=== PATIENT | male | born 1995 | race Caucasian/White ===

== ENCOUNTER 2017-11-06 00:49 | Emergency (ER) | payer MEDICAID, OTHER ==
[~2017-11-06] VITALS: Ht 177.8 cm; Wt 108.9 kg
--- OUTSIDE RECORDS SUMMARY | 2017-11-06 00:59 | XMS REPORT | Clinical Summary ---
Author Author Admin, LAMBERT Organization [facility] Address Unknown Phone Unavailable Allergies, Adverse Reactions, Alerts Allergy Name Reaction Description Start Date Severity Status Provider MYCINS * Critical Active Иван Mooney MD BENADRYL Critical Active Hector Love MD TYLENOL Critical Active Hector Love MD PHENERGAN Critical Active Hector Love MD ROCEPHIN Critical Active Hector Love MD Conditions or Problems Problem Name Problem Code Onset Date Status Entry Date Provider Comment Standard Description Annotate HYPERTENSION 401.9 Active Hector Love MD Unspecified essential hypertension FH DIABETES V18.0 Resolved Hector Love MD Family history of diabetes mellitus BRONCHITIS, ACUTE 466.0 Resolved Hector Love MD Acute bronchitis KNEE SPRAIN, LEFT 844.9 Resolved Hector Love MD Sprain of unspecified site of knee and leg U R I 465.9 Resolved Hector Love MD Acute upper respiratory infections of unspecified site LIVER REPLACED BY TRANSPLANT V42.7 Active Lucinda Baez Liver replaced by transplant COUGH 786.2 Resolved Hector Love MD Cough COUGH 786.2 Resolved Hector Love MD Cough COSTOCHRONDRITIS 733.6 Resolved Hector Love MD Tietze's disease SINUSITIS, ACUTE 461.9 Resolved Hector Love MD Acute sinusitis, unspecified FEVER UNSPECIFIED 780.60 Resolved Hector Love MD Fever, unspecified Tinea corporis 110.5 Resolved Hector Love MD Dermatophytosis of the body Sinusitis 461.9 Resolved Hector Love MD Acute sinusitis, unspecified Fever 780.60 07/19/2013 Resolved Hector Love MD Fever, unspecified Memory impairment 780.9 Inactive Hector Love MD Other general symptoms Memory loss 780.93 Active Hector Love MD Memory loss Sinusitis, frontal, acute 461.1 Resolved Hector Love MD Acute frontal sinusitis NEED FOR PROPHYLACTIC VACCINATION WITH STREPTOCOCCUS PNEUMONIAE (PNEUMOCOCCUS) AND INFLUENZA V06.6 Resolved Hector Love MD Need for prophylactic vaccination and inoculation against Streptococcus pneumoniae [pneumococcus] and influenza Gastroenteritis, viral, acute 008.8 Resolved Martha Montejo APRN Intestinal infection due to other organism, not elsewhere classified Bronchitis 490 Resolved Hector Love MD Bronchitis, not specified as acute or chronic Pharyngitis 462 Resolved Hector Love MD Acute pharyngitis Ingrown toenail 703.0 Resolved Hector Love MD Ingrowing nail Ingrown toenail, right 703.0 Resolved Hector Love MD Ingrowing nail Alopecia 704.00 Active Hector Love MD Alopecia, unspecified Upper respiratory infection, viral 465.9 Active Hector Love MD Acute upper respiratory infections of unspecified site Pharyngitis 462 Active Иван Mooney MD Acute pharyngitis FH DIABETES ICD-V18.0 Inactive Hector Love MD BRONCHITIS, ACUTE ICD-466.0 Inactive Hector Love MD KNEE SPRAIN, LEFT ICD-844.9 Inactive Hector Love MD U R I ICD-465.9 Inactive Hector Love MD COUGH ICD-786.2 Inactive Hector Love MD COSTOCHRONDRITIS ICD-733.6 Inactive Hector Love MD SINUSITIS, ACUTE ICD-461.9 Inactive Hector Love MD FEVER UNSPECIFIED ICD-780.60 Inactive Hector Love MD Tinea corporis ICD-110.5 Inactive Hector Love MD Sinusitis ICD-461.9 Inactive Hector Love MD Fever ICD-780.60 Inactive Hector Love MD Sinusitis, frontal, acute ICD-461.1 Inactive Hector Love MD NEED FOR PROPHYLACTIC VACCINATION WITH STREPTOCOCCUS PNEUMONIAE (PNEUMOCOCCUS) AND INFLUENZA ICD-V06.6 Inactive Hector Love MD Gastroenteritis, viral, acute ICD-008.8 Inactive Martha Montejo APRN Bronchitis ICD-490 Inactive Hector Love MD 2014 Pharyngitis ICD-462 Inactive Hector Love MD Ingrown toenail ICD-703.0 Inactive Hector Love MD Ingrown toenail, right ICD-703.0 Nils Love MD Medication List Medication Instructions Start Date Stop Date Generic Name NDC Status Provider Patient Instruction AMOXICILLIN 500 MG TABS Take two tablets by mouth every 12 hours for 10 days AMOXICILLIN 09162588751 Active Иван Mooney MD Active VITAMIN C 500 MG CHEW TAB ASCORBIC ACID 14853376879 Active Иван Mooney MD Active PREDNISONE 20 MG TAB 2 po qd x 4 days PREDNISONE 87393598583 No Longer Active Hector Love MD Active HYDROCODONE-ACETAMINOPHEN 5-325 MG TABS 1/2 to 1 po q 4 hours prn pain 11/06 HYDROCODONE-ACETAMINOPHEN 84344392309 No Longer Active Hector Love MD Active FLONASE ALLERGY RELIEF 50 MCG/ACT NASAL SUSP 2 spray each nostril daily prn allergies FLUTICASONE PROPIONATE 33754968309 Active Hector Love MD Active AUGMENTIN 875-125 MG TAB 1 po BID x 10 days AMOXICILLIN-POT CLAVULANATE 89025386248 No Longer Active Hector Love MD Active FLONASE ALLERGY RELIEF 50 MCG/ACT NASAL SUSP 2 sprays each nostril daily PRN allergies FLUTICASONE PROPIONATE 44175395980 No Longer Active Hector Love MD Active AMOXICILLIN 500 MG CAPS 1 cap by mouth three times a day AMOXICILLIN 49184441544 No Longer Active Jillina Frazell RADHA Active KEFLEX 500 MG CAP 1 tab po tid CEPHALEXIN 44422486034 No Longer Active Jillina Frazell [employer] Active AMOXICILLIN 500 MG TABS 2 tabs twice a day for 10 days AMOXICILLIN 88201444730 No Longer Active Jillina Frazell [employer] Active ZYRTEC ALLERGY 10 MG CAPS 1 po qd CETIRIZINE HCL 29951144229 Active Hector Love MD Active PROGRAF 1 MG CAPS 2 tabs po bid TACROLIMUS 07017110034 Active Hector Love MD Active ZOFRAN 4 MG TABS 1 po q6hr PRN Nausea ONDANSETRON HCL 06270010842 No Longer Active Ramona Diggs LPN Active AMOXICILLIN 500 MG CAPS 2 po BID x 10 days AMOXICILLIN 39426164362 No Longer Active Martha Montejo APRN Active AUGMENTIN 875-125 MG TAB 1 tab by mouth twice daily with food AMOXICILLIN-POT CLAVULANATE 26367373117 No Longer Active Hector Love MD Active LEVAQUIN 500 MG TABS 1 pill by mouth daily LEVOFLOXACIN 47295278687 No Longer Active Jen Crystal MD PhD Active LISINOPRIL 5 MG TABS 1.5 tab qd LISINOPRIL 61147090338 Active Jen Crystal MD PhD Active KETOCONAZOLE 2 % CREA apply twice a day to rash KETOCONAZOLE 97757430587 No Longer Active Hector Love MD Active AUGMENTIN 875-125 MG TAB 1 tab by mouth twice daily with food AMOXICILLIN-POT CLAVULANATE 88784696673 No Longer Active Иван Mooney MD Active LOTRISONE 0.05-1 % CREAM Apply twice a day to affected area 07/19 CLOTRIMAZOLE-BETAMETHASONE 61554868963 No Longer Active Иван Mooney MD Active FEXOFENADINE HCL 180 MG TABS 1 Daily FEXOFENADINE HCL 75479762820 No Longer Active Hector Love MD Active PROGRAF 0.5 MG CAPS Take one by mouth daily with 1 mg TACROLIMUS 88962462541 No Longer Active Hector Love MD Active AMOXICILLIN 500 MG CAPS 2 po BID x 10 days AMOXICILLIN 82982438138 No Longer Active Hector Love MD Active RAPAMUNE 1 MG TABS 3 tabs in the am SIROLIMUS 70822884948 No Longer Active Hector Love MD Active AMOXICILLIN 500 MG CAPS 2 po BID x 10 days AMOXICILLIN 73948702434 No Longer Active Hector Love MD Active LORTAB 5 5-500 MG TABS 1/2 to 1 tablet by mouth every 4 hours as needed for pain HYDROCODONE-ACETAMINOPHEN 57499475488 No Longer Active Hector Love MD Active FLUTICASONE PROPIONATE 50 MCG/ACT SUSP INSTILL 2 SPRAYS IN EACH NOSTRIL Q D FLUTICASONE PROPIONATE 00783879153 No Longer Active Hector Love MD Active PROGRAF 1 MG CAPS 1 po bid TACROLIMUS 76606002583 No Longer Active Hector Love MD Active AMOXICILLIN 875 MG TABS 1 tab by mouth twice daily AMOXICILLIN 99707438688 No Longer Active Hector Love MD Active AMOXICILLIN 500 MG CAPS 2 po BID x 10 days AMOXICILLIN 91106752360 No Longer Active Hector Love MD Active AUGMENTIN 875-125 MG TAB 1 tab by mouth twice daily with food AMOXICILLIN-POT CLAVULANATE 78132940417 No Longer Active Hector Love MD Active AZITHROMYCIN 250 MG TABS 2 po qd x 1 day, then 1 po qd x 4 days AZITHROMYCIN 83077168274 No Longer Active Hector Love MD Active CETIRIZINE HCL 10 MG TABS 1 PO Q D CETIRIZINE HCL 95942493314 No Longer Active Waleska Mammoth Active PROGRAF 1 MG CAPS 1 po bid PROGRAF 1 MG CAPS 265182 TACROLIMUS Inactive FLUTICASONE PROPIONATE 50 MCG/ACT SUSP INSTILL 2 SPRAYS IN EACH NOSTRIL Q D FLUTICASONE PROPIONATE 50 MCG/ACT SUSP 1091215 FLUTICASONE PROPIONATE Inactive LORTAB 5 5-500 MG TABS 1/2 to 1 tablet by mouth every 4 hours as needed for pain LORTAB 5 5-500 MG TABS HYDROCODONE- ACETAMINOPHEN Inactive RAPAMUNE 1 MG TABS 3 tabs in the am RAPAMUNE 1 MG TABS 052620 SIROLIMUS Inactive PROGRAF 0.5 MG CAPS Take one by mouth daily with 1 mg PROGRAF 0.5 MG CAPS 221693 TACROLIMUS Inactive FEXOFENADINE HCL 180 MG TABS 1 Daily FEXOFENADINE HCL 180 MG TABS 132661 FEXOFENADINE HCL Inactive LOTRISONE 0.05-1 % CREAM Apply twice a day to affected area 07/19 LOTRISONE 0.05-1 % CREAM 988751 CLOTRIMAZOLE-BETAMETHASONE Inactive KETOCONAZOLE 2 % CREA apply twice a day to rash KETOCONAZOLE 2 % CREA 295342 KETOCONAZOLE Inactive AUGMENTIN 875-125 MG TAB 1 tab by mouth twice daily with food AUGMENTIN 875-125 MG TAB 450488 AMOXICILLIN-POT CLAVULANATE Inactive ZOFRAN 4 MG TABS 1 po q6hr PRN Nausea ZOFRAN 4 MG TABS 944391 ONDANSETRON HCL Inactive AMOXICILLIN 500 MG TABS 2 tabs twice a day for 10 days AMOXICILLIN 500 MG TABS 299665 AMOXICILLIN Inactive FLONASE ALLERGY RELIEF 50 MCG/ACT NASAL SUSP 2 sprays each nostril daily PRN allergies FLONASE ALLERGY RELIEF 50 MCG/ACT NASAL SUSP 1362862 FLUTICASONE PROPIONATE Inactive HYDROCODONE-ACETAMINOPHEN 5-325 MG TABS 1/2 to 1 po q 4 hours prn pain 11/06 HYDROCODONE-ACETAMINOPHEN 5-325 MG TABS 218991 HYDROCODONE- ACETAMINOPHEN Inactive AMOXICILLIN 500 MG CAPS 2 po BID x 10 days AMOXICILLIN 500 MG CAPS 030295 AMOXICILLIN Inactive AMOXICILLIN 875 MG TABS 1 tab by mouth twice daily AMOXICILLIN 875 MG TABS 423451 AMOXICILLIN Inactive AMOXICILLIN 500 MG CAPS 2 po BID x 10 days AMOXICILLIN 500 MG CAPS 809622 AMOXICILLIN Inactive AMOXICILLIN 500 MG CAPS 2 po BID x 10 days AMOXICILLIN 500 MG CAPS 141475 AMOXICILLIN Inactive AUGMENTIN 875-125 MG TAB 1 tab by mouth twice daily with food AUGMENTIN 875-125 MG TAB 851660 AMOXICILLIN-POT CLAVULANATE Inactive LEVAQUIN 500 MG TABS 1 pill by mouth daily LEVAQUIN 500 MG TABS 136577 LEVOFLOXACIN Inactive AMOXICILLIN 500 MG CAPS 2 po BID x 10 days AMOXICILLIN 500 MG CAPS 580290 AMOXICILLIN Inactive AMOXICILLIN 500 MG CAPS 1 cap by mouth three times a day AMOXICILLIN 500 MG CAPS 842661 AMOXICILLIN Inactive AUGMENTIN 875-125 MG TAB 1 po BID x 10 days AUGMENTIN 875-125 MG TAB 501010 AMOXICILLIN-POT CLAVULANATE Inactive PREDNISONE 20 MG TAB 2 po qd x 4 days PREDNISONE 20 MG TAB 051133 PREDNISONE Inactive Advance Directives Directive Description Start Date PERMISSION TO SHARE Immunizations Vaccine Administration Date Value Standard Description Seasonal influenza vaccine, injectable, preservative free, for > 3 years old ( Afluria, FluLaval, Fluzone, Fluvirin, Fluarix, Agriflu(>=18 yo)) Fluzone preservative free (>=3 yrs.) [[id number]] Influenza, seasonal, injectable, preservative free Adacel (Tetanus, reduced Diphtheria, and acellular Pertussis Immunization) Adacel [DGL866] tetanus toxoid, reduced diphtheria toxoid, and acellular pertussis vaccine, adsorbed DPT immunization #5 DTaP oral polio vaccine (OPV) #4 Historical poliovirus vaccine, unspecified formulation MMR (measles, mumps, rubella) virus immunization #2 MMR DPT immunization #4 DTaP Hemophilus influenza B immunization #4 Hibtitre Haemophilus influenzae type b vaccine, conjugate unspecified formulation MMR (measles, mumps, rubella) virus immunization #1 MMR Hemophilus influenza B immunization #3 Hibtitre Haemophilus influenzae type b vaccine, conjugate unspecified formulation oral polio vaccine (OPV) #3 Historical poliovirus vaccine, unspecified formulation DPT immunization #3 DPT hepatitis B vaccine #3 Historical hepatitis B vaccine, unspecified formulation Hemophilus influenza B immunization #2 Hibtitre Haemophilus influenzae type b vaccine, conjugate unspecified formulation oral polio vaccine (OPV) #2 Historical poliovirus vaccine, unspecified formulation DPT immunization #2 DPT hepatitis B vaccine #2 given Historical hepatitis B vaccine, unspecified formulation Hemophilus influenza B immunization #1 Hibtitre Haemophilus influenzae type b vaccine, conjugate unspecified formulation oral polio vaccine (OPV) #1 Historical poliovirus vaccine, unspecified formulation DPT immunization #1 DPT hepatitis B vaccine #1 given Historical hepatitis B vaccine, unspecified formulation Vital Signs Date Name Value Unit Range Description blood pressure, diastolic - 8462-4 75 mm[Hg] BP [place] blood pressure, systolic - 8480-6 127 mm[Hg] BP sys pulse rate E&M - 8867-4 90 /min Heart rate temperature E&M 97.0 [degF] Body temperature weight E&M - 3141-9 233.5 [lb_av] Weight Measured blood pressure, diastolic - 8462-4 80 mm[Hg] BP [place] blood pressure, systolic - 8480-6 136 mm[Hg] BP sys pulse rate E&M - 8867-4 90 /min Heart rate temperature E&M 97.4 [degF] Body temperature weight E&M - 3141-9 237.6 [lb_av] Weight Measured Diagnostic Results Date Name Value Unit Range Description Lab Report: Thyroid Stimulating Hormone (L), Free Thyroxine (L) - Chemistry TSH 2.88 m[iU]/mL 0.36-3.74 thyroxine, serum, free 0.97 ng/dL 0.76-1.46 Encounters Code Encounter Date Provider Facility CPT-49450 Level 3 Est. Patient 16:31:04 CDT Иван Mooney MD [facility] CPT-12598 Level 4 Est. Patient 12:02:18 CDT Hector Love MD [facility] CPT-53752 Level 3 Est. Patient 16:14:45 CDT Hector Love MD [facility] CPT-17973 Level 3 Est. Patient 16:53:35 CDT Иван Mooney MD [facility] CPT-41730 Level 3 Est. Patient 15:57:13 CDT Martha Montejo RADHA [facility] CPT-97435 Level 3 Est. 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 Patient 14:50:45 CDT Hector Love MD [facility] CPT-73929 Level 3 Est. Patient 21:17:30 CDT Jen Crystal MD PhD [facility] CPT-12199 Level 3 Est. Patient 09:32:55 CDT Hector Love MD [facility] CPT-87802 Level 3 Est. Patient 15:11:08 B[employer]DOZER PRESS OPERATOR Иван Mooney MD [facility] CPT-21969 Level 3 Est. Patient 16:38:53 B[employer]DOZER PRESS OPERATOR Hector Loev MD [facility] CPT-94290 Level 3 Est. Patient 15:46:05 CDT Hector Love MD [facility] CPT-72645 Level 3 Est. Patient 13:59:39 CDT Hector Love MD [facility] CPT-09170 Level 3 Est. Patient 14:44:46 B[employer]DOZER PRESS OPERATOR Hector Love MD [facility] CPT-02319 Level 3 Est. Patient 17:12:27 CDT Hector Love MD [facility] CPT-67657 Level 3 Est. Patient 15:30:32 CDT Hector Love MD [facility] CPT-96392 Level 3 Est. Patient 14:24:52 CDT Иван Mooney MD [facility] CPT-44844 Level 3 Est. Patient 14:08:38 B[employer]DOZER PRESS OPERATOR Hector Love MD [facility] Procedures Code Procedure Name Date Entry Date Standard Description CPT-000 Give Appropriate Flu Vaccine 16:22:23 BULLDOZER PRESS OPERATOR CPT-55502 Free T4 - LAB USE ONLY 11:38:58 CDT CPT-40229 TSH - LAB USE ONLY 11:38:58 CDT CPT-37931 Venipuncture Draw Fee 11:38:58 CDT CPT-01587 Fluzone Quadrivalent Intramuscular Suspension 0.5 ML 16: 12:26 B[employer]DOZER PRESS OPERATOR CPT-18308 Immunization Single Admin 16:12:26 BULLDOZER PRESS OPERATOR CPT-J0561 Bicillin LA 1,200,000 u (PCN G Benzathine) 16:40:23 CDT CPT-57397 Abx/Therapy Injection 16:40:22 CDT CPT-J0561 Bicillin LA 1,200,000 u (PCN G Benzathine) 16:15:35 CDT CPT-15492 Immunization Single Admin 16:11:28 BULLDOZER PRESS OPERATOR CPT-57780 Fluzone Quadrivalent Intramuscular Suspension 0.5 ML 16: 11:28 BULLDOZER PRESS OPERATOR CPT-59398 Administration single or combination vaccine inc oral 13 :57:23 CDT CPT-78491 Menactra Intramuscular Injectable 13:57:23 CDT CPT-36377 First Vx Component - Ix admin via ID IM or jet inj without physician counseling 16:42:17 BULLDOZER PRESS OPERATOR CPT-96186 Fluzone preservative free (>=3 yrs.) 16:42:17 BULLDOZER PRESS OPERATOR 06/03 CPT-73209 Venipuncture Draw Fee 16:29:01 CDT CPT-76292 Chest 2V Frontal and Lat 16:23:56 CDT CPT-43085 Administration single or combination vaccine inc oral 13 :39:17 BULLDOZER PRESS OPERATOR CPT-01934 Tdap 13:39:17 BULLDOZER PRESS OPERATOR
--- OUTSIDE RECORDS SUMMARY | 2017-11-06 01:00 | XMS REPORT | Clinical Summary ---
Author Author Admin, LAMBERT Organization [facility] [employer] Address Unknown Phone Unavailable Allergies, Adverse Reactions, [...] Gastroenteritis, viral, acute 008.8 Resolved Martha Montejo VOICE STUDIES DIRECTOR Intestinal infection due to other organism, not [...] 462 Active Иван Mooney MD Acute pharyngitis Pre employment physical examination V70.0 Active Manish Castrejon VOICE STUDIES DIRECTOR Routine general medical examination at a health care facility Exposure to mononucleosis V01.79 Active Manish Castrejon VOICE STUDIES DIRECTOR Contact with or exposure to other viral diseases FH DIABETES ICD-V18.0 Inactive Hector Love MD 2012/10/ 15 BRONCHITIS, ACUTE ICD-466.0 Inactive Hector Love MD [...] Love MD Ingrown toenail, right ICD-703.0 Nils Hernandezlow MD Medication List Medication Instructions Start Date Stop Date Generic Name NDC Status Provider Patient Instruction AMOXICILLIN 500 MG TABS Take two tablets by mouth every 12 hours for 10 days AMOXICILLIN 73538464535 No Longer Active Иван Mooney MD Active VITAMIN C 500 MG CHEW TAB ASCORBIC ACID 36220151137 Active Иван Mooney MD Active PREDNISONE 20 MG TAB 2 po qd x 4 days PREDNISONE 54122616305 No Longer Active Hector Love MD Active HYDROCODONE-ACETAMINOPHEN 5-325 MG TABS 1/2 to 1 po q 4 hours prn pain 11/06 HYDROCODONE-ACETAMINOPHEN 80560343930 No Longer Active Hector Love MD Active FLONASE ALLERGY RELIEF 50 MCG/ACT NASAL SUSP 2 spray each nostril daily prn allergies FLUTICASONE PROPIONATE 49736713102 Active Hector Love MD Active AUGMENTIN 875-125 MG TAB 1 po BID x 10 days AMOXICILLIN-POT CLAVULANATE 29856177214 No Longer Active Hector Love MD Active FLONASE ALLERGY RELIEF 50 MCG/ACT NASAL SUSP 2 sprays each nostril daily PRN allergies FLUTICASONE PROPIONATE 85116794555 No Longer Active Hector Love MD Active AMOXICILLIN 500 MG CAPS 1 cap by mouth three times a day AMOXICILLIN 07908338857 No Longer Active Jillina Frazell VOICE STUDIES DIRECTOR Active KEFLEX 500 MG CAP 1 tab po tid CEPHALEXIN 49735897758 No Longer Active Jillina Frazell VOICE STUDIES DIRECTOR Active AMOXICILLIN 500 MG TABS 2 tabs twice a day for 10 days AMOXICILLIN 21503701369 No Longer Active Jillina Frazell VOICE STUDIES DIRECTOR Active ZYRTEC ALLERGY 10 MG CAPS 1 po qd CETIRIZINE HCL 75447736443 Active Hector Love MD Active PROGRAF 1 MG CAPS 2 tabs po bid TACROLIMUS 06296829690 Active Hector Love MD Active ZOFRAN 4 MG TABS 1 po q6hr PRN Nausea ONDANSETRON HCL 21813622262 No Longer Active Ramona Diggs LPN Active AMOXICILLIN 500 MG CAPS 2 po BID x 10 days AMOXICILLIN 65673525782 No Longer Active Martha Montejo RADHA Active AUGMENTIN 875-125 MG TAB 1 tab by mouth twice daily with food AMOXICILLIN-POT CLAVULANATE 66812637733 No Longer Active Hector Love MD Active LEVAQUIN 500 MG TABS 1 pill by mouth daily LEVOFLOXACIN 58107621229 No Longer Active Jen Crystal MD PhD Active LISINOPRIL 5 MG TABS 1.5 tab qd LISINOPRIL 91550251880 Active Jen Crystal MD PhD Active KETOCONAZOLE 2 % CREA apply twice a day to rash KETOCONAZOLE 40384320263 No Longer Active Hector Love MD Active AUGMENTIN 875-125 MG TAB 1 tab by mouth twice daily with food AMOXICILLIN-POT CLAVULANATE 14675203739 No Longer Active Иван Mooney MD Active LOTRISONE 0.05-1 % CREAM Apply twice a day to affected area 07/19 CLOTRIMAZOLE-BETAMETHASONE 71629507891 No Longer Active Иван Mooney MD Active FEXOFENADINE HCL 180 MG TABS 1 Daily FEXOFENADINE HCL 03532383961 No Longer Active Hector Love MD Active PROGRAF 0.5 MG CAPS Take one by mouth daily with 1 mg TACROLIMUS 39562069256 No Longer Active Hector Love MD Active AMOXICILLIN 500 MG CAPS 2 po BID x 10 days AMOXICILLIN 09839190906 No Longer Active Hector Love MD Active RAPAMUNE 1 MG TABS 3 tabs in the am SIROLIMUS 84390711375 No Longer Active Hector Love MD Active AMOXICILLIN 500 MG CAPS 2 po BID x 10 days AMOXICILLIN 46347752373 No Longer Active Hetcor Love MD Active LORTAB 5 5-500 MG TABS 1/2 to 1 tablet by mouth every 4 hours as needed for pain HYDROCODONE-ACETAMINOPHEN 01596316311 No Longer Active Hector Love MD Active FLUTICASONE PROPIONATE 50 MCG/ACT SUSP INSTILL 2 SPRAYS IN EACH NOSTRIL Q D FLUTICASONE PROPIONATE 89233814913 No Longer Active Hector Love MD Active PROGRAF 1 MG CAPS 1 po bid TACROLIMUS 07522451923 No Longer Active Hector Love MD Active AMOXICILLIN 875 MG TABS 1 tab by mouth twice daily AMOXICILLIN 28771184195 No Longer Active Hector Love MD Active AMOXICILLIN 500 MG CAPS 2 po BID x 10 days AMOXICILLIN 28959436399 No Longer Active Hector Love MD Active AUGMENTIN 875-125 MG TAB 1 tab by mouth twice daily with food AMOXICILLIN-POT CLAVULANATE 87252857008 No Longer Active Hector Love MD Active AZITHROMYCIN 250 MG TABS 2 po qd x 1 day, then 1 po qd x 4 days AZITHROMYCIN 14142693167 No Longer Active Hector Love MD Active CETIRIZINE HCL 10 MG TABS 1 PO Q D CETIRIZINE HCL 28569440701 No Longer Active [place] Active PROGRAF 1 MG CAPS 1 po bid PROGRAF 1 MG CAPS 254754 TACROLIMUS Inactive FLUTICASONE PROPIONATE 50 MCG/ACT SUSP INSTILL 2 SPRAYS IN EACH NOSTRIL Q D FLUTICASONE PROPIONATE 50 MCG/ACT SUSP 2072501 FLUTICASONE PROPIONATE Inactive LORTAB 5 5-500 MG TABS 1/2 to 1 tablet by mouth every 4 hours as needed for pain LORTAB 5 5-500 MG TABS HYDROCODONE- ACETAMINOPHEN Inactive RAPAMUNE 1 MG TABS 3 tabs in the am RAPAMUNE 1 MG TABS 933397 SIROLIMUS Inactive PROGRAF 0.5 MG CAPS Take one by mouth daily with 1 mg PROGRAF 0.5 MG CAPS 059389 TACROLIMUS Inactive FEXOFENADINE HCL 180 MG TABS 1 Daily FEXOFENADINE HCL 180 MG TABS 993967 FEXOFENADINE HCL Inactive LOTRISONE 0.05-1 % CREAM Apply twice a day to affected area 07/19 LOTRISONE 0.05-1 % CREAM 448449 CLOTRIMAZOLE-BETAMETHASONE Inactive KETOCONAZOLE 2 % CREA apply twice a day to rash KETOCONAZOLE 2 % CREA 118905 KETOCONAZOLE Inactive AUGMENTIN 875-125 MG TAB 1 tab by mouth twice daily with food AUGMENTIN 875-125 MG TAB 710870 AMOXICILLIN-POT CLAVULANATE Inactive ZOFRAN 4 MG TABS 1 po q6hr PRN Nausea ZOFRAN 4 MG TABS 315393 ONDANSETRON HCL Inactive AMOXICILLIN 500 MG TABS 2 tabs twice a day for 10 days AMOXICILLIN 500 MG TABS 569648 AMOXICILLIN Inactive FLONASE ALLERGY RELIEF 50 MCG/ACT NASAL SUSP 2 sprays each nostril daily PRN allergies FLONASE ALLERGY RELIEF 50 MCG/ACT NASAL SUSP 5961703 FLUTICASONE PROPIONATE Inactive HYDROCODONE-ACETAMINOPHEN 5-325 MG TABS 1/2 to 1 po q 4 hours prn pain 11/06 HYDROCODONE-ACETAMINOPHEN 5-325 MG TABS 294169 HYDROCODONE- ACETAMINOPHEN Inactive AMOXICILLIN 500 MG CAPS 2 po BID x 10 days AMOXICILLIN 500 MG CAPS 464400 AMOXICILLIN Inactive AMOXICILLIN 875 MG TABS 1 tab by mouth twice daily AMOXICILLIN 875 MG TABS 771861 AMOXICILLIN Inactive AMOXICILLIN 500 MG CAPS 2 po BID x 10 days AMOXICILLIN 500 MG CAPS 950729 AMOXICILLIN Inactive AMOXICILLIN 500 MG CAPS 2 po BID x 10 days AMOXICILLIN 500 MG CAPS 969158 AMOXICILLIN Inactive AUGMENTIN 875-125 MG TAB 1 tab by mouth twice daily with food AUGMENTIN 875-125 MG TAB 400879 AMOXICILLIN-POT CLAVULANATE Inactive LEVAQUIN 500 MG TABS 1 pill by mouth daily LEVAQUIN 500 MG TABS 066447 LEVOFLOXACIN Inactive AMOXICILLIN 500 MG CAPS 2 po BID x 10 days AMOXICILLIN 500 MG CAPS 717165 AMOXICILLIN Inactive AMOXICILLIN 500 MG CAPS 1 cap by mouth three times a day AMOXICILLIN 500 MG CAPS 171563 AMOXICILLIN Inactive AUGMENTIN 875-125 MG TAB 1 po BID x 10 days AUGMENTIN 875-125 MG TAB 501821 AMOXICILLIN-POT CLAVULANATE Inactive PREDNISONE 20 MG TAB 2 po qd x 4 days PREDNISONE 20 MG TAB 029421 PREDNISONE Inactive AMOXICILLIN 500 MG TABS Take two tablets by mouth every 12 hours for 10 days AMOXICILLIN 500 MG TABS 013858 AMOXICILLIN Inactive Advance Directives Directive Description Start Date PERMISSION TO SHARE Immunizations Vaccine Administration Date Value Standard Description Seasonal influenza vaccine, injectable, preservative free, for > 3 years old ( Afluria, FluLaval, Fluzone, Fluvirin, Fluarix, Agriflu(>=18 yo)) Fluzone preservative free (>=3 yrs.) [[id number]] Influenza, seasonal, injectable, preservative free Adacel (Tetanus, reduced Diphtheria, and acellular Pertussis Immunization) Adacel [[id number]] tetanus toxoid, reduced diphtheria toxoid, and acellular [...] Value Unit Range Description blood pressure, diastolic 88 mm[Hg] BP [place] blood pressure, systolic 128 mm[Hg] BP sys height E&M 71 [in_us] Bdy height pulse rate E&M 98 /min Heart rate temperature E&M 98.8 [degF] Body temperature weight E&M 241.5 [lb_av] Weight Measured blood pressure, diastolic 79 mm[Hg] BP [place] blood pressure, systolic 124 mm[Hg] BP sys pulse rate E&M 90 /min Heart rate temperature E&M 98.9 [degF] Body temperature weight E&M 242.19 [lb_av] Weight Measured blood pressure, diastolic 93 mm[Hg] BP [place] blood pressure, systolic 147 mm[Hg] BP sys pulse rate E&M 104 /min Heart rate temperature E&M 98.5 [degF] Body temperature weight E&M 238 [lb_av] Weight Measured blood pressure, diastolic 75 mm[Hg] BP [place] blood pressure, systolic 127 mm[Hg] BP sys pulse rate E&M 90 /min Heart rate temperature E&M 97.0 [degF] Body temperature weight E&M 233.5 [lb_av] Weight Measured Diagnostic Results Date Name Value Unit Range Description Lab Report: CBC W/DIFF, Comp. Metabolic Panel, Magnesium, Phos, Lipid Panel - Chemistry sodium, serum 137 mmol/L 858-484 7429/08/14 carbon dioxide, venous blood 29.7 mmol/L 21.0-32.0 potassium, serum 4.3 mmol/L 3.5-5.2 chloride, serum 99 mmol/L 98-107 blood glucose 123 mg/dL 65-110 urea nitrogen, blood 12 mg/dL 7-18 creatinine, serum 0.84 mg/dL 0.60-1.30 alanine aminotransferase (SGPT), serum 48 U/L 12-78 aspartate aminotransferase (SGOT), serum 26 U/L 15-37 calcium, serum 9.4 mg/dL 8.5-10.1 bilirubin, serum, total 1.60 mg/dL 0.00-1.00 cholesterol, serum 141 mg/dL 396-340 9964/08/14 triglyceride, serum, fasting 54 mg/dL 30-200 HDL cholesterol, serum 50 mg/dL 32-60 LDL cholesterol, serum 80 mg/dL 0-130 Lab Report: CBC W/DIFF, Comp. Metabolic Panel, Magnesium, Phos, Lipid Panel - Hematology leukocyte count, blood 7.8 10^3/MM^3 10*3/mm3 4.6-10.2 neutrophils as percent of blood leukocytes 54.6 % 42.2-75.2 monocytes as percent of blood leukocytes 7.6 % 1.7-9.3 lymphocytes as percent of blood leukocytes 32.5 % 20.5-51.1 erythrocyte (RBC) count 5.64 10^6/MM^3 10*6/mm3 4.50-6.50 hemoglobin, blood 16.7 g/dL 14.0-18.0 hematocrit, blood 48.8 % 40.0-54.0 mean corpuscular volume, RBC 87 fL 80-97 mean corpuscular hemoglobin, RBC 29.7 pg 27.0-31.2 mean corpuscular hemoglobin concentration, RBC 34.3 G/DL % 31.8- 35.4 red blood cell distribution width 12.5 % 13.0-18.0 platelet count 241 10^3/MM^3 10*3/mm3 142-424 Lab Report: RapidStrep Rflx/Cx - Lab Microbial identification kit, rapid strep method Negative-Throat Culture to Follow Negative Lab Report: Thyroid Stimulating Hormone (L), Free Thyroxine (L) - Chemistry TSH 2.88 m[iU]/mL 0.36-3.74 thyroxine, serum, free 0.97 ng/dL 0.76-1.46 Lab Report: UADIP W/MICRO, AUTO - Chemistry protein, total urine random Trace mg/dL Negative RBC, urine, dipstick Trace-intact Negative Lab Report: UADIP W/MICRO, AUTO - Urinalysis urobilinogen, urine, semiquantitative (dipstick) 0.2 E.U./dL Normal leukocyte esterase, urine, by dipstick Negative Negative nitrite, urine, semiquantitative Negative Negative glucose, urine, semiquantitative Negative Negative ketones, urine, by test strip Negative Negative bilirubin, urine Negative Negative urine color Yellow Colorless;Lightyellow;Straw;Yellow appearance, urine Clear Clear specific gravity, urine 1.025 1.000-1.030 pH, urine, semiquantitative 6.0 5.0-8.5 Encounters Code Encounter Date Provider Facility CPT-61013 Level 3 Est. Patient 16:06:03 CDT Manish Castrejon [facility] CPT-62839 Level 3 Est. Patient 09:57:24 CDT Manish Castrejon [facility] CPT-10635 Level 3 Est. Patient 16:31:04 CDT Иван Mooney MD [facility] CPT-80248 Level 4 Est. Patient 12:02:18 CDT Hector Love MD [facility] CPT-57795 Level 3 Est. Patient 16:14:45 CDT Hector Love MD [facility] CPT-33997 Level 3 Est. Patient 16:53:35 CDT Иван Mooney MD [facility] CPT-63450 Level 3 Est. Patient 15:57:13 CDT Martha Montejo [facility] CPT-49047 Level 3 Est. Patient 14:30:47 CONSULTING SOFTWARE ENGINEER Hector Love MD [facility] CPT-92548 Level 3 Est. Patient 14:50:45 CDT Hector Love MD [facility] CPT-20716 Level 3 Est. Patient 21:17:30 CDT Jen Crystal MD, PhD [facility] CPT-33086 Level 3 Est. Patient 09:32:55 CDT Hector Love MD [facility] CPT-84866 Level 3 Est. Patient 15:11:08 CONSULTING SOFTWARE ENGINEER Иван Mooney MD [facility] CPT-11478 Level 3 Est. Patient 16:38:53 CONSULTING SOFTWARE ENGINEER Hector Love MD [facility] CPT-12067 Level 3 Est. Patient 15:46:05 CDT Hector Love MD [facility] CPT-35625 Level 3 Est. Patient 13:59:39 CDT Hector Love MD [facility] CPT-86483 Level 3 Est. Patient 14:44:46 CONSULTING SOFTWARE ENGINEER Hector Love MD [facility] CPT-53377 Level 3 Est. Patient 17:12:27 CDT Hector Love MD [facility] CPT-80534 Level 3 Est. Patient 15:30:32 CDT Hector Love MD [facility] CPT-92594 Level 3 Est. Patient 14:24:52 CDT Иван Mooney MD [facility] CPT-70658 Level 3 Est. Patient 14:08:38 CONSULTING SOFTWARE ENGINEER Hector Love MD [facility] Procedures Code Procedure Name Date Entry Date Standard Description CPT-89088 Venipuncture Draw Fee 16:18:26 CDT CPT-11719 TB Skin Test 09:57:25 CDT CPT-000 Give Appropriate Flu Vaccine 16:22:23 CONSULTING SOFTWARE ENGINEER CPT-24831 Free T4 - LAB USE ONLY 11:38:58 CDT CPT-22318 TSH - LAB USE ONLY 11:38:58 CDT CPT-66313 Venipuncture Draw Fee 11:38:58 CDT CPT-99958 Fluzone Quadrivalent Intramuscular Suspension 0.5 ML 16: 12:26 CONSULTING SOFTWARE ENGINEER CPT-15164 Immunization Single Admin 16:12:26 CONSULTING SOFTWARE ENGINEER CPT-J0561 Bicillin LA 1,200,000 u (PCN G Benzathine) 16:40:23 CDT CPT-75104 Abx/Therapy Injection 16:40:22 CDT CPT-J0561 Bicillin LA 1,200,000 u (PCN G Benzathine) 16:15:35 CDT CPT-98528 Immunization Single Admin 16:11:28 CONSULTING SOFTWARE ENGINEER CPT-79462 Fluzone Quadrivalent Intramuscular Suspension 0.5 ML 16: 11:28 CONSULTING SOFTWARE ENGINEER CPT-97925 Administration single or combination vaccine inc oral 13 :57:23 CDT CPT-68089 Menactra Intramuscular Injectable 13:57:23 CDT CPT-19276 First Vx Component - Ix admin via ID IM or jet inj without physician counseling 16:42:17 CONSULTING SOFTWARE ENGINEER CPT-42744 Fluzone preservative free (>=3 yrs.) 16:42:17 CONSULTING SOFTWARE ENGINEER 06/03 CPT-43936 Venipuncture Draw Fee 16:29:01 CDT CPT-40962 Chest 2V Frontal and Lat 16:23:56 CDT CPT-94987 Administration single or combination vaccine inc oral 13 :39:17 CONSULTING SOFTWARE ENGINEER CPT-92120 Tdap 13:39:17 CONSULTING SOFTWARE ENGINEER
--- OUTSIDE RECORDS SUMMARY | 2017-11-06 01:00 | XMS REPORT | Clinical Summary ---
Author Author Admin, QIE Organization [facility] [employer] Address Unknown Phone Unavailable Allergies, Adverse Reactions, [...] MD Fever, unspecified Tinea corporis 110.5 Resolved eHctor Love MD Dermatophytosis of the body Sinusitis [...] Hector Love MD Ingrown toenail, right ICD-703.0 Inactive Hector Love MD Medication List Medication Instructions Start Date Stop Date Generic Name NDC Status Provider Patient Instruction AMOXICILLIN 500 MG TABS Take two tablets by mouth every 12 hours for 10 days AMOXICILLIN 27808624592 No Longer Active Иван Mooney MD Active VITAMIN C 500 MG CHEW TAB ASCORBIC ACID 87178928537 Active Иван Mooney MD Active PREDNISONE 20 MG TAB 2 po qd x 4 days PREDNISONE 84518676799 No Longer Active Hector Love MD Active HYDROCODONE-ACETAMINOPHEN 5-325 MG TABS 1/2 to 1 po q 4 hours prn pain 11/06 HYDROCODONE-ACETAMINOPHEN 79301130889 No Longer Active Hector Love MD Active FLONASE ALLERGY RELIEF 50 MCG/ACT NASAL SUSP 2 spray each nostril daily prn allergies FLUTICASONE PROPIONATE 50129577879 Active Hector Love MD Active AUGMENTIN 875-125 MG TAB 1 po BID x 10 days AMOXICILLIN-POT CLAVULANATE 16496558227 No Longer Active Hector Love MD Active FLONASE ALLERGY RELIEF 50 MCG/ACT NASAL SUSP 2 sprays each nostril daily PRN allergies FLUTICASONE PROPIONATE 14955802319 No Longer Active Hector Love MD Active AMOXICILLIN 500 MG CAPS 1 cap by mouth three times a day AMOXICILLIN 78646468808 No Longer Active Jillina Frazell [employer]OP[employer] TALEO MANAGER Active KEFLEX 500 MG CAP 1 tab po tid CEPHALEXIN 77105185368 No Longer Active Jillina Frazell PEOPLESOFT TALEO MANAGER Active AMOXICILLIN 500 MG TABS 2 tabs twice a day for 10 days AMOXICILLIN 62826310954 No Longer Active Jillina Frazell PEOPLESOFT TALEO MANAGER Active ZYRTEC ALLERGY 10 MG CAPS 1 po qd CETIRIZINE HCL 35391409024 Active Hector Love MD Active PROGRAF 1 MG CAPS 2 tabs po bid TACROLIMUS 63477503254 Active Hector Love MD Active ZOFRAN 4 MG TABS 1 po q6hr PRN Nausea ONDANSETRON HCL 33122638670 No Longer Active Ramona Diggs LPN Active AMOXICILLIN 500 MG CAPS 2 po BID x 10 days AMOXICILLIN 63651592869 No Longer Active Martha Montejo PEOPLESO[employer] TALEO MANAGER Active AUGMENTIN 875-125 MG TAB 1 tab by mouth twice daily with food AMOXICILLIN-POT CLAVULANATE 25562905170 No Longer Active Hector Love MD Active LEVAQUIN 500 MG TABS 1 pill by mouth daily LEVOFLOXACIN 39300899706 No Longer Active Jen Crystal MD PhD Active LISINOPRIL 5 MG TABS 1.5 tab qd LISINOPRIL 07311793294 Active Jen Crystal MD PhD Active KETOCONAZOLE 2 % CREA apply twice a day to rash KETOCONAZOLE 70812393785 No Longer Active Hector Love MD Active AUGMENTIN 875-125 MG TAB 1 tab by mouth twice daily with food AMOXICILLIN-POT CLAVULANATE 18259283617 No Longer Active Иван Mooney MD Active LOTRISONE 0.05-1 % CREAM Apply twice a day to affected area 07/19 CLOTRIMAZOLE-BETAMETHASONE 98710143956 No Longer Active Иван Mooney MD Active FEXOFENADINE HCL 180 MG TABS 1 Daily FEXOFENADINE HCL 06474575930 No Longer Active Hector Love MD Active PROGRAF 0.5 MG CAPS Take one by mouth daily with 1 mg TACROLIMUS 92122828282 No Longer Active Hector Love MD Active AMOXICILLIN 500 MG CAPS 2 po BID x 10 days AMOXICILLIN 49168722078 No Longer Active Hector Love MD Active RAPAMUNE 1 MG TABS 3 tabs in the am SIROLIMUS 25105659568 No Longer Active Hector Love MD Active AMOXICILLIN 500 MG CAPS 2 po BID x 10 days AMOXICILLIN 67273768431 No Longer Active Hector Love MD Active LORTAB 5 5-500 MG TABS 1/2 to 1 tablet by mouth every 4 hours as needed for pain HYDROCODONE-ACETAMINOPHEN 64452810896 No Longer Active Hector Love MD Active FLUTICASONE PROPIONATE 50 MCG/ACT SUSP INSTILL 2 SPRAYS IN EACH NOSTRIL Q D FLUTICASONE PROPIONATE 36552227197 No Longer Active Hector Love MD Active PROGRAF 1 MG CAPS 1 po bid TACROLIMUS 60078263913 No Longer Active Hector Love MD Active AMOXICILLIN 875 MG TABS 1 tab by mouth twice daily AMOXICILLIN 17792783434 No Longer Active Hector Love MD Active AMOXICILLIN 500 MG CAPS 2 po BID x 10 days AMOXICILLIN 48347409846 No Longer Active Hector Love MD Active AUGMENTIN 875-125 MG TAB 1 tab by mouth twice daily with food AMOXICILLIN-POT CLAVULANATE 27011425374 No Longer Active Hector Love MD Active AZITHROMYCIN 250 MG TABS 2 po qd x 1 day, then 1 po qd x 4 days AZITHROMYCIN 14343689648 No Longer Active Hector Love MD Active CETIRIZINE HCL 10 MG TABS 1 PO Q D CETIRIZINE HCL 36007610135 No Longer Active Waleska Chongarger Active PROGRAF 1 MG CAPS 1 po bid PROGRAF 1 MG CAPS 983910 TACROLIMUS Inactive FLUTICASONE PROPIONATE 50 MCG/ACT SUSP INSTILL 2 SPRAYS IN EACH NOSTRIL Q D FLUTICASONE PROPIONATE 50 MCG/ACT SUSP 7378057 FLUTICASONE PROPIONATE Inactive LORTAB 5 5-500 MG TABS 1/2 to 1 tablet by mouth every 4 hours as needed for pain LORTAB 5 5-500 MG TABS HYDROCODONE- ACETAMINOPHEN Inactive RAPAMUNE 1 MG TABS 3 tabs in the am RAPAMUNE 1 MG TABS 391993 SIROLIMUS Inactive PROGRAF 0.5 MG CAPS Take one by mouth daily with 1 mg PROGRAF 0.5 MG CAPS 671491 TACROLIMUS Inactive FEXOFENADINE HCL 180 MG TABS 1 Daily FEXOFENADINE HCL 180 MG TABS 253302 FEXOFENADINE HCL Inactive LOTRISONE 0.05-1 % CREAM Apply twice a day to affected area 07/19 LOTRISONE 0.05-1 % CREAM 807928 CLOTRIMAZOLE-BETAMETHASONE Inactive KETOCONAZOLE 2 % CREA apply twice a day to rash KETOCONAZOLE 2 % CREA 504045 KETOCONAZOLE Inactive AUGMENTIN 875-125 MG TAB 1 tab by mouth twice daily with food AUGMENTIN 875-125 MG TAB 498018 AMOXICILLIN-POT CLAVULANATE Inactive ZOFRAN 4 MG TABS 1 po q6hr PRN Nausea ZOFRAN 4 MG TABS 358153 ONDANSETRON HCL Inactive AMOXICILLIN 500 MG TABS 2 tabs twice a day for 10 days AMOXICILLIN 500 MG TABS 285006 AMOXICILLIN Inactive FLONASE ALLERGY RELIEF 50 MCG/ACT NASAL SUSP 2 sprays each nostril daily PRN allergies FLONASE ALLERGY RELIEF 50 MCG/ACT NASAL SUSP 0643840 FLUTICASONE PROPIONATE Inactive HYDROCODONE-ACETAMINOPHEN 5-325 MG TABS 1/2 to 1 po q 4 hours prn pain 11/06 HYDROCODONE-ACETAMINOPHEN 5-325 MG TABS 123975 HYDROCODONE- ACETAMINOPHEN Inactive AMOXICILLIN 500 MG CAPS 2 po BID x 10 days AMOXICILLIN 500 MG CAPS 712664 AMOXICILLIN Inactive AMOXICILLIN 875 MG TABS 1 tab by mouth twice daily AMOXICILLIN 875 MG TABS 265965 AMOXICILLIN Inactive AMOXICILLIN 500 MG CAPS 2 po BID x 10 days AMOXICILLIN 500 MG CAPS 859572 AMOXICILLIN Inactive AMOXICILLIN 500 MG CAPS 2 po BID x 10 days AMOXICILLIN 500 MG CAPS 978430 AMOXICILLIN Inactive AUGMENTIN 875-125 MG TAB 1 tab by mouth twice daily with food AUGMENTIN 875-125 MG TAB 677722 AMOXICILLIN-POT CLAVULANATE Inactive LEVAQUIN 500 MG TABS 1 pill by mouth daily LEVAQUIN 500 MG TABS 514426 LEVOFLOXACIN Inactive AMOXICILLIN 500 MG CAPS 2 po BID x 10 days AMOXICILLIN 500 MG CAPS 527317 AMOXICILLIN Inactive AMOXICILLIN 500 MG CAPS 1 cap by mouth three times a day AMOXICILLIN 500 MG CAPS 800485 AMOXICILLIN Inactive AUGMENTIN 875-125 MG TAB 1 po BID x 10 days AUGMENTIN 875-125 MG TAB 976698 AMOXICILLIN-POT CLAVULANATE Inactive PREDNISONE 20 MG TAB 2 po qd x 4 days PREDNISONE 20 MG TAB 212758 PREDNISONE Inactive AMOXICILLIN 500 MG TABS Take two tablets by mouth every 12 hours for 10 days AMOXICILLIN 500 MG TABS 694651 AMOXICILLIN Inactive Advance Directives Directive Description Start Date PERMISSION TO SHARE Immunizations Vaccine Administration Date Value Standard Description Seasonal influenza vaccine, injectable, preservative free, for > 3 years old ( Afluria, FluLaval, Fluzone, Fluvirin, Fluarix, Agriflu(>=18 yo)) Fluzone preservative free (>=3 yrs.) [DLY981] Influenza, seasonal, injectable, preservative free Adacel (Tetanus, reduced Diphtheria, and acellular Pertussis Immunization) Adacel [NPT786] tetanus toxoid, reduced diphtheria toxoid, and acellular [...] Value Unit Range Description blood pressure, diastolic 93 mm[Hg] BP hidalgo [...] 0.76-1.46 Encounters Code Encounter Date Provider Facility CPT-41125 Level 3 Est. Patient 16:31:04 CDT Иван Mooney MD [facility] CPT-95883 Level 4 Est. Patient 12:02:18 CDT Hector Love MD [facility] CPT-64472 Level 3 Est. Patient 16:14:45 CDT Hector Love MD [facility] CPT-93035 Level 3 Est. Patient 16:53:35 CDT Иван Mooney MD [facility] CPT-99206 Level 3 Est. Patient 15:57:13 CDT Martha Montejo RADHA [facility] CPT-72456 Level 3 Est. Patient 14:30:47 AUDIO DIRECTOR Hector Love MD [facility] CPT-21409 Level 3 Est. Patient 14:50:45 CDT Hector Love MD [facility] CPT-62879 Level 3 Est. Patient 21:17:30 CDT Jen Crystal MD PhD [facility] CPT-32308 Level 3 Est. Patient 09:32:55 CDT Hector Love MD [facility] CPT-75025 Level 3 Est. Patient 15:11:08 AUDIO DIRECTOR Иван Mooney MD [facility] CPT-48965 Level 3 Est. Patient 16:38:53 AUDIO DIRECTOR Hector Love MD [facility] CPT-97795 Level 3 Est. Patient 15:46:05 CDT Hector Love MD [facility] CPT-40760 Level 3 Est. Patient 13:59:39 CDT Hector Love MD [facility] CPT-26829 Level 3 Est. Patient 14:44:46 AUDIO DIRECTOR Hector Love MD [facility] CPT-02048 Level 3 Est. Patient 17:12:27 CDT Hector Love MD [facility] CPT-32341 Level 3 Est. Patient 15:30:32 CDT Hector Love MD [facility] CPT-43275 Level 3 Est. Patient 14:24:52 CDT Иван Mooney MD [facility] CPT-03385 Level 3 Est. Patient 14:08:38 AUDIO DIRECTOR Hector Love MD [facility] Procedures Code Procedure Name Date Entry Date Standard Description CPT-000 Give Appropriate Flu Vaccine 16:22:23 AUDIO DIRECTOR CPT-50335 Free T4 - LAB USE ONLY 11:38:58 CDT CPT-54888 TSH - LAB USE ONLY 11:38:58 CDT CPT-08155 Venipuncture Draw Fee 11:38:58 CDT CPT-31987 Fluzone Quadrivalent Intramuscular Suspension 0.5 ML 16: 12:26 AUDIO DIRECTOR CPT-38528 Immunization Single Admin 16:12:26 AUDIO DIRECTOR CPT-J0561 Bicillin LA 1,200,000 u (PCN G Benzathine) 16:40:23 CDT CPT-17440 Abx/Therapy Injection 16:40:22 CDT CPT-J0561 Bicillin LA 1,200,000 u (PCN G Benzathine) 16:15:35 CDT CPT-38119 Immunization Single Admin 16:11:28 AUDIO DIRECTOR CPT-91525 Fluzone Quadrivalent Intramuscular Suspension 0.5 ML 16: 11:28 AUDIO DIRECTOR CPT-43700 Administration single or combination vaccine inc oral 13 :57:23 CDT CPT-90405 Menactra Intramuscular Injectable 13:57:23 CDT CPT-97715 First Vx Component - Ix admin via ID IM or jet inj without physician counseling 16:42:17 AUDIO DIRECTOR CPT-90117 Fluzone preservative free (>=3 yrs.) 16:42:17 AUDIO DIRECTOR 06/03 CPT-88090 Venipuncture Draw Fee 16:29:01 CDT CPT-16073 Chest 2V Frontal and Lat 16:23:56 CDT CPT-27806 Administration single or combination vaccine inc oral 13 :39:17 AUDIO DIRECTOR CPT-88323 Tdap 13:39:17 AUDIO DIRECTOR
--- OUTSIDE RECORDS SUMMARY | 2017-11-06 01:01 | XMS REPORT | Clinical Summary ---
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 Hector Love MD Liver replaced by transplant COUGH 786.2 Resolved [...] MD Other general symptoms Memory loss 780.93 Resolved Hector Love MD Memory loss Sinusitis, frontal, [...] Hector Love MD Ingrowing nail Alopecia 704.00 Resolved Hector Love MD Alopecia, unspecified Upper respiratory infection, viral 465.9 Resolved Hector Love MD Acute upper respiratory infections of unspecified site Pharyngitis 462 Resolved Hector Love MD Acute pharyngitis Pre employment physical examination V70.0 Resolved Hector Love MD Routine general medical examination at a health care facility Exposure to mononucleosis V01.79 Resolved Hector Love MD Contact with or exposure to other viral diseases Stress at work V62.1 Resolved Hector Love MD Adverse effects of work environment Hypertension, benign essential 401.1 Active Hector Love MD Benign essential hypertension Health screening V70.0 Active Hector Love MD Routine general medical examination at a health care facility Fatigue 780.79 Active Manish Castrejon ENERGY ANALYST Other malaise and fatigue Body Mass Index 34.0-34.9 Adult Active Manish Castrejon ENERGY ANALYST Body Mass Index 34.0-34.9, adult FH DIABETES ICD-V18.0 Inactive Hector Love MD BRONCHITIS, ACUTE ICD-466.0 Inactive Hector Love MD KNEE SPRAIN, LEFT ICD-844.9 Inactive Hector Love MD U R I ICD-465.9 Inactive Hector Love MD HYPERTENSION ICD-401.9 Inactive Hector Love MD COSTOCHRONDRITIS ICD-733.6 Inactive Hector Love MD COUGH ICD-786.2 Inactive Hector Love MD Tinea corporis ICD-110.5 Inactive Hector Love MD Sinusitis ICD-461.9 Inactive Hector Love MD Fever ICD-780.60 Inactive Hector Love MD Memory loss ICD-780.93 Inactive Hector Love MD SINUSITIS, ACUTE ICD-461.9 Inactive Hector Love MD FEVER UNSPECIFIED ICD-780.60 Inactive Hector Love MD Gastroenteritis, viral, acute ICD-008.8 Inactive Martha Montejo ENERGY ANALYST Bronchitis ICD-490 Inactive Hector Love MD 2014 Pharyngitis ICD-462 Inactive Hector Love MD Ingrown toenail ICD-703.0 Inactive Hector Love MD Ingrown toenail, right ICD-703.0 Inactive Hector Love MD Alopecia ICD-704.00 Inactive Hector Love MD Upper respiratory infection, viral ICD-465.9 Inactive Hector Love MD Pharyngitis ICD-462 Inactive Hector Love MD Pre employment physical examination ICD-V70.0 Inactive Hector Love MD Exposure to mononucleosis ICD-V01.79 Inactive Hector Love MD Stress at work ICD-V62.1 Inactive Hector Love MD NEED FOR PROPHYLACTIC VACCINATION WITH STREPTOCOCCUS PNEUMONIAE (PNEUMOCOCCUS) AND INFLUENZA ICD-V06.6 Inactive Hector Love MD Sinusitis, frontal, acute ICD-461.1 Inactive Hector Love MD Medication List Medication Instructions Start Date Stop Date Generic Name NDC Status Provider Patient Instruction PROGRAF 1 MG ORAL CAPSULE 2 po BID TACROLIMUS [id number] Active Hector Love MD Active CETIRIZINE HCL 10 MG ORAL TABLET 1 po qd PRN Allergies CETIRIZINE HCL 91572949744 Active Hector Love MD Active LISINOPRIL 5 MG ORAL TABLET 1.5 po qd LISINOPRIL 14354284710 Vivek Love MD Active FLUTICASONE PROPIONATE 50 MCG/ACT NASAL SUSPENSION 2 sprays/nostril qd PRN Congestion/Allergies FLUTICASONE PROPIONATE 73406225856 Active Hector Love MD Active VITAMIN C 500 MG ORAL TABLET CHEWABLE ASCORBIC ACID 82699734775 No Longer Active Hector Love MD Active PREDNISONE 20 MG ORAL TABLET 1 tablet daily x 2 days PREDNISONE 36174477629 No Longer Active Mainsh Castrejon APRN Active AMOXICILLIN 500 MG ORAL TABLET Take two tablets by mouth every 12 hours for 10 days AMOXICILLIN 12009452092 No Longer Active Иван Mooney MD Active PREDNISONE 20 MG ORAL TABLET 2 po qd x 4 days PREDNISONE 94090876206 No Longer Active Hector Love MD Active HYDROCODONE-ACETAMINOPHEN 5-325 MG ORAL TABLET 1/2 to 1 po q 4 hours prn pain HYDROCODONE-ACETAMINOPHEN 74808483631 No Longer Active Hector Love MD Active AUGMENTIN 875-125 MG ORAL TABLET 1 po BID x 10 days AMOXICILLIN-POT CLAVULANATE 24461922538 No Longer Active Hector Love MD Active FLONASE ALLERGY RELIEF 50 MCG/ACT NASAL SUSPENSION 2 sprays each nostril daily PRN allergies FLUTICASONE PROPIONATE 56772767089 No Longer Active Hector Love MD Active AMOXICILLIN 500 MG ORAL CAPSULE 1 cap by mouth three times a day AMOXICILLIN 53529428095 No Longer Active Manish Castrejon APRN Active KEFLEX 500 MG ORAL CAPSULE 1 tab po tid CEPHALEXIN 23030870833 No Longer Active Jillina Fradebora GARCIA Active AMOXICILLIN 500 MG ORAL TABLET 2 tabs twice a day for 10 days AMOXICILLIN 31292481350 No Longer Active Jilldenise Fradebora GARCIA Active ZOFRAN 4 MG ORAL TABLET 1 po q6hr PRN Nausea ONDANSETRON HCL 78150483349 No Longer Active Ramona Diggs LPN Active AMOXICILLIN 500 MG ORAL CAPSULE 2 po BID x 10 days AMOXICILLIN 74313626875 No Longer Active Martha Montejo APRN Active AUGMENTIN 875-125 MG ORAL TABLET 1 tab by mouth twice daily with food AMOXICILLIN-POT CLAVULANATE 70670287080 No Longer Active Hector Love MD Active LEVAQUIN 500 MG ORAL TABLET 1 pill by mouth daily LEVOFLOXACIN 15434782373 No Longer Active Jen Crystal MD PhD Active KETOCONAZOLE 2 % EXTERNAL CREAM apply twice a day to rash KETOCONAZOLE 33445768410 No Longer Active Hector Love MD Active AUGMENTIN 875-125 MG ORAL TABLET 1 tab by mouth twice daily with food AMOXICILLIN-POT CLAVULANATE 13389481930 No Longer Active Иван Mooney MD Active LOTRISONE 1-0.05 % EXTERNAL CREAM Apply twice a day to affected area CLOTRIMAZOLE-BETAMETHASONE 89676361012 No Longer Active Иван Mooney MD Active FEXOFENADINE HCL 180 MG ORAL TABLET 1 Daily FEXOFENADINE HCL 17059981867 No Longer Active Hector Love MD Active PROGRAF 0.5 MG ORAL CAPSULE Take one by mouth daily with 1 mg TACROLIMUS 94986289550 No Longer Active Hector Love MD Active AMOXICILLIN 500 MG ORAL CAPSULE 2 po BID x 10 days AMOXICILLIN 33878325801 No Longer Active Hector Love MD Active RAPAMUNE 1 MG ORAL TABLET 3 tabs in the am SIROLIMUS 95694672732 No Longer Active Hector Love MD Active AMOXICILLIN 500 MG ORAL CAPSULE 2 po BID x 10 days AMOXICILLIN 84397787356 No Longer Active Hector Love MD Active LORTAB 5-500 MG ORAL TABLET 1/2 to 1 tablet by mouth every 4 hours as needed for pain HYDROCODONE-ACETAMINOPHEN 10338036842 No Longer Active Hector Love MD Active FLUTICASONE PROPIONATE 50 MCG/ACT NASAL SUSPENSION INSTILL 2 SPRAYS IN EACH NOSTRIL Q D FLUTICASONE PROPIONATE 05071096891 No Longer Active Hector Love MD Active PROGRAF 1 MG ORAL CAPSULE 1 po bid TACROLIMUS 54806287757 No Longer Active Hector Love MD Active AMOXICILLIN 875 MG ORAL TABLET 1 tab by mouth twice daily AMOXICILLIN 95879199474 No Longer Active Hector Love MD Active AMOXICILLIN 500 MG ORAL CAPSULE 2 po BID x 10 days AMOXICILLIN 76211194754 No Longer Active Hector Love MD Active AUGMENTIN 875-125 MG ORAL TABLET 1 tab by mouth twice daily with food AMOXICILLIN-POT CLAVULANATE 65657593762 No Longer Active Hector Love MD Active AZITHROMYCIN 250 MG ORAL TABLET 2 po qd x 1 day, then 1 po qd x 4 days 06/19 AZITHROMYCIN 05185617294 No Longer Active Hector Love MD Active CETIRIZINE HCL 10 MG ORAL TABLET 1 PO Q D CETIRIZINE HCL 69681503430 No Longer Active Waleska Winters Active PROGRAF 1 MG ORAL CAPSULE 1 po bid PROGRAF 1 MG ORAL CAPSULE 579231 TACROLIMUS Inactive FLUTICASONE PROPIONATE 50 MCG/ACT NASAL SUSPENSION INSTILL 2 SPRAYS IN EACH NOSTRIL Q D FLUTICASONE PROPIONATE 50 MCG/ACT NASAL SUSPENSION 1271231 FLUTICASONE PROPIONATE Inactive LORTAB 5-500 MG ORAL TABLET 1/2 to 1 tablet by mouth every 4 hours as needed for pain LORTAB 5-500 MG ORAL TABLET HYDROCODONE- ACETAMINOPHEN Inactive RAPAMUNE 1 MG ORAL TABLET 3 tabs in the am RAPAMUNE 1 MG ORAL TABLET 517813 SIROLIMUS Inactive PROGRAF 0.5 MG ORAL CAPSULE Take one by mouth daily with 1 mg PROGRAF 0.5 MG ORAL CAPSULE 750926 TACROLIMUS Inactive FEXOFENADINE HCL 180 MG ORAL TABLET 1 Daily FEXOFENADINE HCL 180 MG ORAL TABLET 682981 FEXOFENADINE HCL Inactive LOTRISONE 1-0.05 % EXTERNAL CREAM Apply twice a day to affected area LOTRISONE 1-0.05 % EXTERNAL CREAM 923757 CLOTRIMAZOLE- BETAMETHASONE Inactive KETOCONAZOLE 2 % EXTERNAL CREAM apply twice a day to rash KETOCONAZOLE 2 % EXTERNAL CREAM 190920 KETOCONAZOLE Inactive AUGMENTIN 875-125 MG ORAL TABLET 1 tab by mouth twice daily with food AUGMENTIN 875-125 MG ORAL TABLET 470596 AMOXICILLIN-POT CLAVULANATE Inactive ZOFRAN 4 MG ORAL TABLET 1 po q6hr PRN Nausea ZOFRAN 4 MG ORAL TABLET 455628 ONDANSETRON HCL Inactive AMOXICILLIN 500 MG ORAL TABLET 2 tabs twice a day for 10 days AMOXICILLIN 500 MG ORAL TABLET 283829 AMOXICILLIN Inactive FLONASE ALLERGY RELIEF 50 MCG/ACT NASAL SUSPENSION 2 sprays each nostril daily PRN allergies FLONASE ALLERGY RELIEF 50 MCG/ACT NASAL SUSPENSION 3691876 FLUTICASONE PROPIONATE Inactive HYDROCODONE-ACETAMINOPHEN 5-325 MG ORAL TABLET 1/2 to 1 po q 4 hours prn pain HYDROCODONE-ACETAMINOPHEN 5-325 MG ORAL TABLET 132650 HYDROCODONE-ACETAMINOPHEN Inactive PREDNISONE 20 MG ORAL TABLET 1 tablet daily x 2 days PREDNISONE 20 MG ORAL TABLET 767342 PREDNISONE Inactive VITAMIN C 500 MG ORAL TABLET CHEWABLE VITAMIN C 500 MG ORAL TABLET CHEWABLE ASCORBIC ACID Inactive AMOXICILLIN 500 MG ORAL CAPSULE 2 po BID x 10 days AMOXICILLIN 500 MG ORAL CAPSULE 143655 AMOXICILLIN Inactive AMOXICILLIN 875 MG ORAL TABLET 1 tab by mouth twice daily AMOXICILLIN 875 MG ORAL TABLET 881409 AMOXICILLIN Inactive AMOXICILLIN 500 MG ORAL CAPSULE 2 po BID x 10 days AMOXICILLIN 500 MG ORAL CAPSULE 395308 AMOXICILLIN Inactive AMOXICILLIN 500 MG ORAL CAPSULE 2 po BID x 10 days AMOXICILLIN 500 MG ORAL CAPSULE 075581 AMOXICILLIN Inactive AUGMENTIN 875-125 MG ORAL TABLET 1 tab by mouth twice daily with food AUGMENTIN 875-125 MG ORAL TABLET 241610 AMOXICILLIN-POT CLAVULANATE Inactive LEVAQUIN 500 MG ORAL TABLET 1 pill by mouth daily LEVAQUIN 500 MG ORAL TABLET 793415 LEVOFLOXACIN Inactive AMOXICILLIN 500 MG ORAL CAPSULE 2 po BID x 10 days AMOXICILLIN 500 MG ORAL CAPSULE 718450 AMOXICILLIN Inactive AMOXICILLIN 500 MG ORAL CAPSULE 1 cap by mouth three times a day AMOXICILLIN 500 MG ORAL CAPSULE 526565 AMOXICILLIN Inactive AUGMENTIN 875-125 MG ORAL TABLET 1 po BID x 10 days AUGMENTIN 875-125 MG ORAL TABLET 811735 AMOXICILLIN-POT CLAVULANATE Inactive PREDNISONE 20 MG ORAL TABLET 2 po qd x 4 days PREDNISONE 20 MG ORAL TABLET 894407 PREDNISONE Inactive AMOXICILLIN 500 MG ORAL TABLET Take two tablets by mouth every 12 hours for 10 days AMOXICILLIN 500 MG ORAL TABLET 600941 AMOXICILLIN Inactive Advance Directives Directive Description Start Date PERMISSION TO SHARE Immunizations Vaccine Administration Date Value Standard Description Seasonal influenza vaccine, injectable, preservative free, for > 3 years old ( Afluria, FluLaval, Fluzone, Fluvirin, Fluarix, Agriflu(>=18 yo)) Fluzone preservative free (>=3 yrs.) [[id number]] Influenza, seasonal, injectable, preservative free Adacel (Tetanus, reduced Diphtheria, and acellular Pertussis Immunization) Adacel [XQY187] tetanus toxoid, reduced diphtheria toxoid, and acellular [...] Value Unit Range Description blood pressure, diastolic 97 mm[Hg] BP [place] blood pressure, systolic 140 mm[Hg] BP sys height E&M 71 [in_us] Bdy height pulse rate E&M 95 /min Heart rate temperature E&M 97.6 [degF] Body temperature weight E&M 250 [lb_av] Weight Measured blood pressure, diastolic 79 mm[Hg] BP [place] blood pressure, systolic 118 mm[Hg] BP sys height E&M 71 [in_us] Bdy height pulse rate E&M 66 /min Heart rate temperature E&M 97.5 [degF] Body temperature weight E&M 239.5 [lb_av] Weight Measured blood pressure, diastolic 97 mm[Hg] BP [place] blood pressure, systolic 145 mm[Hg] BP sys height E&M 71 [in_us] Bdy height pulse rate E&M 76 /min Heart rate temperature E&M 98.4 [degF] Body temperature weight E&M 241.31 [lb_av] Weight Measured blood pressure, diastolic 88 mm[Hg] BP [place] [...] temperature weight E&M 242.19 [lb_av] Weight Measured Diagnostic Results Date Name Value Unit Range Description Lab Report: CBC W/DIFF, Comp. Metabolic Panel, Magnesium, Phos, Lipid Panel - Chemistry sodium, serum 137 mmol/L 736-019 6194/08/14 carbon dioxide, venous blood 29.7 mmol/L 21.0-32.0 potassium, serum 4.3 mmol/L 3.5-5.2 chloride, serum 99 mmol/L 98-107 blood glucose 123 mg/dL 65-110 urea nitrogen, blood 12 mg/dL 7-18 creatinine, serum 0.84 mg/dL 0.60-1.30 alanine aminotransferase (SGPT), serum 48 U/L 12-78 aspartate aminotransferase (SGOT), serum 26 U/L 15-37 calcium, serum 9.4 mg/dL 8.5-10.1 bilirubin, serum, total 1.60 mg/dL 0.00-1.00 cholesterol, serum 141 mg/dL 233-620 2046/08/14 triglyceride, serum, fasting 54 mg/dL 30-200 HDL [...] count 241 10^3/MM^3 10*3/mm3 142-424 Lab Report: CBC W/DIFF, Comp. Metabolic Panel, Thyroid Stimulating Hormo ... - Chemistry sodium, serum 137 mmol/L 634-632 7744/04/23 carbon dioxide, venous blood 28.4 mmol/L 21.0-32.0 potassium, serum 4.4 mmol/L 3.5-5.2 chloride, serum 100 mmol/L 98-107 blood glucose 128 mg/dL 65-110 urea nitrogen, blood 8 mg/dL 7-18 creatinine, serum 0.77 mg/dL 0.60-1.30 alanine aminotransferase (SGPT), serum 59 U/L 12-78 aspartate aminotransferase (SGOT), serum 32 U/L 15-37 calcium, serum 9.2 mg/dL 8.5-10.1 bilirubin, serum, total 1.40 mg/dL 0.00-1.00 TSH 3.04 m[iU]/mL 0.36-3.74 thyroxine, serum, free 1.06 ng/dL 0.59-1.17 protein, total urine random Negative mg/dL Negative RBC, urine, dipstick Negative Negative Lab Report: CBC W/DIFF, Comp. Metabolic Panel, Thyroid Stimulating Hormo ... - Hematology leukocyte count, blood 7.9 10^3/MM^3 10*3/mm3 4.6-10.2 neutrophils as percent of blood leukocytes 56.5 % 42.2-75.2 monocytes as percent of blood leukocytes 8.3 % 1.7-9.3 lymphocytes as percent of blood leukocytes 30.8 % 20.5-51.1 erythrocyte (RBC) count 5.24 10^6/MM^3 10*6/mm3 4.50-6.50 hemoglobin, blood 15.8 g/dL 14.0-18.0 hematocrit, blood 47.1 % 40.0-54.0 mean corpuscular volume, RBC 90 fL 80-97 mean corpuscular hemoglobin, RBC 30.2 pg 27.0-31.2 mean corpuscular hemoglobin concentration, RBC 33.6 G/DL % 31.8- 35.4 red blood cell distribution width 13.2 % 13.0-18.0 platelet count 230 10^3/MM^3 10*3/mm3 142-424 Lab Report: CBC W/DIFF, Comp. Metabolic Panel, Thyroid Stimulating Hormo ... - Urinalysis urobilinogen, urine, semiquantitative (dipstick) 0.2 E.U./dL Normal leukocyte esterase, urine, by dipstick Negative Negative nitrite, urine, semiquantitative Negative Negative glucose, urine, semiquantitative Negative Negative ketones, urine, by test strip Negative Negative bilirubin, urine Negative Negative urine color Yellow Colorless;Lightyellow;Straw;Yellow appearance, urine Clear Clear specific gravity, urine 1.025 1.000-1.030 pH, urine, semiquantitative 5.5 5.0-8.5 Lab Report: RapidStrep Rflx/Cx - Lab Microbial identification kit, rapid strep method Negative-Throat Culture to Follow Negative Lab Report: UADIP W/MICRO, AUTO - Chemistry [...] 1.025 1.000-1.030 pH, urine, semiquantitative 6.0 5.0-8.5 Lab Report: VITAMIN D, 25-HYDROXY/40708 - Chemistry vitamin D 25-hydroxy, serum 18 ng/mL 30-100 vitamin D 25-hydroxy, serum 44 ng/mL 30-100 Encounters Code Encounter Date Provider Facility CPT-89878 Level 3 Est. Patient 10:49:01 CDT Manish Castrejon [facility] CPT-38895 Level 3 Est. Patient 11:35:07 CDT Elijahzeyad Chasel [facility] CPT-95760 Level 3 Est. Patient 17:22:36 CDT Tracy Frey [facility] CPT-16530 Level 3 Est. Patient 16:06:03 CDT Elijahudaydenise Uriosteguigretal [facility] CPT-96050 Level 3 Est. Patient 09:57:24 CDT Elijahzeyad Moodygretal [facility] CPT-68869 Level 3 Est. Patient 16:31:04 CDT Иван Mooney MD [facility] CPT-81268 Level 4 Est. Patient 12:02:18 CDT Hector Love MD [facility] CPT-50473 Level 3 Est. Patient 16:14:45 CDT Hector Love MD [facility] CPT-24670 Level 3 Est. Patient 16:53:35 CDT Иван Mooney MD [facility] CPT-06213 Level 3 Est. Patient 15:57:13 CDT Martha Nikia [facility] CPT-52246 Level 3 Est. Patient 14:30:47 HAND KNITTER Hector Love MD [facility] CPT-81476 Level 3 Est. Patient 14:50:45 CDT Hector Love MD [facility] CPT-04956 Level 3 Est. Patient 21:17:30 CDT Jen Crystal MD, PhD [facility] CPT-26666 Level 3 Est. Patient 09:32:55 CDT Hector Love MD [facility]-82197 Level 3 Est. Patient 15:11:08 HAND KNITTER Иван Mooney MD [facility] CPT-02809 Level 3 Est. Patient 16:38:53 HAND KNITTER Hector Love MD [facility] CPT-82714 Level 3 Est. Patient 15:46:05 CDT Hector Love MD [facility] CPT-06512 Level 3 Est. Patient 13:59:39 CDT Hector Love MD [facility] CPT-47506 Level 3 Est. Patient 14:44:46 HAND KNITTER Hector Love MD [facility] CPT-44210 Level 3 Est. Patient 17:12:27 CDT Hector Love MD [facility] CPT-26374 Level 3 Est. Patient 15:30:32 CDT Hector Love MD [facility] CPT-95119 Level 3 Est. Patient 14:24:52 CDT Иван Mooney MD [facility] CPT-71198 Level 3 Est. Patient 14:08:38 HAND KNITTER Hector Love MD [facility] Procedures Code Procedure Name Date Entry Date Standard Description CPT-81897 Chest, 2 views 11:04:30 CDT CPT-63408 Venipuncture Draw Fee 16:18:26 CDT CPT-88579 TB Skin Test 09:57:25 CDT CPT-000 Give Appropriate Flu Vaccine 16:22:23 HAND KNITTER CPT-12421 Free T4 - LAB USE ONLY 11:38:58 CDT CPT-32320 TSH - LAB USE ONLY 11:38:58 CDT CPT-35615 Venipuncture Draw Fee 11:38:58 CDT CPT-88465 Fluzone Quadrivalent Intramuscular Suspension 0.5 ML 16: 12:26 HAND KNITTER CPT-72243 Immunization Single Admin 16:12:26 HAND KNITTER CPT-J0561 Bicillin LA 1,200,000 u (PCN G Benzathine) 16:40:23 CDT CPT-10925 Abx/Therapy Injection 16:40:22 CDT CPT-J0561 Bicillin LA 1,200,000 u (PCN G Benzathine) 16:15:35 CDT CPT-53285 Immunization Single Admin 16:11:28 HAND KNITTER CPT-32356 Fluzone Quadrivalent Intramuscular Suspension 0.5 ML 16: 11:28 HAND KNITTER CPT-32370 Administration single or combination vaccine inc oral 13 :57:23 CDT CPT-55311 Menactra Intramuscular Injectable 13:57:23 CDT CPT-80931 First Vx Component - Ix admin via ID IM or jet inj without physician counseling 16:42:17 HAND KNITTER CPT-01371 Fluzone preservative free (>=3 yrs.) 16:42:17 HAND KNITTER 06/03 CPT-66105 Venipuncture Draw Fee 16:29:01 CDT CPT-92729 Chest 2V Frontal and Lat 16:23:56 CDT CPT-98136 Administration single or combination vaccine inc oral 13 :39:17 HAND KNITTER CPT-93626 Tdap 13:39:17 HAND KNITTER
--- OUTSIDE RECORDS SUMMARY | 2017-11-06 01:02 | XMS REPORT | Clinical Summary ---
Author Author Admin, LAMBERT Organization [facility] Address Unknown Phone Unavailable Allergies, Adverse Reactions, [...] Gastroenteritis, viral, acute 008.8 Resolved Martha Montejo TRANSLATOR DEAF Intestinal infection due to other organism, not [...] employment physical examination V70.0 Active Manish Castrejon TRANSLATOR DEAF Routine general medical examination at a health care facility Exposure to mononucleosis V01.79 Active Manish Castrejon TRANSLATOR DEAF Contact with or exposure to other viral diseases BRONCHITIS, ACUTE ICD-466.0 Inactive Hector Love MD KNEE SPRAIN, LEFT ICD-844.9 Inactive Hector Love MD U R I ICD-465.9 Inactive Hector Love MD FH DIABETES ICD-V18.0 Inactive Hector Love MD COUGH ICD-786.2 Inactive Hector Love MD COSTOCHRONDRITIS ICD-733.6 Inactive Hector Love MD FEVER UNSPECIFIED ICD-780.60 [...] toenail, right ICD-703.0 Inactive Hector Love MD SINUSITIS, ACUTE ICD-461.9 Inactive Hector Love MD Medication List Medication Instructions Start Date Stop Date Generic Name ND Status Provider Patient Instruction PREDNISONE 20 MG TAB 1 tablet daily x 2 days PREDNISONE 94379858121 Active Pilo Flores DO Active AMOXICILLIN 500 MG TABS Take two tablets by mouth every 12 hours for 10 days AMOXICILLIN 29017618970 No Longer Active Иван Mooney MD Active VITAMIN C 500 MG CHEW TAB ASCORBIC ACID 60239316359 Active Иван Mooney MD Active PREDNISONE 20 MG TAB 2 po qd x 4 days PREDNISONE 10805184309 No Longer Active Hector Love MD Active HYDROCODONE-ACETAMINOPHEN 5-325 MG TABS 1/2 to 1 po q 4 hours prn pain 11/06 HYDROCODONE-ACETAMINOPHEN 64682933287 No Longer Active Hector Love MD Active FLONASE ALLERGY RELIEF 50 MCG/ACT NASAL SUSP 2 spray each nostril daily prn allergies FLUTICASONE PROPIONATE 70673728375 Active Hector Love MD Active AUGMENTIN 875-125 MG TAB 1 po BID x 10 days AMOXICILLIN-POT CLAVULANATE 83871431871 No Longer Active Hector Love MD Active FLONASE ALLERGY RELIEF 50 MCG/ACT NASAL SUSP 2 sprays each nostril daily PRN allergies FLUTICASONE PROPIONATE 80607701998 No Longer Active Hector Love MD Active AMOXICILLIN 500 MG CAPS 1 cap by mouth three times a day AMOXICILLIN 73304012550 No Longer Active Jillina Frazell TRANSLATOR DEAF Active KEFLEX 500 MG CAP 1 tab po tid CEPHALEXIN 64855692825 No Longer Active Jillina Frazell TRANSLATOR DEAF Active AMOXICILLIN 500 MG TABS 2 tabs twice a day for 10 days AMOXICILLIN 60252870812 No Longer Active Jillina Frazell TRANSLATOR DEAF Active ZYRTEC ALLERGY 10 MG CAPS 1 po qd CETIRIZINE HCL 26404457022 Active Hector Love MD Active PROGRAF 1 MG CAPS 2 tabs po bid TACROLIMUS 01943499926 Active Hector Love MD Active ZOFRAN 4 MG TABS 1 po q6hr PRN Nausea ONDANSETRON HCL 26425341498 No Longer Active Ramona Diggs LPN Active AMOXICILLIN 500 MG CAPS 2 po BID x 10 days AMOXICILLIN 53341476570 No Longer Active Martha Yohenrique GARCIA Active AUGMENTIN 875-125 MG TAB 1 tab by mouth twice daily with food AMOXICILLIN-POT CLAVULANATE 43995927306 No Longer Active Hector Love MD Active LEVAQUIN 500 MG TABS 1 pill by mouth daily LEVOFLOXACIN 36887929752 No Longer Active Jen Crystal MD PhD Active LISINOPRIL 5 MG TABS 1.5 tab qd LISINOPRIL 72164671446 Active Jen Crystal MD PhD Active KETOCONAZOLE 2 % CREA apply twice a day to rash KETOCONAZOLE 22493824425 No Longer Active Hector Love MD Active AUGMENTIN 875-125 MG TAB 1 tab by mouth twice daily with food AMOXICILLIN-POT CLAVULANATE 76913991832 No Longer Active Иван Mooney MD Active LOTRISONE 0.05-1 % CREAM Apply twice a day to affected area 07/19 CLOTRIMAZOLE-BETAMETHASONE 21919194146 No Longer Active Иван Mooney MD Active FEXOFENADINE HCL 180 MG TABS 1 Daily FEXOFENADINE HCL 15929996245 No Longer Active Hector Love MD Active PROGRAF 0.5 MG CAPS Take one by mouth daily with 1 mg TACROLIMUS 21492445611 No Longer Active Hector Love MD Active AMOXICILLIN 500 MG CAPS 2 po BID x 10 days AMOXICILLIN 32772248600 No Longer Active Hector Love MD Active RAPAMUNE 1 MG TABS 3 tabs in the am SIROLIMUS 13656992447 No Longer Active Hector Love MD Active AMOXICILLIN 500 MG CAPS 2 po BID x 10 days AMOXICILLIN 29107020679 No Longer Active Hector Love MD Active LORTAB 5 5-500 MG TABS 1/2 to 1 tablet by mouth every 4 hours as needed for pain HYDROCODONE-ACETAMINOPHEN 64405941591 No Longer Active Hector Love MD Active FLUTICASONE PROPIONATE 50 MCG/ACT SUSP INSTILL 2 SPRAYS IN EACH NOSTRIL Q D FLUTICASONE PROPIONATE 67248462970 No Longer Active Hector Love MD Active PROGRAF 1 MG CAPS 1 po bid TACROLIMUS 07957486816 No Longer Active Hector Love MD Active AMOXICILLIN 875 MG TABS 1 tab by mouth twice daily AMOXICILLIN 99011795135 No Longer Active Hector Love MD Active AMOXICILLIN 500 MG CAPS 2 po BID x 10 days AMOXICILLIN 17851404423 No Longer Active Hector Love MD Active AUGMENTIN 875-125 MG TAB 1 tab by mouth twice daily with food AMOXICILLIN-POT CLAVULANATE 61857911593 No Longer Active Hector Love MD Active AZITHROMYCIN 250 MG TABS 2 po qd x 1 day, then 1 po qd x 4 days AZITHROMYCIN 81684956119 No Longer Active Hector Love MD Active CETIRIZINE HCL 10 MG TABS 1 PO Q D CETIRIZINE HCL 64138476993 No Longer Active Waleska Levy Active PROGRAF 1 MG CAPS 1 po bid PROGRAF 1 MG CAPS 821187 TACROLIMUS Inactive FLUTICASONE PROPIONATE 50 MCG/ACT SUSP INSTILL 2 SPRAYS IN EACH NOSTRIL Q D FLUTICASONE PROPIONATE 50 MCG/ACT SUSP 8131551 FLUTICASONE PROPIONATE Inactive LORTAB 5 5-500 MG TABS 1/2 to 1 tablet by mouth every 4 hours as needed for pain LORTAB 5 5-500 MG TABS HYDROCODONE- ACETAMINOPHEN Inactive RAPAMUNE 1 MG TABS 3 tabs in the am RAPAMUNE 1 MG TABS 650534 SIROLIMUS Inactive PROGRAF 0.5 MG CAPS Take one by mouth daily with 1 mg PROGRAF 0.5 MG CAPS 765717 TACROLIMUS Inactive FEXOFENADINE HCL 180 MG TABS 1 Daily FEXOFENADINE HCL 180 MG TABS 782599 FEXOFENADINE HCL Inactive LOTRISONE 0.05-1 % CREAM Apply twice a day to affected area 07/19 LOTRISONE 0.05-1 % CREAM 105161 CLOTRIMAZOLE-BETAMETHASONE Inactive KETOCONAZOLE 2 % CREA apply twice a day to rash KETOCONAZOLE 2 % CREA 026667 KETOCONAZOLE Inactive AUGMENTIN 875-125 MG TAB 1 tab by mouth twice daily with food AUGMENTIN 875-125 MG TAB 222837 AMOXICILLIN-POT CLAVULANATE Inactive ZOFRAN 4 MG TABS 1 po q6hr PRN Nausea ZOFRAN 4 MG TABS 687089 ONDANSETRON HCL Inactive AMOXICILLIN 500 MG TABS 2 tabs twice a day for 10 days AMOXICILLIN 500 MG TABS 734064 AMOXICILLIN Inactive FLONASE ALLERGY RELIEF 50 MCG/ACT NASAL SUSP 2 sprays each nostril daily PRN allergies FLONASE ALLERGY RELIEF 50 MCG/ACT NASAL SUSP 7859904 FLUTICASONE PROPIONATE Inactive HYDROCODONE-ACETAMINOPHEN 5-325 MG TABS 1/2 to 1 po q 4 hours prn pain 11/06 HYDROCODONE-ACETAMINOPHEN 5-325 MG TABS 007402 HYDROCODONE- ACETAMINOPHEN Inactive AMOXICILLIN 500 MG CAPS 2 po BID x 10 days AMOXICILLIN 500 MG CAPS 194024 AMOXICILLIN Inactive AMOXICILLIN 875 MG TABS 1 tab by mouth twice daily AMOXICILLIN 875 MG TABS 184678 AMOXICILLIN Inactive AMOXICILLIN 500 MG CAPS 2 po BID x 10 days AMOXICILLIN 500 MG CAPS 829332 AMOXICILLIN Inactive AMOXICILLIN 500 MG CAPS 2 po BID x 10 days AMOXICILLIN 500 MG CAPS 704219 AMOXICILLIN Inactive AUGMENTIN 875-125 MG TAB 1 tab by mouth twice daily with food AUGMENTIN 875-125 MG TAB 291762 AMOXICILLIN-POT CLAVULANATE Inactive LEVAQUIN 500 MG TABS 1 pill by mouth daily LEVAQUIN 500 MG TABS 560961 LEVOFLOXACIN Inactive AMOXICILLIN 500 MG CAPS 2 po BID x 10 days AMOXICILLIN 500 MG CAPS 482573 AMOXICILLIN Inactive AMOXICILLIN 500 MG CAPS 1 cap by mouth three times a day AMOXICILLIN 500 MG CAPS 021615 AMOXICILLIN Inactive AUGMENTIN 875-125 MG TAB 1 po BID x 10 days AUGMENTIN 875-125 MG TAB 522550 AMOXICILLIN-POT CLAVULANATE Inactive PREDNISONE 20 MG TAB 2 po qd x 4 days PREDNISONE 20 MG TAB 566876 PREDNISONE Inactive AMOXICILLIN 500 MG TABS Take two tablets by mouth every 12 hours for 10 days AMOXICILLIN 500 MG TABS 027798 AMOXICILLIN Inactive Advance Directives Directive Description Start Date PERMISSION TO SHARE Immunizations Vaccine Administration Date Value Standard Description Seasonal influenza vaccine, injectable, preservative free, for > 3 years old ( Afluria, FluLaval, Fluzone, Fluvirin, Fluarix, Agriflu(>=18 yo)) Fluzone preservative free (>=3 yrs.) [WZP058] Influenza, seasonal, injectable, preservative free Adacel (Tetanus, reduced Diphtheria, and acellular Pertussis Immunization) Adacel [CSH825] tetanus toxoid, reduced diphtheria toxoid, and acellular pertussis vaccine, adsorbed MMR (measles, mumps, rubella) virus immunization #2 MMR oral polio vaccine (OPV) #4 Historical poliovirus vaccine, unspecified formulation DPT immunization #5 DTaP DPT immunization #4 DTaP Hemophilus influenza B immunization #4 Hibtitre Haemophilus influenzae type b vaccine, conjugate unspecified formulation MMR (measles, mumps, rubella) virus immunization #1 MMR hepatitis B vaccine #3 Historical hepatitis B vaccine, unspecified formulation DPT immunization #3 DPT Hemophilus influenza B immunization #3 Hibtitre Haemophilus influenzae type b vaccine, conjugate unspecified formulation oral polio vaccine (OPV) #3 Historical poliovirus vaccine, unspecified formulation DPT immunization #2 DPT Hemophilus influenza B immunization #2 Hibtitre Haemophilus influenzae type b vaccine, conjugate unspecified formulation oral polio vaccine (OPV) #2 Historical poliovirus vaccine, unspecified formulation hepatitis B vaccine #2 given Historical hepatitis B vaccine, unspecified formulation hepatitis B vaccine #1 given Historical hepatitis B vaccine, unspecified formulation DPT immunization #1 DPT Hemophilus influenza B immunization #1 Hibtitre Haemophilus influenzae type b vaccine, conjugate unspecified formulation oral polio vaccine (OPV) #1 Historical poliovirus vaccine, unspecified formulation Vital Signs Date Name [...] Panel - Chemistry sodium, serum 137 mmol/L 153-565 7965/08/14 carbon dioxide, venous blood 29.7 mmol/L 21.0-32.0 potassium, serum 4.3 mmol/L 3.5-5.2 chloride, serum 99 mmol/L 98-107 blood glucose 123 mg/dL 65-110 urea nitrogen, blood 12 mg/dL 7-18 creatinine, serum 0.84 mg/dL 0.60-1.30 alanine aminotransferase (SGPT), serum 48 U/L 12-78 aspartate aminotransferase (SGOT), serum 26 U/L 15-37 calcium, serum 9.4 mg/dL 8.5-10.1 bilirubin, serum, total 1.60 mg/dL 0.00-1.00 cholesterol, serum 141 mg/dL 048-288 7250/08/14 triglyceride, serum, fasting 54 mg/dL 30-200 HDL [...] semiquantitative 6.0 5.0-8.5 Lab Report: VITAMIN D, 25-HYDROXY/71150 - Chemistry vitamin D 25-hydroxy, serum 18 ng/mL 30-100 Encounters Code Encounter Date Provider Facility CPT-67781 Level 3 Est. Patient 17:22:36 [facility] Est. Patient 16:06:03 CDT Manish Castrejon [facility]-79049 Level 3 Est. Patient 09:57:24 CDT Manish Castrejon [facility] CPT-49945 Level 3 Est. Patient 16:31:04 CDT Иван Mooney MD [facility] CPT-37027 Level 4 Est. Patient 12:02:18 CDT Hector Love MD [facility] CPT-82669 Level 3 Est. Patient 16:14:45 CDT Hector Love MD [facility] CPT-00741 Level 3 Est. Patient 16:53:35 CDT Иван Mooney MD [facility] CPT-36412 Level 3 Est. Patient 15:57:13 CDT Martha Montejo [facility] CPT-64521 Level 3 Est. Patient 14:30:47 CREDIT REVIEW ANALYST Hector Love MD [facility] CPT-10007 Level 3 Est. Patient 14:50:45 CDT Hector Love MD [facility] CPT-53841 Level 3 Est. Patient 21:17:30 CDT Jen Crystal MD PhD [facility] CPT-59783 Level 3 Est. Patient 09:32:55 CDT Hector Love MD [facility] CPT-82540 Level 3 Est. Patient 15:11:08 CREDIT REVIEW ANALYST Иван Mooney MD [facility] CPT-05688 Level 3 Est. Patient 16:38:53 CREDIT REVIEW ANALYST Hector Love MD [facility] CPT-73610 Level 3 Est. Patient 15:46:05 CDT Hector Love MD [facility] CPT-38635 Level 3 Est. Patient 13:59:39 CDT Hector Love MD [facility] CPT-61521 Level 3 Est. Patient 14:44:46 CREDIT REVIEW ANALYST Hector Love MD [facility] CPT-31253 Level 3 Est. Patient 17:12:27 CDT Hector Love MD [facility] CPT-36226 Level 3 Est. Patient 15:30:32 CDT Hector Love MD [facility] CPT-22402 Level 3 Est. Patient 14:24:52 CDT Иван Mooney MD [facility] CPT-21117 Level 3 Est. Patient 14:08:38 CREDIT REVIEW ANALYST Hector Love MD [facility] Procedures Code Procedure Name Date Entry Date Standard Description CPT-01449 Venipuncture Draw Fee 16:18:26 CDT CPT-58595 TB Skin Test 09:57:25 CDT CPT-000 Give Appropriate Flu Vaccine 16:22:23 CREDIT REVIEW ANALYST CPT-98699 Free T4 - LAB USE ONLY 11:38:58 CDT CPT-19682 TSH - LAB USE ONLY 11:38:58 CDT CPT-36221 Venipuncture Draw Fee 11:38:58 CDT CPT-79087 Fluzone Quadrivalent Intramuscular Suspension 0.5 ML 16: 12:26 CREDIT REVIEW ANALYST CPT-77273 Immunization Single Admin 16:12:26 CREDIT REVIEW ANALYST CPT-J0561 Bicillin LA 1,200,000 u (PCN G Benzathine) 16:40:23 CDT CPT-13793 Abx/Therapy Injection 16:40:22 CDT CPT-J0561 Bicillin LA 1,200,000 u (PCN G Benzathine) 16:15:35 CDT CPT-12267 Immunization Single Admin 16:11:28 CREDIT REVIEW ANALYST CPT-17880 Fluzone Quadrivalent Intramuscular Suspension 0.5 ML 16: 11:28 CREDIT REVIEW ANALYST CPT-87773 Administration single or combination vaccine inc oral 13 :57:23 CDT CPT-22177 Menactra Intramuscular Injectable 13:57:23 CDT CPT-64583 First Vx Component - Ix admin via ID IM or jet inj without physician counseling 16:42:17 CREDIT REVIEW ANALYST CPT-59537 Fluzone preservative free (>=3 yrs.) 16:42:17 CREDIT REVIEW ANALYST 06/03 CPT-54554 Venipuncture Draw Fee 16:29:01 CDT CPT-94252 Chest 2V Frontal and Lat 16:23:56 CDT CPT-21344 Administration single or combination vaccine inc oral 13 :39:17 CREDIT REVIEW ANALYST CPT-57261 Tdap 13:39:17 CREDIT REVIEW ANALYST
--- OUTSIDE RECORDS SUMMARY | 2017-11-06 01:03 | XMS REPORT | Clinical Summary ---
Author Author Admin, LAMBERT Organization [employer] Address Unknown Phone Unavailable Allergies, Adverse Reactions, [...] Gastroenteritis, viral, acute 008.8 Resolved Martha Montejo REGISTERED NURSE HH CASE MANAGER Intestinal infection due to other organism, not [...] employment physical examination V70.0 Active Manish Castrejon REGISTERED NURSE HH CASE MANAGER Routine general medical examination at a health care facility Exposure to mononucleosis V01.79 Active Manish Castrejon REGISTERED NURSE HH CASE MANAGER Contact with or exposure to other viral diseases BRONCHITIS, ACUTE ICD-466.0 Inactive Hector Love MD KNEE SPRAIN, LEFT ICD-844.9 Inactive Hector Love MD FH DIABETES ICD-V18.0 Inactive Hector Love MD U R I ICD-465.9 Inactive Hector Love MD COSTOCHRONDRITIS ICD-733.6 Inactive Hector Love MD COUGH ICD-786.2 Inactive Hector Loev MD Tinea corporis ICD-110.5 Inactive Hector Love MD Sinusitis ICD-461.9 Inactive Hector Love MD Fever ICD-780.60 Inactive Hector Love MD SINUSITIS, ACUTE ICD-461.9 Inactive Hector Love MD Sinusitis, frontal, acute ICD-461.1 Inactive Hector Love MD NEED FOR PROPHYLACTIC VACCINATION WITH STREPTOCOCCUS PNEUMONIAE (PNEUMOCOCCUS) AND INFLUENZA ICD-V06.6 Inactive Hector Love MD FEVER UNSPECIFIED ICD-780.60 Inactive Hector Love MD Gastroenteritis, viral, acute ICD-008.8 Inactive Martha Montejo REGISTERED NURSE HH CASE MANAGER Bronchitis ICD-490 Inactive Hector Love MD 2014 Ingrown toenail, right ICD-703.0 Inactive Hector Love MD Pharyngitis ICD-462 Inactive Hector Love MD Ingrown toenail ICD-703.0 Nils Hernandezlow MD Medication List Medication Instructions Start Date Stop Date Generic Name NDC Status Provider Patient Instruction AMOXICILLIN 500 MG TABS Take two tablets by mouth every 12 hours for 10 days AMOXICILLIN 27909395443 No Longer Active Иван Mooney MD Active VITAMIN C 500 MG CHEW TAB ASCORBIC ACID 22412951456 Active Иван Mooney MD Active PREDNISONE 20 MG TAB 2 po qd x 4 days PREDNISONE 58459770233 No Longer Active Hector Love MD Active HYDROCODONE-ACETAMINOPHEN 5-325 MG TABS 1/2 to 1 po q 4 hours prn pain 11/06 HYDROCODONE-ACETAMINOPHEN 62302100851 No Longer Active Hector Love MD Active FLONASE ALLERGY RELIEF 50 MCG/ACT NASAL SUSP 2 spray each nostril daily prn allergies FLUTICASONE PROPIONATE 23434596744 Active Hector Love MD Active AUGMENTIN 875-125 MG TAB 1 po BID x 10 days AMOXICILLIN-POT CLAVULANATE 86592482084 No Longer Active Hector Love MD Active FLONASE ALLERGY RELIEF 50 MCG/ACT NASAL SUSP 2 sprays each nostril daily PRN allergies FLUTICASONE PROPIONATE 05631262046 No Longer Active Hector Love MD Active AMOXICILLIN 500 MG CAPS 1 cap by mouth three times a day AMOXICILLIN 58459715847 No Longer Active Jillina Frazell REGISTERED NURSE HH CASE MANAGER Active KEFLEX 500 MG CAP 1 tab po tid CEPHALEXIN 70361458280 No Longer Active Jillina Frazell REGISTERED NURSE HH CASE MANAGER Active AMOXICILLIN 500 MG TABS 2 tabs twice a day for 10 days AMOXICILLIN 75849884618 No Longer Active Jillina Frazell REGISTERED NURSE HH CASE MANAGER Active ZYRTEC ALLERGY 10 MG CAPS 1 po qd CETIRIZINE HCL 81838295415 Active Hector Love MD Active PROGRAF 1 MG CAPS 2 tabs po bid TACROLIMUS 18265422773 Active Hector Love MD Active ZOFRAN 4 MG TABS 1 po q6hr PRN Nausea ONDANSETRON HCL 99226414706 No Longer Active Ramona Diggs LPN Active AMOXICILLIN 500 MG CAPS 2 po BID x 10 days AMOXICILLIN 81090906265 No Longer Active Martha Montejo RADHA Active AUGMENTIN 875-125 MG TAB 1 tab by mouth twice daily with food AMOXICILLIN-POT CLAVULANATE 12115730172 No Longer Active Hector Love MD Active LEVAQUIN 500 MG TABS 1 pill by mouth daily LEVOFLOXACIN 11713712215 No Longer Active Jen Crystal MD PhD Active LISINOPRIL 5 MG TABS 1.5 tab qd LISINOPRIL 78163905737 Active Jen Crystal MD PhD Active KETOCONAZOLE 2 % CREA apply twice a day to rash KETOCONAZOLE 18209070005 No Longer Active Hector Love MD Active AUGMENTIN 875-125 MG TAB 1 tab by mouth twice daily with food AMOXICILLIN-POT CLAVULANATE 58280667197 No Longer Active Иван Mooney MD Active LOTRISONE 0.05-1 % CREAM Apply twice a day to affected area 07/19 CLOTRIMAZOLE-BETAMETHASONE 38817217186 No Longer Active Иван Mooney MD Active FEXOFENADINE HCL 180 MG TABS 1 Daily FEXOFENADINE HCL 24304753432 No Longer Active Hector Love MD Active PROGRAF 0.5 MG CAPS Take one by mouth daily with 1 mg TACROLIMUS 86129976990 No Longer Active Hector Love MD Active AMOXICILLIN 500 MG CAPS 2 po BID x 10 days AMOXICILLIN 35483206196 No Longer Active Hector Love MD Active RAPAMUNE 1 MG TABS 3 tabs in the am SIROLIMUS 72222031645 No Longer Active Hector Love MD Active AMOXICILLIN 500 MG CAPS 2 po BID x 10 days AMOXICILLIN 16116121741 No Longer Active Hector Love MD Active LORTAB 5 5-500 MG TABS 1/2 to 1 tablet by mouth every 4 hours as needed for pain HYDROCODONE-ACETAMINOPHEN 18517605058 No Longer Active Hector Love MD Active FLUTICASONE PROPIONATE 50 MCG/ACT SUSP INSTILL 2 SPRAYS IN EACH NOSTRIL Q D FLUTICASONE PROPIONATE 05022145100 No Longer Active Hector Love MD Active PROGRAF 1 MG CAPS 1 po bid TACROLIMUS 63543415741 No Longer Active Hector Love MD Active AMOXICILLIN 875 MG TABS 1 tab by mouth twice daily AMOXICILLIN 87028484760 No Longer Active Hector Love MD Active AMOXICILLIN 500 MG CAPS 2 po BID x 10 days AMOXICILLIN 18325386280 No Longer Active Hector Love MD Active AUGMENTIN 875-125 MG TAB 1 tab by mouth twice daily with food AMOXICILLIN-POT CLAVULANATE 71480523697 No Longer Active Hector Love MD Active AZITHROMYCIN 250 MG TABS 2 po qd x 1 day, then 1 po qd x 4 days AZITHROMYCIN 75384282064 No Longer Active Hector Love MD Active CETIRIZINE HCL 10 MG TABS 1 PO Q D CETIRIZINE HCL 43539653083 No Longer Active [place] Active PROGRAF 1 MG CAPS 1 po bid PROGRAF 1 MG CAPS 351516 TACROLIMUS Inactive FLUTICASONE PROPIONATE 50 MCG/ACT SUSP INSTILL 2 SPRAYS IN EACH NOSTRIL Q D FLUTICASONE PROPIONATE 50 MCG/ACT SUSP 6237965 FLUTICASONE PROPIONATE Inactive LORTAB 5 5-500 MG TABS 1/2 to 1 tablet by mouth every 4 hours as needed for pain LORTAB 5 5-500 MG TABS HYDROCODONE- ACETAMINOPHEN Inactive RAPAMUNE 1 MG TABS 3 tabs in the am RAPAMUNE 1 MG TABS 115971 SIROLIMUS Inactive PROGRAF 0.5 MG CAPS Take one by mouth daily with 1 mg PROGRAF 0.5 MG CAPS 465518 TACROLIMUS Inactive FEXOFENADINE HCL 180 MG TABS 1 Daily FEXOFENADINE HCL 180 MG TABS 596715 FEXOFENADINE HCL Inactive LOTRISONE 0.05-1 % CREAM Apply twice a day to affected area 07/19 LOTRISONE 0.05-1 % CREAM 975012 CLOTRIMAZOLE-BETAMETHASONE Inactive KETOCONAZOLE 2 % CREA apply twice a day to rash KETOCONAZOLE 2 % CREA 219326 KETOCONAZOLE Inactive AUGMENTIN 875-125 MG TAB 1 tab by mouth twice daily with food AUGMENTIN 875-125 MG TAB 493685 AMOXICILLIN-POT CLAVULANATE Inactive ZOFRAN 4 MG TABS 1 po q6hr PRN Nausea ZOFRAN 4 MG TABS 047619 ONDANSETRON HCL Inactive AMOXICILLIN 500 MG TABS 2 tabs twice a day for 10 days AMOXICILLIN 500 MG TABS 270195 AMOXICILLIN Inactive FLONASE ALLERGY RELIEF 50 MCG/ACT NASAL SUSP 2 sprays each nostril daily PRN allergies FLONASE ALLERGY RELIEF 50 MCG/ACT NASAL SUSP 6579652 FLUTICASONE PROPIONATE Inactive HYDROCODONE-ACETAMINOPHEN 5-325 MG TABS 1/2 to 1 po q 4 hours prn pain 11/06 HYDROCODONE-ACETAMINOPHEN 5-325 MG TABS 856204 HYDROCODONE- ACETAMINOPHEN Inactive AMOXICILLIN 500 MG CAPS 2 po BID x 10 days AMOXICILLIN 500 MG CAPS 795105 AMOXICILLIN Inactive AMOXICILLIN 875 MG TABS 1 tab by mouth twice daily AMOXICILLIN 875 MG TABS 289095 AMOXICILLIN Inactive AMOXICILLIN 500 MG CAPS 2 po BID x 10 days AMOXICILLIN 500 MG CAPS 886482 AMOXICILLIN Inactive AMOXICILLIN 500 MG CAPS 2 po BID x 10 days AMOXICILLIN 500 MG CAPS 461495 AMOXICILLIN Inactive AUGMENTIN 875-125 MG TAB 1 tab by mouth twice daily with food AUGMENTIN 875-125 MG TAB 008913 AMOXICILLIN-POT CLAVULANATE Inactive LEVAQUIN 500 MG TABS 1 pill by mouth daily LEVAQUIN 500 MG TABS 458509 LEVOFLOXACIN Inactive AMOXICILLIN 500 MG CAPS 2 po BID x 10 days AMOXICILLIN 500 MG CAPS 399145 AMOXICILLIN Inactive AMOXICILLIN 500 MG CAPS 1 cap by mouth three times a day AMOXICILLIN 500 MG CAPS 054517 AMOXICILLIN Inactive AUGMENTIN 875-125 MG TAB 1 po BID x 10 days AUGMENTIN 875-125 MG TAB 498223 AMOXICILLIN-POT CLAVULANATE Inactive PREDNISONE 20 MG TAB 2 po qd x 4 days PREDNISONE 20 MG TAB 457679 PREDNISONE Inactive AMOXICILLIN 500 MG TABS Take two tablets by mouth every 12 hours for 10 days AMOXICILLIN 500 MG TABS 347199 AMOXICILLIN Inactive Advance Directives Directive Description Start Date PERMISSION TO SHARE Immunizations Vaccine Administration Date Value Standard Description Seasonal influenza vaccine, injectable, preservative free, for > 3 years old ( Afluria, FluLaval, Fluzone, Fluvirin, Fluarix, Agriflu(>=18 yo)) Fluzone preservative free (>=3 yrs.) [[id number]] Influenza, seasonal, injectable, preservative free Adacel (Tetanus, reduced Diphtheria, and acellular Pertussis Immunization) Adacel [[id number]] tetanus toxoid, reduced diphtheria toxoid, and acellular pertussis vaccine, adsorbed DPT immunization #5 DTaP oral polio vaccine (OPV) #4 Historical poliovirus vaccine, unspecified formulation MMR (measles, mumps, rubella) virus immunization #2 MMR Hemophilus influenza B immunization #4 Hibtitre Haemophilus influenzae type b vaccine, conjugate unspecified formulation MMR (measles, mumps, rubella) virus immunization #1 MMR DPT immunization #4 DTaP Hemophilus influenza B immunization #3 Hibtitre Haemophilus influenzae type b vaccine, conjugate unspecified formulation oral polio vaccine (OPV) #3 Historical poliovirus vaccine, unspecified formulation hepatitis B vaccine #3 Historical hepatitis B vaccine, unspecified formulation DPT immunization #3 DPT oral polio vaccine (OPV) #2 Historical poliovirus vaccine, unspecified formulation Hemophilus influenza B immunization #2 Hibtitre Haemophilus influenzae type b vaccine, conjugate unspecified formulation DPT immunization #2 DPT hepatitis B vaccine #2 given Historical hepatitis B vaccine, unspecified formulation oral polio vaccine (OPV) #1 Historical poliovirus vaccine, unspecified formulation hepatitis B vaccine #1 given Historical hepatitis B vaccine, unspecified formulation Hemophilus influenza B immunization #1 Hibtitre Haemophilus influenzae type b vaccine, conjugate unspecified formulation DPT immunization #1 DPT Vital Signs Date Name Value Unit Range Description blood pressure, diastolic 79 mm[Hg] BP hidalgo [...] Name Value Unit Range Description Lab Report: RapidStrep Rflx/Cx - Lab Microbial identification kit, rapid strep method Negative-Throat Culture to Follow Negative Lab Report: Thyroid Stimulating Hormone (L), Free Thyroxine (L) - Chemistry thyroxine, serum, free 0.97 ng/dL 0.76-1.46 TSH 2.88 m[iU]/mL 0.36-3.74 Encounters Code Encounter Date Provider Facility CPT-65169 Level 3 Est. Patient 16:06:03 CDT Manish Castrejon Formerly named [facility] CPT-41420 Level 3 Est. Patient 09:57:24 CDT Manish Castrejon Formerly named [facility] CPT-74530 Level 3 Est. Patient 16:31:04 CDT Иван Mooney MD [facility]-81723 Level 4 Est. Patient 12:02:18 CDT Hector Love MD [facility]-29779 Level 3 Est. Patient 16:14:45 CDT Hector Love MD [facility] CPT-14375 Level 3 Est. Patient 16:53:35 CDT Иван Mooney MD [facility] CPT-10124 Level 3 Est. Patient 15:57:13 CDT Martha Montejo Formerly named [facility] CPT-93243 Level 3 Est. Patient 14:30:[address] LIGHT SERVICER Hector Love MD [facility] CPT-24367 Level 3 Est. Patient 14:50:45 CDT Hector Love MD [facility] CPT-29487 Level 3 Est. Patient 21:17:30 CDT Jen Crystal MD, PhD [facility] CPT-35157 Level 3 Est. Patient 09:32:55 CDT Hector Love MD [facility] CPT-95556 Level 3 Est. Patient 15:11:[address] LIGHT SERVICER Иван Mooney MD [facility] CPT-87587 Level 3 Est. Patient 16:38:[address] LIGHT SERVICER Hector Love MD [facility] CPT-57031 Level 3 Est. Patient 15:46:05 CDT Hector Love MD [facility] CPT-59689 Level 3 Est. Patient 13:59:39 CDT Hector Love MD [facility] CPT-60960 Level 3 Est. Patient 14:44:[address] LIGHT SERVICER Hector Love MD [facility] CPT-38751 Level 3 Est. Patient 17:12:27 CDT Hector Love MD [facility] CPT-30447 Level 3 Est. Patient 15:30:32 CDT Hector Love MD [facility] CPT-44283 Level 3 Est. Patient 14:24:52 CDT Иван Mooney MD [facility] CPT-99127 Level 3 Est. Patient 14:08:[address] LIGHT SERVICER Hector Love MD [facility] Procedures Code Procedure Name Date Entry Date Standard Description CPT-44751 Venipuncture Draw Fee 16:18:26 CDT CPT-32406 TB Skin Test 09:57:25 CDT CPT-000 Give Appropriate Flu Vaccine 16:22:[address] LIGHT SERVICER CPT-83775 Free T4 - LAB USE ONLY 11:38:58 CDT CPT-20557 TSH - LAB USE ONLY 11:38:58 CDT CPT-85830 Venipuncture Draw Fee 11:38:58 CDT CPT-57669 Fluzone Quadrivalent Intramuscular Suspension 0.5 ML 16: 12:[address] LIGHT SERVICER CPT-49876 Immunization Single Admin 16:12:[address] ST[address] LIGHT SERVICER CPT-J0561 Bicillin LA 1,200,000 u (PCN G Benzathine) 16:40:23 CDT CPT-37275 Abx/Therapy Injection 16:40:22 CDT CPT-J0561 Bicillin LA 1,200,000 u (PCN G Benzathine) 16:15:35 CDT CPT-05696 Immunization Single Admin 16:11:[address] STRE[address] LIGHT SERVICER CPT-99524 Fluzone Quadrivalent Intramuscular Suspension 0.5 ML 16: 11:[address] LIGHT SERVICER CPT-24222 Administration single or combination vaccine inc oral 13 :57:23 CDT CPT-89936 Menactra Intramuscular Injectable 13:57:23 CDT CPT-47168 First Vx Component - Ix admin via ID IM or jet inj without physician counseling 16:42:[address] ST[address] LIGHT SERVICER CPT-75858 Fluzone preservative free (>=3 yrs.) 16:42:[address] LIGHT SERVICER 06/03 CPT-91307 Venipuncture Draw Fee 16:29:01 CDT CPT-62515 Chest 2V Frontal and Lat 16:23:56 CDT CPT-61877 Administration single or combination vaccine inc oral 13 :39:[address] LIGHT SERVICER CPT-65006 Tdap 13:39:[address] LIGHT SERVICER
--- OUTSIDE RECORDS SUMMARY | 2017-11-06 01:03 | XMS REPORT | Clinical Summary ---
Author Author Admin, LAMBERT Organization [employer] Address Unknown Phone Unavailable Allergies, Adverse Reactions, [...] Acute upper respiratory infections of unspecified site FH DIABETES ICD-V18.0 Inactive Hector Love MD [...] Generic Name NDC Status Provider Patient Instruction PREDNISONE 20 MG TAB 2 po qd x 4 days PREDNISONE [id number] Active Hector Love MD Active HYDROCODONE-ACETAMINOPHEN 5-325 MG TABS 1/2 to 1 po q 4 hours prn pain 11/06 HYDROCODONE-ACETAMINOPHEN 31409991766 No Longer Active Hector Love MD Active FLONASE ALLERGY RELIEF 50 MCG/ACT NASAL SUSP 2 spray each nostril daily prn allergies FLUTICASONE PROPIONATE 51867328984 Active Hector Love MD Active AUGMENTIN 875-125 MG TAB 1 po BID x 10 days AMOXICILLIN-POT CLAVULANATE 42660999686 No Longer Active Hector Love MD Active FLONASE ALLERGY RELIEF 50 MCG/ACT NASAL SUSP 2 sprays each nostril daily PRN allergies FLUTICASONE PROPIONATE 54513052182 No Longer Active Hector Love MD Active AMOXICILLIN 500 MG CAPS 1 cap by mouth three times a day AMOXICILLIN 18472580425 No Longer Active Jillina Frazell BLUNGER MACHINE OPERATOR Active KEFLEX 500 MG CAP 1 tab po tid CEPHALEXIN 69411121170 No Longer Active Jillina Frazell BLUNGER MACHINE OPERATOR Active AMOXICILLIN 500 MG TABS 2 tabs twice a day for 10 days AMOXICILLIN 16492196915 No Longer Active Jillina Frazell BLUNGER MACHINE OPERATOR Active ZYRTEC ALLERGY 10 MG CAPS 1 po qd CETIRIZINE HCL 76191359388 Active Hector Love MD Active PROGRAF 1 MG CAPS 2 tabs po bid TACROLIMUS 36790933984 Active Hector Love MD Active ZOFRAN 4 MG TABS 1 po q6hr PRN Nausea ONDANSETRON HCL 63059154374 No Longer Active Ramona Diggs LPN Active AMOXICILLIN 500 MG CAPS 2 po BID x 10 days AMOXICILLIN 89339807724 No Longer Active Martha Montejo BLUNGER MACHINE OPERATOR Active AUGMENTIN 875-125 MG TAB 1 tab by mouth twice daily with food AMOXICILLIN-POT CLAVULANATE 64647153495 No Longer Active Hector Love MD Active LEVAQUIN 500 MG TABS 1 pill by mouth daily LEVOFLOXACIN 68346743124 No Longer Active Jen Crystal MD PhD Active LISINOPRIL 5 MG TABS 1.5 tab qd LISINOPRIL 06744000133 Active Jen Crystal MD PhD Active KETOCONAZOLE 2 % CREA apply twice a day to rash KETOCONAZOLE 90372355590 No Longer Active Hector Love MD Active AUGMENTIN 875-125 MG TAB 1 tab by mouth twice daily with food AMOXICILLIN-POT CLAVULANATE 90201770345 No Longer Active Иван Mooney MD Active LOTRISONE 0.05-1 % CREAM Apply twice a day to affected area 07/19 CLOTRIMAZOLE-BETAMETHASONE 15311879320 No Longer Active Иван Mooney MD Active FEXOFENADINE HCL 180 MG TABS 1 Daily FEXOFENADINE HCL 97231411137 No Longer Active Hector Love MD Active PROGRAF 0.5 MG CAPS Take one by mouth daily with 1 mg TACROLIMUS 18143952553 No Longer Active Hector Love MD Active AMOXICILLIN 500 MG CAPS 2 po BID x 10 days AMOXICILLIN 96984635754 No Longer Active Hector Love MD Active RAPAMUNE 1 MG TABS 3 tabs in the am SIROLIMUS 81846307986 No Longer Active Hector Love MD Active AMOXICILLIN 500 MG CAPS 2 po BID x 10 days AMOXICILLIN 50040855991 No Longer Active Hector Love MD Active LORTAB 5 5-500 MG TABS 1/2 to 1 tablet by mouth every 4 hours as needed for pain HYDROCODONE-ACETAMINOPHEN 47492430258 No Longer Active Hector Love MD Active FLUTICASONE PROPIONATE 50 MCG/ACT SUSP INSTILL 2 SPRAYS IN EACH NOSTRIL Q D FLUTICASONE PROPIONATE 84049171995 No Longer Active Hector Love MD Active PROGRAF 1 MG CAPS 1 po bid TACROLIMUS 66313595303 No Longer Active Hector Love MD Active AMOXICILLIN 875 MG TABS 1 tab by mouth twice daily AMOXICILLIN 97077616337 No Longer Active Hector Love MD Active AMOXICILLIN 500 MG CAPS 2 po BID x 10 days AMOXICILLIN 04576048897 No Longer Active Hector Love MD Active AUGMENTIN 875-125 MG TAB 1 tab by mouth twice daily with food AMOXICILLIN-POT CLAVULANATE 69705841546 No Longer Active Hector Love MD Active AZITHROMYCIN 250 MG TABS 2 po qd x 1 day, then 1 po qd x 4 days AZITHROMYCIN 98863458450 No Longer Active Hector Love MD Active CETIRIZINE HCL 10 MG TABS 1 PO Q D CETIRIZINE HCL 87734684020 No Longer Active [place] Active PROGRAF 1 MG CAPS 1 po bid PROGRAF 1 MG CAPS 262918 TACROLIMUS Inactive FLUTICASONE PROPIONATE 50 MCG/ACT SUSP INSTILL 2 SPRAYS IN EACH NOSTRIL Q D FLUTICASONE PROPIONATE 50 MCG/ACT SUSP 3374282 FLUTICASONE PROPIONATE Inactive LORTAB 5 5-500 MG TABS 1/2 to 1 tablet by mouth every 4 hours as needed for pain LORTAB 5 5-500 MG TABS HYDROCODONE- ACETAMINOPHEN Inactive RAPAMUNE 1 MG TABS 3 tabs in the am RAPAMUNE 1 MG TABS 345126 SIROLIMUS Inactive PROGRAF 0.5 MG CAPS Take one by mouth daily with 1 mg PROGRAF 0.5 MG CAPS 071407 TACROLIMUS Inactive FEXOFENADINE HCL 180 MG TABS 1 Daily FEXOFENADINE HCL 180 MG TABS 376316 FEXOFENADINE HCL Inactive LOTRISONE 0.05-1 % CREAM Apply twice a day to affected area 07/19 LOTRISONE 0.05-1 % CREAM 475537 CLOTRIMAZOLE-BETAMETHASONE Inactive KETOCONAZOLE 2 % CREA apply twice a day to rash KETOCONAZOLE 2 % CREA 118773 KETOCONAZOLE Inactive AUGMENTIN 875-125 MG TAB 1 tab by mouth twice daily with food AUGMENTIN 875-125 MG TAB 627836 AMOXICILLIN-POT CLAVULANATE Inactive ZOFRAN 4 MG TABS 1 po q6hr PRN Nausea ZOFRAN 4 MG TABS 660369 ONDANSETRON HCL Inactive AMOXICILLIN 500 MG TABS 2 tabs twice a day for 10 days AMOXICILLIN 500 MG TABS 132673 AMOXICILLIN Inactive FLONASE ALLERGY RELIEF 50 MCG/ACT NASAL SUSP 2 sprays each nostril daily PRN allergies FLONASE ALLERGY RELIEF 50 MCG/ACT NASAL SUSP 7314758 FLUTICASONE PROPIONATE Inactive HYDROCODONE-ACETAMINOPHEN 5-325 MG TABS 1/2 to 1 po q 4 hours prn pain 11/06 HYDROCODONE-ACETAMINOPHEN 5-325 MG TABS 719560 HYDROCODONE- ACETAMINOPHEN Inactive AMOXICILLIN 500 MG CAPS 2 po BID x 10 days AMOXICILLIN 500 MG CAPS 596176 AMOXICILLIN Inactive AMOXICILLIN 875 MG TABS 1 tab by mouth twice daily AMOXICILLIN 875 MG TABS 914617 AMOXICILLIN Inactive AMOXICILLIN 500 MG CAPS 2 po BID x 10 days AMOXICILLIN 500 MG CAPS 336197 AMOXICILLIN Inactive AMOXICILLIN 500 MG CAPS 2 po BID x 10 days AMOXICILLIN 500 MG CAPS 015136 AMOXICILLIN Inactive AUGMENTIN 875-125 MG TAB 1 tab by mouth twice daily with food AUGMENTIN 875-125 MG TAB 477734 AMOXICILLIN-POT CLAVULANATE Inactive LEVAQUIN 500 MG TABS 1 pill by mouth daily LEVAQUIN 500 MG TABS 286345 LEVOFLOXACIN Inactive AMOXICILLIN 500 MG CAPS 2 po BID x 10 days AMOXICILLIN 500 MG CAPS 335023 AMOXICILLIN Inactive AMOXICILLIN 500 MG CAPS 1 cap by mouth three times a day AMOXICILLIN 500 MG CAPS 392688 AMOXICILLIN Inactive AUGMENTIN 875-125 MG TAB 1 po BID x 10 days AUGMENTIN 875-125 MG TAB 753267 AMOXICILLIN-POT CLAVULANATE Inactive Advance Directives Directive Description Start Date PERMISSION TO SHARE Immunizations Vaccine Administration Date Value Standard Description Seasonal influenza vaccine, injectable, preservative free, for > 3 years old ( Afluria, FluLaval, Fluzone, Fluvirin, Fluarix, Agriflu(>=18 yo)) Fluzone preservative free (>=3 yrs.) [[id number]] Influenza, seasonal, injectable, preservative free Adacel (Tetanus, reduced Diphtheria, and acellular Pertussis Immunization) Adacel [[id number]] tetanus toxoid, reduced diphtheria toxoid, and acellular [...] E&M - 3141-9 237.6 [lb_av] Weight Measured blood pressure, diastolic - 8462-4 81 mm[Hg] BP [place] blood pressure, systolic - 8480-6 120 mm[Hg] BP sys pulse rate E&M - 8867-4 71 /min Heart rate temperature E&M 98.5 [degF] Body temperature weight E&M - 3141-9 243 [lb_av] Weight Measured Diagnostic Results Date Name Value Unit Range Description Lab Report: Thyroid Stimulating Hormone (L), Free Thyroxine (L) - Chemistry TSH 2.88 m[iU]/mL 0.36-3.74 thyroxine, serum, free 0.97 ng/dL 0.76-1.46 Encounters Code Encounter Date Provider Facility CPT-03034 Level 4 Est. Patient 12:02:18 CDT Hector Love MD [facility] CPT-47872 Level 3 Est. Patient 16:14:45 CDT Hector Love MD [facility] CPT-33190 Level 3 Est. Patient 16:53:35 CDT Иван Mooney MD [facility] CPT-01579 Level 3 Est. Patient 15:57:13 CDT Martha Montejo RADHA [facility] CPT-90807 Level 3 Est. Patient 14:30:47 [employer] Hector Love MD [facility] CPT-50707 Level 3 Est. Patient 14:50:45 CDT Hector Love MD [facility] CPT-25568 Level 3 Est. Patient 21:17:30 CDT Jen Crystal MD PhD [facility] CPT-71150 Level 3 Est. Patient 09:32:55 CDT Hector Love MD [facility] CPT-75765 Level 3 Est. Patient 15:11:08 [employer] Иван Mooney MD [facility] CPT-87571 Level 3 Est. Patient 16:38:53 [employer] Hector Love MD [facility] CPT-42420 Level 3 Est. Patient 15:46:05 CDT Hector Love MD [facility] CPT-96023 Level 3 Est. Patient 13:59:39 CDT Hector Love MD [facility] CPT-71065 Level 3 Est. Patient 14:44:46 [employer] Hector Love MD [facility] CPT-02978 Level 3 Est. Patient 17:12:27 CDT Hector Love MD [facility] CPT-88509 Level 3 Est. Patient 15:30:32 CDT Hector Love MD [facility] CPT-57621 Level 3 Est. Patient 14:24:52 CDT Иван Mooney MD [facility] CPT-40508 Level 3 Est. Patient 14:08:38 [employer] Hector Love MD [facility] Procedures Code Procedure Name Date Entry Date Standard Description CPT-78235 Fluzone Quadrivalent Intramuscular Suspension 0.5 ML 16: 12:26 [employer] CPT-89690 Immunization Single Admin 16:12:26 [employer] CPT-J0561 Bicillin LA 1,200,000 u (PCN G Benzathine) 16:40:23 CDT CPT-89687 Abx/Therapy Injection 16:40:22 CDT CPT-J0561 Bicillin LA 1,200,000 u (PCN G Benzathine) 16:15:35 CDT CPT-48991 Immunization Single Admin 16:11:28 [employer] CPT-97255 Fluzone Quadrivalent Intramuscular Suspension 0.5 ML 16: 11:28 [employer] CPT-93991 Administration single or combination vaccine inc oral 13 :57:23 CDT CPT-07227 Menactra Intramuscular Injectable 13:57:23 CDT CPT-37373 First Vx Component - Ix admin via ID IM or jet inj without physician counseling 16:42:17 [employer] CPT-53192 Fluzone preservative free (>=3 yrs.) 16:42:17 [employer] 06/03 CPT-61973 Venipuncture Draw Fee 16:29:01 CDT CPT-22441 Chest 2V Frontal and Lat 16:23:56 CDT CPT-46083 Administration single or combination vaccine inc oral 13 :39:17 [employer] CPT-10736 Tdap 13:39:17 [employer]
[2017-11-06] MEDS ORDERED: CETI10TA17 (01:04)
[2017-11-06] MEDS ORDERED: LISI-556 (01:04)
[2017-11-06] MEDS ORDERED: FLUT16SP22 (01:04)
[2017-11-06] MEDS ORDERED: TACR1CAP8 (01:04)
--- OUTSIDE RECORDS SUMMARY | 2017-11-06 01:04 | XMS REPORT | Clinical Summary ---
Author Author Admin, QIE Organization [facility] [employer] Address Unknown Phone Unavailable Allergies, Adverse Reactions, [...] 2 po qd x 4 days PREDNISONE 31842853664 Active Hector Love MD Active HYDROCODONE-ACETAMINOPHEN 5-325 MG TABS 1/2 to 1 po q 4 hours prn pain 11/06 HYDROCODONE-ACETAMINOPHEN 51755035906 No Longer Active Hector Love MD Active FLONASE ALLERGY RELIEF 50 MCG/ACT NASAL SUSP 2 spray each nostril daily prn allergies FLUTICASONE PROPIONATE 34406491537 Active Hector Love MD Active AUGMENTIN 875-125 MG TAB 1 po BID x 10 days AMOXICILLIN-POT CLAVULANATE 97446186982 No Longer Active Hector Love MD Active FLONASE ALLERGY RELIEF 50 MCG/ACT NASAL SUSP 2 sprays each nostril daily PRN allergies FLUTICASONE PROPIONATE 31113667220 No Longer Active Hector Love MD Active AMOXICILLIN 500 MG CAPS 1 cap by mouth three times a day AMOXICILLIN 60963986107 No Longer Active Jillina Frazell CHOKE REAMER Active KEFLEX 500 MG CAP 1 tab po tid CEPHALEXIN 18152147107 No Longer Active Jillina Frazell CHOKE REAMER Active AMOXICILLIN 500 MG TABS 2 tabs twice a day for 10 days AMOXICILLIN 73909226023 No Longer Active Jillina Fragretal CHOKE REAMER Active ZYRTEC ALLERGY 10 MG CAPS 1 po qd CETIRIZINE HCL 80244359695 Active Hector Love MD Active PROGRAF 1 MG CAPS 2 tabs po bid TACROLIMUS 51879618493 Active Hector Love MD Active ZOFRAN 4 MG TABS 1 po q6hr PRN Nausea ONDANSETRON HCL 05681875400 No Longer Active Ramona Diggs LPN Active AMOXICILLIN 500 MG CAPS 2 po BID x 10 days AMOXICILLIN 30717454759 No Longer Active Martha Montejo CHOKE REAMER Active AUGMENTIN 875-125 MG TAB 1 tab by mouth twice daily with food AMOXICILLIN-POT CLAVULANATE 29097671066 No Longer Active Hector Love MD Active LEVAQUIN 500 MG TABS 1 pill by mouth daily LEVOFLOXACIN 21025633803 No Longer Active Jen Crystal MD PhD Active LISINOPRIL 5 MG TABS 1.5 tab qd LISINOPRIL 11839358559 Active Jen Crystal MD PhD Active KETOCONAZOLE 2 % CREA apply twice a day to rash KETOCONAZOLE 26738897252 No Longer Active Hector Love MD Active AUGMENTIN 875-125 MG TAB 1 tab by mouth twice daily with food AMOXICILLIN-POT CLAVULANATE 39152983817 No Longer Active Иван Mooney MD Active LOTRISONE 0.05-1 % CREAM Apply twice a day to affected area 07/19 CLOTRIMAZOLE-BETAMETHASONE 99366080854 No Longer Active Иван Mooney MD Active FEXOFENADINE HCL 180 MG TABS 1 Daily FEXOFENADINE HCL 94090241907 No Longer Active Hector Love MD Active PROGRAF 0.5 MG CAPS Take one by mouth daily with 1 mg TACROLIMUS 62819863634 No Longer Active Hector Love MD Active AMOXICILLIN 500 MG CAPS 2 po BID x 10 days AMOXICILLIN 90841760238 No Longer Active Hector Love MD Active RAPAMUNE 1 MG TABS 3 tabs in the am SIROLIMUS 26571387592 No Longer Active Hector Love MD Active AMOXICILLIN 500 MG CAPS 2 po BID x 10 days AMOXICILLIN 11699984143 No Longer Active Hector Love MD Active LORTAB 5 5-500 MG TABS 1/2 to 1 tablet by mouth every 4 hours as needed for pain HYDROCODONE-ACETAMINOPHEN 28767067450 No Longer Active Hector Love MD Active FLUTICASONE PROPIONATE 50 MCG/ACT SUSP INSTILL 2 SPRAYS IN EACH NOSTRIL Q D FLUTICASONE PROPIONATE 99671366559 No Longer Active Hector Love MD Active PROGRAF 1 MG CAPS 1 po bid TACROLIMUS 14684665349 No Longer Active Hector Love MD Active AMOXICILLIN 875 MG TABS 1 tab by mouth twice daily AMOXICILLIN 13109501474 No Longer Active Hector Love MD Active AMOXICILLIN 500 MG CAPS 2 po BID x 10 days AMOXICILLIN 04656446277 No Longer Active Hector Love MD Active AUGMENTIN 875-125 MG TAB 1 tab by mouth twice daily with food AMOXICILLIN-POT CLAVULANATE 55458606783 No Longer Active Hector Love MD Active AZITHROMYCIN 250 MG TABS 2 po qd x 1 day, then 1 po qd x 4 days AZITHROMYCIN 53347373356 No Longer Active Hector Love MD Active CETIRIZINE HCL 10 MG TABS 1 PO Q D CETIRIZINE HCL 86412836805 No Longer Active [place] Active PROGRAF 1 MG CAPS 1 po bid PROGRAF 1 MG CAPS 142334 TACROLIMUS Inactive FLUTICASONE PROPIONATE 50 MCG/ACT SUSP INSTILL 2 SPRAYS IN EACH NOSTRIL Q D FLUTICASONE PROPIONATE 50 MCG/ACT SUSP 2182133 FLUTICASONE PROPIONATE Inactive LORTAB 5 5-500 MG TABS 1/2 to 1 tablet by mouth every 4 hours as needed for pain LORTAB 5 5-500 MG TABS HYDROCODONE- ACETAMINOPHEN Inactive RAPAMUNE 1 MG TABS 3 tabs in the am RAPAMUNE 1 MG TABS 524278 SIROLIMUS Inactive PROGRAF 0.5 MG CAPS Take one by mouth daily with 1 mg PROGRAF 0.5 MG CAPS 531720 TACROLIMUS Inactive FEXOFENADINE HCL 180 MG TABS 1 Daily FEXOFENADINE HCL 180 MG TABS 268553 FEXOFENADINE HCL Inactive LOTRISONE 0.05-1 % CREAM Apply twice a day to affected area 07/19 LOTRISONE 0.05-1 % CREAM 312334 CLOTRIMAZOLE-BETAMETHASONE Inactive KETOCONAZOLE 2 % CREA apply twice a day to rash KETOCONAZOLE 2 % CREA 285256 KETOCONAZOLE Inactive AUGMENTIN 875-125 MG TAB 1 tab by mouth twice daily with food AUGMENTIN 875-125 MG TAB 928102 AMOXICILLIN-POT CLAVULANATE Inactive ZOFRAN 4 MG TABS 1 po q6hr PRN Nausea ZOFRAN 4 MG TABS 136220 ONDANSETRON HCL Inactive AMOXICILLIN 500 MG TABS 2 tabs twice a day for 10 days AMOXICILLIN 500 MG TABS 293592 AMOXICILLIN Inactive FLONASE ALLERGY RELIEF 50 MCG/ACT NASAL SUSP 2 sprays each nostril daily PRN allergies FLONASE ALLERGY RELIEF 50 MCG/ACT NASAL SUSP 1817756 FLUTICASONE PROPIONATE Inactive HYDROCODONE-ACETAMINOPHEN 5-325 MG TABS 1/2 to 1 po q 4 hours prn pain 11/06 HYDROCODONE-ACETAMINOPHEN 5-325 MG TABS 339198 HYDROCODONE- ACETAMINOPHEN Inactive AMOXICILLIN 500 MG CAPS 2 po BID x 10 days AMOXICILLIN 500 MG CAPS 446385 AMOXICILLIN Inactive AMOXICILLIN 875 MG TABS 1 tab by mouth twice daily AMOXICILLIN 875 MG TABS 109792 AMOXICILLIN Inactive AMOXICILLIN 500 MG CAPS 2 po BID x 10 days AMOXICILLIN 500 MG CAPS 035250 AMOXICILLIN Inactive AMOXICILLIN 500 MG CAPS 2 po BID x 10 days AMOXICILLIN 500 MG CAPS 386822 AMOXICILLIN Inactive AUGMENTIN 875-125 MG TAB 1 tab by mouth twice daily with food AUGMENTIN 875-125 MG TAB 813400 AMOXICILLIN-POT CLAVULANATE Inactive LEVAQUIN 500 MG TABS 1 pill by mouth daily LEVAQUIN 500 MG TABS 481477 LEVOFLOXACIN Inactive AMOXICILLIN 500 MG CAPS 2 po BID x 10 days AMOXICILLIN 500 MG CAPS 227008 AMOXICILLIN Inactive AMOXICILLIN 500 MG CAPS 1 cap by mouth three times a day AMOXICILLIN 500 MG CAPS 115076 AMOXICILLIN Inactive AUGMENTIN 875-125 MG TAB 1 po BID x 10 days AUGMENTIN 875-125 MG TAB 501529 AMOXICILLIN-POT CLAVULANATE Inactive Advance Directives Directive Description Start Date PERMISSION TO SHARE Immunizations Vaccine Administration Date Value Standard Description Seasonal influenza vaccine, injectable, preservative free, for > 3 years old ( Afluria, FluLaval, Fluzone, Fluvirin, Fluarix, Agriflu(>=18 yo)) Fluzone preservative free (>=3 yrs.) [[id number]] Influenza, seasonal, injectable, preservative free Adacel (Tetanus, reduced Diphtheria, and acellular Pertussis Immunization) Adacel [[id number]] tetanus toxoid, reduced diphtheria toxoid, and acellular [...] E&M - 3141-9 243 [lb_av] Weight Measured Encounters Code Encounter Date Provider Facility CPT-01448 Level 4 Est. Patient 12:02:18 CDT Hector Love MD [facility] CPT-29621 Level 3 Est. Patient 16:14:45 CDT Hector Love MD [facility] CPT-80435 Level 3 Est. Patient 16:53:35 CDT Иван Mooney MD [facility] CPT-20636 Level 3 Est. Patient 15:57:13 CDT Martha Montejo APRN [facility] CPT-53890 Level 3 Est. Patient 14:30:47 RN PACU Hector Love MD [facility] CPT-35781 Level 3 Est. Patient 14:50:45 CDT Hector Love MD [facility] CPT-97127 Level 3 Est. Patient 21:17:30 CDT Jen Crystal MD PhD [facility] CPT-90310 Level 3 Est. Patient 09:32:55 CDT Hector Love MD [facility] CPT-73081 Level 3 Est. Patient 15:11:08 RN PACU Иван Mooney MD [facility] CPT-68769 Level 3 Est. Patient 16:38:53 RN PACU Hector Love MD [facility] CPT-03540 Level 3 Est. Patient 15:46:05 CDT Hector Love MD [facility] CPT-40899 Level 3 Est. Patient 13:59:39 CDT Hector Love MD [facility] CPT-10485 Level 3 Est. Patient 14:44:46 RN PACU eHctor Love MD [facility] CPT-95251 Level 3 Est. Patient 17:12:27 CDT Hector Love MD [facility] CPT-86680 Level 3 Est. Patient 15:30:32 CDT Hector Love MD [facility] CPT-40671 Level 3 Est. Patient 14:24:52 CDT Иван Mooney MD [facility] CPT-01254 Level 3 Est. Patient 14:08:38 RN PACU Hector Love MD [facility] Procedures Code Procedure Name Date Entry Date Standard Description CPT-27440 Fluzone Quadrivalent Intramuscular Suspension 0.5 ML 16: 12:26 RN PACU CPT-39931 Immunization Single Admin 16:12:26 RN PACU CPT-J0561 Bicillin LA 1,200,000 u (PCN G Benzathine) 16:40:23 CDT CPT-08749 Abx/Therapy Injection 16:40:22 CDT CPT-J0561 Bicillin LA 1,200,000 u (PCN G Benzathine) 16:15:35 CDT CPT-95282 Immunization Single Admin 16:11:28 RN PACU CPT-39428 Fluzone Quadrivalent Intramuscular Suspension 0.5 ML 16: 11:28 RN PACU CPT-46995 Administration single or combination vaccine inc oral 13 :57:23 CDT CPT-64308 Menactra Intramuscular Injectable 13:57:23 CDT CPT-81726 First Vx Component - Ix admin via ID IM or jet inj without physician counseling 16:42:17 RN PACU CPT-58802 Fluzone preservative free (>=3 yrs.) 16:42:17 RN PACU 06/03 CPT-37197 Venipuncture Draw Fee 16:29:01 CDT CPT-75086 Chest 2V Frontal and Lat 16:23:56 CDT CPT-96230 Administration single or combination vaccine inc oral 13 :39:17 RN PACU CPT-30920 Tdap 13:39:17 RN PACU
--- OUTSIDE RECORDS SUMMARY | 2017-11-06 01:05 | XMS REPORT | Clinical Summary ---
Author Author Admin, LAMBERT Organization [facility] Address Unknown Phone Unavailable Allergies, Adverse Reactions, [...] STREPTOCOCCUS PNEUMONIAE (PNEUMOCOCCUS) AND INFLUENZA V06.6 Resolved Hcetor Love MD Need for prophylactic vaccination and inoculation against Streptococcus pneumoniae [pneumococcus] and influenza Gastroenteritis, viral, acute 008.8 Resolved Martha Montejo APRN Intestinal infection due to other organism, not elsewhere classified Bronchitis 490 Resolved Hector Love MD Bronchitis, not specified as acute or chronic Pharyngitis 462 Active Иван Mooney MD Acute [...] Bronchitis ICD-490 Inactive Hector Love MD 2014 Medication List Medication Instructions Start Date Stop Date Generic Name NDC Status Provider Patient Instruction ZYRTEC ALLERGY 10 MG CAPS 1 po qd CETIRIZINE HCL 68958668354 Active Hector Love MD Active PROGRAF 1 MG CAPS 2 tabs po bid TACROLIMUS 67111762245 Active Hector Love MD Active AMOXICILLIN 500 MG TABS 2 tabs twice a day for 10 days AMOXICILLIN 82000769441 Active Иван Mooney MD Active ZOFRAN 4 MG TABS 1 po q6hr PRN Nausea ONDANSETRON HCL 24391497715 No Longer Active Ramona Diggs LPN Active AMOXICILLIN 500 MG CAPS 2 po BID x 10 days AMOXICILLIN 51547890580 No Longer Active Martha Montejo APRN Active AUGMENTIN 875-125 MG TAB 1 tab by mouth twice daily with food AMOXICILLIN-POT CLAVULANATE 10801863763 No Longer Active Hector Love MD Active FLONASE 50 MCG/ACT SUSP 2 puffs in each nostril daily PRN Allergies FLUTICASONE PROPIONATE 00267069968 Active Hector Love MD Active LEVAQUIN 500 MG TABS 1 pill by mouth daily LEVOFLOXACIN 18974604377 No Longer Active Jen Crystal MD PhD Active LISINOPRIL 5 MG TABS 1.5 tab qd LISINOPRIL 07470567861 Active Jen Crystal MD PhD Active KETOCONAZOLE 2 % CREA apply twice a day to rash KETOCONAZOLE 74790214341 No Longer Active Hector Love MD Active AUGMENTIN 875-125 MG TAB 1 tab by mouth twice daily with food AMOXICILLIN-POT CLAVULANATE 65229709744 No Longer Active Иван Mooney MD Active LOTRISONE 0.05-1 % CREAM Apply twice a day to affected area 07/19 CLOTRIMAZOLE-BETAMETHASONE 72519512006 No Longer Active Иван Mooney MD Active FEXOFENADINE HCL 180 MG TABS 1 Daily FEXOFENADINE HCL 29665087987 No Longer Active Hector Love MD Active PROGRAF 0.5 MG CAPS Take one by mouth daily with 1 mg TACROLIMUS 46232841959 No Longer Active Hector Love MD Active AMOXICILLIN 500 MG CAPS 2 po BID x 10 days AMOXICILLIN 80100442581 No Longer Active Hector Love MD Active RAPAMUNE 1 MG TABS 3 tabs in the am SIROLIMUS 24804835133 No Longer Active Hector Love MD Active AMOXICILLIN 500 MG CAPS 2 po BID x 10 days AMOXICILLIN 02540348516 No Longer Active Hector Love MD Active LORTAB 5 5-500 MG TABS 1/2 to 1 tablet by mouth every 4 hours as needed for pain HYDROCODONE-ACETAMINOPHEN 87026517649 No Longer Active Hector Love MD Active FLUTICASONE PROPIONATE 50 MCG/ACT SUSP INSTILL 2 SPRAYS IN EACH NOSTRIL Q D FLUTICASONE PROPIONATE 98228432599 No Longer Active Hector Love MD Active PROGRAF 1 MG CAPS 1 po bid TACROLIMUS 94778579323 No Longer Active Hector Love MD Active AMOXICILLIN 875 MG TABS 1 tab by mouth twice daily AMOXICILLIN 63046072442 No Longer Active Hector Love MD Active AMOXICILLIN 500 MG CAPS 2 po BID x 10 days AMOXICILLIN 85763871338 No Longer Active Hector Love MD Active AUGMENTIN 875-125 MG TAB 1 tab by mouth twice daily with food AMOXICILLIN-POT CLAVULANATE 86372289573 No Longer Active Hector Love MD Active AZITHROMYCIN 250 MG TABS 2 po qd x 1 day, then 1 po qd x 4 days AZITHROMYCIN 95407963397 No Longer Active Hector Love MD Active CETIRIZINE HCL 10 MG TABS 1 PO Q D CETIRIZINE HCL 80845565721 No Longer Active [place] Active PROGRAF 1 MG CAPS 1 po bid PROGRAF 1 MG CAPS 889075 TACROLIMUS Inactive FLUTICASONE PROPIONATE 50 MCG/ACT SUSP INSTILL 2 SPRAYS IN EACH NOSTRIL Q D FLUTICASONE PROPIONATE 50 MCG/ACT SUSP 208937 FLUTICASONE PROPIONATE Inactive LORTAB 5 5-500 MG TABS 1/2 to 1 tablet by mouth every 4 hours as needed for pain LORTAB 5 5-500 MG TABS HYDROCODONE- ACETAMINOPHEN Inactive RAPAMUNE 1 MG TABS 3 tabs in the am RAPAMUNE 1 MG TABS 610993 SIROLIMUS Inactive PROGRAF 0.5 MG CAPS Take one by mouth daily with 1 mg PROGRAF 0.5 MG CAPS 404495 TACROLIMUS Inactive FEXOFENADINE HCL 180 MG TABS 1 Daily FEXOFENADINE HCL 180 MG TABS 709185 FEXOFENADINE HCL Inactive LOTRISONE 0.05-1 % CREAM Apply twice a day to affected area 07/19 LOTRISONE 0.05-1 % CREAM 365743 CLOTRIMAZOLE-BETAMETHASONE Inactive KETOCONAZOLE 2 % CREA apply twice a day to rash KETOCONAZOLE 2 % CREA 948733 KETOCONAZOLE Inactive AUGMENTIN 875-125 MG TAB 1 tab by mouth twice daily with food AUGMENTIN 875-125 MG TAB 328072 AMOXICILLIN-POT CLAVULANATE Inactive ZOFRAN 4 MG TABS 1 po q6hr PRN Nausea ZOFRAN 4 MG TABS 928562 ONDANSETRON HCL Inactive AMOXICILLIN 500 MG CAPS 2 po BID x 10 days AMOXICILLIN 500 MG CAPS 757520 AMOXICILLIN Inactive AMOXICILLIN 875 MG TABS 1 tab by mouth twice daily AMOXICILLIN 875 MG TABS 079326 AMOXICILLIN Inactive AMOXICILLIN 500 MG CAPS 2 po BID x 10 days AMOXICILLIN 500 MG CAPS 195030 AMOXICILLIN Inactive AMOXICILLIN 500 MG CAPS 2 po BID x 10 days AMOXICILLIN 500 MG CAPS 632145 AMOXICILLIN Inactive AUGMENTIN 875-125 MG TAB 1 tab by mouth twice daily with food AUGMENTIN 875-125 MG TAB 584109 AMOXICILLIN-POT CLAVULANATE Inactive LEVAQUIN 500 MG TABS 1 pill by mouth daily LEVAQUIN 500 MG TABS 041890 LEVOFLOXACIN Inactive AMOXICILLIN 500 MG CAPS 2 po BID x 10 days AMOXICILLIN 500 MG CAPS 724776 AMOXICILLIN Inactive Advance Directives Directive Description Start Date PERMISSION TO SHARE Immunizations Vaccine Administration Date Value Standard Description Seasonal influenza vaccine, injectable, preservative free, for > 3 years old ( Afluria, FluLaval, Fluzone, Fluvirin, Fluarix, Agriflu(>=18 yo)) Fluzone preservative free (>=3 yrs.) [[id number]] Influenza, seasonal, injectable, preservative free Adacel (Tetanus, reduced Diphtheria, and acellular Pertussis Immunization) Adacel [[id number]] tetanus toxoid, reduced diphtheria toxoid, and acellular [...] Range Description blood pressure, diastolic - 8462-4 78 mm[Hg] BP [place] blood pressure, systolic - 8480-6 120 mm[Hg] BP sys pulse rate E&M - 8867-4 76 /min Heart rate temperature E&M 97.9 [degF] Body temperature weight E&M - 3141-9 239 [lb_av] Weight Measured blood pressure, diastolic - 8462-4 86 mm[Hg] BP [place] blood pressure, systolic - 8480-6 134 mm[Hg] BP sys pulse rate E&M - 8867-4 75 /min Heart rate temperature E&M 97.9 [degF] Body temperature weight E&M - 3141-9 241.8 [lb_av] Weight Measured blood pressure, diastolic - 8462-4 79 mm[Hg] BP [place] blood pressure, systolic - 8480-6 132 mm[Hg] BP sys height E&M - 8302-2 71 [in_us] Bdy height pulse rate E&M - 8867-4 83 /min Heart rate temperature E&M 98.4 [degF] Body temperature weight E&M - 3141-9 241.6 [lb_av] Weight Measured blood pressure, diastolic - 8462-4 82 mm[Hg] BP [place] blood pressure, systolic - 8480-6 117 mm[Hg] BP sys pulse rate E&M - 8867-4 76 /min Heart rate temperature E&M 98.3 [degF] Body temperature weight E&M - 3141-9 241.5 [lb_av] Weight Measured blood pressure, diastolic - 8462-4 90 mm[Hg] BP [place] blood pressure, systolic - 8480-6 140 mm[Hg] BP sys pulse rate E&M - 8867-4 76 /min Heart rate temperature E&M 97.4 [degF] Body temperature weight E&M - 3141-9 233.56 [lb_av] Weight Measured blood pressure, diastolic - 8462-4 74 mm[Hg] BP [place] blood pressure, systolic - 8480-6 114 mm[Hg] BP sys height E&M - 8302-2 70.5 [in_us] Bdy height pulse rate E&M - 8867-4 86 /min Heart rate temperature E&M 98.1 [degF] Body temperature weight E&M - 3141-9 234 [lb_av] Weight Measured Diagnostic Results Date Name Value Unit Range Description Chart Maintenance: Outside labs entered on flowsheet - Chemistry sodium, serum 139 mmol/L potassium, serum 4.2 mmol/L blood glucose 100 mg/dL creatinine, serum 0.90 mg/dL aspartate aminotransferase (SGOT), serum 27 U/L alanine aminotransferase (SGPT), serum 47 U/L alkaline phosphatase, serum 68 U/L sodium, serum 139 mmol/L potassium, serum 4.1 mmol/L blood glucose 120 mg/dL creatinine, serum 0.90 mg/dL aspartate aminotransferase (SGOT), serum 29 U/L alanine aminotransferase (SGPT), serum 58 U/L alkaline phosphatase, serum 73 U/L Chart Maintenance: Outside labs entered on flowsheet - Hematology leukocyte count, blood 7.9 10*3/mm3 hemoglobin, blood 14.8 g/dL platelet count 223 10*3/mm3 leukocyte count, blood 8.6 10*3/mm3 hemoglobin, blood 15.0 g/dL platelet count 244 10*3/mm3 Lab Report: CBC W/DIFF, MONO w/Rflx EBV, Myco Pneumo, RapidStrep Rflx/Cx - Hematology leukocyte count, blood 16.1 10^3/MM^3 10*3/mm3 4.6-10.2 neutrophils as percent of blood leukocytes 66.3 % 42.2-75.2 monocytes as percent of blood leukocytes 9.6 % 1.7-9.3 lymphocytes as percent of blood leukocytes 20.5 % 20.5-51.1 erythrocyte (RBC) count 5.01 10^6/MM^3 10*6/mm3 4.69-6.13 hemoglobin, blood 15.3 g/dL 13.5-17.5 hematocrit, blood 45.0 % 41.0-53.0 mean corpuscular volume, RBC 90 fL 80-97 mean corpuscular hemoglobin, RBC 30.5 pg 27.0-31.2 mean corpuscular hemoglobin concentration, RBC 33.9 G/DL % 31.8- 35.4 red blood cell distribution width 14.3 % 11.6-14.8 platelet count 235 10^3/MM^3 10*3/mm3 142-424 Lab Report: CBC W/DIFF, MONO w/Rflx EBV, Myco Pneumo, RapidStrep Rflx/Cx - Lab Microbial identification kit, rapid strep method Negative-Throat Culture to Follow Negative Encounters Code Encounter Date Provider Facility CPT-42064 Level 3 Est. Patient 16:14:45 CDT Hector Love MD [facility] CPT-78530 Level 3 Est. Patient 16:53:35 CDT Иван Mooney MD [facility] CPT-71887 Level 3 Est. Patient 15:57:13 CDT Martha Montejo APRN [facility] CPT-26346 Level 3 Est. Patient 14:30:47 PROCESS SAFETY SPECIALIST Hector Love MD [facility] CPT-03105 Level 3 Est. Patient 14:50:45 CDT Hector Love MD [facility] CPT-59728 Level 3 Est. Patient 21:17:30 CDT Jen Crystal MD PhD [facility] CPT-29663 Level 3 Est. Patient 09:32:55 CDT Hector Love MD [facility] CPT-53697 Level 3 Est. Patient 15:11:08 PROCESS SAFETY SPECIALIST Иван Mooney MD [facility] CPT-47100 Level 3 Est. Patient 16:38:53 PROCESS SAFETY SPECIALIST Hector Love MD [facility] CPT-91019 Level 3 Est. Patient 15:46:05 CDT Hector Love MD [facility] CPT-36858 Level 3 Est. Patient 13:59:39 CDT Hector Love MD [facility] CPT-00670 Level 3 Est. Patient 14:44:46 PROCESS SAFETY SPECIALIST Hector Love MD [facility] CPT-65782 Level 3 Est. Patient 17:12:27 CDT Hector Love MD [facility] CPT-85501 Level 3 Est. Patient 15:30:32 CDT Hector Love MD [facility] CPT-75400 Level 3 Est. Patient 14:24:52 CDT Иван Mooney MD [facility] CPT-22835 Level 3 Est. Patient 14:08:38 PROCESS SAFETY SPECIALIST Hector Love MD [facility] Procedures Code Procedure Name Date Entry Date Standard Description CPT-J0561 Bicillin LA 1,200,000 u (PCN G Benzathine) 16:40:23 CDT CPT-35573 Abx/Therapy Injection 16:40:22 CDT CPT-J0561 Bicillin LA 1,200,000 u (PCN G Benzathine) 16:15:35 CDT CPT-84419 Immunization Single Admin 16:11:28 PROCESS SAFETY SPECIALIST CPT-39099 Fluzone Quadrivalent Intramuscular Suspension 0.5 ML 16: 11:28 PROCESS SAFETY SPECIALIST CPT-97655 Administration single or combination vaccine inc oral 13 :57:23 CDT CPT-07238 Menactra Intramuscular Injectable 13:57:23 CDT CPT-51773 First Vx Component - Ix admin via ID IM or jet inj without physician counseling 16:42:17 PROCESS SAFETY SPECIALIST CPT-29674 Fluzone preservative free (>=3 yrs.) 16:42:17 PROCESS SAFETY SPECIALIST 06/03 CPT-08340 Venipuncture Draw Fee 16:29:01 CDT CPT-76669 Chest 2V Frontal and Lat 16:23:56 CDT CPT-58056 Administration single or combination vaccine inc oral 13 :39:17 PROCESS SAFETY SPECIALIST CPT-55047 Tdap 13:39:17 PROCESS SAFETY SPECIALIST
--- OUTSIDE RECORDS SUMMARY | 2017-11-06 01:05 | XMS REPORT | Clinical Summary ---
Author Author Admin, LAMBERT Organization [facility] Address Unknown Phone Unavailable Allergies, Adverse Reactions, [...] PNEUMONIAE (PNEUMOCOCCUS) AND INFLUENZA V06.6 Resolved Hector oLve MD Need for prophylactic vaccination and inoculation against Streptococcus pneumoniae [pneumococcus] and influenza Gastroenteritis, viral, acute 008.8 Resolved Martha Montejo INFORMATICS DEVELOPER Intestinal infection due to other organism, not elsewhere classified Bronchitis 490 Resolved Hector Love MD Bronchitis, not specified as acute or chronic Pharyngitis 462 Active Иван Mooney MD Acute pharyngitis Ingrown toenail 703.0 Active Manish Castrejon INFORMATICS DEVELOPER Ingrowing nail Ingrown toenail, right 703.0 Active Hector Love MD Ingrowing nail FH DIABETES ICD-V18.0 Inactive Hector Love MD [...] Generic Name NDC Status Provider Patient Instruction HYDROCODONE-ACETAMINOPHEN 5-325 MG TABS 1/2 to 1 po q 4 hours prn pain 11/06 HYDROCODONE-ACETAMINOPHEN 85273094021 Active Hector Love MD Active AUGMENTIN 875-125 MG TAB 1 po BID x 10 days AMOXICILLIN-POT CLAVULANATE 20455740798 Active Hector Love MD Active FLONASE ALLERGY RELIEF 50 MCG/ACT NASAL SUSP 2 sprays each nostril daily PRN allergies FLUTICASONE PROPIONATE 48623267825 No Longer Active Hector Love MD Active AMOXICILLIN 500 MG CAPS 1 cap by mouth three times a day AMOXICILLIN 29350848480 No Longer Active Jillina Frazelalejandrina NOWAKN Active KEFLEX 500 MG CAP 1 tab po tid CEPHALEXIN 41036963311 No Longer Active Jillina Frazell INFORMATICS DEVELOPER Active AMOXICILLIN 500 MG TABS 2 tabs twice a day for 10 days AMOXICILLIN 98324968314 No Longer Active Manish Castrejon APRN Active ZYRTEC ALLERGY 10 MG CAPS 1 po qd CETIRIZINE HCL 59774261363 Active Hector Love MD Active PROGRAF 1 MG CAPS 2 tabs po bid TACROLIMUS 20821094113 Active Hector Love MD Active ZOFRAN 4 MG TABS 1 po q6hr PRN Nausea ONDANSETRON HCL 88693335059 No Longer Active Ramona Diggs LPN Active AMOXICILLIN 500 MG CAPS 2 po BID x 10 days AMOXICILLIN 50759590624 No Longer Active Martha Yohenrique INFORMATICS DEVELOPER Active AUGMENTIN 875-125 MG TAB 1 tab by mouth twice daily with food AMOXICILLIN-POT CLAVULANATE 06945465595 No Longer Active Hector Love MD Active LEVAQUIN 500 MG TABS 1 pill by mouth daily LEVOFLOXACIN 34461796503 No Longer Active Jen Crystal MD PhD Active LISINOPRIL 5 MG TABS 1.5 tab qd LISINOPRIL 64490760096 Active Jen Crystal MD PhD Active KETOCONAZOLE 2 % CREA apply twice a day to rash KETOCONAZOLE 44778907241 No Longer Active Hector Loev MD Active AUGMENTIN 875-125 MG TAB 1 tab by mouth twice daily with food AMOXICILLIN-POT CLAVULANATE 00807046969 No Longer Active Иван Mooney MD Active LOTRISONE 0.05-1 % CREAM Apply twice a day to affected area 07/19 CLOTRIMAZOLE-BETAMETHASONE 21165210348 No Longer Active Иван Mooney MD Active FEXOFENADINE HCL 180 MG TABS 1 Daily FEXOFENADINE HCL 51918085039 No Longer Active Hector Love MD Active PROGRAF 0.5 MG CAPS Take one by mouth daily with 1 mg TACROLIMUS 31270377904 No Longer Active Hector Love MD Active AMOXICILLIN 500 MG CAPS 2 po BID x 10 days AMOXICILLIN 45443204044 No Longer Active Hector Love MD Active RAPAMUNE 1 MG TABS 3 tabs in the am SIROLIMUS 33186053378 No Longer Active Hector Love MD Active AMOXICILLIN 500 MG CAPS 2 po BID x 10 days AMOXICILLIN 84514222727 No Longer Active Hector Love MD Active LORTAB 5 5-500 MG TABS 1/2 to 1 tablet by mouth every 4 hours as needed for pain HYDROCODONE-ACETAMINOPHEN 42878609038 No Longer Active Hector Love MD Active FLUTICASONE PROPIONATE 50 MCG/ACT SUSP INSTILL 2 SPRAYS IN EACH NOSTRIL Q D FLUTICASONE PROPIONATE 71869285708 No Longer Active Hector Love MD Active PROGRAF 1 MG CAPS 1 po bid TACROLIMUS 34806495227 No Longer Active Hector Love MD Active AMOXICILLIN 875 MG TABS 1 tab by mouth twice daily AMOXICILLIN 61552672986 No Longer Active Hector Love MD Active AMOXICILLIN 500 MG CAPS 2 po BID x 10 days AMOXICILLIN 68022955689 No Longer Active Hector Love MD Active AUGMENTIN 875-125 MG TAB 1 tab by mouth twice daily with food AMOXICILLIN-POT CLAVULANATE 59522160989 No Longer Active Hector Love MD Active AZITHROMYCIN 250 MG TABS 2 po qd x 1 day, then 1 po qd x 4 days AZITHROMYCIN 19468353214 No Longer Active Hector Love MD Active CETIRIZINE HCL 10 MG TABS 1 PO Q D CETIRIZINE HCL 84329174591 No Longer Active [place] Active PROGRAF 1 MG CAPS 1 po bid PROGRAF 1 MG CAPS 640688 TACROLIMUS Inactive FLUTICASONE PROPIONATE 50 MCG/ACT SUSP INSTILL 2 SPRAYS IN EACH NOSTRIL Q D FLUTICASONE PROPIONATE 50 MCG/ACT SUSP 210047 FLUTICASONE PROPIONATE Inactive LORTAB 5 5-500 MG TABS 1/2 to 1 tablet by mouth every 4 hours as needed for pain LORTAB 5 5-500 MG TABS HYDROCODONE- ACETAMINOPHEN Inactive RAPAMUNE 1 MG TABS 3 tabs in the am RAPAMUNE 1 MG TABS 885748 SIROLIMUS Inactive PROGRAF 0.5 MG CAPS Take one by mouth daily with 1 mg PROGRAF 0.5 MG CAPS 040668 TACROLIMUS Inactive FEXOFENADINE HCL 180 MG TABS 1 Daily FEXOFENADINE HCL 180 MG TABS 818676 FEXOFENADINE HCL Inactive LOTRISONE 0.05-1 % CREAM Apply twice a day to affected area 07/19 LOTRISONE 0.05-1 % CREAM 584641 CLOTRIMAZOLE-BETAMETHASONE Inactive KETOCONAZOLE 2 % CREA apply twice a day to rash KETOCONAZOLE 2 % CREA 689792 KETOCONAZOLE Inactive AUGMENTIN 875-125 MG TAB 1 tab by mouth twice daily with food AUGMENTIN 875-125 MG TAB 491462 AMOXICILLIN-POT CLAVULANATE Inactive ZOFRAN 4 MG TABS 1 po q6hr PRN Nausea ZOFRAN 4 MG TABS 009418 ONDANSETRON HCL Inactive AMOXICILLIN 500 MG TABS 2 tabs twice a day for 10 days AMOXICILLIN 500 MG TABS 675487 AMOXICILLIN Inactive FLONASE ALLERGY RELIEF 50 MCG/ACT NASAL SUSP 2 sprays each nostril daily PRN allergies FLONASE ALLERGY RELIEF 50 MCG/ACT NASAL SUSP 936313 FLUTICASONE PROPIONATE Inactive AMOXICILLIN 500 MG CAPS 2 po BID x 10 days AMOXICILLIN 500 MG CAPS 968747 AMOXICILLIN Inactive AMOXICILLIN 875 MG TABS 1 tab by mouth twice daily AMOXICILLIN 875 MG TABS 802030 AMOXICILLIN Inactive AMOXICILLIN 500 MG CAPS 2 po BID x 10 days AMOXICILLIN 500 MG CAPS 806267 AMOXICILLIN Inactive AMOXICILLIN 500 MG CAPS 2 po BID x 10 days AMOXICILLIN 500 MG CAPS 765487 AMOXICILLIN Inactive AUGMENTIN 875-125 MG TAB 1 tab by mouth twice daily with food AUGMENTIN 875-125 MG TAB 812605 AMOXICILLIN-POT CLAVULANATE Inactive LEVAQUIN 500 MG TABS 1 pill by mouth daily LEVAQUIN 500 MG TABS 354313 LEVOFLOXACIN Inactive AMOXICILLIN 500 MG CAPS 2 po BID x 10 days AMOXICILLIN 500 MG CAPS 133585 AMOXICILLIN Inactive AMOXICILLIN 500 MG CAPS 1 cap by mouth three times a day AMOXICILLIN 500 MG CAPS 054938 AMOXICILLIN Inactive Advance Directives Directive Description Start Date PERMISSION TO SHARE Immunizations Vaccine Administration Date Value Standard Description Seasonal influenza vaccine, injectable, preservative free, for > 3 years old ( Afluria, FluLaval, Fluzone, Fluvirin, Fluarix, Agriflu(>=18 yo)) Fluzone preservative free (>=3 yrs.) [[id number]] Influenza, seasonal, injectable, preservative free Adacel (Tetanus, reduced Diphtheria, and acellular Pertussis Immunization) Adacel [[id number]] tetanus toxoid, reduced diphtheria toxoid, and acellular [...] Range Description blood pressure, diastolic - 8462-4 81 mm[Hg] BP [place] blood pressure, systolic - 8480-6 120 mm[Hg] BP sys pulse rate E&M - 8867-4 71 /min Heart rate temperature E&M 98.5 [degF] Body temperature weight E&M - 3141-9 243 [lb_av] Weight Measured blood pressure, diastolic - 8462-4 78 mm[Hg] BP [place] blood pressure, systolic - 8480-6 120 mm[Hg] BP sys pulse rate E&M - 8867-4 76 /min Heart rate temperature E&M 97.9 [degF] Body temperature weight E&M - 3141-9 239 [lb_av] Weight Measured blood pressure, diastolic - 8462-4 86 mm[Hg] BP [place] blood pressure, systolic - 8480-6 134 mm[Hg] BP sys pulse rate E&M - 8867-4 75 /min Heart rate temperature E&M 97.9 [degF] Body temperature weight E&M - 3141-9 241.8 [lb_av] Weight Measured Diagnostic Results Date Name Value Unit Range Description Lab Report: RapidStrep Rflx/Cx - Lab Microbial identification kit, rapid strep method Negative Negative Encounters Code Encounter Date Provider Facility [facility]-[id number] Level 3 Est. Patient 16:14:45 CDT Hector Love MD [facility] CPT-16186 Level 3 Est. Patient 16:53:35 CDT Иван Mooney MD [facility]-78154 Level 3 Est. Patient 15:57:13 CDT Martha Montejo INFORMATICS DEVELOPER [facility] CPT-61936 Level 3 Est. Patient 14:30:47 ASSISTANT PRODUCER Hector Love MD [facility]-44115 Level 3 Est. Patient 14:50:45 CDT Hector Love MD [facility] CPT-75513 Level 3 Est. Patient 21:17:30 CDT Jen Crystal MD PhD [facility] CPT-94565 Level 3 Est. Patient 09:32:55 CDT Hector Love MD [facility] CPT-64755 Level 3 Est. Patient 15:11:08 ASSISTANT PRODUCER Иван Mooney MD [facility]-51725 Level 3 Est. Patient 16:38:53 ASSISTANT PRODUCER Hector Love MD [facility]-62523 Level 3 Est. Patient 15:46:05 CDT Hector Love MD [facility] CPT-44493 Level 3 Est. Patient 13:59:39 CDT Hector Love MD [facility]-60943 Level 3 Est. Patient 14:44:46 ASSISTANT PRODUCER Hector Love MD [facility]-33005 Level 3 Est. Patient 17:12:27 CDT Hector Love MD [facility] CPT-88955 Level 3 Est. Patient 15:30:32 CDT Hector Love MD [facility] CPT-23564 Level 3 Est. Patient 14:24:52 CDT Иван Mooney MD [facility] CPT-52549 Level 3 Est. Patient 14:08:38 ASSISTANT PRODUCER Hector Love MD [facility] Procedures Code Procedure Name Date Entry Date Standard Description CPT-88697 Fluzone Quadrivalent Intramuscular Suspension 0.5 ML 16: 12:26 ASSISTANT PRODUCER CPT-40782 Immunization Single Admin 16:12:26 ASSISTANT PRODUCER CPT-J0561 Bicillin LA 1,200,000 u (PCN G Benzathine) 16:40:23 CDT CPT-36431 Abx/Therapy Injection 16:40:22 CDT CPT-J0561 Bicillin LA 1,200,000 u (PCN G Benzathine) 16:15:35 CDT CPT-98008 Immunization Single Admin 16:11:28 ASSISTANT PRODUCER CPT-26092 Fluzone Quadrivalent Intramuscular Suspension 0.5 ML 16: 11:28 ASSISTANT PRODUCER CPT-69787 Administration single or combination vaccine inc oral 13 :57:23 CDT CPT-54935 Menactra Intramuscular Injectable 13:57:23 CDT CPT-72132 First Vx Component - Ix admin via ID IM or jet inj without physician counseling 16:42:17 ASSISTANT PRODUCER CPT-39350 Fluzone preservative free (>=3 yrs.) 16:42:17 ASSISTANT PRODUCER 06/03 CPT-12271 Venipuncture Draw Fee 16:29:01 CDT CPT-22229 Chest 2V Frontal and Lat 16:23:56 CDT CPT-20166 Administration single or combination vaccine inc oral 13 :39:17 ASSISTANT PRODUCER [facility]-84713 Tdap 13:39:17 ASSISTANT PRODUCER
--- OUTSIDE RECORDS SUMMARY | 2017-11-06 01:06 | XMS REPORT | Clinical Summary ---
Author Author Admin, LAMBERT Organization [employer] Address Unknown Phone Unavailable Allergies, Adverse Reactions, [...] every 12 hours for 10 days AMOXICILLIN 56268013966 Active Иван Mooney MD Active VITAMIN C 500 MG CHEW TAB ASCORBIC ACID 92040271134 Active Иван Mooney MD Active PREDNISONE 20 MG TAB 2 po qd x 4 days PREDNISONE 09186116982 No Longer Active Hector Love MD Active HYDROCODONE-ACETAMINOPHEN 5-325 MG TABS 1/2 to 1 po q 4 hours prn pain 11/06 HYDROCODONE-ACETAMINOPHEN 24213098155 No Longer Active Hector Love MD Active FLONASE ALLERGY RELIEF 50 MCG/ACT NASAL SUSP 2 spray each nostril daily prn allergies FLUTICASONE PROPIONATE 95955857789 Active Hector Love MD Active AUGMENTIN 875-125 MG TAB 1 po BID x 10 days AMOXICILLIN-POT CLAVULANATE 30858589430 No Longer Active Hector Love MD Active FLONASE ALLERGY RELIEF 50 MCG/ACT NASAL SUSP 2 sprays each nostril daily PRN allergies FLUTICASONE PROPIONATE 38481731699 No Longer Active Hector Love MD Active AMOXICILLIN 500 MG CAPS 1 cap by mouth three times a day AMOXICILLIN 15164285419 No Longer Active Jillina Frazell RADHA Active KEFLEX 500 MG CAP 1 tab po tid CEPHALEXIN 20161798029 No Longer Active Jillina Frazell PARISH WORKER Active AMOXICILLIN 500 MG TABS 2 tabs twice a day for 10 days AMOXICILLIN 53369864998 No Longer Active Jillina Frazell PARISH WORKER Active ZYRTEC ALLERGY 10 MG CAPS 1 po qd CETIRIZINE HCL 89223858774 Active Hector Love MD Active PROGRAF 1 MG CAPS 2 tabs po bid TACROLIMUS 61315139522 Active Hector Love MD Active ZOFRAN 4 MG TABS 1 po q6hr PRN Nausea ONDANSETRON HCL 69935464940 No Longer Active Ramona Diggs LPN Active AMOXICILLIN 500 MG CAPS 2 po BID x 10 days AMOXICILLIN 18066348275 No Longer Active Martha Montejo APRN Active AUGMENTIN 875-125 MG TAB 1 tab by mouth twice daily with food AMOXICILLIN-POT CLAVULANATE 00844577563 No Longer Active Hector Love MD Active LEVAQUIN 500 MG TABS 1 pill by mouth daily LEVOFLOXACIN 75722485428 No Longer Active Jen Crystal MD PhD Active LISINOPRIL 5 MG TABS 1.5 tab qd LISINOPRIL 38141285760 Active Jen Crystal MD PhD Active KETOCONAZOLE 2 % CREA apply twice a day to rash KETOCONAZOLE 76480330515 No Longer Active Hector Love MD Active AUGMENTIN 875-125 MG TAB 1 tab by mouth twice daily with food AMOXICILLIN-POT CLAVULANATE 87992173770 No Longer Active Иван Mooney MD Active LOTRISONE 0.05-1 % CREAM Apply twice a day to affected area 07/19 CLOTRIMAZOLE-BETAMETHASONE 22681851704 No Longer Active Иван Mooney MD Active FEXOFENADINE HCL 180 MG TABS 1 Daily FEXOFENADINE HCL 44376216121 No Longer Active Hector Love MD Active PROGRAF 0.5 MG CAPS Take one by mouth daily with 1 mg TACROLIMUS 92984113927 No Longer Active Hector Love MD Active AMOXICILLIN 500 MG CAPS 2 po BID x 10 days AMOXICILLIN 68485455679 No Longer Active Hector Love MD Active RAPAMUNE 1 MG TABS 3 tabs in the am SIROLIMUS 25257527115 No Longer Active Hector Love MD Active AMOXICILLIN 500 MG CAPS 2 po BID x 10 days AMOXICILLIN 74606645755 No Longer Active Hector Love MD Active LORTAB 5 5-500 MG TABS 1/2 to 1 tablet by mouth every 4 hours as needed for pain HYDROCODONE-ACETAMINOPHEN 99459069073 No Longer Active Hector Love MD Active FLUTICASONE PROPIONATE 50 MCG/ACT SUSP INSTILL 2 SPRAYS IN EACH NOSTRIL Q D FLUTICASONE PROPIONATE 26375287608 No Longer Active Hector Love MD Active PROGRAF 1 MG CAPS 1 po bid TACROLIMUS 43488808414 No Longer Active Hector Love MD Active AMOXICILLIN 875 MG TABS 1 tab by mouth twice daily AMOXICILLIN 39853695394 No Longer Active Hector Love MD Active AMOXICILLIN 500 MG CAPS 2 po BID x 10 days AMOXICILLIN 26814938662 No Longer Active Hector Love MD Active AUGMENTIN 875-125 MG TAB 1 tab by mouth twice daily with food AMOXICILLIN-POT CLAVULANATE 06123036565 No Longer Active Hector Love MD Active AZITHROMYCIN 250 MG TABS 2 po qd x 1 day, then 1 po qd x 4 days AZITHROMYCIN 28084810794 No Longer Active Hector Love MD Active CETIRIZINE HCL 10 MG TABS 1 PO Q D CETIRIZINE HCL 65927445525 No Longer Active [place] Active PROGRAF 1 MG CAPS 1 po bid PROGRAF 1 MG CAPS 511924 TACROLIMUS Inactive FLUTICASONE PROPIONATE 50 MCG/ACT SUSP INSTILL 2 SPRAYS IN EACH NOSTRIL Q D FLUTICASONE PROPIONATE 50 MCG/ACT SUSP 6839414 FLUTICASONE PROPIONATE Inactive LORTAB 5 5-500 MG TABS 1/2 to 1 tablet by mouth every 4 hours as needed for pain LORTAB 5 5-500 MG TABS HYDROCODONE- ACETAMINOPHEN Inactive RAPAMUNE 1 MG TABS 3 tabs in the am RAPAMUNE 1 MG TABS 393360 SIROLIMUS Inactive PROGRAF 0.5 MG CAPS Take one by mouth daily with 1 mg PROGRAF 0.5 MG CAPS 644961 TACROLIMUS Inactive FEXOFENADINE HCL 180 MG TABS 1 Daily FEXOFENADINE HCL 180 MG TABS 655960 FEXOFENADINE HCL Inactive LOTRISONE 0.05-1 % CREAM Apply twice a day to affected area 07/19 LOTRISONE 0.05-1 % CREAM 642898 CLOTRIMAZOLE-BETAMETHASONE Inactive KETOCONAZOLE 2 % CREA apply twice a day to rash KETOCONAZOLE 2 % CREA 403916 KETOCONAZOLE Inactive AUGMENTIN 875-125 MG TAB 1 tab by mouth twice daily with food AUGMENTIN 875-125 MG TAB 125759 AMOXICILLIN-POT CLAVULANATE Inactive ZOFRAN 4 MG TABS 1 po q6hr PRN Nausea ZOFRAN 4 MG TABS 597577 ONDANSETRON HCL Inactive AMOXICILLIN 500 MG TABS 2 tabs twice a day for 10 days AMOXICILLIN 500 MG TABS 743205 AMOXICILLIN Inactive FLONASE ALLERGY RELIEF 50 MCG/ACT NASAL SUSP 2 sprays each nostril daily PRN allergies FLONASE ALLERGY RELIEF 50 MCG/ACT NASAL SUSP 4000034 FLUTICASONE PROPIONATE Inactive HYDROCODONE-ACETAMINOPHEN 5-325 MG TABS 1/2 to 1 po q 4 hours prn pain 11/06 HYDROCODONE-ACETAMINOPHEN 5-325 MG TABS 596641 HYDROCODONE- ACETAMINOPHEN Inactive AMOXICILLIN 500 MG CAPS 2 po BID x 10 days AMOXICILLIN 500 MG CAPS 113241 AMOXICILLIN Inactive AMOXICILLIN 875 MG TABS 1 tab by mouth twice daily AMOXICILLIN 875 MG TABS 065986 AMOXICILLIN Inactive AMOXICILLIN 500 MG CAPS 2 po BID x 10 days AMOXICILLIN 500 MG CAPS 928694 AMOXICILLIN Inactive AMOXICILLIN 500 MG CAPS 2 po BID x 10 days AMOXICILLIN 500 MG CAPS 430172 AMOXICILLIN Inactive AUGMENTIN 875-125 MG TAB 1 tab by mouth twice daily with food AUGMENTIN 875-125 MG TAB 857856 AMOXICILLIN-POT CLAVULANATE Inactive LEVAQUIN 500 MG TABS 1 pill by mouth daily LEVAQUIN 500 MG TABS 602344 LEVOFLOXACIN Inactive AMOXICILLIN 500 MG CAPS 2 po BID x 10 days AMOXICILLIN 500 MG CAPS 222588 AMOXICILLIN Inactive AMOXICILLIN 500 MG CAPS 1 cap by mouth three times a day AMOXICILLIN 500 MG CAPS 376191 AMOXICILLIN Inactive AUGMENTIN 875-125 MG TAB 1 po BID x 10 days AUGMENTIN 875-125 MG TAB 539081 AMOXICILLIN-POT CLAVULANATE Inactive PREDNISONE 20 MG TAB 2 po qd x 4 days PREDNISONE 20 MG TAB 916541 PREDNISONE Inactive Advance Directives Directive Description Start Date PERMISSION TO SHARE Immunizations Vaccine Administration Date Value Standard Description Seasonal influenza vaccine, injectable, preservative free, for > 3 years old ( Afluria, FluLaval, Fluzone, Fluvirin, Fluarix, Agriflu(>=18 yo)) Fluzone preservative free (>=3 yrs.) [[id number]] Influenza, seasonal, injectable, preservative free Adacel (Tetanus, reduced Diphtheria, and acellular Pertussis Immunization) Adacel [[id number]] tetanus toxoid, reduced diphtheria toxoid, and acellular [...] Range Description blood pressure, diastolic - 8462-4 93 mm[Hg] BP [place] blood pressure, systolic - 8480-6 147 mm[Hg] BP sys pulse rate E&M - 8867-4 104 /min Heart rate temperature E&M 98.5 [degF] Body temperature weight E&M - 3141-9 238 [lb_av] Weight Measured blood pressure, diastolic - 8462-4 75 mm[Hg] [...] 0.76-1.46 Encounters Code Encounter Date Provider Facility CPT-34102 Level 3 Est. Patient 16:31:04 CDT Иван Mooney MD [facility] CPT-92961 Level 4 Est. Patient 12:02:18 CDT Hector Love MD [facility] CPT-57018 Level 3 Est. Patient 16:14:45 CDT Hector Love MD [facility] CPT-20769 Level 3 Est. Patient 16:53:35 CDT Иван Mooney MD [facility] CPT-25842 Level 3 Est. Patient 15:57:13 CDT Martha Escalantestephen GARCIA [facility] CPT-39181 Level 3 Est. Patient 14:30:47 OSTEOPATHIC NEUROLOGIST Hector Love MD [facility] CPT-71449 Level 3 Est. Patient 14:50:45 CDT Hector Love MD [facility] CPT-81838 Level 3 Est. Patient 21:17:30 CDT Jen Crystal MD PhD [facility] CPT-56488 Level 3 Est. Patient 09:32:55 CDT Hector Love MD [facility] CPT-52708 Level 3 Est. Patient 15:11:08 OSTEOPATHIC NEUROLOGIST Иван Mooney MD [facility] CPT-81246 Level 3 Est. Patient 16:38:53 OSTEOPATHIC NEUROLOGIST Hector Love MD [facility] CPT-76101 Level 3 Est. Patient 15:46:05 CDT Hector Love MD [facility] CPT-71017 Level 3 Est. Patient 13:59:39 CDT Hector Love MD [facility] CPT-24821 Level 3 Est. Patient 14:44:46 OSTEOPATHIC NEUROLOGIST Hector Love MD [facility] CPT-13603 Level 3 Est. Patient 17:12:27 CDT Hector Love MD [facility] CPT-06899 Level 3 Est. Patient 15:30:32 CDT Hector Love MD [facility] CPT-45981 Level 3 Est. Patient 14:24:52 CDT Иван Mooney MD [facility] CPT-78641 Level 3 Est. Patient 14:08:38 OSTEOPATHIC NEUROLOGIST Hector Love MD [facility] Procedures Code Procedure Name Date Entry Date Standard Description CPT-000 Give Appropriate Flu Vaccine 16:22:23 OSTEOPATHIC NEUROLOGIST CPT-27506 Free T4 - LAB USE ONLY 11:38:58 CDT CPT-52293 TSH - LAB USE ONLY 11:38:58 CDT CPT-27739 Venipuncture Draw Fee 11:38:58 CDT CPT-50970 Fluzone Quadrivalent Intramuscular Suspension 0.5 ML 16: 12:26 OSTEOPATHIC NEUROLOGIST CPT-54185 Immunization Single Admin 16:12:26 OSTEOPATHIC NEUROLOGIST CPT-J0561 Bicillin LA 1,200,000 u (PCN G Benzathine) 16:40:23 CDT CPT-68430 Abx/Therapy Injection 16:40:22 CDT CPT-J0561 Bicillin LA 1,200,000 u (PCN G Benzathine) 16:15:35 CDT CPT-92856 Immunization Single Admin 16:11:28 OSTEOPATHIC NEUROLOGIST CPT-04830 Fluzone Quadrivalent Intramuscular Suspension 0.5 ML 16: 11:28 OSTEOPATHIC NEUROLOGIST CPT-14203 Administration single or combination vaccine inc oral 13 :57:23 CDT CPT-68250 Menactra Intramuscular Injectable 13:57:23 CDT CPT-47562 First Vx Component - Ix admin via ID IM or jet inj without physician counseling 16:42:17 OSTEOPATHIC NEUROLOGIST CPT-95324 Fluzone preservative free (>=3 yrs.) 16:42:17 OSTEOPATHIC NEUROLOGIST 06/03 CPT-29422 Venipuncture Draw Fee 16:29:01 CDT CPT-92149 Chest 2V Frontal and Lat 16:23:56 CDT CPT-54578 Administration single or combination vaccine inc oral 13 :39:17 OSTEOPATHIC NEUROLOGIST CPT-66826 Tdap 13:39:17 OSTEOPATHIC NEUROLOGIST
--- OUTSIDE RECORDS SUMMARY | 2017-11-06 01:07 | XMS REPORT | Clinical Summary ---
Author Author Admin, LAMBERT Organization [employer] Address Unknown Phone Unavailable Allergies, Adverse Reactions, [...] Gastroenteritis, viral, acute 008.8 Resolved Martha Montejo FURNITURE MOVER Intestinal infection due to other organism, not [...] employment physical examination V70.0 Active Manish Castrejon FURNITURE MOVER Routine general medical examination at a health care facility Exposure to mononucleosis V01.79 Active Manish Castrejon FURNITURE MOVER Contact with or exposure to other viral [...] every 12 hours for 10 days AMOXICILLIN 24075426198 No Longer Active Иван Mooney MD Active VITAMIN C 500 MG CHEW TAB ASCORBIC ACID 63341957037 Active Иван Mooney MD Active PREDNISONE 20 MG TAB 2 po qd x 4 days PREDNISONE 76845433863 No Longer Active Hector Love MD Active HYDROCODONE-ACETAMINOPHEN 5-325 MG TABS 1/2 to 1 po q 4 hours prn pain 11/06 HYDROCODONE-ACETAMINOPHEN 70113487637 No Longer Active Hector Love MD Active FLONASE ALLERGY RELIEF 50 MCG/ACT NASAL SUSP 2 spray each nostril daily prn allergies FLUTICASONE PROPIONATE 31927210951 Active Hector Love MD Active AUGMENTIN 875-125 MG TAB 1 po BID x 10 days AMOXICILLIN-POT CLAVULANATE 47278449041 No Longer Active Hector Love MD Active FLONASE ALLERGY RELIEF 50 MCG/ACT NASAL SUSP 2 sprays each nostril daily PRN allergies FLUTICASONE PROPIONATE 20383706844 No Longer Active Hector Love MD Active AMOXICILLIN 500 MG CAPS 1 cap by mouth three times a day AMOXICILLIN 03595512524 No Longer Active Jillina Frazell FURNITURE MOVER Active KEFLEX 500 MG CAP 1 tab po tid CEPHALEXIN 47531718444 No Longer Active Jillina Frazell FURNITURE MOVER Active AMOXICILLIN 500 MG TABS 2 tabs twice a day for 10 days AMOXICILLIN 38261450783 No Longer Active Jillina Frazell FURNITURE MOVER Active ZYRTEC ALLERGY 10 MG CAPS 1 po qd CETIRIZINE HCL 00011181405 Active Hector Love MD Active PROGRAF 1 MG CAPS 2 tabs po bid TACROLIMUS 24060257504 Active Hector Love MD Active ZOFRAN 4 MG TABS 1 po q6hr PRN Nausea ONDANSETRON HCL 11842972256 No Longer Active Ramona Diggs LPN Active AMOXICILLIN 500 MG CAPS 2 po BID x 10 days AMOXICILLIN 16376448492 No Longer Active Martha Montejo RADHA Active AUGMENTIN 875-125 MG TAB 1 tab by mouth twice daily with food AMOXICILLIN-POT CLAVULANATE 72730343018 No Longer Active Hector Love MD Active LEVAQUIN 500 MG TABS 1 pill by mouth daily LEVOFLOXACIN 00422691707 No Longer Active Jen Crystal MD PhD Active LISINOPRIL 5 MG TABS 1.5 tab qd LISINOPRIL 04878490668 Active Jen Crystal MD PhD Active KETOCONAZOLE 2 % CREA apply twice a day to rash KETOCONAZOLE 97309823848 No Longer Active Hector Love MD Active AUGMENTIN 875-125 MG TAB 1 tab by mouth twice daily with food AMOXICILLIN-POT CLAVULANATE 76295611666 No Longer Active Иван Mooney MD Active LOTRISONE 0.05-1 % CREAM Apply twice a day to affected area 07/19 CLOTRIMAZOLE-BETAMETHASONE 37455112386 No Longer Active Иван Mooney MD Active FEXOFENADINE HCL 180 MG TABS 1 Daily FEXOFENADINE HCL 51793361265 No Longer Active Hector Love MD Active PROGRAF 0.5 MG CAPS Take one by mouth daily with 1 mg TACROLIMUS 53059431369 No Longer Active Hector Love MD Active AMOXICILLIN 500 MG CAPS 2 po BID x 10 days AMOXICILLIN 53584806554 No Longer Active Hector Love MD Active RAPAMUNE 1 MG TABS 3 tabs in the am SIROLIMUS 92715542060 No Longer Active Hector Love MD Active AMOXICILLIN 500 MG CAPS 2 po BID x 10 days AMOXICILLIN 65696714579 No Longer Active Hector Love MD Active LORTAB 5 5-500 MG TABS 1/2 to 1 tablet by mouth every 4 hours as needed for pain HYDROCODONE-ACETAMINOPHEN 11103404853 No Longer Active Hector Love MD Active FLUTICASONE PROPIONATE 50 MCG/ACT SUSP INSTILL 2 SPRAYS IN EACH NOSTRIL Q D FLUTICASONE PROPIONATE 09977481561 No Longer Active Hector Love MD Active PROGRAF 1 MG CAPS 1 po bid TACROLIMUS 13159920416 No Longer Active Hector Love MD Active AMOXICILLIN 875 MG TABS 1 tab by mouth twice daily AMOXICILLIN 05240216285 No Longer Active Hector Love MD Active AMOXICILLIN 500 MG CAPS 2 po BID x 10 days AMOXICILLIN 57409048620 No Longer Active Hector Love MD Active AUGMENTIN 875-125 MG TAB 1 tab by mouth twice daily with food AMOXICILLIN-POT CLAVULANATE 95996290744 No Longer Active Hector Love MD Active AZITHROMYCIN 250 MG TABS 2 po qd x 1 day, then 1 po qd x 4 days AZITHROMYCIN 97189016738 No Longer Active Hector Love MD Active CETIRIZINE HCL 10 MG TABS 1 PO Q D CETIRIZINE HCL 84114723049 No Longer Active [place] Active PROGRAF 1 MG CAPS 1 po bid PROGRAF 1 MG CAPS 280590 TACROLIMUS Inactive FLUTICASONE PROPIONATE 50 MCG/ACT SUSP INSTILL 2 SPRAYS IN EACH NOSTRIL Q D FLUTICASONE PROPIONATE 50 MCG/ACT SUSP 0278123 FLUTICASONE PROPIONATE Inactive LORTAB 5 5-500 MG TABS 1/2 to 1 tablet by mouth every 4 hours as needed for pain LORTAB 5 5-500 MG TABS HYDROCODONE- ACETAMINOPHEN Inactive RAPAMUNE 1 MG TABS 3 tabs in the am RAPAMUNE 1 MG TABS 655904 SIROLIMUS Inactive PROGRAF 0.5 MG CAPS Take one by mouth daily with 1 mg PROGRAF 0.5 MG CAPS 155499 TACROLIMUS Inactive FEXOFENADINE HCL 180 MG TABS 1 Daily FEXOFENADINE HCL 180 MG TABS 080979 FEXOFENADINE HCL Inactive LOTRISONE 0.05-1 % CREAM Apply twice a day to affected area 07/19 LOTRISONE 0.05-1 % CREAM 112183 CLOTRIMAZOLE-BETAMETHASONE Inactive KETOCONAZOLE 2 % CREA apply twice a day to rash KETOCONAZOLE 2 % CREA 919039 KETOCONAZOLE Inactive AUGMENTIN 875-125 MG TAB 1 tab by mouth twice daily with food AUGMENTIN 875-125 MG TAB 097266 AMOXICILLIN-POT CLAVULANATE Inactive ZOFRAN 4 MG TABS 1 po q6hr PRN Nausea ZOFRAN 4 MG TABS 853303 ONDANSETRON HCL Inactive AMOXICILLIN 500 MG TABS 2 tabs twice a day for 10 days AMOXICILLIN 500 MG TABS 587714 AMOXICILLIN Inactive FLONASE ALLERGY RELIEF 50 MCG/ACT NASAL SUSP 2 sprays each nostril daily PRN allergies FLONASE ALLERGY RELIEF 50 MCG/ACT NASAL SUSP 3435494 FLUTICASONE PROPIONATE Inactive HYDROCODONE-ACETAMINOPHEN 5-325 MG TABS 1/2 to 1 po q 4 hours prn pain 11/06 HYDROCODONE-ACETAMINOPHEN 5-325 MG TABS 100358 HYDROCODONE- ACETAMINOPHEN Inactive AMOXICILLIN 500 MG CAPS 2 po BID x 10 days AMOXICILLIN 500 MG CAPS 803846 AMOXICILLIN Inactive AMOXICILLIN 875 MG TABS 1 tab by mouth twice daily AMOXICILLIN 875 MG TABS 671630 AMOXICILLIN Inactive AMOXICILLIN 500 MG CAPS 2 po BID x 10 days AMOXICILLIN 500 MG CAPS 379009 AMOXICILLIN Inactive AMOXICILLIN 500 MG CAPS 2 po BID x 10 days AMOXICILLIN 500 MG CAPS 741440 AMOXICILLIN Inactive AUGMENTIN 875-125 MG TAB 1 tab by mouth twice daily with food AUGMENTIN 875-125 MG TAB 367095 AMOXICILLIN-POT CLAVULANATE Inactive LEVAQUIN 500 MG TABS 1 pill by mouth daily LEVAQUIN 500 MG TABS 168621 LEVOFLOXACIN Inactive AMOXICILLIN 500 MG CAPS 2 po BID x 10 days AMOXICILLIN 500 MG CAPS 418495 AMOXICILLIN Inactive AMOXICILLIN 500 MG CAPS 1 cap by mouth three times a day AMOXICILLIN 500 MG CAPS 359415 AMOXICILLIN Inactive AUGMENTIN 875-125 MG TAB 1 po BID x 10 days AUGMENTIN 875-125 MG TAB 374415 AMOXICILLIN-POT CLAVULANATE Inactive PREDNISONE 20 MG TAB 2 po qd x 4 days PREDNISONE 20 MG TAB 214703 PREDNISONE Inactive AMOXICILLIN 500 MG TABS Take two tablets by mouth every 12 hours for 10 days AMOXICILLIN 500 MG TABS 506807 AMOXICILLIN Inactive Advance Directives Directive Description Start Date PERMISSION TO SHARE Immunizations Vaccine Administration Date Value Standard Description Seasonal influenza vaccine, injectable, preservative free, for > 3 years old ( Afluria, FluLaval, Fluzone, Fluvirin, Fluarix, Agriflu(>=18 yo)) Fluzone preservative free (>=3 yrs.) [[id number]] Influenza, seasonal, injectable, preservative free Adacel (Tetanus, reduced Diphtheria, and acellular Pertussis Immunization) Adacel [[id number]] tetanus toxoid, reduced diphtheria toxoid, and acellular [...] Panel - Chemistry sodium, serum 137 mmol/L 309-865 8046/08/14 carbon dioxide, venous blood 29.7 mmol/L 21.0-32.0 potassium, serum 4.3 mmol/L 3.5-5.2 chloride, serum 99 mmol/L 98-107 blood glucose 123 mg/dL 65-110 urea nitrogen, blood 12 mg/dL 7-18 creatinine, serum 0.84 mg/dL 0.60-1.30 alanine aminotransferase (SGPT), serum 48 U/L 12-78 aspartate aminotransferase (SGOT), serum 26 U/L 15-37 calcium, serum 9.4 mg/dL 8.5-10.1 bilirubin, serum, total 1.60 mg/dL 0.00-1.00 cholesterol, serum 141 mg/dL 978-773 3143/08/14 triglyceride, serum, fasting 54 mg/dL 30-200 HDL [...] 5.0-8.5 Encounters Code Encounter Date Provider Facility CPT-25383 Level 3 Est. Patient 16:06:03 CDT Manish Castrejon [facility] CPT-21473 Level 3 Est. Patient 09:57:24 CDT Manish Castrejon [facility] CPT-86989 Level 3 Est. Patient 16:31:04 CDT Иван Mooney MD [facility] CPT-74656 Level 4 Est. Patient 12:02:18 CDT Hector Love MD [facility] CPT-52986 Level 3 Est. Patient 16:14:45 CDT Hectro Love MD [facility] CPT-28550 Level 3 Est. Patient 16:53:35 CDT Иван Mooney MD [facility] CPT-32381 Level 3 Est. Patient 15:57:13 CDT Martha Montejo [facility] CPT-22962 Level 3 Est. Patient 14:30:47 INVESTMENT BANKING MANAGER Hector Love MD [facility] CPT-83136 Level 3 Est. Patient 14:50:45 CDT Hector Love MD [facility] CPT-28322 Level 3 Est. Patient 21:17:30 CDT Jen Crystal MD, PhD [facility] CPT-15076 Level 3 Est. Patient 09:32:55 CDT Hector Love MD [facility] CPT-56880 Level 3 Est. Patient 15:11:08 INVESTMENT BANKING MANAGER Иван Mooney MD [facility] CPT-32634 Level 3 Est. Patient 16:38:53 INVESTMENT BANKING MANAGER Hector Love MD [facility] CPT-06828 Level 3 Est. Patient 15:46:05 CDT Hector Love MD [facility] CPT-14179 Level 3 Est. Patient 13:59:39 CDT Hector Love MD [facility] CPT-42181 Level 3 Est. Patient 14:44:46 INVESTMENT BANKING MANAGER Hector Love MD [facility] CPT-49520 Level 3 Est. Patient 17:12:27 CDT Hector Love MD [facility] CPT-87397 Level 3 Est. Patient 15:30:32 CDT Hector Love MD [facility] CPT-75904 Level 3 Est. Patient 14:24:52 CDT Иван Mooney MD [facility] CPT-20715 Level 3 Est. Patient 14:08:38 INVESTMENT BANKING MANAGER Hector Love MD [facility] Procedures Code Procedure Name Date Entry Date Standard Description CPT-17411 Venipuncture Draw Fee 16:18:26 CDT CPT-31806 TB Skin Test 09:57:25 CDT CPT-000 Give Appropriate Flu Vaccine 16:22:23 INVESTMENT BANKING MANAGER CPT-24771 Free T4 - LAB USE ONLY 11:38:58 CDT CPT-08322 TSH - LAB USE ONLY 11:38:58 CDT CPT-59539 Venipuncture Draw Fee 11:38:58 CDT CPT-16683 Fluzone Quadrivalent Intramuscular Suspension 0.5 ML 16: 12:26 INVESTMENT BANKING MANAGER CPT-17658 Immunization Single Admin 16:12:26 INVESTMENT BANKING MANAGER CPT-J0561 Bicillin LA 1,200,000 u (PCN G Benzathine) 16:40:23 CDT CPT-60141 Abx/Therapy Injection 16:40:22 CDT CPT-J0561 Bicillin LA 1,200,000 u (PCN G Benzathine) 16:15:35 CDT CPT-94702 Immunization Single Admin 16:11:28 INVESTMENT BANKING MANAGER CPT-65145 Fluzone Quadrivalent Intramuscular Suspension 0.5 ML 16: 11:28 INVESTMENT BANKING MANAGER CPT-27101 Administration single or combination vaccine inc oral 13 :57:23 CDT CPT-52489 Menactra Intramuscular Injectable 13:57:23 CDT CPT-20127 First Vx Component - Ix admin via ID IM or jet inj without physician counseling 16:42:17 INVESTMENT BANKING MANAGER CPT-62044 Fluzone preservative free (>=3 yrs.) 16:42:17 INVESTMENT BANKING MANAGER 06/03 CPT-58945 Venipuncture Draw Fee 16:29:01 CDT CPT-22946 Chest 2V Frontal and Lat 16:23:56 CDT CPT-93925 Administration single or combination vaccine inc oral 13 :39:17 INVESTMENT BANKING MANAGER CPT-37306 Tdap 13:39:17 INVESTMENT BANKING MANAGER
--- OUTSIDE RECORDS SUMMARY | 2017-11-06 01:07 | XMS REPORT | Clinical Summary ---
Author Author Admin, LAMBERT Organization [facility] Address Unknown Phone Unavailable Allergies, Adverse Reactions, Alerts Allergy Name Reaction Description Start Date Severity Status Provider MYCINS * Critical Active Иван Mooney MD BENADRYL Critical Active Hector Lvoe MD TYLENOL Critical Active Hector Love MD [...] Gastroenteritis, viral, acute 008.8 Resolved Martha Montejo SIZE MARKER Intestinal infection due to other organism, not elsewhere classified Bronchitis 490 Resolved Hector Love MD Bronchitis, not specified as acute or chronic Pharyngitis 462 Active Иван Mooney MD Acute pharyngitis Ingrown toenail 703.0 Active Manish Castrejon SIZE MARKER Ingrowing nail Ingrown toenail, right 703.0 Active [...] q 4 hours prn pain 11/06 HYDROCODONE-ACETAMINOPHEN 70183568412 Active Hector Love MD Active AUGMENTIN 875-125 MG TAB 1 po BID x 10 days AMOXICILLIN-POT CLAVULANATE 92721808941 No Longer Active Hector Love MD Active FLONASE ALLERGY RELIEF 50 MCG/ACT NASAL SUSP 2 sprays each nostril daily PRN allergies FLUTICASONE PROPIONATE 67567535801 No Longer Active Hector Love MD Active AMOXICILLIN 500 MG CAPS 1 cap by mouth three times a day AMOXICILLIN 70819297580 No Longer Active Jillina Lucía NOWAKN Active KEFLEX 500 MG CAP 1 tab po tid CEPHALEXIN 57071324084 No Longer Active Jillina Frazell SIZE MARKER Active AMOXICILLIN 500 MG TABS 2 tabs twice a day for 10 days AMOXICILLIN 03186051782 No Longer Active Manish Castrejon APRN Active ZYRTEC ALLERGY 10 MG CAPS 1 po qd CETIRIZINE HCL 71529540251 Active Hector Love MD Active PROGRAF 1 MG CAPS 2 tabs po bid TACROLIMUS 00634690106 Active Hector Love MD Active ZOFRAN 4 MG TABS 1 po q6hr PRN Nausea ONDANSETRON HCL 21491781125 No Longer Active Ramona Diggs LPN Active AMOXICILLIN 500 MG CAPS 2 po BID x 10 days AMOXICILLIN 82067561204 No Longer Active Martha Montejo APRN Active AUGMENTIN 875-125 MG TAB 1 tab by mouth twice daily with food AMOXICILLIN-POT CLAVULANATE 99232490394 No Longer Active Hector Love MD Active LEVAQUIN 500 MG TABS 1 pill by mouth daily LEVOFLOXACIN 97725487711 No Longer Active Jen Crystal MD PhD Active LISINOPRIL 5 MG TABS 1.5 tab qd LISINOPRIL 03390781829 Active Jen Crystal MD PhD Active KETOCONAZOLE 2 % CREA apply twice a day to rash KETOCONAZOLE 03197259086 No Longer Active Hector Love MD Active AUGMENTIN 875-125 MG TAB 1 tab by mouth twice daily with food AMOXICILLIN-POT CLAVULANATE 95384747339 No Longer Active Иван Mooney MD Active LOTRISONE 0.05-1 % CREAM Apply twice a day to affected area 07/19 CLOTRIMAZOLE-BETAMETHASONE 81607715710 No Longer Active Иван Mooney MD Active FEXOFENADINE HCL 180 MG TABS 1 Daily FEXOFENADINE HCL 87041523620 No Longer Active Hector Love MD Active PROGRAF 0.5 MG CAPS Take one by mouth daily with 1 mg TACROLIMUS 63405728388 No Longer Active Hector Love MD Active AMOXICILLIN 500 MG CAPS 2 po BID x 10 days AMOXICILLIN 74202635013 No Longer Active Hector Love MD Active RAPAMUNE 1 MG TABS 3 tabs in the am SIROLIMUS 02226485476 No Longer Active Hector Love MD Active AMOXICILLIN 500 MG CAPS 2 po BID x 10 days AMOXICILLIN 03717055362 No Longer Active Hector Love MD Active LORTAB 5 5-500 MG TABS 1/2 to 1 tablet by mouth every 4 hours as needed for pain HYDROCODONE-ACETAMINOPHEN 68432037643 No Longer Active Hector Love MD Active FLUTICASONE PROPIONATE 50 MCG/ACT SUSP INSTILL 2 SPRAYS IN EACH NOSTRIL Q D FLUTICASONE PROPIONATE 89680887735 No Longer Active Hector Love MD Active PROGRAF 1 MG CAPS 1 po bid TACROLIMUS 33400485213 No Longer Active Hector Love MD Active AMOXICILLIN 875 MG TABS 1 tab by mouth twice daily AMOXICILLIN 15713558035 No Longer Active Hector Love MD Active AMOXICILLIN 500 MG CAPS 2 po BID x 10 days AMOXICILLIN 43161446008 No Longer Active Hector Love MD Active AUGMENTIN 875-125 MG TAB 1 tab by mouth twice daily with food AMOXICILLIN-POT CLAVULANATE 32958039344 No Longer Active Hector Love MD Active AZITHROMYCIN 250 MG TABS 2 po qd x 1 day, then 1 po qd x 4 days AZITHROMYCIN 32683779420 No Longer Active Hector Love MD Active CETIRIZINE HCL 10 MG TABS 1 PO Q D CETIRIZINE HCL 87000259516 No Longer Active [place] Active PROGRAF 1 MG CAPS 1 po bid PROGRAF 1 MG CAPS 709357 TACROLIMUS Inactive FLUTICASONE PROPIONATE 50 MCG/ACT SUSP INSTILL 2 SPRAYS IN EACH NOSTRIL Q D FLUTICASONE PROPIONATE 50 MCG/ACT SUSP 358960 FLUTICASONE PROPIONATE Inactive LORTAB 5 5-500 MG TABS 1/2 to 1 tablet by mouth every 4 hours as needed for pain LORTAB 5 5-500 MG TABS HYDROCODONE- ACETAMINOPHEN Inactive RAPAMUNE 1 MG TABS 3 tabs in the am RAPAMUNE 1 MG TABS 634187 SIROLIMUS Inactive PROGRAF 0.5 MG CAPS Take one by mouth daily with 1 mg PROGRAF 0.5 MG CAPS 420031 TACROLIMUS Inactive FEXOFENADINE HCL 180 MG TABS 1 Daily FEXOFENADINE HCL 180 MG TABS 848907 FEXOFENADINE HCL Inactive LOTRISONE 0.05-1 % CREAM Apply twice a day to affected area 07/19 LOTRISONE 0.05-1 % CREAM 592514 CLOTRIMAZOLE-BETAMETHASONE Inactive KETOCONAZOLE 2 % CREA apply twice a day to rash KETOCONAZOLE 2 % CREA 194639 KETOCONAZOLE Inactive AUGMENTIN 875-125 MG TAB 1 tab by mouth twice daily with food AUGMENTIN 875-125 MG TAB 383117 AMOXICILLIN-POT CLAVULANATE Inactive ZOFRAN 4 MG TABS 1 po q6hr PRN Nausea ZOFRAN 4 MG TABS 599595 ONDANSETRON HCL Inactive AMOXICILLIN 500 MG TABS 2 tabs twice a day for 10 days AMOXICILLIN 500 MG TABS 188225 AMOXICILLIN Inactive FLONASE ALLERGY RELIEF 50 MCG/ACT NASAL SUSP 2 sprays each nostril daily PRN allergies FLONASE ALLERGY RELIEF 50 MCG/ACT NASAL SUSP 674772 FLUTICASONE PROPIONATE Inactive AMOXICILLIN 500 MG CAPS 2 po BID x 10 days AMOXICILLIN 500 MG CAPS 848493 AMOXICILLIN Inactive AMOXICILLIN 875 MG TABS 1 tab by mouth twice daily AMOXICILLIN 875 MG TABS 099290 AMOXICILLIN Inactive AMOXICILLIN 500 MG CAPS 2 po BID x 10 days AMOXICILLIN 500 MG CAPS 374862 AMOXICILLIN Inactive AMOXICILLIN 500 MG CAPS 2 po BID x 10 days AMOXICILLIN 500 MG CAPS 948500 AMOXICILLIN Inactive AUGMENTIN 875-125 MG TAB 1 tab by mouth twice daily with food AUGMENTIN 875-125 MG TAB 862676 AMOXICILLIN-POT CLAVULANATE Inactive LEVAQUIN 500 MG TABS 1 pill by mouth daily LEVAQUIN 500 MG TABS 422094 LEVOFLOXACIN Inactive AMOXICILLIN 500 MG CAPS 2 po BID x 10 days AMOXICILLIN 500 MG CAPS 081765 AMOXICILLIN Inactive AMOXICILLIN 500 MG CAPS 1 cap by mouth three times a day AMOXICILLIN 500 MG CAPS 410440 AMOXICILLIN Inactive AUGMENTIN 875-125 MG TAB 1 po BID x 10 days AUGMENTIN 875-125 MG TAB 869993 AMOXICILLIN-POT CLAVULANATE Inactive Advance Directives Directive Description Start Date PERMISSION TO SHARE Immunizations Vaccine Administration Date Value Standard Description Seasonal influenza vaccine, injectable, preservative free, for > 3 years old ( Afluria, FluLaval, Fluzone, Fluvirin, Fluarix, Agriflu(>=18 yo)) Fluzone preservative free (>=3 yrs.) [[id number]] Influenza, seasonal, injectable, preservative free Adacel (Tetanus, reduced Diphtheria, and acellular Pertussis Immunization) Adacel [BUJ142] tetanus toxoid, reduced diphtheria toxoid, and acellular [...] Range Description blood pressure, diastolic - 8462-4 80 mm[Hg] [...] Negative Encounters Code Encounter Date Provider Facility CPT-08368 Level 3 Est. Patient 16:14:45 CDT Hector Love MD [facility] CPT-43074 Level 3 Est. Patient 16:53:35 CDT Иван Mooney MD [facility] CPT-96704 Level 3 Est. Patient 15:57:13 CDT Martha Montejo APRN [facility] CPT-75305 Level 3 Est. Patient 14:30:47 DIAGRAMMER AND SEAMER Hector Love MD [facility] CPT-97181 Level 3 Est. Patient 14:50:45 CDT Hector Love MD [facility] CPT-13098 Level 3 Est. Patient 21:17:30 CDT Jen Crystal MD PhD [facility] CPT-24039 Level 3 Est. Patient 09:32:55 CDT Hector Love MD [facility] CPT-48243 Level 3 Est. Patient 15:11:08 DIAGRAMMER AND SEAMER Иван Mooney MD [facility] CPT-42462 Level 3 Est. Patient 16:38:53 DIAGRAMMER AND SEAMER Hector Love MD [facility] CPT-26311 Level 3 Est. Patient 15:46:05 CDT Hector Love MD [facility] CPT-30985 Level 3 Est. Patient 13:59:39 CDT Hector Love MD [facility] CPT-18490 Level 3 Est. Patient 14:44:46 DIAGRAMMER AND SEAMER Hector Love MD [facility] CPT-68401 Level 3 Est. Patient 17:12:27 CDT Hector Love MD [facility] CPT-13109 Level 3 Est. Patient 15:30:32 CDT Hector Love MD [facility] CPT-27081 Level 3 Est. Patient 14:24:52 CDT Иван Mooney MD [facility] CPT-45716 Level 3 Est. Patient 14:08:38 DIAGRAMMER AND SEAMER Hector Love MD [facility] Procedures Code Procedure Name Date Entry Date Standard Description CPT-62660 Fluzone Quadrivalent Intramuscular Suspension 0.5 ML 16: 12:26 DIAGRAMMER AND SEAMER CPT-45283 Immunization Single Admin 16:12:26 DIAGRAMMER AND SEAMER CPT-J0561 Bicillin LA 1,200,000 u (PCN G Benzathine) 16:40:23 CDT CPT-08901 Abx/Therapy Injection 16:40:22 CDT CPT-J0561 Bicillin LA 1,200,000 u (PCN G Benzathine) 16:15:35 CDT CPT-67718 Immunization Single Admin 16:11:28 DIAGRAMMER AND SEAMER CPT-91002 Fluzone Quadrivalent Intramuscular Suspension 0.5 ML 16: 11:28 DIAGRAMMER AND SEAMER CPT-28745 Administration single or combination vaccine inc oral 13 :57:23 CDT CPT-92461 Menactra Intramuscular Injectable 13:57:23 CDT CPT-41711 First Vx Component - Ix admin via ID IM or jet inj without physician counseling 16:42:17 DIAGRAMMER AND SEAMER CPT-26905 Fluzone preservative free (>=3 yrs.) 16:42:17 DIAGRAMMER AND SEAMER 06/03 CPT-87423 Venipuncture Draw Fee 16:29:01 CDT CPT-55820 Chest 2V Frontal and Lat 16:23:56 CDT CPT-14644 Administration single or combination vaccine inc oral 13 :39:17 DIAGRAMMER AND SEAMER CPT-64576 Tdap 13:39:17 DIAGRAMMER AND SEAMER
--- OUTSIDE RECORDS SUMMARY | 2017-11-06 01:08 | XMS REPORT | Clinical Summary ---
Author Author Admin, LAMBERT Organization [employer] Address Unknown Phone Unavailable Allergies, Adverse Reactions, [...] Liver replaced by transplant COUGH 786.2 Resolved Hcetor Love MD Cough COUGH 786.2 Resolved Hector [...] Gastroenteritis, viral, acute 008.8 Resolved Martha Montejo CHARGE LOADER Intestinal infection due to other organism, not [...] employment physical examination V70.0 Active Manish Castrejon CHARGE LOADER Routine general medical examination at a health care facility Exposure to mononucleosis V01.79 Active Manish Castrejon CHARGE LOADER Contact with or exposure to other viral [...] every 12 hours for 10 days AMOXICILLIN 67307731928 No Longer Active Иван Mooney MD Active VITAMIN C 500 MG CHEW TAB ASCORBIC ACID 45485643167 Active Иван Mooney MD Active PREDNISONE 20 MG TAB 2 po qd x 4 days PREDNISONE 50599897495 No Longer Active Hector Love MD Active HYDROCODONE-ACETAMINOPHEN 5-325 MG TABS 1/2 to 1 po q 4 hours prn pain 11/06 HYDROCODONE-ACETAMINOPHEN 45102758228 No Longer Active Hector Love MD Active FLONASE ALLERGY RELIEF 50 MCG/ACT NASAL SUSP 2 spray each nostril daily prn allergies FLUTICASONE PROPIONATE 97209110140 Active Hector Love MD Active AUGMENTIN 875-125 MG TAB 1 po BID x 10 days AMOXICILLIN-POT CLAVULANATE 68833634345 No Longer Active Hector Love MD Active FLONASE ALLERGY RELIEF 50 MCG/ACT NASAL SUSP 2 sprays each nostril daily PRN allergies FLUTICASONE PROPIONATE 14334707893 No Longer Active Hector Love MD Active AMOXICILLIN 500 MG CAPS 1 cap by mouth three times a day AMOXICILLIN 46465005083 No Longer Active Jillina Frazell CHARGE LOADER Active KEFLEX 500 MG CAP 1 tab po tid CEPHALEXIN 08395894483 No Longer Active Jillina Frazell CHARGE LOADER Active AMOXICILLIN 500 MG TABS 2 tabs twice a day for 10 days AMOXICILLIN 16175931563 No Longer Active Jillina Frazell CHARGE LOADER Active ZYRTEC ALLERGY 10 MG CAPS 1 po qd CETIRIZINE HCL 08399718805 Active Hector Love MD Active PROGRAF 1 MG CAPS 2 tabs po bid TACROLIMUS 93924034663 Active Hector Love MD Active ZOFRAN 4 MG TABS 1 po q6hr PRN Nausea ONDANSETRON HCL 99869422599 No Longer Active Ramona Diggs LPN Active AMOXICILLIN 500 MG CAPS 2 po BID x 10 days AMOXICILLIN 08318423828 No Longer Active Martha Montejo RADHA Active AUGMENTIN 875-125 MG TAB 1 tab by mouth twice daily with food AMOXICILLIN-POT CLAVULANATE 67581671557 No Longer Active Hecotr Love MD Active LEVAQUIN 500 MG TABS 1 pill by mouth daily LEVOFLOXACIN 37957585380 No Longer Active Jen Crystal MD PhD Active LISINOPRIL 5 MG TABS 1.5 tab qd LISINOPRIL 59512567657 Active Jen Crystal MD PhD Active KETOCONAZOLE 2 % CREA apply twice a day to rash KETOCONAZOLE 68257721686 No Longer Active Hector Love MD Active AUGMENTIN 875-125 MG TAB 1 tab by mouth twice daily with food AMOXICILLIN-POT CLAVULANATE 88953478753 No Longer Active Иван Mooney MD Active LOTRISONE 0.05-1 % CREAM Apply twice a day to affected area 07/19 CLOTRIMAZOLE-BETAMETHASONE 71290486081 No Longer Active Иван Mooney MD Active FEXOFENADINE HCL 180 MG TABS 1 Daily FEXOFENADINE HCL 81478440767 No Longer Active Hector Love MD Active PROGRAF 0.5 MG CAPS Take one by mouth daily with 1 mg TACROLIMUS 39049873038 No Longer Active Hector Love MD Active AMOXICILLIN 500 MG CAPS 2 po BID x 10 days AMOXICILLIN 14773465379 No Longer Active Hector Love MD Active RAPAMUNE 1 MG TABS 3 tabs in the am SIROLIMUS 38847911292 No Longer Active Hector Lvoe MD Active AMOXICILLIN 500 MG CAPS 2 po BID x 10 days AMOXICILLIN 86644901539 No Longer Active Hector Love MD Active LORTAB 5 5-500 MG TABS 1/2 to 1 tablet by mouth every 4 hours as needed for pain HYDROCODONE-ACETAMINOPHEN 37786906655 No Longer Active Hector Love MD Active FLUTICASONE PROPIONATE 50 MCG/ACT SUSP INSTILL 2 SPRAYS IN EACH NOSTRIL Q D FLUTICASONE PROPIONATE 45402953966 No Longer Active Hector Love MD Active PROGRAF 1 MG CAPS 1 po bid TACROLIMUS 70288690139 No Longer Active Hector Love MD Active AMOXICILLIN 875 MG TABS 1 tab by mouth twice daily AMOXICILLIN 38148656701 No Longer Active Hector Love MD Active AMOXICILLIN 500 MG CAPS 2 po BID x 10 days AMOXICILLIN 58056956975 No Longer Active Hector Love MD Active AUGMENTIN 875-125 MG TAB 1 tab by mouth twice daily with food AMOXICILLIN-POT CLAVULANATE 26945119678 No Longer Active Hector Love MD Active AZITHROMYCIN 250 MG TABS 2 po qd x 1 day, then 1 po qd x 4 days AZITHROMYCIN 20652725170 No Longer Active Hector Love MD Active CETIRIZINE HCL 10 MG TABS 1 PO Q D CETIRIZINE HCL 88483476503 No Longer Active [place] Active PROGRAF 1 MG CAPS 1 po bid PROGRAF 1 MG CAPS 987141 TACROLIMUS Inactive FLUTICASONE PROPIONATE 50 MCG/ACT SUSP INSTILL 2 SPRAYS IN EACH NOSTRIL Q D FLUTICASONE PROPIONATE 50 MCG/ACT SUSP 3509731 FLUTICASONE PROPIONATE Inactive LORTAB 5 5-500 MG TABS 1/2 to 1 tablet by mouth every 4 hours as needed for pain LORTAB 5 5-500 MG TABS HYDROCODONE- ACETAMINOPHEN Inactive RAPAMUNE 1 MG TABS 3 tabs in the am RAPAMUNE 1 MG TABS 959929 SIROLIMUS Inactive PROGRAF 0.5 MG CAPS Take one by mouth daily with 1 mg PROGRAF 0.5 MG CAPS 798271 TACROLIMUS Inactive FEXOFENADINE HCL 180 MG TABS 1 Daily FEXOFENADINE HCL 180 MG TABS 983638 FEXOFENADINE HCL Inactive LOTRISONE 0.05-1 % CREAM Apply twice a day to affected area 07/19 LOTRISONE 0.05-1 % CREAM 594035 CLOTRIMAZOLE-BETAMETHASONE Inactive KETOCONAZOLE 2 % CREA apply twice a day to rash KETOCONAZOLE 2 % CREA 740690 KETOCONAZOLE Inactive AUGMENTIN 875-125 MG TAB 1 tab by mouth twice daily with food AUGMENTIN 875-125 MG TAB 612491 AMOXICILLIN-POT CLAVULANATE Inactive ZOFRAN 4 MG TABS 1 po q6hr PRN Nausea ZOFRAN 4 MG TABS 570133 ONDANSETRON HCL Inactive AMOXICILLIN 500 MG TABS 2 tabs twice a day for 10 days AMOXICILLIN 500 MG TABS 022087 AMOXICILLIN Inactive FLONASE ALLERGY RELIEF 50 MCG/ACT NASAL SUSP 2 sprays each nostril daily PRN allergies FLONASE ALLERGY RELIEF 50 MCG/ACT NASAL SUSP 9917473 FLUTICASONE PROPIONATE Inactive HYDROCODONE-ACETAMINOPHEN 5-325 MG TABS 1/2 to 1 po q 4 hours prn pain 11/06 HYDROCODONE-ACETAMINOPHEN 5-325 MG TABS 766523 HYDROCODONE- ACETAMINOPHEN Inactive AMOXICILLIN 500 MG CAPS 2 po BID x 10 days AMOXICILLIN 500 MG CAPS 108019 AMOXICILLIN Inactive AMOXICILLIN 875 MG TABS 1 tab by mouth twice daily AMOXICILLIN 875 MG TABS 672386 AMOXICILLIN Inactive AMOXICILLIN 500 MG CAPS 2 po BID x 10 days AMOXICILLIN 500 MG CAPS 232183 AMOXICILLIN Inactive AMOXICILLIN 500 MG CAPS 2 po BID x 10 days AMOXICILLIN 500 MG CAPS 457284 AMOXICILLIN Inactive AUGMENTIN 875-125 MG TAB 1 tab by mouth twice daily with food AUGMENTIN 875-125 MG TAB 098687 AMOXICILLIN-POT CLAVULANATE Inactive LEVAQUIN 500 MG TABS 1 pill by mouth daily LEVAQUIN 500 MG TABS 180804 LEVOFLOXACIN Inactive AMOXICILLIN 500 MG CAPS 2 po BID x 10 days AMOXICILLIN 500 MG CAPS 236120 AMOXICILLIN Inactive AMOXICILLIN 500 MG CAPS 1 cap by mouth three times a day AMOXICILLIN 500 MG CAPS 274615 AMOXICILLIN Inactive AUGMENTIN 875-125 MG TAB 1 po BID x 10 days AUGMENTIN 875-125 MG TAB 960801 AMOXICILLIN-POT CLAVULANATE Inactive PREDNISONE 20 MG TAB 2 po qd x 4 days PREDNISONE 20 MG TAB 235609 PREDNISONE Inactive AMOXICILLIN 500 MG TABS Take two tablets by mouth every 12 hours for 10 days AMOXICILLIN 500 MG TABS 708989 AMOXICILLIN Inactive Advance Directives Directive Description Start Date PERMISSION TO SHARE Immunizations Vaccine Administration Date Value Standard Description Seasonal influenza vaccine, injectable, preservative free, for > 3 years old ( Afluria, FluLaval, Fluzone, Fluvirin, Fluarix, Agriflu(>=18 yo)) Fluzone preservative free (>=3 yrs.) [GGQ087] Influenza, seasonal, injectable, preservative free Adacel (Tetanus, reduced Diphtheria, and acellular Pertussis Immunization) Adacel [[id number]] tetanus toxoid, reduced diphtheria toxoid, and acellular [...] Panel - Chemistry sodium, serum 137 mmol/L 221-953 5896/08/14 carbon dioxide, venous blood 29.7 mmol/L 21.0-32.0 potassium, serum 4.3 mmol/L 3.5-5.2 chloride, serum 99 mmol/L 98-107 blood glucose 123 mg/dL 65-110 urea nitrogen, blood 12 mg/dL 7-18 creatinine, serum 0.84 mg/dL 0.60-1.30 alanine aminotransferase (SGPT), serum 48 U/L 12-78 aspartate aminotransferase (SGOT), serum 26 U/L 15-37 calcium, serum 9.4 mg/dL 8.5-10.1 bilirubin, serum, total 1.60 mg/dL 0.00-1.00 cholesterol, serum 141 mg/dL 835-862 7015/08/14 triglyceride, serum, fasting 54 mg/dL 30-200 HDL [...] 5.0-8.5 Encounters Code Encounter Date Provider Facility CPT-06543 Level 3 Est. Patient 16:06:03 CDT Manish Castrejon [facility] CPT-86642 Level 3 Est. Patient 09:57:24 CDT Manish Castrejon [facility] CPT-90014 Level 3 Est. Patient 16:31:04 CDT Иван Mooney MD [facility] CPT-00457 Level 4 Est. Patient 12:02:18 CDT Hector Love MD [facility] CPT-44410 Level 3 Est. Patient 16:14:45 CDT Hector Love MD [facility] CPT-86332 Level 3 Est. Patient 16:53:35 CDT Иван Mooney MD [facility] CPT-72098 Level 3 Est. Patient 15:57:13 CDT Martha Montejo [facility] CPT-78426 Level 3 Est. Patient 14:30:47 DORMITORY MAID Hector Love MD [facility] CPT-54900 Level 3 Est. Patient 14:50:45 CDT Hector Love MD [facility] CPT-79774 Level 3 Est. Patient 21:17:30 CDT Jen Crystal MD, PhD [facility] CPT-60783 Level 3 Est. Patient 09:32:55 CDT Hector Love MD [facility] CPT-13670 Level 3 Est. Patient 15:11:08 DORMITORY MAID Иван Mooney MD [facility] CPT-99671 Level 3 Est. Patient 16:38:53 DORMITORY MAID Hector Love MD [facility] CPT-11142 Level 3 Est. Patient 15:46:05 CDT Hector Love MD [facility] CPT-39501 Level 3 Est. Patient 13:59:39 CDT Hector Love MD [facility] CPT-92706 Level 3 Est. Patient 14:44:46 DORMITORY MAID Hector Love MD [facility] CPT-56756 Level 3 Est. Patient 17:12:27 CDT Hector Love MD [facility] CPT-97692 Level 3 Est. Patient 15:30:32 CDT Hector Love MD [facility] CPT-49519 Level 3 Est. Patient 14:24:52 CDT Иван Mooney MD [facility] CPT-44943 Level 3 Est. Patient 14:08:38 DORMITORY MAID Hector Love MD [facility] Procedures Code Procedure Name Date Entry Date Standard Description CPT-45168 Venipuncture Draw Fee 16:18:26 CDT CPT-48089 TB Skin Test 09:57:25 CDT CPT-000 Give Appropriate Flu Vaccine 16:22:23 DORMITORY MAID CPT-82806 Free T4 - LAB USE ONLY 11:38:58 CDT CPT-64270 TSH - LAB USE ONLY 11:38:58 CDT CPT-48213 Venipuncture Draw Fee 11:38:58 CDT CPT-03425 Fluzone Quadrivalent Intramuscular Suspension 0.5 ML 16: 12:26 DORMITORY MAID CPT-62563 Immunization Single Admin 16:12:26 DORMITORY MAID CPT-J0561 Bicillin LA 1,200,000 u (PCN G Benzathine) 16:40:23 CDT CPT-53187 Abx/Therapy Injection 16:40:22 CDT CPT-J0561 Bicillin LA 1,200,000 u (PCN G Benzathine) 16:15:35 CDT CPT-62866 Immunization Single Admin 16:11:28 DORMITORY MAID CPT-80525 Fluzone Quadrivalent Intramuscular Suspension 0.5 ML 16: 11:28 DORMITORY MAID CPT-05880 Administration single or combination vaccine inc oral 13 :57:23 CDT CPT-90873 Menactra Intramuscular Injectable 13:57:23 CDT CPT-48003 First Vx Component - Ix admin via ID IM or jet inj without physician counseling 16:42:17 DORMITORY MAID CPT-30206 Fluzone preservative free (>=3 yrs.) 16:42:17 DORMITORY MAID 06/03 CPT-30606 Venipuncture Draw Fee 16:29:01 CDT CPT-09002 Chest 2V Frontal and Lat 16:23:56 CDT CPT-95935 Administration single or combination vaccine inc oral 13 :39:17 DORMITORY MAID CPT-28798 Tdap 13:39:17 DORMITORY MAID
--- OUTSIDE RECORDS SUMMARY | 2017-11-06 01:08 | XMS REPORT ---
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 Problem list No authorized problems tracked for continuity of care are available for this visit. Encounters No authorized problems tracked for encounter diagnoses are available for this visit. Medications No medications recorded for this patient visit Allergies, adverse reactions, alerts Allergen Category Ingredient Status Reaction Severity Onset Rocephin Drug Allergy Rocephin Confirmed or Verified Rocephin Drug Allergy ceftriaxone Confirmed or Verified Promethazine Drug Allergy Promethazine Confirmed or Verified MYCINS Drug Allergy MYCINS Confirmed or Verified Ibuprofen Drug Allergy Ibuprofen Confirmed or Verified Immunizations No immunizations recorded for this patient visit Relevant diagnostic tests and/or laboratory data No authorized results are available for this patient visit History of procedures Procedure Code Code Type Description Date Performed Performing Physician 12196 CPT-4 HETEROPHILE ANTIBODIES 01-17-2015 TRINI FRAIRE Functional status No functional or cognitive status observations are available for this visit. Vital signs No authorized vital signs are available for this visit. Social history No Social History or smoking status observations were recorded for this visit. ( Unknown if ever smoked.) Treatment Plan No treatment plan text is available for this visit. Hospital discharge instructions No discharge instruction text is available for this visit.
--- OUTSIDE RECORDS SUMMARY | 2017-11-06 01:09 | XMS REPORT | Clinical Summary ---
Author Author Admin, LAMBERT Organization [facility] Address Unknown Phone Unavailable Allergies, Adverse [...] Gastroenteritis, viral, acute 008.8 Resolved Martha Montejo FRONT OFFICE HELP Intestinal infection due to other organism, not elsewhere classified Bronchitis 490 Resolved Hector Love MD Bronchitis, not specified as acute or chronic Pharyngitis 462 Active Иван Mooney MD Acute pharyngitis Ingrown toenail 703.0 Active Manish Castrejon FRONT OFFICE HELP Ingrowing nail FH DIABETES ICD-V18.0 Inactive Hector Love MD BRONCHITIS, ACUTE ICD-466.0 Inactive Hector Love MD KNEE SPRAIN, LEFT ICD-844.9 Inactive Hector Love MD U R I ICD-465.9 Inactive Hector Love MD COSTOCHRONDRITIS ICD-733.6 Inactive Hector Love MD SINUSITIS, ACUTE ICD-461.9 Inactive Hector Love MD COUGH ICD-786.2 Inactive Hector Love MD Tinea corporis ICD-110.5 Inactive Hector Love MD Sinusitis ICD-461.9 Inactive Hector Love MD Fever ICD-780.60 Inactive Hector Love MD FEVER UNSPECIFIED ICD-780.60 Inactive Hector Love MD Sinusitis, frontal, acute ICD-461.1 Inactive Hector Love MD NEED FOR PROPHYLACTIC VACCINATION WITH STREPTOCOCCUS PNEUMONIAE (PNEUMOCOCCUS) AND INFLUENZA ICD-V06.6 Inactive Hector Love MD Gastroenteritis, viral, acute ICD-008.8 Inactive Martha Montejo APRN Bronchitis ICD-490 Inactive Hector Love MD 2014 Medication List Medication Instructions Start Date Stop Date Generic Name NDC Status Provider Patient Instruction FLONASE ALLERGY RELIEF 50 MCG/ACT NASAL SUSP 2 sprays each nostril daily PRN allergies FLUTICASONE PROPIONATE 98772443144 Active Hector Love MD Active AMOXICILLIN 500 MG CAPS 1 cap by mouth three times a day AMOXICILLIN 48527664063 No Longer Active Jillina Frazell FRONT OFFICE HELP Active KEFLEX 500 MG CAP 1 tab po tid CEPHALEXIN 92556647341 No Longer Active Jillina Frazell FRONT OFFICE HELP Active AMOXICILLIN 500 MG TABS 2 tabs twice a day for 10 days AMOXICILLIN 74838131040 No Longer Active Jillina Frazell FRONT OFFICE HELP Active ZYRTEC ALLERGY 10 MG CAPS 1 po qd CETIRIZINE HCL 81140090638 Active Hector Love MD Active PROGRAF 1 MG CAPS 2 tabs po bid TACROLIMUS 03001450753 Active Hector Love MD Active ZOFRAN 4 MG TABS 1 po q6hr PRN Nausea ONDANSETRON HCL 69976447617 No Longer Active Ramona Diggs LPN Active AMOXICILLIN 500 MG CAPS 2 po BID x 10 days AMOXICILLIN 81875427218 No Longer Active Marthalorie Escalantestephen GARCIA Active AUGMENTIN 875-125 MG TAB 1 tab by mouth twice daily with food AMOXICILLIN-POT CLAVULANATE 83656837697 No Longer Active Hector Love MD Active LEVAQUIN 500 MG TABS 1 pill by mouth daily LEVOFLOXACIN 68546360438 No Longer Active Jen Crystal MD PhD Active LISINOPRIL 5 MG TABS 1.5 tab qd LISINOPRIL 59457940730 Active Jen Crystal MD PhD Active KETOCONAZOLE 2 % CREA apply twice a day to rash KETOCONAZOLE 62719867414 No Longer Active Hector Love MD Active AUGMENTIN 875-125 MG TAB 1 tab by mouth twice daily with food AMOXICILLIN-POT CLAVULANATE 09630454634 No Longer Active Иван Mooney MD Active LOTRISONE 0.05-1 % CREAM Apply twice a day to affected area 07/19 CLOTRIMAZOLE-BETAMETHASONE 11058771317 No Longer Active Иван Mooney MD Active FEXOFENADINE HCL 180 MG TABS 1 Daily FEXOFENADINE HCL 38165060591 No Longer Active Hector Love MD Active PROGRAF 0.5 MG CAPS Take one by mouth daily with 1 mg TACROLIMUS 75916253693 No Longer Active Hector Love MD Active AMOXICILLIN 500 MG CAPS 2 po BID x 10 days AMOXICILLIN 09742492438 No Longer Active Hector Love MD Active RAPAMUNE 1 MG TABS 3 tabs in the am SIROLIMUS 00271858951 No Longer Active Hector Love MD Active AMOXICILLIN 500 MG CAPS 2 po BID x 10 days AMOXICILLIN 95399046651 No Longer Active Hector Love MD Active LORTAB 5 5-500 MG TABS 1/2 to 1 tablet by mouth every 4 hours as needed for pain HYDROCODONE-ACETAMINOPHEN 74291822908 No Longer Active Hector Love MD Active FLUTICASONE PROPIONATE 50 MCG/ACT SUSP INSTILL 2 SPRAYS IN EACH NOSTRIL Q D FLUTICASONE PROPIONATE 56226574971 No Longer Active Hector Love MD Active PROGRAF 1 MG CAPS 1 po bid TACROLIMUS 29382587576 No Longer Active Hector Love MD Active AMOXICILLIN 875 MG TABS 1 tab by mouth twice daily AMOXICILLIN 20692195605 No Longer Active Hector Love MD Active AMOXICILLIN 500 MG CAPS 2 po BID x 10 days AMOXICILLIN 34088411858 No Longer Active Hector Love MD Active AUGMENTIN 875-125 MG TAB 1 tab by mouth twice daily with food AMOXICILLIN-POT CLAVULANATE 79616937705 No Longer Active Hector Love MD Active AZITHROMYCIN 250 MG TABS 2 po qd x 1 day, then 1 po qd x 4 days AZITHROMYCIN 76739430545 No Longer Active Hector Love MD Active CETIRIZINE HCL 10 MG TABS 1 PO Q D CETIRIZINE HCL 18787967545 No Longer Active [place] Active PROGRAF 1 MG CAPS 1 po bid PROGRAF 1 MG CAPS 636769 TACROLIMUS Inactive FLUTICASONE PROPIONATE 50 MCG/ACT SUSP INSTILL 2 SPRAYS IN EACH NOSTRIL Q D FLUTICASONE PROPIONATE 50 MCG/ACT SUSP 965671 FLUTICASONE PROPIONATE Inactive LORTAB 5 5-500 MG TABS 1/2 to 1 tablet by mouth every 4 hours as needed for pain LORTAB 5 5-500 MG TABS HYDROCODONE- ACETAMINOPHEN Inactive RAPAMUNE 1 MG TABS 3 tabs in the am RAPAMUNE 1 MG TABS 736681 SIROLIMUS Inactive PROGRAF 0.5 MG CAPS Take one by mouth daily with 1 mg PROGRAF 0.5 MG CAPS 886991 TACROLIMUS Inactive FEXOFENADINE HCL 180 MG TABS 1 Daily FEXOFENADINE HCL 180 MG TABS 122846 FEXOFENADINE HCL Inactive LOTRISONE 0.05-1 % CREAM Apply twice a day to affected area 07/19 LOTRISONE 0.05-1 % CREAM 171802 CLOTRIMAZOLE-BETAMETHASONE Inactive KETOCONAZOLE 2 % CREA apply twice a day to rash KETOCONAZOLE 2 % CREA 591939 KETOCONAZOLE Inactive AUGMENTIN 875-125 MG TAB 1 tab by mouth twice daily with food AUGMENTIN 875-125 MG TAB 154532 AMOXICILLIN-POT CLAVULANATE Inactive ZOFRAN 4 MG TABS 1 po q6hr PRN Nausea ZOFRAN 4 MG TABS 288137 ONDANSETRON HCL Inactive AMOXICILLIN 500 MG TABS 2 tabs twice a day for 10 days AMOXICILLIN 500 MG TABS 091394 AMOXICILLIN Inactive AMOXICILLIN 500 MG CAPS 2 po BID x 10 days AMOXICILLIN 500 MG CAPS 421668 AMOXICILLIN Inactive AMOXICILLIN 875 MG TABS 1 tab by mouth twice daily AMOXICILLIN 875 MG TABS 441643 AMOXICILLIN Inactive AMOXICILLIN 500 MG CAPS 2 po BID x 10 days AMOXICILLIN 500 MG CAPS 974334 AMOXICILLIN Inactive AMOXICILLIN 500 MG CAPS 2 po BID x 10 days AMOXICILLIN 500 MG CAPS 946750 AMOXICILLIN Inactive AUGMENTIN 875-125 MG TAB 1 tab by mouth twice daily with food AUGMENTIN 875-125 MG TAB 396137 AMOXICILLIN-POT CLAVULANATE Inactive LEVAQUIN 500 MG TABS 1 pill by mouth daily LEVAQUIN 500 MG TABS 793857 LEVOFLOXACIN Inactive AMOXICILLIN 500 MG CAPS 2 po BID x 10 days AMOXICILLIN 500 MG CAPS 346705 AMOXICILLIN Inactive AMOXICILLIN 500 MG CAPS 1 cap by mouth three times a day AMOXICILLIN 500 MG CAPS 662436 AMOXICILLIN Inactive Advance Directives Directive Description Start Date PERMISSION TO SHARE Immunizations Vaccine Administration Date Value Standard Description Seasonal influenza vaccine, injectable, preservative free, for > 3 years old ( Afluria, FluLaval, Fluzone, Fluvirin, Fluarix, Agriflu(>=18 yo)) Fluzone preservative free (>=3 yrs.) [NVJ949] Influenza, seasonal, injectable, preservative free Adacel (Tetanus, reduced Diphtheria, and acellular Pertussis Immunization) Adacel [FXC387] tetanus toxoid, reduced diphtheria toxoid, and acellular [...] E&M - 3141-9 241.5 [lb_av] Weight Measured Diagnostic Results Date Name Value Unit Range Description Chart Maintenance: Outside labs entered on flowsheet - Chemistry sodium, serum 139 mmol/L potassium, serum 4.1 mmol/L blood glucose 120 mg/dL creatinine, serum 0.90 mg/dL aspartate aminotransferase (SGOT), serum 29 U/L alanine aminotransferase (SGPT), serum 58 U/L alkaline phosphatase, serum 73 U/L Chart Maintenance: Outside labs entered on flowsheet - Hematology leukocyte count, blood 8.6 10*3/mm3 hemoglobin, blood 15.0 g/dL platelet count 244 10*3/mm3 Lab Report: RapidStrep Rflx/Cx - Lab Microbial identification kit, rapid strep method Negative Negative Encounters Code Encounter Date Provider Facility CPT-81735 Level 3 Est. Patient 16:14:45 CDT Hector Love MD [facility] CPT-51636 Level 3 Est. Patient 16:53:35 CDT Иван Mooney MD [facility] CPT-26296 Level 3 Est. Patient 15:57:13 CDT Martha Montejo APRN [facility] CPT-36644 Level 3 Est. Patient 14:30:47 [employer] Hector Love MD [facility] CPT-75955 Level 3 Est. Patient 14:50:45 CDT Hector Love MD [facility] CPT-79741 Level 3 Est. Patient 21:17:30 CDT Jen Crystal MD PhD [facility] CPT-73423 Level 3 Est. Patient 09:32:55 CDT Hector Love MD [facility] CPT-12040 Level 3 Est. Patient 15:11:08 [employer] Иван Mooney MD [facility] CPT-35717 Level 3 Est. Patient 16:38:53 [employer] Hector Love MD [facility] CPT-53830 Level 3 Est. Patient 15:46:05 CDT Hector Love MD [facility] CPT-20958 Level 3 Est. Patient 13:59:39 CDT Hector Love MD [facility] CPT-65251 Level 3 Est. Patient 14:44:46 [employer] Hector Love MD [facility] CPT-05830 Level 3 Est. Patient 17:12:27 CDT Hector Love MD [facility] CPT-23590 Level 3 Est. Patient 15:30:32 CDT Hector Love MD [facility] CPT-18667 Level 3 Est. Patient 14:24:52 CDT Иван Mooney MD [facility] CPT-41698 Level 3 Est. Patient 14:08:38 [employer] Hector Love MD [facility] Procedures Code Procedure Name Date Entry Date Standard Description CPT-62515 Fluzone Quadrivalent Intramuscular Suspension 0.5 ML 16: 12:26 [employer] CPT-72932 Immunization Single Admin 16:12:26 [employer] CPT-J0561 Bicillin LA 1,200,000 u (PCN G Benzathine) 16:40:23 CDT CPT-70579 Abx/Therapy Injection 16:40:22 CDT CPT-J0561 Bicillin LA 1,200,000 u (PCN G Benzathine) 16:15:35 CDT CPT-62739 Immunization Single Admin 16:11:28 [employer] CPT-06498 Fluzone Quadrivalent Intramuscular Suspension 0.5 ML 16: 11:28 [employer] CPT-34325 Administration single or combination vaccine inc oral 13 :57:23 CDT CPT-88620 Menactra Intramuscular Injectable 13:57:23 CDT CPT-89379 First Vx Component - Ix admin via ID IM or jet inj without physician counseling 16:42:17 [employer] CPT-77146 Fluzone preservative free (>=3 yrs.) 16:42:17 [employer] 06/03 CPT-54835 Venipuncture Draw Fee 16:29:01 CDT CPT-45357 Chest 2V Frontal and Lat 16:23:56 CDT CPT-33298 Administration single or combination vaccine inc oral 13 :39:17 [employer] CPT-93351 Tdap 13:39:17 [employer]
--- OUTSIDE RECORDS SUMMARY | 2017-11-06 01:09 | XMS REPORT | Continuity of Care Document ---
Author Author [facility] Organization [facility] Address [address] [place] [address] Phone Unavailable Care Team Providers Care Mandrel Maker Name Role Phone TRINI FRAIRE PCP tel: Insurance Providers Payer Name Policy Number Subscriber Name Relationship [facility] [id number] Nitin Smith 17 Self / Same As Patient Advance Directives Directive Response Recorded Date/Time Living Will No 03/30/12 10:55am Advance Directives No 01/26/13 3:23pm Durable POA for HC No 06/12/16 9:28pm Power of Locomotive Switch Operator No 06/12/16 9:28pm Organ Donor No 06/12/16 9:28pm Living Will No 06/12/16 9:28pm Chief Complaint and Reason for Visit Chief Complaint Nausea,Vomiting,Diarrhea Reason for Visit [id number] Problems Active Problems Medical Problem Onset Date Status Influenza A Unknown Acute Upper respiratory infection Unknown Acute Medications Current Home Medications Medication Dose Units Route Directions Days/Qty Instructions Start Date Tacrolimus 0.5 Mg 4 Mg Oral Twice A Day 04/28/12 Lisinopril 5 Mg 7.5 Mg Oral Twice A Day 04/28/12 Benzonatate 100 Mg 100 Mg Oral Every Eight Hours for Cough 20 06/11/16 Past Home Medications Medication Directions Ordered Status Amoxicillin 500 Mg Tablet, 500 Mg Oral 04/28/12 Discontinued Mycophenolate Mofetil 500 Mg Tablet, 2 Tab Oral Twice A Day 01/26/13 Discontinued Prednisone 5 Mg Tablet, 1.5 Tab Oral Once A Day 01/26/13 Discontinued Hydrocodone Bit/Acetaminophen 1 Each Tablet, 1 Each Oral Every 4 To 6 Hours As Needed 01/26/13 Discontinued Social History Social History Problem Response Recorded Date/Time Smoking Status Never smoker 06/12/2016 9:29pm Smoked in the last 12 months? No 06/12/2016 9:29pm Do you dip or chew tobacco? No 06/12/2016 9:29pm Approx how many cigs per day? 0 06/12/2016 9:29pm Level of Dependence Low 06/12/2016 9:29pm Former smoker, last day smoked? NEVER 06/12/2016 9:29pm Query Response Start Date Stop Date Smoking Status Never smoker Hospital Discharge Instructions No hospital discharge instructions. Plan of Care Discharge Date 06/12/16 11:10pm Disposition 01 D/C HOME Condition at Discharge Stable Instructions/Education Provided H1N1 Influenza (ED) Forms Provided ER Discharge Phone Call Check Prescriptions See Medication Section Referrals TRINI FRAIRE - Additional Instructions/Education Plenty of fluids. Motrin as needed. Rest. Return for any concerns Functional Status Query Response Date Recorded Activities of Daily Living Performs w/o Assistance June 12, 2016 9:29pm Cognitive Function Intact June 12, 2016 9:29pm Allergies, Adverse Reactions, Alerts Allergen Type Severity Reaction Status Last Updated Promethazine Allergy Unknown Active 08/13/12 Ceftriaxone Allergy Unknown Active 08/13/12 ERYTHROMYCIN Allergy Unknown Active 04/28/12 TAPE Allergy Intermediate RASH Active 06/11/16 Immunizations No immunization records. Vital Signs Acute Vital Signs Vital Response Date/Time Temperature (Fahrenheit) 98.2 degrees F (97.6 - 99.5) 06/12/2016 10:45pm Temperature (Calculated Celsius) 36.77889 degrees C (36.4 - 37.5) 06/12/2016 10:45pm Temperature Source Oral 06/12/2016 10:45pm Pulse Pulse Ox Pulse Rate (adult) 98 beats per minute (60 - 90) 06/12/2016 10:45pm Pulse Location Modifier Left 06/12/2016 10:45pm Oxygen Saturation Respiratory Rate 20 breaths per minute (12 - 24) 06/12/2016 10:45pm O2 Sat by Pulse Oximetry 96 % (90 - 100) 06/12/2016 10:45pm Blood Pressure 139/81 mm Hg 06/12/2016 10:45pm Blood Pressure Mean 100 mm Hg 06/12/2016 10:45pm Height 5 ft 11 in Weight 240 lb Body Mass Index 33.5 kg/m^2 Results Laboratory Results Test Name Result Units Flags Reference Collection Date/Time Result Date/ Time Comments White Blood Count 7.9 x10^3/uL 4.0-11.0 08/27/2015 10:08/27/2015 10:23am Red Blood Count 4.97 10^6/uL 4.50-6.50 08/27/2015 10:08/27/2015 10 :23am Hematocrit 42.0 % 40.0-54.0 08/27/2015 10:08/27/2015 10:23am Mean Corpuscular Volume 85 fl 76-96 08/27/2015 10:08/27/2015 10: 23am Mean Corpuscular Hemoglobin 29.4 pg 27.0-32.0 08/27/2015 10:2015 10:23am Mean Corpuscular Hemoglobin Concent 34.8 g/dl 31.0-35.0 08/27/2015 10: 08/27/2015 10:23am Red Cell Distribution Width 13.0 % 11.0-16.0 08/27/2015 10:2015 10:23am Platelet Count 205 10^3/uL 150-400 08/27/2015 10:08/27/2015 10: 23am Mean Platelet Volume 10.7 fl H 6.0-10.0 08/27/2015 10:08/27/2015 10 :23am Neutrophils (%) (Auto) 46.7 % 45.0-70.0 08/27/2015 10:08/27/2015 10:23am Lymphocytes (%) (Auto) 37.6 % 20.0-40.0 08/27/2015 10:08/27/2015 10:23am Monocytes (%) (Auto) 11.7 % H 3.0-10.0 08/27/2015 10:08/27/2015 10: 23am Eosinophils (%) (Auto) 3.6 % 1.0-5.0 08/27/2015 10:08/27/2015 10: 23am Basophils (%) (Auto) 0.4 % 0.0-0.5 08/27/2015 10:1208/27/2015 10: 23am Neutrophils # (Auto) 3.67 x10^3/uL 2.00-7.50 08/27/2015 10:122015 10:23am Lymphocytes # (Auto) 2.95 x10^3/uL 1.50-4.00 08/27/2015 10:122015 10:23am Monocytes # (Auto) 0.92 x10^3/uL H 0.20-0.80 08/27/2015 10:122015 10:23am Eosinophils # (Auto) 0.28 x10^3/uL 0.04-0.40 08/27/2015 10:2015 10:23am Basophils # (Auto) 0.03 x10^3/uL 0.02-0.10 08/27/2015 10:2015 10:23am Sodium Level 136 mmol/L L 137-145 08/27/2015 10:08/27/2015 10:52am Potassium Level 3.8 mmol/L 3.5-5.1 08/27/2015 10:08/27/2015 10: 52am Carbon Dioxide Level 22.2 mmol/L 22-30 08/27/2015 10:08/27/2015 10 :52am Anion Gap 12.6 mEq/L 8-16 08/27/2015 10:08/27/2015 10:52am Blood Urea Nitrogen 11 mg/dL 9-20 08/27/2015 10:08/27/2015 10: 52am Creatinine 0.73 mg/dl 0.66-1.25 08/27/2015 10:1208/27/2015 10:52am Est Glomerular Filtrat Rate mL/min > 90.00 08/27/2015 10:08/26 10:52am GFR NORMALS: Stage I: GFR >90 Stage II GFR 60-89 Stage III GFR 30-60 Stage IV: GFR 15-29 Stage V: GFR <15 BUN/Creatinine Ratio 15.06 08/27/2015 10:1208/27/2015 10:52am Glucose Level 118 mg/dL H 74-106 08/27/2015 10:1208/27/2015 10:52am Calcium Level 9.0 mg/dL 8.4-10.2 08/27/2015 10:08/27/2015 10:52am Total Bilirubin 1.3 mg/dL 0.2-1.3 08/27/2015 10:1208/27/2015 10: 52am Direct Bilirubin 0.2 mg/dL 0-0.3 08/27/2015 10:1208/27/2015 10:52am Aspartate Amino Transf (AST/SGOT) 30 U/L 17-59 08/27/2015 10:1208/26 10:52am Alanine Aminotransferase (ALT/SGPT) 35 U/L 21-72 08/27/2015 10:03/2016 10:52am Alkaline Phosphatase 74 U/L 38-126 08/27/2015 10:08/27/2015 10: 52am Total Protein 7.9 g/dL 6.4-8.4 08/27/2015 10:08/27/2015 10:52am Albumin 4.0 g/dL 3.4-5.5 08/27/2015 10:08/27/2015 10:52am Tacrolimus (Prograf) Level 3.5 mcg/L L 08/27/2015 10:08/29/2015 8 :02am No definitive therapeutic or toxic ranges have been established. Optimal blood drug levels are influenced by type of transplant, patient response, time post- transplant, co-administration of other drugs, and drug formulation. The following trough range is a suggested guideline: 5.0-20.0 mcg/L. THIS TEST WAS PERFORMED AT: [place] [address] CHAD BARRIOS DO,MPH Gamma Glutamyl Transpeptidase 29 U/L 3-70 08/27/2015 10:12am 2015 5:28am THIS TEST WAS PERFORMED AT: [place] [address] CHAD BARRIOS DO,MPH Pending Laboratory Results Test Name Collection Date/Time Procedures No known history of procedures. Encounters Encounter Location Arrival/Admit Date Discharge/Depart Date Attending Provider Departed Emergency Room [facility] 06/12/16 9:25pm 06/12/16 11: 10pm BELÉN ZUÑIGA Departed Emergency Room [facility] 06/11/16 1:25pm 06/11/16 2: 35pm PERI FLYNN APRN Registered [facility] 11/12/15 10:06am RAMON JOHNS Registered [facility] 08/27/15 9:45am RAMON JOHNS Recent Diagnosis
--- OUTSIDE RECORDS SUMMARY | 2017-11-06 01:10 | XMS REPORT | Clinical Summary ---
Author Author Admin, LAMBERT Organization [facility] Address Unknown Phone Unavailable Allergies, Adverse Reactions, [...] Fever, unspecified Tinea corporis 110.5 Resolved Hector oLve MD Dermatophytosis of the body Sinusitis 461.9 [...] Gastroenteritis, viral, acute 008.8 Resolved Martha Montejo SECTION HOUSEKEEPER Intestinal infection due to other organism, not [...] employment physical examination V70.0 Active Manish Castrejon SECTION HOUSEKEEPER Routine general medical examination at a health care facility Exposure to mononucleosis V01.79 Active Manish Castrejon SECTION HOUSEKEEPER Contact with or exposure to other viral diseases Stress at work V62.1 Active Jillina Frazell SECTION HOUSEKEEPER Adverse effects of work environment FH DIABETES ICD-V18.0 Inactive Hector Love MD [...] Gastroenteritis, viral, acute ICD-008.8 Inactive Martha Montejo SECTION HOUSEKEEPER Bronchitis ICD-490 Inactive Hector Love MD 2014 Pharyngitis ICD-462 Inactive Hector Love MD Ingrown toenail ICD-703.0 Inactive Hector Love MD Malorie rodriguez, right ICD-703.0 Inactive Hector Love MD Medication List Medication Instructions Start Date Stop Date Generic Name ND Status Provider Patient Instruction PREDNISONE 20 MG ORAL TABLET 1 tablet daily x 2 days PREDNISONE 08415721150 No Longer Active Jillina Salvatorel SECTION HOUSEKEEPER Active AMOXICILLIN 500 MG ORAL TABLET Take two tablets by mouth every 12 hours for 10 days AMOXICILLIN 80676078163 No Longer Active Иван Mooney MD Active VITAMIN C 500 MG ORAL TABLET CHEWABLE ASCORBIC ACID 97297536632 Active Иван Mooney MD Active PREDNISONE 20 MG ORAL TABLET 2 po qd x 4 days PREDNISONE 97119315863 No Longer Active Hector Love MD Active HYDROCODONE-ACETAMINOPHEN 5-325 MG ORAL TABLET 1/2 to 1 po q 4 hours prn pain HYDROCODONE-ACETAMINOPHEN 57540422137 No Longer Active Hector Love MD Active FLONASE ALLERGY RELIEF 50 MCG/ACT NASAL SUSPENSION 2 spray each nostril daily prn allergies FLUTICASONE PROPIONATE 35279943901 Active Hector Love MD Active AUGMENTIN 875-125 MG ORAL TABLET 1 po BID x 10 days AMOXICILLIN-POT CLAVULANATE 91292203902 No Longer Active Hector Love MD Active FLONASE ALLERGY RELIEF 50 MCG/ACT NASAL SUSPENSION 2 sprays each nostril daily PRN allergies FLUTICASONE PROPIONATE 80589825258 No Longer Active Hector Love MD Active AMOXICILLIN 500 MG ORAL CAPSULE 1 cap by mouth three times a day AMOXICILLIN 49241446883 No Longer Active Jillina Lucía GARCIA Active KEFLEX 500 MG ORAL CAPSULE 1 tab po tid CEPHALEXIN 38418211108 No Longer Active Jillina Frazell SECTION HOUSEKEEPER Active AMOXICILLIN 500 MG ORAL TABLET 2 tabs twice a day for 10 days AMOXICILLIN 36521199359 No Longer Active Jillina Frazell SECTION HOUSEKEEPER Active ZYRTEC ALLERGY 10 MG ORAL CAPSULE 1 po qd CETIRIZINE HCL 90548338131 Active Hector Love MD Active PROGRAF 1 MG ORAL CAPSULE 2 tabs po bid TACROLIMUS 63042257547 Active Hector Love MD Active ZOFRAN 4 MG ORAL TABLET 1 po q6hr PRN Nausea ONDANSETRON HCL 63216705543 No Longer Active Ramona Diggs LPN Active AMOXICILLIN 500 MG ORAL CAPSULE 2 po BID x 10 days AMOXICILLIN 34753286451 No Longer Active Martha Montejo SECTION HOUSEKEEPER Active AUGMENTIN 875-125 MG ORAL TABLET 1 tab by mouth twice daily with food AMOXICILLIN-POT CLAVULANATE 43979681567 No Longer Active Hector Love MD Active LEVAQUIN 500 MG ORAL TABLET 1 pill by mouth daily LEVOFLOXACIN 32666223049 No Longer Active Jen Crystal MD PhD Active LISINOPRIL 5 MG ORAL TABLET 1.5 tab qd LISINOPRIL 72247534412 Active Jen Crystal MD PhD Active KETOCONAZOLE 2 % EXTERNAL CREAM apply twice a day to rash KETOCONAZOLE 17578842805 No Longer Active Hector Love MD Active AUGMENTIN 875-125 MG ORAL TABLET 1 tab by mouth twice daily with food AMOXICILLIN-POT CLAVULANATE 30941815792 No Longer Active Иван Mooney MD Active LOTRISONE 1-0.05 % EXTERNAL CREAM Apply twice a day to affected area CLOTRIMAZOLE-BETAMETHASONE 68268110145 No Longer Active Иван Mooney MD Active FEXOFENADINE HCL 180 MG ORAL TABLET 1 Daily FEXOFENADINE HCL 98618348033 No Longer Active Hector Love MD Active PROGRAF 0.5 MG ORAL CAPSULE Take one by mouth daily with 1 mg TACROLIMUS 94814326288 No Longer Active Hector Love MD Active AMOXICILLIN 500 MG ORAL CAPSULE 2 po BID x 10 days AMOXICILLIN 52478274828 No Longer Active Hector Love MD Active RAPAMUNE 1 MG ORAL TABLET 3 tabs in the am SIROLIMUS 52415138786 No Longer Active Hector Love MD Active AMOXICILLIN 500 MG ORAL CAPSULE 2 po BID x 10 days AMOXICILLIN 37988189704 No Longer Active Hector Love MD Active LORTAB 5-500 MG ORAL TABLET 1/2 to 1 tablet by mouth every 4 hours as needed for pain HYDROCODONE-ACETAMINOPHEN 40577182239 No Longer Active Hector Love MD Active FLUTICASONE PROPIONATE 50 MCG/ACT NASAL SUSPENSION INSTILL 2 SPRAYS IN EACH NOSTRIL Q D FLUTICASONE PROPIONATE 44116689299 No Longer Active Hector Love MD Active PROGRAF 1 MG ORAL CAPSULE 1 po bid TACROLIMUS 33710723909 No Longer Active Hector Love MD Active AMOXICILLIN 875 MG ORAL TABLET 1 tab by mouth twice daily AMOXICILLIN 09738285109 No Longer Active Hector Love MD Active AMOXICILLIN 500 MG ORAL CAPSULE 2 po BID x 10 days AMOXICILLIN 26311861377 No Longer Active Hector Love MD Active AUGMENTIN 875-125 MG ORAL TABLET 1 tab by mouth twice daily with food AMOXICILLIN-POT CLAVULANATE 15046641270 No Longer Active Hector Love MD Active AZITHROMYCIN 250 MG ORAL TABLET 2 po qd x 1 day, then 1 po qd x 4 days 06/19 AZITHROMYCIN 52500306042 No Longer Active Hector Love MD Active CETIRIZINE HCL 10 MG ORAL TABLET 1 PO Q D CETIRIZINE HCL 90024641557 No Longer Active Waleska Lucasr Active PROGRAF 1 MG ORAL CAPSULE 1 po bid PROGRAF 1 MG ORAL CAPSULE 048854 TACROLIMUS Inactive FLUTICASONE PROPIONATE 50 MCG/ACT NASAL SUSPENSION INSTILL 2 SPRAYS IN EACH NOSTRIL Q D FLUTICASONE PROPIONATE 50 MCG/ACT NASAL SUSPENSION 2906720 FLUTICASONE PROPIONATE Inactive LORTAB 5-500 MG ORAL TABLET 1/2 to 1 tablet by mouth every 4 hours as needed for pain LORTAB 5-500 MG ORAL TABLET 968224 HYDROCODONE-ACETAMINOPHEN Inactive RAPAMUNE 1 MG ORAL TABLET 3 tabs in the am RAPAMUNE 1 MG ORAL TABLET 043896 SIROLIMUS Inactive PROGRAF 0.5 MG ORAL CAPSULE Take one by mouth daily with 1 mg PROGRAF 0.5 MG ORAL CAPSULE 295117 TACROLIMUS Inactive FEXOFENADINE HCL 180 MG ORAL TABLET 1 Daily FEXOFENADINE HCL 180 MG ORAL TABLET 799315 FEXOFENADINE HCL Inactive LOTRISONE 1-0.05 % EXTERNAL CREAM Apply twice a day to affected area LOTRISONE 1-0.05 % EXTERNAL CREAM 399537 CLOTRIMAZOLE- BETAMETHASONE Inactive KETOCONAZOLE 2 % EXTERNAL CREAM apply twice a day to rash KETOCONAZOLE 2 % EXTERNAL CREAM 496651 KETOCONAZOLE Inactive AUGMENTIN 875-125 MG ORAL TABLET 1 tab by mouth twice daily with food AUGMENTIN 875-125 MG ORAL TABLET 903459 AMOXICILLIN-POT CLAVULANATE Inactive ZOFRAN 4 MG ORAL TABLET 1 po q6hr PRN Nausea ZOFRAN 4 MG ORAL TABLET 891224 ONDANSETRON HCL Inactive AMOXICILLIN 500 MG ORAL TABLET 2 tabs twice a day for 10 days AMOXICILLIN 500 MG ORAL TABLET 514567 AMOXICILLIN Inactive FLONASE ALLERGY RELIEF 50 MCG/ACT NASAL SUSPENSION 2 sprays each nostril daily PRN allergies FLONASE ALLERGY RELIEF 50 MCG/ACT NASAL SUSPENSION 1702361 FLUTICASONE PROPIONATE Inactive HYDROCODONE-ACETAMINOPHEN 5-325 MG ORAL TABLET 1/2 to 1 po q 4 hours prn pain HYDROCODONE-ACETAMINOPHEN 5-325 MG ORAL TABLET 867283 HYDROCODONE-ACETAMINOPHEN Inactive PREDNISONE 20 MG ORAL TABLET 1 tablet daily x 2 days PREDNISONE 20 MG ORAL TABLET 060660 PREDNISONE Inactive AMOXICILLIN 500 MG ORAL CAPSULE 2 po BID x 10 days AMOXICILLIN 500 MG ORAL CAPSULE 906287 AMOXICILLIN Inactive AMOXICILLIN 875 MG ORAL TABLET 1 tab by mouth twice daily AMOXICILLIN 875 MG ORAL TABLET 612751 AMOXICILLIN Inactive AMOXICILLIN 500 MG ORAL CAPSULE 2 po BID x 10 days AMOXICILLIN 500 MG ORAL CAPSULE 237882 AMOXICILLIN Inactive AMOXICILLIN 500 MG ORAL CAPSULE 2 po BID x 10 days AMOXICILLIN 500 MG ORAL CAPSULE 250562 AMOXICILLIN Inactive AUGMENTIN 875-125 MG ORAL TABLET 1 tab by mouth twice daily with food AUGMENTIN 875-125 MG ORAL TABLET 388845 AMOXICILLIN-POT CLAVULANATE Inactive LEVAQUIN 500 MG ORAL TABLET 1 pill by mouth daily LEVAQUIN 500 MG ORAL TABLET 300942 LEVOFLOXACIN Inactive AMOXICILLIN 500 MG ORAL CAPSULE 2 po BID x 10 days AMOXICILLIN 500 MG ORAL CAPSULE 886255 AMOXICILLIN Inactive AMOXICILLIN 500 MG ORAL CAPSULE 1 cap by mouth three times a day AMOXICILLIN 500 MG ORAL CAPSULE 541974 AMOXICILLIN Inactive AUGMENTIN 875-125 MG ORAL TABLET 1 po BID x 10 days AUGMENTIN 875-125 MG ORAL TABLET 360288 AMOXICILLIN-POT CLAVULANATE Inactive PREDNISONE 20 MG ORAL TABLET 2 po qd x 4 days PREDNISONE 20 MG ORAL TABLET 057292 PREDNISONE Inactive AMOXICILLIN 500 MG ORAL TABLET Take two tablets by mouth every 12 hours for 10 days AMOXICILLIN 500 MG ORAL TABLET 992360 AMOXICILLIN Inactive Advance Directives Directive Description Start Date PERMISSION TO SHARE Immunizations Vaccine Administration Date Value Standard Description Seasonal influenza vaccine, injectable, preservative free, for > 3 years old ( Afluria, FluLaval, Fluzone, Fluvirin, Fluarix, Agriflu(>=18 yo)) Fluzone preservative free (>=3 yrs.) [FXL375] Influenza, seasonal, injectable, preservative free Adacel (Tetanus, reduced Diphtheria, and acellular Pertussis Immunization) Adacel [QND028] tetanus toxoid, reduced diphtheria toxoid, and acellular [...] temperature weight E&M 238 [lb_av] Weight Measured Diagnostic Results Date Name Value Unit Range Description Lab Report: CBC W/DIFF, Comp. Metabolic Panel, Magnesium, Phos, Lipid Panel - Chemistry sodium, serum 137 mmol/L 679-459 4697/08/14 carbon dioxide, venous blood 29.7 mmol/L 21.0-32.0 potassium, serum 4.3 mmol/L 3.5-5.2 chloride, serum 99 mmol/L 98-107 blood glucose 123 mg/dL 65-110 urea nitrogen, blood 12 mg/dL 7-18 creatinine, serum 0.84 mg/dL 0.60-1.30 alanine aminotransferase (SGPT), serum 48 U/L 12-78 aspartate aminotransferase (SGOT), serum 26 U/L 15-37 calcium, serum 9.4 mg/dL 8.5-10.1 bilirubin, serum, total 1.60 mg/dL 0.00-1.00 cholesterol, serum 141 mg/dL 707-808 5429/08/14 triglyceride, serum, fasting 54 mg/dL 30-200 HDL [...] semiquantitative 6.0 5.0-8.5 Lab Report: VITAMIN D, 25-HYDROXY/31121 - Chemistry vitamin D 25-hydroxy, serum 18 ng/mL 30-100 Encounters Code Encounter Date Provider Facility CPT-46430 Level 3 Est. Patient 11:35:07 CDT Manish Castrejon [facility] CPT-62572 Level 3 Est. Patient 17:22:36 CDT Tracy Frey [facility] CPT-82961 Level 3 Est. Patient 16:06:03 CDT Manish Castrejon [facility] CPT-74592 Level 3 Est. Patient 09:57:24 CDT Manish Castrejon [facility] CPT-74655 Level 3 Est. Patient 16:31:04 CDT Иван Mooney MD [facility] CPT-92898 Level 4 Est. Patient 12:02:18 CDT Hector Love MD [facility] CPT-09026 Level 3 Est. Patient 16:14:45 CDT Hector Love MD [facility] CPT-01956 Level 3 Est. Patient 16:53:35 CDT Иван Mooney MD [facility] CPT-33224 Level 3 Est. Patient 15:57:13 CDT Martha Montejo RADHA [facility] CPT-36684 Level 3 Est. Patient 14:30:47 [employer]PERINTENDENT Hector Love MD [facility] CPT-13425 Level 3 Est. Patient 14:50:45 CDT Hector Love MD [facility] CPT-97474 Level 3 Est. Patient 21:17:30 CDT Jen Crystal MD PhD [facility] CPT-25795 Level 3 Est. Patient 09:32:55 CDT Hector Love MD [facility] CPT-03932 Level 3 Est. Patient 15:11:08 [employer] SUPERINTENDENT Иван Mooney MD [facility] CPT-64290 Level 3 Est. Patient 16:38:53 O[employer] GAS SUPERINTENDENT Hector Love MD [facility] CPT-98632 Level 3 Est. Patient 15:46:05 CDT Hector Love MD [facility] CPT-77587 Level 3 Est. Patient 13:59:39 CDT Hector Love MD [facility] CPT-69118 Level 3 Est. Patient 14:44:46 OIL [employer] G[employer] SUPERINTENDENT Hector Love MD [facility] CPT-03611 Level 3 Est. Patient 17:12:27 CDT Hector Love MD [facility] CPT-11248 Level 3 Est. Patient 15:30:32 CDT Hector Love MD [facility] CPT-48680 Level 3 Est. Patient 14:24:52 CDT Иван Mooney MD [facility] CPT-98397 Level 3 Est. Patient 14:08:38 [employer] SUPERINTENDENT Hector Love MD [facility] Procedures Code Procedure Name Date Entry Date Standard Description CPT-09928 Venipuncture Draw Fee 16:18:26 CDT CPT-72582 TB Skin Test 09:57:25 CDT CPT-000 Give Appropriate Flu Vaccine 16:22:23 [employer]PERINTENDENT CPT-52904 Free T4 - LAB USE ONLY 11:38:58 CDT CPT-29878 TSH - LAB USE ONLY 11:38:58 CDT CPT-87879 Venipuncture Draw Fee 11:38:58 CDT CPT-70781 Fluzone Quadrivalent Intramuscular Suspension 0.5 ML 16: 12:26 [employer] SUPERINTENDENT CPT-48356 Immunization Single Admin 16:12:26 OIL AND GAS SUPERINTENDENT CPT-J0561 Bicillin LA 1,200,000 u (PCN G Benzathine) 16:40:23 CDT CPT-86463 Abx/Therapy Injection 16:40:22 CDT CPT-J0561 Bicillin LA 1,200,000 u (PCN G Benzathine) 16:15:35 CDT CPT-01551 Immunization Single Admin 16:11:28 OIL AND GAS SUPERINTENDENT CPT-14338 Fluzone Quadrivalent Intramuscular Suspension 0.5 ML 16: 11:28 OIL AND GAS SUPERINTENDENT CPT-90893 Administration single or combination vaccine inc oral 13 :57:23 CDT CPT-62460 Menactra Intramuscular Injectable 13:57:23 CDT CPT-14367 First Vx Component - Ix admin via ID IM or jet inj without physician counseling 16:42:17 OIL AND GAS SUPERINTENDENT CPT-57363 Fluzone preservative free (>=3 yrs.) 16:42:17 OIL AND GAS SUPERINTENDENT 06/03 CPT-44900 Venipuncture Draw Fee 16:29:01 CDT CPT-46826 Chest 2V Frontal and Lat 16:23:56 CDT CPT-77551 Administration single or combination vaccine inc oral 13 :39:17 OIL AND GAS SUPERINTENDENT CPT-46674 Tdap 13:39:17 OIL AND GAS SUPERINTENDENT
--- OUTSIDE RECORDS SUMMARY | 2017-11-06 01:10 | XMS REPORT | Clinical Summary ---
Author Author Admin, LAMBERT Organization [facility] Address Unknown Phone Unavailable Allergies, Adverse [...] MG CAPS 1 po qd CETIRIZINE HCL 81434975084 Active Hector Love MD Active PROGRAF 1 MG CAPS 2 tabs po bid TACROLIMUS 81805376156 Active Hector Love MD Active AMOXICILLIN 500 MG TABS 2 tabs twice a day for 10 days AMOXICILLIN 81366140085 Active Иван Mooney MD Active ZOFRAN 4 MG TABS 1 po q6hr PRN Nausea ONDANSETRON HCL 66470653339 No Longer Active Ramona Diggs LPN Active AMOXICILLIN 500 MG CAPS 2 po BID x 10 days AMOXICILLIN 13837668756 No Longer Active Martha Montejo APRN Active AUGMENTIN 875-125 MG TAB 1 tab by mouth twice daily with food AMOXICILLIN-POT CLAVULANATE 65784597501 No Longer Active Hector Love MD Active FLONASE 50 MCG/ACT SUSP 2 puffs in each nostril daily PRN Allergies FLUTICASONE PROPIONATE 93596797273 Active Hector Love MD Active LEVAQUIN 500 MG TABS 1 pill by mouth daily LEVOFLOXACIN 63281979547 No Longer Active Jen Crystal MD PhD Active LISINOPRIL 5 MG TABS 1.5 tab qd LISINOPRIL 74208106247 Active Jen Crystal MD PhD Active KETOCONAZOLE 2 % CREA apply twice a day to rash KETOCONAZOLE 28659526448 No Longer Active Hector Love MD Active AUGMENTIN 875-125 MG TAB 1 tab by mouth twice daily with food AMOXICILLIN-POT CLAVULANATE 32390548458 No Longer Active Иван Mooney MD Active LOTRISONE 0.05-1 % CREAM Apply twice a day to affected area 07/19 CLOTRIMAZOLE-BETAMETHASONE 98397868891 No Longer Active Иван Mooney MD Active FEXOFENADINE HCL 180 MG TABS 1 Daily FEXOFENADINE HCL 58948609340 No Longer Active Hector Love MD Active PROGRAF 0.5 MG CAPS Take one by mouth daily with 1 mg TACROLIMUS 72063884481 No Longer Active Hector Love MD Active AMOXICILLIN 500 MG CAPS 2 po BID x 10 days AMOXICILLIN 33849537735 No Longer Active Hector Love MD Active RAPAMUNE 1 MG TABS 3 tabs in the am SIROLIMUS 13044046039 No Longer Active Hector Love MD Active AMOXICILLIN 500 MG CAPS 2 po BID x 10 days AMOXICILLIN 12821235289 No Longer Active Hector Love MD Active LORTAB 5 5-500 MG TABS 1/2 to 1 tablet by mouth every 4 hours as needed for pain HYDROCODONE-ACETAMINOPHEN 09002939393 No Longer Active Hector Love MD Active FLUTICASONE PROPIONATE 50 MCG/ACT SUSP INSTILL 2 SPRAYS IN EACH NOSTRIL Q D FLUTICASONE PROPIONATE 47706600878 No Longer Active Hector Love MD Active PROGRAF 1 MG CAPS 1 po bid TACROLIMUS 42907323672 No Longer Active Hector Love MD Active AMOXICILLIN 875 MG TABS 1 tab by mouth twice daily AMOXICILLIN 31946581473 No Longer Active Hector Love MD Active AMOXICILLIN 500 MG CAPS 2 po BID x 10 days AMOXICILLIN 28967564852 No Longer Active Hector Love MD Active AUGMENTIN 875-125 MG TAB 1 tab by mouth twice daily with food AMOXICILLIN-POT CLAVULANATE 93233486513 No Longer Active Hector Love MD Active AZITHROMYCIN 250 MG TABS 2 po qd x 1 day, then 1 po qd x 4 days AZITHROMYCIN 41917001440 No Longer Active Hector Love MD Active CETIRIZINE HCL 10 MG TABS 1 PO Q D CETIRIZINE HCL 70141380401 No Longer Active Waleska Elizabeth Active PROGRAF 1 MG CAPS 1 po bid PROGRAF 1 MG CAPS 057794 TACROLIMUS Inactive FLUTICASONE PROPIONATE 50 MCG/ACT SUSP INSTILL 2 SPRAYS IN EACH NOSTRIL Q D FLUTICASONE PROPIONATE 50 MCG/ACT SUSP 191471 FLUTICASONE PROPIONATE Inactive LORTAB 5 5-500 MG TABS 1/2 to 1 tablet by mouth every 4 hours as needed for pain LORTAB 5 5-500 MG TABS HYDROCODONE- ACETAMINOPHEN Inactive RAPAMUNE 1 MG TABS 3 tabs in the am RAPAMUNE 1 MG TABS 187516 SIROLIMUS Inactive PROGRAF 0.5 MG CAPS Take one by mouth daily with 1 mg PROGRAF 0.5 MG CAPS 017456 TACROLIMUS Inactive FEXOFENADINE HCL 180 MG TABS 1 Daily FEXOFENADINE HCL 180 MG TABS 383418 FEXOFENADINE HCL Inactive LOTRISONE 0.05-1 % CREAM Apply twice a day to affected area 07/19 LOTRISONE 0.05-1 % CREAM 152818 CLOTRIMAZOLE-BETAMETHASONE Inactive KETOCONAZOLE 2 % CREA apply twice a day to rash KETOCONAZOLE 2 % CREA 789138 KETOCONAZOLE Inactive AUGMENTIN 875-125 MG TAB 1 tab by mouth twice daily with food AUGMENTIN 875-125 MG TAB 817675 AMOXICILLIN-POT CLAVULANATE Inactive ZOFRAN 4 MG TABS 1 po q6hr PRN Nausea ZOFRAN 4 MG TABS 946628 ONDANSETRON HCL Inactive AMOXICILLIN 500 MG CAPS 2 po BID x 10 days AMOXICILLIN 500 MG CAPS 391615 AMOXICILLIN Inactive AMOXICILLIN 875 MG TABS 1 tab by mouth twice daily AMOXICILLIN 875 MG TABS 812569 AMOXICILLIN Inactive AMOXICILLIN 500 MG CAPS 2 po BID x 10 days AMOXICILLIN 500 MG CAPS 643697 AMOXICILLIN Inactive AMOXICILLIN 500 MG CAPS 2 po BID x 10 days AMOXICILLIN 500 MG CAPS 486632 AMOXICILLIN Inactive AUGMENTIN 875-125 MG TAB 1 tab by mouth twice daily with food AUGMENTIN 875-125 MG TAB 456085 AMOXICILLIN-POT CLAVULANATE Inactive LEVAQUIN 500 MG TABS 1 pill by mouth daily LEVAQUIN 500 MG TABS 376123 LEVOFLOXACIN Inactive AMOXICILLIN 500 MG CAPS 2 po BID x 10 days AMOXICILLIN 500 MG CAPS 140968 AMOXICILLIN Inactive Advance Directives Directive Description Start Date PERMISSION TO SHARE Immunizations Vaccine Administration Date Value Standard Description Seasonal influenza vaccine, injectable, preservative free, for > 3 years old ( Afluria, FluLaval, Fluzone, Fluvirin, Fluarix, Agriflu(>=18 yo)) Fluzone preservative free (>=3 yrs.) [AUZ797] Influenza, seasonal, injectable, preservative free Adacel (Tetanus, reduced Diphtheria, and acellular Pertussis Immunization) Adacel [IAA372] tetanus toxoid, reduced diphtheria toxoid, and acellular [...] E&M - 3141-9 233.56 [lb_av] Weight Measured Diagnostic Results Date Name [...] blood 15.0 g/dL platelet count 244 10*3/mm3 leukocyte count, blood 7.9 10*3/mm3 hemoglobin, blood 14.8 g/dL platelet count 223 10*3/mm3 Lab Report: RapidStrep Rflx/Cx - Lab Microbial identification kit, rapid strep method Negative Negative Encounters Code Encounter Date Provider Facility CPT-15995 Level 3 Est. Patient 16:14:45 CDT Hector Love MD [facility] CPT-32905 Level 3 Est. Patient 16:53:35 CDT Ивна Mooney MD [facility] CPT-38722 Level 3 Est. Patient 15:57:13 CDT Martha Montejo APRN [facility] CPT-31772 Level 3 Est. Patient 14:30:47 [employer] Hector Love MD [facility] CPT-40844 Level 3 Est. Patient 14:50:45 CDT Hector Love MD [facility] CPT-75292 Level 3 Est. Patient 21:17:30 CDT Jen Crystal MD PhD [facility] CPT-72254 Level 3 Est. Patient 09:32:55 CDT Hector Love MD [facility] CPT-10224 Level 3 Est. Patient 15:11:08 [employer] Иван Mooney MD [facility] CPT-38524 Level 3 Est. Patient 16:38:53 [employer] Hector Love MD [facility] CPT-09590 Level 3 Est. Patient 15:46:05 CDT Hector Love MD [facility] CPT-24479 Level 3 Est. Patient 13:59:39 CDT Hector Love MD [facility] CPT-39482 Level 3 Est. Patient 14:44:46 P[employer]ING [employer]ACH[employer] Hector Love MD [facility] CPT-60479 Level 3 Est. Patient 17:12:27 CDT Hector Love MD [facility] CPT-98960 Level 3 Est. Patient 15:30:32 CDT Hector Love MD [facility] CPT-23374 Level 3 Est. Patient 14:24:52 CDT Иван Mooney MD [facility] CPT-72303 Level 3 Est. Patient 14:08:38 [employer] Hector Love MD [facility] Procedures Code Procedure Name Date Entry Date Standard Description CPT-J0561 Bicillin LA 1,200,000 u (PCN G Benzathine) 16:40:23 CDT CPT-54842 Abx/Therapy Injection 16:40:22 CDT CPT-J0561 Bicillin LA 1,200,000 u (PCN G Benzathine) 16:15:35 CDT CPT-93661 Immunization Single Admin 16:11:28 [employer] CPT-67573 Fluzone Quadrivalent Intramuscular Suspension 0.5 ML 16: 11:28 [employer] CPT-62643 Administration single or combination vaccine inc oral 13 :57:23 CDT CPT-15026 Menactra Intramuscular Injectable 13:57:23 CDT CPT-61242 First Vx Component - Ix admin via ID IM or jet inj without physician counseling 16:42:17 [employer] CPT-45240 Fluzone preservative free (>=3 yrs.) 16:42:17 [employer] 06/03 CPT-77043 Venipuncture Draw Fee 16:29:01 CDT CPT-88278 Chest 2V Frontal and Lat 16:23:56 CDT CPT-15094 Administration single or combination vaccine inc oral 13 :39:17 [employer] CPT-93175 Tdap 13:39:17 [employer]
[2017-11-06] MEDS ORDERED: CHOL100045 PO (01:11)
--- OUTSIDE RECORDS SUMMARY | 2017-11-06 01:11 | XMS REPORT | Clinical Summary ---
Author Author Admin, LAMBERT Organization [employer] Address Unknown Phone Unavailable Allergies, Adverse Reactions, [...] every 12 hours for 10 days AMOXICILLIN 48404197786 Active Иван Mooney MD Active VITAMIN C 500 MG CHEW TAB ASCORBIC ACID 60658436910 Active Иван Mooney MD Active PREDNISONE 20 MG TAB 2 po qd x 4 days PREDNISONE 41713010897 No Longer Active Hector Love MD Active HYDROCODONE-ACETAMINOPHEN 5-325 MG TABS 1/2 to 1 po q 4 hours prn pain 11/06 HYDROCODONE-ACETAMINOPHEN 24677742549 No Longer Active Hector Love MD Active FLONASE ALLERGY RELIEF 50 MCG/ACT NASAL SUSP 2 spray each nostril daily prn allergies FLUTICASONE PROPIONATE 54119402853 Active Hector Love MD Active AUGMENTIN 875-125 MG TAB 1 po BID x 10 days AMOXICILLIN-POT CLAVULANATE 03803717996 No Longer Active Hector Love MD Active FLONASE ALLERGY RELIEF 50 MCG/ACT NASAL SUSP 2 sprays each nostril daily PRN allergies FLUTICASONE PROPIONATE 29382514204 No Longer Active Hector Love MD Active AMOXICILLIN 500 MG CAPS 1 cap by mouth three times a day AMOXICILLIN 98528155606 No Longer Active Jillina Frazell RADHA Active KEFLEX 500 MG CAP 1 tab po tid CEPHALEXIN 86876037557 No Longer Active Jillina Frazell TIRE STRIPPER Active AMOXICILLIN 500 MG TABS 2 tabs twice a day for 10 days AMOXICILLIN 63909553926 No Longer Active Jillina Frazell TIRE STRIPPER Active ZYRTEC ALLERGY 10 MG CAPS 1 po qd CETIRIZINE HCL 75025918497 Active Hector Love MD Active PROGRAF 1 MG CAPS 2 tabs po bid TACROLIMUS 67376791144 Active Hector Love MD Active ZOFRAN 4 MG TABS 1 po q6hr PRN Nausea ONDANSETRON HCL 41888940871 No Longer Active Ramona Diggs LPN Active AMOXICILLIN 500 MG CAPS 2 po BID x 10 days AMOXICILLIN 88529370643 No Longer Active Martha Montejo APRN Active AUGMENTIN 875-125 MG TAB 1 tab by mouth twice daily with food AMOXICILLIN-POT CLAVULANATE 33276285690 No Longer Active Hector Love MD Active LEVAQUIN 500 MG TABS 1 pill by mouth daily LEVOFLOXACIN 13474284748 No Longer Active eJn Crystal MD PhD Active LISINOPRIL 5 MG TABS 1.5 tab qd LISINOPRIL 36561518499 Active Jen Crystal MD PhD Active KETOCONAZOLE 2 % CREA apply twice a day to rash KETOCONAZOLE 31011488958 No Longer Active Hector Love MD Active AUGMENTIN 875-125 MG TAB 1 tab by mouth twice daily with food AMOXICILLIN-POT CLAVULANATE 23223648668 No Longer Active Иван Mooney MD Active LOTRISONE 0.05-1 % CREAM Apply twice a day to affected area 07/19 CLOTRIMAZOLE-BETAMETHASONE 29030374661 No Longer Active Иван Mooney MD Active FEXOFENADINE HCL 180 MG TABS 1 Daily FEXOFENADINE HCL 04293674650 No Longer Active Hector Love MD Active PROGRAF 0.5 MG CAPS Take one by mouth daily with 1 mg TACROLIMUS 91765360969 No Longer Active Hector Love MD Active AMOXICILLIN 500 MG CAPS 2 po BID x 10 days AMOXICILLIN 65455175805 No Longer Active Hector Love MD Active RAPAMUNE 1 MG TABS 3 tabs in the am SIROLIMUS 48600445726 No Longer Active Hector Love MD Active AMOXICILLIN 500 MG CAPS 2 po BID x 10 days AMOXICILLIN 72798617259 No Longer Active Hector Love MD Active LORTAB 5 5-500 MG TABS 1/2 to 1 tablet by mouth every 4 hours as needed for pain HYDROCODONE-ACETAMINOPHEN 50743120843 No Longer Active Hector Love MD Active FLUTICASONE PROPIONATE 50 MCG/ACT SUSP INSTILL 2 SPRAYS IN EACH NOSTRIL Q D FLUTICASONE PROPIONATE 22123068273 No Longer Active Hector Love MD Active PROGRAF 1 MG CAPS 1 po bid TACROLIMUS 69111440397 No Longer Active Hector Love MD Active AMOXICILLIN 875 MG TABS 1 tab by mouth twice daily AMOXICILLIN 53079579723 No Longer Active Hector Love MD Active AMOXICILLIN 500 MG CAPS 2 po BID x 10 days AMOXICILLIN 99495036069 No Longer Active Hector Love MD Active AUGMENTIN 875-125 MG TAB 1 tab by mouth twice daily with food AMOXICILLIN-POT CLAVULANATE 86752265683 No Longer Active Hector Love MD Active AZITHROMYCIN 250 MG TABS 2 po qd x 1 day, then 1 po qd x 4 days AZITHROMYCIN 71049403286 No Longer Active Hector Love MD Active CETIRIZINE HCL 10 MG TABS 1 PO Q D CETIRIZINE HCL 44689806623 No Longer Active Waleska Jolley Active PROGRAF 1 MG CAPS 1 po bid PROGRAF 1 MG CAPS 984172 TACROLIMUS Inactive FLUTICASONE PROPIONATE 50 MCG/ACT SUSP INSTILL 2 SPRAYS IN EACH NOSTRIL Q D FLUTICASONE PROPIONATE 50 MCG/ACT SUSP 3239036 FLUTICASONE PROPIONATE Inactive LORTAB 5 5-500 MG TABS 1/2 to 1 tablet by mouth every 4 hours as needed for pain LORTAB 5 5-500 MG TABS HYDROCODONE- ACETAMINOPHEN Inactive RAPAMUNE 1 MG TABS 3 tabs in the am RAPAMUNE 1 MG TABS 460036 SIROLIMUS Inactive PROGRAF 0.5 MG CAPS Take one by mouth daily with 1 mg PROGRAF 0.5 MG CAPS 299524 TACROLIMUS Inactive FEXOFENADINE HCL 180 MG TABS 1 Daily FEXOFENADINE HCL 180 MG TABS 304955 FEXOFENADINE HCL Inactive LOTRISONE 0.05-1 % CREAM Apply twice a day to affected area 07/19 LOTRISONE 0.05-1 % CREAM 751032 CLOTRIMAZOLE-BETAMETHASONE Inactive KETOCONAZOLE 2 % CREA apply twice a day to rash KETOCONAZOLE 2 % CREA 254999 KETOCONAZOLE Inactive AUGMENTIN 875-125 MG TAB 1 tab by mouth twice daily with food AUGMENTIN 875-125 MG TAB 710101 AMOXICILLIN-POT CLAVULANATE Inactive ZOFRAN 4 MG TABS 1 po q6hr PRN Nausea ZOFRAN 4 MG TABS 303412 ONDANSETRON HCL Inactive AMOXICILLIN 500 MG TABS 2 tabs twice a day for 10 days AMOXICILLIN 500 MG TABS 715542 AMOXICILLIN Inactive FLONASE ALLERGY RELIEF 50 MCG/ACT NASAL SUSP 2 sprays each nostril daily PRN allergies FLONASE ALLERGY RELIEF 50 MCG/ACT NASAL SUSP 9209713 FLUTICASONE PROPIONATE Inactive HYDROCODONE-ACETAMINOPHEN 5-325 MG TABS 1/2 to 1 po q 4 hours prn pain 11/06 HYDROCODONE-ACETAMINOPHEN 5-325 MG TABS 994359 HYDROCODONE- ACETAMINOPHEN Inactive AMOXICILLIN 500 MG CAPS 2 po BID x 10 days AMOXICILLIN 500 MG CAPS 945846 AMOXICILLIN Inactive AMOXICILLIN 875 MG TABS 1 tab by mouth twice daily AMOXICILLIN 875 MG TABS 271907 AMOXICILLIN Inactive AMOXICILLIN 500 MG CAPS 2 po BID x 10 days AMOXICILLIN 500 MG CAPS 083139 AMOXICILLIN Inactive AMOXICILLIN 500 MG CAPS 2 po BID x 10 days AMOXICILLIN 500 MG CAPS 715365 AMOXICILLIN Inactive AUGMENTIN 875-125 MG TAB 1 tab by mouth twice daily with food AUGMENTIN 875-125 MG TAB 453306 AMOXICILLIN-POT CLAVULANATE Inactive LEVAQUIN 500 MG TABS 1 pill by mouth daily LEVAQUIN 500 MG TABS 478081 LEVOFLOXACIN Inactive AMOXICILLIN 500 MG CAPS 2 po BID x 10 days AMOXICILLIN 500 MG CAPS 259080 AMOXICILLIN Inactive AMOXICILLIN 500 MG CAPS 1 cap by mouth three times a day AMOXICILLIN 500 MG CAPS 959632 AMOXICILLIN Inactive AUGMENTIN 875-125 MG TAB 1 po BID x 10 days AUGMENTIN 875-125 MG TAB 638365 AMOXICILLIN-POT CLAVULANATE Inactive PREDNISONE 20 MG TAB 2 po qd x 4 days PREDNISONE 20 MG TAB 620166 PREDNISONE Inactive Advance Directives Directive Description Start Date PERMISSION TO SHARE Immunizations Vaccine Administration Date Value Standard Description Seasonal influenza vaccine, injectable, preservative free, for > 3 years old ( Afluria, FluLaval, Fluzone, Fluvirin, Fluarix, Agriflu(>=18 yo)) Fluzone preservative free (>=3 yrs.) [[id number]] Influenza, seasonal, injectable, preservative free Adacel (Tetanus, reduced Diphtheria, and acellular Pertussis Immunization) Adacel [HVH700] tetanus toxoid, reduced diphtheria toxoid, and acellular [...] 0.76-1.46 Encounters Code Encounter Date Provider Facility CPT-96177 Level 3 Est. Patient 16:31:04 CDT Иван Mooney MD [facility] CPT-80495 Level 4 Est. Patient 12:02:18 CDT Hector Love MD [facility] CPT-81789 Level 3 Est. Patient 16:14:45 CDT Hector Love MD [facility] CPT-20254 Level 3 Est. Patient 16:53:35 CDT Иван Mooney MD [facility] CPT-89576 Level 3 Est. Patient 15:57:13 CDT Martha Escalantestephen GARCIA [facility] CPT-29970 Level 3 Est. 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 Patient 14:50:45 CDT Hector Love MD [facility] CPT-02026 Level 3 Est. Patient 21:17:30 CDT Jne Crystal MD PhD [facility] CPT-04700 Level 3 Est. Patient 09:32:55 CDT Hector Love MD [facility] CPT-05192 Level 3 Est. 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 Patient 16:38:53 CENTRAL OFFICE REPAIRER SUPERVISOR Hector Love MD [facility] CPT-16209 Level 3 Est. Patient 15:46:05 CDT Hector Love MD [facility] CPT-25522 Level 3 Est. Patient 13:59:39 CDT Hector Love MD [facility] CPT-91579 Level 3 Est. Patient 14:44:46 CENTRAL OFFICE REPAIRER SUPERVISOR Hector Love MD [facility] CPT-28987 Level 3 Est. Patient 17:12:27 CDT Hector Love MD [facility] CPT-02831 Level 3 Est. Patient 15:30:32 CDT Hector Love MD [facility] CPT-04385 Level 3 Est. Patient 14:24:52 CDT Иван Mooney MD [facility] CPT-91794 Level 3 Est. Patient 14:08:38 CENTRAL OFFICE REPAIRER SUPERVISOR Hector Love MD [facility] Procedures Code Procedure Name Date Entry Date Standard Description CPT-000 Give Appropriate Flu Vaccine 16:22:23 CENTRAL OFFICE REPAIRER SUPERVISOR CPT-38056 Free T4 - LAB USE ONLY 11:38:58 CDT CPT-66930 TSH - LAB USE ONLY 11:38:58 CDT CPT-14616 Venipuncture Draw Fee 11:38:58 CDT CPT-41009 Fluzone Quadrivalent Intramuscular Suspension 0.5 ML 16: 12:26 [employer]TRAL OFFICE REPAIRER SUPERVISOR CPT-00829 Immunization Single Admin 16:12:26 CENTRAL OFFICE REPAIRER SUPERVISOR CPT-J0561 Bicillin LA 1,200,000 u (PCN G Benzathine) 16:40:23 CDT CPT-69737 Abx/Therapy Injection 16:40:22 CDT CPT-J0561 Bicillin LA 1,200,000 u (PCN G Benzathine) 16:15:35 CDT CPT-45943 Immunization Single Admin 16:11:28 CENTRAL OFFICE REPAIRER SUPERVISOR CPT-91878 Fluzone Quadrivalent Intramuscular Suspension 0.5 ML 16: 11:28 CENTRAL OFFICE REPAIRER SUPERVISOR CPT-85688 Administration single or combination vaccine inc oral 13 :57:23 CDT CPT-18910 Menactra Intramuscular Injectable 13:57:23 CDT CPT-22912 First Vx Component - Ix admin via ID IM or jet inj without physician counseling 16:42:17 CENTRAL OFFICE REPAIRER SUPERVISOR CPT-84064 Fluzone preservative free (>=3 yrs.) 16:42:17 CENTRAL OFFICE REPAIRER SUPERVISOR 06/03 CPT-58837 Venipuncture Draw Fee 16:29:01 CDT CPT-37510 Chest 2V Frontal and Lat 16:23:56 CDT CPT-96652 Administration single or combination vaccine inc oral 13 :39:17 CENTRAL OFFICE REPAIRER SUPERVISOR CPT-65399 Tdap 13:39:17 CENTRAL OFFICE REPAIRER SUPERVISOR
--- OUTSIDE RECORDS SUMMARY | 2017-11-06 01:12 | XMS REPORT | Clinical Summary ---
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 Other malaise and fatigue Body Mass Index 34.0-34.9 Adult Active Manish Castrejon CANAL DRIVER Body Mass Index 34.0-34.9, adult HYPERTENSION ICD-401.9 Inactive Hector Love MD FH DIABETES ICD-V18.0 [...] Memory loss ICD-780.93 Inactive Hector Love MD Sinusitis, frontal, acute ICD-461.1 Inactive Hector oLve MD NEED FOR PROPHYLACTIC VACCINATION WITH STREPTOCOCCUS PNEUMONIAE (PNEUMOCOCCUS) AND INFLUENZA ICD-V06.6 Inactive Hector Love MD Gastroenteritis, viral, acute ICD-008.8 Inactive Martha Montejo CANAL DRIVER Bronchitis ICD-490 Inactive Hector Love MD 2014 [...] MD Exposure to mononucleosis ICD-V01.79 Inactive Hector Lvoe MD Stress at work ICD-V62.1 Inactive Hector Love MD Medication List Medication Instructions Start Date Stop Date Generic Name NDC Status Provider Patient Instruction PROGRAF 1 MG ORAL CAPSULE 2 po BID TACROLIMUS 62258698222 Active Hector Love MD Active CETIRIZINE HCL 10 MG ORAL TABLET 1 po qd PRN Allergies CETIRIZINE HCL 55564754592 Active Hector Love MD Active LISINOPRIL 5 MG ORAL TABLET 1.5 po qd LISINOPRIL 53102641503 Active Hector Love MD Active FLUTICASONE PROPIONATE 50 MCG/ACT NASAL SUSPENSION 2 sprays/nostril qd PRN Congestion/Allergies FLUTICASONE PROPIONATE 89357185154 Active Hector Love MD Active VITAMIN C 500 MG ORAL TABLET CHEWABLE ASCORBIC ACID 20758175038 No Longer Active Hector Love MD Active PREDNISONE 20 MG ORAL TABLET 1 tablet daily x 2 days PREDNISONE 76864663059 No Longer Active Manish Catsrejon APRN Active AMOXICILLIN 500 MG ORAL TABLET Take two tablets by mouth every 12 hours for 10 days AMOXICILLIN 43254198333 No Longer Active Иван Mooney MD Active PREDNISONE 20 MG ORAL TABLET 2 po qd x 4 days PREDNISONE 51701081563 No Longer Active Hector Love MD Active HYDROCODONE-ACETAMINOPHEN 5-325 MG ORAL TABLET 1/2 to 1 po q 4 hours prn pain HYDROCODONE-ACETAMINOPHEN 90108280839 No Longer Active Hector Lvoe MD Active AUGMENTIN 875-125 MG ORAL TABLET 1 po BID x 10 days AMOXICILLIN-POT CLAVULANATE 40860293267 No Longer Active Hector Love MD Active FLONASE ALLERGY RELIEF 50 MCG/ACT NASAL SUSPENSION 2 sprays each nostril daily PRN allergies FLUTICASONE PROPIONATE 72049466956 No Longer Active Hector Love MD Active AMOXICILLIN 500 MG ORAL CAPSULE 1 cap by mouth three times a day AMOXICILLIN 37847286214 No Longer Active Manish Castrejon APRN Active KEFLEX 500 MG ORAL CAPSULE 1 tab po tid CEPHALEXIN 51568733713 No Longer Active Jillina Fradebora GARCIA Active AMOXICILLIN 500 MG ORAL TABLET 2 tabs twice a day for 10 days AMOXICILLIN 43361247022 No Longer Active Elijahlldenise Fradebora GARCIA Active ZOFRAN 4 MG ORAL TABLET 1 po q6hr PRN Nausea ONDANSETRON HCL 91372550251 No Longer Active Ramona Diggs LPN Active AMOXICILLIN 500 MG ORAL CAPSULE 2 po BID x 10 days AMOXICILLIN 82714791066 No Longer Active Martha Montejo APRN Active AUGMENTIN 875-125 MG ORAL TABLET 1 tab by mouth twice daily with food AMOXICILLIN-POT CLAVULANATE 14294483150 No Longer Active Hector Love MD Active LEVAQUIN 500 MG ORAL TABLET 1 pill by mouth daily LEVOFLOXACIN 93391578356 No Longer Active Jen Crystal MD PhD Active KETOCONAZOLE 2 % EXTERNAL CREAM apply twice a day to rash KETOCONAZOLE 77481431374 No Longer Active Hector Love MD Active AUGMENTIN 875-125 MG ORAL TABLET 1 tab by mouth twice daily with food AMOXICILLIN-POT CLAVULANATE 57602000987 No Longer Active Иван Mooney MD Active LOTRISONE 1-0.05 % EXTERNAL CREAM Apply twice a day to affected area CLOTRIMAZOLE-BETAMETHASONE 59085469675 No Longer Active Иван Mooney MD Active FEXOFENADINE HCL 180 MG ORAL TABLET 1 Daily FEXOFENADINE HCL 25099050220 No Longer Active Hector Love MD Active PROGRAF 0.5 MG ORAL CAPSULE Take one by mouth daily with 1 mg TACROLIMUS 09437502584 No Longer Active Hector Love MD Active AMOXICILLIN 500 MG ORAL CAPSULE 2 po BID x 10 days AMOXICILLIN 66067674957 No Longer Active Hector Love MD Active RAPAMUNE 1 MG ORAL TABLET 3 tabs in the am SIROLIMUS 10983712104 No Longer Active Hector Love MD Active AMOXICILLIN 500 MG ORAL CAPSULE 2 po BID x 10 days AMOXICILLIN 63488159015 No Longer Active Hector Love MD Active LORTAB 5-500 MG ORAL TABLET 1/2 to 1 tablet by mouth every 4 hours as needed for pain HYDROCODONE-ACETAMINOPHEN 95559981166 No Longer Active Hector Love MD Active FLUTICASONE PROPIONATE 50 MCG/ACT NASAL SUSPENSION INSTILL 2 SPRAYS IN EACH NOSTRIL Q D FLUTICASONE PROPIONATE 84114538133 No Longer Active Hector Love MD Active PROGRAF 1 MG ORAL CAPSULE 1 po bid TACROLIMUS 13490163916 No Longer Active Hector Love MD Active AMOXICILLIN 875 MG ORAL TABLET 1 tab by mouth twice daily AMOXICILLIN 94887131249 No Longer Active Hector Love MD Active AMOXICILLIN 500 MG ORAL CAPSULE 2 po BID x 10 days AMOXICILLIN 83250683341 No Longer Active Hector Love MD Active AUGMENTIN 875-125 MG ORAL TABLET 1 tab by mouth twice daily with food AMOXICILLIN-POT CLAVULANATE 35703656047 No Longer Active Hector Love MD Active AZITHROMYCIN 250 MG ORAL TABLET 2 po qd x 1 day, then 1 po qd x 4 days 06/19 AZITHROMYCIN 18323296749 No Longer Active Hector Love MD Active CETIRIZINE HCL 10 MG ORAL TABLET 1 PO Q D CETIRIZINE HCL 93322407280 No Longer Active [place] Active PROGRAF 1 MG ORAL CAPSULE 1 po bid PROGRAF 1 MG ORAL CAPSULE 224138 TACROLIMUS Inactive FLUTICASONE PROPIONATE 50 MCG/ACT NASAL SUSPENSION INSTILL 2 SPRAYS IN EACH NOSTRIL Q D FLUTICASONE PROPIONATE 50 MCG/ACT NASAL SUSPENSION 9063290 FLUTICASONE PROPIONATE Inactive LORTAB 5-500 MG ORAL TABLET 1/2 to 1 tablet by mouth every 4 hours as needed for pain LORTAB 5-500 MG ORAL TABLET HYDROCODONE- ACETAMINOPHEN Inactive RAPAMUNE 1 MG ORAL TABLET 3 tabs in the am RAPAMUNE 1 MG ORAL TABLET 629098 SIROLIMUS Inactive PROGRAF 0.5 MG ORAL CAPSULE Take one by mouth daily with 1 mg PROGRAF 0.5 MG ORAL CAPSULE 735678 TACROLIMUS Inactive FEXOFENADINE HCL 180 MG ORAL TABLET 1 Daily FEXOFENADINE HCL 180 MG ORAL TABLET 253943 FEXOFENADINE HCL Inactive LOTRISONE 1-0.05 % EXTERNAL CREAM Apply twice a day to affected area LOTRISONE 1-0.05 % EXTERNAL CREAM 751054 CLOTRIMAZOLE- BETAMETHASONE Inactive KETOCONAZOLE 2 % EXTERNAL CREAM apply twice a day to rash KETOCONAZOLE 2 % EXTERNAL CREAM 939529 KETOCONAZOLE Inactive AUGMENTIN 875-125 MG ORAL TABLET 1 tab by mouth twice daily with food AUGMENTIN 875-125 MG ORAL TABLET 661509 AMOXICILLIN-POT CLAVULANATE Inactive ZOFRAN 4 MG ORAL TABLET 1 po q6hr PRN Nausea ZOFRAN 4 MG ORAL TABLET 693169 ONDANSETRON HCL Inactive AMOXICILLIN 500 MG ORAL TABLET 2 tabs twice a day for 10 days AMOXICILLIN 500 MG ORAL TABLET 314369 AMOXICILLIN Inactive FLONASE ALLERGY RELIEF 50 MCG/ACT NASAL SUSPENSION 2 sprays each nostril daily PRN allergies FLONASE ALLERGY RELIEF 50 MCG/ACT NASAL SUSPENSION 3995899 FLUTICASONE PROPIONATE Inactive HYDROCODONE-ACETAMINOPHEN 5-325 MG ORAL TABLET 1/2 to 1 po q 4 hours prn pain HYDROCODONE-ACETAMINOPHEN 5-325 MG ORAL TABLET 327084 HYDROCODONE-ACETAMINOPHEN Inactive PREDNISONE 20 MG ORAL TABLET 1 tablet daily x 2 days PREDNISONE 20 MG ORAL TABLET 225954 PREDNISONE Inactive VITAMIN C 500 MG ORAL TABLET CHEWABLE VITAMIN C 500 MG ORAL TABLET CHEWABLE ASCORBIC ACID Inactive AMOXICILLIN 500 MG ORAL CAPSULE 2 po BID x 10 days AMOXICILLIN 500 MG ORAL CAPSULE 346223 AMOXICILLIN Inactive AMOXICILLIN 875 MG ORAL TABLET 1 tab by mouth twice daily AMOXICILLIN 875 MG ORAL TABLET 140250 AMOXICILLIN Inactive AMOXICILLIN 500 MG ORAL CAPSULE 2 po BID x 10 days AMOXICILLIN 500 MG ORAL CAPSULE 862205 AMOXICILLIN Inactive AMOXICILLIN 500 MG ORAL CAPSULE 2 po BID x 10 days AMOXICILLIN 500 MG ORAL CAPSULE 246153 AMOXICILLIN Inactive AUGMENTIN 875-125 MG ORAL TABLET 1 tab by mouth twice daily with food AUGMENTIN 875-125 MG ORAL TABLET 777332 AMOXICILLIN-POT CLAVULANATE Inactive LEVAQUIN 500 MG ORAL TABLET 1 pill by mouth daily LEVAQUIN 500 MG ORAL TABLET 871972 LEVOFLOXACIN Inactive AMOXICILLIN 500 MG ORAL CAPSULE 2 po BID x 10 days AMOXICILLIN 500 MG ORAL CAPSULE 534212 AMOXICILLIN Inactive AMOXICILLIN 500 MG ORAL CAPSULE 1 cap by mouth three times a day AMOXICILLIN 500 MG ORAL CAPSULE 318615 AMOXICILLIN Inactive AUGMENTIN 875-125 MG ORAL TABLET 1 po BID x 10 days AUGMENTIN 875-125 MG ORAL TABLET 899108 AMOXICILLIN-POT CLAVULANATE Inactive PREDNISONE 20 MG ORAL TABLET 2 po qd x 4 days PREDNISONE 20 MG ORAL TABLET 719198 PREDNISONE Inactive AMOXICILLIN 500 MG ORAL TABLET Take two tablets by mouth every 12 hours for 10 days AMOXICILLIN 500 MG ORAL TABLET 138799 AMOXICILLIN Inactive Advance Directives Directive Description Start Date PERMISSION TO SHARE Immunizations Vaccine Administration Date Value Standard Description Seasonal influenza vaccine, injectable, preservative free, for > 3 years old ( Afluria, FluLaval, Fluzone, Fluvirin, Fluarix, Agriflu(>=18 yo)) Fluzone preservative free (>=3 yrs.) [JSY319] Influenza, seasonal, injectable, preservative free Adacel (Tetanus, reduced Diphtheria, and acellular Pertussis Immunization) Adacel [LCR482] tetanus toxoid, reduced diphtheria toxoid, and acellular [...] Panel - Chemistry sodium, serum 137 mmol/L 971-318 0018/08/14 carbon dioxide, venous blood 29.7 mmol/L 21.0-32.0 potassium, serum 4.3 mmol/L 3.5-5.2 chloride, serum 99 mmol/L 98-107 blood glucose 123 mg/dL 65-110 urea nitrogen, blood 12 mg/dL 7-18 creatinine, serum 0.84 mg/dL 0.60-1.30 alanine aminotransferase (SGPT), serum 48 U/L 12-78 aspartate aminotransferase (SGOT), serum 26 U/L 15-37 calcium, serum 9.4 mg/dL 8.5-10.1 bilirubin, serum, total 1.60 mg/dL 0.00-1.00 cholesterol, serum 141 mg/dL 292-125 8635/08/14 triglyceride, serum, fasting 54 mg/dL 30-200 HDL [...] ... - Chemistry sodium, serum 137 mmol/L 341-154 3832/04/23 carbon dioxide, venous blood 28.4 mmol/L 21.0-32.0 [...] semiquantitative 6.0 5.0-8.5 Lab Report: VITAMIN D, [id number] - Chemistry vitamin D 25-hydroxy, serum 18 ng/mL 30-100 vitamin D 25-hydroxy, serum 44 ng/mL 30-100 Encounters Code Encounter Date Provider Facility CPT-36160 Level 3 Est. Patient 10:49:01 OTTOT Jillina Frazell [facility] CPT-60819 Level 3 Est. Patient 11:35:07 CDT Elijahudaydenise Castrejon [facility] CPT-59550 Level 3 Est. Patient 17:22:36 CDT Tracy Frey [facility] CPT-14860 Level 3 Est. Patient 16:06:03 CDT Manish Chasel [facility] CPT-11943 Level 3 Est. Patient 09:57:24 CDT Manish Chasealejandrina [facility] CPT-02209 Level 3 Est. Patient 16:31:04 CDT Иван Mooney MD [facility] CPT-34888 Level 4 Est. Patient 12:02:18 CDT Hector Love MD [facility] CPT-14866 Level 3 Est. Patient 16:14:45 CDT Hector Love MD [facility] CPT-49863 Level 3 Est. Patient 16:53:35 CDT Иван Mooney MD [facility] CPT-77505 Level 3 Est. Patient 15:57:13 CDT Martha Nikia [facility] CPT-34226 Level 3 Est. 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 Patient 14:50:45 CDT Hector Love MD [facility] CPT-51721 Level 3 Est. Patient 21:17:30 CDT Jen Crystal MD PhD [facility] CPT-44217 Level 3 Est. Patient 09:32:55 CDT Hector Love MD [facility] [place]-79180 Level 3 Est. Patient 15:11:08 DESIZING MACHINE OPERATOR HEAD END Иван Mooney MD [facility] CPT-18824 Level 3 Est. Patient 16:38:53 DESIZING MACHINE OPERATOR HEAD END Hector Love MD [facility] CPT-23439 Level 3 Est. Patient 15:46:05 CDT Hector Love MD [facility] CPT-00186 Level 3 Est. Patient 13:59:39 CDT Hector Love MD [facility] CPT-89346 Level 3 Est. Patient 14:44:46 DESIZING MACHINE OPERATOR HEAD END Hector Love MD [facility] CPT-54747 Level 3 Est. Patient 17:12:27 CDT Hector Love MD [facility] CPT-85713 Level 3 Est. Patient 15:30:32 CDT Hector Love MD [facility] CPT-01339 Level 3 Est. Patient 14:24:52 CDT Иван Mooney MD [facility] CPT-02119 Level 3 Est. Patient 14:08:38 DESIZING MACHINE OPERATOR HEAD END Hector Love MD [facility] Procedures Code Procedure Name Date Entry Date Standard Description CPT-34199 Chest, 2 views 11:04:30 CDT CPT-24547 Venipuncture Draw Fee 16:18:26 CDT CPT-74884 TB Skin Test 09:57:25 CDT CPT-000 Give Appropriate Flu Vaccine 16:22:23 DESIZING MACHINE OPERATOR HEAD END CPT-54105 Free T4 - LAB USE ONLY 11:38:58 CDT CPT-71207 TSH - LAB USE ONLY 11:38:58 CDT CPT-72431 Venipuncture Draw Fee 11:38:58 CDT CPT-87669 Fluzone Quadrivalent Intramuscular Suspension 0.5 ML 16: 12:26 DESIZING MACHINE OPERATOR HEAD END CPT-48698 Immunization Single Admin 16:12:26 DESIZING MACHINE OPERATOR HEAD END CPT-J0561 Bicillin LA 1,200,000 u (PCN G Benzathine) 16:40:23 CDT CPT-34929 Abx/Therapy Injection 16:40:22 CDT CPT-J0561 Bicillin LA 1,200,000 u (PCN G Benzathine) 16:15:35 CDT CPT-17524 Immunization Single Admin 16:11:28 DESIZING MACHINE OPERATOR HEAD END CPT-74594 Fluzone Quadrivalent Intramuscular Suspension 0.5 ML 16: 11:28 DESIZING MACHINE OPERATOR HEAD END CPT-54090 Administration single or combination vaccine inc oral 13 :57:23 CDT CPT-78900 Menactra Intramuscular Injectable 13:57:23 CDT CPT-13623 First Vx Component - Ix admin via ID IM or jet inj without physician counseling 16:42:17 DESIZING MACHINE OPERATOR HEAD END CPT-70963 Fluzone preservative free (>=3 yrs.) 16:42:17 DESIZING MACHINE OPERATOR HEAD END 06/03 CPT-87874 Venipuncture Draw Fee 16:29:01 CDT CPT-73185 Chest 2V Frontal and Lat 16:23:56 CDT CPT-99650 Administration single or combination vaccine inc oral 13 :39:17 DESIZING MACHINE OPERATOR HEAD END CPT-78629 Tdap 13:39:17 DESIZING MACHINE OPERATOR HEAD END
--- OUTSIDE RECORDS SUMMARY | 2017-11-06 01:13 | XMS REPORT | Clinical Summary ---
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 Other malaise and fatigue Body Mass Index 34.0-34.9 Adult Active Manish Castrejon [employer]OTH INSPECTOR Body Mass Index 34.0-34.9, adult HYPERTENSION ICD-401.9 [...] Gastroenteritis, viral, acute ICD-008.8 Inactive Martha Montejo [employer] INSPECT[employer] Bronchitis ICD-490 Inactive Hector Love MD 2014 [...] MG ORAL CAPSULE 2 po BID TACROLIMUS 94399605909 Active Hector Love MD Active CETIRIZINE HCL 10 MG ORAL TABLET 1 po qd PRN Allergies CETIRIZINE HCL 86382707784 Active Hector Love MD Active LISINOPRIL 5 MG ORAL TABLET 1.5 po qd LISINOPRIL 42068396625 Active Hector Love MD Active FLUTICASONE PROPIONATE 50 MCG/ACT NASAL SUSPENSION 2 sprays/nostril qd PRN Congestion/Allergies FLUTICASONE PROPIONATE 77068643139 Active Hector Love MD Active VITAMIN C 500 MG ORAL TABLET CHEWABLE ASCORBIC ACID 93822833059 No Longer Active Hector Love MD Active PREDNISONE 20 MG ORAL TABLET 1 tablet daily x 2 days PREDNISONE 76134144286 No Longer Active Manish Castrejon APRN Active AMOXICILLIN 500 MG ORAL TABLET Take two tablets by mouth every 12 hours for 10 days AMOXICILLIN 94493548304 No Longer Active Иван Mooney MD Active PREDNISONE 20 MG ORAL TABLET 2 po qd x 4 days PREDNISONE 31683110280 No Longer Active Hector Love MD Active HYDROCODONE-ACETAMINOPHEN 5-325 MG ORAL TABLET 1/2 to 1 po q 4 hours prn pain HYDROCODONE-ACETAMINOPHEN 07735460829 No Longer Active Hector Love MD Active AUGMENTIN 875-125 MG ORAL TABLET 1 po BID x 10 days AMOXICILLIN-POT CLAVULANATE 71771046871 No Longer Active Hector Love MD Active FLONASE ALLERGY RELIEF 50 MCG/ACT NASAL SUSPENSION 2 sprays each nostril daily PRN allergies FLUTICASONE PROPIONATE 33305072391 No Longer Active Hector Love MD Active AMOXICILLIN 500 MG ORAL CAPSULE 1 cap by mouth three times a day AMOXICILLIN 97596034707 No Longer Active Manish Castrejon APRN Active KEFLEX 500 MG ORAL CAPSULE 1 tab po tid CEPHALEXIN 22223881161 No Longer Active Jillina Fradebora GARCIA Active AMOXICILLIN 500 MG ORAL TABLET 2 tabs twice a day for 10 days AMOXICILLIN 97649116954 No Longer Active Elijahlldenise Fradebora GARCIA Active ZOFRAN 4 MG ORAL TABLET 1 po q6hr PRN Nausea ONDANSETRON HCL 59807834426 No Longer Active Ramona Diggs LPN Active AMOXICILLIN 500 MG ORAL CAPSULE 2 po BID x 10 days AMOXICILLIN 03662477142 No Longer Active Martha Montejo APRN Active AUGMENTIN 875-125 MG ORAL TABLET 1 tab by mouth twice daily with food AMOXICILLIN-POT CLAVULANATE 93572491048 No Longer Active Hector Love MD Active LEVAQUIN 500 MG ORAL TABLET 1 pill by mouth daily LEVOFLOXACIN 21744584153 No Longer Active Jen Crystal MD PhD Active KETOCONAZOLE 2 % EXTERNAL CREAM apply twice a day to rash KETOCONAZOLE 66136547772 No Longer Active Hector Love MD Active AUGMENTIN 875-125 MG ORAL TABLET 1 tab by mouth twice daily with food AMOXICILLIN-POT CLAVULANATE 76805512005 No Longer Active Иван Mooney MD Active LOTRISONE 1-0.05 % EXTERNAL CREAM Apply twice a day to affected area CLOTRIMAZOLE-BETAMETHASONE 08334005115 No Longer Active Иван Mooney MD Active FEXOFENADINE HCL 180 MG ORAL TABLET 1 Daily FEXOFENADINE HCL 39277333566 No Longer Active Hector Love MD Active PROGRAF 0.5 MG ORAL CAPSULE Take one by mouth daily with 1 mg TACROLIMUS 76750811370 No Longer Active Hector Love MD Active AMOXICILLIN 500 MG ORAL CAPSULE 2 po BID x 10 days AMOXICILLIN 34090615013 No Longer Active Hector Love MD Active RAPAMUNE 1 MG ORAL TABLET 3 tabs in the am SIROLIMUS 85085159479 No Longer Active Hector Love MD Active AMOXICILLIN 500 MG ORAL CAPSULE 2 po BID x 10 days AMOXICILLIN 62641146284 No Longer Active Hector Love MD Active LORTAB 5-500 MG ORAL TABLET 1/2 to 1 tablet by mouth every 4 hours as needed for pain HYDROCODONE-ACETAMINOPHEN 98783309956 No Longer Active Hector Love MD Active FLUTICASONE PROPIONATE 50 MCG/ACT NASAL SUSPENSION INSTILL 2 SPRAYS IN EACH NOSTRIL Q D FLUTICASONE PROPIONATE 89123297135 No Longer Active Hector Love MD Active PROGRAF 1 MG ORAL CAPSULE 1 po bid TACROLIMUS 44970035313 No Longer Active Hector Love MD Active AMOXICILLIN 875 MG ORAL TABLET 1 tab by mouth twice daily AMOXICILLIN 74593469591 No Longer Active Hector Love MD Active AMOXICILLIN 500 MG ORAL CAPSULE 2 po BID x 10 days AMOXICILLIN 39071334349 No Longer Active Hector Love MD Active AUGMENTIN 875-125 MG ORAL TABLET 1 tab by mouth twice daily with food AMOXICILLIN-POT CLAVULANATE 63985904290 No Longer Active Hector Love MD Active AZITHROMYCIN 250 MG ORAL TABLET 2 po qd x 1 day, then 1 po qd x 4 days 06/19 AZITHROMYCIN 42328405637 No Longer Active Hector Love MD Active CETIRIZINE HCL 10 MG ORAL TABLET 1 PO Q D CETIRIZINE HCL 25574350199 No Longer Active [place] Active PROGRAF 1 MG ORAL CAPSULE 1 po bid PROGRAF 1 MG ORAL CAPSULE 432061 TACROLIMUS Inactive FLUTICASONE PROPIONATE 50 MCG/ACT NASAL SUSPENSION INSTILL 2 SPRAYS IN EACH NOSTRIL Q D FLUTICASONE PROPIONATE 50 MCG/ACT NASAL SUSPENSION 8748369 FLUTICASONE PROPIONATE Inactive LORTAB 5-500 MG ORAL TABLET 1/2 to 1 tablet by mouth every 4 hours as needed for pain LORTAB 5-500 MG ORAL TABLET HYDROCODONE- ACETAMINOPHEN Inactive RAPAMUNE 1 MG ORAL TABLET 3 tabs in the am RAPAMUNE 1 MG ORAL TABLET 423850 SIROLIMUS Inactive PROGRAF 0.5 MG ORAL CAPSULE Take one by mouth daily with 1 mg PROGRAF 0.5 MG ORAL CAPSULE 009815 TACROLIMUS Inactive FEXOFENADINE HCL 180 MG ORAL TABLET 1 Daily FEXOFENADINE HCL 180 MG ORAL TABLET 386728 FEXOFENADINE HCL Inactive LOTRISONE 1-0.05 % EXTERNAL CREAM Apply twice a day to affected area LOTRISONE 1-0.05 % EXTERNAL CREAM 557007 CLOTRIMAZOLE- BETAMETHASONE Inactive KETOCONAZOLE 2 % EXTERNAL CREAM apply twice a day to rash KETOCONAZOLE 2 % EXTERNAL CREAM 258206 KETOCONAZOLE Inactive AUGMENTIN 875-125 MG ORAL TABLET 1 tab by mouth twice daily with food AUGMENTIN 875-125 MG ORAL TABLET 080461 AMOXICILLIN-POT CLAVULANATE Inactive ZOFRAN 4 MG ORAL TABLET 1 po q6hr PRN Nausea ZOFRAN 4 MG ORAL TABLET 304617 ONDANSETRON HCL Inactive AMOXICILLIN 500 MG ORAL TABLET 2 tabs twice a day for 10 days AMOXICILLIN 500 MG ORAL TABLET 348424 AMOXICILLIN Inactive FLONASE ALLERGY RELIEF 50 MCG/ACT NASAL SUSPENSION 2 sprays each nostril daily PRN allergies FLONASE ALLERGY RELIEF 50 MCG/ACT NASAL SUSPENSION 8709713 FLUTICASONE PROPIONATE Inactive HYDROCODONE-ACETAMINOPHEN 5-325 MG ORAL TABLET 1/2 to 1 po q 4 hours prn pain HYDROCODONE-ACETAMINOPHEN 5-325 MG ORAL TABLET 740732 HYDROCODONE-ACETAMINOPHEN Inactive PREDNISONE 20 MG ORAL TABLET 1 tablet daily x 2 days PREDNISONE 20 MG ORAL TABLET 646301 PREDNISONE Inactive VITAMIN C 500 MG ORAL TABLET CHEWABLE VITAMIN C 500 MG ORAL TABLET CHEWABLE ASCORBIC ACID Inactive AMOXICILLIN 500 MG ORAL CAPSULE 2 po BID x 10 days AMOXICILLIN 500 MG ORAL CAPSULE 619262 AMOXICILLIN Inactive AMOXICILLIN 875 MG ORAL TABLET 1 tab by mouth twice daily AMOXICILLIN 875 MG ORAL TABLET 825331 AMOXICILLIN Inactive AMOXICILLIN 500 MG ORAL CAPSULE 2 po BID x 10 days AMOXICILLIN 500 MG ORAL CAPSULE 181315 AMOXICILLIN Inactive AMOXICILLIN 500 MG ORAL CAPSULE 2 po BID x 10 days AMOXICILLIN 500 MG ORAL CAPSULE 083298 AMOXICILLIN Inactive AUGMENTIN 875-125 MG ORAL TABLET 1 tab by mouth twice daily with food AUGMENTIN 875-125 MG ORAL TABLET 284047 AMOXICILLIN-POT CLAVULANATE Inactive LEVAQUIN 500 MG ORAL TABLET 1 pill by mouth daily LEVAQUIN 500 MG ORAL TABLET 644430 LEVOFLOXACIN Inactive AMOXICILLIN 500 MG ORAL CAPSULE 2 po BID x 10 days AMOXICILLIN 500 MG ORAL CAPSULE 563968 AMOXICILLIN Inactive AMOXICILLIN 500 MG ORAL CAPSULE 1 cap by mouth three times a day AMOXICILLIN 500 MG ORAL CAPSULE 438492 AMOXICILLIN Inactive AUGMENTIN 875-125 MG ORAL TABLET 1 po BID x 10 days AUGMENTIN 875-125 MG ORAL TABLET 416978 AMOXICILLIN-POT CLAVULANATE Inactive PREDNISONE 20 MG ORAL TABLET 2 po qd x 4 days PREDNISONE 20 MG ORAL TABLET 107586 PREDNISONE Inactive AMOXICILLIN 500 MG ORAL TABLET Take two tablets by mouth every 12 hours for 10 days AMOXICILLIN 500 MG ORAL TABLET 680451 AMOXICILLIN Inactive Advance Directives Directive Description Start Date PERMISSION TO SHARE Immunizations Vaccine Administration Date Value Standard Description Seasonal influenza vaccine, injectable, preservative free, for > 3 years old ( Afluria, FluLaval, Fluzone, Fluvirin, Fluarix, Agriflu(>=18 yo)) Fluzone preservative free (>=3 yrs.) [HJQ181] Influenza, seasonal, injectable, preservative free Adacel (Tetanus, reduced Diphtheria, and acellular Pertussis Immunization) Adacel [DSA554] tetanus toxoid, reduced diphtheria toxoid, and acellular [...] Panel - Chemistry sodium, serum 137 mmol/L 164-387 4877/08/14 carbon dioxide, venous blood 29.7 mmol/L 21.0-32.0 potassium, serum 4.3 mmol/L 3.5-5.2 chloride, serum 99 mmol/L 98-107 blood glucose 123 mg/dL 65-110 urea nitrogen, blood 12 mg/dL 7-18 creatinine, serum 0.84 mg/dL 0.60-1.30 alanine aminotransferase (SGPT), serum 48 U/L 12-78 aspartate aminotransferase (SGOT), serum 26 U/L 15-37 calcium, serum 9.4 mg/dL 8.5-10.1 bilirubin, serum, total 1.60 mg/dL 0.00-1.00 cholesterol, serum 141 mg/dL 698-664 1840/08/14 triglyceride, serum, fasting 54 mg/dL 30-200 HDL [...] semiquantitative 6.0 5.0-8.5 Lab Report: VITAMIN D, [id number]/77074 - Chemistry vitamin D 25-hydroxy, serum 18 ng/mL 30-100 Encounters Code Encounter Date Provider Facility CPT-33841 Level 3 Est. Patient 10:49:01 CDT Manish Castrejon [facility] [place] [facility] [place] Level 3 Est. Patient 11:35:07 CDT Manish Castrejon [facility] [place] [facility] Level 3 Est. [facility]22[facility] Patient 16:06:03 CDT Manish Castrejon [facility] CPT-96992 Level 3 Est. Patient 09:57:24 CDT Manish Castrejon [facility] CPT-66438 Level 3 Est. Patient 16:31:04 CDT Иван Mooney MD [facility] CPT-43723 Level 4 Est. Patient 12:02:18 CDT Hector Love MD [facility] CPT-94873 Level 3 Est. Patient 16:14:45 CDT Hector Love MD [facility] CPT-99954 Level 3 Est. Patient 16:53:35 CDT Иван Mooney MD [facility] CPT-82900 Level 3 Est. Patient 15:57:13 CDT Martha Montejo [facility] [place] CPT-60786 Level 3 Est. Patient 14:30:47 HARDWARE ENGINEER Hector Love MD [facility] CPT-15296 Level 3 Est. Patient 14:50:45 CDT Hector Love MD [facility] CPT-45941 Level 3 Est. Patient 21:17:30 CDT Jen Crystal MD PhD [facility] CPT-91386 Level 3 Est. Patient 09:32:55 CDT Hector Love MD [facility] CPT-61659 Level 3 Est. Patient 15:11:08 HARDWARE ENGINEER Иван Mooney MD [facility] CPT-23560 Level 3 Est. Patient 16:38:53 HARDWARE ENGINEER Hector Love MD [facility] CPT-68457 Level 3 Est. Patient 15:46:05 CDT Hector Love MD [facility] CPT-58511 Level 3 Est. Patient 13:59:39 CDT Hector Love MD [facility] CPT-73108 Level 3 Est. Patient 14:44:46 HARDWARE ENGINEER Hector Love MD [facility] CPT-12887 Level 3 Est. Patient 17:12:27 CDT Hector Love MD [facility] CPT-83411 Level 3 Est. Patient 15:30:32 CDT Hector Love MD [facility] CPT-06478 Level 3 Est. Patient 14:24:52 CDT Иван Mooney MD [facility] CPT-09670 Level 3 Est. Patient 14:08:38 HARDWARE ENGINEER Hector Love MD [facility] Procedures Code Procedure Name Date Entry Date Standard Description CPT-92537 Chest, 2 views 11:04:30 CDT CPT-82428 Venipuncture Draw Fee 16:18:26 CDT CPT-42719 TB Skin Test 09:57:25 CDT CPT-000 Give Appropriate Flu Vaccine 16:22:23 HARDWARE ENGINEER CPT-28306 Free T4 - LAB USE ONLY 11:38:58 CDT CPT-03303 TSH - LAB USE ONLY 11:38:58 CDT CPT-45371 Venipuncture Draw Fee 11:38:58 CDT CPT-42436 Fluzone Quadrivalent Intramuscular Suspension 0.5 ML 16: 12:26 HARDWARE ENGINEER CPT-38149 Immunization Single Admin 16:12:26 HARDWARE ENGINEER CPT-J0561 Bicillin LA 1,200,000 u (PCN G Benzathine) 16:40:23 CDT CPT-25857 Abx/Therapy Injection 16:40:22 CDT CPT-J0561 Bicillin LA 1,200,000 u (PCN G Benzathine) 16:15:35 CDT CPT-31887 Immunization Single Admin 16:11:28 HARDWARE ENGINEER CPT-71059 Fluzone Quadrivalent Intramuscular Suspension 0.5 ML 16: 11:28 HARDWARE ENGINEER CPT-52381 Administration single or combination vaccine inc oral 13 :57:23 CDT CPT-76687 Menactra Intramuscular Injectable 13:57:23 CDT CPT-38205 First Vx Component - Ix admin via ID IM or jet inj without physician counseling 16:42:17 HARDWARE ENGINEER CPT-64273 Fluzone preservative free (>=3 yrs.) 16:42:17 HARDWARE ENGINEER 06/03 CPT-60057 Venipuncture Draw Fee 16:29:01 CDT CPT-59329 Chest 2V Frontal and Lat 16:23:56 CDT CPT-13625 Administration single or combination vaccine inc oral 13 :39:17 HARDWARE ENGINEER CPT-17881 Tdap 13:39:17 HARDWARE ENGINEER
--- OUTSIDE RECORDS SUMMARY | 2017-11-06 01:14 | XMS REPORT ---
Author Author [facility] Medical Staff Organization [facility] Address [address], [place] [address] Phone [phone] Care Team Providers Care Registered Nurse Practitioner Name Role Phone HECTOR FRAIRE MD PP [phone] Summary purpose TRANSITION OF CARE AUTO GENERATION [...] Ibuprofen Drug Allergy Ibuprofen Confirmed or Verified Benadryl Drug Allergy Benadryl Confirmed or Verified Benadryl Drug Allergy diphenhydramine Confirmed or Verified Tylenol Drug Allergy Tylenol Confirmed or Verified Tylenol Drug Allergy acetaminophen Confirmed or Verified Immunizations No immunizations recorded for this patient visit Relevant diagnostic tests and/or laboratory data RESULTS Chemistry [id number]:20:00 Result Normal Range Units Sodium 139 134-145 mEq/l Potassium 3.6 3.5-5.1 mEq/l Chloride 101 98-107 mEq/l CO2 H 28.8 22-28 mEq/l Glucose H 115 70-105 mg/dl BUN 15 7-18 mg/dl Creatinine 0.84 0.6-1.3 mg/dl Calcium 8.6 8.4-10.2 mg/dl TP - Total Protein 7.6 6.0-8.3 g/dl Albumin 4.3 3.5-5 g/dl Bilirubin - Total H 1.1 0.1-1.0 mg/dl AST 23 10-42 IU/L ALT 49 12-65 IU/L ALP 64 39-107 IU/L Osmolality L 279.3 280-300 mOsm/L Albumin/Globulin Ratio 1.3 0-8 Anion GAP 9.2 8-16 BUN/Creatinine Ratio 17.9 10-20 Estimated GFR 116 >=60 mL/min/1.7 Hematology [id number]:20:00 Result Normal Range Units WBC H 12.3 4.8-10.8 103/uL RBC 4.9 4.7-6.1 106/uL HGB 14.6 13.0-18.0 g/dl HCT L 41.6 41.9-52.0 % MCV 84.7 80-94 FL MCH 29.7 27-31 pg MCHC 35.1 33-37 g/dl RDW 12.6 11.5-15.5 % PLT 230 130-400 103/uL MPV H 10.5 7.3-10.4 FL Neutro % 50.0 40-70 % Lymph % 34.9 20-40 % [place] % 8.1 0-10.0 % Eos % 6.3 0-7.0 % Baso % 0.5 0-2 % Neutro # 6.2 1.5-7.5 103/uL Lymph # H 4.3 0.9-4.0 103/uL [place] # H 1.0 0-0.8 103/uL Eos # H 0.8 0-0.6 103/uL Baso # 0.1 0-0.1 103/uL Reference Lab ([facility]) [id number]:38:00 Result Normal Range Units Influenza A & B, Rapid Negative Negative Radiology Results [id number]:00 Chest X-Ray - 2 View PACs Image DATE OF EXAM: Mar 12 2015 RAD 0300-CHEST XRAY 2 VIEW : RADIOLOGY REPORT DATE OF SERVICE: 03/12/15 HISTORY: Pneumonia CHEST X-RAY 2 VIEWS 2325 HOURS The heart and mediastinum show no active pathology. Pulmonary vences do not show an active infiltrate. The costophrenic angles are clear. Bony structures appear normal. There is evidence of prior median sternotomy. Compared to the prior study dated 03/06/2012 similar appearance is demonstrated. IMPRESSION: 1. Normal study. Kevin Levy DO /ky03/13/2015 07:39:00 / 03/13/2015 09:05:29 cc:Dr. Hector Fraire This document has been electronically Signed by: On: DATE OF EXAM: Mar 12 2015 RAD 0300-CHEST XRAY 2 VIEW : RADIOLOGY REPORT DATE OF SERVICE: 03/12/15 HISTORY: Pneumonia CHEST X-RAY 2 VIEWS 2325 HOURS The heart and mediastinum show no active pathology. Pulmonary vences do not show an active infiltrate. The costophrenic angles are clear. Bony structures appear normal. There is evidence of prior median sternotomy. Compared to the prior study dated 03/06/2012 similar appearance is demonstrated. IMPRESSION: 1. Normal study. Kevin Levy DO /ky03/13/2015 07:39:00 / 03/13/2015 09:05:29 cc:Dr. Hector Fraire This document has been electronically Signed by: KEVIN LEVY DO On: Mar 13 2015 11:07A Result Amended on 2015-03-13 at 11:07:10. Previous status was [facility]. [id number]:20:00 Result Normal Range Units MPV H 10.5 7.3-10.4 FL History of procedures No procedures recorded for this patient visit. Functional status Functional Status Finding Observation Time Abdomen Appearance round :57 Abdomen non-tender :57 Urination normal :57 Quality sym/unlabored :57 Cough productive :57 Breath Sounds RUL wheezes :18 Breath Sounds RML wheezes :18 Breath Sounds RLL clear :18 Breath Sounds PAULA clear :18 Breath Sounds LLL clear :18 Airway natural :57 Oxygen no :57 Oxygen Flow Rate ra :13 Temp >100.4 no :57 Temp <96.8 no :57 Chills with rigors no :57 HR > 90bpm no :57 Respirations > 20 no :57 Systolic <90 no :57 headache stiff neck no :57 Nursing Note Pt gone to xray. :29 Vital signs Type Value Date Respiration Rate 20breaths per minute :18 Pulse 97beats per minute :18 Oxygen Saturation 96% :13 BP Systolic 120mmHg :13 BP Diastolic 73mmHg :13 Temperature 98.7F :13 Social history Type Value Smoking Status NEVER SMOKER Treatment Plan No treatment plan text is available for this visit. Hospital discharge instructions No discharge instruction text is available for this visit.
--- OUTSIDE RECORDS SUMMARY | 2017-11-06 01:14 | XMS REPORT | Clinical Summary ---
Author Author Admin, QIE Organization [facility] Address Unknown Phone Unavailable Allergies, Adverse Reactions, [...] care facility Fatigue 780.79 Active Manish Castrejon MOLD STAMPER Other malaise and fatigue Body Mass Index 34.0-34.9 Adult Active Manish Castrejon MOLD STAMPER Body Mass Index 34.0-34.9, adult HYPERTENSION ICD-401.9 Inactive Hector Love MD BRONCHITIS, ACUTE ICD-466.0 Inactive Hector Love MD KNEE SPRAIN, LEFT ICD-844.9 Inactive Hector Love MD U R I ICD-465.9 Inactive Hector Love MD FH DIABETES ICD-V18.0 Inactive Hector Love MD COSTOCHRONDRITIS ICD-733.6 Inactive [...] Gastroenteritis, viral, acute ICD-008.8 Inactive Martha Montejo MOLD STAMPER COUGH ICD-786.2 Inactive Hector Love MD Pharyngitis ICD-462 Inactive [...] at work ICD-V62.1 Inactive Hector Love MD SINUSITIS, ACUTE ICD-461.9 Inactive Hector Love MD Bronchitis ICD-490 Inactive Hector Love MD 2014 Medication List Medication Instructions Start Date Stop Date Generic Name NDC Status Provider Patient Instruction PROGRAF 1 MG ORAL CAPSULE 2 po BID TACROLIMUS [id number] Active Hector Love MD Active CETIRIZINE HCL 10 MG ORAL TABLET 1 po qd PRN Allergies CETIRIZINE HCL 16837884861 Active Hector Love MD Active LISINOPRIL 5 MG ORAL TABLET 1.5 po qd LISINOPRIL 61746786914 Vivek Love MD Active FLUTICASONE PROPIONATE 50 MCG/ACT NASAL SUSPENSION 2 sprays/nostril qd PRN Congestion/Allergies FLUTICASONE PROPIONATE 68950279670 Active Hector Love MD Active VITAMIN C 500 MG ORAL TABLET CHEWABLE ASCORBIC ACID 25153537600 No Longer Active Hector Love MD Active PREDNISONE 20 MG ORAL TABLET 1 tablet daily x 2 days PREDNISONE 86616898431 No Longer Active Manish Castrejon APRN Active AMOXICILLIN 500 MG ORAL TABLET Take two tablets by mouth every 12 hours for 10 days AMOXICILLIN 73713426551 No Longer Active Иван Mooney MD Active PREDNISONE 20 MG ORAL TABLET 2 po qd x 4 days PREDNISONE 49859568048 No Longer Active Hector Love MD Active HYDROCODONE-ACETAMINOPHEN 5-325 MG ORAL TABLET 1/2 to 1 po q 4 hours prn pain HYDROCODONE-ACETAMINOPHEN 64335552799 No Longer Active Hector Love MD Active AUGMENTIN 875-125 MG ORAL TABLET 1 po BID x 10 days AMOXICILLIN-POT CLAVULANATE 12285430676 No Longer Active Hector Love MD Active FLONASE ALLERGY RELIEF 50 MCG/ACT NASAL SUSPENSION 2 sprays each nostril daily PRN allergies FLUTICASONE PROPIONATE 90314355849 No Longer Active Hector Love MD Active AMOXICILLIN 500 MG ORAL CAPSULE 1 cap by mouth three times a day AMOXICILLIN 90827923312 No Longer Active Manish Castrejon APRN Active KEFLEX 500 MG ORAL CAPSULE 1 tab po tid CEPHALEXIN 98219486656 No Longer Active Jillina Fradebora GARCIA Active AMOXICILLIN 500 MG ORAL TABLET 2 tabs twice a day for 10 days AMOXICILLIN 84738558892 No Longer Active Jilldenise Fradebora GARCIA Active ZOFRAN 4 MG ORAL TABLET 1 po q6hr PRN Nausea ONDANSETRON HCL 31574283076 No Longer Active Ramona Diggs LPN Active AMOXICILLIN 500 MG ORAL CAPSULE 2 po BID x 10 days AMOXICILLIN 18158107162 No Longer Active Martha Montejo APRN Active AUGMENTIN 875-125 MG ORAL TABLET 1 tab by mouth twice daily with food AMOXICILLIN-POT CLAVULANATE 06563043669 No Longer Active Hector Love MD Active LEVAQUIN 500 MG ORAL TABLET 1 pill by mouth daily LEVOFLOXACIN 02048976117 No Longer Active Jen Crystal MD PhD Active KETOCONAZOLE 2 % EXTERNAL CREAM apply twice a day to rash KETOCONAZOLE 68363919752 No Longer Active Hector Love MD Active AUGMENTIN 875-125 MG ORAL TABLET 1 tab by mouth twice daily with food AMOXICILLIN-POT CLAVULANATE 32502762099 No Longer Active Иван Mooney MD Active LOTRISONE 1-0.05 % EXTERNAL CREAM Apply twice a day to affected area CLOTRIMAZOLE-BETAMETHASONE 89311701218 No Longer Active Иван Mooney MD Active FEXOFENADINE HCL 180 MG ORAL TABLET 1 Daily FEXOFENADINE HCL 00935706890 No Longer Active Hector Love MD Active PROGRAF 0.5 MG ORAL CAPSULE Take one by mouth daily with 1 mg TACROLIMUS 51953223922 No Longer Active Hector Love MD Active AMOXICILLIN 500 MG ORAL CAPSULE 2 po BID x 10 days AMOXICILLIN 95063915501 No Longer Active Hector Love MD Active RAPAMUNE 1 MG ORAL TABLET 3 tabs in the am SIROLIMUS 88918366940 No Longer Active Hector Love MD Active AMOXICILLIN 500 MG ORAL CAPSULE 2 po BID x 10 days AMOXICILLIN 00313809648 No Longer Active Hector Love MD Active LORTAB 5-500 MG ORAL TABLET 1/2 to 1 tablet by mouth every 4 hours as needed for pain HYDROCODONE-ACETAMINOPHEN 75773515187 No Longer Active Hector Love MD Active FLUTICASONE PROPIONATE 50 MCG/ACT NASAL SUSPENSION INSTILL 2 SPRAYS IN EACH NOSTRIL Q D FLUTICASONE PROPIONATE 17485404847 No Longer Active Hector Love MD Active PROGRAF 1 MG ORAL CAPSULE 1 po bid TACROLIMUS 88165222750 No Longer Active Hector Love MD Active AMOXICILLIN 875 MG ORAL TABLET 1 tab by mouth twice daily AMOXICILLIN 48440244535 No Longer Active Hector Love MD Active AMOXICILLIN 500 MG ORAL CAPSULE 2 po BID x 10 days AMOXICILLIN 34217355198 No Longer Active Hector Love MD Active AUGMENTIN 875-125 MG ORAL TABLET 1 tab by mouth twice daily with food AMOXICILLIN-POT CLAVULANATE 92238008235 No Longer Active Hector Love MD Active AZITHROMYCIN 250 MG ORAL TABLET 2 po qd x 1 day, then 1 po qd x 4 days 06/19 AZITHROMYCIN 46193298928 No Longer Active Hector Love MD Active CETIRIZINE HCL 10 MG ORAL TABLET 1 PO Q D CETIRIZINE HCL 30781609956 No Longer Active [place]o Active PROGRAF 1 MG ORAL CAPSULE 1 po bid PROGRAF 1 MG ORAL CAPSULE 490179 TACROLIMUS Inactive FLUTICASONE PROPIONATE 50 MCG/ACT NASAL SUSPENSION INSTILL 2 SPRAYS IN EACH NOSTRIL Q D FLUTICASONE PROPIONATE 50 MCG/ACT NASAL SUSPENSION 0799958 FLUTICASONE PROPIONATE Inactive LORTAB 5-500 MG ORAL TABLET 1/2 to 1 tablet by mouth every 4 hours as needed for pain LORTAB 5-500 MG ORAL TABLET HYDROCODONE- ACETAMINOPHEN Inactive RAPAMUNE 1 MG ORAL TABLET 3 tabs in the am RAPAMUNE 1 MG ORAL TABLET 558515 SIROLIMUS Inactive PROGRAF 0.5 MG ORAL CAPSULE Take one by mouth daily with 1 mg PROGRAF 0.5 MG ORAL CAPSULE 797808 TACROLIMUS Inactive FEXOFENADINE HCL 180 MG ORAL TABLET 1 Daily FEXOFENADINE HCL 180 MG ORAL TABLET 321975 FEXOFENADINE HCL Inactive LOTRISONE 1-0.05 % EXTERNAL CREAM Apply twice a day to affected area LOTRISONE 1-0.05 % EXTERNAL CREAM 304468 CLOTRIMAZOLE- BETAMETHASONE Inactive KETOCONAZOLE 2 % EXTERNAL CREAM apply twice a day to rash KETOCONAZOLE 2 % EXTERNAL CREAM 211920 KETOCONAZOLE Inactive AUGMENTIN 875-125 MG ORAL TABLET 1 tab by mouth twice daily with food AUGMENTIN 875-125 MG ORAL TABLET 743021 AMOXICILLIN-POT CLAVULANATE Inactive ZOFRAN 4 MG ORAL TABLET 1 po q6hr PRN Nausea ZOFRAN 4 MG ORAL TABLET 983068 ONDANSETRON HCL Inactive AMOXICILLIN 500 MG ORAL TABLET 2 tabs twice a day for 10 days AMOXICILLIN 500 MG ORAL TABLET 557507 AMOXICILLIN Inactive FLONASE ALLERGY RELIEF 50 MCG/ACT NASAL SUSPENSION 2 sprays each nostril daily PRN allergies FLONASE ALLERGY RELIEF 50 MCG/ACT NASAL SUSPENSION 4182782 FLUTICASONE PROPIONATE Inactive HYDROCODONE-ACETAMINOPHEN 5-325 MG ORAL TABLET 1/2 to 1 po q 4 hours prn pain HYDROCODONE-ACETAMINOPHEN 5-325 MG ORAL TABLET 332874 HYDROCODONE-ACETAMINOPHEN Inactive PREDNISONE 20 MG ORAL TABLET 1 tablet daily x 2 days PREDNISONE 20 MG ORAL TABLET 145994 PREDNISONE Inactive VITAMIN C 500 MG ORAL TABLET CHEWABLE VITAMIN C 500 MG ORAL TABLET CHEWABLE ASCORBIC ACID Inactive AMOXICILLIN 500 MG ORAL CAPSULE 2 po BID x 10 days AMOXICILLIN 500 MG ORAL CAPSULE 690867 AMOXICILLIN Inactive AMOXICILLIN 875 MG ORAL TABLET 1 tab by mouth twice daily AMOXICILLIN 875 MG ORAL TABLET 635336 AMOXICILLIN Inactive AMOXICILLIN 500 MG ORAL CAPSULE 2 po BID x 10 days AMOXICILLIN 500 MG ORAL CAPSULE 026389 AMOXICILLIN Inactive AMOXICILLIN 500 MG ORAL CAPSULE 2 po BID x 10 days AMOXICILLIN 500 MG ORAL CAPSULE 797718 AMOXICILLIN Inactive AUGMENTIN 875-125 MG ORAL TABLET 1 tab by mouth twice daily with food AUGMENTIN 875-125 MG ORAL TABLET 658461 AMOXICILLIN-POT CLAVULANATE Inactive LEVAQUIN 500 MG ORAL TABLET 1 pill by mouth daily LEVAQUIN 500 MG ORAL TABLET 252189 LEVOFLOXACIN Inactive AMOXICILLIN 500 MG ORAL CAPSULE 2 po BID x 10 days AMOXICILLIN 500 MG ORAL CAPSULE 098187 AMOXICILLIN Inactive AMOXICILLIN 500 MG ORAL CAPSULE 1 cap by mouth three times a day AMOXICILLIN 500 MG ORAL CAPSULE 206195 AMOXICILLIN Inactive AUGMENTIN 875-125 MG ORAL TABLET 1 po BID x 10 days AUGMENTIN 875-125 MG ORAL TABLET 999943 AMOXICILLIN-POT CLAVULANATE Inactive PREDNISONE 20 MG ORAL TABLET 2 po qd x 4 days PREDNISONE 20 MG ORAL TABLET 796943 PREDNISONE Inactive AMOXICILLIN 500 MG ORAL TABLET Take two tablets by mouth every 12 hours for 10 days AMOXICILLIN 500 MG ORAL TABLET 836002 AMOXICILLIN Inactive Advance Directives Directive Description Start Date PERMISSION TO SHARE Immunizations Vaccine Administration Date Value Standard Description Seasonal influenza vaccine, injectable, preservative free, for > 3 years old ( Afluria, FluLaval, Fluzone, Fluvirin, Fluarix, Agriflu(>=18 yo)) Fluzone preservative free (>=3 yrs.) [[id number]] Influenza, seasonal, injectable, preservative free Adacel (Tetanus, reduced Diphtheria, and acellular Pertussis Immunization) Adacel [[id number]] tetanus toxoid, reduced diphtheria toxoid, and acellular [...] Panel - Chemistry sodium, serum 137 mmol/L [phone]/08/14 carbon dioxide, venous blood 29.7 mmol/L 21.0-32.0 potassium, serum 4.3 mmol/L 3.5-5.2 chloride, serum 99 mmol/L 98-107 blood glucose 123 mg/dL 65-110 urea nitrogen, blood 12 mg/dL 7-18 creatinine, serum 0.84 mg/dL 0.60-1.30 triglyceride, serum, fasting 54 mg/dL 30-200 HDL cholesterol, serum 50 mg/dL 32-60 LDL cholesterol, serum 80 mg/dL 0-130 cholesterol, serum 141 mg/dL [phone]/08/14 bilirubin, serum, total 1.60 mg/dL 0.00-1.00 calcium, serum 9.4 mg/dL 8.5-10.1 aspartate aminotransferase (SGOT), serum 26 U/L 15-37 alanine aminotransferase (SGPT), serum 48 U/L 12-78 Lab Report: CBC W/DIFF, Comp. Metabolic Panel, [...] ... - Chemistry sodium, serum 137 mmol/L 509-559 9519/04/23 carbon dioxide, venous blood 28.4 mmol/L 21.0-32.0 [...] Lab Report: UADIP W/MICRO, AUTO - Chemistry RBC, urine, dipstick Trace-intact Negative protein, total urine random Trace mg/dL Negative Lab Report: UADIP W/MICRO, AUTO - Urinalysis glucose, urine, semiquantitative Negative Negative ketones, urine, by test strip Negative Negative bilirubin, urine Negative Negative urobilinogen, urine, semiquantitative (dipstick) 0.2 E.U./dL Normal leukocyte esterase, urine, by dipstick Negative Negative nitrite, urine, semiquantitative Negative Negative pH, urine, semiquantitative 6.0 5.0-8.5 specific gravity, urine 1.025 1.000-1.030 appearance, urine Clear Clear urine color Yellow Colorless;Lightyellow;Straw;Yellow Lab Report: VITAMIN D, 25-HYDROXY/13639 - Chemistry vitamin D 25-hydroxy, serum 18 ng/mL 30-100 vitamin D 25-hydroxy, serum 44 ng/mL 30-100 Encounters Code Encounter Date Provider Facility CPT-50312 Level 3 Est. Patient 10:49:01 CDT Manish Castrejon [facility] CPT-87570 Level 3 Est. Patient 11:35:07 CDT Elijahzeyad Chasel [facility] CPT-24561 Level 3 Est. Patient 17:22:36 CDT Tracy Frey [facility] CPT-85798 Level 3 Est. Patient 16:06:03 CDT Elijahudaydenise Uriosteguigretal [facility] CPT-86818 Level 3 Est. Patient 09:57:24 CDT Elijahzeyad Moodygretal [facility] CPT-88951 Level 3 Est. Patient 16:31:04 CDT Иван Mooney MD [facility] CPT-51976 Level 4 Est. Patient 12:02:18 CDT Hector Love MD [facility] CPT-89271 Level 3 Est. Patient 16:14:45 CDT Hector Love MD [facility] CPT-53033 Level 3 Est. Patient 16:53:35 CDT Иван Mooney MD [facility] CPT-39156 Level 3 Est. Patient 15:57:13 CDT Martha Nikia [facility] CPT-55606 Level 3 Est. Patient 14:30:47 CARDIOLOGY CONSULTANT Hector Love MD [facility] CPT-80097 Level 3 Est. Patient 14:50:45 CDT Hector Love MD [facility] CPT-62861 Level 3 Est. Patient 21:17:30 CDT Jen Crystal MD, PhD [facility] CPT-18678 Level 3 Est. Patient 09:32:55 CDT Hector Love MD [facility]-23498 Level 3 Est. Patient 15:11:08 CARDIOLOGY CONSULTANT Иван Mooney MD [facility] CPT-65846 Level 3 Est. Patient 16:38:53 CARDIOLOGY CONSULTANT Hector Love MD [facility] CPT-78248 Level 3 Est. Patient 15:46:05 CDT Hector Love MD [facility] CPT-64719 Level 3 Est. Patient 13:59:39 CDT Hector Love MD [facility] CPT-65233 Level 3 Est. Patient 14:44:46 CARDIOLOGY CONSULTANT Hector Love MD [facility] CPT-09538 Level 3 Est. Patient 17:12:27 CDT Hector Love MD [facility] CPT-44334 Level 3 Est. Patient 15:30:32 CDT Hector Love MD [facility] CPT-94425 Level 3 Est. Patient 14:24:52 CDT Иван Mooney MD [facility] CPT-61880 Level 3 Est. Patient 14:08:38 CARDIOLOGY CONSULTANT Hector Love MD [facility] Procedures Code Procedure Name Date Entry Date Standard Description CPT-30456 Chest, 2 views 11:04:30 CDT CPT-03578 Venipuncture Draw Fee 16:18:26 CDT CPT-31340 TB Skin Test 09:57:25 CDT CPT-000 Give Appropriate Flu Vaccine 16:22:23 CARDIOLOGY CONSULTANT CPT-65228 Free T4 - LAB USE ONLY 11:38:58 CDT CPT-38735 TSH - LAB USE ONLY 11:38:58 CDT CPT-53102 Venipuncture Draw Fee 11:38:58 CDT CPT-00626 Fluzone Quadrivalent Intramuscular Suspension 0.5 ML 16: 12:26 CARDIOLOGY CONSULTANT CPT-30126 Immunization Single Admin 16:12:26 CARDIOLOGY CONSULTANT CPT-J0561 Bicillin LA 1,200,000 u (PCN G Benzathine) 16:40:23 CDT CPT-98109 Abx/Therapy Injection 16:40:22 CDT CPT-J0561 Bicillin LA 1,200,000 u (PCN G Benzathine) 16:15:35 CDT CPT-20957 Immunization Single Admin 16:11:28 CARDIOLOGY CONSULTANT CPT-75196 Fluzone Quadrivalent Intramuscular Suspension 0.5 ML 16: 11:28 CARDIOLOGY CONSULTANT CPT-29790 Administration single or combination vaccine inc oral 13 :57:23 CDT CPT-70425 Menactra Intramuscular Injectable 13:57:23 CDT CPT-48462 First Vx Component - Ix admin via ID IM or jet inj without physician counseling 16:42:17 CARDIOLOGY CONSULTANT CPT-99908 Fluzone preservative free (>=3 yrs.) 16:42:17 CARDIOLOGY CONSULTANT 06/03 CPT-26981 Venipuncture Draw Fee 16:29:01 CDT CPT-87941 Chest 2V Frontal and Lat 16:23:56 CDT CPT-95506 Administration single or combination vaccine inc oral 13 :39:17 CARDIOLOGY CONSULTANT CPT-13026 Tdap 13:39:17 CARDIOLOGY CONSULTANT
--- OUTSIDE RECORDS SUMMARY | 2017-11-06 01:15 | XMS REPORT | Clinical Summary ---
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 Intestinal infection due to other organism, not [...] employment physical examination V70.0 Active Manish Castrejon HOT SEALING MACHINE OPERATOR Routine general medical examination at a health care facility Exposure to mononucleosis V01.79 Active Manish Castrejon HOT SEALING MACHINE OPERATOR Contact with or exposure to other viral [...] Gastroenteritis, viral, acute ICD-008.8 Inactive Martha Montejo HOT SEALING MACHINE OPERATOR Bronchitis ICD-490 Inactive Hector Love MD 2014 Pharyngitis ICD-462 Inactive Hector Love MD Ingrown toenail ICD-703.0 Inactive Hector Love MD Ingrown toenail, right ICD-703.0 Inactive Hector Love MD Medication List Medication Instructions Start Date Stop Date Generic Name NDC Status Provider Patient Instruction AMOXICILLIN 500 MG TABS Take two tablets by mouth every 12 hours for 10 days AMOXICILLIN 21226745906 No Longer Active Иван Mooney MD Active VITAMIN C 500 MG CHEW TAB ASCORBIC ACID 76425016702 Active Иван Mooney MD Active PREDNISONE 20 MG TAB 2 po qd x 4 days PREDNISONE 87831718408 No Longer Active Hector Love MD Active HYDROCODONE-ACETAMINOPHEN 5-325 MG TABS 1/2 to 1 po q 4 hours prn pain 11/06 HYDROCODONE-ACETAMINOPHEN 14979539746 No Longer Active Hector Love MD Active FLONASE ALLERGY RELIEF 50 MCG/ACT NASAL SUSP 2 spray each nostril daily prn allergies FLUTICASONE PROPIONATE 54378466177 Active Hector Love MD Active AUGMENTIN 875-125 MG TAB 1 po BID x 10 days AMOXICILLIN-POT CLAVULANATE 12673471281 No Longer Active Hector Love MD Active FLONASE ALLERGY RELIEF 50 MCG/ACT NASAL SUSP 2 sprays each nostril daily PRN allergies FLUTICASONE PROPIONATE 58779178526 No Longer Active Hecotr Love MD Active AMOXICILLIN 500 MG CAPS 1 cap by mouth three times a day AMOXICILLIN 39775637225 No Longer Active Jillina Frazell HOT SEALING MACHINE OPERATOR Active KEFLEX 500 MG CAP 1 tab po tid CEPHALEXIN 29955970947 No Longer Active Jillina Frazell HOT SEALING MACHINE OPERATOR Active AMOXICILLIN 500 MG TABS 2 tabs twice a day for 10 days AMOXICILLIN 19520635784 No Longer Active Jillina Frazell HOT SEALING MACHINE OPERATOR Active ZYRTEC ALLERGY 10 MG CAPS 1 po qd CETIRIZINE HCL 79579560116 Active Hector Love MD Active PROGRAF 1 MG CAPS 2 tabs po bid TACROLIMUS 59893216294 Active Hector Love MD Active ZOFRAN 4 MG TABS 1 po q6hr PRN Nausea ONDANSETRON HCL 15011263045 No Longer Active Ramona Diggs LPN Active AMOXICILLIN 500 MG CAPS 2 po BID x 10 days AMOXICILLIN 58455439380 No Longer Active Martha Montejo HOT SEALING MACHINE OPERATOR Active AUGMENTIN 875-125 MG TAB 1 tab by mouth twice daily with food AMOXICILLIN-POT CLAVULANATE 93838854696 No Longer Active Hector Love MD Active LEVAQUIN 500 MG TABS 1 pill by mouth daily LEVOFLOXACIN 40360632067 No Longer Active Jen Crystal MD PhD Active LISINOPRIL 5 MG TABS 1.5 tab qd LISINOPRIL 85981818885 Active Jen Crystal MD PhD Active KETOCONAZOLE 2 % CREA apply twice a day to rash KETOCONAZOLE 82577663351 No Longer Active Hector Love MD Active AUGMENTIN 875-125 MG TAB 1 tab by mouth twice daily with food AMOXICILLIN-POT CLAVULANATE 48371517027 No Longer Active Иван Mooney MD Active LOTRISONE 0.05-1 % CREAM Apply twice a day to affected area 07/19 CLOTRIMAZOLE-BETAMETHASONE 96609306634 No Longer Active Иван Mooney MD Active FEXOFENADINE HCL 180 MG TABS 1 Daily FEXOFENADINE HCL 79930467908 No Longer Active Hector Love MD Active PROGRAF 0.5 MG CAPS Take one by mouth daily with 1 mg TACROLIMUS 86819306988 No Longer Active Hector Love MD Active AMOXICILLIN 500 MG CAPS 2 po BID x 10 days AMOXICILLIN 94365831363 No Longer Active Hector Love MD Active RAPAMUNE 1 MG TABS 3 tabs in the am SIROLIMUS 40376308178 No Longer Active Hector Love MD Active AMOXICILLIN 500 MG CAPS 2 po BID x 10 days AMOXICILLIN 84580209199 No Longer Active Hector Love MD Active LORTAB 5 5-500 MG TABS 1/2 to 1 tablet by mouth every 4 hours as needed for pain HYDROCODONE-ACETAMINOPHEN 01719522413 No Longer Active Hector Love MD Active FLUTICASONE PROPIONATE 50 MCG/ACT SUSP INSTILL 2 SPRAYS IN EACH NOSTRIL Q D FLUTICASONE PROPIONATE 60212568110 No Longer Active Hector Love MD Active PROGRAF 1 MG CAPS 1 po bid TACROLIMUS 06596904968 No Longer Active Hector Love MD Active AMOXICILLIN 875 MG TABS 1 tab by mouth twice daily AMOXICILLIN 78983391843 No Longer Active Hector Love MD Active AMOXICILLIN 500 MG CAPS 2 po BID x 10 days AMOXICILLIN 77272484017 No Longer Active Hector Love MD Active AUGMENTIN 875-125 MG TAB 1 tab by mouth twice daily with food AMOXICILLIN-POT CLAVULANATE 48584638841 No Longer Active Hector Love MD Active AZITHROMYCIN 250 MG TABS 2 po qd x 1 day, then 1 po qd x 4 days AZITHROMYCIN 97492118981 No Longer Active Hector Love MD Active CETIRIZINE HCL 10 MG TABS 1 PO Q D CETIRIZINE HCL 60694718947 No Longer Active [place] Active PROGRAF 1 MG CAPS 1 po bid PROGRAF 1 MG CAPS 334414 TACROLIMUS Inactive FLUTICASONE PROPIONATE 50 MCG/ACT SUSP INSTILL 2 SPRAYS IN EACH NOSTRIL Q D FLUTICASONE PROPIONATE 50 MCG/ACT SUSP 5305656 FLUTICASONE PROPIONATE Inactive LORTAB 5 5-500 MG TABS 1/2 to 1 tablet by mouth every 4 hours as needed for pain LORTAB 5 5-500 MG TABS HYDROCODONE- ACETAMINOPHEN Inactive RAPAMUNE 1 MG TABS 3 tabs in the am RAPAMUNE 1 MG TABS 507768 SIROLIMUS Inactive PROGRAF 0.5 MG CAPS Take one by mouth daily with 1 mg PROGRAF 0.5 MG CAPS 047924 TACROLIMUS Inactive FEXOFENADINE HCL 180 MG TABS 1 Daily FEXOFENADINE HCL 180 MG TABS 975210 FEXOFENADINE HCL Inactive LOTRISONE 0.05-1 % CREAM Apply twice a day to affected area 07/19 LOTRISONE 0.05-1 % CREAM 160317 CLOTRIMAZOLE-BETAMETHASONE Inactive KETOCONAZOLE 2 % CREA apply twice a day to rash KETOCONAZOLE 2 % CREA 652255 KETOCONAZOLE Inactive AUGMENTIN 875-125 MG TAB 1 tab by mouth twice daily with food AUGMENTIN 875-125 MG TAB 176169 AMOXICILLIN-POT CLAVULANATE Inactive ZOFRAN 4 MG TABS 1 po q6hr PRN Nausea ZOFRAN 4 MG TABS 600625 ONDANSETRON HCL Inactive AMOXICILLIN 500 MG TABS 2 tabs twice a day for 10 days AMOXICILLIN 500 MG TABS 279026 AMOXICILLIN Inactive FLONASE ALLERGY RELIEF 50 MCG/ACT NASAL SUSP 2 sprays each nostril daily PRN allergies FLONASE ALLERGY RELIEF 50 MCG/ACT NASAL SUSP 3849726 FLUTICASONE PROPIONATE Inactive HYDROCODONE-ACETAMINOPHEN 5-325 MG TABS 1/2 to 1 po q 4 hours prn pain 11/06 HYDROCODONE-ACETAMINOPHEN 5-325 MG TABS 352210 HYDROCODONE- ACETAMINOPHEN Inactive AMOXICILLIN 500 MG CAPS 2 po BID x 10 days AMOXICILLIN 500 MG CAPS 236341 AMOXICILLIN Inactive AMOXICILLIN 875 MG TABS 1 tab by mouth twice daily AMOXICILLIN 875 MG TABS 944498 AMOXICILLIN Inactive AMOXICILLIN 500 MG CAPS 2 po BID x 10 days AMOXICILLIN 500 MG CAPS 961947 AMOXICILLIN Inactive AMOXICILLIN 500 MG CAPS 2 po BID x 10 days AMOXICILLIN 500 MG CAPS 678715 AMOXICILLIN Inactive AUGMENTIN 875-125 MG TAB 1 tab by mouth twice daily with food AUGMENTIN 875-125 MG TAB 401325 AMOXICILLIN-POT CLAVULANATE Inactive LEVAQUIN 500 MG TABS 1 pill by mouth daily LEVAQUIN 500 MG TABS 564536 LEVOFLOXACIN Inactive AMOXICILLIN 500 MG CAPS 2 po BID x 10 days AMOXICILLIN 500 MG CAPS 632832 AMOXICILLIN Inactive AMOXICILLIN 500 MG CAPS 1 cap by mouth three times a day AMOXICILLIN 500 MG CAPS 449225 AMOXICILLIN Inactive AUGMENTIN 875-125 MG TAB 1 po BID x 10 days AUGMENTIN 875-125 MG TAB 418265 AMOXICILLIN-POT CLAVULANATE Inactive PREDNISONE 20 MG TAB 2 po qd x 4 days PREDNISONE 20 MG TAB 527055 PREDNISONE Inactive AMOXICILLIN 500 MG TABS Take two tablets by mouth every 12 hours for 10 days AMOXICILLIN 500 MG TABS 926982 AMOXICILLIN Inactive Advance Directives Directive Description Start Date PERMISSION TO SHARE Immunizations Vaccine Administration Date Value Standard Description Seasonal influenza vaccine, injectable, preservative free, for > 3 years old ( Afluria, FluLaval, Fluzone, Fluvirin, Fluarix, Agriflu(>=18 yo)) Fluzone preservative free (>=3 yrs.) [ZOB813] Influenza, seasonal, injectable, preservative free Adacel (Tetanus, reduced Diphtheria, and acellular Pertussis Immunization) Adacel [SSP619] tetanus toxoid, reduced diphtheria toxoid, and acellular [...] Panel - Chemistry sodium, serum 137 mmol/L 265-879 0942/08/14 carbon dioxide, venous blood 29.7 mmol/L 21.0-32.0 potassium, serum 4.3 mmol/L 3.5-5.2 chloride, serum 99 mmol/L 98-107 blood glucose 123 mg/dL 65-110 urea nitrogen, blood 12 mg/dL 7-18 creatinine, serum 0.84 mg/dL 0.60-1.30 alanine aminotransferase (SGPT), serum 48 U/L 12-78 aspartate aminotransferase (SGOT), serum 26 U/L 15-37 calcium, serum 9.4 mg/dL 8.5-10.1 bilirubin, serum, total 1.60 mg/dL 0.00-1.00 cholesterol, serum 141 mg/dL 267-205 9934/08/14 triglyceride, serum, fasting 54 mg/dL 30-200 HDL [...] 5.0-8.5 Encounters Code Encounter Date Provider Facility CPT-21841 Level 3 Est. Patient 16:06:03 CDT Manish Castrejon [facility] CPT-39546 Level 3 Est. Patient 09:57:24 CDT Manish Castrejon [facility] CPT-43926 Level 3 Est. Patient 16:31:04 CDT Иван Mooney MD [facility] CPT-07147 Level 4 Est. Patient 12:02:18 CDT Hector Love MD [facility] CPT-46028 Level 3 Est. Patient 16:14:45 CDT Hector Love MD [facility] CPT-54652 Level 3 Est. Patient 16:53:35 CDT Иван Mooney MD [facility] CPT-93050 Level 3 Est. Patient 15:57:13 CDT Martha Montejo [facility] CPT-78539 Level 3 Est. Patient 14:30:47 [employer] Hector Love MD [facility] CPT-09008 Level 3 Est. Patient 14:50:45 CDT Hector Love MD [facility] CPT-86434 Level 3 Est. Patient 21:17:30 CDT Jen Crystal MD, PhD [facility] CPT-83383 Level 3 Est. Patient 09:32:55 CDT Hector Love MD [facility] CPT-85124 Level 3 Est. 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 Patient 16:38:53 AUTO FLEET MANAGER Hector Love MD [facility] CPT-68622 Level 3 Est. Patient 15:46:05 CDT Hector Love MD [facility] CPT-62653 Level 3 Est. Patient 13:59:39 CDT Hector Love MD [facility] CPT-98760 Level 3 Est. Patient 14:44:46 AUTO FLEET MANAGER Hector Love MD [facility] CPT-29335 Level 3 Est. Patient 17:12:27 CDT Hector Love MD [facility] CPT-17902 Level 3 Est. Patient 15:30:32 CDT Hector Love MD [facility] CPT-88074 Level 3 Est. Patient 14:24:52 CDT Иван Mooney MD [facility] CPT-21959 Level 3 Est. Patient 14:08:38 AUT[employer] FLEET MANAGER Hector Love MD [facility] Procedures Code Procedure Name Date Entry Date Standard Description CPT-90571 Venipuncture Draw Fee 16:18:26 CDT CPT-10245 TB Skin Test 09:57:25 CDT CPT-000 Give Appropriate Flu Vaccine 16:22:23 [employer] FLEET MANAGER CPT-12128 Free T4 - LAB USE ONLY 11:38:58 CDT CPT-38970 TSH - LAB USE ONLY 11:38:58 CDT CPT-74832 Venipuncture Draw Fee 11:38:58 CDT CPT-70908 Fluzone Quadrivalent Intramuscular Suspension 0.5 ML 16: 12:26 AUTO FLEET MANAGER CPT-14872 Immunization Single Admin 16:12:26 AUTO FLEET MANAGER CPT-J0561 Bicillin LA 1,200,000 u (PCN G Benzathine) 16:40:23 CDT CPT-43883 Abx/Therapy Injection 16:40:22 CDT CPT-J0561 Bicillin LA 1,200,000 u (PCN G Benzathine) 16:15:35 CDT CPT-71534 Immunization Single Admin 16:11:28 AUT[employer] FLEET MANAGER CPT-11129 Fluzone Quadrivalent Intramuscular Suspension 0.5 ML 16: 11:28 AUTO FLEET MANAGER CPT-29482 Administration single or combination vaccine inc oral 13 :57:23 CDT CPT-33772 Menactra Intramuscular Injectable 13:57:23 CDT CPT-01973 First Vx Component - Ix admin via ID IM or jet inj without physician counseling 16:42:17 AUTO FLEET MANAGER CPT-29453 Fluzone preservative free (>=3 yrs.) 16:42:17 AUTO FLEET MANAGER 06/03 CPT-84777 Venipuncture Draw Fee 16:29:01 CDT CPT-85566 Chest 2V Frontal and Lat 16:23:56 CDT CPT-20710 Administration single or combination vaccine inc oral 13 :39:17 AUTO FLEET MANAGER CPT-09959 Tdap 13:39:17 AUTO FLEET MANAGER
--- OUTSIDE RECORDS SUMMARY | 2017-11-06 01:16 | XMS REPORT | Clinical Summary ---
Author Author Admin, LAMBERT Organization [employer] Address Unknown Phone Unavailable Allergies, Adverse Reactions, [...] Gastroenteritis, viral, acute 008.8 Resolved Martha Montejo [employer] LOADER Intestinal infection due to other organism, [...] employment physical examination V70.0 Active Manish Castrejon [employer] Routine general medical examination at a health care facility Exposure to mononucleosis V01.79 Active Manish Castrejon [employer] LOADER Contact with or exposure to other viral diseases Stress at work V62.1 Active Jillina Frazell [employer] LOADER Adverse effects of work environment BRONCHITIS, ACUTE ICD-466.0 Inactive Hector Love MD KNEE SPRAIN, LEFT ICD-844.9 Inactive Hector Love MD FH DIABETES ICD-V18.0 Inactive Hector Love MD U R I ICD-465.9 Inactive Hector Love MD COSTOCHRONDRITIS ICD-733.6 Inactive Hector Love MD COUGH ICD-786.2 Nils Love MD Tinea corporis ICD-110.5 Inactive Hector Love MD Sinusitis ICD-461.9 Inactive Hector Love MD Fever ICD-780.60 Inactive Hector Love MD SINUSITIS, ACUTE ICD-461.9 Inactive Hector Love MD FEVER UNSPECIFIED ICD-780.60 Inactive Hector Love MD NEED FOR PROPHYLACTIC VACCINATION WITH STREPTOCOCCUS PNEUMONIAE (PNEUMOCOCCUS) AND INFLUENZA ICD-V06.6 Inactive Hector Love MD Sinusitis, frontal, acute ICD-461.1 Inactive Hector Love MD Gastroenteritis, viral, acute ICD-008.8 Inactive Martha Montejo [employer] LOAD[employer] Bronchitis ICD-490 Inactive Hector Love MD 2014 Ingrown toenail, right ICD-703.0 Inactive Hector Love MD Pharyngitis ICD-462 Inactive Hector Love MD Malorie rodriguez ICD-703.0 Inactive Hector Love MD Medication List Medication Instructions Start Date Stop Date Generic Name ND Status Provider Patient Instruction PREDNISONE 20 MG TAB 1 tablet daily x 2 days PREDNISONE [id number] No Longer Active Jillina Frazell [employer] LOADER Active AMOXICILLIN 500 MG TABS Take two tablets by mouth every 12 hours for 10 days AMOXICILLIN 44537459875 No Longer Active Иван Mooney MD Active VITAMIN C 500 MG CHEW TAB ASCORBIC ACID 21653007841 Active Иван Mooney MD Active PREDNISONE 20 MG TAB 2 po qd x 4 days PREDNISONE 47645959239 No Longer Active Hector Love MD Active HYDROCODONE-ACETAMINOPHEN 5-325 MG TABS 1/2 to 1 po q 4 hours prn pain 11/06 HYDROCODONE-ACETAMINOPHEN 23499442991 No Longer Active Hector Love MD Active FLONASE ALLERGY RELIEF 50 MCG/ACT NASAL SUSP 2 spray each nostril daily prn allergies FLUTICASONE PROPIONATE 81486949713 Active Hector Love MD Active AUGMENTIN 875-125 MG TAB 1 po BID x 10 days AMOXICILLIN-POT CLAVULANATE 23264584985 No Longer Active Hector Love MD Active FLONASE ALLERGY RELIEF 50 MCG/ACT NASAL SUSP 2 sprays each nostril daily PRN allergies FLUTICASONE PROPIONATE 21070302301 No Longer Active Hector Love MD Active AMOXICILLIN 500 MG CAPS 1 cap by mouth three times a day AMOXICILLIN 37406789787 No Longer Active Jillina Fragretal [employer] LOADER Active KEFLEX 500 MG CAP 1 tab po tid CEPHALEXIN 33326937406 No Longer Active Jillina Frazell [employer] LOADER Active AMOXICILLIN 500 MG TABS 2 tabs twice a day for 10 days AMOXICILLIN 99975101470 No Longer Active Jillina Frazell [employer] LOADER Active ZYRTEC ALLERGY 10 MG CAPS 1 po qd CETIRIZINE HCL 02426289344 Active Hector Love MD Active PROGRAF 1 MG CAPS 2 tabs po bid TACROLIMUS 65176101054 Active Hector Love MD Active ZOFRAN 4 MG TABS 1 po q6hr PRN Nausea ONDANSETRON HCL 93246022429 No Longer Active Ramona Diggs [employer] SUPERVISOR Active AMOXICILLIN 500 MG CAPS 2 po BID x 10 days AMOXICILLIN 22625965757 No Longer Active Martha Escalantestephen [employer]OR LOADER Active AUGMENTIN 875-125 MG TAB 1 tab by mouth twice daily with food AMOXICILLIN-POT CLAVULANATE 16758248646 No Longer Active Hector Love MD Active LEVAQUIN 500 MG TABS 1 pill by mouth daily LEVOFLOXACIN 47963728130 No Longer Active Jen Crystal MD PhD Active LISINOPRIL 5 MG TABS 1.5 tab qd LISINOPRIL 28634266452 Active Jen Crystal MD PhD Active KETOCONAZOLE 2 % CREA apply twice a day to rash KETOCONAZOLE 30374699376 No Longer Active Hector Love MD Active AUGMENTIN 875-125 MG TAB 1 tab by mouth twice daily with food AMOXICILLIN-POT CLAVULANATE 64289358584 No Longer Active Иван Mooney MD Active LOTRISONE 0.05-1 % CREAM Apply twice a day to affected area 07/19 CLOTRIMAZOLE-BETAMETHASONE 93466258571 No Longer Active Иван Mooney MD Active FEXOFENADINE HCL 180 MG TABS 1 Daily FEXOFENADINE HCL 85938966731 No Longer Active Hector Love MD Active PROGRAF 0.5 MG CAPS Take one by mouth daily with 1 mg TACROLIMUS 25438724548 No Longer Active Hector Love MD Active AMOXICILLIN 500 MG CAPS 2 po BID x 10 days AMOXICILLIN 90052494386 No Longer Active Hector Love MD Active RAPAMUNE 1 MG TABS 3 tabs in the am SIROLIMUS 97695298045 No Longer Active Hector Love MD Active AMOXICILLIN 500 MG CAPS 2 po BID x 10 days AMOXICILLIN 91858514982 No Longer Active Hector Love MD Active LORTAB 5 5-500 MG TABS 1/2 to 1 tablet by mouth every 4 hours as needed for pain HYDROCODONE-ACETAMINOPHEN 90825522735 No Longer Active Hector Love MD Active FLUTICASONE PROPIONATE 50 MCG/ACT SUSP INSTILL 2 SPRAYS IN EACH NOSTRIL Q D FLUTICASONE PROPIONATE 30399499776 No Longer Active Hector Love MD Active PROGRAF 1 MG CAPS 1 po bid TACROLIMUS 71144725824 No Longer Active Hector Love MD Active AMOXICILLIN 875 MG TABS 1 tab by mouth twice daily AMOXICILLIN 65340764874 No Longer Active Hector Love MD Active AMOXICILLIN 500 MG CAPS 2 po BID x 10 days AMOXICILLIN 41593214085 No Longer Active Hector Love MD Active AUGMENTIN 875-125 MG TAB 1 tab by mouth twice daily with food AMOXICILLIN-POT CLAVULANATE 55292059340 No Longer Active Hector Love MD Active AZITHROMYCIN 250 MG TABS 2 po qd x 1 day, then 1 po qd x 4 days AZITHROMYCIN 95081008256 No Longer Active Hector Love MD Active CETIRIZINE HCL 10 MG TABS 1 PO Q D CETIRIZINE HCL 19824087076 No Longer Active [place] Active PROGRAF 1 MG CAPS 1 po bid PROGRAF 1 MG CAPS 413662 TACROLIMUS Inactive FLUTICASONE PROPIONATE 50 MCG/ACT SUSP INSTILL 2 SPRAYS IN EACH NOSTRIL Q D FLUTICASONE PROPIONATE 50 MCG/ACT SUSP 8311925 FLUTICASONE PROPIONATE Inactive LORTAB 5 5-500 MG TABS 1/2 to 1 tablet by mouth every 4 hours as needed for pain LORTAB 5 5-500 MG TABS HYDROCODONE- ACETAMINOPHEN Inactive RAPAMUNE 1 MG TABS 3 tabs in the am RAPAMUNE 1 MG TABS 078537 SIROLIMUS Inactive PROGRAF 0.5 MG CAPS Take one by mouth daily with 1 mg PROGRAF 0.5 MG CAPS 586556 TACROLIMUS Inactive FEXOFENADINE HCL 180 MG TABS 1 Daily FEXOFENADINE HCL 180 MG TABS 903866 FEXOFENADINE HCL Inactive LOTRISONE 0.05-1 % CREAM Apply twice a day to affected area 07/19 LOTRISONE 0.05-1 % CREAM 270965 CLOTRIMAZOLE-BETAMETHASONE Inactive KETOCONAZOLE 2 % CREA apply twice a day to rash KETOCONAZOLE 2 % CREA 175560 KETOCONAZOLE Inactive AUGMENTIN 875-125 MG TAB 1 tab by mouth twice daily with food AUGMENTIN 875-125 MG TAB 572165 AMOXICILLIN-POT CLAVULANATE Inactive ZOFRAN 4 MG TABS 1 po q6hr PRN Nausea ZOFRAN 4 MG TABS 819343 ONDANSETRON HCL Inactive AMOXICILLIN 500 MG TABS 2 tabs twice a day for 10 days AMOXICILLIN 500 MG TABS 670277 AMOXICILLIN Inactive FLONASE ALLERGY RELIEF 50 MCG/ACT NASAL SUSP 2 sprays each nostril daily PRN allergies FLONASE ALLERGY RELIEF 50 MCG/ACT NASAL SUSP 8973259 FLUTICASONE PROPIONATE Inactive HYDROCODONE-ACETAMINOPHEN 5-325 MG TABS 1/2 to 1 po q 4 hours prn pain 11/06 HYDROCODONE-ACETAMINOPHEN 5-325 MG TABS 547162 HYDROCODONE- ACETAMINOPHEN Inactive PREDNISONE 20 MG TAB 1 tablet daily x 2 days PREDNISONE 20 MG TAB 178522 PREDNISONE Inactive AMOXICILLIN 500 MG CAPS 2 po BID x 10 days AMOXICILLIN 500 MG CAPS 040705 AMOXICILLIN Inactive AMOXICILLIN 875 MG TABS 1 tab by mouth twice daily AMOXICILLIN 875 MG TABS 502746 AMOXICILLIN Inactive AMOXICILLIN 500 MG CAPS 2 po BID x 10 days AMOXICILLIN 500 MG CAPS 852180 AMOXICILLIN Inactive AMOXICILLIN 500 MG CAPS 2 po BID x 10 days AMOXICILLIN 500 MG CAPS 238055 AMOXICILLIN Inactive AUGMENTIN 875-125 MG TAB 1 tab by mouth twice daily with food AUGMENTIN 875-125 MG TAB 640388 AMOXICILLIN-POT CLAVULANATE Inactive LEVAQUIN 500 MG TABS 1 pill by mouth daily LEVAQUIN 500 MG TABS 852078 LEVOFLOXACIN Inactive AMOXICILLIN 500 MG CAPS 2 po BID x 10 days AMOXICILLIN 500 MG CAPS 718550 AMOXICILLIN Inactive AMOXICILLIN 500 MG CAPS 1 cap by mouth three times a day AMOXICILLIN 500 MG CAPS 897738 AMOXICILLIN Inactive AUGMENTIN 875-125 MG TAB 1 po BID x 10 days AUGMENTIN 875-125 MG TAB 081468 AMOXICILLIN-POT CLAVULANATE Inactive PREDNISONE 20 MG TAB 2 po qd x 4 days PREDNISONE 20 MG TAB 395730 PREDNISONE Inactive AMOXICILLIN 500 MG TABS Take two tablets by mouth every 12 hours for 10 days AMOXICILLIN 500 MG TABS 032317 AMOXICILLIN Inactive Advance Directives Directive Description Start Date PERMISSION TO SHARE Immunizations Vaccine Administration Date Value Standard Description Seasonal influenza vaccine, injectable, preservative free, for > 3 years old ( Afluria, FluLaval, Fluzone, Fluvirin, Fluarix, Agriflu(>=18 yo)) Fluzone preservative free (>=3 yrs.) [[id number]] Influenza, seasonal, injectable, preservative free Adacel (Tetanus, reduced Diphtheria, and acellular Pertussis Immunization) Adacel [[id number]] tetanus toxoid, reduced diphtheria toxoid, and acellular pertussis vaccine, adsorbed DPT immunization #5 DTaP oral polio vaccine (OPV) #4 Historical poliovirus vaccine, unspecified formulation MMR (measles, mumps, rubella) virus immunization #2 MMR MMR (measles, mumps, rubella) virus immunization #1 MMR Hemophilus influenza B immunization #4 Hibtitre Haemophilus influenzae type b vaccine, conjugate unspecified formulation DPT immunization #4 DTaP oral polio vaccine (OPV) #3 Historical poliovirus vaccine, unspecified formulation Hemophilus influenza B immunization #3 Hibtitre Haemophilus influenzae type b vaccine, conjugate unspecified formulation DPT immunization #3 DPT hepatitis B vaccine #3 Historical hepatitis B vaccine, unspecified formulation oral polio vaccine (OPV) #2 Historical poliovirus vaccine, unspecified formulation Hemophilus influenza B immunization #2 Hibtitre Haemophilus influenzae type b vaccine, conjugate unspecified formulation DPT immunization #2 DPT hepatitis B vaccine #2 given Historical hepatitis B vaccine, unspecified formulation oral polio vaccine (OPV) #1 Historical poliovirus vaccine, unspecified formulation Hemophilus influenza B immunization #1 Hibtitre Haemophilus influenzae type b vaccine, conjugate unspecified formulation DPT immunization #1 DPT hepatitis [...] Panel - Chemistry sodium, serum 137 mmol/L 832-290 1199/08/14 carbon dioxide, venous blood 29.7 mmol/L 21.0-32.0 potassium, serum 4.3 mmol/L 3.5-5.2 chloride, serum 99 mmol/L 98-107 blood glucose 123 mg/dL 65-110 urea nitrogen, blood 12 mg/dL 7-18 creatinine, serum 0.84 mg/dL 0.60-1.30 alanine aminotransferase (SGPT), serum 48 U/L 12-78 aspartate aminotransferase (SGOT), serum 26 U/L 15-37 calcium, serum 9.4 mg/dL 8.5-10.1 bilirubin, serum, total 1.60 mg/dL 0.00-1.00 cholesterol, serum 141 mg/dL 238-199 1888/08/14 triglyceride, serum, fasting 54 mg/dL 30-200 HDL cholesterol, serum 50 mg/dL 32-60 LDL cholesterol, serum 80 mg/dL 0-130 Lab Report: CBC W/DIFF, Comp. Metabolic Panel, Magnesium, Phos, Lipid Panel - Hematology hemoglobin, blood 16.7 g/dL 14.0-18.0 hematocrit, blood 48.8 % 40.0-54.0 mean corpuscular volume, RBC 87 fL 80-97 mean corpuscular hemoglobin, RBC 29.7 pg 27.0-31.2 mean corpuscular hemoglobin concentration, RBC 34.3 G/DL % 31.8- 35.4 red blood cell distribution width 12.5 % 13.0-18.0 platelet count 241 10^3/MM^3 10*3/mm3 906-135 5007/08/14 erythrocyte (RBC) count 5.64 10^6/MM^3 10*6/mm3 4.50-6.50 lymphocytes as percent of blood leukocytes 32.5 % 20.5-51.1 monocytes as percent of blood leukocytes 7.6 % 1.7-9.3 neutrophils as percent of blood leukocytes 54.6 % 42.2-75.2 leukocyte count, blood 7.8 10^3/MM^3 10*3/mm3 4.6-10.2 Lab Report: RapidStrep Rflx/Cx - Lab Microbial identification kit, rapid strep method Negative-Throat Culture to Follow Negative Lab Report: UADIP W/MICRO, AUTO - Chemistry protein, total urine random Trace mg/dL Negative RBC, urine, dipstick Trace-intact Negative Lab Report: UADIP W/MICRO, AUTO - Urinalysis urobilinogen, urine, semiquantitative (dipstick) 0.2 E.U./dL Normal glucose, urine, semiquantitative Negative Negative ketones, urine, by test strip Negative Negative bilirubin, urine Negative Negative leukocyte esterase, urine, by dipstick Negative Negative nitrite, urine, semiquantitative Negative Negative urine color Yellow Colorless;Lightyellow;Straw;Yellow appearance, urine Clear Clear specific gravity, urine 1.025 1.000-1.030 pH, urine, semiquantitative 6.0 5.0-8.5 Lab Report: VITAMIN D, 25-HYDROXY/99917 - Chemistry vitamin D 25-hydroxy, serum 18 ng/mL 30-100 Encounters Code Encounter Date Provider Facility CPT-77034 Level 3 Est. Patient 11:35:07 CDT Manish Castrejon [facility]-26132 Level 3 Est. [facility] 17[facility]22:[facility] Patient 16:06:03 CDT Manish Castrejon [facility]-60392 Level 3 Est. Patient 09:57:24 CDT Manish Castrejon [facility] CPT-43539 Level 3 Est. Patient 16:31:04 CDT Иван Mooney MD [facility] CPT-86450 Level 4 Est. Patient 12:02:18 CDT [address] Love MD [facility] CPT-54828 Level 3 Est. Patient 16:14:45 CDT Hector Love MD [facility] CPT-71895 Level 3 Est. Patient 16:53:35 CDT Иван Mooney MD [facility] CPT-83869 Level 3 Est. Patient 15:57:13 CDT Martha Montejo [facility] CPT-65049 Level 3 Est. Patient 14:30:47 [employer] TECH[employer]IST Hector Love MD [facility] CPT-85658 Level 3 Est. Patient 14:50:45 CDT Hector Love MD [facility] CPT-52693 Level 3 Est. Patient 21:17:30 CDT Jen Crystal MD PhD [facility] CPT-58878 Level 3 Est. Patient 09:32:55 CDT Hector Love MD [facility] CPT-36372 Level 3 Est. Patient 15:11:08 [employer]ENER TECHNOLOGIST Иван Mooney MD [facility] CPT-52721 Level 3 Est. Patient 16:38:53 [employer]ENER TECHNOLOGIST Hector Love MD [facility] CPT-74571 Level 3 Est. Patient 15:46:05 CDT Hector Love MD [facility] CPT-98858 Level 3 Est. Patient 13:59:39 CDT Hector Love MD [facility] CPT-44415 Level 3 Est. Patient 14:44:46 FASTENER TECHNOLOGIST Hector Love MD [facility] CPT-78953 Level 3 Est. Patient 17:12:27 CDT Hector Love MD [facility] CPT-79508 Level 3 Est. Patient 15:30:32 CDT Hector Love MD [facility] CPT-99603 Level 3 Est. Patient 14:24:52 CDT Иван Mooney MD [facility] CPT-11122 Level 3 Est. Patient 14:08:38 FA[employer]ENER TECHNOLOGIST Hector Love MD [facility] Procedures Code Procedure Name Date Entry Date Standard Description CPT-25195 Venipuncture Draw Fee 16:18:26 CDT CPT-11829 TB Skin Test 09:57:25 CDT CPT-000 Give Appropriate Flu Vaccine 16:22:23 [employer]ENER TECHNOLOGIST CPT-11725 Free T4 - LAB USE ONLY 11:38:58 CDT CPT-25352 TSH - LAB USE ONLY 11:38:58 CDT CPT-04389 Venipuncture Draw Fee 11:38:58 CDT CPT-95311 Fluzone Quadrivalent Intramuscular Suspension 0.5 ML 16: 12:26 [employer]ENER TECHNOLOGIST CPT-93036 Immunization Single Admin 16:12:26 FASTENER TECHNOLOGIST CPT-J0561 Bicillin LA 1,200,000 u (PCN G Benzathine) 16:40:23 CDT CPT-07382 Abx/Therapy Injection 16:40:22 CDT CPT-J0561 Bicillin LA 1,200,000 u (PCN G Benzathine) 16:15:35 CDT CPT-27258 Immunization Single Admin 16:11:28 FA[employer]ENER TECHNOLOGIST CPT-10790 Fluzone Quadrivalent Intramuscular Suspension 0.5 ML 16: 11:28 FASTENER TECHNOLOGIST CPT-57164 Administration single or combination vaccine inc oral 13 :57:23 CDT CPT-67795 Menactra Intramuscular Injectable 13:57:23 CDT CPT-81806 First Vx Component - Ix admin via ID IM or jet inj without physician counseling 16:42:17 FASTENER TECHNOLOGIST CPT-45939 Fluzone preservative free (>=3 yrs.) 16:42:17 FASTENER TECHNOLOGIST 06/03 CPT-26118 Venipuncture Draw Fee 16:29:01 CDT CPT-82405 Chest 2V Frontal and Lat 16:23:56 CDT CPT-53015 Administration single or combination vaccine inc oral 13 :39:17 FASTENER TECHNOLOGIST CPT-27673 Tdap 13:39:17 FASTENER TECHNOLOGIST
--- OUTSIDE RECORDS SUMMARY | 2017-11-06 01:17 | XMS REPORT | Clinical Summary ---
Author Author Admin, QIE Organization [facility] Address Unknown Phone Unavailable Allergies, [...] medical examination at a health care facility HYPERTENSION ICD-401.9 Inactive Hector Love MD BRONCHITIS, [...] AND INFLUENZA ICD-V06.6 Inactive Hector Love MD Pharyngitis ICD-462 Inactive [...] at work ICD-V62.1 Inactive Hector Love MD Gastroenteritis, viral, acute ICD-008.8 Inactive Martha Montejo [employer] Bronchitis ICD-490 Inactive Hector Love MD 2014 Medication List Medication Instructions Start Date Stop Date Generic Name NDC Status Provider Patient Instruction PROGRAF 1 MG ORAL CAPSULE 2 po BID TACROLIMUS [id number] Active Hector Love MD Active CETIRIZINE HCL 10 MG ORAL TABLET 1 po qd PRN Allergies CETIRIZINE HCL 85726537013 Active Hector Love MD Active LISINOPRIL 5 MG ORAL TABLET 1.5 po qd LISINOPRIL 15791628285 Active Hector Love MD Active FLUTICASONE PROPIONATE 50 MCG/ACT NASAL SUSPENSION 2 sprays/nostril qd PRN Congestion/Allergies FLUTICASONE PROPIONATE 50604957615 Active Hector Love MD Active VITAMIN C 500 MG ORAL TABLET CHEWABLE ASCORBIC ACID 03865611981 No Longer Active Hector Love MD Active PREDNISONE 20 MG ORAL TABLET 1 tablet daily x 2 days PREDNISONE 36057970654 No Longer Active Jillina Fradebora [employer] Active AMOXICILLIN 500 MG ORAL TABLET Take two tablets by mouth every 12 hours for 10 days AMOXICILLIN 41476181773 No Longer Active Иван Mooney MD Active PREDNISONE 20 MG ORAL TABLET 2 po qd x 4 days PREDNISONE 77968548869 No Longer Active Hector Love MD Active HYDROCODONE-ACETAMINOPHEN 5-325 MG ORAL TABLET 1/2 to 1 po q 4 hours prn pain HYDROCODONE-ACETAMINOPHEN 76113653936 No Longer Active Hector Love MD Active AUGMENTIN 875-125 MG ORAL TABLET 1 po BID x 10 days AMOXICILLIN-POT CLAVULANATE 60983397257 No Longer Active Hector Love MD Active FLONASE ALLERGY RELIEF 50 MCG/ACT NASAL SUSPENSION 2 sprays each nostril daily PRN allergies FLUTICASONE PROPIONATE 71856102686 No Longer Active Hector Love MD Active AMOXICILLIN 500 MG ORAL CAPSULE 1 cap by mouth three times a day AMOXICILLIN 98510418720 No Longer Active Jillina Fragretal [employer] Active KEFLEX 500 MG ORAL CAPSULE 1 tab po tid CEPHALEXIN 20003661687 No Longer Active Jillina Fragretal [employer]INE Active AMOXICILLIN 500 MG ORAL TABLET 2 tabs twice a day for 10 days AMOXICILLIN 50261469554 No Longer Active Jillina Fragretal [employer]ACHINE Active ZOFRAN 4 MG ORAL TABLET 1 po q6hr PRN Nausea ONDANSETRON HCL 94714384968 No Longer Active Ramona Diggs LPN Active AMOXICILLIN 500 MG ORAL CAPSULE 2 po BID x 10 days AMOXICILLIN 63037513891 No Longer Active Martha Montejo [employer]INE Active AUGMENTIN 875-125 MG ORAL TABLET 1 tab by mouth twice daily with food AMOXICILLIN-POT CLAVULANATE 77552516837 No Longer Active Hector Love MD Active LEVAQUIN 500 MG ORAL TABLET 1 pill by mouth daily LEVOFLOXACIN 25329949712 No Longer Active Jen Crystal MD PhD Active KETOCONAZOLE 2 % EXTERNAL CREAM apply twice a day to rash KETOCONAZOLE 88216271189 No Longer Active Hector Love MD Active AUGMENTIN 875-125 MG ORAL TABLET 1 tab by mouth twice daily with food AMOXICILLIN-POT CLAVULANATE 27814318397 No Longer Active Иван Mooney MD Active LOTRISONE 1-0.05 % EXTERNAL CREAM Apply twice a day to affected area CLOTRIMAZOLE-BETAMETHASONE 19602956306 No Longer Active Иван Mooney MD Active FEXOFENADINE HCL 180 MG ORAL TABLET 1 Daily FEXOFENADINE HCL 72205747840 No Longer Active Hector Love MD Active PROGRAF 0.5 MG ORAL CAPSULE Take one by mouth daily with 1 mg TACROLIMUS 68517461011 No Longer Active Hector Love MD Active AMOXICILLIN 500 MG ORAL CAPSULE 2 po BID x 10 days AMOXICILLIN 28933109762 No Longer Active Hector Love MD Active RAPAMUNE 1 MG ORAL TABLET 3 tabs in the am SIROLIMUS 53038175607 No Longer Active Hector Love MD Active AMOXICILLIN 500 MG ORAL CAPSULE 2 po BID x 10 days AMOXICILLIN 02103020056 No Longer Active Hector Love MD Active LORTAB 5-500 MG ORAL TABLET 1/2 to 1 tablet by mouth every 4 hours as needed for pain HYDROCODONE-ACETAMINOPHEN 18780302921 No Longer Active Hector Love MD Active FLUTICASONE PROPIONATE 50 MCG/ACT NASAL SUSPENSION INSTILL 2 SPRAYS IN EACH NOSTRIL Q D FLUTICASONE PROPIONATE 51021716217 No Longer Active Hector Love MD Active PROGRAF 1 MG ORAL CAPSULE 1 po bid TACROLIMUS 58819742331 No Longer Active Hector Love MD Active AMOXICILLIN 875 MG ORAL TABLET 1 tab by mouth twice daily AMOXICILLIN 33712057433 No Longer Active Hector Love MD Active AMOXICILLIN 500 MG ORAL CAPSULE 2 po BID x 10 days AMOXICILLIN 89828272620 No Longer Active Hector Love MD Active AUGMENTIN 875-125 MG ORAL TABLET 1 tab by mouth twice daily with food AMOXICILLIN-POT CLAVULANATE 21013888027 No Longer Active Hector Love MD Active AZITHROMYCIN 250 MG ORAL TABLET 2 po qd x 1 day, then 1 po qd x 4 days 06/19 AZITHROMYCIN 09117269417 No Longer Active Hector Love MD Active CETIRIZINE HCL 10 MG ORAL TABLET 1 PO Q D CETIRIZINE HCL 17299806498 No Longer Active Waleska Chongarger Active PROGRAF 1 MG ORAL CAPSULE 1 po bid PROGRAF 1 MG ORAL CAPSULE 010460 TACROLIMUS Inactive FLUTICASONE PROPIONATE 50 MCG/ACT NASAL SUSPENSION INSTILL 2 SPRAYS IN EACH NOSTRIL Q D FLUTICASONE PROPIONATE 50 MCG/ACT NASAL SUSPENSION 8139998 FLUTICASONE PROPIONATE Inactive LORTAB 5-500 MG ORAL TABLET 1/2 to 1 tablet by mouth every 4 hours as needed for pain LORTAB 5-500 MG ORAL TABLET HYDROCODONE- ACETAMINOPHEN Inactive RAPAMUNE 1 MG ORAL TABLET 3 tabs in the am RAPAMUNE 1 MG ORAL TABLET 045532 SIROLIMUS Inactive PROGRAF 0.5 MG ORAL CAPSULE Take one by mouth daily with 1 mg PROGRAF 0.5 MG ORAL CAPSULE 198070 TACROLIMUS Inactive FEXOFENADINE HCL 180 MG ORAL TABLET 1 Daily FEXOFENADINE HCL 180 MG ORAL TABLET 965522 FEXOFENADINE HCL Inactive LOTRISONE 1-0.05 % EXTERNAL CREAM Apply twice a day to affected area LOTRISONE 1-0.05 % EXTERNAL CREAM 256998 CLOTRIMAZOLE- BETAMETHASONE Inactive KETOCONAZOLE 2 % EXTERNAL CREAM apply twice a day to rash KETOCONAZOLE 2 % EXTERNAL CREAM 805298 KETOCONAZOLE Inactive AUGMENTIN 875-125 MG ORAL TABLET 1 tab by mouth twice daily with food AUGMENTIN 875-125 MG ORAL TABLET 783684 AMOXICILLIN-POT CLAVULANATE Inactive ZOFRAN 4 MG ORAL TABLET 1 po q6hr PRN Nausea ZOFRAN 4 MG ORAL TABLET 592595 ONDANSETRON HCL Inactive AMOXICILLIN 500 MG ORAL TABLET 2 tabs twice a day for 10 days AMOXICILLIN 500 MG ORAL TABLET 860397 AMOXICILLIN Inactive FLONASE ALLERGY RELIEF 50 MCG/ACT NASAL SUSPENSION 2 sprays each nostril daily PRN allergies FLONASE ALLERGY RELIEF 50 MCG/ACT NASAL SUSPENSION 0312503 FLUTICASONE PROPIONATE Inactive HYDROCODONE-ACETAMINOPHEN 5-325 MG ORAL TABLET 1/2 to 1 po q 4 hours prn pain HYDROCODONE-ACETAMINOPHEN 5-325 MG ORAL TABLET 662319 HYDROCODONE-ACETAMINOPHEN Inactive PREDNISONE 20 MG ORAL TABLET 1 tablet daily x 2 days PREDNISONE 20 MG ORAL TABLET 608061 PREDNISONE Inactive VITAMIN C 500 MG ORAL TABLET CHEWABLE VITAMIN C 500 MG ORAL TABLET CHEWABLE ASCORBIC ACID Inactive AMOXICILLIN 500 MG ORAL CAPSULE 2 po BID x 10 days AMOXICILLIN 500 MG ORAL CAPSULE 765150 AMOXICILLIN Inactive AMOXICILLIN 875 MG ORAL TABLET 1 tab by mouth twice daily AMOXICILLIN 875 MG ORAL TABLET 591304 AMOXICILLIN Inactive AMOXICILLIN 500 MG ORAL CAPSULE 2 po BID x 10 days AMOXICILLIN 500 MG ORAL CAPSULE 174582 AMOXICILLIN Inactive AMOXICILLIN 500 MG ORAL CAPSULE 2 po BID x 10 days AMOXICILLIN 500 MG ORAL CAPSULE 321782 AMOXICILLIN Inactive AUGMENTIN 875-125 MG ORAL TABLET 1 tab by mouth twice daily with food AUGMENTIN 875-125 MG ORAL TABLET 305432 AMOXICILLIN-POT CLAVULANATE Inactive LEVAQUIN 500 MG ORAL TABLET 1 pill by mouth daily LEVAQUIN 500 MG ORAL TABLET 530542 LEVOFLOXACIN Inactive AMOXICILLIN 500 MG ORAL CAPSULE 2 po BID x 10 days AMOXICILLIN 500 MG ORAL CAPSULE 125482 AMOXICILLIN Inactive AMOXICILLIN 500 MG ORAL CAPSULE 1 cap by mouth three times a day AMOXICILLIN 500 MG ORAL CAPSULE 357100 AMOXICILLIN Inactive AUGMENTIN 875-125 MG ORAL TABLET 1 po BID x 10 days AUGMENTIN 875-125 MG ORAL TABLET 832473 AMOXICILLIN-POT CLAVULANATE Inactive PREDNISONE 20 MG ORAL TABLET 2 po qd x 4 days PREDNISONE 20 MG ORAL TABLET 800442 PREDNISONE Inactive AMOXICILLIN 500 MG ORAL TABLET Take two tablets by mouth every 12 hours for 10 days AMOXICILLIN 500 MG ORAL TABLET 753164 AMOXICILLIN Inactive Advance Directives Directive Description Start Date PERMISSION TO SHARE Immunizations Vaccine Administration Date Value Standard Description Seasonal influenza vaccine, injectable, preservative free, for > 3 years old ( Afluria, FluLaval, Fluzone, Fluvirin, Fluarix, Agriflu(>=18 yo)) Fluzone preservative free (>=3 yrs.) [[id number]] Influenza, seasonal, injectable, preservative free Adacel (Tetanus, reduced Diphtheria, and acellular Pertussis Immunization) Adacel [AQC169] tetanus toxoid, reduced diphtheria toxoid, and acellular [...] Panel - Chemistry sodium, serum 137 mmol/L 154-241 7696/08/14 carbon dioxide, venous blood 29.7 mmol/L 21.0-32.0 potassium, serum 4.3 mmol/L 3.5-5.2 chloride, serum 99 mmol/L 98-107 blood glucose 123 mg/dL 65-110 urea nitrogen, blood 12 mg/dL 7-18 creatinine, serum 0.84 mg/dL 0.60-1.30 alanine aminotransferase (SGPT), serum 48 U/L 12-78 HDL cholesterol, serum 50 mg/dL 32-60 LDL cholesterol, serum 80 mg/dL 0-130 aspartate aminotransferase (SGOT), serum 26 U/L 15-37 calcium, serum 9.4 mg/dL 8.5-10.1 bilirubin, serum, total 1.60 mg/dL 0.00-1.00 cholesterol, serum 141 mg/dL 750-040 6562/08/14 triglyceride, serum, fasting 54 mg/dL 30-200 Lab Report: CBC W/DIFF, Comp. Metabolic Panel, Magnesium, Phos, Lipid Panel - Hematology red blood cell distribution width 12.5 % 13.0-18.0 platelet count 241 10^3/MM^3 10*3/mm3 762-196 0857/08/14 erythrocyte (RBC) count 5.64 10^6/MM^3 10*6/mm3 4.50-6.50 lymphocytes as percent of blood leukocytes 32.5 % 20.5-51.1 monocytes as percent of blood leukocytes 7.6 % 1.7-9.3 neutrophils as percent of blood leukocytes 54.6 % 42.2-75.2 leukocyte count, blood 7.8 10^3/MM^3 10*3/mm3 4.6-10.2 mean corpuscular hemoglobin concentration, RBC 34.3 G/DL % 31.8- 35.4 mean corpuscular hemoglobin, RBC 29.7 pg 27.0-31.2 mean corpuscular volume, RBC 87 fL 80-97 hematocrit, blood 48.8 % 40.0-54.0 hemoglobin, blood 16.7 g/dL 14.0-18.0 Lab Report: RapidStrep Rflx/Cx - Lab Microbial [...] 1.025 1.000-1.030 pH, urine, semiquantitative 6.0 5.0-8.5 glucose, urine, semiquantitative Negative Negative ketones, urine, by test strip Negative Negative bilirubin, urine Negative Negative Lab Report: VITAMIN D, 25-HYDROXY/05161 - Chemistry vitamin D 25-hydroxy, serum 18 ng/mL 30-100 Encounters Code Encounter Date Provider Facility CPT-20033 Level 3 Est. Patient 11:35:07 CDT Manish Castrejon [facility]-40694 Level 3 Est. Patient 17:22:36 CDT [facility] Level 3 Est. Patient 16:06:03 CDT Manish Castrejon [facility]-86785 Level 3 Est. Patient 09:57:24 CDT Manish Castrejon [facility] CPT-56427 Level 3 Est. Patient 16:31:04 CDT Иван Mooney MD [facility]-38163 Level 4 Est. Patient 12:02:18 CDT Hector Love MD [facility]-10593 Level 3 Est. Patient 16:14:45 CDT Hector Love MD [facility] CPT-39183 Level 3 Est. Patient 16:53:35 CDT Иван Mooney MD [facility] CPT-46891 Level 3 Est. Patient 15:57:13 CDT Martha Montejo [facility]-63302 Level 3 Est. Patient 14:30:47 [employer] Hector Love MD [facility] CPT-75828 Level 3 Est. Patient 14:50:45 CDT Hector Love MD [facility]-93890 Level 3 Est. Patient 21:17:30 CDT Jen Crystal MD, PhD [facility] CPT-40285 Level 3 Est. Patient 09:32:55 CDT Hector Love MD [facility] CPT-65441 Level 3 Est. Patient 15:11:08 [employer] DIRECT[employer] Иван Mooney MD [facility] CPT-83037 Level 3 Est. Patient 16:38:53 [employer] DIRECTOR Hector Love MD [facility] CPT-77313 Level 3 Est. Patient 15:46:05 CDT Hector Love MD [facility] CPT-31835 Level 3 Est. Patient 13:59:39 CDT Hector Love MD [facility] CPT-81399 Level 3 Est. Patient 14:44:46 [employer] DIRECTOR Hector Love MD [facility] CPT-64297 Level 3 Est. Patient 17:12:27 CDT Hector Love MD [facility] CPT-94969 Level 3 Est. Patient 15:30:32 CDT Hector Love MD [facility] CPT-64130 Level 3 Est. Patient 14:24:52 CDT Иван Mooney MD [facility] CPT-54913 Level 3 Est. Patient 14:08:38 [employer] DIRECTOR Hector Love MD [facility] Procedures Code Procedure Name Date Entry Date Standard Description CPT-94940 Venipuncture Draw Fee 16:18:26 CDT CPT-54750 TB Skin Test 09:57:25 CDT CPT-000 Give Appropriate Flu Vaccine 16:22:23 [employer] DIRECTOR CPT-70907 Free T4 - LAB USE ONLY 11:38:58 CDT CPT-46136 TSH - LAB USE ONLY 11:38:58 CDT CPT-88027 Venipuncture Draw Fee 11:38:58 CDT CPT-08707 Fluzone Quadrivalent Intramuscular Suspension 0.5 ML 16: 12:26 [employer] DIRECT[employer] CPT-74343 Immunization Single Admin 16:12:26 [employer] DIRECT[employer] CPT-J0561 Bicillin LA 1,200,000 u (PCN G Benzathine) 16:40:23 CDT CPT-41647 Abx/Therapy Injection 16:40:22 CDT CPT-J0561 Bicillin LA 1,200,000 u (PCN G Benzathine) 16:15:35 CDT CPT-52078 Immunization Single Admin 16:11:28 [employer] DIRECT[employer] CPT-45117 Fluzone Quadrivalent Intramuscular Suspension 0.5 ML 16: 11:28 [employer] DIRECT[employer] CPT-96597 Administration single or combination vaccine inc oral 13 :57:23 CDT CPT-99560 Menactra Intramuscular Injectable 13:57:23 CDT CPT-14695 First Vx Component - Ix admin via ID IM or jet inj without physician counseling 16:42:17 [employer] DIRECT[employer] CPT-92537 Fluzone preservative free (>=3 yrs.) 16:42:17 [employer] DIRECTOR 06/03 CPT-23106 Venipuncture Draw Fee 16:29:01 CDT CPT-10910 Chest 2V Frontal and Lat 16:23:56 CDT CPT-19240 Administration single or combination vaccine inc oral 13 :39:17 [employer] DIRECT[employer] CPT-78968 Tdap 13:39:17 [employer] DIRECTOR
--- OUTSIDE RECORDS SUMMARY | 2017-11-06 01:18 | XMS REPORT | Clinical Summary ---
Author Author Admin, LAMBERT Organization [facility] Address Unknown Phone Unavailable Allergies, Adverse Reactions, [...] Gastroenteritis, viral, acute 008.8 Resolved Martha Montejo MEDICAL RECORDS SECRETARY Intestinal infection due to other organism, not [...] employment physical examination V70.0 Active Manish Castrejon MEDICAL RECORDS SECRETARY Routine general medical examination at a health care facility Exposure to mononucleosis V01.79 Active Manish Castrejon MEDICAL RECORDS SECRETARY Contact with or exposure to other viral diseases Stress at work V62.1 Active Jillina Frazell MEDICAL RECORDS SECRETARY Adverse effects of work environment FH DIABETES [...] Gastroenteritis, viral, acute ICD-008.8 Inactive Martha Montejo MEDICAL RECORDS SECRETARY Bronchitis ICD-490 Inactive Hector Love MD 2014 Pharyngitis ICD-462 Inactive Hector Love MD Ingrown toenail ICD-703.0 Inactive Hector Love MD Malorie rodriguez, right ICD-703.0 Inactive Hector Love MD Medication List Medication Instructions Start Date Stop Date Generic Name ND Status Provider Patient Instruction PREDNISONE 20 MG TAB 1 tablet daily x 2 days PREDNISONE 02572340868 No Longer Active Jillina Frazell MEDICAL RECORDS SECRETARY Active AMOXICILLIN 500 MG TABS Take two tablets by mouth every 12 hours for 10 days AMOXICILLIN 86476772941 No Longer Active Иван Mooney MD Active VITAMIN C 500 MG CHEW TAB ASCORBIC ACID 19298206325 Active Иван Mooney MD Active PREDNISONE 20 MG TAB 2 po qd x 4 days PREDNISONE 19525838146 No Longer Active Hector Love MD Active HYDROCODONE-ACETAMINOPHEN 5-325 MG TABS 1/2 to 1 po q 4 hours prn pain 11/06 HYDROCODONE-ACETAMINOPHEN 60251416368 No Longer Active Hector Love MD Active FLONASE ALLERGY RELIEF 50 MCG/ACT NASAL SUSP 2 spray each nostril daily prn allergies FLUTICASONE PROPIONATE 38551319028 Active Hector Love MD Active AUGMENTIN 875-125 MG TAB 1 po BID x 10 days AMOXICILLIN-POT CLAVULANATE 56034230462 No Longer Active Hector Love MD Active FLONASE ALLERGY RELIEF 50 MCG/ACT NASAL SUSP 2 sprays each nostril daily PRN allergies FLUTICASONE PROPIONATE 21844872966 No Longer Active Hector Love MD Active AMOXICILLIN 500 MG CAPS 1 cap by mouth three times a day AMOXICILLIN 37736635068 No Longer Active Jillina Fradebora GARCIA Active KEFLEX 500 MG CAP 1 tab po tid CEPHALEXIN 11673254957 No Longer Active Jillina Frazell MEDICAL RECORDS SECRETARY Active AMOXICILLIN 500 MG TABS 2 tabs twice a day for 10 days AMOXICILLIN 91482856178 No Longer Active Jillina Frazell MEDICAL RECORDS SECRETARY Active ZYRTEC ALLERGY 10 MG CAPS 1 po qd CETIRIZINE HCL 36733034509 Active Hector Love MD Active PROGRAF 1 MG CAPS 2 tabs po bid TACROLIMUS 63067503250 Active Hector Love MD Active ZOFRAN 4 MG TABS 1 po q6hr PRN Nausea ONDANSETRON HCL 27473172133 No Longer Active Ramona Diggs CLINICAL TRANSFORMATION SPECIALIST Active AMOXICILLIN 500 MG CAPS 2 po BID x 10 days AMOXICILLIN 69396658477 No Longer Active Martha Escalantestephen MEDICAL RECORDS SECRETARY Active AUGMENTIN 875-125 MG TAB 1 tab by mouth twice daily with food AMOXICILLIN-POT CLAVULANATE 32779565189 No Longer Active Hector Love MD Active LEVAQUIN 500 MG TABS 1 pill by mouth daily LEVOFLOXACIN 42241602690 No Longer Active Jen Crystal MD PhD Active LISINOPRIL 5 MG TABS 1.5 tab qd LISINOPRIL 80670623681 Active Jen Crystal MD PhD Active KETOCONAZOLE 2 % CREA apply twice a day to rash KETOCONAZOLE 65458693013 No Longer Active Hector Love MD Active AUGMENTIN 875-125 MG TAB 1 tab by mouth twice daily with food AMOXICILLIN-POT CLAVULANATE 07602660332 No Longer Active Иван Mooney MD Active LOTRISONE 0.05-1 % CREAM Apply twice a day to affected area 07/19 CLOTRIMAZOLE-BETAMETHASONE 81592776951 No Longer Active Иван Mooney MD Active FEXOFENADINE HCL 180 MG TABS 1 Daily FEXOFENADINE HCL 62210290018 No Longer Active Hector Love MD Active PROGRAF 0.5 MG CAPS Take one by mouth daily with 1 mg TACROLIMUS 75379439087 No Longer Active Hector Love MD Active AMOXICILLIN 500 MG CAPS 2 po BID x 10 days AMOXICILLIN 24868896976 No Longer Active Hector Love MD Active RAPAMUNE 1 MG TABS 3 tabs in the am SIROLIMUS 80489783478 No Longer Active Hector Love MD Active AMOXICILLIN 500 MG CAPS 2 po BID x 10 days AMOXICILLIN 64018181107 No Longer Active Hector Love MD Active LORTAB 5 5-500 MG TABS 1/2 to 1 tablet by mouth every 4 hours as needed for pain HYDROCODONE-ACETAMINOPHEN 91638058954 No Longer Active Hector Love MD Active FLUTICASONE PROPIONATE 50 MCG/ACT SUSP INSTILL 2 SPRAYS IN EACH NOSTRIL Q D FLUTICASONE PROPIONATE 18948433210 No Longer Active Hector Love MD Active PROGRAF 1 MG CAPS 1 po bid TACROLIMUS 31583855638 No Longer Active Hector Love MD Active AMOXICILLIN 875 MG TABS 1 tab by mouth twice daily AMOXICILLIN 06402806980 No Longer Active Hector Love MD Active AMOXICILLIN 500 MG CAPS 2 po BID x 10 days AMOXICILLIN 88481850067 No Longer Active Hector Love MD Active AUGMENTIN 875-125 MG TAB 1 tab by mouth twice daily with food AMOXICILLIN-POT CLAVULANATE 75238290834 No Longer Active Hector Love MD Active AZITHROMYCIN 250 MG TABS 2 po qd x 1 day, then 1 po qd x 4 days AZITHROMYCIN 48235739877 No Longer Active Hector Love MD Active CETIRIZINE HCL 10 MG TABS 1 PO Q D CETIRIZINE HCL 75288066765 No Longer Active Waleska [place] Active PROGRAF 1 MG CAPS 1 po bid PROGRAF 1 MG CAPS 275575 TACROLIMUS Inactive FLUTICASONE PROPIONATE 50 MCG/ACT SUSP INSTILL 2 SPRAYS IN EACH NOSTRIL Q D FLUTICASONE PROPIONATE 50 MCG/ACT SUSP 7240310 FLUTICASONE PROPIONATE Inactive LORTAB 5 5-500 MG TABS 1/2 to 1 tablet by mouth every 4 hours as needed for pain LORTAB 5 5-500 MG TABS HYDROCODONE- ACETAMINOPHEN Inactive RAPAMUNE 1 MG TABS 3 tabs in the am RAPAMUNE 1 MG TABS 998722 SIROLIMUS Inactive PROGRAF 0.5 MG CAPS Take one by mouth daily with 1 mg PROGRAF 0.5 MG CAPS 254115 TACROLIMUS Inactive FEXOFENADINE HCL 180 MG TABS 1 Daily FEXOFENADINE HCL 180 MG TABS 596097 FEXOFENADINE HCL Inactive LOTRISONE 0.05-1 % CREAM Apply twice a day to affected area 07/19 LOTRISONE 0.05-1 % CREAM 505865 CLOTRIMAZOLE-BETAMETHASONE Inactive KETOCONAZOLE 2 % CREA apply twice a day to rash KETOCONAZOLE 2 % CREA 292320 KETOCONAZOLE Inactive AUGMENTIN 875-125 MG TAB 1 tab by mouth twice daily with food AUGMENTIN 875-125 MG TAB 616050 AMOXICILLIN-POT CLAVULANATE Inactive ZOFRAN 4 MG TABS 1 po q6hr PRN Nausea ZOFRAN 4 MG TABS 290858 ONDANSETRON HCL Inactive AMOXICILLIN 500 MG TABS 2 tabs twice a day for 10 days AMOXICILLIN 500 MG TABS 439844 AMOXICILLIN Inactive FLONASE ALLERGY RELIEF 50 MCG/ACT NASAL SUSP 2 sprays each nostril daily PRN allergies FLONASE ALLERGY RELIEF 50 MCG/ACT NASAL SUSP 3674782 FLUTICASONE PROPIONATE Inactive HYDROCODONE-ACETAMINOPHEN 5-325 MG TABS 1/2 to 1 po q 4 hours prn pain 11/06 HYDROCODONE-ACETAMINOPHEN 5-325 MG TABS 997565 HYDROCODONE- ACETAMINOPHEN Inactive PREDNISONE 20 MG TAB 1 tablet daily x 2 days PREDNISONE 20 MG TAB 295506 PREDNISONE Inactive AMOXICILLIN 500 MG CAPS 2 po BID x 10 days AMOXICILLIN 500 MG CAPS 778368 AMOXICILLIN Inactive AMOXICILLIN 875 MG TABS 1 tab by mouth twice daily AMOXICILLIN 875 MG TABS 219678 AMOXICILLIN Inactive AMOXICILLIN 500 MG CAPS 2 po BID x 10 days AMOXICILLIN 500 MG CAPS 474461 AMOXICILLIN Inactive AMOXICILLIN 500 MG CAPS 2 po BID x 10 days AMOXICILLIN 500 MG CAPS 213585 AMOXICILLIN Inactive AUGMENTIN 875-125 MG TAB 1 tab by mouth twice daily with food AUGMENTIN 875-125 MG TAB 803095 AMOXICILLIN-POT CLAVULANATE Inactive LEVAQUIN 500 MG TABS 1 pill by mouth daily LEVAQUIN 500 MG TABS 765013 LEVOFLOXACIN Inactive AMOXICILLIN 500 MG CAPS 2 po BID x 10 days AMOXICILLIN 500 MG CAPS 084440 AMOXICILLIN Inactive AMOXICILLIN 500 MG CAPS 1 cap by mouth three times a day AMOXICILLIN 500 MG CAPS 485189 AMOXICILLIN Inactive AUGMENTIN 875-125 MG TAB 1 po BID x 10 days AUGMENTIN 875-125 MG TAB 778736 AMOXICILLIN-POT CLAVULANATE Inactive PREDNISONE 20 MG TAB 2 po qd x 4 days PREDNISONE 20 MG TAB 015394 PREDNISONE Inactive AMOXICILLIN 500 MG TABS Take two tablets by mouth every 12 hours for 10 days AMOXICILLIN 500 MG TABS 494111 AMOXICILLIN Inactive Advance Directives Directive Description Start Date PERMISSION TO SHARE Immunizations Vaccine Administration Date Value Standard Description Seasonal influenza vaccine, injectable, preservative free, for > 3 years old ( Afluria, FluLaval, Fluzone, Fluvirin, Fluarix, Agriflu(>=18 yo)) Fluzone preservative free (>=3 yrs.) [[id number]] Influenza, seasonal, injectable, preservative free Adacel (Tetanus, reduced Diphtheria, and acellular Pertussis Immunization) Adacel [PAZ158] tetanus toxoid, reduced diphtheria toxoid, and acellular [...] Panel - Chemistry sodium, serum 137 mmol/L 522-052 2962/08/14 carbon dioxide, venous blood 29.7 mmol/L 21.0-32.0 potassium, serum 4.3 mmol/L 3.5-5.2 chloride, serum 99 mmol/L 98-107 blood glucose 123 mg/dL 65-110 urea nitrogen, blood 12 mg/dL 7-18 creatinine, serum 0.84 mg/dL 0.60-1.30 alanine aminotransferase (SGPT), serum 48 U/L 12-78 aspartate aminotransferase (SGOT), serum 26 U/L 15-37 calcium, serum 9.4 mg/dL 8.5-10.1 bilirubin, serum, total 1.60 mg/dL 0.00-1.00 cholesterol, serum 141 mg/dL 552-061 5561/08/14 triglyceride, serum, fasting 54 mg/dL 30-200 HDL [...] semiquantitative 6.0 5.0-8.5 Lab Report: VITAMIN D, 25-HYDROXY/25619 - Chemistry vitamin D 25-hydroxy, serum 18 ng/mL 30-100 Encounters Code Encounter Date Provider Facility CPT-36960 Level 3 Est. Patient 11:35:07 CDT Manish Castrejon [facility] [place]-[id number] Level 3 Est. [facility]22[facility] Est[facility] Patient 16:06:03 CDT Manish Castrejon [facility] [place] CPT-97112 Level 3 Est. Patient 09:57:24 CDT Manish Castrejon [facility] [place] CPT-41147 Level 3 Est. Patient 16:31:04 CDT Иван Mooney MD [facility] CPT-40959 Level 4 Est. Patient 12:02:18 CDT Hector Love MD [facility] CPT-16616 Level 3 Est. Patient 16:14:45 CDT Hector Love MD [facility] CPT-39911 Level 3 Est. Patient 16:53:35 CDT Иван Mooney MD [facility] CPT-07878 Level 3 Est. Patient 15:57:13 CDT Martha Montejo [facility] CPT-59220 Level 3 Est. Patient 14:30:47 CLINICAL RN Hector Love MD [facility] CPT-23258 Level 3 Est. Patient 14:50:45 CDT Hector Love MD [facility] CPT-04526 Level 3 Est. Patient 21:17:30 CDT Jen Crystal MD PhD [facility] CPT-49174 Level 3 Est. Patient 09:32:55 CDT Hector Love MD [facility] CPT-47972 Level 3 Est. Patient 15:11:08 CLINICAL RN Иван Mooney MD [facility] CPT-95300 Level 3 Est. Patient 16:38:53 CLINICAL RN Hector Love MD [facility] CPT-18244 Level 3 Est. Patient 15:46:05 CDT Hector Love MD [facility] CPT-34566 Level 3 Est. Patient 13:59:39 CDT Hector Love MD [facility] CPT-84121 Level 3 Est. Patient 14:44:46 CLINICAL RN Hector Love MD [facility] CPT-05161 Level 3 Est. Patient 17:12:27 CDT Hector Love MD [facility] CPT-32786 Level 3 Est. Patient 15:30:32 CDT Hector Love MD [facility] CPT-46889 Level 3 Est. Patient 14:24:52 CDT Иван Mooney MD [facility] CPT-00258 Level 3 Est. Patient 14:08:38 CLINICAL RN Hector Love MD [facility] Procedures Code Procedure Name Date Entry Date Standard Description CPT-45480 Venipuncture Draw Fee 16:18:26 CDT CPT-59372 TB Skin Test 09:57:25 CDT CPT-000 Give Appropriate Flu Vaccine 16:22:23 CLINICAL RN CPT-50540 Free T4 - LAB USE ONLY 11:38:58 CDT CPT-00695 TSH - LAB USE ONLY 11:38:58 CDT CPT-90297 Venipuncture Draw Fee 11:38:58 CDT CPT-62877 Fluzone Quadrivalent Intramuscular Suspension 0.5 ML 16: 12:26 CLINICAL RN CPT-56636 Immunization Single Admin 16:12:26 CLINICAL RN CPT-J0561 Bicillin LA 1,200,000 u (PCN G Benzathine) 16:40:23 CDT CPT-23635 Abx/Therapy Injection 16:40:22 CDT CPT-J0561 Bicillin LA 1,200,000 u (PCN G Benzathine) 16:15:35 CDT CPT-23330 Immunization Single Admin 16:11:28 CLINICAL RN CPT-86006 Fluzone Quadrivalent Intramuscular Suspension 0.5 ML 16: 11:28 CLINICAL RN CPT-07249 Administration single or combination vaccine inc oral 13 :57:23 CDT CPT-26487 Menactra Intramuscular Injectable 13:57:23 CDT CPT-52483 First Vx Component - Ix admin via ID IM or jet inj without physician counseling 16:42:17 CLINICAL RN CPT-09475 Fluzone preservative free (>=3 yrs.) 16:42:17 CLINICAL RN 06/03 CPT-05187 Venipuncture Draw Fee 16:29:01 CDT CPT-80803 Chest 2V Frontal and Lat 16:23:56 CDT CPT-87583 Administration single or combination vaccine inc oral 13 :39:17 CLINICAL RN CPT-88249 Tdap 13:39:17 CLINICAL RN
--- OUTSIDE RECORDS SUMMARY | 2017-11-06 01:18 | XMS REPORT | Clinical Summary ---
Author Author Admin, QIE Organization [facility] Address Unknown Phone Unavailable Allergies, Adverse Reactions, [...] Gastroenteritis, viral, acute 008.8 Resolved Martha Montejo SUSTAINABLE DEVELOPMENT POLICY ANALYST Intestinal infection due to other organism, not [...] employment physical examination V70.0 Active Manish Castrejon SUSTAINABLE DEVELOPMENT POLICY ANALYST Routine general medical examination at a health care facility FH DIABETES ICD-V18.0 Inactive Hector Love MD [...] every 12 hours for 10 days AMOXICILLIN 03145028063 No Longer Active Иван Mooney MD Active VITAMIN C 500 MG CHEW TAB ASCORBIC ACID 41107234748 Active Иван Mooney MD Active PREDNISONE 20 MG TAB 2 po qd x 4 days PREDNISONE 03812055599 No Longer Active Hector Love MD Active HYDROCODONE-ACETAMINOPHEN 5-325 MG TABS 1/2 to 1 po q 4 hours prn pain 11/06 HYDROCODONE-ACETAMINOPHEN 71156448131 No Longer Active Hector Love MD Active FLONASE ALLERGY RELIEF 50 MCG/ACT NASAL SUSP 2 spray each nostril daily prn allergies FLUTICASONE PROPIONATE 65403383870 Active Hector Love MD Active AUGMENTIN 875-125 MG TAB 1 po BID x 10 days AMOXICILLIN-POT CLAVULANATE 68309090269 No Longer Active Hector Love MD Active FLONASE ALLERGY RELIEF 50 MCG/ACT NASAL SUSP 2 sprays each nostril daily PRN allergies FLUTICASONE PROPIONATE 69906610554 No Longer Active Hector Love MD Active AMOXICILLIN 500 MG CAPS 1 cap by mouth three times a day AMOXICILLIN 03571368713 No Longer Active Jillina Lucía NOWAKN Active KEFLEX 500 MG CAP 1 tab po tid CEPHALEXIN 99233919454 No Longer Active Jillina Fradebora GARCIA Active AMOXICILLIN 500 MG TABS 2 tabs twice a day for 10 days AMOXICILLIN 07375217862 No Longer Active Jillina Fragretal SUSTAINABLE DEVELOPMENT POLICY ANALYST Active ZYRTEC ALLERGY 10 MG CAPS 1 po qd CETIRIZINE HCL 72748235514 Active Hector Love MD Active PROGRAF 1 MG CAPS 2 tabs po bid TACROLIMUS 26520693590 Active Hector Love MD Active ZOFRAN 4 MG TABS 1 po q6hr PRN Nausea ONDANSETRON HCL 05474362501 No Longer Active Ramona Diggs LPN Active AMOXICILLIN 500 MG CAPS 2 po BID x 10 days AMOXICILLIN 70527312190 No Longer Active Martha Montejo APRN Active AUGMENTIN 875-125 MG TAB 1 tab by mouth twice daily with food AMOXICILLIN-POT CLAVULANATE 84305828004 No Longer Active Hector Love MD Active LEVAQUIN 500 MG TABS 1 pill by mouth daily LEVOFLOXACIN 00190574859 No Longer Active Jen Crystal MD PhD Active LISINOPRIL 5 MG TABS 1.5 tab qd LISINOPRIL 14580520176 Active Jen Crystal MD PhD Active KETOCONAZOLE 2 % CREA apply twice a day to rash KETOCONAZOLE 27755519077 No Longer Active Hector Love MD Active AUGMENTIN 875-125 MG TAB 1 tab by mouth twice daily with food AMOXICILLIN-POT CLAVULANATE 08902576864 No Longer Active Иван Mooney MD Active LOTRISONE 0.05-1 % CREAM Apply twice a day to affected area 07/19 CLOTRIMAZOLE-BETAMETHASONE 18131020820 No Longer Active Иван Mooney MD Active FEXOFENADINE HCL 180 MG TABS 1 Daily FEXOFENADINE HCL 71139293850 No Longer Active Hector Love MD Active PROGRAF 0.5 MG CAPS Take one by mouth daily with 1 mg TACROLIMUS 31833098313 No Longer Active Hector Love MD Active AMOXICILLIN 500 MG CAPS 2 po BID x 10 days AMOXICILLIN 35759960996 No Longer Active Hector Love MD Active RAPAMUNE 1 MG TABS 3 tabs in the am SIROLIMUS 47536562214 No Longer Active Hector Love MD Active AMOXICILLIN 500 MG CAPS 2 po BID x 10 days AMOXICILLIN 53338289737 No Longer Active Hector Love MD Active LORTAB 5 5-500 MG TABS 1/2 to 1 tablet by mouth every 4 hours as needed for pain HYDROCODONE-ACETAMINOPHEN 77746410993 No Longer Active Hector Love MD Active FLUTICASONE PROPIONATE 50 MCG/ACT SUSP INSTILL 2 SPRAYS IN EACH NOSTRIL Q D FLUTICASONE PROPIONATE 93097364835 No Longer Active Hector Love MD Active PROGRAF 1 MG CAPS 1 po bid TACROLIMUS 15154610176 No Longer Active Hector Love MD Active AMOXICILLIN 875 MG TABS 1 tab by mouth twice daily AMOXICILLIN 53354850538 No Longer Active Hector Love MD Active AMOXICILLIN 500 MG CAPS 2 po BID x 10 days AMOXICILLIN 14987531218 No Longer Active Hector Love MD Active AUGMENTIN 875-125 MG TAB 1 tab by mouth twice daily with food AMOXICILLIN-POT CLAVULANATE 55311031525 No Longer Active Hector Love MD Active AZITHROMYCIN 250 MG TABS 2 po qd x 1 day, then 1 po qd x 4 days AZITHROMYCIN 47017372680 No Longer Active Hector Love MD Active CETIRIZINE HCL 10 MG TABS 1 PO Q D CETIRIZINE HCL 75385301134 No Longer Active Waleska [place] Active PROGRAF 1 MG CAPS 1 po bid PROGRAF 1 MG CAPS 764168 TACROLIMUS Inactive FLUTICASONE PROPIONATE 50 MCG/ACT SUSP INSTILL 2 SPRAYS IN EACH NOSTRIL Q D FLUTICASONE PROPIONATE 50 MCG/ACT SUSP 4026467 FLUTICASONE PROPIONATE Inactive LORTAB 5 5-500 MG TABS 1/2 to 1 tablet by mouth every 4 hours as needed for pain LORTAB 5 5-500 MG TABS HYDROCODONE- ACETAMINOPHEN Inactive RAPAMUNE 1 MG TABS 3 tabs in the am RAPAMUNE 1 MG TABS 763995 SIROLIMUS Inactive PROGRAF 0.5 MG CAPS Take one by mouth daily with 1 mg PROGRAF 0.5 MG CAPS 634083 TACROLIMUS Inactive FEXOFENADINE HCL 180 MG TABS 1 Daily FEXOFENADINE HCL 180 MG TABS 902459 FEXOFENADINE HCL Inactive LOTRISONE 0.05-1 % CREAM Apply twice a day to affected area 07/19 LOTRISONE 0.05-1 % CREAM 751392 CLOTRIMAZOLE-BETAMETHASONE Inactive KETOCONAZOLE 2 % CREA apply twice a day to rash KETOCONAZOLE 2 % CREA 082629 KETOCONAZOLE Inactive AUGMENTIN 875-125 MG TAB 1 tab by mouth twice daily with food AUGMENTIN 875-125 MG TAB 881314 AMOXICILLIN-POT CLAVULANATE Inactive ZOFRAN 4 MG TABS 1 po q6hr PRN Nausea ZOFRAN 4 MG TABS 134140 ONDANSETRON HCL Inactive AMOXICILLIN 500 MG TABS 2 tabs twice a day for 10 days AMOXICILLIN 500 MG TABS 617494 AMOXICILLIN Inactive FLONASE ALLERGY RELIEF 50 MCG/ACT NASAL SUSP 2 sprays each nostril daily PRN allergies FLONASE ALLERGY RELIEF 50 MCG/ACT NASAL SUSP 2833196 FLUTICASONE PROPIONATE Inactive HYDROCODONE-ACETAMINOPHEN 5-325 MG TABS 1/2 to 1 po q 4 hours prn pain 11/06 HYDROCODONE-ACETAMINOPHEN 5-325 MG TABS 174319 HYDROCODONE- ACETAMINOPHEN Inactive AMOXICILLIN 500 MG CAPS 2 po BID x 10 days AMOXICILLIN 500 MG CAPS 337746 AMOXICILLIN Inactive AMOXICILLIN 875 MG TABS 1 tab by mouth twice daily AMOXICILLIN 875 MG TABS 980206 AMOXICILLIN Inactive AMOXICILLIN 500 MG CAPS 2 po BID x 10 days AMOXICILLIN 500 MG CAPS 481167 AMOXICILLIN Inactive AMOXICILLIN 500 MG CAPS 2 po BID x 10 days AMOXICILLIN 500 MG CAPS 451528 AMOXICILLIN Inactive AUGMENTIN 875-125 MG TAB 1 tab by mouth twice daily with food AUGMENTIN 875-125 MG TAB 444111 AMOXICILLIN-POT CLAVULANATE Inactive LEVAQUIN 500 MG TABS 1 pill by mouth daily LEVAQUIN 500 MG TABS 972407 LEVOFLOXACIN Inactive AMOXICILLIN 500 MG CAPS 2 po BID x 10 days AMOXICILLIN 500 MG CAPS 002481 AMOXICILLIN Inactive AMOXICILLIN 500 MG CAPS 1 cap by mouth three times a day AMOXICILLIN 500 MG CAPS 616278 AMOXICILLIN Inactive AUGMENTIN 875-125 MG TAB 1 po BID x 10 days AUGMENTIN 875-125 MG TAB 737111 AMOXICILLIN-POT CLAVULANATE Inactive PREDNISONE 20 MG TAB 2 po qd x 4 days PREDNISONE 20 MG TAB 248954 PREDNISONE Inactive AMOXICILLIN 500 MG TABS Take two tablets by mouth every 12 hours for 10 days AMOXICILLIN 500 MG TABS 506666 AMOXICILLIN Inactive Advance Directives Directive Description Start Date PERMISSION TO SHARE Immunizations Vaccine Administration Date Value Standard Description Seasonal influenza vaccine, injectable, preservative free, for > 3 years old ( Afluria, FluLaval, Fluzone, Fluvirin, Fluarix, Agriflu(>=18 yo)) Fluzone preservative free (>=3 yrs.) [[id number]] Influenza, seasonal, injectable, preservative free Adacel (Tetanus, reduced Diphtheria, and acellular Pertussis Immunization) Adacel [HNP270] tetanus toxoid, reduced diphtheria toxoid, and acellular [...] 0.76-1.46 Encounters Code Encounter Date Provider Facility CPT-40720 Level 3 Est. Patient 09:57:24 CDT Elijahudaydenise Castrejon [facility] CPT-47332 Level 3 Est. Patient 16:31:04 CDT Иван Mooney MD [facility] CPT-77371 Level 4 Est. Patient 12:02:18 CDT Hector Love MD [facility] CPT-53762 Level 3 Est. Patient 16:14:45 CDT Hector Love MD [facility] CPT-04033 Level 3 Est. Patient 16:53:35 CDT Иван Mooney MD [facility] CPT-33739 Level 3 Est. Patient 15:57:13 CDT Martha Motnejo [facility] CPT-49038 Level 3 Est. Patient 14:30:47 FOXING PAINTER Hectro Love MD [facility] CPT-71304 Level 3 Est. Patient 14:50:45 CDT Hector Love MD [facility] CPT-65991 Level 3 Est. Patient 21:17:30 CDT Jen Crystal MD [facility] CPT-83963 Level 3 Est. Patient 09:32:55 CDT Hector Love MD [facility] CPT-11298 Level 3 Est. Patient 15:11:08 FOXING PAINTER Иван Mooney MD [facility] CPT-48991 Level 3 Est. Patient 16:38:53 FOXING PAINTER Hector Love MD [facility] CPT-26205 Level 3 Est. Patient 15:46:05 CDT Hector Love MD [facility] CPT-75089 Level 3 Est. Patient 13:59:39 CDT Hector Love MD [facility] CPT-89120 Level 3 Est. Patient 14:44:46 FOXING PAINTER Hector Love MD [facility] CPT-50783 Level 3 Est. Patient 17:12:27 CDT Hector Love MD [facility] CPT-19188 Level 3 Est. Patient 15:30:32 CDT Hector Love MD [facility] CPT-44610 Level 3 Est. Patient 14:24:52 CDT Иван Moonye MD [facility] CPT-42919 Level 3 Est. Patient 14:08:38 FOXING PAINTER Hector Love MD [facility] Procedures Code Procedure Name Date Entry Date Standard Description CPT-77411 TB Skin Test 09:57:25 CDT CPT-000 Give Appropriate Flu Vaccine 16:22:23 FOXING PAINTER CPT-75447 Free T4 - LAB USE ONLY 11:38:58 CDT CPT-41250 TSH - LAB USE ONLY 11:38:58 CDT CPT-02761 Venipuncture Draw Fee 11:38:58 CDT CPT-56984 Fluzone Quadrivalent Intramuscular Suspension 0.5 ML 16: 12:26 FOXING PAINTER CPT-48098 Immunization Single Admin 16:12:26 FOXING PAINTER CPT-J0561 Bicillin LA 1,200,000 u (PCN G Benzathine) 16:40:23 CDT CPT-89042 Abx/Therapy Injection 16:40:22 CDT CPT-J0561 Bicillin LA 1,200,000 u (PCN G Benzathine) 16:15:35 CDT CPT-22316 Immunization Single Admin 16:11:28 FOXING PAINTER CPT-51131 Fluzone Quadrivalent Intramuscular Suspension 0.5 ML 16: 11:28 FOXING PAINTER CPT-68566 Administration single or combination vaccine inc oral 13 :57:23 CDT CPT-15321 Menactra Intramuscular Injectable 13:57:23 CDT CPT-71370 First Vx Component - Ix admin via ID IM or jet inj without physician counseling 16:42:17 FOXING PAINTER CPT-32115 Fluzone preservative free (>=3 yrs.) 16:42:17 FOXING PAINTER 06/03 CPT-98768 Venipuncture Draw Fee 16:29:01 CDT CPT-92166 Chest 2V Frontal and Lat 16:23:56 CDT CPT-06447 Administration single or combination vaccine inc oral 13 :39:17 FOXING PAINTER CPT-93854 Tdap 13:39:17 FOXING PAINTER
--- OUTSIDE RECORDS SUMMARY | 2017-11-06 01:19 | XMS REPORT | Clinical Summary ---
Author Author Admin, [facility] Organization [facility] Address Unknown Phone Unavailable Allergies, Adverse Reactions, [...] Hector Love MD Cough COUGH 786.2 Resolved Hecotr Love MD Cough COSTOCHRONDRITIS 733.6 Resolved Hector [...] Gastroenteritis, viral, acute 008.8 Resolved Martha Montejo [employer]ULTANT Intestinal infection due to other organism, not [...] Upper respiratory infection, viral 465.9 Active Hector Loev MD Acute upper respiratory infections of unspecified site Pharyngitis 462 Active Иван Mooney MD Acute pharyngitis Pre employment physical examination V70.0 Active Manish Castrejon BUSINESS OBJECTS CONSULTANT Routine general medical examination at a health care facility Exposure to mononucleosis V01.79 Active Manish Castrejon BUSINESS OBJECTS CONSULTANT Contact with or exposure to other viral [...] Gastroenteritis, viral, acute ICD-008.8 Inactive Martha Montejo BUSINESS OBJECTS CONSULTANT Bronchitis ICD-490 Inactive Hector Love MD 2014 Pharyngitis ICD-462 Inactive Hector Love MD Ingrown toenail ICD-703.0 Inactive Hector Love MD Ingrown toenail, right ICD-703.0 Inactive Hector Love MD Medication List Medication Instructions Start Date Stop Date Generic Name NDC Status Provider Patient Instruction AMOXICILLIN 500 MG TABS Take two tablets by mouth every 12 hours for 10 days AMOXICILLIN 29556731343 No Longer Active Иван Mooney MD Active VITAMIN C 500 MG CHEW TAB ASCORBIC ACID 06950395105 Active Иван Mooney MD Active PREDNISONE 20 MG TAB 2 po qd x 4 days PREDNISONE 93617129096 No Longer Active Hector Love MD Active HYDROCODONE-ACETAMINOPHEN 5-325 MG TABS 1/2 to 1 po q 4 hours prn pain 11/06 HYDROCODONE-ACETAMINOPHEN 06402725269 No Longer Active Hector Love MD Active FLONASE ALLERGY RELIEF 50 MCG/ACT NASAL SUSP 2 spray each nostril daily prn allergies FLUTICASONE PROPIONATE 02688741627 Active Hector Love MD Active AUGMENTIN 875-125 MG TAB 1 po BID x 10 days AMOXICILLIN-POT CLAVULANATE 49593938811 No Longer Active Hector Love MD Active FLONASE ALLERGY RELIEF 50 MCG/ACT NASAL SUSP 2 sprays each nostril daily PRN allergies FLUTICASONE PROPIONATE 55619908015 No Longer Active Hector Love MD Active AMOXICILLIN 500 MG CAPS 1 cap by mouth three times a day AMOXICILLIN 12331966794 No Longer Active Jillina Frazell BUSINESS OB[employer]S CONSULTANT Active KEFLEX 500 MG CAP 1 tab po tid CEPHALEXIN 36772262094 No Longer Active Jillina Frazell BUSINESS OB[employer]S CONSULTANT Active AMOXICILLIN 500 MG TABS 2 tabs twice a day for 10 days AMOXICILLIN 91343376278 No Longer Active Jillina Frazell BUSINESS OBJECTS CONSULTANT Active ZYRTEC ALLERGY 10 MG CAPS 1 po qd CETIRIZINE HCL 48848152762 Active Hector Love MD Active PROGRAF 1 MG CAPS 2 tabs po bid TACROLIMUS 51183728129 Active Hector Love MD Active ZOFRAN 4 MG TABS 1 po q6hr PRN Nausea ONDANSETRON HCL 54181754746 No Longer Active Ramona Diggs LPN Active AMOXICILLIN 500 MG CAPS 2 po BID x 10 days AMOXICILLIN 64548197597 No Longer Active Martha Montejo BUSINESS OB[employer]S CONSULTANT Active AUGMENTIN 875-125 MG TAB 1 tab by mouth twice daily with food AMOXICILLIN-POT CLAVULANATE 90627928908 No Longer Active Hector Love MD Active LEVAQUIN 500 MG TABS 1 pill by mouth daily LEVOFLOXACIN 54875744889 No Longer Active Jen Crystal MD PhD Active LISINOPRIL 5 MG TABS 1.5 tab qd LISINOPRIL 43309301219 Active Jen Crystal MD PhD Active KETOCONAZOLE 2 % CREA apply twice a day to rash KETOCONAZOLE 05139723741 No Longer Active Hector Love MD Active AUGMENTIN 875-125 MG TAB 1 tab by mouth twice daily with food AMOXICILLIN-POT CLAVULANATE 72655295627 No Longer Active Иван Mooney MD Active LOTRISONE 0.05-1 % CREAM Apply twice a day to affected area 07/19 CLOTRIMAZOLE-BETAMETHASONE 57345853148 No Longer Active Иван Mooney MD Active FEXOFENADINE HCL 180 MG TABS 1 Daily FEXOFENADINE HCL 16627433836 No Longer Active Hector Love MD Active PROGRAF 0.5 MG CAPS Take one by mouth daily with 1 mg TACROLIMUS 71494463438 No Longer Active Hector Love MD Active AMOXICILLIN 500 MG CAPS 2 po BID x 10 days AMOXICILLIN 40647220743 No Longer Active Hector Love MD Active RAPAMUNE 1 MG TABS 3 tabs in the am SIROLIMUS 37676917136 No Longer Active Hector Love MD Active AMOXICILLIN 500 MG CAPS 2 po BID x 10 days AMOXICILLIN 51896708974 No Longer Active Hector Love MD Active LORTAB 5 5-500 MG TABS 1/2 to 1 tablet by mouth every 4 hours as needed for pain HYDROCODONE-ACETAMINOPHEN 03332541348 No Longer Active Hector Love MD Active FLUTICASONE PROPIONATE 50 MCG/ACT SUSP INSTILL 2 SPRAYS IN EACH NOSTRIL Q D FLUTICASONE PROPIONATE 62610486885 No Longer Active Hector Love MD Active PROGRAF 1 MG CAPS 1 po bid TACROLIMUS 72587377153 No Longer Active Hector Love MD Active AMOXICILLIN 875 MG TABS 1 tab by mouth twice daily AMOXICILLIN 00873995716 No Longer Active Hector Love MD Active AMOXICILLIN 500 MG CAPS 2 po BID x 10 days AMOXICILLIN 67682013928 No Longer Active Hector Love MD Active AUGMENTIN 875-125 MG TAB 1 tab by mouth twice daily with food AMOXICILLIN-POT CLAVULANATE 63047780226 No Longer Active Hector Love MD Active AZITHROMYCIN 250 MG TABS 2 po qd x 1 day, then 1 po qd x 4 days AZITHROMYCIN 86174855101 No Longer Active Hector Love MD Active CETIRIZINE HCL 10 MG TABS 1 PO Q D CETIRIZINE HCL 05425235464 No Longer Active Waleska Austin Active PROGRAF 1 MG CAPS 1 po bid PROGRAF 1 MG CAPS 993007 TACROLIMUS Inactive FLUTICASONE PROPIONATE 50 MCG/ACT SUSP INSTILL 2 SPRAYS IN EACH NOSTRIL Q D FLUTICASONE PROPIONATE 50 MCG/ACT SUSP 5335818 FLUTICASONE PROPIONATE Inactive LORTAB 5 5-500 MG TABS 1/2 to 1 tablet by mouth every 4 hours as needed for pain LORTAB 5 5-500 MG TABS HYDROCODONE- ACETAMINOPHEN Inactive RAPAMUNE 1 MG TABS 3 tabs in the am RAPAMUNE 1 MG TABS 623786 SIROLIMUS Inactive PROGRAF 0.5 MG CAPS Take one by mouth daily with 1 mg PROGRAF 0.5 MG CAPS 191686 TACROLIMUS Inactive FEXOFENADINE HCL 180 MG TABS 1 Daily FEXOFENADINE HCL 180 MG TABS 073258 FEXOFENADINE HCL Inactive LOTRISONE 0.05-1 % CREAM Apply twice a day to affected area 07/19 LOTRISONE 0.05-1 % CREAM 236573 CLOTRIMAZOLE-BETAMETHASONE Inactive KETOCONAZOLE 2 % CREA apply twice a day to rash KETOCONAZOLE 2 % CREA 449392 KETOCONAZOLE Inactive AUGMENTIN 875-125 MG TAB 1 tab by mouth twice daily with food AUGMENTIN 875-125 MG TAB 435061 AMOXICILLIN-POT CLAVULANATE Inactive ZOFRAN 4 MG TABS 1 po q6hr PRN Nausea ZOFRAN 4 MG TABS 487271 ONDANSETRON HCL Inactive AMOXICILLIN 500 MG TABS 2 tabs twice a day for 10 days AMOXICILLIN 500 MG TABS 896697 AMOXICILLIN Inactive FLONASE ALLERGY RELIEF 50 MCG/ACT NASAL SUSP 2 sprays each nostril daily PRN allergies FLONASE ALLERGY RELIEF 50 MCG/ACT NASAL SUSP 3005856 FLUTICASONE PROPIONATE Inactive HYDROCODONE-ACETAMINOPHEN 5-325 MG TABS 1/2 to 1 po q 4 hours prn pain 11/06 HYDROCODONE-ACETAMINOPHEN 5-325 MG TABS 586753 HYDROCODONE- ACETAMINOPHEN Inactive AMOXICILLIN 500 MG CAPS 2 po BID x 10 days AMOXICILLIN 500 MG CAPS 874767 AMOXICILLIN Inactive AMOXICILLIN 875 MG TABS 1 tab by mouth twice daily AMOXICILLIN 875 MG TABS 773748 AMOXICILLIN Inactive AMOXICILLIN 500 MG CAPS 2 po BID x 10 days AMOXICILLIN 500 MG CAPS 731643 AMOXICILLIN Inactive AMOXICILLIN 500 MG CAPS 2 po BID x 10 days AMOXICILLIN 500 MG CAPS 939788 AMOXICILLIN Inactive AUGMENTIN 875-125 MG TAB 1 tab by mouth twice daily with food AUGMENTIN 875-125 MG TAB 522846 AMOXICILLIN-POT CLAVULANATE Inactive LEVAQUIN 500 MG TABS 1 pill by mouth daily LEVAQUIN 500 MG TABS 700743 LEVOFLOXACIN Inactive AMOXICILLIN 500 MG CAPS 2 po BID x 10 days AMOXICILLIN 500 MG CAPS 933470 AMOXICILLIN Inactive AMOXICILLIN 500 MG CAPS 1 cap by mouth three times a day AMOXICILLIN 500 MG CAPS 973135 AMOXICILLIN Inactive AUGMENTIN 875-125 MG TAB 1 po BID x 10 days AUGMENTIN 875-125 MG TAB 447312 AMOXICILLIN-POT CLAVULANATE Inactive PREDNISONE 20 MG TAB 2 po qd x 4 days PREDNISONE 20 MG TAB 958271 PREDNISONE Inactive AMOXICILLIN 500 MG TABS Take two tablets by mouth every 12 hours for 10 days AMOXICILLIN 500 MG TABS 207219 AMOXICILLIN Inactive Advance Directives Directive Description Start Date PERMISSION TO SHARE Immunizations Vaccine Administration Date Value Standard Description Seasonal influenza vaccine, injectable, preservative free, for > 3 years old ( Afluria, FluLaval, Fluzone, Fluvirin, Fluarix, Agriflu(>=18 yo)) Fluzone preservative free (>=3 yrs.) [RYA209] Influenza, seasonal, injectable, preservative free Adacel (Tetanus, reduced Diphtheria, and acellular Pertussis Immunization) Adacel [KYA547] tetanus toxoid, reduced diphtheria toxoid, and acellular [...] 0.76-1.46 Encounters Code Encounter Date Provider Facility CPT-74364 Level 3 Est. Patient 16:06:03 CDT Manish Castrejon [facility] CPT-54312 Level 3 Est. Patient 09:57:24 CDT Manish Castrejon [facility] CPT-01706 Level 3 Est. Patient 16:31:04 CDT Иван Mooney MD [facility] CPT-24329 Level 4 Est. Patient 12:02:18 CDT Hector Love MD [facility] CPT-91915 Level 3 Est. Patient 16:14:45 CDT Hector Love MD [facility] CPT-53374 Level 3 Est. Patient 16:53:35 CDT Иван Mooney MD [facility] CPT-88958 Level 3 Est. Patient 15:57:13 CDT Martha Montejo [facility] CPT-60475 Level 3 Est. Patient 14:30:47 [employer] Hector Love MD [facility] CPT-46616 Level 3 Est. Patient 14:50:45 CDT Hector Love MD [facility] CPT-60939 Level 3 Est. Patient 21:17:30 CDT Jen Crystal MD, PhD [facility] CPT-38049 Level 3 Est. Patient 09:32:55 CDT Hector Love MD [facility] CPT-65993 Level 3 Est. Patient 15:11:08 [employer] Иван Mooney MD [facility] CPT-48155 Level 3 Est. Patient 16:38:53 [employer] Hector Love MD [facility] CPT-66910 Level 3 Est. Patient 15:46:05 CDT Hector Love MD [facility] CPT-36630 Level 3 Est. Patient 13:59:39 CDT Hector Love MD [facility] CPT-41191 Level 3 Est. Patient 14:44:46 [employer] Hector Love MD [facility] CPT-67366 Level 3 Est. Patient 17:12:27 CDT Hector Love MD [facility] CPT-84399 Level 3 Est. Patient 15:30:32 CDT Hector Love MD [facility] CPT-18187 Level 3 Est. Patient 14:24:52 CDT Иван Mooney MD [facility] CPT-62466 Level 3 Est. Patient 14:08:38 [employer] Hector Love MD [facility] Procedures Code Procedure Name Date Entry Date Standard Description CPT-03353 Venipuncture Draw Fee 16:18:26 CDT CPT-83160 TB Skin Test 09:57:25 CDT CPT-000 Give Appropriate Flu Vaccine 16:22:23 [employer] CPT-66813 Free T4 - LAB USE ONLY 11:38:58 CDT CPT-51884 TSH - LAB USE ONLY 11:38:58 CDT CPT-29206 Venipuncture Draw Fee 11:38:58 CDT CPT-79418 Fluzone Quadrivalent Intramuscular Suspension 0.5 ML 16: 12:26 [employer] CPT-23072 Immunization Single Admin 16:12:26 [employer] CPT-J0561 Bicillin LA 1,200,000 u (PCN G Benzathine) 16:40:23 CDT CPT-22868 Abx/Therapy Injection 16:40:22 CDT CPT-J0561 Bicillin LA 1,200,000 u (PCN G Benzathine) 16:15:35 CDT CPT-11731 Immunization Single Admin 16:11:28 [employer] CPT-06333 Fluzone Quadrivalent Intramuscular Suspension 0.5 ML 16: 11:28 [employer] CPT-33802 Administration single or combination vaccine inc oral 13 :57:23 CDT CPT-00632 Menactra Intramuscular Injectable 13:57:23 CDT CPT-69235 First Vx Component - Ix admin via ID IM or jet inj without physician counseling 16:42:17 [employer] CPT-20101 Fluzone preservative free (>=3 yrs.) 16:42:17 [employer] 06/03 CPT-95414 Venipuncture Draw Fee 16:29:01 CDT CPT-26488 Chest 2V Frontal and Lat 16:23:56 CDT CPT-00785 Administration single or combination vaccine inc oral 13 :39:17 [employer] CPT-32410 Tdap 13:39:17 [employer]
--- OUTSIDE RECORDS SUMMARY | 2017-11-06 01:20 | XMS REPORT | Clinical Summary ---
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 facility Exposure to mononucleosis V01.79 Active Manish Castrejon [employer] Contact with or exposure to other viral diseases Stress at work V62.1 Active Manish Castrejon [employer] Adverse effects of work environment BRONCHITIS, ACUTE [...] Gastroenteritis, viral, acute ICD-008.8 Inactive Martha Montejo [employer] FEVER UNSPECIFIED ICD-780.60 Inactive Hector Love MD Pharyngitis ICD-462 Inactive Hector Love MD Ingrown toenail ICD-703.0 Inactive Hector Love MD Ingrown toenail, right ICD-703.0 Inactive Hector Love MD Bronchitis ICD-490 Inactive Hector Love MD 2014 Medication List Medication Instructions Start Date Stop Date Generic Name NDC Status Provider Patient Instruction PREDNISONE 20 MG TAB 1 tablet daily x 2 days PREDNISONE [id number] No Longer Active Jillina Frazell [employer] Active AMOXICILLIN 500 MG TABS Take two tablets by mouth every 12 hours for 10 days AMOXICILLIN 51437274626 No Longer Active Иван Mooney MD Active VITAMIN C 500 MG CHEW TAB ASCORBIC ACID 77939161363 Active Иван Mooney MD Active PREDNISONE 20 MG TAB 2 po qd x 4 days PREDNISONE 87550520532 No Longer Active Hector Love MD Active HYDROCODONE-ACETAMINOPHEN 5-325 MG TABS 1/2 to 1 po q 4 hours prn pain 11/06 HYDROCODONE-ACETAMINOPHEN 36122249284 No Longer Active Hector Love MD Active FLONASE ALLERGY RELIEF 50 MCG/ACT NASAL SUSP 2 spray each nostril daily prn allergies FLUTICASONE PROPIONATE 53704948342 Active Hector Love MD Active AUGMENTIN 875-125 MG TAB 1 po BID x 10 days AMOXICILLIN-POT CLAVULANATE 59858471375 No Longer Active Hector Love MD Active FLONASE ALLERGY RELIEF 50 MCG/ACT NASAL SUSP 2 sprays each nostril daily PRN allergies FLUTICASONE PROPIONATE 58941742101 No Longer Active Hector Love MD Active AMOXICILLIN 500 MG CAPS 1 cap by mouth three times a day AMOXICILLIN 69755787466 No Longer Active Jillina Frazell [employer] Active KEFLEX 500 MG CAP 1 tab po tid CEPHALEXIN 36186449435 No Longer Active Jillina Frazell [employer] Active AMOXICILLIN 500 MG TABS 2 tabs twice a day for 10 days AMOXICILLIN 40586849468 No Longer Active Jillina Frazell [employer] Active ZYRTEC ALLERGY 10 MG CAPS 1 po qd CETIRIZINE HCL 44295394513 Active Hector Love MD Active PROGRAF 1 MG CAPS 2 tabs po bid TACROLIMUS 91242984913 Active Hector Love MD Active ZOFRAN 4 MG TABS 1 po q6hr PRN Nausea ONDANSETRON HCL 55092127884 No Longer Active Ramona Diggs LPN Active AMOXICILLIN 500 MG CAPS 2 po BID x 10 days AMOXICILLIN 37182008744 No Longer Active Martha Ramírezhenrique [employer] Active AUGMENTIN 875-125 MG TAB 1 tab by mouth twice daily with food AMOXICILLIN-POT CLAVULANATE 33697272616 No Longer Active Hector Love MD Active LEVAQUIN 500 MG TABS 1 pill by mouth daily LEVOFLOXACIN 26593920005 No Longer Active Jen Crystal MD PhD Active LISINOPRIL 5 MG TABS 1.5 tab qd LISINOPRIL 56236821834 Active Jen Crystal MD PhD Active KETOCONAZOLE 2 % CREA apply twice a day to rash KETOCONAZOLE 67138384312 No Longer Active Hector Love MD Active AUGMENTIN 875-125 MG TAB 1 tab by mouth twice daily with food AMOXICILLIN-POT CLAVULANATE 82398992558 No Longer Active Иван Mooney MD Active LOTRISONE 0.05-1 % CREAM Apply twice a day to affected area 07/19 CLOTRIMAZOLE-BETAMETHASONE 81501639212 No Longer Active Иван Mooney MD Active FEXOFENADINE HCL 180 MG TABS 1 Daily FEXOFENADINE HCL 10421604991 No Longer Active Hector Love MD Active PROGRAF 0.5 MG CAPS Take one by mouth daily with 1 mg TACROLIMUS 62248701937 No Longer Active Hector Love MD Active AMOXICILLIN 500 MG CAPS 2 po BID x 10 days AMOXICILLIN 67230000619 No Longer Active Hector Love MD Active RAPAMUNE 1 MG TABS 3 tabs in the am SIROLIMUS 91510937861 No Longer Active Hector Love MD Active AMOXICILLIN 500 MG CAPS 2 po BID x 10 days AMOXICILLIN 28730280745 No Longer Active Hector Love MD Active LORTAB 5 5-500 MG TABS 1/2 to 1 tablet by mouth every 4 hours as needed for pain HYDROCODONE-ACETAMINOPHEN 46787668659 No Longer Active Hector Love MD Active FLUTICASONE PROPIONATE 50 MCG/ACT SUSP INSTILL 2 SPRAYS IN EACH NOSTRIL Q D FLUTICASONE PROPIONATE 97010187080 No Longer Active Hector Love MD Active PROGRAF 1 MG CAPS 1 po bid TACROLIMUS 70775010069 No Longer Active Hector Love MD Active AMOXICILLIN 875 MG TABS 1 tab by mouth twice daily AMOXICILLIN 29455035055 No Longer Active Hector Love MD Active AMOXICILLIN 500 MG CAPS 2 po BID x 10 days AMOXICILLIN 58008926854 No Longer Active Hector Love MD Active AUGMENTIN 875-125 MG TAB 1 tab by mouth twice daily with food AMOXICILLIN-POT CLAVULANATE 69160778267 No Longer Active Hector Love MD Active AZITHROMYCIN 250 MG TABS 2 po qd x 1 day, then 1 po qd x 4 days AZITHROMYCIN 68062219323 No Longer Active Hector Love MD Active CETIRIZINE HCL 10 MG TABS 1 PO Q D CETIRIZINE HCL 46147882401 No Longer Active Waleska Peshtigo Active PROGRAF 1 MG CAPS 1 po bid PROGRAF 1 MG CAPS 989286 TACROLIMUS Inactive FLUTICASONE PROPIONATE 50 MCG/ACT SUSP INSTILL 2 SPRAYS IN EACH NOSTRIL Q D FLUTICASONE PROPIONATE 50 MCG/ACT SUSP 5557107 FLUTICASONE PROPIONATE Inactive LORTAB 5 5-500 MG TABS 1/2 to 1 tablet by mouth every 4 hours as needed for pain LORTAB 5 5-500 MG TABS 738355 HYDROCODONE- ACETAMINOPHEN Inactive RAPAMUNE 1 MG TABS 3 tabs in the am RAPAMUNE 1 MG TABS 945562 SIROLIMUS Inactive PROGRAF 0.5 MG CAPS Take one by mouth daily with 1 mg PROGRAF 0.5 MG CAPS 223087 TACROLIMUS Inactive FEXOFENADINE HCL 180 MG TABS 1 Daily FEXOFENADINE HCL 180 MG TABS 636547 FEXOFENADINE HCL Inactive LOTRISONE 0.05-1 % CREAM Apply twice a day to affected area 07/19 LOTRISONE 0.05-1 % CREAM 856684 CLOTRIMAZOLE-BETAMETHASONE Inactive KETOCONAZOLE 2 % CREA apply twice a day to rash KETOCONAZOLE 2 % CREA 712486 KETOCONAZOLE Inactive AUGMENTIN 875-125 MG TAB 1 tab by mouth twice daily with food AUGMENTIN 875-125 MG TAB 407550 AMOXICILLIN-POT CLAVULANATE Inactive ZOFRAN 4 MG TABS 1 po q6hr PRN Nausea ZOFRAN 4 MG TABS 019897 ONDANSETRON HCL Inactive AMOXICILLIN 500 MG TABS 2 tabs twice a day for 10 days AMOXICILLIN 500 MG TABS 634199 AMOXICILLIN Inactive FLONASE ALLERGY RELIEF 50 MCG/ACT NASAL SUSP 2 sprays each nostril daily PRN allergies FLONASE ALLERGY RELIEF 50 MCG/ACT NASAL SUSP 5890430 FLUTICASONE PROPIONATE Inactive HYDROCODONE-ACETAMINOPHEN 5-325 MG TABS 1/2 to 1 po q 4 hours prn pain 11/06 HYDROCODONE-ACETAMINOPHEN 5-325 MG TABS 823419 HYDROCODONE- ACETAMINOPHEN Inactive PREDNISONE 20 MG TAB 1 tablet daily x 2 days PREDNISONE 20 MG TAB 395831 PREDNISONE Inactive AMOXICILLIN 500 MG CAPS 2 po BID x 10 days AMOXICILLIN 500 MG CAPS 748922 AMOXICILLIN Inactive AMOXICILLIN 875 MG TABS 1 tab by mouth twice daily AMOXICILLIN 875 MG TABS 137160 AMOXICILLIN Inactive AMOXICILLIN 500 MG CAPS 2 po BID x 10 days AMOXICILLIN 500 MG CAPS 599775 AMOXICILLIN Inactive AMOXICILLIN 500 MG CAPS 2 po BID x 10 days AMOXICILLIN 500 MG CAPS 559558 AMOXICILLIN Inactive AUGMENTIN 875-125 MG TAB 1 tab by mouth twice daily with food AUGMENTIN 875-125 MG TAB 222246 AMOXICILLIN-POT CLAVULANATE Inactive LEVAQUIN 500 MG TABS 1 pill by mouth daily LEVAQUIN 500 MG TABS 656989 LEVOFLOXACIN Inactive AMOXICILLIN 500 MG CAPS 2 po BID x 10 days AMOXICILLIN 500 MG CAPS 213975 AMOXICILLIN Inactive AMOXICILLIN 500 MG CAPS 1 cap by mouth three times a day AMOXICILLIN 500 MG CAPS 455001 AMOXICILLIN Inactive AUGMENTIN 875-125 MG TAB 1 po BID x 10 days AUGMENTIN 875-125 MG TAB 920320 AMOXICILLIN-POT CLAVULANATE Inactive PREDNISONE 20 MG TAB 2 po qd x 4 days PREDNISONE 20 MG TAB 056941 PREDNISONE Inactive AMOXICILLIN 500 MG TABS Take two tablets by mouth every 12 hours for 10 days AMOXICILLIN 500 MG TABS 957078 AMOXICILLIN Inactive Advance Directives Directive Description Start Date PERMISSION TO SHARE Immunizations Vaccine Administration Date Value Standard Description Seasonal influenza vaccine, injectable, preservative free, for > 3 years old ( Afluria, FluLaval, Fluzone, Fluvirin, Fluarix, Agriflu(>=18 yo)) Fluzone preservative free (>=3 yrs.) [KGD896] Influenza, seasonal, injectable, preservative free Adacel (Tetanus, reduced Diphtheria, and acellular Pertussis Immunization) Adacel [HTB037] tetanus toxoid, reduced diphtheria toxoid, and acellular pertussis vaccine, adsorbed DPT immunization #5 DTaP oral polio vaccine (OPV) #4 Historical poliovirus vaccine, unspecified formulation MMR (measles, mumps, rubella) virus immunization #2 MMR Hemophilus influenza B immunization #4 Hibtitre Haemophilus influenzae type b vaccine, conjugate unspecified formulation MMR (measles, mumps, rubella) virus immunization #1 MMR DPT immunization #4 DTaP oral polio vaccine (OPV) #3 Historical poliovirus vaccine, unspecified formulation Hemophilus influenza B immunization #3 Hibtitre Haemophilus influenzae type b vaccine, conjugate unspecified formulation hepatitis B vaccine #3 Historical [...] influenzae type b vaccine, conjugate unspecified formulation Vital Signs Date Name Value [...] Panel - Chemistry sodium, serum 137 mmol/L 077-559 4377/08/14 carbon dioxide, venous blood 29.7 mmol/L 21.0-32.0 potassium, serum 4.3 mmol/L 3.5-5.2 chloride, serum 99 mmol/L 98-107 blood glucose 123 mg/dL 65-110 urea nitrogen, blood 12 mg/dL 7-18 creatinine, serum 0.84 mg/dL 0.60-1.30 alanine aminotransferase (SGPT), serum 48 U/L 12-78 aspartate aminotransferase (SGOT), serum 26 U/L 15-37 calcium, serum 9.4 mg/dL 8.5-10.1 bilirubin, serum, total 1.60 mg/dL 0.00-1.00 cholesterol, serum 141 mg/dL 453-851 5918/08/14 triglyceride, serum, fasting 54 mg/dL 30-200 HDL cholesterol, serum 50 mg/dL 32-60 LDL cholesterol, serum 80 mg/dL 0-130 Lab Report: CBC W/DIFF, Comp. Metabolic Panel, Magnesium, Phos, Lipid Panel - Hematology erythrocyte (RBC) count 5.64 10^6/MM^3 10*6/mm3 4.50-6.50 lymphocytes as percent of blood leukocytes 32.5 % 20.5-51.1 monocytes as percent of blood leukocytes 7.6 % 1.7-9.3 neutrophils as percent of blood leukocytes 54.6 % 42.2-75.2 leukocyte count, blood 7.8 10^3/MM^3 10*3/mm3 4.6-10.2 hemoglobin, blood 16.7 g/dL 14.0-18.0 hematocrit, blood [...] Lab Report: UADIP W/MICRO, AUTO - Urinalysis urine color Yellow Colorless;Lightyellow;Straw;Yellow appearance, urine Clear Clear specific gravity, urine 1.025 1.000-1.030 pH, urine, semiquantitative 6.0 5.0-8.5 urobilinogen, urine, semiquantitative (dipstick) 0.2 E.U./dL Normal leukocyte esterase, urine, by dipstick Negative Negative nitrite, urine, semiquantitative Negative Negative glucose, urine, semiquantitative Negative Negative ketones, urine, by test strip Negative Negative bilirubin, urine Negative Negative Lab Report: VITAMIN D, 25-HYDROXY/26114 - Chemistry vitamin D 25-hydroxy, serum 18 ng/mL 30-100 Encounters Code Encounter Date Provider Facility CPT-12402 Level 3 Est. Patient 11:35:07 CDT Manish Castrejon [facility] CPT-73061 Level 3 Est. Patient 17:22:36 [facility] Level 3 Est. Patient 16:06:03 CDT Manish Castrejon [facility] CPT-34450 Level 3 Est. Patient 09:57:24 CDT Manish Castrejon [facility] CPT-76717 Level 3 Est. Patient 16:31:04 CDT Иван Mooney MD [facility] CPT-78694 Level 4 Est. Patient 12:02:18 CDT Hector Love MD [facility] CPT-50738 Level 3 Est. Patient 16:14:45 CDT Hector Love MD [facility] CPT-93039 Level 3 Est. Patient 16:53:35 CDT Иван Mooney MD [facility] CPT-78644 Level 3 Est. Patient 15:57:13 CDT [facility]05204 Level 3 Est. Patient 14:30:47 RELAY TECHNICIAN Hector Love MD [facility] CPT-64542 Level 3 Est. Patient 14:50:45 CDT Hector Love MD [facility] CPT-87315 Level 3 Est. Patient 21:17:30 CDT Jen Crystal MD PhD [facility] CPT-76272 Level 3 Est. Patient 09:32:55 CDT Hectro Love MD [facility] CPT-58343 Level 3 Est. Patient 15:11:08 RELAY TECHNICIAN Иван Mooney MD [facility] CPT-30048 Level 3 Est. Patient 16:38:53 RELAY TECHNICIAN Hector Love MD [facility] CPT-74835 Level 3 Est. Patient 15:46:05 CDT Hector Love MD [facility] CPT-54328 Level 3 Est. Patient 13:59:39 CDT Hector Love MD [facility] CPT-36383 Level 3 Est. Patient 14:44:46 RELAY TECHNICIAN Hector Love MD [facility] CPT-60354 Level 3 Est. Patient 17:12:27 CDT Hector Love MD [facility] CPT-21492 Level 3 Est. Patient 15:30:32 CDT Hector Love MD [facility] CPT-88225 Level 3 Est. Patient 14:24:52 CDT Иван Mooney MD [facility] CPT-79209 Level 3 Est. Patient 14:08:38 RELAY TECHNICIAN Hector Love MD [facility] Procedures Code Procedure Name Date Entry Date Standard Description CPT-35706 Venipuncture Draw Fee 16:18:26 CDT CPT-06186 TB Skin Test 09:57:25 CDT CPT-000 Give Appropriate Flu Vaccine 16:22:23 RELAY TECHNICIAN CPT-96079 Free T4 - LAB USE ONLY 11:38:58 CDT CPT-89555 TSH - LAB USE ONLY 11:38:58 CDT CPT-96298 Venipuncture Draw Fee 11:38:58 CDT CPT-12672 Fluzone Quadrivalent Intramuscular Suspension 0.5 ML 16: 12:26 RELAY TECHNICIAN CPT-92798 Immunization Single Admin 16:12:26 RELAY TECHNICIAN CPT-J0561 Bicillin LA 1,200,000 u (PCN G Benzathine) 16:40:23 CDT CPT-92131 Abx/Therapy Injection 16:40:22 CDT CPT-J0561 Bicillin LA 1,200,000 u (PCN G Benzathine) 16:15:35 CDT CPT-69518 Immunization Single Admin 16:11:28 RELAY TECHNICIAN CPT-45055 Fluzone Quadrivalent Intramuscular Suspension 0.5 ML 16: 11:28 RELAY TECHNICIAN CPT-36895 Administration single or combination vaccine inc oral 13 :57:23 CDT CPT-42693 Menactra Intramuscular Injectable 13:57:23 CDT CPT-67213 First Vx Component - Ix admin via ID IM or jet inj without physician counseling 16:42:17 RELAY TECHNICIAN CPT-78628 Fluzone preservative free (>=3 yrs.) 16:42:17 RELAY TECHNICIAN 06/03 CPT-02408 Venipuncture Draw Fee 16:29:01 CDT CPT-53331 Chest 2V Frontal and Lat 16:23:56 CDT CPT-60070 Administration single or combination vaccine inc oral 13 :39:17 RELAY TECHNICIAN CPT-93117 Tdap 13:39:17 RELAY TECHNICIAN
--- OUTSIDE RECORDS SUMMARY | 2017-11-06 01:20 | XMS REPORT | Clinical Summary ---
Author Author Admin, LAMBERT Organization [employer] Address Unknown Phone Unavailable Allergies, Adverse [...] Acute upper respiratory infections of unspecified site BRONCHITIS, ACUTE ICD-466.0 Inactive Hector Love MD [...] viral, acute ICD-008.8 Inactive Martha Montejo APRN Pharyngitis ICD-462 Inactive Hector Love MD Ingrown toenail ICD-703.0 Inactive Hector Love MD Ingrown toenail, right ICD-703.0 Inactive Hector Love MD Bronchitis ICD-490 Inactive Hector Love MD 2014 Medication List Medication Instructions Start Date Stop Date Generic Name NDC Status Provider Patient Instruction PREDNISONE 20 MG TAB 2 po qd x 4 days PREDNISONE 24269922082 Active Hector Love MD Active HYDROCODONE-ACETAMINOPHEN 5-325 MG TABS 1/2 to 1 po q 4 hours prn pain 11/06 HYDROCODONE-ACETAMINOPHEN 44675142359 No Longer Active Hector Love MD Active FLONASE ALLERGY RELIEF 50 MCG/ACT NASAL SUSP 2 spray each nostril daily prn allergies FLUTICASONE PROPIONATE 55798185030 Active Hector Love MD Active AUGMENTIN 875-125 MG TAB 1 po BID x 10 days AMOXICILLIN-POT CLAVULANATE 65648957094 No Longer Active Hector Love MD Active FLONASE ALLERGY RELIEF 50 MCG/ACT NASAL SUSP 2 sprays each nostril daily PRN allergies FLUTICASONE PROPIONATE 64764507395 No Longer Active Hector Love MD Active AMOXICILLIN 500 MG CAPS 1 cap by mouth three times a day AMOXICILLIN 43907750906 No Longer Active Jillina Frazell GUIDANCE DIRECTOR Active KEFLEX 500 MG CAP 1 tab po tid CEPHALEXIN 43150216589 No Longer Active Jillina Frazell GUIDANCE DIRECTOR Active AMOXICILLIN 500 MG TABS 2 tabs twice a day for 10 days AMOXICILLIN 31596366421 No Longer Active Jillina Frazell GUIDANCE DIRECTOR Active ZYRTEC ALLERGY 10 MG CAPS 1 po qd CETIRIZINE HCL 10138673537 Active Hector Love MD Active PROGRAF 1 MG CAPS 2 tabs po bid TACROLIMUS 78199023703 Active Hector Love MD Active ZOFRAN 4 MG TABS 1 po q6hr PRN Nausea ONDANSETRON HCL 65741762833 No Longer Active Ramona Diggs LPN Active AMOXICILLIN 500 MG CAPS 2 po BID x 10 days AMOXICILLIN 91787337982 No Longer Active Martha Montejo GUIDANCE DIRECTOR Active AUGMENTIN 875-125 MG TAB 1 tab by mouth twice daily with food AMOXICILLIN-POT CLAVULANATE 57425939370 No Longer Active Hector Love MD Active LEVAQUIN 500 MG TABS 1 pill by mouth daily LEVOFLOXACIN 46451523201 No Longer Active Jen Crystal MD PhD Active LISINOPRIL 5 MG TABS 1.5 tab qd LISINOPRIL 80736433510 Active Jen Crystal MD PhD Active KETOCONAZOLE 2 % CREA apply twice a day to rash KETOCONAZOLE 44192662544 No Longer Active Hector Love MD Active AUGMENTIN 875-125 MG TAB 1 tab by mouth twice daily with food AMOXICILLIN-POT CLAVULANATE 42568897728 No Longer Active Иван Mooney MD Active LOTRISONE 0.05-1 % CREAM Apply twice a day to affected area 07/19 CLOTRIMAZOLE-BETAMETHASONE 42242015113 No Longer Active Иван Mooney MD Active FEXOFENADINE HCL 180 MG TABS 1 Daily FEXOFENADINE HCL 33924729242 No Longer Active Hector Love MD Active PROGRAF 0.5 MG CAPS Take one by mouth daily with 1 mg TACROLIMUS 77419865782 No Longer Active Hector Love MD Active AMOXICILLIN 500 MG CAPS 2 po BID x 10 days AMOXICILLIN 85440868423 No Longer Active Hector Love MD Active RAPAMUNE 1 MG TABS 3 tabs in the am SIROLIMUS 22557900300 No Longer Active Hector Love MD Active AMOXICILLIN 500 MG CAPS 2 po BID x 10 days AMOXICILLIN 36913336700 No Longer Active Hector Love MD Active LORTAB 5 5-500 MG TABS 1/2 to 1 tablet by mouth every 4 hours as needed for pain HYDROCODONE-ACETAMINOPHEN 73235921360 No Longer Active Hector Love MD Active FLUTICASONE PROPIONATE 50 MCG/ACT SUSP INSTILL 2 SPRAYS IN EACH NOSTRIL Q D FLUTICASONE PROPIONATE 55875341629 No Longer Active Hector Love MD Active PROGRAF 1 MG CAPS 1 po bid TACROLIMUS 51881559953 No Longer Active Hector Love MD Active AMOXICILLIN 875 MG TABS 1 tab by mouth twice daily AMOXICILLIN 46910354705 No Longer Active Hector Love MD Active AMOXICILLIN 500 MG CAPS 2 po BID x 10 days AMOXICILLIN 83224046787 No Longer Active Hector Love MD Active AUGMENTIN 875-125 MG TAB 1 tab by mouth twice daily with food AMOXICILLIN-POT CLAVULANATE 72839476531 No Longer Active Hectro Love MD Active AZITHROMYCIN 250 MG TABS 2 po qd x 1 day, then 1 po qd x 4 days AZITHROMYCIN 30320942436 No Longer Active Hector Love MD Active CETIRIZINE HCL 10 MG TABS 1 PO Q D CETIRIZINE HCL 80534070861 No Longer Active [place] Active PROGRAF 1 MG CAPS 1 po bid PROGRAF 1 MG CAPS 281856 TACROLIMUS Inactive FLUTICASONE PROPIONATE 50 MCG/ACT SUSP INSTILL 2 SPRAYS IN EACH NOSTRIL Q D FLUTICASONE PROPIONATE 50 MCG/ACT SUSP 0912783 FLUTICASONE PROPIONATE Inactive LORTAB 5 5-500 MG TABS 1/2 to 1 tablet by mouth every 4 hours as needed for pain LORTAB 5 5-500 MG TABS HYDROCODONE- ACETAMINOPHEN Inactive RAPAMUNE 1 MG TABS 3 tabs in the am RAPAMUNE 1 MG TABS 472879 SIROLIMUS Inactive PROGRAF 0.5 MG CAPS Take one by mouth daily with 1 mg PROGRAF 0.5 MG CAPS 104893 TACROLIMUS Inactive FEXOFENADINE HCL 180 MG TABS 1 Daily FEXOFENADINE HCL 180 MG TABS 486357 FEXOFENADINE HCL Inactive LOTRISONE 0.05-1 % CREAM Apply twice a day to affected area 07/19 LOTRISONE 0.05-1 % CREAM 843572 CLOTRIMAZOLE-BETAMETHASONE Inactive KETOCONAZOLE 2 % CREA apply twice a day to rash KETOCONAZOLE 2 % CREA 303864 KETOCONAZOLE Inactive AUGMENTIN 875-125 MG TAB 1 tab by mouth twice daily with food AUGMENTIN 875-125 MG TAB 155514 AMOXICILLIN-POT CLAVULANATE Inactive ZOFRAN 4 MG TABS 1 po q6hr PRN Nausea ZOFRAN 4 MG TABS 722005 ONDANSETRON HCL Inactive AMOXICILLIN 500 MG TABS 2 tabs twice a day for 10 days AMOXICILLIN 500 MG TABS 918774 AMOXICILLIN Inactive FLONASE ALLERGY RELIEF 50 MCG/ACT NASAL SUSP 2 sprays each nostril daily PRN allergies FLONASE ALLERGY RELIEF 50 MCG/ACT NASAL SUSP 5932141 FLUTICASONE PROPIONATE Inactive HYDROCODONE-ACETAMINOPHEN 5-325 MG TABS 1/2 to 1 po q 4 hours prn pain 11/06 HYDROCODONE-ACETAMINOPHEN 5-325 MG TABS 269152 HYDROCODONE- ACETAMINOPHEN Inactive AMOXICILLIN 500 MG CAPS 2 po BID x 10 days AMOXICILLIN 500 MG CAPS 538117 AMOXICILLIN Inactive AMOXICILLIN 875 MG TABS 1 tab by mouth twice daily AMOXICILLIN 875 MG TABS 314579 AMOXICILLIN Inactive AMOXICILLIN 500 MG CAPS 2 po BID x 10 days AMOXICILLIN 500 MG CAPS 775465 AMOXICILLIN Inactive AMOXICILLIN 500 MG CAPS 2 po BID x 10 days AMOXICILLIN 500 MG CAPS 490425 AMOXICILLIN Inactive AUGMENTIN 875-125 MG TAB 1 tab by mouth twice daily with food AUGMENTIN 875-125 MG TAB 739693 AMOXICILLIN-POT CLAVULANATE Inactive LEVAQUIN 500 MG TABS 1 pill by mouth daily LEVAQUIN 500 MG TABS 665922 LEVOFLOXACIN Inactive AMOXICILLIN 500 MG CAPS 2 po BID x 10 days AMOXICILLIN 500 MG CAPS 979797 AMOXICILLIN Inactive AMOXICILLIN 500 MG CAPS 1 cap by mouth three times a day AMOXICILLIN 500 MG CAPS 752447 AMOXICILLIN Inactive AUGMENTIN 875-125 MG TAB 1 po BID x 10 days AUGMENTIN 875-125 MG TAB 725216 AMOXICILLIN-POT CLAVULANATE Inactive Advance Directives Directive Description Start Date PERMISSION TO SHARE Immunizations Vaccine Administration Date Value Standard Description Seasonal influenza vaccine, injectable, preservative free, for > 3 years old ( Afluria, FluLaval, Fluzone, Fluvirin, Fluarix, Agriflu(>=18 yo)) Fluzone preservative free (>=3 yrs.) [[id number]] Influenza, seasonal, injectable, preservative free Adacel (Tetanus, reduced Diphtheria, and acellular Pertussis Immunization) Adacel [[id number]] tetanus toxoid, reduced diphtheria toxoid, and acellular [...] 0.76-1.46 Encounters Code Encounter Date Provider Facility CPT-18787 Level 4 Est. Patient 12:02:18 CDT Hector Love MD [facility] CPT-13374 Level 3 Est. Patient 16:14:45 CDT Hector Love MD [facility] CPT-05261 Level 3 Est. Patient 16:53:35 CDT Иван Mooney MD [facility] CPT-56568 Level 3 Est. Patient 15:57:13 CDT Martha Montejo RADHA [facility] CPT-43346 Level 3 Est. Patient 14:30:47 SUPERINTENDENT RENTING MANAGING Hector Love MD [facility] CPT-07925 Level 3 Est. Patient 14:50:45 CDT Hector Love MD [facility] CPT-21399 Level 3 Est. Patient 21:17:30 CDT Jen Crystal MD PhD [facility] CPT-66503 Level 3 Est. Patient 09:32:55 CDT Hector Love MD [facility] CPT-11033 Level 3 Est. Patient 15:11:08 SUPERINTENDENT RENTING MANAGING Иван Mooney MD [facility] CPT-10057 Level 3 Est. Patient 16:38:53 SUPERINTENDENT RENTING MANAGING Hector Love MD [facility] CPT-72605 Level 3 Est. Patient 15:46:05 CDT Hector Love MD [facility] CPT-02420 Level 3 Est. Patient 13:59:39 CDT Hector Love MD [facility] CPT-60847 Level 3 Est. Patient 14:44:46 SUPERINTENDENT RENTING MANAGING Hector Love MD [facility] CPT-93203 Level 3 Est. Patient 17:12:27 CDT Hector Love MD [facility] CPT-62599 Level 3 Est. Patient 15:30:32 CDT Hector Love MD [facility] CPT-38266 Level 3 Est. Patient 14:24:52 CDT Иван Mooney MD [facility] CPT-32279 Level 3 Est. Patient 14:08:38 SUPERINTENDENT RENTING MANAGING Hector Love MD [facility] Procedures Code Procedure Name Date Entry Date Standard Description CPT-24458 Fluzone Quadrivalent Intramuscular Suspension 0.5 ML 16: 12:26 SUPERINTENDENT RENTING MANAGING CPT-15900 Immunization Single Admin 16:12:26 SUPERINTENDENT RENTING MANAGING CPT-J0561 Bicillin LA 1,200,000 u (PCN G Benzathine) 16:40:23 CDT CPT-04426 Abx/Therapy Injection 16:40:22 CDT CPT-J0561 Bicillin LA 1,200,000 u (PCN G Benzathine) 16:15:35 CDT CPT-94922 Immunization Single Admin 16:11:28 SUPERINTENDENT RENTING MANAGING CPT-75880 Fluzone Quadrivalent Intramuscular Suspension 0.5 ML 16: 11:28 SUPERINTENDENT RENTING MANAGING CPT-21998 Administration single or combination vaccine inc oral 13 :57:23 CDT CPT-12778 Menactra Intramuscular Injectable 13:57:23 CDT CPT-89174 First Vx Component - Ix admin via ID IM or jet inj without physician counseling 16:42:17 SUPERINTENDENT RENTING MANAGING CPT-24251 Fluzone preservative free (>=3 yrs.) 16:42:17 SUPERINTENDENT RENTING MANAGING 06/03 CPT-30417 Venipuncture Draw Fee 16:29:01 CDT CPT-42133 Chest 2V Frontal and Lat 16:23:56 CDT CPT-81421 Administration single or combination vaccine inc oral 13 :39:17 SUPERINTENDENT RENTING MANAGING CPT-91181 Tdap 13:39:17 SUPERINTENDENT RENTING MANAGING
--- OUTSIDE RECORDS SUMMARY | 2017-11-06 01:21 | XMS REPORT | Clinical Summary ---
Author Author Admin, QIE Organization [employer] Address Unknown Phone Unavailable Allergies, Adverse Reactions, [...] Gastroenteritis, viral, acute 008.8 Resolved Martha Montejo RISK REDUCTION COUNSELOR Intestinal infection due to other organism, not [...] employment physical examination V70.0 Active Manish Castrejon RISK REDUCTION COUNSELOR Routine general medical examination at a health care facility Exposure to mononucleosis V01.79 Active Manish Castrejon RISK REDUCTION COUNSELOR Contact with or exposure to other viral diseases Stress at work V62.1 Active Manish Castrejon RISK REDUCTION COUNSELOR Adverse effects of work environment FH DIABETES [...] Love MD 2014 Pharyngitis ICD-462 Inactive Hector Loev MD Ingrown toenail ICD-703.0 Inactive Hector Love MD Malorie rodriguez, right ICD-703.0 Inactive Hector Love MD Medication List Medication Instructions Start Date Stop Date Generic Name NDC Status Provider Patient Instruction PREDNISONE 20 MG TAB 1 tablet daily x 2 days PREDNISONE 49561846516 No Longer Active Jillina Frazell RISK REDUCTION COUNSELOR Active AMOXICILLIN 500 MG TABS Take two tablets by mouth every 12 hours for 10 days AMOXICILLIN 20589085158 No Longer Active Иван Mooney MD Active VITAMIN C 500 MG CHEW TAB ASCORBIC ACID 46506625917 Active Иван Mooney MD Active PREDNISONE 20 MG TAB 2 po qd x 4 days PREDNISONE 45948734452 No Longer Active Hector Love MD Active HYDROCODONE-ACETAMINOPHEN 5-325 MG TABS 1/2 to 1 po q 4 hours prn pain 11/06 HYDROCODONE-ACETAMINOPHEN 65760139716 No Longer Active Hector Love MD Active FLONASE ALLERGY RELIEF 50 MCG/ACT NASAL SUSP 2 spray each nostril daily prn allergies FLUTICASONE PROPIONATE 09356933170 Active Hector Love MD Active AUGMENTIN 875-125 MG TAB 1 po BID x 10 days AMOXICILLIN-POT CLAVULANATE 64845792189 No Longer Active Hector Love MD Active FLONASE ALLERGY RELIEF 50 MCG/ACT NASAL SUSP 2 sprays each nostril daily PRN allergies FLUTICASONE PROPIONATE 63180323057 No Longer Active Hector Love MD Active AMOXICILLIN 500 MG CAPS 1 cap by mouth three times a day AMOXICILLIN 78831427259 No Longer Active Jillina Frazell RISK REDUCTION COUNSELOR Active KEFLEX 500 MG CAP 1 tab po tid CEPHALEXIN 22779456845 No Longer Active Jillina Frazell RISK REDUCTION COUNSELOR Active AMOXICILLIN 500 MG TABS 2 tabs twice a day for 10 days AMOXICILLIN 62153528822 No Longer Active Jillina Frazell RISK REDUCTION COUNSELOR Active ZYRTEC ALLERGY 10 MG CAPS 1 po qd CETIRIZINE HCL 01192540480 Active Hector Love MD Active PROGRAF 1 MG CAPS 2 tabs po bid TACROLIMUS 85234989634 Active Hector Love MD Active ZOFRAN 4 MG TABS 1 po q6hr PRN Nausea ONDANSETRON HCL 41742568768 No Longer Active Ramona Diggs LPN Active AMOXICILLIN 500 MG CAPS 2 po BID x 10 days AMOXICILLIN 18205233847 No Longer Active Martha Raímrezhenrique RISK REDUCTION COUNSELOR Active AUGMENTIN 875-125 MG TAB 1 tab by mouth twice daily with food AMOXICILLIN-POT CLAVULANATE 87410654854 No Longer Active Hector Love MD Active LEVAQUIN 500 MG TABS 1 pill by mouth daily LEVOFLOXACIN 65931404437 No Longer Active Jen Crystal MD PhD Active LISINOPRIL 5 MG TABS 1.5 tab qd LISINOPRIL 01973660381 Active Jen Crystal MD PhD Active KETOCONAZOLE 2 % CREA apply twice a day to rash KETOCONAZOLE 20826485039 No Longer Active Hector Love MD Active AUGMENTIN 875-125 MG TAB 1 tab by mouth twice daily with food AMOXICILLIN-POT CLAVULANATE 57974575311 No Longer Active Иван Mooney MD Active LOTRISONE 0.05-1 % CREAM Apply twice a day to affected area 07/19 CLOTRIMAZOLE-BETAMETHASONE 80395202384 No Longer Active Иван Mooney MD Active FEXOFENADINE HCL 180 MG TABS 1 Daily FEXOFENADINE HCL 61406007756 No Longer Active Hector Love MD Active PROGRAF 0.5 MG CAPS Take one by mouth daily with 1 mg TACROLIMUS 92284815480 No Longer Active Hector Love MD Active AMOXICILLIN 500 MG CAPS 2 po BID x 10 days AMOXICILLIN 75794722478 No Longer Active Hector Love MD Active RAPAMUNE 1 MG TABS 3 tabs in the am SIROLIMUS 01406142999 No Longer Active Hector Love MD Active AMOXICILLIN 500 MG CAPS 2 po BID x 10 days AMOXICILLIN 04510605191 No Longer Active Hector Love MD Active LORTAB 5 5-500 MG TABS 1/2 to 1 tablet by mouth every 4 hours as needed for pain HYDROCODONE-ACETAMINOPHEN 36528088819 No Longer Active Hector Love MD Active FLUTICASONE PROPIONATE 50 MCG/ACT SUSP INSTILL 2 SPRAYS IN EACH NOSTRIL Q D FLUTICASONE PROPIONATE 75956203035 No Longer Active Hector Love MD Active PROGRAF 1 MG CAPS 1 po bid TACROLIMUS 59264572254 No Longer Active Hector Love MD Active AMOXICILLIN 875 MG TABS 1 tab by mouth twice daily AMOXICILLIN 17125412431 No Longer Active Hector Love MD Active AMOXICILLIN 500 MG CAPS 2 po BID x 10 days AMOXICILLIN 99589391574 No Longer Active Hector Love MD Active AUGMENTIN 875-125 MG TAB 1 tab by mouth twice daily with food AMOXICILLIN-POT CLAVULANATE 36660784771 No Longer Active Hector Love MD Active AZITHROMYCIN 250 MG TABS 2 po qd x 1 day, then 1 po qd x 4 days AZITHROMYCIN 80626205895 No Longer Active Hector Love MD Active CETIRIZINE HCL 10 MG TABS 1 PO Q D CETIRIZINE HCL 46025337259 No Longer Active [place] Active PROGRAF 1 MG CAPS 1 po bid PROGRAF 1 MG CAPS 088286 TACROLIMUS Inactive FLUTICASONE PROPIONATE 50 MCG/ACT SUSP INSTILL 2 SPRAYS IN EACH NOSTRIL Q D FLUTICASONE PROPIONATE 50 MCG/ACT SUSP 7220081 FLUTICASONE PROPIONATE Inactive LORTAB 5 5-500 MG TABS 1/2 to 1 tablet by mouth every 4 hours as needed for pain LORTAB 5 5-500 MG TABS HYDROCODONE- ACETAMINOPHEN Inactive RAPAMUNE 1 MG TABS 3 tabs in the am RAPAMUNE 1 MG TABS 733154 SIROLIMUS Inactive PROGRAF 0.5 MG CAPS Take one by mouth daily with 1 mg PROGRAF 0.5 MG CAPS 126890 TACROLIMUS Inactive FEXOFENADINE HCL 180 MG TABS 1 Daily FEXOFENADINE HCL 180 MG TABS 761515 FEXOFENADINE HCL Inactive LOTRISONE 0.05-1 % CREAM Apply twice a day to affected area 07/19 LOTRISONE 0.05-1 % CREAM 742567 CLOTRIMAZOLE-BETAMETHASONE Inactive KETOCONAZOLE 2 % CREA apply twice a day to rash KETOCONAZOLE 2 % CREA 945776 KETOCONAZOLE Inactive AUGMENTIN 875-125 MG TAB 1 tab by mouth twice daily with food AUGMENTIN 875-125 MG TAB 137082 AMOXICILLIN-POT CLAVULANATE Inactive ZOFRAN 4 MG TABS 1 po q6hr PRN Nausea ZOFRAN 4 MG TABS 246718 ONDANSETRON HCL Inactive AMOXICILLIN 500 MG TABS 2 tabs twice a day for 10 days AMOXICILLIN 500 MG TABS 163615 AMOXICILLIN Inactive FLONASE ALLERGY RELIEF 50 MCG/ACT NASAL SUSP 2 sprays each nostril daily PRN allergies FLONASE ALLERGY RELIEF 50 MCG/ACT NASAL SUSP 3436728 FLUTICASONE PROPIONATE Inactive HYDROCODONE-ACETAMINOPHEN 5-325 MG TABS 1/2 to 1 po q 4 hours prn pain 11/06 HYDROCODONE-ACETAMINOPHEN 5-325 MG TABS 984808 HYDROCODONE- ACETAMINOPHEN Inactive PREDNISONE 20 MG TAB 1 tablet daily x 2 days PREDNISONE 20 MG TAB 830558 PREDNISONE Inactive AMOXICILLIN 500 MG CAPS 2 po BID x 10 days AMOXICILLIN 500 MG CAPS 807946 AMOXICILLIN Inactive AMOXICILLIN 875 MG TABS 1 tab by mouth twice daily AMOXICILLIN 875 MG TABS 784072 AMOXICILLIN Inactive AMOXICILLIN 500 MG CAPS 2 po BID x 10 days AMOXICILLIN 500 MG CAPS 130040 AMOXICILLIN Inactive AMOXICILLIN 500 MG CAPS 2 po BID x 10 days AMOXICILLIN 500 MG CAPS 497697 AMOXICILLIN Inactive AUGMENTIN 875-125 MG TAB 1 tab by mouth twice daily with food AUGMENTIN 875-125 MG TAB 431960 AMOXICILLIN-POT CLAVULANATE Inactive LEVAQUIN 500 MG TABS 1 pill by mouth daily LEVAQUIN 500 MG TABS 818156 LEVOFLOXACIN Inactive AMOXICILLIN 500 MG CAPS 2 po BID x 10 days AMOXICILLIN 500 MG CAPS 348788 AMOXICILLIN Inactive AMOXICILLIN 500 MG CAPS 1 cap by mouth three times a day AMOXICILLIN 500 MG CAPS 159783 AMOXICILLIN Inactive AUGMENTIN 875-125 MG TAB 1 po BID x 10 days AUGMENTIN 875-125 MG TAB 226455 AMOXICILLIN-POT CLAVULANATE Inactive PREDNISONE 20 MG TAB 2 po qd x 4 days PREDNISONE 20 MG TAB 069282 PREDNISONE Inactive AMOXICILLIN 500 MG TABS Take two tablets by mouth every 12 hours for 10 days AMOXICILLIN 500 MG TABS 997971 AMOXICILLIN Inactive Advance Directives Directive Description Start Date PERMISSION TO SHARE Immunizations Vaccine Administration Date Value Standard Description Seasonal influenza vaccine, injectable, preservative free, for > 3 years old ( Afluria, FluLaval, Fluzone, Fluvirin, Fluarix, Agriflu(>=18 yo)) Fluzone preservative free (>=3 yrs.) [[id number]] Influenza, seasonal, injectable, preservative free Adacel (Tetanus, reduced Diphtheria, and acellular Pertussis Immunization) Adacel [LZN854] tetanus toxoid, reduced diphtheria toxoid, and acellular [...] Panel - Chemistry sodium, serum 137 mmol/L 516-774 2410/08/14 carbon dioxide, venous blood 29.7 mmol/L 21.0-32.0 potassium, serum 4.3 mmol/L 3.5-5.2 chloride, serum 99 mmol/L 98-107 blood glucose 123 mg/dL 65-110 urea nitrogen, blood 12 mg/dL 7-18 creatinine, serum 0.84 mg/dL 0.60-1.30 alanine aminotransferase (SGPT), serum 48 U/L 12-78 aspartate aminotransferase (SGOT), serum 26 U/L 15-37 calcium, serum 9.4 mg/dL 8.5-10.1 bilirubin, serum, total 1.60 mg/dL 0.00-1.00 cholesterol, serum 141 mg/dL 589-169 3374/08/14 triglyceride, serum, fasting 54 mg/dL 30-200 HDL [...] semiquantitative 6.0 5.0-8.5 Lab Report: VITAMIN D, 25-HYDROXY/[id number] - Chemistry vitamin D 25-hydroxy, serum 18 ng/mL 30-100 Encounters Code Encounter Date Provider Facility CPT-10175 Level 3 Est. Patient 11:35:07 CDT Manish Castrejon [facility] CPT-26722 Level 3 Est. Patient 17:22:36 CDT Tracy [facility]RUST CPT-63043 Level 3 Est. Patient 16:06:03 CDT Manish Castrejon [facility] CPT-57780 Level 3 Est. Patient 09:57:24 [facility] Level 3 Est. Patient 16:31:04 CDT Иван Mooney MD [facility] CPT-61535 Level 4 Est. Patient 12:02:18 CDT Hector Love MD [facility] CPT-51622 Level 3 Est. Patient 16:14:45 CDT Hector Love MD [facility] CPT-32857 Level 3 Est. Patient 16:53:35 CDT Иван Mooney MD [facility] CPT-61775 Level 3 Est. Patient 15:57:13 CDT Martha Montejo RADHA [facility] CPT-58958 Level 3 Est. Patient 14:30:47 SENIOR EDITOR Hector Love MD [facility] CPT-51713 Level 3 Est. Patient 14:50:45 CDT Hector Love MD [facility] CPT-74353 Level 3 Est. Patient 21:17:30 CDT Jen Crystal MD PhD [facility] CPT-13115 Level 3 Est. Patient 09:32:55 CDT Hector Love MD [facility] CPT-71010 Level 3 Est. Patient 15:11:08 SENIOR EDITOR Иван Mooney MD [facility] CPT-84408 Level 3 Est. Patient 16:38:53 SENIOR EDITOR Hector Love MD [facility] CPT-35460 Level 3 Est. Patient 15:46:05 CDT Hector Love MD [facility] CPT-05109 Level 3 Est. Patient 13:59:39 CDT Hector Love MD [facility] CPT-13730 Level 3 Est. Patient 14:44:46 SENIOR EDITOR Hector Love MD [facility] CPT-52996 Level 3 Est. Patient 17:12:27 CDT Hector Love MD [facility] CPT-56479 Level 3 Est. Patient 15:30:32 CDT Hector Love MD [facility] CPT-83595 Level 3 Est. Patient 14:24:52 CDT Иван Mooney MD [facility] CPT-15319 Level 3 Est. Patient 14:08:38 SENIOR EDITOR Hector Love MD [facility] Procedures Code Procedure Name Date Entry Date Standard Description CPT-16233 Venipuncture Draw Fee 16:18:26 CDT CPT-84624 TB Skin Test 09:57:25 CDT CPT-000 Give Appropriate Flu Vaccine 16:22:23 SENIOR EDITOR CPT-76561 Free T4 - LAB USE ONLY 11:38:58 CDT CPT-58665 TSH - LAB USE ONLY 11:38:58 CDT CPT-31345 Venipuncture Draw Fee 11:38:58 CDT CPT-99776 Fluzone Quadrivalent Intramuscular Suspension 0.5 ML 16: 12:26 SENIOR EDITOR CPT-79137 Immunization Single Admin 16:12:26 SENIOR EDITOR CPT-J0561 Bicillin LA 1,200,000 u (PCN G Benzathine) 16:40:23 CDT CPT-23994 Abx/Therapy Injection 16:40:22 CDT CPT-J0561 Bicillin LA 1,200,000 u (PCN G Benzathine) 16:15:35 CDT CPT-37122 Immunization Single Admin 16:11:28 SENIOR EDITOR CPT-32733 Fluzone Quadrivalent Intramuscular Suspension 0.5 ML 16: 11:28 SENIOR EDITOR CPT-57426 Administration single or combination vaccine inc oral 13 :57:23 CDT CPT-23896 Menactra Intramuscular Injectable 13:57:23 CDT CPT-60050 First Vx Component - Ix admin via ID IM or jet inj without physician counseling 16:42:17 SENIOR EDITOR CPT-87637 Fluzone preservative free (>=3 yrs.) 16:42:17 SENIOR EDITOR 06/03 CPT-76485 Venipuncture Draw Fee 16:29:01 CDT CPT-38008 Chest 2V Frontal and Lat 16:23:56 CDT CPT-30972 Administration single or combination vaccine inc oral 13 :39:17 SENIOR EDITOR CPT-32219 Tdap 13:39:17 SENIOR EDITOR
--- OUTSIDE RECORDS SUMMARY | 2017-11-06 01:22 | XMS REPORT | Clinical Summary ---
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0 Inactive Hector Love MD Pharyngitis ICD-462 Inactive Hector Love MD Malorie rodriguez ICD-703.0 Inactive Hector Love MD Medication List Medication Instructions Start Date Stop Date Generic Name ND Status Provider Patient Instruction PREDNISONE 20 MG TAB 1 tablet daily x 2 days PREDNISONE [id number] No Longer Active Jillina Frazell 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 AMOXICILLIN 500 MG TABS Take two tablets by mouth every 12 hours for 10 days AMOXICILLIN 93795406072 No Longer Active Иван Mooney MD Active VITAMIN C 500 MG CHEW TAB ASCORBIC ACID 93429289991 Active Иван Mooney MD Active PREDNISONE 20 MG TAB 2 po qd x 4 days PREDNISONE 41215303307 No Longer Active Hector Love MD Active HYDROCODONE-ACETAMINOPHEN 5-325 MG TABS 1/2 to 1 po q 4 hours prn pain 11/06 HYDROCODONE-ACETAMINOPHEN 46325098814 No Longer Active Hector Love MD Active FLONASE ALLERGY RELIEF 50 MCG/ACT NASAL SUSP 2 spray each nostril daily prn allergies FLUTICASONE PROPIONATE 23505487486 Active Hector Love MD Active AUGMENTIN 875-125 MG TAB 1 po BID x 10 days AMOXICILLIN-POT CLAVULANATE 44867945916 No Longer Active Hector Love MD Active FLONASE ALLERGY RELIEF 50 MCG/ACT NASAL SUSP 2 sprays each nostril daily PRN allergies FLUTICASONE PROPIONATE 29369581756 No Longer Active Hector Love MD Active AMOXICILLIN 500 MG CAPS 1 cap by mouth three times a day AMOXICILLIN 05131527116 No Longer Active Jillina Fragretal 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 KEFLEX 500 MG CAP 1 tab po tid CEPHALEXIN 60628188937 No Longer Active 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 AMOXICILLIN 500 MG TABS 2 tabs twice a day for 10 days AMOXICILLIN 89795667641 No Longer Active 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 ZYRTEC ALLERGY 10 MG CAPS 1 po qd CETIRIZINE HCL 64127303157 Active Hector Love MD Active PROGRAF 1 MG CAPS 2 tabs po bid TACROLIMUS 43132900258 Active Hector Love MD Active ZOFRAN 4 MG TABS 1 po q6hr PRN Nausea ONDANSETRON HCL 75063638793 No Longer Active Ramona Diggs INDOOR LANDSCAPE ARCHITECT Active AMOXICILLIN 500 MG CAPS 2 po BID x 10 days AMOXICILLIN 80093760283 No Longer Active Martha Escalantestephen 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 AUGMENTIN 875-125 MG TAB 1 tab by mouth twice daily with food AMOXICILLIN-POT CLAVULANATE 20700795634 No Longer Active Hector Love MD Active LEVAQUIN 500 MG TABS 1 pill by mouth daily LEVOFLOXACIN 83447334029 No Longer Active Jen Crystal MD PhD Active LISINOPRIL 5 MG TABS 1.5 tab qd LISINOPRIL 55565879823 Active Jen Crystal MD PhD Active KETOCONAZOLE 2 % CREA apply twice a day to rash KETOCONAZOLE 33840617786 No Longer Active Hector Love MD Active AUGMENTIN 875-125 MG TAB 1 tab by mouth twice daily with food AMOXICILLIN-POT CLAVULANATE 87691369944 No Longer Active Иван Mooney MD Active LOTRISONE 0.05-1 % CREAM Apply twice a day to affected area 07/19 CLOTRIMAZOLE-BETAMETHASONE 30114179240 No Longer Active Иван Mooney MD Active FEXOFENADINE HCL 180 MG TABS 1 Daily FEXOFENADINE HCL 66793357246 No Longer Active Hector Love MD Active PROGRAF 0.5 MG CAPS Take one by mouth daily with 1 mg TACROLIMUS 43910268402 No Longer Active Hector Love MD Active AMOXICILLIN 500 MG CAPS 2 po BID x 10 days AMOXICILLIN 17415898844 No Longer Active Hector Love MD Active RAPAMUNE 1 MG TABS 3 tabs in the am SIROLIMUS 08007213502 No Longer Active Hector Love MD Active AMOXICILLIN 500 MG CAPS 2 po BID x 10 days AMOXICILLIN 86839964379 No Longer Active Hector Love MD Active LORTAB 5 5-500 MG TABS 1/2 to 1 tablet by mouth every 4 hours as needed for pain HYDROCODONE-ACETAMINOPHEN 37954320012 No Longer Active Hector Love MD Active FLUTICASONE PROPIONATE 50 MCG/ACT SUSP INSTILL 2 SPRAYS IN EACH NOSTRIL Q D FLUTICASONE PROPIONATE 81597637983 No Longer Active Hector Love MD Active PROGRAF 1 MG CAPS 1 po bid TACROLIMUS 50937150066 No Longer Active Hector Love MD Active AMOXICILLIN 875 MG TABS 1 tab by mouth twice daily AMOXICILLIN 25804400619 No Longer Active Hector Love MD Active AMOXICILLIN 500 MG CAPS 2 po BID x 10 days AMOXICILLIN 46424414171 No Longer Active Hector Love MD Active AUGMENTIN 875-125 MG TAB 1 tab by mouth twice daily with food AMOXICILLIN-POT CLAVULANATE 66905640429 No Longer Active Hector Love MD Active AZITHROMYCIN 250 MG TABS 2 po qd x 1 day, then 1 po qd x 4 days AZITHROMYCIN 49762407019 No Longer Active Hector Love MD Active CETIRIZINE HCL 10 MG TABS 1 PO Q D CETIRIZINE HCL 40948623370 No Longer Active Waleska [place] Active PROGRAF 1 MG CAPS 1 po bid PROGRAF 1 MG CAPS 979944 TACROLIMUS Inactive FLUTICASONE PROPIONATE 50 MCG/ACT SUSP INSTILL 2 SPRAYS IN EACH NOSTRIL Q D FLUTICASONE PROPIONATE 50 MCG/ACT SUSP 6093337 FLUTICASONE PROPIONATE Inactive LORTAB 5 5-500 MG TABS 1/2 to 1 tablet by mouth every 4 hours as needed for pain LORTAB 5 5-500 MG TABS HYDROCODONE- ACETAMINOPHEN Inactive RAPAMUNE 1 MG TABS 3 tabs in the am RAPAMUNE 1 MG TABS 132605 SIROLIMUS Inactive PROGRAF 0.5 MG CAPS Take one by mouth daily with 1 mg PROGRAF 0.5 MG CAPS 061892 TACROLIMUS Inactive FEXOFENADINE HCL 180 MG TABS 1 Daily FEXOFENADINE HCL 180 MG TABS 407986 FEXOFENADINE HCL Inactive LOTRISONE 0.05-1 % CREAM Apply twice a day to affected area 07/19 LOTRISONE 0.05-1 % CREAM 527793 CLOTRIMAZOLE-BETAMETHASONE Inactive KETOCONAZOLE 2 % CREA apply twice a day to rash KETOCONAZOLE 2 % CREA 346422 KETOCONAZOLE Inactive AUGMENTIN 875-125 MG TAB 1 tab by mouth twice daily with food AUGMENTIN 875-125 MG TAB 064508 AMOXICILLIN-POT CLAVULANATE Inactive ZOFRAN 4 MG TABS 1 po q6hr PRN Nausea ZOFRAN 4 MG TABS 818995 ONDANSETRON HCL Inactive AMOXICILLIN 500 MG TABS 2 tabs twice a day for 10 days AMOXICILLIN 500 MG TABS 936817 AMOXICILLIN Inactive FLONASE ALLERGY RELIEF 50 MCG/ACT NASAL SUSP 2 sprays each nostril daily PRN allergies FLONASE ALLERGY RELIEF 50 MCG/ACT NASAL SUSP 8066878 FLUTICASONE PROPIONATE Inactive HYDROCODONE-ACETAMINOPHEN 5-325 MG TABS 1/2 to 1 po q 4 hours prn pain 11/06 HYDROCODONE-ACETAMINOPHEN 5-325 MG TABS 056816 HYDROCODONE- ACETAMINOPHEN Inactive PREDNISONE 20 MG TAB 1 tablet daily x 2 days PREDNISONE 20 MG TAB 906452 PREDNISONE Inactive AMOXICILLIN 500 MG CAPS 2 po BID x 10 days AMOXICILLIN 500 MG CAPS 493243 AMOXICILLIN Inactive AMOXICILLIN 875 MG TABS 1 tab by mouth twice daily AMOXICILLIN 875 MG TABS 536729 AMOXICILLIN Inactive AMOXICILLIN 500 MG CAPS 2 po BID x 10 days AMOXICILLIN 500 MG CAPS 904448 AMOXICILLIN Inactive AMOXICILLIN 500 MG CAPS 2 po BID x 10 days AMOXICILLIN 500 MG CAPS 340396 AMOXICILLIN Inactive AUGMENTIN 875-125 MG TAB 1 tab by mouth twice daily with food AUGMENTIN 875-125 MG TAB 939105 AMOXICILLIN-POT CLAVULANATE Inactive LEVAQUIN 500 MG TABS 1 pill by mouth daily LEVAQUIN 500 MG TABS 654238 LEVOFLOXACIN Inactive AMOXICILLIN 500 MG CAPS 2 po BID x 10 days AMOXICILLIN 500 MG CAPS 833347 AMOXICILLIN Inactive AMOXICILLIN 500 MG CAPS 1 cap by mouth three times a day AMOXICILLIN 500 MG CAPS 331227 AMOXICILLIN Inactive AUGMENTIN 875-125 MG TAB 1 po BID x 10 days AUGMENTIN 875-125 MG TAB 648857 AMOXICILLIN-POT CLAVULANATE Inactive PREDNISONE 20 MG TAB 2 po qd x 4 days PREDNISONE 20 MG TAB 939268 PREDNISONE Inactive AMOXICILLIN 500 MG TABS Take two tablets by mouth every 12 hours for 10 days AMOXICILLIN 500 MG TABS 529466 AMOXICILLIN Inactive Advance Directives Directive Description Start Date PERMISSION TO SHARE Immunizations Vaccine Administration Date Value Standard Description Seasonal influenza vaccine, injectable, preservative free, for > 3 years old ( Afluria, FluLaval, Fluzone, Fluvirin, Fluarix, Agriflu(>=18 yo)) Fluzone preservative free (>=3 yrs.) [[id number]] Influenza, seasonal, injectable, preservative free Adacel (Tetanus, reduced Diphtheria, and acellular Pertussis Immunization) Adacel [PDQ940] tetanus toxoid, reduced diphtheria toxoid, and acellular [...] vaccine, conjugate unspecified formulation hepatitis B vaccine #2 given [...] Panel - Chemistry sodium, serum 137 mmol/L 715-138 6215/08/14 carbon dioxide, venous blood 29.7 mmol/L 21.0-32.0 potassium, serum 4.3 mmol/L 3.5-5.2 chloride, serum 99 mmol/L 98-107 blood glucose 123 mg/dL 65-110 urea nitrogen, blood 12 mg/dL 7-18 creatinine, serum 0.84 mg/dL 0.60-1.30 alanine aminotransferase (SGPT), serum 48 U/L 12-78 aspartate aminotransferase (SGOT), serum 26 U/L 15-37 calcium, serum 9.4 mg/dL 8.5-10.1 bilirubin, serum, total 1.60 mg/dL 0.00-1.00 cholesterol, serum 141 mg/dL 675-842 2303/08/14 triglyceride, serum, fasting 54 mg/dL 30-200 HDL [...] urine Negative Negative Lab Report: VITAMIN D, 25-HYDROXY/79474 - Chemistry vitamin D 25-hydroxy, serum 18 ng/mL 30-100 Encounters Code Encounter Date Provider Facility CPT-63970 Level 3 Est. Patient 11:35:07 CDT Manish Castrejon [facility]-49755 Level 3 Est. [facility]22[facility] Est[facility] Patient 16:06:03 CDT Manish Castrejon [facility] CPT-69621 Level 3 Est. Patient 09:57:24 CDT Manish Castrejon [facility] CPT-16771 Level 3 Est. Patient 16:31:04 CDT Иван Mooney MD [facility] CPT-47091 Level 4 Est. Patient 12:02:18 CDT Hector Love MD [facility] CPT-64523 Level 3 Est. Patient 16:14:45 CDT Hector Love MD [facility] CPT-92084 Level 3 Est. Patient 16:53:35 CDT Иван Mooney MD [facility] CPT-83467 Level 3 Est. Patient 15:57:13 CDT Martha Montejo [facility] CPT-99888 Level 3 Est. 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 Patient 14:50:45 CDT Hector Love MD [facility] CPT-37655 Level 3 Est. Patient 21:17:30 CDT Jen Crystal MD PhD [facility] CPT-61377 Level 3 Est. Patient 09:32:55 CDT Hector Love MD [facility] CPT-66975 Level 3 Est. Patient 15:11:08 [employer] PLANNING AIDE Иван Mooney MD [facility] CPT-20356 Level 3 Est. Patient 16:38:53 CITY PLANNING AIDE Hector Love MD [facility] CPT-46234 Level 3 Est. Patient 15:46:05 CDT Hector Love MD [facility] CPT-07167 Level 3 Est. Patient 13:59:39 CDT Hector Love MD [facility] CPT-77841 Level 3 Est. Patient 14:44:46 CITY PLANNING AIDE Hector Love MD [facility] CPT-39758 Level 3 Est. Patient 17:12:27 CDT Hector Love MD [facility] CPT-40661 Level 3 Est. Patient 15:30:32 CDT Hector Love MD [facility] CPT-19089 Level 3 Est. Patient 14:24:52 CDT Иван Mooney MD [facility] CPT-40673 Level 3 Est. Patient 14:08:38 CITY PLANNING AIDE Hector Love MD [facility] Procedures Code Procedure Name Date Entry Date Standard Description CPT-13004 Venipuncture Draw Fee 16:18:26 CDT CPT-23300 TB Skin Test 09:57:25 CDT CPT-000 Give Appropriate Flu Vaccine 16:22:23 [employer]ANNING AIDE CPT-50150 Free T4 - LAB USE ONLY 11:38:58 CDT CPT-36734 TSH - LAB USE ONLY 11:38:58 CDT CPT-18749 Venipuncture Draw Fee 11:38:58 CDT CPT-69719 Fluzone Quadrivalent Intramuscular Suspension 0.5 ML 16: 12:26 [employer] PLANNING AIDE CPT-56597 Immunization Single Admin 16:12:26 [employer] PLANNING AIDE CPT-J0561 Bicillin LA 1,200,000 u (PCN G Benzathine) 16:40:23 CDT CPT-62288 Abx/Therapy Injection 16:40:22 CDT CPT-J0561 Bicillin LA 1,200,000 u (PCN G Benzathine) 16:15:35 CDT CPT-20832 Immunization Single Admin 16:11:28 [employer] PLANNING AIDE CPT-13082 Fluzone Quadrivalent Intramuscular Suspension 0.5 ML 16: 11:28 [employer] PLANNING AIDE CPT-82053 Administration single or combination vaccine inc oral 13 :57:23 CDT CPT-47133 Menactra Intramuscular Injectable 13:57:23 CDT CPT-52352 First Vx Component - Ix admin via ID IM or jet inj without physician counseling 16:42:17 CITY PLANNING AIDE CPT-98158 Fluzone preservative free (>=3 yrs.) 16:42:17 CITY PLANNING AIDE 06/03 CPT-13367 Venipuncture Draw Fee 16:29:01 CDT CPT-92672 Chest 2V Frontal and Lat 16:23:56 CDT CPT-59320 Administration single or combination vaccine inc oral 13 :39:17 CITY PLANNING AIDE CPT-77127 Tdap 13:39:17 [employer] PLANNING AIDE
--- OUTSIDE RECORDS SUMMARY | 2017-11-06 01:23 | XMS REPORT | Clinical Summary ---
Author Author Admin, LAMBERT Organization [facility] Address Unknown Phone Unavailable Allergies, Adverse Reactions, [...] Dermatophytosis of the body Sinusitis 461.9 Resolved Hectro Love MD Acute sinusitis, unspecified Fever 780.60 [...] other organism, not elsewhere classified Bronchitis 490 Active Martha Montejo APRN Bronchitis, not specified as acute or chronic [...] viral, acute ICD-008.8 Inactive Martha Montejo APRN Medication List Medication Instructions Start Date Stop Date Generic Name NDC Status Provider Patient Instruction AMOXICILLIN 500 MG TABS 2 tabs twice a day for 10 days AMOXICILLIN 31568317878 Active Иван Mooney MD Active ZOFRAN 4 MG TABS 1 po q6hr PRN Nausea ONDANSETRON HCL 05894791073 No Longer Active Ramona Diggs LPN Active AMOXICILLIN 500 MG CAPS 2 po BID x 10 days AMOXICILLIN 84544148113 No Longer Active Martha Montejo APRN Active AUGMENTIN 875-125 MG TAB 1 tab by mouth twice daily with food AMOXICILLIN-POT CLAVULANATE 39551300786 No Longer Active Hector Love MD Active FLONASE 50 MCG/ACT SUSP 2 puffs in each nostril daily PRN Allergies FLUTICASONE PROPIONATE 30988932310 Active Hector Love MD Active LEVAQUIN 500 MG TABS 1 pill by mouth daily LEVOFLOXACIN 79116161967 No Longer Active Jen Crystal MD PhD Active LISINOPRIL 5 MG TABS 1.5 tab qd LISINOPRIL 83098571052 Active Jen Crystal MD PhD Active KETOCONAZOLE 2 % CREA apply twice a day to rash KETOCONAZOLE 03487590141 No Longer Active Hector Love MD Active AUGMENTIN 875-125 MG TAB 1 tab by mouth twice daily with food AMOXICILLIN-POT CLAVULANATE 02403159379 No Longer Active Иван Mooney MD Active LOTRISONE 0.05-1 % CREAM Apply twice a day to affected area 07/19 CLOTRIMAZOLE-BETAMETHASONE 47135545767 No Longer Active Иван Mooney MD Active PROGRAF 1 MG CAPS 4 tabs po bid TACROLIMUS 93827395799 Active Hector Love MD Active FEXOFENADINE HCL 180 MG TABS 1 Daily FEXOFENADINE HCL 70469326536 No Longer Active Hector Love MD Active PROGRAF 0.5 MG CAPS Take one by mouth daily with 1 mg TACROLIMUS 24636494691 No Longer Active Hector Love MD Active AMOXICILLIN 500 MG CAPS 2 po BID x 10 days AMOXICILLIN 56477794646 No Longer Active Hector Love MD Active RAPAMUNE 1 MG TABS 3 tabs in the am SIROLIMUS 09626937165 No Longer Active Hector Love MD Active AMOXICILLIN 500 MG CAPS 2 po BID x 10 days AMOXICILLIN 01321872947 No Longer Active Hector Love MD Active LORTAB 5 5-500 MG TABS 1/2 to 1 tablet by mouth every 4 hours as needed for pain HYDROCODONE-ACETAMINOPHEN 25747334454 No Longer Active Hector Love MD Active FLUTICASONE PROPIONATE 50 MCG/ACT SUSP INSTILL 2 SPRAYS IN EACH NOSTRIL Q D FLUTICASONE PROPIONATE 06083447381 No Longer Active Hector Love MD Active PROGRAF 1 MG CAPS 1 po bid TACROLIMUS 17062189928 No Longer Active Hector Love MD Active AMOXICILLIN 875 MG TABS 1 tab by mouth twice daily AMOXICILLIN 97012291645 No Longer Active Hector Love MD Active AMOXICILLIN 500 MG CAPS 2 po BID x 10 days AMOXICILLIN 54415838914 No Longer Active Hector Love MD Active AUGMENTIN 875-125 MG TAB 1 tab by mouth twice daily with food AMOXICILLIN-POT CLAVULANATE 15087316078 No Longer Active Hector Love MD Active AZITHROMYCIN 250 MG TABS 2 po qd x 1 day, then 1 po qd x 4 days AZITHROMYCIN 86980346920 No Longer Active Hector Love MD Active CETIRIZINE HCL 10 MG TABS 1 PO Q D CETIRIZINE HCL 49216277813 No Longer Active [place] Active PROGRAF 1 MG CAPS 1 po bid PROGRAF 1 MG CAPS 984130 TACROLIMUS Inactive FLUTICASONE PROPIONATE 50 MCG/ACT SUSP INSTILL 2 SPRAYS IN EACH NOSTRIL Q D FLUTICASONE PROPIONATE 50 MCG/ACT SUSP 550463 FLUTICASONE PROPIONATE Inactive LORTAB 5 5-500 MG TABS 1/2 to 1 tablet by mouth every 4 hours as needed for pain LORTAB 5 5-500 MG TABS HYDROCODONE- ACETAMINOPHEN Inactive RAPAMUNE 1 MG TABS 3 tabs in the am RAPAMUNE 1 MG TABS 583510 SIROLIMUS Inactive PROGRAF 0.5 MG CAPS Take one by mouth daily with 1 mg PROGRAF 0.5 MG CAPS 071049 TACROLIMUS Inactive FEXOFENADINE HCL 180 MG TABS 1 Daily FEXOFENADINE HCL 180 MG TABS 791392 FEXOFENADINE HCL Inactive LOTRISONE 0.05-1 % CREAM Apply twice a day to affected area 07/19 LOTRISONE 0.05-1 % CREAM 327286 CLOTRIMAZOLE-BETAMETHASONE Inactive KETOCONAZOLE 2 % CREA apply twice a day to rash KETOCONAZOLE 2 % CREA 159178 KETOCONAZOLE Inactive AUGMENTIN 875-125 MG TAB 1 tab by mouth twice daily with food AUGMENTIN 875-125 MG TAB 608955 AMOXICILLIN-POT CLAVULANATE Inactive ZOFRAN 4 MG TABS 1 po q6hr PRN Nausea ZOFRAN 4 MG TABS 761434 ONDANSETRON HCL Inactive AMOXICILLIN 500 MG CAPS 2 po BID x 10 days AMOXICILLIN 500 MG CAPS 260871 AMOXICILLIN Inactive AMOXICILLIN 875 MG TABS 1 tab by mouth twice daily AMOXICILLIN 875 MG TABS 525978 AMOXICILLIN Inactive AMOXICILLIN 500 MG CAPS 2 po BID x 10 days AMOXICILLIN 500 MG CAPS 158592 AMOXICILLIN Inactive AMOXICILLIN 500 MG CAPS 2 po BID x 10 days AMOXICILLIN 500 MG CAPS 641994 AMOXICILLIN Inactive AUGMENTIN 875-125 MG TAB 1 tab by mouth twice daily with food AUGMENTIN 875-125 MG TAB 180300 AMOXICILLIN-POT CLAVULANATE Inactive LEVAQUIN 500 MG TABS 1 pill by mouth daily LEVAQUIN 500 MG TABS 735857 LEVOFLOXACIN Inactive AMOXICILLIN 500 MG CAPS 2 po BID x 10 days AMOXICILLIN 500 MG CAPS 105792 AMOXICILLIN Inactive Advance Directives Directive Description Start Date PERMISSION TO SHARE Immunizations Vaccine Administration Date Value Standard Description Seasonal influenza vaccine, injectable, preservative free, for > 3 years old ( Afluria, FluLaval, Fluzone, Fluvirin, Fluarix, Agriflu(>=18 yo)) Fluzone preservative free (>=3 yrs.) [IOI813] Influenza, seasonal, injectable, preservative free Adacel (Tetanus, reduced Diphtheria, and acellular Pertussis Immunization) Adacel [[id number]] tetanus toxoid, reduced diphtheria toxoid, and acellular [...] Range Description blood pressure, diastolic - 8462-4 86 mm[Hg] [...] Negative Encounters Code Encounter Date Provider Facility CPT-99416 Level 3 Est. Patient 16:53:35 CDT Иван Mooney MD [facility] CPT-88447 Level 3 Est. Patient 15:57:13 CDT Martha Montejo RADHA [facility] CPT-16588 Level 3 Est. Patient 14:30:47 INDUSTRIAL ENGINEER Hector Love MD [facility] CPT-86070 Level 3 Est. Patient 14:50:45 CDT Hector Love MD [facility] CPT-33866 Level 3 Est. Patient 21:17:30 CDT Jen Crystal MD [facility] CPT-04118 Level 3 Est. Patient 09:32:55 CDT Hector Love MD [facility] CPT-16644 Level 3 Est. Patient 15:11:08 INDUSTRIAL ENGINEER Иван Mooney MD [facility] CPT-38857 Level 3 Est. Patient 16:38:53 INDUSTRIAL ENGINEER Hector Love MD [facility] CPT-97230 Level 3 Est. Patient 15:46:05 CDT Hector Love MD [facility] CPT-51167 Level 3 Est. Patient 13:59:39 CDT Hector Love MD [facility] CPT-71183 Level 3 Est. Patient 14:44:46 INDUSTRIAL ENGINEER Hector Love MD [facility] CPT-15864 Level 3 Est. Patient 17:12:27 CDT Hector Love MD [facility] CPT-18485 Level 3 Est. Patient 15:30:32 CDT Hector Love MD [facility] CPT-59315 Level 3 Est. Patient 14:24:52 CDT Иван Mooney MD [facility] CPT-91224 Level 3 Est. Patient 14:08:38 INDUSTRIAL ENGINEER Hector Love MD [facility] Procedures Code Procedure Name Date Entry Date Standard Description CPT-52647 Immunization Single Admin 16:11:28 INDUSTRIAL ENGINEER CPT-98911 Fluzone Quadrivalent Intramuscular Suspension 0.5 ML 16: 11:28 INDUSTRIAL ENGINEER CPT-11635 Administration single or combination vaccine inc oral 13 :57:23 CDT CPT-83818 Menactra Intramuscular Injectable 13:57:23 CDT CPT-60902 First Vx Component - Ix admin via ID IM or jet inj without physician counseling 16:42:17 INDUSTRIAL ENGINEER CPT-37272 Fluzone preservative free (>=3 yrs.) 16:42:17 INDUSTRIAL ENGINEER 06/03 CPT-32123 Venipuncture Draw Fee 16:29:01 CDT CPT-48459 Chest 2V Frontal and Lat 16:23:56 CDT CPT-66708 Administration single or combination vaccine inc oral 13 :39:17 INDUSTRIAL ENGINEER CPT-10636 Tdap 13:39:17 INDUSTRIAL ENGINEER
--- OUTSIDE RECORDS SUMMARY | 2017-11-06 01:23 | XMS REPORT | Clinical Summary ---
Author Author Admin, LAMBERT Organization [facility] Address Unknown Phone Unavailable Allergies, Adverse Reactions, [...] Bronchitis, not specified as acute or chronic BRONCHITIS, ACUTE ICD-466.0 Inactive Hector Love MD [...] viral, acute ICD-008.8 Inactive Martha Montejo APRN SINUSITIS, ACUTE ICD-461.9 Inactive Hector Love MD Medication List Medication Instructions Start Date Stop Date Generic Name NDC Status Provider Patient Instruction AMOXICILLIN 500 MG CAPS 2 po BID x 10 days AMOXICILLIN 75754699175 No Longer Active Martha Montejo APRN Active ZOFRAN 4 MG TABS 1 po q6hr PRN Nausea ONDANSETRON HCL 86962242075 Active Hector Love MD Active AUGMENTIN 875-125 MG TAB 1 tab by mouth twice daily with food AMOXICILLIN-POT CLAVULANATE 89348266539 No Longer Active Hector Love MD Active FLONASE 50 MCG/ACT SUSP 2 puffs in each nostril daily PRN Allergies FLUTICASONE PROPIONATE 36068331103 Active Hector Love MD Active LEVAQUIN 500 MG TABS 1 pill by mouth daily LEVOFLOXACIN 26038794386 No Longer Active Jen Crystal MD PhD Active LISINOPRIL 5 MG TABS 1.5 tab qd LISINOPRIL 65205490757 Active Jen Crystal MD PhD Active KETOCONAZOLE 2 % CREA apply twice a day to rash KETOCONAZOLE 25870734947 No Longer Active Hector Love MD Active AUGMENTIN 875-125 MG TAB 1 tab by mouth twice daily with food AMOXICILLIN-POT CLAVULANATE 87377285267 No Longer Active Иван Mooney MD Active LOTRISONE 0.05-1 % CREAM Apply twice a day to affected area 07/19 CLOTRIMAZOLE-BETAMETHASONE 12385852350 No Longer Active Иван Mooney MD Active PROGRAF 1 MG CAPS 4 tabs po bid TACROLIMUS 51540916301 Active Hector Love MD Active FEXOFENADINE HCL 180 MG TABS 1 Daily FEXOFENADINE HCL 17575602655 No Longer Active Hector Love MD Active PROGRAF 0.5 MG CAPS Take one by mouth daily with 1 mg TACROLIMUS 24728408092 No Longer Active Hector Love MD Active AMOXICILLIN 500 MG CAPS 2 po BID x 10 days AMOXICILLIN 34476082351 No Longer Active Hector Love MD Active RAPAMUNE 1 MG TABS 3 tabs in the am SIROLIMUS 31942157310 No Longer Active Hector Love MD Active AMOXICILLIN 500 MG CAPS 2 po BID x 10 days AMOXICILLIN 49927676730 No Longer Active Hector Love MD Active LORTAB 5 5-500 MG TABS 1/2 to 1 tablet by mouth every 4 hours as needed for pain HYDROCODONE-ACETAMINOPHEN 44414316600 No Longer Active Hector Love MD Active FLUTICASONE PROPIONATE 50 MCG/ACT SUSP INSTILL 2 SPRAYS IN EACH NOSTRIL Q D FLUTICASONE PROPIONATE 15228701318 No Longer Active Hector Love MD Active PROGRAF 1 MG CAPS 1 po bid TACROLIMUS 21762253401 No Longer Active Hector Love MD Active AMOXICILLIN 875 MG TABS 1 tab by mouth twice daily AMOXICILLIN 40326927463 No Longer Active Hector Love MD Active AMOXICILLIN 500 MG CAPS 2 po BID x 10 days AMOXICILLIN 24010938320 No Longer Active Hector Love MD Active AUGMENTIN 875-125 MG TAB 1 tab by mouth twice daily with food AMOXICILLIN-POT CLAVULANATE 61163264528 No Longer Active Hector Love MD Active AZITHROMYCIN 250 MG TABS 2 po qd x 1 day, then 1 po qd x 4 days AZITHROMYCIN 84955418815 No Longer Active Hector Love MD Active CETIRIZINE HCL 10 MG TABS 1 PO Q D CETIRIZINE HCL 78619492317 No Longer Active Waleska Levy Active PROGRAF 1 MG CAPS 1 po bid PROGRAF 1 MG CAPS 676093 TACROLIMUS Inactive FLUTICASONE PROPIONATE 50 MCG/ACT SUSP INSTILL 2 SPRAYS IN EACH NOSTRIL Q D FLUTICASONE PROPIONATE 50 MCG/ACT SUSP 152350 FLUTICASONE PROPIONATE Inactive LORTAB 5 5-500 MG TABS 1/2 to 1 tablet by mouth every 4 hours as needed for pain LORTAB 5 5-500 MG TABS HYDROCODONE- ACETAMINOPHEN Inactive RAPAMUNE 1 MG TABS 3 tabs in the am RAPAMUNE 1 MG TABS 712400 SIROLIMUS Inactive PROGRAF 0.5 MG CAPS Take one by mouth daily with 1 mg PROGRAF 0.5 MG CAPS 869630 TACROLIMUS Inactive FEXOFENADINE HCL 180 MG TABS 1 Daily FEXOFENADINE HCL 180 MG TABS 039583 FEXOFENADINE HCL Inactive LOTRISONE 0.05-1 % CREAM Apply twice a day to affected area 07/19 LOTRISONE 0.05-1 % CREAM 839664 CLOTRIMAZOLE-BETAMETHASONE Inactive KETOCONAZOLE 2 % CREA apply twice a day to rash KETOCONAZOLE 2 % CREA 023026 KETOCONAZOLE Inactive AUGMENTIN 875-125 MG TAB 1 tab by mouth twice daily with food AUGMENTIN 875-125 MG TAB 862414 AMOXICILLIN-POT CLAVULANATE Inactive AMOXICILLIN 500 MG CAPS 2 po BID x 10 days AMOXICILLIN 500 MG CAPS 372813 AMOXICILLIN Inactive AMOXICILLIN 875 MG TABS 1 tab by mouth twice daily AMOXICILLIN 875 MG TABS 698214 AMOXICILLIN Inactive AMOXICILLIN 500 MG CAPS 2 po BID x 10 days AMOXICILLIN 500 MG CAPS 497058 AMOXICILLIN Inactive AMOXICILLIN 500 MG CAPS 2 po BID x 10 days AMOXICILLIN 500 MG CAPS 572683 AMOXICILLIN Inactive AUGMENTIN 875-125 MG TAB 1 tab by mouth twice daily with food AUGMENTIN 875-125 MG TAB 608036 AMOXICILLIN-POT CLAVULANATE Inactive LEVAQUIN 500 MG TABS 1 pill by mouth daily LEVAQUIN 500 MG TABS 701340 LEVOFLOXACIN Inactive AMOXICILLIN 500 MG CAPS 2 po BID x 10 days AMOXICILLIN 500 MG CAPS 929335 AMOXICILLIN Inactive Advance Directives Directive Description Start Date PERMISSION TO SHARE Immunizations Vaccine Administration Date Value Standard Description Seasonal influenza vaccine, injectable, preservative free, for > 3 years old ( Afluria, FluLaval, Fluzone, Fluvirin, Fluarix, Agriflu(>=18 yo)) Fluzone preservative free (>=3 yrs.) [[id number]] Influenza, seasonal, injectable, preservative free Adacel (Tetanus, reduced Diphtheria, and acellular Pertussis Immunization) Adacel [[id number]] tetanus toxoid, reduced diphtheria toxoid, and acellular [...] Range Description blood pressure, diastolic - 8462-4 79 mm[Hg] [...] E&M - 3141-9 234 [lb_av] Weight Measured blood pressure, diastolic - 8462-4 35 mm[Hg] BP [place] blood pressure, systolic - 8480-6 68 mm[Hg] BP sys height E&M - 8302-2 70.25 [in_us] Bdy height temperature E&M 97.8 [degF] Body temperature weight E&M - 3141-9 232.50 [lb_av] Weight Measured Diagnostic Results Date Name [...] U/L Chart Maintenance: Outside labs entered on [employer] - Hematology leukocyte count, blood 7.9 10*3/mm3 hemoglobin, blood 14.8 g/dL platelet count 223 10*3/mm3 leukocyte count, blood 8.6 10*3/mm3 hemoglobin, blood 15.0 g/dL platelet count 244 10*3/mm3 Lab Report: CBC W/DIFF, Comp. Metabolic Panel, Thyroid Stimulating Hormo ... - Chemistry protein, total urine random Negative mg/dL Negative sodium, serum 139 mmol/L 291-788 7433/07/18 potassium, serum 4.5 mmol/L 3.5-5.2 chloride, serum 101 mmol/L 98-107 carbon dioxide, venous blood 30.1 mmol/L 21.0-32.0 blood glucose 121 mg/dL 65-110 urea nitrogen, blood 9 mg/dL 7-18 creatinine, serum 0.90 mg/dL 0.60-1.30 alanine aminotransferase (SGPT), serum 39 U/L 12-78 aspartate aminotransferase (SGOT), serum 21 U/L 15-37 alkaline phosphatase, serum 83 U/L 50-136 calcium, serum 9.3 mg/dL 8.5-10.1 bilirubin, serum, total 1.30 mg/dL 0.00-1.00 TSH 3.10 m[iU]/mL 0.36-3.74 RBC, urine, dipstick Negative Negative Lab Report: CBC W/DIFF, Comp. Metabolic Panel, Thyroid Stimulating Hormo ... - Hematology leukocyte count, blood 7.6 10^3/MM^3 10*3/mm3 4.6-10.2 neutrophils as percent of blood leukocytes 46.5 % 42.2-75.2 monocytes as percent of blood leukocytes 9.6 % 1.7-9.3 lymphocytes as percent of blood leukocytes 40.5 % 20.5-51.1 erythrocyte (RBC) count 4.95 10^6/MM^3 10*6/mm3 4.69-6.13 hemoglobin, blood 14.9 g/dL 13.5-17.5 hematocrit, blood 44.1 % 41.0-53.0 mean corpuscular volume, RBC 89 fL 80-97 mean corpuscular hemoglobin, RBC 30.1 pg 27.0-31.2 mean corpuscular hemoglobin concentration, RBC 33.8 G/DL % 31.8- 35.4 red blood cell distribution width 15.0 % 11.6-14.8 platelet count 210 10^3/MM^3 10*3/mm3 142-424 Lab Report: CBC W/DIFF, Comp. Metabolic Panel, Thyroid Stimulating Hormo ... - Urinalysis glucose, urine, semiquantitative Negative Negative ketones, urine, by test strip Negative Negative bilirubin, urine Negative Negative urobilinogen, urine, semiquantitative (dipstick) 0.2 Normal leukocyte esterase, urine, by dipstick Negative Negative nitrite, urine, semiquantitative Negative Negative urine color Yellow Colorless;Lightyellow;Straw;Yellow appearance, urine Clear Clear specific gravity, urine >=1.030 1.000-1.030 pH, urine, semiquantitative 6.0 5.0-8.5 Lab Report: CBC W/DIFF, MONO w/Rflx EBV, [...] Negative Encounters Code Encounter Date Provider Facility CPT-16301 Level 3 Est. Patient 15:57:13 CDT Martha Montejo APRN [facility] CPT-92914 Level 3 Est. Patient 14:30:47 RESPIRATORY PHYSICIAN Hector Love MD [facility] CPT-20235 Level 3 Est. Patient 14:50:45 CDT Hector Love MD [facility] CPT-05679 Level 3 Est. Patient 21:17:30 CDT Jen Crystal MD, PhD [facility] CPT-83920 Level 3 Est. Patient 09:32:55 CDT Hector Love MD [facility] CPT-35381 Level 3 Est. Patient 15:11:08 RESPIRATORY PHYSICIAN Иван Mooney MD [facility] CPT-37486 Level 3 Est. Patient 16:38:53 RESPIRATORY PHYSICIAN Hector Love MD [facility] CPT-70263 Level 3 Est. Patient 15:46:05 CDT Hector Love MD [facility] CPT-09695 Level 3 Est. Patient 13:59:39 CDT Hector Love MD [facility] CPT-23050 Level 3 Est. Patient 14:44:46 RESPIRATORY PHYSICIAN Hector Love MD [facility] CPT-20703 Level 3 Est. Patient 17:12:27 CDT Hector Love MD [facility] CPT-14648 Level 3 Est. Patient 15:30:32 CDT Hector Love MD [facility] CPT-85388 Level 3 Est. Patient 14:24:52 CDT Иван Mooney MD [facility] CPT-21057 Level 3 Est. Patient 14:08:38 RESPIRATORY PHYSICIAN Hector Love MD [facility] Procedures Code Procedure Name Date Entry Date Standard Description CPT-25982 Immunization Single Admin 16:11:28 RESPIRATORY PHYSICIAN CPT-09948 Fluzone Quadrivalent Intramuscular Suspension 0.5 ML 16: 11:28 RESPIRATORY PHYSICIAN CPT-34015 Administration single or combination vaccine inc oral 13 :57:23 CDT CPT-12047 Menactra Intramuscular Injectable 13:57:23 CDT CPT-65936 First Vx Component - Ix admin via ID IM or jet inj without physician counseling 16:42:17 RESPIRATORY PHYSICIAN CPT-30341 Fluzone preservative free (>=3 yrs.) 16:42:17 RESPIRATORY PHYSICIAN 06/03 CPT-80985 Venipuncture Draw Fee 16:29:01 CDT CPT-01208 Chest 2V Frontal and Lat 16:23:56 CDT CPT-60736 Administration single or combination vaccine inc oral 13 :39:17 RESPIRATORY PHYSICIAN CPT-87537 Tdap 13:39:17 RESPIRATORY PHYSICIAN
--- OUTSIDE RECORDS SUMMARY | 2017-11-06 01:24 | XMS REPORT | Clinical Summary ---
Author Author Admin, QIE Organization [facility] Address Unknown Phone Unavailable Allergies, Adverse Reactions, [...] Gastroenteritis, viral, acute 008.8 Resolved Martha Montejo PHOTOGRAPHER AERIAL Intestinal infection due to other organism, not elsewhere classified Bronchitis 490 Resolved Hector Love MD Bronchitis, not specified as acute or chronic Pharyngitis 462 Active Иван Mooney MD Acute pharyngitis Ingrown toenail 703.0 Active Manish Castrejon PHOTOGRAPHER AERIAL Ingrowing nail Ingrown toenail, right 703.0 Active Hector Love MD Ingrowing nail FH DIABETES ICD-V18.0 Inactive Hector Love MD BRONCHITIS, ACUTE ICD-466.0 Inactive Hector Love MD KNEE SPRAIN, LEFT ICD-844.9 Inactive Hector Love MD U R I ICD-465.9 Inactive Hector Love MD COUGH ICD-786.2 Inactive Hector Love MD COSTOCHRONDRITIS ICD-733.6 Inactive Hector Lvoe MD SINUSITIS, ACUTE ICD-461.9 Inactive Hector Love [...] each nostril daily prn allergies FLUTICASONE PROPIONATE 11520465978 Active Hector Love MD Active HYDROCODONE-ACETAMINOPHEN 5-325 MG TABS 1/2 to 1 po q 4 hours prn pain 11/06 HYDROCODONE-ACETAMINOPHEN 30265714828 Active Hector Love MD Active AUGMENTIN 875-125 MG TAB 1 po BID x 10 days AMOXICILLIN-POT CLAVULANATE 26196704242 No Longer Active Hector Love MD Active FLONASE ALLERGY RELIEF 50 MCG/ACT NASAL SUSP 2 sprays each nostril daily PRN allergies FLUTICASONE PROPIONATE 35993505238 No Longer Active Hector Love MD Active AMOXICILLIN 500 MG CAPS 1 cap by mouth three times a day AMOXICILLIN 83331335219 No Longer Active Jillina Fragretal PHOTOGRAPHER AERIAL Active KEFLEX 500 MG CAP 1 tab po tid CEPHALEXIN 61163020150 No Longer Active Jillina Frazell PHOTOGRAPHER AERIAL Active AMOXICILLIN 500 MG TABS 2 tabs twice a day for 10 days AMOXICILLIN 34851291781 No Longer Active Jillina Frazell PHOTOGRAPHER AERIAL Active ZYRTEC ALLERGY 10 MG CAPS 1 po qd CETIRIZINE HCL 38126063534 Active Hector Love MD Active PROGRAF 1 MG CAPS 2 tabs po bid TACROLIMUS 12973396297 Active Hector Love MD Active ZOFRAN 4 MG TABS 1 po q6hr PRN Nausea ONDANSETRON HCL 27201703608 No Longer Active Ramona Diggs LPN Active AMOXICILLIN 500 MG CAPS 2 po BID x 10 days AMOXICILLIN 27023640340 No Longer Active Martha Montejo APRN Active AUGMENTIN 875-125 MG TAB 1 tab by mouth twice daily with food AMOXICILLIN-POT CLAVULANATE 55861061753 No Longer Active Hector Love MD Active LEVAQUIN 500 MG TABS 1 pill by mouth daily LEVOFLOXACIN 35802614269 No Longer Active Jen Crystal MD PhD Active LISINOPRIL 5 MG TABS 1.5 tab qd LISINOPRIL 42512421120 Active eJn Crystal MD PhD Active KETOCONAZOLE 2 % CREA apply twice a day to rash KETOCONAZOLE 36736039657 No Longer Active Hector Love MD Active AUGMENTIN 875-125 MG TAB 1 tab by mouth twice daily with food AMOXICILLIN-POT CLAVULANATE 72528006483 No Longer Active Иван Mooney MD Active LOTRISONE 0.05-1 % CREAM Apply twice a day to affected area 07/19 CLOTRIMAZOLE-BETAMETHASONE 32120716222 No Longer Active Иван Mooney MD Active FEXOFENADINE HCL 180 MG TABS 1 Daily FEXOFENADINE HCL 25836483974 No Longer Active Hector Love MD Active PROGRAF 0.5 MG CAPS Take one by mouth daily with 1 mg TACROLIMUS 63622203464 No Longer Active Hector Love MD Active AMOXICILLIN 500 MG CAPS 2 po BID x 10 days AMOXICILLIN 59426466974 No Longer Active Hector Love MD Active RAPAMUNE 1 MG TABS 3 tabs in the am SIROLIMUS 54982565165 No Longer Active Hector Love MD Active AMOXICILLIN 500 MG CAPS 2 po BID x 10 days AMOXICILLIN 23689048306 No Longer Active Hector Love MD Active LORTAB 5 5-500 MG TABS 1/2 to 1 tablet by mouth every 4 hours as needed for pain HYDROCODONE-ACETAMINOPHEN 24765200896 No Longer Active Hector Love MD Active FLUTICASONE PROPIONATE 50 MCG/ACT SUSP INSTILL 2 SPRAYS IN EACH NOSTRIL Q D FLUTICASONE PROPIONATE 95575143196 No Longer Active Hector Love MD Active PROGRAF 1 MG CAPS 1 po bid TACROLIMUS 55499408653 No Longer Active Hector Love MD Active AMOXICILLIN 875 MG TABS 1 tab by mouth twice daily AMOXICILLIN 32792901343 No Longer Active Hector Love MD Active AMOXICILLIN 500 MG CAPS 2 po BID x 10 days AMOXICILLIN 74243220205 No Longer Active Hector Love MD Active AUGMENTIN 875-125 MG TAB 1 tab by mouth twice daily with food AMOXICILLIN-POT CLAVULANATE 18230473058 No Longer Active Hector Love MD Active AZITHROMYCIN 250 MG TABS 2 po qd x 1 day, then 1 po qd x 4 days AZITHROMYCIN 34047302978 No Longer Active Hector Love MD Active CETIRIZINE HCL 10 MG TABS 1 PO Q D CETIRIZINE HCL 80050891351 No Longer Active Waleska [place] Active PROGRAF 1 MG CAPS 1 po bid PROGRAF 1 MG CAPS 160489 TACROLIMUS Inactive FLUTICASONE PROPIONATE 50 MCG/ACT SUSP INSTILL 2 SPRAYS IN EACH NOSTRIL Q D FLUTICASONE PROPIONATE 50 MCG/ACT SUSP 450891 FLUTICASONE PROPIONATE Inactive LORTAB 5 5-500 MG TABS 1/2 to 1 tablet by mouth every 4 hours as needed for pain LORTAB 5 5-500 MG TABS HYDROCODONE- ACETAMINOPHEN Inactive RAPAMUNE 1 MG TABS 3 tabs in the am RAPAMUNE 1 MG TABS 920445 SIROLIMUS Inactive PROGRAF 0.5 MG CAPS Take one by mouth daily with 1 mg PROGRAF 0.5 MG CAPS 568324 TACROLIMUS Inactive FEXOFENADINE HCL 180 MG TABS 1 Daily FEXOFENADINE HCL 180 MG TABS 734045 FEXOFENADINE HCL Inactive LOTRISONE 0.05-1 % CREAM Apply twice a day to affected area 07/19 LOTRISONE 0.05-1 % CREAM 097684 CLOTRIMAZOLE-BETAMETHASONE Inactive KETOCONAZOLE 2 % CREA apply twice a day to rash KETOCONAZOLE 2 % CREA 688054 KETOCONAZOLE Inactive AUGMENTIN 875-125 MG TAB 1 tab by mouth twice daily with food AUGMENTIN 875-125 MG TAB 458571 AMOXICILLIN-POT CLAVULANATE Inactive ZOFRAN 4 MG TABS 1 po q6hr PRN Nausea ZOFRAN 4 MG TABS 303217 ONDANSETRON HCL Inactive AMOXICILLIN 500 MG TABS 2 tabs twice a day for 10 days AMOXICILLIN 500 MG TABS 534676 AMOXICILLIN Inactive FLONASE ALLERGY RELIEF 50 MCG/ACT NASAL SUSP 2 sprays each nostril daily PRN allergies FLONASE ALLERGY RELIEF 50 MCG/ACT NASAL SUSP 119528 FLUTICASONE PROPIONATE Inactive AMOXICILLIN 500 MG CAPS 2 po BID x 10 days AMOXICILLIN 500 MG CAPS 656384 AMOXICILLIN Inactive AMOXICILLIN 875 MG TABS 1 tab by mouth twice daily AMOXICILLIN 875 MG TABS 178036 AMOXICILLIN Inactive AMOXICILLIN 500 MG CAPS 2 po BID x 10 days AMOXICILLIN 500 MG CAPS 974300 AMOXICILLIN Inactive AMOXICILLIN 500 MG CAPS 2 po BID x 10 days AMOXICILLIN 500 MG CAPS 582094 AMOXICILLIN Inactive AUGMENTIN 875-125 MG TAB 1 tab by mouth twice daily with food AUGMENTIN 875-125 MG TAB 564141 AMOXICILLIN-POT CLAVULANATE Inactive LEVAQUIN 500 MG TABS 1 pill by mouth daily LEVAQUIN 500 MG TABS 326717 LEVOFLOXACIN Inactive AMOXICILLIN 500 MG CAPS 2 po BID x 10 days AMOXICILLIN 500 MG CAPS 828754 AMOXICILLIN Inactive AMOXICILLIN 500 MG CAPS 1 cap by mouth three times a day AMOXICILLIN 500 MG CAPS 907592 AMOXICILLIN Inactive AUGMENTIN 875-125 MG TAB 1 po BID x 10 days AUGMENTIN 875-125 MG TAB 892048 AMOXICILLIN-POT CLAVULANATE Inactive Advance Directives Directive Description Start Date PERMISSION TO SHARE Immunizations Vaccine Administration Date Value Standard Description Seasonal influenza vaccine, injectable, preservative free, for > 3 years old ( Afluria, FluLaval, Fluzone, Fluvirin, Fluarix, Agriflu(>=18 yo)) Fluzone preservative free (>=3 yrs.) [[id number]] Influenza, seasonal, injectable, preservative free Adacel (Tetanus, reduced Diphtheria, and acellular Pertussis Immunization) Adacel [[id number]] tetanus toxoid, reduced diphtheria toxoid, and acellular [...] Negative Encounters Code Encounter Date Provider Facility CPT-23732 Level 3 Est. Patient 16:14:45 CDT Hector Love MD [facility] CPT-07585 Level 3 Est. Patient 16:53:35 CDT Иван Mooney MD [facility] CPT-35698 Level 3 Est. Patient 15:57:13 CDT Martha Montejo APRN [facility] CPT-67841 Level 3 Est. 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 Patient 14:50:45 CDT Hector Love MD [facility] CPT-37649 Level 3 Est. Patient 21:17:30 CDT Jen Crystal MD, PhD [facility] CPT-72275 Level 3 Est. Patient 09:32:55 CDT Hector Love MD [facility] CPT-44367 Level 3 Est. 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 Patient 15:46:05 CDT Hector Love MD [facility] CPT-79701 Level 3 Est. Patient 13:59:39 CDT Hector Love MD [facility] CPT-92965 Level 3 Est. 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 Patient 17:12:27 CDT Hector Love MD [facility] CPT-85679 Level 3 Est. Patient 15:30:32 CDT Hector Love MD [facility] CPT-95438 Level 3 Est. Patient 14:24:52 CDT Иван Mooney MD [facility] CPT-27082 Level 3 Est. 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 Hector Love MD [facility] Procedures Code Procedure Name Date Entry Date Standard Description CPT-03164 Fluzone Quadrivalent Intramuscular Suspension 0.5 ML 16: 12:26 HIGH SCHOOL ASSISTANT FOOTBALL COACH CPT-47753 Immunization Single Admin 16:12:26 HIGH SCHOOL ASSISTANT FOOTBALL COACH CPT-J0561 Bicillin LA 1,200,000 u (PCN G Benzathine) 16:40:23 CDT CPT-54547 Abx/Therapy Injection 16:40:22 CDT CPT-J0561 Bicillin LA 1,200,000 u (PCN G Benzathine) 16:15:35 CDT CPT-57002 Immunization Single Admin 16:11:28 HIGH SCHOOL ASSISTANT FOOTBALL COACH CPT-45932 Fluzone Quadrivalent Intramuscular Suspension 0.5 ML 16: 11:28 HIGH SCHOOL ASSISTANT FOOTBALL COACH CPT-34343 Administration single or combination vaccine inc oral 13 :57:23 CDT CPT-61605 Menactra Intramuscular Injectable 13:57:23 CDT CPT-80230 First Vx Component - Ix admin via ID IM or jet inj without physician counseling 16:42:17 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
--- OUTSIDE RECORDS SUMMARY | 2017-11-06 01:25 | XMS REPORT | Clinical Summary ---
Author Author Admin, LAMBERT Organization [facility] Address Unknown Phone Unavailable Allergies, Adverse Reactions, [...] Fever, unspecified Memory impairment 780.9 Inactive Hector oLve MD Other general symptoms Memory loss 780.93 [...] care facility Fatigue 780.79 Active Manish Castrejon NETWORK MANAGER Other malaise and fatigue Body Mass Index 34.0-34.9 Adult Active Manish Castrejon NETWORK MANAGER Body Mass Index 34.0-34.9, adult HYPERTENSION ICD-401.9 [...] Gastroenteritis, viral, acute ICD-008.8 Inactive Martha Montejo NETWORK MANAGER Bronchitis ICD-490 Inactive Hector Love MD [...] MG ORAL CAPSULE 2 po BID TACROLIMUS 76247940121 Active Hector Love MD Active CETIRIZINE HCL 10 MG ORAL TABLET 1 po qd PRN Allergies CETIRIZINE HCL 17206018092 Active Hector Love MD Active LISINOPRIL 5 MG ORAL TABLET 1.5 po qd LISINOPRIL 68168829298 Active Hector Love MD Active FLUTICASONE PROPIONATE 50 MCG/ACT NASAL SUSPENSION 2 sprays/nostril qd PRN Congestion/Allergies FLUTICASONE PROPIONATE 62051927280 Active Hector Love MD Active VITAMIN C 500 MG ORAL TABLET CHEWABLE ASCORBIC ACID 62031571094 No Longer Active Hector Love MD Active PREDNISONE 20 MG ORAL TABLET 1 tablet daily x 2 days PREDNISONE 48459382041 No Longer Active aMnish Castrejon APRN Active AMOXICILLIN 500 MG ORAL TABLET Take two tablets by mouth every 12 hours for 10 days AMOXICILLIN 73579837156 No Longer Active Иван Mooney MD Active PREDNISONE 20 MG ORAL TABLET 2 po qd x 4 days PREDNISONE 78300938567 No Longer Active Hector Love MD Active HYDROCODONE-ACETAMINOPHEN 5-325 MG ORAL TABLET 1/2 to 1 po q 4 hours prn pain HYDROCODONE-ACETAMINOPHEN 96111760699 No Longer Active Hector Love MD Active AUGMENTIN 875-125 MG ORAL TABLET 1 po BID x 10 days AMOXICILLIN-POT CLAVULANATE 54964083493 No Longer Active Hector Love MD Active FLONASE ALLERGY RELIEF 50 MCG/ACT NASAL SUSPENSION 2 sprays each nostril daily PRN allergies FLUTICASONE PROPIONATE 95989645088 No Longer Active Hector Love MD Active AMOXICILLIN 500 MG ORAL CAPSULE 1 cap by mouth three times a day AMOXICILLIN 83570400464 No Longer Active Manish Castrejon APRN Active KEFLEX 500 MG ORAL CAPSULE 1 tab po tid CEPHALEXIN 61286323019 No Longer Active Jillina Fradebora GARCIA Active AMOXICILLIN 500 MG ORAL TABLET 2 tabs twice a day for 10 days AMOXICILLIN 07302252207 No Longer Active Elijahlldenise Fradebora GARCIA Active ZOFRAN 4 MG ORAL TABLET 1 po q6hr PRN Nausea ONDANSETRON HCL 04930012702 No Longer Active Ramona Diggs LPN Active AMOXICILLIN 500 MG ORAL CAPSULE 2 po BID x 10 days AMOXICILLIN 92712814556 No Longer Active Martha Montejo APRN Active AUGMENTIN 875-125 MG ORAL TABLET 1 tab by mouth twice daily with food AMOXICILLIN-POT CLAVULANATE 35772199616 No Longer Active Hector Love MD Active LEVAQUIN 500 MG ORAL TABLET 1 pill by mouth daily LEVOFLOXACIN 95010506200 No Longer Active Jen Crystal MD PhD Active KETOCONAZOLE 2 % EXTERNAL CREAM apply twice a day to rash KETOCONAZOLE 87037146185 No Longer Active Hector Love MD Active AUGMENTIN 875-125 MG ORAL TABLET 1 tab by mouth twice daily with food AMOXICILLIN-POT CLAVULANATE 29553378149 No Longer Active Иван Mooney MD Active LOTRISONE 1-0.05 % EXTERNAL CREAM Apply twice a day to affected area CLOTRIMAZOLE-BETAMETHASONE 20321410802 No Longer Active Иван Mooney MD Active FEXOFENADINE HCL 180 MG ORAL TABLET 1 Daily FEXOFENADINE HCL 12569292054 No Longer Active Hector Love MD Active PROGRAF 0.5 MG ORAL CAPSULE Take one by mouth daily with 1 mg TACROLIMUS 17045183243 No Longer Active Hector Love MD Active AMOXICILLIN 500 MG ORAL CAPSULE 2 po BID x 10 days AMOXICILLIN 58955894181 No Longer Active Hector Love MD Active RAPAMUNE 1 MG ORAL TABLET 3 tabs in the am SIROLIMUS 96951856657 No Longer Active Hector Love MD Active AMOXICILLIN 500 MG ORAL CAPSULE 2 po BID x 10 days AMOXICILLIN 10073137671 No Longer Active Hector Love MD Active LORTAB 5-500 MG ORAL TABLET 1/2 to 1 tablet by mouth every 4 hours as needed for pain HYDROCODONE-ACETAMINOPHEN 10334429736 No Longer Active Hector Love MD Active FLUTICASONE PROPIONATE 50 MCG/ACT NASAL SUSPENSION INSTILL 2 SPRAYS IN EACH NOSTRIL Q D FLUTICASONE PROPIONATE 03381728313 No Longer Active Hector Love MD Active PROGRAF 1 MG ORAL CAPSULE 1 po bid TACROLIMUS 73731347656 No Longer Active Hector Love MD Active AMOXICILLIN 875 MG ORAL TABLET 1 tab by mouth twice daily AMOXICILLIN 69039807775 No Longer Active Hector Love MD Active AMOXICILLIN 500 MG ORAL CAPSULE 2 po BID x 10 days AMOXICILLIN 06477373407 No Longer Active Hector Love MD Active AUGMENTIN 875-125 MG ORAL TABLET 1 tab by mouth twice daily with food AMOXICILLIN-POT CLAVULANATE 27643510117 No Longer Active Hector Love MD Active AZITHROMYCIN 250 MG ORAL TABLET 2 po qd x 1 day, then 1 po qd x 4 days 06/19 AZITHROMYCIN 89141230744 No Longer Active Hector Love MD Active CETIRIZINE HCL 10 MG ORAL TABLET 1 PO Q D CETIRIZINE HCL 90931179405 No Longer Active [place] Active PROGRAF 1 MG ORAL CAPSULE 1 po bid PROGRAF 1 MG ORAL CAPSULE 880388 TACROLIMUS Inactive FLUTICASONE PROPIONATE 50 MCG/ACT NASAL SUSPENSION INSTILL 2 SPRAYS IN EACH NOSTRIL Q D FLUTICASONE PROPIONATE 50 MCG/ACT NASAL SUSPENSION 9521057 FLUTICASONE PROPIONATE Inactive LORTAB 5-500 MG ORAL TABLET 1/2 to 1 tablet by mouth every 4 hours as needed for pain LORTAB 5-500 MG ORAL TABLET HYDROCODONE- ACETAMINOPHEN Inactive RAPAMUNE 1 MG ORAL TABLET 3 tabs in the am RAPAMUNE 1 MG ORAL TABLET 557578 SIROLIMUS Inactive PROGRAF 0.5 MG ORAL CAPSULE Take one by mouth daily with 1 mg PROGRAF 0.5 MG ORAL CAPSULE 796818 TACROLIMUS Inactive FEXOFENADINE HCL 180 MG ORAL TABLET 1 Daily FEXOFENADINE HCL 180 MG ORAL TABLET 527788 FEXOFENADINE HCL Inactive LOTRISONE 1-0.05 % EXTERNAL CREAM Apply twice a day to affected area LOTRISONE 1-0.05 % EXTERNAL CREAM 929375 CLOTRIMAZOLE- BETAMETHASONE Inactive KETOCONAZOLE 2 % EXTERNAL CREAM apply twice a day to rash KETOCONAZOLE 2 % EXTERNAL CREAM 088397 KETOCONAZOLE Inactive AUGMENTIN 875-125 MG ORAL TABLET 1 tab by mouth twice daily with food AUGMENTIN 875-125 MG ORAL TABLET 792198 AMOXICILLIN-POT CLAVULANATE Inactive ZOFRAN 4 MG ORAL TABLET 1 po q6hr PRN Nausea ZOFRAN 4 MG ORAL TABLET 715934 ONDANSETRON HCL Inactive AMOXICILLIN 500 MG ORAL TABLET 2 tabs twice a day for 10 days AMOXICILLIN 500 MG ORAL TABLET 965611 AMOXICILLIN Inactive FLONASE ALLERGY RELIEF 50 MCG/ACT NASAL SUSPENSION 2 sprays each nostril daily PRN allergies FLONASE ALLERGY RELIEF 50 MCG/ACT NASAL SUSPENSION 3663302 FLUTICASONE PROPIONATE Inactive HYDROCODONE-ACETAMINOPHEN 5-325 MG ORAL TABLET 1/2 to 1 po q 4 hours prn pain HYDROCODONE-ACETAMINOPHEN 5-325 MG ORAL TABLET 391417 HYDROCODONE-ACETAMINOPHEN Inactive PREDNISONE 20 MG ORAL TABLET 1 tablet daily x 2 days PREDNISONE 20 MG ORAL TABLET 366206 PREDNISONE Inactive VITAMIN C 500 MG ORAL TABLET CHEWABLE VITAMIN C 500 MG ORAL TABLET CHEWABLE ASCORBIC ACID Inactive AMOXICILLIN 500 MG ORAL CAPSULE 2 po BID x 10 days AMOXICILLIN 500 MG ORAL CAPSULE 153927 AMOXICILLIN Inactive AMOXICILLIN 875 MG ORAL TABLET 1 tab by mouth twice daily AMOXICILLIN 875 MG ORAL TABLET 992314 AMOXICILLIN Inactive AMOXICILLIN 500 MG ORAL CAPSULE 2 po BID x 10 days AMOXICILLIN 500 MG ORAL CAPSULE 241034 AMOXICILLIN Inactive AMOXICILLIN 500 MG ORAL CAPSULE 2 po BID x 10 days AMOXICILLIN 500 MG ORAL CAPSULE 231326 AMOXICILLIN Inactive AUGMENTIN 875-125 MG ORAL TABLET 1 tab by mouth twice daily with food AUGMENTIN 875-125 MG ORAL TABLET 274889 AMOXICILLIN-POT CLAVULANATE Inactive LEVAQUIN 500 MG ORAL TABLET 1 pill by mouth daily LEVAQUIN 500 MG ORAL TABLET 519590 LEVOFLOXACIN Inactive AMOXICILLIN 500 MG ORAL CAPSULE 2 po BID x 10 days AMOXICILLIN 500 MG ORAL CAPSULE 127312 AMOXICILLIN Inactive AMOXICILLIN 500 MG ORAL CAPSULE 1 cap by mouth three times a day AMOXICILLIN 500 MG ORAL CAPSULE 617118 AMOXICILLIN Inactive AUGMENTIN 875-125 MG ORAL TABLET 1 po BID x 10 days AUGMENTIN 875-125 MG ORAL TABLET 341906 AMOXICILLIN-POT CLAVULANATE Inactive PREDNISONE 20 MG ORAL TABLET 2 po qd x 4 days PREDNISONE 20 MG ORAL TABLET 018468 PREDNISONE Inactive AMOXICILLIN 500 MG ORAL TABLET Take two tablets by mouth every 12 hours for 10 days AMOXICILLIN 500 MG ORAL TABLET 936523 AMOXICILLIN Inactive Advance Directives Directive Description Start Date PERMISSION TO SHARE Immunizations Vaccine Administration Date Value Standard Description Seasonal influenza vaccine, injectable, preservative free, for > 3 years old ( Afluria, FluLaval, Fluzone, Fluvirin, Fluarix, Agriflu(>=18 yo)) Fluzone preservative free (>=3 yrs.) [GOM926] Influenza, seasonal, injectable, preservative free Adacel (Tetanus, reduced Diphtheria, and acellular Pertussis Immunization) Adacel [LSS158] tetanus toxoid, reduced diphtheria toxoid, and acellular [...] Panel - Chemistry sodium, serum 137 mmol/L 197-027 3014/08/14 carbon dioxide, venous blood 29.7 mmol/L 21.0-32.0 potassium, serum 4.3 mmol/L 3.5-5.2 chloride, serum 99 mmol/L 98-107 blood glucose 123 mg/dL 65-110 urea nitrogen, blood 12 mg/dL 7-18 creatinine, serum 0.84 mg/dL 0.60-1.30 alanine aminotransferase (SGPT), serum 48 U/L 12-78 aspartate aminotransferase (SGOT), serum 26 U/L 15-37 calcium, serum 9.4 mg/dL 8.5-10.1 bilirubin, serum, total 1.60 mg/dL 0.00-1.00 cholesterol, serum 141 mg/dL 283-539 5375/08/14 triglyceride, serum, fasting 54 mg/dL 30-200 HDL [...] ... - Chemistry sodium, serum 137 mmol/L 167-230 4572/04/23 carbon dioxide, venous blood 28.4 mmol/L 21.0-32.0 [...] semiquantitative 6.0 5.0-8.5 Lab Report: VITAMIN D, 25-HYDROXY/[id number] - Chemistry vitamin D 25-hydroxy, serum 18 ng/mL 30-100 vitamin D 25-hydroxy, serum 44 ng/mL 30-100 Encounters Code Encounter Date Provider Facility CPT-09342 Level 3 Est. Patient 10:49:01 OTTOT Jillina Frazell [facility] CPT-12667 Level 3 Est. Patient 11:35:07 CDT Elijahudaydenise Castrejon [facility] CPT-26796 Level 3 Est. Patient 17:22:36 CDT Tracy Frey [facility] CPT-12656 Level 3 Est. Patient 16:06:03 CDT Manish Chasel [facility] CPT-42511 Level 3 Est. Patient 09:57:24 CDT Manish Chasealejandrina [facility] CPT-81181 Level 3 Est. Patient 16:31:04 CDT Иван Mooney MD [facility] CPT-34034 Level 4 Est. Patient 12:02:18 CDT Hector Love MD [facility] CPT-02279 Level 3 Est. Patient 16:14:45 CDT Hector Love MD [facility] CPT-68241 Level 3 Est. Patient 16:53:35 CDT Иван Mooney MD [facility] CPT-12668 Level 3 Est. Patient 15:57:13 CDT Martha Nikia [facility] CPT-61711 Level 3 Est. Patient 14:30:47 ISOTOPE TECHNICIAN Hector Love MD [facility] CPT-48571 Level 3 Est. Patient 14:50:45 CDT Hector Love MD [facility] CPT-41916 Level 3 Est. Patient 21:17:30 CDT Jen Crystal MD PhD [facility] CPT-44884 Level 3 Est. Patient 09:32:55 CDT Hector Love MD [facility]-27108 Level 3 Est. Patient 15:11:08 ISOTOPE TECHNICIAN Иван Mooney MD [facility] CPT-00512 Level 3 Est. Patient 16:38:53 ISOTOPE TECHNICIAN Hector Love MD [facility] CPT-18994 Level 3 Est. Patient 15:46:05 CDT Hector Love MD [facility] CPT-18395 Level 3 Est. Patient 13:59:39 CDT Hector Love MD [facility] CPT-24023 Level 3 Est. Patient 14:44:46 ISOTOPE TECHNICIAN Hector Love MD [facility] CPT-44720 Level 3 Est. Patient 17:12:27 CDT Hector Love MD [facility] CPT-68029 Level 3 Est. Patient 15:30:32 CDT Hector Love MD [facility] CPT-14613 Level 3 Est. Patient 14:24:52 CDT Иван Mooney MD [facility] CPT-93388 Level 3 Est. Patient 14:08:38 ISOTOPE TECHNICIAN Hector Love MD [facility] Procedures Code Procedure Name Date Entry Date Standard Description CPT-40393 Chest, 2 views 11:04:30 CDT CPT-04098 Venipuncture Draw Fee 16:18:26 CDT CPT-87351 TB Skin Test 09:57:25 CDT CPT-000 Give Appropriate Flu Vaccine 16:22:23 ISOTOPE TECHNICIAN CPT-59280 Free T4 - LAB USE ONLY 11:38:58 CDT CPT-19477 TSH - LAB USE ONLY 11:38:58 CDT CPT-98572 Venipuncture Draw Fee 11:38:58 CDT CPT-58403 Fluzone Quadrivalent Intramuscular Suspension 0.5 ML 16: 12:26 ISOTOPE TECHNICIAN CPT-15972 Immunization Single Admin 16:12:26 ISOTOPE TECHNICIAN CPT-J0561 Bicillin LA 1,200,000 u (PCN G Benzathine) 16:40:23 CDT CPT-73634 Abx/Therapy Injection 16:40:22 CDT CPT-J0561 Bicillin LA 1,200,000 u (PCN G Benzathine) 16:15:35 CDT CPT-92077 Immunization Single Admin 16:11:28 ISOTOPE TECHNICIAN CPT-74477 Fluzone Quadrivalent Intramuscular Suspension 0.5 ML 16: 11:28 ISOTOPE TECHNICIAN CPT-26941 Administration single or combination vaccine inc oral 13 :57:23 CDT CPT-93249 Menactra Intramuscular Injectable 13:57:23 CDT CPT-44546 First Vx Component - Ix admin via ID IM or jet inj without physician counseling 16:42:17 ISOTOPE TECHNICIAN CPT-84984 Fluzone preservative free (>=3 yrs.) 16:42:17 ISOTOPE TECHNICIAN 06/03 CPT-34364 Venipuncture Draw Fee 16:29:01 CDT CPT-74375 Chest 2V Frontal and Lat 16:23:56 CDT CPT-60466 Administration single or combination vaccine inc oral 13 :39:17 ISOTOPE TECHNICIAN CPT-67026 Tdap 13:39:17 ISOTOPE TECHNICIAN
--- OUTSIDE RECORDS SUMMARY | 2017-11-06 01:25 | XMS REPORT ---
Author Author [facility] [facility] Medical Staff Organization [facility] [employer] [facility] Address [address] [place] [id number] Phone [phone] Care Team Providers Care Commercial Loan Processor Name Role Phone TRINI FRAIRE MD PP [phone] Summary purpose TRANSITION OF CARE AUTO GENERATION [...] Code Type Description Date Performed Performing Physician 80161 CPT-4 EMERGENCY DEPT VISIT 06-20-2015 ATA KRISHNAN 58217 CPT-4 EMERGENCY DEPT VISIT 06-20-2015 ATA KRISHNAN Functional status Functional Status Finding Observation Time Muscle Strength RUE 5 ROM full resist [id number]:17 Muscle Strength RLE 5 ROM full resist 48-17-002466:17 Muscle Strength LUE 5 ROM full resist [id number]:17 Muscle Strength LLE 5 ROM full resist :17 Abdomen Appearance round :17 Abdomen non-tender :17 Bowel Sounds present :17 [place] no 41-50-341258:17 Urination normal :17 Quality sym/unlabored :17 Cough absent :17 Secretions no :17 Breath Sounds RUL clear :17 Breath Sounds RML clear :17 Breath Sounds RLL clear :17 Breath Sounds PAULA clear :17 Breath Sounds LLL clear :17 Airway natural :17 Oxygen no :00 Temp >100.4 no :00 Temp <96.8 no :00 Chills with rigors no : HR > 90bpm no :00 Respirations > 20 no :00 Systolic <90 no :00 headache stiff neck no :00 Nursing Note pt given 1 tab augmentin PO with sips H20, given DC instructions and given script, pt voices understranding of instructions, pt voices no questions or concerns, in stable condition, ambulated off unit out to private vehicle. 06-20:00 Vital signs Type Value Date Respiration Rate 18breaths per minute :00 Pulse 86beats per minute :00 Oxygen Saturation 99% :00 BP Systolic 131mmHg :00 BP Diastolic 78mmHg :00 Temperature 98.7F 70-77-852082:00 Social history Type Value Smoking Status NEVER SMOKER Treatment Plan No treatment plan text is available for this visit. Hospital discharge instructions Dismissal Condition good Disposition on DC home DC Inst/Educ Give yes Med/Side Effects Rev yes Flu Vac 2015 Tetanus Vac unk
--- OUTSIDE RECORDS SUMMARY | 2017-11-06 01:26 | XMS REPORT | Clinical Summary ---
Author Author Admin, QIE Organization [facility] Address Unknown Phone Unavailable Allergies, Adverse [...] Acute sinusitis, unspecified FEVER UNSPECIFIED 780.60 Resolved Hcetor Love MD Fever, unspecified Tinea corporis 110.5 [...] care facility Fatigue 780.79 Active Manish Castrejon [employer]INT [employer] Other malaise and fatigue Body Mass Index 34.0-34.9 Adult Active Manish Castrejon [employer]INT W[employer] Body Mass Index 34.0-34.9, adult HYPERTENSION ICD-401.9 [...] Gastroenteritis, viral, acute ICD-008.8 Inactive Martha Montejo [employer]INT W[employer]ER Bronchitis ICD-490 Inactive Hector Love MD 2014 [...] MG ORAL CAPSULE 2 po BID TACROLIMUS 34019583294 Active Hector Love MD Active CETIRIZINE HCL 10 MG ORAL TABLET 1 po qd PRN Allergies CETIRIZINE HCL 50765038485 Active Hector Love MD Active LISINOPRIL 5 MG ORAL TABLET 1.5 po qd LISINOPRIL 68733467872 Vivek Love MD Active FLUTICASONE PROPIONATE 50 MCG/ACT NASAL SUSPENSION 2 sprays/nostril qd PRN Congestion/Allergies FLUTICASONE PROPIONATE 88741865230 Active Hector Love MD Active VITAMIN C 500 MG ORAL TABLET CHEWABLE ASCORBIC ACID 47013449359 No Longer Active Hector Love MD Active PREDNISONE 20 MG ORAL TABLET 1 tablet daily x 2 days PREDNISONE 49921882371 No Longer Active Manish Castrejon APRN Active AMOXICILLIN 500 MG ORAL TABLET Take two tablets by mouth every 12 hours for 10 days AMOXICILLIN 80333619246 No Longer Active Иван Mooney MD Active PREDNISONE 20 MG ORAL TABLET 2 po qd x 4 days PREDNISONE 00340004517 No Longer Active Hector Love MD Active HYDROCODONE-ACETAMINOPHEN 5-325 MG ORAL TABLET 1/2 to 1 po q 4 hours prn pain HYDROCODONE-ACETAMINOPHEN 68515047420 No Longer Active Hector Love MD Active AUGMENTIN 875-125 MG ORAL TABLET 1 po BID x 10 days AMOXICILLIN-POT CLAVULANATE 35520779575 No Longer Active Hector Love MD Active FLONASE ALLERGY RELIEF 50 MCG/ACT NASAL SUSPENSION 2 sprays each nostril daily PRN allergies FLUTICASONE PROPIONATE 90076331516 No Longer Active Hector Love MD Active AMOXICILLIN 500 MG ORAL CAPSULE 1 cap by mouth three times a day AMOXICILLIN 58795822493 No Longer Active Manish Castrejon APRN Active KEFLEX 500 MG ORAL CAPSULE 1 tab po tid CEPHALEXIN 06514202071 No Longer Active Jillina Fradebora GARCIA Active AMOXICILLIN 500 MG ORAL TABLET 2 tabs twice a day for 10 days AMOXICILLIN 71553659407 No Longer Active Jilldenise Fradebora GARCIA Active ZOFRAN 4 MG ORAL TABLET 1 po q6hr PRN Nausea ONDANSETRON HCL 57581188612 No Longer Active Ramona Diggs LPN Active AMOXICILLIN 500 MG ORAL CAPSULE 2 po BID x 10 days AMOXICILLIN 60300917341 No Longer Active Martha Montejo APRN Active AUGMENTIN 875-125 MG ORAL TABLET 1 tab by mouth twice daily with food AMOXICILLIN-POT CLAVULANATE 83770371507 No Longer Active Hector Love MD Active LEVAQUIN 500 MG ORAL TABLET 1 pill by mouth daily LEVOFLOXACIN 76159058766 No Longer Active Jen Crystal MD PhD Active KETOCONAZOLE 2 % EXTERNAL CREAM apply twice a day to rash KETOCONAZOLE 98975460449 No Longer Active Hector Love MD Active AUGMENTIN 875-125 MG ORAL TABLET 1 tab by mouth twice daily with food AMOXICILLIN-POT CLAVULANATE 63538498509 No Longer Active Иван Mooney MD Active LOTRISONE 1-0.05 % EXTERNAL CREAM Apply twice a day to affected area CLOTRIMAZOLE-BETAMETHASONE 57573461330 No Longer Active Иван Mooney MD Active FEXOFENADINE HCL 180 MG ORAL TABLET 1 Daily FEXOFENADINE HCL 85144857739 No Longer Active Hector Love MD Active PROGRAF 0.5 MG ORAL CAPSULE Take one by mouth daily with 1 mg TACROLIMUS 88999610917 No Longer Active Hector Love MD Active AMOXICILLIN 500 MG ORAL CAPSULE 2 po BID x 10 days AMOXICILLIN 55995553062 No Longer Active Hector Love MD Active RAPAMUNE 1 MG ORAL TABLET 3 tabs in the am SIROLIMUS 64096180606 No Longer Active Hector Love MD Active AMOXICILLIN 500 MG ORAL CAPSULE 2 po BID x 10 days AMOXICILLIN 33667329428 No Longer Active Hector Love MD Active LORTAB 5-500 MG ORAL TABLET 1/2 to 1 tablet by mouth every 4 hours as needed for pain HYDROCODONE-ACETAMINOPHEN 79051255938 No Longer Active Hector Love MD Active FLUTICASONE PROPIONATE 50 MCG/ACT NASAL SUSPENSION INSTILL 2 SPRAYS IN EACH NOSTRIL Q D FLUTICASONE PROPIONATE 84375497946 No Longer Active Hector Love MD Active PROGRAF 1 MG ORAL CAPSULE 1 po bid TACROLIMUS 73604960926 No Longer Active Hector Love MD Active AMOXICILLIN 875 MG ORAL TABLET 1 tab by mouth twice daily AMOXICILLIN 77323684520 No Longer Active Hector Love MD Active AMOXICILLIN 500 MG ORAL CAPSULE 2 po BID x 10 days AMOXICILLIN 57218260378 No Longer Active Hector Love MD Active AUGMENTIN 875-125 MG ORAL TABLET 1 tab by mouth twice daily with food AMOXICILLIN-POT CLAVULANATE 43809399122 No Longer Active Hector Love MD Active AZITHROMYCIN 250 MG ORAL TABLET 2 po qd x 1 day, then 1 po qd x 4 days 06/19 AZITHROMYCIN 10058423527 No Longer Active Hector Love MD Active CETIRIZINE HCL 10 MG ORAL TABLET 1 PO Q D CETIRIZINE HCL 53420999159 No Longer Active Waleska Coleman Active PROGRAF 1 MG ORAL CAPSULE 1 po bid PROGRAF 1 MG ORAL CAPSULE 773736 TACROLIMUS Inactive FLUTICASONE PROPIONATE 50 MCG/ACT NASAL SUSPENSION INSTILL 2 SPRAYS IN EACH NOSTRIL Q D FLUTICASONE PROPIONATE 50 MCG/ACT NASAL SUSPENSION 5012927 FLUTICASONE PROPIONATE Inactive LORTAB 5-500 MG ORAL TABLET 1/2 to 1 tablet by mouth every 4 hours as needed for pain LORTAB 5-500 MG ORAL TABLET HYDROCODONE- ACETAMINOPHEN Inactive RAPAMUNE 1 MG ORAL TABLET 3 tabs in the am RAPAMUNE 1 MG ORAL TABLET 523797 SIROLIMUS Inactive PROGRAF 0.5 MG ORAL CAPSULE Take one by mouth daily with 1 mg PROGRAF 0.5 MG ORAL CAPSULE 265047 TACROLIMUS Inactive FEXOFENADINE HCL 180 MG ORAL TABLET 1 Daily FEXOFENADINE HCL 180 MG ORAL TABLET 855427 FEXOFENADINE HCL Inactive LOTRISONE 1-0.05 % EXTERNAL CREAM Apply twice a day to affected area LOTRISONE 1-0.05 % EXTERNAL CREAM 935708 CLOTRIMAZOLE- BETAMETHASONE Inactive KETOCONAZOLE 2 % EXTERNAL CREAM apply twice a day to rash KETOCONAZOLE 2 % EXTERNAL CREAM 833058 KETOCONAZOLE Inactive AUGMENTIN 875-125 MG ORAL TABLET 1 tab by mouth twice daily with food AUGMENTIN 875-125 MG ORAL TABLET 052943 AMOXICILLIN-POT CLAVULANATE Inactive ZOFRAN 4 MG ORAL TABLET 1 po q6hr PRN Nausea ZOFRAN 4 MG ORAL TABLET 516262 ONDANSETRON HCL Inactive AMOXICILLIN 500 MG ORAL TABLET 2 tabs twice a day for 10 days AMOXICILLIN 500 MG ORAL TABLET 152509 AMOXICILLIN Inactive FLONASE ALLERGY RELIEF 50 MCG/ACT NASAL SUSPENSION 2 sprays each nostril daily PRN allergies FLONASE ALLERGY RELIEF 50 MCG/ACT NASAL SUSPENSION 4852791 FLUTICASONE PROPIONATE Inactive HYDROCODONE-ACETAMINOPHEN 5-325 MG ORAL TABLET 1/2 to 1 po q 4 hours prn pain HYDROCODONE-ACETAMINOPHEN 5-325 MG ORAL TABLET 959559 HYDROCODONE-ACETAMINOPHEN Inactive PREDNISONE 20 MG ORAL TABLET 1 tablet daily x 2 days PREDNISONE 20 MG ORAL TABLET 100793 PREDNISONE Inactive VITAMIN C 500 MG ORAL TABLET CHEWABLE VITAMIN C 500 MG ORAL TABLET CHEWABLE ASCORBIC ACID Inactive AMOXICILLIN 500 MG ORAL CAPSULE 2 po BID x 10 days AMOXICILLIN 500 MG ORAL CAPSULE 849741 AMOXICILLIN Inactive AMOXICILLIN 875 MG ORAL TABLET 1 tab by mouth twice daily AMOXICILLIN 875 MG ORAL TABLET 816991 AMOXICILLIN Inactive AMOXICILLIN 500 MG ORAL CAPSULE 2 po BID x 10 days AMOXICILLIN 500 MG ORAL CAPSULE 703937 AMOXICILLIN Inactive AMOXICILLIN 500 MG ORAL CAPSULE 2 po BID x 10 days AMOXICILLIN 500 MG ORAL CAPSULE 906691 AMOXICILLIN Inactive AUGMENTIN 875-125 MG ORAL TABLET 1 tab by mouth twice daily with food AUGMENTIN 875-125 MG ORAL TABLET 340431 AMOXICILLIN-POT CLAVULANATE Inactive LEVAQUIN 500 MG ORAL TABLET 1 pill by mouth daily LEVAQUIN 500 MG ORAL TABLET 901168 LEVOFLOXACIN Inactive AMOXICILLIN 500 MG ORAL CAPSULE 2 po BID x 10 days AMOXICILLIN 500 MG ORAL CAPSULE 828349 AMOXICILLIN Inactive AMOXICILLIN 500 MG ORAL CAPSULE 1 cap by mouth three times a day AMOXICILLIN 500 MG ORAL CAPSULE 132813 AMOXICILLIN Inactive AUGMENTIN 875-125 MG ORAL TABLET 1 po BID x 10 days AUGMENTIN 875-125 MG ORAL TABLET 500092 AMOXICILLIN-POT CLAVULANATE Inactive PREDNISONE 20 MG ORAL TABLET 2 po qd x 4 days PREDNISONE 20 MG ORAL TABLET 058335 PREDNISONE Inactive AMOXICILLIN 500 MG ORAL TABLET Take two tablets by mouth every 12 hours for 10 days AMOXICILLIN 500 MG ORAL TABLET 387452 AMOXICILLIN Inactive Advance Directives Directive Description Start Date PERMISSION TO SHARE Immunizations Vaccine Administration Date Value Standard Description Seasonal influenza vaccine, injectable, preservative free, for > 3 years old ( Afluria, FluLaval, Fluzone, Fluvirin, Fluarix, Agriflu(>=18 yo)) Fluzone preservative free (>=3 yrs.) [QCW760] Influenza, seasonal, injectable, preservative free Adacel (Tetanus, reduced Diphtheria, and acellular Pertussis Immunization) Adacel [JAF962] tetanus toxoid, reduced diphtheria toxoid, and acellular [...] Panel - Chemistry sodium, serum 137 mmol/L 744-178 7762/08/14 carbon dioxide, venous blood 29.7 mmol/L 21.0-32.0 potassium, serum 4.3 mmol/L 3.5-5.2 chloride, serum 99 mmol/L 98-107 blood glucose 123 mg/dL 65-110 urea nitrogen, blood 12 mg/dL 7-18 creatinine, serum 0.84 mg/dL 0.60-1.30 alanine aminotransferase (SGPT), serum 48 U/L 12-78 aspartate aminotransferase (SGOT), serum 26 U/L 15-37 calcium, serum 9.4 mg/dL 8.5-10.1 bilirubin, serum, total 1.60 mg/dL 0.00-1.00 cholesterol, serum 141 mg/dL 962-902 7874/08/14 triglyceride, serum, fasting 54 mg/dL 30-200 HDL [...] ... - Chemistry sodium, serum 137 mmol/L 170-044 3752/04/23 carbon dioxide, venous blood 28.4 mmol/L 21.0-32.0 [...] semiquantitative 6.0 5.0-8.5 Lab Report: VITAMIN D, 25-HYDROXY/39897 - Chemistry vitamin D 25-hydroxy, serum 18 ng/mL 30-100 Encounters Code Encounter Date Provider Facility CPT-25582 Level 3 Est. [facility] 10[facility]49[facility] Est. Patient 11:35:07 CDT Manish Castrejon [facility] CPT-91061 Level 3 Est. Patient 17:22:36 CDT Tracy Resendiz Sofilauracarlos [facility] CPT-72633 Level 3 Est. Patient 16:06:03 CDT Elijahzeyad Moodydebora [facility] CPT-51494 Level 3 Est. Patient 09:57:24 CDT Elijahzeyad Moodydebora [facility] CPT-18781 Level 3 Est. Patient 16:31:04 CDT Иван Mooney MD [facility] CPT-67167 Level 4 Est. Patient 12:02:18 CDT Hector Love MD [facility] CPT-22998 Level 3 Est. Patient 16:14:45 CDT Hector Love MD [facility] CPT-06963 Level 3 Est. Patient 16:53:35 CDT Иван Mooney MD [facility] CPT-88314 Level 3 Est. Patient 15:57:13 CDT Martha Nikia [facility] CPT-69630 Level 3 Est. Patient 14:30:47 [employer]NAGER Hector Love MD [facility] CPT-73525 Level 3 Est. Patient 14:50:45 CDT Hector Love MD [facility] CPT-44872 Level 3 Est. Patient 21:17:30 CDT Jen Crystal MD PhD [facility] CPT-24719 Level 3 Est. Patient 09:32:55 CDT Hector Love MD [facility] CPT-52489 Level 3 Est. Patient 15:11:08 [employer] C[employer] CENTER MANAGER Иван Mooney MD [facility] CPT-53836 Level 3 Est. Patient 16:38:53 [employer] CENTER MANAGER Hector Love MD [facility] CPT-20301 Level 3 Est. Patient 15:46:05 CDT Hector Love MD [facility] CPT-66193 Level 3 Est. Patient 13:59:39 CDT Hector Love MD [facility] CPT-49183 Level 3 Est. Patient 14:44:46 [employer] C[employer] CENTER MANAGER Hector Love MD [facility] CPT-24487 Level 3 Est. Patient 17:12:27 CDT Hector Love MD [facility] CPT-64041 Level 3 Est. Patient 15:30:32 CDT Hector Love MD [facility] CPT-10604 Level 3 Est. Patient 14:24:52 CDT Иван Mooney MD [facility] CPT-03751 Level 3 Est. Patient 14:08:38 [employer] CENTER MANAGER Hector Love MD [facility] Procedures Code Procedure Name Date Entry Date Standard Description CPT-84531 Chest, 2 views 11:04:30 CDT CPT-56502 Venipuncture Draw Fee 16:18:26 CDT CPT-70213 TB Skin Test 09:57:25 CDT CPT-000 Give Appropriate Flu Vaccine 16:22:23 [employer] C[employer] CENTER MANAGER CPT-64265 Free T4 - LAB USE ONLY 11:38:58 CDT CPT-75872 TSH - LAB USE ONLY 11:38:58 CDT CPT-41912 Venipuncture Draw Fee 11:38:58 CDT CPT-15448 Fluzone Quadrivalent Intramuscular Suspension 0.5 ML 16: 12:26 [employer] C[employer] CENTER MANAGER CPT-27108 Immunization Single Admin 16:12:26 AUT[employer] CARE CENTER MANAGER CPT-J0561 Bicillin LA 1,200,000 u (PCN G Benzathine) 16:40:23 CDT CPT-72689 Abx/Therapy Injection 16:40:22 CDT CPT-J0561 Bicillin LA 1,200,000 u (PCN G Benzathine) 16:15:35 CDT CPT-63938 Immunization Single Admin 16:11:28 [employer] C[employer] CENTER MANAGER CPT-17649 Fluzone Quadrivalent Intramuscular Suspension 0.5 ML 16: 11:28 [employer] CARE CENTER MANAGER CPT-89785 Administration single or combination vaccine inc oral 13 :57:23 CDT CPT-99740 Menactra Intramuscular Injectable 13:57:23 CDT CPT-49253 First Vx Component - Ix admin via ID IM or jet inj without physician counseling 16:42:17 [employer] CARE CENTER MANAGER CPT-83980 Fluzone preservative free (>=3 yrs.) 16:42:17 AUTO CARE CENTER MANAGER 06/03 CPT-47883 Venipuncture Draw Fee 16:29:01 CDT CPT-63711 Chest 2V Frontal and Lat 16:23:56 CDT CPT-94278 Administration single or combination vaccine inc oral 13 :39:17 AUTO CARE CENTER MANAGER CPT-65852 Tdap 13:39:17 AUTO CARE CENTER MANAGER
--- OUTSIDE RECORDS SUMMARY | 2017-11-06 01:27 | XMS REPORT | Continuity of Care Document ---
Author Author [facility] Organization [facility] Address [address] [place] [address] Phone Unavailable Care Team Providers Care Sales And Marketing Specialist Name Role Phone TRINI FRAIRE PCP tel: Insurance Providers Payer Name Policy Number Subscriber Name Relationship Power Contenter St [id number] Nitin Smith 17 Self / Same As Patient Advance Directives Directive Response Recorded Date/Time Living Will No 03/30/12 10:55am Advance Directives No 01/26/13 3:23pm Durable POA for HC No 06/11/16 1:29pm Power of Vocational Training Teacher No 06/11/16 1:29pm Organ Donor No 06/11/16 1:29pm Living Will No 06/11/16 1:29pm Chief Complaint and Reason for Visit Chief Complaint Sore Throat Reason for Visit Upper respiratory infection Problems Active Problems Medical Problem Onset Date Status Upper respiratory infection Unknown Acute Medications Current [...] History Social History Problem Response Recorded Date/Time Alcohol Use none 06/11/2016 1:39pm Drug Use none 06/11/2016 1:39pm Smoking Status Never smoker 06/11/2016 1:31pm Smoked in the last 12 months? No 06/11/2016 1:31pm Do you dip or chew tobacco? No 06/11/2016 1:31pm Approx how many cigs per day? 0 06/11/2016 1:31pm Level of Dependence Low 06/11/2016 1:31pm Former smoker, last day smoked? NEVER 06/11/2016 1:31pm Query Response Start Date Stop Date Smoking Status Never smoker Hospital Discharge Instructions No hospital discharge instructions. Plan of Care Discharge Date 06/11/16 2:35pm Disposition 01 D/C HOME Condition at Discharge Stable and Improved Instructions/Education Provided Upper Respiratory Infection (ED) Forms Provided RETURN TO WORK/SCHOOL Prescriptions See Medication Section Referrals TRINI FRAIRE W - Additional Instructions/Education Get plenty of rest Increase oral fluid intake Take mucinex DM during the day as directed on box to help with cough You may use the cough medication prescribed at night to help with cough F/U with your primary care provider, call to make an appointment Functional Status Query Response Date Recorded Activities of Daily Living Performs w/o Assistance June 11, 2016 1:32pm Cognitive Function Intact June 11, 2016 1:32pm Allergies, Adverse Reactions, Alerts Allergen Type Severity Reaction Status Last Updated Promethazine Allergy Unknown Active 08/13/12 Ceftriaxone Allergy Unknown Active 08/13/12 ERYTHROMYCIN Allergy Unknown Active 04/28/12 TAPE Allergy Intermediate RASH Active 06/11/16 Immunizations No immunization records. Vital Signs Acute Vital Signs Vital Response Date/Time Temperature (Fahrenheit) 98.5 degrees F (97.6 - 99.5) 06/11/2016 2:25pm Temperature (Calculated Celsius) 36.82246 degrees C (36.4 - 37.5) 06/11/2016 2:25pm Temperature Source Oral 06/11/2016 2:25pm Pulse Right Pulse Rate (adult) 90 beats per minute (60 - 90) 06/11/2016 2:25pm Oxygen Saturation Respiratory Rate 16 breaths per minute (12 - 24) 06/11/2016 2:25pm O2 Sat by Pulse Oximetry 97 % (90 - 100) 06/11/2016 2:25pm Blood Pressure 134/71 mm Hg 06/11/2016 2:25pm Blood Pressure Mean 92 mm Hg 06/11/2016 2:25pm Height 5 ft 11 in Weight 240 [...] Basophils (%) (Auto) 0.4 % 0.0-0.5 08/27/2015 10:08/27/2015 10: 23am Neutrophils # (Auto) 3.67 x10^3/uL 2.00-7.50 08/27/2015 10:2015 10:23am Lymphocytes # (Auto) 2.95 x10^3/uL 1.50-4.00 08/27/2015 10:122015 10:23am Monocytes # (Auto) 0.92 x10^3/uL H 0.20-0.80 08/27/2015 10:2015 10:23am Eosinophils # (Auto) 0.28 x10^3/uL 0.04-0.40 08/27/2015 10:2015 10:23am Basophils # (Auto) 0.03 x10^3/uL 0.02-0.10 08/27/2015 10:2015 10:23am Sodium Level 136 mmol/L L 137-145 08/27/2015 10:08/27/2015 10:52am Potassium Level 3.8 mmol/L 3.5-5.1 08/27/2015 10:08/27/2015 10: 52am Carbon Dioxide Level 22.2 mmol/L 22-30 08/27/2015 10:08/27/2015 10 :52am Anion Gap 12.6 mEq/L 8-16 08/27/2015 10:08/27/2015 10:52am Blood Urea Nitrogen 11 mg/dL 9-08/27/2015 10:08/27/2015 10: 52am Creatinine 0.73 mg/dl 0.66-1.25 08/27/2015 10:08/27/2015 10:52am Est Glomerular Filtrat Rate mL/min > 90.00 08/27/2015 10:08/26 10:52am GFR NORMALS: Stage I: GFR >90 Stage II GFR 60-89 Stage III GFR 30-60 Stage IV: GFR 15-29 Stage V: GFR <15 BUN/Creatinine Ratio 15.06 08/27/2015 10:1208/27/2015 10:52am Glucose Level 118 mg/dL H 74-106 08/27/2015 10:08/27/2015 10:52am Calcium Level 9.0 mg/dL 8.4-10.2 08/27/2015 10:08/27/2015 10:52am Total Bilirubin 1.3 mg/dL 0.2-1.3 08/27/2015 10:08/27/2015 10: 52am Direct Bilirubin 0.2 mg/dL 0-0.3 08/27/2015 10:08/27/2015 10:52am Aspartate Amino Transf (AST/SGOT) 30 U/L 17-59 08/27/2015 10:08/26 10:52am Alanine Aminotransferase (ALT/SGPT) 35 U/L 21-72 [...] 5.0-20.0 mcg/L. THIS TEST WAS PERFORMED AT: [facility] [id number] [employer] [facility]MER[facility] [place] [address] CHAD BARRIOS DO,MPH Gamma Glutamyl Transpeptidase 29 U/L 3-70 08/27/2015 10:2015 5:28am THIS TEST WAS PERFORMED AT: [facility] [address] [place] [address] CHAD BARRIOS DO,MPH Pending Laboratory Results Test Name Collection Date/Time Procedures No known history of procedures. Encounters Encounter Location Arrival/Admit Date Discharge/Depart Date Attending Provider Departed Emergency Room [facility] 06/11/16 1:25pm 06/11/16 2: 35pm PERI FLYNN [facility] 11/12/15 10:06am [facility] 08/27/15 9:45am RAMON JOHNS Recent Diagnosis
--- OUTSIDE RECORDS SUMMARY | 2017-11-06 01:27 | XMS REPORT | Clinical Summary ---
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 Body Mass Index 34.0-34.9, adult HYPERTENSION ICD-401.9 [...] Gastroenteritis, viral, acute ICD-008.8 Inactive Martha Montejo FEEDER/FOLDER Bronchitis ICD-490 Inactive Hector Love MD 2014 Pharyngitis ICD-462 Inactive Hector Love MD Ingrown toenail ICD-703.0 Inactive Hector Love MD Ingrown toenail, right ICD-703.0 Inactive Hector Love MD Alopecia ICD-704.00 Inactive Hector Love MD Upper respiratory infection, viral ICD-465.9 Inactive Hectro Love MD Pharyngitis ICD-462 Inactive Hector Love MD Pre employment physical examination ICD-V70.0 Inactive Hector Love MD Exposure to mononucleosis ICD-V01.79 Inactive Hector Love MD Stress at work ICD-V62.1 Inactive Hector Love MD Medication List Medication Instructions Start Date Stop Date Generic Name NDC Status Provider Patient Instruction PROGRAF 1 MG ORAL CAPSULE 2 po BID TACROLIMUS 01172705581 Active Hector Love MD Active CETIRIZINE HCL 10 MG ORAL TABLET 1 po qd PRN Allergies CETIRIZINE HCL 52497440792 Active Hector Love MD Active LISINOPRIL 5 MG ORAL TABLET 1.5 po qd LISINOPRIL 70163333852 Vivek Love MD Active FLUTICASONE PROPIONATE 50 MCG/ACT NASAL SUSPENSION 2 sprays/nostril qd PRN Congestion/Allergies FLUTICASONE PROPIONATE 94785887715 Active Hector Love MD Active VITAMIN C 500 MG ORAL TABLET CHEWABLE ASCORBIC ACID 07107571014 No Longer Active Hector Love MD Active PREDNISONE 20 MG ORAL TABLET 1 tablet daily x 2 days PREDNISONE 67673137607 No Longer Active Manish Castrejon APRN Active AMOXICILLIN 500 MG ORAL TABLET Take two tablets by mouth every 12 hours for 10 days AMOXICILLIN 72116534747 No Longer Active Иван Mooney MD Active PREDNISONE 20 MG ORAL TABLET 2 po qd x 4 days PREDNISONE 13204866610 No Longer Active Hector Love MD Active HYDROCODONE-ACETAMINOPHEN 5-325 MG ORAL TABLET 1/2 to 1 po q 4 hours prn pain HYDROCODONE-ACETAMINOPHEN 72507906944 No Longer Active Hector Love MD Active AUGMENTIN 875-125 MG ORAL TABLET 1 po BID x 10 days AMOXICILLIN-POT CLAVULANATE 05234910485 No Longer Active Hector Love MD Active FLONASE ALLERGY RELIEF 50 MCG/ACT NASAL SUSPENSION 2 sprays each nostril daily PRN allergies FLUTICASONE PROPIONATE 59014234062 No Longer Active Hector Love MD Active AMOXICILLIN 500 MG ORAL CAPSULE 1 cap by mouth three times a day AMOXICILLIN 82043031910 No Longer Active Manish Castrejon APRN Active KEFLEX 500 MG ORAL CAPSULE 1 tab po tid CEPHALEXIN 96378077603 No Longer Active Jillina Fradebora GARCIA Active AMOXICILLIN 500 MG ORAL TABLET 2 tabs twice a day for 10 days AMOXICILLIN 00180069281 No Longer Active Jilldenise Fradebora GARCIA Active ZOFRAN 4 MG ORAL TABLET 1 po q6hr PRN Nausea ONDANSETRON HCL 46097612661 No Longer Active Ramona Diggs LPN Active AMOXICILLIN 500 MG ORAL CAPSULE 2 po BID x 10 days AMOXICILLIN 45494369271 No Longer Active Martha Montejo APRN Active AUGMENTIN 875-125 MG ORAL TABLET 1 tab by mouth twice daily with food AMOXICILLIN-POT CLAVULANATE 69385395438 No Longer Active Hector Love MD Active LEVAQUIN 500 MG ORAL TABLET 1 pill by mouth daily LEVOFLOXACIN 08101789313 No Longer Active Jen Crystal MD PhD Active KETOCONAZOLE 2 % EXTERNAL CREAM apply twice a day to rash KETOCONAZOLE 04763294594 No Longer Active Hector Love MD Active AUGMENTIN 875-125 MG ORAL TABLET 1 tab by mouth twice daily with food AMOXICILLIN-POT CLAVULANATE 39836022808 No Longer Active Иван Mooney MD Active LOTRISONE 1-0.05 % EXTERNAL CREAM Apply twice a day to affected area CLOTRIMAZOLE-BETAMETHASONE 43124081984 No Longer Active Иван Mooney MD Active FEXOFENADINE HCL 180 MG ORAL TABLET 1 Daily FEXOFENADINE HCL 39760489622 No Longer Active Hector Love MD Active PROGRAF 0.5 MG ORAL CAPSULE Take one by mouth daily with 1 mg TACROLIMUS 98918017215 No Longer Active Hector Love MD Active AMOXICILLIN 500 MG ORAL CAPSULE 2 po BID x 10 days AMOXICILLIN 21825542368 No Longer Active Hector Love MD Active RAPAMUNE 1 MG ORAL TABLET 3 tabs in the am SIROLIMUS 42514738253 No Longer Active Hector Love MD Active AMOXICILLIN 500 MG ORAL CAPSULE 2 po BID x 10 days AMOXICILLIN 20459158354 No Longer Active Hector Love MD Active LORTAB 5-500 MG ORAL TABLET 1/2 to 1 tablet by mouth every 4 hours as needed for pain HYDROCODONE-ACETAMINOPHEN 79441454678 No Longer Active Hector Love MD Active FLUTICASONE PROPIONATE 50 MCG/ACT NASAL SUSPENSION INSTILL 2 SPRAYS IN EACH NOSTRIL Q D FLUTICASONE PROPIONATE 79605949211 No Longer Active Hector Love MD Active PROGRAF 1 MG ORAL CAPSULE 1 po bid TACROLIMUS 29338356467 No Longer Active Hector Love MD Active AMOXICILLIN 875 MG ORAL TABLET 1 tab by mouth twice daily AMOXICILLIN 75620878886 No Longer Active Hector Love MD Active AMOXICILLIN 500 MG ORAL CAPSULE 2 po BID x 10 days AMOXICILLIN 15959970773 No Longer Active Hector Love MD Active AUGMENTIN 875-125 MG ORAL TABLET 1 tab by mouth twice daily with food AMOXICILLIN-POT CLAVULANATE 15842971238 No Longer Active Hector Love MD Active AZITHROMYCIN 250 MG ORAL TABLET 2 po qd x 1 day, then 1 po qd x 4 days 06/19 AZITHROMYCIN 03240732844 No Longer Active Hector Love MD Active CETIRIZINE HCL 10 MG ORAL TABLET 1 PO Q D CETIRIZINE HCL 59676579278 No Longer Active [place] Active PROGRAF 1 MG ORAL CAPSULE 1 po bid PROGRAF 1 MG ORAL CAPSULE 565600 TACROLIMUS Inactive FLUTICASONE PROPIONATE 50 MCG/ACT NASAL SUSPENSION INSTILL 2 SPRAYS IN EACH NOSTRIL Q D FLUTICASONE PROPIONATE 50 MCG/ACT NASAL SUSPENSION 2135425 FLUTICASONE PROPIONATE Inactive LORTAB 5-500 MG ORAL TABLET 1/2 to 1 tablet by mouth every 4 hours as needed for pain LORTAB 5-500 MG ORAL TABLET HYDROCODONE- ACETAMINOPHEN Inactive RAPAMUNE 1 MG ORAL TABLET 3 tabs in the am RAPAMUNE 1 MG ORAL TABLET 157865 SIROLIMUS Inactive PROGRAF 0.5 MG ORAL CAPSULE Take one by mouth daily with 1 mg PROGRAF 0.5 MG ORAL CAPSULE 296874 TACROLIMUS Inactive FEXOFENADINE HCL 180 MG ORAL TABLET 1 Daily FEXOFENADINE HCL 180 MG ORAL TABLET 963576 FEXOFENADINE HCL Inactive LOTRISONE 1-0.05 % EXTERNAL CREAM Apply twice a day to affected area LOTRISONE 1-0.05 % EXTERNAL CREAM 687533 CLOTRIMAZOLE- BETAMETHASONE Inactive KETOCONAZOLE 2 % EXTERNAL CREAM apply twice a day to rash KETOCONAZOLE 2 % EXTERNAL CREAM 435115 KETOCONAZOLE Inactive AUGMENTIN 875-125 MG ORAL TABLET 1 tab by mouth twice daily with food AUGMENTIN 875-125 MG ORAL TABLET 910338 AMOXICILLIN-POT CLAVULANATE Inactive ZOFRAN 4 MG ORAL TABLET 1 po q6hr PRN Nausea ZOFRAN 4 MG ORAL TABLET 772215 ONDANSETRON HCL Inactive AMOXICILLIN 500 MG ORAL TABLET 2 tabs twice a day for 10 days AMOXICILLIN 500 MG ORAL TABLET 169202 AMOXICILLIN Inactive FLONASE ALLERGY RELIEF 50 MCG/ACT NASAL SUSPENSION 2 sprays each nostril daily PRN allergies FLONASE ALLERGY RELIEF 50 MCG/ACT NASAL SUSPENSION 9677772 FLUTICASONE PROPIONATE Inactive HYDROCODONE-ACETAMINOPHEN 5-325 MG ORAL TABLET 1/2 to 1 po q 4 hours prn pain HYDROCODONE-ACETAMINOPHEN 5-325 MG ORAL TABLET 337464 HYDROCODONE-ACETAMINOPHEN Inactive PREDNISONE 20 MG ORAL TABLET 1 tablet daily x 2 days PREDNISONE 20 MG ORAL TABLET 960788 PREDNISONE Inactive VITAMIN C 500 MG ORAL TABLET CHEWABLE VITAMIN C 500 MG ORAL TABLET CHEWABLE ASCORBIC ACID Inactive AMOXICILLIN 500 MG ORAL CAPSULE 2 po BID x 10 days AMOXICILLIN 500 MG ORAL CAPSULE 846047 AMOXICILLIN Inactive AMOXICILLIN 875 MG ORAL TABLET 1 tab by mouth twice daily AMOXICILLIN 875 MG ORAL TABLET 395789 AMOXICILLIN Inactive AMOXICILLIN 500 MG ORAL CAPSULE 2 po BID x 10 days AMOXICILLIN 500 MG ORAL CAPSULE 803084 AMOXICILLIN Inactive AMOXICILLIN 500 MG ORAL CAPSULE 2 po BID x 10 days AMOXICILLIN 500 MG ORAL CAPSULE 442117 AMOXICILLIN Inactive AUGMENTIN 875-125 MG ORAL TABLET 1 tab by mouth twice daily with food AUGMENTIN 875-125 MG ORAL TABLET 423916 AMOXICILLIN-POT CLAVULANATE Inactive LEVAQUIN 500 MG ORAL TABLET 1 pill by mouth daily LEVAQUIN 500 MG ORAL TABLET 525920 LEVOFLOXACIN Inactive AMOXICILLIN 500 MG ORAL CAPSULE 2 po BID x 10 days AMOXICILLIN 500 MG ORAL CAPSULE 869135 AMOXICILLIN Inactive AMOXICILLIN 500 MG ORAL CAPSULE 1 cap by mouth three times a day AMOXICILLIN 500 MG ORAL CAPSULE 467510 AMOXICILLIN Inactive AUGMENTIN 875-125 MG ORAL TABLET 1 po BID x 10 days AUGMENTIN 875-125 MG ORAL TABLET 504123 AMOXICILLIN-POT CLAVULANATE Inactive PREDNISONE 20 MG ORAL TABLET 2 po qd x 4 days PREDNISONE 20 MG ORAL TABLET 094391 PREDNISONE Inactive AMOXICILLIN 500 MG ORAL TABLET Take two tablets by mouth every 12 hours for 10 days AMOXICILLIN 500 MG ORAL TABLET 336045 AMOXICILLIN Inactive Advance Directives Directive Description Start Date PERMISSION TO SHARE Immunizations Vaccine Administration Date Value Standard Description Seasonal influenza vaccine, injectable, preservative free, for > 3 years old ( Afluria, FluLaval, Fluzone, Fluvirin, Fluarix, Agriflu(>=18 yo)) Fluzone preservative free (>=3 yrs.) [[id number]] Influenza, seasonal, injectable, preservative free Adacel (Tetanus, reduced Diphtheria, and acellular Pertussis Immunization) Adacel [[id number]] tetanus toxoid, reduced diphtheria toxoid, and acellular [...] Panel - Chemistry sodium, serum 137 mmol/L 930-345 8474/08/14 carbon dioxide, venous blood 29.7 mmol/L 21.0-32.0 potassium, serum 4.3 mmol/L 3.5-5.2 chloride, serum 99 mmol/L 98-107 blood glucose 123 mg/dL 65-110 urea nitrogen, blood 12 mg/dL 7-18 creatinine, serum 0.84 mg/dL 0.60-1.30 alanine aminotransferase (SGPT), serum 48 U/L 12-78 aspartate aminotransferase (SGOT), serum 26 U/L 15-37 calcium, serum 9.4 mg/dL 8.5-10.1 bilirubin, serum, total 1.60 mg/dL 0.00-1.00 cholesterol, serum 141 mg/dL 450-609 2727/08/14 triglyceride, serum, fasting 54 mg/dL 30-200 HDL [...] ... - Chemistry sodium, serum 137 mmol/L 019-145 9178/04/23 carbon dioxide, venous blood 28.4 mmol/L 21.0-32.0 [...] semiquantitative 6.0 5.0-8.5 Lab Report: VITAMIN D, 25-HYDROXY/[id number] - Chemistry vitamin D 25-hydroxy, serum 18 ng/mL 30-100 Encounters Code Encounter Date Provider Facility CPT-24593 Level 3 Est. Patient 10:49:01 [facility] Level 3 Est. Patient 11:35:07 CDT Manish Castrejon [facility] CPT-96213 Level 3 Est. Patient 17:22:36 CDT Tracy Resendiz Sofilauracarlos [facility] CPT-36640 Level 3 Est. Patient 16:06:03 CDT Elijahzeyad Moodydebora [facility] CPT-80815 Level 3 Est. Patient 09:57:24 CDT Elijahzeyad Moodydebora [facility] CPT-68761 Level 3 Est. Patient 16:31:04 CDT Иван Mooney MD [facility] CPT-02897 Level 4 Est. Patient 12:02:18 CDT Hector Love MD [facility] CPT-83371 Level 3 Est. Patient 16:14:45 CDT Hector Love MD [facility] CPT-31919 Level 3 Est. Patient 16:53:35 CDT Иван Mooney MD [facility] CPT-75746 Level 3 Est. Patient 15:57:13 CDT Martha Nikia [facility] CPT-64243 Level 3 Est. Patient 14:30:47 [employer] Hector Love MD [facility] CPT-02162 Level 3 Est. Patient 14:50:45 CDT Hector Love MD [facility] CPT-72952 Level 3 Est. Patient 21:17:30 CDT Jen Crystal MD PhD [facility] CPT-04700 Level 3 Est. Patient 09:32:55 CDT Hector Love MD [facility] CPT-80890 Level 3 Est. Patient 15:11:08 [employer] Иван Mooney MD [facility] CPT-71047 Level 3 Est. Patient 16:38:53 [employer] Hector Love MD [facility] CPT-35020 Level 3 Est. Patient 15:46:05 CDT Hector Love MD [facility] CPT-01521 Level 3 Est. Patient 13:59:39 CDT Hector Love MD [facility] CPT-93817 Level 3 Est. Patient 14:44:46 [employer] Hector Love MD [facility] CPT-73698 Level 3 Est. Patient 17:12:27 CDT Hector Love MD [facility] CPT-22534 Level 3 Est. Patient 15:30:32 CDT Hector Love MD [facility] CPT-45663 Level 3 Est. Patient 14:24:52 CDT Иван Mooney MD [facility] CPT-57312 Level 3 Est. Patient 14:08:38 [employer] Hector Love MD [facility] Procedures Code Procedure Name Date Entry Date Standard Description CPT-88374 Chest, 2 views 11:04:30 CDT CPT-03623 Venipuncture Draw Fee 16:18:26 CDT CPT-04465 TB Skin Test 09:57:25 CDT CPT-000 Give Appropriate Flu Vaccine 16:22:23 [employer] CPT-88847 Free T4 - LAB USE ONLY 11:38:58 CDT CPT-31348 TSH - LAB USE ONLY 11:38:58 CDT CPT-21180 Venipuncture Draw Fee 11:38:58 CDT CPT-81208 Fluzone Quadrivalent Intramuscular Suspension 0.5 ML 16: 12:26 [employer] CPT-53423 Immunization Single Admin 16:12:26 [employer] CPT-J0561 Bicillin LA 1,200,000 u (PCN G Benzathine) 16:40:23 CDT CPT-38127 Abx/Therapy Injection 16:40:22 CDT CPT-J0561 Bicillin LA 1,200,000 u (PCN G Benzathine) 16:15:35 CDT CPT-24311 Immunization Single Admin 16:11:28 [employer] CPT-50227 Fluzone Quadrivalent Intramuscular Suspension 0.5 ML 16: 11:28 [employer] CPT-30753 Administration single or combination vaccine inc oral 13 :57:23 CDT CPT-92114 Menactra Intramuscular Injectable 13:57:23 CDT CPT-04212 First Vx Component - Ix admin via ID IM or jet inj without physician counseling 16:42:17 [employer] CPT-18648 Fluzone preservative free (>=3 yrs.) 16:42:17 MERCHANT SEAMAN 06/03 CPT-13418 Venipuncture Draw Fee 16:29:01 CDT CPT-39522 Chest 2V Frontal and Lat 16:23:56 CDT CPT-13389 Administration single or combination vaccine inc oral 13 :39:17 [employer]CHANT SEAMAN CPT-53497 Tdap 13:39:17 [employer]AMAN
--- OUTSIDE RECORDS SUMMARY | 2017-11-06 01:28 | XMS REPORT | Clinical Summary ---
Author Author Admin, LAMBERT Organization [facility] Address Unknown Phone Unavailable Allergies, [...] Memory loss Sinusitis, frontal, acute 461.1 Resolved Hetcor Love MD Acute frontal sinusitis NEED FOR [...] viral, acute ICD-008.8 Inactive Martha Montejo APRN COUGH ICD-786.2 Inactive Hector Love MD Medication List Medication Instructions Start Date Stop Date Generic Name NDC Status Provider Patient Instruction AMOXICILLIN 500 MG CAPS 2 po BID x 10 days AMOXICILLIN 63244015888 No Longer Active Martha Montejo APRN Active ZOFRAN 4 MG TABS 1 po q6hr PRN Nausea ONDANSETRON HCL 81321411514 Active Hector Love MD Active AUGMENTIN 875-125 MG TAB 1 tab by mouth twice daily with food AMOXICILLIN-POT CLAVULANATE 98560419999 No Longer Active Hector Love MD Active FLONASE 50 MCG/ACT SUSP 2 puffs in each nostril daily PRN Allergies FLUTICASONE PROPIONATE 17031017888 Active Hector Love MD Active LEVAQUIN 500 MG TABS 1 pill by mouth daily LEVOFLOXACIN 60223332737 No Longer Active Jen Crystal MD PhD Active LISINOPRIL 5 MG TABS 1.5 tab qd LISINOPRIL 66390739494 Active Jen rCystal MD PhD Active KETOCONAZOLE 2 % CREA apply twice a day to rash KETOCONAZOLE 04229366702 No Longer Active Hector Love MD Active AUGMENTIN 875-125 MG TAB 1 tab by mouth twice daily with food AMOXICILLIN-POT CLAVULANATE 06795041494 No Longer Active Иван Mooney MD Active LOTRISONE 0.05-1 % CREAM Apply twice a day to affected area 07/19 CLOTRIMAZOLE-BETAMETHASONE 13905655996 No Longer Active Иван Mooney MD Active PROGRAF 1 MG CAPS 4 tabs po bid TACROLIMUS 90594796012 Active Hector Love MD Active FEXOFENADINE HCL 180 MG TABS 1 Daily FEXOFENADINE HCL 26344823973 No Longer Active Hector Love MD Active PROGRAF 0.5 MG CAPS Take one by mouth daily with 1 mg TACROLIMUS 87677664584 No Longer Active Hector Love MD Active AMOXICILLIN 500 MG CAPS 2 po BID x 10 days AMOXICILLIN 87144480300 No Longer Active Hector Love MD Active RAPAMUNE 1 MG TABS 3 tabs in the am SIROLIMUS 68888079258 No Longer Active Hector Love MD Active AMOXICILLIN 500 MG CAPS 2 po BID x 10 days AMOXICILLIN 28215772269 No Longer Active Hector Love MD Active LORTAB 5 5-500 MG TABS 1/2 to 1 tablet by mouth every 4 hours as needed for pain HYDROCODONE-ACETAMINOPHEN 52011398820 No Longer Active Hector Love MD Active FLUTICASONE PROPIONATE 50 MCG/ACT SUSP INSTILL 2 SPRAYS IN EACH NOSTRIL Q D FLUTICASONE PROPIONATE 38982373246 No Longer Active Hector Love MD Active PROGRAF 1 MG CAPS 1 po bid TACROLIMUS 84312377611 No Longer Active Hector Love MD Active AMOXICILLIN 875 MG TABS 1 tab by mouth twice daily AMOXICILLIN 65389727006 No Longer Active Hector Love MD Active AMOXICILLIN 500 MG CAPS 2 po BID x 10 days AMOXICILLIN 78040874177 No Longer Active Hector Love MD Active AUGMENTIN 875-125 MG TAB 1 tab by mouth twice daily with food AMOXICILLIN-POT CLAVULANATE 02155639996 No Longer Active Hector Love MD Active AZITHROMYCIN 250 MG TABS 2 po qd x 1 day, then 1 po qd x 4 days AZITHROMYCIN 21366009711 No Longer Active Hector Love MD Active CETIRIZINE HCL 10 MG TABS 1 PO Q D CETIRIZINE HCL 94205494118 No Longer Active [place] Levy Active PROGRAF 1 MG CAPS 1 po bid PROGRAF 1 MG CAPS 594413 TACROLIMUS Inactive FLUTICASONE PROPIONATE 50 MCG/ACT SUSP INSTILL 2 SPRAYS IN EACH NOSTRIL Q D FLUTICASONE PROPIONATE 50 MCG/ACT SUSP 169872 FLUTICASONE PROPIONATE Inactive LORTAB 5 5-500 MG TABS 1/2 to 1 tablet by mouth every 4 hours as needed for pain LORTAB 5 5-500 MG TABS HYDROCODONE- ACETAMINOPHEN Inactive RAPAMUNE 1 MG TABS 3 tabs in the am RAPAMUNE 1 MG TABS 717272 SIROLIMUS Inactive PROGRAF 0.5 MG CAPS Take one by mouth daily with 1 mg PROGRAF 0.5 MG CAPS 701333 TACROLIMUS Inactive FEXOFENADINE HCL 180 MG TABS 1 Daily FEXOFENADINE HCL 180 MG TABS 055540 FEXOFENADINE HCL Inactive LOTRISONE 0.05-1 % CREAM Apply twice a day to affected area 07/19 LOTRISONE 0.05-1 % CREAM 666076 CLOTRIMAZOLE-BETAMETHASONE Inactive KETOCONAZOLE 2 % CREA apply twice a day to rash KETOCONAZOLE 2 % CREA 925566 KETOCONAZOLE Inactive AUGMENTIN 875-125 MG TAB 1 tab by mouth twice daily with food AUGMENTIN 875-125 MG TAB 679760 AMOXICILLIN-POT CLAVULANATE Inactive AMOXICILLIN 500 MG CAPS 2 po BID x 10 days AMOXICILLIN 500 MG CAPS 785166 AMOXICILLIN Inactive AMOXICILLIN 875 MG TABS 1 tab by mouth twice daily AMOXICILLIN 875 MG TABS 964632 AMOXICILLIN Inactive AMOXICILLIN 500 MG CAPS 2 po BID x 10 days AMOXICILLIN 500 MG CAPS 660616 AMOXICILLIN Inactive AMOXICILLIN 500 MG CAPS 2 po BID x 10 days AMOXICILLIN 500 MG CAPS 850147 AMOXICILLIN Inactive AUGMENTIN 875-125 MG TAB 1 tab by mouth twice daily with food AUGMENTIN 875-125 MG TAB 889827 AMOXICILLIN-POT CLAVULANATE Inactive LEVAQUIN 500 MG TABS 1 pill by mouth daily LEVAQUIN 500 MG TABS 799032 LEVOFLOXACIN Inactive AMOXICILLIN 500 MG CAPS 2 po BID x 10 days AMOXICILLIN 500 MG CAPS 191009 AMOXICILLIN Inactive Advance Directives Directive Description Start Date PERMISSION TO SHARE Immunizations Vaccine Administration Date Value Standard Description Seasonal influenza vaccine, injectable, preservative free, for > 3 years old ( Afluria, FluLaval, Fluzone, Fluvirin, Fluarix, Agriflu(>=18 yo)) Fluzone preservative free (>=3 yrs.) [[id number]] Influenza, seasonal, injectable, preservative free Adacel (Tetanus, reduced Diphtheria, and acellular Pertussis Immunization) Adacel [DGE543] tetanus toxoid, reduced diphtheria toxoid, and acellular [...] Description Chart Maintenance: Outside labs entered on [employer] - Chemistry sodium, serum 139 mmol/L potassium, [...] U/L Chart Maintenance: Outside labs entered on [employer] - Hematology leukocyte count, blood 7.9 10*3/mm3 [...] Negative Encounters Code Encounter Date Provider Facility CPT-70858 Level 3 Est. Patient 15:57:13 CDT Martha Montejo APRN [facility] CPT-12066 Level 3 Est. Patient 14:30:47 [employer] Hector Love MD [facility] CPT-96775 Level 3 Est. Patient 14:50:45 CDT Hector Love MD [facility] CPT-10912 Level 3 Est. Patient 21:17:30 CDT Jen Crystal MD PhD [facility] CPT-27347 Level 3 Est. Patient 09:32:55 CDT Hector Love MD [facility] CPT-24442 Level 3 Est. Patient 15:11:08 [employer] Иван Mooney MD [facility] CPT-15228 Level 3 Est. Patient 16:38:53 [employer] Hector Love MD [facility] CPT-48669 Level 3 Est. Patient 15:46:05 CDT Hector Love MD [facility] CPT-13946 Level 3 Est. Patient 13:59:39 CDT Hector Love MD [facility] CPT-16900 Level 3 Est. Patient 14:44:46 [employer] Hector Love MD [facility] CPT-26250 Level 3 Est. Patient 17:12:27 CDT Hector Loev MD [facility] CPT-78364 Level 3 Est. Patient 15:30:32 CDT Hector Love MD [facility] CPT-69056 Level 3 Est. Patient 14:24:52 CDT Иван Mooney MD [facility] CPT-37551 Level 3 Est. Patient 14:08:38 [employer] Hector Love MD [facility] Procedures Code Procedure Name Date Entry Date Standard Description CPT-84916 Immunization Single Admin 16:11:28 [employer] CPT-93200 Fluzone Quadrivalent Intramuscular Suspension 0.5 ML 16: 11:28 [employer] CPT-92018 Administration single or combination vaccine inc oral 13 :57:23 CDT CPT-68890 Menactra Intramuscular Injectable 13:57:23 CDT CPT-28287 First Vx Component - Ix admin via ID IM or jet inj without physician counseling 16:42:17 [employer] CPT-47316 Fluzone preservative free (>=3 yrs.) 16:42:17 FERRYBOAT DECKHAND 06/03 CPT-04256 Venipuncture Draw Fee 16:29:01 CDT CPT-69964 Chest 2V Frontal and Lat 16:23:56 CDT CPT-50082 Administration single or combination vaccine inc oral 13 :39:17 [employer] CPT-25118 Tdap 13:39:17 [employer]
--- OUTSIDE RECORDS SUMMARY | 2017-11-06 01:28 | XMS REPORT | Continuity of Care Document ---
Author Author [facility] Organization [facility] Address [address] [place] [address] Phone Unavailable Care Team Providers Care Vp Clinical Name Role Phone TRINI FRAIRE PCP Unavailable Insurance Providers Guarantor Nitin Smith Address [address] [place] [phone] Email [email or web address] Payer [facility] Policy Number [id number] Subscriber's Name Nitin Smith Relationship 18 Self / Same As Patient Advance Directives Directive Response Recorded Date/Time Living Will No 03/30/12 10:55am Advance Directives No 01/26/13 3:23pm Advance Directive on File No 07/06/17 11:12pm Durable POA for HC No 07/06/17 11:12pm 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 No 07/06/17 11:12pm Organ Donor No 07/06/17 11:12pm Living Will No 07/06/17 11:12pm Chief Complaint and Reason for Visit Chief Complaint General Complaint Reason for Visit Gastroenteritis Problems Medical Problem Onset Date Status Cellulitis and abscess of trunk Unknown Acute Influenza A Unknown Acute Upper respiratory infection Unknown Acute Past Problems Medical Problem Onset Date Status Gastroenteritis Unknown Acute Medications Current Home Medications Medication Dose Units Route Directions Days Qty Instructions Start Date Cetirizine Hcl (Zyrtec) 10 Mg Capsule 10 Mg Oral Once A Day for Allergies Lisinopril 5 Mg Tablet 7.5 Mg Oral Twice A Day Ondansetron (Zofran Odt) 4 Mg Tab.rapdis 4 Mg Oral Every 6 To 8 Hours As Needed as needed for Nausea / Vomiting 20 Tablet 07/06/17 Tacrolimus (Prograf) 0.5 Mg Capsule 4 Mg Oral Twice A Day Past Home Medications Medication Directions Ordered Status Amoxicillin 500 Mg Tablet, 500 Mg Oral Discontinued Hydrocodone Bit/Acetaminophen (Hydrocodon-Acetaminoph 7.5-325) 1 Each Tablet, 1 Each Oral Every 4 To 6 Hours As Needed 01/26/13 Discontinued Mycophenolate Mofetil (Cellcept) 500 Mg Tablet, 2 Tab Oral Twice A Day Discontinued Prednisone 5 Mg Tablet, 1.5 Tab Oral Once A Day Discontinued Social History Social History Problem Response Recorded Date/Time Onset Date Status Alcohol Use none 07/07/2017 12:02am Not Applicable Not Applicable Drug Use none 07/07/2017 12:02am Not Applicable Not Applicable Smoking Status Never smoker 07/06/2017 11:13pm Not Applicable Not Applicable Smoked in the last 12 months? No 07/06/2017 11:13pm Not Applicable Not Applicable Do you dip or chew tobacco? No 07/06/2017 11:13pm Not Applicable Not Applicable Approx how many cigs per day? 0 07/06/2017 11:13pm Not Applicable Not Applicable Level of Dependence Low 07/06/2017 11:13pm Not Applicable Not Applicable Former smoker, last day smoked? NA 07/06/2017 11:13pm Not Applicable Not Applicable Smoking Status Start Date Stop Date Never smoker Hospital Discharge Instructions No hospital discharge instruction information available. Plan of Care Discharge Date 07/06/17 11:55pm Disposition 01 D/C HOME Condition at Discharge Stable and Improved Instructions/Education Provided Gastroenteritis (ED) Forms Provided ER Discharge Phone Call Check RETURN TO WORK/SCHOOL Prescriptions See Medication Section Referrals TRINI FRAIRE Address: [address] [place] [address] Additional Instructions/Education [place] low fat diet is best, BRATS (Bananas, Rice, Applesauce, [place] and [place]) diet is also good until stomach settles down. Increase fluid intake, PowerAide and Gatorade would be good choices to replace electrolytes lost with vomiting and diarrhea. Treat fever and pain with Tylenol and Motrin as needed. Use the Zofran as needed for nausea. Follow up with primary care provider later this week if no improvements. Return to the ER if worsening or changing emergent symptoms. Care Plan and Goals Problem: General Exam Goal:Continued Wellness Instructions: Follow up with Primary Care Provider & Follow Discharge Instructions given in ER. Functional Status Query Response Date Recorded Activities of Daily Living Performs w/o Assistance July 06, 2017 11:16pm Cognitive Function Intact July 06, 2017 11:16pm Allergies, Adverse Reactions, Alerts Allergen Type Severity Reaction Status Last Updated Promethazine Allergy Unknown Active 08/13/12 Ceftriaxone Allergy Unknown Active 08/13/12 ERYTHROMYCIN Allergy Unknown Active 04/28/12 TAPE Allergy Intermediate RASH Active 06/11/16 Immunizations Query Response on File Recorded Date/Time Hx Influenza Vaccination No 07/06/17 11:33pm Hx Pneumococcal Vaccination No 07/06/17 11:33pm Hx Tetanus, Diphtheria Vaccination Yes 07/06/17 11:33pm Vital Signs Acute Vital Signs Vital Response Date/Time Temperature (Fahrenheit) 97.7 degrees F (97.6 - 99.5) 07/06/2017 11:12pm Temperature (Calculated Celsius) 36.48875 degrees C (36.4 - 37.5) 07/06/2017 11:12pm Temperature Source Temporal Artery Scan 07/06/2017 11:12pm Pulse Pulse Ox Pulse Rate (adult) 99 beats per minute (60 - 90) 07/06/2017 11:50pm Pulse Location Modifier Left 07/06/2017 11:50pm Oxygen Saturation Respiratory Rate 18 breaths per minute (12 - 24) 07/06/2017 11:50pm O2 Sat by Pulse Oximetry 99 % (90 - 100) 07/06/2017 11:50pm Blood Pressure 124/64 mm Hg 07/06/2017 11:50pm Blood Pressure Mean 84 mm Hg 07/06/2017 11:50pm Height 5 ft 11 in 07/06/2017 11:13pm Weight 245 lb 07/06/2017 11:13pm Body Mass Index 34.2 kg/m^2 07/06/2017 11:13pm Results No relevant diagnostic test, laboratory data and/or discharge summary information available. Procedures Procedure Status Date Provider(s) EMERGENCY DEPT VISIT Completed 10/04/16 EMERGENCY DEPT VISIT Completed 10/04/16 Encounters Encounter Location Arrival/Admit Date Discharge/Depart Date Attending Provider Departed Emergency Room [facility] 07/06/17 11:11pm 07/06/17 11: 55pm GEORGIA MENDIOLA APRN Departed Emergency Room [facility] 10/04/16 2:00am 10/04/16 3: 05am YRIS HERNANDEZ MD Recent Diagnosis
--- OUTSIDE RECORDS SUMMARY | 2017-11-06 01:28 | XMS REPORT | Clinical Summary ---
Author Author Admin, LAMBERT Organization [employer] Address Unknown Phone Unavailable Allergies, Adverse Reactions, [...] Gastroenteritis, viral, acute 008.8 Resolved Martha Montejo AUTO MECHANIC APPRENTICE Intestinal infection due to other organism, not elsewhere classified Bronchitis 490 Resolved Hector Love MD Bronchitis, not specified as acute or chronic Pharyngitis 462 Active Иван Mooney MD Acute pharyngitis Ingrown toenail 703.0 Active Manish Castrejon AUTO MECHANIC APPRENTICE Ingrowing nail Ingrown toenail, right 703.0 Active [...] q 4 hours prn pain 11/06 HYDROCODONE-ACETAMINOPHEN 29925787261 Active Hector Love MD Active AUGMENTIN 875-125 MG TAB 1 po BID x 10 days AMOXICILLIN-POT CLAVULANATE 39499768726 No Longer Active Hector Love MD Active FLONASE ALLERGY RELIEF 50 MCG/ACT NASAL SUSP 2 sprays each nostril daily PRN allergies FLUTICASONE PROPIONATE 75507072497 No Longer Active Hector Love MD Active AMOXICILLIN 500 MG CAPS 1 cap by mouth three times a day AMOXICILLIN 84925424380 No Longer Active Jillina Fradebora AUTO MECHANIC APPRENTICE Active KEFLEX 500 MG CAP 1 tab po tid CEPHALEXIN 57758492271 No Longer Active Jillina Frazell AUTO MECHANIC APPRENTICE Active AMOXICILLIN 500 MG TABS 2 tabs twice a day for 10 days AMOXICILLIN 01834044105 No Longer Active Manish Castrejon APRN Active ZYRTEC ALLERGY 10 MG CAPS 1 po qd CETIRIZINE HCL 55316106481 Active Hector Love MD Active PROGRAF 1 MG CAPS 2 tabs po bid TACROLIMUS 49583741875 Active Hector Love MD Active ZOFRAN 4 MG TABS 1 po q6hr PRN Nausea ONDANSETRON HCL 44387853176 No Longer Active Ramona Diggs LPN Active AMOXICILLIN 500 MG CAPS 2 po BID x 10 days AMOXICILLIN 84583094655 No Longer Active Martha Montejo APRN Active AUGMENTIN 875-125 MG TAB 1 tab by mouth twice daily with food AMOXICILLIN-POT CLAVULANATE 89553252890 No Longer Active Hector Love MD Active LEVAQUIN 500 MG TABS 1 pill by mouth daily LEVOFLOXACIN 88125020135 No Longer Active Jen Crystal MD PhD Active LISINOPRIL 5 MG TABS 1.5 tab qd LISINOPRIL 88747003775 Active Jen Crystal MD PhD Active KETOCONAZOLE 2 % CREA apply twice a day to rash KETOCONAZOLE 18747112781 No Longer Active Hector Love MD Active AUGMENTIN 875-125 MG TAB 1 tab by mouth twice daily with food AMOXICILLIN-POT CLAVULANATE 86134747157 No Longer Active Иван Mooney MD Active LOTRISONE 0.05-1 % CREAM Apply twice a day to affected area 07/19 CLOTRIMAZOLE-BETAMETHASONE 41920363663 No Longer Active Иван Mooney MD Active FEXOFENADINE HCL 180 MG TABS 1 Daily FEXOFENADINE HCL 05918393394 No Longer Active Hector Love MD Active PROGRAF 0.5 MG CAPS Take one by mouth daily with 1 mg TACROLIMUS 33399524900 No Longer Active Hector Love MD Active AMOXICILLIN 500 MG CAPS 2 po BID x 10 days AMOXICILLIN 86817694397 No Longer Active Hector Love MD Active RAPAMUNE 1 MG TABS 3 tabs in the am SIROLIMUS 57506918969 No Longer Active Hector Love MD Active AMOXICILLIN 500 MG CAPS 2 po BID x 10 days AMOXICILLIN 60258278850 No Longer Active Hector Love MD Active LORTAB 5 5-500 MG TABS 1/2 to 1 tablet by mouth every 4 hours as needed for pain HYDROCODONE-ACETAMINOPHEN 67613338010 No Longer Active Hector Love MD Active FLUTICASONE PROPIONATE 50 MCG/ACT SUSP INSTILL 2 SPRAYS IN EACH NOSTRIL Q D FLUTICASONE PROPIONATE 36431348383 No Longer Active Hector Love MD Active PROGRAF 1 MG CAPS 1 po bid TACROLIMUS 45119765903 No Longer Active Hector Love MD Active AMOXICILLIN 875 MG TABS 1 tab by mouth twice daily AMOXICILLIN 19472762491 No Longer Active Hector Love MD Active AMOXICILLIN 500 MG CAPS 2 po BID x 10 days AMOXICILLIN 67944961356 No Longer Active Hector Love MD Active AUGMENTIN 875-125 MG TAB 1 tab by mouth twice daily with food AMOXICILLIN-POT CLAVULANATE 12946072000 No Longer Active Hector Love MD Active AZITHROMYCIN 250 MG TABS 2 po qd x 1 day, then 1 po qd x 4 days AZITHROMYCIN 15942603174 No Longer Active Hector Love MD Active CETIRIZINE HCL 10 MG TABS 1 PO Q D CETIRIZINE HCL 76070249181 No Longer Active Waleska Drayden Active PROGRAF 1 MG CAPS 1 po bid PROGRAF 1 MG CAPS 146168 TACROLIMUS Inactive FLUTICASONE PROPIONATE 50 MCG/ACT SUSP INSTILL 2 SPRAYS IN EACH NOSTRIL Q D FLUTICASONE PROPIONATE 50 MCG/ACT SUSP 989677 FLUTICASONE PROPIONATE Inactive LORTAB 5 5-500 MG TABS 1/2 to 1 tablet by mouth every 4 hours as needed for pain LORTAB 5 5-500 MG TABS HYDROCODONE- ACETAMINOPHEN Inactive RAPAMUNE 1 MG TABS 3 tabs in the am RAPAMUNE 1 MG TABS 594396 SIROLIMUS Inactive PROGRAF 0.5 MG CAPS Take one by mouth daily with 1 mg PROGRAF 0.5 MG CAPS 616664 TACROLIMUS Inactive FEXOFENADINE HCL 180 MG TABS 1 Daily FEXOFENADINE HCL 180 MG TABS 838303 FEXOFENADINE HCL Inactive LOTRISONE 0.05-1 % CREAM Apply twice a day to affected area 07/19 LOTRISONE 0.05-1 % CREAM 059412 CLOTRIMAZOLE-BETAMETHASONE Inactive KETOCONAZOLE 2 % CREA apply twice a day to rash KETOCONAZOLE 2 % CREA 860747 KETOCONAZOLE Inactive AUGMENTIN 875-125 MG TAB 1 tab by mouth twice daily with food AUGMENTIN 875-125 MG TAB 062082 AMOXICILLIN-POT CLAVULANATE Inactive ZOFRAN 4 MG TABS 1 po q6hr PRN Nausea ZOFRAN 4 MG TABS 606361 ONDANSETRON HCL Inactive AMOXICILLIN 500 MG TABS 2 tabs twice a day for 10 days AMOXICILLIN 500 MG TABS 157764 AMOXICILLIN Inactive FLONASE ALLERGY RELIEF 50 MCG/ACT NASAL SUSP 2 sprays each nostril daily PRN allergies FLONASE ALLERGY RELIEF 50 MCG/ACT NASAL SUSP 666208 FLUTICASONE PROPIONATE Inactive AMOXICILLIN 500 MG CAPS 2 po BID x 10 days AMOXICILLIN 500 MG CAPS 767578 AMOXICILLIN Inactive AMOXICILLIN 875 MG TABS 1 tab by mouth twice daily AMOXICILLIN 875 MG TABS 190916 AMOXICILLIN Inactive AMOXICILLIN 500 MG CAPS 2 po BID x 10 days AMOXICILLIN 500 MG CAPS 914229 AMOXICILLIN Inactive AMOXICILLIN 500 MG CAPS 2 po BID x 10 days AMOXICILLIN 500 MG CAPS 556353 AMOXICILLIN Inactive AUGMENTIN 875-125 MG TAB 1 tab by mouth twice daily with food AUGMENTIN 875-125 MG TAB 222031 AMOXICILLIN-POT CLAVULANATE Inactive LEVAQUIN 500 MG TABS 1 pill by mouth daily LEVAQUIN 500 MG TABS 493173 LEVOFLOXACIN Inactive AMOXICILLIN 500 MG CAPS 2 po BID x 10 days AMOXICILLIN 500 MG CAPS 538116 AMOXICILLIN Inactive AMOXICILLIN 500 MG CAPS 1 cap by mouth three times a day AMOXICILLIN 500 MG CAPS 303242 AMOXICILLIN Inactive AUGMENTIN 875-125 MG TAB 1 po BID x 10 days AUGMENTIN 875-125 MG TAB 995467 AMOXICILLIN-POT CLAVULANATE Inactive Advance Directives Directive Description Start Date PERMISSION TO SHARE Immunizations Vaccine Administration Date Value Standard Description Seasonal influenza vaccine, injectable, preservative free, for > 3 years old ( Afluria, FluLaval, Fluzone, Fluvirin, Fluarix, Agriflu(>=18 yo)) Fluzone preservative free (>=3 yrs.) [YHJ471] Influenza, seasonal, injectable, preservative free Adacel (Tetanus, reduced Diphtheria, and acellular Pertussis Immunization) Adacel [MMC440] tetanus toxoid, reduced diphtheria toxoid, and acellular [...] Negative Encounters Code Encounter Date Provider Facility CPT-21931 Level 3 Est. Patient 16:14:45 CDT Hector Love MD [facility] CPT-55892 Level 3 Est. Patient 16:53:35 CDT Иван Mooney MD [facility] CPT-38375 Level 3 Est. Patient 15:57:13 CDT Martha Montejo APRN [facility] CPT-08303 Level 3 Est. Patient 14:30:47 ASSISTANT IN NURSING Hector Love MD [facility] CPT-74777 Level 3 Est. Patient 14:50:45 CDT Hector Love MD [facility] CPT-55018 Level 3 Est. Patient 21:17:30 CDT Jen Crystal MD PhD [facility] CPT-04777 Level 3 Est. Patient 09:32:55 CDT Hector Love MD [facility] CPT-30575 Level 3 Est. Patient 15:11:08 ASSISTANT IN NURSING Иван Mooney MD [facility] CPT-24501 Level 3 Est. Patient 16:38:53 ASSISTANT IN NURSING Hector Love MD [facility] CPT-53244 Level 3 Est. Patient 15:46:05 CDT Hector Love MD [facility] CPT-45629 Level 3 Est. Patient 13:59:39 CDT Hector Love MD [facility] CPT-24115 Level 3 Est. Patient 14:44:46 ASSISTANT IN NURSING Hector Love MD [facility] CPT-09504 Level 3 Est. Patient 17:12:27 CDT Hector Love MD [facility] CPT-49781 Level 3 Est. Patient 15:30:32 CDT Hector Love MD [facility] CPT-38398 Level 3 Est. Patient 14:24:52 CDT Иван Mooney MD [facility] CPT-56164 Level 3 Est. Patient 14:08:38 ASSISTANT IN NURSING Hector Love MD [facility] Procedures Code Procedure Name Date Entry Date Standard Description CPT-83337 Fluzone Quadrivalent Intramuscular Suspension 0.5 ML 16: 12:26 ASSISTANT IN NURSING CPT-42386 Immunization Single Admin 16:12:26 ASSISTANT IN NURSING CPT-J0561 Bicillin LA 1,200,000 u (PCN G Benzathine) 16:40:23 CDT CPT-00432 Abx/Therapy Injection 16:40:22 CDT CPT-J0561 Bicillin LA 1,200,000 u (PCN G Benzathine) 16:15:35 CDT CPT-17062 Immunization Single Admin 16:11:28 ASSISTANT IN NURSING CPT-90026 Fluzone Quadrivalent Intramuscular Suspension 0.5 ML 16: 11:28 ASSISTANT IN NURSING CPT-67441 Administration single or combination vaccine inc oral 13 :57:23 CDT CPT-73410 Menactra Intramuscular Injectable 13:57:23 CDT CPT-87662 First Vx Component - Ix admin via ID IM or jet inj without physician counseling 16:42:17 ASSISTANT IN NURSING CPT-55715 Fluzone preservative free (>=3 yrs.) 16:42:17 ASSISTANT IN NURSING 06/03 CPT-64046 Venipuncture Draw Fee 16:29:01 CDT CPT-75020 Chest 2V Frontal and Lat 16:23:56 CDT CPT-53635 Administration single or combination vaccine inc oral 13 :39:17 ASSISTANT IN NURSING CPT-41155 Tdap 13:39:17 ASSISTANT IN NURSING
--- OUTSIDE RECORDS SUMMARY | 2017-11-06 01:29 | XMS REPORT | Clinical Summary ---
Author Author Admin, LAMBERT Organization [employer] Address Unknown Phone Unavailable Allergies, Adverse Reactions, [...] Comment Standard Description Annotate HYPERTENSION 401.9 Resolved Hcetor Love MD Unspecified essential hypertension FH DIABETES [...] care facility Fatigue 780.79 Active Manish Castrejon [employer] Other malaise and fatigue Body Mass Index 34.0-34.9 Adult Active Manish Castrejon [employer] Body Mass Index 34.0-34.9, adult HYPERTENSION ICD-401.9 Inactive Hector Love MD BRONCHITIS, ACUTE ICD-466.0 Inactive Hector Love MD KNEE SPRAIN, LEFT ICD-844.9 Inactive Hector Love MD U R I ICD-465.9 Inactive Hector Love MD FH DIABETES ICD-V18.0 Inactive Hector Love MD COUGH ICD-786.2 Inactive Hector Love MD FEVER UNSPECIFIED ICD-780.60 [...] Gastroenteritis, viral, acute ICD-008.8 Inactive Martha Montejo [employer] COSTOCHRONDRITIS ICD-733.6 Inactive Hector Love MD SINUSITIS, ACUTE ICD-461.9 Inactive Hector Love MD Ingrown toenail ICD-703.0 [...] at work ICD-V62.1 Inactive Hector Love MD Pharyngitis ICD-462 Inactive Hector Love MD Bronchitis ICD-490 Inactive Hector Love MD 2014 Medication List Medication Instructions Start Date Stop Date Generic Name NDC Status Provider Patient Instruction PROGRAF 1 MG ORAL CAPSULE 2 po BID TACROLIMUS 29891158882 Active Hector Loev MD Active CETIRIZINE HCL 10 MG ORAL TABLET 1 po qd PRN Allergies CETIRIZINE HCL 68328723496 Active Hector Love MD Active LISINOPRIL 5 MG ORAL TABLET 1.5 po qd LISINOPRIL 74808921293 Active Hector Love MD Active FLUTICASONE PROPIONATE 50 MCG/ACT NASAL SUSPENSION 2 sprays/nostril qd PRN Congestion/Allergies FLUTICASONE PROPIONATE 78070841540 Active Hector Love MD Active VITAMIN C 500 MG ORAL TABLET CHEWABLE ASCORBIC ACID 47714142891 No Longer Active Hector Love MD Active PREDNISONE 20 MG ORAL TABLET 1 tablet daily x 2 days PREDNISONE 77061608246 No Longer Active Manish Castrejon APRN Active AMOXICILLIN 500 MG ORAL TABLET Take two tablets by mouth every 12 hours for 10 days AMOXICILLIN 51541495235 No Longer Active Иван Mooney MD Active PREDNISONE 20 MG ORAL TABLET 2 po qd x 4 days PREDNISONE 11670871319 No Longer Active Hector Love MD Active HYDROCODONE-ACETAMINOPHEN 5-325 MG ORAL TABLET 1/2 to 1 po q 4 hours prn pain HYDROCODONE-ACETAMINOPHEN 98142594139 No Longer Active Hector Love MD Active AUGMENTIN 875-125 MG ORAL TABLET 1 po BID x 10 days AMOXICILLIN-POT CLAVULANATE 73667634281 No Longer Active Hector Love MD Active FLONASE ALLERGY RELIEF 50 MCG/ACT NASAL SUSPENSION 2 sprays each nostril daily PRN allergies FLUTICASONE PROPIONATE 09513182471 No Longer Active Hector Love MD Active AMOXICILLIN 500 MG ORAL CAPSULE 1 cap by mouth three times a day AMOXICILLIN 75758174326 No Longer Active Manish Castrejon APRN Active KEFLEX 500 MG ORAL CAPSULE 1 tab po tid CEPHALEXIN 48278617284 No Longer Active Jillina Fradebora GARCIA Active AMOXICILLIN 500 MG ORAL TABLET 2 tabs twice a day for 10 days AMOXICILLIN 06031961351 No Longer Active Elijahlldenise Fradebora GARCIA Active ZOFRAN 4 MG ORAL TABLET 1 po q6hr PRN Nausea ONDANSETRON HCL 49438329528 No Longer Active Ramona Diggs LPN Active AMOXICILLIN 500 MG ORAL CAPSULE 2 po BID x 10 days AMOXICILLIN 55474180999 No Longer Active Martha Montejo APRN Active AUGMENTIN 875-125 MG ORAL TABLET 1 tab by mouth twice daily with food AMOXICILLIN-POT CLAVULANATE 31786981691 No Longer Active Hector Love MD Active LEVAQUIN 500 MG ORAL TABLET 1 pill by mouth daily LEVOFLOXACIN 34861791224 No Longer Active Jen Crystal MD PhD Active KETOCONAZOLE 2 % EXTERNAL CREAM apply twice a day to rash KETOCONAZOLE 90035954649 No Longer Active Hector Love MD Active AUGMENTIN 875-125 MG ORAL TABLET 1 tab by mouth twice daily with food AMOXICILLIN-POT CLAVULANATE 55270331326 No Longer Active Иван Mooney MD Active LOTRISONE 1-0.05 % EXTERNAL CREAM Apply twice a day to affected area CLOTRIMAZOLE-BETAMETHASONE 22107854920 No Longer Active Иван Mooney MD Active FEXOFENADINE HCL 180 MG ORAL TABLET 1 Daily FEXOFENADINE HCL 18229049747 No Longer Active Hector Love MD Active PROGRAF 0.5 MG ORAL CAPSULE Take one by mouth daily with 1 mg TACROLIMUS 38169911778 No Longer Active Hector Love MD Active AMOXICILLIN 500 MG ORAL CAPSULE 2 po BID x 10 days AMOXICILLIN 76274121013 No Longer Active Hector Love MD Active RAPAMUNE 1 MG ORAL TABLET 3 tabs in the am SIROLIMUS 68923336080 No Longer Active Hector Love MD Active AMOXICILLIN 500 MG ORAL CAPSULE 2 po BID x 10 days AMOXICILLIN 84559581025 No Longer Active Hector Love MD Active LORTAB 5-500 MG ORAL TABLET 1/2 to 1 tablet by mouth every 4 hours as needed for pain HYDROCODONE-ACETAMINOPHEN 94502295776 No Longer Active Hector Love MD Active FLUTICASONE PROPIONATE 50 MCG/ACT NASAL SUSPENSION INSTILL 2 SPRAYS IN EACH NOSTRIL Q D FLUTICASONE PROPIONATE 13831004738 No Longer Active Hector Love MD Active PROGRAF 1 MG ORAL CAPSULE 1 po bid TACROLIMUS 57936353741 No Longer Active Hector Love MD Active AMOXICILLIN 875 MG ORAL TABLET 1 tab by mouth twice daily AMOXICILLIN 32038874391 No Longer Active Hector Love MD Active AMOXICILLIN 500 MG ORAL CAPSULE 2 po BID x 10 days AMOXICILLIN 51220831284 No Longer Active Hector Love MD Active AUGMENTIN 875-125 MG ORAL TABLET 1 tab by mouth twice daily with food AMOXICILLIN-POT CLAVULANATE 59895374158 No Longer Active Hector Love MD Active AZITHROMYCIN 250 MG ORAL TABLET 2 po qd x 1 day, then 1 po qd x 4 days 06/19 AZITHROMYCIN 18540044329 No Longer Active Hector Love MD Active CETIRIZINE HCL 10 MG ORAL TABLET 1 PO Q D CETIRIZINE HCL 39021358678 No Longer Active [place] Active PROGRAF 1 MG ORAL CAPSULE 1 po bid PROGRAF 1 MG ORAL CAPSULE 729841 TACROLIMUS Inactive FLUTICASONE PROPIONATE 50 MCG/ACT NASAL SUSPENSION INSTILL 2 SPRAYS IN EACH NOSTRIL Q D FLUTICASONE PROPIONATE 50 MCG/ACT NASAL SUSPENSION 0213055 FLUTICASONE PROPIONATE Inactive LORTAB 5-500 MG ORAL TABLET 1/2 to 1 tablet by mouth every 4 hours as needed for pain LORTAB 5-500 MG ORAL TABLET HYDROCODONE- ACETAMINOPHEN Inactive RAPAMUNE 1 MG ORAL TABLET 3 tabs in the am RAPAMUNE 1 MG ORAL TABLET 508253 SIROLIMUS Inactive PROGRAF 0.5 MG ORAL CAPSULE Take one by mouth daily with 1 mg PROGRAF 0.5 MG ORAL CAPSULE 894735 TACROLIMUS Inactive FEXOFENADINE HCL 180 MG ORAL TABLET 1 Daily FEXOFENADINE HCL 180 MG ORAL TABLET 882062 FEXOFENADINE HCL Inactive LOTRISONE 1-0.05 % EXTERNAL CREAM Apply twice a day to affected area LOTRISONE 1-0.05 % EXTERNAL CREAM 667719 CLOTRIMAZOLE- BETAMETHASONE Inactive KETOCONAZOLE 2 % EXTERNAL CREAM apply twice a day to rash KETOCONAZOLE 2 % EXTERNAL CREAM 660110 KETOCONAZOLE Inactive AUGMENTIN 875-125 MG ORAL TABLET 1 tab by mouth twice daily with food AUGMENTIN 875-125 MG ORAL TABLET 350795 AMOXICILLIN-POT CLAVULANATE Inactive ZOFRAN 4 MG ORAL TABLET 1 po q6hr PRN Nausea ZOFRAN 4 MG ORAL TABLET 661956 ONDANSETRON HCL Inactive AMOXICILLIN 500 MG ORAL TABLET 2 tabs twice a day for 10 days AMOXICILLIN 500 MG ORAL TABLET 744806 AMOXICILLIN Inactive FLONASE ALLERGY RELIEF 50 MCG/ACT NASAL SUSPENSION 2 sprays each nostril daily PRN allergies FLONASE ALLERGY RELIEF 50 MCG/ACT NASAL SUSPENSION 1241576 FLUTICASONE PROPIONATE Inactive HYDROCODONE-ACETAMINOPHEN 5-325 MG ORAL TABLET 1/2 to 1 po q 4 hours prn pain HYDROCODONE-ACETAMINOPHEN 5-325 MG ORAL TABLET 539943 HYDROCODONE-ACETAMINOPHEN Inactive PREDNISONE 20 MG ORAL TABLET 1 tablet daily x 2 days PREDNISONE 20 MG ORAL TABLET 016680 PREDNISONE Inactive VITAMIN C 500 MG ORAL TABLET CHEWABLE VITAMIN C 500 MG ORAL TABLET CHEWABLE ASCORBIC ACID Inactive AMOXICILLIN 500 MG ORAL CAPSULE 2 po BID x 10 days AMOXICILLIN 500 MG ORAL CAPSULE 894979 AMOXICILLIN Inactive AMOXICILLIN 875 MG ORAL TABLET 1 tab by mouth twice daily AMOXICILLIN 875 MG ORAL TABLET 552692 AMOXICILLIN Inactive AMOXICILLIN 500 MG ORAL CAPSULE 2 po BID x 10 days AMOXICILLIN 500 MG ORAL CAPSULE 400105 AMOXICILLIN Inactive AMOXICILLIN 500 MG ORAL CAPSULE 2 po BID x 10 days AMOXICILLIN 500 MG ORAL CAPSULE 798054 AMOXICILLIN Inactive AUGMENTIN 875-125 MG ORAL TABLET 1 tab by mouth twice daily with food AUGMENTIN 875-125 MG ORAL TABLET 671322 AMOXICILLIN-POT CLAVULANATE Inactive LEVAQUIN 500 MG ORAL TABLET 1 pill by mouth daily LEVAQUIN 500 MG ORAL TABLET 841110 LEVOFLOXACIN Inactive AMOXICILLIN 500 MG ORAL CAPSULE 2 po BID x 10 days AMOXICILLIN 500 MG ORAL CAPSULE 502547 AMOXICILLIN Inactive AMOXICILLIN 500 MG ORAL CAPSULE 1 cap by mouth three times a day AMOXICILLIN 500 MG ORAL CAPSULE 369081 AMOXICILLIN Inactive AUGMENTIN 875-125 MG ORAL TABLET 1 po BID x 10 days AUGMENTIN 875-125 MG ORAL TABLET 330496 AMOXICILLIN-POT CLAVULANATE Inactive PREDNISONE 20 MG ORAL TABLET 2 po qd x 4 days PREDNISONE 20 MG ORAL TABLET 253942 PREDNISONE Inactive AMOXICILLIN 500 MG ORAL TABLET Take two tablets by mouth every 12 hours for 10 days AMOXICILLIN 500 MG ORAL TABLET 614293 AMOXICILLIN Inactive Advance Directives Directive Description Start Date PERMISSION TO SHARE Immunizations Vaccine Administration Date Value Standard Description Seasonal influenza vaccine, injectable, preservative free, for > 3 years old ( Afluria, FluLaval, Fluzone, Fluvirin, Fluarix, Agriflu(>=18 yo)) Fluzone preservative free (>=3 yrs.) [[id number]] Influenza, seasonal, injectable, preservative free Adacel (Tetanus, reduced Diphtheria, and acellular Pertussis Immunization) Adacel [[id number]] tetanus toxoid, reduced diphtheria toxoid, and acellular [...] Panel - Chemistry sodium, serum 137 mmol/L 421-223 7133/08/14 carbon dioxide, venous blood 29.7 mmol/L 21.0-32.0 potassium, serum 4.3 mmol/L 3.5-5.2 chloride, serum 99 mmol/L 98-107 blood glucose 123 mg/dL 65-110 urea nitrogen, blood 12 mg/dL 7-18 creatinine, serum 0.84 mg/dL 0.60-1.30 alanine aminotransferase (SGPT), serum 48 U/L 12-78 aspartate aminotransferase (SGOT), serum 26 U/L 15-37 calcium, serum 9.4 mg/dL 8.5-10.1 bilirubin, serum, total 1.60 mg/dL 0.00-1.00 cholesterol, serum 141 mg/dL 801-625 7375/08/14 triglyceride, serum, fasting 54 mg/dL 30-200 HDL [...] semiquantitative 6.0 5.0-8.5 Lab Report: VITAMIN D, 25-HYDROXY/62579 - Chemistry vitamin D 25-hydroxy, serum 18 ng/mL 30-100 Encounters Code Encounter Date Provider Facility CPT-33419 Level 3 Est. Patient 10:49:[address] [facility] [place]-[id number] Level 3 Est. Patient 11:35:[address] [facility] [place]-13243 Level 3 Est. Patient 17:22:36 [facility] Est[facility] Patient 16:06:03 CDT Manish Castrejon [facility] CPT-61335 Level 3 Est. Patient 09:57:24 CDT Manish Castrejon [facility] CPT-42439 Level 3 Est. Patient 16:31:04 CDT Иван Mooney MD [facility] CPT-88312 Level 4 Est. Patient 12:02:18 CDT Hector Love MD [facility] CPT-16680 Level 3 Est. Patient 16:14:45 CDT Hector Love MD [facility] CPT-14091 Level 3 Est. Patient 16:53:35 CDT Иван Mooney MD [facility] CPT-01980 Level 3 Est. Patient 15:57:13 CDT Martha Montejo [facility] CPT-54731 Level 3 Est. Patient 14:30:47 ASSISTANT CURATOR Hector Love MD [facility] CPT-03989 Level 3 Est. Patient 14:50:45 CDT Hector Love MD [facility] CPT-06381 Level 3 Est. Patient 21:17:30 CDT Jen Crystal MD PhD [facility] CPT-52790 Level 3 Est. Patient 09:32:55 CDT Hector Love MD [facility] CPT-35772 Level 3 Est. Patient 15:11:08 ASSISTANT CURATOR Иван Mooney MD [facility] CPT-90710 Level 3 Est. Patient 16:38:53 ASSISTANT CURATOR Hector Love MD [facility] CPT-28085 Level 3 Est. Patient 15:46:05 CDT Hector Love MD [facility] CPT-84866 Level 3 Est. Patient 13:59:39 CDT Hector Love MD [facility] CPT-69377 Level 3 Est. Patient 14:44:46 ASSISTANT CURATOR Hector Love MD [facility] CPT-48936 Level 3 Est. Patient 17:12:27 CDT Hector Love MD [facility] CPT-10906 Level 3 Est. Patient 15:30:32 CDT Hector Love MD [facility] CPT-82205 Level 3 Est. Patient 14:24:52 CDT Иван Mooney MD [facility] CPT-32535 Level 3 Est. Patient 14:08:38 ASSISTANT CURATOR Hector Love MD [facility] Procedures Code Procedure Name Date Entry Date Standard Description CPT-94422 Chest, 2 views 11:04:30 CDT CPT-83478 Venipuncture Draw Fee 16:18:26 CDT CPT-09877 TB Skin Test 09:57:25 CDT CPT-000 Give Appropriate Flu Vaccine 16:22:23 ASSISTANT CURATOR CPT-30099 Free T4 - LAB USE ONLY 11:38:58 CDT CPT-22840 TSH - LAB USE ONLY 11:38:58 CDT CPT-87260 Venipuncture Draw Fee 11:38:58 CDT CPT-70248 Fluzone Quadrivalent Intramuscular Suspension 0.5 ML 16: 12:26 ASSISTANT CURATOR CPT-46597 Immunization Single Admin 16:12:26 ASSISTANT CURATOR CPT-J0561 Bicillin LA 1,200,000 u (PCN G Benzathine) 16:40:23 CDT CPT-09767 Abx/Therapy Injection 16:40:22 CDT CPT-J0561 Bicillin LA 1,200,000 u (PCN G Benzathine) 16:15:35 CDT CPT-03846 Immunization Single Admin 16:11:28 ASSISTANT CURATOR CPT-90445 Fluzone Quadrivalent Intramuscular Suspension 0.5 ML 16: 11:28 ASSISTANT CURATOR CPT-71185 Administration single or combination vaccine inc oral 13 :57:23 CDT CPT-12062 Menactra Intramuscular Injectable 13:57:23 CDT CPT-57957 First Vx Component - Ix admin via ID IM or jet inj without physician counseling 16:42:17 ASSISTANT CURATOR CPT-31588 Fluzone preservative free (>=3 yrs.) 16:42:17 ASSISTANT CURATOR 06/03 CPT-83585 Venipuncture Draw Fee 16:29:01 CDT CPT-57223 Chest 2V Frontal and Lat 16:23:56 CDT CPT-95915 Administration single or combination vaccine inc oral 13 :39:17 ASSISTANT CURATOR CPT-23949 Tdap 13:39:17 ASSISTANT CURATOR
--- OUTSIDE RECORDS SUMMARY | 2017-11-06 01:30 | XMS REPORT | Clinical Summary ---
Author Author Admin, QIE Organization [facility] [employer] Address Unknown Phone Unavailable Allergies, Adverse Reactions, [...] every 12 hours for 10 days AMOXICILLIN 45666720525 Active Иван Mooney MD Active VITAMIN C 500 MG CHEW TAB ASCORBIC ACID 08900326039 Active Иван Mooney MD Active PREDNISONE 20 MG TAB 2 po qd x 4 days PREDNISONE 62731935100 No Longer Active Hector Love MD Active HYDROCODONE-ACETAMINOPHEN 5-325 MG TABS 1/2 to 1 po q 4 hours prn pain 11/06 HYDROCODONE-ACETAMINOPHEN 97485725040 No Longer Active Hector Love MD Active FLONASE ALLERGY RELIEF 50 MCG/ACT NASAL SUSP 2 spray each nostril daily prn allergies FLUTICASONE PROPIONATE 09634040490 Active Hector Love MD Active AUGMENTIN 875-125 MG TAB 1 po BID x 10 days AMOXICILLIN-POT CLAVULANATE 12144536314 No Longer Active Hector Love MD Active FLONASE ALLERGY RELIEF 50 MCG/ACT NASAL SUSP 2 sprays each nostril daily PRN allergies FLUTICASONE PROPIONATE 46461967470 No Longer Active Hector Love MD Active AMOXICILLIN 500 MG CAPS 1 cap by mouth three times a day AMOXICILLIN 39591210996 No Longer Active Jillina Frazell BIOLOGIST Active KEFLEX 500 MG CAP 1 tab po tid CEPHALEXIN 00445475500 No Longer Active Jillina Frazell BIOLOGIST Active AMOXICILLIN 500 MG TABS 2 tabs twice a day for 10 days AMOXICILLIN 74882863677 No Longer Active Jillina Frazell BIOLOGIST Active ZYRTEC ALLERGY 10 MG CAPS 1 po qd CETIRIZINE HCL 68391010839 Active Hector Love MD Active PROGRAF 1 MG CAPS 2 tabs po bid TACROLIMUS 02065990133 Active Hector Love MD Active ZOFRAN 4 MG TABS 1 po q6hr PRN Nausea ONDANSETRON HCL 11567672944 No Longer Active Ramona Diggs LPN Active AMOXICILLIN 500 MG CAPS 2 po BID x 10 days AMOXICILLIN 52539861078 No Longer Active Martha Montejo BIOLOGIST Active AUGMENTIN 875-125 MG TAB 1 tab by mouth twice daily with food AMOXICILLIN-POT CLAVULANATE 95098989883 No Longer Active Hector Love MD Active LEVAQUIN 500 MG TABS 1 pill by mouth daily LEVOFLOXACIN 90559229035 No Longer Active Jen Crystal MD PhD Active LISINOPRIL 5 MG TABS 1.5 tab qd LISINOPRIL 48952769076 Active Jen Crystal MD PhD Active KETOCONAZOLE 2 % CREA apply twice a day to rash KETOCONAZOLE 21684930676 No Longer Active Hector Love MD Active AUGMENTIN 875-125 MG TAB 1 tab by mouth twice daily with food AMOXICILLIN-POT CLAVULANATE 81625525734 No Longer Active Иван Mooney MD Active LOTRISONE 0.05-1 % CREAM Apply twice a day to affected area 07/19 CLOTRIMAZOLE-BETAMETHASONE 55583849262 No Longer Active Иван Mooney MD Active FEXOFENADINE HCL 180 MG TABS 1 Daily FEXOFENADINE HCL 35057149680 No Longer Active Hector Love MD Active PROGRAF 0.5 MG CAPS Take one by mouth daily with 1 mg TACROLIMUS 48423192542 No Longer Active Hector Love MD Active AMOXICILLIN 500 MG CAPS 2 po BID x 10 days AMOXICILLIN 57664772062 No Longer Active Hector Love MD Active RAPAMUNE 1 MG TABS 3 tabs in the am SIROLIMUS 71945146531 No Longer Active Hector Love MD Active AMOXICILLIN 500 MG CAPS 2 po BID x 10 days AMOXICILLIN 66686590845 No Longer Active Hector Love MD Active LORTAB 5 5-500 MG TABS 1/2 to 1 tablet by mouth every 4 hours as needed for pain HYDROCODONE-ACETAMINOPHEN 48495860653 No Longer Active Hector Lvoe MD Active FLUTICASONE PROPIONATE 50 MCG/ACT SUSP INSTILL 2 SPRAYS IN EACH NOSTRIL Q D FLUTICASONE PROPIONATE 07049396146 No Longer Active Hector Love MD Active PROGRAF 1 MG CAPS 1 po bid TACROLIMUS 74976648858 No Longer Active Hector Love MD Active AMOXICILLIN 875 MG TABS 1 tab by mouth twice daily AMOXICILLIN 78762718478 No Longer Active Hector Love MD Active AMOXICILLIN 500 MG CAPS 2 po BID x 10 days AMOXICILLIN 52941453886 No Longer Active Hector Love MD Active AUGMENTIN 875-125 MG TAB 1 tab by mouth twice daily with food AMOXICILLIN-POT CLAVULANATE 53582304128 No Longer Active Hector Love MD Active AZITHROMYCIN 250 MG TABS 2 po qd x 1 day, then 1 po qd x 4 days AZITHROMYCIN 33290428200 No Longer Active Hector Love MD Active CETIRIZINE HCL 10 MG TABS 1 PO Q D CETIRIZINE HCL 92458706769 No Longer Active Waleska Isabella Active PROGRAF 1 MG CAPS 1 po bid PROGRAF 1 MG CAPS 859240 TACROLIMUS Inactive FLUTICASONE PROPIONATE 50 MCG/ACT SUSP INSTILL 2 SPRAYS IN EACH NOSTRIL Q D FLUTICASONE PROPIONATE 50 MCG/ACT SUSP 6516279 FLUTICASONE PROPIONATE Inactive LORTAB 5 5-500 MG TABS 1/2 to 1 tablet by mouth every 4 hours as needed for pain LORTAB 5 5-500 MG TABS HYDROCODONE- ACETAMINOPHEN Inactive RAPAMUNE 1 MG TABS 3 tabs in the am RAPAMUNE 1 MG TABS 045902 SIROLIMUS Inactive PROGRAF 0.5 MG CAPS Take one by mouth daily with 1 mg PROGRAF 0.5 MG CAPS 207934 TACROLIMUS Inactive FEXOFENADINE HCL 180 MG TABS 1 Daily FEXOFENADINE HCL 180 MG TABS 141243 FEXOFENADINE HCL Inactive LOTRISONE 0.05-1 % CREAM Apply twice a day to affected area 07/19 LOTRISONE 0.05-1 % CREAM 082328 CLOTRIMAZOLE-BETAMETHASONE Inactive KETOCONAZOLE 2 % CREA apply twice a day to rash KETOCONAZOLE 2 % CREA 146535 KETOCONAZOLE Inactive AUGMENTIN 875-125 MG TAB 1 tab by mouth twice daily with food AUGMENTIN 875-125 MG TAB 822120 AMOXICILLIN-POT CLAVULANATE Inactive ZOFRAN 4 MG TABS 1 po q6hr PRN Nausea ZOFRAN 4 MG TABS 434853 ONDANSETRON HCL Inactive AMOXICILLIN 500 MG TABS 2 tabs twice a day for 10 days AMOXICILLIN 500 MG TABS 545216 AMOXICILLIN Inactive FLONASE ALLERGY RELIEF 50 MCG/ACT NASAL SUSP 2 sprays each nostril daily PRN allergies FLONASE ALLERGY RELIEF 50 MCG/ACT NASAL SUSP 5013411 FLUTICASONE PROPIONATE Inactive HYDROCODONE-ACETAMINOPHEN 5-325 MG TABS 1/2 to 1 po q 4 hours prn pain 11/06 HYDROCODONE-ACETAMINOPHEN 5-325 MG TABS 136802 HYDROCODONE- ACETAMINOPHEN Inactive AMOXICILLIN 500 MG CAPS 2 po BID x 10 days AMOXICILLIN 500 MG CAPS 583774 AMOXICILLIN Inactive AMOXICILLIN 875 MG TABS 1 tab by mouth twice daily AMOXICILLIN 875 MG TABS 698407 AMOXICILLIN Inactive AMOXICILLIN 500 MG CAPS 2 po BID x 10 days AMOXICILLIN 500 MG CAPS 898846 AMOXICILLIN Inactive AMOXICILLIN 500 MG CAPS 2 po BID x 10 days AMOXICILLIN 500 MG CAPS 922857 AMOXICILLIN Inactive AUGMENTIN 875-125 MG TAB 1 tab by mouth twice daily with food AUGMENTIN 875-125 MG TAB 212960 AMOXICILLIN-POT CLAVULANATE Inactive LEVAQUIN 500 MG TABS 1 pill by mouth daily LEVAQUIN 500 MG TABS 559438 LEVOFLOXACIN Inactive AMOXICILLIN 500 MG CAPS 2 po BID x 10 days AMOXICILLIN 500 MG CAPS 492381 AMOXICILLIN Inactive AMOXICILLIN 500 MG CAPS 1 cap by mouth three times a day AMOXICILLIN 500 MG CAPS 925992 AMOXICILLIN Inactive AUGMENTIN 875-125 MG TAB 1 po BID x 10 days AUGMENTIN 875-125 MG TAB 226771 AMOXICILLIN-POT CLAVULANATE Inactive PREDNISONE 20 MG TAB 2 po qd x 4 days PREDNISONE 20 MG TAB 881873 PREDNISONE Inactive Advance Directives Directive Description Start Date PERMISSION TO SHARE Immunizations Vaccine Administration Date Value Standard Description Seasonal influenza vaccine, injectable, preservative free, for > 3 years old ( Afluria, FluLaval, Fluzone, Fluvirin, Fluarix, Agriflu(>=18 yo)) Fluzone preservative free (>=3 yrs.) [[id number]] Influenza, seasonal, injectable, preservative free Adacel (Tetanus, reduced Diphtheria, and acellular Pertussis Immunization) Adacel [[id number]] tetanus toxoid, reduced diphtheria toxoid, and acellular [...] 0.76-1.46 Encounters Code Encounter Date Provider Facility CPT-42286 Level 3 Est. Patient 16:31:04 CDT Иван Mooney MD [facility] CPT-38108 Level 4 Est. Patient 12:02:18 CDT Hector Love MD [facility] CPT-46211 Level 3 Est. Patient 16:14:45 CDT Hector Love MD [facility] CPT-03066 Level 3 Est. Patient 16:53:35 CDT Иван Mooney MD [facility] CPT-40723 Level 3 Est. Patient 15:57:13 CDT Martha Escalantestephen GARCIA [facility] CPT-92558 Level 3 Est. Patient 14:30:47 BIOLOGICAL INSPECTOR Hector Love MD [facility] CPT-37109 Level 3 Est. Patient 14:50:45 CDT Hector Love MD [facility] CPT-04644 Level 3 Est. Patient 21:17:30 CDT Jen Crystal MD, PhD [facility] CPT-76578 Level 3 Est. Patient 09:32:55 CDT Hector Love MD [facility] CPT-48132 Level 3 Est. Patient 15:11:08 BIOLOGICAL INSPECTOR Иван Mooney MD [facility] CPT-28156 Level 3 Est. Patient 16:38:53 BIOLOGICAL INSPECTOR Hector Love MD [facility] CPT-54100 Level 3 Est. Patient 15:46:05 CDT Hector Love MD [facility] CPT-61491 Level 3 Est. Patient 13:59:39 CDT Hector Love MD [facility] CPT-17223 Level 3 Est. Patient 14:44:46 BIOLOGICAL INSPECTOR Hector Love MD [facility] CPT-55698 Level 3 Est. Patient 17:12:27 CDT Hector Love MD [facility] CPT-84656 Level 3 Est. Patient 15:30:32 CDT Hector Love MD [facility] CPT-56799 Level 3 Est. Patient 14:24:52 CDT Иван Mooney MD [facility] CPT-41512 Level 3 Est. Patient 14:08:38 BIOLOGICAL INSPECTOR Hector Love MD [facility] Procedures Code Procedure Name Date Entry Date Standard Description CPT-000 Give Appropriate Flu Vaccine 16:22:23 BIOLOGICAL INSPECTOR CPT-85168 Free T4 - LAB USE ONLY 11:38:58 CDT CPT-80544 TSH - LAB USE ONLY 11:38:58 CDT CPT-23142 Venipuncture Draw Fee 11:38:58 CDT CPT-30781 Fluzone Quadrivalent Intramuscular Suspension 0.5 ML 16: 12:26 BIOLOGICAL INSPECTOR CPT-35419 Immunization Single Admin 16:12:26 BIOLOGICAL INSPECTOR CPT-J0561 Bicillin LA 1,200,000 u (PCN G Benzathine) 16:40:23 CDT CPT-91221 Abx/Therapy Injection 16:40:22 CDT CPT-J0561 Bicillin LA 1,200,000 u (PCN G Benzathine) 16:15:35 CDT CPT-88455 Immunization Single Admin 16:11:28 BIOLOGICAL INSPECTOR CPT-96920 Fluzone Quadrivalent Intramuscular Suspension 0.5 ML 16: 11:28 BIOLOGICAL INSPECTOR CPT-03240 Administration single or combination vaccine inc oral 13 :57:23 CDT CPT-78137 Menactra Intramuscular Injectable 13:57:23 CDT CPT-51920 First Vx Component - Ix admin via ID IM or jet inj without physician counseling 16:42:17 BIOLOGICAL INSPECTOR CPT-55412 Fluzone preservative free (>=3 yrs.) 16:42:17 BIOLOGICAL INSPECTOR 06/03 CPT-37395 Venipuncture Draw Fee 16:29:01 CDT CPT-17474 Chest 2V Frontal and Lat 16:23:56 CDT CPT-97092 Administration single or combination vaccine inc oral 13 :39:17 BIOLOGICAL INSPECTOR CPT-26376 Tdap 13:39:17 BIOLOGICAL INSPECTOR
--- OUTSIDE RECORDS SUMMARY | 2017-11-06 01:30 | XMS REPORT | Clinical Summary ---
Author Author Admin, LAMBERT Organization [employer] Address Unknown Phone Unavailable Allergies, Adverse Reactions, [...] 2 po qd x 4 days PREDNISONE 84407926205 No Longer Active Hector Love MD Active HYDROCODONE-ACETAMINOPHEN 5-325 MG TABS 1/2 to 1 po q 4 hours prn pain 11/06 HYDROCODONE-ACETAMINOPHEN 65782160864 No Longer Active Hector Love MD Active FLONASE ALLERGY RELIEF 50 MCG/ACT NASAL SUSP 2 spray each nostril daily prn allergies FLUTICASONE PROPIONATE 22651809746 Active Hector Love MD Active AUGMENTIN 875-125 MG TAB 1 po BID x 10 days AMOXICILLIN-POT CLAVULANATE 43696903534 No Longer Active Hector Love MD Active FLONASE ALLERGY RELIEF 50 MCG/ACT NASAL SUSP 2 sprays each nostril daily PRN allergies FLUTICASONE PROPIONATE 46508585023 No Longer Active Hector Love MD Active AMOXICILLIN 500 MG CAPS 1 cap by mouth three times a day AMOXICILLIN 79226268375 No Longer Active Jillina Frazell IRONING PLEATER Active KEFLEX 500 MG CAP 1 tab po tid CEPHALEXIN 88397872700 No Longer Active Jillina Frazell IRONING PLEATER Active AMOXICILLIN 500 MG TABS 2 tabs twice a day for 10 days AMOXICILLIN 39419157130 No Longer Active Jillina Fragretal IRONING PLEATER Active ZYRTEC ALLERGY 10 MG CAPS 1 po qd CETIRIZINE HCL 94309622760 Active Hector Love MD Active PROGRAF 1 MG CAPS 2 tabs po bid TACROLIMUS 13720562706 Active Hector Love MD Active ZOFRAN 4 MG TABS 1 po q6hr PRN Nausea ONDANSETRON HCL 63930574871 No Longer Active Ramona Diggs LPN Active AMOXICILLIN 500 MG CAPS 2 po BID x 10 days AMOXICILLIN 76951702550 No Longer Active Martha Montejo IRONING PLEATER Active AUGMENTIN 875-125 MG TAB 1 tab by mouth twice daily with food AMOXICILLIN-POT CLAVULANATE 67860097619 No Longer Active Hector Love MD Active LEVAQUIN 500 MG TABS 1 pill by mouth daily LEVOFLOXACIN 21943010375 No Longer Active Jen Crystal MD PhD Active LISINOPRIL 5 MG TABS 1.5 tab qd LISINOPRIL 44827087423 Active Jen Crystal MD PhD Active KETOCONAZOLE 2 % CREA apply twice a day to rash KETOCONAZOLE 87400035862 No Longer Active Hector Love MD Active AUGMENTIN 875-125 MG TAB 1 tab by mouth twice daily with food AMOXICILLIN-POT CLAVULANATE 28562429356 No Longer Active Иван Mooney MD Active LOTRISONE 0.05-1 % CREAM Apply twice a day to affected area 07/19 CLOTRIMAZOLE-BETAMETHASONE 74603242367 No Longer Active Иван Mooney MD Active FEXOFENADINE HCL 180 MG TABS 1 Daily FEXOFENADINE HCL 30633536285 No Longer Active Hector Love MD Active PROGRAF 0.5 MG CAPS Take one by mouth daily with 1 mg TACROLIMUS 38801953057 No Longer Active Hector Love MD Active AMOXICILLIN 500 MG CAPS 2 po BID x 10 days AMOXICILLIN 25021209941 No Longer Active Hector Love MD Active RAPAMUNE 1 MG TABS 3 tabs in the am SIROLIMUS 51607535487 No Longer Active Hector Love MD Active AMOXICILLIN 500 MG CAPS 2 po BID x 10 days AMOXICILLIN 42333105803 No Longer Active Hector Love MD Active LORTAB 5 5-500 MG TABS 1/2 to 1 tablet by mouth every 4 hours as needed for pain HYDROCODONE-ACETAMINOPHEN 05562229330 No Longer Active Hector Love MD Active FLUTICASONE PROPIONATE 50 MCG/ACT SUSP INSTILL 2 SPRAYS IN EACH NOSTRIL Q D FLUTICASONE PROPIONATE 79012771530 No Longer Active Hector Love MD Active PROGRAF 1 MG CAPS 1 po bid TACROLIMUS 18325932142 No Longer Active Hector Love MD Active AMOXICILLIN 875 MG TABS 1 tab by mouth twice daily AMOXICILLIN 70465638164 No Longer Active Hector Love MD Active AMOXICILLIN 500 MG CAPS 2 po BID x 10 days AMOXICILLIN 01732808678 No Longer Active Hector Love MD Active AUGMENTIN 875-125 MG TAB 1 tab by mouth twice daily with food AMOXICILLIN-POT CLAVULANATE 05636969330 No Longer Active Hector Love MD Active AZITHROMYCIN 250 MG TABS 2 po qd x 1 day, then 1 po qd x 4 days AZITHROMYCIN 78138417319 No Longer Active Hector Love MD Active CETIRIZINE HCL 10 MG TABS 1 PO Q D CETIRIZINE HCL 52752068366 No Longer Active [facility] Active PROGRAF 1 MG CAPS 1 po bid PROGRAF 1 MG CAPS 392850 TACROLIMUS Inactive FLUTICASONE PROPIONATE 50 MCG/ACT SUSP INSTILL 2 SPRAYS IN EACH NOSTRIL Q D FLUTICASONE PROPIONATE 50 MCG/ACT SUSP 0711612 FLUTICASONE PROPIONATE Inactive LORTAB 5 5-500 MG TABS 1/2 to 1 tablet by mouth every 4 hours as needed for pain LORTAB 5 5-500 MG TABS HYDROCODONE- ACETAMINOPHEN Inactive RAPAMUNE 1 MG TABS 3 tabs in the am RAPAMUNE 1 MG TABS 290648 SIROLIMUS Inactive PROGRAF 0.5 MG CAPS Take one by mouth daily with 1 mg PROGRAF 0.5 MG CAPS 566541 TACROLIMUS Inactive FEXOFENADINE HCL 180 MG TABS 1 Daily FEXOFENADINE HCL 180 MG TABS 651417 FEXOFENADINE HCL Inactive LOTRISONE 0.05-1 % CREAM Apply twice a day to affected area 07/19 LOTRISONE 0.05-1 % CREAM 899859 CLOTRIMAZOLE-BETAMETHASONE Inactive KETOCONAZOLE 2 % CREA apply twice a day to rash KETOCONAZOLE 2 % CREA 181150 KETOCONAZOLE Inactive AUGMENTIN 875-125 MG TAB 1 tab by mouth twice daily with food AUGMENTIN 875-125 MG TAB 528597 AMOXICILLIN-POT CLAVULANATE Inactive ZOFRAN 4 MG TABS 1 po q6hr PRN Nausea ZOFRAN 4 MG TABS 502145 ONDANSETRON HCL Inactive AMOXICILLIN 500 MG TABS 2 tabs twice a day for 10 days AMOXICILLIN 500 MG TABS 811630 AMOXICILLIN Inactive FLONASE ALLERGY RELIEF 50 MCG/ACT NASAL SUSP 2 sprays each nostril daily PRN allergies FLONASE ALLERGY RELIEF 50 MCG/ACT NASAL SUSP 5964356 FLUTICASONE PROPIONATE Inactive HYDROCODONE-ACETAMINOPHEN 5-325 MG TABS 1/2 to 1 po q 4 hours prn pain 11/06 HYDROCODONE-ACETAMINOPHEN 5-325 MG TABS 147854 HYDROCODONE- ACETAMINOPHEN Inactive AMOXICILLIN 500 MG CAPS 2 po BID x 10 days AMOXICILLIN 500 MG CAPS 391869 AMOXICILLIN Inactive AMOXICILLIN 875 MG TABS 1 tab by mouth twice daily AMOXICILLIN 875 MG TABS 915511 AMOXICILLIN Inactive AMOXICILLIN 500 MG CAPS 2 po BID x 10 days AMOXICILLIN 500 MG CAPS 156091 AMOXICILLIN Inactive AMOXICILLIN 500 MG CAPS 2 po BID x 10 days AMOXICILLIN 500 MG CAPS 484420 AMOXICILLIN Inactive AUGMENTIN 875-125 MG TAB 1 tab by mouth twice daily with food AUGMENTIN 875-125 MG TAB 361412 AMOXICILLIN-POT CLAVULANATE Inactive LEVAQUIN 500 MG TABS 1 pill by mouth daily LEVAQUIN 500 MG TABS 495030 LEVOFLOXACIN Inactive AMOXICILLIN 500 MG CAPS 2 po BID x 10 days AMOXICILLIN 500 MG CAPS 140331 AMOXICILLIN Inactive AMOXICILLIN 500 MG CAPS 1 cap by mouth three times a day AMOXICILLIN 500 MG CAPS 362232 AMOXICILLIN Inactive AUGMENTIN 875-125 MG TAB 1 po BID x 10 days AUGMENTIN 875-125 MG TAB 061010 AMOXICILLIN-POT CLAVULANATE Inactive PREDNISONE 20 MG TAB 2 po qd x 4 days PREDNISONE 20 MG TAB 834315 PREDNISONE Inactive Advance Directives Directive Description Start Date PERMISSION TO SHARE Immunizations Vaccine Administration Date Value Standard Description Seasonal influenza vaccine, injectable, preservative free, for > 3 years old ( Afluria, FluLaval, Fluzone, Fluvirin, Fluarix, Agriflu(>=18 yo)) Fluzone preservative free (>=3 yrs.) [[id number]] Influenza, seasonal, injectable, preservative free Adacel (Tetanus, reduced Diphtheria, and acellular Pertussis Immunization) Adacel [[id number]] tetanus toxoid, reduced diphtheria toxoid, and acellular [...] 0.76-1.46 Encounters Code Encounter Date Provider Facility CPT-33720 Level 4 Est. Patient 12:02:18 CDT Hector Love MD [facility] CPT-36468 Level 3 Est. Patient 16:14:45 CDT Hector Love MD [facility] CPT-12860 Level 3 Est. Patient 16:53:35 CDT Иван Mooney MD [facility] CPT-63922 Level 3 Est. Patient 15:57:13 CDT Martha Montejo RADHA [facility] CPT-56264 Level 3 Est. Patient 14:30:47 TIMBER FRAMER Hector Love MD [facility] CPT-84068 Level 3 Est. Patient 14:50:45 CDT Hector Love MD [facility] CPT-08852 Level 3 Est. Patient 21:17:30 CDT Jen Crystal MD PhD [facility] CPT-63279 Level 3 Est. Patient 09:32:55 CDT Hector Love MD [facility] CPT-31476 Level 3 Est. Patient 15:11:08 TIMBER FRAMER Иван Mooney MD [facility] CPT-11104 Level 3 Est. Patient 16:38:53 TIMBER FRAMER Hector Love MD [facility] CPT-51206 Level 3 Est. Patient 15:46:05 CDT Hector Love MD [facility] CPT-17740 Level 3 Est. Patient 13:59:39 CDT Hector Love MD [facility] CPT-81669 Level 3 Est. Patient 14:44:46 TIMBER FRAMER Hector Love MD [facility] CPT-30546 Level 3 Est. Patient 17:12:27 CDT Hector Love MD [facility] CPT-00342 Level 3 Est. Patient 15:30:32 CDT Hector Love MD [facility] CPT-99732 Level 3 Est. Patient 14:24:52 CDT Иван Mooney MD [facility] CPT-98776 Level 3 Est. Patient 14:08:38 TIMBER FRAMER Hector Love MD [facility] Procedures Code Procedure Name Date Entry Date Standard Description CPT-22940 Free T4 - LAB USE ONLY 11:38:58 CDT CPT-06787 TSH - LAB USE ONLY 11:38:58 CDT CPT-44099 Venipuncture Draw Fee 11:38:58 CDT CPT-89098 Fluzone Quadrivalent Intramuscular Suspension 0.5 ML 16: 12:26 TIMBER FRAMER CPT-36765 Immunization Single Admin 16:12:26 TIMBER FRAMER CPT-J0561 Bicillin LA 1,200,000 u (PCN G Benzathine) 16:40:23 CDT CPT-51787 Abx/Therapy Injection 16:40:22 CDT CPT-J0561 Bicillin LA 1,200,000 u (PCN G Benzathine) 16:15:35 CDT CPT-65669 Immunization Single Admin 16:11:28 TIMBER FRAMER CPT-86107 Fluzone Quadrivalent Intramuscular Suspension 0.5 ML 16: 11:28 TIMBER FRAMER CPT-82281 Administration single or combination vaccine inc oral 13 :57:23 CDT CPT-64452 Menactra Intramuscular Injectable 13:57:23 CDT CPT-80804 First Vx Component - Ix admin via ID IM or jet inj without physician counseling 16:42:17 TIMBER FRAMER CPT-82595 Fluzone preservative free (>=3 yrs.) 16:42:17 TIMBER FRAMER 06/03 CPT-17058 Venipuncture Draw Fee 16:29:01 CDT CPT-15200 Chest 2V Frontal and Lat 16:23:56 CDT CPT-08061 Administration single or combination vaccine inc oral 13 :39:17 TIMBER FRAMER [facility]-15571 Tdap 13:39:17 TIMBER FRAMER
--- OUTSIDE RECORDS SUMMARY | 2017-11-06 01:31 | XMS REPORT | Clinical Summary ---
Author Author Admin, LAMBERT Organization [email or web address] Address Unknown Phone Unavailable Allergies, Adverse Reactions, [...] Acute pharyngitis Ingrown toenail 703.0 Resolved Hector oLve MD Ingrowing nail Ingrown toenail, right 703.0 [...] 2 po qd x 4 days PREDNISONE [id number] No Longer Active Hector Love MD Active HYDROCODONE-ACETAMINOPHEN 5-325 MG TABS 1/2 to 1 po q 4 hours prn pain 11/06 HYDROCODONE-ACETAMINOPHEN 71728530415 No Longer Active Hector Love MD Active FLONASE ALLERGY RELIEF 50 MCG/ACT NASAL SUSP 2 spray each nostril daily prn allergies FLUTICASONE PROPIONATE 43326593046 Active Hector Love MD Active AUGMENTIN 875-125 MG TAB 1 po BID x 10 days AMOXICILLIN-POT CLAVULANATE 38455924061 No Longer Active Hector Love MD Active FLONASE ALLERGY RELIEF 50 MCG/ACT NASAL SUSP 2 sprays each nostril daily PRN allergies FLUTICASONE PROPIONATE 13044552771 No Longer Active Hector Love MD Active AMOXICILLIN 500 MG CAPS 1 cap by mouth three times a day AMOXICILLIN 35390291634 No Longer Active Jillina Frazell FUEL CELL BINDER Active KEFLEX 500 MG CAP 1 tab po tid CEPHALEXIN 18777202009 No Longer Active Jillina Frazell FUEL CELL BINDER Active AMOXICILLIN 500 MG TABS 2 tabs twice a day for 10 days AMOXICILLIN 40745534154 No Longer Active Jillina Fragretal FUEL CELL BINDER Active ZYRTEC ALLERGY 10 MG CAPS 1 po qd CETIRIZINE HCL 57499030322 Active Hector Love MD Active PROGRAF 1 MG CAPS 2 tabs po bid TACROLIMUS 44356633497 Active Hector Love MD Active ZOFRAN 4 MG TABS 1 po q6hr PRN Nausea ONDANSETRON HCL 33576205180 No Longer Active Ramona Diggs LPN Active AMOXICILLIN 500 MG CAPS 2 po BID x 10 days AMOXICILLIN 50022220781 No Longer Active Martha Montejo FUEL CELL BINDER Active AUGMENTIN 875-125 MG TAB 1 tab by mouth twice daily with food AMOXICILLIN-POT CLAVULANATE 32937593123 No Longer Active Hector Love MD Active LEVAQUIN 500 MG TABS 1 pill by mouth daily LEVOFLOXACIN 24924862914 No Longer Active Jen Crystal MD PhD Active LISINOPRIL 5 MG TABS 1.5 tab qd LISINOPRIL 31871241182 Active Jen Crystal MD PhD Active KETOCONAZOLE 2 % CREA apply twice a day to rash KETOCONAZOLE 65386614235 No Longer Active Hector Love MD Active AUGMENTIN 875-125 MG TAB 1 tab by mouth twice daily with food AMOXICILLIN-POT CLAVULANATE 21615072607 No Longer Active Иван Mooney MD Active LOTRISONE 0.05-1 % CREAM Apply twice a day to affected area 07/19 CLOTRIMAZOLE-BETAMETHASONE 77757329118 No Longer Active Иван Mooney MD Active FEXOFENADINE HCL 180 MG TABS 1 Daily FEXOFENADINE HCL 04260176219 No Longer Active Hector Love MD Active PROGRAF 0.5 MG CAPS Take one by mouth daily with 1 mg TACROLIMUS 80737385955 No Longer Active Hector Love MD Active AMOXICILLIN 500 MG CAPS 2 po BID x 10 days AMOXICILLIN 89618507809 No Longer Active Hector Love MD Active RAPAMUNE 1 MG TABS 3 tabs in the am SIROLIMUS 93878275284 No Longer Active Hector Love MD Active AMOXICILLIN 500 MG CAPS 2 po BID x 10 days AMOXICILLIN 38487303495 No Longer Active Hector Love MD Active LORTAB 5 5-500 MG TABS 1/2 to 1 tablet by mouth every 4 hours as needed for pain HYDROCODONE-ACETAMINOPHEN 07308283313 No Longer Active Hector Love MD Active FLUTICASONE PROPIONATE 50 MCG/ACT SUSP INSTILL 2 SPRAYS IN EACH NOSTRIL Q D FLUTICASONE PROPIONATE 73387424712 No Longer Active Hector Love MD Active PROGRAF 1 MG CAPS 1 po bid TACROLIMUS 84347386769 No Longer Active Hector Love MD Active AMOXICILLIN 875 MG TABS 1 tab by mouth twice daily AMOXICILLIN 18403714973 No Longer Active Hector Love MD Active AMOXICILLIN 500 MG CAPS 2 po BID x 10 days AMOXICILLIN 79266213938 No Longer Active Hector Love MD Active AUGMENTIN 875-125 MG TAB 1 tab by mouth twice daily with food AMOXICILLIN-POT CLAVULANATE 24545325918 No Longer Active Hector Love MD Active AZITHROMYCIN 250 MG TABS 2 po qd x 1 day, then 1 po qd x 4 days AZITHROMYCIN 74581419832 No Longer Active Hector Love MD Active CETIRIZINE HCL 10 MG TABS 1 PO Q D CETIRIZINE HCL 51666915134 No Longer Active Waleska Maroa Active PROGRAF 1 MG CAPS 1 po bid PROGRAF 1 MG CAPS 193383 TACROLIMUS Inactive FLUTICASONE PROPIONATE 50 MCG/ACT SUSP INSTILL 2 SPRAYS IN EACH NOSTRIL Q D FLUTICASONE PROPIONATE 50 MCG/ACT SUSP 7930188 FLUTICASONE PROPIONATE Inactive LORTAB 5 5-500 MG TABS 1/2 to 1 tablet by mouth every 4 hours as needed for pain LORTAB 5 5-500 MG TABS HYDROCODONE- ACETAMINOPHEN Inactive RAPAMUNE 1 MG TABS 3 tabs in the am RAPAMUNE 1 MG TABS 242431 SIROLIMUS Inactive PROGRAF 0.5 MG CAPS Take one by mouth daily with 1 mg PROGRAF 0.5 MG CAPS 232189 TACROLIMUS Inactive FEXOFENADINE HCL 180 MG TABS 1 Daily FEXOFENADINE HCL 180 MG TABS 471894 FEXOFENADINE HCL Inactive LOTRISONE 0.05-1 % CREAM Apply twice a day to affected area 07/19 LOTRISONE 0.05-1 % CREAM 022516 CLOTRIMAZOLE-BETAMETHASONE Inactive KETOCONAZOLE 2 % CREA apply twice a day to rash KETOCONAZOLE 2 % CREA 000130 KETOCONAZOLE Inactive AUGMENTIN 875-125 MG TAB 1 tab by mouth twice daily with food AUGMENTIN 875-125 MG TAB 560196 AMOXICILLIN-POT CLAVULANATE Inactive ZOFRAN 4 MG TABS 1 po q6hr PRN Nausea ZOFRAN 4 MG TABS 798736 ONDANSETRON HCL Inactive AMOXICILLIN 500 MG TABS 2 tabs twice a day for 10 days AMOXICILLIN 500 MG TABS 142277 AMOXICILLIN Inactive FLONASE ALLERGY RELIEF 50 MCG/ACT NASAL SUSP 2 sprays each nostril daily PRN allergies FLONASE ALLERGY RELIEF 50 MCG/ACT NASAL SUSP 8400485 FLUTICASONE PROPIONATE Inactive HYDROCODONE-ACETAMINOPHEN 5-325 MG TABS 1/2 to 1 po q 4 hours prn pain 11/06 HYDROCODONE-ACETAMINOPHEN 5-325 MG TABS 447150 HYDROCODONE- ACETAMINOPHEN Inactive AMOXICILLIN 500 MG CAPS 2 po BID x 10 days AMOXICILLIN 500 MG CAPS 759934 AMOXICILLIN Inactive AMOXICILLIN 875 MG TABS 1 tab by mouth twice daily AMOXICILLIN 875 MG TABS 053468 AMOXICILLIN Inactive AMOXICILLIN 500 MG CAPS 2 po BID x 10 days AMOXICILLIN 500 MG CAPS 202503 AMOXICILLIN Inactive AMOXICILLIN 500 MG CAPS 2 po BID x 10 days AMOXICILLIN 500 MG CAPS 486201 AMOXICILLIN Inactive AUGMENTIN 875-125 MG TAB 1 tab by mouth twice daily with food AUGMENTIN 875-125 MG TAB 184899 AMOXICILLIN-POT CLAVULANATE Inactive LEVAQUIN 500 MG TABS 1 pill by mouth daily LEVAQUIN 500 MG TABS 477419 LEVOFLOXACIN Inactive AMOXICILLIN 500 MG CAPS 2 po BID x 10 days AMOXICILLIN 500 MG CAPS 859205 AMOXICILLIN Inactive AMOXICILLIN 500 MG CAPS 1 cap by mouth three times a day AMOXICILLIN 500 MG CAPS 168545 AMOXICILLIN Inactive AUGMENTIN 875-125 MG TAB 1 po BID x 10 days AUGMENTIN 875-125 MG TAB 114153 AMOXICILLIN-POT CLAVULANATE Inactive PREDNISONE 20 MG TAB 2 po qd x 4 days PREDNISONE 20 MG TAB 781826 PREDNISONE Inactive Advance Directives Directive Description Start Date PERMISSION TO SHARE Immunizations Vaccine Administration Date Value Standard Description Seasonal influenza vaccine, injectable, preservative free, for > 3 years old ( Afluria, FluLaval, Fluzone, Fluvirin, Fluarix, Agriflu(>=18 yo)) Fluzone preservative free (>=3 yrs.) [FSK275] Influenza, seasonal, injectable, preservative free Adacel (Tetanus, reduced Diphtheria, and acellular Pertussis Immunization) Adacel [XXM885] tetanus toxoid, reduced diphtheria toxoid, and acellular [...] 0.76-1.46 Encounters Code Encounter Date Provider Facility CPT-14700 Level 4 Est. Patient 12:02:18 CDT Hector Love MD [facility] CPT-72587 Level 3 Est. Patient 16:14:45 CDT Hector Love MD [facility] CPT-89445 Level 3 Est. Patient 16:53:35 CDT Иван Mooney MD [facility] CPT-48194 Level 3 Est. Patient 15:57:13 CDT Martha Montejo APRN [facility] CPT-09937 Level 3 Est. Patient 14:30:47 [employer] Hector Love MD [facility] CPT-57125 Level 3 Est. Patient 14:50:45 CDT Hector Love MD [facility] CPT-43443 Level 3 Est. Patient 21:17:30 CDT Jen Crystal MD PhD [facility] CPT-20512 Level 3 Est. Patient 09:32:55 CDT Hector Love MD [facility] CPT-77249 Level 3 Est. Patient 15:11:08 [employer] Иван Mooney MD [facility] CPT-91833 Level 3 Est. Patient 16:38:53 [employer] Hector Love MD [facility] CPT-53032 Level 3 Est. Patient 15:46:05 CDT Hector Love MD [facility] CPT-14620 Level 3 Est. Patient 13:59:39 CDT Hector Love MD [facility] CPT-00081 Level 3 Est. Patient 14:44:46 [employer] Hector Love MD [facility] CPT-65827 Level 3 Est. Patient 17:12:27 CDT Hector Love MD [facility] CPT-16082 Level 3 Est. Patient 15:30:32 CDT Hector Love MD [facility] CPT-26969 Level 3 Est. Patient 14:24:52 CDT Иван Mooney MD [facility] CPT-49305 Level 3 Est. Patient 14:08:38 [employer] Hector Love MD [facility] Procedures Code Procedure Name Date Entry Date Standard Description CPT-000 Give Appropriate Flu Vaccine 16:22:23 [employer] CPT-81390 Free T4 - LAB USE ONLY 11:38:58 CDT CPT-78184 TSH - LAB USE ONLY 11:38:58 CDT CPT-21175 Venipuncture Draw Fee 11:38:58 CDT CPT-53880 Fluzone Quadrivalent Intramuscular Suspension 0.5 ML 16: 12:26 [employer] CPT-88153 Immunization Single Admin 16:12:26 [employer] CPT-J0561 Bicillin LA 1,200,000 u (PCN G Benzathine) 16:40:23 CDT CPT-32921 Abx/Therapy Injection 16:40:22 CDT CPT-J0561 Bicillin LA 1,200,000 u (PCN G Benzathine) 16:15:35 CDT CPT-29610 Immunization Single Admin 16:11:28 [employer] CPT-90262 Fluzone Quadrivalent Intramuscular Suspension 0.5 ML 16: 11:28 [employer] CPT-22780 Administration single or combination vaccine inc oral 13 :57:23 CDT CPT-24466 Menactra Intramuscular Injectable 13:57:23 CDT CPT-11441 First Vx Component - Ix admin via ID IM or jet inj without physician counseling 16:42:17 [employer] CPT-97757 Fluzone preservative free (>=3 yrs.) 16:42:17 [employer] 06/03 CPT-27552 Venipuncture Draw Fee 16:29:01 CDT CPT-13984 Chest 2V Frontal and Lat 16:23:56 CDT CPT-74085 Administration single or combination vaccine inc oral 13 :39:17 [employer] CPT-01189 Tdap 13:39:17 [employer]
--- OUTSIDE RECORDS SUMMARY | 2017-11-06 01:32 | XMS REPORT | Clinical Summary ---
Author Author Admin, LAMBERT Organization [facility] Address Unknown Phone Unavailable Allergies, Adverse Reactions, [...] Gastroenteritis, viral, acute 008.8 Resolved Martha Montejo [facility] RN Intestinal infection due to other organism, not elsewhere classified Bronchitis 490 Resolved Hector Love MD Bronchitis, not specified as acute or chronic Pharyngitis 462 Active Иван Mooney MD Acute pharyngitis Ingrown toenail 703.0 Active Manish Castrejon [facility] RN Ingrowing nail Ingrown toenail, right 703.0 Active [...] q 4 hours prn pain 11/06 HYDROCODONE-ACETAMINOPHEN 80337479660 Active Hector Love MD Active AUGMENTIN 875-125 MG TAB 1 po BID x 10 days AMOXICILLIN-POT CLAVULANATE 18066008645 Active Hector Love MD Active FLONASE ALLERGY RELIEF 50 MCG/ACT NASAL SUSP 2 sprays each nostril daily PRN allergies FLUTICASONE PROPIONATE 37263074463 No Longer Active Hector Love MD Active AMOXICILLIN 500 MG CAPS 1 cap by mouth three times a day AMOXICILLIN 78488352782 No Longer Active Jillina Frazell BEHAVIORAL HEALTH RN Active KEFLEX 500 MG CAP 1 tab po tid CEPHALEXIN 58456814296 No Longer Active Jillina Frazell BEH[facility]IORAL HE[facility] RN Active AMOXICILLIN 500 MG TABS 2 tabs twice a day for 10 days AMOXICILLIN 39998696806 No Longer Active Manish Castrejon APRN Active ZYRTEC ALLERGY 10 MG CAPS 1 po qd CETIRIZINE HCL 88637160526 Active Hector Love MD Active PROGRAF 1 MG CAPS 2 tabs po bid TACROLIMUS 31247822164 Active Hector Love MD Active ZOFRAN 4 MG TABS 1 po q6hr PRN Nausea ONDANSETRON HCL 26549643491 No Longer Active Ramona Diggs LPN Active AMOXICILLIN 500 MG CAPS 2 po BID x 10 days AMOXICILLIN 87153117002 No Longer Active Martha Montejo APRN Active AUGMENTIN 875-125 MG TAB 1 tab by mouth twice daily with food AMOXICILLIN-POT CLAVULANATE 29422386472 No Longer Active Hector Love MD Active LEVAQUIN 500 MG TABS 1 pill by mouth daily LEVOFLOXACIN 43957952470 No Longer Active Jen Crystal MD PhD Active LISINOPRIL 5 MG TABS 1.5 tab qd LISINOPRIL 45295396538 Active Jen Crystal MD PhD Active KETOCONAZOLE 2 % CREA apply twice a day to rash KETOCONAZOLE 24684269604 No Longer Active Hector Love MD Active AUGMENTIN 875-125 MG TAB 1 tab by mouth twice daily with food AMOXICILLIN-POT CLAVULANATE 09767425290 No Longer Active Иван Mooney MD Active LOTRISONE 0.05-1 % CREAM Apply twice a day to affected area 07/19 CLOTRIMAZOLE-BETAMETHASONE 51245730816 No Longer Active Иван Mooney MD Active FEXOFENADINE HCL 180 MG TABS 1 Daily FEXOFENADINE HCL 48913257574 No Longer Active Hector Love MD Active PROGRAF 0.5 MG CAPS Take one by mouth daily with 1 mg TACROLIMUS 29259729121 No Longer Active Hector Love MD Active AMOXICILLIN 500 MG CAPS 2 po BID x 10 days AMOXICILLIN 52246936891 No Longer Active Hector Love MD Active RAPAMUNE 1 MG TABS 3 tabs in the am SIROLIMUS 05212172348 No Longer Active Hector Love MD Active AMOXICILLIN 500 MG CAPS 2 po BID x 10 days AMOXICILLIN 17086212502 No Longer Active Hector Love MD Active LORTAB 5 5-500 MG TABS 1/2 to 1 tablet by mouth every 4 hours as needed for pain HYDROCODONE-ACETAMINOPHEN 85865984774 No Longer Active Hector Love MD Active FLUTICASONE PROPIONATE 50 MCG/ACT SUSP INSTILL 2 SPRAYS IN EACH NOSTRIL Q D FLUTICASONE PROPIONATE 44719720669 No Longer Active Hector Love MD Active PROGRAF 1 MG CAPS 1 po bid TACROLIMUS 67546575453 No Longer Active Hector Love MD Active AMOXICILLIN 875 MG TABS 1 tab by mouth twice daily AMOXICILLIN 00956536705 No Longer Active Hector Love MD Active AMOXICILLIN 500 MG CAPS 2 po BID x 10 days AMOXICILLIN 18122925672 No Longer Active Hector Love MD Active AUGMENTIN 875-125 MG TAB 1 tab by mouth twice daily with food AMOXICILLIN-POT CLAVULANATE 72294096512 No Longer Active Hector Love MD Active AZITHROMYCIN 250 MG TABS 2 po qd x 1 day, then 1 po qd x 4 days AZITHROMYCIN 62842216183 No Longer Active Hector Love MD Active CETIRIZINE HCL 10 MG TABS 1 PO Q D CETIRIZINE HCL 75357485111 No Longer Active Waleska [place] Active PROGRAF 1 MG CAPS 1 po bid PROGRAF 1 MG CAPS 195091 TACROLIMUS Inactive FLUTICASONE PROPIONATE 50 MCG/ACT SUSP INSTILL 2 SPRAYS IN EACH NOSTRIL Q D FLUTICASONE PROPIONATE 50 MCG/ACT SUSP 436244 FLUTICASONE PROPIONATE Inactive LORTAB 5 5-500 MG TABS 1/2 to 1 tablet by mouth every 4 hours as needed for pain LORTAB 5 5-500 MG TABS HYDROCODONE- ACETAMINOPHEN Inactive RAPAMUNE 1 MG TABS 3 tabs in the am RAPAMUNE 1 MG TABS 803876 SIROLIMUS Inactive PROGRAF 0.5 MG CAPS Take one by mouth daily with 1 mg PROGRAF 0.5 MG CAPS 120087 TACROLIMUS Inactive FEXOFENADINE HCL 180 MG TABS 1 Daily FEXOFENADINE HCL 180 MG TABS 231181 FEXOFENADINE HCL Inactive LOTRISONE 0.05-1 % CREAM Apply twice a day to affected area 07/19 LOTRISONE 0.05-1 % CREAM 620415 CLOTRIMAZOLE-BETAMETHASONE Inactive KETOCONAZOLE 2 % CREA apply twice a day to rash KETOCONAZOLE 2 % CREA 514236 KETOCONAZOLE Inactive AUGMENTIN 875-125 MG TAB 1 tab by mouth twice daily with food AUGMENTIN 875-125 MG TAB 915811 AMOXICILLIN-POT CLAVULANATE Inactive ZOFRAN 4 MG TABS 1 po q6hr PRN Nausea ZOFRAN 4 MG TABS 804536 ONDANSETRON HCL Inactive AMOXICILLIN 500 MG TABS 2 tabs twice a day for 10 days AMOXICILLIN 500 MG TABS 051804 AMOXICILLIN Inactive FLONASE ALLERGY RELIEF 50 MCG/ACT NASAL SUSP 2 sprays each nostril daily PRN allergies FLONASE ALLERGY RELIEF 50 MCG/ACT NASAL SUSP 442704 FLUTICASONE PROPIONATE Inactive AMOXICILLIN 500 MG CAPS 2 po BID x 10 days AMOXICILLIN 500 MG CAPS 989468 AMOXICILLIN Inactive AMOXICILLIN 875 MG TABS 1 tab by mouth twice daily AMOXICILLIN 875 MG TABS 422129 AMOXICILLIN Inactive AMOXICILLIN 500 MG CAPS 2 po BID x 10 days AMOXICILLIN 500 MG CAPS 360234 AMOXICILLIN Inactive AMOXICILLIN 500 MG CAPS 2 po BID x 10 days AMOXICILLIN 500 MG CAPS 783679 AMOXICILLIN Inactive AUGMENTIN 875-125 MG TAB 1 tab by mouth twice daily with food AUGMENTIN 875-125 MG TAB 331936 AMOXICILLIN-POT CLAVULANATE Inactive LEVAQUIN 500 MG TABS 1 pill by mouth daily LEVAQUIN 500 MG TABS 081730 LEVOFLOXACIN Inactive AMOXICILLIN 500 MG CAPS 2 po BID x 10 days AMOXICILLIN 500 MG CAPS 970077 AMOXICILLIN Inactive AMOXICILLIN 500 MG CAPS 1 cap by mouth three times a day AMOXICILLIN 500 MG CAPS 276219 AMOXICILLIN Inactive Advance Directives Directive Description Start Date PERMISSION TO SHARE Immunizations Vaccine Administration Date Value Standard Description Seasonal influenza vaccine, injectable, preservative free, for > 3 years old ( Afluria, FluLaval, Fluzone, Fluvirin, Fluarix, Agriflu(>=18 yo)) Fluzone preservative free (>=3 yrs.) [[id number]] Influenza, seasonal, injectable, preservative free Adacel (Tetanus, reduced Diphtheria, and acellular Pertussis Immunization) Adacel [YOC101] tetanus toxoid, reduced diphtheria toxoid, and acellular [...] Negative Encounters Code Encounter Date Provider Facility [facility]-[id number] Level 3 Est. Patient 16:14:45 CDT Hector Love MD [facility] CPT-24453 Level 3 Est. Patient 16:53:35 CDT Иван Mooney MD [facility]-47370 Level 3 Est. Patient 15:57:13 CDT Martha Montejo [facility] RN [facility] CPT-17542 Level 3 Est. Patient 14:30:47 SEARCH ENGINEER Hector Love MD [facility]-89852 Level 3 Est. Patient 14:50:45 CDT Hector Love MD [facility] CPT-26559 Level 3 Est. Patient 21:17:30 CDT Jen Crystal MD [facility]-99970 Level 3 Est. Patient 09:32:55 CDT Hector Love MD [facility] CPT-28833 Level 3 Est. Patient 15:11:08 SEARCH ENGINEER Иван Mooney MD [facility]-06171 Level 3 Est. Patient 16:38:53 SEARCH ENGINEER Hector Love MD [facility] CPT-69371 Level 3 Est. Patient 15:46:05 CDT Hector Love MD [facility] CPT-77196 Level 3 Est. Patient 13:59:39 CDT Hector Love MD [facility] CPT-05051 Level 3 Est. Patient 14:44:46 SEARCH ENGINEER Hector Love MD [facility]-05428 Level 3 Est. Patient 17:12:27 CDT Hector Love MD [facility] CPT-49070 Level 3 Est. Patient 15:30:32 CDT Hector Love MD [facility] CPT-48509 Level 3 Est. Patient 14:24:52 CDT Иван Mooney MD [facility] CPT-33404 Level 3 Est. Patient 14:08:38 SEARCH ENGINEER Hector Love MD [facility] Procedures Code Procedure Name Date Entry Date Standard Description CPT-90627 Fluzone Quadrivalent Intramuscular Suspension 0.5 ML 16: 12:26 SEARCH ENGINEER CPT-96469 Immunization Single Admin 16:12:26 SEARCH ENGINEER CPT-J0561 Bicillin LA 1,200,000 u (PCN G Benzathine) 16:40:23 CDT CPT-54661 Abx/Therapy Injection 16:40:22 CDT CPT-J0561 Bicillin LA 1,200,000 u (PCN G Benzathine) 16:15:35 CDT CPT-99009 Immunization Single Admin 16:11:28 SEARCH ENGINEER CPT-83829 Fluzone Quadrivalent Intramuscular Suspension 0.5 ML 16: 11:28 SEARCH ENGINEER CPT-58653 Administration single or combination vaccine inc oral 13 :57:23 CDT CPT-99367 Menactra Intramuscular Injectable 13:57:23 CDT CPT-25044 First Vx Component - Ix admin via ID IM or jet inj without physician counseling 16:42:17 SEARCH ENGINEER CPT-19730 Fluzone preservative free (>=3 yrs.) 16:42:17 SEARCH ENGINEER 06/03 CPT-67967 Venipuncture Draw Fee 16:29:01 CDT CPT-12331 Chest 2V Frontal and Lat 16:23:56 CDT CPT-42049 Administration single or combination vaccine inc oral 13 :39:17 SEARCH ENGINEER [facility]-25341 Tdap 13:39:17 SEARCH ENGINEER
--- OUTSIDE RECORDS SUMMARY | 2017-11-06 01:32 | XMS REPORT | Clinical Summary ---
Author Author Admin, QIE Organization [facility] Address Unknown Phone Unavailable Allergies, Adverse Reactions, [...] STREPTOCOCCUS PNEUMONIAE (PNEUMOCOCCUS) AND INFLUENZA ICD-V06.6 Inactive Hecotr Love MD Gastroenteritis, viral, acute ICD-008.8 Inactive Martha Montejo APRN Bronchitis ICD-490 Inactive Hector Love MD 2014 Pharyngitis ICD-462 Inactive Hector Love MD Ingrown toenail ICD-703.0 Inactive Hector Love MD Ingrown toenail, right ICD-703.0 Nils Love MD Medication List Medication Instructions Start Date Stop Date Generic Name NDC Status Provider Patient Instruction PREDNISONE 20 MG TAB 2 po qd x 4 days PREDNISONE [id number] Active Hector Love MD Active HYDROCODONE-ACETAMINOPHEN 5-325 MG TABS 1/2 to 1 po q 4 hours prn pain 11/06 HYDROCODONE-ACETAMINOPHEN 39426750978 No Longer Active Hector Love MD Active FLONASE ALLERGY RELIEF 50 MCG/ACT NASAL SUSP 2 spray each nostril daily prn allergies FLUTICASONE PROPIONATE 48885857279 Active Hector Love MD Active AUGMENTIN 875-125 MG TAB 1 po BID x 10 days AMOXICILLIN-POT CLAVULANATE 11402119888 No Longer Active Hector Love MD Active FLONASE ALLERGY RELIEF 50 MCG/ACT NASAL SUSP 2 sprays each nostril daily PRN allergies FLUTICASONE PROPIONATE 56949092958 No Longer Active Hector Love MD Active AMOXICILLIN 500 MG CAPS 1 cap by mouth three times a day AMOXICILLIN 05354481157 No Longer Active Jillina Frazell SALES COMMISSIONS ANALYST Active KEFLEX 500 MG CAP 1 tab po tid CEPHALEXIN 72927495742 No Longer Active Jillina Frazell SALES COMMISSIONS ANALYST Active AMOXICILLIN 500 MG TABS 2 tabs twice a day for 10 days AMOXICILLIN 70007960186 No Longer Active Jillina Fragretal SALES COMMISSIONS ANALYST Active ZYRTEC ALLERGY 10 MG CAPS 1 po qd CETIRIZINE HCL 50288812586 Active Hector Love MD Active PROGRAF 1 MG CAPS 2 tabs po bid TACROLIMUS 43691280885 Active Hector Love MD Active ZOFRAN 4 MG TABS 1 po q6hr PRN Nausea ONDANSETRON HCL 95111912104 No Longer Active Ramona Diggs LPN Active AMOXICILLIN 500 MG CAPS 2 po BID x 10 days AMOXICILLIN 97668463976 No Longer Active Martha Montejo SALES COMMISSIONS ANALYST Active AUGMENTIN 875-125 MG TAB 1 tab by mouth twice daily with food AMOXICILLIN-POT CLAVULANATE 67896678765 No Longer Active Hector Love MD Active LEVAQUIN 500 MG TABS 1 pill by mouth daily LEVOFLOXACIN 08075486280 No Longer Active Jen Crystal MD PhD Active LISINOPRIL 5 MG TABS 1.5 tab qd LISINOPRIL 43332201251 Active Jen Crystal MD PhD Active KETOCONAZOLE 2 % CREA apply twice a day to rash KETOCONAZOLE 81898682568 No Longer Active Hector Love MD Active AUGMENTIN 875-125 MG TAB 1 tab by mouth twice daily with food AMOXICILLIN-POT CLAVULANATE 66400398196 No Longer Active Иван Mooney MD Active LOTRISONE 0.05-1 % CREAM Apply twice a day to affected area 07/19 CLOTRIMAZOLE-BETAMETHASONE 31863086759 No Longer Active Иван Mooney MD Active FEXOFENADINE HCL 180 MG TABS 1 Daily FEXOFENADINE HCL 17071871097 No Longer Active Hector Love MD Active PROGRAF 0.5 MG CAPS Take one by mouth daily with 1 mg TACROLIMUS 02970390985 No Longer Active Hector Love MD Active AMOXICILLIN 500 MG CAPS 2 po BID x 10 days AMOXICILLIN 03391965023 No Longer Active Hector Love MD Active RAPAMUNE 1 MG TABS 3 tabs in the am SIROLIMUS 86702115603 No Longer Active Hector Love MD Active AMOXICILLIN 500 MG CAPS 2 po BID x 10 days AMOXICILLIN 29684193286 No Longer Active Hector Love MD Active LORTAB 5 5-500 MG TABS 1/2 to 1 tablet by mouth every 4 hours as needed for pain HYDROCODONE-ACETAMINOPHEN 58099609023 No Longer Active Hector Love MD Active FLUTICASONE PROPIONATE 50 MCG/ACT SUSP INSTILL 2 SPRAYS IN EACH NOSTRIL Q D FLUTICASONE PROPIONATE 20519185324 No Longer Active Hector Love MD Active PROGRAF 1 MG CAPS 1 po bid TACROLIMUS 27136158078 No Longer Active Hector Love MD Active AMOXICILLIN 875 MG TABS 1 tab by mouth twice daily AMOXICILLIN 46759466426 No Longer Active Hector Love MD Active AMOXICILLIN 500 MG CAPS 2 po BID x 10 days AMOXICILLIN 22934144386 No Longer Active Hector Love MD Active AUGMENTIN 875-125 MG TAB 1 tab by mouth twice daily with food AMOXICILLIN-POT CLAVULANATE 37557125336 No Longer Active Hector Love MD Active AZITHROMYCIN 250 MG TABS 2 po qd x 1 day, then 1 po qd x 4 days AZITHROMYCIN 24920859825 No Longer Active Hector Love MD Active CETIRIZINE HCL 10 MG TABS 1 PO Q D CETIRIZINE HCL 17444172550 No Longer Active [place] Active PROGRAF 1 MG CAPS 1 po bid PROGRAF 1 MG CAPS 627829 TACROLIMUS Inactive FLUTICASONE PROPIONATE 50 MCG/ACT SUSP INSTILL 2 SPRAYS IN EACH NOSTRIL Q D FLUTICASONE PROPIONATE 50 MCG/ACT SUSP 1139677 FLUTICASONE PROPIONATE Inactive LORTAB 5 5-500 MG TABS 1/2 to 1 tablet by mouth every 4 hours as needed for pain LORTAB 5 5-500 MG TABS HYDROCODONE- ACETAMINOPHEN Inactive RAPAMUNE 1 MG TABS 3 tabs in the am RAPAMUNE 1 MG TABS 509782 SIROLIMUS Inactive PROGRAF 0.5 MG CAPS Take one by mouth daily with 1 mg PROGRAF 0.5 MG CAPS 792828 TACROLIMUS Inactive FEXOFENADINE HCL 180 MG TABS 1 Daily FEXOFENADINE HCL 180 MG TABS 673843 FEXOFENADINE HCL Inactive LOTRISONE 0.05-1 % CREAM Apply twice a day to affected area 07/19 LOTRISONE 0.05-1 % CREAM 470558 CLOTRIMAZOLE-BETAMETHASONE Inactive KETOCONAZOLE 2 % CREA apply twice a day to rash KETOCONAZOLE 2 % CREA 161740 KETOCONAZOLE Inactive AUGMENTIN 875-125 MG TAB 1 tab by mouth twice daily with food AUGMENTIN 875-125 MG TAB 713527 AMOXICILLIN-POT CLAVULANATE Inactive ZOFRAN 4 MG TABS 1 po q6hr PRN Nausea ZOFRAN 4 MG TABS 391735 ONDANSETRON HCL Inactive AMOXICILLIN 500 MG TABS 2 tabs twice a day for 10 days AMOXICILLIN 500 MG TABS 165839 AMOXICILLIN Inactive FLONASE ALLERGY RELIEF 50 MCG/ACT NASAL SUSP 2 sprays each nostril daily PRN allergies FLONASE ALLERGY RELIEF 50 MCG/ACT NASAL SUSP 1391218 FLUTICASONE PROPIONATE Inactive HYDROCODONE-ACETAMINOPHEN 5-325 MG TABS 1/2 to 1 po q 4 hours prn pain 11/06 HYDROCODONE-ACETAMINOPHEN 5-325 MG TABS 910594 HYDROCODONE- ACETAMINOPHEN Inactive AMOXICILLIN 500 MG CAPS 2 po BID x 10 days AMOXICILLIN 500 MG CAPS 750493 AMOXICILLIN Inactive AMOXICILLIN 875 MG TABS 1 tab by mouth twice daily AMOXICILLIN 875 MG TABS 568228 AMOXICILLIN Inactive AMOXICILLIN 500 MG CAPS 2 po BID x 10 days AMOXICILLIN 500 MG CAPS 106959 AMOXICILLIN Inactive AMOXICILLIN 500 MG CAPS 2 po BID x 10 days AMOXICILLIN 500 MG CAPS 222645 AMOXICILLIN Inactive AUGMENTIN 875-125 MG TAB 1 tab by mouth twice daily with food AUGMENTIN 875-125 MG TAB 490869 AMOXICILLIN-POT CLAVULANATE Inactive LEVAQUIN 500 MG TABS 1 pill by mouth daily LEVAQUIN 500 MG TABS 554975 LEVOFLOXACIN Inactive AMOXICILLIN 500 MG CAPS 2 po BID x 10 days AMOXICILLIN 500 MG CAPS 422297 AMOXICILLIN Inactive AMOXICILLIN 500 MG CAPS 1 cap by mouth three times a day AMOXICILLIN 500 MG CAPS 751928 AMOXICILLIN Inactive AUGMENTIN 875-125 MG TAB 1 po BID x 10 days AUGMENTIN 875-125 MG TAB 802794 AMOXICILLIN-POT CLAVULANATE Inactive Advance Directives Directive Description Start Date PERMISSION TO SHARE Immunizations Vaccine Administration Date Value Standard Description Seasonal influenza vaccine, injectable, preservative free, for > 3 years old ( Afluria, FluLaval, Fluzone, Fluvirin, Fluarix, Agriflu(>=18 yo)) Fluzone preservative free (>=3 yrs.) [[id number]] Influenza, seasonal, injectable, preservative free Adacel (Tetanus, reduced Diphtheria, and acellular Pertussis Immunization) Adacel [[id number]] tetanus toxoid, reduced diphtheria toxoid, and acellular [...] Measured Encounters Code Encounter Date Provider Facility CPT-58970 Level 4 Est. Patient 12:02:18 CDT Hector Love MD [facility] CPT-08480 Level 3 Est. Patient 16:14:45 CDT Hector Love MD [facility] CPT-76314 Level 3 Est. Patient 16:53:35 CDT Иван Mooney MD [facility] CPT-97990 Level 3 Est. Patient 15:57:13 CDT Martha Montejo APRN [facility] CPT-70840 Level 3 Est. Patient 14:30:47 HVAC MANAGER Hector Love MD [facility] CPT-37422 Level 3 Est. Patient 14:50:45 CDT Hector Love MD [facility] CPT-14640 Level 3 Est. Patient 21:17:30 CDT Jen Crystal MD PhD [facility] CPT-73132 Level 3 Est. Patient 09:32:55 CDT Hector Love MD [facility] CPT-61068 Level 3 Est. Patient 15:11:08 HVAC MANAGER Иван Mooney MD [facility] CPT-11919 Level 3 Est. Patient 16:38:53 HVAC MANAGER Hector Love MD [facility] CPT-42486 Level 3 Est. Patient 15:46:05 CDT Hector Love MD [facility] CPT-31670 Level 3 Est. Patient 13:59:39 CDT Hector Love MD [facility] CPT-84573 Level 3 Est. Patient 14:44:46 HVAC MANAGER Hector Love MD [facility] CPT-32956 Level 3 Est. Patient 17:12:27 CDT Hector Love MD [facility] CPT-76503 Level 3 Est. Patient 15:30:32 CDT Hector Love MD [facility] CPT-53151 Level 3 Est. Patient 14:24:52 CDT Иван Mooney MD [facility] CPT-15889 Level 3 Est. Patient 14:08:38 HVAC MANAGER Hector Love MD [facility] Procedures Code Procedure Name Date Entry Date Standard Description CPT-72391 Fluzone Quadrivalent Intramuscular Suspension 0.5 ML 16: 12:26 HVAC MANAGER CPT-12165 Immunization Single Admin 16:12:26 HVAC MANAGER CPT-J0561 Bicillin LA 1,200,000 u (PCN G Benzathine) 16:40:23 CDT CPT-31921 Abx/Therapy Injection 16:40:22 CDT CPT-J0561 Bicillin LA 1,200,000 u (PCN G Benzathine) 16:15:35 CDT CPT-67074 Immunization Single Admin 16:11:28 HVAC MANAGER CPT-90569 Fluzone Quadrivalent Intramuscular Suspension 0.5 ML 16: 11:28 HVAC MANAGER CPT-23796 Administration single or combination vaccine inc oral 13 :57:23 CDT CPT-02063 Menactra Intramuscular Injectable 13:57:23 CDT CPT-13977 First Vx Component - Ix admin via ID IM or jet inj without physician counseling 16:42:17 HVAC MANAGER CPT-71702 Fluzone preservative free (>=3 yrs.) 16:42:17 HVAC MANAGER 06/03 CPT-46468 Venipuncture Draw Fee 16:29:01 CDT CPT-49689 Chest 2V Frontal and Lat 16:23:56 CDT CPT-41388 Administration single or combination vaccine inc oral 13 :39:17 HVAC MANAGER CPT-30686 Tdap 13:39:17 HVAC MANAGER
--- OUTSIDE RECORDS SUMMARY | 2017-11-06 01:33 | XMS REPORT | Clinical Summary ---
Author Author Admin, LAMBERT Organization [employer] Address Unknown Phone Unavailable Allergies, Adverse Reactions, [...] every 12 hours for 10 days AMOXICILLIN 40349599416 Active Иван Mooney MD Active VITAMIN C 500 MG CHEW TAB ASCORBIC ACID 26242693575 Active Иван Mooney MD Active PREDNISONE 20 MG TAB 2 po qd x 4 days PREDNISONE 47006193038 No Longer Active Hector Love MD Active HYDROCODONE-ACETAMINOPHEN 5-325 MG TABS 1/2 to 1 po q 4 hours prn pain 11/06 HYDROCODONE-ACETAMINOPHEN 46556640625 No Longer Active Hector Love MD Active FLONASE ALLERGY RELIEF 50 MCG/ACT NASAL SUSP 2 spray each nostril daily prn allergies FLUTICASONE PROPIONATE 12457162304 Active Hector Love MD Active AUGMENTIN 875-125 MG TAB 1 po BID x 10 days AMOXICILLIN-POT CLAVULANATE 80009253963 No Longer Active Hector Love MD Active FLONASE ALLERGY RELIEF 50 MCG/ACT NASAL SUSP 2 sprays each nostril daily PRN allergies FLUTICASONE PROPIONATE 21863713317 No Longer Active Hector Love MD Active AMOXICILLIN 500 MG CAPS 1 cap by mouth three times a day AMOXICILLIN 78001073664 No Longer Active Jillina Frazell RADHA Active KEFLEX 500 MG CAP 1 tab po tid CEPHALEXIN 55730703529 No Longer Active Jillina Frazell QUALITATIVE EXECUTIVE RESEARCHER Active AMOXICILLIN 500 MG TABS 2 tabs twice a day for 10 days AMOXICILLIN 34332447729 No Longer Active Jillina Frazell QUALITATIVE EXECUTIVE RESEARCHER Active ZYRTEC ALLERGY 10 MG CAPS 1 po qd CETIRIZINE HCL 90262946382 Active Hector Love MD Active PROGRAF 1 MG CAPS 2 tabs po bid TACROLIMUS 89046882375 Active Hector Love MD Active ZOFRAN 4 MG TABS 1 po q6hr PRN Nausea ONDANSETRON HCL 70847777277 No Longer Active Ramona Diggs LPN Active AMOXICILLIN 500 MG CAPS 2 po BID x 10 days AMOXICILLIN 83163400787 No Longer Active Martha Montejo APRN Active AUGMENTIN 875-125 MG TAB 1 tab by mouth twice daily with food AMOXICILLIN-POT CLAVULANATE 61916463406 No Longer Active Hector Love MD Active LEVAQUIN 500 MG TABS 1 pill by mouth daily LEVOFLOXACIN 77504291678 No Longer Active Jen Crystal MD PhD Active LISINOPRIL 5 MG TABS 1.5 tab qd LISINOPRIL 43100184263 Active Jen Crystal MD PhD Active KETOCONAZOLE 2 % CREA apply twice a day to rash KETOCONAZOLE 25493198914 No Longer Active Hector Love MD Active AUGMENTIN 875-125 MG TAB 1 tab by mouth twice daily with food AMOXICILLIN-POT CLAVULANATE 57287102966 No Longer Active Иван Mooney MD Active LOTRISONE 0.05-1 % CREAM Apply twice a day to affected area 07/19 CLOTRIMAZOLE-BETAMETHASONE 66199225142 No Longer Active Иван Mooney MD Active FEXOFENADINE HCL 180 MG TABS 1 Daily FEXOFENADINE HCL 17220410773 No Longer Active Hector Love MD Active PROGRAF 0.5 MG CAPS Take one by mouth daily with 1 mg TACROLIMUS 06396652884 No Longer Active Hector Love MD Active AMOXICILLIN 500 MG CAPS 2 po BID x 10 days AMOXICILLIN 47896018173 No Longer Active Hector Love MD Active RAPAMUNE 1 MG TABS 3 tabs in the am SIROLIMUS 72516619978 No Longer Active Hector Love MD Active AMOXICILLIN 500 MG CAPS 2 po BID x 10 days AMOXICILLIN 06999543950 No Longer Active Hector Love MD Active LORTAB 5 5-500 MG TABS 1/2 to 1 tablet by mouth every 4 hours as needed for pain HYDROCODONE-ACETAMINOPHEN 00164104955 No Longer Active Hector Love MD Active FLUTICASONE PROPIONATE 50 MCG/ACT SUSP INSTILL 2 SPRAYS IN EACH NOSTRIL Q D FLUTICASONE PROPIONATE 70015056905 No Longer Active Hector Love MD Active PROGRAF 1 MG CAPS 1 po bid TACROLIMUS 76909474245 No Longer Active Hector Love MD Active AMOXICILLIN 875 MG TABS 1 tab by mouth twice daily AMOXICILLIN 53899564605 No Longer Active Hector Love MD Active AMOXICILLIN 500 MG CAPS 2 po BID x 10 days AMOXICILLIN 68043281900 No Longer Active Hector Love MD Active AUGMENTIN 875-125 MG TAB 1 tab by mouth twice daily with food AMOXICILLIN-POT CLAVULANATE 52666301828 No Longer Active Hector Love MD Active AZITHROMYCIN 250 MG TABS 2 po qd x 1 day, then 1 po qd x 4 days AZITHROMYCIN 30941006778 No Longer Active Hector Love MD Active CETIRIZINE HCL 10 MG TABS 1 PO Q D CETIRIZINE HCL 72350992148 No Longer Active [place] Active PROGRAF 1 MG CAPS 1 po bid PROGRAF 1 MG CAPS 431851 TACROLIMUS Inactive FLUTICASONE PROPIONATE 50 MCG/ACT SUSP INSTILL 2 SPRAYS IN EACH NOSTRIL Q D FLUTICASONE PROPIONATE 50 MCG/ACT SUSP 8281783 FLUTICASONE PROPIONATE Inactive LORTAB 5 5-500 MG TABS 1/2 to 1 tablet by mouth every 4 hours as needed for pain LORTAB 5 5-500 MG TABS HYDROCODONE- ACETAMINOPHEN Inactive RAPAMUNE 1 MG TABS 3 tabs in the am RAPAMUNE 1 MG TABS 501804 SIROLIMUS Inactive PROGRAF 0.5 MG CAPS Take one by mouth daily with 1 mg PROGRAF 0.5 MG CAPS 117690 TACROLIMUS Inactive FEXOFENADINE HCL 180 MG TABS 1 Daily FEXOFENADINE HCL 180 MG TABS 638827 FEXOFENADINE HCL Inactive LOTRISONE 0.05-1 % CREAM Apply twice a day to affected area 07/19 LOTRISONE 0.05-1 % CREAM 426611 CLOTRIMAZOLE-BETAMETHASONE Inactive KETOCONAZOLE 2 % CREA apply twice a day to rash KETOCONAZOLE 2 % CREA 953983 KETOCONAZOLE Inactive AUGMENTIN 875-125 MG TAB 1 tab by mouth twice daily with food AUGMENTIN 875-125 MG TAB 382709 AMOXICILLIN-POT CLAVULANATE Inactive ZOFRAN 4 MG TABS 1 po q6hr PRN Nausea ZOFRAN 4 MG TABS 193638 ONDANSETRON HCL Inactive AMOXICILLIN 500 MG TABS 2 tabs twice a day for 10 days AMOXICILLIN 500 MG TABS 706010 AMOXICILLIN Inactive FLONASE ALLERGY RELIEF 50 MCG/ACT NASAL SUSP 2 sprays each nostril daily PRN allergies FLONASE ALLERGY RELIEF 50 MCG/ACT NASAL SUSP 2476309 FLUTICASONE PROPIONATE Inactive HYDROCODONE-ACETAMINOPHEN 5-325 MG TABS 1/2 to 1 po q 4 hours prn pain 11/06 HYDROCODONE-ACETAMINOPHEN 5-325 MG TABS 073260 HYDROCODONE- ACETAMINOPHEN Inactive AMOXICILLIN 500 MG CAPS 2 po BID x 10 days AMOXICILLIN 500 MG CAPS 777379 AMOXICILLIN Inactive AMOXICILLIN 875 MG TABS 1 tab by mouth twice daily AMOXICILLIN 875 MG TABS 461786 AMOXICILLIN Inactive AMOXICILLIN 500 MG CAPS 2 po BID x 10 days AMOXICILLIN 500 MG CAPS 507934 AMOXICILLIN Inactive AMOXICILLIN 500 MG CAPS 2 po BID x 10 days AMOXICILLIN 500 MG CAPS 461427 AMOXICILLIN Inactive AUGMENTIN 875-125 MG TAB 1 tab by mouth twice daily with food AUGMENTIN 875-125 MG TAB 746833 AMOXICILLIN-POT CLAVULANATE Inactive LEVAQUIN 500 MG TABS 1 pill by mouth daily LEVAQUIN 500 MG TABS 739614 LEVOFLOXACIN Inactive AMOXICILLIN 500 MG CAPS 2 po BID x 10 days AMOXICILLIN 500 MG CAPS 734795 AMOXICILLIN Inactive AMOXICILLIN 500 MG CAPS 1 cap by mouth three times a day AMOXICILLIN 500 MG CAPS 816742 AMOXICILLIN Inactive AUGMENTIN 875-125 MG TAB 1 po BID x 10 days AUGMENTIN 875-125 MG TAB 413492 AMOXICILLIN-POT CLAVULANATE Inactive PREDNISONE 20 MG TAB 2 po qd x 4 days PREDNISONE 20 MG TAB 148090 PREDNISONE Inactive Advance Directives Directive Description Start Date PERMISSION TO SHARE Immunizations Vaccine Administration Date Value Standard Description Seasonal influenza vaccine, injectable, preservative free, for > 3 years old ( Afluria, FluLaval, Fluzone, Fluvirin, Fluarix, Agriflu(>=18 yo)) Fluzone preservative free (>=3 yrs.) [[id number]] Influenza, seasonal, injectable, preservative free Adacel (Tetanus, reduced Diphtheria, and acellular Pertussis Immunization) Adacel [[id number]] tetanus toxoid, reduced diphtheria toxoid, and acellular [...] 0.76-1.46 Encounters Code Encounter Date Provider Facility CPT-51558 Level 3 Est. Patient 16:31:04 CDT Иван Mooney MD [facility] CPT-11882 Level 4 Est. Patient 12:02:18 CDT Hector Love MD [facility] CPT-90409 Level 3 Est. Patient 16:14:45 CDT Hector Love MD [facility] CPT-72511 Level 3 Est. Patient 16:53:35 CDT Иван Mooney MD [facility] CPT-34594 Level 3 Est. Patient 15:57:13 CDT Martha Escalantestephen GARCIA [facility] CPT-67352 Level 3 Est. Patient 14:30:47 TOP WADDY Hector Love MD [facility] CPT-32939 Level 3 Est. Patient 14:50:45 CDT Hector Love MD [facility] CPT-57536 Level 3 Est. Patient 21:17:30 CDT Jen Crystal MD PhD [facility] CPT-38795 Level 3 Est. Patient 09:32:55 CDT Hector Love MD [facility] CPT-42455 Level 3 Est. Patient 15:11:08 TOP WADDY Иван Mooney MD [facility] CPT-85968 Level 3 Est. Patient 16:38:53 TOP WADDY Hector Love MD [facility] CPT-26352 Level 3 Est. Patient 15:46:05 CDT Hector Love MD [facility] CPT-36717 Level 3 Est. Patient 13:59:39 CDT Hector Love MD [facility] CPT-71822 Level 3 Est. Patient 14:44:46 TOP WADDY Hector Love MD [facility] CPT-36129 Level 3 Est. Patient 17:12:27 CDT Hector Love MD [facility] CPT-74112 Level 3 Est. Patient 15:30:32 CDT Hector Love MD [facility] CPT-47687 Level 3 Est. Patient 14:24:52 CDT Иван Mooney MD [facility] CPT-95000 Level 3 Est. Patient 14:08:38 TOP WADDY Hector Love MD [facility] Procedures Code Procedure Name Date Entry Date Standard Description CPT-000 Give Appropriate Flu Vaccine 16:22:23 TOP WADDY CPT-14660 Free T4 - LAB USE ONLY 11:38:58 CDT CPT-61571 TSH - LAB USE ONLY 11:38:58 CDT CPT-37467 Venipuncture Draw Fee 11:38:58 CDT CPT-35371 Fluzone Quadrivalent Intramuscular Suspension 0.5 ML 16: 12:26 TOP WADDY CPT-73678 Immunization Single Admin 16:12:26 TOP WADDY CPT-J0561 Bicillin LA 1,200,000 u (PCN G Benzathine) 16:40:23 CDT CPT-23673 Abx/Therapy Injection 16:40:22 CDT CPT-J0561 Bicillin LA 1,200,000 u (PCN G Benzathine) 16:15:35 CDT CPT-44134 Immunization Single Admin 16:11:28 TOP WADDY CPT-88878 Fluzone Quadrivalent Intramuscular Suspension 0.5 ML 16: 11:28 TOP WADDY CPT-12954 Administration single or combination vaccine inc oral 13 :57:23 CDT CPT-18422 Menactra Intramuscular Injectable 13:57:23 CDT CPT-57166 First Vx Component - Ix admin via ID IM or jet inj without physician counseling 16:42:17 TOP WADDY CPT-91367 Fluzone preservative free (>=3 yrs.) 16:42:17 TOP WADDY 06/03 CPT-37227 Venipuncture Draw Fee 16:29:01 CDT CPT-62462 Chest 2V Frontal and Lat 16:23:56 CDT CPT-28601 Administration single or combination vaccine inc oral 13 :39:17 TOP WADDY CPT-03557 Tdap 13:39:17 TOP WADDY
--- OUTSIDE RECORDS SUMMARY | 2017-11-06 01:34 | XMS REPORT | Clinical Summary ---
Author Author Admin, LAMBERT Organization [facility] Address Unknown Phone Unavailable Allergies, Adverse [...] Bronchitis, not specified as acute or chronic FH DIABETES ICD-V18.0 Inactive Hector Love MD BRONCHITIS, ACUTE ICD-466.0 Inactive Hetcor Love MD KNEE SPRAIN, LEFT ICD-844.9 Inactive [...] 2 po BID x 10 days AMOXICILLIN 79622459996 No Longer Active Martha Montejo ENTERTAINER OR VARIETY ARTIST Active ZOFRAN 4 MG TABS 1 po q6hr PRN Nausea ONDANSETRON HCL 55592961925 Active Hector Love MD Active AUGMENTIN 875-125 MG TAB 1 tab by mouth twice daily with food AMOXICILLIN-POT CLAVULANATE 64050715847 No Longer Active Hector Love MD Active FLONASE 50 MCG/ACT SUSP 2 puffs in each nostril daily PRN Allergies FLUTICASONE PROPIONATE 41790657582 Active Hector Love MD Active LEVAQUIN 500 MG TABS 1 pill by mouth daily LEVOFLOXACIN 41173053288 No Longer Active Jen Crystal MD PhD Active LISINOPRIL 5 MG TABS 1.5 tab qd LISINOPRIL 54614152745 Active Jen Crystal MD PhD Active KETOCONAZOLE 2 % CREA apply twice a day to rash KETOCONAZOLE 22884740188 No Longer Active Hector Love MD Active AUGMENTIN 875-125 MG TAB 1 tab by mouth twice daily with food AMOXICILLIN-POT CLAVULANATE 91820820380 No Longer Active Иван Mooney MD Active LOTRISONE 0.05-1 % CREAM Apply twice a day to affected area 07/19 CLOTRIMAZOLE-BETAMETHASONE 65862924312 No Longer Active Иван Mooney MD Active PROGRAF 1 MG CAPS 4 tabs po bid TACROLIMUS 34225575741 Active Hector Love MD Active FEXOFENADINE HCL 180 MG TABS 1 Daily FEXOFENADINE HCL 63335927827 No Longer Active Hector Love MD Active PROGRAF 0.5 MG CAPS Take one by mouth daily with 1 mg TACROLIMUS 31172535210 No Longer Active Hector Love MD Active AMOXICILLIN 500 MG CAPS 2 po BID x 10 days AMOXICILLIN 73610118868 No Longer Active Hector Love MD Active RAPAMUNE 1 MG TABS 3 tabs in the am SIROLIMUS 82614132466 No Longer Active Hector Love MD Active AMOXICILLIN 500 MG CAPS 2 po BID x 10 days AMOXICILLIN 29801822974 No Longer Active Hector Love MD Active LORTAB 5 5-500 MG TABS 1/2 to 1 tablet by mouth every 4 hours as needed for pain HYDROCODONE-ACETAMINOPHEN 40724701861 No Longer Active Hector Love MD Active FLUTICASONE PROPIONATE 50 MCG/ACT SUSP INSTILL 2 SPRAYS IN EACH NOSTRIL Q D FLUTICASONE PROPIONATE 64605050432 No Longer Active Hector Love MD Active PROGRAF 1 MG CAPS 1 po bid TACROLIMUS 55267259649 No Longer Active Hector Love MD Active AMOXICILLIN 875 MG TABS 1 tab by mouth twice daily AMOXICILLIN 93368664822 No Longer Active Hector Love MD Active AMOXICILLIN 500 MG CAPS 2 po BID x 10 days AMOXICILLIN 04881769828 No Longer Active Hector Love MD Active AUGMENTIN 875-125 MG TAB 1 tab by mouth twice daily with food AMOXICILLIN-POT CLAVULANATE 33327179216 No Longer Active Hector Love MD Active AZITHROMYCIN 250 MG TABS 2 po qd x 1 day, then 1 po qd x 4 days AZITHROMYCIN 76516716356 No Longer Active Hector Love MD Active CETIRIZINE HCL 10 MG TABS 1 PO Q D CETIRIZINE HCL 53710273595 No Longer Active Waleska Levy Active PROGRAF 1 MG CAPS 1 po bid PROGRAF 1 MG CAPS 498797 TACROLIMUS Inactive FLUTICASONE PROPIONATE 50 MCG/ACT SUSP INSTILL 2 SPRAYS IN EACH NOSTRIL Q D FLUTICASONE PROPIONATE 50 MCG/ACT SUSP 236404 FLUTICASONE PROPIONATE Inactive LORTAB 5 5-500 MG TABS 1/2 to 1 tablet by mouth every 4 hours as needed for pain LORTAB 5 5-500 MG TABS HYDROCODONE- ACETAMINOPHEN Inactive RAPAMUNE 1 MG TABS 3 tabs in the am RAPAMUNE 1 MG TABS 723152 SIROLIMUS Inactive PROGRAF 0.5 MG CAPS Take one by mouth daily with 1 mg PROGRAF 0.5 MG CAPS 541999 TACROLIMUS Inactive FEXOFENADINE HCL 180 MG TABS 1 Daily FEXOFENADINE HCL 180 MG TABS 952899 FEXOFENADINE HCL Inactive LOTRISONE 0.05-1 % CREAM Apply twice a day to affected area 07/19 LOTRISONE 0.05-1 % CREAM 806582 CLOTRIMAZOLE-BETAMETHASONE Inactive KETOCONAZOLE 2 % CREA apply twice a day to rash KETOCONAZOLE 2 % CREA 040094 KETOCONAZOLE Inactive AUGMENTIN 875-125 MG TAB 1 tab by mouth twice daily with food AUGMENTIN 875-125 MG TAB 520269 AMOXICILLIN-POT CLAVULANATE Inactive AMOXICILLIN 500 MG CAPS 2 po BID x 10 days AMOXICILLIN 500 MG CAPS 520347 AMOXICILLIN Inactive AMOXICILLIN 875 MG TABS 1 tab by mouth twice daily AMOXICILLIN 875 MG TABS 312644 AMOXICILLIN Inactive AMOXICILLIN 500 MG CAPS 2 po BID x 10 days AMOXICILLIN 500 MG CAPS 581930 AMOXICILLIN Inactive AMOXICILLIN 500 MG CAPS 2 po BID x 10 days AMOXICILLIN 500 MG CAPS 543301 AMOXICILLIN Inactive AUGMENTIN 875-125 MG TAB 1 tab by mouth twice daily with food AUGMENTIN 875-125 MG TAB 764326 AMOXICILLIN-POT CLAVULANATE Inactive LEVAQUIN 500 MG TABS 1 pill by mouth daily LEVAQUIN 500 MG TABS 979090 LEVOFLOXACIN Inactive AMOXICILLIN 500 MG CAPS 2 po BID x 10 days AMOXICILLIN 500 MG CAPS 849240 AMOXICILLIN Inactive Advance Directives Directive Description Start Date PERMISSION TO SHARE Immunizations Vaccine Administration Date Value Standard Description Seasonal influenza vaccine, injectable, preservative free, for > 3 years old ( Afluria, FluLaval, Fluzone, Fluvirin, Fluarix, Agriflu(>=18 yo)) Fluzone preservative free (>=3 yrs.) [[id number]] Influenza, seasonal, injectable, preservative free Adacel (Tetanus, reduced Diphtheria, and acellular Pertussis Immunization) Adacel [[id number]] tetanus toxoid, reduced diphtheria toxoid, and acellular [...] U/L Chart Maintenance: Outside labs entered on [employer] - Hematology leukocyte count, blood 7.9 10*3/mm3 hemoglobin, blood 14.8 g/dL platelet count 223 10*3/mm3 leukocyte count, blood 8.6 10*3/mm3 hemoglobin, blood 15.0 g/dL platelet count 244 10*3/mm3 Lab Report: CBC W/DIFF, Comp. Metabolic Panel, Thyroid Stimulating Hormo ... - Chemistry protein, total urine random Negative mg/dL Negative sodium, serum 139 mmol/L 205-214 5726/07/18 potassium, serum 4.5 mmol/L 3.5-5.2 chloride, serum [...] Negative Encounters Code Encounter Date Provider Facility CPT-53314 Level 3 Est. Patient 15:57:13 CDT Martha Montejo APRN [facility] CPT-97721 Level 3 Est. Patient 14:30:47 TECHNICAL HEALTHCARE CONSULTANT Hector Love MD [facility] CPT-38061 Level 3 Est. Patient 14:50:45 CDT Hector Love MD [facility] CPT-41906 Level 3 Est. Patient 21:17:30 CDT Jen Crystal MD, PhD [facility] CPT-96220 Level 3 Est. Patient 09:32:55 CDT Hector Love MD [facility] CPT-56863 Level 3 Est. Patient 15:11:08 TECHNICAL HEALTHCARE CONSULTANT Иван Mooney MD [facility] CPT-10508 Level 3 Est. Patient 16:38:53 TECHNICAL HEALTHCARE CONSULTANT Hector Love MD [facility] CPT-07845 Level 3 Est. Patient 15:46:05 CDT Hector Love MD [facility] CPT-17649 Level 3 Est. Patient 13:59:39 CDT Hector Love MD [facility] CPT-32125 Level 3 Est. Patient 14:44:46 TECHNICAL HEALTHCARE CONSULTANT Hector Love MD [facility] CPT-20453 Level 3 Est. Patient 17:12:27 CDT Hector Love MD [facility] CPT-44591 Level 3 Est. Patient 15:30:32 CDT Hector Love MD [facility] CPT-02607 Level 3 Est. Patient 14:24:52 CDT Иван Mooney MD [facility] CPT-22944 Level 3 Est. Patient 14:08:38 TECHNICAL HEALTHCARE CONSULTANT Hector Love MD [facility] Procedures Code Procedure Name Date Entry Date Standard Description CPT-45793 Immunization Single Admin 16:11:28 TECHNICAL HEALTHCARE CONSULTANT CPT-07743 Fluzone Quadrivalent Intramuscular Suspension 0.5 ML 16: 11:28 TECHNICAL HEALTHCARE CONSULTANT CPT-53067 Administration single or combination vaccine inc oral 13 :57:23 CDT CPT-72449 Menactra Intramuscular Injectable 13:57:23 CDT CPT-18268 First Vx Component - Ix admin via ID IM or jet inj without physician counseling 16:42:17 TECHNICAL HEALTHCARE CONSULTANT CPT-51957 Fluzone preservative free (>=3 yrs.) 16:42:17 TECHNICAL HEALTHCARE CONSULTANT 06/03 CPT-59298 Venipuncture Draw Fee 16:29:01 CDT CPT-23989 Chest 2V Frontal and Lat 16:23:56 CDT CPT-34825 Administration single or combination vaccine inc oral 13 :39:17 TECHNICAL HEALTHCARE CONSULTANT CPT-99471 Tdap 13:39:17 TECHNICAL HEALTHCARE CONSULTANT
--- OUTSIDE RECORDS SUMMARY | 2017-11-06 01:34 | XMS REPORT | Clinical Summary ---
Author Author Admin, LAMBERT Organization [facility] Address Unknown Phone Unavailable Allergies, Adverse Reactions, [...] Love MD Cough COUGH 786.2 Resolved Hector Lvoe MD Cough COSTOCHRONDRITIS 733.6 Resolved Hector Love [...] MD Fever ICD-780.60 Inactive Hector Love MD NEED FOR PROPHYLACTIC VACCINATION WITH STREPTOCOCCUS PNEUMONIAE (PNEUMOCOCCUS) AND INFLUENZA ICD-V06.6 Inactive Hector Love MD Gastroenteritis, viral, acute ICD-008.8 Inactive Martha Montejo FLUID DESIGNER Bronchitis ICD-490 Inactive Hector Love MD 2014 Pharyngitis ICD-462 Inactive Hector Love MD Ingrown toenail ICD-703.0 Inactive Hector Love MD Ingrown toenail, right ICD-703.0 Inactive Hector Love MD Sinusitis, frontal, acute ICD-461.1 Inactive Hector Love MD Medication List Medication Instructions Start Date Stop Date Generic Name NDC Status Provider Patient Instruction PREDNISONE 20 MG TAB 2 po qd x 4 days PREDNISONE [id number] No Longer Active Hector Love MD Active HYDROCODONE-ACETAMINOPHEN 5-325 MG TABS 1/2 to 1 po q 4 hours prn pain 11/06 HYDROCODONE-ACETAMINOPHEN 66775454946 No Longer Active Hector Love MD Active FLONASE ALLERGY RELIEF 50 MCG/ACT NASAL SUSP 2 spray each nostril daily prn allergies FLUTICASONE PROPIONATE 43305811114 Active Hector Love MD Active AUGMENTIN 875-125 MG TAB 1 po BID x 10 days AMOXICILLIN-POT CLAVULANATE 48481821594 No Longer Active Hector Love MD Active FLONASE ALLERGY RELIEF 50 MCG/ACT NASAL SUSP 2 sprays each nostril daily PRN allergies FLUTICASONE PROPIONATE 33852432441 No Longer Active Hector Love MD Active AMOXICILLIN 500 MG CAPS 1 cap by mouth three times a day AMOXICILLIN 22361676113 No Longer Active Jillina Frazell FLUID DESIGNER Active KEFLEX 500 MG CAP 1 tab po tid CEPHALEXIN 68756664770 No Longer Active Jillina Frazell FLUID DESIGNER Active AMOXICILLIN 500 MG TABS 2 tabs twice a day for 10 days AMOXICILLIN 19438110841 No Longer Active Jillina Fragretal RADHA Active ZYRTEC ALLERGY 10 MG CAPS 1 po qd CETIRIZINE HCL 88712443499 Active Hector Love MD Active PROGRAF 1 MG CAPS 2 tabs po bid TACROLIMUS 61683138654 Active Hector Love MD Active ZOFRAN 4 MG TABS 1 po q6hr PRN Nausea ONDANSETRON HCL 47743580799 No Longer Active Ramona Diggs LPN Active AMOXICILLIN 500 MG CAPS 2 po BID x 10 days AMOXICILLIN 37732091904 No Longer Active Martha Montejo FLUID DESIGNER Active AUGMENTIN 875-125 MG TAB 1 tab by mouth twice daily with food AMOXICILLIN-POT CLAVULANATE 03027294222 No Longer Active Hector Love MD Active LEVAQUIN 500 MG TABS 1 pill by mouth daily LEVOFLOXACIN 91724337995 No Longer Active Jen Crystal MD PhD Active LISINOPRIL 5 MG TABS 1.5 tab qd LISINOPRIL 01512486332 Active Jen Crystal MD PhD Active KETOCONAZOLE 2 % CREA apply twice a day to rash KETOCONAZOLE 17840510607 No Longer Active Hector Love MD Active AUGMENTIN 875-125 MG TAB 1 tab by mouth twice daily with food AMOXICILLIN-POT CLAVULANATE 08621741725 No Longer Active Иван Mooney MD Active LOTRISONE 0.05-1 % CREAM Apply twice a day to affected area 07/19 CLOTRIMAZOLE-BETAMETHASONE 25340772063 No Longer Active Иван Mooney MD Active FEXOFENADINE HCL 180 MG TABS 1 Daily FEXOFENADINE HCL 27966560228 No Longer Active Hector Love MD Active PROGRAF 0.5 MG CAPS Take one by mouth daily with 1 mg TACROLIMUS 05623654364 No Longer Active Hector Love MD Active AMOXICILLIN 500 MG CAPS 2 po BID x 10 days AMOXICILLIN 73669697080 No Longer Active Hector Love MD Active RAPAMUNE 1 MG TABS 3 tabs in the am SIROLIMUS 10726663529 No Longer Active Hector Love MD Active AMOXICILLIN 500 MG CAPS 2 po BID x 10 days AMOXICILLIN 50978343714 No Longer Active Hector Love MD Active LORTAB 5 5-500 MG TABS 1/2 to 1 tablet by mouth every 4 hours as needed for pain HYDROCODONE-ACETAMINOPHEN 03233574099 No Longer Active Hector Love MD Active FLUTICASONE PROPIONATE 50 MCG/ACT SUSP INSTILL 2 SPRAYS IN EACH NOSTRIL Q D FLUTICASONE PROPIONATE 75852838018 No Longer Active Hector Love MD Active PROGRAF 1 MG CAPS 1 po bid TACROLIMUS 48670761812 No Longer Active Hector Love MD Active AMOXICILLIN 875 MG TABS 1 tab by mouth twice daily AMOXICILLIN 25899433461 No Longer Active Hector Love MD Active AMOXICILLIN 500 MG CAPS 2 po BID x 10 days AMOXICILLIN 87627923100 No Longer Active Hector Love MD Active AUGMENTIN 875-125 MG TAB 1 tab by mouth twice daily with food AMOXICILLIN-POT CLAVULANATE 05228166261 No Longer Active Hector Love MD Active AZITHROMYCIN 250 MG TABS 2 po qd x 1 day, then 1 po qd x 4 days AZITHROMYCIN 78816312524 No Longer Active Hector Love MD Active CETIRIZINE HCL 10 MG TABS 1 PO Q D CETIRIZINE HCL 98672170792 No Longer Active Waleska Randalia Active PROGRAF 1 MG CAPS 1 po bid PROGRAF 1 MG CAPS 075066 TACROLIMUS Inactive FLUTICASONE PROPIONATE 50 MCG/ACT SUSP INSTILL 2 SPRAYS IN EACH NOSTRIL Q D FLUTICASONE PROPIONATE 50 MCG/ACT SUSP 8527108 FLUTICASONE PROPIONATE Inactive LORTAB 5 5-500 MG TABS 1/2 to 1 tablet by mouth every 4 hours as needed for pain LORTAB 5 5-500 MG TABS HYDROCODONE- ACETAMINOPHEN Inactive RAPAMUNE 1 MG TABS 3 tabs in the am RAPAMUNE 1 MG TABS 029994 SIROLIMUS Inactive PROGRAF 0.5 MG CAPS Take one by mouth daily with 1 mg PROGRAF 0.5 MG CAPS 995373 TACROLIMUS Inactive FEXOFENADINE HCL 180 MG TABS 1 Daily FEXOFENADINE HCL 180 MG TABS 050217 FEXOFENADINE HCL Inactive LOTRISONE 0.05-1 % CREAM Apply twice a day to affected area 07/19 LOTRISONE 0.05-1 % CREAM 825908 CLOTRIMAZOLE-BETAMETHASONE Inactive KETOCONAZOLE 2 % CREA apply twice a day to rash KETOCONAZOLE 2 % CREA 099665 KETOCONAZOLE Inactive AUGMENTIN 875-125 MG TAB 1 tab by mouth twice daily with food AUGMENTIN 875-125 MG TAB 106113 AMOXICILLIN-POT CLAVULANATE Inactive ZOFRAN 4 MG TABS 1 po q6hr PRN Nausea ZOFRAN 4 MG TABS 515502 ONDANSETRON HCL Inactive AMOXICILLIN 500 MG TABS 2 tabs twice a day for 10 days AMOXICILLIN 500 MG TABS 936910 AMOXICILLIN Inactive FLONASE ALLERGY RELIEF 50 MCG/ACT NASAL SUSP 2 sprays each nostril daily PRN allergies FLONASE ALLERGY RELIEF 50 MCG/ACT NASAL SUSP 3963543 FLUTICASONE PROPIONATE Inactive HYDROCODONE-ACETAMINOPHEN 5-325 MG TABS 1/2 to 1 po q 4 hours prn pain 11/06 HYDROCODONE-ACETAMINOPHEN 5-325 MG TABS 253785 HYDROCODONE- ACETAMINOPHEN Inactive AMOXICILLIN 500 MG CAPS 2 po BID x 10 days AMOXICILLIN 500 MG CAPS 156330 AMOXICILLIN Inactive AMOXICILLIN 875 MG TABS 1 tab by mouth twice daily AMOXICILLIN 875 MG TABS 230337 AMOXICILLIN Inactive AMOXICILLIN 500 MG CAPS 2 po BID x 10 days AMOXICILLIN 500 MG CAPS 890487 AMOXICILLIN Inactive AMOXICILLIN 500 MG CAPS 2 po BID x 10 days AMOXICILLIN 500 MG CAPS 402766 AMOXICILLIN Inactive AUGMENTIN 875-125 MG TAB 1 tab by mouth twice daily with food AUGMENTIN 875-125 MG TAB 128570 AMOXICILLIN-POT CLAVULANATE Inactive LEVAQUIN 500 MG TABS 1 pill by mouth daily LEVAQUIN 500 MG TABS 707426 LEVOFLOXACIN Inactive AMOXICILLIN 500 MG CAPS 2 po BID x 10 days AMOXICILLIN 500 MG CAPS 875608 AMOXICILLIN Inactive AMOXICILLIN 500 MG CAPS 1 cap by mouth three times a day AMOXICILLIN 500 MG CAPS 870303 AMOXICILLIN Inactive AUGMENTIN 875-125 MG TAB 1 po BID x 10 days AUGMENTIN 875-125 MG TAB 580593 AMOXICILLIN-POT CLAVULANATE Inactive PREDNISONE 20 MG TAB 2 po qd x 4 days PREDNISONE 20 MG TAB 654358 PREDNISONE Inactive Advance Directives Directive Description Start Date PERMISSION TO SHARE Immunizations Vaccine Administration Date Value Standard Description Seasonal influenza vaccine, injectable, preservative free, for > 3 years old ( Afluria, FluLaval, Fluzone, Fluvirin, Fluarix, Agriflu(>=18 yo)) Fluzone preservative free (>=3 yrs.) [[id number]] Influenza, seasonal, injectable, preservative free Adacel (Tetanus, reduced Diphtheria, and acellular Pertussis Immunization) Adacel [[id number]] tetanus toxoid, reduced diphtheria toxoid, and acellular [...] 0.76-1.46 Encounters Code Encounter Date Provider Facility CPT-27938 Level 4 Est. Patient 12:02:18 CDT Hector Love MD [facility] CPT-63018 Level 3 Est. Patient 16:14:45 CDT Hector Love MD [facility] CPT-82271 Level 3 Est. Patient 16:53:35 CDT Иван Mooney MD [facility] CPT-75135 Level 3 Est. Patient 15:57:13 CDT Martha Montejo RADHA [facility] CPT-78670 Level 3 Est. Patient 14:30:47 SOCIAL SERVICES ASSISTANT Hector Love MD [facility] CPT-62550 Level 3 Est. Patient 14:50:45 CDT Hector Love MD [facility] CPT-15296 Level 3 Est. Patient 21:17:30 CDT Jen Crystal MD PhD [facility] CPT-43425 Level 3 Est. Patient 09:32:55 CDT Hector Love MD [facility] CPT-21994 Level 3 Est. Patient 15:11:08 SOCIAL SERVICES ASSISTANT Иван Mooney MD [facility] CPT-26467 Level 3 Est. Patient 16:38:53 SOCIAL SERVICES ASSISTANT Hector Love MD [facility] CPT-76280 Level 3 Est. Patient 15:46:05 CDT Hector Love MD [facility] CPT-39966 Level 3 Est. Patient 13:59:39 CDT Hector Love MD [facility] CPT-59069 Level 3 Est. Patient 14:44:46 SOCIAL SERVICES ASSISTANT Hector Love MD [facility] CPT-08057 Level 3 Est. Patient 17:12:27 CDT Hector Love MD [facility] CPT-80132 Level 3 Est. Patient 15:30:32 CDT Hector Love MD [facility] CPT-23890 Level 3 Est. Patient 14:24:52 CDT Иван Mooney MD [facility] CPT-13245 Level 3 Est. Patient 14:08:38 SOCIAL SERVICES ASSISTANT Hector Love MD [facility] Procedures Code Procedure Name Date Entry Date Standard Description CPT-60021 Free T4 - LAB USE ONLY 11:38:58 CDT CPT-69666 TSH - LAB USE ONLY 11:38:58 CDT CPT-20808 Venipuncture Draw Fee 11:38:58 CDT CPT-97282 Fluzone Quadrivalent Intramuscular Suspension 0.5 ML 16: 12:26 SOCIAL SERVICES ASSISTANT CPT-70390 Immunization Single Admin 16:12:26 SOCIAL SERVICES ASSISTANT CPT-J0561 Bicillin LA 1,200,000 u (PCN G Benzathine) 16:40:23 CDT CPT-31832 Abx/Therapy Injection 16:40:22 CDT CPT-J0561 Bicillin LA 1,200,000 u (PCN G Benzathine) 16:15:35 CDT CPT-77594 Immunization Single Admin 16:11:28 SOCIAL SERVICES ASSISTANT CPT-98059 Fluzone Quadrivalent Intramuscular Suspension 0.5 ML 16: 11:28 SOCIAL SERVICES ASSISTANT CPT-30798 Administration single or combination vaccine inc oral 13 :57:23 CDT CPT-75852 Menactra Intramuscular Injectable 13:57:23 CDT CPT-49226 First Vx Component - Ix admin via ID IM or jet inj without physician counseling 16:42:17 SOCIAL SERVICES ASSISTANT CPT-69407 Fluzone preservative free (>=3 yrs.) 16:42:17 SOCIAL SERVICES ASSISTANT 06/03 CPT-74320 Venipuncture Draw Fee 16:29:01 CDT CPT-55639 Chest 2V Frontal and Lat 16:23:56 CDT CPT-94461 Administration single or combination vaccine inc oral 13 :39:17 SOCIAL SERVICES ASSISTANT [facility]-47793 Tdap 13:39:17 SOCIAL SERVICES ASSISTANT
--- OUTSIDE RECORDS SUMMARY | 2017-11-06 01:35 | XMS REPORT | Clinical Summary ---
Author Author Admin, QIE Organization [facility] Address Unknown Phone Unavailable Allergies, Adverse Reactions, [...] care facility Fatigue 780.79 Active Manish Castrejon [facility] Other malaise and fatigue Body Mass Index 34.0-34.9 Adult Active Manish Castrejon [facility] Body Mass Index 34.0-34.9, adult HYPERTENSION ICD-401.9 [...] Gastroenteritis, viral, acute ICD-008.8 Inactive Martha Montejo [facility] Bronchitis ICD-490 Inactive Hector Love MD 2014 [...] MG ORAL CAPSULE 2 po BID TACROLIMUS 96827635545 Active Hector Love MD Active CETIRIZINE HCL 10 MG ORAL TABLET 1 po qd PRN Allergies CETIRIZINE HCL 09618257947 Active Hector Love MD Active LISINOPRIL 5 MG ORAL TABLET 1.5 po qd LISINOPRIL 00627414807 Vivek Love MD Active FLUTICASONE PROPIONATE 50 MCG/ACT NASAL SUSPENSION 2 sprays/nostril qd PRN Congestion/Allergies FLUTICASONE PROPIONATE 60665923990 Active Hector Love MD Active VITAMIN C 500 MG ORAL TABLET CHEWABLE ASCORBIC ACID 23064556679 No Longer Active Hector Love MD Active PREDNISONE 20 MG ORAL TABLET 1 tablet daily x 2 days PREDNISONE 67837307661 No Longer Active Manish Castrejon APRN Active AMOXICILLIN 500 MG ORAL TABLET Take two tablets by mouth every 12 hours for 10 days AMOXICILLIN 60807738905 No Longer Active Иван Mooney MD Active PREDNISONE 20 MG ORAL TABLET 2 po qd x 4 days PREDNISONE 36148423079 No Longer Active Hector Love MD Active HYDROCODONE-ACETAMINOPHEN 5-325 MG ORAL TABLET 1/2 to 1 po q 4 hours prn pain HYDROCODONE-ACETAMINOPHEN 98313458126 No Longer Active Hector Love MD Active AUGMENTIN 875-125 MG ORAL TABLET 1 po BID x 10 days AMOXICILLIN-POT CLAVULANATE 19632734193 No Longer Active Hector Love MD Active FLONASE ALLERGY RELIEF 50 MCG/ACT NASAL SUSPENSION 2 sprays each nostril daily PRN allergies FLUTICASONE PROPIONATE 04166376918 No Longer Active Hector Love MD Active AMOXICILLIN 500 MG ORAL CAPSULE 1 cap by mouth three times a day AMOXICILLIN 41537308746 No Longer Active Manish Castrejon APRN Active KEFLEX 500 MG ORAL CAPSULE 1 tab po tid CEPHALEXIN 59532204551 No Longer Active Jillina Fradebora GARCIA Active AMOXICILLIN 500 MG ORAL TABLET 2 tabs twice a day for 10 days AMOXICILLIN 09543934911 No Longer Active Jilldenise Fradebora GARCIA Active ZOFRAN 4 MG ORAL TABLET 1 po q6hr PRN Nausea ONDANSETRON HCL 81103029730 No Longer Active Ramona Diggs LPN Active AMOXICILLIN 500 MG ORAL CAPSULE 2 po BID x 10 days AMOXICILLIN 62149427736 No Longer Active Martha Montejo APRN Active AUGMENTIN 875-125 MG ORAL TABLET 1 tab by mouth twice daily with food AMOXICILLIN-POT CLAVULANATE 07659269780 No Longer Active Hector Love MD Active LEVAQUIN 500 MG ORAL TABLET 1 pill by mouth daily LEVOFLOXACIN 80188349796 No Longer Active Jen Crystal MD PhD Active KETOCONAZOLE 2 % EXTERNAL CREAM apply twice a day to rash KETOCONAZOLE 71507811798 No Longer Active Hector Love MD Active AUGMENTIN 875-125 MG ORAL TABLET 1 tab by mouth twice daily with food AMOXICILLIN-POT CLAVULANATE 04396783639 No Longer Active Иван Mooney MD Active LOTRISONE 1-0.05 % EXTERNAL CREAM Apply twice a day to affected area CLOTRIMAZOLE-BETAMETHASONE 17868505376 No Longer Active Иван Mooney MD Active FEXOFENADINE HCL 180 MG ORAL TABLET 1 Daily FEXOFENADINE HCL 97997217367 No Longer Active Hector Love MD Active PROGRAF 0.5 MG ORAL CAPSULE Take one by mouth daily with 1 mg TACROLIMUS 48357122355 No Longer Active Hector Love MD Active AMOXICILLIN 500 MG ORAL CAPSULE 2 po BID x 10 days AMOXICILLIN 63590225639 No Longer Active Hector Love MD Active RAPAMUNE 1 MG ORAL TABLET 3 tabs in the am SIROLIMUS 00849867626 No Longer Active Hector Love MD Active AMOXICILLIN 500 MG ORAL CAPSULE 2 po BID x 10 days AMOXICILLIN 15958923288 No Longer Active Hector Love MD Active LORTAB 5-500 MG ORAL TABLET 1/2 to 1 tablet by mouth every 4 hours as needed for pain HYDROCODONE-ACETAMINOPHEN 47435212952 No Longer Active Hector Love MD Active FLUTICASONE PROPIONATE 50 MCG/ACT NASAL SUSPENSION INSTILL 2 SPRAYS IN EACH NOSTRIL Q D FLUTICASONE PROPIONATE 15107172378 No Longer Active Hector Love MD Active PROGRAF 1 MG ORAL CAPSULE 1 po bid TACROLIMUS 25022614791 No Longer Active Hector Love MD Active AMOXICILLIN 875 MG ORAL TABLET 1 tab by mouth twice daily AMOXICILLIN 49003907086 No Longer Active Hector Love MD Active AMOXICILLIN 500 MG ORAL CAPSULE 2 po BID x 10 days AMOXICILLIN 67099261021 No Longer Active Hector Love MD Active AUGMENTIN 875-125 MG ORAL TABLET 1 tab by mouth twice daily with food AMOXICILLIN-POT CLAVULANATE 69985479154 No Longer Active Hector Love MD Active AZITHROMYCIN 250 MG ORAL TABLET 2 po qd x 1 day, then 1 po qd x 4 days 06/19 AZITHROMYCIN 32420434939 No Longer Active Hector Love MD Active CETIRIZINE HCL 10 MG ORAL TABLET 1 PO Q D CETIRIZINE HCL 63012272221 No Longer Active [place] Active PROGRAF 1 MG ORAL CAPSULE 1 po bid PROGRAF 1 MG ORAL CAPSULE 254289 TACROLIMUS Inactive FLUTICASONE PROPIONATE 50 MCG/ACT NASAL SUSPENSION INSTILL 2 SPRAYS IN EACH NOSTRIL Q D FLUTICASONE PROPIONATE 50 MCG/ACT NASAL SUSPENSION 8659316 FLUTICASONE PROPIONATE Inactive LORTAB 5-500 MG ORAL TABLET 1/2 to 1 tablet by mouth every 4 hours as needed for pain LORTAB 5-500 MG ORAL TABLET HYDROCODONE- ACETAMINOPHEN Inactive RAPAMUNE 1 MG ORAL TABLET 3 tabs in the am RAPAMUNE 1 MG ORAL TABLET 320434 SIROLIMUS Inactive PROGRAF 0.5 MG ORAL CAPSULE Take one by mouth daily with 1 mg PROGRAF 0.5 MG ORAL CAPSULE 057087 TACROLIMUS Inactive FEXOFENADINE HCL 180 MG ORAL TABLET 1 Daily FEXOFENADINE HCL 180 MG ORAL TABLET 869745 FEXOFENADINE HCL Inactive LOTRISONE 1-0.05 % EXTERNAL CREAM Apply twice a day to affected area LOTRISONE 1-0.05 % EXTERNAL CREAM 499913 CLOTRIMAZOLE- BETAMETHASONE Inactive KETOCONAZOLE 2 % EXTERNAL CREAM apply twice a day to rash KETOCONAZOLE 2 % EXTERNAL CREAM 490278 KETOCONAZOLE Inactive AUGMENTIN 875-125 MG ORAL TABLET 1 tab by mouth twice daily with food AUGMENTIN 875-125 MG ORAL TABLET 735831 AMOXICILLIN-POT CLAVULANATE Inactive ZOFRAN 4 MG ORAL TABLET 1 po q6hr PRN Nausea ZOFRAN 4 MG ORAL TABLET 322162 ONDANSETRON HCL Inactive AMOXICILLIN 500 MG ORAL TABLET 2 tabs twice a day for 10 days AMOXICILLIN 500 MG ORAL TABLET 772825 AMOXICILLIN Inactive FLONASE ALLERGY RELIEF 50 MCG/ACT NASAL SUSPENSION 2 sprays each nostril daily PRN allergies FLONASE ALLERGY RELIEF 50 MCG/ACT NASAL SUSPENSION 9493286 FLUTICASONE PROPIONATE Inactive HYDROCODONE-ACETAMINOPHEN 5-325 MG ORAL TABLET 1/2 to 1 po q 4 hours prn pain HYDROCODONE-ACETAMINOPHEN 5-325 MG ORAL TABLET 738995 HYDROCODONE-ACETAMINOPHEN Inactive PREDNISONE 20 MG ORAL TABLET 1 tablet daily x 2 days PREDNISONE 20 MG ORAL TABLET 431447 PREDNISONE Inactive VITAMIN C 500 MG ORAL TABLET CHEWABLE VITAMIN C 500 MG ORAL TABLET CHEWABLE ASCORBIC ACID Inactive AMOXICILLIN 500 MG ORAL CAPSULE 2 po BID x 10 days AMOXICILLIN 500 MG ORAL CAPSULE 265085 AMOXICILLIN Inactive AMOXICILLIN 875 MG ORAL TABLET 1 tab by mouth twice daily AMOXICILLIN 875 MG ORAL TABLET 516664 AMOXICILLIN Inactive AMOXICILLIN 500 MG ORAL CAPSULE 2 po BID x 10 days AMOXICILLIN 500 MG ORAL CAPSULE 852422 AMOXICILLIN Inactive AMOXICILLIN 500 MG ORAL CAPSULE 2 po BID x 10 days AMOXICILLIN 500 MG ORAL CAPSULE 797443 AMOXICILLIN Inactive AUGMENTIN 875-125 MG ORAL TABLET 1 tab by mouth twice daily with food AUGMENTIN 875-125 MG ORAL TABLET 603454 AMOXICILLIN-POT CLAVULANATE Inactive LEVAQUIN 500 MG ORAL TABLET 1 pill by mouth daily LEVAQUIN 500 MG ORAL TABLET 631832 LEVOFLOXACIN Inactive AMOXICILLIN 500 MG ORAL CAPSULE 2 po BID x 10 days AMOXICILLIN 500 MG ORAL CAPSULE 973941 AMOXICILLIN Inactive AMOXICILLIN 500 MG ORAL CAPSULE 1 cap by mouth three times a day AMOXICILLIN 500 MG ORAL CAPSULE 566813 AMOXICILLIN Inactive AUGMENTIN 875-125 MG ORAL TABLET 1 po BID x 10 days AUGMENTIN 875-125 MG ORAL TABLET 628574 AMOXICILLIN-POT CLAVULANATE Inactive PREDNISONE 20 MG ORAL TABLET 2 po qd x 4 days PREDNISONE 20 MG ORAL TABLET 646635 PREDNISONE Inactive AMOXICILLIN 500 MG ORAL TABLET Take two tablets by mouth every 12 hours for 10 days AMOXICILLIN 500 MG ORAL TABLET 703695 AMOXICILLIN Inactive Advance Directives Directive Description Start Date PERMISSION TO SHARE Immunizations Vaccine Administration Date Value Standard Description Seasonal influenza vaccine, injectable, preservative free, for > 3 years old ( Afluria, FluLaval, Fluzone, Fluvirin, Fluarix, Agriflu(>=18 yo)) Fluzone preservative free (>=3 yrs.) [ZBP187] Influenza, seasonal, injectable, preservative free Adacel (Tetanus, reduced Diphtheria, and acellular Pertussis Immunization) Adacel [JTX417] tetanus toxoid, reduced diphtheria toxoid, and acellular [...] Panel - Chemistry sodium, serum 137 mmol/L 491-499 1464/08/14 carbon dioxide, venous blood 29.7 mmol/L 21.0-32.0 potassium, serum 4.3 mmol/L 3.5-5.2 chloride, serum 99 mmol/L 98-107 blood glucose 123 mg/dL 65-110 urea nitrogen, blood 12 mg/dL 7-18 creatinine, serum 0.84 mg/dL 0.60-1.30 alanine aminotransferase (SGPT), serum 48 U/L 12-78 aspartate aminotransferase (SGOT), serum 26 U/L 15-37 calcium, serum 9.4 mg/dL 8.5-10.1 bilirubin, serum, total 1.60 mg/dL 0.00-1.00 cholesterol, serum 141 mg/dL 507-028 1143/08/14 triglyceride, serum, fasting 54 mg/dL 30-200 HDL [...] ... - Chemistry sodium, serum 137 mmol/L 416-103 1543/04/23 carbon dioxide, venous blood 28.4 mmol/L 21.0-32.0 [...] semiquantitative 6.0 5.0-8.5 Lab Report: VITAMIN D, 25-HYDROXY/[id number] - Chemistry vitamin D 25-hydroxy, serum 18 ng/mL 30-100 vitamin D 25-hydroxy, serum 44 ng/mL 30-100 Encounters Code Encounter Date Provider Facility CPT-25392 Level 3 Est. Patient 10:49:01 CDT Manish Castrejon [facility] CPT-98155 Level 3 Est. Patient 11:35:07 CDT Elijahzeyad Chasel [facility] CPT-50517 Level 3 Est. Patient 17:22:36 CDT Tracy Frey [facility] CPT-02663 Level 3 Est. Patient 16:06:03 CDT Elijahudaydenise Uriosteguigretal [facility] CPT-57429 Level 3 Est. Patient 09:57:24 CDT Elijahzeyad Moodygretal [facility] CPT-85115 Level 3 Est. Patient 16:31:04 CDT Иван Mooney MD [facility] CPT-62314 Level 4 Est. Patient 12:02:18 CDT Hector Love MD [facility] CPT-87055 Level 3 Est. Patient 16:14:45 CDT Hector Love MD [facility] CPT-73134 Level 3 Est. Patient 16:53:35 CDT Иван Mooney MD [facility] CPT-90816 Level 3 Est. Patient 15:57:13 CDT Martha Nikia [facility] CPT-48854 Level 3 Est. Patient 14:30:47 SHEAR HELPER Hector Love MD [facility] CPT-30352 Level 3 Est. Patient 14:50:45 CDT Hector Love MD [facility] CPT-80176 Level 3 Est. Patient 21:17:30 CDT Jen Crystal MD, PhD [facility] CPT-97828 Level 3 Est. Patient 09:32:55 CDT Hector Love MD [facility]-74474 Level 3 Est. Patient 15:11:08 SHEAR HELPER Иван Mooney MD [facility] CPT-03265 Level 3 Est. Patient 16:38:53 SHEAR HELPER Hector Love MD [facility] CPT-54824 Level 3 Est. Patient 15:46:05 CDT Hector Love MD [facility] CPT-99591 Level 3 Est. Patient 13:59:39 CDT Hector Love MD [facility] CPT-56456 Level 3 Est. Patient 14:44:46 SHEAR HELPER Hector Love MD [facility] CPT-90068 Level 3 Est. Patient 17:12:27 CDT Hector Love MD [facility] CPT-43181 Level 3 Est. Patient 15:30:32 CDT Hector Love MD [facility] CPT-03404 Level 3 Est. Patient 14:24:52 CDT Иван Mooney MD [facility] CPT-38376 Level 3 Est. Patient 14:08:38 SHEAR HELPER Hector Love MD [facility] Procedures Code Procedure Name Date Entry Date Standard Description CPT-62835 Chest, 2 views 11:04:30 CDT CPT-03643 Venipuncture Draw Fee 16:18:26 CDT CPT-01795 TB Skin Test 09:57:25 CDT CPT-000 Give Appropriate Flu Vaccine 16:22:23 SHEAR HELPER CPT-05052 Free T4 - LAB USE ONLY 11:38:58 CDT CPT-74161 TSH - LAB USE ONLY 11:38:58 CDT CPT-94496 Venipuncture Draw Fee 11:38:58 CDT CPT-43714 Fluzone Quadrivalent Intramuscular Suspension 0.5 ML 16: 12:26 SHEAR HELPER CPT-42738 Immunization Single Admin 16:12:26 SHEAR HELPER CPT-J0561 Bicillin LA 1,200,000 u (PCN G Benzathine) 16:40:23 CDT CPT-06022 Abx/Therapy Injection 16:40:22 CDT CPT-J0561 Bicillin LA 1,200,000 u (PCN G Benzathine) 16:15:35 CDT CPT-91725 Immunization Single Admin 16:11:28 SHEAR HELPER CPT-36806 Fluzone Quadrivalent Intramuscular Suspension 0.5 ML 16: 11:28 SHEAR HELPER CPT-37037 Administration single or combination vaccine inc oral 13 :57:23 CDT CPT-78393 Menactra Intramuscular Injectable 13:57:23 CDT CPT-32828 First Vx Component - Ix admin via ID IM or jet inj without physician counseling 16:42:17 SHEAR HELPER CPT-34636 Fluzone preservative free (>=3 yrs.) 16:42:17 SHEAR HELPER 06/03 CPT-45572 Venipuncture Draw Fee 16:29:01 CDT CPT-49238 Chest 2V Frontal and Lat 16:23:56 CDT CPT-83179 Administration single or combination vaccine inc oral 13 :39:17 SHEAR HELPER CPT-24811 Tdap 13:39:17 SHEAR HELPER
--- OUTSIDE RECORDS SUMMARY | 2017-11-06 01:36 | XMS REPORT ---
Author Author [facility] Medical Staff Organization [facility] Address [address], [place] [address] Phone [phone] Care Team Providers Care Cavalry Officer Name Role Phone HECTOR FRAIRE MD PP [phone] Summary purpose TRANSITION OF CARE AUTO GENERATION [...] diagnostic tests and/or laboratory data RESULTS Chemistry [id number]:20:00 Result Normal Range Units Sodium 139 134-145 [...] 10-20 Estimated GFR 116 >=60 mL/min/1.7 Hematology [id number]:20:00 Result Normal Range Units WBC H 12.3 4.8-10.8 103/uL RBC 4.9 4.7-6.1 106/uL HGB 14.6 13.0-18.0 g/dl HCT L 41.6 41.9-52.0 % MCV 84.7 80-94 FL MCH 29.7 27-31 pg MCHC 35.1 33-37 g/dl RDW 12.6 11.5-15.5 % PLT 230 130-400 103/uL MPV H 10.5 7.3-10.4 FL Neutro % 50.0 40-70 % Lymph % 34.9 20-40 % [place] % 8.1 0-10.0 % Eos % 6.3 0-7.0 % Baso % 0.5 0-2 % Neutro # 6.2 1.5-7.5 103/uL Lymph # H 4.3 0.9-4.0 103/uL [place] # H 1.0 0-0.8 103/uL Eos # H 0.8 0-0.6 103/uL Baso # 0.1 0-0.1 103/uL Reference Lab (Sendout) [id number]:38:00 Result Normal Range Units Influenza A & B, Rapid Negative Negative Radiology Results [id number]:07:00 Chest X-Ray - 2 View PACs Image [...] IMPRESSION: 1. Normal study. Kevin Levy DO /wi03/13/2015 07:39:00 / 03/13/2015 09:05:29 cc:Dr. Hector Fraire [...] IMPRESSION: 1. Normal study. Kevin Levy DO /wi03/13/2015 07:39:00 / 03/13/2015 09:05:29 cc:Dr. Hector Fraire This document has been electronically Signed by: KEVIN LEVY DO On: Mar 13 2015 11:07A Result Amended on 2015-03-13 at 11:07:10. Previous status was [place]. [id number]:20:00 Result Normal Range Units MPV H 10.5 [...]
--- OUTSIDE RECORDS SUMMARY | 2017-11-06 01:36 | XMS REPORT ---
Author Author [facility] Medical Staff Organization [facility] Address [address] [place], [place] [address] Phone [phone] Care Team Providers Care Park Recreation Manager Name Role Phone TRINI FRAIRE MD PP [phone] Summary purpose CCDA Sent to [facility] Chief Complaint and Reason for Visit No authorized Reason for Visit (Admitting Diagnosis) is available for this visit. Problem list No authorized problems tracked for continuity of care are available for this visit. Encounters No authorized problems tracked for encounter diagnoses are available for this visit. Medications No medications recorded for this patient visit Allergies, adverse reactions, alerts No allergy information is available for this patient. Immunizations No immunizations recorded for this patient visit Relevant diagnostic tests and/or laboratory data No authorized results are available for this patient visit History of procedures Procedure Code Code Type Description Date Performed Performing Physician [id number] CPT-4 CULTURE, BACTERIA, OTHER 12-29-2016 LUZ SHAH Functional status No functional or cognitive status [...]
--- OUTSIDE RECORDS SUMMARY | 2017-11-06 01:36 | XMS REPORT ---
Author Author [facility] [employer] [facility] Medical Staff Organization [facility] Address [address], [place] [address] Phone [phone] Summary purpose TRANSITION OF CARE AUTO GENERATION [...] Code Type Description Date Performed Performing Physician [id number] CPT-4 HETEROPHILE ANTIBODIES 01-17-2015 TRINI FRAIRE Functional [...]
--- OUTSIDE RECORDS SUMMARY | 2017-11-06 01:37 | XMS REPORT | Clinical Summary ---
Author Author Admin, [facility] Organization [employer] Address Unknown Phone Unavailable Allergies, Adverse Reactions, [...] Gastroenteritis, viral, acute 008.8 Resolved Martha Montejo FIRE SAFETY MANAGER Intestinal infection due to other organism, [...] employment physical examination V70.0 Active Manish Castrejon FIRE SAFETY MANAGER Routine general medical examination at a health care facility Exposure to mononucleosis V01.79 Active Manish Castrejon FIRE SAFETY MANAGER Contact with or exposure to other viral diseases Stress at work V62.1 Active Manish Castrejon FIRE SAFETY MANAGER Adverse effects of work environment FH DIABETES [...] 1 tablet daily x 2 days PREDNISONE 55908771986 No Longer Active Jillina Frazell FIRE SAFETY MANAGER Active AMOXICILLIN 500 MG TABS Take two tablets by mouth every 12 hours for 10 days AMOXICILLIN 52058929895 No Longer Active Иван Mooney MD Active VITAMIN C 500 MG CHEW TAB ASCORBIC ACID 55317873125 Active Иван Mooney MD Active PREDNISONE 20 MG TAB 2 po qd x 4 days PREDNISONE 81808031963 No Longer Active Hector Love MD Active HYDROCODONE-ACETAMINOPHEN 5-325 MG TABS 1/2 to 1 po q 4 hours prn pain 11/06 HYDROCODONE-ACETAMINOPHEN 44990876980 No Longer Active Hector Love MD Active FLONASE ALLERGY RELIEF 50 MCG/ACT NASAL SUSP 2 spray each nostril daily prn allergies FLUTICASONE PROPIONATE 08846483859 Active Hector Love MD Active AUGMENTIN 875-125 MG TAB 1 po BID x 10 days AMOXICILLIN-POT CLAVULANATE 79049159340 No Longer Active Hector Love MD Active FLONASE ALLERGY RELIEF 50 MCG/ACT NASAL SUSP 2 sprays each nostril daily PRN allergies FLUTICASONE PROPIONATE 30354708264 No Longer Active Hector Love MD Active AMOXICILLIN 500 MG CAPS 1 cap by mouth three times a day AMOXICILLIN 47605104183 No Longer Active Jillina Frazell FIRE SAFETY MANAGER Active KEFLEX 500 MG CAP 1 tab po tid CEPHALEXIN 80628360971 No Longer Active Jillina Frazell FIRE SAFETY MANAGER Active AMOXICILLIN 500 MG TABS 2 tabs twice a day for 10 days AMOXICILLIN 97847132859 No Longer Active Jillina Frazell FIRE SAFETY MANAGER Active ZYRTEC ALLERGY 10 MG CAPS 1 po qd CETIRIZINE HCL 98975547228 Active Hector Love MD Active PROGRAF 1 MG CAPS 2 tabs po bid TACROLIMUS 17027118950 Active Hector Love MD Active ZOFRAN 4 MG TABS 1 po q6hr PRN Nausea ONDANSETRON HCL 28173630953 No Longer Active Ramona Diggs LPN Active AMOXICILLIN 500 MG CAPS 2 po BID x 10 days AMOXICILLIN 50827723724 No Longer Active Martha Ramírezhenrique FIRE SAFETY MANAGER Active AUGMENTIN 875-125 MG TAB 1 tab by mouth twice daily with food AMOXICILLIN-POT CLAVULANATE 85011835340 No Longer Active Hector Love MD Active LEVAQUIN 500 MG TABS 1 pill by mouth daily LEVOFLOXACIN 28963788759 No Longer Active Jen Crystal MD PhD Active LISINOPRIL 5 MG TABS 1.5 tab qd LISINOPRIL 51542333225 Active Jen Crystal MD PhD Active KETOCONAZOLE 2 % CREA apply twice a day to rash KETOCONAZOLE 64896665835 No Longer Active Hector Love MD Active AUGMENTIN 875-125 MG TAB 1 tab by mouth twice daily with food AMOXICILLIN-POT CLAVULANATE 33841218219 No Longer Active Иван Mooney MD Active LOTRISONE 0.05-1 % CREAM Apply twice a day to affected area 07/19 CLOTRIMAZOLE-BETAMETHASONE 01518772910 No Longer Active Иван Mooney MD Active FEXOFENADINE HCL 180 MG TABS 1 Daily FEXOFENADINE HCL 92343758413 No Longer Active Hector Love MD Active PROGRAF 0.5 MG CAPS Take one by mouth daily with 1 mg TACROLIMUS 91926382032 No Longer Active Hector Love MD Active AMOXICILLIN 500 MG CAPS 2 po BID x 10 days AMOXICILLIN 99845789939 No Longer Active Hector Love MD Active RAPAMUNE 1 MG TABS 3 tabs in the am SIROLIMUS 28050105176 No Longer Active Hector Love MD Active AMOXICILLIN 500 MG CAPS 2 po BID x 10 days AMOXICILLIN 65820331975 No Longer Active Hector Love MD Active LORTAB 5 5-500 MG TABS 1/2 to 1 tablet by mouth every 4 hours as needed for pain HYDROCODONE-ACETAMINOPHEN 99873139548 No Longer Active Hector Love MD Active FLUTICASONE PROPIONATE 50 MCG/ACT SUSP INSTILL 2 SPRAYS IN EACH NOSTRIL Q D FLUTICASONE PROPIONATE 33587104900 No Longer Active Hector Love MD Active PROGRAF 1 MG CAPS 1 po bid TACROLIMUS 68577443239 No Longer Active Hector Love MD Active AMOXICILLIN 875 MG TABS 1 tab by mouth twice daily AMOXICILLIN 65589175145 No Longer Active Hector Love MD Active AMOXICILLIN 500 MG CAPS 2 po BID x 10 days AMOXICILLIN 97355466173 No Longer Active Hector Love MD Active AUGMENTIN 875-125 MG TAB 1 tab by mouth twice daily with food AMOXICILLIN-POT CLAVULANATE 59550782818 No Longer Active Hector Love MD Active AZITHROMYCIN 250 MG TABS 2 po qd x 1 day, then 1 po qd x 4 days AZITHROMYCIN 30663528626 No Longer Active Hector Love MD Active CETIRIZINE HCL 10 MG TABS 1 PO Q D CETIRIZINE HCL 41240019135 No Longer Active [place] Active PROGRAF 1 MG CAPS 1 po bid PROGRAF 1 MG CAPS 566389 TACROLIMUS Inactive FLUTICASONE PROPIONATE 50 MCG/ACT SUSP INSTILL 2 SPRAYS IN EACH NOSTRIL Q D FLUTICASONE PROPIONATE 50 MCG/ACT SUSP 7143273 FLUTICASONE PROPIONATE Inactive LORTAB 5 5-500 MG TABS 1/2 to 1 tablet by mouth every 4 hours as needed for pain LORTAB 5 5-500 MG TABS HYDROCODONE- ACETAMINOPHEN Inactive RAPAMUNE 1 MG TABS 3 tabs in the am RAPAMUNE 1 MG TABS 419234 SIROLIMUS Inactive PROGRAF 0.5 MG CAPS Take one by mouth daily with 1 mg PROGRAF 0.5 MG CAPS 499652 TACROLIMUS Inactive FEXOFENADINE HCL 180 MG TABS 1 Daily FEXOFENADINE HCL 180 MG TABS 413330 FEXOFENADINE HCL Inactive LOTRISONE 0.05-1 % CREAM Apply twice a day to affected area 07/19 LOTRISONE 0.05-1 % CREAM 194994 CLOTRIMAZOLE-BETAMETHASONE Inactive KETOCONAZOLE 2 % CREA apply twice a day to rash KETOCONAZOLE 2 % CREA 157276 KETOCONAZOLE Inactive AUGMENTIN 875-125 MG TAB 1 tab by mouth twice daily with food AUGMENTIN 875-125 MG TAB 391298 AMOXICILLIN-POT CLAVULANATE Inactive ZOFRAN 4 MG TABS 1 po q6hr PRN Nausea ZOFRAN 4 MG TABS 788319 ONDANSETRON HCL Inactive AMOXICILLIN 500 MG TABS 2 tabs twice a day for 10 days AMOXICILLIN 500 MG TABS 607682 AMOXICILLIN Inactive FLONASE ALLERGY RELIEF 50 MCG/ACT NASAL SUSP 2 sprays each nostril daily PRN allergies FLONASE ALLERGY RELIEF 50 MCG/ACT NASAL SUSP 4360803 FLUTICASONE PROPIONATE Inactive HYDROCODONE-ACETAMINOPHEN 5-325 MG TABS 1/2 to 1 po q 4 hours prn pain 11/06 HYDROCODONE-ACETAMINOPHEN 5-325 MG TABS 506358 HYDROCODONE- ACETAMINOPHEN Inactive PREDNISONE 20 MG TAB 1 tablet daily x 2 days PREDNISONE 20 MG TAB 355756 PREDNISONE Inactive AMOXICILLIN 500 MG CAPS 2 po BID x 10 days AMOXICILLIN 500 MG CAPS 640458 AMOXICILLIN Inactive AMOXICILLIN 875 MG TABS 1 tab by mouth twice daily AMOXICILLIN 875 MG TABS 773842 AMOXICILLIN Inactive AMOXICILLIN 500 MG CAPS 2 po BID x 10 days AMOXICILLIN 500 MG CAPS 499084 AMOXICILLIN Inactive AMOXICILLIN 500 MG CAPS 2 po BID x 10 days AMOXICILLIN 500 MG CAPS 557782 AMOXICILLIN Inactive AUGMENTIN 875-125 MG TAB 1 tab by mouth twice daily with food AUGMENTIN 875-125 MG TAB 554573 AMOXICILLIN-POT CLAVULANATE Inactive LEVAQUIN 500 MG TABS 1 pill by mouth daily LEVAQUIN 500 MG TABS 716100 LEVOFLOXACIN Inactive AMOXICILLIN 500 MG CAPS 2 po BID x 10 days AMOXICILLIN 500 MG CAPS 701202 AMOXICILLIN Inactive AMOXICILLIN 500 MG CAPS 1 cap by mouth three times a day AMOXICILLIN 500 MG CAPS 694986 AMOXICILLIN Inactive AUGMENTIN 875-125 MG TAB 1 po BID x 10 days AUGMENTIN 875-125 MG TAB 070945 AMOXICILLIN-POT CLAVULANATE Inactive PREDNISONE 20 MG TAB 2 po qd x 4 days PREDNISONE 20 MG TAB 277207 PREDNISONE Inactive AMOXICILLIN 500 MG TABS Take two tablets by mouth every 12 hours for 10 days AMOXICILLIN 500 MG TABS 919326 AMOXICILLIN Inactive Advance Directives Directive Description Start Date PERMISSION TO SHARE Immunizations Vaccine Administration Date Value Standard Description Seasonal influenza vaccine, injectable, preservative free, for > 3 years old ( Afluria, FluLaval, Fluzone, Fluvirin, Fluarix, Agriflu(>=18 yo)) Fluzone preservative free (>=3 yrs.) [CXD884] Influenza, seasonal, injectable, preservative free Adacel (Tetanus, reduced Diphtheria, and acellular Pertussis Immunization) Adacel [KXS105] tetanus toxoid, reduced diphtheria toxoid, and acellular [...] Panel - Chemistry sodium, serum 137 mmol/L 176-826 2690/08/14 carbon dioxide, venous blood 29.7 mmol/L 21.0-32.0 potassium, serum 4.3 mmol/L 3.5-5.2 chloride, serum 99 mmol/L 98-107 blood glucose 123 mg/dL 65-110 urea nitrogen, blood 12 mg/dL 7-18 creatinine, serum 0.84 mg/dL 0.60-1.30 alanine aminotransferase (SGPT), serum 48 U/L 12-78 aspartate aminotransferase (SGOT), serum 26 U/L 15-37 calcium, serum 9.4 mg/dL 8.5-10.1 bilirubin, serum, total 1.60 mg/dL 0.00-1.00 cholesterol, serum 141 mg/dL 685-290 2792/08/14 triglyceride, serum, fasting 54 mg/dL 30-200 HDL [...] semiquantitative 6.0 5.0-8.5 Lab Report: VITAMIN D, 25-HYDROXY/[id number] - Chemistry vitamin D 25-hydroxy, serum 18 ng/mL 30-100 Encounters Code Encounter Date Provider Facility CPT-92269 Level 3 Est. Patient 11:35:07 CDT Manish Castrejon [facility] CPT-41081 Level 3 Est. Patient 17:22:36 CDT Tracy Frey [facility] CPT-80504 Level 3 Est. Patient 16:06:03 CDT Manish Castrejon [facility] CPT-31353 Level 3 Est. Patient 09:57:24 CDT Manish Castrejon [facility] CPT-35134 Level 3 Est. Patient 16:31:04 CDT Иван Mooney MD [facility] CPT-75201 Level 4 Est. Patient 12:02:18 CDT Hector Love MD [facility] CPT-03574 Level 3 Est. Patient 16:14:45 CDT Hector Love MD [facility] CPT-81941 Level 3 Est. Patient 16:53:35 CDT Иван Mooney MD [facility] CPT-78085 Level 3 Est. Patient 15:57:13 CDT Martha Montejo RADHA [facility] CPT-21120 Level 3 Est. Patient 14:30:47 APPLICATIONS SUPPORT ENGINEER Hector Love MD [facility] CPT-47391 Level 3 Est. Patient 14:50:45 CDT Hector Love MD [facility] CPT-04025 Level 3 Est. Patient 21:17:30 CDT Jen Crystal MD PhD [facility] CPT-68317 Level 3 Est. Patient 09:32:55 CDT Hector Love MD [facility] CPT-36860 Level 3 Est. Patient 15:11:08 APPLICATIONS SUPPORT ENGINEER Иван Mooney MD [facility] CPT-11519 Level 3 Est. Patient 16:38:53 APPLICATIONS SUPPORT ENGINEER Hector Love MD [facility] CPT-61699 Level 3 Est. Patient 15:46:05 CDT Hector Love MD [facility] CPT-40959 Level 3 Est. Patient 13:59:39 CDT Hector Love MD [facility] CPT-08235 Level 3 Est. Patient 14:44:46 APPLICATIONS SUPPORT ENGINEER Hector Love MD [facility] CPT-00197 Level 3 Est. Patient 17:12:27 CDT Hector Love MD [facility] CPT-52635 Level 3 Est. Patient 15:30:32 CDT Hector Love MD [facility] CPT-57774 Level 3 Est. Patient 14:24:52 CDT Иван Mooney MD [facility] CPT-32346 Level 3 Est. Patient 14:08:38 APPLICATIONS SUPPORT ENGINEER Hector Love MD [facility] Procedures Code Procedure Name Date Entry Date Standard Description CPT-30210 Venipuncture Draw Fee 16:18:26 CDT CPT-55694 TB Skin Test 09:57:25 CDT CPT-000 Give Appropriate Flu Vaccine 16:22:23 APPLICATIONS SUPPORT ENGINEER CPT-61944 Free T4 - LAB USE ONLY 11:38:58 CDT CPT-24253 TSH - LAB USE ONLY 11:38:58 CDT CPT-06468 Venipuncture Draw Fee 11:38:58 CDT CPT-73056 Fluzone Quadrivalent Intramuscular Suspension 0.5 ML 16: 12:26 APPLICATIONS SUPPORT ENGINEER CPT-67867 Immunization Single Admin 16:12:26 APPLICATIONS SUPPORT ENGINEER CPT-J0561 Bicillin LA 1,200,000 u (PCN G Benzathine) 16:40:23 CDT CPT-76505 Abx/Therapy Injection 16:40:22 CDT CPT-J0561 Bicillin LA 1,200,000 u (PCN G Benzathine) 16:15:35 CDT CPT-83289 Immunization Single Admin 16:11:28 APPLICATIONS SUPPORT ENGINEER CPT-44589 Fluzone Quadrivalent Intramuscular Suspension 0.5 ML 16: 11:28 APPLICATIONS SUPPORT ENGINEER CPT-10375 Administration single or combination vaccine inc oral 13 :57:23 CDT CPT-80000 Menactra Intramuscular Injectable 13:57:23 CDT CPT-79089 First Vx Component - Ix admin via ID IM or jet inj without physician counseling 16:42:17 APPLICATIONS SUPPORT ENGINEER CPT-77444 Fluzone preservative free (>=3 yrs.) 16:42:17 APPLICATIONS SUPPORT ENGINEER 06/03 CPT-43928 Venipuncture Draw Fee 16:29:01 CDT CPT-60837 Chest 2V Frontal and Lat 16:23:56 CDT CPT-61182 Administration single or combination vaccine inc oral 13 :39:17 APPLICATIONS SUPPORT ENGINEER CPT-27700 Tdap 13:39:17 APPLICATIONS SUPPORT ENGINEER
--- OUTSIDE RECORDS SUMMARY | 2017-11-06 01:38 | XMS REPORT | Clinical Summary ---
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 Body Mass Index 34.0-34.9, adult HYPERTENSION ICD-401.9 [...] Gastroenteritis, viral, acute ICD-008.8 Inactive Martha Montejo FILTER MACHINE OPERATOR Bronchitis ICD-490 Inactive Hector Love [...] MG ORAL CAPSULE 2 po BID TACROLIMUS 72944387062 Active Hector Love MD Active CETIRIZINE HCL 10 MG ORAL TABLET 1 po qd PRN Allergies CETIRIZINE HCL 83734826589 Active Hector Love MD Active LISINOPRIL 5 MG ORAL TABLET 1.5 po qd LISINOPRIL 25702559843 Vivek Love MD Active FLUTICASONE PROPIONATE 50 MCG/ACT NASAL SUSPENSION 2 sprays/nostril qd PRN Congestion/Allergies FLUTICASONE PROPIONATE 65273177675 Active Hector Love MD Active VITAMIN C 500 MG ORAL TABLET CHEWABLE ASCORBIC ACID 28010660436 No Longer Active Hector Love MD Active PREDNISONE 20 MG ORAL TABLET 1 tablet daily x 2 days PREDNISONE 29036706881 No Longer Active Manish Castrejon APRN Active AMOXICILLIN 500 MG ORAL TABLET Take two tablets by mouth every 12 hours for 10 days AMOXICILLIN 78512139313 No Longer Active Иван Mooney MD Active PREDNISONE 20 MG ORAL TABLET 2 po qd x 4 days PREDNISONE 60722519935 No Longer Active Hector Love MD Active HYDROCODONE-ACETAMINOPHEN 5-325 MG ORAL TABLET 1/2 to 1 po q 4 hours prn pain HYDROCODONE-ACETAMINOPHEN 48146785805 No Longer Active Hector Love MD Active AUGMENTIN 875-125 MG ORAL TABLET 1 po BID x 10 days AMOXICILLIN-POT CLAVULANATE 84477905418 No Longer Active Hector Love MD Active FLONASE ALLERGY RELIEF 50 MCG/ACT NASAL SUSPENSION 2 sprays each nostril daily PRN allergies FLUTICASONE PROPIONATE 89680610722 No Longer Active Hector Love MD Active AMOXICILLIN 500 MG ORAL CAPSULE 1 cap by mouth three times a day AMOXICILLIN 44286382591 No Longer Active Manish Castrejon APRN Active KEFLEX 500 MG ORAL CAPSULE 1 tab po tid CEPHALEXIN 18935468667 No Longer Active Jillina Fradebora GARCIA Active AMOXICILLIN 500 MG ORAL TABLET 2 tabs twice a day for 10 days AMOXICILLIN 45953227345 No Longer Active Jilldenise Fradebora GARCIA Active ZOFRAN 4 MG ORAL TABLET 1 po q6hr PRN Nausea ONDANSETRON HCL 66570098949 No Longer Active Ramona Diggs LPN Active AMOXICILLIN 500 MG ORAL CAPSULE 2 po BID x 10 days AMOXICILLIN 19149832565 No Longer Active Martha Montejo APRN Active AUGMENTIN 875-125 MG ORAL TABLET 1 tab by mouth twice daily with food AMOXICILLIN-POT CLAVULANATE 56020353780 No Longer Active Hector Love MD Active LEVAQUIN 500 MG ORAL TABLET 1 pill by mouth daily LEVOFLOXACIN 55280213150 No Longer Active Jen Crystal MD PhD Active KETOCONAZOLE 2 % EXTERNAL CREAM apply twice a day to rash KETOCONAZOLE 12752579110 No Longer Active Hector Love MD Active AUGMENTIN 875-125 MG ORAL TABLET 1 tab by mouth twice daily with food AMOXICILLIN-POT CLAVULANATE 03177332365 No Longer Active Иван Mooney MD Active LOTRISONE 1-0.05 % EXTERNAL CREAM Apply twice a day to affected area CLOTRIMAZOLE-BETAMETHASONE 99072683095 No Longer Active Иван Mooney MD Active FEXOFENADINE HCL 180 MG ORAL TABLET 1 Daily FEXOFENADINE HCL 01250708051 No Longer Active Hector Love MD Active PROGRAF 0.5 MG ORAL CAPSULE Take one by mouth daily with 1 mg TACROLIMUS 97333468848 No Longer Active Hector Love MD Active AMOXICILLIN 500 MG ORAL CAPSULE 2 po BID x 10 days AMOXICILLIN 99304122280 No Longer Active Hector Love MD Active RAPAMUNE 1 MG ORAL TABLET 3 tabs in the am SIROLIMUS 32993861715 No Longer Active Hector Love MD Active AMOXICILLIN 500 MG ORAL CAPSULE 2 po BID x 10 days AMOXICILLIN 49789261946 No Longer Active Hector Love MD Active LORTAB 5-500 MG ORAL TABLET 1/2 to 1 tablet by mouth every 4 hours as needed for pain HYDROCODONE-ACETAMINOPHEN 49653831466 No Longer Active Hector Love MD Active FLUTICASONE PROPIONATE 50 MCG/ACT NASAL SUSPENSION INSTILL 2 SPRAYS IN EACH NOSTRIL Q D FLUTICASONE PROPIONATE 15592846222 No Longer Active Hector Love MD Active PROGRAF 1 MG ORAL CAPSULE 1 po bid TACROLIMUS 26342776608 No Longer Active Hector Love MD Active AMOXICILLIN 875 MG ORAL TABLET 1 tab by mouth twice daily AMOXICILLIN 06762793519 No Longer Active Hector Love MD Active AMOXICILLIN 500 MG ORAL CAPSULE 2 po BID x 10 days AMOXICILLIN 38453748414 No Longer Active Hector Love MD Active AUGMENTIN 875-125 MG ORAL TABLET 1 tab by mouth twice daily with food AMOXICILLIN-POT CLAVULANATE 70452271183 No Longer Active Hector Love MD Active AZITHROMYCIN 250 MG ORAL TABLET 2 po qd x 1 day, then 1 po qd x 4 days 06/19 AZITHROMYCIN 26968162971 No Longer Active Hector Love MD Active CETIRIZINE HCL 10 MG ORAL TABLET 1 PO Q D CETIRIZINE HCL 64634854405 No Longer Active Waleska Belington Active PROGRAF 1 MG ORAL CAPSULE 1 po bid PROGRAF 1 MG ORAL CAPSULE 604508 TACROLIMUS Inactive FLUTICASONE PROPIONATE 50 MCG/ACT NASAL SUSPENSION INSTILL 2 SPRAYS IN EACH NOSTRIL Q D FLUTICASONE PROPIONATE 50 MCG/ACT NASAL SUSPENSION 5306948 FLUTICASONE PROPIONATE Inactive LORTAB 5-500 MG ORAL TABLET 1/2 to 1 tablet by mouth every 4 hours as needed for pain LORTAB 5-500 MG ORAL TABLET HYDROCODONE- ACETAMINOPHEN Inactive RAPAMUNE 1 MG ORAL TABLET 3 tabs in the am RAPAMUNE 1 MG ORAL TABLET 557955 SIROLIMUS Inactive PROGRAF 0.5 MG ORAL CAPSULE Take one by mouth daily with 1 mg PROGRAF 0.5 MG ORAL CAPSULE 694181 TACROLIMUS Inactive FEXOFENADINE HCL 180 MG ORAL TABLET 1 Daily FEXOFENADINE HCL 180 MG ORAL TABLET 788389 FEXOFENADINE HCL Inactive LOTRISONE 1-0.05 % EXTERNAL CREAM Apply twice a day to affected area LOTRISONE 1-0.05 % EXTERNAL CREAM 936102 CLOTRIMAZOLE- BETAMETHASONE Inactive KETOCONAZOLE 2 % EXTERNAL CREAM apply twice a day to rash KETOCONAZOLE 2 % EXTERNAL CREAM 891612 KETOCONAZOLE Inactive AUGMENTIN 875-125 MG ORAL TABLET 1 tab by mouth twice daily with food AUGMENTIN 875-125 MG ORAL TABLET 655272 AMOXICILLIN-POT CLAVULANATE Inactive ZOFRAN 4 MG ORAL TABLET 1 po q6hr PRN Nausea ZOFRAN 4 MG ORAL TABLET 522947 ONDANSETRON HCL Inactive AMOXICILLIN 500 MG ORAL TABLET 2 tabs twice a day for 10 days AMOXICILLIN 500 MG ORAL TABLET 715866 AMOXICILLIN Inactive FLONASE ALLERGY RELIEF 50 MCG/ACT NASAL SUSPENSION 2 sprays each nostril daily PRN allergies FLONASE ALLERGY RELIEF 50 MCG/ACT NASAL SUSPENSION 2802257 FLUTICASONE PROPIONATE Inactive HYDROCODONE-ACETAMINOPHEN 5-325 MG ORAL TABLET 1/2 to 1 po q 4 hours prn pain HYDROCODONE-ACETAMINOPHEN 5-325 MG ORAL TABLET 057872 HYDROCODONE-ACETAMINOPHEN Inactive PREDNISONE 20 MG ORAL TABLET 1 tablet daily x 2 days PREDNISONE 20 MG ORAL TABLET 970235 PREDNISONE Inactive VITAMIN C 500 MG ORAL TABLET CHEWABLE VITAMIN C 500 MG ORAL TABLET CHEWABLE ASCORBIC ACID Inactive AMOXICILLIN 500 MG ORAL CAPSULE 2 po BID x 10 days AMOXICILLIN 500 MG ORAL CAPSULE 468969 AMOXICILLIN Inactive AMOXICILLIN 875 MG ORAL TABLET 1 tab by mouth twice daily AMOXICILLIN 875 MG ORAL TABLET 733998 AMOXICILLIN Inactive AMOXICILLIN 500 MG ORAL CAPSULE 2 po BID x 10 days AMOXICILLIN 500 MG ORAL CAPSULE 824570 AMOXICILLIN Inactive AMOXICILLIN 500 MG ORAL CAPSULE 2 po BID x 10 days AMOXICILLIN 500 MG ORAL CAPSULE 710371 AMOXICILLIN Inactive AUGMENTIN 875-125 MG ORAL TABLET 1 tab by mouth twice daily with food AUGMENTIN 875-125 MG ORAL TABLET 568293 AMOXICILLIN-POT CLAVULANATE Inactive LEVAQUIN 500 MG ORAL TABLET 1 pill by mouth daily LEVAQUIN 500 MG ORAL TABLET 602859 LEVOFLOXACIN Inactive AMOXICILLIN 500 MG ORAL CAPSULE 2 po BID x 10 days AMOXICILLIN 500 MG ORAL CAPSULE 265824 AMOXICILLIN Inactive AMOXICILLIN 500 MG ORAL CAPSULE 1 cap by mouth three times a day AMOXICILLIN 500 MG ORAL CAPSULE 790077 AMOXICILLIN Inactive AUGMENTIN 875-125 MG ORAL TABLET 1 po BID x 10 days AUGMENTIN 875-125 MG ORAL TABLET 160513 AMOXICILLIN-POT CLAVULANATE Inactive PREDNISONE 20 MG ORAL TABLET 2 po qd x 4 days PREDNISONE 20 MG ORAL TABLET 273386 PREDNISONE Inactive AMOXICILLIN 500 MG ORAL TABLET Take two tablets by mouth every 12 hours for 10 days AMOXICILLIN 500 MG ORAL TABLET 724393 AMOXICILLIN Inactive Advance Directives Directive Description Start Date PERMISSION TO SHARE Immunizations Vaccine Administration Date Value Standard Description Seasonal influenza vaccine, injectable, preservative free, for > 3 years old ( Afluria, FluLaval, Fluzone, Fluvirin, Fluarix, Agriflu(>=18 yo)) Fluzone preservative free (>=3 yrs.) [TSP802] Influenza, seasonal, injectable, preservative free Adacel (Tetanus, reduced Diphtheria, and acellular Pertussis Immunization) Adacel [UHF012] tetanus toxoid, reduced diphtheria toxoid, and acellular [...] Panel - Chemistry sodium, serum 137 mmol/L 568-889 1673/08/14 carbon dioxide, venous blood 29.7 mmol/L 21.0-32.0 potassium, serum 4.3 mmol/L 3.5-5.2 chloride, serum 99 mmol/L 98-107 blood glucose 123 mg/dL 65-110 urea nitrogen, blood 12 mg/dL 7-18 creatinine, serum 0.84 mg/dL 0.60-1.30 alanine aminotransferase (SGPT), serum 48 U/L 12-78 aspartate aminotransferase (SGOT), serum 26 U/L 15-37 calcium, serum 9.4 mg/dL 8.5-10.1 bilirubin, serum, total 1.60 mg/dL 0.00-1.00 cholesterol, serum 141 mg/dL 937-080 2785/08/14 triglyceride, serum, fasting 54 mg/dL 30-200 HDL [...] ... - Chemistry sodium, serum 137 mmol/L 951-294 7171/04/23 carbon dioxide, venous blood 28.4 mmol/L 21.0-32.0 [...] semiquantitative 6.0 5.0-8.5 Lab Report: VITAMIN D, 25-HYDROXY/58784 - Chemistry vitamin D 25-hydroxy, serum 18 ng/mL 30-100 vitamin D 25-hydroxy, serum 44 ng/mL 30-100 Encounters Code Encounter Date Provider Facility CPT-53747 Level 3 Est. Patient 10:49:01 CDT Manish Castrejon [facility] [place] CPT-98995 Level 3 Est. Patient 11:35:07 CDT Elijahzeyad Chasel [facility] [place] CPT-20442 Level 3 Est. Patient 17:22:36 CDT Tracy Frey [facility] CPT-62812 Level 3 Est. Patient 16:06:03 CDT Elijahudaydenise Uriosteguigretal [facility] [place] CPT-03042 Level 3 Est. Patient 09:57:24 CDT Elijahzeyad Moodygretal [facility] [place] CPT-00513 Level 3 Est. Patient 16:31:04 CDT Иван Mooney MD [facility] CPT-88765 Level 4 Est. Patient 12:02:18 CDT Hector Love MD [facility] CPT-98517 Level 3 Est. Patient 16:14:45 CDT Hector Love MD [facility] CPT-09982 Level 3 Est. Patient 16:53:35 CDT Иван Mooney MD [facility] CPT-10855 Level 3 Est. Patient 15:57:13 CDT Martha Nikia [facility] CPT-51374 Level 3 Est. Patient 14:30:47 [employer]ESPERSON [employer] Hector Love MD [facility] CPT-82802 Level 3 Est. Patient 14:50:45 CDT Hector Love MD [facility] CPT-37279 Level 3 Est. Patient 21:17:30 CDT Jen Crystal MD, PhD [facility] CPT-42821 Level 3 Est. Patient 09:32:55 CDT Hector Love MD [facility] [place]-[id number] Level 3 Est. Patient 15:11:08 [employer]ESPERSON [employer] Иван Mooney MD [facility] CPT-17996 Level 3 Est. Patient 16:38:53 [employer]ESPERSON [employer] Hector Love MD [facility] CPT-86392 Level 3 Est. Patient 15:46:05 CDT Hector Love MD [facility] CPT-45653 Level 3 Est. Patient 13:59:39 CDT Hector Love MD [facility] CPT-57604 Level 3 Est. 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 Patient 17:12:27 CDT Hector Love MD [facility] CPT-82710 Level 3 Est. Patient 15:30:32 CDT Hector Love MD [facility] CPT-59735 Level 3 Est. Patient 14:24:52 CDT Иван Mooney MD [facility] CPT-02604 Level 3 Est. Patient 14:08:38 [employer]ESPERSON [employer] Hector Love MD [facility] Procedures Code Procedure Name Date Entry Date Standard Description CPT-98330 Chest, 2 views 11:04:30 CDT CPT-64768 Venipuncture Draw Fee 16:18:26 CDT CPT-64016 TB Skin Test 09:57:25 CDT CPT-000 Give Appropriate Flu Vaccine 16:22:23 [employer] CPT-73014 Free T4 - LAB USE ONLY 11:38:58 CDT CPT-40203 TSH - LAB USE ONLY 11:38:58 CDT CPT-90247 Venipuncture Draw Fee 11:38:58 CDT CPT-22936 Fluzone Quadrivalent Intramuscular Suspension 0.5 ML 16: 12:26 [employer] CPT-68655 Immunization Single Admin 16:12:26 [employer]ESPERSON [employer] CPT-J0561 Bicillin LA 1,200,000 u (PCN G Benzathine) 16:40:23 CDT CPT-92865 Abx/Therapy Injection 16:40:22 CDT CPT-J0561 Bicillin LA 1,200,000 u (PCN G Benzathine) 16:15:35 CDT CPT-08985 Immunization Single Admin 16:11:28 [employer]ESPERSON [employer] CPT-59234 Fluzone Quadrivalent Intramuscular Suspension 0.5 ML 16: 11:28 [employer]ESPERSON [employer] CPT-69525 Administration single or combination vaccine inc oral 13 :57:23 CDT CPT-51826 Menactra Intramuscular Injectable 13:57:23 CDT CPT-12040 First Vx Component - Ix admin via ID IM or jet inj without physician counseling 16:42:17 [employer]ESPERSON [employer] CPT-68408 Fluzone preservative free (>=3 yrs.) 16:42:17 SALESPERSON [employer] 06/03 CPT-24309 Venipuncture Draw Fee 16:29:01 CDT CPT-89784 Chest 2V Frontal and Lat 16:23:56 CDT CPT-11735 Administration single or combination vaccine inc oral 13 :39:17 [employer]ESPERSON [employer] CPT-74266 Tdap 13:39:17 [employer]ESPERSON [employer]
--- OUTSIDE RECORDS SUMMARY | 2017-11-06 01:39 | XMS REPORT | Clinical Summary ---
Author Author Admin, LAMBERT Organization [employer] Address Unknown Phone Unavailable Allergies, Adverse Reactions, [...] Gastroenteritis, viral, acute 008.8 Resolved Martha Montejo DIRECTOR OF PROGRAMMING Intestinal infection due to other organism, not [...] employment physical examination V70.0 Active Manish Castrejon DIRECTOR OF PROGRAMMING Routine general medical examination at a health care facility Exposure to mononucleosis V01.79 Active Manish Castrejon DIRECTOR OF PROGRAMMING Contact with or exposure to other viral diseases Stress at work V62.1 Active Jillina Frazell DIRECTOR OF PROGRAMMING Adverse effects of work environment FH DIABETES [...] Gastroenteritis, viral, acute ICD-008.8 Inactive Martha Montejo DIRECTOR OF PROGRAMMING Bronchitis ICD-490 Inactive Hector Love MD 2014 Pharyngitis ICD-462 Inactive Hector Love MD Ingrown toenail ICD-703.0 Inactive Hector Love MD Malorie rodriguez, right ICD-703.0 Inactive Hector Love MD Medication List Medication Instructions Start Date Stop Date Generic Name ND Status Provider Patient Instruction PREDNISONE 20 MG TAB 1 tablet daily x 2 days PREDNISONE [id number] No Longer Active Jillina Frazell DIRECTOR OF PROGRAMMING Active AMOXICILLIN 500 MG TABS Take two tablets by mouth every 12 hours for 10 days AMOXICILLIN 53874068303 No Longer Active Иван Mooney MD Active VITAMIN C 500 MG CHEW TAB ASCORBIC ACID 94849197390 Active Иван Mooney MD Active PREDNISONE 20 MG TAB 2 po qd x 4 days PREDNISONE 28299626362 No Longer Active Hector Love MD Active HYDROCODONE-ACETAMINOPHEN 5-325 MG TABS 1/2 to 1 po q 4 hours prn pain 11/06 HYDROCODONE-ACETAMINOPHEN 28521490898 No Longer Active Hector Love MD Active FLONASE ALLERGY RELIEF 50 MCG/ACT NASAL SUSP 2 spray each nostril daily prn allergies FLUTICASONE PROPIONATE 38519361322 Active Hector Love MD Active AUGMENTIN 875-125 MG TAB 1 po BID x 10 days AMOXICILLIN-POT CLAVULANATE 70090037767 No Longer Active Hector Love MD Active FLONASE ALLERGY RELIEF 50 MCG/ACT NASAL SUSP 2 sprays each nostril daily PRN allergies FLUTICASONE PROPIONATE 67793235716 No Longer Active Hector Love MD Active AMOXICILLIN 500 MG CAPS 1 cap by mouth three times a day AMOXICILLIN 50306460057 No Longer Active Jillina Fradebora GARCIA Active KEFLEX 500 MG CAP 1 tab po tid CEPHALEXIN 45803245897 No Longer Active Jillina Frazell DIRECTOR OF PROGRAMMING Active AMOXICILLIN 500 MG TABS 2 tabs twice a day for 10 days AMOXICILLIN 93923192761 No Longer Active Jillina Frazell DIRECTOR OF PROGRAMMING Active ZYRTEC ALLERGY 10 MG CAPS 1 po qd CETIRIZINE HCL 63613552099 Active Hector Love MD Active PROGRAF 1 MG CAPS 2 tabs po bid TACROLIMUS 64370809706 Active Hector Love MD Active ZOFRAN 4 MG TABS 1 po q6hr PRN Nausea ONDANSETRON HCL 65996094059 No Longer Active Ramona Diggs ROENTGENOLOGY TEACHER Active AMOXICILLIN 500 MG CAPS 2 po BID x 10 days AMOXICILLIN 64154211458 No Longer Active Martha Escalantestephen DIRECTOR OF PROGRAMMING Active AUGMENTIN 875-125 MG TAB 1 tab by mouth twice daily with food AMOXICILLIN-POT CLAVULANATE 92269760727 No Longer Active Hector Love MD Active LEVAQUIN 500 MG TABS 1 pill by mouth daily LEVOFLOXACIN 08056803499 No Longer Active Jen Crystal MD PhD Active LISINOPRIL 5 MG TABS 1.5 tab qd LISINOPRIL 45205250506 Active Jen Crystal MD PhD Active KETOCONAZOLE 2 % CREA apply twice a day to rash KETOCONAZOLE 72682957640 No Longer Active Hector Love MD Active AUGMENTIN 875-125 MG TAB 1 tab by mouth twice daily with food AMOXICILLIN-POT CLAVULANATE 33064768476 No Longer Active Иван Mooney MD Active LOTRISONE 0.05-1 % CREAM Apply twice a day to affected area 07/19 CLOTRIMAZOLE-BETAMETHASONE 04500484886 No Longer Active Иван Mooney MD Active FEXOFENADINE HCL 180 MG TABS 1 Daily FEXOFENADINE HCL 47890887863 No Longer Active Hector Love MD Active PROGRAF 0.5 MG CAPS Take one by mouth daily with 1 mg TACROLIMUS 82340179938 No Longer Active Hector Love MD Active AMOXICILLIN 500 MG CAPS 2 po BID x 10 days AMOXICILLIN 93657995047 No Longer Active Hecotr Love MD Active RAPAMUNE 1 MG TABS 3 tabs in the am SIROLIMUS 13851840545 No Longer Active Hector Love MD Active AMOXICILLIN 500 MG CAPS 2 po BID x 10 days AMOXICILLIN 68506094491 No Longer Active Hector Love MD Active LORTAB 5 5-500 MG TABS 1/2 to 1 tablet by mouth every 4 hours as needed for pain HYDROCODONE-ACETAMINOPHEN 53464990455 No Longer Active Hector Love MD Active FLUTICASONE PROPIONATE 50 MCG/ACT SUSP INSTILL 2 SPRAYS IN EACH NOSTRIL Q D FLUTICASONE PROPIONATE 93856556531 No Longer Active Hector Love MD Active PROGRAF 1 MG CAPS 1 po bid TACROLIMUS 77595751189 No Longer Active Hector Love MD Active AMOXICILLIN 875 MG TABS 1 tab by mouth twice daily AMOXICILLIN 04560111766 No Longer Active Hector Love MD Active AMOXICILLIN 500 MG CAPS 2 po BID x 10 days AMOXICILLIN 71491102256 No Longer Active Hector Love MD Active AUGMENTIN 875-125 MG TAB 1 tab by mouth twice daily with food AMOXICILLIN-POT CLAVULANATE 41858965959 No Longer Active Hector Love MD Active AZITHROMYCIN 250 MG TABS 2 po qd x 1 day, then 1 po qd x 4 days AZITHROMYCIN 55360076913 No Longer Active Hector Love MD Active CETIRIZINE HCL 10 MG TABS 1 PO Q D CETIRIZINE HCL 02216616479 No Longer Active [place] Active PROGRAF 1 MG CAPS 1 po bid PROGRAF 1 MG CAPS 052812 TACROLIMUS Inactive FLUTICASONE PROPIONATE 50 MCG/ACT SUSP INSTILL 2 SPRAYS IN EACH NOSTRIL Q D FLUTICASONE PROPIONATE 50 MCG/ACT SUSP 1959995 FLUTICASONE PROPIONATE Inactive LORTAB 5 5-500 MG TABS 1/2 to 1 tablet by mouth every 4 hours as needed for pain LORTAB 5 5-500 MG TABS HYDROCODONE- ACETAMINOPHEN Inactive RAPAMUNE 1 MG TABS 3 tabs in the am RAPAMUNE 1 MG TABS 707196 SIROLIMUS Inactive PROGRAF 0.5 MG CAPS Take one by mouth daily with 1 mg PROGRAF 0.5 MG CAPS 585422 TACROLIMUS Inactive FEXOFENADINE HCL 180 MG TABS 1 Daily FEXOFENADINE HCL 180 MG TABS 831057 FEXOFENADINE HCL Inactive LOTRISONE 0.05-1 % CREAM Apply twice a day to affected area 07/19 LOTRISONE 0.05-1 % CREAM 322325 CLOTRIMAZOLE-BETAMETHASONE Inactive KETOCONAZOLE 2 % CREA apply twice a day to rash KETOCONAZOLE 2 % CREA 351635 KETOCONAZOLE Inactive AUGMENTIN 875-125 MG TAB 1 tab by mouth twice daily with food AUGMENTIN 875-125 MG TAB 114483 AMOXICILLIN-POT CLAVULANATE Inactive ZOFRAN 4 MG TABS 1 po q6hr PRN Nausea ZOFRAN 4 MG TABS 766484 ONDANSETRON HCL Inactive AMOXICILLIN 500 MG TABS 2 tabs twice a day for 10 days AMOXICILLIN 500 MG TABS 010315 AMOXICILLIN Inactive FLONASE ALLERGY RELIEF 50 MCG/ACT NASAL SUSP 2 sprays each nostril daily PRN allergies FLONASE ALLERGY RELIEF 50 MCG/ACT NASAL SUSP 0761401 FLUTICASONE PROPIONATE Inactive HYDROCODONE-ACETAMINOPHEN 5-325 MG TABS 1/2 to 1 po q 4 hours prn pain 11/06 HYDROCODONE-ACETAMINOPHEN 5-325 MG TABS 762922 HYDROCODONE- ACETAMINOPHEN Inactive PREDNISONE 20 MG TAB 1 tablet daily x 2 days PREDNISONE 20 MG TAB 590036 PREDNISONE Inactive AMOXICILLIN 500 MG CAPS 2 po BID x 10 days AMOXICILLIN 500 MG CAPS 598245 AMOXICILLIN Inactive AMOXICILLIN 875 MG TABS 1 tab by mouth twice daily AMOXICILLIN 875 MG TABS 290935 AMOXICILLIN Inactive AMOXICILLIN 500 MG CAPS 2 po BID x 10 days AMOXICILLIN 500 MG CAPS 381029 AMOXICILLIN Inactive AMOXICILLIN 500 MG CAPS 2 po BID x 10 days AMOXICILLIN 500 MG CAPS 302919 AMOXICILLIN Inactive AUGMENTIN 875-125 MG TAB 1 tab by mouth twice daily with food AUGMENTIN 875-125 MG TAB 036189 AMOXICILLIN-POT CLAVULANATE Inactive LEVAQUIN 500 MG TABS 1 pill by mouth daily LEVAQUIN 500 MG TABS 506949 LEVOFLOXACIN Inactive AMOXICILLIN 500 MG CAPS 2 po BID x 10 days AMOXICILLIN 500 MG CAPS 707158 AMOXICILLIN Inactive AMOXICILLIN 500 MG CAPS 1 cap by mouth three times a day AMOXICILLIN 500 MG CAPS 678763 AMOXICILLIN Inactive AUGMENTIN 875-125 MG TAB 1 po BID x 10 days AUGMENTIN 875-125 MG TAB 178223 AMOXICILLIN-POT CLAVULANATE Inactive PREDNISONE 20 MG TAB 2 po qd x 4 days PREDNISONE 20 MG TAB 596719 PREDNISONE Inactive AMOXICILLIN 500 MG TABS Take two tablets by mouth every 12 hours for 10 days AMOXICILLIN 500 MG TABS 041235 AMOXICILLIN Inactive Advance Directives Directive Description Start Date PERMISSION TO SHARE Immunizations Vaccine Administration Date Value Standard Description Seasonal influenza vaccine, injectable, preservative free, for > 3 years old ( Afluria, FluLaval, Fluzone, Fluvirin, Fluarix, Agriflu(>=18 yo)) Fluzone preservative free (>=3 yrs.) [[id number]] Influenza, seasonal, injectable, preservative free Adacel (Tetanus, reduced Diphtheria, and acellular Pertussis Immunization) Adacel [[id number]] tetanus toxoid, reduced diphtheria toxoid, and acellular [...] Panel - Chemistry sodium, serum 137 mmol/L 847-156 6963/08/14 carbon dioxide, venous blood 29.7 mmol/L 21.0-32.0 potassium, serum 4.3 mmol/L 3.5-5.2 chloride, serum 99 mmol/L 98-107 blood glucose 123 mg/dL 65-110 urea nitrogen, blood 12 mg/dL 7-18 creatinine, serum 0.84 mg/dL 0.60-1.30 alanine aminotransferase (SGPT), serum 48 U/L 12-78 aspartate aminotransferase (SGOT), serum 26 U/L 15-37 calcium, serum 9.4 mg/dL 8.5-10.1 bilirubin, serum, total 1.60 mg/dL 0.00-1.00 cholesterol, serum 141 mg/dL 864-100 3704/08/14 triglyceride, serum, fasting 54 mg/dL 30-200 HDL [...] semiquantitative 6.0 5.0-8.5 Lab Report: VITAMIN D, [id number] - Chemistry vitamin D 25-hydroxy, serum 18 ng/mL 30-100 Encounters Code Encounter Date Provider Facility CPT-55270 Level 3 Est. Patient 11:35:07 CDT Manish Castrejon [facility] CPT-59650 Level 3 Est. [facility] 17[facility]22[facility] Est[facility] Patient 16:06:03 CDT Manish Castrejon [facility] CPT-70586 Level 3 Est. [facility] 09[facility]57[facility] Level 3 Est. Patient 16:31:04 CDT Иван Mooney MD [facility] CPT-93794 Level 4 Est. Patient 12:02:18 CDT Hector Love MD [facility] CPT-68531 Level 3 Est. Patient 16:14:45 CDT Hector Love MD [facility] CPT-03073 Level 3 Est. Patient 16:53:35 CDT Иван Mooney MD [facility] CPT-77224 Level 3 Est. Patient 15:57:13 CDT Martha Montejo RADHA [facility] CPT-24021 Level 3 Est. Patient 14:30:47 [employer]OD CUT ENGRAVER Hector Love MD [facility] CPT-96709 Level 3 Est. Patient 14:50:45 CDT Hector Love MD [facility] CPT-51838 Level 3 Est. Patient 21:17:30 CDT Jen Crystal MD PhD [facility] CPT-85469 Level 3 Est. Patient 09:32:55 CDT Hector Love MD [facility] CPT-79351 Level 3 Est. Patient 15:11:08 WOOD CUT ENGRAVER Иван Mooney MD [facility] CPT-95606 Level 3 Est. Patient 16:38:53 WOOD CUT ENGRAVER Hector Love MD [facility] CPT-43127 Level 3 Est. Patient 15:46:05 CDT Hector Love MD [facility] CPT-80729 Level 3 Est. Patient 13:59:39 CDT Hector Love MD [facility] CPT-57393 Level 3 Est. Patient 14:44:46 WOOD CUT ENGRAVER Hector Love MD [facility] CPT-97583 Level 3 Est. Patient 17:12:27 CDT Hector Love MD [facility] CPT-46603 Level 3 Est. Patient 15:30:32 CDT Hector Love MD [facility] CPT-16594 Level 3 Est. Patient 14:24:52 CDT Иван Mooney MD [facility] CPT-81334 Level 3 Est. Patient 14:08:38 WOOD CUT ENGRAVER Hector Love MD [facility] Procedures Code Procedure Name Date Entry Date Standard Description CPT-89471 Venipuncture Draw Fee 16:18:26 CDT CPT-18597 TB Skin Test 09:57:25 CDT CPT-000 Give Appropriate Flu Vaccine 16:22:23 WOOD CUT ENGRAVER CPT-05836 Free T4 - LAB USE ONLY 11:38:58 CDT CPT-54277 TSH - LAB USE ONLY 11:38:58 CDT CPT-85871 Venipuncture Draw Fee 11:38:58 CDT CPT-19360 Fluzone Quadrivalent Intramuscular Suspension 0.5 ML 16: 12:26 WOOD CUT ENGRAVER CPT-18036 Immunization Single Admin 16:12:26 WOOD CUT ENGRAVER CPT-J0561 Bicillin LA 1,200,000 u (PCN G Benzathine) 16:40:23 CDT CPT-17815 Abx/Therapy Injection 16:40:22 CDT CPT-J0561 Bicillin LA 1,200,000 u (PCN G Benzathine) 16:15:35 CDT CPT-57611 Immunization Single Admin 16:11:28 WOOD CUT ENGRAVER CPT-29403 Fluzone Quadrivalent Intramuscular Suspension 0.5 ML 16: 11:28 WOOD CUT ENGRAVER CPT-56238 Administration single or combination vaccine inc oral 13 :57:23 CDT CPT-95137 Menactra Intramuscular Injectable 13:57:23 CDT CPT-39336 First Vx Component - Ix admin via ID IM or jet inj without physician counseling 16:42:17 WOOD CUT ENGRAVER CPT-61222 Fluzone preservative free (>=3 yrs.) 16:42:17 WOOD CUT ENGRAVER 06/03 CPT-62670 Venipuncture Draw Fee 16:29:01 CDT CPT-95203 Chest 2V Frontal and Lat 16:23:56 CDT CPT-02882 Administration single or combination vaccine inc oral 13 :39:17 WOOD CUT ENGRAVER CPT-41640 Tdap 13:39:17 WOOD CUT ENGRAVER
--- OUTSIDE RECORDS SUMMARY | 2017-11-06 01:40 | XMS REPORT | Clinical Summary ---
Author Author Admin, LAMBERT Organization [employer] Address Unknown Phone Unavailable Allergies, Adverse Reactions, [...] Gastroenteritis, viral, acute 008.8 Resolved Martha Montejo VEHICLE COST ENGINEER Intestinal infection due to other organism, not [...] employment physical examination V70.0 Active Manish Castrejon VEHICLE COST ENGINEER Routine general medical examination at a health care facility Exposure to mononucleosis V01.79 Active Manish Castrejon VEHICLE COST ENGINEER Contact with or exposure to other viral [...] Hector Love MD Ingrown toenail ICD-703.0 Inactive Hetcor Love MD Ingrown toenail, right ICD-703.0 Nils Hernandezlow MD Medication List Medication Instructions Start Date Stop Date Generic Name ND Status Provider Patient Instruction PREDNISONE 20 MG TAB 1 tablet daily x 2 days PREDNISONE 67788934315 Active Pilo Flores DO Active AMOXICILLIN 500 MG TABS Take two tablets by mouth every 12 hours for 10 days AMOXICILLIN 35801071864 No Longer Active Иван Mooney MD Active VITAMIN C 500 MG CHEW TAB ASCORBIC ACID 82781454412 Active Иван Mooney MD Active PREDNISONE 20 MG TAB 2 po qd x 4 days PREDNISONE 44908181767 No Longer Active Hector Love MD Active HYDROCODONE-ACETAMINOPHEN 5-325 MG TABS 1/2 to 1 po q 4 hours prn pain 11/06 HYDROCODONE-ACETAMINOPHEN 56166411468 No Longer Active Hector Love MD Active FLONASE ALLERGY RELIEF 50 MCG/ACT NASAL SUSP 2 spray each nostril daily prn allergies FLUTICASONE PROPIONATE 19192748727 Active Hector Love MD Active AUGMENTIN 875-125 MG TAB 1 po BID x 10 days AMOXICILLIN-POT CLAVULANATE 47311293873 No Longer Active Hector Love MD Active FLONASE ALLERGY RELIEF 50 MCG/ACT NASAL SUSP 2 sprays each nostril daily PRN allergies FLUTICASONE PROPIONATE 48566395464 No Longer Active Hector Love MD Active AMOXICILLIN 500 MG CAPS 1 cap by mouth three times a day AMOXICILLIN 31419969425 No Longer Active Jillina Frazell VEHICLE COST ENGINEER Active KEFLEX 500 MG CAP 1 tab po tid CEPHALEXIN 35150633195 No Longer Active Jillina Frazell VEHICLE COST ENGINEER Active AMOXICILLIN 500 MG TABS 2 tabs twice a day for 10 days AMOXICILLIN 63981969150 No Longer Active Jillina Frazell VEHICLE COST ENGINEER Active ZYRTEC ALLERGY 10 MG CAPS 1 po qd CETIRIZINE HCL 34649501093 Active Hector Love MD Active PROGRAF 1 MG CAPS 2 tabs po bid TACROLIMUS 56435946848 Active Hector Love MD Active ZOFRAN 4 MG TABS 1 po q6hr PRN Nausea ONDANSETRON HCL 28646224521 No Longer Active Ramona Diggs LPN Active AMOXICILLIN 500 MG CAPS 2 po BID x 10 days AMOXICILLIN 47321649491 No Longer Active Martha Yohenrique GARCIA Active AUGMENTIN 875-125 MG TAB 1 tab by mouth twice daily with food AMOXICILLIN-POT CLAVULANATE 81222545134 No Longer Active Hector Love MD Active LEVAQUIN 500 MG TABS 1 pill by mouth daily LEVOFLOXACIN 55511039569 No Longer Active Jen Crystal MD PhD Active LISINOPRIL 5 MG TABS 1.5 tab qd LISINOPRIL 56284967126 Active Jen Crystal MD PhD Active KETOCONAZOLE 2 % CREA apply twice a day to rash KETOCONAZOLE 27884283381 No Longer Active Hector Love MD Active AUGMENTIN 875-125 MG TAB 1 tab by mouth twice daily with food AMOXICILLIN-POT CLAVULANATE 01966274324 No Longer Active Иван Mooney MD Active LOTRISONE 0.05-1 % CREAM Apply twice a day to affected area 07/19 CLOTRIMAZOLE-BETAMETHASONE 81901802929 No Longer Active Иван Mooney MD Active FEXOFENADINE HCL 180 MG TABS 1 Daily FEXOFENADINE HCL 56637404478 No Longer Active Hector Love MD Active PROGRAF 0.5 MG CAPS Take one by mouth daily with 1 mg TACROLIMUS 76987262524 No Longer Active Hector Love MD Active AMOXICILLIN 500 MG CAPS 2 po BID x 10 days AMOXICILLIN 15247482827 No Longer Active Hector Love MD Active RAPAMUNE 1 MG TABS 3 tabs in the am SIROLIMUS 61941941828 No Longer Active Hector Love MD Active AMOXICILLIN 500 MG CAPS 2 po BID x 10 days AMOXICILLIN 91026637370 No Longer Active Hector Love MD Active LORTAB 5 5-500 MG TABS 1/2 to 1 tablet by mouth every 4 hours as needed for pain HYDROCODONE-ACETAMINOPHEN 42657822191 No Longer Active Hector Love MD Active FLUTICASONE PROPIONATE 50 MCG/ACT SUSP INSTILL 2 SPRAYS IN EACH NOSTRIL Q D FLUTICASONE PROPIONATE 69404887775 No Longer Active Hector Love MD Active PROGRAF 1 MG CAPS 1 po bid TACROLIMUS 11906290845 No Longer Active Hector Love MD Active AMOXICILLIN 875 MG TABS 1 tab by mouth twice daily AMOXICILLIN 02651503646 No Longer Active Hector Love MD Active AMOXICILLIN 500 MG CAPS 2 po BID x 10 days AMOXICILLIN 60164115862 No Longer Active Hector Love MD Active AUGMENTIN 875-125 MG TAB 1 tab by mouth twice daily with food AMOXICILLIN-POT CLAVULANATE 16275146287 No Longer Active Hector Love MD Active AZITHROMYCIN 250 MG TABS 2 po qd x 1 day, then 1 po qd x 4 days AZITHROMYCIN 96836234875 No Longer Active Hector Love MD Active CETIRIZINE HCL 10 MG TABS 1 PO Q D CETIRIZINE HCL 02624143469 No Longer Active Waleska Levy Active PROGRAF 1 MG CAPS 1 po bid PROGRAF 1 MG CAPS 723625 TACROLIMUS Inactive FLUTICASONE PROPIONATE 50 MCG/ACT SUSP INSTILL 2 SPRAYS IN EACH NOSTRIL Q D FLUTICASONE PROPIONATE 50 MCG/ACT SUSP 4365051 FLUTICASONE PROPIONATE Inactive LORTAB 5 5-500 MG TABS 1/2 to 1 tablet by mouth every 4 hours as needed for pain LORTAB 5 5-500 MG TABS HYDROCODONE- ACETAMINOPHEN Inactive RAPAMUNE 1 MG TABS 3 tabs in the am RAPAMUNE 1 MG TABS 460325 SIROLIMUS Inactive PROGRAF 0.5 MG CAPS Take one by mouth daily with 1 mg PROGRAF 0.5 MG CAPS 406424 TACROLIMUS Inactive FEXOFENADINE HCL 180 MG TABS 1 Daily FEXOFENADINE HCL 180 MG TABS 382692 FEXOFENADINE HCL Inactive LOTRISONE 0.05-1 % CREAM Apply twice a day to affected area 07/19 LOTRISONE 0.05-1 % CREAM 870239 CLOTRIMAZOLE-BETAMETHASONE Inactive KETOCONAZOLE 2 % CREA apply twice a day to rash KETOCONAZOLE 2 % CREA 629654 KETOCONAZOLE Inactive AUGMENTIN 875-125 MG TAB 1 tab by mouth twice daily with food AUGMENTIN 875-125 MG TAB 072482 AMOXICILLIN-POT CLAVULANATE Inactive ZOFRAN 4 MG TABS 1 po q6hr PRN Nausea ZOFRAN 4 MG TABS 023902 ONDANSETRON HCL Inactive AMOXICILLIN 500 MG TABS 2 tabs twice a day for 10 days AMOXICILLIN 500 MG TABS 629821 AMOXICILLIN Inactive FLONASE ALLERGY RELIEF 50 MCG/ACT NASAL SUSP 2 sprays each nostril daily PRN allergies FLONASE ALLERGY RELIEF 50 MCG/ACT NASAL SUSP 4642114 FLUTICASONE PROPIONATE Inactive HYDROCODONE-ACETAMINOPHEN 5-325 MG TABS 1/2 to 1 po q 4 hours prn pain 11/06 HYDROCODONE-ACETAMINOPHEN 5-325 MG TABS 594072 HYDROCODONE- ACETAMINOPHEN Inactive AMOXICILLIN 500 MG CAPS 2 po BID x 10 days AMOXICILLIN 500 MG CAPS 872554 AMOXICILLIN Inactive AMOXICILLIN 875 MG TABS 1 tab by mouth twice daily AMOXICILLIN 875 MG TABS 327762 AMOXICILLIN Inactive AMOXICILLIN 500 MG CAPS 2 po BID x 10 days AMOXICILLIN 500 MG CAPS 507585 AMOXICILLIN Inactive AMOXICILLIN 500 MG CAPS 2 po BID x 10 days AMOXICILLIN 500 MG CAPS 622541 AMOXICILLIN Inactive AUGMENTIN 875-125 MG TAB 1 tab by mouth twice daily with food AUGMENTIN 875-125 MG TAB 580504 AMOXICILLIN-POT CLAVULANATE Inactive LEVAQUIN 500 MG TABS 1 pill by mouth daily LEVAQUIN 500 MG TABS 091917 LEVOFLOXACIN Inactive AMOXICILLIN 500 MG CAPS 2 po BID x 10 days AMOXICILLIN 500 MG CAPS 759052 AMOXICILLIN Inactive AMOXICILLIN 500 MG CAPS 1 cap by mouth three times a day AMOXICILLIN 500 MG CAPS 793656 AMOXICILLIN Inactive AUGMENTIN 875-125 MG TAB 1 po BID x 10 days AUGMENTIN 875-125 MG TAB 628885 AMOXICILLIN-POT CLAVULANATE Inactive PREDNISONE 20 MG TAB 2 po qd x 4 days PREDNISONE 20 MG TAB 956244 PREDNISONE Inactive AMOXICILLIN 500 MG TABS Take two tablets by mouth every 12 hours for 10 days AMOXICILLIN 500 MG TABS 865320 AMOXICILLIN Inactive Advance Directives Directive Description Start Date PERMISSION TO SHARE Immunizations Vaccine Administration Date Value Standard Description Seasonal influenza vaccine, injectable, preservative free, for > 3 years old ( Afluria, FluLaval, Fluzone, Fluvirin, Fluarix, Agriflu(>=18 yo)) Fluzone preservative free (>=3 yrs.) [DEQ233] Influenza, seasonal, injectable, preservative free Adacel (Tetanus, reduced Diphtheria, and acellular Pertussis Immunization) Adacel [NRQ156] tetanus toxoid, reduced diphtheria toxoid, and acellular [...] Panel - Chemistry sodium, serum 137 mmol/L [phone]/08/14 carbon dioxide, venous blood 29.7 mmol/L 21.0-32.0 potassium, serum 4.3 mmol/L 3.5-5.2 chloride, serum 99 mmol/L 98-107 blood glucose 123 mg/dL 65-110 urea nitrogen, blood 12 mg/dL 7-18 creatinine, serum 0.84 mg/dL 0.60-1.30 alanine aminotransferase (SGPT), serum 48 U/L 12-78 aspartate aminotransferase (SGOT), serum 26 U/L 15-37 calcium, serum 9.4 mg/dL 8.5-10.1 bilirubin, serum, total 1.60 mg/dL 0.00-1.00 cholesterol, serum 141 mg/dL 983-424 0023/08/14 triglyceride, serum, fasting 54 mg/dL 30-200 HDL [...] semiquantitative 6.0 5.0-8.5 Lab Report: VITAMIN D, [id number] - Chemistry vitamin D 25-hydroxy, serum 18 ng/mL 30-100 Encounters Code Encounter Date Provider Facility CPT-88955 Level 3 Est. [facility]22:[facility] Est[facility] Patient 16:06:03 CDT Manish Castrejon [facility]-72420 Level 3 Est. Patient 09:57:24 CDT Manish Castrejon [facility] CPT-44736 Level 3 Est. Patient 16:31:04 CDT Иван Mooney MD [facility] CPT-06007 Level 4 Est. Patient 12:02:18 CDT Hector Love MD [facility] CPT-49633 Level 3 Est. Patient 16:14:45 CDT Hector Love MD [facility] CPT-05726 Level 3 Est. Patient 16:53:35 CDT Иван Mooney MD [facility] CPT-89389 Level 3 Est. Patient 15:57:13 CDT Martha Montejo [facility] [place] CPT-36345 Level 3 Est. Patient 14:30:47 APPLICATION DEVELOPER Hector Love MD [facility] CPT-48772 Level 3 Est. Patient 14:50:45 CDT Hector Love MD [facility] CPT-43996 Level 3 Est. Patient 21:17:30 CDT Jen Crystal MD PhD [facility] CPT-59638 Level 3 Est. Patient 09:32:55 CDT Hector Love MD [facility] CPT-33748 Level 3 Est. Patient 15:11:08 APPLICATION DEVELOPER Иван Mooney MD [facility] CPT-42998 Level 3 Est. Patient 16:38:53 APPLICATION DEVELOPER Hector Love MD [facility] CPT-62746 Level 3 Est. Patient 15:46:05 CDT Hector Love MD [facility] CPT-97604 Level 3 Est. Patient 13:59:39 CDT Hector Love MD [facility] CPT-50904 Level 3 Est. Patient 14:44:46 APPLICATION DEVELOPER Hector Love MD [facility] CPT-84835 Level 3 Est. Patient 17:12:27 CDT Hector Love MD [facility] CPT-79463 Level 3 Est. Patient 15:30:32 CDT Hector Love MD [facility] CPT-90462 Level 3 Est. Patient 14:24:52 CDT Иван Mooney MD [facility] CPT-91634 Level 3 Est. Patient 14:08:38 APPLICATION DEVELOPER Hector Love MD [facility] Procedures Code Procedure Name Date Entry Date Standard Description CPT-85889 Venipuncture Draw Fee 16:18:26 CDT CPT-43062 TB Skin Test 09:57:25 CDT CPT-000 Give Appropriate Flu Vaccine 16:22:23 APPLICATION DEVELOPER CPT-76518 Free T4 - LAB USE ONLY 11:38:58 CDT CPT-37055 TSH - LAB USE ONLY 11:38:58 CDT CPT-93922 Venipuncture Draw Fee 11:38:58 CDT CPT-20345 Fluzone Quadrivalent Intramuscular Suspension 0.5 ML 16: 12:26 APPLICATION DEVELOPER CPT-83321 Immunization Single Admin 16:12:26 APPLICATION DEVELOPER CPT-J0561 Bicillin LA 1,200,000 u (PCN G Benzathine) 16:40:23 CDT CPT-84231 Abx/Therapy Injection 16:40:22 CDT CPT-J0561 Bicillin LA 1,200,000 u (PCN G Benzathine) 16:15:35 CDT CPT-23310 Immunization Single Admin 16:11:28 APPLICATION DEVELOPER CPT-79682 Fluzone Quadrivalent Intramuscular Suspension 0.5 ML 16: 11:28 APPLICATION DEVELOPER CPT-64484 Administration single or combination vaccine inc oral 13 :57:23 CDT CPT-75922 Menactra Intramuscular Injectable 13:57:23 CDT CPT-57507 First Vx Component - Ix admin via ID IM or jet inj without physician counseling 16:42:17 APPLICATION DEVELOPER CPT-91710 Fluzone preservative free (>=3 yrs.) 16:42:17 APPLICATION DEVELOPER 06/03 CPT-56509 Venipuncture Draw Fee 16:29:01 CDT CPT-49730 Chest 2V Frontal and Lat 16:23:56 CDT CPT-74643 Administration single or combination vaccine inc oral 13 :39:17 APPLICATION DEVELOPER CPT-86371 Tdap 13:39:17 APPLICATION DEVELOPER
--- OUTSIDE RECORDS SUMMARY | 2017-11-06 01:41 | XMS REPORT | Clinical Summary ---
Author Author Admin, LAMBERT Organization [facility] Address Unknown Phone Unavailable Allergies, Adverse [...] MG CAPS 1 po qd CETIRIZINE HCL 01385598546 Active Hector Love MD Active PROGRAF 1 MG CAPS 2 tabs po bid TACROLIMUS 06525417990 Active Hector Love MD Active AMOXICILLIN 500 MG TABS 2 tabs twice a day for 10 days AMOXICILLIN 46337869365 Active Иван Mooney MD Active ZOFRAN 4 MG TABS 1 po q6hr PRN Nausea ONDANSETRON HCL 23162275500 No Longer Active Ramona Diggs LPN Active AMOXICILLIN 500 MG CAPS 2 po BID x 10 days AMOXICILLIN 71964365323 No Longer Active Martha Montejo APRN Active AUGMENTIN 875-125 MG TAB 1 tab by mouth twice daily with food AMOXICILLIN-POT CLAVULANATE 31587119212 No Longer Active Hector Love MD Active FLONASE 50 MCG/ACT SUSP 2 puffs in each nostril daily PRN Allergies FLUTICASONE PROPIONATE 58201812143 Active Hector Love MD Active LEVAQUIN 500 MG TABS 1 pill by mouth daily LEVOFLOXACIN 62647433301 No Longer Active Jen Crystal MD PhD Active LISINOPRIL 5 MG TABS 1.5 tab qd LISINOPRIL 34316185741 Active Jen Crystal MD PhD Active KETOCONAZOLE 2 % CREA apply twice a day to rash KETOCONAZOLE 80870899512 No Longer Active Hector Love MD Active AUGMENTIN 875-125 MG TAB 1 tab by mouth twice daily with food AMOXICILLIN-POT CLAVULANATE 96819613019 No Longer Active Иван Mooney MD Active LOTRISONE 0.05-1 % CREAM Apply twice a day to affected area 07/19 CLOTRIMAZOLE-BETAMETHASONE 69048050919 No Longer Active Иван Mooney MD Active FEXOFENADINE HCL 180 MG TABS 1 Daily FEXOFENADINE HCL 03880137146 No Longer Active Hector Love MD Active PROGRAF 0.5 MG CAPS Take one by mouth daily with 1 mg TACROLIMUS 71919525507 No Longer Active Hector Love MD Active AMOXICILLIN 500 MG CAPS 2 po BID x 10 days AMOXICILLIN 31612143504 No Longer Active Hector Love MD Active RAPAMUNE 1 MG TABS 3 tabs in the am SIROLIMUS 93560125832 No Longer Active Hector Love MD Active AMOXICILLIN 500 MG CAPS 2 po BID x 10 days AMOXICILLIN 94320170060 No Longer Active Hector Love MD Active LORTAB 5 5-500 MG TABS 1/2 to 1 tablet by mouth every 4 hours as needed for pain HYDROCODONE-ACETAMINOPHEN 87936282640 No Longer Active Hector Love MD Active FLUTICASONE PROPIONATE 50 MCG/ACT SUSP INSTILL 2 SPRAYS IN EACH NOSTRIL Q D FLUTICASONE PROPIONATE 77876910112 No Longer Active Hector Love MD Active PROGRAF 1 MG CAPS 1 po bid TACROLIMUS 28383287911 No Longer Active Hector Love MD Active AMOXICILLIN 875 MG TABS 1 tab by mouth twice daily AMOXICILLIN 85516815338 No Longer Active Hector Love MD Active AMOXICILLIN 500 MG CAPS 2 po BID x 10 days AMOXICILLIN 72014396398 No Longer Active Hector Love MD Active AUGMENTIN 875-125 MG TAB 1 tab by mouth twice daily with food AMOXICILLIN-POT CLAVULANATE 30736372886 No Longer Active Hector Love MD Active AZITHROMYCIN 250 MG TABS 2 po qd x 1 day, then 1 po qd x 4 days AZITHROMYCIN 10441041094 No Longer Active Hector Love MD Active CETIRIZINE HCL 10 MG TABS 1 PO Q D CETIRIZINE HCL 28206932157 No Longer Active [place] Active PROGRAF 1 MG CAPS 1 po bid PROGRAF 1 MG CAPS 088878 TACROLIMUS Inactive FLUTICASONE PROPIONATE 50 MCG/ACT SUSP INSTILL 2 SPRAYS IN EACH NOSTRIL Q D FLUTICASONE PROPIONATE 50 MCG/ACT SUSP 136640 FLUTICASONE PROPIONATE Inactive LORTAB 5 5-500 MG TABS 1/2 to 1 tablet by mouth every 4 hours as needed for pain LORTAB 5 5-500 MG TABS HYDROCODONE- ACETAMINOPHEN Inactive RAPAMUNE 1 MG TABS 3 tabs in the am RAPAMUNE 1 MG TABS 332927 SIROLIMUS Inactive PROGRAF 0.5 MG CAPS Take one by mouth daily with 1 mg PROGRAF 0.5 MG CAPS 321178 TACROLIMUS Inactive FEXOFENADINE HCL 180 MG TABS 1 Daily FEXOFENADINE HCL 180 MG TABS 346618 FEXOFENADINE HCL Inactive LOTRISONE 0.05-1 % CREAM Apply twice a day to affected area 07/19 LOTRISONE 0.05-1 % CREAM 033511 CLOTRIMAZOLE-BETAMETHASONE Inactive KETOCONAZOLE 2 % CREA apply twice a day to rash KETOCONAZOLE 2 % CREA 303835 KETOCONAZOLE Inactive AUGMENTIN 875-125 MG TAB 1 tab by mouth twice daily with food AUGMENTIN 875-125 MG TAB 949915 AMOXICILLIN-POT CLAVULANATE Inactive ZOFRAN 4 MG TABS 1 po q6hr PRN Nausea ZOFRAN 4 MG TABS 657958 ONDANSETRON HCL Inactive AMOXICILLIN 500 MG CAPS 2 po BID x 10 days AMOXICILLIN 500 MG CAPS 875182 AMOXICILLIN Inactive AMOXICILLIN 875 MG TABS 1 tab by mouth twice daily AMOXICILLIN 875 MG TABS 517890 AMOXICILLIN Inactive AMOXICILLIN 500 MG CAPS 2 po BID x 10 days AMOXICILLIN 500 MG CAPS 970004 AMOXICILLIN Inactive AMOXICILLIN 500 MG CAPS 2 po BID x 10 days AMOXICILLIN 500 MG CAPS 912655 AMOXICILLIN Inactive AUGMENTIN 875-125 MG TAB 1 tab by mouth twice daily with food AUGMENTIN 875-125 MG TAB 095704 AMOXICILLIN-POT CLAVULANATE Inactive LEVAQUIN 500 MG TABS 1 pill by mouth daily LEVAQUIN 500 MG TABS 319512 LEVOFLOXACIN Inactive AMOXICILLIN 500 MG CAPS 2 po BID x 10 days AMOXICILLIN 500 MG CAPS 899169 AMOXICILLIN Inactive Advance Directives Directive Description Start Date PERMISSION TO SHARE Immunizations Vaccine Administration Date Value Standard Description Seasonal influenza vaccine, injectable, preservative free, for > 3 years old ( Afluria, FluLaval, Fluzone, Fluvirin, Fluarix, Agriflu(>=18 yo)) Fluzone preservative free (>=3 yrs.) [BOY720] Influenza, seasonal, injectable, preservative free Adacel (Tetanus, reduced Diphtheria, and acellular Pertussis Immunization) Adacel [JLA877] tetanus toxoid, reduced diphtheria toxoid, and acellular [...] Negative Encounters Code Encounter Date Provider Facility CPT-97434 Level 3 Est. Patient 16:14:45 CDT Hector Love MD [facility] CPT-39733 Level 3 Est. Patient 16:53:35 CDT Иван Mooney MD [facility] CPT-54687 Level 3 Est. Patient 15:57:13 CDT Martha Montejo APRN [facility] CPT-09862 Level 3 Est. Patient 14:30:47 DOSIER OPERATOR Hector Love MD [facility] CPT-45578 Level 3 Est. Patient 14:50:45 CDT Hector Love MD [facility] CPT-11294 Level 3 Est. Patient 21:17:30 CDT Jen Crystal MD PhD [facility] CPT-16691 Level 3 Est. Patient 09:32:55 CDT Hector Love MD [facility] CPT-79226 Level 3 Est. Patient 15:11:08 DOSIER OPERATOR Иван Mooney MD [facility] CPT-87996 Level 3 Est. Patient 16:38:53 DOSIER OPERATOR Hector Love MD [facility] CPT-13822 Level 3 Est. Patient 15:46:05 CDT Hector Love MD [facility] CPT-33255 Level 3 Est. Patient 13:59:39 CDT Hector Love MD [facility] CPT-88250 Level 3 Est. Patient 14:44:46 DOSIER OPERATOR Hector Love MD [facility] CPT-83047 Level 3 Est. Patient 17:12:27 CDT Hector Love MD [facility] CPT-68862 Level 3 Est. Patient 15:30:32 CDT Hector Love MD [facility] CPT-17665 Level 3 Est. Patient 14:24:52 CDT Иван Mooney MD [facility] CPT-46832 Level 3 Est. Patient 14:08:38 DOSIER OPERATOR Hector Love MD [facility] Procedures Code Procedure Name Date Entry Date Standard Description CPT-J0561 Bicillin LA 1,200,000 u (PCN G Benzathine) 16:15:35 CDT CPT-54025 Immunization Single Admin 16:11:28 DOSIER OPERATOR CPT-56813 Fluzone Quadrivalent Intramuscular Suspension 0.5 ML 16: 11:28 DOSIER OPERATOR CPT-53815 Administration single or combination vaccine inc oral 13 :57:23 CDT CPT-92552 Menactra Intramuscular Injectable 13:57:23 CDT CPT-00246 First Vx Component - Ix admin via ID IM or jet inj without physician counseling 16:42:17 DOSIER OPERATOR CPT-34478 Fluzone preservative free (>=3 yrs.) 16:42:17 DOSIER OPERATOR 06/03 CPT-24576 Venipuncture Draw Fee 16:29:01 CDT CPT-17992 Chest 2V Frontal and Lat 16:23:56 CDT CPT-21865 Administration single or combination vaccine inc oral 13 :39:17 DOSIER OPERATOR CPT-91746 Tdap 13:39:17 DOSIER OPERATOR
--- OUTSIDE RECORDS SUMMARY | 2017-11-06 01:41 | XMS REPORT | Continuity of Care Document ---
Author Author [facility] Organization [facility] Address [address] [place] [address] Phone Unavailable Care Team Providers Care Certified Health Education Specialist Name Role Phone TRINI FRAIRE PCP tel: Insurance Providers Payer Name Policy Number Subscriber Name Relationship [facility] [address] [id number] Nitin Smith 18 Self / Same As Patient Advance Directives Directive Response Recorded Date/Time Living Will No 03/30/12 10:55am Advance Directives No 01/26/13 3:23pm Advance Directive on File No 10/04/16 2:29am Durable POA for HC No 10/04/16 2:29am Power of Conduit Reamer Operator No 10/04/16 2:29am Organ Donor No 10/04/16 2:29am Living Will No 10/04/16 2:29am Chief Complaint and Reason for Visit Chief Complaint Skin Rash/Abscess Reason for Visit Cellulitis and abscess of trunk Problems Active Problems Medical Problem Onset Date Status Cellulitis [...] Every Eight Hours for Cough 20 06/11/16 Cetirizine Hcl 10 Mg 10 Mg Oral Once A Day for Allergies 10/04/16 Amoxicillin 500 Mg 500 Mg Oral Three Times A Day 15 Days 10/04/16 Past Home Medications Medication Directions Ordered Status [...] Response Recorded Date/Time Smoking Status Never smoker 10/04/2016 2:29am Smoked in the last 12 months? No 10/04/2016 2:29am Do you dip or chew tobacco? No 10/04/2016 2:29am Approx how many cigs per day? 0 10/04/2016 2:29am Level of Dependence Low 10/04/2016 2:29am Former smoker, last day smoked? NEVER 10/04/2016 2:29am Query Response Start Date Stop Date Smoking Status Never smoker Hospital Discharge Instructions No hospital discharge instructions. Plan of Care Discharge Date 10/04/16 3:05am Disposition 01 D/C HOME Condition at Discharge Stable Instructions/Education Provided Acute Rash (GEN) Forms Provided ER Discharge Phone Call Check Prescriptions See Medication Section Referrals TRINI FRAIRE W - Additional Instructions/Education Take the amoxicilin until gone. If you develope a fever over 100, be checked again. The rash may take a week to clear entirely. Reference Links Reference Text TICK BITE OVERVIEW There are many different types of ticks in the [place], some of which are capable of transmitting infections. The risk of developing these infections depends upon the geographic location, season of the year, type of tick, and, for Lyme disease, how long the tick was attached to the skin. While many people are concerned after being bitten by a tick, the risk of acquiring a tick-borne infection is quite low, even if the tick has been attached, fed, and is actually carrying an infectious agent. Ticks transmit infection only after they have attached and then taken a blood meal from their new host. A tick that has not attached (and therefore has not yet become engorged from its blood meal) has not passed any infection. Since the deer tick that transmits Lyme disease must feed for >36 hours before transmission of the spirochete, the risk of acquiring Lyme disease from an observed tick bite, for example, is only 1.2 to 1.4 percent, even in an area where the disease is common. The organism that causes Lyme disease, Borrelia burgdorferi, lies dormant in the inner aspect of the tick's midgut. The organism becomes active only after exposure to the warm blood meal entering the tick's gut. Once active, the organism enters the tick's salivary glands. As the tick feeds, it must get rid of excess water through the salivary glands. Thus, the tick will literally salivate organisms into the wound, thereby passing the infection to the host. If a person is bitten by a deer tick (the type of tick that carries Lyme disease), a healthcare provider will likely advise one of two approaches: ?Observe and treat if signs or symptoms of infection develop ?Treat with a preventive antibiotic immediately There is no benefit of blood testing for Lyme disease at the time of the tick bite; even people who become infected will not have a positive blood test until approximately two to six weeks after the infection develops (post-tick bite). The history of the tick bite will largely determine which of these options is chosen. Before seeking medical attention, the affected person or household member should carefully remove the tick and make note of its appearance (picture 1). Only the Ixodes species of tick, also known as the deer tick, causes Lyme disease. HOW TO REMOVE A TICK The proper way to remove a tick is to use a set of fine tweezers and charger operator the tick as close to the skin as is possible. Do not use a smoldering match or cigarette, nail italian, petroleum jelly (eg, Vaseline), liquid soap, or kerosene because they may irritate the tick and cause it to behave like a syringe, injecting bodily fluids into the wound. The proper technique for tick removal includes the following: ?Use fine tweezers to grasp the tick as close to the skin surface as possible. ?Pull backwards gently but firmly, using an even, steady pressure. Do not jerk or twist. ?Do not squeeze, crush, or puncture the body of the tick, since its bodily fluids may contain infection-causing organisms. ?After removing the tick, wash the skin and hands thoroughly with soap and water. ?If any mouth parts of the tick remain in the skin, these should be left alone; they will be expelled on their own. Attempts to remove these parts may result in significant skin trauma. AFTER THE TICK IS REMOVED Tick characteristics It is helpful if the person can provide information about the size of the tick, whether it was actually attached to the skin, if it was engorged (that is, full of blood), and how long it was attached. ?The size and color of the tick help to determine what kind of tick it was ( picture 1 and figure 1); ?Ticks that are brown and approximately the size of a poppy seed or pencil point are deer ticks. These can transmit Borrelia burgdorferi (the bacterium that causes Lyme disease) and a number of other tick-borne infections, including babesiosis and anaplasmosis. Borrelia burgdorferi infected deer ticks live primarily in the northeast and mid[place] region ([place] to [place]) and in the midwest ([place] and [place]) region of the [facility], and less commonly in the western ([facility]). ?Ticks that are brown with a white collar and about the size of a pencil eraser are more likely to be dog ticks (Dermacentor species). These ticks do not carry Lyme disease, but can rarely carry another tick-borne infection called [place] spotted fever that can be serious or even fatal. ?A brown to black tick with a white splotch on its back is likely a female Amblyomma americanum (Mccomb tick; named after the white splotch) (picture 2 ). This species of tick has been reported to spread an illness called STARI (southern tick-associated rash illness). STARI causes a rash that is similar to the erythema migrans rash, but without the other features of Lyme disease. Although this rash is thought to be caused by an infection, a cause for the infection has not yet been identified. This type of tick can also carry and transmit another infection called human monocytic ehrlichiosis. ?A tick that was not attached, was easy to remove or just walking on the skin, and was still flat and tiny and not full of blood when it was removed could not have transmitted Lyme disease or any other infection since it had not yet taken a blood meal. ?Only ticks that are attached and have finished feeding or are near the end of their meal can transmit Lyme disease. After arriving on the skin, the tick that spreads Lyme disease usually takes 24 hours before feeding begins. ?Even if a tick is attached, it must have taken a blood meal to transmit Lyme disease. At least 36 to 48 hours of feeding is required for a tick to have fed and then transmit the bacterium that causes Lyme disease. After this amount of time, the tick will be engorged (full of blood). An engorged tick has a globular shape and is larger than an unengorged one. ?It is not clear how long a tick needs to be attached to transmit bacteria other than Borrelia burgdorferi. Need for treatment The clinician will review the description of the tick, along with any physical symptoms, to decide upon a course of action. The Infectious Diseases Society of [place] (IDSA) recommends preventive treatment with antibiotics only in people who meet ALL of the following criteria: ?Attached tick identified as an adult or nymphal I. scapularis (deer) tick ?Tick is estimated to have been attached for=36 hours (based upon how engorged the tick appears or the amount of time since outdoor exposure) ?The antibiotic can be given within 72 hours of tick removal Functional Status Query Response Date Recorded Activities of Daily Living Performs w/o Assistance June 12, 2016 9:29pm Allergies, Adverse Reactions, Alerts Allergen Type Severity Reaction Status Last Updated Promethazine Allergy Unknown Active 08/13/12 Ceftriaxone Allergy Unknown Active 08/13/12 ERYTHROMYCIN Allergy Unknown Active 04/28/12 TAPE Allergy Intermediate RASH Active 06/11/16 Immunizations No immunization records. Vital Signs Acute Vital Signs Vital Response Date/Time Temperature (Fahrenheit) 97.6 degrees F (97.6 - 99.5) 10/04/2016 2:47am Temperature (Calculated Celsius) 36.46802 degrees C (36.4 - 37.5) 10/04/2016 2:47am Temperature Source Tympanic 10/04/2016 2:47am Pulse Pulse Ox Pulse Rate (adult) 91 beats per minute (60 - 90) 10/04/2016 2:47am Pulse Location Modifier Right 10/04/2016 2:47am Oxygen Saturation Respiratory Rate 18 breaths per minute (12 - 24) 10/04/2016 2:47am O2 Sat by Pulse Oximetry 97 % (90 - 100) 10/04/2016 2:47am Blood Pressure 119/68 mm Hg 10/04/2016 2:47am Blood Pressure Mean 85 mm Hg 10/04/2016 2:47am Height 5 ft 11 in Weight 235 lb Body Mass Index 32.8 kg/m^2 Results Pending Laboratory Results Test Name Collection Date/Time Procedures Procedure Status Date Provider(s) CHEST X-RAY 2VW FRONTAL&LATL Completed 06/11/16 EMERGENCY DEPT VISIT Completed 06/11/16 EMERGENCY DEPT VISIT Completed 06/11/16 ROUTINE VENIPUNCTURE Completed 06/12/16 COMPREHEN METABOLIC PANEL Completed 06/12/16 COMPLETE CBC W/AUTO DIFF WBC Completed 06/12/16 INFLUENZA ASSAY W/OPTIC Completed 06/12/16 INFLUENZA ASSAY W/OPTIC Completed 06/12/16 EMERGENCY DEPT VISIT Completed 06/12/16 EMERGENCY DEPT VISIT Completed 06/12/16 Encounters Encounter Location Arrival/Admit Date Discharge/Depart Date Attending Provider Departed Emergency Room [facility] 10/04/16 2:00am 10/04/16 3: 05am YRIS HERNANDEZ MD Departed Emergency Room [facility] 06/12/16 9:25pm 06/12/16 11: 10pm BELÉN ZUÑIGA Departed Emergency Room [facility] 06/11/16 1:25pm 06/11/16 2: 35pm PERI FLYNN APRN Recent Diagnosis
--- OUTSIDE RECORDS SUMMARY | 2017-11-06 01:42 | XMS REPORT | Clinical Summary ---
Author Author Admin, LAMBERT Organization [facility] Address Unknown Phone Unavailable Allergies, Adverse Reactions, [...] ICD-490 Inactive Hector Love MD 2014 Ingrown toenail ICD-703.0 Inactive Hector Love MD Ingrown toenail, right ICD-703.0 Inactive Hector Love MD Pharyngitis ICD-462 Nils Love MD Medication List Medication Instructions Start Date Stop Date Generic Name NDC Status Provider Patient Instruction AMOXICILLIN 500 MG TABS Take two tablets by mouth every 12 hours for 10 days AMOXICILLIN 71539125158 Active Иван Mooney MD Active VITAMIN C 500 MG CHEW TAB ASCORBIC ACID 06349988666 Active Иван Mooney MD Active PREDNISONE 20 MG TAB 2 po qd x 4 days PREDNISONE 33622288438 No Longer Active Hector Love MD Active HYDROCODONE-ACETAMINOPHEN 5-325 MG TABS 1/2 to 1 po q 4 hours prn pain 11/06 HYDROCODONE-ACETAMINOPHEN 08639878372 No Longer Active Hector Love MD Active FLONASE ALLERGY RELIEF 50 MCG/ACT NASAL SUSP 2 spray each nostril daily prn allergies FLUTICASONE PROPIONATE 45599183701 Active Hector Love MD Active AUGMENTIN 875-125 MG TAB 1 po BID x 10 days AMOXICILLIN-POT CLAVULANATE 78588585451 No Longer Active Hector Love MD Active FLONASE ALLERGY RELIEF 50 MCG/ACT NASAL SUSP 2 sprays each nostril daily PRN allergies FLUTICASONE PROPIONATE 30036514716 No Longer Active Hector Love MD Active AMOXICILLIN 500 MG CAPS 1 cap by mouth three times a day AMOXICILLIN 26817548620 No Longer Active Jillina Frazell RADHA Active KEFLEX 500 MG CAP 1 tab po tid CEPHALEXIN 19446642334 No Longer Active Jillina Frazell [employer] Active AMOXICILLIN 500 MG TABS 2 tabs twice a day for 10 days AMOXICILLIN 21814056324 No Longer Active Jillina Frazell [employer] Active ZYRTEC ALLERGY 10 MG CAPS 1 po qd CETIRIZINE HCL 76383254820 Active Hector Love MD Active PROGRAF 1 MG CAPS 2 tabs po bid TACROLIMUS 52209922083 Active Hector Love MD Active ZOFRAN 4 MG TABS 1 po q6hr PRN Nausea ONDANSETRON HCL 67553102870 No Longer Active Ramona Diggs LPN Active AMOXICILLIN 500 MG CAPS 2 po BID x 10 days AMOXICILLIN 15999405267 No Longer Active Martha Montejo APRN Active AUGMENTIN 875-125 MG TAB 1 tab by mouth twice daily with food AMOXICILLIN-POT CLAVULANATE 12316424834 No Longer Active Hector Love MD Active LEVAQUIN 500 MG TABS 1 pill by mouth daily LEVOFLOXACIN 54186538698 No Longer Active Jen Crystal MD PhD Active LISINOPRIL 5 MG TABS 1.5 tab qd LISINOPRIL 67105082956 Active Jen Crystal MD PhD Active KETOCONAZOLE 2 % CREA apply twice a day to rash KETOCONAZOLE 29160718965 No Longer Active Hector Love MD Active AUGMENTIN 875-125 MG TAB 1 tab by mouth twice daily with food AMOXICILLIN-POT CLAVULANATE 60369061735 No Longer Active Иван Mooney MD Active LOTRISONE 0.05-1 % CREAM Apply twice a day to affected area 07/19 CLOTRIMAZOLE-BETAMETHASONE 12825569651 No Longer Active Иван Mooney MD Active FEXOFENADINE HCL 180 MG TABS 1 Daily FEXOFENADINE HCL 51973475616 No Longer Active Hector Love MD Active PROGRAF 0.5 MG CAPS Take one by mouth daily with 1 mg TACROLIMUS 30086200041 No Longer Active Hector Love MD Active AMOXICILLIN 500 MG CAPS 2 po BID x 10 days AMOXICILLIN 94294981892 No Longer Active Hector Love MD Active RAPAMUNE 1 MG TABS 3 tabs in the am SIROLIMUS 61439683894 No Longer Active Hector Love MD Active AMOXICILLIN 500 MG CAPS 2 po BID x 10 days AMOXICILLIN 27349628271 No Longer Active Hector Love MD Active LORTAB 5 5-500 MG TABS 1/2 to 1 tablet by mouth every 4 hours as needed for pain HYDROCODONE-ACETAMINOPHEN 13391742108 No Longer Active Hector Love MD Active FLUTICASONE PROPIONATE 50 MCG/ACT SUSP INSTILL 2 SPRAYS IN EACH NOSTRIL Q D FLUTICASONE PROPIONATE 50150976292 No Longer Active Hector Love MD Active PROGRAF 1 MG CAPS 1 po bid TACROLIMUS 00680216484 No Longer Active Hector Love MD Active AMOXICILLIN 875 MG TABS 1 tab by mouth twice daily AMOXICILLIN 92245750703 No Longer Active Hector Loev MD Active AMOXICILLIN 500 MG CAPS 2 po BID x 10 days AMOXICILLIN 13720550272 No Longer Active Hector Love MD Active AUGMENTIN 875-125 MG TAB 1 tab by mouth twice daily with food AMOXICILLIN-POT CLAVULANATE 38853688208 No Longer Active Hector Love MD Active AZITHROMYCIN 250 MG TABS 2 po qd x 1 day, then 1 po qd x 4 days AZITHROMYCIN 51841015614 No Longer Active Hector Love MD Active CETIRIZINE HCL 10 MG TABS 1 PO Q D CETIRIZINE HCL 28479404755 No Longer Active [place] Active PROGRAF 1 MG CAPS 1 po bid PROGRAF 1 MG CAPS 977542 TACROLIMUS Inactive FLUTICASONE PROPIONATE 50 MCG/ACT SUSP INSTILL 2 SPRAYS IN EACH NOSTRIL Q D FLUTICASONE PROPIONATE 50 MCG/ACT SUSP 7119470 FLUTICASONE PROPIONATE Inactive LORTAB 5 5-500 MG TABS 1/2 to 1 tablet by mouth every 4 hours as needed for pain LORTAB 5 5-500 MG TABS HYDROCODONE- ACETAMINOPHEN Inactive RAPAMUNE 1 MG TABS 3 tabs in the am RAPAMUNE 1 MG TABS 819280 SIROLIMUS Inactive PROGRAF 0.5 MG CAPS Take one by mouth daily with 1 mg PROGRAF 0.5 MG CAPS 288378 TACROLIMUS Inactive FEXOFENADINE HCL 180 MG TABS 1 Daily FEXOFENADINE HCL 180 MG TABS 292689 FEXOFENADINE HCL Inactive LOTRISONE 0.05-1 % CREAM Apply twice a day to affected area 07/19 LOTRISONE 0.05-1 % CREAM 237903 CLOTRIMAZOLE-BETAMETHASONE Inactive KETOCONAZOLE 2 % CREA apply twice a day to rash KETOCONAZOLE 2 % CREA 598510 KETOCONAZOLE Inactive AUGMENTIN 875-125 MG TAB 1 tab by mouth twice daily with food AUGMENTIN 875-125 MG TAB 224828 AMOXICILLIN-POT CLAVULANATE Inactive ZOFRAN 4 MG TABS 1 po q6hr PRN Nausea ZOFRAN 4 MG TABS 022996 ONDANSETRON HCL Inactive AMOXICILLIN 500 MG TABS 2 tabs twice a day for 10 days AMOXICILLIN 500 MG TABS 744820 AMOXICILLIN Inactive FLONASE ALLERGY RELIEF 50 MCG/ACT NASAL SUSP 2 sprays each nostril daily PRN allergies FLONASE ALLERGY RELIEF 50 MCG/ACT NASAL SUSP 2192032 FLUTICASONE PROPIONATE Inactive HYDROCODONE-ACETAMINOPHEN 5-325 MG TABS 1/2 to 1 po q 4 hours prn pain 11/06 HYDROCODONE-ACETAMINOPHEN 5-325 MG TABS 710924 HYDROCODONE- ACETAMINOPHEN Inactive AMOXICILLIN 500 MG CAPS 2 po BID x 10 days AMOXICILLIN 500 MG CAPS 927632 AMOXICILLIN Inactive AMOXICILLIN 875 MG TABS 1 tab by mouth twice daily AMOXICILLIN 875 MG TABS 503778 AMOXICILLIN Inactive AMOXICILLIN 500 MG CAPS 2 po BID x 10 days AMOXICILLIN 500 MG CAPS 304129 AMOXICILLIN Inactive AMOXICILLIN 500 MG CAPS 2 po BID x 10 days AMOXICILLIN 500 MG CAPS 563080 AMOXICILLIN Inactive AUGMENTIN 875-125 MG TAB 1 tab by mouth twice daily with food AUGMENTIN 875-125 MG TAB 273130 AMOXICILLIN-POT CLAVULANATE Inactive LEVAQUIN 500 MG TABS 1 pill by mouth daily LEVAQUIN 500 MG TABS 962874 LEVOFLOXACIN Inactive AMOXICILLIN 500 MG CAPS 2 po BID x 10 days AMOXICILLIN 500 MG CAPS 990648 AMOXICILLIN Inactive AMOXICILLIN 500 MG CAPS 1 cap by mouth three times a day AMOXICILLIN 500 MG CAPS 863711 AMOXICILLIN Inactive AUGMENTIN 875-125 MG TAB 1 po BID x 10 days AUGMENTIN 875-125 MG TAB 628271 AMOXICILLIN-POT CLAVULANATE Inactive PREDNISONE 20 MG TAB 2 po qd x 4 days PREDNISONE 20 MG TAB 548520 PREDNISONE Inactive Advance Directives Directive Description Start Date PERMISSION TO SHARE Immunizations Vaccine Administration Date Value Standard Description Seasonal influenza vaccine, injectable, preservative free, for > 3 years old ( Afluria, FluLaval, Fluzone, Fluvirin, Fluarix, Agriflu(>=18 yo)) Fluzone preservative free (>=3 yrs.) [WNT455] Influenza, seasonal, injectable, preservative free Adacel (Tetanus, reduced Diphtheria, and acellular Pertussis Immunization) Adacel [[id number]] tetanus toxoid, reduced diphtheria toxoid, and acellular [...] 0.76-1.46 Encounters Code Encounter Date Provider Facility CPT-37273 Level 3 Est. Patient 16:31:04 CDT Иван Mooney MD [facility] CPT-36780 Level 4 Est. Patient 12:02:18 CDT Hecotr Love MD [facility] CPT-46143 Level 3 Est. Patient 16:14:45 CDT Hector Love MD [facility] CPT-25579 Level 3 Est. Patient 16:53:35 CDT Иван Mooney MD [facility] CPT-43827 Level 3 Est. Patient 15:57:13 CDT Martha Escalantestephen GARCIA [facility] CPT-28946 Level 3 Est. Patient 14:30:47 COLLABORATIVE PHYSICIAN Hector Love MD [facility] CPT-58798 Level 3 Est. Patient 14:50:45 CDT Hector Love MD [facility] CPT-69150 Level 3 Est. Patient 21:17:30 CDT Jen Crystal MD PhD [facility] CPT-60982 Level 3 Est. Patient 09:32:55 CDT Hector Love MD [facility] CPT-41380 Level 3 Est. Patient 15:11:08 COLLABORATIVE PHYSICIAN Иван Mooney MD [facility] CPT-01524 Level 3 Est. Patient 16:38:53 COLLABORATIVE PHYSICIAN Hector Love MD [facility] CPT-35068 Level 3 Est. Patient 15:46:05 CDT Hector Love MD [facility] CPT-81164 Level 3 Est. Patient 13:59:39 CDT Hector Love MD [facility] CPT-07349 Level 3 Est. Patient 14:44:46 COLLABORATIVE PHYSICIAN Hector Love MD [facility] CPT-60578 Level 3 Est. Patient 17:12:27 CDT Hector Love MD [facility] CPT-63584 Level 3 Est. Patient 15:30:32 CDT Hector Love MD [facility] CPT-18798 Level 3 Est. Patient 14:24:52 CDT Иван Mooney MD [facility] CPT-57313 Level 3 Est. Patient 14:08:38 COLLABORATIVE PHYSICIAN Hector Love MD [facility] Procedures Code Procedure Name Date Entry Date Standard Description CPT-000 Give Appropriate Flu Vaccine 16:22:23 COLLABORATIVE PHYSICIAN CPT-53621 Free T4 - LAB USE ONLY 11:38:58 CDT CPT-18981 TSH - LAB USE ONLY 11:38:58 CDT CPT-13539 Venipuncture Draw Fee 11:38:58 CDT CPT-16603 Fluzone Quadrivalent Intramuscular Suspension 0.5 ML 16: 12:26 COLLABORATIVE PHYSICIAN CPT-45341 Immunization Single Admin 16:12:26 COLLABORATIVE PHYSICIAN CPT-J0561 Bicillin LA 1,200,000 u (PCN G Benzathine) 16:40:23 CDT CPT-53780 Abx/Therapy Injection 16:40:22 CDT CPT-J0561 Bicillin LA 1,200,000 u (PCN G Benzathine) 16:15:35 CDT CPT-59128 Immunization Single Admin 16:11:28 COLLABORATIVE PHYSICIAN CPT-63954 Fluzone Quadrivalent Intramuscular Suspension 0.5 ML 16: 11:28 COLLABORATIVE PHYSICIAN CPT-27993 Administration single or combination vaccine inc oral 13 :57:23 CDT CPT-26012 Menactra Intramuscular Injectable 13:57:23 CDT CPT-71579 First Vx Component - Ix admin via ID IM or jet inj without physician counseling 16:42:17 COLLABORATIVE PHYSICIAN CPT-89872 Fluzone preservative free (>=3 yrs.) 16:42:17 COLLABORATIVE PHYSICIAN 06/03 CPT-94411 Venipuncture Draw Fee 16:29:01 CDT CPT-02842 Chest 2V Frontal and Lat 16:23:56 CDT CPT-48988 Administration single or combination vaccine inc oral 13 :39:17 COLLABORATIVE PHYSICIAN CPT-43797 Tdap 13:39:17 COLLABORATIVE PHYSICIAN
--- OUTSIDE RECORDS SUMMARY | 2017-11-06 01:43 | XMS REPORT | Clinical Summary ---
Author Author Admin, LAMBERT Organization [employer] Address Unknown Phone Unavailable Allergies, Adverse Reactions, [...] Gastroenteritis, viral, acute 008.8 Resolved Martha Montejo PLANT ATTENDANT Intestinal infection due to other organism, not [...] employment physical examination V70.0 Active Manish Castrejon PLANT ATTENDANT Routine general medical examination at a health care facility Exposure to mononucleosis V01.79 Active Manish Castrejon PLANT ATTENDANT Contact with or exposure to other viral diseases Stress at work V62.1 Active Jillina Frazell PLANT ATTENDANT Adverse effects of work environment FH DIABETES [...] Gastroenteritis, viral, acute ICD-008.8 Inactive Martha Montejo [employer] ATTENDANT Bronchitis ICD-490 Inactive Hector Love MD 2014 Pharyngitis ICD-462 Inactive Hector Love MD Ingrown toenail ICD-703.0 Inactive Hector Love MD Malorie rodriguez, right ICD-703.0 Inactive Hector Love MD Medication List Medication Instructions Start Date Stop Date Generic Name ND Status Provider Patient Instruction PREDNISONE 20 MG ORAL TABLET 1 tablet daily x 2 days PREDNISONE 42553942925 No Longer Active Jillina Salvatorel PLANT ATTENDANT Active AMOXICILLIN 500 MG ORAL TABLET Take two tablets by mouth every 12 hours for 10 days AMOXICILLIN 34409344559 No Longer Active Иван Mooney MD Active VITAMIN C 500 MG ORAL TABLET CHEWABLE ASCORBIC ACID 48182429012 Active Иван Mooney MD Active PREDNISONE 20 MG ORAL TABLET 2 po qd x 4 days PREDNISONE 24304356825 No Longer Active Hector Love MD Active HYDROCODONE-ACETAMINOPHEN 5-325 MG ORAL TABLET 1/2 to 1 po q 4 hours prn pain HYDROCODONE-ACETAMINOPHEN 69775833155 No Longer Active Hector Love MD Active FLONASE ALLERGY RELIEF 50 MCG/ACT NASAL SUSPENSION 2 spray each nostril daily prn allergies FLUTICASONE PROPIONATE 14515174381 Active Hector Love MD Active AUGMENTIN 875-125 MG ORAL TABLET 1 po BID x 10 days AMOXICILLIN-POT CLAVULANATE 29106115827 No Longer Active Hector Love MD Active FLONASE ALLERGY RELIEF 50 MCG/ACT NASAL SUSPENSION 2 sprays each nostril daily PRN allergies FLUTICASONE PROPIONATE 30995344046 No Longer Active Hector Love MD Active AMOXICILLIN 500 MG ORAL CAPSULE 1 cap by mouth three times a day AMOXICILLIN 11878718782 No Longer Active Jillina Lucía GARCIA Active KEFLEX 500 MG ORAL CAPSULE 1 tab po tid CEPHALEXIN 43866861802 No Longer Active Jillina Frazell PLANT ATTENDANT Active AMOXICILLIN 500 MG ORAL TABLET 2 tabs twice a day for 10 days AMOXICILLIN 04086501097 No Longer Active Jillina Frazell PLANT ATTENDANT Active ZYRTEC ALLERGY 10 MG ORAL CAPSULE 1 po qd CETIRIZINE HCL 99687127312 Active Hector Love MD Active PROGRAF 1 MG ORAL CAPSULE 2 tabs po bid TACROLIMUS 24635639201 Active Hector Love MD Active ZOFRAN 4 MG ORAL TABLET 1 po q6hr PRN Nausea ONDANSETRON HCL 98655320125 No Longer Active Ramona Diggs LPN Active AMOXICILLIN 500 MG ORAL CAPSULE 2 po BID x 10 days AMOXICILLIN 47687827381 No Longer Active Martha Montejo PLANT ATTENDANT Active AUGMENTIN 875-125 MG ORAL TABLET 1 tab by mouth twice daily with food AMOXICILLIN-POT CLAVULANATE 30984400985 No Longer Active Hector Love MD Active LEVAQUIN 500 MG ORAL TABLET 1 pill by mouth daily LEVOFLOXACIN 15289575531 No Longer Active Jen Crystal MD PhD Active LISINOPRIL 5 MG ORAL TABLET 1.5 tab qd LISINOPRIL 95171369526 Active Jen Crystal MD PhD Active KETOCONAZOLE 2 % EXTERNAL CREAM apply twice a day to rash KETOCONAZOLE 64184211954 No Longer Active Hector Love MD Active AUGMENTIN 875-125 MG ORAL TABLET 1 tab by mouth twice daily with food AMOXICILLIN-POT CLAVULANATE 56587522678 No Longer Active Иван Mooney MD Active LOTRISONE 1-0.05 % EXTERNAL CREAM Apply twice a day to affected area CLOTRIMAZOLE-BETAMETHASONE 21408187175 No Longer Active Иван Mooney MD Active FEXOFENADINE HCL 180 MG ORAL TABLET 1 Daily FEXOFENADINE HCL 22873549847 No Longer Active Hector Love MD Active PROGRAF 0.5 MG ORAL CAPSULE Take one by mouth daily with 1 mg TACROLIMUS 13192382323 No Longer Active Hector Love MD Active AMOXICILLIN 500 MG ORAL CAPSULE 2 po BID x 10 days AMOXICILLIN 45665056139 No Longer Active Hector Love MD Active RAPAMUNE 1 MG ORAL TABLET 3 tabs in the am SIROLIMUS 81038736294 No Longer Active Hector Love MD Active AMOXICILLIN 500 MG ORAL CAPSULE 2 po BID x 10 days AMOXICILLIN 35707615906 No Longer Active Hector Love MD Active LORTAB 5-500 MG ORAL TABLET 1/2 to 1 tablet by mouth every 4 hours as needed for pain HYDROCODONE-ACETAMINOPHEN 92823857354 No Longer Active Hector Love MD Active FLUTICASONE PROPIONATE 50 MCG/ACT NASAL SUSPENSION INSTILL 2 SPRAYS IN EACH NOSTRIL Q D FLUTICASONE PROPIONATE 55215333566 No Longer Active Hector Love MD Active PROGRAF 1 MG ORAL CAPSULE 1 po bid TACROLIMUS 71101850238 No Longer Active Hector Love MD Active AMOXICILLIN 875 MG ORAL TABLET 1 tab by mouth twice daily AMOXICILLIN 79111823722 No Longer Active Hector Love MD Active AMOXICILLIN 500 MG ORAL CAPSULE 2 po BID x 10 days AMOXICILLIN 49163448981 No Longer Active Hector Love MD Active AUGMENTIN 875-125 MG ORAL TABLET 1 tab by mouth twice daily with food AMOXICILLIN-POT CLAVULANATE 86292146635 No Longer Active Hector Love MD Active AZITHROMYCIN 250 MG ORAL TABLET 2 po qd x 1 day, then 1 po qd x 4 days 06/19 AZITHROMYCIN 45217787087 No Longer Active Hector Love MD Active CETIRIZINE HCL 10 MG ORAL TABLET 1 PO Q D CETIRIZINE HCL 33670263026 No Longer Active Waleska Lucasr Active PROGRAF 1 MG ORAL CAPSULE 1 po bid PROGRAF 1 MG ORAL CAPSULE 319771 TACROLIMUS Inactive FLUTICASONE PROPIONATE 50 MCG/ACT NASAL SUSPENSION INSTILL 2 SPRAYS IN EACH NOSTRIL Q D FLUTICASONE PROPIONATE 50 MCG/ACT NASAL SUSPENSION 1560384 FLUTICASONE PROPIONATE Inactive LORTAB 5-500 MG ORAL TABLET 1/2 to 1 tablet by mouth every 4 hours as needed for pain LORTAB 5-500 MG ORAL TABLET HYDROCODONE- ACETAMINOPHEN Inactive RAPAMUNE 1 MG ORAL TABLET 3 tabs in the am RAPAMUNE 1 MG ORAL TABLET 683574 SIROLIMUS Inactive PROGRAF 0.5 MG ORAL CAPSULE Take one by mouth daily with 1 mg PROGRAF 0.5 MG ORAL CAPSULE 476359 TACROLIMUS Inactive FEXOFENADINE HCL 180 MG ORAL TABLET 1 Daily FEXOFENADINE HCL 180 MG ORAL TABLET 466148 FEXOFENADINE HCL Inactive LOTRISONE 1-0.05 % EXTERNAL CREAM Apply twice a day to affected area LOTRISONE 1-0.05 % EXTERNAL CREAM 605366 CLOTRIMAZOLE- BETAMETHASONE Inactive KETOCONAZOLE 2 % EXTERNAL CREAM apply twice a day to rash KETOCONAZOLE 2 % EXTERNAL CREAM 908666 KETOCONAZOLE Inactive AUGMENTIN 875-125 MG ORAL TABLET 1 tab by mouth twice daily with food AUGMENTIN 875-125 MG ORAL TABLET 882159 AMOXICILLIN-POT CLAVULANATE Inactive ZOFRAN 4 MG ORAL TABLET 1 po q6hr PRN Nausea ZOFRAN 4 MG ORAL TABLET 074877 ONDANSETRON HCL Inactive AMOXICILLIN 500 MG ORAL TABLET 2 tabs twice a day for 10 days AMOXICILLIN 500 MG ORAL TABLET 034951 AMOXICILLIN Inactive FLONASE ALLERGY RELIEF 50 MCG/ACT NASAL SUSPENSION 2 sprays each nostril daily PRN allergies FLONASE ALLERGY RELIEF 50 MCG/ACT NASAL SUSPENSION 0966092 FLUTICASONE PROPIONATE Inactive HYDROCODONE-ACETAMINOPHEN 5-325 MG ORAL TABLET 1/2 to 1 po q 4 hours prn pain HYDROCODONE-ACETAMINOPHEN 5-325 MG ORAL TABLET 665451 HYDROCODONE-ACETAMINOPHEN Inactive PREDNISONE 20 MG ORAL TABLET 1 tablet daily x 2 days PREDNISONE 20 MG ORAL TABLET 227695 PREDNISONE Inactive AMOXICILLIN 500 MG ORAL CAPSULE 2 po BID x 10 days AMOXICILLIN 500 MG ORAL CAPSULE 165031 AMOXICILLIN Inactive AMOXICILLIN 875 MG ORAL TABLET 1 tab by mouth twice daily AMOXICILLIN 875 MG ORAL TABLET 421886 AMOXICILLIN Inactive AMOXICILLIN 500 MG ORAL CAPSULE 2 po BID x 10 days AMOXICILLIN 500 MG ORAL CAPSULE 121719 AMOXICILLIN Inactive AMOXICILLIN 500 MG ORAL CAPSULE 2 po BID x 10 days AMOXICILLIN 500 MG ORAL CAPSULE 915128 AMOXICILLIN Inactive AUGMENTIN 875-125 MG ORAL TABLET 1 tab by mouth twice daily with food AUGMENTIN 875-125 MG ORAL TABLET 370502 AMOXICILLIN-POT CLAVULANATE Inactive LEVAQUIN 500 MG ORAL TABLET 1 pill by mouth daily LEVAQUIN 500 MG ORAL TABLET 087206 LEVOFLOXACIN Inactive AMOXICILLIN 500 MG ORAL CAPSULE 2 po BID x 10 days AMOXICILLIN 500 MG ORAL CAPSULE 706798 AMOXICILLIN Inactive AMOXICILLIN 500 MG ORAL CAPSULE 1 cap by mouth three times a day AMOXICILLIN 500 MG ORAL CAPSULE 672455 AMOXICILLIN Inactive AUGMENTIN 875-125 MG ORAL TABLET 1 po BID x 10 days AUGMENTIN 875-125 MG ORAL TABLET 742344 AMOXICILLIN-POT CLAVULANATE Inactive PREDNISONE 20 MG ORAL TABLET 2 po qd x 4 days PREDNISONE 20 MG ORAL TABLET 803960 PREDNISONE Inactive AMOXICILLIN 500 MG ORAL TABLET Take two tablets by mouth every 12 hours for 10 days AMOXICILLIN 500 MG ORAL TABLET 473892 AMOXICILLIN Inactive Advance Directives Directive Description Start Date PERMISSION TO SHARE Immunizations Vaccine Administration Date Value Standard Description Seasonal influenza vaccine, injectable, preservative free, for > 3 years old ( Afluria, FluLaval, Fluzone, Fluvirin, Fluarix, Agriflu(>=18 yo)) Fluzone preservative free (>=3 yrs.) [ODJ913] Influenza, seasonal, injectable, preservative free Adacel (Tetanus, reduced Diphtheria, and acellular Pertussis Immunization) Adacel [NIX640] tetanus toxoid, reduced diphtheria toxoid, and acellular [...] Panel - Chemistry sodium, serum 137 mmol/L 295-515 9391/08/14 carbon dioxide, venous blood 29.7 mmol/L 21.0-32.0 potassium, serum 4.3 mmol/L 3.5-5.2 chloride, serum 99 mmol/L 98-107 blood glucose 123 mg/dL 65-110 urea nitrogen, blood 12 mg/dL 7-18 creatinine, serum 0.84 mg/dL 0.60-1.30 alanine aminotransferase (SGPT), serum 48 U/L 12-78 aspartate aminotransferase (SGOT), serum 26 U/L 15-37 calcium, serum 9.4 mg/dL 8.5-10.1 bilirubin, serum, total 1.60 mg/dL 0.00-1.00 cholesterol, serum 141 mg/dL 093-390 0137/08/14 triglyceride, serum, fasting 54 mg/dL 30-200 HDL [...] semiquantitative 6.0 5.0-8.5 Lab Report: VITAMIN D, 25-HYDROXY/08075 - Chemistry vitamin D 25-hydroxy, serum 18 ng/mL 30-100 Encounters Code Encounter Date Provider Facility CPT-55063 Level 3 Est. Patient 11:35:07 CDT Manish Castrejon [facility] CPT-03999 Level 3 Est. [facility] 17[facility]22[facility] Patient 16:06:03 CDT Manish Castrejon [facility] CPT-29787 Level 3 Est. Patient 09:57:24 CDT Manish Castrejon [facility] CPT-82233 Level 3 Est. Patient 16:31:04 CDT Иван Mooney MD [facility] CPT-97426 Level 4 Est. Patient 12:02:18 CDT Hector Love MD [facility] CPT-03488 Level 3 Est. Patient 16:14:45 CDT Hector Love MD [facility] CPT-28547 Level 3 Est. Patient 16:53:35 CDT Иван Mooney MD [facility] CPT-67241 Level 3 Est. Patient 15:57:13 CDT Martha Montejo RADHA [facility] CPT-97189 Level 3 Est. Patient 14:30:47 [employer] TECHNICIAN Hector Love MD [facility] CPT-62082 Level 3 Est. Patient 14:50:45 CDT Hector Love MD [facility] CPT-95346 Level 3 Est. Patient 21:17:30 CDT Jen Crystal MD PhD [facility] CPT-82165 Level 3 Est. Patient 09:32:55 CDT Hector Love MD [facility] CPT-34399 Level 3 Est. Patient 15:11:08 [employer] TECHNICIAN Иван Mooney MD [facility] CPT-18208 Level 3 Est. Patient 16:38:53 [employer] TECHNICIAN Hector Love MD [facility] CPT-12327 Level 3 Est. Patient 15:46:05 CDT Hector Love MD [facility] CPT-51364 Level 3 Est. Patient 13:59:39 CDT Hector Love MD [facility] CPT-25316 Level 3 Est. Patient 14:44:46 [employer] TECHNICIAN Hector Love MD [facility] CPT-43463 Level 3 Est. Patient 17:12:27 CDT Hector Love MD [facility] CPT-42332 Level 3 Est. Patient 15:30:32 CDT Hector Love MD [facility] CPT-66574 Level 3 Est. Patient 14:24:52 CDT Иван Mooney MD [facility] CPT-64608 Level 3 Est. Patient 14:08:38 [employer] TECHNICIAN Hector Love MD [facility] Procedures Code Procedure Name Date Entry Date Standard Description CPT-36262 Venipuncture Draw Fee 16:18:26 CDT CPT-09455 TB Skin Test 09:57:25 CDT CPT-000 Give Appropriate Flu Vaccine 16:22:23 [employer] TECHNICIAN CPT-36901 Free T4 - LAB USE ONLY 11:38:58 CDT CPT-91517 TSH - LAB USE ONLY 11:38:58 CDT CPT-63930 Venipuncture Draw Fee 11:38:58 CDT CPT-05011 Fluzone Quadrivalent Intramuscular Suspension 0.5 ML 16: 12:26 [employer] TECHNICIAN CPT-79681 Immunization Single Admin 16:12:26 [employer] TECHNICIAN CPT-J0561 Bicillin LA 1,200,000 u (PCN G Benzathine) 16:40:23 CDT CPT-72195 Abx/Therapy Injection 16:40:22 CDT CPT-J0561 Bicillin LA 1,200,000 u (PCN G Benzathine) 16:15:35 CDT CPT-90494 Immunization Single Admin 16:11:28 [employer] TECHNICIAN CPT-55680 Fluzone Quadrivalent Intramuscular Suspension 0.5 ML 16: 11:28 [employer] TECHNICIAN CPT-25063 Administration single or combination vaccine inc oral 13 :57:23 CDT CPT-57391 Menactra Intramuscular Injectable 13:57:23 CDT CPT-58186 First Vx Component - Ix admin via ID IM or jet inj without physician counseling 16:42:17 [employer] TECHNICIAN CPT-68955 Fluzone preservative free (>=3 yrs.) 16:42:17 [employer]IELD TECHNICIAN 06/03 CPT-57569 Venipuncture Draw Fee 16:29:01 CDT CPT-65320 Chest 2V Frontal and Lat 16:23:56 CDT CPT-39827 Administration single or combination vaccine inc oral 13 :39:17 [employer]IELD TECHNICIAN CPT-16163 Tdap 13:39:17 [employer] TECHNICIAN
--- OUTSIDE RECORDS SUMMARY | 2017-11-06 01:44 | XMS REPORT | Clinical Summary ---
Author Author Admin, LAMBERT Organization [employer] Address Unknown Phone Unavailable Allergies, Adverse Reactions, Alerts Allergy Name Reaction Description Start Date Severity Status Provider MYCINS * Critical Active Иван Monoey MD BENADRYL Critical Active Hector Love MD [...] Gastroenteritis, viral, acute 008.8 Resolved Martha Montejo [employer] Intestinal infection due to other organism, not [...] employment physical examination V70.0 Active Manish Castrejon [employer] Routine general medical examination at a health care facility Exposure to mononucleosis V01.79 Active Manish Castrejon [employer] Contact with or exposure to other viral [...] every 12 hours for 10 days AMOXICILLIN 24029970073 No Longer Active Иван Mooney MD Active VITAMIN C 500 MG CHEW TAB ASCORBIC ACID 65466461383 Active Иван Mooney MD Active PREDNISONE 20 MG TAB 2 po qd x 4 days PREDNISONE 55322560978 No Longer Active Hector Love MD Active HYDROCODONE-ACETAMINOPHEN 5-325 MG TABS 1/2 to 1 po q 4 hours prn pain 11/06 HYDROCODONE-ACETAMINOPHEN 43633850374 No Longer Active Hector Love MD Active FLONASE ALLERGY RELIEF 50 MCG/ACT NASAL SUSP 2 spray each nostril daily prn allergies FLUTICASONE PROPIONATE 52040480864 Active Hector Love MD Active AUGMENTIN 875-125 MG TAB 1 po BID x 10 days AMOXICILLIN-POT CLAVULANATE 18172484902 No Longer Active Hector Love MD Active FLONASE ALLERGY RELIEF 50 MCG/ACT NASAL SUSP 2 sprays each nostril daily PRN allergies FLUTICASONE PROPIONATE 75700579532 No Longer Active Hector Love MD Active AMOXICILLIN 500 MG CAPS 1 cap by mouth three times a day AMOXICILLIN 19156558953 No Longer Active Jillina Frazell [employer] Active KEFLEX 500 MG CAP 1 tab po tid CEPHALEXIN 91897472895 No Longer Active Jillina Frazell [employer] Active AMOXICILLIN 500 MG TABS 2 tabs twice a day for 10 days AMOXICILLIN 07469338007 No Longer Active Jillina Frazell [employer] Active ZYRTEC ALLERGY 10 MG CAPS 1 po qd CETIRIZINE HCL 19028121705 Active Hector Love MD Active PROGRAF 1 MG CAPS 2 tabs po bid TACROLIMUS 45233403291 Active Hector Love MD Active ZOFRAN 4 MG TABS 1 po q6hr PRN Nausea ONDANSETRON HCL 61436193733 No Longer Active Ramona Diggs LPN Active AMOXICILLIN 500 MG CAPS 2 po BID x 10 days AMOXICILLIN 26099302295 No Longer Active Martha Montejo RADHA Active AUGMENTIN 875-125 MG TAB 1 tab by mouth twice daily with food AMOXICILLIN-POT CLAVULANATE 23966525290 No Longer Active Hector Love MD Active LEVAQUIN 500 MG TABS 1 pill by mouth daily LEVOFLOXACIN 38404956638 No Longer Active Jen Crystal MD PhD Active LISINOPRIL 5 MG TABS 1.5 tab qd LISINOPRIL 71836995845 Active Jen Crystal MD PhD Active KETOCONAZOLE 2 % CREA apply twice a day to rash KETOCONAZOLE 30156138298 No Longer Active Hector Love MD Active AUGMENTIN 875-125 MG TAB 1 tab by mouth twice daily with food AMOXICILLIN-POT CLAVULANATE 19529255153 No Longer Active Иван Mooney MD Active LOTRISONE 0.05-1 % CREAM Apply twice a day to affected area 07/19 CLOTRIMAZOLE-BETAMETHASONE 25430968269 No Longer Active Иван Mooney MD Active FEXOFENADINE HCL 180 MG TABS 1 Daily FEXOFENADINE HCL 96909364175 No Longer Active Hector Love MD Active PROGRAF 0.5 MG CAPS Take one by mouth daily with 1 mg TACROLIMUS 08153483503 No Longer Active Hector Love MD Active AMOXICILLIN 500 MG CAPS 2 po BID x 10 days AMOXICILLIN 77032619617 No Longer Active Hector Love MD Active RAPAMUNE 1 MG TABS 3 tabs in the am SIROLIMUS 02464249176 No Longer Active Hector Love MD Active AMOXICILLIN 500 MG CAPS 2 po BID x 10 days AMOXICILLIN 62545210658 No Longer Active Hector Love MD Active LORTAB 5 5-500 MG TABS 1/2 to 1 tablet by mouth every 4 hours as needed for pain HYDROCODONE-ACETAMINOPHEN 10303143882 No Longer Active Hector Love MD Active FLUTICASONE PROPIONATE 50 MCG/ACT SUSP INSTILL 2 SPRAYS IN EACH NOSTRIL Q D FLUTICASONE PROPIONATE 47530093377 No Longer Active Hector Love MD Active PROGRAF 1 MG CAPS 1 po bid TACROLIMUS 61187633181 No Longer Active Hector Love MD Active AMOXICILLIN 875 MG TABS 1 tab by mouth twice daily AMOXICILLIN 15275449659 No Longer Active Hector Love MD Active AMOXICILLIN 500 MG CAPS 2 po BID x 10 days AMOXICILLIN 80106374422 No Longer Active Hector Love MD Active AUGMENTIN 875-125 MG TAB 1 tab by mouth twice daily with food AMOXICILLIN-POT CLAVULANATE 51168489380 No Longer Active Hector Love MD Active AZITHROMYCIN 250 MG TABS 2 po qd x 1 day, then 1 po qd x 4 days AZITHROMYCIN 02267866150 No Longer Active Hector Love MD Active CETIRIZINE HCL 10 MG TABS 1 PO Q D CETIRIZINE HCL 94515653531 No Longer Active Waleska [place] Active PROGRAF 1 MG CAPS 1 po bid PROGRAF 1 MG CAPS 129862 TACROLIMUS Inactive FLUTICASONE PROPIONATE 50 MCG/ACT SUSP INSTILL 2 SPRAYS IN EACH NOSTRIL Q D FLUTICASONE PROPIONATE 50 MCG/ACT SUSP 4401932 FLUTICASONE PROPIONATE Inactive LORTAB 5 5-500 MG TABS 1/2 to 1 tablet by mouth every 4 hours as needed for pain LORTAB 5 5-500 MG TABS HYDROCODONE- ACETAMINOPHEN Inactive RAPAMUNE 1 MG TABS 3 tabs in the am RAPAMUNE 1 MG TABS 305540 SIROLIMUS Inactive PROGRAF 0.5 MG CAPS Take one by mouth daily with 1 mg PROGRAF 0.5 MG CAPS 454658 TACROLIMUS Inactive FEXOFENADINE HCL 180 MG TABS 1 Daily FEXOFENADINE HCL 180 MG TABS 728819 FEXOFENADINE HCL Inactive LOTRISONE 0.05-1 % CREAM Apply twice a day to affected area 07/19 LOTRISONE 0.05-1 % CREAM 110919 CLOTRIMAZOLE-BETAMETHASONE Inactive KETOCONAZOLE 2 % CREA apply twice a day to rash KETOCONAZOLE 2 % CREA 362725 KETOCONAZOLE Inactive AUGMENTIN 875-125 MG TAB 1 tab by mouth twice daily with food AUGMENTIN 875-125 MG TAB 264848 AMOXICILLIN-POT CLAVULANATE Inactive ZOFRAN 4 MG TABS 1 po q6hr PRN Nausea ZOFRAN 4 MG TABS 884951 ONDANSETRON HCL Inactive AMOXICILLIN 500 MG TABS 2 tabs twice a day for 10 days AMOXICILLIN 500 MG TABS 782607 AMOXICILLIN Inactive FLONASE ALLERGY RELIEF 50 MCG/ACT NASAL SUSP 2 sprays each nostril daily PRN allergies FLONASE ALLERGY RELIEF 50 MCG/ACT NASAL SUSP 2488831 FLUTICASONE PROPIONATE Inactive HYDROCODONE-ACETAMINOPHEN 5-325 MG TABS 1/2 to 1 po q 4 hours prn pain 11/06 HYDROCODONE-ACETAMINOPHEN 5-325 MG TABS 801106 HYDROCODONE- ACETAMINOPHEN Inactive AMOXICILLIN 500 MG CAPS 2 po BID x 10 days AMOXICILLIN 500 MG CAPS 528144 AMOXICILLIN Inactive AMOXICILLIN 875 MG TABS 1 tab by mouth twice daily AMOXICILLIN 875 MG TABS 227081 AMOXICILLIN Inactive AMOXICILLIN 500 MG CAPS 2 po BID x 10 days AMOXICILLIN 500 MG CAPS 757074 AMOXICILLIN Inactive AMOXICILLIN 500 MG CAPS 2 po BID x 10 days AMOXICILLIN 500 MG CAPS 355755 AMOXICILLIN Inactive AUGMENTIN 875-125 MG TAB 1 tab by mouth twice daily with food AUGMENTIN 875-125 MG TAB 611903 AMOXICILLIN-POT CLAVULANATE Inactive LEVAQUIN 500 MG TABS 1 pill by mouth daily LEVAQUIN 500 MG TABS 826144 LEVOFLOXACIN Inactive AMOXICILLIN 500 MG CAPS 2 po BID x 10 days AMOXICILLIN 500 MG CAPS 417352 AMOXICILLIN Inactive AMOXICILLIN 500 MG CAPS 1 cap by mouth three times a day AMOXICILLIN 500 MG CAPS 348133 AMOXICILLIN Inactive AUGMENTIN 875-125 MG TAB 1 po BID x 10 days AUGMENTIN 875-125 MG TAB 003814 AMOXICILLIN-POT CLAVULANATE Inactive PREDNISONE 20 MG TAB 2 po qd x 4 days PREDNISONE 20 MG TAB 163972 PREDNISONE Inactive AMOXICILLIN 500 MG TABS Take two tablets by mouth every 12 hours for 10 days AMOXICILLIN 500 MG TABS 612786 AMOXICILLIN Inactive Advance Directives Directive Description Start Date PERMISSION TO SHARE Immunizations Vaccine Administration Date Value Standard Description Seasonal influenza vaccine, injectable, preservative free, for > 3 years old ( Afluria, FluLaval, Fluzone, Fluvirin, Fluarix, Agriflu(>=18 yo)) Fluzone preservative free (>=3 yrs.) [EQF221] Influenza, seasonal, injectable, preservative free Adacel (Tetanus, reduced Diphtheria, and acellular Pertussis Immunization) Adacel [PSS999] tetanus toxoid, reduced diphtheria toxoid, and acellular [...] Panel - Chemistry sodium, serum 137 mmol/L [phone]/08/14 carbon dioxide, venous blood 29.7 mmol/L 21.0-32.0 potassium, serum 4.3 mmol/L 3.5-5.2 chloride, serum 99 mmol/L 98-107 blood glucose 123 mg/dL 65-110 urea nitrogen, blood 12 mg/dL 7-18 creatinine, serum 0.84 mg/dL 0.60-1.30 alanine aminotransferase (SGPT), serum 48 U/L 12-78 aspartate aminotransferase (SGOT), serum 26 U/L 15-37 calcium, serum 9.4 mg/dL 8.5-10.1 bilirubin, serum, total 1.60 mg/dL 0.00-1.00 cholesterol, serum 141 mg/dL [phone]/08/14 triglyceride, serum, fasting 54 mg/dL 30-200 HDL [...] 5.0-8.5 Encounters Code Encounter Date Provider Facility CPT-31258 Level 3 Est. Patient 16:06:03 CDT Manish Castrejon [facility] CPT-32586 Level 3 Est. Patient 09:57:24 CDT Manish Castrejon [facility] CPT-21549 Level 3 Est. Patient 16:31:04 CDT Иван Mooney MD [facility] CPT-40894 Level 4 Est. Patient 12:02:18 CDT Hector Love MD [facility] CPT-63850 Level 3 Est. Patient 16:14:45 CDT Hector Love MD [facility] CPT-60830 Level 3 Est. Patient 16:53:35 CDT Иван Mooney MD [facility] CPT-63902 Level 3 Est. Patient 15:57:13 CDT Martha Montejo [facility] CPT-96910 Level 3 Est. 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 Patient 14:50:45 CDT Hector Love MD [facility] CPT-93213 Level 3 Est. Patient 21:17:30 CDT Jen Crystal MD, PhD [facility] CPT-90410 Level 3 Est. Patient 09:32:55 CDT Hector Love MD [facility] CPT-76384 Level 3 Est. Patient 15:11:08 BACK SHOE WORKER Иван Mooney MD [facility] CPT-50421 Level 3 Est. Patient 16:38:53 BACK SHOE WORKER Hector Love MD [facility] CPT-32139 Level 3 Est. Patient 15:46:05 CDT Hector Love MD [facility] CPT-51575 Level 3 Est. Patient 13:59:39 CDT Hector Love MD [facility] CPT-70543 Level 3 Est. 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 Patient 17:12:27 CDT Hector Love MD [facility] CPT-79085 Level 3 Est. Patient 15:30:32 CDT Hector Love MD [facility] CPT-34558 Level 3 Est. Patient 14:24:52 CDT Иван Mooney MD [facility] CPT-88322 Level 3 Est. 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 Hector Love MD [facility] Procedures Code Procedure Name Date Entry Date Standard Description CPT-55776 Venipuncture Draw Fee 16:18:26 CDT CPT-14401 TB Skin Test 09:57:25 CDT CPT-000 Give Appropriate Flu Vaccine 16:22:23 BACK SHOE WORKER CPT-48445 Free T4 - LAB USE ONLY 11:38:58 CDT CPT-64826 TSH - LAB USE ONLY 11:38:58 CDT CPT-20942 Venipuncture Draw Fee 11:38:58 CDT CPT-36759 Fluzone Quadrivalent Intramuscular Suspension 0.5 ML 16: 12:26 BACK SHOE WORKER CPT-42851 Immunization Single Admin 16:12:26 BACK SHOE WORKER CPT-J0561 Bicillin LA 1,200,000 u (PCN G Benzathine) 16:40:23 CDT CPT-73439 Abx/Therapy Injection 16:40:22 CDT CPT-J0561 Bicillin LA 1,200,000 u (PCN G Benzathine) 16:15:35 CDT CPT-16714 Immunization Single Admin 16:11:28 BACK SHOE WORKER CPT-55749 Fluzone Quadrivalent Intramuscular Suspension 0.5 ML 16: 11:28 BACK SHOE WORKER CPT-37518 Administration single or combination vaccine inc oral 13 :57:23 CDT CPT-33048 Menactra Intramuscular Injectable 13:57:23 CDT CPT-97815 First Vx Component - Ix admin via ID IM or jet inj without physician counseling 16:42:17 BACK SHOE WORKER CPT-08192 Fluzone preservative free (>=3 yrs.) 16:42:17 BACK SHOE WORKER 06/03 CPT-79117 Venipuncture Draw Fee 16:29:01 CDT CPT-94397 Chest 2V Frontal and Lat 16:23:56 CDT CPT-72069 Administration single or combination vaccine inc oral 13 :39:17 BACK SHOE WORKER CPT-29700 Tdap 13:39:17 BACK SHOE WORKER
--- OUTSIDE RECORDS SUMMARY | 2017-11-06 01:46 | XMS REPORT | Clinical Summary ---
Author Author Admin, LAMBERT Organization [employer] Address Unknown Phone Unavailable Allergies, Adverse Reactions, [...] AND INFLUENZA ICD-V06.6 Inactive Hector Love MD COUGH ICD-786.2 Inactive Hector Love MD Bronchitis ICD-490 Inactive Hector Love MD 2014 SINUSITIS, ACUTE ICD-461.9 Inactive Hector Love MD Ingrown toenail ICD-703.0 Inactive Hector Love MD Ingrown toenail, right ICD-703.0 Inactive Hector Love MD Gastroenteritis, viral, acute ICD-008.8 Inactive Martha Montejo [facility] Pharyngitis ICD-462 Inactive Hector Love MD Medication List Medication Instructions Start Date Stop Date Generic Name NDC Status Provider Patient Instruction PREDNISONE 20 MG TAB 2 po qd x 4 days PREDNISONE [id number] No Longer Active Hector Love MD Active HYDROCODONE-ACETAMINOPHEN 5-325 MG TABS 1/2 to 1 po q 4 hours prn pain 11/06 HYDROCODONE-ACETAMINOPHEN 85155331130 No Longer Active Hector Love MD Active FLONASE ALLERGY RELIEF 50 MCG/ACT NASAL SUSP 2 spray each nostril daily prn allergies FLUTICASONE PROPIONATE 60513246456 Active Hector Love MD Active AUGMENTIN 875-125 MG TAB 1 po BID x 10 days AMOXICILLIN-POT CLAVULANATE 43312692624 No Longer Active Hector Love MD Active FLONASE ALLERGY RELIEF 50 MCG/ACT NASAL SUSP 2 sprays each nostril daily PRN allergies FLUTICASONE PROPIONATE 62253827745 No Longer Active Hector Love MD Active AMOXICILLIN 500 MG CAPS 1 cap by mouth three times a day AMOXICILLIN 85570345343 No Longer Active Jillina Frazell [facility] Active KEFLEX 500 MG CAP 1 tab po tid CEPHALEXIN 89074625429 No Longer Active Jillina Frazell [facility] Active AMOXICILLIN 500 MG TABS 2 tabs twice a day for 10 days AMOXICILLIN 85936359548 No Longer Active Jillina Fragretal RADHA Active ZYRTEC ALLERGY 10 MG CAPS 1 po qd CETIRIZINE HCL 37422756811 Active Hcetor Love MD Active PROGRAF 1 MG CAPS 2 tabs po bid TACROLIMUS 42862434531 Active Hector Love MD Active ZOFRAN 4 MG TABS 1 po q6hr PRN Nausea ONDANSETRON HCL 27443248863 No Longer Active Ramona Diggs LPN Active AMOXICILLIN 500 MG CAPS 2 po BID x 10 days AMOXICILLIN 54914352730 No Longer Active Martha Montejo [facility] Active AUGMENTIN 875-125 MG TAB 1 tab by mouth twice daily with food AMOXICILLIN-POT CLAVULANATE 46834889918 No Longer Active Hector Love MD Active LEVAQUIN 500 MG TABS 1 pill by mouth daily LEVOFLOXACIN 05046675727 No Longer Active Jen Crystal MD PhD Active LISINOPRIL 5 MG TABS 1.5 tab qd LISINOPRIL 65753471096 Active Jen Crystal MD PhD Active KETOCONAZOLE 2 % CREA apply twice a day to rash KETOCONAZOLE 99178893129 No Longer Active Hector Love MD Active AUGMENTIN 875-125 MG TAB 1 tab by mouth twice daily with food AMOXICILLIN-POT CLAVULANATE 95199482578 No Longer Active Иван Mooney MD Active LOTRISONE 0.05-1 % CREAM Apply twice a day to affected area 07/19 CLOTRIMAZOLE-BETAMETHASONE 70433143896 No Longer Active Иван Mooney MD Active FEXOFENADINE HCL 180 MG TABS 1 Daily FEXOFENADINE HCL 65184482023 No Longer Active Hector Love MD Active PROGRAF 0.5 MG CAPS Take one by mouth daily with 1 mg TACROLIMUS 37292918758 No Longer Active Hector Love MD Active AMOXICILLIN 500 MG CAPS 2 po BID x 10 days AMOXICILLIN 67378736291 No Longer Active Hector Love MD Active RAPAMUNE 1 MG TABS 3 tabs in the am SIROLIMUS 89297956321 No Longer Active Hector Love MD Active AMOXICILLIN 500 MG CAPS 2 po BID x 10 days AMOXICILLIN 35581873996 No Longer Active Hector Love MD Active LORTAB 5 5-500 MG TABS 1/2 to 1 tablet by mouth every 4 hours as needed for pain HYDROCODONE-ACETAMINOPHEN 34664012910 No Longer Active Hector Love MD Active FLUTICASONE PROPIONATE 50 MCG/ACT SUSP INSTILL 2 SPRAYS IN EACH NOSTRIL Q D FLUTICASONE PROPIONATE 42662551405 No Longer Active Hector Love MD Active PROGRAF 1 MG CAPS 1 po bid TACROLIMUS 92182457120 No Longer Active Hector Love MD Active AMOXICILLIN 875 MG TABS 1 tab by mouth twice daily AMOXICILLIN 06968273941 No Longer Active Hector Love MD Active AMOXICILLIN 500 MG CAPS 2 po BID x 10 days AMOXICILLIN 50521768539 No Longer Active Hector Love MD Active AUGMENTIN 875-125 MG TAB 1 tab by mouth twice daily with food AMOXICILLIN-POT CLAVULANATE 53611582238 No Longer Active Hector Love MD Active AZITHROMYCIN 250 MG TABS 2 po qd x 1 day, then 1 po qd x 4 days AZITHROMYCIN 92541349992 No Longer Active Hector Love MD Active CETIRIZINE HCL 10 MG TABS 1 PO Q D CETIRIZINE HCL 94003917920 No Longer Active [place]ka [place] Active PROGRAF 1 MG CAPS 1 po bid PROGRAF 1 MG CAPS 557129 TACROLIMUS Inactive FLUTICASONE PROPIONATE 50 MCG/ACT SUSP INSTILL 2 SPRAYS IN EACH NOSTRIL Q D FLUTICASONE PROPIONATE 50 MCG/ACT SUSP 2228691 FLUTICASONE PROPIONATE Inactive LORTAB 5 5-500 MG TABS 1/2 to 1 tablet by mouth every 4 hours as needed for pain LORTAB 5 5-500 MG TABS HYDROCODONE- ACETAMINOPHEN Inactive RAPAMUNE 1 MG TABS 3 tabs in the am RAPAMUNE 1 MG TABS 955555 SIROLIMUS Inactive PROGRAF 0.5 MG CAPS Take one by mouth daily with 1 mg PROGRAF 0.5 MG CAPS 221918 TACROLIMUS Inactive FEXOFENADINE HCL 180 MG TABS 1 Daily FEXOFENADINE HCL 180 MG TABS 050553 FEXOFENADINE HCL Inactive LOTRISONE 0.05-1 % CREAM Apply twice a day to affected area 07/19 LOTRISONE 0.05-1 % CREAM 949549 CLOTRIMAZOLE-BETAMETHASONE Inactive KETOCONAZOLE 2 % CREA apply twice a day to rash KETOCONAZOLE 2 % CREA 158132 KETOCONAZOLE Inactive AUGMENTIN 875-125 MG TAB 1 tab by mouth twice daily with food AUGMENTIN 875-125 MG TAB 295441 AMOXICILLIN-POT CLAVULANATE Inactive ZOFRAN 4 MG TABS 1 po q6hr PRN Nausea ZOFRAN 4 MG TABS 715455 ONDANSETRON HCL Inactive AMOXICILLIN 500 MG TABS 2 tabs twice a day for 10 days AMOXICILLIN 500 MG TABS 659469 AMOXICILLIN Inactive FLONASE ALLERGY RELIEF 50 MCG/ACT NASAL SUSP 2 sprays each nostril daily PRN allergies FLONASE ALLERGY RELIEF 50 MCG/ACT NASAL SUSP 6106719 FLUTICASONE PROPIONATE Inactive HYDROCODONE-ACETAMINOPHEN 5-325 MG TABS 1/2 to 1 po q 4 hours prn pain 11/06 HYDROCODONE-ACETAMINOPHEN 5-325 MG TABS 360034 HYDROCODONE- ACETAMINOPHEN Inactive AMOXICILLIN 500 MG CAPS 2 po BID x 10 days AMOXICILLIN 500 MG CAPS 655156 AMOXICILLIN Inactive AMOXICILLIN 875 MG TABS 1 tab by mouth twice daily AMOXICILLIN 875 MG TABS 052963 AMOXICILLIN Inactive AMOXICILLIN 500 MG CAPS 2 po BID x 10 days AMOXICILLIN 500 MG CAPS 674164 AMOXICILLIN Inactive AMOXICILLIN 500 MG CAPS 2 po BID x 10 days AMOXICILLIN 500 MG CAPS 538079 AMOXICILLIN Inactive AUGMENTIN 875-125 MG TAB 1 tab by mouth twice daily with food AUGMENTIN 875-125 MG TAB 803222 AMOXICILLIN-POT CLAVULANATE Inactive LEVAQUIN 500 MG TABS 1 pill by mouth daily LEVAQUIN 500 MG TABS 373872 LEVOFLOXACIN Inactive AMOXICILLIN 500 MG CAPS 2 po BID x 10 days AMOXICILLIN 500 MG CAPS 892382 AMOXICILLIN Inactive AMOXICILLIN 500 MG CAPS 1 cap by mouth three times a day AMOXICILLIN 500 MG CAPS 454518 AMOXICILLIN Inactive AUGMENTIN 875-125 MG TAB 1 po BID x 10 days AUGMENTIN 875-125 MG TAB 626218 AMOXICILLIN-POT CLAVULANATE Inactive PREDNISONE 20 MG TAB 2 po qd x 4 days PREDNISONE 20 MG TAB 903266 PREDNISONE Inactive Advance Directives Directive Description Start Date PERMISSION TO SHARE Immunizations Vaccine Administration Date Value Standard Description Seasonal influenza vaccine, injectable, preservative free, for > 3 years old ( Afluria, FluLaval, Fluzone, Fluvirin, Fluarix, Agriflu(>=18 yo)) Fluzone preservative free (>=3 yrs.) [KLD920] Influenza, seasonal, injectable, preservative free Adacel (Tetanus, reduced Diphtheria, and acellular Pertussis Immunization) Adacel [DNT304] tetanus toxoid, reduced diphtheria toxoid, and acellular [...] 0.76-1.46 Encounters Code Encounter Date Provider Facility CPT-90687 Level 4 Est. Patient 12:02:18 CDT Hector Love MD [facility] CPT-32942 Level 3 Est. Patient 16:14:45 CDT Hector Love MD [facility] CPT-53317 Level 3 Est. Patient 16:53:35 CDT Иван Mooney MD [facility] CPT-40646 Level 3 Est. Patient 15:57:13 CDT Martha Montejo APRN [facility] CPT-42724 Level 3 Est. 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 Patient 14:50:45 CDT Hector Love MD [facility] CPT-97258 Level 3 Est. Patient 21:17:30 CDT Jen Crystal MD PhD [facility] CPT-94609 Level 3 Est. Patient 09:32:55 CDT Hector Love MD [facility] CPT-66359 Level 3 Est. Patient 15:11:08 INSTRUMENT ROOM TECHNICIAN Иван Mooney MD [facility] CPT-68377 Level 3 Est. Patient 16:38:53 INSTRUMENT ROOM TECHNICIAN Hector Love MD [facility] CPT-19060 Level 3 Est. Patient 15:46:05 CDT Hector Love MD [facility] CPT-33317 Level 3 Est. Patient 13:59:39 CDT Hector Love MD [facility] CPT-98683 Level 3 Est. Patient 14:44:46 INSTRUMENT ROOM TECHNICIAN Hector Love MD [facility] CPT-49052 Level 3 Est. Patient 17:12:27 CDT Hector Love MD [facility] CPT-60753 Level 3 Est. Patient 15:30:32 CDT Hector Love MD [facility] CPT-99966 Level 3 Est. Patient 14:24:52 CDT Иван Mooney MD [facility] CPT-13493 Level 3 Est. Patient 14:08:38 INSTRUMENT ROOM TECHNICIAN Hector Love MD [facility] Procedures Code Procedure Name Date Entry Date Standard Description CPT-000 Give Appropriate Flu Vaccine 16:22:23 INSTRUMENT ROOM TECHNICIAN CPT-56541 Free T4 - LAB USE ONLY 11:38:58 CDT CPT-64006 TSH - LAB USE ONLY 11:38:58 CDT CPT-41707 Venipuncture Draw Fee 11:38:58 CDT CPT-65003 Fluzone Quadrivalent Intramuscular Suspension 0.5 ML 16: 12:26 INSTRUMENT ROOM TECHNICIAN CPT-19984 Immunization Single Admin 16:12:26 INSTRUMENT ROOM TECHNICIAN CPT-J0561 Bicillin LA 1,200,000 u (PCN G Benzathine) 16:40:23 CDT CPT-96119 Abx/Therapy Injection 16:40:22 CDT CPT-J0561 Bicillin LA 1,200,000 u (PCN G Benzathine) 16:15:35 CDT CPT-06219 Immunization Single Admin 16:11:28 INSTRUMENT ROOM TECHNICIAN CPT-39190 Fluzone Quadrivalent Intramuscular Suspension 0.5 ML 16: 11:28 INSTRUMENT ROOM TECHNICIAN CPT-65994 Administration single or combination vaccine inc oral 13 :57:23 CDT CPT-65812 Menactra Intramuscular Injectable 13:57:23 CDT CPT-44902 First Vx Component - Ix admin via ID IM or jet inj without physician counseling 16:42:17 INSTRUMENT ROOM TECHNICIAN CPT-29947 Fluzone preservative free (>=3 yrs.) 16:42:17 INSTRUMENT ROOM TECHNICIAN 06/03 CPT-43205 Venipuncture Draw Fee 16:29:01 CDT CPT-92092 Chest 2V Frontal and Lat 16:23:56 CDT CPT-58652 Administration single or combination vaccine inc oral 13 :39:17 INSTRUMENT ROOM TECHNICIAN CPT-10210 Tdap 13:39:17 INSTRUMENT ROOM TECHNICIAN
--- OUTSIDE RECORDS SUMMARY | 2017-11-06 01:46 | XMS REPORT | Clinical Summary ---
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 Intestinal infection due to other organism, not elsewhere classified Bronchitis 490 Resolved Hector Love MD Bronchitis, not specified as acute or chronic Pharyngitis 462 Resolved Hector Love MD Acute pharyngitis Ingrown toenail 703.0 Resolved Hector Love MD Ingrowing nail Ingrown toenail, right 703.0 Resolved Hector Love MD Ingrowing nail Alopecia 704.00 Active Hector Lvoe MD Alopecia, unspecified Upper respiratory infection, viral 465.9 Active Hector Love MD Acute upper respiratory infections of unspecified site Pharyngitis 462 Active Иван Mooney MD Acute pharyngitis Pre employment physical examination V70.0 Active 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 Routine general medical examination at a health care facility Exposure to mononucleosis V01.79 Active 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 Contact with or exposure to other viral diseases Stress at work V62.1 Active 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 Adverse effects of work environment FH DIABETES [...] Gastroenteritis, viral, acute ICD-008.8 Inactive Martha Montejo [employer] MATERIAL WORKER Bronchitis ICD-490 Inactive Hector Love MD 2014 Pharyngitis ICD-462 Inactive Hector Love MD Ingrown toenail ICD-703.0 Inactive Hector Love MD Ingrown toenail, right ICD-703.0 Inactive Hector Love MD SINUSITIS, ACUTE ICD-461.9 Inactive Hector Love MD Medication List Medication Instructions Start Date Stop Date Generic Name ND Status Provider Patient Instruction PREDNISONE 20 MG ORAL TABLET 1 tablet daily x 2 days PREDNISONE 16545167517 No Longer Active Jillina Lucía GARCIA Active AMOXICILLIN 500 MG ORAL TABLET Take two tablets by mouth every 12 hours for 10 days AMOXICILLIN 95398682978 No Longer Active Иван Mooney MD Active VITAMIN C 500 MG ORAL TABLET CHEWABLE ASCORBIC ACID 38297085042 Active Иван Mooney MD Active PREDNISONE 20 MG ORAL TABLET 2 po qd x 4 days PREDNISONE 92091160783 No Longer Active Hector Love MD Active HYDROCODONE-ACETAMINOPHEN 5-325 MG ORAL TABLET 1/2 to 1 po q 4 hours prn pain HYDROCODONE-ACETAMINOPHEN 47727202048 No Longer Active Hector Love MD Active FLONASE ALLERGY RELIEF 50 MCG/ACT NASAL SUSPENSION 2 spray each nostril daily prn allergies FLUTICASONE PROPIONATE 11726830498 Active Hector Love MD Active AUGMENTIN 875-125 MG ORAL TABLET 1 po BID x 10 days AMOXICILLIN-POT CLAVULANATE 84647909614 No Longer Active Hector Love MD Active FLONASE ALLERGY RELIEF 50 MCG/ACT NASAL SUSPENSION 2 sprays each nostril daily PRN allergies FLUTICASONE PROPIONATE 84511402654 No Longer Active Hector Love MD Active AMOXICILLIN 500 MG ORAL CAPSULE 1 cap by mouth three times a day AMOXICILLIN 73509894006 No Longer Active Jillina Lucía GARCIA Active KEFLEX 500 MG ORAL CAPSULE 1 tab po tid CEPHALEXIN 26203260992 No Longer Active 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 AMOXICILLIN 500 MG ORAL TABLET 2 tabs twice a day for 10 days AMOXICILLIN 87611009362 No Longer Active Jillina Fradebora AC[employer]STICAL MATERIAL WORKER Active ZYRTEC ALLERGY 10 MG ORAL CAPSULE 1 po qd CETIRIZINE HCL 10818003122 Active Hector Love MD Active PROGRAF 1 MG ORAL CAPSULE 2 tabs po bid TACROLIMUS 95669289437 Active eHctor Love MD Active ZOFRAN 4 MG ORAL TABLET 1 po q6hr PRN Nausea ONDANSETRON HCL 79730122629 No Longer Active Ramona Diggs LPN Active AMOXICILLIN 500 MG ORAL CAPSULE 2 po BID x 10 days AMOXICILLIN 81423649669 No Longer Active Martha Montejo ACOUSTICAL MATERIAL WORKER Active AUGMENTIN 875-125 MG ORAL TABLET 1 tab by mouth twice daily with food AMOXICILLIN-POT CLAVULANATE 32764245485 No Longer Active Hector Love MD Active LEVAQUIN 500 MG ORAL TABLET 1 pill by mouth daily LEVOFLOXACIN 03798911103 No Longer Active Jen Crystal MD PhD Active LISINOPRIL 5 MG ORAL TABLET 1.5 tab qd LISINOPRIL 55671337004 Active Jen Crystal MD PhD Active KETOCONAZOLE 2 % EXTERNAL CREAM apply twice a day to rash KETOCONAZOLE 16106526203 No Longer Active Hector Love MD Active AUGMENTIN 875-125 MG ORAL TABLET 1 tab by mouth twice daily with food AMOXICILLIN-POT CLAVULANATE 30387089334 No Longer Active Иван Mooney MD Active LOTRISONE 1-0.05 % EXTERNAL CREAM Apply twice a day to affected area CLOTRIMAZOLE-BETAMETHASONE 99852878029 No Longer Active Иван Mooney MD Active FEXOFENADINE HCL 180 MG ORAL TABLET 1 Daily FEXOFENADINE HCL 41101909483 No Longer Active Hector Love MD Active PROGRAF 0.5 MG ORAL CAPSULE Take one by mouth daily with 1 mg TACROLIMUS 35684861171 No Longer Active Hector Love MD Active AMOXICILLIN 500 MG ORAL CAPSULE 2 po BID x 10 days AMOXICILLIN 69224936813 No Longer Active Hector Love MD Active RAPAMUNE 1 MG ORAL TABLET 3 tabs in the am SIROLIMUS 36263593536 No Longer Active Hector Love MD Active AMOXICILLIN 500 MG ORAL CAPSULE 2 po BID x 10 days AMOXICILLIN 07886285803 No Longer Active Hector Love MD Active LORTAB 5-500 MG ORAL TABLET 1/2 to 1 tablet by mouth every 4 hours as needed for pain HYDROCODONE-ACETAMINOPHEN 01138339310 No Longer Active Hector Love MD Active FLUTICASONE PROPIONATE 50 MCG/ACT NASAL SUSPENSION INSTILL 2 SPRAYS IN EACH NOSTRIL Q D FLUTICASONE PROPIONATE 09286595467 No Longer Active Hector Love MD Active PROGRAF 1 MG ORAL CAPSULE 1 po bid TACROLIMUS 18915015068 No Longer Active Hector Love MD Active AMOXICILLIN 875 MG ORAL TABLET 1 tab by mouth twice daily AMOXICILLIN 27410162047 No Longer Active Hector Love MD Active AMOXICILLIN 500 MG ORAL CAPSULE 2 po BID x 10 days AMOXICILLIN 22345023403 No Longer Active Hector Love MD Active AUGMENTIN 875-125 MG ORAL TABLET 1 tab by mouth twice daily with food AMOXICILLIN-POT CLAVULANATE 27685361487 No Longer Active Hector Love MD Active AZITHROMYCIN 250 MG ORAL TABLET 2 po qd x 1 day, then 1 po qd x 4 days 06/19 AZITHROMYCIN 06944248816 No Longer Active Hector Love MD Active CETIRIZINE HCL 10 MG ORAL TABLET 1 PO Q D CETIRIZINE HCL 93986203886 No Longer Active Waleska Lucasr Active PROGRAF 1 MG ORAL CAPSULE 1 po bid PROGRAF 1 MG ORAL CAPSULE 219657 TACROLIMUS Inactive FLUTICASONE PROPIONATE 50 MCG/ACT NASAL SUSPENSION INSTILL 2 SPRAYS IN EACH NOSTRIL Q D FLUTICASONE PROPIONATE 50 MCG/ACT NASAL SUSPENSION 8091119 FLUTICASONE PROPIONATE Inactive LORTAB 5-500 MG ORAL TABLET 1/2 to 1 tablet by mouth every 4 hours as needed for pain LORTAB 5-500 MG ORAL TABLET HYDROCODONE- ACETAMINOPHEN Inactive RAPAMUNE 1 MG ORAL TABLET 3 tabs in the am RAPAMUNE 1 MG ORAL TABLET 027329 SIROLIMUS Inactive PROGRAF 0.5 MG ORAL CAPSULE Take one by mouth daily with 1 mg PROGRAF 0.5 MG ORAL CAPSULE 781221 TACROLIMUS Inactive FEXOFENADINE HCL 180 MG ORAL TABLET 1 Daily FEXOFENADINE HCL 180 MG ORAL TABLET 537791 FEXOFENADINE HCL Inactive LOTRISONE 1-0.05 % EXTERNAL CREAM Apply twice a day to affected area LOTRISONE 1-0.05 % EXTERNAL CREAM 860775 CLOTRIMAZOLE- BETAMETHASONE Inactive KETOCONAZOLE 2 % EXTERNAL CREAM apply twice a day to rash KETOCONAZOLE 2 % EXTERNAL CREAM 585168 KETOCONAZOLE Inactive AUGMENTIN 875-125 MG ORAL TABLET 1 tab by mouth twice daily with food AUGMENTIN 875-125 MG ORAL TABLET 553071 AMOXICILLIN-POT CLAVULANATE Inactive ZOFRAN 4 MG ORAL TABLET 1 po q6hr PRN Nausea ZOFRAN 4 MG ORAL TABLET 481418 ONDANSETRON HCL Inactive AMOXICILLIN 500 MG ORAL TABLET 2 tabs twice a day for 10 days AMOXICILLIN 500 MG ORAL TABLET 109852 AMOXICILLIN Inactive FLONASE ALLERGY RELIEF 50 MCG/ACT NASAL SUSPENSION 2 sprays each nostril daily PRN allergies FLONASE ALLERGY RELIEF 50 MCG/ACT NASAL SUSPENSION 5109731 FLUTICASONE PROPIONATE Inactive HYDROCODONE-ACETAMINOPHEN 5-325 MG ORAL TABLET 1/2 to 1 po q 4 hours prn pain HYDROCODONE-ACETAMINOPHEN 5-325 MG ORAL TABLET 513588 HYDROCODONE-ACETAMINOPHEN Inactive PREDNISONE 20 MG ORAL TABLET 1 tablet daily x 2 days PREDNISONE 20 MG ORAL TABLET 565954 PREDNISONE Inactive AMOXICILLIN 500 MG ORAL CAPSULE 2 po BID x 10 days AMOXICILLIN 500 MG ORAL CAPSULE 128445 AMOXICILLIN Inactive AMOXICILLIN 875 MG ORAL TABLET 1 tab by mouth twice daily AMOXICILLIN 875 MG ORAL TABLET 928738 AMOXICILLIN Inactive AMOXICILLIN 500 MG ORAL CAPSULE 2 po BID x 10 days AMOXICILLIN 500 MG ORAL CAPSULE 543180 AMOXICILLIN Inactive AMOXICILLIN 500 MG ORAL CAPSULE 2 po BID x 10 days AMOXICILLIN 500 MG ORAL CAPSULE 101425 AMOXICILLIN Inactive AUGMENTIN 875-125 MG ORAL TABLET 1 tab by mouth twice daily with food AUGMENTIN 875-125 MG ORAL TABLET 725872 AMOXICILLIN-POT CLAVULANATE Inactive LEVAQUIN 500 MG ORAL TABLET 1 pill by mouth daily LEVAQUIN 500 MG ORAL TABLET 413724 LEVOFLOXACIN Inactive AMOXICILLIN 500 MG ORAL CAPSULE 2 po BID x 10 days AMOXICILLIN 500 MG ORAL CAPSULE 489872 AMOXICILLIN Inactive AMOXICILLIN 500 MG ORAL CAPSULE 1 cap by mouth three times a day AMOXICILLIN 500 MG ORAL CAPSULE 131684 AMOXICILLIN Inactive AUGMENTIN 875-125 MG ORAL TABLET 1 po BID x 10 days AUGMENTIN 875-125 MG ORAL TABLET 624968 AMOXICILLIN-POT CLAVULANATE Inactive PREDNISONE 20 MG ORAL TABLET 2 po qd x 4 days PREDNISONE 20 MG ORAL TABLET 466401 PREDNISONE Inactive AMOXICILLIN 500 MG ORAL TABLET Take two tablets by mouth every 12 hours for 10 days AMOXICILLIN 500 MG ORAL TABLET 562064 AMOXICILLIN Inactive Advance Directives Directive Description Start Date PERMISSION TO SHARE Immunizations Vaccine Administration Date Value Standard Description Seasonal influenza vaccine, injectable, preservative free, for > 3 years old ( Afluria, FluLaval, Fluzone, Fluvirin, Fluarix, Agriflu(>=18 yo)) Fluzone preservative free (>=3 yrs.) [[id number]] Influenza, seasonal, injectable, preservative free Adacel (Tetanus, reduced Diphtheria, and acellular Pertussis Immunization) Adacel [RVW525] tetanus toxoid, reduced diphtheria toxoid, and acellular [...] Panel - Chemistry sodium, serum 137 mmol/L 958-729 0961/08/14 carbon dioxide, venous blood 29.7 mmol/L 21.0-32.0 potassium, serum 4.3 mmol/L 3.5-5.2 chloride, serum 99 mmol/L 98-107 blood glucose 123 mg/dL 65-110 urea nitrogen, blood 12 mg/dL 7-18 creatinine, serum 0.84 mg/dL 0.60-1.30 alanine aminotransferase (SGPT), serum 48 U/L 12-78 aspartate aminotransferase (SGOT), serum 26 U/L 15-37 calcium, serum 9.4 mg/dL 8.5-10.1 bilirubin, serum, total 1.60 mg/dL 0.00-1.00 cholesterol, serum 141 mg/dL 052-920 5702/08/14 triglyceride, serum, fasting 54 mg/dL 30-200 HDL [...] semiquantitative 6.0 5.0-8.5 Lab Report: VITAMIN D, 25-HYDROXY/31309 - Chemistry vitamin D 25-hydroxy, serum 18 ng/mL 30-100 Encounters Code Encounter Date Provider Facility CPT-12553 Level 3 Est. Patient 11:35:07 CDT Manish Castrejon [facility] CPT-87712 Level 3 Est. Patient 17:22:36 [facility] Level 3 Est. Patient 16:06:03 CDT Manish Castrejon [facility] CPT-05377 Level 3 Est. Patient 09:57:24 CDT Manish Castrejon [facility] CPT-03048 Level 3 Est. Patient 16:31:04 CDT Иван Mooney MD [facility] CPT-16992 Level 4 Est. Patient 12:02:18 CDT Hector Love MD [facility] CPT-52589 Level 3 Est. Patient 16:14:45 CDT Hector Love MD [facility] CPT-29696 Level 3 Est. Patient 16:53:35 CDT Иван Mooney MD [facility] CPT-84077 Level 3 Est. Patient 15:57:13 CDT Martha Montejo RADHA [facility] CPT-24619 Level 3 Est. Patient 14:30:47 ROOM ATTENDANT Hector Love MD [facility] CPT-83866 Level 3 Est. Patient 14:50:45 CDT Hector Love MD [facility] CPT-15711 Level 3 Est. Patient 21:17:30 CDT Jen Crystal MD PhD [facility] CPT-88859 Level 3 Est. Patient 09:32:55 CDT Hector Love MD [facility] CPT-46749 Level 3 Est. Patient 15:11:08 ROOM ATTENDANT Иван Mooney MD [facility] CPT-11595 Level 3 Est. Patient 16:38:53 ROOM ATTENDANT Hector Love MD [facility] CPT-14159 Level 3 Est. Patient 15:46:05 CDT Hector Love MD [facility] CPT-68987 Level 3 Est. Patient 13:59:39 CDT Hector Love MD [facility] CPT-73950 Level 3 Est. Patient 14:44:46 ROOM ATTENDANT Hector Love MD [facility] CPT-61626 Level 3 Est. Patient 17:12:27 CDT Hector Love MD [facility] CPT-41902 Level 3 Est. Patient 15:30:32 CDT Hector Love MD [facility] CPT-30113 Level 3 Est. Patient 14:24:52 CDT Иван Mooney MD [facility] CPT-38445 Level 3 Est. Patient 14:08:38 ROOM ATTENDANT Hector Love MD [facility] Procedures Code Procedure Name Date Entry Date Standard Description CPT-32784 Venipuncture Draw Fee 16:18:26 CDT CPT-90018 TB Skin Test 09:57:25 CDT CPT-000 Give Appropriate Flu Vaccine 16:22:23 ROOM ATTENDANT CPT-40836 Free T4 - LAB USE ONLY 11:38:58 CDT CPT-30638 TSH - LAB USE ONLY 11:38:58 CDT CPT-78977 Venipuncture Draw Fee 11:38:58 CDT CPT-75199 Fluzone Quadrivalent Intramuscular Suspension 0.5 ML 16: 12:26 ROOM ATTENDANT CPT-02300 Immunization Single Admin 16:12:26 ROOM ATTENDANT CPT-J0561 Bicillin LA 1,200,000 u (PCN G Benzathine) 16:40:23 CDT CPT-35523 Abx/Therapy Injection 16:40:22 CDT CPT-J0561 Bicillin LA 1,200,000 u (PCN G Benzathine) 16:15:35 CDT CPT-37058 Immunization Single Admin 16:11:28 ROOM ATTENDANT CPT-37606 Fluzone Quadrivalent Intramuscular Suspension 0.5 ML 16: 11:28 ROOM ATTENDANT CPT-53604 Administration single or combination vaccine inc oral 13 :57:23 CDT CPT-11095 Menactra Intramuscular Injectable 13:57:23 CDT CPT-99400 First Vx Component - Ix admin via ID IM or jet inj without physician counseling 16:42:17 ROOM ATTENDANT CPT-53200 Fluzone preservative free (>=3 yrs.) 16:42:17 ROOM ATTENDANT 06/03 CPT-41044 Venipuncture Draw Fee 16:29:01 CDT CPT-00765 Chest 2V Frontal and Lat 16:23:56 CDT CPT-61550 Administration single or combination vaccine inc oral 13 :39:17 ROOM ATTENDANT CPT-75780 Tdap 13:39:17 ROOM ATTENDANT
--- OUTSIDE RECORDS SUMMARY | 2017-11-06 01:47 | XMS REPORT | Clinical Summary ---
Author Author Admin, LAMBERT Organization [employer] Address Unknown Phone Unavailable Allergies, Adverse Reactions, [...] Comment Standard Description Annotate HYPERTENSION 401.9 Active Hecotr Love MD Unspecified essential hypertension FH DIABETES [...] Gastroenteritis, viral, acute 008.8 Resolved Martha Montejo STOCK TRACER Intestinal infection due to other organism, not [...] employment physical examination V70.0 Active Manish Castrejon STOCK TRACER Routine general medical examination at a health care facility FH DIABETES ICD-V18.0 Inactive Hector Love MD BRONCHITIS, ACUTE ICD-466.0 Inactive Hector Love MD KNEE SPRAIN, LEFT ICD-844.9 Inactive Hector Love MD U R I ICD-465.9 Inactive Hector Love MD COUGH ICD-786.2 Inactive Hector Love MD COSTOCHRONDRITIS ICD-733.6 Nils Love MD SINUSITIS, ACUTE ICD-461.9 Inactive Hector [...] Inactive Hector Love MD 2014 Pharyngitis ICD-462 Nils Love MD Ingrown toenail ICD-703.0 Inactive Hector Love MD Ingrown toenail, right ICD-703.0 Nils Love MD Medication List Medication Instructions Start Date Stop Date Generic Name NDC Status Provider Patient Instruction AMOXICILLIN 500 MG TABS Take two tablets by mouth every 12 hours for 10 days AMOXICILLIN 75689997720 No Longer Active Иван Mooney MD Active VITAMIN C 500 MG CHEW TAB ASCORBIC ACID 97756602239 Active Иван Mooney MD Active PREDNISONE 20 MG TAB 2 po qd x 4 days PREDNISONE 74998288627 No Longer Active Hector Love MD Active HYDROCODONE-ACETAMINOPHEN 5-325 MG TABS 1/2 to 1 po q 4 hours prn pain 11/06 HYDROCODONE-ACETAMINOPHEN 78325390961 No Longer Active Hector Love MD Active FLONASE ALLERGY RELIEF 50 MCG/ACT NASAL SUSP 2 spray each nostril daily prn allergies FLUTICASONE PROPIONATE 78470443503 Active Hector Love MD Active AUGMENTIN 875-125 MG TAB 1 po BID x 10 days AMOXICILLIN-POT CLAVULANATE 32823370716 No Longer Active Hector Love MD Active FLONASE ALLERGY RELIEF 50 MCG/ACT NASAL SUSP 2 sprays each nostril daily PRN allergies FLUTICASONE PROPIONATE 90892071586 No Longer Active Hector Love MD Active AMOXICILLIN 500 MG CAPS 1 cap by mouth three times a day AMOXICILLIN 24873101115 No Longer Active Jillina Fradebora NOWAKN Active KEFLEX 500 MG CAP 1 tab po tid CEPHALEXIN 61549659752 No Longer Active Jillina Fradebora NOWAKN Active AMOXICILLIN 500 MG TABS 2 tabs twice a day for 10 days AMOXICILLIN 65289237497 No Longer Active Jillina Frazell STOCK TRACER Active ZYRTEC ALLERGY 10 MG CAPS 1 po qd CETIRIZINE HCL 63958833568 Active Hector Love MD Active PROGRAF 1 MG CAPS 2 tabs po bid TACROLIMUS 00100881471 Active Hector Love MD Active ZOFRAN 4 MG TABS 1 po q6hr PRN Nausea ONDANSETRON HCL 83487453709 No Longer Active Ramona Diggs LPN Active AMOXICILLIN 500 MG CAPS 2 po BID x 10 days AMOXICILLIN 97836359682 No Longer Active Martha Montejo APRN Active AUGMENTIN 875-125 MG TAB 1 tab by mouth twice daily with food AMOXICILLIN-POT CLAVULANATE 92055051383 No Longer Active Hector Love MD Active LEVAQUIN 500 MG TABS 1 pill by mouth daily LEVOFLOXACIN 48526151070 No Longer Active Jen Crystal MD PhD Active LISINOPRIL 5 MG TABS 1.5 tab qd LISINOPRIL 22419919624 Active Jen Crystal MD PhD Active KETOCONAZOLE 2 % CREA apply twice a day to rash KETOCONAZOLE 08227900098 No Longer Active Hector Love MD Active AUGMENTIN 875-125 MG TAB 1 tab by mouth twice daily with food AMOXICILLIN-POT CLAVULANATE 73465330757 No Longer Active Иван Mooney MD Active LOTRISONE 0.05-1 % CREAM Apply twice a day to affected area 07/19 CLOTRIMAZOLE-BETAMETHASONE 68718931457 No Longer Active Иван Mooney MD Active FEXOFENADINE HCL 180 MG TABS 1 Daily FEXOFENADINE HCL 37398804237 No Longer Active Hector Love MD Active PROGRAF 0.5 MG CAPS Take one by mouth daily with 1 mg TACROLIMUS 86422810841 No Longer Active Hector Love MD Active AMOXICILLIN 500 MG CAPS 2 po BID x 10 days AMOXICILLIN 54874882194 No Longer Active Hector Love MD Active RAPAMUNE 1 MG TABS 3 tabs in the am SIROLIMUS 63706202490 No Longer Active Hector Love MD Active AMOXICILLIN 500 MG CAPS 2 po BID x 10 days AMOXICILLIN 81175409219 No Longer Active Hector Love MD Active LORTAB 5 5-500 MG TABS 1/2 to 1 tablet by mouth every 4 hours as needed for pain HYDROCODONE-ACETAMINOPHEN 19834575443 No Longer Active Hector Love MD Active FLUTICASONE PROPIONATE 50 MCG/ACT SUSP INSTILL 2 SPRAYS IN EACH NOSTRIL Q D FLUTICASONE PROPIONATE 35932328914 No Longer Active Hector Love MD Active PROGRAF 1 MG CAPS 1 po bid TACROLIMUS 76536553017 No Longer Active Hector Love MD Active AMOXICILLIN 875 MG TABS 1 tab by mouth twice daily AMOXICILLIN 31682935478 No Longer Active Hector Love MD Active AMOXICILLIN 500 MG CAPS 2 po BID x 10 days AMOXICILLIN 92035750040 No Longer Active Hector Love MD Active AUGMENTIN 875-125 MG TAB 1 tab by mouth twice daily with food AMOXICILLIN-POT CLAVULANATE 84017247844 No Longer Active Hector Love MD Active AZITHROMYCIN 250 MG TABS 2 po qd x 1 day, then 1 po qd x 4 days AZITHROMYCIN 05965818923 No Longer Active Hector Love MD Active CETIRIZINE HCL 10 MG TABS 1 PO Q D CETIRIZINE HCL 30159292719 No Longer Active Waleska Daisetta Active PROGRAF 1 MG CAPS 1 po bid PROGRAF 1 MG CAPS 384609 TACROLIMUS Inactive FLUTICASONE PROPIONATE 50 MCG/ACT SUSP INSTILL 2 SPRAYS IN EACH NOSTRIL Q D FLUTICASONE PROPIONATE 50 MCG/ACT SUSP 7680518 FLUTICASONE PROPIONATE Inactive LORTAB 5 5-500 MG TABS 1/2 to 1 tablet by mouth every 4 hours as needed for pain LORTAB 5 5-500 MG TABS HYDROCODONE- ACETAMINOPHEN Inactive RAPAMUNE 1 MG TABS 3 tabs in the am RAPAMUNE 1 MG TABS 555748 SIROLIMUS Inactive PROGRAF 0.5 MG CAPS Take one by mouth daily with 1 mg PROGRAF 0.5 MG CAPS 455243 TACROLIMUS Inactive FEXOFENADINE HCL 180 MG TABS 1 Daily FEXOFENADINE HCL 180 MG TABS 786420 FEXOFENADINE HCL Inactive LOTRISONE 0.05-1 % CREAM Apply twice a day to affected area 07/19 LOTRISONE 0.05-1 % CREAM 521750 CLOTRIMAZOLE-BETAMETHASONE Inactive KETOCONAZOLE 2 % CREA apply twice a day to rash KETOCONAZOLE 2 % CREA 847184 KETOCONAZOLE Inactive AUGMENTIN 875-125 MG TAB 1 tab by mouth twice daily with food AUGMENTIN 875-125 MG TAB 648209 AMOXICILLIN-POT CLAVULANATE Inactive ZOFRAN 4 MG TABS 1 po q6hr PRN Nausea ZOFRAN 4 MG TABS 368200 ONDANSETRON HCL Inactive AMOXICILLIN 500 MG TABS 2 tabs twice a day for 10 days AMOXICILLIN 500 MG TABS 321272 AMOXICILLIN Inactive FLONASE ALLERGY RELIEF 50 MCG/ACT NASAL SUSP 2 sprays each nostril daily PRN allergies FLONASE ALLERGY RELIEF 50 MCG/ACT NASAL SUSP 8535099 FLUTICASONE PROPIONATE Inactive HYDROCODONE-ACETAMINOPHEN 5-325 MG TABS 1/2 to 1 po q 4 hours prn pain 11/06 HYDROCODONE-ACETAMINOPHEN 5-325 MG TABS 283487 HYDROCODONE- ACETAMINOPHEN Inactive AMOXICILLIN 500 MG CAPS 2 po BID x 10 days AMOXICILLIN 500 MG CAPS 343664 AMOXICILLIN Inactive AMOXICILLIN 875 MG TABS 1 tab by mouth twice daily AMOXICILLIN 875 MG TABS 955402 AMOXICILLIN Inactive AMOXICILLIN 500 MG CAPS 2 po BID x 10 days AMOXICILLIN 500 MG CAPS 430582 AMOXICILLIN Inactive AMOXICILLIN 500 MG CAPS 2 po BID x 10 days AMOXICILLIN 500 MG CAPS 162493 AMOXICILLIN Inactive AUGMENTIN 875-125 MG TAB 1 tab by mouth twice daily with food AUGMENTIN 875-125 MG TAB 036528 AMOXICILLIN-POT CLAVULANATE Inactive LEVAQUIN 500 MG TABS 1 pill by mouth daily LEVAQUIN 500 MG TABS 886254 LEVOFLOXACIN Inactive AMOXICILLIN 500 MG CAPS 2 po BID x 10 days AMOXICILLIN 500 MG CAPS 167444 AMOXICILLIN Inactive AMOXICILLIN 500 MG CAPS 1 cap by mouth three times a day AMOXICILLIN 500 MG CAPS 178858 AMOXICILLIN Inactive AUGMENTIN 875-125 MG TAB 1 po BID x 10 days AUGMENTIN 875-125 MG TAB 684339 AMOXICILLIN-POT CLAVULANATE Inactive PREDNISONE 20 MG TAB 2 po qd x 4 days PREDNISONE 20 MG TAB 931488 PREDNISONE Inactive AMOXICILLIN 500 MG TABS Take two tablets by mouth every 12 hours for 10 days AMOXICILLIN 500 MG TABS 817024 AMOXICILLIN Inactive Advance Directives Directive Description Start Date PERMISSION TO SHARE Immunizations Vaccine Administration Date Value Standard Description Seasonal influenza vaccine, injectable, preservative free, for > 3 years old ( Afluria, FluLaval, Fluzone, Fluvirin, Fluarix, Agriflu(>=18 yo)) Fluzone preservative free (>=3 yrs.) [[id number]] Influenza, seasonal, injectable, preservative free Adacel (Tetanus, reduced Diphtheria, and acellular Pertussis Immunization) Adacel [JZP474] tetanus toxoid, reduced diphtheria toxoid, and acellular [...] 0.76-1.46 Encounters Code Encounter Date Provider Facility CPT-73650 Level 3 Est. Patient 09:57:24 CDT Elijahudaydenise Castrejon [facility] CPT-55729 Level 3 Est. Patient 16:31:04 CDT Иван Mooney MD [facility] CPT-48783 Level 4 Est. Patient 12:02:18 CDT Hector Love MD [facility] CPT-52067 Level 3 Est. Patient 16:14:45 CDT Hector Love MD [facility] CPT-93689 Level 3 Est. Patient 16:53:35 CDT Иван Mooney MD [facility] CPT-21678 Level 3 Est. Patient 15:57:13 CDT Martha Montejo [facility] CPT-82685 Level 3 Est. Patient 14:30:47 THREAD MILLING MACHINE SET UP OPERATOR Hector Love MD [facility] CPT-58459 Level 3 Est. Patient 14:50:45 CDT Hector Love MD [facility] CPT-82252 Level 3 Est. Patient 21:17:30 CDT Jen Crystal MD [facility] CPT-91761 Level 3 Est. Patient 09:32:55 CDT Hector Love MD [facility] CPT-88993 Level 3 Est. Patient 15:11:08 THREAD MILLING MACHINE SET UP OPERATOR Иван Mooney MD [facility] CPT-97352 Level 3 Est. Patient 16:38:53 THREAD MILLING MACHINE SET UP OPERATOR Hector Love MD [facility] CPT-82426 Level 3 Est. Patient 15:46:05 CDT Hector Love MD [facility] CPT-64694 Level 3 Est. Patient 13:59:39 CDT Hector Love MD [facility] CPT-91647 Level 3 Est. Patient 14:44:46 THREAD MILLING MACHINE SET UP OPERATOR Hector Love MD [facility] CPT-74688 Level 3 Est. Patient 17:12:27 CDT Hector Love MD [facility] CPT-37870 Level 3 Est. Patient 15:30:32 CDT Hector Love MD [facility] CPT-03339 Level 3 Est. Patient 14:24:52 CDT Иван Mooney MD [facility] CPT-33848 Level 3 Est. Patient 14:08:38 THREAD MILLING MACHINE SET UP OPERATOR Hector Love MD [facility] Procedures Code Procedure Name Date Entry Date Standard Description CPT-88519 TB Skin Test 09:57:25 CDT CPT-000 Give Appropriate Flu Vaccine 16:22:23 THREAD MILLING MACHINE SET UP OPERATOR CPT-20120 Free T4 - LAB USE ONLY 11:38:58 CDT CPT-43292 TSH - LAB USE ONLY 11:38:58 CDT CPT-81000 Venipuncture Draw Fee 11:38:58 CDT CPT-56849 Fluzone Quadrivalent Intramuscular Suspension 0.5 ML 16: 12:26 THREAD MILLING MACHINE SET UP OPERATOR CPT-74312 Immunization Single Admin 16:12:26 THREAD MILLING MACHINE SET UP OPERATOR CPT-J0561 Bicillin LA 1,200,000 u (PCN G Benzathine) 16:40:23 CDT CPT-65957 Abx/Therapy Injection 16:40:22 CDT CPT-J0561 Bicillin LA 1,200,000 u (PCN G Benzathine) 16:15:35 CDT CPT-32889 Immunization Single Admin 16:11:28 THREAD MILLING MACHINE SET UP OPERATOR CPT-38404 Fluzone Quadrivalent Intramuscular Suspension 0.5 ML 16: 11:28 THREAD MILLING MACHINE SET UP OPERATOR CPT-37563 Administration single or combination vaccine inc oral 13 :57:23 CDT CPT-38049 Menactra Intramuscular Injectable 13:57:23 CDT CPT-93765 First Vx Component - Ix admin via ID IM or jet inj without physician counseling 16:42:17 THREAD MILLING MACHINE SET UP OPERATOR CPT-56037 Fluzone preservative free (>=3 yrs.) 16:42:17 THREAD MILLING MACHINE SET UP OPERATOR 06/03 CPT-00814 Venipuncture Draw Fee 16:29:01 CDT CPT-50300 Chest 2V Frontal and Lat 16:23:56 CDT CPT-22395 Administration single or combination vaccine inc oral 13 :39:17 THREAD MILLING MACHINE SET UP OPERATOR CPT-98108 Tdap 13:39:17 THREAD MILLING MACHINE SET UP OPERATOR
--- OUTSIDE RECORDS SUMMARY | 2017-11-06 01:48 | XMS REPORT | Clinical Summary ---
Author Author Admin, LAMBERT Organization [facility] Address Unknown Phone Unavailable Allergies, [...] Gastroenteritis, viral, acute 008.8 Resolved Martha Montejo ALGEBRA TEACHER Intestinal infection due to other organism, not elsewhere classified Bronchitis 490 Resolved Hector Love MD Bronchitis, not specified as acute or chronic Pharyngitis 462 Active Иван Mooney MD Acute pharyngitis Ingrown toenail 703.0 Active Manish Castrejon ALGEBRA TEACHER Ingrowing nail Ingrown toenail, right 703.0 Active [...] q 4 hours prn pain 11/06 HYDROCODONE-ACETAMINOPHEN 56912524008 Active Hector Love MD Active AUGMENTIN 875-125 MG TAB 1 po BID x 10 days AMOXICILLIN-POT CLAVULANATE 84407332369 Active Hector Love MD Active FLONASE ALLERGY RELIEF 50 MCG/ACT NASAL SUSP 2 sprays each nostril daily PRN allergies FLUTICASONE PROPIONATE 50889996144 No Longer Active Hector Love MD Active AMOXICILLIN 500 MG CAPS 1 cap by mouth three times a day AMOXICILLIN 06060726312 No Longer Active Jillina Frazelalejandrina NOWAKN Active KEFLEX 500 MG CAP 1 tab po tid CEPHALEXIN 70999986853 No Longer Active Jillina Frazell ALGEBRA TEACHER Active AMOXICILLIN 500 MG TABS 2 tabs twice a day for 10 days AMOXICILLIN 82376167973 No Longer Active Manish Castrejon APRN Active ZYRTEC ALLERGY 10 MG CAPS 1 po qd CETIRIZINE HCL 44999653674 Active Hector Love MD Active PROGRAF 1 MG CAPS 2 tabs po bid TACROLIMUS 65331104700 Active Hector Love MD Active ZOFRAN 4 MG TABS 1 po q6hr PRN Nausea ONDANSETRON HCL 32930410538 No Longer Active Ramona Diggs LPN Active AMOXICILLIN 500 MG CAPS 2 po BID x 10 days AMOXICILLIN 19442325579 No Longer Active Martha Yohenrique ALGEBRA TEACHER Active AUGMENTIN 875-125 MG TAB 1 tab by mouth twice daily with food AMOXICILLIN-POT CLAVULANATE 06421326660 No Longer Active Hector Love MD Active LEVAQUIN 500 MG TABS 1 pill by mouth daily LEVOFLOXACIN 48767390908 No Longer Active Jen Crystal MD PhD Active LISINOPRIL 5 MG TABS 1.5 tab qd LISINOPRIL 73409876709 Active Jen Crystal MD PhD Active KETOCONAZOLE 2 % CREA apply twice a day to rash KETOCONAZOLE 02792553219 No Longer Active Hecotr Love MD Active AUGMENTIN 875-125 MG TAB 1 tab by mouth twice daily with food AMOXICILLIN-POT CLAVULANATE 44433540837 No Longer Active Иван Mooney MD Active LOTRISONE 0.05-1 % CREAM Apply twice a day to affected area 07/19 CLOTRIMAZOLE-BETAMETHASONE 25678906915 No Longer Active Иван Mooney MD Active FEXOFENADINE HCL 180 MG TABS 1 Daily FEXOFENADINE HCL 46784345673 No Longer Active Hector Love MD Active PROGRAF 0.5 MG CAPS Take one by mouth daily with 1 mg TACROLIMUS 68099300066 No Longer Active Hector Love MD Active AMOXICILLIN 500 MG CAPS 2 po BID x 10 days AMOXICILLIN 96601715027 No Longer Active Hector Love MD Active RAPAMUNE 1 MG TABS 3 tabs in the am SIROLIMUS 13525306608 No Longer Active Hector Love MD Active AMOXICILLIN 500 MG CAPS 2 po BID x 10 days AMOXICILLIN 18269767775 No Longer Active Hector Love MD Active LORTAB 5 5-500 MG TABS 1/2 to 1 tablet by mouth every 4 hours as needed for pain HYDROCODONE-ACETAMINOPHEN 37469549000 No Longer Active Hector Love MD Active FLUTICASONE PROPIONATE 50 MCG/ACT SUSP INSTILL 2 SPRAYS IN EACH NOSTRIL Q D FLUTICASONE PROPIONATE 82420020248 No Longer Active Hector Love MD Active PROGRAF 1 MG CAPS 1 po bid TACROLIMUS 66335319890 No Longer Active Hector Love MD Active AMOXICILLIN 875 MG TABS 1 tab by mouth twice daily AMOXICILLIN 63879146836 No Longer Active Hector Love MD Active AMOXICILLIN 500 MG CAPS 2 po BID x 10 days AMOXICILLIN 76768883581 No Longer Active Hector Love MD Active AUGMENTIN 875-125 MG TAB 1 tab by mouth twice daily with food AMOXICILLIN-POT CLAVULANATE 97433240096 No Longer Active Hector Love MD Active AZITHROMYCIN 250 MG TABS 2 po qd x 1 day, then 1 po qd x 4 days AZITHROMYCIN 89823427959 No Longer Active Hector Love MD Active CETIRIZINE HCL 10 MG TABS 1 PO Q D CETIRIZINE HCL 73508094741 No Longer Active Waleska Aquilla Active PROGRAF 1 MG CAPS 1 po bid PROGRAF 1 MG CAPS 341172 TACROLIMUS Inactive FLUTICASONE PROPIONATE 50 MCG/ACT SUSP INSTILL 2 SPRAYS IN EACH NOSTRIL Q D FLUTICASONE PROPIONATE 50 MCG/ACT SUSP 788544 FLUTICASONE PROPIONATE Inactive LORTAB 5 5-500 MG TABS 1/2 to 1 tablet by mouth every 4 hours as needed for pain LORTAB 5 5-500 MG TABS HYDROCODONE- ACETAMINOPHEN Inactive RAPAMUNE 1 MG TABS 3 tabs in the am RAPAMUNE 1 MG TABS 741276 SIROLIMUS Inactive PROGRAF 0.5 MG CAPS Take one by mouth daily with 1 mg PROGRAF 0.5 MG CAPS 805415 TACROLIMUS Inactive FEXOFENADINE HCL 180 MG TABS 1 Daily FEXOFENADINE HCL 180 MG TABS 945532 FEXOFENADINE HCL Inactive LOTRISONE 0.05-1 % CREAM Apply twice a day to affected area 07/19 LOTRISONE 0.05-1 % CREAM 352246 CLOTRIMAZOLE-BETAMETHASONE Inactive KETOCONAZOLE 2 % CREA apply twice a day to rash KETOCONAZOLE 2 % CREA 401558 KETOCONAZOLE Inactive AUGMENTIN 875-125 MG TAB 1 tab by mouth twice daily with food AUGMENTIN 875-125 MG TAB 594555 AMOXICILLIN-POT CLAVULANATE Inactive ZOFRAN 4 MG TABS 1 po q6hr PRN Nausea ZOFRAN 4 MG TABS 475900 ONDANSETRON HCL Inactive AMOXICILLIN 500 MG TABS 2 tabs twice a day for 10 days AMOXICILLIN 500 MG TABS 901347 AMOXICILLIN Inactive FLONASE ALLERGY RELIEF 50 MCG/ACT NASAL SUSP 2 sprays each nostril daily PRN allergies FLONASE ALLERGY RELIEF 50 MCG/ACT NASAL SUSP 615520 FLUTICASONE PROPIONATE Inactive AMOXICILLIN 500 MG CAPS 2 po BID x 10 days AMOXICILLIN 500 MG CAPS 889730 AMOXICILLIN Inactive AMOXICILLIN 875 MG TABS 1 tab by mouth twice daily AMOXICILLIN 875 MG TABS 829230 AMOXICILLIN Inactive AMOXICILLIN 500 MG CAPS 2 po BID x 10 days AMOXICILLIN 500 MG CAPS 920813 AMOXICILLIN Inactive AMOXICILLIN 500 MG CAPS 2 po BID x 10 days AMOXICILLIN 500 MG CAPS 947292 AMOXICILLIN Inactive AUGMENTIN 875-125 MG TAB 1 tab by mouth twice daily with food AUGMENTIN 875-125 MG TAB 466810 AMOXICILLIN-POT CLAVULANATE Inactive LEVAQUIN 500 MG TABS 1 pill by mouth daily LEVAQUIN 500 MG TABS 682002 LEVOFLOXACIN Inactive AMOXICILLIN 500 MG CAPS 2 po BID x 10 days AMOXICILLIN 500 MG CAPS 855394 AMOXICILLIN Inactive AMOXICILLIN 500 MG CAPS 1 cap by mouth three times a day AMOXICILLIN 500 MG CAPS 926978 AMOXICILLIN Inactive Advance Directives Directive Description Start Date PERMISSION TO SHARE Immunizations Vaccine Administration Date Value Standard Description Seasonal influenza vaccine, injectable, preservative free, for > 3 years old ( Afluria, FluLaval, Fluzone, Fluvirin, Fluarix, Agriflu(>=18 yo)) Fluzone preservative free (>=3 yrs.) [[id number]] Influenza, seasonal, injectable, preservative free Adacel (Tetanus, reduced Diphtheria, and acellular Pertussis Immunization) Adacel [[id number]] tetanus toxoid, reduced diphtheria toxoid, and acellular [...] Negative Encounters Code Encounter Date Provider Facility [facility]-[id number] Level 3 Est. Patient 16:14:45 CDT Hector Love MD [facility] CPT-17445 Level 3 Est. Patient 16:53:35 CDT Иван Mooney MD [facility]-23847 Level 3 Est. Patient 15:57:13 CDT Martha Montejo ALGEBRA TEACHER [facility] CPT-70961 Level 3 Est. Patient 14:30:47 GUIDE DOG INSTRUCTOR Hecotr Lvoe MD [facility]-21198 Level 3 Est. Patient 14:50:45 CDT Hector Love MD [facility] CPT-74561 Level 3 Est. Patient 21:17:30 CDT Jen Crystal MD PhD [facility] CPT-54776 Level 3 Est. Patient 09:32:55 CDT Hector Love MD [facility] CPT-65769 Level 3 Est. Patient 15:11:08 GUIDE DOG INSTRUCTOR Иван Mooney MD [facility]-94062 Level 3 Est. Patient 16:38:53 GUIDE DOG INSTRUCTOR Hector Love MD [facility]-81297 Level 3 Est. Patient 15:46:05 CDT Hector Love MD [facility] CPT-42738 Level 3 Est. Patient 13:59:39 CDT Hector Love MD [facility]-10115 Level 3 Est. Patient 14:44:46 GUIDE DOG INSTRUCTOR Hector Love MD [facility]-34478 Level 3 Est. Patient 17:12:27 CDT Hector Love MD [facility] CPT-52954 Level 3 Est. Patient 15:30:32 CDT Hector Love MD [facility] CPT-01754 Level 3 Est. Patient 14:24:52 CDT Иван Mooney MD [facility] CPT-69491 Level 3 Est. Patient 14:08:38 GUIDE DOG INSTRUCTOR Hector Love MD [facility] Procedures Code Procedure Name Date Entry Date Standard Description CPT-40342 Fluzone Quadrivalent Intramuscular Suspension 0.5 ML 16: 12:26 GUIDE DOG INSTRUCTOR CPT-98572 Immunization Single Admin 16:12:26 GUIDE DOG INSTRUCTOR CPT-J0561 Bicillin LA 1,200,000 u (PCN G Benzathine) 16:40:23 CDT CPT-40374 Abx/Therapy Injection 16:40:22 CDT CPT-J0561 Bicillin LA 1,200,000 u (PCN G Benzathine) 16:15:35 CDT CPT-68740 Immunization Single Admin 16:11:28 GUIDE DOG INSTRUCTOR CPT-57908 Fluzone Quadrivalent Intramuscular Suspension 0.5 ML 16: 11:28 GUIDE DOG INSTRUCTOR CPT-11932 Administration single or combination vaccine inc oral 13 :57:23 CDT CPT-97768 Menactra Intramuscular Injectable 13:57:23 CDT CPT-36614 First Vx Component - Ix admin via ID IM or jet inj without physician counseling 16:42:17 GUIDE DOG INSTRUCTOR CPT-46508 Fluzone preservative free (>=3 yrs.) 16:42:17 GUIDE DOG INSTRUCTOR 06/03 CPT-13303 Venipuncture Draw Fee 16:29:01 CDT CPT-30793 Chest 2V Frontal and Lat 16:23:56 CDT CPT-27998 Administration single or combination vaccine inc oral 13 :39:17 GUIDE DOG INSTRUCTOR [facility]-57451 Tdap 13:39:17 GUIDE DOG INSTRUCTOR
--- OUTSIDE RECORDS SUMMARY | 2017-11-06 01:49 | XMS REPORT | Clinical Summary ---
Author Author Admin, LAMBERT Organization [facility] Address Unknown Phone Unavailable Allergies, [...] Gastroenteritis, viral, acute 008.8 Resolved Martha Montejo MANAGER ACTUARIAL Intestinal infection due to other organism, not elsewhere classified Bronchitis 490 Resolved Hector Love MD Bronchitis, not specified as acute or chronic Pharyngitis 462 Active Иван Mooney MD Acute pharyngitis Ingrown toenail 703.0 Active Manish Castrejon MANAGER ACTUARIAL Ingrowing nail BRONCHITIS, ACUTE ICD-466.0 Inactive Hector Love MD KNEE SPRAIN, LEFT ICD-844.9 Inactive Hector Love MD U R I ICD-465.9 Inactive Hector Love MD FH DIABETES ICD-V18.0 Inactive Hector Love MD COSTOCHRONDRITIS ICD-733.6 Inactive Hector Love MD FEVER UNSPECIFIED ICD-780.60 Inactive Hector Love MD Tinea corporis ICD-110.5 Inactive Hector Love MD Sinusitis ICD-461.9 Inactive Hector Love MD Fever ICD-780.60 Inactive Hector Love MD COUGH ICD-786.2 Inactive Hector Love MD SINUSITIS, ACUTE ICD-461.9 Inactive Hector Love MD Sinusitis, frontal, acute ICD-461.1 Inactive Hector Love MD NEED FOR PROPHYLACTIC VACCINATION WITH STREPTOCOCCUS PNEUMONIAE (PNEUMOCOCCUS) AND INFLUENZA ICD-V06.6 Inactive Hector Love MD Bronchitis ICD-490 Inactive Hector Love MD 2014 Gastroenteritis, viral, acute ICD-008.8 Inactive Martha Montejo APRN Medication List Medication Instructions Start Date Stop Date Generic Name NDC Status Provider Patient Instruction FLONASE ALLERGY RELIEF 50 MCG/ACT NASAL SUSP 2 sprays each nostril daily PRN allergies FLUTICASONE PROPIONATE 47566053655 Active Hector Love MD Active AMOXICILLIN 500 MG CAPS 1 cap by mouth three times a day AMOXICILLIN 42323003009 No Longer Active Jillina Frazell MANAGER ACTUARIAL Active KEFLEX 500 MG CAP 1 tab po tid CEPHALEXIN 58873070380 No Longer Active Jillina Frazell MANAGER ACTUARIAL Active AMOXICILLIN 500 MG TABS 2 tabs twice a day for 10 days AMOXICILLIN 01751965744 No Longer Active Jillina Frazell MANAGER ACTUARIAL Active ZYRTEC ALLERGY 10 MG CAPS 1 po qd CETIRIZINE HCL 67008408799 Active Hector Love MD Active PROGRAF 1 MG CAPS 2 tabs po bid TACROLIMUS 04461620977 Active Hector Love MD Active ZOFRAN 4 MG TABS 1 po q6hr PRN Nausea ONDANSETRON HCL 79371687802 No Longer Active Ramona Diggs LPN Active AMOXICILLIN 500 MG CAPS 2 po BID x 10 days AMOXICILLIN 76797551680 No Longer Active Marthalorie Escalantestephen GARCIA Active AUGMENTIN 875-125 MG TAB 1 tab by mouth twice daily with food AMOXICILLIN-POT CLAVULANATE 70380167085 No Longer Active Hector Love MD Active LEVAQUIN 500 MG TABS 1 pill by mouth daily LEVOFLOXACIN 15498250222 No Longer Active Jen Crystal MD PhD Active LISINOPRIL 5 MG TABS 1.5 tab qd LISINOPRIL 96793831973 Active Jen Crystal MD PhD Active KETOCONAZOLE 2 % CREA apply twice a day to rash KETOCONAZOLE 92067993152 No Longer Active Hector Love MD Active AUGMENTIN 875-125 MG TAB 1 tab by mouth twice daily with food AMOXICILLIN-POT CLAVULANATE 30150483669 No Longer Active Иван Mooney MD Active LOTRISONE 0.05-1 % CREAM Apply twice a day to affected area 07/19 CLOTRIMAZOLE-BETAMETHASONE 61262969313 No Longer Active Иван Mooney MD Active FEXOFENADINE HCL 180 MG TABS 1 Daily FEXOFENADINE HCL 16365424203 No Longer Active Hector Love MD Active PROGRAF 0.5 MG CAPS Take one by mouth daily with 1 mg TACROLIMUS 78949161042 No Longer Active Hector Love MD Active AMOXICILLIN 500 MG CAPS 2 po BID x 10 days AMOXICILLIN 53432633024 No Longer Active Hector Love MD Active RAPAMUNE 1 MG TABS 3 tabs in the am SIROLIMUS 33334564597 No Longer Active Hector Love MD Active AMOXICILLIN 500 MG CAPS 2 po BID x 10 days AMOXICILLIN 50332736567 No Longer Active Hector Love MD Active LORTAB 5 5-500 MG TABS 1/2 to 1 tablet by mouth every 4 hours as needed for pain HYDROCODONE-ACETAMINOPHEN 60866487355 No Longer Active Hector Love MD Active FLUTICASONE PROPIONATE 50 MCG/ACT SUSP INSTILL 2 SPRAYS IN EACH NOSTRIL Q D FLUTICASONE PROPIONATE 75394758223 No Longer Active Hector Love MD Active PROGRAF 1 MG CAPS 1 po bid TACROLIMUS 27489650884 No Longer Active Hector Love MD Active AMOXICILLIN 875 MG TABS 1 tab by mouth twice daily AMOXICILLIN 44062496968 No Longer Active Hector Love MD Active AMOXICILLIN 500 MG CAPS 2 po BID x 10 days AMOXICILLIN 15069933772 No Longer Active Hector Love MD Active AUGMENTIN 875-125 MG TAB 1 tab by mouth twice daily with food AMOXICILLIN-POT CLAVULANATE 12803099674 No Longer Active Hector Love MD Active AZITHROMYCIN 250 MG TABS 2 po qd x 1 day, then 1 po qd x 4 days AZITHROMYCIN 90587285642 No Longer Active Hector Love MD Active CETIRIZINE HCL 10 MG TABS 1 PO Q D CETIRIZINE HCL 77781689669 No Longer Active [facility] Active PROGRAF 1 MG CAPS 1 po bid PROGRAF 1 MG CAPS 731022 TACROLIMUS Inactive FLUTICASONE PROPIONATE 50 MCG/ACT SUSP INSTILL 2 SPRAYS IN EACH NOSTRIL Q D FLUTICASONE PROPIONATE 50 MCG/ACT SUSP 315278 FLUTICASONE PROPIONATE Inactive LORTAB 5 5-500 MG TABS 1/2 to 1 tablet by mouth every 4 hours as needed for pain LORTAB 5 5-500 MG TABS HYDROCODONE- ACETAMINOPHEN Inactive RAPAMUNE 1 MG TABS 3 tabs in the am RAPAMUNE 1 MG TABS 639453 SIROLIMUS Inactive PROGRAF 0.5 MG CAPS Take one by mouth daily with 1 mg PROGRAF 0.5 MG CAPS 915669 TACROLIMUS Inactive FEXOFENADINE HCL 180 MG TABS 1 Daily FEXOFENADINE HCL 180 MG TABS 447440 FEXOFENADINE HCL Inactive LOTRISONE 0.05-1 % CREAM Apply twice a day to affected area 07/19 LOTRISONE 0.05-1 % CREAM 615938 CLOTRIMAZOLE-BETAMETHASONE Inactive KETOCONAZOLE 2 % CREA apply twice a day to rash KETOCONAZOLE 2 % CREA 772383 KETOCONAZOLE Inactive AUGMENTIN 875-125 MG TAB 1 tab by mouth twice daily with food AUGMENTIN 875-125 MG TAB 177223 AMOXICILLIN-POT CLAVULANATE Inactive ZOFRAN 4 MG TABS 1 po q6hr PRN Nausea ZOFRAN 4 MG TABS 521821 ONDANSETRON HCL Inactive AMOXICILLIN 500 MG TABS 2 tabs twice a day for 10 days AMOXICILLIN 500 MG TABS 813977 AMOXICILLIN Inactive AMOXICILLIN 500 MG CAPS 2 po BID x 10 days AMOXICILLIN 500 MG CAPS 928027 AMOXICILLIN Inactive AMOXICILLIN 875 MG TABS 1 tab by mouth twice daily AMOXICILLIN 875 MG TABS 632555 AMOXICILLIN Inactive AMOXICILLIN 500 MG CAPS 2 po BID x 10 days AMOXICILLIN 500 MG CAPS 501907 AMOXICILLIN Inactive AMOXICILLIN 500 MG CAPS 2 po BID x 10 days AMOXICILLIN 500 MG CAPS 083547 AMOXICILLIN Inactive AUGMENTIN 875-125 MG TAB 1 tab by mouth twice daily with food AUGMENTIN 875-125 MG TAB 526980 AMOXICILLIN-POT CLAVULANATE Inactive LEVAQUIN 500 MG TABS 1 pill by mouth daily LEVAQUIN 500 MG TABS 677850 LEVOFLOXACIN Inactive AMOXICILLIN 500 MG CAPS 2 po BID x 10 days AMOXICILLIN 500 MG CAPS 384037 AMOXICILLIN Inactive AMOXICILLIN 500 MG CAPS 1 cap by mouth three times a day AMOXICILLIN 500 MG CAPS 293681 AMOXICILLIN Inactive Advance Directives Directive Description Start Date PERMISSION TO SHARE Immunizations Vaccine Administration Date Value Standard Description Seasonal influenza vaccine, injectable, preservative free, for > 3 years old ( Afluria, FluLaval, Fluzone, Fluvirin, Fluarix, Agriflu(>=18 yo)) Fluzone preservative free (>=3 yrs.) [IJM101] Influenza, seasonal, injectable, preservative free Adacel (Tetanus, reduced Diphtheria, and acellular Pertussis Immunization) Adacel [VQE304] tetanus toxoid, reduced diphtheria toxoid, and acellular [...] Negative Encounters Code Encounter Date Provider Facility CPT-98028 Level 3 Est. Patient 16:14:45 CDT Hector Love MD [facility] CPT-21956 Level 3 Est. Patient 16:53:35 CDT Иван Mooney MD [facility] CPT-50388 Level 3 Est. Patient 15:57:13 CDT Martha Montejo APRN [facility] CPT-38335 Level 3 Est. Patient 14:30:47 LOAN SECRETARY Hector Love MD [facility] CPT-27480 Level 3 Est. Patient 14:50:45 CDT Hecotr Love MD [facility] CPT-14564 Level 3 Est. Patient 21:17:30 CDT Jen Crystal MD PhD [facility] CPT-87352 Level 3 Est. Patient 09:32:55 CDT Hector Love MD [facility] CPT-11107 Level 3 Est. Patient 15:11:08 LOAN SECRETARY Иван Mooney MD [facility] CPT-28709 Level 3 Est. Patient 16:38:53 LOAN SECRETARY Hector Love MD [facility] CPT-06203 Level 3 Est. Patient 15:46:05 CDT Hector Love MD [facility] CPT-68305 Level 3 Est. Patient 13:59:39 CDT Hector Love MD [facility] CPT-32484 Level 3 Est. Patient 14:44:46 LOAN SECRETARY Hector Love MD [facility] CPT-87318 Level 3 Est. Patient 17:12:27 CDT Hector Love MD [facility] CPT-37339 Level 3 Est. Patient 15:30:32 CDT Hector Love MD [facility] CPT-17813 Level 3 Est. Patient 14:24:52 CDT Иван Mooney MD [facility] CPT-50232 Level 3 Est. Patient 14:08:38 LOAN SECRETARY Hector Love MD [facility] Procedures Code Procedure Name Date Entry Date Standard Description CPT-89188 Fluzone Quadrivalent Intramuscular Suspension 0.5 ML 16: 12:26 LOAN SECRETARY CPT-79951 Immunization Single Admin 16:12:26 LOAN SECRETARY CPT-J0561 Bicillin LA 1,200,000 u (PCN G Benzathine) 16:40:23 CDT CPT-20689 Abx/Therapy Injection 16:40:22 CDT CPT-J0561 Bicillin LA 1,200,000 u (PCN G Benzathine) 16:15:35 CDT CPT-84737 Immunization Single Admin 16:11:28 LOAN SECRETARY CPT-80599 Fluzone Quadrivalent Intramuscular Suspension 0.5 ML 16: 11:28 LOAN SECRETARY CPT-12583 Administration single or combination vaccine inc oral 13 :57:23 CDT CPT-95491 Menactra Intramuscular Injectable 13:57:23 CDT CPT-93030 First Vx Component - Ix admin via ID IM or jet inj without physician counseling 16:42:17 LOAN SECRETARY CPT-78049 Fluzone preservative free (>=3 yrs.) 16:42:17 LOAN SECRETARY 06/03 CPT-33231 Venipuncture Draw Fee 16:29:01 CDT CPT-40449 Chest 2V Frontal and Lat 16:23:56 CDT CPT-77798 Administration single or combination vaccine inc oral 13 :39:17 LOAN SECRETARY CPT-23862 Tdap 13:39:17 LOAN SECRETARY
--- OUTSIDE RECORDS SUMMARY | 2017-11-06 01:50 | XMS REPORT | Clinical Summary ---
Author Author Admin, QIE Organization [facility] Address Unknown Phone Unavailable Allergies, Adverse Reactions, [...] essential hypertension FH DIABETES V18.0 Resolved Hector Loev MD Family history of diabetes mellitus BRONCHITIS, [...] 2 po qd x 4 days PREDNISONE 99517584405 No Longer Active Hector Love MD Active HYDROCODONE-ACETAMINOPHEN 5-325 MG TABS 1/2 to 1 po q 4 hours prn pain 11/06 HYDROCODONE-ACETAMINOPHEN 56245451787 No Longer Active Hector Love MD Active FLONASE ALLERGY RELIEF 50 MCG/ACT NASAL SUSP 2 spray each nostril daily prn allergies FLUTICASONE PROPIONATE 08309510937 Active Hector Love MD Active AUGMENTIN 875-125 MG TAB 1 po BID x 10 days AMOXICILLIN-POT CLAVULANATE 89277490917 No Longer Active Hector Love MD Active FLONASE ALLERGY RELIEF 50 MCG/ACT NASAL SUSP 2 sprays each nostril daily PRN allergies FLUTICASONE PROPIONATE 31766329361 No Longer Active Hector Love MD Active AMOXICILLIN 500 MG CAPS 1 cap by mouth three times a day AMOXICILLIN 31684286499 No Longer Active Jillina Frazell MUSICAL ENGINEER Active KEFLEX 500 MG CAP 1 tab po tid CEPHALEXIN 42356330639 No Longer Active Jillina Frazell MUSICAL ENGINEER Active AMOXICILLIN 500 MG TABS 2 tabs twice a day for 10 days AMOXICILLIN 08420227423 No Longer Active Jillina Frazell MUSICAL ENGINEER Active ZYRTEC ALLERGY 10 MG CAPS 1 po qd CETIRIZINE HCL 39038779252 Active Hector Love MD Active PROGRAF 1 MG CAPS 2 tabs po bid TACROLIMUS 89957818293 Active Hector Love MD Active ZOFRAN 4 MG TABS 1 po q6hr PRN Nausea ONDANSETRON HCL 12282119165 No Longer Active Ramona Diggs LPN Active AMOXICILLIN 500 MG CAPS 2 po BID x 10 days AMOXICILLIN 88649476078 No Longer Active Martha Montejo MUSICAL ENGINEER Active AUGMENTIN 875-125 MG TAB 1 tab by mouth twice daily with food AMOXICILLIN-POT CLAVULANATE 04466674778 No Longer Active Hector Love MD Active LEVAQUIN 500 MG TABS 1 pill by mouth daily LEVOFLOXACIN 20414880038 No Longer Active Jen Crystal MD PhD Active LISINOPRIL 5 MG TABS 1.5 tab qd LISINOPRIL 56618512105 Active Jen Crystal MD PhD Active KETOCONAZOLE 2 % CREA apply twice a day to rash KETOCONAZOLE 81551685537 No Longer Active Hector Love MD Active AUGMENTIN 875-125 MG TAB 1 tab by mouth twice daily with food AMOXICILLIN-POT CLAVULANATE 30721037649 No Longer Active Иван Mooney MD Active LOTRISONE 0.05-1 % CREAM Apply twice a day to affected area 07/19 CLOTRIMAZOLE-BETAMETHASONE 39995099390 No Longer Active Иван Mooney MD Active FEXOFENADINE HCL 180 MG TABS 1 Daily FEXOFENADINE HCL 92032410588 No Longer Active Hector Love MD Active PROGRAF 0.5 MG CAPS Take one by mouth daily with 1 mg TACROLIMUS 23643071311 No Longer Active Hector Love MD Active AMOXICILLIN 500 MG CAPS 2 po BID x 10 days AMOXICILLIN 17230145137 No Longer Active Hector Love MD Active RAPAMUNE 1 MG TABS 3 tabs in the am SIROLIMUS 54542091546 No Longer Active Hector Love MD Active AMOXICILLIN 500 MG CAPS 2 po BID x 10 days AMOXICILLIN 46806507359 No Longer Active Hector Love MD Active LORTAB 5 5-500 MG TABS 1/2 to 1 tablet by mouth every 4 hours as needed for pain HYDROCODONE-ACETAMINOPHEN 36839474925 No Longer Active Hector Love MD Active FLUTICASONE PROPIONATE 50 MCG/ACT SUSP INSTILL 2 SPRAYS IN EACH NOSTRIL Q D FLUTICASONE PROPIONATE 93680053538 No Longer Active Hector Love MD Active PROGRAF 1 MG CAPS 1 po bid TACROLIMUS 72871350587 No Longer Active Hector Love MD Active AMOXICILLIN 875 MG TABS 1 tab by mouth twice daily AMOXICILLIN 38389605142 No Longer Active Hector Love MD Active AMOXICILLIN 500 MG CAPS 2 po BID x 10 days AMOXICILLIN 03182856941 No Longer Active Hector Love MD Active AUGMENTIN 875-125 MG TAB 1 tab by mouth twice daily with food AMOXICILLIN-POT CLAVULANATE 12862831132 No Longer Active Hector Love MD Active AZITHROMYCIN 250 MG TABS 2 po qd x 1 day, then 1 po qd x 4 days AZITHROMYCIN 00855410588 No Longer Active Hector Love MD Active CETIRIZINE HCL 10 MG TABS 1 PO Q D CETIRIZINE HCL 43735716150 No Longer Active [place] Active PROGRAF 1 MG CAPS 1 po bid PROGRAF 1 MG CAPS 951309 TACROLIMUS Inactive FLUTICASONE PROPIONATE 50 MCG/ACT SUSP INSTILL 2 SPRAYS IN EACH NOSTRIL Q D FLUTICASONE PROPIONATE 50 MCG/ACT SUSP 9719837 FLUTICASONE PROPIONATE Inactive LORTAB 5 5-500 MG TABS 1/2 to 1 tablet by mouth every 4 hours as needed for pain LORTAB 5 5-500 MG TABS HYDROCODONE- ACETAMINOPHEN Inactive RAPAMUNE 1 MG TABS 3 tabs in the am RAPAMUNE 1 MG TABS 843423 SIROLIMUS Inactive PROGRAF 0.5 MG CAPS Take one by mouth daily with 1 mg PROGRAF 0.5 MG CAPS 320121 TACROLIMUS Inactive FEXOFENADINE HCL 180 MG TABS 1 Daily FEXOFENADINE HCL 180 MG TABS 792222 FEXOFENADINE HCL Inactive LOTRISONE 0.05-1 % CREAM Apply twice a day to affected area 07/19 LOTRISONE 0.05-1 % CREAM 361071 CLOTRIMAZOLE-BETAMETHASONE Inactive KETOCONAZOLE 2 % CREA apply twice a day to rash KETOCONAZOLE 2 % CREA 205825 KETOCONAZOLE Inactive AUGMENTIN 875-125 MG TAB 1 tab by mouth twice daily with food AUGMENTIN 875-125 MG TAB 336524 AMOXICILLIN-POT CLAVULANATE Inactive ZOFRAN 4 MG TABS 1 po q6hr PRN Nausea ZOFRAN 4 MG TABS 874331 ONDANSETRON HCL Inactive AMOXICILLIN 500 MG TABS 2 tabs twice a day for 10 days AMOXICILLIN 500 MG TABS 642388 AMOXICILLIN Inactive FLONASE ALLERGY RELIEF 50 MCG/ACT NASAL SUSP 2 sprays each nostril daily PRN allergies FLONASE ALLERGY RELIEF 50 MCG/ACT NASAL SUSP 9429803 FLUTICASONE PROPIONATE Inactive HYDROCODONE-ACETAMINOPHEN 5-325 MG TABS 1/2 to 1 po q 4 hours prn pain 11/06 HYDROCODONE-ACETAMINOPHEN 5-325 MG TABS 451103 HYDROCODONE- ACETAMINOPHEN Inactive AMOXICILLIN 500 MG CAPS 2 po BID x 10 days AMOXICILLIN 500 MG CAPS 606329 AMOXICILLIN Inactive AMOXICILLIN 875 MG TABS 1 tab by mouth twice daily AMOXICILLIN 875 MG TABS 640331 AMOXICILLIN Inactive AMOXICILLIN 500 MG CAPS 2 po BID x 10 days AMOXICILLIN 500 MG CAPS 619426 AMOXICILLIN Inactive AMOXICILLIN 500 MG CAPS 2 po BID x 10 days AMOXICILLIN 500 MG CAPS 405690 AMOXICILLIN Inactive AUGMENTIN 875-125 MG TAB 1 tab by mouth twice daily with food AUGMENTIN 875-125 MG TAB 745111 AMOXICILLIN-POT CLAVULANATE Inactive LEVAQUIN 500 MG TABS 1 pill by mouth daily LEVAQUIN 500 MG TABS 962103 LEVOFLOXACIN Inactive AMOXICILLIN 500 MG CAPS 2 po BID x 10 days AMOXICILLIN 500 MG CAPS 968747 AMOXICILLIN Inactive AMOXICILLIN 500 MG CAPS 1 cap by mouth three times a day AMOXICILLIN 500 MG CAPS 937505 AMOXICILLIN Inactive AUGMENTIN 875-125 MG TAB 1 po BID x 10 days AUGMENTIN 875-125 MG TAB 397315 AMOXICILLIN-POT CLAVULANATE Inactive PREDNISONE 20 MG TAB 2 po qd x 4 days PREDNISONE 20 MG TAB 261367 PREDNISONE Inactive Advance Directives Directive Description Start Date PERMISSION TO SHARE Immunizations Vaccine Administration Date Value Standard Description Seasonal influenza vaccine, injectable, preservative free, for > 3 years old ( Afluria, FluLaval, Fluzone, Fluvirin, Fluarix, Agriflu(>=18 yo)) Fluzone preservative free (>=3 yrs.) [JLQ520] Influenza, seasonal, injectable, preservative free Adacel (Tetanus, reduced Diphtheria, and acellular Pertussis Immunization) Adacel [LYX368] tetanus toxoid, reduced diphtheria toxoid, and acellular [...] 0.76-1.46 Encounters Code Encounter Date Provider Facility CPT-91369 Level 4 Est. Patient 12:02:18 CDT Hector Love MD [facility] CPT-43746 Level 3 Est. Patient 16:14:45 CDT Hector Love MD [facility] CPT-19834 Level 3 Est. Patient 16:53:35 CDT Иван Mooney MD [facility] CPT-29090 Level 3 Est. Patient 15:57:13 CDT Martha Montejo RADHA [facility] CPT-79963 Level 3 Est. Patient 14:30:47 PRECISION LAYOUT WORKER Hector Love MD [facility] CPT-92841 Level 3 Est. Patient 14:50:45 CDT Hector Love MD [facility] CPT-35986 Level 3 Est. Patient 21:17:30 CDT Jen Crystal MD PhD [facility] CPT-59552 Level 3 Est. Patient 09:32:55 CDT Hector Love MD [facility] CPT-42222 Level 3 Est. Patient 15:11:08 PRECISION LAYOUT WORKER Иван Mooney MD [facility] CPT-60598 Level 3 Est. Patient 16:38:53 PRECISION LAYOUT WORKER Hector Love MD [facility] CPT-46214 Level 3 Est. Patient 15:46:05 CDT Hector Love MD [facility] CPT-29803 Level 3 Est. Patient 13:59:39 CDT Hector Love MD [facility] CPT-52617 Level 3 Est. Patient 14:44:46 PRECISION LAYOUT WORKER Hector Love MD [facility] CPT-32779 Level 3 Est. Patient 17:12:27 CDT Hector Love MD [facility] CPT-21418 Level 3 Est. Patient 15:30:32 CDT Hector Love MD [facility] CPT-39060 Level 3 Est. Patient 14:24:52 CDT Иван Mooney MD [facility] CPT-17299 Level 3 Est. Patient 14:08:38 PRECISION LAYOUT WORKER Hector Love MD [facility] Procedures Code Procedure Name Date Entry Date Standard Description CPT-61842 Free T4 - LAB USE ONLY 11:38:58 CDT CPT-08430 TSH - LAB USE ONLY 11:38:58 CDT CPT-93858 Venipuncture Draw Fee 11:38:58 CDT CPT-20342 Fluzone Quadrivalent Intramuscular Suspension 0.5 ML 16: 12:26 PRECISION LAYOUT WORKER CPT-69863 Immunization Single Admin 16:12:26 PRECISION LAYOUT WORKER CPT-J0561 Bicillin LA 1,200,000 u (PCN G Benzathine) 16:40:23 CDT CPT-93139 Abx/Therapy Injection 16:40:22 CDT CPT-J0561 Bicillin LA 1,200,000 u (PCN G Benzathine) 16:15:35 CDT CPT-52368 Immunization Single Admin 16:11:28 PRECISION LAYOUT WORKER CPT-08208 Fluzone Quadrivalent Intramuscular Suspension 0.5 ML 16: 11:28 PRECISION LAYOUT WORKER CPT-32519 Administration single or combination vaccine inc oral 13 :57:23 CDT CPT-72269 Menactra Intramuscular Injectable 13:57:23 CDT CPT-57380 First Vx Component - Ix admin via ID IM or jet inj without physician counseling 16:42:17 PRECISION LAYOUT WORKER CPT-86696 Fluzone preservative free (>=3 yrs.) 16:42:17 PRECISION LAYOUT WORKER 06/03 CPT-20224 Venipuncture Draw Fee 16:29:01 CDT CPT-21476 Chest 2V Frontal and Lat 16:23:56 CDT CPT-51111 Administration single or combination vaccine inc oral 13 :39:17 PRECISION LAYOUT WORKER [facility]-00194 Tdap 13:39:17 PRECISION LAYOUT WORKER
--- OUTSIDE RECORDS SUMMARY | 2017-11-06 01:51 | XMS REPORT | Clinical Summary ---
Author Author Admin, LAMBERT Organization [facility] Address Unknown Phone Unavailable Allergies, Adverse [...] MG CAPS 1 po qd CETIRIZINE HCL 87672594059 Active Hector Love MD Active PROGRAF 1 MG CAPS 2 tabs po bid TACROLIMUS 68613747994 Active Hector Love MD Active AMOXICILLIN 500 MG TABS 2 tabs twice a day for 10 days AMOXICILLIN 54800012741 Active Иван Mooney MD Active ZOFRAN 4 MG TABS 1 po q6hr PRN Nausea ONDANSETRON HCL 76808641289 No Longer Active Ramona Diggs LPN Active AMOXICILLIN 500 MG CAPS 2 po BID x 10 days AMOXICILLIN 17250478702 No Longer Active Martha Montejo APRN Active AUGMENTIN 875-125 MG TAB 1 tab by mouth twice daily with food AMOXICILLIN-POT CLAVULANATE 08737476293 No Longer Active Hector Love MD Active FLONASE 50 MCG/ACT SUSP 2 puffs in each nostril daily PRN Allergies FLUTICASONE PROPIONATE 30785207734 Active Hector Love MD Active LEVAQUIN 500 MG TABS 1 pill by mouth daily LEVOFLOXACIN 92798496767 No Longer Active Jen Crystal MD PhD Active LISINOPRIL 5 MG TABS 1.5 tab qd LISINOPRIL 12464705269 Active Jen Crystal MD PhD Active KETOCONAZOLE 2 % CREA apply twice a day to rash KETOCONAZOLE 16459934252 No Longer Active Hector Love MD Active AUGMENTIN 875-125 MG TAB 1 tab by mouth twice daily with food AMOXICILLIN-POT CLAVULANATE 15029565191 No Longer Active Иван Mooney MD Active LOTRISONE 0.05-1 % CREAM Apply twice a day to affected area 07/19 CLOTRIMAZOLE-BETAMETHASONE 38005070783 No Longer Active Иван Mooney MD Active FEXOFENADINE HCL 180 MG TABS 1 Daily FEXOFENADINE HCL 20671779944 No Longer Active Hector Love MD Active PROGRAF 0.5 MG CAPS Take one by mouth daily with 1 mg TACROLIMUS 09515798064 No Longer Active Hector Love MD Active AMOXICILLIN 500 MG CAPS 2 po BID x 10 days AMOXICILLIN 95140469343 No Longer Active Hector Love MD Active RAPAMUNE 1 MG TABS 3 tabs in the am SIROLIMUS 40342338961 No Longer Active Hector Love MD Active AMOXICILLIN 500 MG CAPS 2 po BID x 10 days AMOXICILLIN 57367264003 No Longer Active Hector Love MD Active LORTAB 5 5-500 MG TABS 1/2 to 1 tablet by mouth every 4 hours as needed for pain HYDROCODONE-ACETAMINOPHEN 32278919698 No Longer Active Hector Love MD Active FLUTICASONE PROPIONATE 50 MCG/ACT SUSP INSTILL 2 SPRAYS IN EACH NOSTRIL Q D FLUTICASONE PROPIONATE 51541948089 No Longer Active Hector Love MD Active PROGRAF 1 MG CAPS 1 po bid TACROLIMUS 69826238802 No Longer Active Hector Love MD Active AMOXICILLIN 875 MG TABS 1 tab by mouth twice daily AMOXICILLIN 60912608584 No Longer Active Hector Love MD Active AMOXICILLIN 500 MG CAPS 2 po BID x 10 days AMOXICILLIN 30061757233 No Longer Active Hector Love MD Active AUGMENTIN 875-125 MG TAB 1 tab by mouth twice daily with food AMOXICILLIN-POT CLAVULANATE 61378976865 No Longer Active Hector Love MD Active AZITHROMYCIN 250 MG TABS 2 po qd x 1 day, then 1 po qd x 4 days AZITHROMYCIN 14371979040 No Longer Active Hector Love MD Active CETIRIZINE HCL 10 MG TABS 1 PO Q D CETIRIZINE HCL 14076503327 No Longer Active Waleska Weston Active PROGRAF 1 MG CAPS 1 po bid PROGRAF 1 MG CAPS 584472 TACROLIMUS Inactive FLUTICASONE PROPIONATE 50 MCG/ACT SUSP INSTILL 2 SPRAYS IN EACH NOSTRIL Q D FLUTICASONE PROPIONATE 50 MCG/ACT SUSP 709399 FLUTICASONE PROPIONATE Inactive LORTAB 5 5-500 MG TABS 1/2 to 1 tablet by mouth every 4 hours as needed for pain LORTAB 5 5-500 MG TABS HYDROCODONE- ACETAMINOPHEN Inactive RAPAMUNE 1 MG TABS 3 tabs in the am RAPAMUNE 1 MG TABS 456165 SIROLIMUS Inactive PROGRAF 0.5 MG CAPS Take one by mouth daily with 1 mg PROGRAF 0.5 MG CAPS 130898 TACROLIMUS Inactive FEXOFENADINE HCL 180 MG TABS 1 Daily FEXOFENADINE HCL 180 MG TABS 616784 FEXOFENADINE HCL Inactive LOTRISONE 0.05-1 % CREAM Apply twice a day to affected area 07/19 LOTRISONE 0.05-1 % CREAM 495191 CLOTRIMAZOLE-BETAMETHASONE Inactive KETOCONAZOLE 2 % CREA apply twice a day to rash KETOCONAZOLE 2 % CREA 056148 KETOCONAZOLE Inactive AUGMENTIN 875-125 MG TAB 1 tab by mouth twice daily with food AUGMENTIN 875-125 MG TAB 045263 AMOXICILLIN-POT CLAVULANATE Inactive ZOFRAN 4 MG TABS 1 po q6hr PRN Nausea ZOFRAN 4 MG TABS 468923 ONDANSETRON HCL Inactive AMOXICILLIN 500 MG CAPS 2 po BID x 10 days AMOXICILLIN 500 MG CAPS 432725 AMOXICILLIN Inactive AMOXICILLIN 875 MG TABS 1 tab by mouth twice daily AMOXICILLIN 875 MG TABS 429290 AMOXICILLIN Inactive AMOXICILLIN 500 MG CAPS 2 po BID x 10 days AMOXICILLIN 500 MG CAPS 119002 AMOXICILLIN Inactive AMOXICILLIN 500 MG CAPS 2 po BID x 10 days AMOXICILLIN 500 MG CAPS 531979 AMOXICILLIN Inactive AUGMENTIN 875-125 MG TAB 1 tab by mouth twice daily with food AUGMENTIN 875-125 MG TAB 114094 AMOXICILLIN-POT CLAVULANATE Inactive LEVAQUIN 500 MG TABS 1 pill by mouth daily LEVAQUIN 500 MG TABS 205620 LEVOFLOXACIN Inactive AMOXICILLIN 500 MG CAPS 2 po BID x 10 days AMOXICILLIN 500 MG CAPS 330900 AMOXICILLIN Inactive Advance Directives Directive Description Start Date PERMISSION TO SHARE Immunizations Vaccine Administration Date Value Standard Description Seasonal influenza vaccine, injectable, preservative free, for > 3 years old ( Afluria, FluLaval, Fluzone, Fluvirin, Fluarix, Agriflu(>=18 yo)) Fluzone preservative free (>=3 yrs.) [YHY518] Influenza, seasonal, injectable, preservative free Adacel (Tetanus, reduced Diphtheria, and acellular Pertussis Immunization) Adacel [YRL296] tetanus toxoid, reduced diphtheria toxoid, and acellular [...] Negative-Throat Culture to Follow Negative Lab Report: RapidStrep Rflx/Cx - Lab Microbial identification kit, rapid strep method Negative Negative Encounters Code Encounter Date Provider Facility CPT-60335 Level 3 Est. Patient 16:14:45 CDT Hector Love MD [facility] CPT-24062 Level 3 Est. Patient 16:53:35 CDT Иван Mooney MD [facility] CPT-77544 Level 3 Est. Patient 15:57:13 CDT Martha Montejo APRN [facility] CPT-34382 Level 3 Est. Patient 14:30:47 [employer]ING [employer]ER Hector Love MD [facility] CPT-71726 Level 3 Est. Patient 14:50:45 CDT Hector Love MD [facility] CPT-99778 Level 3 Est. Patient 21:17:30 CDT Jen Crystal MD, PhD [facility] CPT-73356 Level 3 Est. Patient 09:32:55 CDT Hector Love MD [facility] CPT-63036 Level 3 Est. Patient 15:11:08 [employer]ER Иван Mooney MD [facility] CPT-66326 Level 3 Est. Patient 16:38:53 [employer]ING CHECKER Hector Love MD [facility] CPT-89315 Level 3 Est. Patient 15:46:05 CDT Hector Love MD [facility] CPT-37258 Level 3 Est. Patient 13:59:39 CDT Hector Love MD [facility] CPT-08859 Level 3 Est. Patient 14:44:46 BR[employer]ING CHECKER Hector Love MD [facility] CPT-54075 Level 3 Est. Patient 17:12:27 CDT Hector Love MD [facility] CPT-96678 Level 3 Est. Patient 15:30:32 CDT Hector Love MD [facility] CPT-78361 Level 3 Est. Patient 14:24:52 CDT Иван Mooney MD [facility] CPT-30150 Level 3 Est. Patient 14:08:38 [employer] CHECKER Hector Love MD [facility] Procedures Code Procedure Name Date Entry Date Standard Description CPT-J0561 Bicillin LA 1,200,000 u (PCN G Benzathine) 16:40:23 CDT CPT-06595 Abx/Therapy Injection 16:40:22 CDT CPT-J0561 Bicillin LA 1,200,000 u (PCN G Benzathine) 16:15:35 CDT CPT-16055 Immunization Single Admin 16:11:28 [employer] CHECKER CPT-70964 Fluzone Quadrivalent Intramuscular Suspension 0.5 ML 16: 11:28 BRICK P[employer]ING CHECKER CPT-30563 Administration single or combination vaccine inc oral 13 :57:23 CDT CPT-22479 Menactra Intramuscular Injectable 13:57:23 CDT CPT-35863 First Vx Component - Ix admin via ID IM or jet inj without physician counseling 16:42:17 BRICK PAVING CHECKER CPT-42266 Fluzone preservative free (>=3 yrs.) 16:42:17 BRICK PAVING CHECKER 06/03 CPT-91002 Venipuncture Draw Fee 16:29:01 CDT CPT-30625 Chest 2V Frontal and Lat 16:23:56 CDT CPT-21604 Administration single or combination vaccine inc oral 13 :39:17 BRICK PAVING CHECKER CPT-13365 Tdap 13:39:17 BRICK [employer]ING CHECKER
--- OUTSIDE RECORDS SUMMARY | 2017-11-06 01:52 | XMS REPORT | Clinical Summary ---
Author Author Admin, LAMBERT Organization [employer] Address Unknown Phone Unavailable Allergies, Adverse [...] care facility Fatigue 780.79 Active Manish Castrejon [employer] Other malaise and fatigue Body Mass Index 34.0-34.9 Adult Active Manish Castrejon [employer] Body Mass Index 34.0-34.9, adult HYPERTENSION ICD-401.9 [...] Gastroenteritis, viral, acute ICD-008.8 Inactive Martha Montejo [employer] Bronchitis ICD-490 Inactive Hetcor Love MD 2014 Pharyngitis ICD-462 Inactive Hector [...] MG ORAL CAPSULE 2 po BID TACROLIMUS 30215462316 Active Hector Love MD Active CETIRIZINE HCL 10 MG ORAL TABLET 1 po qd PRN Allergies CETIRIZINE HCL 84917978304 Active Hector Love MD Active LISINOPRIL 5 MG ORAL TABLET 1.5 po qd LISINOPRIL 16018137973 Active Hector Love MD Active FLUTICASONE PROPIONATE 50 MCG/ACT NASAL SUSPENSION 2 sprays/nostril qd PRN Congestion/Allergies FLUTICASONE PROPIONATE 58156946736 Active Hector Love MD Active VITAMIN C 500 MG ORAL TABLET CHEWABLE ASCORBIC ACID 11996025374 No Longer Active Hector Love MD Active PREDNISONE 20 MG ORAL TABLET 1 tablet daily x 2 days PREDNISONE 65807242555 No Longer Active Manish Castrejon APRN Active AMOXICILLIN 500 MG ORAL TABLET Take two tablets by mouth every 12 hours for 10 days AMOXICILLIN 63174278397 No Longer Active Иван Mooney MD Active PREDNISONE 20 MG ORAL TABLET 2 po qd x 4 days PREDNISONE 88480470447 No Longer Active Hector Love MD Active HYDROCODONE-ACETAMINOPHEN 5-325 MG ORAL TABLET 1/2 to 1 po q 4 hours prn pain HYDROCODONE-ACETAMINOPHEN 81501196817 No Longer Active Hector Love MD Active AUGMENTIN 875-125 MG ORAL TABLET 1 po BID x 10 days AMOXICILLIN-POT CLAVULANATE 16777419092 No Longer Active Hector Love MD Active FLONASE ALLERGY RELIEF 50 MCG/ACT NASAL SUSPENSION 2 sprays each nostril daily PRN allergies FLUTICASONE PROPIONATE 67255303027 No Longer Active Hector Love MD Active AMOXICILLIN 500 MG ORAL CAPSULE 1 cap by mouth three times a day AMOXICILLIN 31177880697 No Longer Active Manish Castrejon APRN Active KEFLEX 500 MG ORAL CAPSULE 1 tab po tid CEPHALEXIN 59688891457 No Longer Active Jillina Fradebora GARCIA Active AMOXICILLIN 500 MG ORAL TABLET 2 tabs twice a day for 10 days AMOXICILLIN 04113832363 No Longer Active Elijahlldenise Fradebora GARCIA Active ZOFRAN 4 MG ORAL TABLET 1 po q6hr PRN Nausea ONDANSETRON HCL 54537410743 No Longer Active Ramona Diggs LPN Active AMOXICILLIN 500 MG ORAL CAPSULE 2 po BID x 10 days AMOXICILLIN 27243571504 No Longer Active Martha Montejo APRN Active AUGMENTIN 875-125 MG ORAL TABLET 1 tab by mouth twice daily with food AMOXICILLIN-POT CLAVULANATE 30116613965 No Longer Active Hector Love MD Active LEVAQUIN 500 MG ORAL TABLET 1 pill by mouth daily LEVOFLOXACIN 30936870488 No Longer Active Jen Crystal MD PhD Active KETOCONAZOLE 2 % EXTERNAL CREAM apply twice a day to rash KETOCONAZOLE 77727398833 No Longer Active Hector Love MD Active AUGMENTIN 875-125 MG ORAL TABLET 1 tab by mouth twice daily with food AMOXICILLIN-POT CLAVULANATE 42242042669 No Longer Active Иван Mooney MD Active LOTRISONE 1-0.05 % EXTERNAL CREAM Apply twice a day to affected area CLOTRIMAZOLE-BETAMETHASONE 74275786856 No Longer Active Иван Mooney MD Active FEXOFENADINE HCL 180 MG ORAL TABLET 1 Daily FEXOFENADINE HCL 25742966765 No Longer Active Hector Love MD Active PROGRAF 0.5 MG ORAL CAPSULE Take one by mouth daily with 1 mg TACROLIMUS 72823313657 No Longer Active Hector Love MD Active AMOXICILLIN 500 MG ORAL CAPSULE 2 po BID x 10 days AMOXICILLIN 44375842233 No Longer Active Hector Love MD Active RAPAMUNE 1 MG ORAL TABLET 3 tabs in the am SIROLIMUS 46265136627 No Longer Active Hector Love MD Active AMOXICILLIN 500 MG ORAL CAPSULE 2 po BID x 10 days AMOXICILLIN 80094997281 No Longer Active Hector Love MD Active LORTAB 5-500 MG ORAL TABLET 1/2 to 1 tablet by mouth every 4 hours as needed for pain HYDROCODONE-ACETAMINOPHEN 61957734075 No Longer Active Hectro Love MD Active FLUTICASONE PROPIONATE 50 MCG/ACT NASAL SUSPENSION INSTILL 2 SPRAYS IN EACH NOSTRIL Q D FLUTICASONE PROPIONATE 50421381014 No Longer Active Hector Love MD Active PROGRAF 1 MG ORAL CAPSULE 1 po bid TACROLIMUS 97107313240 No Longer Active Hector Love MD Active AMOXICILLIN 875 MG ORAL TABLET 1 tab by mouth twice daily AMOXICILLIN 11431972579 No Longer Active Hector Love MD Active AMOXICILLIN 500 MG ORAL CAPSULE 2 po BID x 10 days AMOXICILLIN 34055064846 No Longer Active Hector Love MD Active AUGMENTIN 875-125 MG ORAL TABLET 1 tab by mouth twice daily with food AMOXICILLIN-POT CLAVULANATE 59975831129 No Longer Active Hector Love MD Active AZITHROMYCIN 250 MG ORAL TABLET 2 po qd x 1 day, then 1 po qd x 4 days 06/19 AZITHROMYCIN 02742179470 No Longer Active Hector Love MD Active CETIRIZINE HCL 10 MG ORAL TABLET 1 PO Q D CETIRIZINE HCL 02055096864 No Longer Active Waleska [place] Active PROGRAF 1 MG ORAL CAPSULE 1 po bid PROGRAF 1 MG ORAL CAPSULE 072109 TACROLIMUS Inactive FLUTICASONE PROPIONATE 50 MCG/ACT NASAL SUSPENSION INSTILL 2 SPRAYS IN EACH NOSTRIL Q D FLUTICASONE PROPIONATE 50 MCG/ACT NASAL SUSPENSION 4353769 FLUTICASONE PROPIONATE Inactive LORTAB 5-500 MG ORAL TABLET 1/2 to 1 tablet by mouth every 4 hours as needed for pain LORTAB 5-500 MG ORAL TABLET HYDROCODONE- ACETAMINOPHEN Inactive RAPAMUNE 1 MG ORAL TABLET 3 tabs in the am RAPAMUNE 1 MG ORAL TABLET 351021 SIROLIMUS Inactive PROGRAF 0.5 MG ORAL CAPSULE Take one by mouth daily with 1 mg PROGRAF 0.5 MG ORAL CAPSULE 351890 TACROLIMUS Inactive FEXOFENADINE HCL 180 MG ORAL TABLET 1 Daily FEXOFENADINE HCL 180 MG ORAL TABLET 394935 FEXOFENADINE HCL Inactive LOTRISONE 1-0.05 % EXTERNAL CREAM Apply twice a day to affected area LOTRISONE 1-0.05 % EXTERNAL CREAM 547103 CLOTRIMAZOLE- BETAMETHASONE Inactive KETOCONAZOLE 2 % EXTERNAL CREAM apply twice a day to rash KETOCONAZOLE 2 % EXTERNAL CREAM 119764 KETOCONAZOLE Inactive AUGMENTIN 875-125 MG ORAL TABLET 1 tab by mouth twice daily with food AUGMENTIN 875-125 MG ORAL TABLET 894371 AMOXICILLIN-POT CLAVULANATE Inactive ZOFRAN 4 MG ORAL TABLET 1 po q6hr PRN Nausea ZOFRAN 4 MG ORAL TABLET 794970 ONDANSETRON HCL Inactive AMOXICILLIN 500 MG ORAL TABLET 2 tabs twice a day for 10 days AMOXICILLIN 500 MG ORAL TABLET 988981 AMOXICILLIN Inactive FLONASE ALLERGY RELIEF 50 MCG/ACT NASAL SUSPENSION 2 sprays each nostril daily PRN allergies FLONASE ALLERGY RELIEF 50 MCG/ACT NASAL SUSPENSION 4827980 FLUTICASONE PROPIONATE Inactive HYDROCODONE-ACETAMINOPHEN 5-325 MG ORAL TABLET 1/2 to 1 po q 4 hours prn pain HYDROCODONE-ACETAMINOPHEN 5-325 MG ORAL TABLET 297593 HYDROCODONE-ACETAMINOPHEN Inactive PREDNISONE 20 MG ORAL TABLET 1 tablet daily x 2 days PREDNISONE 20 MG ORAL TABLET 107001 PREDNISONE Inactive VITAMIN C 500 MG ORAL TABLET CHEWABLE VITAMIN C 500 MG ORAL TABLET CHEWABLE ASCORBIC ACID Inactive AMOXICILLIN 500 MG ORAL CAPSULE 2 po BID x 10 days AMOXICILLIN 500 MG ORAL CAPSULE 089569 AMOXICILLIN Inactive AMOXICILLIN 875 MG ORAL TABLET 1 tab by mouth twice daily AMOXICILLIN 875 MG ORAL TABLET 619918 AMOXICILLIN Inactive AMOXICILLIN 500 MG ORAL CAPSULE 2 po BID x 10 days AMOXICILLIN 500 MG ORAL CAPSULE 949919 AMOXICILLIN Inactive AMOXICILLIN 500 MG ORAL CAPSULE 2 po BID x 10 days AMOXICILLIN 500 MG ORAL CAPSULE 532775 AMOXICILLIN Inactive AUGMENTIN 875-125 MG ORAL TABLET 1 tab by mouth twice daily with food AUGMENTIN 875-125 MG ORAL TABLET 785221 AMOXICILLIN-POT CLAVULANATE Inactive LEVAQUIN 500 MG ORAL TABLET 1 pill by mouth daily LEVAQUIN 500 MG ORAL TABLET 762198 LEVOFLOXACIN Inactive AMOXICILLIN 500 MG ORAL CAPSULE 2 po BID x 10 days AMOXICILLIN 500 MG ORAL CAPSULE 298394 AMOXICILLIN Inactive AMOXICILLIN 500 MG ORAL CAPSULE 1 cap by mouth three times a day AMOXICILLIN 500 MG ORAL CAPSULE 658253 AMOXICILLIN Inactive AUGMENTIN 875-125 MG ORAL TABLET 1 po BID x 10 days AUGMENTIN 875-125 MG ORAL TABLET 096359 AMOXICILLIN-POT CLAVULANATE Inactive PREDNISONE 20 MG ORAL TABLET 2 po qd x 4 days PREDNISONE 20 MG ORAL TABLET 935282 PREDNISONE Inactive AMOXICILLIN 500 MG ORAL TABLET Take two tablets by mouth every 12 hours for 10 days AMOXICILLIN 500 MG ORAL TABLET 994584 AMOXICILLIN Inactive Advance Directives Directive Description Start Date PERMISSION TO SHARE Immunizations Vaccine Administration Date Value Standard Description Seasonal influenza vaccine, injectable, preservative free, for > 3 years old ( Afluria, FluLaval, Fluzone, Fluvirin, Fluarix, Agriflu(>=18 yo)) Fluzone preservative free (>=3 yrs.) [PPH112] Influenza, seasonal, injectable, preservative free Adacel (Tetanus, reduced Diphtheria, and acellular Pertussis Immunization) Adacel [FIL751] tetanus toxoid, reduced diphtheria toxoid, and acellular [...] Panel - Chemistry sodium, serum 137 mmol/L 668-110 0122/08/14 carbon dioxide, venous blood 29.7 mmol/L 21.0-32.0 potassium, serum 4.3 mmol/L 3.5-5.2 chloride, serum 99 mmol/L 98-107 blood glucose 123 mg/dL 65-110 urea nitrogen, blood 12 mg/dL 7-18 creatinine, serum 0.84 mg/dL 0.60-1.30 alanine aminotransferase (SGPT), serum 48 U/L 12-78 aspartate aminotransferase (SGOT), serum 26 U/L 15-37 calcium, serum 9.4 mg/dL 8.5-10.1 bilirubin, serum, total 1.60 mg/dL 0.00-1.00 cholesterol, serum 141 mg/dL 939-508 8951/08/14 triglyceride, serum, fasting 54 mg/dL 30-200 HDL [...] ... - Chemistry sodium, serum 137 mmol/L 655-371 3771/04/23 carbon dioxide, venous blood 28.4 mmol/L 21.0-32.0 [...] urine Negative Negative Lab Report: VITAMIN D, 25-HYDROXY/63818 - Chemistry vitamin D 25-hydroxy, serum 18 ng/mL 30-100 vitamin D 25-hydroxy, serum 44 ng/mL 30-100 Encounters Code Encounter Date Provider Facility CPT-30648 Level 3 Est. Patient 10:49:01 OTTOT Manish Castrejon [facility] CPT-96087 Level 3 Est. Patient 11:35:07 CDT Elijahudaydenise Castrejon [facility] CPT-06115 Level 3 Est. Patient 17:22:36 CDT Tracy Frey [facility] CPT-04059 Level 3 Est. Patient 16:06:03 CDT Manish Chasel [facility] CPT-61966 Level 3 Est. Patient 09:57:24 CDT Manish Chasealejandrina [facility] CPT-40841 Level 3 Est. Patient 16:31:04 CDT Иван Mooney MD [facility] CPT-92632 Level 4 Est. Patient 12:02:18 CDT Hector Love MD [facility] CPT-30078 Level 3 Est. Patient 16:14:45 CDT Hector Love MD [facility] CPT-23640 Level 3 Est. Patient 16:53:35 CDT Иван Mooney MD [facility] CPT-76735 Level 3 Est. Patient 15:57:13 CDT Martha Nikia [facility] CPT-87825 Level 3 Est. Patient 14:30:47 PACKAGE LINE RELIEF OPERATOR Hector Love MD [facility] CPT-33569 Level 3 Est. Patient 14:50:45 CDT Hector Love MD [facility] CPT-42631 Level 3 Est. Patient 21:17:30 CDT Jen Crystal MD PhD [facility] CPT-72568 Level 3 Est. Patient 09:32:55 CDT Hector Love MD [facility]-06113 Level 3 Est. Patient 15:11:08 PACKAGE LINE RELIEF OPERATOR Иван Mooney MD [facility] CPT-77031 Level 3 Est. Patient 16:38:53 PACKAGE LINE RELIEF OPERATOR Hector Love MD [facility] CPT-08786 Level 3 Est. Patient 15:46:05 CDT Hector Love MD [facility] CPT-17715 Level 3 Est. Patient 13:59:39 CDT Hector Love MD [facility] CPT-49827 Level 3 Est. Patient 14:44:46 PACKAGE LINE RELIEF OPERATOR Hector Love MD [facility] CPT-82113 Level 3 Est. Patient 17:12:27 CDT Hector Love MD [facility] CPT-52851 Level 3 Est. Patient 15:30:32 CDT Hector Love MD [facility] CPT-25032 Level 3 Est. Patient 14:24:52 CDT Иван Mooney MD [facility] CPT-16733 Level 3 Est. Patient 14:08:38 PACKAGE LINE RELIEF OPERATOR Hector Love MD [facility] Procedures Code Procedure Name Date Entry Date Standard Description CPT-95893 Chest, 2 views 11:04:30 CDT CPT-03131 Venipuncture Draw Fee 16:18:26 CDT CPT-06833 TB Skin Test 09:57:25 CDT CPT-000 Give Appropriate Flu Vaccine 16:22:23 PACKAGE LINE RELIEF OPERATOR CPT-49092 Free T4 - LAB USE ONLY 11:38:58 CDT CPT-86658 TSH - LAB USE ONLY 11:38:58 CDT CPT-09144 Venipuncture Draw Fee 11:38:58 CDT CPT-18265 Fluzone Quadrivalent Intramuscular Suspension 0.5 ML 16: 12:26 PACKAGE LINE RELIEF OPERATOR CPT-14613 Immunization Single Admin 16:12:26 PACKAGE LINE RELIEF OPERATOR CPT-J0561 Bicillin LA 1,200,000 u (PCN G Benzathine) 16:40:23 CDT CPT-13604 Abx/Therapy Injection 16:40:22 CDT CPT-J0561 Bicillin LA 1,200,000 u (PCN G Benzathine) 16:15:35 CDT CPT-06820 Immunization Single Admin 16:11:28 PACKAGE LINE RELIEF OPERATOR CPT-45832 Fluzone Quadrivalent Intramuscular Suspension 0.5 ML 16: 11:28 PACKAGE LINE RELIEF OPERATOR CPT-24499 Administration single or combination vaccine inc oral 13 :57:23 CDT CPT-24712 Menactra Intramuscular Injectable 13:57:23 CDT CPT-68016 First Vx Component - Ix admin via ID IM or jet inj without physician counseling 16:42:17 PACKAGE LINE RELIEF OPERATOR CPT-28190 Fluzone preservative free (>=3 yrs.) 16:42:17 PACKAGE LINE RELIEF OPERATOR 06/03 CPT-86402 Venipuncture Draw Fee 16:29:01 CDT CPT-01328 Chest 2V Frontal and Lat 16:23:56 CDT CPT-24247 Administration single or combination vaccine inc oral 13 :39:17 PACKAGE LINE RELIEF OPERATOR CPT-78780 Tdap 13:39:17 PACKAGE LINE RELIEF OPERATOR
--- OUTSIDE RECORDS SUMMARY | 2017-11-06 01:53 | XMS REPORT | Clinical Summary ---
Author Author Admin, QIE Organization [facility] Address Unknown Phone Unavailable Allergies, Adverse Reactions, [...] STREPTOCOCCUS PNEUMONIAE (PNEUMOCOCCUS) AND INFLUENZA V06.6 Resolved Hectro Love MD Need for prophylactic vaccination and inoculation against Streptococcus pneumoniae [pneumococcus] and influenza Gastroenteritis, viral, acute 008.8 Resolved Martha Montejo [employer] Intestinal infection due to other organism, not [...] employment physical examination V70.0 Active Manish Castrejon [employer] Routine general medical examination at a health care facility Exposure to mononucleosis V01.79 Active Manish Castrejon [employer] Contact with or exposure to other viral [...] Hector Love MD Sinusitis ICD-461.9 Inactive Hector oLve MD Fever ICD-780.60 Inactive Hector Love MD [...] Ingrown toenail, right ICD-703.0 Nils Love MD SINUSITIS, ACUTE ICD-461.9 Inactive Hector Love MD Medication List Medication Instructions Start Date Stop Date Generic Name NDC Status Provider Patient Instruction PREDNISONE 20 MG TAB 1 tablet daily x 2 days PREDNISONE 59688452460 Active Pilo Flores DO Active AMOXICILLIN 500 MG TABS Take two tablets by mouth every 12 hours for 10 days AMOXICILLIN 30997020050 No Longer Active Иван Mooney MD Active VITAMIN C 500 MG CHEW TAB ASCORBIC ACID 16868811921 Active Иван Mooney MD Active PREDNISONE 20 MG TAB 2 po qd x 4 days PREDNISONE 14180225571 No Longer Active Hector Love MD Active HYDROCODONE-ACETAMINOPHEN 5-325 MG TABS 1/2 to 1 po q 4 hours prn pain 11/06 HYDROCODONE-ACETAMINOPHEN 82806278532 No Longer Active Hector Love MD Active FLONASE ALLERGY RELIEF 50 MCG/ACT NASAL SUSP 2 spray each nostril daily prn allergies FLUTICASONE PROPIONATE 89707622416 Active Hector Love MD Active AUGMENTIN 875-125 MG TAB 1 po BID x 10 days AMOXICILLIN-POT CLAVULANATE 42453499174 No Longer Active Hector Love MD Active FLONASE ALLERGY RELIEF 50 MCG/ACT NASAL SUSP 2 sprays each nostril daily PRN allergies FLUTICASONE PROPIONATE 07739357322 No Longer Active Hector Love MD Active AMOXICILLIN 500 MG CAPS 1 cap by mouth three times a day AMOXICILLIN 96101697263 No Longer Active Jillina Frazell [employer] Active KEFLEX 500 MG CAP 1 tab po tid CEPHALEXIN 34697282599 No Longer Active Jillina Frazell [employer] Active AMOXICILLIN 500 MG TABS 2 tabs twice a day for 10 days AMOXICILLIN 48520740657 No Longer Active Jillina Frazell [employer] Active ZYRTEC ALLERGY 10 MG CAPS 1 po qd CETIRIZINE HCL 05575029601 Active Hector Love MD Active PROGRAF 1 MG CAPS 2 tabs po bid TACROLIMUS 72107076998 Active Hector Love MD Active ZOFRAN 4 MG TABS 1 po q6hr PRN Nausea ONDANSETRON HCL 56525122539 No Longer Active Ramona Diggs LPN Active AMOXICILLIN 500 MG CAPS 2 po BID x 10 days AMOXICILLIN 60824455197 No Longer Active Martha Yohenrique NOWAKN Active AUGMENTIN 875-125 MG TAB 1 tab by mouth twice daily with food AMOXICILLIN-POT CLAVULANATE 89408107736 No Longer Active Hector Love MD Active LEVAQUIN 500 MG TABS 1 pill by mouth daily LEVOFLOXACIN 86290397821 No Longer Active Jen Crytsal MD PhD Active LISINOPRIL 5 MG TABS 1.5 tab qd LISINOPRIL 44813214440 Active Jen Crystal MD PhD Active KETOCONAZOLE 2 % CREA apply twice a day to rash KETOCONAZOLE 11761528969 No Longer Active Hector Love MD Active AUGMENTIN 875-125 MG TAB 1 tab by mouth twice daily with food AMOXICILLIN-POT CLAVULANATE 39271016817 No Longer Active Иван Mooney MD Active LOTRISONE 0.05-1 % CREAM Apply twice a day to affected area 07/19 CLOTRIMAZOLE-BETAMETHASONE 91974314815 No Longer Active Иван Mooney MD Active FEXOFENADINE HCL 180 MG TABS 1 Daily FEXOFENADINE HCL 34566818778 No Longer Active Hector Love MD Active PROGRAF 0.5 MG CAPS Take one by mouth daily with 1 mg TACROLIMUS 85029973848 No Longer Active Hector Love MD Active AMOXICILLIN 500 MG CAPS 2 po BID x 10 days AMOXICILLIN 00500868489 No Longer Active Hector Love MD Active RAPAMUNE 1 MG TABS 3 tabs in the am SIROLIMUS 28479963394 No Longer Active Hector Love MD Active AMOXICILLIN 500 MG CAPS 2 po BID x 10 days AMOXICILLIN 62342869384 No Longer Active Hector Love MD Active LORTAB 5 5-500 MG TABS 1/2 to 1 tablet by mouth every 4 hours as needed for pain HYDROCODONE-ACETAMINOPHEN 15787102684 No Longer Active Hector Love MD Active FLUTICASONE PROPIONATE 50 MCG/ACT SUSP INSTILL 2 SPRAYS IN EACH NOSTRIL Q D FLUTICASONE PROPIONATE 18693906081 No Longer Active Hector Love MD Active PROGRAF 1 MG CAPS 1 po bid TACROLIMUS 01178816327 No Longer Active Hector Love MD Active AMOXICILLIN 875 MG TABS 1 tab by mouth twice daily AMOXICILLIN 04383434362 No Longer Active Hector Love MD Active AMOXICILLIN 500 MG CAPS 2 po BID x 10 days AMOXICILLIN 32741453983 No Longer Active Hector Love MD Active AUGMENTIN 875-125 MG TAB 1 tab by mouth twice daily with food AMOXICILLIN-POT CLAVULANATE 38252105327 No Longer Active Hector Love MD Active AZITHROMYCIN 250 MG TABS 2 po qd x 1 day, then 1 po qd x 4 days AZITHROMYCIN 17397254574 No Longer Active Hector Love MD Active CETIRIZINE HCL 10 MG TABS 1 PO Q D CETIRIZINE HCL 62059845822 No Longer Active Waleska Levy Active PROGRAF 1 MG CAPS 1 po bid PROGRAF 1 MG CAPS 768754 TACROLIMUS Inactive FLUTICASONE PROPIONATE 50 MCG/ACT SUSP INSTILL 2 SPRAYS IN EACH NOSTRIL Q D FLUTICASONE PROPIONATE 50 MCG/ACT SUSP 6950884 FLUTICASONE PROPIONATE Inactive LORTAB 5 5-500 MG TABS 1/2 to 1 tablet by mouth every 4 hours as needed for pain LORTAB 5 5-500 MG TABS HYDROCODONE- ACETAMINOPHEN Inactive RAPAMUNE 1 MG TABS 3 tabs in the am RAPAMUNE 1 MG TABS 615106 SIROLIMUS Inactive PROGRAF 0.5 MG CAPS Take one by mouth daily with 1 mg PROGRAF 0.5 MG CAPS 278690 TACROLIMUS Inactive FEXOFENADINE HCL 180 MG TABS 1 Daily FEXOFENADINE HCL 180 MG TABS 765999 FEXOFENADINE HCL Inactive LOTRISONE 0.05-1 % CREAM Apply twice a day to affected area 07/19 LOTRISONE 0.05-1 % CREAM 329993 CLOTRIMAZOLE-BETAMETHASONE Inactive KETOCONAZOLE 2 % CREA apply twice a day to rash KETOCONAZOLE 2 % CREA 294423 KETOCONAZOLE Inactive AUGMENTIN 875-125 MG TAB 1 tab by mouth twice daily with food AUGMENTIN 875-125 MG TAB 547832 AMOXICILLIN-POT CLAVULANATE Inactive ZOFRAN 4 MG TABS 1 po q6hr PRN Nausea ZOFRAN 4 MG TABS 216869 ONDANSETRON HCL Inactive AMOXICILLIN 500 MG TABS 2 tabs twice a day for 10 days AMOXICILLIN 500 MG TABS 556961 AMOXICILLIN Inactive FLONASE ALLERGY RELIEF 50 MCG/ACT NASAL SUSP 2 sprays each nostril daily PRN allergies FLONASE ALLERGY RELIEF 50 MCG/ACT NASAL SUSP 5225609 FLUTICASONE PROPIONATE Inactive HYDROCODONE-ACETAMINOPHEN 5-325 MG TABS 1/2 to 1 po q 4 hours prn pain 11/06 HYDROCODONE-ACETAMINOPHEN 5-325 MG TABS 824055 HYDROCODONE- ACETAMINOPHEN Inactive AMOXICILLIN 500 MG CAPS 2 po BID x 10 days AMOXICILLIN 500 MG CAPS 577007 AMOXICILLIN Inactive AMOXICILLIN 875 MG TABS 1 tab by mouth twice daily AMOXICILLIN 875 MG TABS 544401 AMOXICILLIN Inactive AMOXICILLIN 500 MG CAPS 2 po BID x 10 days AMOXICILLIN 500 MG CAPS 516500 AMOXICILLIN Inactive AMOXICILLIN 500 MG CAPS 2 po BID x 10 days AMOXICILLIN 500 MG CAPS 249033 AMOXICILLIN Inactive AUGMENTIN 875-125 MG TAB 1 tab by mouth twice daily with food AUGMENTIN 875-125 MG TAB 688590 AMOXICILLIN-POT CLAVULANATE Inactive LEVAQUIN 500 MG TABS 1 pill by mouth daily LEVAQUIN 500 MG TABS 062385 LEVOFLOXACIN Inactive AMOXICILLIN 500 MG CAPS 2 po BID x 10 days AMOXICILLIN 500 MG CAPS 771004 AMOXICILLIN Inactive AMOXICILLIN 500 MG CAPS 1 cap by mouth three times a day AMOXICILLIN 500 MG CAPS 023502 AMOXICILLIN Inactive AUGMENTIN 875-125 MG TAB 1 po BID x 10 days AUGMENTIN 875-125 MG TAB 578179 AMOXICILLIN-POT CLAVULANATE Inactive PREDNISONE 20 MG TAB 2 po qd x 4 days PREDNISONE 20 MG TAB 747303 PREDNISONE Inactive AMOXICILLIN 500 MG TABS Take two tablets by mouth every 12 hours for 10 days AMOXICILLIN 500 MG TABS 181512 AMOXICILLIN Inactive Advance Directives Directive Description Start Date PERMISSION TO SHARE Immunizations Vaccine Administration Date Value Standard Description Seasonal influenza vaccine, injectable, preservative free, for > 3 years old ( Afluria, FluLaval, Fluzone, Fluvirin, Fluarix, Agriflu(>=18 yo)) Fluzone preservative free (>=3 yrs.) [[id number]] Influenza, seasonal, injectable, preservative free Adacel (Tetanus, reduced Diphtheria, and acellular Pertussis Immunization) Adacel [VWC672] tetanus toxoid, reduced diphtheria toxoid, and acellular [...] Panel - Chemistry sodium, serum 137 mmol/L 400-939 5369/08/14 carbon dioxide, venous blood 29.7 mmol/L 21.0-32.0 potassium, serum 4.3 mmol/L 3.5-5.2 chloride, serum 99 mmol/L 98-107 blood glucose 123 mg/dL 65-110 urea nitrogen, blood 12 mg/dL 7-18 creatinine, serum 0.84 mg/dL 0.60-1.30 alanine aminotransferase (SGPT), serum 48 U/L 12-78 aspartate aminotransferase (SGOT), serum 26 U/L 15-37 calcium, serum 9.4 mg/dL 8.5-10.1 bilirubin, serum, total 1.60 mg/dL 0.00-1.00 cholesterol, serum 141 mg/dL 339-411 8924/08/14 triglyceride, serum, fasting 54 mg/dL 30-200 HDL [...] semiquantitative 6.0 5.0-8.5 Lab Report: VITAMIN D, 25-HYDROXY/29450 - Chemistry vitamin D 25-hydroxy, serum 18 ng/mL 30-100 Encounters Code Encounter Date Provider Facility CPT-91616 Level 3 Est. [facility] Patient 16:06:03 CDT Manish Castrejon [facility]-[id number] Level 3 Est. Patient 09:57:24 CDT Manish Castrejon [facility] CPT-57514 Level 3 Est. Patient 16:31:04 CDT Иван Mooney MD [facility] CPT-22262 Level 4 Est. Patient 12:02:18 CDT Hector Love MD [facility] CPT-47480 Level 3 Est. Patient 16:14:45 CDT Hector Love MD [facility] CPT-89115 Level 3 Est. Patient 16:53:35 CDT Иван Mooney MD [facility] CPT-08471 Level 3 Est. Patient 15:57:13 CDT Martha Montejo [facility] CPT-08331 Level 3 Est. Patient 14:30:47 CAMPUS RECEPTIONIST Hector Love MD [facility] CPT-72882 Level 3 Est. Patient 14:50:45 CDT Hector Love MD [facility] CPT-37953 Level 3 Est. Patient 21:17:30 CDT Jen Crystal MD PhD [facility] CPT-30344 Level 3 Est. Patient 09:32:55 CDT Hector Love MD [facility] CPT-43885 Level 3 Est. Patient 15:11:08 CAMPUS RECEPTIONIST Иван Mooney MD [facility] CPT-78195 Level 3 Est. Patient 16:38:53 CAMPUS RECEPTIONIST Hector Love MD [facility] CPT-17790 Level 3 Est. Patient 15:46:05 CDT Hector Love MD [facility] CPT-95208 Level 3 Est. Patient 13:59:39 CDT Hector Love MD [facility] CPT-77439 Level 3 Est. Patient 14:44:46 CAMPUS RECEPTIONIST Hector Love MD [facility] CPT-50025 Level 3 Est. Patient 17:12:27 CDT Hector Love MD [facility] CPT-35143 Level 3 Est. Patient 15:30:32 CDT Hector Love MD [facility] CPT-97455 Level 3 Est. Patient 14:24:52 CDT Иван Mooney MD [facility] CPT-50703 Level 3 Est. Patient 14:08:38 CAMPUS RECEPTIONIST Hector Love MD [facility] Procedures Code Procedure Name Date Entry Date Standard Description CPT-45814 Venipuncture Draw Fee 16:18:26 CDT CPT-49544 TB Skin Test 09:57:25 CDT CPT-000 Give Appropriate Flu Vaccine 16:22:23 CAMPUS RECEPTIONIST CPT-78694 Free T4 - LAB USE ONLY 11:38:58 CDT CPT-87007 TSH - LAB USE ONLY 11:38:58 CDT CPT-01310 Venipuncture Draw Fee 11:38:58 CDT CPT-71618 Fluzone Quadrivalent Intramuscular Suspension 0.5 ML 16: 12:26 CAMPUS RECEPTIONIST CPT-46938 Immunization Single Admin 16:12:26 CAMPUS RECEPTIONIST CPT-J0561 Bicillin LA 1,200,000 u (PCN G Benzathine) 16:40:23 CDT CPT-95721 Abx/Therapy Injection 16:40:22 CDT CPT-J0561 Bicillin LA 1,200,000 u (PCN G Benzathine) 16:15:35 CDT CPT-46002 Immunization Single Admin 16:11:28 CAMPUS RECEPTIONIST CPT-52517 Fluzone Quadrivalent Intramuscular Suspension 0.5 ML 16: 11:28 CAMPUS RECEPTIONIST CPT-34224 Administration single or combination vaccine inc oral 13 :57:23 CDT CPT-01757 Menactra Intramuscular Injectable 13:57:23 CDT CPT-97711 First Vx Component - Ix admin via ID IM or jet inj without physician counseling 16:42:17 CAMPUS RECEPTIONIST CPT-88518 Fluzone preservative free (>=3 yrs.) 16:42:17 CAMPUS RECEPTIONIST 06/03 CPT-56407 Venipuncture Draw Fee 16:29:01 CDT CPT-67482 Chest 2V Frontal and Lat 16:23:56 CDT CPT-24844 Administration single or combination vaccine inc oral 13 :39:17 CAMPUS RECEPTIONIST CPT-44896 Tdap 13:39:17 CAMPUS RECEPTIONIST
--- OUTSIDE RECORDS SUMMARY | 2017-11-06 01:54 | XMS REPORT | Clinical Summary ---
Author Author Admin, LAMBERT Organization [employer] Address Unknown Phone Unavailable Allergies, Adverse [...] STREPTOCOCCUS PNEUMONIAE (PNEUMOCOCCUS) AND INFLUENZA V06.6 Resolved Hetcor Love MD Need for prophylactic vaccination and inoculation against Streptococcus pneumoniae [pneumococcus] and influenza Gastroenteritis, viral, acute 008.8 Resolved Martha Montejo LIBRARY SUPERVISOR Intestinal infection due to other organism, not [...] employment physical examination V70.0 Active Manish Castrejon LIBRARY SUPERVISOR Routine general medical examination at a health care facility Exposure to mononucleosis V01.79 Active Manish Castrejon LIBRARY SUPERVISOR Contact with or exposure to other viral diseases FH DIABETES ICD-V18.0 Inactive Hector Love MD 2012/10/ 15 BRONCHITIS, ACUTE ICD-466.0 Inactive Hector Love MD KNEE SPRAIN, LEFT ICD-844.9 Inactive Hector Love MD U R I ICD-465.9 Inactive Hector Love MD COUGH ICD-786.2 Inactive Hector Love MD COSTOCHRONDRITIS ICD-733.6 Inactive Hector Love MD SINUSITIS, ACUTE ICD-461.9 Inactive Hectro Love MD FEVER UNSPECIFIED ICD-780.60 Inactive Hector [...] every 12 hours for 10 days AMOXICILLIN 10548999869 No Longer Active Иван Mooney MD Active VITAMIN C 500 MG CHEW TAB ASCORBIC ACID 47187472832 Active Иван Mooney MD Active PREDNISONE 20 MG TAB 2 po qd x 4 days PREDNISONE 83601356694 No Longer Active Hector Love MD Active HYDROCODONE-ACETAMINOPHEN 5-325 MG TABS 1/2 to 1 po q 4 hours prn pain 11/06 HYDROCODONE-ACETAMINOPHEN 40745067845 No Longer Active Hector Love MD Active FLONASE ALLERGY RELIEF 50 MCG/ACT NASAL SUSP 2 spray each nostril daily prn allergies FLUTICASONE PROPIONATE 20811626551 Active Hector Love MD Active AUGMENTIN 875-125 MG TAB 1 po BID x 10 days AMOXICILLIN-POT CLAVULANATE 49856592742 No Longer Active Hector Love MD Active FLONASE ALLERGY RELIEF 50 MCG/ACT NASAL SUSP 2 sprays each nostril daily PRN allergies FLUTICASONE PROPIONATE 61002713608 No Longer Active Hector Love MD Active AMOXICILLIN 500 MG CAPS 1 cap by mouth three times a day AMOXICILLIN 78941697545 No Longer Active Jillina Frazell LIBRARY SUPERVISOR Active KEFLEX 500 MG CAP 1 tab po tid CEPHALEXIN 67408854725 No Longer Active Jillina Frazell LIBRARY SUPERVISOR Active AMOXICILLIN 500 MG TABS 2 tabs twice a day for 10 days AMOXICILLIN 73284615864 No Longer Active Jillina Frazell LIBRARY SUPERVISOR Active ZYRTEC ALLERGY 10 MG CAPS 1 po qd CETIRIZINE HCL 58013058601 Active Hector Love MD Active PROGRAF 1 MG CAPS 2 tabs po bid TACROLIMUS 59567813450 Active Hector Love MD Active ZOFRAN 4 MG TABS 1 po q6hr PRN Nausea ONDANSETRON HCL 65588240383 No Longer Active Ramona Diggs LPN Active AMOXICILLIN 500 MG CAPS 2 po BID x 10 days AMOXICILLIN 12640819460 No Longer Active Martha Montejo RADHA Active AUGMENTIN 875-125 MG TAB 1 tab by mouth twice daily with food AMOXICILLIN-POT CLAVULANATE 05107536736 No Longer Active Hectro Love MD Active LEVAQUIN 500 MG TABS 1 pill by mouth daily LEVOFLOXACIN 39105370882 No Longer Active Jen Crystal MD PhD Active LISINOPRIL 5 MG TABS 1.5 tab qd LISINOPRIL 23393994396 Active Jen Crystal MD PhD Active KETOCONAZOLE 2 % CREA apply twice a day to rash KETOCONAZOLE 64219159133 No Longer Active Hector Love MD Active AUGMENTIN 875-125 MG TAB 1 tab by mouth twice daily with food AMOXICILLIN-POT CLAVULANATE 93408189989 No Longer Active Иван Mooney MD Active LOTRISONE 0.05-1 % CREAM Apply twice a day to affected area 07/19 CLOTRIMAZOLE-BETAMETHASONE 61501618246 No Longer Active Иван Mooney MD Active FEXOFENADINE HCL 180 MG TABS 1 Daily FEXOFENADINE HCL 68669490087 No Longer Active Hector Love MD Active PROGRAF 0.5 MG CAPS Take one by mouth daily with 1 mg TACROLIMUS 43800221518 No Longer Active Hector Love MD Active AMOXICILLIN 500 MG CAPS 2 po BID x 10 days AMOXICILLIN 01097262331 No Longer Active Hector Love MD Active RAPAMUNE 1 MG TABS 3 tabs in the am SIROLIMUS 15931133444 No Longer Active Hector Love MD Active AMOXICILLIN 500 MG CAPS 2 po BID x 10 days AMOXICILLIN 20067884714 No Longer Active Hector Love MD Active LORTAB 5 5-500 MG TABS 1/2 to 1 tablet by mouth every 4 hours as needed for pain HYDROCODONE-ACETAMINOPHEN 73455008968 No Longer Active Hector Love MD Active FLUTICASONE PROPIONATE 50 MCG/ACT SUSP INSTILL 2 SPRAYS IN EACH NOSTRIL Q D FLUTICASONE PROPIONATE 61645224046 No Longer Active Hector Love MD Active PROGRAF 1 MG CAPS 1 po bid TACROLIMUS 47739781329 No Longer Active Hector Love MD Active AMOXICILLIN 875 MG TABS 1 tab by mouth twice daily AMOXICILLIN 05824431524 No Longer Active Hector Love MD Active AMOXICILLIN 500 MG CAPS 2 po BID x 10 days AMOXICILLIN 64574630374 No Longer Active Hector Love MD Active AUGMENTIN 875-125 MG TAB 1 tab by mouth twice daily with food AMOXICILLIN-POT CLAVULANATE 26935572499 No Longer Active Hector Love MD Active AZITHROMYCIN 250 MG TABS 2 po qd x 1 day, then 1 po qd x 4 days AZITHROMYCIN 61396680291 No Longer Active Hector Love MD Active CETIRIZINE HCL 10 MG TABS 1 PO Q D CETIRIZINE HCL 20803012941 No Longer Active Waleska [place] Active PROGRAF 1 MG CAPS 1 po bid PROGRAF 1 MG CAPS 674602 TACROLIMUS Inactive FLUTICASONE PROPIONATE 50 MCG/ACT SUSP INSTILL 2 SPRAYS IN EACH NOSTRIL Q D FLUTICASONE PROPIONATE 50 MCG/ACT SUSP 7337734 FLUTICASONE PROPIONATE Inactive LORTAB 5 5-500 MG TABS 1/2 to 1 tablet by mouth every 4 hours as needed for pain LORTAB 5 5-500 MG TABS HYDROCODONE- ACETAMINOPHEN Inactive RAPAMUNE 1 MG TABS 3 tabs in the am RAPAMUNE 1 MG TABS 085532 SIROLIMUS Inactive PROGRAF 0.5 MG CAPS Take one by mouth daily with 1 mg PROGRAF 0.5 MG CAPS 108556 TACROLIMUS Inactive FEXOFENADINE HCL 180 MG TABS 1 Daily FEXOFENADINE HCL 180 MG TABS 262512 FEXOFENADINE HCL Inactive LOTRISONE 0.05-1 % CREAM Apply twice a day to affected area 07/19 LOTRISONE 0.05-1 % CREAM 498076 CLOTRIMAZOLE-BETAMETHASONE Inactive KETOCONAZOLE 2 % CREA apply twice a day to rash KETOCONAZOLE 2 % CREA 077358 KETOCONAZOLE Inactive AUGMENTIN 875-125 MG TAB 1 tab by mouth twice daily with food AUGMENTIN 875-125 MG TAB 916564 AMOXICILLIN-POT CLAVULANATE Inactive ZOFRAN 4 MG TABS 1 po q6hr PRN Nausea ZOFRAN 4 MG TABS 716412 ONDANSETRON HCL Inactive AMOXICILLIN 500 MG TABS 2 tabs twice a day for 10 days AMOXICILLIN 500 MG TABS 001117 AMOXICILLIN Inactive FLONASE ALLERGY RELIEF 50 MCG/ACT NASAL SUSP 2 sprays each nostril daily PRN allergies FLONASE ALLERGY RELIEF 50 MCG/ACT NASAL SUSP 1657410 FLUTICASONE PROPIONATE Inactive HYDROCODONE-ACETAMINOPHEN 5-325 MG TABS 1/2 to 1 po q 4 hours prn pain 11/06 HYDROCODONE-ACETAMINOPHEN 5-325 MG TABS 301553 HYDROCODONE- ACETAMINOPHEN Inactive AMOXICILLIN 500 MG CAPS 2 po BID x 10 days AMOXICILLIN 500 MG CAPS 558749 AMOXICILLIN Inactive AMOXICILLIN 875 MG TABS 1 tab by mouth twice daily AMOXICILLIN 875 MG TABS 164740 AMOXICILLIN Inactive AMOXICILLIN 500 MG CAPS 2 po BID x 10 days AMOXICILLIN 500 MG CAPS 498151 AMOXICILLIN Inactive AMOXICILLIN 500 MG CAPS 2 po BID x 10 days AMOXICILLIN 500 MG CAPS 072273 AMOXICILLIN Inactive AUGMENTIN 875-125 MG TAB 1 tab by mouth twice daily with food AUGMENTIN 875-125 MG TAB 204912 AMOXICILLIN-POT CLAVULANATE Inactive LEVAQUIN 500 MG TABS 1 pill by mouth daily LEVAQUIN 500 MG TABS 712454 LEVOFLOXACIN Inactive AMOXICILLIN 500 MG CAPS 2 po BID x 10 days AMOXICILLIN 500 MG CAPS 005949 AMOXICILLIN Inactive AMOXICILLIN 500 MG CAPS 1 cap by mouth three times a day AMOXICILLIN 500 MG CAPS 884222 AMOXICILLIN Inactive AUGMENTIN 875-125 MG TAB 1 po BID x 10 days AUGMENTIN 875-125 MG TAB 375232 AMOXICILLIN-POT CLAVULANATE Inactive PREDNISONE 20 MG TAB 2 po qd x 4 days PREDNISONE 20 MG TAB 894943 PREDNISONE Inactive AMOXICILLIN 500 MG TABS Take two tablets by mouth every 12 hours for 10 days AMOXICILLIN 500 MG TABS 739807 AMOXICILLIN Inactive Advance Directives Directive Description Start Date PERMISSION TO SHARE Immunizations Vaccine Administration Date Value Standard Description Seasonal influenza vaccine, injectable, preservative free, for > 3 years old ( Afluria, FluLaval, Fluzone, Fluvirin, Fluarix, Agriflu(>=18 yo)) Fluzone preservative free (>=3 yrs.) [[id number]] Influenza, seasonal, injectable, preservative free Adacel (Tetanus, reduced Diphtheria, and acellular Pertussis Immunization) Adacel [[id number]] tetanus toxoid, reduced diphtheria toxoid, and acellular [...] Panel - Chemistry sodium, serum 137 mmol/L 070-318 8960/08/14 carbon dioxide, venous blood 29.7 mmol/L 21.0-32.0 potassium, serum 4.3 mmol/L 3.5-5.2 chloride, serum 99 mmol/L 98-107 blood glucose 123 mg/dL 65-110 urea nitrogen, blood 12 mg/dL 7-18 creatinine, serum 0.84 mg/dL 0.60-1.30 alanine aminotransferase (SGPT), serum 48 U/L 12-78 aspartate aminotransferase (SGOT), serum 26 U/L 15-37 calcium, serum 9.4 mg/dL 8.5-10.1 bilirubin, serum, total 1.60 mg/dL 0.00-1.00 cholesterol, serum 141 mg/dL 700-752 9865/08/14 triglyceride, serum, fasting 54 mg/dL 30-200 HDL [...] semiquantitative 6.0 5.0-8.5 Lab Report: VITAMIN D, 25-HYDROXY/[id number] - Chemistry vitamin D 25-hydroxy, serum 18 ng/mL 30-100 Encounters Code Encounter Date Provider Facility CPT-41643 Level 3 Est. Patient 16:06:03 CDT Manish Castrejon [facility] CPT-61267 Level 3 Est. Patient 09:57:24 CDT Manish Castrejon [facility] CPT-10457 Level 3 Est. Patient 16:31:04 CDT Иван Mooney MD [facility] CPT-61243 Level 4 Est. Patient 12:02:18 CDT Hector Love MD [facility] CPT-63723 Level 3 Est. Patient 16:14:45 CDT Hector Love MD [facility] CPT-59090 Level 3 Est. Patient 16:53:35 CDT Иван Mooney MD [facility] CPT-93675 Level 3 Est. Patient 15:57:13 CDT Martha Montejo [facility] CPT-57069 Level 3 Est. Patient 14:30:47 CHIEF ULTRASOUND TECHNOLOGIST Hector Love MD [facility] CPT-79587 Level 3 Est. Patient 14:50:45 CDT Hector Love MD [facility] CPT-72164 Level 3 Est. Patient 21:17:30 CDT Jen Crystal MD PhD [facility] CPT-68675 Level 3 Est. Patient 09:32:55 CDT Hector Love MD [facility] CPT-10458 Level 3 Est. Patient 15:11:08 CHIEF ULTRASOUND TECHNOLOGIST Иван Mooney MD [facility] CPT-42486 Level 3 Est. Patient 16:38:53 CHIEF ULTRASOUND TECHNOLOGIST Hector Love MD [facility] CPT-09446 Level 3 Est. Patient 15:46:05 CDT Hector Love MD [facility] CPT-96753 Level 3 Est. Patient 13:59:39 CDT Hector Love MD [facility] CPT-84570 Level 3 Est. Patient 14:44:46 CHIEF ULTRASOUND TECHNOLOGIST Hector Love MD [facility] CPT-25836 Level 3 Est. Patient 17:12:27 CDT Hector Love MD [facility] CPT-81989 Level 3 Est. Patient 15:30:32 CDT Hector Love MD [facility] CPT-82772 Level 3 Est. Patient 14:24:52 CDT Иван Mooney MD [facility] CPT-28238 Level 3 Est. Patient 14:08:38 CHIEF ULTRASOUND TECHNOLOGIST Hector Love MD [facility] Procedures Code Procedure Name Date Entry Date Standard Description CPT-99538 Venipuncture Draw Fee 16:18:26 CDT CPT-92933 TB Skin Test 09:57:25 CDT CPT-000 Give Appropriate Flu Vaccine 16:22:23 CHIEF ULTRASOUND TECHNOLOGIST CPT-65267 Free T4 - LAB USE ONLY 11:38:58 CDT CPT-78919 TSH - LAB USE ONLY 11:38:58 CDT CPT-22121 Venipuncture Draw Fee 11:38:58 CDT CPT-58599 Fluzone Quadrivalent Intramuscular Suspension 0.5 ML 16: 12:26 CHIEF ULTRASOUND TECHNOLOGIST CPT-56223 Immunization Single Admin 16:12:26 CHIEF ULTRASOUND TECHNOLOGIST CPT-J0561 Bicillin LA 1,200,000 u (PCN G Benzathine) 16:40:23 CDT CPT-27885 Abx/Therapy Injection 16:40:22 CDT CPT-J0561 Bicillin LA 1,200,000 u (PCN G Benzathine) 16:15:35 CDT CPT-86076 Immunization Single Admin 16:11:28 CHIEF ULTRASOUND TECHNOLOGIST CPT-39212 Fluzone Quadrivalent Intramuscular Suspension 0.5 ML 16: 11:28 CHIEF ULTRASOUND TECHNOLOGIST CPT-27569 Administration single or combination vaccine inc oral 13 :57:23 CDT CPT-61967 Menactra Intramuscular Injectable 13:57:23 CDT CPT-32349 First Vx Component - Ix admin via ID IM or jet inj without physician counseling 16:42:17 CHIEF ULTRASOUND TECHNOLOGIST CPT-78660 Fluzone preservative free (>=3 yrs.) 16:42:17 CHIEF ULTRASOUND TECHNOLOGIST 06/03 CPT-37350 Venipuncture Draw Fee 16:29:01 CDT CPT-84482 Chest 2V Frontal and Lat 16:23:56 CDT CPT-94015 Administration single or combination vaccine inc oral 13 :39:17 CHIEF ULTRASOUND TECHNOLOGIST CPT-88617 Tdap 13:39:17 CHIEF ULTRASOUND TECHNOLOGIST
--- OUTSIDE RECORDS SUMMARY | 2017-11-06 01:55 | XMS REPORT | Clinical Summary ---
Author Author Admin, QIE Organization [facility] [employer] Address Unknown Phone Unavailable Allergies, Adverse Reactions, [...] 2 po qd x 4 days PREDNISONE 90435317620 Active Hector Love MD Active HYDROCODONE-ACETAMINOPHEN 5-325 MG TABS 1/2 to 1 po q 4 hours prn pain 11/06 HYDROCODONE-ACETAMINOPHEN 83251597195 No Longer Active Hector Love MD Active FLONASE ALLERGY RELIEF 50 MCG/ACT NASAL SUSP 2 spray each nostril daily prn allergies FLUTICASONE PROPIONATE 84314416281 Active Hector Love MD Active AUGMENTIN 875-125 MG TAB 1 po BID x 10 days AMOXICILLIN-POT CLAVULANATE 78676967857 No Longer Active Hector Love MD Active FLONASE ALLERGY RELIEF 50 MCG/ACT NASAL SUSP 2 sprays each nostril daily PRN allergies FLUTICASONE PROPIONATE 58403386811 No Longer Active Hector Love MD Active AMOXICILLIN 500 MG CAPS 1 cap by mouth three times a day AMOXICILLIN 70130100328 No Longer Active Jillina Frazell CASE OPERATOR Active KEFLEX 500 MG CAP 1 tab po tid CEPHALEXIN 21034474824 No Longer Active Jillina Frazell CASE OPERATOR Active AMOXICILLIN 500 MG TABS 2 tabs twice a day for 10 days AMOXICILLIN 42095086887 No Longer Active Jillina Fragretal CASE OPERATOR Active ZYRTEC ALLERGY 10 MG CAPS 1 po qd CETIRIZINE HCL 81223354370 Active Hector Love MD Active PROGRAF 1 MG CAPS 2 tabs po bid TACROLIMUS 37288437521 Active Hector Love MD Active ZOFRAN 4 MG TABS 1 po q6hr PRN Nausea ONDANSETRON HCL 86737481011 No Longer Active Ramona Diggs LPN Active AMOXICILLIN 500 MG CAPS 2 po BID x 10 days AMOXICILLIN 99615270551 No Longer Active Martha Montejo CASE OPERATOR Active AUGMENTIN 875-125 MG TAB 1 tab by mouth twice daily with food AMOXICILLIN-POT CLAVULANATE 51443108548 No Longer Active Hector Love MD Active LEVAQUIN 500 MG TABS 1 pill by mouth daily LEVOFLOXACIN 20728624869 No Longer Active Jen Crystal MD PhD Active LISINOPRIL 5 MG TABS 1.5 tab qd LISINOPRIL 04747003099 Active Jen Crystal MD PhD Active KETOCONAZOLE 2 % CREA apply twice a day to rash KETOCONAZOLE 13530361182 No Longer Active Hector Love MD Active AUGMENTIN 875-125 MG TAB 1 tab by mouth twice daily with food AMOXICILLIN-POT CLAVULANATE 95975097026 No Longer Active Иван Mooney MD Active LOTRISONE 0.05-1 % CREAM Apply twice a day to affected area 07/19 CLOTRIMAZOLE-BETAMETHASONE 08328075601 No Longer Active Иван Mooney MD Active FEXOFENADINE HCL 180 MG TABS 1 Daily FEXOFENADINE HCL 25490735463 No Longer Active Hector Love MD Active PROGRAF 0.5 MG CAPS Take one by mouth daily with 1 mg TACROLIMUS 42416389450 No Longer Active Hector Love MD Active AMOXICILLIN 500 MG CAPS 2 po BID x 10 days AMOXICILLIN 47082221241 No Longer Active Hector Love MD Active RAPAMUNE 1 MG TABS 3 tabs in the am SIROLIMUS 21133754477 No Longer Active Hector Love MD Active AMOXICILLIN 500 MG CAPS 2 po BID x 10 days AMOXICILLIN 38635765632 No Longer Active Hector Love MD Active LORTAB 5 5-500 MG TABS 1/2 to 1 tablet by mouth every 4 hours as needed for pain HYDROCODONE-ACETAMINOPHEN 20504630078 No Longer Active Hector Love MD Active FLUTICASONE PROPIONATE 50 MCG/ACT SUSP INSTILL 2 SPRAYS IN EACH NOSTRIL Q D FLUTICASONE PROPIONATE 96039374976 No Longer Active Hector Love MD Active PROGRAF 1 MG CAPS 1 po bid TACROLIMUS 63145973819 No Longer Active Hector Love MD Active AMOXICILLIN 875 MG TABS 1 tab by mouth twice daily AMOXICILLIN 36986276030 No Longer Active Hector Love MD Active AMOXICILLIN 500 MG CAPS 2 po BID x 10 days AMOXICILLIN 60336390942 No Longer Active Hector Love MD Active AUGMENTIN 875-125 MG TAB 1 tab by mouth twice daily with food AMOXICILLIN-POT CLAVULANATE 28291967680 No Longer Active Hector Love MD Active AZITHROMYCIN 250 MG TABS 2 po qd x 1 day, then 1 po qd x 4 days AZITHROMYCIN 28266062347 No Longer Active Hector Love MD Active CETIRIZINE HCL 10 MG TABS 1 PO Q D CETIRIZINE HCL 32262950879 No Longer Active Waleska [place] Active PROGRAF 1 MG CAPS 1 po bid PROGRAF 1 MG CAPS 870186 TACROLIMUS Inactive FLUTICASONE PROPIONATE 50 MCG/ACT SUSP INSTILL 2 SPRAYS IN EACH NOSTRIL Q D FLUTICASONE PROPIONATE 50 MCG/ACT SUSP 1302615 FLUTICASONE PROPIONATE Inactive LORTAB 5 5-500 MG TABS 1/2 to 1 tablet by mouth every 4 hours as needed for pain LORTAB 5 5-500 MG TABS HYDROCODONE- ACETAMINOPHEN Inactive RAPAMUNE 1 MG TABS 3 tabs in the am RAPAMUNE 1 MG TABS 013394 SIROLIMUS Inactive PROGRAF 0.5 MG CAPS Take one by mouth daily with 1 mg PROGRAF 0.5 MG CAPS 977681 TACROLIMUS Inactive FEXOFENADINE HCL 180 MG TABS 1 Daily FEXOFENADINE HCL 180 MG TABS 507258 FEXOFENADINE HCL Inactive LOTRISONE 0.05-1 % CREAM Apply twice a day to affected area 07/19 LOTRISONE 0.05-1 % CREAM 538037 CLOTRIMAZOLE-BETAMETHASONE Inactive KETOCONAZOLE 2 % CREA apply twice a day to rash KETOCONAZOLE 2 % CREA 518771 KETOCONAZOLE Inactive AUGMENTIN 875-125 MG TAB 1 tab by mouth twice daily with food AUGMENTIN 875-125 MG TAB 929512 AMOXICILLIN-POT CLAVULANATE Inactive ZOFRAN 4 MG TABS 1 po q6hr PRN Nausea ZOFRAN 4 MG TABS 350254 ONDANSETRON HCL Inactive AMOXICILLIN 500 MG TABS 2 tabs twice a day for 10 days AMOXICILLIN 500 MG TABS 601089 AMOXICILLIN Inactive FLONASE ALLERGY RELIEF 50 MCG/ACT NASAL SUSP 2 sprays each nostril daily PRN allergies FLONASE ALLERGY RELIEF 50 MCG/ACT NASAL SUSP 6454622 FLUTICASONE PROPIONATE Inactive HYDROCODONE-ACETAMINOPHEN 5-325 MG TABS 1/2 to 1 po q 4 hours prn pain 11/06 HYDROCODONE-ACETAMINOPHEN 5-325 MG TABS 570380 HYDROCODONE- ACETAMINOPHEN Inactive AMOXICILLIN 500 MG CAPS 2 po BID x 10 days AMOXICILLIN 500 MG CAPS 741568 AMOXICILLIN Inactive AMOXICILLIN 875 MG TABS 1 tab by mouth twice daily AMOXICILLIN 875 MG TABS 202075 AMOXICILLIN Inactive AMOXICILLIN 500 MG CAPS 2 po BID x 10 days AMOXICILLIN 500 MG CAPS 890435 AMOXICILLIN Inactive AMOXICILLIN 500 MG CAPS 2 po BID x 10 days AMOXICILLIN 500 MG CAPS 273956 AMOXICILLIN Inactive AUGMENTIN 875-125 MG TAB 1 tab by mouth twice daily with food AUGMENTIN 875-125 MG TAB 863186 AMOXICILLIN-POT CLAVULANATE Inactive LEVAQUIN 500 MG TABS 1 pill by mouth daily LEVAQUIN 500 MG TABS 362004 LEVOFLOXACIN Inactive AMOXICILLIN 500 MG CAPS 2 po BID x 10 days AMOXICILLIN 500 MG CAPS 987025 AMOXICILLIN Inactive AMOXICILLIN 500 MG CAPS 1 cap by mouth three times a day AMOXICILLIN 500 MG CAPS 746647 AMOXICILLIN Inactive AUGMENTIN 875-125 MG TAB 1 po BID x 10 days AUGMENTIN 875-125 MG TAB 924046 AMOXICILLIN-POT CLAVULANATE Inactive Advance Directives Directive Description Start Date PERMISSION TO SHARE Immunizations Vaccine Administration Date Value Standard Description Seasonal influenza vaccine, injectable, preservative free, for > 3 years old ( Afluria, FluLaval, Fluzone, Fluvirin, Fluarix, Agriflu(>=18 yo)) Fluzone preservative free (>=3 yrs.) [[id number]] Influenza, seasonal, injectable, preservative free Adacel (Tetanus, reduced Diphtheria, and acellular Pertussis Immunization) Adacel [YBC476] tetanus toxoid, reduced diphtheria toxoid, and acellular [...] 0.76-1.46 Encounters Code Encounter Date Provider Facility CPT-84839 Level 4 Est. Patient 12:02:18 CDT Hector Love MD [facility] CPT-88504 Level 3 Est. Patient 16:14:45 CDT Hector Love MD [facility] CPT-62004 Level 3 Est. Patient 16:53:35 CDT Иван Mooney MD [facility] CPT-69075 Level 3 Est. Patient 15:57:13 CDT Martah Montejo RADHA [facility] CPT-65622 Level 3 Est. Patient 14:30:47 CASH RECONCILIATION SPECIALIST Hector Love MD [facility] CPT-40054 Level 3 Est. Patient 14:50:45 CDT Hector Love MD [facility] CPT-24970 Level 3 Est. Patient 21:17:30 CDT Jen Crystal MD PhD [facility] CPT-91191 Level 3 Est. Patient 09:32:55 CDT Hector Love MD [facility] CPT-63046 Level 3 Est. Patient 15:11:08 CASH RECONCILIATION SPECIALIST Иван Mooney MD [facility] CPT-78086 Level 3 Est. Patient 16:38:53 CASH RECONCILIATION SPECIALIST Hector Love MD [facility] CPT-79036 Level 3 Est. Patient 15:46:05 CDT Hector Love MD [facility] CPT-51476 Level 3 Est. Patient 13:59:39 CDT Hector Love MD [facility] CPT-04532 Level 3 Est. Patient 14:44:46 CASH RECONCILIATION SPECIALIST Hector Love MD [facility] CPT-78747 Level 3 Est. Patient 17:12:27 CDT Hector Love MD [facility] CPT-20071 Level 3 Est. Patient 15:30:32 CDT Hector Love MD [facility] CPT-93521 Level 3 Est. Patient 14:24:52 CDT Иван Mooney MD [facility] CPT-12341 Level 3 Est. Patient 14:08:38 CASH RECONCILIATION SPECIALIST Hector Love MD [facility] Procedures Code Procedure Name Date Entry Date Standard Description CPT-42449 Fluzone Quadrivalent Intramuscular Suspension 0.5 ML 16: 12:26 CASH RECONCILIATION SPECIALIST CPT-96070 Immunization Single Admin 16:12:26 CASH RECONCILIATION SPECIALIST CPT-J0561 Bicillin LA 1,200,000 u (PCN G Benzathine) 16:40:23 CDT CPT-28974 Abx/Therapy Injection 16:40:22 CDT CPT-J0561 Bicillin LA 1,200,000 u (PCN G Benzathine) 16:15:35 CDT CPT-21197 Immunization Single Admin 16:11:28 CASH RECONCILIATION SPECIALIST CPT-66540 Fluzone Quadrivalent Intramuscular Suspension 0.5 ML 16: 11:28 CASH RECONCILIATION SPECIALIST CPT-94890 Administration single or combination vaccine inc oral 13 :57:23 CDT CPT-59531 Menactra Intramuscular Injectable 13:57:23 CDT CPT-55527 First Vx Component - Ix admin via ID IM or jet inj without physician counseling 16:42:17 CASH RECONCILIATION SPECIALIST CPT-27242 Fluzone preservative free (>=3 yrs.) 16:42:17 CASH RECONCILIATION SPECIALIST 06/03 CPT-60254 Venipuncture Draw Fee 16:29:01 CDT CPT-36451 Chest 2V Frontal and Lat 16:23:56 CDT CPT-45018 Administration single or combination vaccine inc oral 13 :39:17 CASH RECONCILIATION SPECIALIST CPT-08362 Tdap 13:39:17 CASH RECONCILIATION SPECIALIST
--- OUTSIDE RECORDS SUMMARY | 2017-11-06 01:56 | XMS REPORT | Clinical Summary ---
Author Author Admin, LAMBERT Organization [facility] Address Unknown Phone Unavailable Allergies, Adverse Reactions, Alerts Allergy Name Reaction Description Start Date Severity Status Provider MYCINS * Critical Active Ивна Mooney MD BENADRYL Critical Active Hector Love [...] twice a day for 10 days AMOXICILLIN 92094270540 Active Иван Mooney MD Active ZOFRAN 4 MG TABS 1 po q6hr PRN Nausea ONDANSETRON HCL 35693422946 No Longer Active Ramona Diggs LPN Active AMOXICILLIN 500 MG CAPS 2 po BID x 10 days AMOXICILLIN 12917382047 No Longer Active Martha Montejo APRN Active AUGMENTIN 875-125 MG TAB 1 tab by mouth twice daily with food AMOXICILLIN-POT CLAVULANATE 65814387840 No Longer Active Hector Love MD Active FLONASE 50 MCG/ACT SUSP 2 puffs in each nostril daily PRN Allergies FLUTICASONE PROPIONATE 96528709094 Active Hector Love MD Active LEVAQUIN 500 MG TABS 1 pill by mouth daily LEVOFLOXACIN 76383546446 No Longer Active Jen Crystal MD PhD Active LISINOPRIL 5 MG TABS 1.5 tab qd LISINOPRIL 29662332076 Active Jen Crystal MD PhD Active KETOCONAZOLE 2 % CREA apply twice a day to rash KETOCONAZOLE 99923856180 No Longer Active Hector Love MD Active AUGMENTIN 875-125 MG TAB 1 tab by mouth twice daily with food AMOXICILLIN-POT CLAVULANATE 99925792574 No Longer Active Иван Mooney MD Active LOTRISONE 0.05-1 % CREAM Apply twice a day to affected area 07/19 CLOTRIMAZOLE-BETAMETHASONE 42269008203 No Longer Active Иван Mooney MD Active PROGRAF 1 MG CAPS 4 tabs po bid TACROLIMUS 11387794886 Active Hector Love MD Active FEXOFENADINE HCL 180 MG TABS 1 Daily FEXOFENADINE HCL 19048119730 No Longer Active Hector Love MD Active PROGRAF 0.5 MG CAPS Take one by mouth daily with 1 mg TACROLIMUS 81459382365 No Longer Active Hector Love MD Active AMOXICILLIN 500 MG CAPS 2 po BID x 10 days AMOXICILLIN 32727797322 No Longer Active Hector Love MD Active RAPAMUNE 1 MG TABS 3 tabs in the am SIROLIMUS 53628469494 No Longer Active Hector Love MD Active AMOXICILLIN 500 MG CAPS 2 po BID x 10 days AMOXICILLIN 14459897389 No Longer Active Hector Love MD Active LORTAB 5 5-500 MG TABS 1/2 to 1 tablet by mouth every 4 hours as needed for pain HYDROCODONE-ACETAMINOPHEN 33418060087 No Longer Active Hector Love MD Active FLUTICASONE PROPIONATE 50 MCG/ACT SUSP INSTILL 2 SPRAYS IN EACH NOSTRIL Q D FLUTICASONE PROPIONATE 54919973547 No Longer Active Hector Love MD Active PROGRAF 1 MG CAPS 1 po bid TACROLIMUS 63004415065 No Longer Active Hector Love MD Active AMOXICILLIN 875 MG TABS 1 tab by mouth twice daily AMOXICILLIN 74102581716 No Longer Active Hector Love MD Active AMOXICILLIN 500 MG CAPS 2 po BID x 10 days AMOXICILLIN 78399991515 No Longer Active Hector Love MD Active AUGMENTIN 875-125 MG TAB 1 tab by mouth twice daily with food AMOXICILLIN-POT CLAVULANATE 93596462699 No Longer Active Hector Love MD Active AZITHROMYCIN 250 MG TABS 2 po qd x 1 day, then 1 po qd x 4 days AZITHROMYCIN 38476377576 No Longer Active Hector Love MD Active CETIRIZINE HCL 10 MG TABS 1 PO Q D CETIRIZINE HCL 84954889992 No Longer Active Waleska Beaver Dams Active PROGRAF 1 MG CAPS 1 po bid PROGRAF 1 MG CAPS 544239 TACROLIMUS Inactive FLUTICASONE PROPIONATE 50 MCG/ACT SUSP INSTILL 2 SPRAYS IN EACH NOSTRIL Q D FLUTICASONE PROPIONATE 50 MCG/ACT SUSP 622108 FLUTICASONE PROPIONATE Inactive LORTAB 5 5-500 MG TABS 1/2 to 1 tablet by mouth every 4 hours as needed for pain LORTAB 5 5-500 MG TABS HYDROCODONE- ACETAMINOPHEN Inactive RAPAMUNE 1 MG TABS 3 tabs in the am RAPAMUNE 1 MG TABS 006155 SIROLIMUS Inactive PROGRAF 0.5 MG CAPS Take one by mouth daily with 1 mg PROGRAF 0.5 MG CAPS 860935 TACROLIMUS Inactive FEXOFENADINE HCL 180 MG TABS 1 Daily FEXOFENADINE HCL 180 MG TABS 484656 FEXOFENADINE HCL Inactive LOTRISONE 0.05-1 % CREAM Apply twice a day to affected area 07/19 LOTRISONE 0.05-1 % CREAM 495631 CLOTRIMAZOLE-BETAMETHASONE Inactive KETOCONAZOLE 2 % CREA apply twice a day to rash KETOCONAZOLE 2 % CREA 245675 KETOCONAZOLE Inactive AUGMENTIN 875-125 MG TAB 1 tab by mouth twice daily with food AUGMENTIN 875-125 MG TAB 501209 AMOXICILLIN-POT CLAVULANATE Inactive ZOFRAN 4 MG TABS 1 po q6hr PRN Nausea ZOFRAN 4 MG TABS 722165 ONDANSETRON HCL Inactive AMOXICILLIN 500 MG CAPS 2 po BID x 10 days AMOXICILLIN 500 MG CAPS 727480 AMOXICILLIN Inactive AMOXICILLIN 875 MG TABS 1 tab by mouth twice daily AMOXICILLIN 875 MG TABS 829222 AMOXICILLIN Inactive AMOXICILLIN 500 MG CAPS 2 po BID x 10 days AMOXICILLIN 500 MG CAPS 175820 AMOXICILLIN Inactive AMOXICILLIN 500 MG CAPS 2 po BID x 10 days AMOXICILLIN 500 MG CAPS 601688 AMOXICILLIN Inactive AUGMENTIN 875-125 MG TAB 1 tab by mouth twice daily with food AUGMENTIN 875-125 MG TAB 304722 AMOXICILLIN-POT CLAVULANATE Inactive LEVAQUIN 500 MG TABS 1 pill by mouth daily LEVAQUIN 500 MG TABS 901574 LEVOFLOXACIN Inactive AMOXICILLIN 500 MG CAPS 2 po BID x 10 days AMOXICILLIN 500 MG CAPS 510182 AMOXICILLIN Inactive Advance Directives Directive Description Start Date PERMISSION TO SHARE Immunizations Vaccine Administration Date Value Standard Description Seasonal influenza vaccine, injectable, preservative free, for > 3 years old ( Afluria, FluLaval, Fluzone, Fluvirin, Fluarix, Agriflu(>=18 yo)) Fluzone preservative free (>=3 yrs.) [[id number]] Influenza, seasonal, injectable, preservative free Adacel (Tetanus, reduced Diphtheria, and acellular Pertussis Immunization) Adacel [[id number]] tetanus toxoid, reduced diphtheria toxoid, and acellular [...] Negative Encounters Code Encounter Date Provider Facility CPT-18701 Level 3 Est. Patient 16:53:35 CDT Иван Mooney MD [facility] CPT-94023 Level 3 Est. Patient 15:57:13 CDT Martha Montejo RADHA [facility] CPT-41309 Level 3 Est. Patient 14:30:47 POLICE PATROL OFFICER Hector Love MD [facility] CPT-53531 Level 3 Est. Patient 14:50:45 CDT Hector Love MD [facility] CPT-27011 Level 3 Est. Patient 21:17:30 CDT Jen Crystal MD [facility] CPT-51284 Level 3 Est. Patient 09:32:55 CDT Hector Love MD [facility] CPT-34314 Level 3 Est. Patient 15:11:08 POLICE PATROL OFFICER Иван Mooney MD [facility] CPT-65855 Level 3 Est. Patient 16:38:53 POLICE PATROL OFFICER Hector Love MD [facility] CPT-49211 Level 3 Est. Patient 15:46:05 CDT Hector Love MD [facility] CPT-65432 Level 3 Est. Patient 13:59:39 CDT Hector Love MD [facility] CPT-07116 Level 3 Est. Patient 14:44:46 POLICE PATROL OFFICER Hector Love MD [facility] CPT-76052 Level 3 Est. Patient 17:12:27 CDT Hector Love MD [facility] CPT-92166 Level 3 Est. Patient 15:30:32 CDT Hector Love MD [facility] CPT-14340 Level 3 Est. Patient 14:24:52 CDT Иван Mooney MD [facility] CPT-59805 Level 3 Est. Patient 14:08:38 POLICE PATROL OFFICER Hector Love MD [facility] Procedures Code Procedure Name Date Entry Date Standard Description CPT-77515 Immunization Single Admin 16:11:28 POLICE PATROL OFFICER CPT-60432 Fluzone Quadrivalent Intramuscular Suspension 0.5 ML 16: 11:28 POLICE PATROL OFFICER CPT-71792 Administration single or combination vaccine inc oral 13 :57:23 CDT CPT-89723 Menactra Intramuscular Injectable 13:57:23 CDT CPT-13061 First Vx Component - Ix admin via ID IM or jet inj without physician counseling 16:42:17 POLICE PATROL OFFICER CPT-22848 Fluzone preservative free (>=3 yrs.) 16:42:17 POLICE PATROL OFFICER 06/03 CPT-12299 Venipuncture Draw Fee 16:29:01 CDT CPT-65057 Chest 2V Frontal and Lat 16:23:56 CDT CPT-95079 Administration single or combination vaccine inc oral 13 :39:17 POLICE PATROL OFFICER CPT-53244 Tdap 13:39:17 POLICE PATROL OFFICER
--- OUTSIDE RECORDS SUMMARY | 2017-11-06 01:57 | XMS REPORT | Clinical Summary ---
Author Author Admin, LAMBERT Organization [facility] Address Unknown Phone Unavailable Allergies, Adverse Reactions, [...] care facility Fatigue 780.79 Active Manish Castrejon [facility] Other malaise and fatigue Body Mass Index 34.0-34.9 Adult Active Manish Castrejon [facility] Body Mass Index 34.0-34.9, adult HYPERTENSION ICD-401.9 [...] Gastroenteritis, viral, acute ICD-008.8 Inactive Martha Montejo [facility] Bronchitis ICD-490 Inactive Hector Love MD 2014 [...] MG ORAL CAPSULE 2 po BID TACROLIMUS 21193896638 Active Hector Love MD Active CETIRIZINE HCL 10 MG ORAL TABLET 1 po qd PRN Allergies CETIRIZINE HCL 71949391718 Active Hector Love MD Active LISINOPRIL 5 MG ORAL TABLET 1.5 po qd LISINOPRIL 04418633319 Active Hector Love MD Active FLUTICASONE PROPIONATE 50 MCG/ACT NASAL SUSPENSION 2 sprays/nostril qd PRN Congestion/Allergies FLUTICASONE PROPIONATE 03219001804 Active Hector Love MD Active VITAMIN C 500 MG ORAL TABLET CHEWABLE ASCORBIC ACID 65955273301 No Longer Active Hector Love MD Active PREDNISONE 20 MG ORAL TABLET 1 tablet daily x 2 days PREDNISONE 73967314071 No Longer Active Manish Castrejon APRN Active AMOXICILLIN 500 MG ORAL TABLET Take two tablets by mouth every 12 hours for 10 days AMOXICILLIN 12847130038 No Longer Active Иван Mooney MD Active PREDNISONE 20 MG ORAL TABLET 2 po qd x 4 days PREDNISONE 52717643418 No Longer Active Hector Love MD Active HYDROCODONE-ACETAMINOPHEN 5-325 MG ORAL TABLET 1/2 to 1 po q 4 hours prn pain HYDROCODONE-ACETAMINOPHEN 34222820711 No Longer Active Hector Love MD Active AUGMENTIN 875-125 MG ORAL TABLET 1 po BID x 10 days AMOXICILLIN-POT CLAVULANATE 09149875932 No Longer Active Hector Love MD Active FLONASE ALLERGY RELIEF 50 MCG/ACT NASAL SUSPENSION 2 sprays each nostril daily PRN allergies FLUTICASONE PROPIONATE 48689060227 No Longer Active Hector Love MD Active AMOXICILLIN 500 MG ORAL CAPSULE 1 cap by mouth three times a day AMOXICILLIN 33052701769 No Longer Active Manish Castrejon APRN Active KEFLEX 500 MG ORAL CAPSULE 1 tab po tid CEPHALEXIN 56256409772 No Longer Active Jillina Fradebora GARCIA Active AMOXICILLIN 500 MG ORAL TABLET 2 tabs twice a day for 10 days AMOXICILLIN 04082755308 No Longer Active Elijahlldenise Fradebora GARCIA Active ZOFRAN 4 MG ORAL TABLET 1 po q6hr PRN Nausea ONDANSETRON HCL 76636545172 No Longer Active Ramona Diggs LPN Active AMOXICILLIN 500 MG ORAL CAPSULE 2 po BID x 10 days AMOXICILLIN 68283086615 No Longer Active Martha Montejo APRN Active AUGMENTIN 875-125 MG ORAL TABLET 1 tab by mouth twice daily with food AMOXICILLIN-POT CLAVULANATE 04419804279 No Longer Active Hector Love MD Active LEVAQUIN 500 MG ORAL TABLET 1 pill by mouth daily LEVOFLOXACIN 29679017069 No Longer Active Jen Crystal MD PhD Active KETOCONAZOLE 2 % EXTERNAL CREAM apply twice a day to rash KETOCONAZOLE 14841500587 No Longer Active Hector Love MD Active AUGMENTIN 875-125 MG ORAL TABLET 1 tab by mouth twice daily with food AMOXICILLIN-POT CLAVULANATE 76852302005 No Longer Active Иван Mooney MD Active LOTRISONE 1-0.05 % EXTERNAL CREAM Apply twice a day to affected area CLOTRIMAZOLE-BETAMETHASONE 60544181112 No Longer Active Иван Mooney MD Active FEXOFENADINE HCL 180 MG ORAL TABLET 1 Daily FEXOFENADINE HCL 28372874507 No Longer Active Hector Love MD Active PROGRAF 0.5 MG ORAL CAPSULE Take one by mouth daily with 1 mg TACROLIMUS 10174966370 No Longer Active Hector Love MD Active AMOXICILLIN 500 MG ORAL CAPSULE 2 po BID x 10 days AMOXICILLIN 76868658818 No Longer Active Hector Love MD Active RAPAMUNE 1 MG ORAL TABLET 3 tabs in the am SIROLIMUS 06237007897 No Longer Active Hector Love MD Active AMOXICILLIN 500 MG ORAL CAPSULE 2 po BID x 10 days AMOXICILLIN 25539064522 No Longer Active Hector Love MD Active LORTAB 5-500 MG ORAL TABLET 1/2 to 1 tablet by mouth every 4 hours as needed for pain HYDROCODONE-ACETAMINOPHEN 33963394518 No Longer Active Hector Love MD Active FLUTICASONE PROPIONATE 50 MCG/ACT NASAL SUSPENSION INSTILL 2 SPRAYS IN EACH NOSTRIL Q D FLUTICASONE PROPIONATE 70394863369 No Longer Active Hector Love MD Active PROGRAF 1 MG ORAL CAPSULE 1 po bid TACROLIMUS 59043008457 No Longer Active Hector Love MD Active AMOXICILLIN 875 MG ORAL TABLET 1 tab by mouth twice daily AMOXICILLIN 25975623843 No Longer Active Hector Love MD Active AMOXICILLIN 500 MG ORAL CAPSULE 2 po BID x 10 days AMOXICILLIN 59881553919 No Longer Active Hector Love MD Active AUGMENTIN 875-125 MG ORAL TABLET 1 tab by mouth twice daily with food AMOXICILLIN-POT CLAVULANATE 68032912983 No Longer Active Hector Love MD Active AZITHROMYCIN 250 MG ORAL TABLET 2 po qd x 1 day, then 1 po qd x 4 days 06/19 AZITHROMYCIN 88195191116 No Longer Active Hector Love MD Active CETIRIZINE HCL 10 MG ORAL TABLET 1 PO Q D CETIRIZINE HCL 41379734614 No Longer Active Waleska Ukiah Active PROGRAF 1 MG ORAL CAPSULE 1 po bid PROGRAF 1 MG ORAL CAPSULE 870298 TACROLIMUS Inactive FLUTICASONE PROPIONATE 50 MCG/ACT NASAL SUSPENSION INSTILL 2 SPRAYS IN EACH NOSTRIL Q D FLUTICASONE PROPIONATE 50 MCG/ACT NASAL SUSPENSION 2845078 FLUTICASONE PROPIONATE Inactive LORTAB 5-500 MG ORAL TABLET 1/2 to 1 tablet by mouth every 4 hours as needed for pain LORTAB 5-500 MG ORAL TABLET HYDROCODONE- ACETAMINOPHEN Inactive RAPAMUNE 1 MG ORAL TABLET 3 tabs in the am RAPAMUNE 1 MG ORAL TABLET 517863 SIROLIMUS Inactive PROGRAF 0.5 MG ORAL CAPSULE Take one by mouth daily with 1 mg PROGRAF 0.5 MG ORAL CAPSULE 969049 TACROLIMUS Inactive FEXOFENADINE HCL 180 MG ORAL TABLET 1 Daily FEXOFENADINE HCL 180 MG ORAL TABLET 960081 FEXOFENADINE HCL Inactive LOTRISONE 1-0.05 % EXTERNAL CREAM Apply twice a day to affected area LOTRISONE 1-0.05 % EXTERNAL CREAM 376721 CLOTRIMAZOLE- BETAMETHASONE Inactive KETOCONAZOLE 2 % EXTERNAL CREAM apply twice a day to rash KETOCONAZOLE 2 % EXTERNAL CREAM 612729 KETOCONAZOLE Inactive AUGMENTIN 875-125 MG ORAL TABLET 1 tab by mouth twice daily with food AUGMENTIN 875-125 MG ORAL TABLET 838543 AMOXICILLIN-POT CLAVULANATE Inactive ZOFRAN 4 MG ORAL TABLET 1 po q6hr PRN Nausea ZOFRAN 4 MG ORAL TABLET 555223 ONDANSETRON HCL Inactive AMOXICILLIN 500 MG ORAL TABLET 2 tabs twice a day for 10 days AMOXICILLIN 500 MG ORAL TABLET 583777 AMOXICILLIN Inactive FLONASE ALLERGY RELIEF 50 MCG/ACT NASAL SUSPENSION 2 sprays each nostril daily PRN allergies FLONASE ALLERGY RELIEF 50 MCG/ACT NASAL SUSPENSION 7246741 FLUTICASONE PROPIONATE Inactive HYDROCODONE-ACETAMINOPHEN 5-325 MG ORAL TABLET 1/2 to 1 po q 4 hours prn pain HYDROCODONE-ACETAMINOPHEN 5-325 MG ORAL TABLET 731717 HYDROCODONE-ACETAMINOPHEN Inactive PREDNISONE 20 MG ORAL TABLET 1 tablet daily x 2 days PREDNISONE 20 MG ORAL TABLET 638246 PREDNISONE Inactive VITAMIN C 500 MG ORAL TABLET CHEWABLE VITAMIN C 500 MG ORAL TABLET CHEWABLE ASCORBIC ACID Inactive AMOXICILLIN 500 MG ORAL CAPSULE 2 po BID x 10 days AMOXICILLIN 500 MG ORAL CAPSULE 593128 AMOXICILLIN Inactive AMOXICILLIN 875 MG ORAL TABLET 1 tab by mouth twice daily AMOXICILLIN 875 MG ORAL TABLET 800835 AMOXICILLIN Inactive AMOXICILLIN 500 MG ORAL CAPSULE 2 po BID x 10 days AMOXICILLIN 500 MG ORAL CAPSULE 859282 AMOXICILLIN Inactive AMOXICILLIN 500 MG ORAL CAPSULE 2 po BID x 10 days AMOXICILLIN 500 MG ORAL CAPSULE 251218 AMOXICILLIN Inactive AUGMENTIN 875-125 MG ORAL TABLET 1 tab by mouth twice daily with food AUGMENTIN 875-125 MG ORAL TABLET 250639 AMOXICILLIN-POT CLAVULANATE Inactive LEVAQUIN 500 MG ORAL TABLET 1 pill by mouth daily LEVAQUIN 500 MG ORAL TABLET 497396 LEVOFLOXACIN Inactive AMOXICILLIN 500 MG ORAL CAPSULE 2 po BID x 10 days AMOXICILLIN 500 MG ORAL CAPSULE 525728 AMOXICILLIN Inactive AMOXICILLIN 500 MG ORAL CAPSULE 1 cap by mouth three times a day AMOXICILLIN 500 MG ORAL CAPSULE 077788 AMOXICILLIN Inactive AUGMENTIN 875-125 MG ORAL TABLET 1 po BID x 10 days AUGMENTIN 875-125 MG ORAL TABLET 502285 AMOXICILLIN-POT CLAVULANATE Inactive PREDNISONE 20 MG ORAL TABLET 2 po qd x 4 days PREDNISONE 20 MG ORAL TABLET 047657 PREDNISONE Inactive AMOXICILLIN 500 MG ORAL TABLET Take two tablets by mouth every 12 hours for 10 days AMOXICILLIN 500 MG ORAL TABLET 042353 AMOXICILLIN Inactive Advance Directives Directive Description Start Date PERMISSION TO SHARE Immunizations Vaccine Administration Date Value Standard Description Seasonal influenza vaccine, injectable, preservative free, for > 3 years old ( Afluria, FluLaval, Fluzone, Fluvirin, Fluarix, Agriflu(>=18 yo)) Fluzone preservative free (>=3 yrs.) [[id number]] Influenza, seasonal, injectable, preservative free Adacel (Tetanus, reduced Diphtheria, and acellular Pertussis Immunization) Adacel [[id number]] tetanus toxoid, reduced diphtheria toxoid, and acellular [...] Panel - Chemistry sodium, serum 137 mmol/L 361-615 0256/08/14 carbon dioxide, venous blood 29.7 mmol/L 21.0-32.0 potassium, serum 4.3 mmol/L 3.5-5.2 chloride, serum 99 mmol/L 98-107 blood glucose 123 mg/dL 65-110 urea nitrogen, blood 12 mg/dL 7-18 creatinine, serum 0.84 mg/dL 0.60-1.30 alanine aminotransferase (SGPT), serum 48 U/L 12-78 aspartate aminotransferase (SGOT), serum 26 U/L 15-37 calcium, serum 9.4 mg/dL 8.5-10.1 bilirubin, serum, total 1.60 mg/dL 0.00-1.00 cholesterol, serum 141 mg/dL 096-258 5312/08/14 triglyceride, serum, fasting 54 mg/dL 30-200 HDL [...] ... - Chemistry sodium, serum 137 mmol/L 189-781 7060/04/23 carbon dioxide, venous blood 28.4 mmol/L 21.0-32.0 [...] semiquantitative 6.0 5.0-8.5 Lab Report: VITAMIN D, 25-HYDROXY/81615 - Chemistry vitamin D 25-hydroxy, serum 18 ng/mL 30-100 Encounters Code Encounter Date Provider Facility CPT-76309 Level 3 Est. Patient 10:49:01 CDT Manish Castrejon [facility] CPT-37557 Level 3 Est. Patient 11:35:07 CDT Manish Moodydebora [facility] CPT-17124 Level 3 Est. Patient 17:22:36 CDT Tracy Resendiz Shante [facility] CPT-63097 Level 3 Est. Patient 16:06:03 CDT Elijahzeyad Moodydebora [facility] CPT-24632 Level 3 Est. Patient 09:57:24 CDT Elijahzeyad Moodydebora [facility] CPT-90608 Level 3 Est. Patient 16:31:04 CDT Иван Mooney MD [facility] CPT-01120 Level 4 Est. Patient 12:02:18 CDT Hcetor Love MD [facility] CPT-83078 Level 3 Est. Patient 16:14:45 CDT Hector Love MD [facility] CPT-16467 Level 3 Est. Patient 16:53:35 CDT Иван Mooney MD [facility] CPT-30124 Level 3 Est. Patient 15:57:13 CDT Martha Nikia [facility] CPT-47006 Level 3 Est. Patient 14:30:47 ESTIMATOR AND DRAFTER Hector Love MD [facility] CPT-34367 Level 3 Est. Patient 14:50:45 CDT Hector Love MD [facility] CPT-80576 Level 3 Est. Patient 21:17:30 CDT Jen Crystal MD PhD [facility] CPT-20207 Level 3 Est. Patient 09:32:55 CDT Hector Love MD [facility] CPT-69176 Level 3 Est. Patient 15:11:08 ESTIMATOR AND DRAFTER Иван Mooney MD [facility] CPT-76707 Level 3 Est. Patient 16:38:53 ESTIMATOR AND DRAFTER Hector Love MD [facility] CPT-15368 Level 3 Est. Patient 15:46:05 CDT Hector Love MD [facility] CPT-25902 Level 3 Est. Patient 13:59:39 CDT Hector Love MD [facility] CPT-22710 Level 3 Est. Patient 14:44:46 ESTIMATOR AND DRAFTER Hector Love MD [facility] CPT-24906 Level 3 Est. Patient 17:12:27 CDT Hector Love MD [facility] CPT-02592 Level 3 Est. Patient 15:30:32 CDT Hector Love MD [facility] CPT-85823 Level 3 Est. Patient 14:24:52 CDT Иван Mooney MD [facility] CPT-07352 Level 3 Est. Patient 14:08:38 ESTIMATOR AND DRAFTER Hector Love MD [facility] Procedures Code Procedure Name Date Entry Date Standard Description CPT-47114 Chest, 2 views 11:04:30 CDT CPT-30214 Venipuncture Draw Fee 16:18:26 CDT CPT-77082 TB Skin Test 09:57:25 CDT CPT-000 Give Appropriate Flu Vaccine 16:22:23 ESTIMATOR AND DRAFTER CPT-36309 Free T4 - LAB USE ONLY 11:38:58 CDT CPT-64291 TSH - LAB USE ONLY 11:38:58 CDT CPT-58360 Venipuncture Draw Fee 11:38:58 CDT CPT-51626 Fluzone Quadrivalent Intramuscular Suspension 0.5 ML 16: 12:26 ESTIMATOR AND DRAFTER CPT-16706 Immunization Single Admin 16:12:26 ESTIMATOR AND DRAFTER CPT-J0561 Bicillin LA 1,200,000 u (PCN G Benzathine) 16:40:23 CDT CPT-87168 Abx/Therapy Injection 16:40:22 CDT CPT-J0561 Bicillin LA 1,200,000 u (PCN G Benzathine) 16:15:35 CDT CPT-13254 Immunization Single Admin 16:11:28 ESTIMATOR AND DRAFTER CPT-10179 Fluzone Quadrivalent Intramuscular Suspension 0.5 ML 16: 11:28 ESTIMATOR AND DRAFTER CPT-27565 Administration single or combination vaccine inc oral 13 :57:23 CDT CPT-35365 Menactra Intramuscular Injectable 13:57:23 CDT CPT-20008 First Vx Component - Ix admin via ID IM or jet inj without physician counseling 16:42:17 ESTIMATOR AND DRAFTER CPT-24306 Fluzone preservative free (>=3 yrs.) 16:42:17 ESTIMATOR AND DRAFTER 06/03 CPT-84967 Venipuncture Draw Fee 16:29:01 CDT CPT-66001 Chest 2V Frontal and Lat 16:23:56 CDT CPT-70783 Administration single or combination vaccine inc oral 13 :39:17 ESTIMATOR AND DRAFTER CPT-99926 Tdap 13:39:17 ESTIMATOR AND DRAFTER
--- OUTSIDE RECORDS SUMMARY | 2017-11-06 01:58 | XMS REPORT | Clinical Summary ---
Author Author Admin, LAMBERT Organization [facility] Address Unknown Phone Unavailable Allergies, Adverse Reactions, [...] Gastroenteritis, viral, acute 008.8 Resolved Martha Montejo AEROLOGIST Intestinal infection due to other organism, not [...] employment physical examination V70.0 Active Manish Castrejon AEROLOGIST Routine general medical examination at a health care facility Exposure to mononucleosis V01.79 Active Manish Castrejon AEROLOGIST Contact with or exposure to other viral diseases Stress at work V62.1 Active Jillina Frazell AEROLOGIST Adverse effects of work environment BRONCHITIS, ACUTE [...] MD Fever ICD-780.60 Inactive Hector Love MD U R I ICD-465.9 Inactive Hector Love MD Gastroenteritis, viral, acute ICD-008.8 Inactive Martha Montejo AEROLOGIST Bronchitis ICD-490 Inactive Hector Love MD 2014 Pharyngitis ICD-462 Inactive Hector Love MD Ingrown toenail ICD-703.0 Inactive Hector Love MD Ingrown toenail, right ICD-703.0 Inactive Hector Love MD Sinusitis, frontal, acute ICD-461.1 Inactive Hector Love MD NEED FOR PROPHYLACTIC VACCINATION WITH STREPTOCOCCUS PNEUMONIAE (PNEUMOCOCCUS) AND INFLUENZA ICD-V06.6 Inactive Hector Love MD Medication List Medication Instructions Start Date Stop Date Generic Name NDC Status Provider Patient Instruction PREDNISONE 20 MG TAB 1 tablet daily x 2 days PREDNISONE [id number] No Longer Active Jillina Lucía GARCIA Active AMOXICILLIN 500 MG TABS Take two tablets by mouth every 12 hours for 10 days AMOXICILLIN 71292655560 No Longer Active Иван Mooney MD Active VITAMIN C 500 MG CHEW TAB ASCORBIC ACID 55545398230 Active Иван Mooney MD Active PREDNISONE 20 MG TAB 2 po qd x 4 days PREDNISONE 62086928465 No Longer Active Hector Love MD Active HYDROCODONE-ACETAMINOPHEN 5-325 MG TABS 1/2 to 1 po q 4 hours prn pain 11/06 HYDROCODONE-ACETAMINOPHEN 91681223002 No Longer Active Hector Love MD Active FLONASE ALLERGY RELIEF 50 MCG/ACT NASAL SUSP 2 spray each nostril daily prn allergies FLUTICASONE PROPIONATE 22797262703 Active Hector Love MD Active AUGMENTIN 875-125 MG TAB 1 po BID x 10 days AMOXICILLIN-POT CLAVULANATE 06197968666 No Longer Active Hector Love MD Active FLONASE ALLERGY RELIEF 50 MCG/ACT NASAL SUSP 2 sprays each nostril daily PRN allergies FLUTICASONE PROPIONATE 47533705331 No Longer Active Hector Love MD Active AMOXICILLIN 500 MG CAPS 1 cap by mouth three times a day AMOXICILLIN 46185513387 No Longer Active Jillina Lucía GARCIA Active KEFLEX 500 MG CAP 1 tab po tid CEPHALEXIN 03902564857 No Longer Active Jillina Lucaí GARCIA Active AMOXICILLIN 500 MG TABS 2 tabs twice a day for 10 days AMOXICILLIN 75253376694 No Longer Active Jillina Frazell AEROLOGIST Active ZYRTEC ALLERGY 10 MG CAPS 1 po qd CETIRIZINE HCL 50096831228 Active Hector Love MD Active PROGRAF 1 MG CAPS 2 tabs po bid TACROLIMUS 77903658534 Active Hector Love MD Active ZOFRAN 4 MG TABS 1 po q6hr PRN Nausea ONDANSETRON HCL 11826706449 No Longer Active Ramona Diggs OPERATIONS CLERK Active AMOXICILLIN 500 MG CAPS 2 po BID x 10 days AMOXICILLIN 31092679106 No Longer Active Martha Escalantestephen AEROLOGIST Active AUGMENTIN 875-125 MG TAB 1 tab by mouth twice daily with food AMOXICILLIN-POT CLAVULANATE 62474840501 No Longer Active Hector Love MD Active LEVAQUIN 500 MG TABS 1 pill by mouth daily LEVOFLOXACIN 21233011565 No Longer Active Jen Crystal MD PhD Active LISINOPRIL 5 MG TABS 1.5 tab qd LISINOPRIL 10347896120 Active Jen Crystal MD PhD Active KETOCONAZOLE 2 % CREA apply twice a day to rash KETOCONAZOLE 38959434395 No Longer Active Hector Love MD Active AUGMENTIN 875-125 MG TAB 1 tab by mouth twice daily with food AMOXICILLIN-POT CLAVULANATE 97537545588 No Longer Active Иван Mooney MD Active LOTRISONE 0.05-1 % CREAM Apply twice a day to affected area 07/19 CLOTRIMAZOLE-BETAMETHASONE 13552249858 No Longer Active Иван Mooney MD Active FEXOFENADINE HCL 180 MG TABS 1 Daily FEXOFENADINE HCL 01277483867 No Longer Active Hector Love MD Active PROGRAF 0.5 MG CAPS Take one by mouth daily with 1 mg TACROLIMUS 33630535370 No Longer Active Hector Love MD Active AMOXICILLIN 500 MG CAPS 2 po BID x 10 days AMOXICILLIN 03270300638 No Longer Active Hector Love MD Active RAPAMUNE 1 MG TABS 3 tabs in the am SIROLIMUS 94764955365 No Longer Active Hector Love MD Active AMOXICILLIN 500 MG CAPS 2 po BID x 10 days AMOXICILLIN 30049440893 No Longer Active Hector Love MD Active LORTAB 5 5-500 MG TABS 1/2 to 1 tablet by mouth every 4 hours as needed for pain HYDROCODONE-ACETAMINOPHEN 02110822483 No Longer Active Hector Love MD Active FLUTICASONE PROPIONATE 50 MCG/ACT SUSP INSTILL 2 SPRAYS IN EACH NOSTRIL Q D FLUTICASONE PROPIONATE 88634349128 No Longer Active Hector Love MD Active PROGRAF 1 MG CAPS 1 po bid TACROLIMUS 81812474279 No Longer Active Hector Love MD Active AMOXICILLIN 875 MG TABS 1 tab by mouth twice daily AMOXICILLIN 96792310890 No Longer Active Hector Love MD Active AMOXICILLIN 500 MG CAPS 2 po BID x 10 days AMOXICILLIN 64711775056 No Longer Active Hector Love MD Active AUGMENTIN 875-125 MG TAB 1 tab by mouth twice daily with food AMOXICILLIN-POT CLAVULANATE 68440647309 No Longer Active Hector Love MD Active AZITHROMYCIN 250 MG TABS 2 po qd x 1 day, then 1 po qd x 4 days AZITHROMYCIN 52872552589 No Longer Active Hector Love MD Active CETIRIZINE HCL 10 MG TABS 1 PO Q D CETIRIZINE HCL 42646929386 No Longer Active Waleska Fromberg Active PROGRAF 1 MG CAPS 1 po bid PROGRAF 1 MG CAPS 019140 TACROLIMUS Inactive FLUTICASONE PROPIONATE 50 MCG/ACT SUSP INSTILL 2 SPRAYS IN EACH NOSTRIL Q D FLUTICASONE PROPIONATE 50 MCG/ACT SUSP 4768324 FLUTICASONE PROPIONATE Inactive LORTAB 5 5-500 MG TABS 1/2 to 1 tablet by mouth every 4 hours as needed for pain LORTAB 5 5-500 MG TABS HYDROCODONE- ACETAMINOPHEN Inactive RAPAMUNE 1 MG TABS 3 tabs in the am RAPAMUNE 1 MG TABS 409098 SIROLIMUS Inactive PROGRAF 0.5 MG CAPS Take one by mouth daily with 1 mg PROGRAF 0.5 MG CAPS 618673 TACROLIMUS Inactive FEXOFENADINE HCL 180 MG TABS 1 Daily FEXOFENADINE HCL 180 MG TABS 819231 FEXOFENADINE HCL Inactive LOTRISONE 0.05-1 % CREAM Apply twice a day to affected area 07/19 LOTRISONE 0.05-1 % CREAM 488692 CLOTRIMAZOLE-BETAMETHASONE Inactive KETOCONAZOLE 2 % CREA apply twice a day to rash KETOCONAZOLE 2 % CREA 537982 KETOCONAZOLE Inactive AUGMENTIN 875-125 MG TAB 1 tab by mouth twice daily with food AUGMENTIN 875-125 MG TAB 075967 AMOXICILLIN-POT CLAVULANATE Inactive ZOFRAN 4 MG TABS 1 po q6hr PRN Nausea ZOFRAN 4 MG TABS 784836 ONDANSETRON HCL Inactive AMOXICILLIN 500 MG TABS 2 tabs twice a day for 10 days AMOXICILLIN 500 MG TABS 614307 AMOXICILLIN Inactive FLONASE ALLERGY RELIEF 50 MCG/ACT NASAL SUSP 2 sprays each nostril daily PRN allergies FLONASE ALLERGY RELIEF 50 MCG/ACT NASAL SUSP 3218225 FLUTICASONE PROPIONATE Inactive HYDROCODONE-ACETAMINOPHEN 5-325 MG TABS 1/2 to 1 po q 4 hours prn pain 11/06 HYDROCODONE-ACETAMINOPHEN 5-325 MG TABS 087205 HYDROCODONE- ACETAMINOPHEN Inactive PREDNISONE 20 MG TAB 1 tablet daily x 2 days PREDNISONE 20 MG TAB 736997 PREDNISONE Inactive AMOXICILLIN 500 MG CAPS 2 po BID x 10 days AMOXICILLIN 500 MG CAPS 200377 AMOXICILLIN Inactive AMOXICILLIN 875 MG TABS 1 tab by mouth twice daily AMOXICILLIN 875 MG TABS 682177 AMOXICILLIN Inactive AMOXICILLIN 500 MG CAPS 2 po BID x 10 days AMOXICILLIN 500 MG CAPS 297850 AMOXICILLIN Inactive AMOXICILLIN 500 MG CAPS 2 po BID x 10 days AMOXICILLIN 500 MG CAPS 312083 AMOXICILLIN Inactive AUGMENTIN 875-125 MG TAB 1 tab by mouth twice daily with food AUGMENTIN 875-125 MG TAB 917078 AMOXICILLIN-POT CLAVULANATE Inactive LEVAQUIN 500 MG TABS 1 pill by mouth daily LEVAQUIN 500 MG TABS 346106 LEVOFLOXACIN Inactive AMOXICILLIN 500 MG CAPS 2 po BID x 10 days AMOXICILLIN 500 MG CAPS 523335 AMOXICILLIN Inactive AMOXICILLIN 500 MG CAPS 1 cap by mouth three times a day AMOXICILLIN 500 MG CAPS 296115 AMOXICILLIN Inactive AUGMENTIN 875-125 MG TAB 1 po BID x 10 days AUGMENTIN 875-125 MG TAB 309907 AMOXICILLIN-POT CLAVULANATE Inactive PREDNISONE 20 MG TAB 2 po qd x 4 days PREDNISONE 20 MG TAB 141543 PREDNISONE Inactive AMOXICILLIN 500 MG TABS Take two tablets by mouth every 12 hours for 10 days AMOXICILLIN 500 MG TABS 423737 AMOXICILLIN Inactive Advance Directives Directive Description Start Date PERMISSION TO SHARE Immunizations Vaccine Administration Date Value Standard Description Seasonal influenza vaccine, injectable, preservative free, for > 3 years old ( Afluria, FluLaval, Fluzone, Fluvirin, Fluarix, Agriflu(>=18 yo)) Fluzone preservative free (>=3 yrs.) [[id number]] Influenza, seasonal, injectable, preservative free Adacel (Tetanus, reduced Diphtheria, and acellular Pertussis Immunization) Adacel [UAY556] tetanus toxoid, reduced diphtheria toxoid, and acellular [...] Panel - Chemistry sodium, serum 137 mmol/L 871-305 9733/08/14 carbon dioxide, venous blood 29.7 mmol/L 21.0-32.0 potassium, serum 4.3 mmol/L 3.5-5.2 chloride, serum 99 mmol/L 98-107 blood glucose 123 mg/dL 65-110 urea nitrogen, blood 12 mg/dL 7-18 creatinine, serum 0.84 mg/dL 0.60-1.30 alanine aminotransferase (SGPT), serum 48 U/L 12-78 aspartate aminotransferase (SGOT), serum 26 U/L 15-37 calcium, serum 9.4 mg/dL 8.5-10.1 bilirubin, serum, total 1.60 mg/dL 0.00-1.00 cholesterol, serum 141 mg/dL 176-029 3537/08/14 triglyceride, serum, fasting 54 mg/dL 30-200 HDL [...] semiquantitative 6.0 5.0-8.5 Lab Report: VITAMIN D, 25-HYDROXY/76243 - Chemistry vitamin D 25-hydroxy, serum 18 ng/mL 30-100 Encounters Code Encounter Date Provider Facility CPT-18597 Level 3 Est. Patient 11:35:07 CDT Manish Castrejon [facility]-19954 Level 3 Est. [facility]22[facility] Patient 16:06:03 CDT Manish Castrejon [facility] CPT-33532 Level 3 Est. Patient 09:57:24 CDT Manish Castrejon [facility] CPT-09105 Level 3 Est. Patient 16:31:04 CDT Иван Mooney MD [facility] CPT-84803 Level 4 Est. Patient 12:02:18 CDT Hector Love MD [facility] CPT-55210 Level 3 Est. Patient 16:14:45 CDT Hector Love MD [facility] CPT-57646 Level 3 Est. Patient 16:53:35 CDT Иван Mooney MD [facility] CPT-09921 Level 3 Est. Patient 15:57:13 CDT Martha Montejo [facility] CPT-48797 Level 3 Est. Patient 14:30:47 WIREWORKER Hector Love MD [facility] CPT-00318 Level 3 Est. Patient 14:50:45 CDT Hector Love MD [facility] CPT-70456 Level 3 Est. Patient 21:17:30 CDT Jen Crystal MD PhD [facility] CPT-18402 Level 3 Est. Patient 09:32:55 CDT Hector Love MD [facility] CPT-88628 Level 3 Est. Patient 15:11:08 WIREWORKER Иван Mooney MD [facility] CPT-15259 Level 3 Est. Patient 16:38:53 WIREWORKER Hector Love MD [facility] CPT-01169 Level 3 Est. Patient 15:46:05 CDT Hector Love MD [facility] CPT-37666 Level 3 Est. Patient 13:59:39 CDT Hector Love MD [facility] CPT-81168 Level 3 Est. Patient 14:44:46 WIREWORKER Hector Love MD [facility] CPT-50590 Level 3 Est. Patient 17:12:27 CDT Hector Love MD [facility] CPT-88358 Level 3 Est. Patient 15:30:32 CDT Hector Love MD [facility] CPT-43137 Level 3 Est. Patient 14:24:52 CDT Иван Mooney MD [facility] CPT-34907 Level 3 Est. Patient 14:08:38 WIREWORKER Hector Love MD [facility] Procedures Code Procedure Name Date Entry Date Standard Description CPT-13263 Venipuncture Draw Fee 16:18:26 CDT CPT-94236 TB Skin Test 09:57:25 CDT CPT-000 Give Appropriate Flu Vaccine 16:22:23 WIREWORKER CPT-91171 Free T4 - LAB USE ONLY 11:38:58 CDT CPT-25607 TSH - LAB USE ONLY 11:38:58 CDT CPT-81437 Venipuncture Draw Fee 11:38:58 CDT CPT-56125 Fluzone Quadrivalent Intramuscular Suspension 0.5 ML 16: 12:26 WIREWORKER CPT-84829 Immunization Single Admin 16:12:26 WIREWORKER CPT-J0561 Bicillin LA 1,200,000 u (PCN G Benzathine) 16:40:23 CDT CPT-00735 Abx/Therapy Injection 16:40:22 CDT CPT-J0561 Bicillin LA 1,200,000 u (PCN G Benzathine) 16:15:35 CDT CPT-44507 Immunization Single Admin 16:11:28 WIREWORKER CPT-46482 Fluzone Quadrivalent Intramuscular Suspension 0.5 ML 16: 11:28 WIREWORKER CPT-26139 Administration single or combination vaccine inc oral 13 :57:23 CDT CPT-88511 Menactra Intramuscular Injectable 13:57:23 CDT CPT-52208 First Vx Component - Ix admin via ID IM or jet inj without physician counseling 16:42:17 WIREWORKER CPT-09093 Fluzone preservative free (>=3 yrs.) 16:42:17 WIREWORKER 06/03 CPT-51650 Venipuncture Draw Fee 16:29:01 CDT CPT-64738 Chest 2V Frontal and Lat 16:23:56 CDT CPT-45704 Administration single or combination vaccine inc oral 13 :39:17 WIREWORKER CPT-11527 Tdap 13:39:17 WIREWORKER
--- OUTSIDE RECORDS SUMMARY | 2017-11-06 01:59 | XMS REPORT | Clinical Summary ---
Author Author Admin, QIE Organization [email or web address] Address Unknown Phone Unavailable Allergies, Adverse Reactions, [...] Gastroenteritis, viral, acute 008.8 Resolved Martha Montejo [employer]ESS [employer]PER[employer] Intestinal infection due to other organism, not elsewhere classified Bronchitis 490 Resolved Hector Loev MD Bronchitis, not specified as acute or [...] employment physical examination V70.0 Active Manish Castrejon [employer] Routine general medical examination at a health care facility Exposure to mononucleosis V01.79 Active Manish Castrejon [employer] REPROCESS OPERATOR HEAD Contact with or exposure to other viral [...] PNEUMONIAE (PNEUMOCOCCUS) AND INFLUENZA ICD-V06.6 Inactive Hector oLve MD Gastroenteritis, viral, acute ICD-008.8 Inactive Martha Montejo [employer] REPROCESS OPERATOR HEAD Bronchitis ICD-490 Inactive Hector Love MD 2014 Pharyngitis ICD-462 Inactive Hector Love MD Ingrown toenail ICD-703.0 Inactive Hector Love MD Ingrown toenail, right ICD-703.0 Inactive Hector Love MD Medication List Medication Instructions Start Date Stop Date Generic Name NDC Status Provider Patient Instruction AMOXICILLIN 500 MG TABS Take two tablets by mouth every 12 hours for 10 days AMOXICILLIN 93794366474 No Longer Active Иван Mooney MD Active VITAMIN C 500 MG CHEW TAB ASCORBIC ACID 12846523998 Active Иван Mooney MD Active PREDNISONE 20 MG TAB 2 po qd x 4 days PREDNISONE 77544698465 No Longer Active Hector Love MD Active HYDROCODONE-ACETAMINOPHEN 5-325 MG TABS 1/2 to 1 po q 4 hours prn pain 11/06 HYDROCODONE-ACETAMINOPHEN 70902330986 No Longer Active Hector Love MD Active FLONASE ALLERGY RELIEF 50 MCG/ACT NASAL SUSP 2 spray each nostril daily prn allergies FLUTICASONE PROPIONATE 54824434193 Active Hector Love MD Active AUGMENTIN 875-125 MG TAB 1 po BID x 10 days AMOXICILLIN-POT CLAVULANATE 76032187391 No Longer Active Hector Love MD Active FLONASE ALLERGY RELIEF 50 MCG/ACT NASAL SUSP 2 sprays each nostril daily PRN allergies FLUTICASONE PROPIONATE 49379919815 No Longer Active Hector Love MD Active AMOXICILLIN 500 MG CAPS 1 cap by mouth three times a day AMOXICILLIN 35382516738 No Longer Active Jillina Frazell [employer] REPROCESS O[employer]ATOR [employer] Active KEFLEX 500 MG CAP 1 tab po tid CEPHALEXIN 23480557908 No Longer Active Jillina Frazell [employer]AR REPROCESS OPERATOR [employer] Active AMOXICILLIN 500 MG TABS 2 tabs twice a day for 10 days AMOXICILLIN 01322893367 No Longer Active Jillina Frazell [employer]GAR REPROCESS OPERATOR [employer] Active ZYRTEC ALLERGY 10 MG CAPS 1 po qd CETIRIZINE HCL 20202618936 Active Hector Love MD Active PROGRAF 1 MG CAPS 2 tabs po bid TACROLIMUS 22555684814 Active Hector Love MD Active ZOFRAN 4 MG TABS 1 po q6hr PRN Nausea ONDANSETRON HCL 04453010357 No Longer Active Ramona Diggs LPN Active AMOXICILLIN 500 MG CAPS 2 po BID x 10 days AMOXICILLIN 58291560433 No Longer Active Martha Montejo [employer]AR REPROCESS O[employer]ATOR [employer] Active AUGMENTIN 875-125 MG TAB 1 tab by mouth twice daily with food AMOXICILLIN-POT CLAVULANATE 66439820380 No Longer Active Hector Love MD Active LEVAQUIN 500 MG TABS 1 pill by mouth daily LEVOFLOXACIN 58936615739 No Longer Active Jen Crystal MD PhD Active LISINOPRIL 5 MG TABS 1.5 tab qd LISINOPRIL 53277095913 Active Jen Crystal MD PhD Active KETOCONAZOLE 2 % CREA apply twice a day to rash KETOCONAZOLE 12874690435 No Longer Active Hector Love MD Active AUGMENTIN 875-125 MG TAB 1 tab by mouth twice daily with food AMOXICILLIN-POT CLAVULANATE 44546770717 No Longer Active Иван Mooney MD Active LOTRISONE 0.05-1 % CREAM Apply twice a day to affected area 07/19 CLOTRIMAZOLE-BETAMETHASONE 08579683433 No Longer Active Иван Mooney MD Active FEXOFENADINE HCL 180 MG TABS 1 Daily FEXOFENADINE HCL 61295222550 No Longer Active Hector Love MD Active PROGRAF 0.5 MG CAPS Take one by mouth daily with 1 mg TACROLIMUS 91454937110 No Longer Active Hector Love MD Active AMOXICILLIN 500 MG CAPS 2 po BID x 10 days AMOXICILLIN 18766172380 No Longer Active Hector Love MD Active RAPAMUNE 1 MG TABS 3 tabs in the am SIROLIMUS 78627451523 No Longer Active Hector Love MD Active AMOXICILLIN 500 MG CAPS 2 po BID x 10 days AMOXICILLIN 53953009367 No Longer Active Hector Love MD Active LORTAB 5 5-500 MG TABS 1/2 to 1 tablet by mouth every 4 hours as needed for pain HYDROCODONE-ACETAMINOPHEN 24661888319 No Longer Active Hector Love MD Active FLUTICASONE PROPIONATE 50 MCG/ACT SUSP INSTILL 2 SPRAYS IN EACH NOSTRIL Q D FLUTICASONE PROPIONATE 59631488663 No Longer Active Hector Love MD Active PROGRAF 1 MG CAPS 1 po bid TACROLIMUS 02856568151 No Longer Active Hector Love MD Active AMOXICILLIN 875 MG TABS 1 tab by mouth twice daily AMOXICILLIN 22941666599 No Longer Active Hector Love MD Active AMOXICILLIN 500 MG CAPS 2 po BID x 10 days AMOXICILLIN 18447531317 No Longer Active Hector Love MD Active AUGMENTIN 875-125 MG TAB 1 tab by mouth twice daily with food AMOXICILLIN-POT CLAVULANATE 78289348792 No Longer Active Hector Love MD Active AZITHROMYCIN 250 MG TABS 2 po qd x 1 day, then 1 po qd x 4 days AZITHROMYCIN 75479635728 No Longer Active Hector Love MD Active CETIRIZINE HCL 10 MG TABS 1 PO Q D CETIRIZINE HCL 14175983712 No Longer Active Waleska [place] Active PROGRAF 1 MG CAPS 1 po bid PROGRAF 1 MG CAPS 180405 TACROLIMUS Inactive FLUTICASONE PROPIONATE 50 MCG/ACT SUSP INSTILL 2 SPRAYS IN EACH NOSTRIL Q D FLUTICASONE PROPIONATE 50 MCG/ACT SUSP 4391479 FLUTICASONE PROPIONATE Inactive LORTAB 5 5-500 MG TABS 1/2 to 1 tablet by mouth every 4 hours as needed for pain LORTAB 5 5-500 MG TABS HYDROCODONE- ACETAMINOPHEN Inactive RAPAMUNE 1 MG TABS 3 tabs in the am RAPAMUNE 1 MG TABS 967077 SIROLIMUS Inactive PROGRAF 0.5 MG CAPS Take one by mouth daily with 1 mg PROGRAF 0.5 MG CAPS 332019 TACROLIMUS Inactive FEXOFENADINE HCL 180 MG TABS 1 Daily FEXOFENADINE HCL 180 MG TABS 263891 FEXOFENADINE HCL Inactive LOTRISONE 0.05-1 % CREAM Apply twice a day to affected area 07/19 LOTRISONE 0.05-1 % CREAM 745181 CLOTRIMAZOLE-BETAMETHASONE Inactive KETOCONAZOLE 2 % CREA apply twice a day to rash KETOCONAZOLE 2 % CREA 168286 KETOCONAZOLE Inactive AUGMENTIN 875-125 MG TAB 1 tab by mouth twice daily with food AUGMENTIN 875-125 MG TAB 709640 AMOXICILLIN-POT CLAVULANATE Inactive ZOFRAN 4 MG TABS 1 po q6hr PRN Nausea ZOFRAN 4 MG TABS 950290 ONDANSETRON HCL Inactive AMOXICILLIN 500 MG TABS 2 tabs twice a day for 10 days AMOXICILLIN 500 MG TABS 109433 AMOXICILLIN Inactive FLONASE ALLERGY RELIEF 50 MCG/ACT NASAL SUSP 2 sprays each nostril daily PRN allergies FLONASE ALLERGY RELIEF 50 MCG/ACT NASAL SUSP 6092706 FLUTICASONE PROPIONATE Inactive HYDROCODONE-ACETAMINOPHEN 5-325 MG TABS 1/2 to 1 po q 4 hours prn pain 11/06 HYDROCODONE-ACETAMINOPHEN 5-325 MG TABS 901842 HYDROCODONE- ACETAMINOPHEN Inactive AMOXICILLIN 500 MG CAPS 2 po BID x 10 days AMOXICILLIN 500 MG CAPS 430853 AMOXICILLIN Inactive AMOXICILLIN 875 MG TABS 1 tab by mouth twice daily AMOXICILLIN 875 MG TABS 212660 AMOXICILLIN Inactive AMOXICILLIN 500 MG CAPS 2 po BID x 10 days AMOXICILLIN 500 MG CAPS 149364 AMOXICILLIN Inactive AMOXICILLIN 500 MG CAPS 2 po BID x 10 days AMOXICILLIN 500 MG CAPS 844695 AMOXICILLIN Inactive AUGMENTIN 875-125 MG TAB 1 tab by mouth twice daily with food AUGMENTIN 875-125 MG TAB 394061 AMOXICILLIN-POT CLAVULANATE Inactive LEVAQUIN 500 MG TABS 1 pill by mouth daily LEVAQUIN 500 MG TABS 540727 LEVOFLOXACIN Inactive AMOXICILLIN 500 MG CAPS 2 po BID x 10 days AMOXICILLIN 500 MG CAPS 284480 AMOXICILLIN Inactive AMOXICILLIN 500 MG CAPS 1 cap by mouth three times a day AMOXICILLIN 500 MG CAPS 684758 AMOXICILLIN Inactive AUGMENTIN 875-125 MG TAB 1 po BID x 10 days AUGMENTIN 875-125 MG TAB 035813 AMOXICILLIN-POT CLAVULANATE Inactive PREDNISONE 20 MG TAB 2 po qd x 4 days PREDNISONE 20 MG TAB 523397 PREDNISONE Inactive AMOXICILLIN 500 MG TABS Take two tablets by mouth every 12 hours for 10 days AMOXICILLIN 500 MG TABS 556453 AMOXICILLIN Inactive Advance Directives Directive Description Start Date PERMISSION TO SHARE Immunizations Vaccine Administration Date Value Standard Description Seasonal influenza vaccine, injectable, preservative free, for > 3 years old ( Afluria, FluLaval, Fluzone, Fluvirin, Fluarix, Agriflu(>=18 yo)) Fluzone preservative free (>=3 yrs.) [SPW067] Influenza, seasonal, injectable, preservative free Adacel (Tetanus, reduced Diphtheria, and acellular Pertussis Immunization) Adacel [[id number]] tetanus toxoid, reduced diphtheria toxoid, and acellular [...] Panel - Chemistry sodium, serum 137 mmol/L 834-904 4466/08/14 carbon dioxide, venous blood 29.7 mmol/L 21.0-32.0 potassium, serum 4.3 mmol/L 3.5-5.2 chloride, serum 99 mmol/L 98-107 blood glucose 123 mg/dL 65-110 urea nitrogen, blood 12 mg/dL 7-18 creatinine, serum 0.84 mg/dL 0.60-1.30 alanine aminotransferase (SGPT), serum 48 U/L 12-78 aspartate aminotransferase (SGOT), serum 26 U/L 15-37 calcium, serum 9.4 mg/dL 8.5-10.1 bilirubin, serum, total 1.60 mg/dL 0.00-1.00 cholesterol, serum 141 mg/dL 691-313 9005/08/14 triglyceride, serum, fasting 54 mg/dL 30-200 HDL [...] 5.0-8.5 Encounters Code Encounter Date Provider Facility CPT-06375 Level 3 Est. Patient 16:06:03 CDT Manish Castrejon [facility] CPT-89152 Level 3 Est. Patient 09:57:24 CDT Manish Castrejon [facility] CPT-66786 Level 3 Est. Patient 16:31:04 CDT Иван Mooney MD [facility] CPT-68297 Level 4 Est. Patient 12:02:18 CDT Hector Love MD [facility] CPT-80359 Level 3 Est. Patient 16:14:45 CDT Hector Love MD [facility] CPT-06092 Level 3 Est. Patient 16:53:35 CDT Иван Mooney MD [facility] CPT-26152 Level 3 Est. Patient 15:57:13 CDT Martha Montejo [facility] CPT-54996 Level 3 Est. Patient 14:30:47 BUSINESS PLANNER Hector Love MD [facility] CPT-07775 Level 3 Est. Patient 14:50:45 CDT Hector Love MD [facility] CPT-71298 Level 3 Est. Patient 21:17:30 CDT Jen Crystal MD, PhD [facility] CPT-02909 Level 3 Est. Patient 09:32:55 CDT Hector Love MD [facility] CPT-02890 Level 3 Est. Patient 15:11:08 BUSINESS PLANNER Иван Mooney MD [facility] CPT-41156 Level 3 Est. Patient 16:38:53 BUSINESS PLANNER Hector Love MD [facility] CPT-65131 Level 3 Est. Patient 15:46:05 CDT Hector Love MD [facility] CPT-76709 Level 3 Est. Patient 13:59:39 CDT Hector Love MD [facility] CPT-24189 Level 3 Est. Patient 14:44:46 BUSINESS PLANNER Hector Love MD [facility] CPT-51358 Level 3 Est. Patient 17:12:27 CDT Hector Love MD [facility] CPT-14368 Level 3 Est. Patient 15:30:32 CDT Hector Love MD [facility] CPT-33600 Level 3 Est. Patient 14:24:52 CDT Иван Mooney MD [facility] CPT-95101 Level 3 Est. Patient 14:08:38 BUSINESS PLANNER Hector Love MD [facility] Procedures Code Procedure Name Date Entry Date Standard Description CPT-48802 Venipuncture Draw Fee 16:18:26 CDT CPT-43185 TB Skin Test 09:57:25 CDT CPT-000 Give Appropriate Flu Vaccine 16:22:23 BUSINESS PLANNER CPT-06107 Free T4 - LAB USE ONLY 11:38:58 CDT CPT-59142 TSH - LAB USE ONLY 11:38:58 CDT CPT-40705 Venipuncture Draw Fee 11:38:58 CDT CPT-31169 Fluzone Quadrivalent Intramuscular Suspension 0.5 ML 16: 12:26 BUSINESS PLANNER CPT-25428 Immunization Single Admin 16:12:26 BUSINESS PLANNER CPT-J0561 Bicillin LA 1,200,000 u (PCN G Benzathine) 16:40:23 CDT CPT-09971 Abx/Therapy Injection 16:40:22 CDT CPT-J0561 Bicillin LA 1,200,000 u (PCN G Benzathine) 16:15:35 CDT CPT-51253 Immunization Single Admin 16:11:28 BUSINESS PLANNER CPT-73589 Fluzone Quadrivalent Intramuscular Suspension 0.5 ML 16: 11:28 BUSINESS PLANNER CPT-58156 Administration single or combination vaccine inc oral 13 :57:23 CDT CPT-68276 Menactra Intramuscular Injectable 13:57:23 CDT CPT-88167 First Vx Component - Ix admin via ID IM or jet inj without physician counseling 16:42:17 BUSINESS PLANNER CPT-29718 Fluzone preservative free (>=3 yrs.) 16:42:17 BUSINESS PLANNER 06/03 CPT-64194 Venipuncture Draw Fee 16:29:01 CDT CPT-72164 Chest 2V Frontal and Lat 16:23:56 CDT CPT-54154 Administration single or combination vaccine inc oral 13 :39:17 BUSINESS PLANNER CPT-48366 Tdap 13:39:17 BUSINESS PLANNER
--- OUTSIDE RECORDS SUMMARY | 2017-11-06 02:00 | XMS REPORT | Clinical Summary ---
Author Author Admin, QIE Organization [facility] Address Unknown Phone Unavailable Allergies, Adverse Reactions, [...] 2 po qd x 4 days PREDNISONE 22800303285 Active Hector Love MD Active HYDROCODONE-ACETAMINOPHEN 5-325 MG TABS 1/2 to 1 po q 4 hours prn pain 11/06 HYDROCODONE-ACETAMINOPHEN 54619729489 No Longer Active Hector Love MD Active FLONASE ALLERGY RELIEF 50 MCG/ACT NASAL SUSP 2 spray each nostril daily prn allergies FLUTICASONE PROPIONATE 47280488873 Active Hector Love MD Active AUGMENTIN 875-125 MG TAB 1 po BID x 10 days AMOXICILLIN-POT CLAVULANATE 04710543926 No Longer Active Hector Love MD Active FLONASE ALLERGY RELIEF 50 MCG/ACT NASAL SUSP 2 sprays each nostril daily PRN allergies FLUTICASONE PROPIONATE 99659398413 No Longer Active Hector Love MD Active AMOXICILLIN 500 MG CAPS 1 cap by mouth three times a day AMOXICILLIN 96856044274 No Longer Active Jillina Frazell [employer] Active KEFLEX 500 MG CAP 1 tab po tid CEPHALEXIN 11445595186 No Longer Active Jillina Frazell [employer] Active AMOXICILLIN 500 MG TABS 2 tabs twice a day for 10 days AMOXICILLIN 36977408360 No Longer Active Jillina Fragretal [employer]STRU[employer] Active ZYRTEC ALLERGY 10 MG CAPS 1 po qd CETIRIZINE HCL 34400218300 Active Hector Love MD Active PROGRAF 1 MG CAPS 2 tabs po bid TACROLIMUS 69284054808 Active Hector Love MD Active ZOFRAN 4 MG TABS 1 po q6hr PRN Nausea ONDANSETRON HCL 41460017933 No Longer Active Ramona Diggs LPN Active AMOXICILLIN 500 MG CAPS 2 po BID x 10 days AMOXICILLIN 83769794029 No Longer Active Matrha Montejo [employer] Active AUGMENTIN 875-125 MG TAB 1 tab by mouth twice daily with food AMOXICILLIN-POT CLAVULANATE 86371413418 No Longer Active Hector Love MD Active LEVAQUIN 500 MG TABS 1 pill by mouth daily LEVOFLOXACIN 34877861450 No Longer Active Jen Crystal MD PhD Active LISINOPRIL 5 MG TABS 1.5 tab qd LISINOPRIL 67922888386 Active Jen Crystal MD PhD Active KETOCONAZOLE 2 % CREA apply twice a day to rash KETOCONAZOLE 06259471462 No Longer Active Hector Love MD Active AUGMENTIN 875-125 MG TAB 1 tab by mouth twice daily with food AMOXICILLIN-POT CLAVULANATE 35236275926 No Longer Active Иван Mooney MD Active LOTRISONE 0.05-1 % CREAM Apply twice a day to affected area 07/19 CLOTRIMAZOLE-BETAMETHASONE 25965400975 No Longer Active Иван Mooney MD Active FEXOFENADINE HCL 180 MG TABS 1 Daily FEXOFENADINE HCL 90165851198 No Longer Active Hector Love MD Active PROGRAF 0.5 MG CAPS Take one by mouth daily with 1 mg TACROLIMUS 11894478700 No Longer Active Hector Love MD Active AMOXICILLIN 500 MG CAPS 2 po BID x 10 days AMOXICILLIN 89060207545 No Longer Active Hector Love MD Active RAPAMUNE 1 MG TABS 3 tabs in the am SIROLIMUS 48797213290 No Longer Active Hector Love MD Active AMOXICILLIN 500 MG CAPS 2 po BID x 10 days AMOXICILLIN 11425276890 No Longer Active Hector Love MD Active LORTAB 5 5-500 MG TABS 1/2 to 1 tablet by mouth every 4 hours as needed for pain HYDROCODONE-ACETAMINOPHEN 96514538654 No Longer Active Hector Love MD Active FLUTICASONE PROPIONATE 50 MCG/ACT SUSP INSTILL 2 SPRAYS IN EACH NOSTRIL Q D FLUTICASONE PROPIONATE 73077274778 No Longer Active Hector Love MD Active PROGRAF 1 MG CAPS 1 po bid TACROLIMUS 61508364322 No Longer Active Hector Love MD Active AMOXICILLIN 875 MG TABS 1 tab by mouth twice daily AMOXICILLIN 19067046732 No Longer Active Hector Love MD Active AMOXICILLIN 500 MG CAPS 2 po BID x 10 days AMOXICILLIN 09802065422 No Longer Active Hector Love MD Active AUGMENTIN 875-125 MG TAB 1 tab by mouth twice daily with food AMOXICILLIN-POT CLAVULANATE 91884406169 No Longer Active Hector Love MD Active AZITHROMYCIN 250 MG TABS 2 po qd x 1 day, then 1 po qd x 4 days AZITHROMYCIN 79974463833 No Longer Active Hector Love MD Active CETIRIZINE HCL 10 MG TABS 1 PO Q D CETIRIZINE HCL 32575537420 No Longer Active Waleska [place] Active PROGRAF 1 MG CAPS 1 po bid PROGRAF 1 MG CAPS 763399 TACROLIMUS Inactive FLUTICASONE PROPIONATE 50 MCG/ACT SUSP INSTILL 2 SPRAYS IN EACH NOSTRIL Q D FLUTICASONE PROPIONATE 50 MCG/ACT SUSP 1033163 FLUTICASONE PROPIONATE Inactive LORTAB 5 5-500 MG TABS 1/2 to 1 tablet by mouth every 4 hours as needed for pain LORTAB 5 5-500 MG TABS HYDROCODONE- ACETAMINOPHEN Inactive RAPAMUNE 1 MG TABS 3 tabs in the am RAPAMUNE 1 MG TABS 764964 SIROLIMUS Inactive PROGRAF 0.5 MG CAPS Take one by mouth daily with 1 mg PROGRAF 0.5 MG CAPS 262348 TACROLIMUS Inactive FEXOFENADINE HCL 180 MG TABS 1 Daily FEXOFENADINE HCL 180 MG TABS 573444 FEXOFENADINE HCL Inactive LOTRISONE 0.05-1 % CREAM Apply twice a day to affected area 07/19 LOTRISONE 0.05-1 % CREAM 603106 CLOTRIMAZOLE-BETAMETHASONE Inactive KETOCONAZOLE 2 % CREA apply twice a day to rash KETOCONAZOLE 2 % CREA 569350 KETOCONAZOLE Inactive AUGMENTIN 875-125 MG TAB 1 tab by mouth twice daily with food AUGMENTIN 875-125 MG TAB 169057 AMOXICILLIN-POT CLAVULANATE Inactive ZOFRAN 4 MG TABS 1 po q6hr PRN Nausea ZOFRAN 4 MG TABS 361790 ONDANSETRON HCL Inactive AMOXICILLIN 500 MG TABS 2 tabs twice a day for 10 days AMOXICILLIN 500 MG TABS 604343 AMOXICILLIN Inactive FLONASE ALLERGY RELIEF 50 MCG/ACT NASAL SUSP 2 sprays each nostril daily PRN allergies FLONASE ALLERGY RELIEF 50 MCG/ACT NASAL SUSP 1575831 FLUTICASONE PROPIONATE Inactive HYDROCODONE-ACETAMINOPHEN 5-325 MG TABS 1/2 to 1 po q 4 hours prn pain 11/06 HYDROCODONE-ACETAMINOPHEN 5-325 MG TABS 540617 HYDROCODONE- ACETAMINOPHEN Inactive AMOXICILLIN 500 MG CAPS 2 po BID x 10 days AMOXICILLIN 500 MG CAPS 573212 AMOXICILLIN Inactive AMOXICILLIN 875 MG TABS 1 tab by mouth twice daily AMOXICILLIN 875 MG TABS 427242 AMOXICILLIN Inactive AMOXICILLIN 500 MG CAPS 2 po BID x 10 days AMOXICILLIN 500 MG CAPS 682362 AMOXICILLIN Inactive AMOXICILLIN 500 MG CAPS 2 po BID x 10 days AMOXICILLIN 500 MG CAPS 968891 AMOXICILLIN Inactive AUGMENTIN 875-125 MG TAB 1 tab by mouth twice daily with food AUGMENTIN 875-125 MG TAB 376109 AMOXICILLIN-POT CLAVULANATE Inactive LEVAQUIN 500 MG TABS 1 pill by mouth daily LEVAQUIN 500 MG TABS 614964 LEVOFLOXACIN Inactive AMOXICILLIN 500 MG CAPS 2 po BID x 10 days AMOXICILLIN 500 MG CAPS 255428 AMOXICILLIN Inactive AMOXICILLIN 500 MG CAPS 1 cap by mouth three times a day AMOXICILLIN 500 MG CAPS 676918 AMOXICILLIN Inactive AUGMENTIN 875-125 MG TAB 1 po BID x 10 days AUGMENTIN 875-125 MG TAB 902910 AMOXICILLIN-POT CLAVULANATE Inactive Advance Directives Directive Description Start Date PERMISSION TO SHARE Immunizations Vaccine Administration Date Value Standard Description Seasonal influenza vaccine, injectable, preservative free, for > 3 years old ( Afluria, FluLaval, Fluzone, Fluvirin, Fluarix, Agriflu(>=18 yo)) Fluzone preservative free (>=3 yrs.) [PMG685] Influenza, seasonal, injectable, preservative free Adacel (Tetanus, reduced Diphtheria, and acellular Pertussis Immunization) Adacel [NCV785] tetanus toxoid, reduced diphtheria toxoid, and acellular [...] 0.76-1.46 Encounters Code Encounter Date Provider Facility CPT-44403 Level 4 Est. Patient 12:02:18 CDT Hector Love MD [facility] CPT-21350 Level 3 Est. Patient 16:14:45 CDT Hector Love MD [facility] CPT-92673 Level 3 Est. Patient 16:53:35 CDT Иван Mooney MD [facility] CPT-63399 Level 3 Est. Patient 15:57:13 CDT Martha Montejo RADHA [facility] CPT-60930 Level 3 Est. Patient 14:30:47 CELL STRIPPER FINAL Hector Love MD [facility] CPT-03913 Level 3 Est. Patient 14:50:45 CDT Hector Love MD [facility] CPT-85185 Level 3 Est. Patient 21:17:30 CDT Jen Crystal MD PhD [facility] CPT-90321 Level 3 Est. Patient 09:32:55 CDT Hector Love MD [facility] CPT-42196 Level 3 Est. Patient 15:11:08 CELL STRIPPER FINAL Иван Mooney MD [facility] CPT-71841 Level 3 Est. Patient 16:38:53 CELL STRIPPER FINAL Hector Love MD [facility] CPT-17525 Level 3 Est. Patient 15:46:05 CDT Hector Love MD [facility] CPT-14394 Level 3 Est. Patient 13:59:39 CDT Hector Love MD [facility] CPT-83994 Level 3 Est. Patient 14:44:46 CELL STRIPPER FINAL Hector Love MD [facility] CPT-32947 Level 3 Est. Patient 17:12:27 CDT Hector Love MD [facility] CPT-37047 Level 3 Est. Patient 15:30:32 CDT Hector Love MD [facility] CPT-97428 Level 3 Est. Patient 14:24:52 CDT Иван Mooney MD [facility] CPT-11252 Level 3 Est. Patient 14:08:38 CELL STRIPPER FINAL Hector Love MD [facility] Procedures Code Procedure Name Date Entry Date Standard Description CPT-05400 Fluzone Quadrivalent Intramuscular Suspension 0.5 ML 16: 12:26 CELL STRIPPER FINAL CPT-22669 Immunization Single Admin 16:12:26 CELL STRIPPER FINAL CPT-J0561 Bicillin LA 1,200,000 u (PCN G Benzathine) 16:40:23 CDT CPT-42634 Abx/Therapy Injection 16:40:22 CDT CPT-J0561 Bicillin LA 1,200,000 u (PCN G Benzathine) 16:15:35 CDT CPT-60184 Immunization Single Admin 16:11:28 CELL STRIPPER FINAL CPT-01631 Fluzone Quadrivalent Intramuscular Suspension 0.5 ML 16: 11:28 CELL STRIPPER FINAL CPT-66668 Administration single or combination vaccine inc oral 13 :57:23 CDT CPT-21297 Menactra Intramuscular Injectable 13:57:23 CDT CPT-74393 First Vx Component - Ix admin via ID IM or jet inj without physician counseling 16:42:17 CELL STRIPPER FINAL CPT-56896 Fluzone preservative free (>=3 yrs.) 16:42:17 CELL STRIPPER FINAL 06/03 CPT-13690 Venipuncture Draw Fee 16:29:01 CDT CPT-68382 Chest 2V Frontal and Lat 16:23:56 CDT CPT-70740 Administration single or combination vaccine inc oral 13 :39:17 CELL STRIPPER FINAL CPT-48998 Tdap 13:39:17 CELL STRIPPER FINAL
--- OUTSIDE RECORDS SUMMARY | 2017-11-06 02:00 | XMS REPORT ---
Author Author [facility] Medical Staff Organization [facility] Address [address] [place], [place] [address] Phone [phone] Care Team Providers Care Senior Telecommunications Engineer Name Role Phone TRINI FRAIRE MD PP [phone] Summary purpose TRANSITION OF CARE AUTO GENERATION [...] for this patient visit History of procedures No procedures recorded for this patient visit. Functional status Functional Status Finding Observation Time Muscle Strength RUE 5 ROM full resist :17 Muscle Strength RLE 5 ROM full resist :17 Muscle Strength LUE 5 ROM full resist :17 Muscle Strength LLE 5 ROM full resist :17 Abdomen Appearance round :17 Abdomen non-tender :17 Bowel Sounds present :17 Garland no :17 Urination normal :17 Quality sym/unlabored :17 Cough absent :17 Secretions no :17 Breath Sounds RUL clear :17 Breath Sounds RML clear :17 Breath Sounds RLL clear :17 Breath Sounds PAULA clear :17 Breath Sounds LLL clear :17 Airway natural :17 Oxygen no :00 Temp >100.4 no : Temp <96.8 no [id number] Chills with rigors no :00 HR > 90bpm no :00 Respirations > 20 no : Systolic <90 no : headache stiff neck no :00 Nursing Note pt given 1 tab augmentin PO with sips H20, given DC instructions and given script, pt voices understranding of instructions, pt voices no questions or concerns, in stable condition, ambulated off unit out to private vehicle. 06-2002:00 Vital signs Type Value Date Respiration Rate 18breaths per minute :00 Pulse 86beats per minute :00 Oxygen Saturation 99% :00 BP Systolic 131mmHg [id number]:00 BP Diastolic 78mmHg [id number]:00 Temperature 98.7F 88-49-747087:00 Social history Type Value Smoking Status NEVER SMOKER Treatment Plan No treatment plan text is available for this visit. Hospital discharge instructions Dismissal Condition good Disposition on DC home DC Inst/Educ Give yes Med/Side Effects Rev yes Flu Vac 2015 Tetanus Vac unk
--- OUTSIDE RECORDS SUMMARY | 2017-11-06 02:01 | XMS REPORT | Clinical Summary ---
Author Author Admin, QIE Organization [facility] Address Unknown Phone Unavailable Allergies, Adverse [...] Other general symptoms Memory loss 780.93 Resolved Hcetor Love MD Memory loss Sinusitis, frontal, acute [...] care facility Fatigue 780.79 Active Manish Castrejon [employer] Other malaise and fatigue Body Mass Index 34.0-34.9 Adult Active Manish Castrejon [employer] Body Mass Index 34.0-34.9, adult HYPERTENSION ICD-401.9 [...] Gastroenteritis, viral, acute ICD-008.8 Inactive Martha Montejo [employer] Bronchitis ICD-490 Inactive Hector Love MD 2014 [...] MG ORAL CAPSULE 2 po BID TACROLIMUS 42067523841 Active Hector Love MD Active CETIRIZINE HCL 10 MG ORAL TABLET 1 po qd PRN Allergies CETIRIZINE HCL 48434622434 Active Hector Love MD Active LISINOPRIL 5 MG ORAL TABLET 1.5 po qd LISINOPRIL 70953661417 Vivek Love MD Active FLUTICASONE PROPIONATE 50 MCG/ACT NASAL SUSPENSION 2 sprays/nostril qd PRN Congestion/Allergies FLUTICASONE PROPIONATE 43949703073 Active Hector Love MD Active VITAMIN C 500 MG ORAL TABLET CHEWABLE ASCORBIC ACID 66423926337 No Longer Active Hector Love MD Active PREDNISONE 20 MG ORAL TABLET 1 tablet daily x 2 days PREDNISONE 77276460132 No Longer Active Manish Castrejon APRN Active AMOXICILLIN 500 MG ORAL TABLET Take two tablets by mouth every 12 hours for 10 days AMOXICILLIN 94168389209 No Longer Active Иван Mooney MD Active PREDNISONE 20 MG ORAL TABLET 2 po qd x 4 days PREDNISONE 62547672253 No Longer Active Hector Love MD Active HYDROCODONE-ACETAMINOPHEN 5-325 MG ORAL TABLET 1/2 to 1 po q 4 hours prn pain HYDROCODONE-ACETAMINOPHEN 41596118345 No Longer Active Hector Love MD Active AUGMENTIN 875-125 MG ORAL TABLET 1 po BID x 10 days AMOXICILLIN-POT CLAVULANATE 08692619017 No Longer Active Hector Love MD Active FLONASE ALLERGY RELIEF 50 MCG/ACT NASAL SUSPENSION 2 sprays each nostril daily PRN allergies FLUTICASONE PROPIONATE 80153649372 No Longer Active Hector Love MD Active AMOXICILLIN 500 MG ORAL CAPSULE 1 cap by mouth three times a day AMOXICILLIN 42569917328 No Longer Active Manish Castrejon APRN Active KEFLEX 500 MG ORAL CAPSULE 1 tab po tid CEPHALEXIN 36954522438 No Longer Active Jillina Fradebora GARCIA Active AMOXICILLIN 500 MG ORAL TABLET 2 tabs twice a day for 10 days AMOXICILLIN 16952939155 No Longer Active Jilldenise Fradebora GARCIA Active ZOFRAN 4 MG ORAL TABLET 1 po q6hr PRN Nausea ONDANSETRON HCL 36372766709 No Longer Active Ramona Diggs LPN Active AMOXICILLIN 500 MG ORAL CAPSULE 2 po BID x 10 days AMOXICILLIN 94485073173 No Longer Active Martha Montejo APRN Active AUGMENTIN 875-125 MG ORAL TABLET 1 tab by mouth twice daily with food AMOXICILLIN-POT CLAVULANATE 14024856044 No Longer Active Hector Love MD Active LEVAQUIN 500 MG ORAL TABLET 1 pill by mouth daily LEVOFLOXACIN 52412808754 No Longer Active Jen Crystal MD PhD Active KETOCONAZOLE 2 % EXTERNAL CREAM apply twice a day to rash KETOCONAZOLE 63277015600 No Longer Active Hector Love MD Active AUGMENTIN 875-125 MG ORAL TABLET 1 tab by mouth twice daily with food AMOXICILLIN-POT CLAVULANATE 97574571602 No Longer Active Иван Mooney MD Active LOTRISONE 1-0.05 % EXTERNAL CREAM Apply twice a day to affected area CLOTRIMAZOLE-BETAMETHASONE 99204193422 No Longer Active Иван Mooney MD Active FEXOFENADINE HCL 180 MG ORAL TABLET 1 Daily FEXOFENADINE HCL 72337960145 No Longer Active Hector Love MD Active PROGRAF 0.5 MG ORAL CAPSULE Take one by mouth daily with 1 mg TACROLIMUS 78767149643 No Longer Active Hector Love MD Active AMOXICILLIN 500 MG ORAL CAPSULE 2 po BID x 10 days AMOXICILLIN 91958401530 No Longer Active Hector Love MD Active RAPAMUNE 1 MG ORAL TABLET 3 tabs in the am SIROLIMUS 96134591308 No Longer Active Hector Love MD Active AMOXICILLIN 500 MG ORAL CAPSULE 2 po BID x 10 days AMOXICILLIN 85713293950 No Longer Active Hector Love MD Active LORTAB 5-500 MG ORAL TABLET 1/2 to 1 tablet by mouth every 4 hours as needed for pain HYDROCODONE-ACETAMINOPHEN 31819345708 No Longer Active Hector Love MD Active FLUTICASONE PROPIONATE 50 MCG/ACT NASAL SUSPENSION INSTILL 2 SPRAYS IN EACH NOSTRIL Q D FLUTICASONE PROPIONATE 50397110421 No Longer Active Hector Love MD Active PROGRAF 1 MG ORAL CAPSULE 1 po bid TACROLIMUS 90100526667 No Longer Active Hector Love MD Active AMOXICILLIN 875 MG ORAL TABLET 1 tab by mouth twice daily AMOXICILLIN 61125422563 No Longer Active Hector Love MD Active AMOXICILLIN 500 MG ORAL CAPSULE 2 po BID x 10 days AMOXICILLIN 94023217170 No Longer Active Hector Love MD Active AUGMENTIN 875-125 MG ORAL TABLET 1 tab by mouth twice daily with food AMOXICILLIN-POT CLAVULANATE 81711292158 No Longer Active Hector Love MD Active AZITHROMYCIN 250 MG ORAL TABLET 2 po qd x 1 day, then 1 po qd x 4 days 06/19 AZITHROMYCIN 90830386593 No Longer Active Hector Love MD Active CETIRIZINE HCL 10 MG ORAL TABLET 1 PO Q D CETIRIZINE HCL 30651101351 No Longer Active [place] Active PROGRAF 1 MG ORAL CAPSULE 1 po bid PROGRAF 1 MG ORAL CAPSULE 982108 TACROLIMUS Inactive FLUTICASONE PROPIONATE 50 MCG/ACT NASAL SUSPENSION INSTILL 2 SPRAYS IN EACH NOSTRIL Q D FLUTICASONE PROPIONATE 50 MCG/ACT NASAL SUSPENSION 7406796 FLUTICASONE PROPIONATE Inactive LORTAB 5-500 MG ORAL TABLET 1/2 to 1 tablet by mouth every 4 hours as needed for pain LORTAB 5-500 MG ORAL TABLET HYDROCODONE- ACETAMINOPHEN Inactive RAPAMUNE 1 MG ORAL TABLET 3 tabs in the am RAPAMUNE 1 MG ORAL TABLET 901725 SIROLIMUS Inactive PROGRAF 0.5 MG ORAL CAPSULE Take one by mouth daily with 1 mg PROGRAF 0.5 MG ORAL CAPSULE 767994 TACROLIMUS Inactive FEXOFENADINE HCL 180 MG ORAL TABLET 1 Daily FEXOFENADINE HCL 180 MG ORAL TABLET 332057 FEXOFENADINE HCL Inactive LOTRISONE 1-0.05 % EXTERNAL CREAM Apply twice a day to affected area LOTRISONE 1-0.05 % EXTERNAL CREAM 071516 CLOTRIMAZOLE- BETAMETHASONE Inactive KETOCONAZOLE 2 % EXTERNAL CREAM apply twice a day to rash KETOCONAZOLE 2 % EXTERNAL CREAM 226698 KETOCONAZOLE Inactive AUGMENTIN 875-125 MG ORAL TABLET 1 tab by mouth twice daily with food AUGMENTIN 875-125 MG ORAL TABLET 022621 AMOXICILLIN-POT CLAVULANATE Inactive ZOFRAN 4 MG ORAL TABLET 1 po q6hr PRN Nausea ZOFRAN 4 MG ORAL TABLET 595435 ONDANSETRON HCL Inactive AMOXICILLIN 500 MG ORAL TABLET 2 tabs twice a day for 10 days AMOXICILLIN 500 MG ORAL TABLET 594727 AMOXICILLIN Inactive FLONASE ALLERGY RELIEF 50 MCG/ACT NASAL SUSPENSION 2 sprays each nostril daily PRN allergies FLONASE ALLERGY RELIEF 50 MCG/ACT NASAL SUSPENSION 7702778 FLUTICASONE PROPIONATE Inactive HYDROCODONE-ACETAMINOPHEN 5-325 MG ORAL TABLET 1/2 to 1 po q 4 hours prn pain HYDROCODONE-ACETAMINOPHEN 5-325 MG ORAL TABLET 420426 HYDROCODONE-ACETAMINOPHEN Inactive PREDNISONE 20 MG ORAL TABLET 1 tablet daily x 2 days PREDNISONE 20 MG ORAL TABLET 287529 PREDNISONE Inactive VITAMIN C 500 MG ORAL TABLET CHEWABLE VITAMIN C 500 MG ORAL TABLET CHEWABLE ASCORBIC ACID Inactive AMOXICILLIN 500 MG ORAL CAPSULE 2 po BID x 10 days AMOXICILLIN 500 MG ORAL CAPSULE 644891 AMOXICILLIN Inactive AMOXICILLIN 875 MG ORAL TABLET 1 tab by mouth twice daily AMOXICILLIN 875 MG ORAL TABLET 260028 AMOXICILLIN Inactive AMOXICILLIN 500 MG ORAL CAPSULE 2 po BID x 10 days AMOXICILLIN 500 MG ORAL CAPSULE 964972 AMOXICILLIN Inactive AMOXICILLIN 500 MG ORAL CAPSULE 2 po BID x 10 days AMOXICILLIN 500 MG ORAL CAPSULE 039998 AMOXICILLIN Inactive AUGMENTIN 875-125 MG ORAL TABLET 1 tab by mouth twice daily with food AUGMENTIN 875-125 MG ORAL TABLET 168765 AMOXICILLIN-POT CLAVULANATE Inactive LEVAQUIN 500 MG ORAL TABLET 1 pill by mouth daily LEVAQUIN 500 MG ORAL TABLET 408586 LEVOFLOXACIN Inactive AMOXICILLIN 500 MG ORAL CAPSULE 2 po BID x 10 days AMOXICILLIN 500 MG ORAL CAPSULE 445892 AMOXICILLIN Inactive AMOXICILLIN 500 MG ORAL CAPSULE 1 cap by mouth three times a day AMOXICILLIN 500 MG ORAL CAPSULE 558856 AMOXICILLIN Inactive AUGMENTIN 875-125 MG ORAL TABLET 1 po BID x 10 days AUGMENTIN 875-125 MG ORAL TABLET 163481 AMOXICILLIN-POT CLAVULANATE Inactive PREDNISONE 20 MG ORAL TABLET 2 po qd x 4 days PREDNISONE 20 MG ORAL TABLET 256765 PREDNISONE Inactive AMOXICILLIN 500 MG ORAL TABLET Take two tablets by mouth every 12 hours for 10 days AMOXICILLIN 500 MG ORAL TABLET 150155 AMOXICILLIN Inactive Advance Directives Directive Description Start Date PERMISSION TO SHARE Immunizations Vaccine Administration Date Value Standard Description Seasonal influenza vaccine, injectable, preservative free, for > 3 years old ( Afluria, FluLaval, Fluzone, Fluvirin, Fluarix, Agriflu(>=18 yo)) Fluzone preservative free (>=3 yrs.) [[id number]] Influenza, seasonal, injectable, preservative free Adacel (Tetanus, reduced Diphtheria, and acellular Pertussis Immunization) Adacel [FKL669] tetanus toxoid, reduced diphtheria toxoid, and acellular [...] Panel - Chemistry sodium, serum 137 mmol/L 379-197 1671/08/14 carbon dioxide, venous blood 29.7 mmol/L 21.0-32.0 potassium, serum 4.3 mmol/L 3.5-5.2 chloride, serum 99 mmol/L 98-107 blood glucose 123 mg/dL 65-110 urea nitrogen, blood 12 mg/dL 7-18 creatinine, serum 0.84 mg/dL 0.60-1.30 alanine aminotransferase (SGPT), serum 48 U/L 12-78 aspartate aminotransferase (SGOT), serum 26 U/L 15-37 calcium, serum 9.4 mg/dL 8.5-10.1 bilirubin, serum, total 1.60 mg/dL 0.00-1.00 cholesterol, serum 141 mg/dL 112-306 4789/08/14 triglyceride, serum, fasting 54 mg/dL 30-200 HDL [...] ... - Chemistry sodium, serum 137 mmol/L 525-278 1471/04/23 carbon dioxide, venous blood 28.4 mmol/L 21.0-32.0 [...] semiquantitative 6.0 5.0-8.5 Lab Report: VITAMIN D, 25-[id number] - Chemistry vitamin D 25-hydroxy, serum 18 ng/mL 30-100 vitamin D 25-hydroxy, serum 44 ng/mL 30-100 Encounters Code Encounter Date Provider Facility CPT-70485 Level 3 Est. Patient 10:49:01 CDT Manish Castrejon [facility] CPT-83004 Level 3 Est. Patient 11:35:07 CDT Elijahzeyad Chasel [facility] CPT-58298 Level 3 Est. Patient 17:22:36 CDT Tracy Frey [facility] CPT-64300 Level 3 Est. Patient 16:06:03 CDT Elijahudaydenise Uriosteguigretal [facility] CPT-08193 Level 3 Est. Patient 09:57:24 CDT Elijahzeyad Moodygretal [facility] CPT-64296 Level 3 Est. Patient 16:31:04 CDT Иван Mooney MD [facility] CPT-81238 Level 4 Est. Patient 12:02:18 CDT Hector Love MD [facility] CPT-60941 Level 3 Est. Patient 16:14:45 CDT Hector Love MD [facility] CPT-56377 Level 3 Est. Patient 16:53:35 CDT Иван Mooney MD [facility] CPT-41879 Level 3 Est. Patient 15:57:13 CDT Martha Nikia [facility] CPT-29656 Level 3 Est. Patient 14:30:47 [employer] Hector Love MD [facility] CPT-88146 Level 3 Est. Patient 14:50:45 CDT Hector Love MD [facility] CPT-79184 Level 3 Est. Patient 21:17:30 CDT Jen Crystal MD, PhD [facility] CPT-88318 Level 3 Est. Patient 09:32:55 CDT Hector Love MD [facility]-40046 Level 3 Est. Patient 15:11:08 [employer] Иван Mooney MD [facility] CPT-54317 Level 3 Est. Patient 16:38:53 [employer] Hector Love MD [facility] CPT-87636 Level 3 Est. Patient 15:46:05 CDT Hector Love MD [facility] CPT-45774 Level 3 Est. Patient 13:59:39 CDT Hector Love MD [facility] CPT-07270 Level 3 Est. Patient 14:44:46 [employer] Hector Love MD [facility] CPT-80061 Level 3 Est. Patient 17:12:27 CDT Hector Love MD [facility] CPT-80998 Level 3 Est. Patient 15:30:32 CDT Hector Love MD [facility] CPT-18266 Level 3 Est. Patient 14:24:52 CDT Иван Mooney MD [facility] CPT-86510 Level 3 Est. Patient 14:08:38 [employer] Hector Love MD [facility] Procedures Code Procedure Name Date Entry Date Standard Description CPT-75873 Chest, 2 views 11:04:30 CDT CPT-61781 Venipuncture Draw Fee 16:18:26 CDT CPT-70052 TB Skin Test 09:57:25 CDT CPT-000 Give Appropriate Flu Vaccine 16:22:23 [employer] CPT-68345 Free T4 - LAB USE ONLY 11:38:58 CDT CPT-03298 TSH - LAB USE ONLY 11:38:58 CDT CPT-23125 Venipuncture Draw Fee 11:38:58 CDT CPT-08702 Fluzone Quadrivalent Intramuscular Suspension 0.5 ML 16: 12:26 [employer] CPT-88351 Immunization Single Admin 16:12:26 [employer] CPT-J0561 Bicillin LA 1,200,000 u (PCN G Benzathine) 16:40:23 CDT CPT-77624 Abx/Therapy Injection 16:40:22 CDT CPT-J0561 Bicillin LA 1,200,000 u (PCN G Benzathine) 16:15:35 CDT CPT-66086 Immunization Single Admin 16:11:28 [employer] CPT-88057 Fluzone Quadrivalent Intramuscular Suspension 0.5 ML 16: 11:28 [employer] CPT-31504 Administration single or combination vaccine inc oral 13 :57:23 CDT CPT-33366 Menactra Intramuscular Injectable 13:57:23 CDT CPT-11125 First Vx Component - Ix admin via ID IM or jet inj without physician counseling 16:42:17 [employer] CPT-11563 Fluzone preservative free (>=3 yrs.) 16:42:17 [employer] 06/03 CPT-84136 Venipuncture Draw Fee 16:29:01 CDT CPT-32143 Chest 2V Frontal and Lat 16:23:56 CDT CPT-38934 Administration single or combination vaccine inc oral 13 :39:17 [employer] CPT-54072 Tdap 13:39:17 [employer]
--- OUTSIDE RECORDS SUMMARY | 2017-11-06 02:02 | XMS REPORT | Clinical Summary ---
Author Author Admin, LAMBERT Organization [facility] Address Unknown Phone Unavailable Allergies, Adverse Reactions, [...] Unspecified essential hypertension FH DIABETES V18.0 Resolved eHctor Love MD Family history of diabetes mellitus [...] Love MD Sinusitis, frontal, acute ICD-461.1 Inactive Hetcor Love MD NEED FOR PROPHYLACTIC VACCINATION WITH STREPTOCOCCUS PNEUMONIAE (PNEUMOCOCCUS) AND INFLUENZA ICD-V06.6 Inactive Hector Love MD SINUSITIS, ACUTE ICD-461.9 Inactive Hector Love MD Gastroenteritis, viral, acute ICD-008.8 Inactive Martha Montejo APRN Medication List Medication Instructions Start Date Stop Date Generic Name NDC Status Provider Patient Instruction AMOXICILLIN 500 MG CAPS 2 po BID x 10 days AMOXICILLIN 24397096766 No Longer Active Martha Montejo APRN Active ZOFRAN 4 MG TABS 1 po q6hr PRN Nausea ONDANSETRON HCL 53056786879 Active Hector Love MD Active AUGMENTIN 875-125 MG TAB 1 tab by mouth twice daily with food AMOXICILLIN-POT CLAVULANATE 94559720265 No Longer Active Hector Love MD Active FLONASE 50 MCG/ACT SUSP 2 puffs in each nostril daily PRN Allergies FLUTICASONE PROPIONATE 82387839127 Active Hector Love MD Active LEVAQUIN 500 MG TABS 1 pill by mouth daily LEVOFLOXACIN 36259967357 No Longer Active Jen Crystal MD PhD Active LISINOPRIL 5 MG TABS 1.5 tab qd LISINOPRIL 03279215025 Active Jen Crystal MD PhD Active KETOCONAZOLE 2 % CREA apply twice a day to rash KETOCONAZOLE 73530067771 No Longer Active Hector Love MD Active AUGMENTIN 875-125 MG TAB 1 tab by mouth twice daily with food AMOXICILLIN-POT CLAVULANATE 39122354054 No Longer Active Иван Mooney MD Active LOTRISONE 0.05-1 % CREAM Apply twice a day to affected area 07/19 CLOTRIMAZOLE-BETAMETHASONE 24397347083 No Longer Active Иван Mooney MD Active PROGRAF 1 MG CAPS 4 tabs po bid TACROLIMUS 25132053586 Active Hector Love MD Active FEXOFENADINE HCL 180 MG TABS 1 Daily FEXOFENADINE HCL 34791034656 No Longer Active Hector Love MD Active PROGRAF 0.5 MG CAPS Take one by mouth daily with 1 mg TACROLIMUS 42936546398 No Longer Active Hector Love MD Active AMOXICILLIN 500 MG CAPS 2 po BID x 10 days AMOXICILLIN 79487165776 No Longer Active Hector Love MD Active RAPAMUNE 1 MG TABS 3 tabs in the am SIROLIMUS 76042055655 No Longer Active Hector Love MD Active AMOXICILLIN 500 MG CAPS 2 po BID x 10 days AMOXICILLIN 01738909190 No Longer Active Hector Love MD Active LORTAB 5 5-500 MG TABS 1/2 to 1 tablet by mouth every 4 hours as needed for pain HYDROCODONE-ACETAMINOPHEN 95133711062 No Longer Active Hector Love MD Active FLUTICASONE PROPIONATE 50 MCG/ACT SUSP INSTILL 2 SPRAYS IN EACH NOSTRIL Q D FLUTICASONE PROPIONATE 24083498598 No Longer Active Hector Love MD Active PROGRAF 1 MG CAPS 1 po bid TACROLIMUS 57017883689 No Longer Active Hector Love MD Active AMOXICILLIN 875 MG TABS 1 tab by mouth twice daily AMOXICILLIN 21088993742 No Longer Active Hector Love MD Active AMOXICILLIN 500 MG CAPS 2 po BID x 10 days AMOXICILLIN 10591011571 No Longer Active Hector Love MD Active AUGMENTIN 875-125 MG TAB 1 tab by mouth twice daily with food AMOXICILLIN-POT CLAVULANATE 22811567403 No Longer Active Hector Love MD Active AZITHROMYCIN 250 MG TABS 2 po qd x 1 day, then 1 po qd x 4 days AZITHROMYCIN 96488373662 No Longer Active Hector Love MD Active CETIRIZINE HCL 10 MG TABS 1 PO Q D CETIRIZINE HCL 15688681208 No Longer Active Waleska Levy Active PROGRAF 1 MG CAPS 1 po bid PROGRAF 1 MG CAPS 418221 TACROLIMUS Inactive FLUTICASONE PROPIONATE 50 MCG/ACT SUSP INSTILL 2 SPRAYS IN EACH NOSTRIL Q D FLUTICASONE PROPIONATE 50 MCG/ACT SUSP 589542 FLUTICASONE PROPIONATE Inactive LORTAB 5 5-500 MG TABS 1/2 to 1 tablet by mouth every 4 hours as needed for pain LORTAB 5 5-500 MG TABS HYDROCODONE- ACETAMINOPHEN Inactive RAPAMUNE 1 MG TABS 3 tabs in the am RAPAMUNE 1 MG TABS 265082 SIROLIMUS Inactive PROGRAF 0.5 MG CAPS Take one by mouth daily with 1 mg PROGRAF 0.5 MG CAPS 134640 TACROLIMUS Inactive FEXOFENADINE HCL 180 MG TABS 1 Daily FEXOFENADINE HCL 180 MG TABS 939484 FEXOFENADINE HCL Inactive LOTRISONE 0.05-1 % CREAM Apply twice a day to affected area 07/19 LOTRISONE 0.05-1 % CREAM 609463 CLOTRIMAZOLE-BETAMETHASONE Inactive KETOCONAZOLE 2 % CREA apply twice a day to rash KETOCONAZOLE 2 % CREA 956043 KETOCONAZOLE Inactive AUGMENTIN 875-125 MG TAB 1 tab by mouth twice daily with food AUGMENTIN 875-125 MG TAB 391077 AMOXICILLIN-POT CLAVULANATE Inactive AMOXICILLIN 500 MG CAPS 2 po BID x 10 days AMOXICILLIN 500 MG CAPS 726424 AMOXICILLIN Inactive AMOXICILLIN 875 MG TABS 1 tab by mouth twice daily AMOXICILLIN 875 MG TABS 409600 AMOXICILLIN Inactive AMOXICILLIN 500 MG CAPS 2 po BID x 10 days AMOXICILLIN 500 MG CAPS 840405 AMOXICILLIN Inactive AMOXICILLIN 500 MG CAPS 2 po BID x 10 days AMOXICILLIN 500 MG CAPS 865087 AMOXICILLIN Inactive AUGMENTIN 875-125 MG TAB 1 tab by mouth twice daily with food AUGMENTIN 875-125 MG TAB 992349 AMOXICILLIN-POT CLAVULANATE Inactive LEVAQUIN 500 MG TABS 1 pill by mouth daily LEVAQUIN 500 MG TABS 319389 LEVOFLOXACIN Inactive AMOXICILLIN 500 MG CAPS 2 po BID x 10 days AMOXICILLIN 500 MG CAPS 150175 AMOXICILLIN Inactive Advance Directives Directive Description Start Date PERMISSION TO SHARE Immunizations Vaccine Administration Date Value Standard Description Seasonal influenza vaccine, injectable, preservative free, for > 3 years old ( Afluria, FluLaval, Fluzone, Fluvirin, Fluarix, Agriflu(>=18 yo)) Fluzone preservative free (>=3 yrs.) [WGF898] Influenza, seasonal, injectable, preservative free Adacel (Tetanus, reduced Diphtheria, and acellular Pertussis Immunization) Adacel [LJM701] tetanus toxoid, reduced diphtheria toxoid, and acellular [...] Outside labs entered on flowsheet - Chemistry creatinine, serum 0.90 mg/dL aspartate aminotransferase (SGOT), serum 27 U/L alanine aminotransferase (SGPT), serum 47 U/L alkaline phosphatase, serum 68 U/L sodium, serum 139 mmol/L potassium, serum 4.2 mmol/L blood glucose 100 mg/dL creatinine, serum 0.90 mg/dL aspartate aminotransferase (SGOT), serum 29 U/L alanine aminotransferase (SGPT), serum 58 U/L alkaline phosphatase, serum 73 U/L sodium, serum 139 mmol/L potassium, serum 4.1 mmol/L blood glucose 120 mg/dL Chart Maintenance: Outside labs entered on flowsheet - Hematology hemoglobin, blood 15.0 g/dL platelet count 244 10*3/mm3 leukocyte count, blood 7.9 10*3/mm3 leukocyte count, blood 8.6 10*3/mm3 hemoglobin, blood 14.8 g/dL platelet count 223 10*3/mm3 Lab Report: CBC W/DIFF, Comp. Metabolic Panel, Thyroid Stimulating Hormo ... - Chemistry sodium, serum 139 mmol/L 339-562 0553/07/18 potassium, serum 4.5 mmol/L 3.5-5.2 chloride, serum [...] 1.30 mg/dL 0.00-1.00 TSH 3.10 m[iU]/mL 0.36-3.74 protein, total urine random Negative mg/dL Negative RBC, urine, dipstick Negative Negative Lab Report: CBC W/DIFF, Comp. Metabolic Panel, Thyroid Stimulating Hormo ... - Hematology mean corpuscular hemoglobin concentration, RBC 33.8 G/DL % 31.8- 35.4 mean corpuscular hemoglobin, RBC 30.1 pg 27.0-31.2 mean corpuscular volume, RBC 89 fL 80-97 hematocrit, blood 44.1 % 41.0-53.0 hemoglobin, blood 14.9 g/dL 13.5-17.5 erythrocyte (RBC) count 4.95 10^6/MM^3 10*6/mm3 4.69-6.13 lymphocytes as percent of blood leukocytes 40.5 % 20.5-51.1 monocytes as percent of blood leukocytes 9.6 % 1.7-9.3 neutrophils as percent of blood leukocytes 46.5 % 42.2-75.2 leukocyte count, blood 7.6 10^3/MM^3 10*3/mm3 4.6-10.2 red blood cell distribution width 15.0 % 11.6-14.8 platelet count 210 10^3/MM^3 10*3/mm3 142-424 Lab Report: CBC W/DIFF, Comp. Metabolic Panel, Thyroid Stimulating Hormo ... - Urinalysis urobilinogen, urine, semiquantitative (dipstick) 0.2 Normal leukocyte [...] EBV, Myco Pneumo, RapidStrep Rflx/Cx - Hematology hematocrit, blood 45.0 % 41.0-53.0 mean corpuscular volume, RBC 90 fL 80-97 mean corpuscular hemoglobin, RBC 30.5 pg 27.0-31.2 mean corpuscular hemoglobin concentration, RBC 33.9 G/DL % 31.8- 35.4 red blood cell distribution width 14.3 % 11.6-14.8 platelet count 235 10^3/MM^3 10*3/mm3 319-916 0915/09/02 leukocyte count, blood 16.1 10^3/MM^3 10*3/mm3 4.6-10.2 neutrophils as percent of blood leukocytes 66.3 % 42.2-75.2 monocytes as percent of blood leukocytes 9.6 % 1.7-9.3 lymphocytes as percent of blood leukocytes 20.5 % 20.5-51.1 erythrocyte (RBC) count 5.01 10^6/MM^3 10*6/mm3 4.69-6.13 hemoglobin, blood 15.3 g/dL 13.5-17.5 Lab Report: CBC W/DIFF, MONO w/Rflx EBV, Myco Pneumo, RapidStrep Rflx/Cx - Lab Microbial identification kit, rapid strep method Negative-Throat Culture to Follow Negative Encounters Code Encounter Date Provider Facility CPT-66381 Level 3 Est. Patient 15:57:13 CDT Martha Montejo APRN [facility] CPT-55376 Level 3 Est. Patient 14:30:47 [employer] Hector Love MD [facility] CPT-96492 Level 3 Est. Patient 14:50:45 CDT Hector Love MD [facility] CPT-95269 Level 3 Est. Patient 21:17:30 CDT Jen Crystal MD, PhD [facility] CPT-81174 Level 3 Est. Patient 09:32:55 CDT Hector Love MD [facility] CPT-98017 Level 3 Est. Patient 15:11:08 [employer] Иван Mooney MD [facility] CPT-45826 Level 3 Est. Patient 16:38:53 [employer] Hector Love MD [facility] CPT-98357 Level 3 Est. Patient 15:46:05 CDT Hector Love MD [facility] CPT-62368 Level 3 Est. Patient 13:59:39 CDT Hector Love MD [facility] CPT-23352 Level 3 Est. Patient 14:44:46 [employer] Hector Love MD [facility] CPT-43676 Level 3 Est. Patient 17:12:27 CDT Hector Love MD [facility] CPT-28792 Level 3 Est. Patient 15:30:32 CDT Hector Love MD [facility] CPT-55662 Level 3 Est. Patient 14:24:52 CDT Иван Mooney MD [facility] CPT-96355 Level 3 Est. Patient 14:08:38 [employer] Hector Love MD [facility] Procedures Code Procedure Name Date Entry Date Standard Description CPT-16696 Immunization Single Admin 16:11:28 [employer] CPT-78023 Fluzone Quadrivalent Intramuscular Suspension 0.5 ML 16: 11:28 [employer] CPT-72707 Administration single or combination vaccine inc oral 13 :57:23 CDT CPT-51505 Menactra Intramuscular Injectable 13:57:23 CDT CPT-79010 First Vx Component - Ix admin via ID IM or jet inj without physician counseling 16:42:17 [employer] CPT-55336 Fluzone preservative free (>=3 yrs.) 16:42:17 [employer] 06/03 CPT-09731 Venipuncture Draw Fee 16:29:01 CDT CPT-39511 Chest 2V Frontal and Lat 16:23:56 CDT CPT-90939 Administration single or combination vaccine inc oral 13 :39:17 [employer] CPT-53899 Tdap 13:39:17 [employer]
--- OUTSIDE RECORDS SUMMARY | 2017-11-06 02:04 | XMS REPORT | Clinical Summary ---
Author Author Admin, LAMBERT Organization [employer] Address Unknown Phone Unavailable Allergies, Adverse Reactions, [...] Gastroenteritis, viral, acute 008.8 Resolved Martha Montejo GEOSCIENCE LABORATORY TECHNICIAN Intestinal infection due to other organism, not [...] employment physical examination V70.0 Active Manish Castrejon GEOSCIENCE LABORATORY TECHNICIAN Routine general medical examination at a health care facility Exposure to mononucleosis V01.79 Active Manish Castrejon GEOSCIENCE LABORATORY TECHNICIAN Contact with or exposure to other viral diseases Stress at work V62.1 Active Manish Castrejon GEOSCIENCE LABORATORY TECHNICIAN Adverse effects of work environment FH DIABETES [...] Gastroenteritis, viral, acute ICD-008.8 Inactive Martha Montejo GEOSCIENCE LABORATORY TECHNICIAN Pharyngitis ICD-462 Inactive Hector Love MD Ingrown toenail ICD-703.0 Inactive Hector Love MD Ingrown toenail, right ICD-703.0 Inactive Hector Love MD Bronchitis ICD-490 Inactive Hector Love MD 2014 Medication List Medication Instructions Start Date Stop Date Generic Name NDC Status Provider Patient Instruction PREDNISONE 20 MG TAB 1 tablet daily x 2 days PREDNISONE 26786725128 No Longer Active Jillina Frazell GEOSCIENCE LABORATORY TECHNICIAN Active AMOXICILLIN 500 MG TABS Take two tablets by mouth every 12 hours for 10 days AMOXICILLIN 94211171167 No Longer Active Иван Mooney MD Active VITAMIN C 500 MG CHEW TAB ASCORBIC ACID 55489048451 Active Иван Mooney MD Active PREDNISONE 20 MG TAB 2 po qd x 4 days PREDNISONE 03923093364 No Longer Active Hector Love MD Active HYDROCODONE-ACETAMINOPHEN 5-325 MG TABS 1/2 to 1 po q 4 hours prn pain 11/06 HYDROCODONE-ACETAMINOPHEN 47420872445 No Longer Active Hector Love MD Active FLONASE ALLERGY RELIEF 50 MCG/ACT NASAL SUSP 2 spray each nostril daily prn allergies FLUTICASONE PROPIONATE 63295008627 Active Hector Love MD Active AUGMENTIN 875-125 MG TAB 1 po BID x 10 days AMOXICILLIN-POT CLAVULANATE 67262897248 No Longer Active Hector Love MD Active FLONASE ALLERGY RELIEF 50 MCG/ACT NASAL SUSP 2 sprays each nostril daily PRN allergies FLUTICASONE PROPIONATE 41795327956 No Longer Active Hector Love MD Active AMOXICILLIN 500 MG CAPS 1 cap by mouth three times a day AMOXICILLIN 55509749132 No Longer Active Jillina Fradebora GARCIA Active KEFLEX 500 MG CAP 1 tab po tid CEPHALEXIN 48561800386 No Longer Active Jillina Frazell GEOSCIENCE LABORATORY TECHNICIAN Active AMOXICILLIN 500 MG TABS 2 tabs twice a day for 10 days AMOXICILLIN 48193764410 No Longer Active Jillina Frazell GEOSCIENCE LABORATORY TECHNICIAN Active ZYRTEC ALLERGY 10 MG CAPS 1 po qd CETIRIZINE HCL 36851977629 Active Hector Love MD Active PROGRAF 1 MG CAPS 2 tabs po bid TACROLIMUS 06647250226 Active Hector Love MD Active ZOFRAN 4 MG TABS 1 po q6hr PRN Nausea ONDANSETRON HCL 75381342154 No Longer Active Ramona Diggs DIRECTOR OF BUSINESS DEVELOPMENT Active AMOXICILLIN 500 MG CAPS 2 po BID x 10 days AMOXICILLIN 30266718233 No Longer Active Martha Escalantestephen GEOSCIENCE LABORATORY TECHNICIAN Active AUGMENTIN 875-125 MG TAB 1 tab by mouth twice daily with food AMOXICILLIN-POT CLAVULANATE 48453182432 No Longer Active Hector Love MD Active LEVAQUIN 500 MG TABS 1 pill by mouth daily LEVOFLOXACIN 43612278134 No Longer Active Jen Crystal MD PhD Active LISINOPRIL 5 MG TABS 1.5 tab qd LISINOPRIL 28041353754 Active Jen Crystal MD PhD Active KETOCONAZOLE 2 % CREA apply twice a day to rash KETOCONAZOLE 72990055959 No Longer Active Hector Love MD Active AUGMENTIN 875-125 MG TAB 1 tab by mouth twice daily with food AMOXICILLIN-POT CLAVULANATE 22531495799 No Longer Active Иван Mooney MD Active LOTRISONE 0.05-1 % CREAM Apply twice a day to affected area 07/19 CLOTRIMAZOLE-BETAMETHASONE 04375439222 No Longer Active Иван Mooney MD Active FEXOFENADINE HCL 180 MG TABS 1 Daily FEXOFENADINE HCL 73063355145 No Longer Active Hector Love MD Active PROGRAF 0.5 MG CAPS Take one by mouth daily with 1 mg TACROLIMUS 38399483713 No Longer Active Hector Love MD Active AMOXICILLIN 500 MG CAPS 2 po BID x 10 days AMOXICILLIN 01243334051 No Longer Active Hector Love MD Active RAPAMUNE 1 MG TABS 3 tabs in the am SIROLIMUS 25873332607 No Longer Active Hector Love MD Active AMOXICILLIN 500 MG CAPS 2 po BID x 10 days AMOXICILLIN 49740329994 No Longer Active Hector Love MD Active LORTAB 5 5-500 MG TABS 1/2 to 1 tablet by mouth every 4 hours as needed for pain HYDROCODONE-ACETAMINOPHEN 18781117558 No Longer Active Hector Love MD Active FLUTICASONE PROPIONATE 50 MCG/ACT SUSP INSTILL 2 SPRAYS IN EACH NOSTRIL Q D FLUTICASONE PROPIONATE 02183488564 No Longer Active Hector Love MD Active PROGRAF 1 MG CAPS 1 po bid TACROLIMUS 73048444614 No Longer Active Hector Love MD Active AMOXICILLIN 875 MG TABS 1 tab by mouth twice daily AMOXICILLIN 47998931913 No Longer Active Hector Love MD Active AMOXICILLIN 500 MG CAPS 2 po BID x 10 days AMOXICILLIN 60065961937 No Longer Active Hector Love MD Active AUGMENTIN 875-125 MG TAB 1 tab by mouth twice daily with food AMOXICILLIN-POT CLAVULANATE 25779725052 No Longer Active Hector Love MD Active AZITHROMYCIN 250 MG TABS 2 po qd x 1 day, then 1 po qd x 4 days AZITHROMYCIN 87213199511 No Longer Active Hector Love MD Active CETIRIZINE HCL 10 MG TABS 1 PO Q D CETIRIZINE HCL 24696423828 No Longer Active Waleska Remington Active PROGRAF 1 MG CAPS 1 po bid PROGRAF 1 MG CAPS 985523 TACROLIMUS Inactive FLUTICASONE PROPIONATE 50 MCG/ACT SUSP INSTILL 2 SPRAYS IN EACH NOSTRIL Q D FLUTICASONE PROPIONATE 50 MCG/ACT SUSP 7450031 FLUTICASONE PROPIONATE Inactive LORTAB 5 5-500 MG TABS 1/2 to 1 tablet by mouth every 4 hours as needed for pain LORTAB 5 5-500 MG TABS HYDROCODONE- ACETAMINOPHEN Inactive RAPAMUNE 1 MG TABS 3 tabs in the am RAPAMUNE 1 MG TABS 151591 SIROLIMUS Inactive PROGRAF 0.5 MG CAPS Take one by mouth daily with 1 mg PROGRAF 0.5 MG CAPS 365264 TACROLIMUS Inactive FEXOFENADINE HCL 180 MG TABS 1 Daily FEXOFENADINE HCL 180 MG TABS 639109 FEXOFENADINE HCL Inactive LOTRISONE 0.05-1 % CREAM Apply twice a day to affected area 07/19 LOTRISONE 0.05-1 % CREAM 213070 CLOTRIMAZOLE-BETAMETHASONE Inactive KETOCONAZOLE 2 % CREA apply twice a day to rash KETOCONAZOLE 2 % CREA 626254 KETOCONAZOLE Inactive AUGMENTIN 875-125 MG TAB 1 tab by mouth twice daily with food AUGMENTIN 875-125 MG TAB 172436 AMOXICILLIN-POT CLAVULANATE Inactive ZOFRAN 4 MG TABS 1 po q6hr PRN Nausea ZOFRAN 4 MG TABS 973921 ONDANSETRON HCL Inactive AMOXICILLIN 500 MG TABS 2 tabs twice a day for 10 days AMOXICILLIN 500 MG TABS 660143 AMOXICILLIN Inactive FLONASE ALLERGY RELIEF 50 MCG/ACT NASAL SUSP 2 sprays each nostril daily PRN allergies FLONASE ALLERGY RELIEF 50 MCG/ACT NASAL SUSP 0633517 FLUTICASONE PROPIONATE Inactive HYDROCODONE-ACETAMINOPHEN 5-325 MG TABS 1/2 to 1 po q 4 hours prn pain 11/06 HYDROCODONE-ACETAMINOPHEN 5-325 MG TABS 835586 HYDROCODONE- ACETAMINOPHEN Inactive PREDNISONE 20 MG TAB 1 tablet daily x 2 days PREDNISONE 20 MG TAB 325572 PREDNISONE Inactive AMOXICILLIN 500 MG CAPS 2 po BID x 10 days AMOXICILLIN 500 MG CAPS 504731 AMOXICILLIN Inactive AMOXICILLIN 875 MG TABS 1 tab by mouth twice daily AMOXICILLIN 875 MG TABS 951662 AMOXICILLIN Inactive AMOXICILLIN 500 MG CAPS 2 po BID x 10 days AMOXICILLIN 500 MG CAPS 160222 AMOXICILLIN Inactive AMOXICILLIN 500 MG CAPS 2 po BID x 10 days AMOXICILLIN 500 MG CAPS 950934 AMOXICILLIN Inactive AUGMENTIN 875-125 MG TAB 1 tab by mouth twice daily with food AUGMENTIN 875-125 MG TAB 237727 AMOXICILLIN-POT CLAVULANATE Inactive LEVAQUIN 500 MG TABS 1 pill by mouth daily LEVAQUIN 500 MG TABS 972872 LEVOFLOXACIN Inactive AMOXICILLIN 500 MG CAPS 2 po BID x 10 days AMOXICILLIN 500 MG CAPS 004033 AMOXICILLIN Inactive AMOXICILLIN 500 MG CAPS 1 cap by mouth three times a day AMOXICILLIN 500 MG CAPS 489271 AMOXICILLIN Inactive AUGMENTIN 875-125 MG TAB 1 po BID x 10 days AUGMENTIN 875-125 MG TAB 448105 AMOXICILLIN-POT CLAVULANATE Inactive PREDNISONE 20 MG TAB 2 po qd x 4 days PREDNISONE 20 MG TAB 434145 PREDNISONE Inactive AMOXICILLIN 500 MG TABS Take two tablets by mouth every 12 hours for 10 days AMOXICILLIN 500 MG TABS 211566 AMOXICILLIN Inactive Advance Directives Directive Description Start Date PERMISSION TO SHARE Immunizations Vaccine Administration Date Value Standard Description Seasonal influenza vaccine, injectable, preservative free, for > 3 years old ( Afluria, FluLaval, Fluzone, Fluvirin, Fluarix, Agriflu(>=18 yo)) Fluzone preservative free (>=3 yrs.) [FFI545] Influenza, seasonal, injectable, preservative free Adacel (Tetanus, reduced Diphtheria, and acellular Pertussis Immunization) Adacel [ZPG172] tetanus toxoid, reduced diphtheria toxoid, and acellular [...] Panel - Chemistry sodium, serum 137 mmol/L 152-857 3088/08/14 carbon dioxide, venous blood 29.7 mmol/L 21.0-32.0 potassium, serum 4.3 mmol/L 3.5-5.2 chloride, serum 99 mmol/L 98-107 blood glucose 123 mg/dL 65-110 urea nitrogen, blood 12 mg/dL 7-18 creatinine, serum 0.84 mg/dL 0.60-1.30 alanine aminotransferase (SGPT), serum 48 U/L 12-78 aspartate aminotransferase (SGOT), serum 26 U/L 15-37 calcium, serum 9.4 mg/dL 8.5-10.1 bilirubin, serum, total 1.60 mg/dL 0.00-1.00 cholesterol, serum 141 mg/dL 791-758 0498/08/14 triglyceride, serum, fasting 54 mg/dL 30-200 HDL [...] semiquantitative 6.0 5.0-8.5 Lab Report: VITAMIN D, 25-HYDROXY/84745 - Chemistry vitamin D 25-hydroxy, serum 18 ng/mL 30-100 Encounters Code Encounter Date Provider Facility CPT-72805 Level 3 Est. Patient 11:35:07 CDT Manish Castrejon [facility]-56826 Level 3 Est. Patient 17:22:36 [facility] Level [facility] Est. Patient 16:06:03 CDT Manish Castrejon [facility] CPT-77276 Level 3 Est. Patient 09:57:24 CDT Manish Castrejon [facility] CPT-30161 Level 3 Est. Patient 16:31:04 CDT Иван Mooney MD [facility] CPT-66223 Level 4 Est. Patient 12:02:18 CDT Hector Love MD [facility] CPT-60176 Level 3 Est. Patient 16:14:45 CDT Hector Love MD [facility] CPT-42744 Level 3 Est. Patient 16:53:35 CDT Иван Mooney MD [facility] CPT-33150 Level 3 Est. Patient 15:57:13 CDT Martha Montejo [facility] CPT-67805 Level 3 Est. Patient 14:30:47 COUNTY [employer] MANAGEMENT OFFICER Hector Love MD [facility] CPT-53626 Level 3 Est. Patient 14:50:45 CDT Hector Love MD [facility] CPT-35086 Level 3 Est. Patient 21:17:30 CDT Jen Crystal MD PhD [facility] CPT-95524 Level 3 Est. Patient 09:32:55 CDT Hector Love MD [facility] CPT-04544 Level 3 Est. Patient 15:11:08 COUNTY [employer] MANAGEMENT OFFICER Иван Mooney MD [facility] CPT-88891 Level 3 Est. Patient 16:38:53 COUNTY [employer] MANAGEMENT OFFICER Hector Love MD [facility] CPT-17213 Level 3 Est. Patient 15:46:05 CDT Hector Love MD [facility] CPT-38561 Level 3 Est. Patient 13:59:39 CDT Hector Love MD [facility] CPT-28790 Level 3 Est. Patient 14:44:46 COUNTY [employer] MANAGEMENT OFFICER Hector Love MD [facility] CPT-65954 Level 3 Est. Patient 17:12:27 CDT Hector Love MD [facility] CPT-58108 Level 3 Est. Patient 15:30:32 CDT Hector Love MD [facility] CPT-77964 Level 3 Est. Patient 14:24:52 CDT Иван Mooney MD [facility] CPT-31819 Level 3 Est. Patient 14:08:38 COUNTY [employer] MANAGEMENT OFFICER Hector Love MD [facility] Procedures Code Procedure Name Date Entry Date Standard Description CPT-87730 Venipuncture Draw Fee 16:18:26 CDT CPT-93032 TB Skin Test 09:57:25 CDT CPT-000 Give Appropriate Flu Vaccine 16:22:23 [employer] OFFICER CPT-69713 Free T4 - LAB USE ONLY 11:38:58 CDT CPT-05920 TSH - LAB USE ONLY 11:38:58 CDT CPT-07335 Venipuncture Draw Fee 11:38:58 CDT CPT-04118 Fluzone Quadrivalent Intramuscular Suspension 0.5 ML 16: 12:26 [employer]NAGEMENT OFFICER CPT-49192 Immunization Single Admin 16:12:26 [employer]NAG[employer] OFFICER CPT-J0561 Bicillin LA 1,200,000 u (PCN G Benzathine) 16:40:23 CDT CPT-12499 Abx/Therapy Injection 16:40:22 CDT CPT-J0561 Bicillin LA 1,200,000 u (PCN G Benzathine) 16:15:35 CDT CPT-56449 Immunization Single Admin 16:11:28 [employer] MANAGEMENT OFFICER CPT-89512 Fluzone Quadrivalent Intramuscular Suspension 0.5 ML 16: 11:28 [employer]NAGEMENT OFFICER CPT-00983 Administration single or combination vaccine inc oral 13 :57:23 CDT CPT-42948 Menactra Intramuscular Injectable 13:57:23 CDT CPT-88523 First Vx Component - Ix admin via ID IM or jet inj without physician counseling 16:42:17 [employer]NAGEMENT OFFICER CPT-01009 Fluzone preservative free (>=3 yrs.) 16:42:17 [employer]NAGEMENT OFFICER 06/03 CPT-81492 Venipuncture Draw Fee 16:29:01 CDT CPT-27535 Chest 2V Frontal and Lat 16:23:56 CDT CPT-42203 Administration single or combination vaccine inc oral 13 :39:17 COUNTY [employer]NAGEMENT OFFICER CPT-51272 Tdap 13:39:17 COUNTY [employer]NAGEMENT OFFICER
--- OUTSIDE RECORDS SUMMARY | 2017-11-06 02:05 | XMS REPORT | Clinical Summary ---
Author Author Admin, LAMBERT Organization [employer] Address Unknown Phone Unavailable Allergies, Adverse Reactions, [...] Acute sinusitis, unspecified Fever 780.60 07/19/2013 Resolved Hecotr Love MD Fever, unspecified Memory impairment 780.9 [...] viral, acute 008.8 Resolved Martha Montejo HOT SAW OPERATOR Intestinal infection due to other organism, [...] physical examination V70.0 Active Manish Castrejon HOT SAW OPERATOR Routine general medical examination at a health care facility Exposure to mononucleosis V01.79 Active Manish Castrejon HOT SAW OPERATOR Contact with or exposure to other [...] 1 tablet daily x 2 days PREDNISONE 25354924585 Active Pilo Flores DO Active AMOXICILLIN 500 MG TABS Take two tablets by mouth every 12 hours for 10 days AMOXICILLIN 52954193106 No Longer Active Иван Mooney MD Active VITAMIN C 500 MG CHEW TAB ASCORBIC ACID 40942755222 Active Иван Mooney MD Active PREDNISONE 20 MG TAB 2 po qd x 4 days PREDNISONE 39723137788 No Longer Active Hector Love MD Active HYDROCODONE-ACETAMINOPHEN 5-325 MG TABS 1/2 to 1 po q 4 hours prn pain 11/06 HYDROCODONE-ACETAMINOPHEN 72886343989 No Longer Active Hector Love MD Active FLONASE ALLERGY RELIEF 50 MCG/ACT NASAL SUSP 2 spray each nostril daily prn allergies FLUTICASONE PROPIONATE 62945981480 Active Hector Love MD Active AUGMENTIN 875-125 MG TAB 1 po BID x 10 days AMOXICILLIN-POT CLAVULANATE 97210815355 No Longer Active Hector Love MD Active FLONASE ALLERGY RELIEF 50 MCG/ACT NASAL SUSP 2 sprays each nostril daily PRN allergies FLUTICASONE PROPIONATE 27430808398 No Longer Active Hector Love MD Active AMOXICILLIN 500 MG CAPS 1 cap by mouth three times a day AMOXICILLIN 53741035053 No Longer Active Jillina Frazell HOT SAW OPERATOR Active KEFLEX 500 MG CAP 1 tab po tid CEPHALEXIN 23422650528 No Longer Active Jillina Frazell HOT SAW OPERATOR Active AMOXICILLIN 500 MG TABS 2 tabs twice a day for 10 days AMOXICILLIN 88075425978 No Longer Active Jillina Frazell HOT SAW OPERATOR Active ZYRTEC ALLERGY 10 MG CAPS 1 po qd CETIRIZINE HCL 84761431444 Active Hector Love MD Active PROGRAF 1 MG CAPS 2 tabs po bid TACROLIMUS 97536444470 Active Hector Love MD Active ZOFRAN 4 MG TABS 1 po q6hr PRN Nausea ONDANSETRON HCL 65136924246 No Longer Active Ramona Diggs LPN Active AMOXICILLIN 500 MG CAPS 2 po BID x 10 days AMOXICILLIN 11103767136 No Longer Active Martha Yohenrique GARCIA Active AUGMENTIN 875-125 MG TAB 1 tab by mouth twice daily with food AMOXICILLIN-POT CLAVULANATE 71116128313 No Longer Active Hector Love MD Active LEVAQUIN 500 MG TABS 1 pill by mouth daily LEVOFLOXACIN 39683230752 No Longer Active Jen Crystal MD PhD Active LISINOPRIL 5 MG TABS 1.5 tab qd LISINOPRIL 79391967657 Active Jen Crystal MD PhD Active KETOCONAZOLE 2 % CREA apply twice a day to rash KETOCONAZOLE 79433202863 No Longer Active Hector Love MD Active AUGMENTIN 875-125 MG TAB 1 tab by mouth twice daily with food AMOXICILLIN-POT CLAVULANATE 97607460693 No Longer Active Иван Mooney MD Active LOTRISONE 0.05-1 % CREAM Apply twice a day to affected area 07/19 CLOTRIMAZOLE-BETAMETHASONE 59632783852 No Longer Active Иван Mooney MD Active FEXOFENADINE HCL 180 MG TABS 1 Daily FEXOFENADINE HCL 69979422899 No Longer Active Hector Love MD Active PROGRAF 0.5 MG CAPS Take one by mouth daily with 1 mg TACROLIMUS 46132880078 No Longer Active Hector Love MD Active AMOXICILLIN 500 MG CAPS 2 po BID x 10 days AMOXICILLIN 52819888200 No Longer Active Hector Love MD Active RAPAMUNE 1 MG TABS 3 tabs in the am SIROLIMUS 56179561873 No Longer Active Hector Love MD Active AMOXICILLIN 500 MG CAPS 2 po BID x 10 days AMOXICILLIN 29779305352 No Longer Active Hector Love MD Active LORTAB 5 5-500 MG TABS 1/2 to 1 tablet by mouth every 4 hours as needed for pain HYDROCODONE-ACETAMINOPHEN 99103516004 No Longer Active Hector Love MD Active FLUTICASONE PROPIONATE 50 MCG/ACT SUSP INSTILL 2 SPRAYS IN EACH NOSTRIL Q D FLUTICASONE PROPIONATE 25938087536 No Longer Active Hector Love MD Active PROGRAF 1 MG CAPS 1 po bid TACROLIMUS 97533672696 No Longer Active Hector Love MD Active AMOXICILLIN 875 MG TABS 1 tab by mouth twice daily AMOXICILLIN 75630446488 No Longer Active Hector Love MD Active AMOXICILLIN 500 MG CAPS 2 po BID x 10 days AMOXICILLIN 70097307756 No Longer Active Hector Love MD Active AUGMENTIN 875-125 MG TAB 1 tab by mouth twice daily with food AMOXICILLIN-POT CLAVULANATE 19486530897 No Longer Active Hector Love MD Active AZITHROMYCIN 250 MG TABS 2 po qd x 1 day, then 1 po qd x 4 days AZITHROMYCIN 86348406157 No Longer Active Hector Love MD Active CETIRIZINE HCL 10 MG TABS 1 PO Q D CETIRIZINE HCL 30877474514 No Longer Active Waleska Levy Active PROGRAF 1 MG CAPS 1 po bid PROGRAF 1 MG CAPS 440324 TACROLIMUS Inactive FLUTICASONE PROPIONATE 50 MCG/ACT SUSP INSTILL 2 SPRAYS IN EACH NOSTRIL Q D FLUTICASONE PROPIONATE 50 MCG/ACT SUSP 3641053 FLUTICASONE PROPIONATE Inactive LORTAB 5 5-500 MG TABS 1/2 to 1 tablet by mouth every 4 hours as needed for pain LORTAB 5 5-500 MG TABS HYDROCODONE- ACETAMINOPHEN Inactive RAPAMUNE 1 MG TABS 3 tabs in the am RAPAMUNE 1 MG TABS 894542 SIROLIMUS Inactive PROGRAF 0.5 MG CAPS Take one by mouth daily with 1 mg PROGRAF 0.5 MG CAPS 170097 TACROLIMUS Inactive FEXOFENADINE HCL 180 MG TABS 1 Daily FEXOFENADINE HCL 180 MG TABS 208889 FEXOFENADINE HCL Inactive LOTRISONE 0.05-1 % CREAM Apply twice a day to affected area 07/19 LOTRISONE 0.05-1 % CREAM 990582 CLOTRIMAZOLE-BETAMETHASONE Inactive KETOCONAZOLE 2 % CREA apply twice a day to rash KETOCONAZOLE 2 % CREA 956837 KETOCONAZOLE Inactive AUGMENTIN 875-125 MG TAB 1 tab by mouth twice daily with food AUGMENTIN 875-125 MG TAB 260474 AMOXICILLIN-POT CLAVULANATE Inactive ZOFRAN 4 MG TABS 1 po q6hr PRN Nausea ZOFRAN 4 MG TABS 488861 ONDANSETRON HCL Inactive AMOXICILLIN 500 MG TABS 2 tabs twice a day for 10 days AMOXICILLIN 500 MG TABS 387242 AMOXICILLIN Inactive FLONASE ALLERGY RELIEF 50 MCG/ACT NASAL SUSP 2 sprays each nostril daily PRN allergies FLONASE ALLERGY RELIEF 50 MCG/ACT NASAL SUSP 7468700 FLUTICASONE PROPIONATE Inactive HYDROCODONE-ACETAMINOPHEN 5-325 MG TABS 1/2 to 1 po q 4 hours prn pain 11/06 HYDROCODONE-ACETAMINOPHEN 5-325 MG TABS 971145 HYDROCODONE- ACETAMINOPHEN Inactive AMOXICILLIN 500 MG CAPS 2 po BID x 10 days AMOXICILLIN 500 MG CAPS 679983 AMOXICILLIN Inactive AMOXICILLIN 875 MG TABS 1 tab by mouth twice daily AMOXICILLIN 875 MG TABS 634086 AMOXICILLIN Inactive AMOXICILLIN 500 MG CAPS 2 po BID x 10 days AMOXICILLIN 500 MG CAPS 501148 AMOXICILLIN Inactive AMOXICILLIN 500 MG CAPS 2 po BID x 10 days AMOXICILLIN 500 MG CAPS 401345 AMOXICILLIN Inactive AUGMENTIN 875-125 MG TAB 1 tab by mouth twice daily with food AUGMENTIN 875-125 MG TAB 496516 AMOXICILLIN-POT CLAVULANATE Inactive LEVAQUIN 500 MG TABS 1 pill by mouth daily LEVAQUIN 500 MG TABS 716337 LEVOFLOXACIN Inactive AMOXICILLIN 500 MG CAPS 2 po BID x 10 days AMOXICILLIN 500 MG CAPS 058858 AMOXICILLIN Inactive AMOXICILLIN 500 MG CAPS 1 cap by mouth three times a day AMOXICILLIN 500 MG CAPS 480410 AMOXICILLIN Inactive AUGMENTIN 875-125 MG TAB 1 po BID x 10 days AUGMENTIN 875-125 MG TAB 821446 AMOXICILLIN-POT CLAVULANATE Inactive PREDNISONE 20 MG TAB 2 po qd x 4 days PREDNISONE 20 MG TAB 143471 PREDNISONE Inactive AMOXICILLIN 500 MG TABS Take two tablets by mouth every 12 hours for 10 days AMOXICILLIN 500 MG TABS 078060 AMOXICILLIN Inactive Advance Directives Directive Description Start Date PERMISSION TO SHARE Immunizations Vaccine Administration Date Value Standard Description Seasonal influenza vaccine, injectable, preservative free, for > 3 years old ( Afluria, FluLaval, Fluzone, Fluvirin, Fluarix, Agriflu(>=18 yo)) Fluzone preservative free (>=3 yrs.) [YDF304] Influenza, seasonal, injectable, preservative free Adacel (Tetanus, reduced Diphtheria, and acellular Pertussis Immunization) Adacel [URA521] tetanus toxoid, reduced diphtheria toxoid, and acellular [...] Panel - Chemistry sodium, serum 137 mmol/L 221-188 6484/08/14 carbon dioxide, venous blood 29.7 mmol/L 21.0-32.0 potassium, serum 4.3 mmol/L 3.5-5.2 chloride, serum 99 mmol/L 98-107 blood glucose 123 mg/dL 65-110 urea nitrogen, blood 12 mg/dL 7-18 creatinine, serum 0.84 mg/dL 0.60-1.30 alanine aminotransferase (SGPT), serum 48 U/L 12-78 aspartate aminotransferase (SGOT), serum 26 U/L 15-37 calcium, serum 9.4 mg/dL 8.5-10.1 bilirubin, serum, total 1.60 mg/dL 0.00-1.00 cholesterol, serum 141 mg/dL 136-579 0356/08/14 triglyceride, serum, fasting 54 mg/dL 30-200 HDL [...] semiquantitative 6.0 5.0-8.5 Lab Report: VITAMIN D, 25-HYDROXY/[id number] - Chemistry vitamin D 25-hydroxy, serum 18 ng/mL 30-100 Encounters Code Encounter Date Provider Facility CPT-85464 Level 3 Est. [facility]22[facility]. Patient 16:06:03 CDT Manish Castrejon [facility] [place]-56958 Level 3 Est. Patient 09:57:24 CDT Manish Castrejon [facility] CPT-07094 Level 3 Est. Patient 16:31:04 CDT Иван Mooney MD [facility] CPT-88049 Level 4 Est. Patient 12:02:18 CDT Hector Love MD [facility] CPT-34158 Level 3 Est. Patient 16:14:45 CDT Hector Love MD [facility] CPT-44375 Level 3 Est. Patient 16:53:35 CDT Иван Mooney MD [facility] CPT-55533 Level 3 Est. Patient 15:57:13 CDT Martha Montejo [facility] CPT-05708 Level 3 Est. Patient 14:30:47 STORE LEAD Hector Love MD [facility] CPT-04671 Level 3 Est. Patient 14:50:45 CDT Hector Love MD [facility] CPT-37794 Level 3 Est. Patient 21:17:30 CDT Jen Crystal MD PhD [facility] CPT-49155 Level 3 Est. Patient 09:32:55 CDT Hector Love MD [facility] CPT-55771 Level 3 Est. Patient 15:11:08 STORE LEAD Иван Mooney MD [facility] CPT-10257 Level 3 Est. Patient 16:38:53 STORE LEAD Hector Love MD [facility] CPT-82058 Level 3 Est. Patient 15:46:05 CDT Hector Love MD [facility] CPT-62816 Level 3 Est. Patient 13:59:39 CDT Hector Love MD [facility] CPT-69376 Level 3 Est. Patient 14:44:46 STORE LEAD Hector Love MD [facility] CPT-31704 Level 3 Est. Patient 17:12:27 CDT Hector Love MD [facility] CPT-83235 Level 3 Est. Patient 15:30:32 CDT Hector Love MD [facility] CPT-18094 Level 3 Est. Patient 14:24:52 CDT Иван Mooney MD [facility] CPT-66091 Level 3 Est. Patient 14:08:38 STORE LEAD Hector Love MD [facility] Procedures Code Procedure Name Date Entry Date Standard Description CPT-64566 Venipuncture Draw Fee 16:18:26 CDT CPT-72553 TB Skin Test 09:57:25 CDT CPT-000 Give Appropriate Flu Vaccine 16:22:23 STORE LEAD CPT-51225 Free T4 - LAB USE ONLY 11:38:58 CDT CPT-95884 TSH - LAB USE ONLY 11:38:58 CDT CPT-39981 Venipuncture Draw Fee 11:38:58 CDT CPT-32677 Fluzone Quadrivalent Intramuscular Suspension 0.5 ML 16: 12:26 STORE LEAD CPT-05308 Immunization Single Admin 16:12:26 STORE LEAD CPT-J0561 Bicillin LA 1,200,000 u (PCN G Benzathine) 16:40:23 CDT CPT-77227 Abx/Therapy Injection 16:40:22 CDT CPT-J0561 Bicillin LA 1,200,000 u (PCN G Benzathine) 16:15:35 CDT CPT-93270 Immunization Single Admin 16:11:28 STORE LEAD CPT-30261 Fluzone Quadrivalent Intramuscular Suspension 0.5 ML 16: 11:28 STORE LEAD CPT-74693 Administration single or combination vaccine inc oral 13 :57:23 CDT CPT-16989 Menactra Intramuscular Injectable 13:57:23 CDT CPT-79851 First Vx Component - Ix admin via ID IM or jet inj without physician counseling 16:42:17 STORE LEAD CPT-39859 Fluzone preservative free (>=3 yrs.) 16:42:17 STORE LEAD 06/03 CPT-92455 Venipuncture Draw Fee 16:29:01 CDT CPT-37132 Chest 2V Frontal and Lat 16:23:56 CDT CPT-16911 Administration single or combination vaccine inc oral 13 :39:17 STORE LEAD CPT-59541 Tdap 13:39:17 STORE LEAD
--- OUTSIDE RECORDS SUMMARY | 2017-11-06 02:06 | XMS REPORT | Clinical Summary ---
Author Author Admin, QIE Organization [facility] Address Unknown Phone Unavailable Allergies, Adverse Reactions, [...] Gastroenteritis, viral, acute 008.8 Resolved Martha Montejo HOTBED OPERATOR Intestinal infection due to other organism, [...] employment physical examination V70.0 Active Manish Castrejon HOTBED OPERATOR Routine general medical examination at a health care facility Exposure to mononucleosis V01.79 Active Manish Castrejon HOTBED OPERATOR Contact with or exposure to other viral diseases BRONCHITIS, ACUTE ICD-466.0 Inactive Hector Love MD KNEE SPRAIN, LEFT ICD-844.9 Inactive Hector Love MD FH DIABETES ICD-V18.0 Inactive Hector Love MD U R I ICD-465.9 Inactive Hector Love MD COSTOCHRONDRITIS ICD-733.6 Inactive Hector Love MD COUGH ICD-786.2 Inactive Hector Love MD Tinea corporis ICD-110.5 Inactive Hector Love MD Sinusitis ICD-461.9 Nils Love MD Fever ICD-780.60 Nils Love MD SINUSITIS, ACUTE ICD-461.9 Inactive Hector Love MD FEVER UNSPECIFIED ICD-780.60 Inactive Hector Love MD NEED FOR PROPHYLACTIC VACCINATION WITH STREPTOCOCCUS PNEUMONIAE (PNEUMOCOCCUS) AND INFLUENZA ICD-V06.6 Nils Love MD Sinusitis, frontal, acute ICD-461.1 Inactive Hector Love MD Pharyngitis ICD-462 Inactive Hector Love MD Ingrown toenail ICD-703.0 Inactive Hector Love MD Ingrown toenail, right ICD-703.0 Nils Love MD Gastroenteritis, viral, acute ICD-008.8 Inactive Martha Montejo APRN Bronchitis ICD-490 Inactive Hector Love MD 2014 Medication List Medication Instructions Start Date Stop Date Generic Name NDC Status Provider Patient Instruction AMOXICILLIN 500 MG TABS Take two tablets by mouth every 12 hours for 10 days AMOXICILLIN 37874132204 No Longer Active Иван Mooney MD Active VITAMIN C 500 MG CHEW TAB ASCORBIC ACID 12196170159 Active Иван Mooney MD Active PREDNISONE 20 MG TAB 2 po qd x 4 days PREDNISONE 24456056186 No Longer Active Hector Love MD Active HYDROCODONE-ACETAMINOPHEN 5-325 MG TABS 1/2 to 1 po q 4 hours prn pain 11/06 HYDROCODONE-ACETAMINOPHEN 92129844142 No Longer Active Hector Love MD Active FLONASE ALLERGY RELIEF 50 MCG/ACT NASAL SUSP 2 spray each nostril daily prn allergies FLUTICASONE PROPIONATE 53772363429 Active Hector Love MD Active AUGMENTIN 875-125 MG TAB 1 po BID x 10 days AMOXICILLIN-POT CLAVULANATE 07420573370 No Longer Active Hector Love MD Active FLONASE ALLERGY RELIEF 50 MCG/ACT NASAL SUSP 2 sprays each nostril daily PRN allergies FLUTICASONE PROPIONATE 06472479044 No Longer Active Hector Love MD Active AMOXICILLIN 500 MG CAPS 1 cap by mouth three times a day AMOXICILLIN 60204867176 No Longer Active Jillina Frazell HOTBED OPERATOR Active KEFLEX 500 MG CAP 1 tab po tid CEPHALEXIN 35392376139 No Longer Active Jillina Frazell HOTBED OPERATOR Active AMOXICILLIN 500 MG TABS 2 tabs twice a day for 10 days AMOXICILLIN 54221729913 No Longer Active Jillina Frazell HOTBED OPERATOR Active ZYRTEC ALLERGY 10 MG CAPS 1 po qd CETIRIZINE HCL 10866247584 Active Hector Love MD Active PROGRAF 1 MG CAPS 2 tabs po bid TACROLIMUS 23532784990 Active Hector Love MD Active ZOFRAN 4 MG TABS 1 po q6hr PRN Nausea ONDANSETRON HCL 03803515033 No Longer Active Ramona Diggs LPN Active AMOXICILLIN 500 MG CAPS 2 po BID x 10 days AMOXICILLIN 92478296992 No Longer Active Martha Montejo HOTBED OPERATOR Active AUGMENTIN 875-125 MG TAB 1 tab by mouth twice daily with food AMOXICILLIN-POT CLAVULANATE 19091937437 No Longer Active Hector Love MD Active LEVAQUIN 500 MG TABS 1 pill by mouth daily LEVOFLOXACIN 25965332818 No Longer Active Jen Crystal MD PhD Active LISINOPRIL 5 MG TABS 1.5 tab qd LISINOPRIL 42894562364 Active Jen Crystal MD PhD Active KETOCONAZOLE 2 % CREA apply twice a day to rash KETOCONAZOLE 94038505904 No Longer Active Hector Love MD Active AUGMENTIN 875-125 MG TAB 1 tab by mouth twice daily with food AMOXICILLIN-POT CLAVULANATE 80725236120 No Longer Active Иван Mooney MD Active LOTRISONE 0.05-1 % CREAM Apply twice a day to affected area 07/19 CLOTRIMAZOLE-BETAMETHASONE 27165430458 No Longer Active Иван Mooney MD Active FEXOFENADINE HCL 180 MG TABS 1 Daily FEXOFENADINE HCL 31283815992 No Longer Active Hector Love MD Active PROGRAF 0.5 MG CAPS Take one by mouth daily with 1 mg TACROLIMUS 89450324408 No Longer Active Hector Love MD Active AMOXICILLIN 500 MG CAPS 2 po BID x 10 days AMOXICILLIN 01925392942 No Longer Active Hector Love MD Active RAPAMUNE 1 MG TABS 3 tabs in the am SIROLIMUS 56901600484 No Longer Active Hector Love MD Active AMOXICILLIN 500 MG CAPS 2 po BID x 10 days AMOXICILLIN 65400534816 No Longer Active Hector Love MD Active LORTAB 5 5-500 MG TABS 1/2 to 1 tablet by mouth every 4 hours as needed for pain HYDROCODONE-ACETAMINOPHEN 39757153068 No Longer Active Hector Love MD Active FLUTICASONE PROPIONATE 50 MCG/ACT SUSP INSTILL 2 SPRAYS IN EACH NOSTRIL Q D FLUTICASONE PROPIONATE 16387532955 No Longer Active Hector Love MD Active PROGRAF 1 MG CAPS 1 po bid TACROLIMUS 83224726402 No Longer Active Hector Love MD Active AMOXICILLIN 875 MG TABS 1 tab by mouth twice daily AMOXICILLIN 60385625291 No Longer Active Hector Love MD Active AMOXICILLIN 500 MG CAPS 2 po BID x 10 days AMOXICILLIN 02358439550 No Longer Active Hector Love MD Active AUGMENTIN 875-125 MG TAB 1 tab by mouth twice daily with food AMOXICILLIN-POT CLAVULANATE 16007291260 No Longer Active Hector Love MD Active AZITHROMYCIN 250 MG TABS 2 po qd x 1 day, then 1 po qd x 4 days AZITHROMYCIN 39092758182 No Longer Active Hector Love MD Active CETIRIZINE HCL 10 MG TABS 1 PO Q D CETIRIZINE HCL 43748377661 No Longer Active Waleska Alna Active PROGRAF 1 MG CAPS 1 po bid PROGRAF 1 MG CAPS 766387 TACROLIMUS Inactive FLUTICASONE PROPIONATE 50 MCG/ACT SUSP INSTILL 2 SPRAYS IN EACH NOSTRIL Q D FLUTICASONE PROPIONATE 50 MCG/ACT SUSP 3747239 FLUTICASONE PROPIONATE Inactive LORTAB 5 5-500 MG TABS 1/2 to 1 tablet by mouth every 4 hours as needed for pain LORTAB 5 5-500 MG TABS HYDROCODONE- ACETAMINOPHEN Inactive RAPAMUNE 1 MG TABS 3 tabs in the am RAPAMUNE 1 MG TABS 212990 SIROLIMUS Inactive PROGRAF 0.5 MG CAPS Take one by mouth daily with 1 mg PROGRAF 0.5 MG CAPS 207719 TACROLIMUS Inactive FEXOFENADINE HCL 180 MG TABS 1 Daily FEXOFENADINE HCL 180 MG TABS 984935 FEXOFENADINE HCL Inactive LOTRISONE 0.05-1 % CREAM Apply twice a day to affected area 07/19 LOTRISONE 0.05-1 % CREAM 307103 CLOTRIMAZOLE-BETAMETHASONE Inactive KETOCONAZOLE 2 % CREA apply twice a day to rash KETOCONAZOLE 2 % CREA 652645 KETOCONAZOLE Inactive AUGMENTIN 875-125 MG TAB 1 tab by mouth twice daily with food AUGMENTIN 875-125 MG TAB 883174 AMOXICILLIN-POT CLAVULANATE Inactive ZOFRAN 4 MG TABS 1 po q6hr PRN Nausea ZOFRAN 4 MG TABS 537741 ONDANSETRON HCL Inactive AMOXICILLIN 500 MG TABS 2 tabs twice a day for 10 days AMOXICILLIN 500 MG TABS 190846 AMOXICILLIN Inactive FLONASE ALLERGY RELIEF 50 MCG/ACT NASAL SUSP 2 sprays each nostril daily PRN allergies FLONASE ALLERGY RELIEF 50 MCG/ACT NASAL SUSP 3823824 FLUTICASONE PROPIONATE Inactive HYDROCODONE-ACETAMINOPHEN 5-325 MG TABS 1/2 to 1 po q 4 hours prn pain 11/06 HYDROCODONE-ACETAMINOPHEN 5-325 MG TABS 230401 HYDROCODONE- ACETAMINOPHEN Inactive AMOXICILLIN 500 MG CAPS 2 po BID x 10 days AMOXICILLIN 500 MG CAPS 575996 AMOXICILLIN Inactive AMOXICILLIN 875 MG TABS 1 tab by mouth twice daily AMOXICILLIN 875 MG TABS 730362 AMOXICILLIN Inactive AMOXICILLIN 500 MG CAPS 2 po BID x 10 days AMOXICILLIN 500 MG CAPS 499869 AMOXICILLIN Inactive AMOXICILLIN 500 MG CAPS 2 po BID x 10 days AMOXICILLIN 500 MG CAPS 360526 AMOXICILLIN Inactive AUGMENTIN 875-125 MG TAB 1 tab by mouth twice daily with food AUGMENTIN 875-125 MG TAB 654400 AMOXICILLIN-POT CLAVULANATE Inactive LEVAQUIN 500 MG TABS 1 pill by mouth daily LEVAQUIN 500 MG TABS 370732 LEVOFLOXACIN Inactive AMOXICILLIN 500 MG CAPS 2 po BID x 10 days AMOXICILLIN 500 MG CAPS 588696 AMOXICILLIN Inactive AMOXICILLIN 500 MG CAPS 1 cap by mouth three times a day AMOXICILLIN 500 MG CAPS 736880 AMOXICILLIN Inactive AUGMENTIN 875-125 MG TAB 1 po BID x 10 days AUGMENTIN 875-125 MG TAB 154931 AMOXICILLIN-POT CLAVULANATE Inactive PREDNISONE 20 MG TAB 2 po qd x 4 days PREDNISONE 20 MG TAB 999238 PREDNISONE Inactive AMOXICILLIN 500 MG TABS Take two tablets by mouth every 12 hours for 10 days AMOXICILLIN 500 MG TABS 957486 AMOXICILLIN Inactive Advance Directives Directive Description Start Date PERMISSION TO SHARE Immunizations Vaccine Administration Date Value Standard Description Seasonal influenza vaccine, injectable, preservative free, for > 3 years old ( Afluria, FluLaval, Fluzone, Fluvirin, Fluarix, Agriflu(>=18 yo)) Fluzone preservative free (>=3 yrs.) [GCQ392] Influenza, seasonal, injectable, preservative free Adacel (Tetanus, reduced Diphtheria, and acellular Pertussis Immunization) Adacel [AUF673] tetanus toxoid, reduced diphtheria toxoid, and acellular [...] Panel - Chemistry sodium, serum 137 mmol/L 197-452 5073/08/14 carbon dioxide, venous blood 29.7 mmol/L 21.0-32.0 potassium, serum 4.3 mmol/L 3.5-5.2 chloride, serum 99 mmol/L 98-107 blood glucose 123 mg/dL 65-110 urea nitrogen, blood 12 mg/dL 7-18 creatinine, serum 0.84 mg/dL 0.60-1.30 alanine aminotransferase (SGPT), serum 48 U/L 12-78 aspartate aminotransferase (SGOT), serum 26 U/L 15-37 calcium, serum 9.4 mg/dL 8.5-10.1 bilirubin, serum, total 1.60 mg/dL 0.00-1.00 cholesterol, serum 141 mg/dL 848-376 5052/08/14 triglyceride, serum, fasting 54 mg/dL 30-200 HDL [...] semiquantitative 6.0 5.0-8.5 Lab Report: VITAMIN D, 25-HYDROXY/78200 - Chemistry vitamin D 25-hydroxy, serum 18 ng/mL 30-100 Encounters Code Encounter Date Provider Facility CPT-05790 Level 3 Est. Patient 16:06:03 CDT Manish Castrejon [facility] [place] CPT-67605 Level 3 Est. Patient 09:57:24 CDT Manish Castrejon [facility] [place] CPT-38563 Level 3 Est. Patient 16:31:04 CDT Иван Mooney MD [facility] CPT-77565 Level 4 Est. Patient 12:02:18 CDT Hector Love MD [facility] CPT-43029 Level 3 Est. Patient 16:14:45 CDT Hector Love MD [facility] CPT-01843 Level 3 Est. Patient 16:53:35 CDT Иван Mooney MD [facility] CPT-78694 Level 3 Est. Patient 15:57:13 CDT Martha Montejo [facility] CPT-18467 Level 3 Est. Patient 14:30:47 STRATEGY ANALYST Hector Love MD [facility] CPT-55674 Level 3 Est. Patient 14:50:45 CDT Hector Love MD [facility] CPT-39391 Level 3 Est. Patient 21:17:30 CDT Jen Crystal MD PhD [facility] CPT-92327 Level 3 Est. Patient 09:32:55 CDT Hector Love MD [facility] CPT-22342 Level 3 Est. Patient 15:11:08 STRATEGY ANALYST Иван Mooney MD [facility] CPT-15300 Level 3 Est. Patient 16:38:53 STRATEGY ANALYST Hector Love MD [facility] CPT-22316 Level 3 Est. Patient 15:46:05 CDT Hector Love MD [facility] CPT-49279 Level 3 Est. Patient 13:59:39 CDT Hector Love MD [facility] CPT-27450 Level 3 Est. Patient 14:44:46 STRATEGY ANALYST Hector Love MD [facility] CPT-92091 Level 3 Est. Patient 17:12:27 CDT Hector Love MD [facility] CPT-34588 Level 3 Est. Patient 15:30:32 CDT Hector Love MD [facility] CPT-86102 Level 3 Est. Patient 14:24:52 CDT Иван Mooney MD [facility] CPT-13221 Level 3 Est. Patient 14:08:38 STRATEGY ANALYST Hector Love MD [facility] Procedures Code Procedure Name Date Entry Date Standard Description CPT-26593 Venipuncture Draw Fee 16:18:26 CDT CPT-61435 TB Skin Test 09:57:25 CDT CPT-000 Give Appropriate Flu Vaccine 16:22:23 STRATEGY ANALYST CPT-82759 Free T4 - LAB USE ONLY 11:38:58 CDT CPT-90088 TSH - LAB USE ONLY 11:38:58 CDT CPT-32394 Venipuncture Draw Fee 11:38:58 CDT CPT-70267 Fluzone Quadrivalent Intramuscular Suspension 0.5 ML 16: 12:26 STRATEGY ANALYST CPT-43835 Immunization Single Admin 16:12:26 STRATEGY ANALYST CPT-J0561 Bicillin LA 1,200,000 u (PCN G Benzathine) 16:40:23 CDT CPT-72519 Abx/Therapy Injection 16:40:22 CDT CPT-J0561 Bicillin LA 1,200,000 u (PCN G Benzathine) 16:15:35 CDT CPT-98103 Immunization Single Admin 16:11:28 STRATEGY ANALYST CPT-35886 Fluzone Quadrivalent Intramuscular Suspension 0.5 ML 16: 11:28 STRATEGY ANALYST CPT-13046 Administration single or combination vaccine inc oral 13 :57:23 CDT CPT-93644 Menactra Intramuscular Injectable 13:57:23 CDT CPT-62393 First Vx Component - Ix admin via ID IM or jet inj without physician counseling 16:42:17 STRATEGY ANALYST CPT-71097 Fluzone preservative free (>=3 yrs.) 16:42:17 STRATEGY ANALYST 06/03 CPT-65498 Venipuncture Draw Fee 16:29:01 CDT CPT-25003 Chest 2V Frontal and Lat 16:23:56 CDT CPT-61288 Administration single or combination vaccine inc oral 13 :39:17 STRATEGY ANALYST CPT-70552 Tdap 13:39:17 STRATEGY ANALYST
--- OUTSIDE RECORDS SUMMARY | 2017-11-06 02:06 | XMS REPORT | Clinical Summary ---
Author Author Admin, LAMBERT Organization [facility] Address Unknown Phone Unavailable Allergies, Adverse [...] MG CAPS 1 po qd CETIRIZINE HCL 17289331485 Active Hector Love MD Active PROGRAF 1 MG CAPS 2 tabs po bid TACROLIMUS 64456561437 Active Hector Love MD Active AMOXICILLIN 500 MG TABS 2 tabs twice a day for 10 days AMOXICILLIN 34597673850 Active Иван Mooney MD Active ZOFRAN 4 MG TABS 1 po q6hr PRN Nausea ONDANSETRON HCL 31076286018 No Longer Active Ramona Diggs LPN Active AMOXICILLIN 500 MG CAPS 2 po BID x 10 days AMOXICILLIN 28141298317 No Longer Active Martha Montejo APRN Active AUGMENTIN 875-125 MG TAB 1 tab by mouth twice daily with food AMOXICILLIN-POT CLAVULANATE 29636068465 No Longer Active Hector Love MD Active FLONASE 50 MCG/ACT SUSP 2 puffs in each nostril daily PRN Allergies FLUTICASONE PROPIONATE 98960640219 Active Hector Love MD Active LEVAQUIN 500 MG TABS 1 pill by mouth daily LEVOFLOXACIN 79142144634 No Longer Active Jen Crystal MD PhD Active LISINOPRIL 5 MG TABS 1.5 tab qd LISINOPRIL 04322313732 Active Jen Crystal MD PhD Active KETOCONAZOLE 2 % CREA apply twice a day to rash KETOCONAZOLE 00115766419 No Longer Active Hector Love MD Active AUGMENTIN 875-125 MG TAB 1 tab by mouth twice daily with food AMOXICILLIN-POT CLAVULANATE 20057617019 No Longer Active Иван Mooney MD Active LOTRISONE 0.05-1 % CREAM Apply twice a day to affected area 07/19 CLOTRIMAZOLE-BETAMETHASONE 39762148650 No Longer Active Иван Mooney MD Active FEXOFENADINE HCL 180 MG TABS 1 Daily FEXOFENADINE HCL 11426177618 No Longer Active Hector Love MD Active PROGRAF 0.5 MG CAPS Take one by mouth daily with 1 mg TACROLIMUS 99676910746 No Longer Active Hector Love MD Active AMOXICILLIN 500 MG CAPS 2 po BID x 10 days AMOXICILLIN 32949072379 No Longer Active Hector Love MD Active RAPAMUNE 1 MG TABS 3 tabs in the am SIROLIMUS 25574650517 No Longer Active Hector Love MD Active AMOXICILLIN 500 MG CAPS 2 po BID x 10 days AMOXICILLIN 16819602131 No Longer Active Hector Love MD Active LORTAB 5 5-500 MG TABS 1/2 to 1 tablet by mouth every 4 hours as needed for pain HYDROCODONE-ACETAMINOPHEN 64625804936 No Longer Active Hector Love MD Active FLUTICASONE PROPIONATE 50 MCG/ACT SUSP INSTILL 2 SPRAYS IN EACH NOSTRIL Q D FLUTICASONE PROPIONATE 33015481439 No Longer Active Hector Love MD Active PROGRAF 1 MG CAPS 1 po bid TACROLIMUS 57032610213 No Longer Active Hector Love MD Active AMOXICILLIN 875 MG TABS 1 tab by mouth twice daily AMOXICILLIN 03980901147 No Longer Active Hector Love MD Active AMOXICILLIN 500 MG CAPS 2 po BID x 10 days AMOXICILLIN 59165661984 No Longer Active Hector Love MD Active AUGMENTIN 875-125 MG TAB 1 tab by mouth twice daily with food AMOXICILLIN-POT CLAVULANATE 59336894751 No Longer Active Hector Love MD Active AZITHROMYCIN 250 MG TABS 2 po qd x 1 day, then 1 po qd x 4 days AZITHROMYCIN 20894424127 No Longer Active Hector Love MD Active CETIRIZINE HCL 10 MG TABS 1 PO Q D CETIRIZINE HCL 64259295356 No Longer Active Waleska [place] Active PROGRAF 1 MG CAPS 1 po bid PROGRAF 1 MG CAPS 407582 TACROLIMUS Inactive FLUTICASONE PROPIONATE 50 MCG/ACT SUSP INSTILL 2 SPRAYS IN EACH NOSTRIL Q D FLUTICASONE PROPIONATE 50 MCG/ACT SUSP 545844 FLUTICASONE PROPIONATE Inactive LORTAB 5 5-500 MG TABS 1/2 to 1 tablet by mouth every 4 hours as needed for pain LORTAB 5 5-500 MG TABS HYDROCODONE- ACETAMINOPHEN Inactive RAPAMUNE 1 MG TABS 3 tabs in the am RAPAMUNE 1 MG TABS 701687 SIROLIMUS Inactive PROGRAF 0.5 MG CAPS Take one by mouth daily with 1 mg PROGRAF 0.5 MG CAPS 341458 TACROLIMUS Inactive FEXOFENADINE HCL 180 MG TABS 1 Daily FEXOFENADINE HCL 180 MG TABS 626759 FEXOFENADINE HCL Inactive LOTRISONE 0.05-1 % CREAM Apply twice a day to affected area 07/19 LOTRISONE 0.05-1 % CREAM 574113 CLOTRIMAZOLE-BETAMETHASONE Inactive KETOCONAZOLE 2 % CREA apply twice a day to rash KETOCONAZOLE 2 % CREA 792350 KETOCONAZOLE Inactive AUGMENTIN 875-125 MG TAB 1 tab by mouth twice daily with food AUGMENTIN 875-125 MG TAB 744492 AMOXICILLIN-POT CLAVULANATE Inactive ZOFRAN 4 MG TABS 1 po q6hr PRN Nausea ZOFRAN 4 MG TABS 360327 ONDANSETRON HCL Inactive AMOXICILLIN 500 MG CAPS 2 po BID x 10 days AMOXICILLIN 500 MG CAPS 106356 AMOXICILLIN Inactive AMOXICILLIN 875 MG TABS 1 tab by mouth twice daily AMOXICILLIN 875 MG TABS 615157 AMOXICILLIN Inactive AMOXICILLIN 500 MG CAPS 2 po BID x 10 days AMOXICILLIN 500 MG CAPS 393378 AMOXICILLIN Inactive AMOXICILLIN 500 MG CAPS 2 po BID x 10 days AMOXICILLIN 500 MG CAPS 704530 AMOXICILLIN Inactive AUGMENTIN 875-125 MG TAB 1 tab by mouth twice daily with food AUGMENTIN 875-125 MG TAB 468266 AMOXICILLIN-POT CLAVULANATE Inactive LEVAQUIN 500 MG TABS 1 pill by mouth daily LEVAQUIN 500 MG TABS 556138 LEVOFLOXACIN Inactive AMOXICILLIN 500 MG CAPS 2 po BID x 10 days AMOXICILLIN 500 MG CAPS 687939 AMOXICILLIN Inactive Advance Directives Directive Description Start Date PERMISSION TO SHARE Immunizations Vaccine Administration Date Value Standard Description Seasonal influenza vaccine, injectable, preservative free, for > 3 years old ( Afluria, FluLaval, Fluzone, Fluvirin, Fluarix, Agriflu(>=18 yo)) Fluzone preservative free (>=3 yrs.) [CTA905] Influenza, seasonal, injectable, preservative free Adacel (Tetanus, reduced Diphtheria, and acellular Pertussis Immunization) Adacel [YZL085] tetanus toxoid, reduced diphtheria toxoid, and acellular [...] 58 U/L alkaline phosphatase, serum 73 U/L potassium, serum 4.2 mmol/L sodium, serum 139 mmol/L alkaline phosphatase, serum 68 U/L alanine aminotransferase (SGPT), serum 47 U/L aspartate aminotransferase (SGOT), serum 27 U/L creatinine, serum 0.90 mg/dL blood glucose 100 mg/dL Chart Maintenance: Outside labs entered on flowsheet - Hematology platelet count 223 10*3/mm3 hemoglobin, blood 14.8 g/dL leukocyte count, blood 7.9 10*3/mm3 leukocyte count, blood 8.6 10*3/mm3 hemoglobin, blood 15.0 g/dL platelet count 244 10*3/mm3 Lab Report: RapidStrep Rflx/Cx - Lab Microbial identification kit, rapid strep method Negative Negative Encounters Code Encounter Date Provider Facility CPT-95306 Level 3 Est. Patient 16:14:45 CDT Hector Love MD [facility] CPT-35255 Level 3 Est. Patient 16:53:35 CDT Иван Mooney MD [facility] CPT-00382 Level 3 Est. Patient 15:57:13 CDT Martha Montejo APRN [facility] CPT-85237 Level 3 Est. Patient 14:30:47 EXTENSION SERVICE SPECIALIST IN CHARGE Hector Love MD [facility] CPT-00740 Level 3 Est. Patient 14:50:45 CDT Hector Love MD [facility] CPT-63938 Level 3 Est. Patient 21:17:30 CDT Jen Crystal MD PhD [facility] CPT-88111 Level 3 Est. Patient 09:32:55 CDT Hector Love MD [facility] CPT-21063 Level 3 Est. Patient 15:11:08 EXTENSION SERVICE SPECIALIST IN CHARGE Иван Mooney MD [facility] CPT-21446 Level 3 Est. Patient 16:38:53 EXTENSION SERVICE SPECIALIST IN CHARGE Hector Love MD [facility] CPT-38448 Level 3 Est. Patient 15:46:05 CDT Hector Love MD [facility] CPT-39419 Level 3 Est. Patient 13:59:39 CDT Hector Love MD [facility] CPT-28331 Level 3 Est. Patient 14:44:46 EXTENSION SERVICE SPECIALIST IN CHARGE Hector Love MD [facility] CPT-60012 Level 3 Est. Patient 17:12:27 CDT Hector Love MD [facility] CPT-98038 Level 3 Est. Patient 15:30:32 CDT Hector Love MD [facility] CPT-88946 Level 3 Est. Patient 14:24:52 CDT Иван Mooney MD [facility] CPT-14989 Level 3 Est. Patient 14:08:38 EXTENSION SERVICE SPECIALIST IN CHARGE Hector Love MD [facility] Procedures Code Procedure Name Date Entry Date Standard Description CPT-J0561 Bicillin LA 1,200,000 u (PCN G Benzathine) 16:40:23 CDT CPT-52682 Abx/Therapy Injection 16:40:22 CDT CPT-J0561 Bicillin LA 1,200,000 u (PCN G Benzathine) 16:15:35 CDT CPT-15220 Immunization Single Admin 16:11:28 EXTENSION SERVICE SPECIALIST IN CHARGE CPT-20057 Fluzone Quadrivalent Intramuscular Suspension 0.5 ML 16: 11:28 EXTENSION SERVICE SPECIALIST IN CHARGE CPT-66485 Administration single or combination vaccine inc oral 13 :57:23 CDT CPT-76011 Menactra Intramuscular Injectable 13:57:23 CDT CPT-92578 First Vx Component - Ix admin via ID IM or jet inj without physician counseling 16:42:17 EXTENSION SERVICE SPECIALIST IN CHARGE CPT-03996 Fluzone preservative free (>=3 yrs.) 16:42:17 EXTENSION SERVICE SPECIALIST IN CHARGE 06/03 CPT-54991 Venipuncture Draw Fee 16:29:01 CDT CPT-20937 Chest 2V Frontal and Lat 16:23:56 CDT CPT-98258 Administration single or combination vaccine inc oral 13 :39:17 EXTENSION SERVICE SPECIALIST IN CHARGE CPT-41601 Tdap 13:39:17 EXTENSION SERVICE SPECIALIST IN CHARGE
--- OUTSIDE RECORDS SUMMARY | 2017-11-06 02:07 | XMS REPORT | Clinical Summary ---
Author Author Admin, LAMBERT Organization [facility] Address Unknown Phone Unavailable Allergies, Adverse Reactions, [...] Memory loss Sinusitis, frontal, acute 461.1 Resolved eHctor Love MD Acute frontal sinusitis NEED FOR PROPHYLACTIC VACCINATION WITH STREPTOCOCCUS PNEUMONIAE (PNEUMOCOCCUS) AND INFLUENZA V06.6 Resolved Hector Love MD Need for prophylactic vaccination and inoculation against Streptococcus pneumoniae [pneumococcus] and influenza Gastroenteritis, viral, acute 008.8 Resolved Martha Montejo TRANSPLANT COORDINATOR Intestinal infection due to other organism, not [...] employment physical examination V70.0 Active Manish Castrejon TRANSPLANT COORDINATOR Routine general medical examination at a health care facility Exposure to mononucleosis V01.79 Active Manish Castrejon TRANSPLANT COORDINATOR Contact with or exposure to other viral diseases Stress at work V62.1 Active Jillina Frazell TRANSPLANT COORDINATOR Adverse effects of work environment FH DIABETES [...] Gastroenteritis, viral, acute ICD-008.8 Inactive Martha Montejo TRANSPLANT COORDINATOR Bronchitis ICD-490 Inactive Hector Love MD 2014 Pharyngitis ICD-462 Inactive Hector Love MD Ingrown toenail ICD-703.0 Inactive Hector Love MD Malorie rodriguez, right ICD-703.0 Inactive Hector Love MD Medication List Medication Instructions Start Date Stop Date Generic Name ND Status Provider Patient Instruction PREDNISONE 20 MG TAB 1 tablet daily x 2 days PREDNISONE [id number] No Longer Active Jillina Frazell TRANSPLANT COORDINATOR Active AMOXICILLIN 500 MG TABS Take two tablets by mouth every 12 hours for 10 days AMOXICILLIN 00322159108 No Longer Active Иван Mooney MD Active VITAMIN C 500 MG CHEW TAB ASCORBIC ACID 43665073841 Active Иван Mooney MD Active PREDNISONE 20 MG TAB 2 po qd x 4 days PREDNISONE 79127155822 No Longer Active Hector Love MD Active HYDROCODONE-ACETAMINOPHEN 5-325 MG TABS 1/2 to 1 po q 4 hours prn pain 11/06 HYDROCODONE-ACETAMINOPHEN 43122362475 No Longer Active Hector Love MD Active FLONASE ALLERGY RELIEF 50 MCG/ACT NASAL SUSP 2 spray each nostril daily prn allergies FLUTICASONE PROPIONATE 78821129906 Active Hector Love MD Active AUGMENTIN 875-125 MG TAB 1 po BID x 10 days AMOXICILLIN-POT CLAVULANATE 30927272488 No Longer Active Hector Love MD Active FLONASE ALLERGY RELIEF 50 MCG/ACT NASAL SUSP 2 sprays each nostril daily PRN allergies FLUTICASONE PROPIONATE 97177111692 No Longer Active Hector Love MD Active AMOXICILLIN 500 MG CAPS 1 cap by mouth three times a day AMOXICILLIN 06011306690 No Longer Active Jillina Fradebora GARCIA Active KEFLEX 500 MG CAP 1 tab po tid CEPHALEXIN 45271672987 No Longer Active Jillina Frazell TRANSPLANT COORDINATOR Active AMOXICILLIN 500 MG TABS 2 tabs twice a day for 10 days AMOXICILLIN 26611889170 No Longer Active Jillina Frazell TRANSPLANT COORDINATOR Active ZYRTEC ALLERGY 10 MG CAPS 1 po qd CETIRIZINE HCL 13620043701 Active Hector Love MD Active PROGRAF 1 MG CAPS 2 tabs po bid TACROLIMUS 56850472545 Active Hector Love MD Active ZOFRAN 4 MG TABS 1 po q6hr PRN Nausea ONDANSETRON HCL 31950118333 No Longer Active Ramona Diggs [employer] Active AMOXICILLIN 500 MG CAPS 2 po BID x 10 days AMOXICILLIN 55510266790 No Longer Active Martha Escalantestephen TRANSPLANT COORDINATOR Active AUGMENTIN 875-125 MG TAB 1 tab by mouth twice daily with food AMOXICILLIN-POT CLAVULANATE 18196427856 No Longer Active Hector Love MD Active LEVAQUIN 500 MG TABS 1 pill by mouth daily LEVOFLOXACIN 80482892199 No Longer Active Jen Crystal MD PhD Active LISINOPRIL 5 MG TABS 1.5 tab qd LISINOPRIL 46650299199 Active Jen Crystal MD PhD Active KETOCONAZOLE 2 % CREA apply twice a day to rash KETOCONAZOLE 58358682097 No Longer Active Hector Love MD Active AUGMENTIN 875-125 MG TAB 1 tab by mouth twice daily with food AMOXICILLIN-POT CLAVULANATE 31042434979 No Longer Active Иван Mooney MD Active LOTRISONE 0.05-1 % CREAM Apply twice a day to affected area 07/19 CLOTRIMAZOLE-BETAMETHASONE 17933851818 No Longer Active Иван Mooney MD Active FEXOFENADINE HCL 180 MG TABS 1 Daily FEXOFENADINE HCL 48982023594 No Longer Active Hector Love MD Active PROGRAF 0.5 MG CAPS Take one by mouth daily with 1 mg TACROLIMUS 32970635968 No Longer Active Hector Love MD Active AMOXICILLIN 500 MG CAPS 2 po BID x 10 days AMOXICILLIN 82940068714 No Longer Active Hector Love MD Active RAPAMUNE 1 MG TABS 3 tabs in the am SIROLIMUS 72723637709 No Longer Active Hector Love MD Active AMOXICILLIN 500 MG CAPS 2 po BID x 10 days AMOXICILLIN 15941136684 No Longer Active Hector Love MD Active LORTAB 5 5-500 MG TABS 1/2 to 1 tablet by mouth every 4 hours as needed for pain HYDROCODONE-ACETAMINOPHEN 19163492730 No Longer Active Hector Love MD Active FLUTICASONE PROPIONATE 50 MCG/ACT SUSP INSTILL 2 SPRAYS IN EACH NOSTRIL Q D FLUTICASONE PROPIONATE 89163562900 No Longer Active Hector Love MD Active PROGRAF 1 MG CAPS 1 po bid TACROLIMUS 37002967734 No Longer Active Hector Love MD Active AMOXICILLIN 875 MG TABS 1 tab by mouth twice daily AMOXICILLIN 68498662849 No Longer Active Hector Love MD Active AMOXICILLIN 500 MG CAPS 2 po BID x 10 days AMOXICILLIN 16656561869 No Longer Active Hector Love MD Active AUGMENTIN 875-125 MG TAB 1 tab by mouth twice daily with food AMOXICILLIN-POT CLAVULANATE 13961274752 No Longer Active Hector Love MD Active AZITHROMYCIN 250 MG TABS 2 po qd x 1 day, then 1 po qd x 4 days AZITHROMYCIN 85293511494 No Longer Active Hector Love MD Active CETIRIZINE HCL 10 MG TABS 1 PO Q D CETIRIZINE HCL 10405912316 No Longer Active [place] Active PROGRAF 1 MG CAPS 1 po bid PROGRAF 1 MG CAPS 722328 TACROLIMUS Inactive FLUTICASONE PROPIONATE 50 MCG/ACT SUSP INSTILL 2 SPRAYS IN EACH NOSTRIL Q D FLUTICASONE PROPIONATE 50 MCG/ACT SUSP 6672696 FLUTICASONE PROPIONATE Inactive LORTAB 5 5-500 MG TABS 1/2 to 1 tablet by mouth every 4 hours as needed for pain LORTAB 5 5-500 MG TABS HYDROCODONE- ACETAMINOPHEN Inactive RAPAMUNE 1 MG TABS 3 tabs in the am RAPAMUNE 1 MG TABS 737996 SIROLIMUS Inactive PROGRAF 0.5 MG CAPS Take one by mouth daily with 1 mg PROGRAF 0.5 MG CAPS 050371 TACROLIMUS Inactive FEXOFENADINE HCL 180 MG TABS 1 Daily FEXOFENADINE HCL 180 MG TABS 290779 FEXOFENADINE HCL Inactive LOTRISONE 0.05-1 % CREAM Apply twice a day to affected area 07/19 LOTRISONE 0.05-1 % CREAM 945479 CLOTRIMAZOLE-BETAMETHASONE Inactive KETOCONAZOLE 2 % CREA apply twice a day to rash KETOCONAZOLE 2 % CREA 957616 KETOCONAZOLE Inactive AUGMENTIN 875-125 MG TAB 1 tab by mouth twice daily with food AUGMENTIN 875-125 MG TAB 738921 AMOXICILLIN-POT CLAVULANATE Inactive ZOFRAN 4 MG TABS 1 po q6hr PRN Nausea ZOFRAN 4 MG TABS 714945 ONDANSETRON HCL Inactive AMOXICILLIN 500 MG TABS 2 tabs twice a day for 10 days AMOXICILLIN 500 MG TABS 139809 AMOXICILLIN Inactive FLONASE ALLERGY RELIEF 50 MCG/ACT NASAL SUSP 2 sprays each nostril daily PRN allergies FLONASE ALLERGY RELIEF 50 MCG/ACT NASAL SUSP 1677260 FLUTICASONE PROPIONATE Inactive HYDROCODONE-ACETAMINOPHEN 5-325 MG TABS 1/2 to 1 po q 4 hours prn pain 11/06 HYDROCODONE-ACETAMINOPHEN 5-325 MG TABS 446541 HYDROCODONE- ACETAMINOPHEN Inactive PREDNISONE 20 MG TAB 1 tablet daily x 2 days PREDNISONE 20 MG TAB 081535 PREDNISONE Inactive AMOXICILLIN 500 MG CAPS 2 po BID x 10 days AMOXICILLIN 500 MG CAPS 665409 AMOXICILLIN Inactive AMOXICILLIN 875 MG TABS 1 tab by mouth twice daily AMOXICILLIN 875 MG TABS 894998 AMOXICILLIN Inactive AMOXICILLIN 500 MG CAPS 2 po BID x 10 days AMOXICILLIN 500 MG CAPS 277895 AMOXICILLIN Inactive AMOXICILLIN 500 MG CAPS 2 po BID x 10 days AMOXICILLIN 500 MG CAPS 094685 AMOXICILLIN Inactive AUGMENTIN 875-125 MG TAB 1 tab by mouth twice daily with food AUGMENTIN 875-125 MG TAB 875151 AMOXICILLIN-POT CLAVULANATE Inactive LEVAQUIN 500 MG TABS 1 pill by mouth daily LEVAQUIN 500 MG TABS 682093 LEVOFLOXACIN Inactive AMOXICILLIN 500 MG CAPS 2 po BID x 10 days AMOXICILLIN 500 MG CAPS 256192 AMOXICILLIN Inactive AMOXICILLIN 500 MG CAPS 1 cap by mouth three times a day AMOXICILLIN 500 MG CAPS 630396 AMOXICILLIN Inactive AUGMENTIN 875-125 MG TAB 1 po BID x 10 days AUGMENTIN 875-125 MG TAB 315232 AMOXICILLIN-POT CLAVULANATE Inactive PREDNISONE 20 MG TAB 2 po qd x 4 days PREDNISONE 20 MG TAB 362727 PREDNISONE Inactive AMOXICILLIN 500 MG TABS Take two tablets by mouth every 12 hours for 10 days AMOXICILLIN 500 MG TABS 985725 AMOXICILLIN Inactive Advance Directives Directive Description Start Date PERMISSION TO SHARE Immunizations Vaccine Administration Date Value Standard Description Seasonal influenza vaccine, injectable, preservative free, for > 3 years old ( Afluria, FluLaval, Fluzone, Fluvirin, Fluarix, Agriflu(>=18 yo)) Fluzone preservative free (>=3 yrs.) [[id number]] Influenza, seasonal, injectable, preservative free Adacel (Tetanus, reduced Diphtheria, and acellular Pertussis Immunization) Adacel [FWV622] tetanus toxoid, reduced diphtheria toxoid, and acellular [...] Panel - Chemistry sodium, serum 137 mmol/L 879-520 0089/08/14 carbon dioxide, venous blood 29.7 mmol/L 21.0-32.0 potassium, serum 4.3 mmol/L 3.5-5.2 chloride, serum 99 mmol/L 98-107 blood glucose 123 mg/dL 65-110 urea nitrogen, blood 12 mg/dL 7-18 creatinine, serum 0.84 mg/dL 0.60-1.30 alanine aminotransferase (SGPT), serum 48 U/L 12-78 aspartate aminotransferase (SGOT), serum 26 U/L 15-37 calcium, serum 9.4 mg/dL 8.5-10.1 bilirubin, serum, total 1.60 mg/dL 0.00-1.00 cholesterol, serum 141 mg/dL 488-170 5066/08/14 triglyceride, serum, fasting 54 mg/dL 30-200 HDL [...] semiquantitative 6.0 5.0-8.5 Lab Report: VITAMIN D, 25-HYDROXY/[id number] - Chemistry vitamin D 25-hydroxy, serum 18 ng/mL 30-100 Encounters Code Encounter Date Provider Facility CPT-50800 Level 3 Est. Patient 11:35:07 CDT Manish Castrejon [facility] CPT-21498 Level 3 Est. Patient 17:22:36 CDT Tracy Frey [facility] CPT-39215 Level 3 Est. Patient 16:06:03 CDT Manish Castrejon [facility] CPT-74930 Level 3 Est. Patient 09:57:24 CDT Manish Castrejon [facility] CPT-37527 Level 3 Est. Patient 16:31:04 CDT Иван Mooney MD [facility] CPT-35743 Level 4 Est. Patient 12:02:18 CDT Hector Love MD [facility] CPT-81939 Level 3 Est. Patient 16:14:45 CDT Hector Love MD [facility] CPT-07312 Level 3 Est. Patient 16:53:35 CDT Иван Mooney MD [facility] CPT-19558 Level 3 Est. Patient 15:57:13 CDT Martha Montejo RADHA [facility] CPT-79607 Level 3 Est. Patient 14:30:47 RESTRICTIVE PREPARATION OPERATOR Hector Love MD [facility] CPT-72875 Level 3 Est. Patient 14:50:45 CDT Hector Love MD [facility] CPT-17587 Level 3 Est. Patient 21:17:30 CDT Jen Crystal MD PhD [facility] CPT-45239 Level 3 Est. Patient 09:32:55 CDT Hector Love MD [facility] CPT-10605 Level 3 Est. Patient 15:11:08 RESTRICTIVE PREPARATION OPERATOR Иван Mooney MD [facility] CPT-02022 Level 3 Est. Patient 16:38:53 RESTRICTIVE PREPARATION OPERATOR Hector Love MD [facility] CPT-09521 Level 3 Est. Patient 15:46:05 CDT Hector Love MD [facility] CPT-24902 Level 3 Est. Patient 13:59:39 CDT Hector Love MD [facility] CPT-51878 Level 3 Est. Patient 14:44:46 RESTRICTIVE PREPARATION OPERATOR Hector Love MD [facility] CPT-72591 Level 3 Est. Patient 17:12:27 CDT Hector Love MD [facility] CPT-94087 Level 3 Est. Patient 15:30:32 CDT Hector Love MD [facility] CPT-99964 Level 3 Est. Patient 14:24:52 CDT Иван Mooney MD [facility] CPT-18440 Level 3 Est. Patient 14:08:38 RESTRICTIVE PREPARATION OPERATOR Hector Love MD [facility] Procedures Code Procedure Name Date Entry Date Standard Description CPT-61611 Venipuncture Draw Fee 16:18:26 CDT CPT-25422 TB Skin Test 09:57:25 CDT CPT-000 Give Appropriate Flu Vaccine 16:22:23 RESTRICTIVE PREPARATION OPERATOR CPT-24124 Free T4 - LAB USE ONLY 11:38:58 CDT CPT-11892 TSH - LAB USE ONLY 11:38:58 CDT CPT-76568 Venipuncture Draw Fee 11:38:58 CDT CPT-64121 Fluzone Quadrivalent Intramuscular Suspension 0.5 ML 16: 12:26 RESTRICTIVE PREPARATION OPERATOR CPT-29781 Immunization Single Admin 16:12:26 RESTRICTIVE PREPARATION OPERATOR CPT-J0561 Bicillin LA 1,200,000 u (PCN G Benzathine) 16:40:23 CDT CPT-99138 Abx/Therapy Injection 16:40:22 CDT CPT-J0561 Bicillin LA 1,200,000 u (PCN G Benzathine) 16:15:35 CDT CPT-54502 Immunization Single Admin 16:11:28 RESTRICTIVE PREPARATION OPERATOR CPT-74643 Fluzone Quadrivalent Intramuscular Suspension 0.5 ML 16: 11:28 RESTRICTIVE PREPARATION OPERATOR CPT-43540 Administration single or combination vaccine inc oral 13 :57:23 CDT CPT-89657 Menactra Intramuscular Injectable 13:57:23 CDT CPT-43556 First Vx Component - Ix admin via ID IM or jet inj without physician counseling 16:42:17 RESTRICTIVE PREPARATION OPERATOR CPT-68231 Fluzone preservative free (>=3 yrs.) 16:42:17 RESTRICTIVE PREPARATION OPERATOR 06/03 CPT-04834 Venipuncture Draw Fee 16:29:01 CDT CPT-37089 Chest 2V Frontal and Lat 16:23:56 CDT CPT-98728 Administration single or combination vaccine inc oral 13 :39:17 RESTRICTIVE PREPARATION OPERATOR CPT-58534 Tdap 13:39:17 RESTRICTIVE PREPARATION OPERATOR
--- OUTSIDE RECORDS SUMMARY | 2017-11-06 02:08 | XMS REPORT | Clinical Summary ---
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 Routine general medical examination at a health care facility BRONCHITIS, ACUTE ICD-466.0 Inactive Hector Love MD KNEE SPRAIN, LEFT ICD-844.9 Inactive Hector Love MD FH DIABETES ICD-V18.0 Inactive Hector Love MD U R I ICD-465.9 Inactive Hector Love MD COSTOCHRONDRITIS ICD-733.6 Nils Love MD COUGH ICD-786.2 Nils Love MD Tinea corporis ICD-110.5 Inactive Hector Love MD Sinusitis ICD-461.9 Nils Love MD Fever ICD-780.60 Inactive Hector Love MD SINUSITIS, ACUTE ICD-461.9 Nils Love MD Sinusitis, frontal, acute ICD-461.1 Inactive Hector Love MD NEED FOR PROPHYLACTIC VACCINATION WITH STREPTOCOCCUS PNEUMONIAE (PNEUMOCOCCUS) AND INFLUENZA ICD-V06.6 Inactive Hector Love MD FEVER UNSPECIFIED ICD-780.60 Nils Love MD Gastroenteritis, viral, acute ICD-008.8 Inactive Martha Montejo APRN Bronchitis ICD-490 Inactive Hector Love MD 2014 Ingrown toenail, right ICD-703.0 Nils Love MD Pharyngitis ICD-462 Nils Love MD Ingrown toenail ICD-703.0 Nils Love MD Medication List Medication Instructions Start Date Stop Date Generic Name NDC Status Provider Patient Instruction AMOXICILLIN 500 MG TABS Take two tablets by mouth every 12 hours for 10 days AMOXICILLIN 41204980887 No Longer Active Иван Mooney MD Active VITAMIN C 500 MG CHEW TAB ASCORBIC ACID 26795051009 Active Иван Mooney MD Active PREDNISONE 20 MG TAB 2 po qd x 4 days PREDNISONE 26814810150 No Longer Active Hector Love MD Active HYDROCODONE-ACETAMINOPHEN 5-325 MG TABS 1/2 to 1 po q 4 hours prn pain 11/06 HYDROCODONE-ACETAMINOPHEN 34750004970 No Longer Active Hector Love MD Active FLONASE ALLERGY RELIEF 50 MCG/ACT NASAL SUSP 2 spray each nostril daily prn allergies FLUTICASONE PROPIONATE 71687978940 Active Hector Love MD Active AUGMENTIN 875-125 MG TAB 1 po BID x 10 days AMOXICILLIN-POT CLAVULANATE 92857370452 No Longer Active Hector Love MD Active FLONASE ALLERGY RELIEF 50 MCG/ACT NASAL SUSP 2 sprays each nostril daily PRN allergies FLUTICASONE PROPIONATE 51577447405 No Longer Active Hector Love MD Active AMOXICILLIN 500 MG CAPS 1 cap by mouth three times a day AMOXICILLIN 20147641891 No Longer Active Jillina Fradebora NOWAKN Active KEFLEX 500 MG CAP 1 tab po tid CEPHALEXIN 86590152018 No Longer Active Jillina Fradebora NOWAKN Active AMOXICILLIN 500 MG TABS 2 tabs twice a day for 10 days AMOXICILLIN 99943258137 No Longer Active Jillina Frazell 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 ZYRTEC ALLERGY 10 MG CAPS 1 po qd CETIRIZINE HCL 18542726069 Active Hector Love MD Active PROGRAF 1 MG CAPS 2 tabs po bid TACROLIMUS 82696931531 Active Hector Love MD Active ZOFRAN 4 MG TABS 1 po q6hr PRN Nausea ONDANSETRON HCL 07183312588 No Longer Active Ramona Diggs LPN Active AMOXICILLIN 500 MG CAPS 2 po BID x 10 days AMOXICILLIN 92484277881 No Longer Active Martha Montejo APRN Active AUGMENTIN 875-125 MG TAB 1 tab by mouth twice daily with food AMOXICILLIN-POT CLAVULANATE 89897137970 No Longer Active Hector Love MD Active LEVAQUIN 500 MG TABS 1 pill by mouth daily LEVOFLOXACIN 52940977443 No Longer Active Jen Crystal MD PhD Active LISINOPRIL 5 MG TABS 1.5 tab qd LISINOPRIL 85364257301 Active Jen Crystal MD PhD Active KETOCONAZOLE 2 % CREA apply twice a day to rash KETOCONAZOLE 06969168879 No Longer Active Hector Love MD Active AUGMENTIN 875-125 MG TAB 1 tab by mouth twice daily with food AMOXICILLIN-POT CLAVULANATE 59979569829 No Longer Active Иван Mooney MD Active LOTRISONE 0.05-1 % CREAM Apply twice a day to affected area 07/19 CLOTRIMAZOLE-BETAMETHASONE 65587576262 No Longer Active Иван Mooney MD Active FEXOFENADINE HCL 180 MG TABS 1 Daily FEXOFENADINE HCL 17102380967 No Longer Active Hector Love MD Active PROGRAF 0.5 MG CAPS Take one by mouth daily with 1 mg TACROLIMUS 21519275532 No Longer Active Hector Love MD Active AMOXICILLIN 500 MG CAPS 2 po BID x 10 days AMOXICILLIN 84618315600 No Longer Active Hector Love MD Active RAPAMUNE 1 MG TABS 3 tabs in the am SIROLIMUS 44183952227 No Longer Active Hector Love MD Active AMOXICILLIN 500 MG CAPS 2 po BID x 10 days AMOXICILLIN 12992338796 No Longer Active Hector Love MD Active LORTAB 5 5-500 MG TABS 1/2 to 1 tablet by mouth every 4 hours as needed for pain HYDROCODONE-ACETAMINOPHEN 72247572923 No Longer Active Hector Love MD Active FLUTICASONE PROPIONATE 50 MCG/ACT SUSP INSTILL 2 SPRAYS IN EACH NOSTRIL Q D FLUTICASONE PROPIONATE 92018938424 No Longer Active Hector Love MD Active PROGRAF 1 MG CAPS 1 po bid TACROLIMUS 66806259683 No Longer Active Hector Love MD Active AMOXICILLIN 875 MG TABS 1 tab by mouth twice daily AMOXICILLIN 94450813121 No Longer Active Hector Love MD Active AMOXICILLIN 500 MG CAPS 2 po BID x 10 days AMOXICILLIN 11121912698 No Longer Active Hector Love MD Active AUGMENTIN 875-125 MG TAB 1 tab by mouth twice daily with food AMOXICILLIN-POT CLAVULANATE 98161882954 No Longer Active Hector Love MD Active AZITHROMYCIN 250 MG TABS 2 po qd x 1 day, then 1 po qd x 4 days AZITHROMYCIN 87434253367 No Longer Active Hector Love MD Active CETIRIZINE HCL 10 MG TABS 1 PO Q D CETIRIZINE HCL 07223011509 No Longer Active Waleska Timblin Active PROGRAF 1 MG CAPS 1 po bid PROGRAF 1 MG CAPS 522356 TACROLIMUS Inactive FLUTICASONE PROPIONATE 50 MCG/ACT SUSP INSTILL 2 SPRAYS IN EACH NOSTRIL Q D FLUTICASONE PROPIONATE 50 MCG/ACT SUSP 8379989 FLUTICASONE PROPIONATE Inactive LORTAB 5 5-500 MG TABS 1/2 to 1 tablet by mouth every 4 hours as needed for pain LORTAB 5 5-500 MG TABS HYDROCODONE- ACETAMINOPHEN Inactive RAPAMUNE 1 MG TABS 3 tabs in the am RAPAMUNE 1 MG TABS 659212 SIROLIMUS Inactive PROGRAF 0.5 MG CAPS Take one by mouth daily with 1 mg PROGRAF 0.5 MG CAPS 460614 TACROLIMUS Inactive FEXOFENADINE HCL 180 MG TABS 1 Daily FEXOFENADINE HCL 180 MG TABS 817632 FEXOFENADINE HCL Inactive LOTRISONE 0.05-1 % CREAM Apply twice a day to affected area 07/19 LOTRISONE 0.05-1 % CREAM 122774 CLOTRIMAZOLE-BETAMETHASONE Inactive KETOCONAZOLE 2 % CREA apply twice a day to rash KETOCONAZOLE 2 % CREA 184064 KETOCONAZOLE Inactive AUGMENTIN 875-125 MG TAB 1 tab by mouth twice daily with food AUGMENTIN 875-125 MG TAB 180298 AMOXICILLIN-POT CLAVULANATE Inactive ZOFRAN 4 MG TABS 1 po q6hr PRN Nausea ZOFRAN 4 MG TABS 748014 ONDANSETRON HCL Inactive AMOXICILLIN 500 MG TABS 2 tabs twice a day for 10 days AMOXICILLIN 500 MG TABS 887477 AMOXICILLIN Inactive FLONASE ALLERGY RELIEF 50 MCG/ACT NASAL SUSP 2 sprays each nostril daily PRN allergies FLONASE ALLERGY RELIEF 50 MCG/ACT NASAL SUSP 2744589 FLUTICASONE PROPIONATE Inactive HYDROCODONE-ACETAMINOPHEN 5-325 MG TABS 1/2 to 1 po q 4 hours prn pain 11/06 HYDROCODONE-ACETAMINOPHEN 5-325 MG TABS 419252 HYDROCODONE- ACETAMINOPHEN Inactive AMOXICILLIN 500 MG CAPS 2 po BID x 10 days AMOXICILLIN 500 MG CAPS 575472 AMOXICILLIN Inactive AMOXICILLIN 875 MG TABS 1 tab by mouth twice daily AMOXICILLIN 875 MG TABS 083549 AMOXICILLIN Inactive AMOXICILLIN 500 MG CAPS 2 po BID x 10 days AMOXICILLIN 500 MG CAPS 255474 AMOXICILLIN Inactive AMOXICILLIN 500 MG CAPS 2 po BID x 10 days AMOXICILLIN 500 MG CAPS 296447 AMOXICILLIN Inactive AUGMENTIN 875-125 MG TAB 1 tab by mouth twice daily with food AUGMENTIN 875-125 MG TAB 289807 AMOXICILLIN-POT CLAVULANATE Inactive LEVAQUIN 500 MG TABS 1 pill by mouth daily LEVAQUIN 500 MG TABS 693100 LEVOFLOXACIN Inactive AMOXICILLIN 500 MG CAPS 2 po BID x 10 days AMOXICILLIN 500 MG CAPS 893359 AMOXICILLIN Inactive AMOXICILLIN 500 MG CAPS 1 cap by mouth three times a day AMOXICILLIN 500 MG CAPS 333751 AMOXICILLIN Inactive AUGMENTIN 875-125 MG TAB 1 po BID x 10 days AUGMENTIN 875-125 MG TAB 598228 AMOXICILLIN-POT CLAVULANATE Inactive PREDNISONE 20 MG TAB 2 po qd x 4 days PREDNISONE 20 MG TAB 021199 PREDNISONE Inactive AMOXICILLIN 500 MG TABS Take two tablets by mouth every 12 hours for 10 days AMOXICILLIN 500 MG TABS 556646 AMOXICILLIN Inactive Advance Directives Directive Description Start Date PERMISSION TO SHARE Immunizations Vaccine Administration Date Value Standard Description Seasonal influenza vaccine, injectable, preservative free, for > 3 years old ( Afluria, FluLaval, Fluzone, Fluvirin, Fluarix, Agriflu(>=18 yo)) Fluzone preservative free (>=3 yrs.) [IQF203] Influenza, seasonal, injectable, preservative free Adacel (Tetanus, reduced Diphtheria, and acellular Pertussis Immunization) Adacel [KEW600] tetanus toxoid, reduced diphtheria toxoid, and acellular [...] 0.76-1.46 Encounters Code Encounter Date Provider Facility CPT-78030 Level 3 Est. Patient 09:57:24 CDT Elijahudaydenise Castrejon [facility] CPT-26240 Level 3 Est. Patient 16:31:04 CDT Иван Mooney MD [facility] CPT-69450 Level 4 Est. Patient 12:02:18 CDT Hector Love MD [facility] CPT-07182 Level 3 Est. Patient 16:14:45 CDT Hector Love MD [facility] CPT-36924 Level 3 Est. Patient 16:53:35 CDT Иван Mooney MD [facility] CPT-27050 Level 3 Est. Patient 15:57:13 CDT Martha Montejo [facility] CPT-38907 Level 3 Est. 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 Patient 14:50:45 CDT Hector Love MD [facility] CPT-43875 Level 3 Est. Patient 21:17:30 CDT Jen Crystal MD [facility] CPT-46156 Level 3 Est. Patient 09:32:55 CDT Hector Love MD [facility] CPT-76845 Level 3 Est. Patient 15:11:08 MAKING DEPARTMENT PREPARER Иван Mooney MD [facility] CPT-68631 Level 3 Est. Patient 16:38:53 MAKING DEPARTMENT PREPARER Hector Love MD [facility] CPT-66797 Level 3 Est. Patient 15:46:05 CDT Hector Love MD [facility] CPT-33493 Level 3 Est. Patient 13:59:39 CDT Hector Love MD [facility] CPT-53996 Level 3 Est. 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 Patient 17:12:27 CDT Hector Love MD [facility] CPT-36439 Level 3 Est. Patient 15:30:32 CDT Hector Love MD [facility] CPT-38513 Level 3 Est. Patient 14:24:52 CDT Иван Mooney MD [facility] CPT-30729 Level 3 Est. 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 Hector Love MD [facility] Procedures Code Procedure Name Date Entry Date Standard Description CPT-03681 TB Skin Test 09:57:25 CDT CPT-000 Give Appropriate Flu Vaccine 16:22:23 MAKING DEPARTMENT PREPARER CPT-27972 Free T4 - LAB USE ONLY 11:38:58 CDT CPT-20317 TSH - LAB USE ONLY 11:38:58 CDT CPT-17288 Venipuncture Draw Fee 11:38:58 CDT CPT-42117 Fluzone Quadrivalent Intramuscular Suspension 0.5 ML 16: 12:26 MAKING DEPARTMENT PREPARER CPT-49257 Immunization Single Admin 16:12:26 MAKING DEPARTMENT PREPARER CPT-J0561 Bicillin LA 1,200,000 u (PCN G Benzathine) 16:40:23 CDT CPT-82184 Abx/Therapy Injection 16:40:22 CDT CPT-J0561 Bicillin LA 1,200,000 u (PCN G Benzathine) 16:15:35 CDT CPT-41609 Immunization Single Admin 16:11:28 MAKING DEPARTMENT PREPARER CPT-18617 Fluzone Quadrivalent Intramuscular Suspension 0.5 ML 16: 11:28 MAKING DEPARTMENT PREPARER CPT-46613 Administration single or combination vaccine inc oral 13 :57:23 CDT CPT-95416 Menactra Intramuscular Injectable 13:57:23 CDT CPT-95247 First Vx Component - Ix admin via ID IM or jet inj without physician counseling 16:42:17 MAKING DEPARTMENT PREPARER CPT-65673 Fluzone preservative free (>=3 yrs.) 16:42:17 MAKING DEPARTMENT PREPARER 06/03 CPT-34996 Venipuncture Draw Fee 16:29:01 CDT CPT-40250 Chest 2V Frontal and Lat 16:23:56 CDT CPT-16202 Administration single or combination vaccine inc oral 13 :39:17 MAKING DEPARTMENT PREPARER CPT-42193 Tdap 13:39:17 MAKING DEPARTMENT PREPARER
--- OUTSIDE RECORDS SUMMARY | 2017-11-06 02:09 | XMS REPORT | Clinical Summary ---
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 Contact with or exposure to other viral diseases BRONCHITIS, ACUTE ICD-466.0 Inactive Hector Love MD KNEE SPRAIN, LEFT ICD-844.9 Inactive Hector Love MD U R I ICD-465.9 Inactive Hector Love MD COUGH ICD-786.2 Inactive Hector Lvoe MD COSTOCHRONDRITIS ICD-733.6 Inactive Hector Love MD [...] viral, acute ICD-008.8 Inactive Martha Montejo APRN FH DIABETES ICD-V18.0 Inactive Hector Love MD Pharyngitis ICD-462 Inactive Hector Love MD Ingrown toenail ICD-703.0 Inactive Hector Love MD Ingrown toenail, right ICD-703.0 Nils Love MD Bronchitis ICD-490 Inactive Hector Love MD 2014 Medication List Medication Instructions Start Date Stop Date Generic Name ND Status Provider Patient Instruction PREDNISONE 20 MG TAB 1 tablet daily x 2 days PREDNISONE 92487746046 Active Pilo Flores DO Active AMOXICILLIN 500 MG TABS Take two tablets by mouth every 12 hours for 10 days AMOXICILLIN 29826468432 No Longer Active Иван Mooney MD Active VITAMIN C 500 MG CHEW TAB ASCORBIC ACID 48902845964 Active Иван Mooney MD Active PREDNISONE 20 MG TAB 2 po qd x 4 days PREDNISONE 54170650568 No Longer Active Hector Love MD Active HYDROCODONE-ACETAMINOPHEN 5-325 MG TABS 1/2 to 1 po q 4 hours prn pain 11/06 HYDROCODONE-ACETAMINOPHEN 69130997920 No Longer Active Hector Love MD Active FLONASE ALLERGY RELIEF 50 MCG/ACT NASAL SUSP 2 spray each nostril daily prn allergies FLUTICASONE PROPIONATE 59641398225 Active Hector Love MD Active AUGMENTIN 875-125 MG TAB 1 po BID x 10 days AMOXICILLIN-POT CLAVULANATE 38833970679 No Longer Active Hector Love MD Active FLONASE ALLERGY RELIEF 50 MCG/ACT NASAL SUSP 2 sprays each nostril daily PRN allergies FLUTICASONE PROPIONATE 08842621120 No Longer Active Hector Love MD Active AMOXICILLIN 500 MG CAPS 1 cap by mouth three times a day AMOXICILLIN 85994574716 No Longer Active Jillina Frazell 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 KETTLE OPERATOR Active KEFLEX 500 MG CAP 1 tab po tid CEPHALEXIN 30896449904 No Longer Active Jillina Frazell 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 KETTLE OPERATOR Active AMOXICILLIN 500 MG TABS 2 tabs twice a day for 10 days AMOXICILLIN 06750187766 No Longer Active Jillina Frazell 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 KETTLE OPERATOR Active ZYRTEC ALLERGY 10 MG CAPS 1 po qd CETIRIZINE HCL 65568846905 Active Hector Love MD Active PROGRAF 1 MG CAPS 2 tabs po bid TACROLIMUS 86344292315 Active Hecotr Love MD Active ZOFRAN 4 MG TABS 1 po q6hr PRN Nausea ONDANSETRON HCL 36581111918 No Longer Active Ramona Diggs LPN Active AMOXICILLIN 500 MG CAPS 2 po BID x 10 days AMOXICILLIN 73192544501 No Longer Active Martha Yohenrique GARCIA Active AUGMENTIN 875-125 MG TAB 1 tab by mouth twice daily with food AMOXICILLIN-POT CLAVULANATE 29860308675 No Longer Active Hector Love MD Active LEVAQUIN 500 MG TABS 1 pill by mouth daily LEVOFLOXACIN 08345518457 No Longer Active Jen Crystal MD PhD Active LISINOPRIL 5 MG TABS 1.5 tab qd LISINOPRIL 61538062653 Active Jen Crystal MD PhD Active KETOCONAZOLE 2 % CREA apply twice a day to rash KETOCONAZOLE 93945256547 No Longer Active Hector Love MD Active AUGMENTIN 875-125 MG TAB 1 tab by mouth twice daily with food AMOXICILLIN-POT CLAVULANATE 05580736745 No Longer Active Иван Mooney MD Active LOTRISONE 0.05-1 % CREAM Apply twice a day to affected area 07/19 CLOTRIMAZOLE-BETAMETHASONE 31674983489 No Longer Active Иван Mooney MD Active FEXOFENADINE HCL 180 MG TABS 1 Daily FEXOFENADINE HCL 92072279458 No Longer Active Hector Love MD Active PROGRAF 0.5 MG CAPS Take one by mouth daily with 1 mg TACROLIMUS 41553787139 No Longer Active Hector Love MD Active AMOXICILLIN 500 MG CAPS 2 po BID x 10 days AMOXICILLIN 16698683956 No Longer Active Hector Love MD Active RAPAMUNE 1 MG TABS 3 tabs in the am SIROLIMUS 41546347349 No Longer Active Hector Love MD Active AMOXICILLIN 500 MG CAPS 2 po BID x 10 days AMOXICILLIN 88875819658 No Longer Active Hector Love MD Active LORTAB 5 5-500 MG TABS 1/2 to 1 tablet by mouth every 4 hours as needed for pain HYDROCODONE-ACETAMINOPHEN 33405749424 No Longer Active Hector Love MD Active FLUTICASONE PROPIONATE 50 MCG/ACT SUSP INSTILL 2 SPRAYS IN EACH NOSTRIL Q D FLUTICASONE PROPIONATE 57913376897 No Longer Active Hector Love MD Active PROGRAF 1 MG CAPS 1 po bid TACROLIMUS 96485059410 No Longer Active Hector Love MD Active AMOXICILLIN 875 MG TABS 1 tab by mouth twice daily AMOXICILLIN 62988884288 No Longer Active Hector Love MD Active AMOXICILLIN 500 MG CAPS 2 po BID x 10 days AMOXICILLIN 66691079890 No Longer Active Hector Love MD Active AUGMENTIN 875-125 MG TAB 1 tab by mouth twice daily with food AMOXICILLIN-POT CLAVULANATE 95484211567 No Longer Active Hector Love MD Active AZITHROMYCIN 250 MG TABS 2 po qd x 1 day, then 1 po qd x 4 days AZITHROMYCIN 06664302044 No Longer Active Hector Love MD Active CETIRIZINE HCL 10 MG TABS 1 PO Q D CETIRIZINE HCL 03737191278 No Longer Active Waleska Levy Active PROGRAF 1 MG CAPS 1 po bid PROGRAF 1 MG CAPS 757997 TACROLIMUS Inactive FLUTICASONE PROPIONATE 50 MCG/ACT SUSP INSTILL 2 SPRAYS IN EACH NOSTRIL Q D FLUTICASONE PROPIONATE 50 MCG/ACT SUSP 4452100 FLUTICASONE PROPIONATE Inactive LORTAB 5 5-500 MG TABS 1/2 to 1 tablet by mouth every 4 hours as needed for pain LORTAB 5 5-500 MG TABS HYDROCODONE- ACETAMINOPHEN Inactive RAPAMUNE 1 MG TABS 3 tabs in the am RAPAMUNE 1 MG TABS 474148 SIROLIMUS Inactive PROGRAF 0.5 MG CAPS Take one by mouth daily with 1 mg PROGRAF 0.5 MG CAPS 142429 TACROLIMUS Inactive FEXOFENADINE HCL 180 MG TABS 1 Daily FEXOFENADINE HCL 180 MG TABS 924722 FEXOFENADINE HCL Inactive LOTRISONE 0.05-1 % CREAM Apply twice a day to affected area 07/19 LOTRISONE 0.05-1 % CREAM 722932 CLOTRIMAZOLE-BETAMETHASONE Inactive KETOCONAZOLE 2 % CREA apply twice a day to rash KETOCONAZOLE 2 % CREA 021423 KETOCONAZOLE Inactive AUGMENTIN 875-125 MG TAB 1 tab by mouth twice daily with food AUGMENTIN 875-125 MG TAB 312838 AMOXICILLIN-POT CLAVULANATE Inactive ZOFRAN 4 MG TABS 1 po q6hr PRN Nausea ZOFRAN 4 MG TABS 820456 ONDANSETRON HCL Inactive AMOXICILLIN 500 MG TABS 2 tabs twice a day for 10 days AMOXICILLIN 500 MG TABS 845422 AMOXICILLIN Inactive FLONASE ALLERGY RELIEF 50 MCG/ACT NASAL SUSP 2 sprays each nostril daily PRN allergies FLONASE ALLERGY RELIEF 50 MCG/ACT NASAL SUSP 7539724 FLUTICASONE PROPIONATE Inactive HYDROCODONE-ACETAMINOPHEN 5-325 MG TABS 1/2 to 1 po q 4 hours prn pain 11/06 HYDROCODONE-ACETAMINOPHEN 5-325 MG TABS 089352 HYDROCODONE- ACETAMINOPHEN Inactive AMOXICILLIN 500 MG CAPS 2 po BID x 10 days AMOXICILLIN 500 MG CAPS 109723 AMOXICILLIN Inactive AMOXICILLIN 875 MG TABS 1 tab by mouth twice daily AMOXICILLIN 875 MG TABS 958684 AMOXICILLIN Inactive AMOXICILLIN 500 MG CAPS 2 po BID x 10 days AMOXICILLIN 500 MG CAPS 551819 AMOXICILLIN Inactive AMOXICILLIN 500 MG CAPS 2 po BID x 10 days AMOXICILLIN 500 MG CAPS 845769 AMOXICILLIN Inactive AUGMENTIN 875-125 MG TAB 1 tab by mouth twice daily with food AUGMENTIN 875-125 MG TAB 661894 AMOXICILLIN-POT CLAVULANATE Inactive LEVAQUIN 500 MG TABS 1 pill by mouth daily LEVAQUIN 500 MG TABS 939779 LEVOFLOXACIN Inactive AMOXICILLIN 500 MG CAPS 2 po BID x 10 days AMOXICILLIN 500 MG CAPS 811597 AMOXICILLIN Inactive AMOXICILLIN 500 MG CAPS 1 cap by mouth three times a day AMOXICILLIN 500 MG CAPS 684166 AMOXICILLIN Inactive AUGMENTIN 875-125 MG TAB 1 po BID x 10 days AUGMENTIN 875-125 MG TAB 351970 AMOXICILLIN-POT CLAVULANATE Inactive PREDNISONE 20 MG TAB 2 po qd x 4 days PREDNISONE 20 MG TAB 293999 PREDNISONE Inactive AMOXICILLIN 500 MG TABS Take two tablets by mouth every 12 hours for 10 days AMOXICILLIN 500 MG TABS 955172 AMOXICILLIN Inactive Advance Directives Directive Description Start Date PERMISSION TO SHARE Immunizations Vaccine Administration Date Value Standard Description Seasonal influenza vaccine, injectable, preservative free, for > 3 years old ( Afluria, FluLaval, Fluzone, Fluvirin, Fluarix, Agriflu(>=18 yo)) Fluzone preservative free (>=3 yrs.) [INT530] Influenza, seasonal, injectable, preservative free Adacel (Tetanus, reduced Diphtheria, and acellular Pertussis Immunization) Adacel [UOZ455] tetanus toxoid, reduced diphtheria toxoid, and acellular [...] Panel - Chemistry sodium, serum 137 mmol/L 123-857 4867/08/14 carbon dioxide, venous blood 29.7 mmol/L 21.0-32.0 potassium, serum 4.3 mmol/L 3.5-5.2 chloride, serum 99 mmol/L 98-107 blood glucose 123 mg/dL 65-110 urea nitrogen, blood 12 mg/dL 7-18 creatinine, serum 0.84 mg/dL 0.60-1.30 alanine aminotransferase (SGPT), serum 48 U/L 12-78 aspartate aminotransferase (SGOT), serum 26 U/L 15-37 calcium, serum 9.4 mg/dL 8.5-10.1 bilirubin, serum, total 1.60 mg/dL 0.00-1.00 cholesterol, serum 141 mg/dL 414-968 2807/08/14 triglyceride, serum, fasting 54 mg/dL 30-200 HDL [...] semiquantitative 6.0 5.0-8.5 Lab Report: VITAMIN D, 25-[id number]/[id number] - Chemistry vitamin D 25-hydroxy, serum 18 ng/mL 30-100 Encounters Code Encounter Date Provider Facility CPT-37428 Level 3 Est. [facility] Est[facility] Patient 16:06:03 CDT Manish Castrejon [facility]-59844 Level 3 Est. Patient 09:57:24 CDT Manish Castrejon [facility] CPT-34248 Level 3 Est. Patient 16:31:04 CDT Иван Mooney MD [facility] CPT-25822 Level 4 Est. Patient 12:02:18 CDT Hector Love MD [facility] CPT-63726 Level 3 Est. Patient 16:14:45 CDT Hector Love MD [facility] CPT-33861 Level 3 Est. Patient 16:53:35 CDT Иван Mooney MD [facility] CPT-68436 Level 3 Est. Patient 15:57:13 CDT Martha Mnotejo [facility] CPT-06035 Level 3 Est. 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 Patient 14:50:45 CDT Hector Love MD [facility] CPT-35096 Level 3 Est. Patient 21:17:30 CDT Jen Crystal MD PhD [facility] CPT-53257 Level 3 Est. Patient 09:32:55 CDT Hector Love MD [facility] CPT-98507 Level 3 Est. Patient 15:11:08 SYNTHETIC CLOTH BINDING CUTTER Иван Mooney MD [facility] CPT-58183 Level 3 Est. Patient 16:38:53 SYNTHETIC CLOTH BINDING CUTTER Hector Love MD [facility] CPT-89579 Level 3 Est. Patient 15:46:05 CDT Hector Love MD [facility] CPT-32497 Level 3 Est. Patient 13:59:39 CDT Hector Love MD [facility] CPT-30777 Level 3 Est. 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 Patient 17:12:27 CDT Hector Love MD [facility] CPT-24768 Level 3 Est. Patient 15:30:32 CDT Hector Love MD [facility] CPT-39244 Level 3 Est. Patient 14:24:52 CDT Иван Mooney MD [facility] CPT-27668 Level 3 Est. 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 Hector Love MD [facility] Procedures Code Procedure Name Date Entry Date Standard Description CPT-97166 Venipuncture Draw Fee 16:18:26 CDT CPT-87769 TB Skin Test 09:57:25 CDT CPT-000 Give Appropriate Flu Vaccine 16:22:23 SYNTHETIC CLOTH BINDING CUTTER CPT-12434 Free T4 - LAB USE ONLY 11:38:58 CDT CPT-83542 TSH - LAB USE ONLY 11:38:58 CDT CPT-85833 Venipuncture Draw Fee 11:38:58 CDT CPT-37877 Fluzone Quadrivalent Intramuscular Suspension 0.5 ML 16: 12:26 SYNTHETIC CLOTH BINDING CUTTER CPT-58087 Immunization Single Admin 16:12:26 SYNTHETIC CLOTH BINDING CUTTER CPT-J0561 Bicillin LA 1,200,000 u (PCN G Benzathine) 16:40:23 CDT CPT-68867 Abx/Therapy Injection 16:40:22 CDT CPT-J0561 Bicillin LA 1,200,000 u (PCN G Benzathine) 16:15:35 CDT CPT-77146 Immunization Single Admin 16:11:28 SYNTHETIC CLOTH BINDING CUTTER CPT-87228 Fluzone Quadrivalent Intramuscular Suspension 0.5 ML 16: 11:28 SYNTHETIC CLOTH BINDING CUTTER CPT-03928 Administration single or combination vaccine inc oral 13 :57:23 CDT CPT-50678 Menactra Intramuscular Injectable 13:57:23 CDT CPT-06487 First Vx Component - Ix admin via ID IM or jet inj without physician counseling 16:42:17 SYNTHETIC CLOTH BINDING CUTTER CPT-69805 Fluzone preservative free (>=3 yrs.) 16:42:17 SYNTHETIC CLOTH BINDING CUTTER 06/03 CPT-98766 Venipuncture Draw Fee 16:29:01 CDT CPT-21720 Chest 2V Frontal and Lat 16:23:56 CDT CPT-87704 Administration single or combination vaccine inc oral 13 :39:17 SYNTHETIC CLOTH BINDING CUTTER CPT-32223 Tdap 13:39:17 SYNTHETIC CLOTH BINDING CUTTER
--- OUTSIDE RECORDS SUMMARY | 2017-11-06 02:10 | XMS REPORT | Clinical Summary ---
Author Author Admin, LAMBERT Organization [employer] Address Unknown Phone Unavailable Allergies, Adverse Reactions, [...] Gastroenteritis, viral, acute 008.8 Resolved Martha Montejo UTILIZATION MANAGER Intestinal infection due to other organism, not elsewhere classified Bronchitis 490 Resolved Hector oLve MD Bronchitis, not specified as acute or [...] employment physical examination V70.0 Active Manish Castrejon UTILIZATION MANAGER Routine general medical examination at a health care facility Exposure to mononucleosis V01.79 Active Manish Castrejon UTILIZATION MANAGER Contact with or exposure to other [...] every 12 hours for 10 days AMOXICILLIN 85723028394 No Longer Active Иван Mooney MD Active VITAMIN C 500 MG CHEW TAB ASCORBIC ACID 83458295896 Active Иван Mooney MD Active PREDNISONE 20 MG TAB 2 po qd x 4 days PREDNISONE 74020353077 No Longer Active Hector Love MD Active HYDROCODONE-ACETAMINOPHEN 5-325 MG TABS 1/2 to 1 po q 4 hours prn pain 11/06 HYDROCODONE-ACETAMINOPHEN 09318489191 No Longer Active Hector Love MD Active FLONASE ALLERGY RELIEF 50 MCG/ACT NASAL SUSP 2 spray each nostril daily prn allergies FLUTICASONE PROPIONATE 40885335180 Active Hector Love MD Active AUGMENTIN 875-125 MG TAB 1 po BID x 10 days AMOXICILLIN-POT CLAVULANATE 79291086212 No Longer Active Hector Love MD Active FLONASE ALLERGY RELIEF 50 MCG/ACT NASAL SUSP 2 sprays each nostril daily PRN allergies FLUTICASONE PROPIONATE 35223558361 No Longer Active Hector Love MD Active AMOXICILLIN 500 MG CAPS 1 cap by mouth three times a day AMOXICILLIN 90213392416 No Longer Active Jillina Frazell UTILIZATION MANAGER Active KEFLEX 500 MG CAP 1 tab po tid CEPHALEXIN 51936985701 No Longer Active Jillina Frazell UTILIZATION MANAGER Active AMOXICILLIN 500 MG TABS 2 tabs twice a day for 10 days AMOXICILLIN 08070878848 No Longer Active Jillina Frazell UTILIZATION MANAGER Active ZYRTEC ALLERGY 10 MG CAPS 1 po qd CETIRIZINE HCL 31131501141 Active Hector Love MD Active PROGRAF 1 MG CAPS 2 tabs po bid TACROLIMUS 17391303122 Active Hector Love MD Active ZOFRAN 4 MG TABS 1 po q6hr PRN Nausea ONDANSETRON HCL 99024984090 No Longer Active Ramona Diggs LPN Active AMOXICILLIN 500 MG CAPS 2 po BID x 10 days AMOXICILLIN 98550315961 No Longer Active Martha Montejo RADHA Active AUGMENTIN 875-125 MG TAB 1 tab by mouth twice daily with food AMOXICILLIN-POT CLAVULANATE 17001174853 No Longer Active Hector Love MD Active LEVAQUIN 500 MG TABS 1 pill by mouth daily LEVOFLOXACIN 35040987354 No Longer Active Jen Crystal MD PhD Active LISINOPRIL 5 MG TABS 1.5 tab qd LISINOPRIL 32325205875 Active Jen Crystal MD PhD Active KETOCONAZOLE 2 % CREA apply twice a day to rash KETOCONAZOLE 70179812588 No Longer Active Hector Love MD Active AUGMENTIN 875-125 MG TAB 1 tab by mouth twice daily with food AMOXICILLIN-POT CLAVULANATE 24408771493 No Longer Active Иван Mooney MD Active LOTRISONE 0.05-1 % CREAM Apply twice a day to affected area 07/19 CLOTRIMAZOLE-BETAMETHASONE 01252539091 No Longer Active Иван Mooney MD Active FEXOFENADINE HCL 180 MG TABS 1 Daily FEXOFENADINE HCL 56567378036 No Longer Active Hector Love MD Active PROGRAF 0.5 MG CAPS Take one by mouth daily with 1 mg TACROLIMUS 50962765152 No Longer Active Hector Love MD Active AMOXICILLIN 500 MG CAPS 2 po BID x 10 days AMOXICILLIN 45997710407 No Longer Active Hector Love MD Active RAPAMUNE 1 MG TABS 3 tabs in the am SIROLIMUS 63386001334 No Longer Active Hector Love MD Active AMOXICILLIN 500 MG CAPS 2 po BID x 10 days AMOXICILLIN 80996440831 No Longer Active Hector Love MD Active LORTAB 5 5-500 MG TABS 1/2 to 1 tablet by mouth every 4 hours as needed for pain HYDROCODONE-ACETAMINOPHEN 52720639498 No Longer Active Hector Love MD Active FLUTICASONE PROPIONATE 50 MCG/ACT SUSP INSTILL 2 SPRAYS IN EACH NOSTRIL Q D FLUTICASONE PROPIONATE 16085294829 No Longer Active Hector Love MD Active PROGRAF 1 MG CAPS 1 po bid TACROLIMUS 18619592173 No Longer Active Hector Love MD Active AMOXICILLIN 875 MG TABS 1 tab by mouth twice daily AMOXICILLIN 31926715603 No Longer Active Hector Love MD Active AMOXICILLIN 500 MG CAPS 2 po BID x 10 days AMOXICILLIN 79682732161 No Longer Active Hector Love MD Active AUGMENTIN 875-125 MG TAB 1 tab by mouth twice daily with food AMOXICILLIN-POT CLAVULANATE 26676985566 No Longer Active Hector Love MD Active AZITHROMYCIN 250 MG TABS 2 po qd x 1 day, then 1 po qd x 4 days AZITHROMYCIN 92020070746 No Longer Active Hector Love MD Active CETIRIZINE HCL 10 MG TABS 1 PO Q D CETIRIZINE HCL 28467715903 No Longer Active Waleska [place] Active PROGRAF 1 MG CAPS 1 po bid PROGRAF 1 MG CAPS 744238 TACROLIMUS Inactive FLUTICASONE PROPIONATE 50 MCG/ACT SUSP INSTILL 2 SPRAYS IN EACH NOSTRIL Q D FLUTICASONE PROPIONATE 50 MCG/ACT SUSP 8004155 FLUTICASONE PROPIONATE Inactive LORTAB 5 5-500 MG TABS 1/2 to 1 tablet by mouth every 4 hours as needed for pain LORTAB 5 5-500 MG TABS HYDROCODONE- ACETAMINOPHEN Inactive RAPAMUNE 1 MG TABS 3 tabs in the am RAPAMUNE 1 MG TABS 789359 SIROLIMUS Inactive PROGRAF 0.5 MG CAPS Take one by mouth daily with 1 mg PROGRAF 0.5 MG CAPS 138862 TACROLIMUS Inactive FEXOFENADINE HCL 180 MG TABS 1 Daily FEXOFENADINE HCL 180 MG TABS 930616 FEXOFENADINE HCL Inactive LOTRISONE 0.05-1 % CREAM Apply twice a day to affected area 07/19 LOTRISONE 0.05-1 % CREAM 161986 CLOTRIMAZOLE-BETAMETHASONE Inactive KETOCONAZOLE 2 % CREA apply twice a day to rash KETOCONAZOLE 2 % CREA 028007 KETOCONAZOLE Inactive AUGMENTIN 875-125 MG TAB 1 tab by mouth twice daily with food AUGMENTIN 875-125 MG TAB 305244 AMOXICILLIN-POT CLAVULANATE Inactive ZOFRAN 4 MG TABS 1 po q6hr PRN Nausea ZOFRAN 4 MG TABS 474566 ONDANSETRON HCL Inactive AMOXICILLIN 500 MG TABS 2 tabs twice a day for 10 days AMOXICILLIN 500 MG TABS 721419 AMOXICILLIN Inactive FLONASE ALLERGY RELIEF 50 MCG/ACT NASAL SUSP 2 sprays each nostril daily PRN allergies FLONASE ALLERGY RELIEF 50 MCG/ACT NASAL SUSP 1527946 FLUTICASONE PROPIONATE Inactive HYDROCODONE-ACETAMINOPHEN 5-325 MG TABS 1/2 to 1 po q 4 hours prn pain 11/06 HYDROCODONE-ACETAMINOPHEN 5-325 MG TABS 526473 HYDROCODONE- ACETAMINOPHEN Inactive AMOXICILLIN 500 MG CAPS 2 po BID x 10 days AMOXICILLIN 500 MG CAPS 611150 AMOXICILLIN Inactive AMOXICILLIN 875 MG TABS 1 tab by mouth twice daily AMOXICILLIN 875 MG TABS 628595 AMOXICILLIN Inactive AMOXICILLIN 500 MG CAPS 2 po BID x 10 days AMOXICILLIN 500 MG CAPS 188944 AMOXICILLIN Inactive AMOXICILLIN 500 MG CAPS 2 po BID x 10 days AMOXICILLIN 500 MG CAPS 695192 AMOXICILLIN Inactive AUGMENTIN 875-125 MG TAB 1 tab by mouth twice daily with food AUGMENTIN 875-125 MG TAB 226655 AMOXICILLIN-POT CLAVULANATE Inactive LEVAQUIN 500 MG TABS 1 pill by mouth daily LEVAQUIN 500 MG TABS 844301 LEVOFLOXACIN Inactive AMOXICILLIN 500 MG CAPS 2 po BID x 10 days AMOXICILLIN 500 MG CAPS 964896 AMOXICILLIN Inactive AMOXICILLIN 500 MG CAPS 1 cap by mouth three times a day AMOXICILLIN 500 MG CAPS 338589 AMOXICILLIN Inactive AUGMENTIN 875-125 MG TAB 1 po BID x 10 days AUGMENTIN 875-125 MG TAB 344750 AMOXICILLIN-POT CLAVULANATE Inactive PREDNISONE 20 MG TAB 2 po qd x 4 days PREDNISONE 20 MG TAB 283744 PREDNISONE Inactive AMOXICILLIN 500 MG TABS Take two tablets by mouth every 12 hours for 10 days AMOXICILLIN 500 MG TABS 750189 AMOXICILLIN Inactive Advance Directives Directive Description Start Date PERMISSION TO SHARE Immunizations Vaccine Administration Date Value Standard Description Seasonal influenza vaccine, injectable, preservative free, for > 3 years old ( Afluria, FluLaval, Fluzone, Fluvirin, Fluarix, Agriflu(>=18 yo)) Fluzone preservative free (>=3 yrs.) [VJW552] Influenza, seasonal, injectable, preservative free Adacel (Tetanus, reduced Diphtheria, and acellular Pertussis Immunization) Adacel [UIH551] tetanus toxoid, reduced diphtheria toxoid, and acellular [...] 0.76-1.46 Encounters Code Encounter Date Provider Facility CPT-15451 Level 3 Est. Patient 16:06:03 CDT Manish Castrejon [facility] CPT-35296 Level 3 Est. Patient 09:57:24 CDT Manish Castrejon [facility] CPT-97737 Level 3 Est. Patient 16:31:04 CDT Иван Mooney MD [facility] CPT-10118 Level 4 Est. Patient 12:02:18 CDT Hector Love MD [facility] CPT-62984 Level 3 Est. Patient 16:14:45 CDT Hector Love MD [facility] CPT-85653 Level 3 Est. Patient 16:53:35 CDT Иван Mooney MD [facility] CPT-94927 Level 3 Est. Patient 15:57:13 CDT Martha Montejo [facility] CPT-53168 Level 3 Est. Patient 14:30:47 INTERNETWORKING TECHNICIAN Hector Love MD [facility] CPT-45899 Level 3 Est. Patient 14:50:45 CDT Hector Love MD [facility] CPT-45353 Level 3 Est. Patient 21:17:30 CDT Jen Crystal MD, PhD [facility] CPT-70711 Level 3 Est. Patient 09:32:55 CDT Hector Love MD [facility] CPT-87028 Level 3 Est. Patient 15:11:08 INTERNETWORKING TECHNICIAN Иван Mooney MD [facility] CPT-32166 Level 3 Est. Patient 16:38:53 INTERNETWORKING TECHNICIAN Hector Love MD [facility] CPT-96790 Level 3 Est. Patient 15:46:05 CDT Hector Love MD [facility] CPT-36026 Level 3 Est. Patient 13:59:39 CDT Hector Love MD [facility] CPT-50038 Level 3 Est. Patient 14:44:46 INTERNETWORKING TECHNICIAN Hector Love MD [facility] CPT-51963 Level 3 Est. Patient 17:12:27 CDT Hector Love MD [facility] CPT-86364 Level 3 Est. Patient 15:30:32 CDT Hector Love MD [facility] CPT-24057 Level 3 Est. Patient 14:24:52 CDT Иван Mooney MD [facility] CPT-88786 Level 3 Est. Patient 14:08:38 INTERNETWORKING TECHNICIAN Hector Love MD [facility] Procedures Code Procedure Name Date Entry Date Standard Description CPT-69734 Venipuncture Draw Fee 16:18:26 CDT CPT-76521 TB Skin Test 09:57:25 CDT CPT-000 Give Appropriate Flu Vaccine 16:22:23 INTERNETWORKING TECHNICIAN CPT-22216 Free T4 - LAB USE ONLY 11:38:58 CDT CPT-04089 TSH - LAB USE ONLY 11:38:58 CDT CPT-14980 Venipuncture Draw Fee 11:38:58 CDT CPT-46710 Fluzone Quadrivalent Intramuscular Suspension 0.5 ML 16: 12:26 INTERNETWORKING TECHNICIAN CPT-54900 Immunization Single Admin 16:12:26 INTERNETWORKING TECHNICIAN CPT-J0561 Bicillin LA 1,200,000 u (PCN G Benzathine) 16:40:23 CDT CPT-36419 Abx/Therapy Injection 16:40:22 CDT CPT-J0561 Bicillin LA 1,200,000 u (PCN G Benzathine) 16:15:35 CDT CPT-55438 Immunization Single Admin 16:11:28 INTERNETWORKING TECHNICIAN CPT-76655 Fluzone Quadrivalent Intramuscular Suspension 0.5 ML 16: 11:28 INTERNETWORKING TECHNICIAN CPT-46755 Administration single or combination vaccine inc oral 13 :57:23 CDT CPT-30721 Menactra Intramuscular Injectable 13:57:23 CDT CPT-66138 First Vx Component - Ix admin via ID IM or jet inj without physician counseling 16:42:17 INTERNETWORKING TECHNICIAN CPT-75346 Fluzone preservative free (>=3 yrs.) 16:42:17 INTERNETWORKING TECHNICIAN 06/03 CPT-82709 Venipuncture Draw Fee 16:29:01 CDT CPT-65629 Chest 2V Frontal and Lat 16:23:56 CDT CPT-04969 Administration single or combination vaccine inc oral 13 :39:17 INTERNETWORKING TECHNICIAN CPT-03567 Tdap 13:39:17 INTERNETWORKING TECHNICIAN
--- OUTSIDE RECORDS SUMMARY | 2017-11-06 02:11 | XMS REPORT | Clinical Summary ---
Author Author Admin, LAMBERT Organization [facility] Address Unknown Phone Unavailable Allergies, Adverse [...] 2 po BID x 10 days AMOXICILLIN 60774732147 No Longer Active Martha Montejo VICE PRESIDENT OF SOFTWARE DEVELOPMENT Active ZOFRAN 4 MG TABS 1 po q6hr PRN Nausea ONDANSETRON HCL 41725897276 Active Hector Love MD Active AUGMENTIN 875-125 MG TAB 1 tab by mouth twice daily with food AMOXICILLIN-POT CLAVULANATE 02759930389 No Longer Active Hector Love MD Active FLONASE 50 MCG/ACT SUSP 2 puffs in each nostril daily PRN Allergies FLUTICASONE PROPIONATE 79274589377 Active Hector Love MD Active LEVAQUIN 500 MG TABS 1 pill by mouth daily LEVOFLOXACIN 75174796576 No Longer Active Jen Crystal MD PhD Active LISINOPRIL 5 MG TABS 1.5 tab qd LISINOPRIL 22659309512 Active Jen Crystal MD PhD Active KETOCONAZOLE 2 % CREA apply twice a day to rash KETOCONAZOLE 88632595187 No Longer Active Hector Love MD Active AUGMENTIN 875-125 MG TAB 1 tab by mouth twice daily with food AMOXICILLIN-POT CLAVULANATE 60480502561 No Longer Active Иван Mooney MD Active LOTRISONE 0.05-1 % CREAM Apply twice a day to affected area 07/19 CLOTRIMAZOLE-BETAMETHASONE 85861276912 No Longer Active Иван Mooney MD Active PROGRAF 1 MG CAPS 4 tabs po bid TACROLIMUS 65264773152 Active Hector Love MD Active FEXOFENADINE HCL 180 MG TABS 1 Daily FEXOFENADINE HCL 75913776776 No Longer Active Hector Love MD Active PROGRAF 0.5 MG CAPS Take one by mouth daily with 1 mg TACROLIMUS 54383223435 No Longer Active Hector Love MD Active AMOXICILLIN 500 MG CAPS 2 po BID x 10 days AMOXICILLIN 62001273245 No Longer Active Hector Love MD Active RAPAMUNE 1 MG TABS 3 tabs in the am SIROLIMUS 31606982765 No Longer Active Hector Love MD Active AMOXICILLIN 500 MG CAPS 2 po BID x 10 days AMOXICILLIN 51275907231 No Longer Active Hector Love MD Active LORTAB 5 5-500 MG TABS 1/2 to 1 tablet by mouth every 4 hours as needed for pain HYDROCODONE-ACETAMINOPHEN 25513428649 No Longer Active Hector Love MD Active FLUTICASONE PROPIONATE 50 MCG/ACT SUSP INSTILL 2 SPRAYS IN EACH NOSTRIL Q D FLUTICASONE PROPIONATE 32974177676 No Longer Active Hector Love MD Active PROGRAF 1 MG CAPS 1 po bid TACROLIMUS 55358821385 No Longer Active Hector Love MD Active AMOXICILLIN 875 MG TABS 1 tab by mouth twice daily AMOXICILLIN 26770032936 No Longer Active Hector Love MD Active AMOXICILLIN 500 MG CAPS 2 po BID x 10 days AMOXICILLIN 90915036690 No Longer Active Hector Love MD Active AUGMENTIN 875-125 MG TAB 1 tab by mouth twice daily with food AMOXICILLIN-POT CLAVULANATE 40334424082 No Longer Active Hector Love MD Active AZITHROMYCIN 250 MG TABS 2 po qd x 1 day, then 1 po qd x 4 days AZITHROMYCIN 69203648597 No Longer Active Hector Love MD Active CETIRIZINE HCL 10 MG TABS 1 PO Q D CETIRIZINE HCL 16777569649 No Longer Active Waleska Levy Active PROGRAF 1 MG CAPS 1 po bid PROGRAF 1 MG CAPS 487168 TACROLIMUS Inactive FLUTICASONE PROPIONATE 50 MCG/ACT SUSP INSTILL 2 SPRAYS IN EACH NOSTRIL Q D FLUTICASONE PROPIONATE 50 MCG/ACT SUSP 153372 FLUTICASONE PROPIONATE Inactive LORTAB 5 5-500 MG TABS 1/2 to 1 tablet by mouth every 4 hours as needed for pain LORTAB 5 5-500 MG TABS HYDROCODONE- ACETAMINOPHEN Inactive RAPAMUNE 1 MG TABS 3 tabs in the am RAPAMUNE 1 MG TABS 664351 SIROLIMUS Inactive PROGRAF 0.5 MG CAPS Take one by mouth daily with 1 mg PROGRAF 0.5 MG CAPS 809417 TACROLIMUS Inactive FEXOFENADINE HCL 180 MG TABS 1 Daily FEXOFENADINE HCL 180 MG TABS 915979 FEXOFENADINE HCL Inactive LOTRISONE 0.05-1 % CREAM Apply twice a day to affected area 07/19 LOTRISONE 0.05-1 % CREAM 348418 CLOTRIMAZOLE-BETAMETHASONE Inactive KETOCONAZOLE 2 % CREA apply twice a day to rash KETOCONAZOLE 2 % CREA 702411 KETOCONAZOLE Inactive AUGMENTIN 875-125 MG TAB 1 tab by mouth twice daily with food AUGMENTIN 875-125 MG TAB 961126 AMOXICILLIN-POT CLAVULANATE Inactive AMOXICILLIN 500 MG CAPS 2 po BID x 10 days AMOXICILLIN 500 MG CAPS 971454 AMOXICILLIN Inactive AMOXICILLIN 875 MG TABS 1 tab by mouth twice daily AMOXICILLIN 875 MG TABS 994262 AMOXICILLIN Inactive AMOXICILLIN 500 MG CAPS 2 po BID x 10 days AMOXICILLIN 500 MG CAPS 872272 AMOXICILLIN Inactive AMOXICILLIN 500 MG CAPS 2 po BID x 10 days AMOXICILLIN 500 MG CAPS 025516 AMOXICILLIN Inactive AUGMENTIN 875-125 MG TAB 1 tab by mouth twice daily with food AUGMENTIN 875-125 MG TAB 435615 AMOXICILLIN-POT CLAVULANATE Inactive LEVAQUIN 500 MG TABS 1 pill by mouth daily LEVAQUIN 500 MG TABS 119097 LEVOFLOXACIN Inactive AMOXICILLIN 500 MG CAPS 2 po BID x 10 days AMOXICILLIN 500 MG CAPS 965137 AMOXICILLIN Inactive Advance Directives Directive Description Start Date PERMISSION TO SHARE Immunizations Vaccine Administration Date Value Standard Description Seasonal influenza vaccine, injectable, preservative free, for > 3 years old ( Afluria, FluLaval, Fluzone, Fluvirin, Fluarix, Agriflu(>=18 yo)) Fluzone preservative free (>=3 yrs.) [[id number]] Influenza, seasonal, injectable, preservative free Adacel (Tetanus, reduced Diphtheria, and acellular Pertussis Immunization) Adacel [ZBW603] tetanus toxoid, reduced diphtheria toxoid, and acellular [...] U/L Chart Maintenance: Outside labs entered on [employer] - Hematology leukocyte count, blood 7.9 10*3/mm3 hemoglobin, blood 14.8 g/dL platelet count 223 10*3/mm3 leukocyte count, blood 8.6 10*3/mm3 hemoglobin, blood 15.0 g/dL platelet count 244 10*3/mm3 Lab Report: CBC W/DIFF, Comp. Metabolic Panel, Thyroid Stimulating Hormo ... - Chemistry protein, total urine random Negative mg/dL Negative sodium, serum 139 mmol/L 914-998 9839/07/18 potassium, serum 4.5 mmol/L 3.5-5.2 chloride, serum [...] Negative Encounters Code Encounter Date Provider Facility CPT-40898 Level 3 Est. Patient 15:57:13 CDT Martha Montejo APRN [facility] CPT-84065 Level 3 Est. Patient 14:30:47 TRAIN STATION AGENT Hector Love MD [facility] CPT-24298 Level 3 Est. Patient 14:50:45 CDT Hector Love MD [facility] CPT-98611 Level 3 Est. Patient 21:17:30 CDT Jen Crystal MD, PhD [facility] CPT-76283 Level 3 Est. Patient 09:32:55 CDT Hector Love MD [facility] CPT-08865 Level 3 Est. Patient 15:11:08 TRAIN STATION AGENT Иван Mooney MD [facility] CPT-77009 Level 3 Est. Patient 16:38:53 TRAIN STATION AGENT Hector Love MD [facility] CPT-25825 Level 3 Est. Patient 15:46:05 CDT Hector Love MD [facility] CPT-35084 Level 3 Est. Patient 13:59:39 CDT Hector Love MD [facility] CPT-63442 Level 3 Est. Patient 14:44:46 TRAIN STATION AGENT Hector Love MD [facility] CPT-89158 Level 3 Est. Patient 17:12:27 CDT Hector Love MD [facility] CPT-07646 Level 3 Est. Patient 15:30:32 CDT Hector Love MD [facility] CPT-71475 Level 3 Est. Patient 14:24:52 CDT Иван Mooney MD [facility] CPT-69743 Level 3 Est. Patient 14:08:38 TRAIN STATION AGENT Hector Love MD [facility] Procedures Code Procedure Name Date Entry Date Standard Description CPT-44701 Immunization Single Admin 16:11:28 TRAIN STATION AGENT CPT-25097 Fluzone Quadrivalent Intramuscular Suspension 0.5 ML 16: 11:28 TRAIN STATION AGENT CPT-11387 Administration single or combination vaccine inc oral 13 :57:23 CDT CPT-78838 Menactra Intramuscular Injectable 13:57:23 CDT CPT-36175 First Vx Component - Ix admin via ID IM or jet inj without physician counseling 16:42:17 TRAIN STATION AGENT CPT-32095 Fluzone preservative free (>=3 yrs.) 16:42:17 TRAIN STATION AGENT 06/03 CPT-29668 Venipuncture Draw Fee 16:29:01 CDT CPT-96548 Chest 2V Frontal and Lat 16:23:56 CDT CPT-18878 Administration single or combination vaccine inc oral 13 :39:17 TRAIN STATION AGENT CPT-89243 Tdap 13:39:17 TRAIN STATION AGENT
--- OUTSIDE RECORDS SUMMARY | 2017-11-06 02:12 | XMS REPORT | Clinical Summary ---
Author Author Admin, LAMBERT Organization [facility] Address Unknown Phone Unavailable Allergies, Adverse [...] twice a day for 10 days AMOXICILLIN 26049923011 Active Иван Mooney MD Active ZOFRAN 4 MG TABS 1 po q6hr PRN Nausea ONDANSETRON HCL 92082417369 No Longer Active Ramona Diggs LPN Active AMOXICILLIN 500 MG CAPS 2 po BID x 10 days AMOXICILLIN 68953874955 No Longer Active Martha Montejo APRN Active AUGMENTIN 875-125 MG TAB 1 tab by mouth twice daily with food AMOXICILLIN-POT CLAVULANATE 01901516636 No Longer Active Hector Love MD Active FLONASE 50 MCG/ACT SUSP 2 puffs in each nostril daily PRN Allergies FLUTICASONE PROPIONATE 21740120166 Active Hector Love MD Active LEVAQUIN 500 MG TABS 1 pill by mouth daily LEVOFLOXACIN 41717411742 No Longer Active Jen Crystal MD PhD Active LISINOPRIL 5 MG TABS 1.5 tab qd LISINOPRIL 83675118473 Active Jen Crystal MD PhD Active KETOCONAZOLE 2 % CREA apply twice a day to rash KETOCONAZOLE 89011301622 No Longer Active Hector Love MD Active AUGMENTIN 875-125 MG TAB 1 tab by mouth twice daily with food AMOXICILLIN-POT CLAVULANATE 20228835343 No Longer Active Иван Mooney MD Active LOTRISONE 0.05-1 % CREAM Apply twice a day to affected area 07/19 CLOTRIMAZOLE-BETAMETHASONE 38767352433 No Longer Active Иван Mooney MD Active PROGRAF 1 MG CAPS 4 tabs po bid TACROLIMUS 12156518202 Active Hector Love MD Active FEXOFENADINE HCL 180 MG TABS 1 Daily FEXOFENADINE HCL 26959225594 No Longer Active Hector Love MD Active PROGRAF 0.5 MG CAPS Take one by mouth daily with 1 mg TACROLIMUS 25876273453 No Longer Active Hector Love MD Active AMOXICILLIN 500 MG CAPS 2 po BID x 10 days AMOXICILLIN 57218587366 No Longer Active Hector Love MD Active RAPAMUNE 1 MG TABS 3 tabs in the am SIROLIMUS 37841013099 No Longer Active Hector Love MD Active AMOXICILLIN 500 MG CAPS 2 po BID x 10 days AMOXICILLIN 39291018972 No Longer Active Hector Love MD Active LORTAB 5 5-500 MG TABS 1/2 to 1 tablet by mouth every 4 hours as needed for pain HYDROCODONE-ACETAMINOPHEN 38196169502 No Longer Active Hector Love MD Active FLUTICASONE PROPIONATE 50 MCG/ACT SUSP INSTILL 2 SPRAYS IN EACH NOSTRIL Q D FLUTICASONE PROPIONATE 58535357808 No Longer Active Hector Love MD Active PROGRAF 1 MG CAPS 1 po bid TACROLIMUS 90039493104 No Longer Active Hector Love MD Active AMOXICILLIN 875 MG TABS 1 tab by mouth twice daily AMOXICILLIN 22310171214 No Longer Active Hector Love MD Active AMOXICILLIN 500 MG CAPS 2 po BID x 10 days AMOXICILLIN 82654977770 No Longer Active Hector Love MD Active AUGMENTIN 875-125 MG TAB 1 tab by mouth twice daily with food AMOXICILLIN-POT CLAVULANATE 41631505675 No Longer Active Hector Love MD Active AZITHROMYCIN 250 MG TABS 2 po qd x 1 day, then 1 po qd x 4 days AZITHROMYCIN 69773636125 No Longer Active Hector Love MD Active CETIRIZINE HCL 10 MG TABS 1 PO Q D CETIRIZINE HCL 93095412070 No Longer Active Waleska [place] Active PROGRAF 1 MG CAPS 1 po bid PROGRAF 1 MG CAPS 330938 TACROLIMUS Inactive FLUTICASONE PROPIONATE 50 MCG/ACT SUSP INSTILL 2 SPRAYS IN EACH NOSTRIL Q D FLUTICASONE PROPIONATE 50 MCG/ACT SUSP 077957 FLUTICASONE PROPIONATE Inactive LORTAB 5 5-500 MG TABS 1/2 to 1 tablet by mouth every 4 hours as needed for pain LORTAB 5 5-500 MG TABS HYDROCODONE- ACETAMINOPHEN Inactive RAPAMUNE 1 MG TABS 3 tabs in the am RAPAMUNE 1 MG TABS 014613 SIROLIMUS Inactive PROGRAF 0.5 MG CAPS Take one by mouth daily with 1 mg PROGRAF 0.5 MG CAPS 550966 TACROLIMUS Inactive FEXOFENADINE HCL 180 MG TABS 1 Daily FEXOFENADINE HCL 180 MG TABS 839505 FEXOFENADINE HCL Inactive LOTRISONE 0.05-1 % CREAM Apply twice a day to affected area 07/19 LOTRISONE 0.05-1 % CREAM 164290 CLOTRIMAZOLE-BETAMETHASONE Inactive KETOCONAZOLE 2 % CREA apply twice a day to rash KETOCONAZOLE 2 % CREA 842271 KETOCONAZOLE Inactive AUGMENTIN 875-125 MG TAB 1 tab by mouth twice daily with food AUGMENTIN 875-125 MG TAB 791481 AMOXICILLIN-POT CLAVULANATE Inactive ZOFRAN 4 MG TABS 1 po q6hr PRN Nausea ZOFRAN 4 MG TABS 994205 ONDANSETRON HCL Inactive AMOXICILLIN 500 MG CAPS 2 po BID x 10 days AMOXICILLIN 500 MG CAPS 695636 AMOXICILLIN Inactive AMOXICILLIN 875 MG TABS 1 tab by mouth twice daily AMOXICILLIN 875 MG TABS 538371 AMOXICILLIN Inactive AMOXICILLIN 500 MG CAPS 2 po BID x 10 days AMOXICILLIN 500 MG CAPS 317805 AMOXICILLIN Inactive AMOXICILLIN 500 MG CAPS 2 po BID x 10 days AMOXICILLIN 500 MG CAPS 126912 AMOXICILLIN Inactive AUGMENTIN 875-125 MG TAB 1 tab by mouth twice daily with food AUGMENTIN 875-125 MG TAB 479104 AMOXICILLIN-POT CLAVULANATE Inactive LEVAQUIN 500 MG TABS 1 pill by mouth daily LEVAQUIN 500 MG TABS 502601 LEVOFLOXACIN Inactive AMOXICILLIN 500 MG CAPS 2 po BID x 10 days AMOXICILLIN 500 MG CAPS 832827 AMOXICILLIN Inactive Advance Directives Directive Description Start Date PERMISSION TO SHARE Immunizations Vaccine Administration Date Value Standard Description Seasonal influenza vaccine, injectable, preservative free, for > 3 years old ( Afluria, FluLaval, Fluzone, Fluvirin, Fluarix, Agriflu(>=18 yo)) Fluzone preservative free (>=3 yrs.) [[id number]] Influenza, seasonal, injectable, preservative free Adacel (Tetanus, reduced Diphtheria, and acellular Pertussis Immunization) Adacel [LUF614] tetanus toxoid, reduced diphtheria toxoid, and acellular [...] Negative Encounters Code Encounter Date Provider Facility CPT-46751 Level 3 Est. Patient 16:53:35 CDT Иван Mooney MD [facility] CPT-40491 Level 3 Est. Patient 15:57:13 CDT Martha Montejo RADHA [facility] CPT-53056 Level 3 Est. Patient 14:30:47 DIRECTOR DANCE Hector Love MD [facility] CPT-49971 Level 3 Est. Patient 14:50:45 CDT Hector Love MD [facility] CPT-11004 Level 3 Est. Patient 21:17:30 CDT Jen Crystal MD [facility] CPT-53948 Level 3 Est. Patient 09:32:55 CDT Hector Love MD [facility] CPT-25560 Level 3 Est. Patient 15:11:08 DIRECTOR DANCE Иван Mooney MD [facility] CPT-49899 Level 3 Est. Patient 16:38:53 DIRECTOR DANCE Hector Love MD [facility] CPT-95289 Level 3 Est. Patient 15:46:05 CDT Hecotr Love MD [facility] CPT-48685 Level 3 Est. Patient 13:59:39 CDT Hector Love MD [facility] CPT-33062 Level 3 Est. Patient 14:44:46 DIRECTOR DANCE Hector Love MD [facility] CPT-89793 Level 3 Est. Patient 17:12:27 CDT Hector Love MD [facility] CPT-90553 Level 3 Est. Patient 15:30:32 CDT Hector Love MD [facility] CPT-43750 Level 3 Est. Patient 14:24:52 CDT Иван Mooney MD [facility] CPT-25996 Level 3 Est. Patient 14:08:38 DIRECTOR DANCE Hector Love MD [facility] Procedures Code Procedure Name Date Entry Date Standard Description CPT-68231 Immunization Single Admin 16:11:28 DIRECTOR DANCE CPT-45693 Fluzone Quadrivalent Intramuscular Suspension 0.5 ML 16: 11:28 DIRECTOR DANCE CPT-66169 Administration single or combination vaccine inc oral 13 :57:23 CDT CPT-61309 Menactra Intramuscular Injectable 13:57:23 CDT CPT-62027 First Vx Component - Ix admin via ID IM or jet inj without physician counseling 16:42:17 DIRECTOR DANCE CPT-20966 Fluzone preservative free (>=3 yrs.) 16:42:17 DIRECTOR DANCE 06/03 CPT-50032 Venipuncture Draw Fee 16:29:01 CDT CPT-76219 Chest 2V Frontal and Lat 16:23:56 CDT CPT-65594 Administration single or combination vaccine inc oral 13 :39:17 DIRECTOR DANCE CPT-17262 Tdap 13:39:17 DIRECTOR DANCE
--- OUTSIDE RECORDS SUMMARY | 2017-11-06 02:13 | XMS REPORT | Clinical Summary ---
Author Author Admin, QIE Organization [facility] Address Unknown Phone Unavailable Allergies, Adverse [...] care facility Fatigue 780.79 Active Manish Castrejon INTEGRATION AIDE Other malaise and fatigue Body Mass Index 34.0-34.9 Adult Active Manish Castrejon INTEGRATION AIDE Body Mass Index 34.0-34.9, adult HYPERTENSION ICD-401.9 [...] Gastroenteritis, viral, acute ICD-008.8 Inactive Martha Montejo INTEGRATION AIDE Bronchitis ICD-490 Inactive Hector Love MD 2014 [...] MG ORAL CAPSULE 2 po BID TACROLIMUS 47488141555 Active Hector Love MD Active CETIRIZINE HCL 10 MG ORAL TABLET 1 po qd PRN Allergies CETIRIZINE HCL 94626428499 Active Hector Love MD Active LISINOPRIL 5 MG ORAL TABLET 1.5 po qd LISINOPRIL 88337949704 Vivek Love MD Active FLUTICASONE PROPIONATE 50 MCG/ACT NASAL SUSPENSION 2 sprays/nostril qd PRN Congestion/Allergies FLUTICASONE PROPIONATE 59650093969 Active Hector Love MD Active VITAMIN C 500 MG ORAL TABLET CHEWABLE ASCORBIC ACID 12931089673 No Longer Active Hector Love MD Active PREDNISONE 20 MG ORAL TABLET 1 tablet daily x 2 days PREDNISONE 35546292917 No Longer Active Manish Castrejon APRN Active AMOXICILLIN 500 MG ORAL TABLET Take two tablets by mouth every 12 hours for 10 days AMOXICILLIN 19733964175 No Longer Active Иван Mooney MD Active PREDNISONE 20 MG ORAL TABLET 2 po qd x 4 days PREDNISONE 38894867648 No Longer Active Hector Love MD Active HYDROCODONE-ACETAMINOPHEN 5-325 MG ORAL TABLET 1/2 to 1 po q 4 hours prn pain HYDROCODONE-ACETAMINOPHEN 98450123503 No Longer Active Hector Love MD Active AUGMENTIN 875-125 MG ORAL TABLET 1 po BID x 10 days AMOXICILLIN-POT CLAVULANATE 43289438127 No Longer Active Hector Love MD Active FLONASE ALLERGY RELIEF 50 MCG/ACT NASAL SUSPENSION 2 sprays each nostril daily PRN allergies FLUTICASONE PROPIONATE 83893768426 No Longer Active Hector Love MD Active AMOXICILLIN 500 MG ORAL CAPSULE 1 cap by mouth three times a day AMOXICILLIN 77215087423 No Longer Active Manish Castrejon APRN Active KEFLEX 500 MG ORAL CAPSULE 1 tab po tid CEPHALEXIN 31186887330 No Longer Active Jillina Fradebora GARCIA Active AMOXICILLIN 500 MG ORAL TABLET 2 tabs twice a day for 10 days AMOXICILLIN 56243531186 No Longer Active Jilldenise Fradebora GARCIA Active ZOFRAN 4 MG ORAL TABLET 1 po q6hr PRN Nausea ONDANSETRON HCL 38757773780 No Longer Active Ramona Diggs LPN Active AMOXICILLIN 500 MG ORAL CAPSULE 2 po BID x 10 days AMOXICILLIN 62042392955 No Longer Active Martha Montejo APRN Active AUGMENTIN 875-125 MG ORAL TABLET 1 tab by mouth twice daily with food AMOXICILLIN-POT CLAVULANATE 19027938991 No Longer Active Hector Love MD Active LEVAQUIN 500 MG ORAL TABLET 1 pill by mouth daily LEVOFLOXACIN 19852958683 No Longer Active Jne Crystal MD PhD Active KETOCONAZOLE 2 % EXTERNAL CREAM apply twice a day to rash KETOCONAZOLE 80477298979 No Longer Active Hector Love MD Active AUGMENTIN 875-125 MG ORAL TABLET 1 tab by mouth twice daily with food AMOXICILLIN-POT CLAVULANATE 03322439300 No Longer Active Иван Mooney MD Active LOTRISONE 1-0.05 % EXTERNAL CREAM Apply twice a day to affected area CLOTRIMAZOLE-BETAMETHASONE 81867092590 No Longer Active Иван Mooney MD Active FEXOFENADINE HCL 180 MG ORAL TABLET 1 Daily FEXOFENADINE HCL 71967357085 No Longer Active Hector Love MD Active PROGRAF 0.5 MG ORAL CAPSULE Take one by mouth daily with 1 mg TACROLIMUS 75553573840 No Longer Active Hector Love MD Active AMOXICILLIN 500 MG ORAL CAPSULE 2 po BID x 10 days AMOXICILLIN 77550580254 No Longer Active Hector Love MD Active RAPAMUNE 1 MG ORAL TABLET 3 tabs in the am SIROLIMUS 24691103183 No Longer Active Hector Love MD Active AMOXICILLIN 500 MG ORAL CAPSULE 2 po BID x 10 days AMOXICILLIN 43980882029 No Longer Active Hector Love MD Active LORTAB 5-500 MG ORAL TABLET 1/2 to 1 tablet by mouth every 4 hours as needed for pain HYDROCODONE-ACETAMINOPHEN 45970046357 No Longer Active Hector Love MD Active FLUTICASONE PROPIONATE 50 MCG/ACT NASAL SUSPENSION INSTILL 2 SPRAYS IN EACH NOSTRIL Q D FLUTICASONE PROPIONATE 75226077192 No Longer Active Hector Love MD Active PROGRAF 1 MG ORAL CAPSULE 1 po bid TACROLIMUS 06401325704 No Longer Active Hector Love MD Active AMOXICILLIN 875 MG ORAL TABLET 1 tab by mouth twice daily AMOXICILLIN 38696445103 No Longer Active Hector Love MD Active AMOXICILLIN 500 MG ORAL CAPSULE 2 po BID x 10 days AMOXICILLIN 72432610111 No Longer Active Hector Love MD Active AUGMENTIN 875-125 MG ORAL TABLET 1 tab by mouth twice daily with food AMOXICILLIN-POT CLAVULANATE 35612896783 No Longer Active Hector Love MD Active AZITHROMYCIN 250 MG ORAL TABLET 2 po qd x 1 day, then 1 po qd x 4 days 06/19 AZITHROMYCIN 42140784787 No Longer Active Hector Love MD Active CETIRIZINE HCL 10 MG ORAL TABLET 1 PO Q D CETIRIZINE HCL 60206842938 No Longer Active Waleska Hewitt Active PROGRAF 1 MG ORAL CAPSULE 1 po bid PROGRAF 1 MG ORAL CAPSULE 128625 TACROLIMUS Inactive FLUTICASONE PROPIONATE 50 MCG/ACT NASAL SUSPENSION INSTILL 2 SPRAYS IN EACH NOSTRIL Q D FLUTICASONE PROPIONATE 50 MCG/ACT NASAL SUSPENSION 3404490 FLUTICASONE PROPIONATE Inactive LORTAB 5-500 MG ORAL TABLET 1/2 to 1 tablet by mouth every 4 hours as needed for pain LORTAB 5-500 MG ORAL TABLET HYDROCODONE- ACETAMINOPHEN Inactive RAPAMUNE 1 MG ORAL TABLET 3 tabs in the am RAPAMUNE 1 MG ORAL TABLET 782374 SIROLIMUS Inactive PROGRAF 0.5 MG ORAL CAPSULE Take one by mouth daily with 1 mg PROGRAF 0.5 MG ORAL CAPSULE 287083 TACROLIMUS Inactive FEXOFENADINE HCL 180 MG ORAL TABLET 1 Daily FEXOFENADINE HCL 180 MG ORAL TABLET 973522 FEXOFENADINE HCL Inactive LOTRISONE 1-0.05 % EXTERNAL CREAM Apply twice a day to affected area LOTRISONE 1-0.05 % EXTERNAL CREAM 575223 CLOTRIMAZOLE- BETAMETHASONE Inactive KETOCONAZOLE 2 % EXTERNAL CREAM apply twice a day to rash KETOCONAZOLE 2 % EXTERNAL CREAM 075117 KETOCONAZOLE Inactive AUGMENTIN 875-125 MG ORAL TABLET 1 tab by mouth twice daily with food AUGMENTIN 875-125 MG ORAL TABLET 603997 AMOXICILLIN-POT CLAVULANATE Inactive ZOFRAN 4 MG ORAL TABLET 1 po q6hr PRN Nausea ZOFRAN 4 MG ORAL TABLET 608846 ONDANSETRON HCL Inactive AMOXICILLIN 500 MG ORAL TABLET 2 tabs twice a day for 10 days AMOXICILLIN 500 MG ORAL TABLET 059051 AMOXICILLIN Inactive FLONASE ALLERGY RELIEF 50 MCG/ACT NASAL SUSPENSION 2 sprays each nostril daily PRN allergies FLONASE ALLERGY RELIEF 50 MCG/ACT NASAL SUSPENSION 6890333 FLUTICASONE PROPIONATE Inactive HYDROCODONE-ACETAMINOPHEN 5-325 MG ORAL TABLET 1/2 to 1 po q 4 hours prn pain HYDROCODONE-ACETAMINOPHEN 5-325 MG ORAL TABLET 285289 HYDROCODONE-ACETAMINOPHEN Inactive PREDNISONE 20 MG ORAL TABLET 1 tablet daily x 2 days PREDNISONE 20 MG ORAL TABLET 717601 PREDNISONE Inactive VITAMIN C 500 MG ORAL TABLET CHEWABLE VITAMIN C 500 MG ORAL TABLET CHEWABLE ASCORBIC ACID Inactive AMOXICILLIN 500 MG ORAL CAPSULE 2 po BID x 10 days AMOXICILLIN 500 MG ORAL CAPSULE 070883 AMOXICILLIN Inactive AMOXICILLIN 875 MG ORAL TABLET 1 tab by mouth twice daily AMOXICILLIN 875 MG ORAL TABLET 655719 AMOXICILLIN Inactive AMOXICILLIN 500 MG ORAL CAPSULE 2 po BID x 10 days AMOXICILLIN 500 MG ORAL CAPSULE 003434 AMOXICILLIN Inactive AMOXICILLIN 500 MG ORAL CAPSULE 2 po BID x 10 days AMOXICILLIN 500 MG ORAL CAPSULE 243499 AMOXICILLIN Inactive AUGMENTIN 875-125 MG ORAL TABLET 1 tab by mouth twice daily with food AUGMENTIN 875-125 MG ORAL TABLET 741960 AMOXICILLIN-POT CLAVULANATE Inactive LEVAQUIN 500 MG ORAL TABLET 1 pill by mouth daily LEVAQUIN 500 MG ORAL TABLET 864091 LEVOFLOXACIN Inactive AMOXICILLIN 500 MG ORAL CAPSULE 2 po BID x 10 days AMOXICILLIN 500 MG ORAL CAPSULE 183727 AMOXICILLIN Inactive AMOXICILLIN 500 MG ORAL CAPSULE 1 cap by mouth three times a day AMOXICILLIN 500 MG ORAL CAPSULE 338574 AMOXICILLIN Inactive AUGMENTIN 875-125 MG ORAL TABLET 1 po BID x 10 days AUGMENTIN 875-125 MG ORAL TABLET 162821 AMOXICILLIN-POT CLAVULANATE Inactive PREDNISONE 20 MG ORAL TABLET 2 po qd x 4 days PREDNISONE 20 MG ORAL TABLET 727781 PREDNISONE Inactive AMOXICILLIN 500 MG ORAL TABLET Take two tablets by mouth every 12 hours for 10 days AMOXICILLIN 500 MG ORAL TABLET 144298 AMOXICILLIN Inactive Advance Directives Directive Description Start Date PERMISSION TO SHARE Immunizations Vaccine Administration Date Value Standard Description Seasonal influenza vaccine, injectable, preservative free, for > 3 years old ( Afluria, FluLaval, Fluzone, Fluvirin, Fluarix, Agriflu(>=18 yo)) Fluzone preservative free (>=3 yrs.) [RUR411] Influenza, seasonal, injectable, preservative free Adacel (Tetanus, reduced Diphtheria, and acellular Pertussis Immunization) Adacel [QHT100] tetanus toxoid, reduced diphtheria toxoid, and acellular [...] Panel - Chemistry sodium, serum 137 mmol/L 073-212 7513/08/14 carbon dioxide, venous blood 29.7 mmol/L 21.0-32.0 potassium, serum 4.3 mmol/L 3.5-5.2 chloride, serum 99 mmol/L 98-107 blood glucose 123 mg/dL 65-110 urea nitrogen, blood 12 mg/dL 7-18 creatinine, serum 0.84 mg/dL 0.60-1.30 alanine aminotransferase (SGPT), serum 48 U/L 12-78 aspartate aminotransferase (SGOT), serum 26 U/L 15-37 calcium, serum 9.4 mg/dL 8.5-10.1 bilirubin, serum, total 1.60 mg/dL 0.00-1.00 cholesterol, serum 141 mg/dL 168-211 8277/08/14 triglyceride, serum, fasting 54 mg/dL 30-200 HDL [...] ... - Chemistry sodium, serum 137 mmol/L 182-877 5984/04/23 carbon dioxide, venous blood 28.4 mmol/L 21.0-32.0 [...] semiquantitative 6.0 5.0-8.5 Lab Report: VITAMIN D, [id number] - Chemistry vitamin D 25-hydroxy, serum 18 ng/mL 30-100 vitamin D 25-hydroxy, serum 44 ng/mL 30-100 Encounters Code Encounter Date Provider Facility CPT-45360 Level 3 Est. Patient 10:49:01 CDT Manish Castrejon [facility] CPT-21377 Level 3 Est. Patient 11:35:07 CDT Elijahzeyad Chasel [facility] CPT-68172 Level 3 Est. Patient 17:22:36 CDT Tracy Frey [facility] CPT-46844 Level 3 Est. Patient 16:06:03 CDT Elijahudaydenise Uriosteguigretal [facility] CPT-34665 Level 3 Est. Patient 09:57:24 CDT Elijahzeyad Moodygretal [facility] CPT-39207 Level 3 Est. Patient 16:31:04 CDT Иван Mooney MD [facility] CPT-88008 Level 4 Est. Patient 12:02:18 CDT Hector Love MD [facility] CPT-26223 Level 3 Est. Patient 16:14:45 CDT Hector Love MD [facility] CPT-43976 Level 3 Est. Patient 16:53:35 CDT Иван Mooney MD [facility] CPT-48287 Level 3 Est. Patient 15:57:13 CDT Martha Nikia [facility] CPT-71584 Level 3 Est. Patient 14:30:47 TWIST MAKER Hector Love MD [facility] CPT-69871 Level 3 Est. Patient 14:50:45 CDT Hector Love MD [facility] CPT-11083 Level 3 Est. Patient 21:17:30 CDT eJn Crystal MD, PhD [facility] CPT-18408 Level 3 Est. Patient 09:32:55 CDT Hector Love MD [facility]-96778 Level 3 Est. Patient 15:11:08 TWIST MAKER Иван Mooney MD [facility] CPT-64941 Level 3 Est. Patient 16:38:53 TWIST MAKER Hector Love MD [facility] CPT-19879 Level 3 Est. Patient 15:46:05 CDT Hector Love MD [facility] CPT-05338 Level 3 Est. Patient 13:59:39 CDT Hector Love MD [facility] CPT-80148 Level 3 Est. Patient 14:44:46 TWIST MAKER Hector Love MD [facility] CPT-59223 Level 3 Est. Patient 17:12:27 CDT Hector Love MD [facility] CPT-26616 Level 3 Est. Patient 15:30:32 CDT Hector Love MD [facility] CPT-71986 Level 3 Est. Patient 14:24:52 CDT Иван Mooney MD [facility] CPT-90367 Level 3 Est. Patient 14:08:38 TWIST MAKER Hector Love MD [facility] Procedures Code Procedure Name Date Entry Date Standard Description CPT-71336 Chest, 2 views 11:04:30 CDT CPT-71890 Venipuncture Draw Fee 16:18:26 CDT CPT-20660 TB Skin Test 09:57:25 CDT CPT-000 Give Appropriate Flu Vaccine 16:22:23 TWIST MAKER CPT-79340 Free T4 - LAB USE ONLY 11:38:58 CDT CPT-75647 TSH - LAB USE ONLY 11:38:58 CDT CPT-72911 Venipuncture Draw Fee 11:38:58 CDT CPT-46172 Fluzone Quadrivalent Intramuscular Suspension 0.5 ML 16: 12:26 TWIST MAKER CPT-00407 Immunization Single Admin 16:12:26 TWIST MAKER CPT-J0561 Bicillin LA 1,200,000 u (PCN G Benzathine) 16:40:23 CDT CPT-45728 Abx/Therapy Injection 16:40:22 CDT CPT-J0561 Bicillin LA 1,200,000 u (PCN G Benzathine) 16:15:35 CDT CPT-32943 Immunization Single Admin 16:11:28 TWIST MAKER CPT-38879 Fluzone Quadrivalent Intramuscular Suspension 0.5 ML 16: 11:28 TWIST MAKER CPT-22295 Administration single or combination vaccine inc oral 13 :57:23 CDT CPT-72814 Menactra Intramuscular Injectable 13:57:23 CDT CPT-26612 First Vx Component - Ix admin via ID IM or jet inj without physician counseling 16:42:17 TWIST MAKER CPT-70347 Fluzone preservative free (>=3 yrs.) 16:42:17 TWIST MAKER 06/03 CPT-02635 Venipuncture Draw Fee 16:29:01 CDT CPT-21632 Chest 2V Frontal and Lat 16:23:56 CDT CPT-03095 Administration single or combination vaccine inc oral 13 :39:17 TWIST MAKER CPT-90982 Tdap 13:39:17 TWIST MAKER
--- OUTSIDE RECORDS SUMMARY | 2017-11-06 02:14 | XMS REPORT | Clinical Summary ---
Author Author Admin, QIE Organization [facility] Address Unknown Phone Unavailable Allergies, Adverse Reactions, [...] Gastroenteritis, viral, acute 008.8 Resolved Martha Montejo NUCLEAR MEDICINE PHYSICIAN Intestinal infection due to other organism, not [...] employment physical examination V70.0 Active Manish Castrejon NUCLEAR MEDICINE PHYSICIAN Routine general medical examination at a health care facility Exposure to mononucleosis V01.79 Active Manish Castrejon NUCLEAR MEDICINE PHYSICIAN Contact with or exposure to other viral [...] STREPTOCOCCUS PNEUMONIAE (PNEUMOCOCCUS) AND INFLUENZA ICD-V06.6 Inactive eHctor Love MD Gastroenteritis, viral, acute ICD-008.8 Inactive Martha Montejo NUCLEAR MEDICINE PHYSICIAN Bronchitis ICD-490 Inactive Hector Love MD 2014 Pharyngitis ICD-462 Inactive Hector Love MD Ingrown toenail ICD-703.0 Inactive Hector Love MD Ingrown toenail, right ICD-703.0 Inactive Hector Love MD Medication List Medication Instructions Start Date Stop Date Generic Name NDC Status Provider Patient Instruction AMOXICILLIN 500 MG TABS Take two tablets by mouth every 12 hours for 10 days AMOXICILLIN 83256406483 No Longer Active Иван Mooney MD Active VITAMIN C 500 MG CHEW TAB ASCORBIC ACID 06085334227 Active Иван Mooney MD Active PREDNISONE 20 MG TAB 2 po qd x 4 days PREDNISONE 25342746616 No Longer Active Hector Love MD Active HYDROCODONE-ACETAMINOPHEN 5-325 MG TABS 1/2 to 1 po q 4 hours prn pain 11/06 HYDROCODONE-ACETAMINOPHEN 49225922313 No Longer Active Hector Love MD Active FLONASE ALLERGY RELIEF 50 MCG/ACT NASAL SUSP 2 spray each nostril daily prn allergies FLUTICASONE PROPIONATE 30476373654 Active Hector Love MD Active AUGMENTIN 875-125 MG TAB 1 po BID x 10 days AMOXICILLIN-POT CLAVULANATE 12363841823 No Longer Active Hector Love MD Active FLONASE ALLERGY RELIEF 50 MCG/ACT NASAL SUSP 2 sprays each nostril daily PRN allergies FLUTICASONE PROPIONATE 22306311915 No Longer Active Hector Love MD Active AMOXICILLIN 500 MG CAPS 1 cap by mouth three times a day AMOXICILLIN 90666500157 No Longer Active Jillina Frazell NUCLEAR MEDICINE PHYSICIAN Active KEFLEX 500 MG CAP 1 tab po tid CEPHALEXIN 16759798965 No Longer Active Jillina Frazell NUCLEAR MEDICINE PHYSICIAN Active AMOXICILLIN 500 MG TABS 2 tabs twice a day for 10 days AMOXICILLIN 90487358329 No Longer Active Jillina Frazell NUCLEAR MEDICINE PHYSICIAN Active ZYRTEC ALLERGY 10 MG CAPS 1 po qd CETIRIZINE HCL 79807887439 Active Hector Love MD Active PROGRAF 1 MG CAPS 2 tabs po bid TACROLIMUS 50301766446 Active Hector Love MD Active ZOFRAN 4 MG TABS 1 po q6hr PRN Nausea ONDANSETRON HCL 22592868881 No Longer Active Ramona Diggs LPN Active AMOXICILLIN 500 MG CAPS 2 po BID x 10 days AMOXICILLIN 24069765183 No Longer Active Martha Montejo NUCLEAR MEDICINE PHYSICIAN Active AUGMENTIN 875-125 MG TAB 1 tab by mouth twice daily with food AMOXICILLIN-POT CLAVULANATE 53733754791 No Longer Active Hector Love MD Active LEVAQUIN 500 MG TABS 1 pill by mouth daily LEVOFLOXACIN 74281853519 No Longer Active Jen Crystal MD PhD Active LISINOPRIL 5 MG TABS 1.5 tab qd LISINOPRIL 45576191051 Active Jen Crystal MD PhD Active KETOCONAZOLE 2 % CREA apply twice a day to rash KETOCONAZOLE 92846284674 No Longer Active Hector Love MD Active AUGMENTIN 875-125 MG TAB 1 tab by mouth twice daily with food AMOXICILLIN-POT CLAVULANATE 52286983331 No Longer Active Иван Mooney MD Active LOTRISONE 0.05-1 % CREAM Apply twice a day to affected area 07/19 CLOTRIMAZOLE-BETAMETHASONE 34956406284 No Longer Active Иван Mooney MD Active FEXOFENADINE HCL 180 MG TABS 1 Daily FEXOFENADINE HCL 92660558639 No Longer Active Hector Love MD Active PROGRAF 0.5 MG CAPS Take one by mouth daily with 1 mg TACROLIMUS 78743397841 No Longer Active Hector Love MD Active AMOXICILLIN 500 MG CAPS 2 po BID x 10 days AMOXICILLIN 36912859184 No Longer Active Hector Love MD Active RAPAMUNE 1 MG TABS 3 tabs in the am SIROLIMUS 35377240130 No Longer Active Hector Love MD Active AMOXICILLIN 500 MG CAPS 2 po BID x 10 days AMOXICILLIN 02801364801 No Longer Active Hector Love MD Active LORTAB 5 5-500 MG TABS 1/2 to 1 tablet by mouth every 4 hours as needed for pain HYDROCODONE-ACETAMINOPHEN 72981275302 No Longer Active Hector Love MD Active FLUTICASONE PROPIONATE 50 MCG/ACT SUSP INSTILL 2 SPRAYS IN EACH NOSTRIL Q D FLUTICASONE PROPIONATE 32200547246 No Longer Active Hector Love MD Active PROGRAF 1 MG CAPS 1 po bid TACROLIMUS 90132252396 No Longer Active Hector Love MD Active AMOXICILLIN 875 MG TABS 1 tab by mouth twice daily AMOXICILLIN 76705120845 No Longer Active Hector Love MD Active AMOXICILLIN 500 MG CAPS 2 po BID x 10 days AMOXICILLIN 64840855446 No Longer Active Hector Love MD Active AUGMENTIN 875-125 MG TAB 1 tab by mouth twice daily with food AMOXICILLIN-POT CLAVULANATE 48150644522 No Longer Active Hector Love MD Active AZITHROMYCIN 250 MG TABS 2 po qd x 1 day, then 1 po qd x 4 days AZITHROMYCIN 81956121515 No Longer Active Hector Love MD Active CETIRIZINE HCL 10 MG TABS 1 PO Q D CETIRIZINE HCL 73999908950 No Longer Active [place] Active PROGRAF 1 MG CAPS 1 po bid PROGRAF 1 MG CAPS 738540 TACROLIMUS Inactive FLUTICASONE PROPIONATE 50 MCG/ACT SUSP INSTILL 2 SPRAYS IN EACH NOSTRIL Q D FLUTICASONE PROPIONATE 50 MCG/ACT SUSP 6617797 FLUTICASONE PROPIONATE Inactive LORTAB 5 5-500 MG TABS 1/2 to 1 tablet by mouth every 4 hours as needed for pain LORTAB 5 5-500 MG TABS HYDROCODONE- ACETAMINOPHEN Inactive RAPAMUNE 1 MG TABS 3 tabs in the am RAPAMUNE 1 MG TABS 497350 SIROLIMUS Inactive PROGRAF 0.5 MG CAPS Take one by mouth daily with 1 mg PROGRAF 0.5 MG CAPS 290012 TACROLIMUS Inactive FEXOFENADINE HCL 180 MG TABS 1 Daily FEXOFENADINE HCL 180 MG TABS 288380 FEXOFENADINE HCL Inactive LOTRISONE 0.05-1 % CREAM Apply twice a day to affected area 07/19 LOTRISONE 0.05-1 % CREAM 566569 CLOTRIMAZOLE-BETAMETHASONE Inactive KETOCONAZOLE 2 % CREA apply twice a day to rash KETOCONAZOLE 2 % CREA 180669 KETOCONAZOLE Inactive AUGMENTIN 875-125 MG TAB 1 tab by mouth twice daily with food AUGMENTIN 875-125 MG TAB 625804 AMOXICILLIN-POT CLAVULANATE Inactive ZOFRAN 4 MG TABS 1 po q6hr PRN Nausea ZOFRAN 4 MG TABS 095625 ONDANSETRON HCL Inactive AMOXICILLIN 500 MG TABS 2 tabs twice a day for 10 days AMOXICILLIN 500 MG TABS 832210 AMOXICILLIN Inactive FLONASE ALLERGY RELIEF 50 MCG/ACT NASAL SUSP 2 sprays each nostril daily PRN allergies FLONASE ALLERGY RELIEF 50 MCG/ACT NASAL SUSP 2344268 FLUTICASONE PROPIONATE Inactive HYDROCODONE-ACETAMINOPHEN 5-325 MG TABS 1/2 to 1 po q 4 hours prn pain 11/06 HYDROCODONE-ACETAMINOPHEN 5-325 MG TABS 545862 HYDROCODONE- ACETAMINOPHEN Inactive AMOXICILLIN 500 MG CAPS 2 po BID x 10 days AMOXICILLIN 500 MG CAPS 620416 AMOXICILLIN Inactive AMOXICILLIN 875 MG TABS 1 tab by mouth twice daily AMOXICILLIN 875 MG TABS 643752 AMOXICILLIN Inactive AMOXICILLIN 500 MG CAPS 2 po BID x 10 days AMOXICILLIN 500 MG CAPS 040279 AMOXICILLIN Inactive AMOXICILLIN 500 MG CAPS 2 po BID x 10 days AMOXICILLIN 500 MG CAPS 564839 AMOXICILLIN Inactive AUGMENTIN 875-125 MG TAB 1 tab by mouth twice daily with food AUGMENTIN 875-125 MG TAB 872126 AMOXICILLIN-POT CLAVULANATE Inactive LEVAQUIN 500 MG TABS 1 pill by mouth daily LEVAQUIN 500 MG TABS 992806 LEVOFLOXACIN Inactive AMOXICILLIN 500 MG CAPS 2 po BID x 10 days AMOXICILLIN 500 MG CAPS 667363 AMOXICILLIN Inactive AMOXICILLIN 500 MG CAPS 1 cap by mouth three times a day AMOXICILLIN 500 MG CAPS 195481 AMOXICILLIN Inactive AUGMENTIN 875-125 MG TAB 1 po BID x 10 days AUGMENTIN 875-125 MG TAB 208886 AMOXICILLIN-POT CLAVULANATE Inactive PREDNISONE 20 MG TAB 2 po qd x 4 days PREDNISONE 20 MG TAB 221134 PREDNISONE Inactive AMOXICILLIN 500 MG TABS Take two tablets by mouth every 12 hours for 10 days AMOXICILLIN 500 MG TABS 800481 AMOXICILLIN Inactive Advance Directives Directive Description Start Date PERMISSION TO SHARE Immunizations Vaccine Administration Date Value Standard Description Seasonal influenza vaccine, injectable, preservative free, for > 3 years old ( Afluria, FluLaval, Fluzone, Fluvirin, Fluarix, Agriflu(>=18 yo)) Fluzone preservative free (>=3 yrs.) [[id number]] Influenza, seasonal, injectable, preservative free Adacel (Tetanus, reduced Diphtheria, and acellular Pertussis Immunization) Adacel [FRO745] tetanus toxoid, reduced diphtheria toxoid, and acellular [...] Panel - Chemistry sodium, serum 137 mmol/L 488-671 3475/08/14 carbon dioxide, venous blood 29.7 mmol/L 21.0-32.0 potassium, serum 4.3 mmol/L 3.5-5.2 chloride, serum 99 mmol/L 98-107 blood glucose 123 mg/dL 65-110 urea nitrogen, blood 12 mg/dL 7-18 creatinine, serum 0.84 mg/dL 0.60-1.30 alanine aminotransferase (SGPT), serum 48 U/L 12-78 aspartate aminotransferase (SGOT), serum 26 U/L 15-37 calcium, serum 9.4 mg/dL 8.5-10.1 bilirubin, serum, total 1.60 mg/dL 0.00-1.00 cholesterol, serum 141 mg/dL 521-463 0706/08/14 triglyceride, serum, fasting 54 mg/dL 30-200 HDL [...] 5.0-8.5 Encounters Code Encounter Date Provider Facility CPT-98943 Level 3 Est. Patient 16:06:03 CDT Manish Castrejon [facility] CPT-88814 Level 3 Est. Patient 09:57:24 CDT Manish Castrejon [facility] CPT-15161 Level 3 Est. Patient 16:31:04 CDT Иван Mooney MD [facility] CPT-42928 Level 4 Est. Patient 12:02:18 CDT Hector Love MD [facility] CPT-60096 Level 3 Est. Patient 16:14:45 CDT Hector Love MD [facility] CPT-10775 Level 3 Est. Patient 16:53:35 CDT Иван Mooney MD [facility] CPT-37678 Level 3 Est. Patient 15:57:13 CDT Martha Montejo [facility] CPT-31393 Level 3 Est. Patient 14:30:47 ULTRASOUND TECHNICIAN Hector Love MD [facility] CPT-06201 Level 3 Est. Patient 14:50:45 CDT Hector Love MD [facility] CPT-28992 Level 3 Est. Patient 21:17:30 CDT Jen Crystal MD, PhD [facility] CPT-36782 Level 3 Est. Patient 09:32:55 CDT Hector Love MD [facility] CPT-71050 Level 3 Est. Patient 15:11:08 ULTRASOUND TECHNICIAN Иван Mooney MD [facility] CPT-62167 Level 3 Est. Patient 16:38:53 ULTRASOUND TECHNICIAN Hector Love MD [facility] CPT-75314 Level 3 Est. Patient 15:46:05 CDT Hector Love MD [facility] CPT-37359 Level 3 Est. Patient 13:59:39 CDT Hector Love MD [facility] CPT-08164 Level 3 Est. Patient 14:44:46 ULTRASOUND TECHNICIAN Hector Love MD [facility] CPT-98744 Level 3 Est. Patient 17:12:27 CDT Hector Love MD [facility] CPT-68268 Level 3 Est. Patient 15:30:32 CDT Hector Love MD [facility] CPT-61739 Level 3 Est. Patient 14:24:52 CDT Иван Mooney MD [facility] CPT-62822 Level 3 Est. Patient 14:08:38 ULTRASOUND TECHNICIAN Hector Love MD [facility] Procedures Code Procedure Name Date Entry Date Standard Description CPT-19670 Venipuncture Draw Fee 16:18:26 CDT CPT-66030 TB Skin Test 09:57:25 CDT CPT-000 Give Appropriate Flu Vaccine 16:22:23 ULTRASOUND TECHNICIAN CPT-60518 Free T4 - LAB USE ONLY 11:38:58 CDT CPT-83245 TSH - LAB USE ONLY 11:38:58 CDT CPT-29593 Venipuncture Draw Fee 11:38:58 CDT CPT-50028 Fluzone Quadrivalent Intramuscular Suspension 0.5 ML 16: 12:26 ULTRASOUND TECHNICIAN CPT-18188 Immunization Single Admin 16:12:26 ULTRASOUND TECHNICIAN CPT-J0561 Bicillin LA 1,200,000 u (PCN G Benzathine) 16:40:23 CDT CPT-74542 Abx/Therapy Injection 16:40:22 CDT CPT-J0561 Bicillin LA 1,200,000 u (PCN G Benzathine) 16:15:35 CDT CPT-32538 Immunization Single Admin 16:11:28 ULTRASOUND TECHNICIAN CPT-18542 Fluzone Quadrivalent Intramuscular Suspension 0.5 ML 16: 11:28 ULTRASOUND TECHNICIAN CPT-36032 Administration single or combination vaccine inc oral 13 :57:23 CDT CPT-76664 Menactra Intramuscular Injectable 13:57:23 CDT CPT-87288 First Vx Component - Ix admin via ID IM or jet inj without physician counseling 16:42:17 ULTRASOUND TECHNICIAN CPT-47335 Fluzone preservative free (>=3 yrs.) 16:42:17 ULTRASOUND TECHNICIAN 06/03 CPT-73295 Venipuncture Draw Fee 16:29:01 CDT CPT-15451 Chest 2V Frontal and Lat 16:23:56 CDT CPT-42195 Administration single or combination vaccine inc oral 13 :39:17 ULTRASOUND TECHNICIAN CPT-34758 Tdap 13:39:17 ULTRASOUND TECHNICIAN
[2017-11-06] MEDS ORDERED: FAMOTIDINE 20 MG (PEPCID) TABLET PO ONE (02:15)
[2017-11-06] MEDS ORDERED: LORATADINE (CLARITIN) 10 MG TAB PO ONE (02:15)
[2017-11-06] MEDS ORDERED: diphenhydrAMINE 25 MG TAB (BENADRYL) PO ONE (02:15)
--- OUTSIDE RECORDS SUMMARY | 2017-11-06 02:15 | XMS REPORT | Clinical Summary ---
Author Author Admin, LAMBERT Organization [facility] Address Unknown Phone Unavailable Allergies, Adverse [...] Gastroenteritis, viral, acute 008.8 Resolved Martha Montejo ARCGIS DEVELOPER Intestinal infection due to other organism, not elsewhere classified Bronchitis 490 Resolved Hector Love MD Bronchitis, not specified as acute or chronic Pharyngitis 462 Active Иван Mooney MD Acute pharyngitis Ingrown toenail 703.0 Active Manish Castrejon ARCGIS DEVELOPER Ingrowing nail Ingrown toenail, right 703.0 [...] q 4 hours prn pain 11/06 HYDROCODONE-ACETAMINOPHEN 12127411328 Active Hector Love MD Active AUGMENTIN 875-125 MG TAB 1 po BID x 10 days AMOXICILLIN-POT CLAVULANATE 14406177256 Active Hector Love MD Active FLONASE ALLERGY RELIEF 50 MCG/ACT NASAL SUSP 2 sprays each nostril daily PRN allergies FLUTICASONE PROPIONATE 61094134709 No Longer Active Hector Love MD Active AMOXICILLIN 500 MG CAPS 1 cap by mouth three times a day AMOXICILLIN 71135237990 No Longer Active Jillina Frazelalejandrina NOWAKN Active KEFLEX 500 MG CAP 1 tab po tid CEPHALEXIN 04567459634 No Longer Active Jillina Frazell ARCGIS DEVELOPER Active AMOXICILLIN 500 MG TABS 2 tabs twice a day for 10 days AMOXICILLIN 71374960736 No Longer Active Manish Castrejon APRN Active ZYRTEC ALLERGY 10 MG CAPS 1 po qd CETIRIZINE HCL 26805810153 Active Hector Love MD Active PROGRAF 1 MG CAPS 2 tabs po bid TACROLIMUS 38002834668 Active Hector Love MD Active ZOFRAN 4 MG TABS 1 po q6hr PRN Nausea ONDANSETRON HCL 24464994516 No Longer Active Ramona Diggs LPN Active AMOXICILLIN 500 MG CAPS 2 po BID x 10 days AMOXICILLIN 11824839726 No Longer Active Martha Yohenrique ARCGIS DEVELOPER Active AUGMENTIN 875-125 MG TAB 1 tab by mouth twice daily with food AMOXICILLIN-POT CLAVULANATE 44215359065 No Longer Active Hector Love MD Active LEVAQUIN 500 MG TABS 1 pill by mouth daily LEVOFLOXACIN 67654753753 No Longer Active Jen Crystal MD PhD Active LISINOPRIL 5 MG TABS 1.5 tab qd LISINOPRIL 53815071211 Active Jen Crystal MD PhD Active KETOCONAZOLE 2 % CREA apply twice a day to rash KETOCONAZOLE 41986971947 No Longer Active Hector Love MD Active AUGMENTIN 875-125 MG TAB 1 tab by mouth twice daily with food AMOXICILLIN-POT CLAVULANATE 41174674531 No Longer Active Иван Mooney MD Active LOTRISONE 0.05-1 % CREAM Apply twice a day to affected area 07/19 CLOTRIMAZOLE-BETAMETHASONE 90508280363 No Longer Active Иван Mooney MD Active FEXOFENADINE HCL 180 MG TABS 1 Daily FEXOFENADINE HCL 83116579114 No Longer Active Hector Love MD Active PROGRAF 0.5 MG CAPS Take one by mouth daily with 1 mg TACROLIMUS 59972571274 No Longer Active Hector Love MD Active AMOXICILLIN 500 MG CAPS 2 po BID x 10 days AMOXICILLIN 41128108203 No Longer Active Hector Love MD Active RAPAMUNE 1 MG TABS 3 tabs in the am SIROLIMUS 39760132027 No Longer Active Hector Love MD Active AMOXICILLIN 500 MG CAPS 2 po BID x 10 days AMOXICILLIN 88537345983 No Longer Active Hector Love MD Active LORTAB 5 5-500 MG TABS 1/2 to 1 tablet by mouth every 4 hours as needed for pain HYDROCODONE-ACETAMINOPHEN 12406961688 No Longer Active Hector Love MD Active FLUTICASONE PROPIONATE 50 MCG/ACT SUSP INSTILL 2 SPRAYS IN EACH NOSTRIL Q D FLUTICASONE PROPIONATE 76156013623 No Longer Active Hector Love MD Active PROGRAF 1 MG CAPS 1 po bid TACROLIMUS 20800608105 No Longer Active Hector Love MD Active AMOXICILLIN 875 MG TABS 1 tab by mouth twice daily AMOXICILLIN 30443722932 No Longer Active Hector Love MD Active AMOXICILLIN 500 MG CAPS 2 po BID x 10 days AMOXICILLIN 05788782033 No Longer Active Hector Love MD Active AUGMENTIN 875-125 MG TAB 1 tab by mouth twice daily with food AMOXICILLIN-POT CLAVULANATE 39538900361 No Longer Active Hector Love MD Active AZITHROMYCIN 250 MG TABS 2 po qd x 1 day, then 1 po qd x 4 days AZITHROMYCIN 08640098945 No Longer Active Hector Love MD Active CETIRIZINE HCL 10 MG TABS 1 PO Q D CETIRIZINE HCL 80639360909 No Longer Active [place] Active PROGRAF 1 MG CAPS 1 po bid PROGRAF 1 MG CAPS 948008 TACROLIMUS Inactive FLUTICASONE PROPIONATE 50 MCG/ACT SUSP INSTILL 2 SPRAYS IN EACH NOSTRIL Q D FLUTICASONE PROPIONATE 50 MCG/ACT SUSP 983574 FLUTICASONE PROPIONATE Inactive LORTAB 5 5-500 MG TABS 1/2 to 1 tablet by mouth every 4 hours as needed for pain LORTAB 5 5-500 MG TABS HYDROCODONE- ACETAMINOPHEN Inactive RAPAMUNE 1 MG TABS 3 tabs in the am RAPAMUNE 1 MG TABS 101464 SIROLIMUS Inactive PROGRAF 0.5 MG CAPS Take one by mouth daily with 1 mg PROGRAF 0.5 MG CAPS 359245 TACROLIMUS Inactive FEXOFENADINE HCL 180 MG TABS 1 Daily FEXOFENADINE HCL 180 MG TABS 711033 FEXOFENADINE HCL Inactive LOTRISONE 0.05-1 % CREAM Apply twice a day to affected area 07/19 LOTRISONE 0.05-1 % CREAM 276483 CLOTRIMAZOLE-BETAMETHASONE Inactive KETOCONAZOLE 2 % CREA apply twice a day to rash KETOCONAZOLE 2 % CREA 984806 KETOCONAZOLE Inactive AUGMENTIN 875-125 MG TAB 1 tab by mouth twice daily with food AUGMENTIN 875-125 MG TAB 894411 AMOXICILLIN-POT CLAVULANATE Inactive ZOFRAN 4 MG TABS 1 po q6hr PRN Nausea ZOFRAN 4 MG TABS 554547 ONDANSETRON HCL Inactive AMOXICILLIN 500 MG TABS 2 tabs twice a day for 10 days AMOXICILLIN 500 MG TABS 699438 AMOXICILLIN Inactive FLONASE ALLERGY RELIEF 50 MCG/ACT NASAL SUSP 2 sprays each nostril daily PRN allergies FLONASE ALLERGY RELIEF 50 MCG/ACT NASAL SUSP 082880 FLUTICASONE PROPIONATE Inactive AMOXICILLIN 500 MG CAPS 2 po BID x 10 days AMOXICILLIN 500 MG CAPS 272403 AMOXICILLIN Inactive AMOXICILLIN 875 MG TABS 1 tab by mouth twice daily AMOXICILLIN 875 MG TABS 288536 AMOXICILLIN Inactive AMOXICILLIN 500 MG CAPS 2 po BID x 10 days AMOXICILLIN 500 MG CAPS 854119 AMOXICILLIN Inactive AMOXICILLIN 500 MG CAPS 2 po BID x 10 days AMOXICILLIN 500 MG CAPS 745445 AMOXICILLIN Inactive AUGMENTIN 875-125 MG TAB 1 tab by mouth twice daily with food AUGMENTIN 875-125 MG TAB 303164 AMOXICILLIN-POT CLAVULANATE Inactive LEVAQUIN 500 MG TABS 1 pill by mouth daily LEVAQUIN 500 MG TABS 720712 LEVOFLOXACIN Inactive AMOXICILLIN 500 MG CAPS 2 po BID x 10 days AMOXICILLIN 500 MG CAPS 448793 AMOXICILLIN Inactive AMOXICILLIN 500 MG CAPS 1 cap by mouth three times a day AMOXICILLIN 500 MG CAPS 866418 AMOXICILLIN Inactive Advance Directives Directive Description Start Date PERMISSION TO SHARE Immunizations Vaccine Administration Date Value Standard Description Seasonal influenza vaccine, injectable, preservative free, for > 3 years old ( Afluria, FluLaval, Fluzone, Fluvirin, Fluarix, Agriflu(>=18 yo)) Fluzone preservative free (>=3 yrs.) [[id number]] Influenza, seasonal, injectable, preservative free Adacel (Tetanus, reduced Diphtheria, and acellular Pertussis Immunization) Adacel [EGV772] tetanus toxoid, reduced diphtheria toxoid, and acellular [...] Negative Encounters Code Encounter Date Provider Facility [facility]-[id number] Level 3 Est. Patient 16:14:45 CDT Hector Love MD [facility] CPT-38941 Level 3 Est. Patient 16:53:35 CDT Иван Mooney MD [facility]-85096 Level 3 Est. Patient 15:57:13 CDT Martha Montejo ARCGIS DEVELOPER [facility] CPT-35475 Level 3 Est. Patient 14:30:47 HYDRAULIC PUNCH PRESS OPERATOR Hector Love MD [facility]-15855 Level 3 Est. Patient 14:50:45 CDT Hector Love MD [facility] CPT-63880 Level 3 Est. Patient 21:17:30 CDT Jen Crystal MD PhD [facility] CPT-01005 Level 3 Est. Patient 09:32:55 CDT Hector Love MD [facility] CPT-31471 Level 3 Est. Patient 15:11:08 HYDRAULIC PUNCH PRESS OPERATOR Иван Mooney MD [facility]-57291 Level 3 Est. Patient 16:38:53 HYDRAULIC PUNCH PRESS OPERATOR Hector Love MD [facility]-47127 Level 3 Est. Patient 15:46:05 CDT Hector Love MD [facility] CPT-07611 Level 3 Est. Patient 13:59:39 CDT Hector Love MD [facility]-53125 Level 3 Est. Patient 14:44:46 HYDRAULIC PUNCH PRESS OPERATOR Hector Love MD [facility]-07499 Level 3 Est. Patient 17:12:27 CDT Hector Love MD [facility] CPT-76135 Level 3 Est. Patient 15:30:32 CDT Hector Love MD [facility] CPT-14271 Level 3 Est. Patient 14:24:52 CDT Иван Mooney MD [facility] CPT-11408 Level 3 Est. Patient 14:08:38 HYDRAULIC PUNCH PRESS OPERATOR Hector Love MD [facility] Procedures Code Procedure Name Date Entry Date Standard Description CPT-49438 Fluzone Quadrivalent Intramuscular Suspension 0.5 ML 16: 12:26 HYDRAULIC PUNCH PRESS OPERATOR CPT-92638 Immunization Single Admin 16:12:26 HYDRAULIC PUNCH PRESS OPERATOR CPT-J0561 Bicillin LA 1,200,000 u (PCN G Benzathine) 16:40:23 CDT CPT-02335 Abx/Therapy Injection 16:40:22 CDT CPT-J0561 Bicillin LA 1,200,000 u (PCN G Benzathine) 16:15:35 CDT CPT-81533 Immunization Single Admin 16:11:28 HYDRAULIC PUNCH PRESS OPERATOR CPT-43432 Fluzone Quadrivalent Intramuscular Suspension 0.5 ML 16: 11:28 HYDRAULIC PUNCH PRESS OPERATOR CPT-38874 Administration single or combination vaccine inc oral 13 :57:23 CDT CPT-91240 Menactra Intramuscular Injectable 13:57:23 CDT CPT-01988 First Vx Component - Ix admin via ID IM or jet inj without physician counseling 16:42:17 HYDRAULIC PUNCH PRESS OPERATOR CPT-99895 Fluzone preservative free (>=3 yrs.) 16:42:17 HYDRAULIC PUNCH PRESS OPERATOR 06/03 CPT-64543 Venipuncture Draw Fee 16:29:01 CDT CPT-00322 Chest 2V Frontal and Lat 16:23:56 CDT CPT-28141 Administration single or combination vaccine inc oral 13 :39:17 HYDRAULIC PUNCH PRESS OPERATOR [facility]-68619 Tdap 13:39:17 HYDRAULIC PUNCH PRESS OPERATOR
--- OUTSIDE RECORDS SUMMARY | 2017-11-06 02:16 | XMS REPORT | Clinical Summary ---
Author Author Admin, QIE Organization [facility] Address Unknown Phone Unavailable Allergies, [...] facility Fatigue 780.79 Active Manish Castrejon [employer] Other malaise and fatigue Body Mass Index 34.0-34.9 Adult Active Manish Castrejon [employer] Body Mass Index 34.0-34.9, adult HYPERTENSION ICD-401.9 [...] viral, acute ICD-008.8 Inactive Martha Montejo [employer] Bronchitis ICD-490 Inactive Hector Love MD 2014 [...] MG ORAL CAPSULE 2 po BID TACROLIMUS 41297332548 Active Hector Love MD Active CETIRIZINE HCL 10 MG ORAL TABLET 1 po qd PRN Allergies CETIRIZINE HCL 44450902149 Active Hector Love MD Active LISINOPRIL 5 MG ORAL TABLET 1.5 po qd LISINOPRIL 65848460009 Vivek Love MD Active FLUTICASONE PROPIONATE 50 MCG/ACT NASAL SUSPENSION 2 sprays/nostril qd PRN Congestion/Allergies FLUTICASONE PROPIONATE 17605148178 Active Hector Love MD Active VITAMIN C 500 MG ORAL TABLET CHEWABLE ASCORBIC ACID 22347573614 No Longer Active Hector Love MD Active PREDNISONE 20 MG ORAL TABLET 1 tablet daily x 2 days PREDNISONE 19493597555 No Longer Active Manish Castrejon APRN Active AMOXICILLIN 500 MG ORAL TABLET Take two tablets by mouth every 12 hours for 10 days AMOXICILLIN 96414454021 No Longer Active Иван Mooney MD Active PREDNISONE 20 MG ORAL TABLET 2 po qd x 4 days PREDNISONE 64734898456 No Longer Active Hector Love MD Active HYDROCODONE-ACETAMINOPHEN 5-325 MG ORAL TABLET 1/2 to 1 po q 4 hours prn pain HYDROCODONE-ACETAMINOPHEN 95726971036 No Longer Active Hector Love MD Active AUGMENTIN 875-125 MG ORAL TABLET 1 po BID x 10 days AMOXICILLIN-POT CLAVULANATE 26968088766 No Longer Active Hector Love MD Active FLONASE ALLERGY RELIEF 50 MCG/ACT NASAL SUSPENSION 2 sprays each nostril daily PRN allergies FLUTICASONE PROPIONATE 76289569855 No Longer Active Hector Love MD Active AMOXICILLIN 500 MG ORAL CAPSULE 1 cap by mouth three times a day AMOXICILLIN 22288466339 No Longer Active Manish Castrejon APRN Active KEFLEX 500 MG ORAL CAPSULE 1 tab po tid CEPHALEXIN 45511877328 No Longer Active Jillina Fradebora GARCIA Active AMOXICILLIN 500 MG ORAL TABLET 2 tabs twice a day for 10 days AMOXICILLIN 46995133742 No Longer Active Jilldenise Fradebora GARCIA Active ZOFRAN 4 MG ORAL TABLET 1 po q6hr PRN Nausea ONDANSETRON HCL 73165336176 No Longer Active Ramona Diggs LPN Active AMOXICILLIN 500 MG ORAL CAPSULE 2 po BID x 10 days AMOXICILLIN 44891885980 No Longer Active Martha Montejo APRN Active AUGMENTIN 875-125 MG ORAL TABLET 1 tab by mouth twice daily with food AMOXICILLIN-POT CLAVULANATE 95190422398 No Longer Active Hector Love MD Active LEVAQUIN 500 MG ORAL TABLET 1 pill by mouth daily LEVOFLOXACIN 57841666895 No Longer Active Jen Crystal MD PhD Active KETOCONAZOLE 2 % EXTERNAL CREAM apply twice a day to rash KETOCONAZOLE 17793203304 No Longer Active Hector Love MD Active AUGMENTIN 875-125 MG ORAL TABLET 1 tab by mouth twice daily with food AMOXICILLIN-POT CLAVULANATE 13844595688 No Longer Active Иван Mooney MD Active LOTRISONE 1-0.05 % EXTERNAL CREAM Apply twice a day to affected area CLOTRIMAZOLE-BETAMETHASONE 78898355608 No Longer Active Иван Mooney MD Active FEXOFENADINE HCL 180 MG ORAL TABLET 1 Daily FEXOFENADINE HCL 35514866195 No Longer Active Hector Love MD Active PROGRAF 0.5 MG ORAL CAPSULE Take one by mouth daily with 1 mg TACROLIMUS 27103403641 No Longer Active Hector Love MD Active AMOXICILLIN 500 MG ORAL CAPSULE 2 po BID x 10 days AMOXICILLIN 83996092043 No Longer Active Hector Love MD Active RAPAMUNE 1 MG ORAL TABLET 3 tabs in the am SIROLIMUS 19609916558 No Longer Active Hector Love MD Active AMOXICILLIN 500 MG ORAL CAPSULE 2 po BID x 10 days AMOXICILLIN 40714448640 No Longer Active Hector Love MD Active LORTAB 5-500 MG ORAL TABLET 1/2 to 1 tablet by mouth every 4 hours as needed for pain HYDROCODONE-ACETAMINOPHEN 51553791299 No Longer Active Hector Love MD Active FLUTICASONE PROPIONATE 50 MCG/ACT NASAL SUSPENSION INSTILL 2 SPRAYS IN EACH NOSTRIL Q D FLUTICASONE PROPIONATE 60591399750 No Longer Active Hector Love MD Active PROGRAF 1 MG ORAL CAPSULE 1 po bid TACROLIMUS 70981155863 No Longer Active Hector Love MD Active AMOXICILLIN 875 MG ORAL TABLET 1 tab by mouth twice daily AMOXICILLIN 83769450990 No Longer Active Hcetor Love MD Active AMOXICILLIN 500 MG ORAL CAPSULE 2 po BID x 10 days AMOXICILLIN 78404975326 No Longer Active Hector Love MD Active AUGMENTIN 875-125 MG ORAL TABLET 1 tab by mouth twice daily with food AMOXICILLIN-POT CLAVULANATE 78599328206 No Longer Active Hector Love MD Active AZITHROMYCIN 250 MG ORAL TABLET 2 po qd x 1 day, then 1 po qd x 4 days 06/19 AZITHROMYCIN 30904027206 No Longer Active Hector Love MD Active CETIRIZINE HCL 10 MG ORAL TABLET 1 PO Q D CETIRIZINE HCL 22604511570 No Longer Active [place]ka Bentonia Active PROGRAF 1 MG ORAL CAPSULE 1 po bid PROGRAF 1 MG ORAL CAPSULE 948702 TACROLIMUS Inactive FLUTICASONE PROPIONATE 50 MCG/ACT NASAL SUSPENSION INSTILL 2 SPRAYS IN EACH NOSTRIL Q D FLUTICASONE PROPIONATE 50 MCG/ACT NASAL SUSPENSION 9397305 FLUTICASONE PROPIONATE Inactive LORTAB 5-500 MG ORAL TABLET 1/2 to 1 tablet by mouth every 4 hours as needed for pain LORTAB 5-500 MG ORAL TABLET HYDROCODONE- ACETAMINOPHEN Inactive RAPAMUNE 1 MG ORAL TABLET 3 tabs in the am RAPAMUNE 1 MG ORAL TABLET 338968 SIROLIMUS Inactive PROGRAF 0.5 MG ORAL CAPSULE Take one by mouth daily with 1 mg PROGRAF 0.5 MG ORAL CAPSULE 600145 TACROLIMUS Inactive FEXOFENADINE HCL 180 MG ORAL TABLET 1 Daily FEXOFENADINE HCL 180 MG ORAL TABLET 666932 FEXOFENADINE HCL Inactive LOTRISONE 1-0.05 % EXTERNAL CREAM Apply twice a day to affected area LOTRISONE 1-0.05 % EXTERNAL CREAM 023553 CLOTRIMAZOLE- BETAMETHASONE Inactive KETOCONAZOLE 2 % EXTERNAL CREAM apply twice a day to rash KETOCONAZOLE 2 % EXTERNAL CREAM 366608 KETOCONAZOLE Inactive AUGMENTIN 875-125 MG ORAL TABLET 1 tab by mouth twice daily with food AUGMENTIN 875-125 MG ORAL TABLET 831954 AMOXICILLIN-POT CLAVULANATE Inactive ZOFRAN 4 MG ORAL TABLET 1 po q6hr PRN Nausea ZOFRAN 4 MG ORAL TABLET 219724 ONDANSETRON HCL Inactive AMOXICILLIN 500 MG ORAL TABLET 2 tabs twice a day for 10 days AMOXICILLIN 500 MG ORAL TABLET 920299 AMOXICILLIN Inactive FLONASE ALLERGY RELIEF 50 MCG/ACT NASAL SUSPENSION 2 sprays each nostril daily PRN allergies FLONASE ALLERGY RELIEF 50 MCG/ACT NASAL SUSPENSION 0316532 FLUTICASONE PROPIONATE Inactive HYDROCODONE-ACETAMINOPHEN 5-325 MG ORAL TABLET 1/2 to 1 po q 4 hours prn pain HYDROCODONE-ACETAMINOPHEN 5-325 MG ORAL TABLET 023250 HYDROCODONE-ACETAMINOPHEN Inactive PREDNISONE 20 MG ORAL TABLET 1 tablet daily x 2 days PREDNISONE 20 MG ORAL TABLET 082521 PREDNISONE Inactive VITAMIN C 500 MG ORAL TABLET CHEWABLE VITAMIN C 500 MG ORAL TABLET CHEWABLE ASCORBIC ACID Inactive AMOXICILLIN 500 MG ORAL CAPSULE 2 po BID x 10 days AMOXICILLIN 500 MG ORAL CAPSULE 649222 AMOXICILLIN Inactive AMOXICILLIN 875 MG ORAL TABLET 1 tab by mouth twice daily AMOXICILLIN 875 MG ORAL TABLET 645320 AMOXICILLIN Inactive AMOXICILLIN 500 MG ORAL CAPSULE 2 po BID x 10 days AMOXICILLIN 500 MG ORAL CAPSULE 672190 AMOXICILLIN Inactive AMOXICILLIN 500 MG ORAL CAPSULE 2 po BID x 10 days AMOXICILLIN 500 MG ORAL CAPSULE 751373 AMOXICILLIN Inactive AUGMENTIN 875-125 MG ORAL TABLET 1 tab by mouth twice daily with food AUGMENTIN 875-125 MG ORAL TABLET 382187 AMOXICILLIN-POT CLAVULANATE Inactive LEVAQUIN 500 MG ORAL TABLET 1 pill by mouth daily LEVAQUIN 500 MG ORAL TABLET 819761 LEVOFLOXACIN Inactive AMOXICILLIN 500 MG ORAL CAPSULE 2 po BID x 10 days AMOXICILLIN 500 MG ORAL CAPSULE 910724 AMOXICILLIN Inactive AMOXICILLIN 500 MG ORAL CAPSULE 1 cap by mouth three times a day AMOXICILLIN 500 MG ORAL CAPSULE 154004 AMOXICILLIN Inactive AUGMENTIN 875-125 MG ORAL TABLET 1 po BID x 10 days AUGMENTIN 875-125 MG ORAL TABLET 632915 AMOXICILLIN-POT CLAVULANATE Inactive PREDNISONE 20 MG ORAL TABLET 2 po qd x 4 days PREDNISONE 20 MG ORAL TABLET 157496 PREDNISONE Inactive AMOXICILLIN 500 MG ORAL TABLET Take two tablets by mouth every 12 hours for 10 days AMOXICILLIN 500 MG ORAL TABLET 361603 AMOXICILLIN Inactive Advance Directives Directive Description Start Date PERMISSION TO SHARE Immunizations Vaccine Administration Date Value Standard Description Seasonal influenza vaccine, injectable, preservative free, for > 3 years old ( Afluria, FluLaval, Fluzone, Fluvirin, Fluarix, Agriflu(>=18 yo)) Fluzone preservative free (>=3 yrs.) [[id number]] Influenza, seasonal, injectable, preservative free Adacel (Tetanus, reduced Diphtheria, and acellular Pertussis Immunization) Adacel [[id number]] tetanus toxoid, reduced diphtheria toxoid, and acellular [...] Panel - Chemistry sodium, serum 137 mmol/L 633-610 3994/08/14 carbon dioxide, venous blood 29.7 mmol/L 21.0-32.0 potassium, serum 4.3 mmol/L 3.5-5.2 chloride, serum 99 mmol/L 98-107 blood glucose 123 mg/dL 65-110 urea nitrogen, blood 12 mg/dL 7-18 creatinine, serum 0.84 mg/dL 0.60-1.30 alanine aminotransferase (SGPT), serum 48 U/L 12-78 aspartate aminotransferase (SGOT), serum 26 U/L 15-37 calcium, serum 9.4 mg/dL 8.5-10.1 bilirubin, serum, total 1.60 mg/dL 0.00-1.00 cholesterol, serum 141 mg/dL 876-901 6682/08/14 triglyceride, serum, fasting 54 mg/dL 30-200 HDL [...] ... - Chemistry sodium, serum 137 mmol/L 400-388 1985/04/23 carbon dioxide, venous blood 28.4 mmol/L 21.0-32.0 [...] Negative Negative nitrite, urine, semiquantitative Negative Negative bilirubin, urine Negative Negative glucose, urine, semiquantitative Negative Negative ketones, urine, by test strip Negative Negative urine color Yellow Colorless;Lightyellow;Straw;Yellow appearance, [...] color Yellow Colorless;Lightyellow;Straw;Yellow Lab Report: VITAMIN D, 25-HYDROXY/[id number] - Chemistry vitamin D 25-hydroxy, serum 18 ng/mL 30-100 vitamin D 25-hydroxy, serum 44 ng/mL 30-100 Encounters Code Encounter Date Provider Facility CPT-14993 Level 3 Est. Patient 10:49:01 CDT Manish Castrejon [facility] CPT-73766 Level 3 Est. Patient 11:35:07 CDT Elijahzeyad Chasel [facility] CPT-98159 Level 3 Est. Patient 17:22:36 CDT Tracy Frey [facility] CPT-98682 Level 3 Est. Patient 16:06:03 CDT Elijahudaydenise Uriosteguigretal [facility] CPT-07146 Level 3 Est. Patient 09:57:24 CDT Elijahzeyad Moodygretal [facility] CPT-83250 Level 3 Est. Patient 16:31:04 CDT Иван Mooney MD [facility] CPT-93431 Level 4 Est. Patient 12:02:18 CDT Hector Love MD [facility] CPT-14641 Level 3 Est. Patient 16:14:45 CDT Hector Love MD [facility] CPT-02891 Level 3 Est. Patient 16:53:35 CDT Иван Mooney MD [facility] CPT-30063 Level 3 Est. Patient 15:57:13 CDT Martha Nikia [facility] CPT-78519 Level 3 Est. Patient 14:30:47 PHOTOGRAPHIC COLORIST Hector Love MD [facility] CPT-29938 Level 3 Est. Patient 14:50:45 CDT Hector Love MD [facility] CPT-29128 Level 3 Est. Patient 21:17:30 CDT Jen Crystal MD, PhD [facility] CPT-89384 Level 3 Est. Patient 09:32:55 CDT Hector Love MD [facility]-61451 Level 3 Est. Patient 15:11:08 PHOTOGRAPHIC COLORIST Иван Mooney MD [facility] CPT-76681 Level 3 Est. Patient 16:38:53 PHOTOGRAPHIC COLORIST Hector Love MD [facility] CPT-56422 Level 3 Est. Patient 15:46:05 CDT Hector Love MD [facility] CPT-48874 Level 3 Est. Patient 13:59:39 CDT Hector Love MD [facility] CPT-26706 Level 3 Est. Patient 14:44:46 PHOTOGRAPHIC COLORIST Hector Love MD [facility] CPT-58482 Level 3 Est. Patient 17:12:27 CDT Hector Love MD [facility] CPT-66485 Level 3 Est. Patient 15:30:32 CDT Hector Love MD [facility] CPT-47930 Level 3 Est. Patient 14:24:52 CDT Иван oMoney MD [facility] CPT-57954 Level 3 Est. Patient 14:08:38 PHOTOGRAPHIC COLORIST Hector Love MD [facility] Procedures Code Procedure Name Date Entry Date Standard Description CPT-32370 Chest, 2 views 11:04:30 CDT CPT-74394 Venipuncture Draw Fee 16:18:26 CDT CPT-52703 TB Skin Test 09:57:25 CDT CPT-000 Give Appropriate Flu Vaccine 16:22:23 PHOTOGRAPHIC COLORIST CPT-50276 Free T4 - LAB USE ONLY 11:38:58 CDT CPT-94582 TSH - LAB USE ONLY 11:38:58 CDT CPT-58347 Venipuncture Draw Fee 11:38:58 CDT CPT-96703 Fluzone Quadrivalent Intramuscular Suspension 0.5 ML 16: 12:26 PHOTOGRAPHIC COLORIST CPT-52519 Immunization Single Admin 16:12:26 PHOTOGRAPHIC COLORIST CPT-J0561 Bicillin LA 1,200,000 u (PCN G Benzathine) 16:40:23 CDT CPT-58031 Abx/Therapy Injection 16:40:22 CDT CPT-J0561 Bicillin LA 1,200,000 u (PCN G Benzathine) 16:15:35 CDT CPT-65022 Immunization Single Admin 16:11:28 PHOTOGRAPHIC COLORIST CPT-22714 Fluzone Quadrivalent Intramuscular Suspension 0.5 ML 16: 11:28 PHOTOGRAPHIC COLORIST CPT-12739 Administration single or combination vaccine inc oral 13 :57:23 CDT CPT-15372 Menactra Intramuscular Injectable 13:57:23 CDT CPT-65428 First Vx Component - Ix admin via ID IM or jet inj without physician counseling 16:42:17 PHOTOGRAPHIC COLORIST CPT-57459 Fluzone preservative free (>=3 yrs.) 16:42:17 PHOTOGRAPHIC COLORIST 06/03 CPT-27930 Venipuncture Draw Fee 16:29:01 CDT CPT-69959 Chest 2V Frontal and Lat 16:23:56 CDT CPT-19616 Administration single or combination vaccine inc oral 13 :39:17 PHOTOGRAPHIC COLORIST CPT-97046 Tdap 13:39:17 PHOTOGRAPHIC COLORIST
--- OUTSIDE RECORDS SUMMARY | 2017-11-06 02:18 | XMS REPORT | Clinical Summary ---
Author Author Admin, QIE Organization [facility] Address Unknown Phone Unavailable Allergies, Adverse Reactions, [...] care facility Fatigue 780.79 Active Manish Castrejon CANVAS MARKER Other malaise and fatigue Body Mass Index 34.0-34.9 Adult Active Manish Castrejon CANVAS MARKER Body Mass Index 34.0-34.9, adult HYPERTENSION ICD-401.9 [...] Gastroenteritis, viral, acute ICD-008.8 Inactive Martha Montejo CANVAS MARKER Bronchitis ICD-490 Inactive Hector Love MD 2014 [...] MG ORAL CAPSULE 2 po BID TACROLIMUS 48552432487 Active Hector Love MD Active CETIRIZINE HCL 10 MG ORAL TABLET 1 po qd PRN Allergies CETIRIZINE HCL 69918580748 Active Hector Love MD Active LISINOPRIL 5 MG ORAL TABLET 1.5 po qd LISINOPRIL 12606252851 Vivek Love MD Active FLUTICASONE PROPIONATE 50 MCG/ACT NASAL SUSPENSION 2 sprays/nostril qd PRN Congestion/Allergies FLUTICASONE PROPIONATE 00608570156 Active Hector Love MD Active VITAMIN C 500 MG ORAL TABLET CHEWABLE ASCORBIC ACID 20888505605 No Longer Active Hector Love MD Active PREDNISONE 20 MG ORAL TABLET 1 tablet daily x 2 days PREDNISONE 77309882727 No Longer Active Manish Castrejon APRN Active AMOXICILLIN 500 MG ORAL TABLET Take two tablets by mouth every 12 hours for 10 days AMOXICILLIN 38222829862 No Longer Active Иван Mooney MD Active PREDNISONE 20 MG ORAL TABLET 2 po qd x 4 days PREDNISONE 45201701958 No Longer Active Hector Love MD Active HYDROCODONE-ACETAMINOPHEN 5-325 MG ORAL TABLET 1/2 to 1 po q 4 hours prn pain HYDROCODONE-ACETAMINOPHEN 14641199046 No Longer Active Hector Love MD Active AUGMENTIN 875-125 MG ORAL TABLET 1 po BID x 10 days AMOXICILLIN-POT CLAVULANATE 90947175426 No Longer Active Hector Love MD Active FLONASE ALLERGY RELIEF 50 MCG/ACT NASAL SUSPENSION 2 sprays each nostril daily PRN allergies FLUTICASONE PROPIONATE 37901971545 No Longer Active Hector Love MD Active AMOXICILLIN 500 MG ORAL CAPSULE 1 cap by mouth three times a day AMOXICILLIN 73660116263 No Longer Active Manish Castrejon APRN Active KEFLEX 500 MG ORAL CAPSULE 1 tab po tid CEPHALEXIN 80871669015 No Longer Active Jillina Fradebora GARCIA Active AMOXICILLIN 500 MG ORAL TABLET 2 tabs twice a day for 10 days AMOXICILLIN 57400079368 No Longer Active Jilldenise Fradebora GARCIA Active ZOFRAN 4 MG ORAL TABLET 1 po q6hr PRN Nausea ONDANSETRON HCL 67569623457 No Longer Active Ramona Diggs LPN Active AMOXICILLIN 500 MG ORAL CAPSULE 2 po BID x 10 days AMOXICILLIN 01995717369 No Longer Active Martha Montejo APRN Active AUGMENTIN 875-125 MG ORAL TABLET 1 tab by mouth twice daily with food AMOXICILLIN-POT CLAVULANATE 02548193172 No Longer Active Hector Love MD Active LEVAQUIN 500 MG ORAL TABLET 1 pill by mouth daily LEVOFLOXACIN 59526221793 No Longer Active Jen Crystal MD PhD Active KETOCONAZOLE 2 % EXTERNAL CREAM apply twice a day to rash KETOCONAZOLE 34937256006 No Longer Active Hector Love MD Active AUGMENTIN 875-125 MG ORAL TABLET 1 tab by mouth twice daily with food AMOXICILLIN-POT CLAVULANATE 31983120747 No Longer Active Иван Mooney MD Active LOTRISONE 1-0.05 % EXTERNAL CREAM Apply twice a day to affected area CLOTRIMAZOLE-BETAMETHASONE 91508873736 No Longer Active Иван Mooney MD Active FEXOFENADINE HCL 180 MG ORAL TABLET 1 Daily FEXOFENADINE HCL 99637645209 No Longer Active Hector Love MD Active PROGRAF 0.5 MG ORAL CAPSULE Take one by mouth daily with 1 mg TACROLIMUS 76801218013 No Longer Active Hector Love MD Active AMOXICILLIN 500 MG ORAL CAPSULE 2 po BID x 10 days AMOXICILLIN 10943261478 No Longer Active Hector Love MD Active RAPAMUNE 1 MG ORAL TABLET 3 tabs in the am SIROLIMUS 51262342447 No Longer Active Hector Love MD Active AMOXICILLIN 500 MG ORAL CAPSULE 2 po BID x 10 days AMOXICILLIN 95281433707 No Longer Active Hector Love MD Active LORTAB 5-500 MG ORAL TABLET 1/2 to 1 tablet by mouth every 4 hours as needed for pain HYDROCODONE-ACETAMINOPHEN 84669977389 No Longer Active Hector Love MD Active FLUTICASONE PROPIONATE 50 MCG/ACT NASAL SUSPENSION INSTILL 2 SPRAYS IN EACH NOSTRIL Q D FLUTICASONE PROPIONATE 90376586727 No Longer Active Hector Love MD Active PROGRAF 1 MG ORAL CAPSULE 1 po bid TACROLIMUS 96927561635 No Longer Active Hector Love MD Active AMOXICILLIN 875 MG ORAL TABLET 1 tab by mouth twice daily AMOXICILLIN 59890211949 No Longer Active Hector Love MD Active AMOXICILLIN 500 MG ORAL CAPSULE 2 po BID x 10 days AMOXICILLIN 57861289233 No Longer Active Hector Love MD Active AUGMENTIN 875-125 MG ORAL TABLET 1 tab by mouth twice daily with food AMOXICILLIN-POT CLAVULANATE 99881440626 No Longer Active Hector Love MD Active AZITHROMYCIN 250 MG ORAL TABLET 2 po qd x 1 day, then 1 po qd x 4 days 06/19 AZITHROMYCIN 28900917898 No Longer Active Hector Love MD Active CETIRIZINE HCL 10 MG ORAL TABLET 1 PO Q D CETIRIZINE HCL 75915397640 No Longer Active Waleska Granton Active PROGRAF 1 MG ORAL CAPSULE 1 po bid PROGRAF 1 MG ORAL CAPSULE 462929 TACROLIMUS Inactive FLUTICASONE PROPIONATE 50 MCG/ACT NASAL SUSPENSION INSTILL 2 SPRAYS IN EACH NOSTRIL Q D FLUTICASONE PROPIONATE 50 MCG/ACT NASAL SUSPENSION 2466875 FLUTICASONE PROPIONATE Inactive LORTAB 5-500 MG ORAL TABLET 1/2 to 1 tablet by mouth every 4 hours as needed for pain LORTAB 5-500 MG ORAL TABLET HYDROCODONE- ACETAMINOPHEN Inactive RAPAMUNE 1 MG ORAL TABLET 3 tabs in the am RAPAMUNE 1 MG ORAL TABLET 138268 SIROLIMUS Inactive PROGRAF 0.5 MG ORAL CAPSULE Take one by mouth daily with 1 mg PROGRAF 0.5 MG ORAL CAPSULE 043150 TACROLIMUS Inactive FEXOFENADINE HCL 180 MG ORAL TABLET 1 Daily FEXOFENADINE HCL 180 MG ORAL TABLET 565843 FEXOFENADINE HCL Inactive LOTRISONE 1-0.05 % EXTERNAL CREAM Apply twice a day to affected area LOTRISONE 1-0.05 % EXTERNAL CREAM 723937 CLOTRIMAZOLE- BETAMETHASONE Inactive KETOCONAZOLE 2 % EXTERNAL CREAM apply twice a day to rash KETOCONAZOLE 2 % EXTERNAL CREAM 530106 KETOCONAZOLE Inactive AUGMENTIN 875-125 MG ORAL TABLET 1 tab by mouth twice daily with food AUGMENTIN 875-125 MG ORAL TABLET 676752 AMOXICILLIN-POT CLAVULANATE Inactive ZOFRAN 4 MG ORAL TABLET 1 po q6hr PRN Nausea ZOFRAN 4 MG ORAL TABLET 750662 ONDANSETRON HCL Inactive AMOXICILLIN 500 MG ORAL TABLET 2 tabs twice a day for 10 days AMOXICILLIN 500 MG ORAL TABLET 064493 AMOXICILLIN Inactive FLONASE ALLERGY RELIEF 50 MCG/ACT NASAL SUSPENSION 2 sprays each nostril daily PRN allergies FLONASE ALLERGY RELIEF 50 MCG/ACT NASAL SUSPENSION 7533540 FLUTICASONE PROPIONATE Inactive HYDROCODONE-ACETAMINOPHEN 5-325 MG ORAL TABLET 1/2 to 1 po q 4 hours prn pain HYDROCODONE-ACETAMINOPHEN 5-325 MG ORAL TABLET 119763 HYDROCODONE-ACETAMINOPHEN Inactive PREDNISONE 20 MG ORAL TABLET 1 tablet daily x 2 days PREDNISONE 20 MG ORAL TABLET 175933 PREDNISONE Inactive VITAMIN C 500 MG ORAL TABLET CHEWABLE VITAMIN C 500 MG ORAL TABLET CHEWABLE ASCORBIC ACID Inactive AMOXICILLIN 500 MG ORAL CAPSULE 2 po BID x 10 days AMOXICILLIN 500 MG ORAL CAPSULE 249443 AMOXICILLIN Inactive AMOXICILLIN 875 MG ORAL TABLET 1 tab by mouth twice daily AMOXICILLIN 875 MG ORAL TABLET 300371 AMOXICILLIN Inactive AMOXICILLIN 500 MG ORAL CAPSULE 2 po BID x 10 days AMOXICILLIN 500 MG ORAL CAPSULE 930965 AMOXICILLIN Inactive AMOXICILLIN 500 MG ORAL CAPSULE 2 po BID x 10 days AMOXICILLIN 500 MG ORAL CAPSULE 306384 AMOXICILLIN Inactive AUGMENTIN 875-125 MG ORAL TABLET 1 tab by mouth twice daily with food AUGMENTIN 875-125 MG ORAL TABLET 976200 AMOXICILLIN-POT CLAVULANATE Inactive LEVAQUIN 500 MG ORAL TABLET 1 pill by mouth daily LEVAQUIN 500 MG ORAL TABLET 716327 LEVOFLOXACIN Inactive AMOXICILLIN 500 MG ORAL CAPSULE 2 po BID x 10 days AMOXICILLIN 500 MG ORAL CAPSULE 310531 AMOXICILLIN Inactive AMOXICILLIN 500 MG ORAL CAPSULE 1 cap by mouth three times a day AMOXICILLIN 500 MG ORAL CAPSULE 927016 AMOXICILLIN Inactive AUGMENTIN 875-125 MG ORAL TABLET 1 po BID x 10 days AUGMENTIN 875-125 MG ORAL TABLET 011706 AMOXICILLIN-POT CLAVULANATE Inactive PREDNISONE 20 MG ORAL TABLET 2 po qd x 4 days PREDNISONE 20 MG ORAL TABLET 160183 PREDNISONE Inactive AMOXICILLIN 500 MG ORAL TABLET Take two tablets by mouth every 12 hours for 10 days AMOXICILLIN 500 MG ORAL TABLET 045117 AMOXICILLIN Inactive Advance Directives Directive Description Start Date PERMISSION TO SHARE Immunizations Vaccine Administration Date Value Standard Description Seasonal influenza vaccine, injectable, preservative free, for > 3 years old ( Afluria, FluLaval, Fluzone, Fluvirin, Fluarix, Agriflu(>=18 yo)) Fluzone preservative free (>=3 yrs.) [[id number]] Influenza, seasonal, injectable, preservative free Adacel (Tetanus, reduced Diphtheria, and acellular Pertussis Immunization) Adacel [CEZ875] tetanus toxoid, reduced diphtheria toxoid, and acellular [...] Panel - Chemistry sodium, serum 137 mmol/L [phone]/08/14 carbon dioxide, venous blood 29.7 mmol/L 21.0-32.0 potassium, serum 4.3 mmol/L 3.5-5.2 chloride, serum 99 mmol/L 98-107 blood glucose 123 mg/dL 65-110 urea nitrogen, blood 12 mg/dL 7-18 creatinine, serum 0.84 mg/dL 0.60-1.30 alanine aminotransferase (SGPT), serum 48 U/L 12-78 aspartate aminotransferase (SGOT), serum 26 U/L 15-37 calcium, serum 9.4 mg/dL 8.5-10.1 bilirubin, serum, total 1.60 mg/dL 0.00-1.00 cholesterol, serum 141 mg/dL 011-164 1561/08/14 triglyceride, serum, fasting 54 mg/dL 30-200 HDL [...] ... - Chemistry sodium, serum 137 mmol/L [phone]/04/23 carbon dioxide, venous blood 28.4 mmol/L 21.0-32.0 [...] semiquantitative 6.0 5.0-8.5 Lab Report: VITAMIN D, 25-HYDROXY/[id number] - Chemistry vitamin D 25-hydroxy, serum 18 ng/mL 30-100 vitamin D 25-hydroxy, serum 44 ng/mL 30-100 Encounters Code Encounter Date Provider Facility CPT-03374 Level 3 Est. Patient 10:49:01 CDT Manish Castrejon [facility] CPT-51443 Level 3 Est. Patient 11:35:07 CDT Elijahzeyad Chasel [facility] CPT-25416 Level 3 Est. Patient 17:22:36 CDT Tracy Frey [facility] CPT-99268 Level 3 Est. Patient 16:06:03 CDT Elijahudaydenise Uriosteguigretal [facility] CPT-19534 Level 3 Est. Patient 09:57:24 CDT Elijahzeyad Moodygretal [facility] CPT-30382 Level 3 Est. Patient 16:31:04 CDT Иван Mooney MD [facility] CPT-90782 Level 4 Est. Patient 12:02:18 CDT Hector Love MD [facility] CPT-74925 Level 3 Est. Patient 16:14:45 CDT Hector Love MD [facility] CPT-90002 Level 3 Est. Patient 16:53:35 CDT Иван Mooney MD [facility] CPT-99115 Level 3 Est. Patient 15:57:13 CDT Martha Nikia [facility] CPT-89154 Level 3 Est. Patient 14:30:47 KENO TERMINAL OPERATOR Hector Love MD [facility] CPT-09262 Level 3 Est. Patient 14:50:45 CDT Hector oLve MD [facility] CPT-06998 Level 3 Est. Patient 21:17:30 CDT Jen Crystal MD, PhD [facility] CPT-97346 Level 3 Est. Patient 09:32:55 CDT Hector Love MD [facility]-13494 Level 3 Est. Patient 15:11:08 KENO TERMINAL OPERATOR Иван Mooney MD [facility] CPT-86370 Level 3 Est. Patient 16:38:53 KENO TERMINAL OPERATOR Hector Love MD [facility] CPT-03573 Level 3 Est. Patient 15:46:05 CDT Hector Love MD [facility] CPT-97770 Level 3 Est. Patient 13:59:39 CDT Hector Love MD [facility] CPT-84882 Level 3 Est. Patient 14:44:46 KENO TERMINAL OPERATOR Hector Love MD [facility] CPT-97759 Level 3 Est. Patient 17:12:27 CDT Hector Love MD [facility] CPT-05205 Level 3 Est. Patient 15:30:32 CDT Hector Love MD [facility] CPT-12037 Level 3 Est. Patient 14:24:52 CDT Иван Mooney MD [facility] CPT-58345 Level 3 Est. Patient 14:08:38 KENO TERMINAL OPERATOR Hector Love MD [facility] Procedures Code Procedure Name Date Entry Date Standard Description CPT-20079 Chest, 2 views 11:04:30 CDT CPT-06530 Venipuncture Draw Fee 16:18:26 CDT CPT-19294 TB Skin Test 09:57:25 CDT CPT-000 Give Appropriate Flu Vaccine 16:22:23 KENO TERMINAL OPERATOR CPT-60816 Free T4 - LAB USE ONLY 11:38:58 CDT CPT-30388 TSH - LAB USE ONLY 11:38:58 CDT CPT-53478 Venipuncture Draw Fee 11:38:58 CDT CPT-76949 Fluzone Quadrivalent Intramuscular Suspension 0.5 ML 16: 12:26 KENO TERMINAL OPERATOR CPT-10297 Immunization Single Admin 16:12:26 KENO TERMINAL OPERATOR CPT-J0561 Bicillin LA 1,200,000 u (PCN G Benzathine) 16:40:23 CDT CPT-80326 Abx/Therapy Injection 16:40:22 CDT CPT-J0561 Bicillin LA 1,200,000 u (PCN G Benzathine) 16:15:35 CDT CPT-34066 Immunization Single Admin 16:11:28 KENO TERMINAL OPERATOR CPT-22318 Fluzone Quadrivalent Intramuscular Suspension 0.5 ML 16: 11:28 KENO TERMINAL OPERATOR CPT-86337 Administration single or combination vaccine inc oral 13 :57:23 CDT CPT-37525 Menactra Intramuscular Injectable 13:57:23 CDT CPT-14293 First Vx Component - Ix admin via ID IM or jet inj without physician counseling 16:42:17 KENO TERMINAL OPERATOR CPT-99243 Fluzone preservative free (>=3 yrs.) 16:42:17 KENO TERMINAL OPERATOR 06/03 CPT-25458 Venipuncture Draw Fee 16:29:01 CDT CPT-03844 Chest 2V Frontal and Lat 16:23:56 CDT CPT-72641 Administration single or combination vaccine inc oral 13 :39:17 KENO TERMINAL OPERATOR CPT-90488 Tdap 13:39:17 KENO TERMINAL OPERATOR
--- OUTSIDE RECORDS SUMMARY | 2017-11-06 02:19 | XMS REPORT | Continuity of Care Document ---
Demographics x Preferred Language Unknown Marital Status Unknown Amish Affiliation Unknown Race Unknown Ethnic Group Unknown Author Author [facility] Organization [facility] Address Unknown Phone Unavailable Allergies Active Description Code Type Severity Reaction Onset Reported/Identified Relationship to Patient Clinical Status Yes acetaminophen 1605 Drug Allergy N/A N/A Confirmed or Verified Yes Benadryl 5527 Drug Allergy N/A N/A Yes diphenhydramine 4787 Drug Allergy N/A N/A Confirmed or Verified Yes Ibuprofen 2377 Drug Allergy N/ A N/A Yes MYCINS Drug Allergy N/A N/A Yes Promethazine 4459 Drug Allergy N/A N/A Yes Rocephin 6748 Drug Allergy N/A N/A Yes Tylenol 6808 Drug Allergy N/A N/A Yes myicin Drug N/A N/ A Yes Phenergan Drug N/A N/A Yes promethazine Drug N/A N/A Yes Rocephin Drug N/A N/A Yes ceftriaxone [id number] Drug Allergy Unknown N/A 08/13/2012 Yes promethazine [id number] Drug Allergy Unknown N/A 08/13/2012 Medications There is no data. Problems Date Dx Coded Attending Type Code Diagnosis Diagnosed By 09/16/2011 D 719.06 JOINT EFFUSION-L/LEG 09/16/2011 D 959.7 LOWER LEG INJURY NOS 09/16/2011 D E849.0 ACCIDENT IN HOME 09/16/2011 D E927.0 OVEREXERTION FROM SUDDEN 04/28/2012 Other 919.8 SUPERFICIAL INJURY NEC 04/28/2012 Other E917.4 STAT OB W /O SUB FALL NEC 01/26/2013 Other 719.46 01/26/2013 Other E927.0 06/11/2016 Other V42.7 LIVER TRANSPLANT STATUS 06/11/2016 Other V42.7 LIVER TRANSPLANT STATUS 06/11/2016 Other V42.7 LIVER TRANSPLANT STATUS 06/11/2016 Other V42.7 LIVER TRANSPLANT STATUS 06/11/2016 Other V42.7 LIVER TRANSPLANT STATUS 06/11/2016 Other V42.7 LIVER TRANSPLANT STATUS 06/11/2016 Other V42.7 LIVER TRANSPLANT STATUS 06/11/2016 Other V42.7 LIVER TRANSPLANT STATUS 06/11/2016 Other V42.7 LIVER TRANSPLANT STATUS 06/11/2016 Other V42.7 06/11/2016 Other V42.7 06/11/2016 Other V42.7 06/11/2016 Other V42.7 06/11/2016 Other V42.7 06/11/2016 Other V42.7 06/11/2016 Other V42.7 06/11/2016 Other V42.7 06/11/2016 Other 780.60 FEVER, UNSPECIFIED 06/11/2016 Other 786.2 COUGH 06/11/2016 Other V42.7 LIVER TRANSPLANT STATUS 06/11/2016 Other V42.7 LIVER TRANSPLANT STATUS 06/11/2016 Other V42.7 LIVER TRANSPLANT STATUS 06/11/2016 Other V42.7 LIVER TRANSPLANT STATUS 06/11/2016 Other V42.7 LIVER TRANSPLANT STATUS 06/11/2016 Other V42.7 LIVER TRANSPLANT STATUS 06/11/2016 Other V42.7 LIVER TRANSPLANT STATUS 06/11/2016 Other Z94.4 LIVER TRANSPLANT STATUS 06/11/2016 Other Z94.4 LIVER TRANSPLANT STATUS 06/11/2016 Other Z94.4 LIVER TRANSPLANT STATUS 06/11/2016 Other Z94.4 LIVER TRANSPLANT STATUS 06/11/2016 PERI FLYNN APRN Other J06.9 ACUTE UPPER RESPIRATORY INFECTION, UNSPECIFIED 06/11/2016 PERI FLYNN APRN Other R53.81 OTHER MALAISE 06/12/2016 BELÉN ZUÑIGA Other J09.X2 FLU DUE TO IDENT NOVEL INFLUENZA A VIRUS W OTH RESP MANIFEST 06/12/2016 BELÉN ZUÑIGA Other Z94.4 LIVER TRANSPLANT STATUS 10/04/2016 Other V42.7 LIVER TRANSPLANT STATUS 10/04/2016 Other V42.7 LIVER TRANSPLANT STATUS 10/04/2016 Other V42.7 LIVER TRANSPLANT STATUS 10/04/2016 Other V42.7 LIVER TRANSPLANT STATUS 10/04/2016 Other V42.7 LIVER TRANSPLANT STATUS 10/04/2016 Other V42.7 LIVER TRANSPLANT STATUS 10/04/2016 Other V42.7 LIVER TRANSPLANT STATUS 10/04/2016 Other V42.7 LIVER TRANSPLANT STATUS 10/04/2016 Other V42.7 LIVER TRANSPLANT STATUS 10/04/2016 Other V42.7 10/04/2016 Other V42.7 10/04/2016 Other V42.7 10/04/2016 Other V42.7 10/04/2016 Other V42.7 10/04/2016 Other V42.7 10/04/2016 Other V42.7 10/04/2016 Other V42.7 10/04/2016 Other 780.60 FEVER, UNSPECIFIED 10/04/2016 Other 786.2 COUGH 10/04/2016 Other V42.7 LIVER TRANSPLANT STATUS 10/04/2016 Other V42.7 LIVER TRANSPLANT STATUS 10/04/2016 Other V42.7 LIVER TRANSPLANT STATUS 10/04/2016 Other V42.7 LIVER TRANSPLANT STATUS 10/04/2016 Other V42.7 LIVER TRANSPLANT STATUS 10/04/2016 Other V42.7 LIVER TRANSPLANT STATUS 10/04/2016 Other V42.7 LIVER TRANSPLANT STATUS 10/04/2016 Other Z94.4 LIVER TRANSPLANT STATUS 10/04/2016 Other Z94.4 LIVER TRANSPLANT STATUS 10/04/2016 Other Z94.4 LIVER TRANSPLANT STATUS 10/04/2016 Other Z94.4 LIVER TRANSPLANT STATUS 12/19/2016 Hector Love MD Z02.1 Pre employment physical examination 12/29/2016 Hector Love MD Z20.828 Exposure to mononucleosis 12/29/2016 LUZ MONTIEL J02.9 Acute pharyngitis, unspecified 01/15/2017 Hector Love MD Z56.6 Stress at work 04/27/2017 W H52.13 Myopia, bilateral 04/27/2017 W H52.13 Myopia, bilateral 04/27/2017 W H52.223 Regular astigmatism, bilateral 05/05/2017 W H52.13 Myopia, bilateral 05/05/2017 W H52.223 Regular astigmatism, bilateral 07/06/2017 Other A08.4 VIRAL INTESTINAL INFECTION, UNSPECIFIED 08/18/2017 Hector Love MD I10 Hypertension, benign essential 08/18/2017 Hector Love MD Z13.9 Health screening 08/18/2017 Hector Love MD Z94.4 Liver replaced by transplant 09/07/2017 Hector Love MD R53.83 Fatigue 09/07/2017 Hector Love MD Z68.34 Body Mass Index 34.0-34.9 Adult Procedures Code Description [place] [address] SPECIAL SUPPLIES JULIO GONZALES, SAUL R 09/16/2011 87518 HETEROPHILE ANTIBODIES 01/17/2015 V2020 [employer] frames purchases 06/05/2016 89580 CULTURE ROSELINE SHAH LUZ THOMPSON 12/29/2016 61589 EYE EXAM ESTABLISHED PAT 04/27/2017 20239 REFRACTION 04/27/2017 V2020 [employer] frames purchases 04/27/2017 V2111 Spherocylindr 7.25d/.25- 2.25 04/27/2017 V2112 Spherocylindr 7.25d/2.25-4d 04/27/2017 V2782 Lens, 1.54-1.65 p/1.60- 1.79g 04/27/2017 Results Test Result Range MONOSP - 01/17/15 00:00 MONOSP N Negative CBC WITH DIFF - 03/12/15 00:00 BASO% 0.5 % 0-2 EOS% 6.3 % 0-7.0 HCT 41.6 % 41.9-52.0 HGB 14.6 G/DL 13.0-18.0 LYMPH% 34.9 % 20-40 MCH 29.7 PG 27-31 MCHC 35.1 G/DL 33-37 MCV 84.7 FL 80-94 MONO% 8.1 % 0-10.0 MPV 10.5 FL 7.3-10.4 NEUTRO% 50.0 % 40-70 PLT 230 10^3u 130-400 RBC 4.9 10^6u 4.7-6.1 RDW 12.6 % 11.5-15.5 WBC 12.3 10^3u 4.8-10.8 NEUTRO# 6.2 10^3u 1.5-7.5 LYMPH# 4.3 10^3u 0.9-4.0 MONO# 1.0 10^3u 0-0.8 EOS# 0.8 10^3u 0-0.6 BASO# 0.1 10^3u 0-0.1 IMM GRANULOCYTE % 0.2 % IMM GRANULOCYTE # 0.0 10^3u 0-5 CMP - 03/12/15 00:00 ALB 4.3 G/DL 3.5-5 ALP 64 IU/L 39-107 ALT 49 IU/L 12-65 AST 23 IU/L 10-42 BCR 17.9 10-20 BUN 15 MG/DL 7-18 CA 8.6 MG/DL 8.4-10.2 CL 101 MEQ/L 98-107 CO2 28.8 MEQ/L 22-28 CREA 0.84 MG/DL 0.6-1.3 EGFR 116 eGFR >=60 GLU 115 MG/DL 70-105 K 3.6 MEQ/L 3.5-5.1 NA 139 MEQ/L 134-145 OSMSC 279.3 MOSML 280-300 TBIL 1.1 MG/DL 0.1-1.0 TP 7.6 G/DL 6.0-8.3 Albumin/Globulin Ratio 1.3 0-8 Anion Gap 9.2 8-16 RAPID MYCOPLASMA - 03/12/15 00:00 RAPMYCO N Negative INFLU A B RAPID - 03/12/15 00:00 INFLRAP N Negative Encounters ACCT No. Visit Date/Time Discharge Status Pt. Type Provider Facility Loc./Unit Complaint [id number] 06/20/2015 00:15:00 06/20/2015 02:00:00 DIS Emergency ATA KRISHNAN [facility] EMR [id number] 03/12/2015 22:08:00 03/13/2015 00:45:00 DIS Emergency ALEJO DOTSON [facility] EMR [id number] 01/17/2015 17:44:00 01/17/2015 17:44:00 DIS Outpatient HECTOR LOVE [facility] [id number] 04/16/2014 00:00:00 Document Registration [id number] 04/16/2014 00:00:00 Document Registration [id number] 09/09/2017 09:27:01 ACT Unknown Hector Love MD [id number] 12/29/2016 17:02:00 12/29/2016 17:02:00 [id number]16/[facility] 13:24:00 Document Registration [id number] 09/09/2017 13:39:48 ACT Document Registration [id number] 07/24/2017 22:54:00 07/25/2017 00:28:00 DIS Emergency [facility] ED ED visit [id number] 01/14/2017 17:08:00 01/14/2017 18:30:00 DIS Emergency [facility] ED chest pain, tighness, fatigue [id number] 04/27/2017 09:30:00 Document Registration [id number] 04/27/2017 00:00:00 Document Registration [id number] 06/05/2016 00:00:00 Document Registration [id number] 10/04/2016 02:00:00 10/04/2016 03:05:00 DIS [facility] [id number] 06/12/2016 21:25:00 06/12/2016 23:10:00 DIS Emergency ZARA [facility] ER N/V [id number] 06/11/2016 13:25:00 06/11/2016 14:35:00 DIS Emergency PERI FLYNN APRN [facility] ER SORE THROAT [id number] 07/06/2017 23:11:00 Document Registration [id number] 11/12/2015 10:06:00 Document Registration [id number] 08/27/2015 09:45:00 Document Registration [id number] 05/17/2015 11:34:00 Document Registration [id number] 02/21/2015 07:41:00 Document Registration [id number] 08/30/2014 09:13:00 Document Registration [id number] 06/05/2014 09:50:00 Document Registration [id number] 05/08/2014 11:22:00 Document Registration [id number] 01/17/2014 10:18:00 Document Registration [id number] 12/06/2013 13:31:00 Document Registration [id number] 10/27/2013 12:01:00 Document Registration [id number] 08/12/2013 07:43:00 Document Registration [id number] 07/20/2013 15:10:00 Document Registration [id number] 05/17/2013 10:35:00 Document Registration [id number] 02/21/2013 07:17:00 Document Registration [id number] 02/14/2013 07:16:00 Document Registration [id number] 02/01/2013 07:08:00 Document Registration [id number] 01/26/2013 15:25:00 Document Registration [id number] 01/26/2013 07:02:00 Document Registration [id number] 01/18/2013 07:13:00 Document Registration [id number] 01/10/2013 08:09:00 Document Registration [id number] 01/05/2013 06:35:00 Document Registration [id number] 11/29/2012 09:14:00 Document Registration [id number] 09/18/2012 10:45:00 Document Registration [id number] 06/18/2012 11:54:00 Document Registration [id number] 05/31/2012 08:27:00 Document Registration [id number] 04/28/2012 12:00:00 Document Registration [id number] 04/27/2012 12:15:00 Document Registration [id number] 04/13/2012 10:33:00 Document Registration [id number] 03/30/2012 10:55:00 Document Registration [id number] 03/09/2012 07:45:00 Document Registration [id number] 03/02/2012 08:00:00 Document Registration
--- OUTSIDE RECORDS SUMMARY | 2017-11-06 02:19 | XMS REPORT | Clinical Summary ---
Author Author Admin, QIE Organization [facility] [employer] Address Unknown Phone Unavailable Allergies, Adverse Reactions, [...] Gastroenteritis, viral, acute 008.8 Resolved Martha Montejo BRIDGE WELDER Intestinal infection due to other organism, not [...] employment physical examination V70.0 Active Manish Castrejon BRIDGE WELDER Routine general medical examination at a health [...] Inactive Martha Montejo APRN Bronchitis ICD-490 Inactive Hecotr Love MD 2014 Pharyngitis ICD-462 Inactive Hector Love MD Ingrown toenail ICD-703.0 Inactive Hector Love MD Ingrown toenail, right ICD-703.0 Nils Love MD Medication List Medication Instructions Start Date Stop Date Generic Name NDC Status Provider Patient Instruction AMOXICILLIN 500 MG TABS Take two tablets by mouth every 12 hours for 10 days AMOXICILLIN [id number] No Longer Active Иван Mooney MD Active VITAMIN C 500 MG CHEW TAB ASCORBIC ACID 06568663115 Active Иван Mooney MD Active PREDNISONE 20 MG TAB 2 po qd x 4 days PREDNISONE 26387660100 No Longer Active Hector Love MD Active HYDROCODONE-ACETAMINOPHEN 5-325 MG TABS 1/2 to 1 po q 4 hours prn pain 11/06 HYDROCODONE-ACETAMINOPHEN 33077130457 No Longer Active Hector Love MD Active FLONASE ALLERGY RELIEF 50 MCG/ACT NASAL SUSP 2 spray each nostril daily prn allergies FLUTICASONE PROPIONATE 64645508563 Active Hector Love MD Active AUGMENTIN 875-125 MG TAB 1 po BID x 10 days AMOXICILLIN-POT CLAVULANATE 91424157417 No Longer Active Hector Love MD Active FLONASE ALLERGY RELIEF 50 MCG/ACT NASAL SUSP 2 sprays each nostril daily PRN allergies FLUTICASONE PROPIONATE 07167906621 No Longer Active Hector Love MD Active AMOXICILLIN 500 MG CAPS 1 cap by mouth three times a day AMOXICILLIN 62531509133 No Longer Active Jillina Lucía NOWAKN Active KEFLEX 500 MG CAP 1 tab po tid CEPHALEXIN 19850722706 No Longer Active Jillina Fradebora GARCIA Active AMOXICILLIN 500 MG TABS 2 tabs twice a day for 10 days AMOXICILLIN 21732317975 No Longer Active Jillina Fragretal BRIDGE WELDER Active ZYRTEC ALLERGY 10 MG CAPS 1 po qd CETIRIZINE HCL 04756187441 Active Hector Love MD Active PROGRAF 1 MG CAPS 2 tabs po bid TACROLIMUS 53898653796 Active Hector Love MD Active ZOFRAN 4 MG TABS 1 po q6hr PRN Nausea ONDANSETRON HCL 32743034243 No Longer Active Ramona Diggs LPN Active AMOXICILLIN 500 MG CAPS 2 po BID x 10 days AMOXICILLIN 39832372002 No Longer Active Martha Montejo APRN Active AUGMENTIN 875-125 MG TAB 1 tab by mouth twice daily with food AMOXICILLIN-POT CLAVULANATE 53351138517 No Longer Active Hector Love MD Active LEVAQUIN 500 MG TABS 1 pill by mouth daily LEVOFLOXACIN 52042315349 No Longer Active Jen Crystal MD PhD Active LISINOPRIL 5 MG TABS 1.5 tab qd LISINOPRIL 68808653058 Active Jen Crystal MD PhD Active KETOCONAZOLE 2 % CREA apply twice a day to rash KETOCONAZOLE 15876495368 No Longer Active Hector Love MD Active AUGMENTIN 875-125 MG TAB 1 tab by mouth twice daily with food AMOXICILLIN-POT CLAVULANATE 49948116547 No Longer Active Иван Mooney MD Active LOTRISONE 0.05-1 % CREAM Apply twice a day to affected area 07/19 CLOTRIMAZOLE-BETAMETHASONE 04482412471 No Longer Active Иван Mooney MD Active FEXOFENADINE HCL 180 MG TABS 1 Daily FEXOFENADINE HCL 65107454628 No Longer Active Hector Love MD Active PROGRAF 0.5 MG CAPS Take one by mouth daily with 1 mg TACROLIMUS 71723085328 No Longer Active Hector Lvoe MD Active AMOXICILLIN 500 MG CAPS 2 po BID x 10 days AMOXICILLIN 30875667092 No Longer Active Hector Love MD Active RAPAMUNE 1 MG TABS 3 tabs in the am SIROLIMUS 40508832053 No Longer Active Hector Love MD Active AMOXICILLIN 500 MG CAPS 2 po BID x 10 days AMOXICILLIN 76557334326 No Longer Active Hector Love MD Active LORTAB 5 5-500 MG TABS 1/2 to 1 tablet by mouth every 4 hours as needed for pain HYDROCODONE-ACETAMINOPHEN 25484396836 No Longer Active Hector Love MD Active FLUTICASONE PROPIONATE 50 MCG/ACT SUSP INSTILL 2 SPRAYS IN EACH NOSTRIL Q D FLUTICASONE PROPIONATE 46279014640 No Longer Active Hector Love MD Active PROGRAF 1 MG CAPS 1 po bid TACROLIMUS 25190917531 No Longer Active Hector Love MD Active AMOXICILLIN 875 MG TABS 1 tab by mouth twice daily AMOXICILLIN 14258398361 No Longer Active Hector Love MD Active AMOXICILLIN 500 MG CAPS 2 po BID x 10 days AMOXICILLIN 97995036609 No Longer Active Hector Love MD Active AUGMENTIN 875-125 MG TAB 1 tab by mouth twice daily with food AMOXICILLIN-POT CLAVULANATE 66944367318 No Longer Active Hector Love MD Active AZITHROMYCIN 250 MG TABS 2 po qd x 1 day, then 1 po qd x 4 days AZITHROMYCIN 31843290075 No Longer Active Hector Love MD Active CETIRIZINE HCL 10 MG TABS 1 PO Q D CETIRIZINE HCL 38616446001 No Longer Active [place] Active PROGRAF 1 MG CAPS 1 po bid PROGRAF 1 MG CAPS 440984 TACROLIMUS Inactive FLUTICASONE PROPIONATE 50 MCG/ACT SUSP INSTILL 2 SPRAYS IN EACH NOSTRIL Q D FLUTICASONE PROPIONATE 50 MCG/ACT SUSP 1182404 FLUTICASONE PROPIONATE Inactive LORTAB 5 5-500 MG TABS 1/2 to 1 tablet by mouth every 4 hours as needed for pain LORTAB 5 5-500 MG TABS HYDROCODONE- ACETAMINOPHEN Inactive RAPAMUNE 1 MG TABS 3 tabs in the am RAPAMUNE 1 MG TABS 189133 SIROLIMUS Inactive PROGRAF 0.5 MG CAPS Take one by mouth daily with 1 mg PROGRAF 0.5 MG CAPS 985650 TACROLIMUS Inactive FEXOFENADINE HCL 180 MG TABS 1 Daily FEXOFENADINE HCL 180 MG TABS 109655 FEXOFENADINE HCL Inactive LOTRISONE 0.05-1 % CREAM Apply twice a day to affected area 07/19 LOTRISONE 0.05-1 % CREAM 014269 CLOTRIMAZOLE-BETAMETHASONE Inactive KETOCONAZOLE 2 % CREA apply twice a day to rash KETOCONAZOLE 2 % CREA 359398 KETOCONAZOLE Inactive AUGMENTIN 875-125 MG TAB 1 tab by mouth twice daily with food AUGMENTIN 875-125 MG TAB 483708 AMOXICILLIN-POT CLAVULANATE Inactive ZOFRAN 4 MG TABS 1 po q6hr PRN Nausea ZOFRAN 4 MG TABS 953743 ONDANSETRON HCL Inactive AMOXICILLIN 500 MG TABS 2 tabs twice a day for 10 days AMOXICILLIN 500 MG TABS 851592 AMOXICILLIN Inactive FLONASE ALLERGY RELIEF 50 MCG/ACT NASAL SUSP 2 sprays each nostril daily PRN allergies FLONASE ALLERGY RELIEF 50 MCG/ACT NASAL SUSP 6342263 FLUTICASONE PROPIONATE Inactive HYDROCODONE-ACETAMINOPHEN 5-325 MG TABS 1/2 to 1 po q 4 hours prn pain 11/06 HYDROCODONE-ACETAMINOPHEN 5-325 MG TABS 590108 HYDROCODONE- ACETAMINOPHEN Inactive AMOXICILLIN 500 MG CAPS 2 po BID x 10 days AMOXICILLIN 500 MG CAPS 317981 AMOXICILLIN Inactive AMOXICILLIN 875 MG TABS 1 tab by mouth twice daily AMOXICILLIN 875 MG TABS 696093 AMOXICILLIN Inactive AMOXICILLIN 500 MG CAPS 2 po BID x 10 days AMOXICILLIN 500 MG CAPS 974175 AMOXICILLIN Inactive AMOXICILLIN 500 MG CAPS 2 po BID x 10 days AMOXICILLIN 500 MG CAPS 248984 AMOXICILLIN Inactive AUGMENTIN 875-125 MG TAB 1 tab by mouth twice daily with food AUGMENTIN 875-125 MG TAB 231092 AMOXICILLIN-POT CLAVULANATE Inactive LEVAQUIN 500 MG TABS 1 pill by mouth daily LEVAQUIN 500 MG TABS 318610 LEVOFLOXACIN Inactive AMOXICILLIN 500 MG CAPS 2 po BID x 10 days AMOXICILLIN 500 MG CAPS 416675 AMOXICILLIN Inactive AMOXICILLIN 500 MG CAPS 1 cap by mouth three times a day AMOXICILLIN 500 MG CAPS 127963 AMOXICILLIN Inactive AUGMENTIN 875-125 MG TAB 1 po BID x 10 days AUGMENTIN 875-125 MG TAB 286095 AMOXICILLIN-POT CLAVULANATE Inactive PREDNISONE 20 MG TAB 2 po qd x 4 days PREDNISONE 20 MG TAB 630524 PREDNISONE Inactive AMOXICILLIN 500 MG TABS Take two tablets by mouth every 12 hours for 10 days AMOXICILLIN 500 MG TABS 827501 AMOXICILLIN Inactive Advance Directives Directive Description Start Date PERMISSION TO SHARE Immunizations Vaccine Administration Date Value Standard Description Seasonal influenza vaccine, injectable, preservative free, for > 3 years old ( Afluria, FluLaval, Fluzone, Fluvirin, Fluarix, Agriflu(>=18 yo)) Fluzone preservative free (>=3 yrs.) [QHK274] Influenza, seasonal, injectable, preservative free Adacel (Tetanus, reduced Diphtheria, and acellular Pertussis Immunization) Adacel [YJY372] tetanus toxoid, reduced diphtheria toxoid, and acellular [...] 0.76-1.46 Encounters Code Encounter Date Provider Facility CPT-22389 Level 3 Est. Patient 09:57:24 CDT Elijahudaydenise Castrejon [facility] CPT-41076 Level 3 Est. Patient 16:31:04 CDT Иван Mooney MD [facility] CPT-06862 Level 4 Est. Patient 12:02:18 CDT Hector Love MD [facility] CPT-01611 Level 3 Est. Patient 16:14:45 CDT Hector Love MD [facility] CPT-07687 Level 3 Est. Patient 16:53:35 CDT Иван Mooney MD [facility] CPT-10509 Level 3 Est. Patient 15:57:13 CDT Martha Montejo [facility] CPT-03670 Level 3 Est. Patient 14:30:47 HYSTER MACHINE OPERATOR Hector Love MD [facility] CPT-56196 Level 3 Est. Patient 14:50:45 CDT Hector Love MD [facility] CPT-54343 Level 3 Est. Patient 21:17:30 CDT Jen Crystal MD [facility] CPT-49556 Level 3 Est. Patient 09:32:55 CDT Hector Love MD [facility] CPT-34825 Level 3 Est. Patient 15:11:08 HYSTER MACHINE OPERATOR Иван Mooney MD [facility] CPT-75434 Level 3 Est. Patient 16:38:53 HYSTER MACHINE OPERATOR Hector Love MD [facility] CPT-69424 Level 3 Est. Patient 15:46:05 CDT Hector Love MD [facility] CPT-86264 Level 3 Est. Patient 13:59:39 CDT Hector Love MD [facility] CPT-45382 Level 3 Est. Patient 14:44:46 HYSTER MACHINE OPERATOR Hector Love MD [facility] CPT-67656 Level 3 Est. Patient 17:12:27 CDT Hector Love MD [facility] CPT-32790 Level 3 Est. Patient 15:30:32 CDT Hector Love MD [facility] CPT-11517 Level 3 Est. Patient 14:24:52 CDT Иван Mooney MD [facility] CPT-66886 Level 3 Est. Patient 14:08:38 HYSTER MACHINE OPERATOR Hector Love MD [facility] Procedures Code Procedure Name Date Entry Date Standard Description CPT-88618 TB Skin Test 09:57:25 CDT CPT-000 Give Appropriate Flu Vaccine 16:22:23 HYSTER MACHINE OPERATOR CPT-53975 Free T4 - LAB USE ONLY 11:38:58 CDT CPT-13027 TSH - LAB USE ONLY 11:38:58 CDT CPT-64734 Venipuncture Draw Fee 11:38:58 CDT CPT-93241 Fluzone Quadrivalent Intramuscular Suspension 0.5 ML 16: 12:26 HYSTER MACHINE OPERATOR CPT-25159 Immunization Single Admin 16:12:26 HYSTER MACHINE OPERATOR CPT-J0561 Bicillin LA 1,200,000 u (PCN G Benzathine) 16:40:23 CDT CPT-25075 Abx/Therapy Injection 16:40:22 CDT CPT-J0561 Bicillin LA 1,200,000 u (PCN G Benzathine) 16:15:35 CDT CPT-69169 Immunization Single Admin 16:11:28 HYSTER MACHINE OPERATOR CPT-43326 Fluzone Quadrivalent Intramuscular Suspension 0.5 ML 16: 11:28 HYSTER MACHINE OPERATOR CPT-39321 Administration single or combination vaccine inc oral 13 :57:23 CDT CPT-16944 Menactra Intramuscular Injectable 13:57:23 CDT CPT-59052 First Vx Component - Ix admin via ID IM or jet inj without physician counseling 16:42:17 HYSTER MACHINE OPERATOR CPT-52504 Fluzone preservative free (>=3 yrs.) 16:42:17 HYSTER MACHINE OPERATOR 06/03 CPT-57489 Venipuncture Draw Fee 16:29:01 CDT CPT-51411 Chest 2V Frontal and Lat 16:23:56 CDT CPT-23422 Administration single or combination vaccine inc oral 13 :39:17 HYSTER MACHINE OPERATOR CPT-71645 Tdap 13:39:17 HYSTER MACHINE OPERATOR
--- NOTE | 2017-11-06 02:22 | ED Integumentary General ---
General Chief Complaint: Skin/Wound Problems Stated Complaint: RASH BOTH LEGS,PT STS IS LIVER TRANSPLANT PT 2002 Nursing Triage Note: c/o bilateral lower leg rash Source: patient, family (dad) Exam Limitations: no limitations History of Present Illness Date Seen by Provider: Nov 06, 2017 Time Seen by Provider: 02:10 Initial Comments The patient presents to the ER by private conveyance with his father and a chief complaint that today after work he felt drained like a zombie and noticed a rash on his legs red around the area of his socks. He says the same socks been wearing to work probably 20 times. He does have allergies to tape and allergies to most detergents except for the one that he's been using. He says he 's washed the socks before of his own detergent as well as more than before. He also was concerned because since Thursday, 3 days ago he woke up in middle the night around 2:00 with nausea and vomiting multiple times. There is no blood in the vomit. He says his roommate has been sick with similar nausea vomiting diarrhea. His bowels of been regular. He says he's felt like he is running a fever. He has not been worked up for this. 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 He is followed by a mercerizing range feeder in [facility]; Dr. Felix. He has not spoke to them about this. He says he missed work Thursday and yesterday he needed the money so he went anyways that he just felt terrible. He is not feeling pain anywhere necessarily just nausea, dizziness like he's going to pass out and weakness. He is not sure if his rash is related to his recent illness or not. His friend is still sick and never went to a doctor so has not been diagnosed. He's been taking all of his medications as prescribed. Allergies and Home Medications Allergies Coded Allergies: ceftriaxone (Verified Allergy, Unknown, 11/06/17) ibuprofen (Verified Allergy, Unknown, 11/06/17) promethazine (Verified Allergy, Unknown, 11/06/17) Uncoded Allergies: mycin (Allergy, Unknown, 11/06/17) tylenol and benadryl (Allergy, Unknown, 11/06/17) can take seperately but not together Home Medications Ondansetron 4 Mg Tab.rapdis, 4 MG PO Q6H PRN for NAUSEA/VOMITING Prescribed by: DEON CANTRELL on 11/06/17 0311 Patient Home Medication List Home Medication List Reviewed: Yes Constitutional: chills; No diaphoresis; dizziness, fever, malaise, weakness EENTM: No ear discharge, No hearing loss, No ear pain, No blurred vision Respiratory: No cough, No phlegm, No short of breath, No wheezing Cardiovascular: No chest pain, No palpitations Gastrointestinal: No abdominal pain, No constipation, No diarrhea; loss of appetite, nausea, vomiting Genitourinary: No discharge, No dysuria Musculoskeletal: No back pain, No joint pain Skin: No pruritus, No rash Psychiatric/Neurological: Denies Headache, Denies Numbness Past Femsuof-Lcygkv-Puufyv Hx Patient Social History Alcohol Use: Denies Use Recreational Drug Use: No Smoking Status: Never a Smoker Recent Foreign Travel: No Contact w/Someone Who Travel: No Recent Infectious Disease Expo: No Physical Abuse: No Sexual Abuse: No Past Medical History Surgeries: Yes (liver transplant, valve replacement) Respiratory: No Neurological: No Genitourinary: No Gastrointestinal: Yes (liver transplant) Endocrine: No HEENT: No Cancer: No Psychosocial: No Nursing Suicide Risk Score: 0 Blood Disorders: No Physical Exam Vital Signs Vital Signs - First Documented 11/06/17 01:02 Pulse 88 Resp 18 B/P (MAP) 127/89 (102) Pulse Ox 98 Capillary Refill : Less Than 3 Seconds General Appearance: WD/WN, no apparent distress HEENT: PERRL/EOMI, normal ENT inspection, TMs normal, pharynx normal Neck: non-tender, normal inspection Cardiovascular: normal peripheral pulses, regular rate, rhythm, no edema Respiratory: lungs clear, normal breath sounds, no respiratory distress, no accessory muscle use Gastrointestinal: normal bowel sounds, non tender, soft Extremities: normal range of motion, normal inspection, no pedal edema, no calf tenderness, normal capillary refill Neurologic/Psychiatric: maintainer operator II-XII nml as tested, no motor/sensory deficits, alert, normal mood/affect, oriented x 3 Skin: normal color, warm/dry Skin Problem Location: lower extremities (distribution of the socks) Skin Problem Character: blanching, patchy, rash Progress/Results/Core Measures Results/Orders Lab Results Laboratory Tests Test 11/06/17 02:25 11/06/17 02:30 11/06/17 03:08 Range/Units White Blood Count 11.7 H 4.3-11.0 10^3/uL Red Blood Count 4.74 4.35-5.85 10^6/uL Hemoglobin 14.5 13.3-17.7 G/DL Hematocrit 40 40-54 % Mean Corpuscular Volume 84 80-99 FL Mean Corpuscular Hemoglobin 31 25-34 PG Mean Corpuscular Hemoglobin Concent 36 32-36 G/DL Red Cell Distribution Width 13.0 10.0-14.5 % Platelet Count 227 130-400 10^3/uL Mean Platelet Volume 10.5 H 7.4-10.4 FL Neutrophils (%) (Auto) 55 42-75 % Lymphocytes (%) (Auto) 33 12-44 % Monocytes (%) (Auto) 11 0-12 % Eosinophils (%) (Auto) 2 0-10 % Basophils (%) (Auto) 0 0-10 % Neutrophils # (Auto) 6.4 1.8-7.8 X 10^3 Lymphocytes # (Auto) 3.8 1.0-4.0 X 10^3 Monocytes # (Auto) 1.3 H 0.0-1.0 X 10^3 Eosinophils # (Auto) 0.2 0.0-0.3 10^3/uL Basophils # (Auto) 0.0 0.0-0.1 10^3/uL Prothrombin Time 13.2 12.2-14.7 SEC INR Comment 1.0 0.8-1.4 Activated Partial Thromboplast Time 26 24-35 SEC Sodium Level 137 135-145 MMOL/L Potassium Level 4.1 3.6-5.0 MMOL/L Chloride Level 104 98-107 MMOL/L Carbon Dioxide Level 21 21-32 MMOL/L Anion Gap 12 5-14 MMOL/L Blood Urea Nitrogen 13 7-18 MG/DL Creatinine 0.78 0.60-1.30 MG/DL Estimat Glomerular Filtration Rate > 60 BUN/Creatinine Ratio 17 Glucose Level 117 H 70-105 MG/DL Calcium Level 9.5 8.5-10.1 MG/DL Magnesium Level 2.2 1.8-2.4 MG/DL Total Bilirubin 1.3 H 0.1-1.0 MG/DL Aspartate Amino Transf (AST/SGOT) 30 5-34 U/L Alanine Aminotransferase (ALT/SGPT) 54 0-55 U/L Alkaline Phosphatase 50 40-136 U/L Total Protein 7.4 6.4-8.2 GM/DL Albumin 4.4 3.2-4.5 GM/DL Lipase 22 8-78 U/L Group A Streptococcus Screen NEGATIVE NEGATIVE Urine Color YELLOW Urine Clarity CLEAR Urine pH 7 5-9 Urine Specific [place] 1.005 L 1.016-1.022 Urine Protein NEGATIVE NEGATIVE Urine Glucose (UA) NEGATIVE NEGATIVE Urine Ketones NEGATIVE NEGATIVE Urine Nitrite NEGATIVE NEGATIVE Urine Bilirubin NEGATIVE NEGATIVE Urine Urobilinogen NORMAL NORMAL MG/DL Urine Leukocyte Esterase NEGATIVE NEGATIVE Urine RBC (Auto) NEGATIVE NEGATIVE Urine RBC NONE /HPF Urine WBC NONE /HPF Urine Squamous Epithelial Cells RARE /HPF Urine Crystals PRESENT H /LPF Urine Amorphous Sediment FEW DAWIT PHOSPHATE H /LPF Urine Bacteria NEGATIVE /HPF Urine Casts NONE /LPF Urine Mucus NEGATIVE /LPF Urine Culture Indicated NO Urine Opiates Screen NEGATIVE NEGATIVE Urine Oxycodone Screen NEGATIVE NEGATIVE Urine Methadone Screen NEGATIVE NEGATIVE Urine Propoxyphene Screen NEGATIVE NEGATIVE Urine Barbiturates Screen NEGATIVE NEGATIVE Ur Tricyclic Antidepressants Screen NEGATIVE NEGATIVE Urine Phencyclidine Screen NEGATIVE NEGATIVE Urine Amphetamines Screen NEGATIVE NEGATIVE Urine Methamphetamines Screen NEGATIVE NEGATIVE Urine Benzodiazepines Screen NEGATIVE NEGATIVE Urine Cocaine Screen NEGATIVE NEGATIVE Urine Cannabinoids Screen NEGATIVE NEGATIVE My Orders Orders - DEON CANTRELL Cbc With Automated Diff (11/06/17 02:14) Comprehensive Metabolic Panel (11/06/17 02:14) Drug Screen Stat (Urine) (11/06/17 02:14) Lipase (11/06/17 02:14) Magnesium (11/06/17 02:14) Protime With Inr (11/06/17 02:14) Partial Thromboplastin Time (11/06/17 02:14) Ua Culture If Indicated (11/06/17 02:14) Chest Pa/Lat (2 View) (11/06/17 02:14) Iv Heplock-Insert (Order) (11/06/17 02:14) Loratadine Tablet (Claritin Tablet) (11/06/17 02:15) Diphenhydramine Tablet (Benadryl Tablet) (11/06/17 02:15) Famotidine Tablet (Pepcid Tablet) (11/06/17 02:15) Rapid Strep A Screen (11/06/17 02:23) Rx-Ondansetron Po (Rx-Zofran Po) (11/06/17 03:15) Medications Given in ED Current Medications Medications Dose Ordered Sig/Kami Route Start Time Stop Time Status Last Admin Dose Admin Diphenhydramine HCl 25 mg ONCE ONCE PO 11/06/17 02:15 11/06/17 02:19 DC 11/06/17 02:34 25 MG Famotidine 20 mg ONCE ONCE PO 11/06/17 02:15 11/06/17 02:19 DC 11/06/17 02:34 20 MG Loratadine 10 mg ONCE ONCE PO 11/06/17 02:15 11/06/17 02:19 DC 11/06/17 02:34 10 MG Vital Signs/I&O 11/06/17 01:02 Pulse 88 Resp 18 B/P (MAP) 127/89 (102) Pulse Ox 98 Blood Pressure Mean: 102 Progress Progress Note #1: Time: 02:27 Progress Note History nausea vomiting that he cut from his roommate is most likely viral but could also be strep swab the rapid strep basic labs. With his Prograf is can make it hard to interpret his labs however the patient is not septic on vital signs afebrile and looking otherwise well except for what looks to be a contact dermatitis on his bilateral lower extremities. 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 We are going to give him some anti-allergic medications to try and help with his discomfort while we get our labs. Progress Note #2: Time: 03:12 Progress Note Just waiting on a urine. Chest x-ray labs and rapid strep are all unremarkable this point. He's looking pretty well walking around the room smiling talking and not showing any evidence of being acutely ill. We'll give him a little Zofran to go home on and a note for work today. Diagnostic Imaging Diagonstic Imaging: Xray Plain Films/CT/US/NM/MRI: chest (2v) Comments No acute cardiopulmonary processes noted. Previous sternotomy wires noted Reviewed: Reviewed by Me Departure Impression Primary Impression: Allergic contact dermatitis Qualified Codes: L23.9 - Allergic contact dermatitis, unspecified cause Disposition: 01 HOME, SELF-CARE Condition: Improved Departure-Patient Inst. Decision time for Depature: 03:25 Referrals: TRINI FRAIRE MD (PCP/Family) Primary Care Physician Patient Instructions: LOCAL PHYSICIAN LIST, Viral Gastroenteritis, Adult (DC) Add. Discharge Instructions: Take tomorrow off and drink some Powerade/Gatorade as well as lots of water. For your itching you can use Claritin or Zyrtec 1 tablet daily in addition you can use Benadryl 25 mg every 6 hours as needed for itching. You can apply hydrocortisone cream over the rash. Give your mercerizing range feeder a call to set up an appointment if necessary. If you're having nausea or vomiting you can take one tablet of Zofran and place it on your tongue every 6 hours as needed. All discharge instructions reviewed with patient and/or family. Voiced understanding. Scripts Ondansetron (Ondansetron Odt) 4 Mg Tab.rapdis 4 MG PO Q6H PRN for NAUSEA/VOMITING, #8 TAB 0 Refills Prov: DEON CANTRELL 11/06/17 Work/School Note: Work Release Form Date Seen in the Emergency Department: Nov 06, 2017 Return to Work: Nov 07, 2017 Restrictions: No Restrictions DEON CANTRELL Nov 06, 2017 02:22
[2017-11-06 02:33] LABS: BASOPHILS % (AUTO) 0 % (0-10); EOSINOPHILS # (AUTO) 0.2 10^3/uL (0.0-0.3); EOSINOPHILS % (AUTO) 2 % (0-10); HEMATOCRIT 40 % (40-54); HEMOGLOBIN 14.5 G/DL (13.3-17.7); LYMPHOCYTES # (AUTO) 3.8 X 10^3 (1.0-4.0); LYMPHOCYTES % (AUTO) 33 % (12-44); MEAN CORPUSCULAR HEMOGLOBIN 31 PG (25-34); MEAN CORPUSCULAR HGB CONC 36 G/DL (32-36); MEAN CORPUSCULAR VOLUME 84 FL (80-99); MEAN PLATELET VOLUME 10.5 FL (7.4-10.4); MONOCYTES # (AUTO) 1.3 X 10^3 (0.0-1.0); MONOCYTES % (AUTO) 11 % (0-12); NEUTROPHILS # (AUTO) 6.4 X 10^3 (1.8-7.8); NEUTROPHILS % (AUTO) 55 % (42-75); PLATELET COUNT 227 10^3/uL (130-400); RED BLOOD COUNT 4.74 10^6/uL (4.35-5.85); WHITE BLOOD COUNT 11.7 10^3/uL (4.3-11.0)
[2017-11-06 02:43] LABS: PROTHROMBIN TIME PATIENT 13.2 SEC (12.2-14.7)
[2017-11-06 02:57] LABS: ALANINE AMINOTRANSFERASE 54 U/L (0-55); ALBUMIN 4.4 GM/DL (3.2-4.5); ALKALINE PHOSPHATASE 50 U/L (40-136); BILIRUBIN,TOTAL 1.3 MG/DL (0.1-1.0); BUN/CREATININE RATIO 17; CALCIUM 9.5 MG/DL (8.5-10.1); CARBON DIOXIDE 21 MMOL/L (21-32); CHLORIDE 104 MMOL/L (98-107); CREATININE SERUM 0.78 MG/DL (0.60-1.30); GFR ESTIMATED > 60; GLUCOSE 117 MG/DL (70-105); LIPASE 22 U/L (8-78); MAGNESIUM 2.2 MG/DL (1.8-2.4); POTASSIUM 4.1 MMOL/L (3.6-5.0); SODIUM 137 MMOL/L (135-145); TOTAL PROTEIN 7.4 GM/DL (6.4-8.2)
[2017-11-06] MEDS ORDERED: ONDA4TAB11 PO (03:11)
[2017-11-06 03:12] LABS: BILIRUBIN,URINE NEGATIVE (NEGATIVE); CLARITY,URINE CLEAR; COLOR,URINE YELLOW; GLUCOSE, URINE (UA) NEGATIVE (NEGATIVE); KETONES,URINE NEGATIVE (NEGATIVE); LEUKOCYTE ESTERASE ,URINE NEGATIVE (NEGATIVE); NITRITE,URINE NEGATIVE (NEGATIVE); PH,URINE 7 (5-9); PROTEIN,URINE NEGATIVE (NEGATIVE); UROBILINOGEN,URINE NORMAL (NORMAL)
[2017-11-06] MEDS ORDERED: RX-ONDANSETRON 4 MG ODT (ZOFRAN) PPK #4 PO STA (03:15)
[2017-11-06 03:22] LABS: BACTERIA,URINE NEGATIVE /HPF; SQUAMOUS EPITHELIAL CELL,UR RARE /HPF
[2017-11-06 03:23] LABS: AMORPHOUS SEDIMENT,UR FEW AMOR PHOSPHATE /LPF
[2017-11-06 03:24] LABS: AMPHETAMINE SCREEN, URINE NEGATIVE (NEGATIVE); BARBITURATE SCREEN URINE NEGATIVE (NEGATIVE); BENZODIAZEPINES SCREEN URINE NEGATIVE (NEGATIVE); CANNABINOID SCREEN, URINE NEGATIVE (NEGATIVE); COCAINE SCREEN URINE NEGATIVE (NEGATIVE); METHADONE STAT NEGATIVE (NEGATIVE); METHAMPHETAMINE SCREEN URINE S NEGATIVE (NEGATIVE); OPIATE SCREEN URINE NEGATIVE (NEGATIVE); OXYCODONE STAT NEGATIVE (NEGATIVE); PROPOXYPHENE STAT NEGATIVE (NEGATIVE); TRICYCLIC ANTIDEPRESSANTS SCRE NEGATIVE (NEGATIVE)
[2017-11-06 03:28] VITALS: BP 127/89
--- NOTE | 2017-11-06 07:26 | Diagnostic Imaging Report ---
INDICATION: Feeling sick with leg rash, previous surgical history of heart and liver transplant. PA and lateral views were obtained. FINDINGS: The heart size, mediastinal configuration, and pulmonary vascularity are within normal limits. There is no pleural effusion, pneumothorax, or pneumonia. The osseous structures are unremarkable. IMPRESSION: No acute cardiopulmonary abnormality. Dictated by: Dictated on workstation # [id number]
== END 2017-11-06 03:27 | disposition home or self-care (01) ==
LOC: ER 00:54
DX: L23.9 Allergic contact dermatitis, unspecified cause (principal); Z88.0 Allergy status to penicillin; Z88.6 Allergy status to analgesic agent; Z88.8 Allergy status to other drugs, medicaments and biological substances; Z95.2 Presence of prosthetic heart valve; Z94.4 Liver transplant status
CPT/HCPCS: 36415; 71046; 80053; 80306; 81000; 83690; 83735; 85025; 85610; 85730; 87430; 99283

== ENCOUNTER 2017-12-24 17:11 | Emergency (ER) | payer MEDICAID ==
[~2017-12-24] VITALS: Ht 180.3 cm; Wt 113.4 kg
[~2017-12-24 17:11] MED LIST: CETI10TA17; CHOL100045 PO; FLUT16SP22; LISI-556; ONDA4TAB11 PO; TACR1CAP8
[2017-12-24] MEDS ORDERED: TACROLIMUS (17:53)
--- OUTSIDE RECORDS SUMMARY | 2017-12-24 18:27 | XMS REPORT | Clinical Summary ---
[...] MD Memory loss Sinusitis, frontal, acute 461.1 Active Jen Crystal MD PhD Acute frontal sinusitis FH DIABETES ICD-V18.0 Inactive Hector Love MD [...] MD Fever ICD-780.60 Inactive Hector Love MD Medication List Medication Instructions Start Date Stop Date Generic Name NDC Status Provider Patient Instruction LEVAQUIN 500 MG TABS 1 pill by mouth daily LEVOFLOXACIN [id number] Active Jen Crystal MD PhD Active LISINOPRIL 5 MG TABS 1.5 tab qd LISINOPRIL 96961793990 Active Jen Crystal MD PhD Active KETOCONAZOLE 2 % CREA apply twice a day to rash KETOCONAZOLE 07826761268 No Longer Active Hector Love MD Active AUGMENTIN 875-125 MG TAB 1 tab by mouth twice daily with food AMOXICILLIN-POT CLAVULANATE 52964920391 No Longer Active Иван Mooney MD Active LOTRISONE 0.05-1 % CREAM Apply twice a day to affected area 07/19 CLOTRIMAZOLE-BETAMETHASONE 16439948828 No Longer Active Иван Mooney MD Active PROGRAF 1 MG CAPS 4 tabs po bid TACROLIMUS 80553494951 Active Hector Love MD Active FEXOFENADINE HCL 180 MG TABS 1 Daily FEXOFENADINE HCL 23276935414 No Longer Active Hector Love MD Active PROGRAF 0.5 MG CAPS Take one by mouth daily with 1 mg TACROLIMUS 47785665570 No Longer Active Hector Love MD Active AMOXICILLIN 500 MG CAPS 2 po BID x 10 days AMOXICILLIN 01096227442 No Longer Active Hector Love MD Active RAPAMUNE 1 MG TABS 3 tabs in the am SIROLIMUS 88204648527 No Longer Active Hector Love MD Active AMOXICILLIN 500 MG CAPS 2 po BID x 10 days AMOXICILLIN 91439124028 No Longer Active Hector Love MD Active LORTAB 5 5-500 MG TABS 1/2 to 1 tablet by mouth every 4 hours as needed for pain HYDROCODONE-ACETAMINOPHEN 96242525058 No Longer Active Hector Love MD Active FLUTICASONE PROPIONATE 50 MCG/ACT SUSP INSTILL 2 SPRAYS IN EACH NOSTRIL Q D FLUTICASONE PROPIONATE 69369608612 No Longer Active Hector Love MD Active PROGRAF 1 MG CAPS 1 po bid TACROLIMUS 48919119781 No Longer Active Hector Love MD Active AMOXICILLIN 875 MG TABS 1 tab by mouth twice daily AMOXICILLIN 00821387612 No Longer Active Hector Love MD Active AMOXICILLIN 500 MG CAPS 2 po BID x 10 days AMOXICILLIN 36927672525 No Longer Active Hector Love MD Active AUGMENTIN 875-125 MG TAB 1 tab by mouth twice daily with food AMOXICILLIN-POT CLAVULANATE 92837512065 No Longer Active Hector Love MD Active AZITHROMYCIN 250 MG TABS 2 po qd x 1 day, then 1 po qd x 4 days AZITHROMYCIN 01477756383 No Longer Active Hector Love MD Active CETIRIZINE HCL 10 MG TABS 1 PO Q D CETIRIZINE HCL 69066486481 No Longer Active Waleska Chongarger Active PROGRAF 1 MG CAPS 1 po bid PROGRAF 1 MG CAPS 091217 TACROLIMUS Inactive FLUTICASONE PROPIONATE 50 MCG/ACT SUSP INSTILL 2 SPRAYS IN EACH NOSTRIL Q D FLUTICASONE PROPIONATE 50 MCG/ACT SUSP 295610 FLUTICASONE PROPIONATE Inactive LORTAB 5 5-500 MG TABS 1/2 to 1 tablet by mouth every 4 hours as needed for pain LORTAB 5 5-500 MG TABS HYDROCODONE- ACETAMINOPHEN Inactive RAPAMUNE 1 MG TABS 3 tabs in the am RAPAMUNE 1 MG TABS SIROLIMUS Inactive PROGRAF 0.5 MG CAPS Take one by mouth daily with 1 mg PROGRAF 0.5 MG CAPS 102920 TACROLIMUS Inactive FEXOFENADINE HCL 180 MG TABS 1 Daily FEXOFENADINE HCL 180 MG TABS 762555 FEXOFENADINE HCL Inactive LOTRISONE 0.05-1 % CREAM Apply twice a day to affected area 07/19 LOTRISONE 0.05-1 % CREAM 422911 CLOTRIMAZOLE-BETAMETHASONE Inactive KETOCONAZOLE 2 % CREA apply twice a day to rash KETOCONAZOLE 2 % CREA 963262 KETOCONAZOLE Inactive AMOXICILLIN 500 MG CAPS 2 po BID x 10 days AMOXICILLIN 500 MG CAPS 987055 AMOXICILLIN Inactive AMOXICILLIN 875 MG TABS 1 tab by mouth twice daily AMOXICILLIN 875 MG TABS 247174 AMOXICILLIN Inactive AMOXICILLIN 500 MG CAPS 2 po BID x 10 days AMOXICILLIN 500 MG CAPS 724145 AMOXICILLIN Inactive AMOXICILLIN 500 MG CAPS 2 po BID x 10 days AMOXICILLIN 500 MG CAPS 638754 AMOXICILLIN Inactive AUGMENTIN 875-125 MG TAB 1 tab by mouth twice daily with food AUGMENTIN 875-125 MG TAB 428261 AMOXICILLIN-POT CLAVULANATE Inactive Advance Directives Directive Description Start Date PERMISSION TO SHARE Immunizations Vaccine Administration Date Value Standard Description Seasonal influenza vaccine, injectable, preservative free, for > 3 years old ( Afluria, FluLaval, Fluzone, Fluvirin, Fluarix, Agriflu(>=18 yo)) Fluzone preservative free (>=3 yrs.) [UMC270] Influenza, seasonal, injectable, preservative free Adacel (Tetanus, reduced Diphtheria, and acellular Pertussis Immunization) Adacel [MCM552] tetanus toxoid, reduced diphtheria toxoid, and acellular [...] Range Description blood pressure, diastolic - 8462-4 35 mm[Hg] BP [place] blood pressure, systolic - 8480-6 68 mm[Hg] BP sys height E&M - 8302-2 70.25 [in_us] Bdy height temperature E&M 97.8 [degF] Body temperature weight E&M - 3141-9 232.50 [lb_av] Weight Measured blood pressure, diastolic - 8462-4 77 mm[Hg] BP [place] blood pressure, systolic - 8480-6 132 mm[Hg] BP sys height E&M - 8302-2 70.25 [in_us] Bdy height pulse rate E&M - 8867-4 81 /min Heart rate temperature E&M 98.6 [degF] Body temperature weight E&M - 3141-9 222 [lb_av] Weight Measured blood pressure, diastolic - 8462-4 77 mm[Hg] BP [place] blood pressure, systolic - 8480-6 132 mm[Hg] BP sys height E&M - 8302-2 70.25 [in_us] Bdy height pulse rate E&M - 8867-4 69 /min Heart rate temperature E&M 97.6 [degF] Body temperature weight E&M - 3141-9 212 [lb_av] Weight Measured Diagnostic Results Date Name Value Unit Range Description Chart Maintenance: Outside labs entered on flowsheet - Chemistry sodium, serum 143 mmol/L potassium, serum 3.5 mmol/L chloride, serum 100 mmol/L carbon dioxide, venous blood 35 mmol/L urea nitrogen, blood 14 mg/dL blood glucose 105 mg/dL creatinine, serum 0.80 mg/dL aspartate aminotransferase (SGOT), serum 27 U/L alanine aminotransferase (SGPT), serum 30 U/L bilirubin, serum, total 2.0 mg/dL alkaline phosphatase, serum 62 U/L calcium, serum 9.2 mg/dL Chart Maintenance: Outside labs entered on flowsheet - Hematology mean corpuscular volume, RBC 90.52 fL hematocrit, blood 45.2 % hemoglobin, blood 15.0 g/dL erythrocyte (RBC) count 4.99 10*6/mm3 leukocyte count, blood 13.05 10*3/mm3 mean corpuscular hemoglobin, RBC 30.1 pg red blood cell distribution width 12.7 % platelet count 263 10*3/mm3 Lab Report: CBC W/ DIFF - Hematology leukocyte count, blood 8.5 10*3/mm3 hemoglobin, blood 15.9 g/dL platelet count 12.1 10*3/mm3 Lab Report: CBC W/DIFF, Comp. Metabolic Panel, Thyroid Stimulating Hormo ... - Chemistry sodium, serum 139 mmol/L 469-112 5528/07/18 potassium, serum 4.5 mmol/L 3.5-5.2 chloride, serum [...] Panel, Thyroid Stimulating Hormo ... - Hematology neutrophils as percent of blood leukocytes 46.5 % 42.2-75.2 monocytes as percent of blood leukocytes 9.6 % 1.7-9.3 lymphocytes as percent of blood leukocytes 40.5 % 20.5-51.1 erythrocyte (RBC) count 4.95 10^6/MM^3 10*6/mm3 4.69-6.13 hemoglobin, blood 14.9 g/dL 13.5-17.5 leukocyte count, blood 7.6 10^3/MM^3 10*3/mm3 4.6-10.2 hematocrit, blood 44.1 % 41.0-53.0 mean corpuscular volume, RBC 89 fL 80-97 mean corpuscular hemoglobin, RBC 30.1 pg 27.0-31.2 mean corpuscular hemoglobin concentration, RBC 33.8 G/DL % 31.8- 35.4 red blood cell distribution width 15.0 % 11.6-14.8 platelet count 210 10^3/MM^3 10*3/mm3 142-424 Lab Report: CBC W/DIFF, Comp. Metabolic Panel, Thyroid Stimulating Hormo ... - Urinalysis urine color Yellow Colorless;Lightyellow;Straw;Yellow appearance, urine Clear Clear specific gravity, urine >=1.030 1.000-1.030 pH, urine, semiquantitative 6.0 5.0-8.5 urobilinogen, urine, semiquantitative (dipstick) 0.2 Normal leukocyte esterase, urine, by dipstick Negative Negative nitrite, urine, semiquantitative Negative Negative glucose, urine, semiquantitative Negative Negative ketones, urine, by test strip Negative Negative bilirubin, urine Negative Negative Lab Report: CBC W/DIFF, MONO w/Rflx EBV, [...] Negative Encounters Code Encounter Date Provider Facility CPT-07064 Level 3 Est. Patient 09:32:55 CDT Hector Love MD [facility] CPT-62536 Level 3 Est. Patient 15:11:08 GAME FARM SUPERVISOR Иван Mooney MD [facility] CPT-36242 Level 3 Est. Patient 16:38:53 GAME FARM SUPERVISOR Hector Love MD [facility] CPT-95607 Level 3 Est. Patient 15:46:05 CDT Hector Love MD [facility] CPT-32226 Level 3 Est. Patient 13:59:39 CDT Hector Love MD [facility] CPT-96772 Level 3 Est. Patient 14:44:46 GAME FARM SUPERVISOR Hector Love MD [facility] CPT-42278 Level 3 Est. Patient 17:12:27 CDT Hector Love MD [facility] CPT-98424 Level 3 Est. Patient 15:30:32 CDT Hector Love MD [facility] CPT-87112 Level 3 Est. Patient 14:24:52 CDT Иван Mooney MD [facility] CPT-81049 Level 3 Est. Patient 14:08:38 GAME FARM SUPERVISOR Hector Love MD [facility] Procedures Code Procedure Name Date Entry Date Standard Description CPT-89744 Administration single or combination vaccine inc oral 13 :57:23 CDT CPT-38584 Menactra Intramuscular Injectable 13:57:23 CDT CPT-33014 First Vx Component - Ix admin via ID IM or jet inj without physician counseling 16:42:17 GAME [employer]ARM SUPERVISOR CPT-65686 Fluzone preservative free (>=3 yrs.) 16:42:17 GAME FARM SUPERVISOR 06/03 CPT-93593 Venipuncture Draw Fee 16:29:01 CDT CPT-39122 Chest 2V Frontal and Lat 16:23:56 CDT CPT-97762 Administration single or combination vaccine inc oral 13 :39:17 GAME FARM SUPER[employer]OR CPT-95437 Tdap 13:39:17 GAME [employer]ARM SUPER[employer]OR
--- OUTSIDE RECORDS SUMMARY | 2017-12-24 18:27 | XMS REPORT | Clinical Summary ---
Author Author Admin, LAMBERT Organization [facility] Address Unknown Phone Unavailable Allergies, Adverse [...] 780.93 Active Hector Love MD Memory loss FH DIABETES ICD-V18.0 Inactive Hector Love MD BRONCHITIS, ACUTE ICD-466.0 Inactive Hector Love MD KNEE SPRAIN, LEFT ICD-844.9 Inactive Hector Love MD U R I ICD-465.9 Inactive Hector Love MD COUGH ICD-786.2 Inactive Hector Love MD COSTOCHRONDRITIS ICD-733.6 Inactive Hector Love MD SINUSITIS, ACUTE ICD-461.9 Inactive Hector Love MD FEVER UNSPECIFIED ICD-780.60 Inactive Hector Love MD Tinea corporis ICD-110.5 Inactive eHctor Love MD Sinusitis ICD-461.9 Inactive Hector Love MD Fever ICD-780.60 Inactive Hector Love MD Medication List Medication Instructions Start Date Stop Date Generic Name NDC Status Provider Patient Instruction LISINOPRIL 5 MG TABS 1 tab qd LISINOPRIL 80734741565 Active Hector Love MD Active KETOCONAZOLE 2 % CREA apply twice a day to rash KETOCONAZOLE 90559427201 No Longer Active Hector Love MD Active AUGMENTIN 875-125 MG TAB 1 tab by mouth twice daily with food AMOXICILLIN-POT CLAVULANATE 04443359224 No Longer Active Иван Mooney MD Active LOTRISONE 0.05-1 % CREAM Apply twice a day to affected area 07/19 CLOTRIMAZOLE-BETAMETHASONE 32054928800 No Longer Active Иван Mooney MD Active PROGRAF 1 MG CAPS 4 tabs po bid TACROLIMUS 37271908936 Active Hector Love MD Active FEXOFENADINE HCL 180 MG TABS 1 Daily FEXOFENADINE HCL 52128741438 No Longer Active Hector Love MD Active PROGRAF 0.5 MG CAPS Take one by mouth daily with 1 mg TACROLIMUS 93309252857 No Longer Active Hector Love MD Active AMOXICILLIN 500 MG CAPS 2 po BID x 10 days AMOXICILLIN 90833400646 No Longer Active Hector Love MD Active RAPAMUNE 1 MG TABS 3 tabs in the am SIROLIMUS 52238220334 No Longer Active Hector Love MD Active AMOXICILLIN 500 MG CAPS 2 po BID x 10 days AMOXICILLIN 31225580336 No Longer Active Hector Love MD Active LORTAB 5 5-500 MG TABS 1/2 to 1 tablet by mouth every 4 hours as needed for pain HYDROCODONE-ACETAMINOPHEN 93857782046 No Longer Active Hector Love MD Active FLUTICASONE PROPIONATE 50 MCG/ACT SUSP INSTILL 2 SPRAYS IN EACH NOSTRIL Q D FLUTICASONE PROPIONATE 12026134470 No Longer Active Hector Love MD Active PROGRAF 1 MG CAPS 1 po bid TACROLIMUS 61787937621 No Longer Active Hector Love MD Active AMOXICILLIN 875 MG TABS 1 tab by mouth twice daily AMOXICILLIN 86346181624 No Longer Active Hector Love MD Active AMOXICILLIN 500 MG CAPS 2 po BID x 10 days AMOXICILLIN 31807095246 No Longer Active Hector Love MD Active AUGMENTIN 875-125 MG TAB 1 tab by mouth twice daily with food AMOXICILLIN-POT CLAVULANATE 70433219571 No Longer Active Hector Love MD Active AZITHROMYCIN 250 MG TABS 2 po qd x 1 day, then 1 po qd x 4 days AZITHROMYCIN 76392353000 No Longer Active Hector Love MD Active CETIRIZINE HCL 10 MG TABS 1 PO Q D CETIRIZINE HCL 82660394190 No Longer Active Awleska Mullan Active PROGRAF 1 MG CAPS 1 po bid PROGRAF 1 MG CAPS 467955 TACROLIMUS Inactive FLUTICASONE PROPIONATE 50 MCG/ACT SUSP INSTILL 2 SPRAYS IN EACH NOSTRIL Q D FLUTICASONE PROPIONATE 50 MCG/ACT SUSP 470087 FLUTICASONE PROPIONATE Inactive LORTAB 5 5-500 MG TABS 1/2 to 1 tablet by mouth every 4 hours as needed for pain LORTAB 5 5-500 MG TABS HYDROCODONE- ACETAMINOPHEN Inactive RAPAMUNE 1 MG TABS 3 tabs in the am RAPAMUNE 1 MG TABS SIROLIMUS Inactive PROGRAF 0.5 MG CAPS Take one by mouth daily with 1 mg PROGRAF 0.5 MG CAPS 548531 TACROLIMUS Inactive FEXOFENADINE HCL 180 MG TABS 1 Daily FEXOFENADINE HCL 180 MG TABS 640874 FEXOFENADINE HCL Inactive LOTRISONE 0.05-1 % CREAM Apply twice a day to affected area 07/19 LOTRISONE 0.05-1 % CREAM 171896 CLOTRIMAZOLE-BETAMETHASONE Inactive KETOCONAZOLE 2 % CREA apply twice a day to rash KETOCONAZOLE 2 % CREA 746605 KETOCONAZOLE Inactive AMOXICILLIN 500 MG CAPS 2 po BID x 10 days AMOXICILLIN 500 MG CAPS 889249 AMOXICILLIN Inactive AMOXICILLIN 875 MG TABS 1 tab by mouth twice daily AMOXICILLIN 875 MG TABS 461134 AMOXICILLIN Inactive AMOXICILLIN 500 MG CAPS 2 po BID x 10 days AMOXICILLIN 500 MG CAPS 471416 AMOXICILLIN Inactive AMOXICILLIN 500 MG CAPS 2 po BID x 10 days AMOXICILLIN 500 MG CAPS 549225 AMOXICILLIN Inactive AUGMENTIN 875-125 MG TAB 1 tab by mouth twice daily with food AUGMENTIN 875-125 MG TAB 574233 AMOXICILLIN-POT CLAVULANATE Inactive Advance Directives Directive Description Start Date PERMISSION TO SHARE Immunizations Vaccine Administration Date Value Standard Description Seasonal influenza vaccine, injectable, preservative free, for > 3 years old ( Afluria, FluLaval, Fluzone, Fluvirin, Fluarix, Agriflu(>=18 yo)) Fluzone preservative free (>=3 yrs.) [NDH015] Influenza, seasonal, injectable, preservative free Adacel (Tetanus, reduced Diphtheria, and acellular Pertussis Immunization) Adacel [GUI683] tetanus toxoid, reduced diphtheria toxoid, and acellular [...] E&M - 3141-9 212 [lb_av] Weight Measured blood pressure, diastolic - 8462-4 85 mm[Hg] BP [place] blood pressure, systolic - 8480-6 126 mm[Hg] BP sys height E&M - 8302-2 69.25 [in_us] Bdy height pulse rate E&M - 8867-4 79 /min Heart rate temperature E&M 98.5 [degF] Body temperature weight E&M - 3141-9 216.19 [lb_av] Weight Measured Diagnostic Results Date Name Value Unit Range Description Chart Maintenance: Outside labs entered on flowsheet - Chemistry sodium, serum 142 mmol/L potassium, serum 3.8 mmol/L chloride, serum 99 mmol/L carbon dioxide, venous blood 33 mmol/L urea nitrogen, blood 12 mg/dL blood glucose 112 mg/dL creatinine, serum 0.70 mg/dL aspartate aminotransferase (SGOT), serum 25 U/L alanine aminotransferase (SGPT), serum 31 U/L bilirubin, serum, total 1.6 mg/dL alkaline phosphatase, serum 69 U/L calcium, serum 9.5 mg/dL sodium, serum 143 mmol/L potassium, serum 3.5 [...] on flowsheet - Hematology leukocyte count, blood 13.05 10*3/mm3 erythrocyte (RBC) count 4.99 10*6/mm3 hemoglobin, blood 15.0 g/dL hematocrit, blood 45.2 % mean corpuscular volume, RBC 90.52 fL mean corpuscular hemoglobin, RBC 30.1 pg red blood cell distribution width 12.7 % platelet count 263 10*3/mm3 hemoglobin, blood 15.6 g/dL hematocrit, blood 46.7 % mean corpuscular volume, RBC 90.28 fL mean corpuscular hemoglobin, RBC 30.1 pg red blood cell distribution width 12.2 % Lab Report: CBC W/ DIFF - Hematology leukocyte count, blood 8.5 10*3/mm3 hemoglobin, blood 15.9 g/dL platelet count 12.1 10*3/mm3 Lab Report: CBC W/DIFF, Comp. Metabolic Panel, RapidStrep Rflx/Cx, UADIP ... - Chemistry sodium, serum 137 mmol/L 922-987 6631/08/22 potassium, serum 4.5 mmol/L 3.5-5.2 chloride, serum 103 mmol/L 98-107 carbon dioxide, venous blood 30.6 mmol/L 21.0-32.0 blood glucose 113 mg/dL 65-110 urea nitrogen, blood 14 mg/dL 7-18 creatinine, serum 0.70 mg/dL 0.60-1.30 alanine aminotransferase (SGPT), serum 41 U/L 12-78 aspartate aminotransferase (SGOT), serum 20 U/L 15-37 alkaline phosphatase, serum 108 U/L 65-260 calcium, serum 8.9 mg/dL 8.5-10.1 bilirubin, serum, total 2.04 mg/dL 0.00-1.00 protein, total urine random Negative mg/dL Negative RBC, urine, dipstick Negative Negative Lab Report: CBC W/DIFF, Comp. Metabolic Panel, RapidStrep Rflx/Cx, UADIP ... - Hematology leukocyte count, blood 6.9 10^3/MM^3 10*3/mm3 4.6-10.2 neutrophils as percent of blood leukocytes 80.7 % 42.2-75.2 monocytes as percent of blood leukocytes 2.0 % 1.7-9.3 lymphocytes as percent of blood leukocytes 15.7 % 20.5-51.1 erythrocyte (RBC) count 5.13 10^6/MM^3 10*6/mm3 4.69-6.13 hemoglobin, blood 15.6 g/dL 13.5-17.5 hematocrit, blood 46.4 % 41.0-53.0 mean corpuscular volume, RBC 90 fL 80-97 mean corpuscular hemoglobin, RBC 30.3 pg 27.0-31.2 mean corpuscular hemoglobin concentration, RBC 33.5 G/DL % 31.8- 35.4 red blood cell distribution width 13.5 % 11.6-14.8 platelet count 226 10^3/MM^3 10*3/mm3 142-424 Lab Report: CBC W/DIFF, Comp. Metabolic Panel, RapidStrep Rflx/Cx, UADIP ... - Lab Microbial identification kit, rapid strep method Negative-Throat Culture to Follow Negative Lab Report: CBC W/DIFF, Comp. Metabolic Panel, RapidStrep Rflx/Cx, UADIP ... - Urinalysis urine color Yellow Colorless;Lightyellow;Straw;Yellow appearance, urine Clear Clear specific gravity, urine 1.025 1.000-1.030 pH, urine, semiquantitative 6.0 5.0-8.5 urobilinogen, urine, semiquantitative (dipstick) 0.2 Normal leukocyte esterase, urine, by dipstick Negative Negative nitrite, urine, semiquantitative Negative Negative glucose, urine, semiquantitative Negative Negative ketones, urine, by test strip Negative Negative bilirubin, urine Negative Negative Lab Report: CBC W/DIFF, Comp. Metabolic Panel, Thyroid Stimulating Hormo ... - Chemistry protein, total urine random Negative mg/dL Negative RBC, urine, dipstick Negative Negative sodium, serum 139 mmol/L 016-004 0019/07/18 potassium, serum 4.5 mmol/L 3.5-5.2 chloride, serum [...] 1.30 mg/dL 0.00-1.00 TSH 3.10 m[iU]/mL 0.36-3.74 Lab Report: CBC W/DIFF, Comp. Metabolic Panel, [...] strip Negative Negative bilirubin, urine Negative Negative Encounters Code Encounter Date Provider Facility CPT-58977 Level 3 Est. Patient 09:32:55 CDT Hector Love MD [facility] CPT-45473 Level 3 Est. Patient 15:11:08 HEMOTHERAPIST Иван Mooney MD [facility] CPT-52083 Level 3 Est. Patient 16:38:53 HEMOTHERAPIST Hector Love MD [facility] CPT-83219 Level 3 Est. Patient 15:46:05 CDT Hector Love MD [facility] CPT-92769 Level 3 Est. Patient 13:59:39 CDT Hector Love MD [facility] CPT-80864 Level 3 Est. Patient 14:44:46 HEMOTHERAPIST Hector Love MD [facility] CPT-59015 Level 3 Est. Patient 17:12:27 CDT Hector Love MD [facility] CPT-12533 Level 3 Est. Patient 15:30:32 CDT Hector Love MD [facility] CPT-10149 Level 3 Est. Patient 14:24:52 CDT Иван Mooney MD [facility] CPT-24209 Level 3 Est. Patient 14:08:38 HEMOTHERAPIST Hector Love MD [facility] Procedures Code Procedure Name Date Entry Date Standard Description CPT-31935 Administration single or combination vaccine inc oral 13 :57:23 CDT CPT-47028 Menactra Intramuscular Injectable 13:57:23 CDT CPT-23015 First Vx Component - Ix admin via ID IM or jet inj without physician counseling 16:42:17 HEMOTHERAPIST CPT-55834 Fluzone preservative free (>=3 yrs.) 16:42:17 HEMOTHERAPIST 06/03 CPT-14852 Venipuncture Draw Fee 16:29:01 CDT CPT-23509 Chest 2V Frontal and Lat 16:23:56 CDT CPT-73163 Administration single or combination vaccine inc oral 13 :39:17 HEMOTHERAPIST CPT-21799 Tdap 13:39:17 HEMOTHERAPIST
--- OUTSIDE RECORDS SUMMARY | 2017-12-24 18:28 | XMS REPORT | Clinical Summary ---
Author Author Admin, LAMBERT Organization [facility] Address Unknown Phone Unavailable Allergies, [...] 5 MG TABS 1 tab qd LISINOPRIL 92320995455 Active Hector Loev MD Active KETOCONAZOLE 2 % CREA apply twice a day to rash KETOCONAZOLE 37747114015 No Longer Active Hector Love MD Active AUGMENTIN 875-125 MG TAB 1 tab by mouth twice daily with food AMOXICILLIN-POT CLAVULANATE 98086467381 No Longer Active Иван Mooney MD Active LOTRISONE 0.05-1 % CREAM Apply twice a day to affected area 07/19 CLOTRIMAZOLE-BETAMETHASONE 00570163288 No Longer Active Иван Mooney MD Active PROGRAF 1 MG CAPS 4 tabs po bid TACROLIMUS 27060836191 Active Hector Love MD Active FEXOFENADINE HCL 180 MG TABS 1 Daily FEXOFENADINE HCL 01125494791 No Longer Active Hector Love MD Active PROGRAF 0.5 MG CAPS Take one by mouth daily with 1 mg TACROLIMUS 55901725496 No Longer Active Hector Love MD Active AMOXICILLIN 500 MG CAPS 2 po BID x 10 days AMOXICILLIN 09520413711 No Longer Active Hector Love MD Active RAPAMUNE 1 MG TABS 3 tabs in the am SIROLIMUS 45327358423 No Longer Active Hector Love MD Active AMOXICILLIN 500 MG CAPS 2 po BID x 10 days AMOXICILLIN 46433480032 No Longer Active Hector Love MD Active LORTAB 5 5-500 MG TABS 1/2 to 1 tablet by mouth every 4 hours as needed for pain HYDROCODONE-ACETAMINOPHEN 61521336629 No Longer Active Hector Love MD Active FLUTICASONE PROPIONATE 50 MCG/ACT SUSP INSTILL 2 SPRAYS IN EACH NOSTRIL Q D FLUTICASONE PROPIONATE 28579304625 No Longer Active Hector Love MD Active PROGRAF 1 MG CAPS 1 po bid TACROLIMUS 26625778759 No Longer Active Hector Love MD Active AMOXICILLIN 875 MG TABS 1 tab by mouth twice daily AMOXICILLIN 53633634750 No Longer Active Hector Love MD Active AMOXICILLIN 500 MG CAPS 2 po BID x 10 days AMOXICILLIN 57443788105 No Longer Active Hector Love MD Active AUGMENTIN 875-125 MG TAB 1 tab by mouth twice daily with food AMOXICILLIN-POT CLAVULANATE 98897921104 No Longer Active Hector Love MD Active AZITHROMYCIN 250 MG TABS 2 po qd x 1 day, then 1 po qd x 4 days AZITHROMYCIN 03078485895 No Longer Active Hector Love MD Active CETIRIZINE HCL 10 MG TABS 1 PO Q D CETIRIZINE HCL 99734666510 No Longer Active [place] Active PROGRAF 1 MG CAPS 1 po bid PROGRAF 1 MG CAPS 411214 TACROLIMUS Inactive FLUTICASONE PROPIONATE 50 MCG/ACT SUSP INSTILL 2 SPRAYS IN EACH NOSTRIL Q D FLUTICASONE PROPIONATE 50 MCG/ACT SUSP 001692 FLUTICASONE PROPIONATE Inactive LORTAB 5 5-500 MG TABS 1/2 to 1 tablet by mouth every 4 hours as needed for pain LORTAB 5 5-500 MG TABS HYDROCODONE- ACETAMINOPHEN Inactive RAPAMUNE 1 MG TABS 3 tabs in the am RAPAMUNE 1 MG TABS SIROLIMUS Inactive PROGRAF 0.5 MG CAPS Take one by mouth daily with 1 mg PROGRAF 0.5 MG CAPS 080764 TACROLIMUS Inactive FEXOFENADINE HCL 180 MG TABS 1 Daily FEXOFENADINE HCL 180 MG TABS 781227 FEXOFENADINE HCL Inactive LOTRISONE 0.05-1 % CREAM Apply twice a day to affected area 07/19 LOTRISONE 0.05-1 % CREAM 174830 CLOTRIMAZOLE-BETAMETHASONE Inactive KETOCONAZOLE 2 % CREA apply twice a day to rash KETOCONAZOLE 2 % CREA 206989 KETOCONAZOLE Inactive AMOXICILLIN 500 MG CAPS 2 po BID x 10 days AMOXICILLIN 500 MG CAPS 741593 AMOXICILLIN Inactive AMOXICILLIN 875 MG TABS 1 tab by mouth twice daily AMOXICILLIN 875 MG TABS 604200 AMOXICILLIN Inactive AMOXICILLIN 500 MG CAPS 2 po BID x 10 days AMOXICILLIN 500 MG CAPS 818955 AMOXICILLIN Inactive AMOXICILLIN 500 MG CAPS 2 po BID x 10 days AMOXICILLIN 500 MG CAPS 555378 AMOXICILLIN Inactive AUGMENTIN 875-125 MG TAB 1 tab by mouth twice daily with food AUGMENTIN 875-125 MG TAB 072362 AMOXICILLIN-POT CLAVULANATE Inactive Advance Directives Directive Description Start Date PERMISSION TO SHARE Immunizations Vaccine Administration Date Value Standard Description Seasonal influenza vaccine, injectable, preservative free, for > 3 years old ( Afluria, FluLaval, Fluzone, Fluvirin, Fluarix, Agriflu(>=18 yo)) Fluzone preservative free (>=3 yrs.) [[id number]] Influenza, seasonal, injectable, preservative free Adacel (Tetanus, reduced Diphtheria, and acellular Pertussis Immunization) Adacel [[id number]] tetanus toxoid, reduced diphtheria toxoid, and acellular [...] ... - Chemistry sodium, serum 137 mmol/L 392-678 6075/08/22 potassium, serum 4.5 mmol/L 3.5-5.2 chloride, serum [...] dipstick Negative Negative sodium, serum 139 mmol/L 747-064 3921/07/18 potassium, serum 4.5 mmol/L 3.5-5.2 chloride, serum [...] Negative Encounters Code Encounter Date Provider Facility CPT-80847 Level 3 Est. Patient 09:32:55 CDT Hector Love MD [facility] CPT-74059 Level 3 Est. Patient 15:11:08 MANAGER BAKERY Иван Mooney MD [facility] CPT-43572 Level 3 Est. Patient 16:38:53 MANAGER BAKERY Hector Love MD [facility] CPT-48813 Level 3 Est. Patient 15:46:05 CDT Hector Love MD [facility] CPT-92238 Level 3 Est. Patient 13:59:39 CDT Hector Love MD [facility] CPT-46149 Level 3 Est. Patient 14:44:46 MANAGER BAKERY Hector Love MD [facility] CPT-89074 Level 3 Est. Patient 17:12:27 CDT Hector Love MD [facility] CPT-66576 Level 3 Est. Patient 15:30:32 CDT Hector Love MD [facility] CPT-40745 Level 3 Est. Patient 14:24:52 CDT Иван Mooney MD [facility] CPT-04654 Level 3 Est. Patient 14:08:38 MANAGER BAKERY Hector Love MD [facility] Procedures Code Procedure Name Date Entry Date Standard Description CPT-61619 Administration single or combination vaccine inc oral 13 :57:23 CDT CPT-08913 Menactra Intramuscular Injectable 13:57:23 CDT CPT-35555 First Vx Component - Ix admin via ID IM or jet inj without physician counseling 16:42:17 MANAGER BAKERY CPT-19522 Fluzone preservative free (>=3 yrs.) 16:42:17 MANAGER BAKERY 06/03 CPT-36444 Venipuncture Draw Fee 16:29:01 CDT CPT-04527 Chest 2V Frontal and Lat 16:23:56 CDT CPT-40890 Administration single or combination vaccine inc oral 13 :39:17 MANAGER BAKERY CPT-96350 Tdap 13:39:17 MANAGER BAKERY
--- OUTSIDE RECORDS SUMMARY | 2017-12-24 18:29 | XMS REPORT | Clinical Summary ---
Author Author Admin, LAMBERT Organization [facility] Address Unknown Phone Unavailable Allergies, Adverse Reactions, [...] 5 MG TABS 1 tab qd LISINOPRIL 10551690601 Active Hector Love MD Active KETOCONAZOLE 2 % CREA apply twice a day to rash KETOCONAZOLE 20405258483 No Longer Active Hector Love MD Active AUGMENTIN 875-125 MG TAB 1 tab by mouth twice daily with food AMOXICILLIN-POT CLAVULANATE 83218323372 No Longer Active Иван Mooney MD Active LOTRISONE 0.05-1 % CREAM Apply twice a day to affected area 07/19 CLOTRIMAZOLE-BETAMETHASONE 39275176107 No Longer Active Иван Mooney MD Active PROGRAF 1 MG CAPS 4 tabs po bid TACROLIMUS 65470541975 Active Hector Love MD Active FEXOFENADINE HCL 180 MG TABS 1 Daily FEXOFENADINE HCL 32203039381 No Longer Active Hector Love MD Active PROGRAF 0.5 MG CAPS Take one by mouth daily with 1 mg TACROLIMUS 89956157220 No Longer Active Hector Love MD Active AMOXICILLIN 500 MG CAPS 2 po BID x 10 days AMOXICILLIN 00997122382 No Longer Active Hector Love MD Active RAPAMUNE 1 MG TABS 3 tabs in the am SIROLIMUS 14613291164 No Longer Active Hector Love MD Active AMOXICILLIN 500 MG CAPS 2 po BID x 10 days AMOXICILLIN 09287935780 No Longer Active Hector Love MD Active LORTAB 5 5-500 MG TABS 1/2 to 1 tablet by mouth every 4 hours as needed for pain HYDROCODONE-ACETAMINOPHEN 02320004799 No Longer Active Hector Love MD Active FLUTICASONE PROPIONATE 50 MCG/ACT SUSP INSTILL 2 SPRAYS IN EACH NOSTRIL Q D FLUTICASONE PROPIONATE 22491279579 No Longer Active Hector Love MD Active PROGRAF 1 MG CAPS 1 po bid TACROLIMUS 86584805240 No Longer Active Hector Love MD Active AMOXICILLIN 875 MG TABS 1 tab by mouth twice daily AMOXICILLIN 75626965740 No Longer Active Hecotr Love MD Active AMOXICILLIN 500 MG CAPS 2 po BID x 10 days AMOXICILLIN 88766668897 No Longer Active Hector Love MD Active AUGMENTIN 875-125 MG TAB 1 tab by mouth twice daily with food AMOXICILLIN-POT CLAVULANATE 14873954125 No Longer Active Hector Love MD Active AZITHROMYCIN 250 MG TABS 2 po qd x 1 day, then 1 po qd x 4 days AZITHROMYCIN 18249791060 No Longer Active Hector Love MD Active CETIRIZINE HCL 10 MG TABS 1 PO Q D CETIRIZINE HCL 09749744654 No Longer Active [place] Active PROGRAF 1 MG CAPS 1 po bid PROGRAF 1 MG CAPS 629826 TACROLIMUS Inactive FLUTICASONE PROPIONATE 50 MCG/ACT SUSP INSTILL 2 SPRAYS IN EACH NOSTRIL Q D FLUTICASONE PROPIONATE 50 MCG/ACT SUSP 031305 FLUTICASONE PROPIONATE Inactive LORTAB 5 5-500 MG TABS 1/2 to 1 tablet by mouth every 4 hours as needed for pain LORTAB 5 5-500 MG TABS HYDROCODONE- ACETAMINOPHEN Inactive RAPAMUNE 1 MG TABS 3 tabs in the am RAPAMUNE 1 MG TABS SIROLIMUS Inactive PROGRAF 0.5 MG CAPS Take one by mouth daily with 1 mg PROGRAF 0.5 MG CAPS 147768 TACROLIMUS Inactive FEXOFENADINE HCL 180 MG TABS 1 Daily FEXOFENADINE HCL 180 MG TABS 789029 FEXOFENADINE HCL Inactive LOTRISONE 0.05-1 % CREAM Apply twice a day to affected area 07/19 LOTRISONE 0.05-1 % CREAM 210702 CLOTRIMAZOLE-BETAMETHASONE Inactive KETOCONAZOLE 2 % CREA apply twice a day to rash KETOCONAZOLE 2 % CREA 661568 KETOCONAZOLE Inactive AMOXICILLIN 500 MG CAPS 2 po BID x 10 days AMOXICILLIN 500 MG CAPS 953293 AMOXICILLIN Inactive AMOXICILLIN 875 MG TABS 1 tab by mouth twice daily AMOXICILLIN 875 MG TABS 428127 AMOXICILLIN Inactive AMOXICILLIN 500 MG CAPS 2 po BID x 10 days AMOXICILLIN 500 MG CAPS 952670 AMOXICILLIN Inactive AMOXICILLIN 500 MG CAPS 2 po BID x 10 days AMOXICILLIN 500 MG CAPS 076392 AMOXICILLIN Inactive AUGMENTIN 875-125 MG TAB 1 tab by mouth twice daily with food AUGMENTIN 875-125 MG TAB 577029 AMOXICILLIN-POT CLAVULANATE Inactive Advance Directives Directive Description Start Date PERMISSION TO SHARE Immunizations Vaccine Administration Date Value Standard Description Seasonal influenza vaccine, injectable, preservative free, for > 3 years old ( Afluria, FluLaval, Fluzone, Fluvirin, Fluarix, Agriflu(>=18 yo)) Fluzone preservative free (>=3 yrs.) [IXM636] Influenza, seasonal, injectable, preservative free Adacel (Tetanus, reduced Diphtheria, and acellular Pertussis Immunization) Adacel [[id number]] tetanus toxoid, reduced diphtheria toxoid, and acellular [...] ... - Chemistry sodium, serum 137 mmol/L 259-158 2371/08/22 potassium, serum 4.5 mmol/L 3.5-5.2 chloride, serum [...] dipstick Negative Negative sodium, serum 139 mmol/L 957-104 9482/07/18 potassium, serum 4.5 mmol/L 3.5-5.2 chloride, serum [...] Negative Encounters Code Encounter Date Provider Facility CPT-53419 Level 3 Est. Patient 09:32:55 CDT Hector Love MD [facility] CPT-55844 Level 3 Est. Patient 15:11:08 FAST FOOD WORKER Иван Mooney MD [facility] CPT-76531 Level 3 Est. Patient 16:38:53 FAST FOOD WORKER Hector Love MD [facility] CPT-21076 Level 3 Est. Patient 15:46:05 CDT Hector Love MD [facility] CPT-75183 Level 3 Est. Patient 13:59:39 CDT Hector Love MD [facility] CPT-23119 Level 3 Est. Patient 14:44:46 FAST FOOD WORKER Hector Love MD [facility] CPT-43617 Level 3 Est. Patient 17:12:27 CDT Hector Love MD [facility] CPT-71495 Level 3 Est. Patient 15:30:32 CDT Hector Love MD [facility] CPT-82853 Level 3 Est. Patient 14:24:52 CDT Иван Mooney MD [facility] CPT-12867 Level 3 Est. Patient 14:08:38 FAST FOOD WORKER Hector Love MD [facility] Procedures Code Procedure Name Date Entry Date Standard Description CPT-79639 Administration single or combination vaccine inc oral 13 :57:23 CDT CPT-80992 Menactra Intramuscular Injectable 13:57:23 CDT CPT-64616 First Vx Component - Ix admin via ID IM or jet inj without physician counseling 16:42:17 FAST FOOD WORKER CPT-07801 Fluzone preservative free (>=3 yrs.) 16:42:17 FAST FOOD WORKER 06/03 CPT-33364 Venipuncture Draw Fee 16:29:01 CDT CPT-04637 Chest 2V Frontal and Lat 16:23:56 CDT CPT-28309 Administration single or combination vaccine inc oral 13 :39:17 FAST FOOD WORKER CPT-11308 Tdap 13:39:17 FAST FOOD WORKER
--- OUTSIDE RECORDS SUMMARY | 2017-12-24 18:30 | XMS REPORT | Clinical Summary ---
Author Author Admin, LAMBERT Organization [facility] Address Unknown Phone Unavailable Allergies, Adverse [...] Jen Crystal MD PhD Acute frontal sinusitis NEED FOR PROPHYLACTIC VACCINATION WITH STREPTOCOCCUS PNEUMONIAE (PNEUMOCOCCUS) AND INFLUENZA V06.6 Active ZUNILDA Bowling Need for prophylactic vaccination and inoculation against Streptococcus pneumoniae [pneumococcus] and influenza FH DIABETES ICD-V18.0 Inactive Hector Love MD [...] Name NDC Status Provider Patient Instruction FLONASE 50 MCG/ACT SUSP 2 puffs in each nostril daily PRN Allergies FLUTICASONE PROPIONATE 31536720224 Active Hector Love MD Active AUGMENTIN 875-125 MG TAB 1 tab by mouth twice daily with food AMOXICILLIN-POT CLAVULANATE 34396079461 Active Hector Love MD Active LEVAQUIN 500 MG TABS 1 pill by mouth daily LEVOFLOXACIN 32384421660 No Longer Active Jen Crystal MD PhD Active LISINOPRIL 5 MG TABS 1.5 tab qd LISINOPRIL 25875045523 Active Jen Crystal MD PhD Active KETOCONAZOLE 2 % CREA apply twice a day to rash KETOCONAZOLE 78635397632 No Longer Active Hector Love MD Active AUGMENTIN 875-125 MG TAB 1 tab by mouth twice daily with food AMOXICILLIN-POT CLAVULANATE 14947535075 No Longer Active Иван Mooney MD Active LOTRISONE 0.05-1 % CREAM Apply twice a day to affected area 07/19 CLOTRIMAZOLE-BETAMETHASONE 36208914366 No Longer Active Иван Mooney MD Active PROGRAF 1 MG CAPS 4 tabs po bid TACROLIMUS 10585539715 Active Hector Love MD Active FEXOFENADINE HCL 180 MG TABS 1 Daily FEXOFENADINE HCL 96439921579 No Longer Active Hector Love MD Active PROGRAF 0.5 MG CAPS Take one by mouth daily with 1 mg TACROLIMUS 92669983132 No Longer Active Hector Love MD Active AMOXICILLIN 500 MG CAPS 2 po BID x 10 days AMOXICILLIN 07406884942 No Longer Active Hector Love MD Active RAPAMUNE 1 MG TABS 3 tabs in the am SIROLIMUS 05137776285 No Longer Active Hector Love MD Active AMOXICILLIN 500 MG CAPS 2 po BID x 10 days AMOXICILLIN 31266059384 No Longer Active Hector Love MD Active LORTAB 5 5-500 MG TABS 1/2 to 1 tablet by mouth every 4 hours as needed for pain HYDROCODONE-ACETAMINOPHEN 83228602020 No Longer Active Hector Love MD Active FLUTICASONE PROPIONATE 50 MCG/ACT SUSP INSTILL 2 SPRAYS IN EACH NOSTRIL Q D FLUTICASONE PROPIONATE 43544732684 No Longer Active Hector Love MD Active PROGRAF 1 MG CAPS 1 po bid TACROLIMUS 18233008951 No Longer Active Hector Love MD Active AMOXICILLIN 875 MG TABS 1 tab by mouth twice daily AMOXICILLIN 97246553347 No Longer Active Hector Love MD Active AMOXICILLIN 500 MG CAPS 2 po BID x 10 days AMOXICILLIN 83538479328 No Longer Active Hector Love MD Active AUGMENTIN 875-125 MG TAB 1 tab by mouth twice daily with food AMOXICILLIN-POT CLAVULANATE 27648268956 No Longer Active Hector Love MD Active AZITHROMYCIN 250 MG TABS 2 po qd x 1 day, then 1 po qd x 4 days AZITHROMYCIN 80267226625 No Longer Active Hector Love MD Active CETIRIZINE HCL 10 MG TABS 1 PO Q D CETIRIZINE HCL 95501342980 No Longer Active [place] Desha Active PROGRAF 1 MG CAPS 1 po bid PROGRAF 1 MG CAPS 916159 TACROLIMUS Inactive FLUTICASONE PROPIONATE 50 MCG/ACT SUSP INSTILL 2 SPRAYS IN EACH NOSTRIL Q D FLUTICASONE PROPIONATE 50 MCG/ACT SUSP 001405 FLUTICASONE PROPIONATE Inactive LORTAB 5 5-500 MG TABS 1/2 to 1 tablet by mouth every 4 hours as needed for pain LORTAB 5 5-500 MG TABS HYDROCODONE- ACETAMINOPHEN Inactive RAPAMUNE 1 MG TABS 3 tabs in the am RAPAMUNE 1 MG TABS 057472 SIROLIMUS Inactive PROGRAF 0.5 MG CAPS Take one by mouth daily with 1 mg PROGRAF 0.5 MG CAPS 534105 TACROLIMUS Inactive FEXOFENADINE HCL 180 MG TABS 1 Daily FEXOFENADINE HCL 180 MG TABS 223885 FEXOFENADINE HCL Inactive LOTRISONE 0.05-1 % CREAM Apply twice a day to affected area 07/19 LOTRISONE 0.05-1 % CREAM 404737 CLOTRIMAZOLE-BETAMETHASONE Inactive KETOCONAZOLE 2 % CREA apply twice a day to rash KETOCONAZOLE 2 % CREA 207945 KETOCONAZOLE Inactive AMOXICILLIN 500 MG CAPS 2 po BID x 10 days AMOXICILLIN 500 MG CAPS 757063 AMOXICILLIN Inactive AMOXICILLIN 875 MG TABS 1 tab by mouth twice daily AMOXICILLIN 875 MG TABS 029293 AMOXICILLIN Inactive AMOXICILLIN 500 MG CAPS 2 po BID x 10 days AMOXICILLIN 500 MG CAPS 626787 AMOXICILLIN Inactive AMOXICILLIN 500 MG CAPS 2 po BID x 10 days AMOXICILLIN 500 MG CAPS 471623 AMOXICILLIN Inactive AUGMENTIN 875-125 MG TAB 1 tab by mouth twice daily with food AUGMENTIN 875-125 MG TAB 590159 AMOXICILLIN-POT CLAVULANATE Inactive LEVAQUIN 500 MG TABS 1 pill by mouth daily LEVAQUIN 500 MG TABS 964528 LEVOFLOXACIN Inactive Advance Directives Directive Description Start Date PERMISSION TO SHARE Immunizations Vaccine Administration Date Value Standard Description Seasonal influenza vaccine, injectable, preservative free, for > 3 years old ( Afluria, FluLaval, Fluzone, Fluvirin, Fluarix, Agriflu(>=18 yo)) Fluzone preservative free (>=3 yrs.) [[id number]] Influenza, seasonal, injectable, preservative free Adacel (Tetanus, reduced Diphtheria, and acellular Pertussis Immunization) Adacel [ZDF529] tetanus toxoid, reduced diphtheria toxoid, and acellular [...] Range Description blood pressure, diastolic - 8462-4 90 mm[Hg] [...] 47 U/L alkaline phosphatase, serum 68 U/L Chart Maintenance: Outside labs entered on flowsheet - Hematology leukocyte count, blood 7.9 10*3/mm3 hemoglobin, blood 14.8 g/dL platelet count 223 10*3/mm3 Lab Report: CBC W/ DIFF - Hematology leukocyte count, blood 8.5 10*3/mm3 hemoglobin, blood 15.9 g/dL platelet count 12.1 10*3/mm3 Lab Report: CBC W/DIFF, Comp. Metabolic Panel, Thyroid Stimulating Hormo ... - Chemistry protein, total urine random Negative mg/dL Negative RBC, urine, dipstick Negative Negative sodium, serum 139 mmol/L 385-449 6213/07/18 potassium, serum 4.5 mmol/L 3.5-5.2 chloride, serum [...] Panel, Thyroid Stimulating Hormo ... - Hematology hemoglobin, blood 14.9 g/dL 13.5-17.5 hematocrit, blood 44.1 % 41.0-53.0 mean corpuscular volume, RBC 89 fL 80-97 mean corpuscular hemoglobin, RBC 30.1 pg 27.0-31.2 mean corpuscular hemoglobin concentration, RBC 33.8 G/DL % 31.8- 35.4 red blood cell distribution width 15.0 % 11.6-14.8 platelet count 210 10^3/MM^3 10*3/mm3 091-285 5417/07/18 erythrocyte (RBC) count 4.95 10^6/MM^3 10*6/mm3 4.69-6.13 lymphocytes as percent of blood leukocytes 40.5 % 20.5-51.1 monocytes as percent of blood leukocytes 9.6 % 1.7-9.3 neutrophils as percent of blood leukocytes 46.5 % 42.2-75.2 leukocyte count, blood 7.6 10^3/MM^3 10*3/mm3 4.6-10.2 Lab Report: CBC W/DIFF, Comp. Metabolic Panel, [...] Negative Encounters Code Encounter Date Provider Facility CPT-72408 Level 3 Est. Patient 14:50:45 CDT Hector Love MD [facility] CPT-98282 Level 3 Est. Patient 21:17:30 CDT Jen Crystal MD PhD [facility] CPT-04819 Level 3 Est. Patient 09:32:55 CDT Hector Love MD [facility] CPT-18298 Level 3 Est. Patient 15:11:08 CASH MANAGEMENT OFFICER Иван Mooney MD [facility] CPT-96959 Level 3 Est. Patient 16:38:53 CASH MANAGEMENT OFFICER Hector Love MD [facility] CPT-40748 Level 3 Est. Patient 15:46:05 CDT Hector Love MD [facility] CPT-40467 Level 3 Est. Patient 13:59:39 CDT Hector Love MD [facility] CPT-98173 Level 3 Est. Patient 14:44:46 CASH MANAGEMENT OFFICER Hector Love MD [facility] CPT-88243 Level 3 Est. Patient 17:12:27 CDT Hector Love MD [facility] CPT-10508 Level 3 Est. Patient 15:30:32 CDT Hector Love MD [facility] CPT-72646 Level 3 Est. Patient 14:24:52 CDT Иван Mooney MD [facility] CPT-60428 Level 3 Est. Patient 14:08:38 CASH MANAGEMENT OFFICER Hector Love MD [facility] Procedures Code Procedure Name Date Entry Date Standard Description CPT-48256 Immunization Single Admin 16:11:28 CASH MANAGEMENT OFFICER CPT-26104 Fluzone Quadrivalent Intramuscular Suspension 0.5 ML 16: 11:28 CASH MANAGEMENT OFFICER CPT-74874 Administration single or combination vaccine inc oral 13 :57:23 CDT CPT-52112 Menactra Intramuscular Injectable 13:57:23 CDT CPT-98884 First Vx Component - Ix admin via ID IM or jet inj without physician counseling 16:42:17 CASH MANAGEMENT OFFICER CPT-40749 Fluzone preservative free (>=3 yrs.) 16:42:17 CASH MANAGEMENT OFFICER 06/03 CPT-43015 Venipuncture Draw Fee 16:29:01 CDT CPT-20337 Chest 2V Frontal and Lat 16:23:56 CDT CPT-48188 Administration single or combination vaccine inc oral 13 :39:17 CASH MANAGEMENT OFFICER CPT-01396 Tdap 13:39:17 CASH MANAGEMENT OFFICER
--- OUTSIDE RECORDS SUMMARY | 2017-12-24 18:30 | XMS REPORT | Clinical Summary ---
Author Author Admin, LAMBERT Organization [facility] Address Unknown Phone Allergies, Adverse Reactions, Alerts Allergy Name Reaction [...] Resolved Hector Love MD Cough COUGH 786.2 Active Иван Mooney MD Cough COSTOCHRONDRITIS 733.6 Resolved Hector Love MD Tietze's disease SINUSITIS, ACUTE 461.9 Resolved Hector Love MD Acute sinusitis, unspecified FEVER UNSPECIFIED 780.60 Resolved Hector Love MD Fever, unspecified Tinea corporis 110.5 Active Hector Love MD Dermatophytosis of the body Sinusitis 461.9 Active Иван Mooney MD Acute sinusitis, unspecified Fever 780.60 07/19/2013 Active Иван Mooney MD Fever, unspecified FH DIABETES ICD-V18.0 Inactive Hector Love MD BRONCHITIS, ACUTE ICD-466.0 Inactive Hector Love MD KNEE SPRAIN, LEFT ICD-844.9 Inactive Hector Love MD U R I ICD-465.9 Inactive Hector Love MD COSTOCHRONDRITIS ICD-733.6 Inactive Hector Love MD SINUSITIS, ACUTE ICD-461.9 Inactive Hector Love MD FEVER UNSPECIFIED ICD-780.60 Inactive Hector Love MD Medication List Medication Instructions Start Date Stop Date Generic Name NDC Status Provider Patient Instruction AUGMENTIN 875-125 MG TAB 1 tab by mouth twice daily with food AMOXICILLIN-POT CLAVULANATE 21449865349 No Longer Active Иван Mooney MD Active KETOCONAZOLE 2 % CREA apply twice a day to rash KETOCONAZOLE 99020960978 Active Иван Mooney MD Active LOTRISONE 0.05-1 % CREAM Apply twice a day to affected area 07/19 CLOTRIMAZOLE-BETAMETHASONE 59750301280 No Longer Active Иван Mooney MD Active PROGRAF 1 MG CAPS 4 tabs po bid TACROLIMUS 28843899857 Active Hector Love MD Active FEXOFENADINE HCL 180 MG TABS 1 Daily FEXOFENADINE HCL 34894402839 No Longer Active Hector Love MD Active PROGRAF 0.5 MG CAPS Take one by mouth daily with 1 mg TACROLIMUS 95592314986 No Longer Active Hector Love MD Active AMOXICILLIN 500 MG CAPS 2 po BID x 10 days AMOXICILLIN 15054870730 No Longer Active Hector Love MD Active RAPAMUNE 1 MG TABS 3 tabs in the am SIROLIMUS 27408254279 No Longer Active Hector Love MD Active AMOXICILLIN 500 MG CAPS 2 po BID x 10 days AMOXICILLIN 11209394313 No Longer Active Hector Love MD Active LORTAB 5 5-500 MG TABS 1/2 to 1 tablet by mouth every 4 hours as needed for pain HYDROCODONE-ACETAMINOPHEN 56042685261 No Longer Active Hector Love MD Active FLUTICASONE PROPIONATE 50 MCG/ACT SUSP INSTILL 2 SPRAYS IN EACH NOSTRIL Q D FLUTICASONE PROPIONATE 20262973251 No Longer Active Hector Love MD Active PROGRAF 1 MG CAPS 1 po bid TACROLIMUS 81777982935 No Longer Active Hector Love MD Active AMOXICILLIN 875 MG TABS 1 tab by mouth twice daily AMOXICILLIN 47111556401 No Longer Active Hector Love MD Active AMOXICILLIN 500 MG CAPS 2 po BID x 10 days AMOXICILLIN 43302886225 No Longer Active Hector Love MD Active AUGMENTIN 875-125 MG TAB 1 tab by mouth twice daily with food AMOXICILLIN-POT CLAVULANATE 79513050721 No Longer Active Hector Love MD Active AZITHROMYCIN 250 MG TABS 2 po qd x 1 day, then 1 po qd x 4 days AZITHROMYCIN 54932129557 No Longer Active Hector Love MD Active LISINOPRIL 5 MG TABS 1 1/2 tab qd LISINOPRIL 58815991679 Active Hector Love MD Active CETIRIZINE HCL 10 MG TABS 1 PO Q D CETIRIZINE HCL 89703251595 No Longer Active [place] Active PROGRAF 1 MG CAPS 1 po bid PROGRAF 1 MG CAPS 380292 TACROLIMUS Inactive FLUTICASONE PROPIONATE 50 MCG/ACT SUSP INSTILL 2 SPRAYS IN EACH NOSTRIL Q D FLUTICASONE PROPIONATE 50 MCG/ACT SUSP 009422 FLUTICASONE PROPIONATE Inactive LORTAB 5 5-500 MG TABS 1/2 to 1 tablet by mouth every 4 hours as needed for pain LORTAB 5 5-500 MG TABS HYDROCODONE- ACETAMINOPHEN Inactive RAPAMUNE 1 MG TABS 3 tabs in the am RAPAMUNE 1 MG TABS SIROLIMUS Inactive PROGRAF 0.5 MG CAPS Take one by mouth daily with 1 mg PROGRAF 0.5 MG CAPS 195669 TACROLIMUS Inactive FEXOFENADINE HCL 180 MG TABS 1 Daily FEXOFENADINE HCL 180 MG TABS 865838 FEXOFENADINE HCL Inactive LOTRISONE 0.05-1 % CREAM Apply twice a day to affected area 07/19 LOTRISONE 0.05-1 % CREAM 793960 CLOTRIMAZOLE-BETAMETHASONE Inactive AMOXICILLIN 500 MG CAPS 2 po BID x 10 days AMOXICILLIN 500 MG CAPS 816594 AMOXICILLIN Inactive AMOXICILLIN 875 MG TABS 1 tab by mouth twice daily AMOXICILLIN 875 MG TABS 812100 AMOXICILLIN Inactive AMOXICILLIN 500 MG CAPS 2 po BID x 10 days AMOXICILLIN 500 MG CAPS 831687 AMOXICILLIN Inactive AMOXICILLIN 500 MG CAPS 2 po BID x 10 days AMOXICILLIN 500 MG CAPS 500029 AMOXICILLIN Inactive AUGMENTIN 875-125 MG TAB 1 tab by mouth twice daily with food AUGMENTIN 875-125 MG TAB 634537 AMOXICILLIN-POT CLAVULANATE Inactive Advance Directives Directive Description Start Date PERMISSION TO SHARE Immunizations Vaccine Administration Date Value Standard Description Seasonal influenza vaccine, injectable, preservative free, for > 3 years old ( Afluria, FluLaval, Fluzone, Fluvirin, Fluarix, Agriflu(>=18 yo)) Fluzone preservative free (>=3 yrs.) [CSU416] Influenza, seasonal, injectable, preservative free Adacel immunization Adacel [AED293] tetanus toxoid, reduced diphtheria toxoid, and acellular pertussis vaccine, adsorbed DPT immunization #5 DTaP oral polio vaccine (OPV) #4 Historical poliovirus vaccine, unspecified formulation MMR virus immunization #2 MMR DPT immunization #4 DTaP Hemophilus influenza B immunization #4 Hibtitre Haemophilus influenzae type b vaccine, conjugate unspecified formulation MMR virus immunization #1 MMR hepatitis B vaccine [...] vaccine, unspecified formulation hepatitis B vaccine #2 Historical hepatitis B vaccine, unspecified formulation hepatitis B vaccine #1 Historical hepatitis B vaccine, unspecified formulation DPT immunization #1 DPT Hemophilus influenza B immunization #1 Hibtitre Haemophilus influenzae type b vaccine, conjugate unspecified formulation oral polio vaccine (OPV) #1 Historical poliovirus vaccine, unspecified formulation Vital Signs Date Name Value Unit Range Description blood pressure, diastolic 77 mm[Hg] BP [place] blood pressure, systolic 132 mm[Hg] BP sys height E&M 70.25 [in_us] Bdy height pulse rate E&M 81 /min Heart rate temperature E&M 98.6 [degF] Body temperature weight E&M 222 [lb_av] Weight Measured blood pressure, diastolic 77 mm[Hg] BP [place] blood pressure, systolic 132 mm[Hg] BP sys height E&M 70.25 [in_us] Bdy height pulse rate E&M 69 /min Heart rate temperature E&M 97.6 [degF] Body temperature weight E&M 212 [lb_av] Weight Measured blood pressure, diastolic 85 mm[Hg] BP [place] blood pressure, systolic 126 mm[Hg] BP sys height E&M 69.25 [in_us] Bdy height pulse rate E&M 79 /min Heart rate temperature E&M 98.5 [degF] Body temperature weight E&M 216.19 [lb_av] Weight Measured Diagnostic Results Date Name Value Unit Range Description Chart Maintenance: Outside labs entered on flowsheet - Chemistry sodium, serum 140 mmol/L potassium, serum 4.4 mmol/L chloride, serum 103 mmol/L carbon dioxide, venous blood 28 mmol/L urea nitrogen, blood 16 mg/dL blood glucose 102 mg/dL creatinine, serum .68 mg/dL aspartate aminotransferase (SGOT), serum 24 U/L alanine aminotransferase (SGPT), serum 32 U/L bilirubin, serum, total 1.9 mg/dL alkaline phosphatase, serum 77 U/L calcium, serum 9.7 mg/dL cholesterol, serum 124 mg/dL HDL cholesterol, serum 47 mg/dL LDL cholesterol, serum 61 mg/dL triglyceride, serum, fasting 81 mg/dL sodium, serum 142 mmol/L potassium, serum 3.8 [...] % platelet count 263 10*3/mm3 hemoglobin, blood 15.5 g/dL hematocrit, blood 43.2 % mean corpuscular volume, RBC 85.2 fL mean corpuscular hemoglobin, RBC 30.6 pg red blood cell distribution width 13.2 % hemoglobin, blood 15.6 g/dL hematocrit, blood 46.7 % mean corpuscular volume, RBC 90.28 fL mean corpuscular hemoglobin, RBC 30.1 pg red blood cell distribution width 12.2 % Lab Report: CBC W/ DIFF - Hematology leukocyte count, blood 8.5 10*3/mm3 hemoglobin, blood 15.9 g/dL platelet count 12.1 10*3/mm3 Lab Report: CBC W/DIFF, Comp. Metabolic Panel, RapidStrep Rflx/Cx, UADIP ... - Chemistry RBC, urine, dipstick Negative Negative protein, total urine random Negative mg/dL Negative sodium, serum 137 mmol/L 397-426 4282/08/22 potassium, serum 4.5 mmol/L 3.5-5.2 chloride, serum [...] 8.5-10.1 bilirubin, serum, total 2.04 mg/dL 0.00-1.00 Lab Report: CBC W/DIFF, Comp. Metabolic Panel, [...] Metabolic Panel, RapidStrep Rflx/Cx, UADIP ... - Microbiology Microbial identification kit, rapid strep method Negative-Throat [...] Negative Negative nitrite, urine, semiquantitative Negative Negative Encounters Code Encounter Date Provider Facility CPT-06065 Level 3 Est. Patient 15:11:08 [employer] Иван Mooney MD [facility] CPT-32194 Level 3 Est. Patient 16:38:53 [employer]ER Hector Love MD [facility] CPT-79373 Level 3 Est. Patient 15:46:05 CDT Hector Love MD [facility] CPT-45887 Level 3 Est. Patient 13:59:39 CDT Hector Love MD [facility] CPT-83345 Level 3 Est. 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 Patient 17:12:27 CDT Hector Love MD [facility] CPT-92082 Level 3 Est. Patient 15:30:32 CDT Hector Love MD [facility] CPT-15730 Level 3 Est. Patient 14:24:52 CDT Иван Mooney MD [facility] CPT-80852 Level 3 Est. Patient 14:08:38 [employer] Hector Love MD [facility] Procedures Code Procedure Name Date Entry Date Standard Description CPT-87465 First Vx Component - Ix admin via ID IM or jet inj without physician counseling 16:42:17 [employer] CPT-66705 Fluzone preservative free (>=3 yrs.) 16:42:17 [employer] FINISHER 06/03 CPT-76101 Venipuncture Draw Fee 16:29:01 CDT CPT-15553 Chest 2V Frontal and Lat 16:23:56 CDT CPT-50426 Administration single or combination vaccine inc oral 13 :39:17 [employer]ISHER CPT-95849 Tdap 13:39:17 [employer]
--- OUTSIDE RECORDS SUMMARY | 2017-12-24 18:31 | XMS REPORT | Clinical Summary ---
Author Author Admin, LAMBERT Organization [facility] Address Unknown Phone Unavailable Allergies, Adverse Reactions, [...] [pneumococcus] and influenza Gastroenteritis, viral, acute 008.8 Active Hector Love MD Intestinal infection due to other organism, not elsewhere classified FH DIABETES ICD-V18.0 Inactive Hector Love MD [...] Generic Name NDC Status Provider Patient Instruction ZOFRAN 4 MG TABS 1 po q6hr PRN Nausea ONDANSETRON HCL 20415559356 Active Hector Love MD Active AUGMENTIN 875-125 MG TAB 1 tab by mouth twice daily with food AMOXICILLIN-POT CLAVULANATE 22450537069 No Longer Active Hector Love MD Active FLONASE 50 MCG/ACT SUSP 2 puffs in each nostril daily PRN Allergies FLUTICASONE PROPIONATE 45174517451 Active Hector Love MD Active LEVAQUIN 500 MG TABS 1 pill by mouth daily LEVOFLOXACIN 78101761142 No Longer Active Jen Crystal MD PhD Active LISINOPRIL 5 MG TABS 1.5 tab qd LISINOPRIL 12246254498 Active Jen Crystal MD PhD Active KETOCONAZOLE 2 % CREA apply twice a day to rash KETOCONAZOLE 99035990689 No Longer Active Hector Love MD Active AUGMENTIN 875-125 MG TAB 1 tab by mouth twice daily with food AMOXICILLIN-POT CLAVULANATE 71214571327 No Longer Active Иван Mooney MD Active LOTRISONE 0.05-1 % CREAM Apply twice a day to affected area 07/19 CLOTRIMAZOLE-BETAMETHASONE 14091059691 No Longer Active Иван Mooney MD Active PROGRAF 1 MG CAPS 4 tabs po bid TACROLIMUS 43019965336 Active Hector Love MD Active FEXOFENADINE HCL 180 MG TABS 1 Daily FEXOFENADINE HCL 94234474757 No Longer Active Hector Love MD Active PROGRAF 0.5 MG CAPS Take one by mouth daily with 1 mg TACROLIMUS 95392925537 No Longer Active Hector Love MD Active AMOXICILLIN 500 MG CAPS 2 po BID x 10 days AMOXICILLIN 16460838141 No Longer Active Hector Love MD Active RAPAMUNE 1 MG TABS 3 tabs in the am SIROLIMUS 84122230383 No Longer Active Hector Love MD Active AMOXICILLIN 500 MG CAPS 2 po BID x 10 days AMOXICILLIN 07742125435 No Longer Active Hector Love MD Active LORTAB 5 5-500 MG TABS 1/2 to 1 tablet by mouth every 4 hours as needed for pain HYDROCODONE-ACETAMINOPHEN 41014489776 No Longer Active Hector Love MD Active FLUTICASONE PROPIONATE 50 MCG/ACT SUSP INSTILL 2 SPRAYS IN EACH NOSTRIL Q D FLUTICASONE PROPIONATE 66279592730 No Longer Active Hector Love MD Active PROGRAF 1 MG CAPS 1 po bid TACROLIMUS 13305220234 No Longer Active Hector Love MD Active AMOXICILLIN 875 MG TABS 1 tab by mouth twice daily AMOXICILLIN 43318002288 No Longer Active Hector Love MD Active AMOXICILLIN 500 MG CAPS 2 po BID x 10 days AMOXICILLIN 84889154914 No Longer Active Hector Love MD Active AUGMENTIN 875-125 MG TAB 1 tab by mouth twice daily with food AMOXICILLIN-POT CLAVULANATE 10493745721 No Longer Active Hector Love MD Active AZITHROMYCIN 250 MG TABS 2 po qd x 1 day, then 1 po qd x 4 days AZITHROMYCIN 42948051160 No Longer Active Hector Love MD Active CETIRIZINE HCL 10 MG TABS 1 PO Q D CETIRIZINE HCL 96509017661 No Longer Active [place] Active PROGRAF 1 MG CAPS 1 po bid PROGRAF 1 MG CAPS 375252 TACROLIMUS Inactive FLUTICASONE PROPIONATE 50 MCG/ACT SUSP INSTILL 2 SPRAYS IN EACH NOSTRIL Q D FLUTICASONE PROPIONATE 50 MCG/ACT SUSP 045808 FLUTICASONE PROPIONATE Inactive LORTAB 5 5-500 MG TABS 1/2 to 1 tablet by mouth every 4 hours as needed for pain LORTAB 5 5-500 MG TABS HYDROCODONE- ACETAMINOPHEN Inactive RAPAMUNE 1 MG TABS 3 tabs in the am RAPAMUNE 1 MG TABS 643130 SIROLIMUS Inactive PROGRAF 0.5 MG CAPS Take one by mouth daily with 1 mg PROGRAF 0.5 MG CAPS 017092 TACROLIMUS Inactive FEXOFENADINE HCL 180 MG TABS 1 Daily FEXOFENADINE HCL 180 MG TABS 958786 FEXOFENADINE HCL Inactive LOTRISONE 0.05-1 % CREAM Apply twice a day to affected area 07/19 LOTRISONE 0.05-1 % CREAM 843706 CLOTRIMAZOLE-BETAMETHASONE Inactive KETOCONAZOLE 2 % CREA apply twice a day to rash KETOCONAZOLE 2 % CREA 965933 KETOCONAZOLE Inactive AUGMENTIN 875-125 MG TAB 1 tab by mouth twice daily with food AUGMENTIN 875-125 MG TAB 718616 AMOXICILLIN-POT CLAVULANATE Inactive AMOXICILLIN 500 MG CAPS 2 po BID x 10 days AMOXICILLIN 500 MG CAPS 254511 AMOXICILLIN Inactive AMOXICILLIN 875 MG TABS 1 tab by mouth twice daily AMOXICILLIN 875 MG TABS 388248 AMOXICILLIN Inactive AMOXICILLIN 500 MG CAPS 2 po BID x 10 days AMOXICILLIN 500 MG CAPS 405747 AMOXICILLIN Inactive AMOXICILLIN 500 MG CAPS 2 po BID x 10 days AMOXICILLIN 500 MG CAPS 916205 AMOXICILLIN Inactive AUGMENTIN 875-125 MG TAB 1 tab by mouth twice daily with food AUGMENTIN 875-125 MG TAB 211578 AMOXICILLIN-POT CLAVULANATE Inactive LEVAQUIN 500 MG TABS 1 pill by mouth daily LEVAQUIN 500 MG TABS 496064 LEVOFLOXACIN Inactive Advance Directives Directive Description Start Date PERMISSION TO SHARE Immunizations Vaccine Administration Date Value Standard Description Seasonal influenza vaccine, injectable, preservative free, for > 3 years old ( Afluria, FluLaval, Fluzone, Fluvirin, Fluarix, Agriflu(>=18 yo)) Fluzone preservative free (>=3 yrs.) [HTM300] Influenza, seasonal, injectable, preservative free Adacel (Tetanus, reduced Diphtheria, and acellular Pertussis Immunization) Adacel [RGI506] tetanus toxoid, reduced diphtheria toxoid, and acellular [...] Range Description blood pressure, diastolic - 8462-4 82 mm[Hg] [...] E&M - 3141-9 222 [lb_av] Weight Measured Diagnostic Results Date Name [...] platelet count 244 10*3/mm3 Lab Report: CBC W/ DIFF - Hematology leukocyte count, blood 8.5 10*3/mm3 hemoglobin, blood 15.9 g/dL platelet count 12.1 10*3/mm3 Lab Report: CBC W/DIFF, Comp. Metabolic Panel, Thyroid Stimulating Hormo ... - Chemistry protein, total urine random Negative mg/dL Negative RBC, urine, dipstick Negative Negative sodium, serum 139 mmol/L 067-154 9184/07/18 potassium, serum 4.5 mmol/L 3.5-5.2 chloride, serum [...] % 11.6-14.8 platelet count 210 10^3/MM^3 10*3/mm3 444-485 6548/07/18 erythrocyte (RBC) count 4.95 10^6/MM^3 10*6/mm3 4.69-6.13 [...] Negative Encounters Code Encounter Date Provider Facility CPT-81159 Level 3 Est. Patient 14:30:47 FEATHER SHAPER Hector Love MD [facility] CPT-78645 Level 3 Est. Patient 14:50:45 CDT Hector Love MD [facility] CPT-08128 Level 3 Est. Patient 21:17:30 CDT Jen Crystal MD PhD [facility] CPT-48300 Level 3 Est. Patient 09:32:55 CDT Hector Love MD [facility] CPT-48489 Level 3 Est. Patient 15:11:08 [employer]ATHER [employer]ER Иван Mooney MD [facility] CPT-84206 Level 3 Est. Patient 16:38:53 FEATHER [employer]APER Hector Love MD [facility] CPT-56594 Level 3 Est. Patient 15:46:05 CDT Hector Love MD [facility] CPT-04010 Level 3 Est. Patient 13:59:39 CDT Hector Love MD [facility] CPT-95060 Level 3 Est. Patient 14:44:46 FEATHER SHAPER Hector Love MD [facility]-98627 Level 3 Est. Patient 17:12:27 CDT Hector Love MD [facility] CPT-60615 Level 3 Est. Patient 15:30:32 CDT Hector Love MD [facility] CPT-68383 Level 3 Est. Patient 14:24:52 CDT Иван Mooney MD [facility] CPT-27487 Level 3 Est. Patient 14:08:38 FEATHER [employer]ER Hector Love MD [facility] Procedures Code Procedure Name Date Entry Date Standard Description CPT-06565 Immunization Single Admin 16:11:28 FEATHER SHAPER CPT-77538 Fluzone Quadrivalent Intramuscular Suspension 0.5 ML 16: 11:28 FEATHER [employer]ER CPT-80230 Administration single or combination vaccine inc oral 13 :57:23 CDT CPT-50284 Menactra Intramuscular Injectable 13:57:23 CDT CPT-38761 First Vx Component - Ix admin via ID IM or jet inj without physician counseling 16:42:17 FEATHER SHAPER CPT-92872 Fluzone preservative free (>=3 yrs.) 16:42:17 FEATHER SHAPER 06/03 CPT-59620 Venipuncture Draw Fee 16:29:01 CDT CPT-80859 Chest 2V Frontal and Lat 16:23:56 CDT CPT-22269 Administration single or combination vaccine inc oral 13 :39:17 FEATHER SHAPER CPT-55718 Tdap 13:39:17 FEATHER SHAPER
--- OUTSIDE RECORDS SUMMARY | 2017-12-24 18:32 | XMS REPORT | Clinical Summary ---
Author Author Admin, LAMBERT Organization [facility] Address Unknown Phone Unavailable Allergies, Adverse [...] 1 po q6hr PRN Nausea ONDANSETRON HCL [id number] Active Hector Love MD Active AUGMENTIN 875-125 MG TAB 1 tab by mouth twice daily with food AMOXICILLIN-POT CLAVULANATE 68116414152 No Longer Active Hector Love MD Active FLONASE 50 MCG/ACT SUSP 2 puffs in each nostril daily PRN Allergies FLUTICASONE PROPIONATE 38732828933 Active Hector Love MD Active LEVAQUIN 500 MG TABS 1 pill by mouth daily LEVOFLOXACIN 02543978851 No Longer Active Jen Crystal MD PhD Active LISINOPRIL 5 MG TABS 1.5 tab qd LISINOPRIL 25906643451 Active Jen Crystal MD PhD Active KETOCONAZOLE 2 % CREA apply twice a day to rash KETOCONAZOLE 13834500347 No Longer Active Hector Love MD Active AUGMENTIN 875-125 MG TAB 1 tab by mouth twice daily with food AMOXICILLIN-POT CLAVULANATE 13311341704 No Longer Active Иван Mooney MD Active LOTRISONE 0.05-1 % CREAM Apply twice a day to affected area 07/19 CLOTRIMAZOLE-BETAMETHASONE 80403099642 No Longer Active Иван Mooney MD Active PROGRAF 1 MG CAPS 4 tabs po bid TACROLIMUS 87345532962 Active Hector Love MD Active FEXOFENADINE HCL 180 MG TABS 1 Daily FEXOFENADINE HCL 07716690327 No Longer Active Hector Love MD Active PROGRAF 0.5 MG CAPS Take one by mouth daily with 1 mg TACROLIMUS 84853343443 No Longer Active Hector Love MD Active AMOXICILLIN 500 MG CAPS 2 po BID x 10 days AMOXICILLIN 27716778620 No Longer Active Hector Love MD Active RAPAMUNE 1 MG TABS 3 tabs in the am SIROLIMUS 39450975493 No Longer Active Hector Love MD Active AMOXICILLIN 500 MG CAPS 2 po BID x 10 days AMOXICILLIN 81738158154 No Longer Active Hector Love MD Active LORTAB 5 5-500 MG TABS 1/2 to 1 tablet by mouth every 4 hours as needed for pain HYDROCODONE-ACETAMINOPHEN 35784353773 No Longer Active Hector Love MD Active FLUTICASONE PROPIONATE 50 MCG/ACT SUSP INSTILL 2 SPRAYS IN EACH NOSTRIL Q D FLUTICASONE PROPIONATE 86745384173 No Longer Active Hector Love MD Active PROGRAF 1 MG CAPS 1 po bid TACROLIMUS 61293380052 No Longer Active Hector Love MD Active AMOXICILLIN 875 MG TABS 1 tab by mouth twice daily AMOXICILLIN 02653240172 No Longer Active Hector Love MD Active AMOXICILLIN 500 MG CAPS 2 po BID x 10 days AMOXICILLIN 49461089761 No Longer Active Hector Love MD Active AUGMENTIN 875-125 MG TAB 1 tab by mouth twice daily with food AMOXICILLIN-POT CLAVULANATE 57185907756 No Longer Active Hector Love MD Active AZITHROMYCIN 250 MG TABS 2 po qd x 1 day, then 1 po qd x 4 days AZITHROMYCIN 63866836948 No Longer Active Hector Love MD Active CETIRIZINE HCL 10 MG TABS 1 PO Q D CETIRIZINE HCL 19797277907 No Longer Active [place] Active PROGRAF 1 MG CAPS 1 po bid PROGRAF 1 MG CAPS 785139 TACROLIMUS Inactive FLUTICASONE PROPIONATE 50 MCG/ACT SUSP INSTILL 2 SPRAYS IN EACH NOSTRIL Q D FLUTICASONE PROPIONATE 50 MCG/ACT SUSP 931874 FLUTICASONE PROPIONATE Inactive LORTAB 5 5-500 MG TABS 1/2 to 1 tablet by mouth every 4 hours as needed for pain LORTAB 5 5-500 MG TABS HYDROCODONE- ACETAMINOPHEN Inactive RAPAMUNE 1 MG TABS 3 tabs in the am RAPAMUNE 1 MG TABS 113865 SIROLIMUS Inactive PROGRAF 0.5 MG CAPS Take one by mouth daily with 1 mg PROGRAF 0.5 MG CAPS 458287 TACROLIMUS Inactive FEXOFENADINE HCL 180 MG TABS 1 Daily FEXOFENADINE HCL 180 MG TABS 081112 FEXOFENADINE HCL Inactive LOTRISONE 0.05-1 % CREAM Apply twice a day to affected area 07/19 LOTRISONE 0.05-1 % CREAM 951962 CLOTRIMAZOLE-BETAMETHASONE Inactive KETOCONAZOLE 2 % CREA apply twice a day to rash KETOCONAZOLE 2 % CREA 322711 KETOCONAZOLE Inactive AUGMENTIN 875-125 MG TAB 1 tab by mouth twice daily with food AUGMENTIN 875-125 MG TAB 340002 AMOXICILLIN-POT CLAVULANATE Inactive AMOXICILLIN 500 MG CAPS 2 po BID x 10 days AMOXICILLIN 500 MG CAPS 972570 AMOXICILLIN Inactive AMOXICILLIN 875 MG TABS 1 tab by mouth twice daily AMOXICILLIN 875 MG TABS 566762 AMOXICILLIN Inactive AMOXICILLIN 500 MG CAPS 2 po BID x 10 days AMOXICILLIN 500 MG CAPS 328489 AMOXICILLIN Inactive AMOXICILLIN 500 MG CAPS 2 po BID x 10 days AMOXICILLIN 500 MG CAPS 939686 AMOXICILLIN Inactive AUGMENTIN 875-125 MG TAB 1 tab by mouth twice daily with food AUGMENTIN 875-125 MG TAB 631480 AMOXICILLIN-POT CLAVULANATE Inactive LEVAQUIN 500 MG TABS 1 pill by mouth daily LEVAQUIN 500 MG TABS 184363 LEVOFLOXACIN Inactive Advance Directives Directive Description Start Date PERMISSION TO SHARE Immunizations Vaccine Administration Date Value Standard Description Seasonal influenza vaccine, injectable, preservative free, for > 3 years old ( Afluria, FluLaval, Fluzone, Fluvirin, Fluarix, Agriflu(>=18 yo)) Fluzone preservative free (>=3 yrs.) [[id number]] Influenza, seasonal, injectable, preservative free Adacel (Tetanus, reduced Diphtheria, and acellular Pertussis Immunization) Adacel [[id number]] tetanus toxoid, reduced diphtheria toxoid, and acellular [...] dipstick Negative Negative sodium, serum 139 mmol/L 566-879 0332/07/18 potassium, serum 4.5 mmol/L 3.5-5.2 chloride, serum [...] Panel, Thyroid Stimulating Hormo ... - Hematology erythrocyte (RBC) count 4.95 10^6/MM^3 10*6/mm3 4.69-6.13 lymphocytes as percent of blood leukocytes 40.5 % 20.5-51.1 monocytes as percent of blood leukocytes 9.6 % 1.7-9.3 neutrophils as percent of blood leukocytes 46.5 % 42.2-75.2 leukocyte count, blood 7.6 10^3/MM^3 10*3/mm3 4.6-10.2 hemoglobin, blood 14.9 g/dL 13.5-17.5 hematocrit, blood [...] EBV, Myco Pneumo, RapidStrep Rflx/Cx - Hematology neutrophils as percent of blood leukocytes 66.3 [...] % 11.6-14.8 platelet count 235 10^3/MM^3 10*3/mm3 152-340 7870/09/02 leukocyte count, blood 16.1 10^3/MM^3 10*3/mm3 4.6-10.2 Lab Report: CBC W/DIFF, MONO w/Rflx EBV, Myco Pneumo, RapidStrep Rflx/Cx - Lab Microbial identification kit, rapid strep method Negative-Throat Culture to Follow Negative Encounters Code Encounter Date Provider Facility CPT-32768 Level 3 Est. Patient 14:30:47 AUTOMOTIVE SERVICES MANAGER Hector Love MD [facility] CPT-80839 Level 3 Est. Patient 14:50:45 CDT Hector Love MD [facility] CPT-93867 Level 3 Est. Patient 21:17:30 CDT Jen Crystal MD PhD [facility] CPT-99684 Level 3 Est. Patient 09:32:55 CDT Hector Love MD [facility] CPT-33889 Level 3 Est. Patient 15:11:08 AUTOMOTIVE SERVICES MANAGER Иван Mooney MD [facility] CPT-72841 Level 3 Est. Patient 16:38:53 AUTOMOTIVE SERVICES MANAGER Hector Love MD [facility] CPT-13064 Level 3 Est. Patient 15:46:05 CDT Hector Love MD [facility] CPT-56211 Level 3 Est. Patient 13:59:39 CDT Hector Love MD [facility] CPT-83517 Level 3 Est. Patient 14:44:46 AUTOMOTIVE SERVICES MANAGER Hector Love MD [facility] CPT-17410 Level 3 Est. Patient 17:12:27 CDT Hector Love MD [facility] CPT-15670 Level 3 Est. Patient 15:30:32 CDT Hector Love MD [facility] CPT-75069 Level 3 Est. Patient 14:24:52 CDT Иван Mooney MD [facility] CPT-90702 Level 3 Est. Patient 14:08:38 AUTOMOTIVE SERVICES MANAGER Hector Love MD [facility] Procedures Code Procedure Name Date Entry Date Standard Description CPT-48388 Immunization Single Admin 16:11:28 AUTOMOTIVE SERVICES MANAGER CPT-00166 Fluzone Quadrivalent Intramuscular Suspension 0.5 ML 16: 11:28 AUTOMOTIVE SERVICES MANAGER CPT-44935 Administration single or combination vaccine inc oral 13 :57:23 CDT CPT-06084 Menactra Intramuscular Injectable 13:57:23 CDT CPT-47211 First Vx Component - Ix admin via ID IM or jet inj without physician counseling 16:42:17 AUTOMOTIVE SERVICES MANAGER CPT-01541 Fluzone preservative free (>=3 yrs.) 16:42:17 AUTOMOTIVE SERVICES MANAGER 06/03 CPT-50289 Venipuncture Draw Fee 16:29:01 CDT CPT-32820 Chest 2V Frontal and Lat 16:23:56 CDT CPT-80139 Administration single or combination vaccine inc oral 13 :39:17 AUTOMOTIVE SERVICES MANAGER CPT-35880 Tdap 13:39:17 AUTOMOTIVE SERVICES MANAGER
--- OUTSIDE RECORDS SUMMARY | 2017-12-24 18:33 | XMS REPORT | Clinical Summary ---
Author Author Admin, LAMBERT Organization [facility] Address Unknown Phone Unavailable [...] 1 po q6hr PRN Nausea ONDANSETRON HCL 60307228946 Active Hector Love MD Active AUGMENTIN 875-125 MG TAB 1 tab by mouth twice daily with food AMOXICILLIN-POT CLAVULANATE 24677798872 No Longer Active Hector Love MD Active FLONASE 50 MCG/ACT SUSP 2 puffs in each nostril daily PRN Allergies FLUTICASONE PROPIONATE 19311551143 Active Hector Love MD Active LEVAQUIN 500 MG TABS 1 pill by mouth daily LEVOFLOXACIN 81502283810 No Longer Active Jen Crystal MD PhD Active LISINOPRIL 5 MG TABS 1.5 tab qd LISINOPRIL 70941146896 Active Jen Crystal MD PhD Active KETOCONAZOLE 2 % CREA apply twice a day to rash KETOCONAZOLE 19884031265 No Longer Active Hector Love MD Active AUGMENTIN 875-125 MG TAB 1 tab by mouth twice daily with food AMOXICILLIN-POT CLAVULANATE 64930730964 No Longer Active Иван Mooney MD Active LOTRISONE 0.05-1 % CREAM Apply twice a day to affected area 07/19 CLOTRIMAZOLE-BETAMETHASONE 89181206920 No Longer Active Иван Mooney MD Active PROGRAF 1 MG CAPS 4 tabs po bid TACROLIMUS 33472277009 Active Hector Love MD Active FEXOFENADINE HCL 180 MG TABS 1 Daily FEXOFENADINE HCL 32119766051 No Longer Active Hector Love MD Active PROGRAF 0.5 MG CAPS Take one by mouth daily with 1 mg TACROLIMUS 09329687270 No Longer Active Hector Love MD Active AMOXICILLIN 500 MG CAPS 2 po BID x 10 days AMOXICILLIN 23441909634 No Longer Active Hector Love MD Active RAPAMUNE 1 MG TABS 3 tabs in the am SIROLIMUS 27654554709 No Longer Active Hector Love MD Active AMOXICILLIN 500 MG CAPS 2 po BID x 10 days AMOXICILLIN 01389092874 No Longer Active Hector Love MD Active LORTAB 5 5-500 MG TABS 1/2 to 1 tablet by mouth every 4 hours as needed for pain HYDROCODONE-ACETAMINOPHEN 92037530247 No Longer Active Hector Love MD Active FLUTICASONE PROPIONATE 50 MCG/ACT SUSP INSTILL 2 SPRAYS IN EACH NOSTRIL Q D FLUTICASONE PROPIONATE 79923024359 No Longer Active Hector Love MD Active PROGRAF 1 MG CAPS 1 po bid TACROLIMUS 55904365119 No Longer Active Hector Love MD Active AMOXICILLIN 875 MG TABS 1 tab by mouth twice daily AMOXICILLIN 55431878309 No Longer Active Hector Love MD Active AMOXICILLIN 500 MG CAPS 2 po BID x 10 days AMOXICILLIN 32387700658 No Longer Active Hector Love MD Active AUGMENTIN 875-125 MG TAB 1 tab by mouth twice daily with food AMOXICILLIN-POT CLAVULANATE 51265341096 No Longer Active Hector Love MD Active AZITHROMYCIN 250 MG TABS 2 po qd x 1 day, then 1 po qd x 4 days AZITHROMYCIN 32921639030 No Longer Active Hector Love MD Active CETIRIZINE HCL 10 MG TABS 1 PO Q D CETIRIZINE HCL 16306811386 No Longer Active [place] Active PROGRAF 1 MG CAPS 1 po bid PROGRAF 1 MG CAPS 208230 TACROLIMUS Inactive FLUTICASONE PROPIONATE 50 MCG/ACT SUSP INSTILL 2 SPRAYS IN EACH NOSTRIL Q D FLUTICASONE PROPIONATE 50 MCG/ACT SUSP 129643 FLUTICASONE PROPIONATE Inactive LORTAB 5 5-500 MG TABS 1/2 to 1 tablet by mouth every 4 hours as needed for pain LORTAB 5 5-500 MG TABS HYDROCODONE- ACETAMINOPHEN Inactive RAPAMUNE 1 MG TABS 3 tabs in the am RAPAMUNE 1 MG TABS 300614 SIROLIMUS Inactive PROGRAF 0.5 MG CAPS Take one by mouth daily with 1 mg PROGRAF 0.5 MG CAPS 471564 TACROLIMUS Inactive FEXOFENADINE HCL 180 MG TABS 1 Daily FEXOFENADINE HCL 180 MG TABS 025970 FEXOFENADINE HCL Inactive LOTRISONE 0.05-1 % CREAM Apply twice a day to affected area 07/19 LOTRISONE 0.05-1 % CREAM 633209 CLOTRIMAZOLE-BETAMETHASONE Inactive KETOCONAZOLE 2 % CREA apply twice a day to rash KETOCONAZOLE 2 % CREA 133876 KETOCONAZOLE Inactive AUGMENTIN 875-125 MG TAB 1 tab by mouth twice daily with food AUGMENTIN 875-125 MG TAB 535354 AMOXICILLIN-POT CLAVULANATE Inactive AMOXICILLIN 500 MG CAPS 2 po BID x 10 days AMOXICILLIN 500 MG CAPS 252339 AMOXICILLIN Inactive AMOXICILLIN 875 MG TABS 1 tab by mouth twice daily AMOXICILLIN 875 MG TABS 082143 AMOXICILLIN Inactive AMOXICILLIN 500 MG CAPS 2 po BID x 10 days AMOXICILLIN 500 MG CAPS 129374 AMOXICILLIN Inactive AMOXICILLIN 500 MG CAPS 2 po BID x 10 days AMOXICILLIN 500 MG CAPS 271684 AMOXICILLIN Inactive AUGMENTIN 875-125 MG TAB 1 tab by mouth twice daily with food AUGMENTIN 875-125 MG TAB 123861 AMOXICILLIN-POT CLAVULANATE Inactive LEVAQUIN 500 MG TABS 1 pill by mouth daily LEVAQUIN 500 MG TABS 230575 LEVOFLOXACIN Inactive Advance Directives Directive Description Start Date PERMISSION TO SHARE Immunizations Vaccine Administration Date Value Standard Description Seasonal influenza vaccine, injectable, preservative free, for > 3 years old ( Afluria, FluLaval, Fluzone, Fluvirin, Fluarix, Agriflu(>=18 yo)) Fluzone preservative free (>=3 yrs.) [[id number]] Influenza, seasonal, injectable, preservative free Adacel (Tetanus, reduced Diphtheria, and acellular Pertussis Immunization) Adacel [[id number]] tetanus toxoid, reduced diphtheria toxoid, and acellular [...] Negative mg/dL Negative sodium, serum 139 mmol/L 410-500 5889/07/18 potassium, serum 4.5 mmol/L 3.5-5.2 chloride, serum [...] Negative Encounters Code Encounter Date Provider Facility CPT-50784 Level 3 Est. Patient 14:30:47 SURVEILLANCE SENSOR OPERATOR Hector Love MD [facility] CPT-83046 Level 3 Est. Patient 14:50:45 CDT Hector Love MD [facility] CPT-83658 Level 3 Est. Patient 21:17:30 CDT Jen Crystal MD PhD [facility] CPT-90926 Level 3 Est. Patient 09:32:55 CDT Hector Love MD [facility] CPT-14982 Level 3 Est. Patient 15:11:08 SURVEILLANCE SENSOR OPERATOR Иван Mooney MD [facility] CPT-29795 Level 3 Est. Patient 16:38:53 SURVEILLANCE SENSOR OPERATOR Hector Love MD [facility] CPT-77061 Level 3 Est. Patient 15:46:05 CDT Hector Love MD [facility] CPT-69901 Level 3 Est. Patient 13:59:39 CDT Hector Love MD [facility] CPT-57044 Level 3 Est. Patient 14:44:46 SURVEILLANCE SENSOR OPERATOR Hector Love MD [facility]-74659 Level 3 Est. Patient 17:12:27 CDT Hector Love MD [facility] CPT-48656 Level 3 Est. Patient 15:30:32 CDT Hector Love MD [facility] CPT-07674 Level 3 Est. Patient 14:24:52 CDT Иван Mooney MD [facility] CPT-74712 Level 3 Est. Patient 14:08:38 SURVEILLANCE SENSOR OPERATOR Hector Love MD [facility] Procedures Code Procedure Name Date Entry Date Standard Description CPT-29536 Immunization Single Admin 16:11:28 SURVEILLANCE SENSOR OPERATOR CPT-26174 Fluzone Quadrivalent Intramuscular Suspension 0.5 ML 16: 11:28 SURVEILLANCE SENSOR OPERATOR CPT-54966 Administration single or combination vaccine inc oral 13 :57:23 CDT CPT-72535 Menactra Intramuscular Injectable 13:57:23 CDT CPT-60843 First Vx Component - Ix admin via ID IM or jet inj without physician counseling 16:42:17 SURVEILLANCE SENSOR OPERATOR CPT-87585 Fluzone preservative free (>=3 yrs.) 16:42:17 SURVEILLANCE SENSOR OPERATOR 06/03 CPT-11769 Venipuncture Draw Fee 16:29:01 CDT CPT-18267 Chest 2V Frontal and Lat 16:23:56 CDT CPT-63615 Administration single or combination vaccine inc oral 13 :39:17 SURVEILLANCE SENSOR OPERATOR CPT-81666 Tdap 13:39:17 SURVEILLANCE SENSOR OPERATOR
--- OUTSIDE RECORDS SUMMARY | 2017-12-24 18:33 | XMS REPORT | Clinical Summary ---
Author Author Admin, LAMBERT Organization [facility] Address Unknown Phone Unavailable Allergies, Adverse [...] each nostril daily PRN Allergies FLUTICASONE PROPIONATE 10942490186 Active Hector Love MD Active AUGMENTIN 875-125 MG TAB 1 tab by mouth twice daily with food AMOXICILLIN-POT CLAVULANATE 56186095799 Active Hector Love MD Active LEVAQUIN 500 MG TABS 1 pill by mouth daily LEVOFLOXACIN 26599696046 No Longer Active Jen Crystal MD PhD Active LISINOPRIL 5 MG TABS 1.5 tab qd LISINOPRIL 09577075317 Active Jen Crystal MD PhD Active KETOCONAZOLE 2 % CREA apply twice a day to rash KETOCONAZOLE 67447796833 No Longer Active Hector Love MD Active AUGMENTIN 875-125 MG TAB 1 tab by mouth twice daily with food AMOXICILLIN-POT CLAVULANATE 98028092185 No Longer Active Иван Mooney MD Active LOTRISONE 0.05-1 % CREAM Apply twice a day to affected area 07/19 CLOTRIMAZOLE-BETAMETHASONE 24976989121 No Longer Active Иван Mooney MD Active PROGRAF 1 MG CAPS 4 tabs po bid TACROLIMUS 10237943278 Active Hector Love MD Active FEXOFENADINE HCL 180 MG TABS 1 Daily FEXOFENADINE HCL 36118838610 No Longer Active Hector Love MD Active PROGRAF 0.5 MG CAPS Take one by mouth daily with 1 mg TACROLIMUS 98736010945 No Longer Active Hector Love MD Active AMOXICILLIN 500 MG CAPS 2 po BID x 10 days AMOXICILLIN 27214969444 No Longer Active Hector Love MD Active RAPAMUNE 1 MG TABS 3 tabs in the am SIROLIMUS 56015137113 No Longer Active Hector Love MD Active AMOXICILLIN 500 MG CAPS 2 po BID x 10 days AMOXICILLIN 31724322263 No Longer Active Hector Love MD Active LORTAB 5 5-500 MG TABS 1/2 to 1 tablet by mouth every 4 hours as needed for pain HYDROCODONE-ACETAMINOPHEN 50888898432 No Longer Active Hector Love MD Active FLUTICASONE PROPIONATE 50 MCG/ACT SUSP INSTILL 2 SPRAYS IN EACH NOSTRIL Q D FLUTICASONE PROPIONATE 31038236945 No Longer Active Hector Love MD Active PROGRAF 1 MG CAPS 1 po bid TACROLIMUS 79701116599 No Longer Active Hector Love MD Active AMOXICILLIN 875 MG TABS 1 tab by mouth twice daily AMOXICILLIN 44910489600 No Longer Active Hector Love MD Active AMOXICILLIN 500 MG CAPS 2 po BID x 10 days AMOXICILLIN 92874506987 No Longer Active Hector Love MD Active AUGMENTIN 875-125 MG TAB 1 tab by mouth twice daily with food AMOXICILLIN-POT CLAVULANATE 93238763098 No Longer Active Hector Love MD Active AZITHROMYCIN 250 MG TABS 2 po qd x 1 day, then 1 po qd x 4 days AZITHROMYCIN 59943523093 No Longer Active Hector Love MD Active CETIRIZINE HCL 10 MG TABS 1 PO Q D CETIRIZINE HCL 51936112437 No Longer Active [place] Active PROGRAF 1 MG CAPS 1 po bid PROGRAF 1 MG CAPS 374308 TACROLIMUS Inactive FLUTICASONE PROPIONATE 50 MCG/ACT SUSP INSTILL 2 SPRAYS IN EACH NOSTRIL Q D FLUTICASONE PROPIONATE 50 MCG/ACT SUSP 699217 FLUTICASONE PROPIONATE Inactive LORTAB 5 5-500 MG TABS 1/2 to 1 tablet by mouth every 4 hours as needed for pain LORTAB 5 5-500 MG TABS HYDROCODONE- ACETAMINOPHEN Inactive RAPAMUNE 1 MG TABS 3 tabs in the am RAPAMUNE 1 MG TABS 230118 SIROLIMUS Inactive PROGRAF 0.5 MG CAPS Take one by mouth daily with 1 mg PROGRAF 0.5 MG CAPS 695832 TACROLIMUS Inactive FEXOFENADINE HCL 180 MG TABS 1 Daily FEXOFENADINE HCL 180 MG TABS 140919 FEXOFENADINE HCL Inactive LOTRISONE 0.05-1 % CREAM Apply twice a day to affected area 07/19 LOTRISONE 0.05-1 % CREAM 323969 CLOTRIMAZOLE-BETAMETHASONE Inactive KETOCONAZOLE 2 % CREA apply twice a day to rash KETOCONAZOLE 2 % CREA 158462 KETOCONAZOLE Inactive AMOXICILLIN 500 MG CAPS 2 po BID x 10 days AMOXICILLIN 500 MG CAPS 931781 AMOXICILLIN Inactive AMOXICILLIN 875 MG TABS 1 tab by mouth twice daily AMOXICILLIN 875 MG TABS 662116 AMOXICILLIN Inactive AMOXICILLIN 500 MG CAPS 2 po BID x 10 days AMOXICILLIN 500 MG CAPS 624023 AMOXICILLIN Inactive AMOXICILLIN 500 MG CAPS 2 po BID x 10 days AMOXICILLIN 500 MG CAPS 576922 AMOXICILLIN Inactive AUGMENTIN 875-125 MG TAB 1 tab by mouth twice daily with food AUGMENTIN 875-125 MG TAB 825156 AMOXICILLIN-POT CLAVULANATE Inactive LEVAQUIN 500 MG TABS 1 pill by mouth daily LEVAQUIN 500 MG TABS 807154 LEVOFLOXACIN Inactive Advance Directives Directive Description Start Date PERMISSION TO SHARE Immunizations Vaccine Administration Date Value Standard Description Seasonal influenza vaccine, injectable, preservative free, for > 3 years old ( Afluria, FluLaval, Fluzone, Fluvirin, Fluarix, Agriflu(>=18 yo)) Fluzone preservative free (>=3 yrs.) [[id number]] Influenza, seasonal, injectable, preservative free Adacel (Tetanus, reduced Diphtheria, and acellular Pertussis Immunization) Adacel [[id number]] tetanus toxoid, reduced diphtheria toxoid, and acellular [...] dipstick Negative Negative sodium, serum 139 mmol/L 633-119 4689/07/18 potassium, serum 4.5 mmol/L 3.5-5.2 chloride, serum [...] % 11.6-14.8 platelet count 210 10^3/MM^3 10*3/mm3 141-871 0661/07/18 erythrocyte (RBC) count 4.95 10^6/MM^3 10*6/mm3 4.69-6.13 [...] leukocyte count, blood 16.1 10^3/MM^3 10*3/mm3 4.6-10.2 hematocrit, blood 45.0 % 41.0-53.0 mean corpuscular volume, RBC 90 fL 80-97 mean corpuscular hemoglobin, RBC 30.5 pg 27.0-31.2 mean corpuscular hemoglobin concentration, RBC 33.9 G/DL % 31.8- 35.4 red blood cell distribution width 14.3 % 11.6-14.8 platelet count 235 10^3/MM^3 10*3/mm3 977-375 1808/09/02 neutrophils as percent of blood leukocytes 66.3 [...] Negative Encounters Code Encounter Date Provider Facility CPT-07388 Level 3 Est. Patient 14:50:45 CDT Hector Love MD [facility] CPT-96076 Level 3 Est. Patient 21:17:30 CDT Jen Crystal MD PhD [facility] CPT-88321 Level 3 Est. Patient 09:32:55 CDT Hector Love MD [facility] CPT-94990 Level 3 Est. Patient 15:11:08 MUD MILL TENDER Иван Mooney MD [facility] CPT-94176 Level 3 Est. Patient 16:38:53 MUD MILL TENDER Hector Love MD [facility] CPT-11260 Level 3 Est. Patient 15:46:05 CDT Hector Love MD [facility] CPT-38844 Level 3 Est. Patient 13:59:39 CDT Hector Love MD [facility] CPT-26530 Level 3 Est. Patient 14:44:46 MUD MILL TENDER Hector Love MD [facility] CPT-48382 Level 3 Est. Patient 17:12:27 CDT Hector Love MD [facility] CPT-37203 Level 3 Est. Patient 15:30:32 CDT Hector Love MD [facility] CPT-97584 Level 3 Est. Patient 14:24:52 CDT Иван Mooney MD [facility] CPT-91813 Level 3 Est. Patient 14:08:38 MUD MILL TENDER Hector Love MD [facility] Procedures Code Procedure Name Date Entry Date Standard Description CPT-50562 Immunization Single Admin 16:11:28 MUD MILL TENDER CPT-80895 Fluzone Quadrivalent Intramuscular Suspension 0.5 ML 16: 11:28 MUD MILL TENDER CPT-68090 Administration single or combination vaccine inc oral 13 :57:23 CDT CPT-79835 Menactra Intramuscular Injectable 13:57:23 CDT CPT-43074 First Vx Component - Ix admin via ID IM or jet inj without physician counseling 16:42:17 MUD MILL TENDER CPT-31839 Fluzone preservative free (>=3 yrs.) 16:42:17 MUD MILL TENDER 06/03 CPT-08585 Venipuncture Draw Fee 16:29:01 CDT CPT-97633 Chest 2V Frontal and Lat 16:23:56 CDT CPT-69505 Administration single or combination vaccine inc oral 13 :39:17 MUD MILL TENDER CPT-25718 Tdap 13:39:17 MUD MILL TENDER
--- OUTSIDE RECORDS SUMMARY | 2017-12-24 18:34 | XMS REPORT | Clinical Summary ---
Author Author Admin, LAMBERT Organization [facility] Address Unknown Phone Unavailable Allergies, Adverse Reactions, [...] 1 po q6hr PRN Nausea ONDANSETRON HCL [id number] Active Hector Love MD Active AUGMENTIN 875-125 MG TAB 1 tab by mouth twice daily with food AMOXICILLIN-POT CLAVULANATE 73591304184 No Longer Active Hector Love MD Active FLONASE 50 MCG/ACT SUSP 2 puffs in each nostril daily PRN Allergies FLUTICASONE PROPIONATE 03852236096 Active Hector Love MD Active LEVAQUIN 500 MG TABS 1 pill by mouth daily LEVOFLOXACIN 61697830223 No Longer Active Jen Crytsal MD PhD Active LISINOPRIL 5 MG TABS 1.5 tab qd LISINOPRIL 41083341591 Active Jen Crystal MD PhD Active KETOCONAZOLE 2 % CREA apply twice a day to rash KETOCONAZOLE 12640606864 No Longer Active Hector Love MD Active AUGMENTIN 875-125 MG TAB 1 tab by mouth twice daily with food AMOXICILLIN-POT CLAVULANATE 20301560053 No Longer Active Иван Mooney MD Active LOTRISONE 0.05-1 % CREAM Apply twice a day to affected area 07/19 CLOTRIMAZOLE-BETAMETHASONE 79160379874 No Longer Active Иван Mooney MD Active PROGRAF 1 MG CAPS 4 tabs po bid TACROLIMUS 37984579854 Active Hector Love MD Active FEXOFENADINE HCL 180 MG TABS 1 Daily FEXOFENADINE HCL 72753906225 No Longer Active Hector Love MD Active PROGRAF 0.5 MG CAPS Take one by mouth daily with 1 mg TACROLIMUS 88225982071 No Longer Active Hector Love MD Active AMOXICILLIN 500 MG CAPS 2 po BID x 10 days AMOXICILLIN 93326742437 No Longer Active Hector Love MD Active RAPAMUNE 1 MG TABS 3 tabs in the am SIROLIMUS 33028245601 No Longer Active Hector Love MD Active AMOXICILLIN 500 MG CAPS 2 po BID x 10 days AMOXICILLIN 14440645570 No Longer Active Hector Love MD Active LORTAB 5 5-500 MG TABS 1/2 to 1 tablet by mouth every 4 hours as needed for pain HYDROCODONE-ACETAMINOPHEN 10773342084 No Longer Active Hector Love MD Active FLUTICASONE PROPIONATE 50 MCG/ACT SUSP INSTILL 2 SPRAYS IN EACH NOSTRIL Q D FLUTICASONE PROPIONATE 38247617682 No Longer Active Hector Love MD Active PROGRAF 1 MG CAPS 1 po bid TACROLIMUS 43130186243 No Longer Active Hector Love MD Active AMOXICILLIN 875 MG TABS 1 tab by mouth twice daily AMOXICILLIN 66474577550 No Longer Active Hector Love MD Active AMOXICILLIN 500 MG CAPS 2 po BID x 10 days AMOXICILLIN 86544769939 No Longer Active Hector Love MD Active AUGMENTIN 875-125 MG TAB 1 tab by mouth twice daily with food AMOXICILLIN-POT CLAVULANATE 37433798844 No Longer Active Hector Love MD Active AZITHROMYCIN 250 MG TABS 2 po qd x 1 day, then 1 po qd x 4 days AZITHROMYCIN 67330821876 No Longer Active Hector Love MD Active CETIRIZINE HCL 10 MG TABS 1 PO Q D CETIRIZINE HCL 36025588293 No Longer Active [place]anger Active PROGRAF 1 MG CAPS 1 po bid PROGRAF 1 MG CAPS 712466 TACROLIMUS Inactive FLUTICASONE PROPIONATE 50 MCG/ACT SUSP INSTILL 2 SPRAYS IN EACH NOSTRIL Q D FLUTICASONE PROPIONATE 50 MCG/ACT SUSP 668216 FLUTICASONE PROPIONATE Inactive LORTAB 5 5-500 MG TABS 1/2 to 1 tablet by mouth every 4 hours as needed for pain LORTAB 5 5-500 MG TABS HYDROCODONE- ACETAMINOPHEN Inactive RAPAMUNE 1 MG TABS 3 tabs in the am RAPAMUNE 1 MG TABS 139635 SIROLIMUS Inactive PROGRAF 0.5 MG CAPS Take one by mouth daily with 1 mg PROGRAF 0.5 MG CAPS 811552 TACROLIMUS Inactive FEXOFENADINE HCL 180 MG TABS 1 Daily FEXOFENADINE HCL 180 MG TABS 341825 FEXOFENADINE HCL Inactive LOTRISONE 0.05-1 % CREAM Apply twice a day to affected area 07/19 LOTRISONE 0.05-1 % CREAM 872618 CLOTRIMAZOLE-BETAMETHASONE Inactive KETOCONAZOLE 2 % CREA apply twice a day to rash KETOCONAZOLE 2 % CREA 653450 KETOCONAZOLE Inactive AUGMENTIN 875-125 MG TAB 1 tab by mouth twice daily with food AUGMENTIN 875-125 MG TAB 205863 AMOXICILLIN-POT CLAVULANATE Inactive AMOXICILLIN 500 MG CAPS 2 po BID x 10 days AMOXICILLIN 500 MG CAPS 853446 AMOXICILLIN Inactive AMOXICILLIN 875 MG TABS 1 tab by mouth twice daily AMOXICILLIN 875 MG TABS 330012 AMOXICILLIN Inactive AMOXICILLIN 500 MG CAPS 2 po BID x 10 days AMOXICILLIN 500 MG CAPS 539645 AMOXICILLIN Inactive AMOXICILLIN 500 MG CAPS 2 po BID x 10 days AMOXICILLIN 500 MG CAPS 507403 AMOXICILLIN Inactive AUGMENTIN 875-125 MG TAB 1 tab by mouth twice daily with food AUGMENTIN 875-125 MG TAB 720829 AMOXICILLIN-POT CLAVULANATE Inactive LEVAQUIN 500 MG TABS 1 pill by mouth daily LEVAQUIN 500 MG TABS 885056 LEVOFLOXACIN Inactive Advance Directives Directive Description Start Date PERMISSION TO SHARE Immunizations Vaccine Administration Date Value Standard Description Seasonal influenza vaccine, injectable, preservative free, for > 3 years old ( Afluria, FluLaval, Fluzone, Fluvirin, Fluarix, Agriflu(>=18 yo)) Fluzone preservative free (>=3 yrs.) [[id number]] Influenza, seasonal, injectable, preservative free Adacel (Tetanus, reduced Diphtheria, and acellular Pertussis Immunization) Adacel [FGH300] tetanus toxoid, reduced diphtheria toxoid, and acellular [...] Lab Report: CBC W/ DIFF - Hematology platelet count 12.1 10*3/mm3 hemoglobin, blood 15.9 g/dL leukocyte count, blood 8.5 10*3/mm3 Lab Report: CBC W/DIFF, Comp. Metabolic Panel, Thyroid Stimulating Hormo ... - Chemistry RBC, urine, dipstick Negative Negative protein, total urine random Negative mg/dL Negative sodium, serum 139 mmol/L 189-848 0355/07/18 potassium, serum 4.5 mmol/L 3.5-5.2 chloride, serum [...] 10*3/mm3 4.6-10.2 hematocrit, blood 44.1 % 41.0-53.0 hemoglobin, blood 14.9 g/dL 13.5-17.5 erythrocyte (RBC) count 4.95 10^6/MM^3 10*6/mm3 4.69-6.13 mean corpuscular volume, RBC 89 fL 80-97 mean corpuscular hemoglobin, RBC 30.1 pg 27.0-31.2 mean corpuscular hemoglobin concentration, RBC 33.8 G/DL % 31.8- 35.4 red blood cell distribution width 15.0 % 11.6-14.8 platelet count 210 10^3/MM^3 10*3/mm3 719-982 8740/07/18 lymphocytes as percent of blood leukocytes 40.5 % 20.5-51.1 monocytes as percent of blood leukocytes 9.6 % 1.7-9.3 Lab Report: CBC W/DIFF, Comp. Metabolic Panel, Thyroid Stimulating Hormo ... - Urinalysis urobilinogen, urine, semiquantitative (dipstick) 0.2 Normal glucose, urine, semiquantitative Negative Negative ketones, [...] Negative Encounters Code Encounter Date Provider Facility CPT-23447 Level 3 Est. Patient 14:30:47 TECHNICAL SERVICE REP Hector Love MD [facility] CPT-55315 Level 3 Est. Patient 14:50:45 CDT Hector Love MD [facility] CPT-29222 Level 3 Est. Patient 21:17:30 CDT Jen Crystal MD PhD [facility] CPT-42903 Level 3 Est. Patient 09:32:55 CDT Hector Love MD [facility] CPT-14471 Level 3 Est. Patient 15:11:08 TECHNICAL SERVICE REP Иван Mooney MD [facility] CPT-11249 Level 3 Est. Patient 16:38:53 TECHNICAL SERVICE REP Hector Love MD [facility] CPT-07821 Level 3 Est. Patient 15:46:05 CDT Hector Love MD [facility] CPT-05512 Level 3 Est. Patient 13:59:39 CDT Hector Love MD [facility] CPT-05707 Level 3 Est. Patient 14:44:46 TECHNICAL SERVICE REP Hector Love MD [facility]-52468 Level 3 Est. Patient 17:12:27 CDT Hector Love MD [facility] CPT-39523 Level 3 Est. Patient 15:30:32 CDT Hector Love MD [facility] CPT-10978 Level 3 Est. Patient 14:24:52 CDT Иван Mooney MD [facility] CPT-16901 Level 3 Est. Patient 14:08:38 TECHNICAL SERVICE REP Hector Love MD [facility] Procedures Code Procedure Name Date Entry Date Standard Description CPT-55013 Immunization Single Admin 16:11:28 TECHNICAL SERVICE REP CPT-88381 Fluzone Quadrivalent Intramuscular Suspension 0.5 ML 16: 11:28 TECHNICAL SERVICE REP CPT-10467 Administration single or combination vaccine inc oral 13 :57:23 CDT CPT-09920 Menactra Intramuscular Injectable 13:57:23 CDT CPT-61230 First Vx Component - Ix admin via ID IM or jet inj without physician counseling 16:42:17 TECHNICAL SERVICE REP CPT-43695 Fluzone preservative free (>=3 yrs.) 16:42:17 TECHNICAL SERVICE REP 06/03 CPT-41445 Venipuncture Draw Fee 16:29:01 CDT CPT-64624 Chest 2V Frontal and Lat 16:23:56 CDT CPT-91589 Administration single or combination vaccine inc oral 13 :39:17 TECHNICAL SERVICE REP CPT-20492 Tdap 13:39:17 TECHNICAL SERVICE REP
--- OUTSIDE RECORDS SUMMARY | 2017-12-24 18:35 | XMS REPORT | Clinical Summary ---
Author Author Admin, LAMBERT Organization [facility] Address Unknown Phone Unavailable Allergies, [...] TABS 1 pill by mouth daily LEVOFLOXACIN 34070881255 Active Jen Crystal MD PhD Active LISINOPRIL 5 MG TABS 1.5 tab qd LISINOPRIL 46094349476 Active Jen Crystal MD PhD Active KETOCONAZOLE 2 % CREA apply twice a day to rash KETOCONAZOLE 57588761352 No Longer Active Hector Love MD Active AUGMENTIN 875-125 MG TAB 1 tab by mouth twice daily with food AMOXICILLIN-POT CLAVULANATE 82402336186 No Longer Active Иван Mooney MD Active LOTRISONE 0.05-1 % CREAM Apply twice a day to affected area 07/19 CLOTRIMAZOLE-BETAMETHASONE 04327388758 No Longer Active Иван Mooney MD Active PROGRAF 1 MG CAPS 4 tabs po bid TACROLIMUS 22034639189 Active Hector Love MD Active FEXOFENADINE HCL 180 MG TABS 1 Daily FEXOFENADINE HCL 58925072931 No Longer Active Hector Love MD Active PROGRAF 0.5 MG CAPS Take one by mouth daily with 1 mg TACROLIMUS 92513598734 No Longer Active Hector Love MD Active AMOXICILLIN 500 MG CAPS 2 po BID x 10 days AMOXICILLIN 35946584234 No Longer Active Hector Love MD Active RAPAMUNE 1 MG TABS 3 tabs in the am SIROLIMUS 83250813987 No Longer Active Hector Love MD Active AMOXICILLIN 500 MG CAPS 2 po BID x 10 days AMOXICILLIN 06472858256 No Longer Active Hector Love MD Active LORTAB 5 5-500 MG TABS 1/2 to 1 tablet by mouth every 4 hours as needed for pain HYDROCODONE-ACETAMINOPHEN 63288075059 No Longer Active Hector Love MD Active FLUTICASONE PROPIONATE 50 MCG/ACT SUSP INSTILL 2 SPRAYS IN EACH NOSTRIL Q D FLUTICASONE PROPIONATE 72156329224 No Longer Active Hector Love MD Active PROGRAF 1 MG CAPS 1 po bid TACROLIMUS 86644801334 No Longer Active Hector Love MD Active AMOXICILLIN 875 MG TABS 1 tab by mouth twice daily AMOXICILLIN 03914855158 No Longer Active Hector Love MD Active AMOXICILLIN 500 MG CAPS 2 po BID x 10 days AMOXICILLIN 29144046836 No Longer Active Hector Love MD Active AUGMENTIN 875-125 MG TAB 1 tab by mouth twice daily with food AMOXICILLIN-POT CLAVULANATE 98960077778 No Longer Active Hector Love MD Active AZITHROMYCIN 250 MG TABS 2 po qd x 1 day, then 1 po qd x 4 days AZITHROMYCIN 11602919210 No Longer Active Hector Love MD Active CETIRIZINE HCL 10 MG TABS 1 PO Q D CETIRIZINE HCL 27718816984 No Longer Active [place] Active PROGRAF 1 MG CAPS 1 po bid PROGRAF 1 MG CAPS 133899 TACROLIMUS Inactive FLUTICASONE PROPIONATE 50 MCG/ACT SUSP INSTILL 2 SPRAYS IN EACH NOSTRIL Q D FLUTICASONE PROPIONATE 50 MCG/ACT SUSP 492249 FLUTICASONE PROPIONATE Inactive LORTAB 5 5-500 MG TABS 1/2 to 1 tablet by mouth every 4 hours as needed for pain LORTAB 5 5-500 MG TABS HYDROCODONE- ACETAMINOPHEN Inactive RAPAMUNE 1 MG TABS 3 tabs in the am RAPAMUNE 1 MG TABS SIROLIMUS Inactive PROGRAF 0.5 MG CAPS Take one by mouth daily with 1 mg PROGRAF 0.5 MG CAPS 190165 TACROLIMUS Inactive FEXOFENADINE HCL 180 MG TABS 1 Daily FEXOFENADINE HCL 180 MG TABS 074510 FEXOFENADINE HCL Inactive LOTRISONE 0.05-1 % CREAM Apply twice a day to affected area 07/19 LOTRISONE 0.05-1 % CREAM 092417 CLOTRIMAZOLE-BETAMETHASONE Inactive KETOCONAZOLE 2 % CREA apply twice a day to rash KETOCONAZOLE 2 % CREA 940560 KETOCONAZOLE Inactive AMOXICILLIN 500 MG CAPS 2 po BID x 10 days AMOXICILLIN 500 MG CAPS 860686 AMOXICILLIN Inactive AMOXICILLIN 875 MG TABS 1 tab by mouth twice daily AMOXICILLIN 875 MG TABS 961179 AMOXICILLIN Inactive AMOXICILLIN 500 MG CAPS 2 po BID x 10 days AMOXICILLIN 500 MG CAPS 467115 AMOXICILLIN Inactive AMOXICILLIN 500 MG CAPS 2 po BID x 10 days AMOXICILLIN 500 MG CAPS 119547 AMOXICILLIN Inactive AUGMENTIN 875-125 MG TAB 1 tab by mouth twice daily with food AUGMENTIN 875-125 MG TAB 315146 AMOXICILLIN-POT CLAVULANATE Inactive Advance Directives Directive Description Start Date PERMISSION TO SHARE Immunizations Vaccine Administration Date Value Standard Description Seasonal influenza vaccine, injectable, preservative free, for > 3 years old ( Afluria, FluLaval, Fluzone, Fluvirin, Fluarix, Agriflu(>=18 yo)) Fluzone preservative free (>=3 yrs.) [[id number]] Influenza, seasonal, injectable, preservative free Adacel (Tetanus, reduced Diphtheria, and acellular Pertussis Immunization) Adacel [CZL498] tetanus toxoid, reduced diphtheria toxoid, and acellular [...] Range Description blood pressure, diastolic - 8462-4 74 mm[Hg] [...] Value Unit Range Description Lab Report: CBC W/ DIFF - Hematology leukocyte count, blood 8.5 10*3/mm3 hemoglobin, blood 15.9 g/dL platelet count 12.1 10*3/mm3 Lab Report: CBC W/DIFF, Comp. Metabolic Panel, Thyroid Stimulating Hormo ... - Chemistry protein, total urine random Negative mg/dL Negative sodium, serum 139 mmol/L 214-506 9891/07/18 potassium, serum 4.5 mmol/L 3.5-5.2 chloride, serum [...] Negative Encounters Code Encounter Date Provider Facility CPT-27657 Level 3 Est. Patient 21:17:30 CDT Jen Crystal MD PhD [facility] CPT-92162 Level 3 Est. Patient 09:32:55 CDT Hector Love MD [facility] CPT-82548 Level 3 Est. Patient 15:11:08 ORTHO/PROSTHETIC AIDE Иван Mooney MD [facility] CPT-43947 Level 3 Est. Patient 16:38:53 ORTHO/PROSTHETIC AIDE Hector Love MD [facility] CPT-98701 Level 3 Est. Patient 15:46:05 CDT Hector Love MD [facility] CPT-89461 Level 3 Est. Patient 13:59:39 CDT Hector Love MD [facility] CPT-55518 Level 3 Est. Patient 14:44:46 ORTHO/PROSTHETIC AIDE Hector Love MD [facility] CPT-97153 Level 3 Est. Patient 17:12:27 CDT Hector Love MD [facility] CPT-91579 Level 3 Est. Patient 15:30:32 CDT Hector Love MD [facility] CPT-09450 Level 3 Est. Patient 14:24:52 CDT Иван Mooney MD [facility] CPT-12543 Level 3 Est. Patient 14:08:38 ORTHO/PROSTHETIC AIDE Hector Love MD [facility] Procedures Code Procedure Name Date Entry Date Standard Description CPT-39990 Administration single or combination vaccine inc oral 13 :57:23 CDT CPT-72248 Menactra Intramuscular Injectable 13:57:23 CDT CPT-54179 First Vx Component - Ix admin via ID IM or jet inj without physician counseling 16:42:17 ORTHO/PROSTHETIC AIDE CPT-53901 Fluzone preservative free (>=3 yrs.) 16:42:17 ORTHO/PROSTHETIC AIDE 06/03 CPT-78219 Venipuncture Draw Fee 16:29:01 CDT CPT-42351 Chest 2V Frontal and Lat 16:23:56 CDT CPT-84914 Administration single or combination vaccine inc oral 13 :39:17 ORTHO/PROSTHETIC AIDE CPT-59545 Tdap 13:39:17 ORTHO/PROSTHETIC AIDE
--- OUTSIDE RECORDS SUMMARY | 2017-12-24 18:35 | XMS REPORT | Clinical Summary ---
Author Author Admin, LAMBERT Organization [facility] Address Unknown Phone [...] 5 MG TABS 1 tab qd LISINOPRIL 38212982390 Active Hector Love MD Active KETOCONAZOLE 2 % CREA apply twice a day to rash KETOCONAZOLE 95576174477 No Longer Active Hector Love MD Active AUGMENTIN 875-125 MG TAB 1 tab by mouth twice daily with food AMOXICILLIN-POT CLAVULANATE 87449184187 No Longer Active Иван Mooney MD Active LOTRISONE 0.05-1 % CREAM Apply twice a day to affected area 07/19 CLOTRIMAZOLE-BETAMETHASONE 34969775690 No Longer Active Иван Mooney MD Active PROGRAF 1 MG CAPS 4 tabs po bid TACROLIMUS 92477216279 Active Hector Lvoe MD Active FEXOFENADINE HCL 180 MG TABS 1 Daily FEXOFENADINE HCL 31091902280 No Longer Active Hector Love MD Active PROGRAF 0.5 MG CAPS Take one by mouth daily with 1 mg TACROLIMUS 58099977421 No Longer Active Hector Love MD Active AMOXICILLIN 500 MG CAPS 2 po BID x 10 days AMOXICILLIN 51915115347 No Longer Active Hector Love MD Active RAPAMUNE 1 MG TABS 3 tabs in the am SIROLIMUS 59452876601 No Longer Active Hector Love MD Active AMOXICILLIN 500 MG CAPS 2 po BID x 10 days AMOXICILLIN 65726805824 No Longer Active Hector Love MD Active LORTAB 5 5-500 MG TABS 1/2 to 1 tablet by mouth every 4 hours as needed for pain HYDROCODONE-ACETAMINOPHEN 95867033689 No Longer Active Hector Love MD Active FLUTICASONE PROPIONATE 50 MCG/ACT SUSP INSTILL 2 SPRAYS IN EACH NOSTRIL Q D FLUTICASONE PROPIONATE 17887150290 No Longer Active Hector Love MD Active PROGRAF 1 MG CAPS 1 po bid TACROLIMUS 50291378618 No Longer Active Hector Love MD Active AMOXICILLIN 875 MG TABS 1 tab by mouth twice daily AMOXICILLIN 29924735450 No Longer Active Hector Love MD Active AMOXICILLIN 500 MG CAPS 2 po BID x 10 days AMOXICILLIN 31512150495 No Longer Active Hector Love MD Active AUGMENTIN 875-125 MG TAB 1 tab by mouth twice daily with food AMOXICILLIN-POT CLAVULANATE 10188539701 No Longer Active Hector Love MD Active AZITHROMYCIN 250 MG TABS 2 po qd x 1 day, then 1 po qd x 4 days AZITHROMYCIN 42236772495 No Longer Active Hector Love MD Active CETIRIZINE HCL 10 MG TABS 1 PO Q D CETIRIZINE HCL 70817324746 No Longer Active [place] Active PROGRAF 1 MG CAPS 1 po bid PROGRAF 1 MG CAPS 168679 TACROLIMUS Inactive FLUTICASONE PROPIONATE 50 MCG/ACT SUSP INSTILL 2 SPRAYS IN EACH NOSTRIL Q D FLUTICASONE PROPIONATE 50 MCG/ACT SUSP 838163 FLUTICASONE PROPIONATE Inactive LORTAB 5 5-500 MG TABS 1/2 to 1 tablet by mouth every 4 hours as needed for pain LORTAB 5 5-500 MG TABS HYDROCODONE- ACETAMINOPHEN Inactive RAPAMUNE 1 MG TABS 3 tabs in the am RAPAMUNE 1 MG TABS SIROLIMUS Inactive PROGRAF 0.5 MG CAPS Take one by mouth daily with 1 mg PROGRAF 0.5 MG CAPS 783255 TACROLIMUS Inactive FEXOFENADINE HCL 180 MG TABS 1 Daily FEXOFENADINE HCL 180 MG TABS 040528 FEXOFENADINE HCL Inactive LOTRISONE 0.05-1 % CREAM Apply twice a day to affected area 07/19 LOTRISONE 0.05-1 % CREAM 463548 CLOTRIMAZOLE-BETAMETHASONE Inactive KETOCONAZOLE 2 % CREA apply twice a day to rash KETOCONAZOLE 2 % CREA 060186 KETOCONAZOLE Inactive AMOXICILLIN 500 MG CAPS 2 po BID x 10 days AMOXICILLIN 500 MG CAPS 215082 AMOXICILLIN Inactive AMOXICILLIN 875 MG TABS 1 tab by mouth twice daily AMOXICILLIN 875 MG TABS 607570 AMOXICILLIN Inactive AMOXICILLIN 500 MG CAPS 2 po BID x 10 days AMOXICILLIN 500 MG CAPS 151968 AMOXICILLIN Inactive AMOXICILLIN 500 MG CAPS 2 po BID x 10 days AMOXICILLIN 500 MG CAPS 038092 AMOXICILLIN Inactive AUGMENTIN 875-125 MG TAB 1 tab by mouth twice daily with food AUGMENTIN 875-125 MG TAB 784543 AMOXICILLIN-POT CLAVULANATE Inactive Advance Directives Directive Description Start Date PERMISSION TO SHARE Immunizations Vaccine Administration Date Value Standard Description Seasonal influenza vaccine, injectable, preservative free, for > 3 years old ( Afluria, FluLaval, Fluzone, Fluvirin, Fluarix, Agriflu(>=18 yo)) Fluzone preservative free (>=3 yrs.) [[id number]] Influenza, seasonal, injectable, preservative free Adacel (Tetanus, reduced Diphtheria, and acellular Pertussis Immunization) Adacel [EAM002] tetanus toxoid, reduced diphtheria toxoid, and acellular [...] ... - Chemistry sodium, serum 137 mmol/L 969-219 3919/08/22 potassium, serum 4.5 mmol/L 3.5-5.2 chloride, serum [...] dipstick Negative Negative sodium, serum 139 mmol/L 064-218 4073/07/18 potassium, serum 4.5 mmol/L 3.5-5.2 chloride, serum [...] Negative Encounters Code Encounter Date Provider Facility CPT-73288 Level 3 Est. Patient 09:32:55 CDT Hector Love MD [facility] CPT-86604 Level 3 Est. Patient 15:11:08 SEAT NAILER Иван Mooney MD [facility] CPT-69529 Level 3 Est. Patient 16:38:53 SEAT NAILER Hector Love MD [facility] CPT-39649 Level 3 Est. Patient 15:46:05 CDT Hector Love MD [facility] CPT-08833 Level 3 Est. Patient 13:59:39 CDT Hector Love MD [facility] CPT-81395 Level 3 Est. Patient 14:44:46 SEAT NAILER Hector Love MD [facility] CPT-11025 Level 3 Est. Patient 17:12:27 CDT Hecotr Love MD [facility] CPT-33006 Level 3 Est. Patient 15:30:32 CDT Hector Love MD [facility] CPT-67997 Level 3 Est. Patient 14:24:52 CDT Иван Mooney MD [facility] CPT-38839 Level 3 Est. Patient 14:08:38 SEAT NAILER Hector Love MD [facility] Procedures Code Procedure Name Date Entry Date Standard Description CPT-58201 Administration single or combination vaccine inc oral 13 :57:23 CDT CPT-62278 Menactra Intramuscular Injectable 13:57:23 CDT CPT-63804 First Vx Component - Ix admin via ID IM or jet inj without physician counseling 16:42:17 SEAT NAILER CPT-97031 Fluzone preservative free (>=3 yrs.) 16:42:17 SEAT NAILER 06/03 CPT-97756 Venipuncture Draw Fee 16:29:01 CDT CPT-01350 Chest 2V Frontal and Lat 16:23:56 CDT CPT-67736 Administration single or combination vaccine inc oral 13 :39:17 SEAT NAILER CPT-30045 Tdap 13:39:17 SEAT NAILER
--- OUTSIDE RECORDS SUMMARY | 2017-12-24 18:36 | XMS REPORT | Clinical Summary ---
Author Author Admin, LAMBERT Organization [facility] Address Unknown Phone Unavailable Allergies, Adverse Reactions, [...] TABS 1 pill by mouth daily LEVOFLOXACIN 29453398704 Active Jen Crystal MD PhD Active LISINOPRIL 5 MG TABS 1.5 tab qd LISINOPRIL 01156088826 Active Jen Crystal MD PhD Active KETOCONAZOLE 2 % CREA apply twice a day to rash KETOCONAZOLE 77195771437 No Longer Active Hector Love MD Active AUGMENTIN 875-125 MG TAB 1 tab by mouth twice daily with food AMOXICILLIN-POT CLAVULANATE 74559088354 No Longer Active Иван Mooney MD Active LOTRISONE 0.05-1 % CREAM Apply twice a day to affected area 07/19 CLOTRIMAZOLE-BETAMETHASONE 44470101375 No Longer Active Иван Mooney MD Active PROGRAF 1 MG CAPS 4 tabs po bid TACROLIMUS 73345351980 Active Hector Love MD Active FEXOFENADINE HCL 180 MG TABS 1 Daily FEXOFENADINE HCL 89216599084 No Longer Active Hector Love MD Active PROGRAF 0.5 MG CAPS Take one by mouth daily with 1 mg TACROLIMUS 47222623681 No Longer Active Hector Love MD Active AMOXICILLIN 500 MG CAPS 2 po BID x 10 days AMOXICILLIN 05493282950 No Longer Active Hector Love MD Active RAPAMUNE 1 MG TABS 3 tabs in the am SIROLIMUS 02449738490 No Longer Active Hector Love MD Active AMOXICILLIN 500 MG CAPS 2 po BID x 10 days AMOXICILLIN 21804823804 No Longer Active Hector Love MD Active LORTAB 5 5-500 MG TABS 1/2 to 1 tablet by mouth every 4 hours as needed for pain HYDROCODONE-ACETAMINOPHEN 50058600168 No Longer Active Hector Love MD Active FLUTICASONE PROPIONATE 50 MCG/ACT SUSP INSTILL 2 SPRAYS IN EACH NOSTRIL Q D FLUTICASONE PROPIONATE 79935358144 No Longer Active Hector Love MD Active PROGRAF 1 MG CAPS 1 po bid TACROLIMUS 61805897369 No Longer Active Hector Love MD Active AMOXICILLIN 875 MG TABS 1 tab by mouth twice daily AMOXICILLIN 89382696049 No Longer Active Hector Love MD Active AMOXICILLIN 500 MG CAPS 2 po BID x 10 days AMOXICILLIN 20305329597 No Longer Active Hector Love MD Active AUGMENTIN 875-125 MG TAB 1 tab by mouth twice daily with food AMOXICILLIN-POT CLAVULANATE 66085689533 No Longer Active Hector Love MD Active AZITHROMYCIN 250 MG TABS 2 po qd x 1 day, then 1 po qd x 4 days AZITHROMYCIN 64358493645 No Longer Active Hector Love MD Active CETIRIZINE HCL 10 MG TABS 1 PO Q D CETIRIZINE HCL 76744836388 No Longer Active [place] Active PROGRAF 1 MG CAPS 1 po bid PROGRAF 1 MG CAPS 302653 TACROLIMUS Inactive FLUTICASONE PROPIONATE 50 MCG/ACT SUSP INSTILL 2 SPRAYS IN EACH NOSTRIL Q D FLUTICASONE PROPIONATE 50 MCG/ACT SUSP 594029 FLUTICASONE PROPIONATE Inactive LORTAB 5 5-500 MG TABS 1/2 to 1 tablet by mouth every 4 hours as needed for pain LORTAB 5 5-500 MG TABS HYDROCODONE- ACETAMINOPHEN Inactive RAPAMUNE 1 MG TABS 3 tabs in the am RAPAMUNE 1 MG TABS SIROLIMUS Inactive PROGRAF 0.5 MG CAPS Take one by mouth daily with 1 mg PROGRAF 0.5 MG CAPS 349915 TACROLIMUS Inactive FEXOFENADINE HCL 180 MG TABS 1 Daily FEXOFENADINE HCL 180 MG TABS 580641 FEXOFENADINE HCL Inactive LOTRISONE 0.05-1 % CREAM Apply twice a day to affected area 07/19 LOTRISONE 0.05-1 % CREAM 758872 CLOTRIMAZOLE-BETAMETHASONE Inactive KETOCONAZOLE 2 % CREA apply twice a day to rash KETOCONAZOLE 2 % CREA 564146 KETOCONAZOLE Inactive AMOXICILLIN 500 MG CAPS 2 po BID x 10 days AMOXICILLIN 500 MG CAPS 960443 AMOXICILLIN Inactive AMOXICILLIN 875 MG TABS 1 tab by mouth twice daily AMOXICILLIN 875 MG TABS 315262 AMOXICILLIN Inactive AMOXICILLIN 500 MG CAPS 2 po BID x 10 days AMOXICILLIN 500 MG CAPS 395591 AMOXICILLIN Inactive AMOXICILLIN 500 MG CAPS 2 po BID x 10 days AMOXICILLIN 500 MG CAPS 691763 AMOXICILLIN Inactive AUGMENTIN 875-125 MG TAB 1 tab by mouth twice daily with food AUGMENTIN 875-125 MG TAB 889863 AMOXICILLIN-POT CLAVULANATE Inactive Advance Directives Directive Description Start Date PERMISSION TO SHARE Immunizations Vaccine Administration Date Value Standard Description Seasonal influenza vaccine, injectable, preservative free, for > 3 years old ( Afluria, FluLaval, Fluzone, Fluvirin, Fluarix, Agriflu(>=18 yo)) Fluzone preservative free (>=3 yrs.) [[id number]] Influenza, seasonal, injectable, preservative free Adacel (Tetanus, reduced Diphtheria, and acellular Pertussis Immunization) Adacel [[id number]] tetanus toxoid, reduced diphtheria toxoid, and acellular [...] ... - Chemistry sodium, serum 139 mmol/L 938-720 3770/07/18 potassium, serum 4.5 mmol/L 3.5-5.2 chloride, serum [...] Negative Encounters Code Encounter Date Provider Facility CPT-37724 Level 3 Est. Patient 09:32:55 CDT Hector Love MD [facility] CPT-59403 Level 3 Est. 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 Patient 15:46:05 CDT Hector Love MD [facility] CPT-34939 Level 3 Est. Patient 13:59:39 CDT Hector Love MD [facility] CPT-17730 Level 3 Est. 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 Patient 17:12:27 CDT Hector Love MD [facility] CPT-47787 Level 3 Est. Patient 15:30:32 CDT Hector Love MD [facility] CPT-10464 Level 3 Est. Patient 14:24:52 CDT Иван Mooney MD [facility] CPT-31646 Level 3 Est. Patient 14:08:38 PLASTIC BLOCK [employer]ILER RELINER Hector Love MD [facility] Procedures Code Procedure Name Date Entry Date Standard Description CPT-63294 Administration single or combination vaccine inc oral 13 :57:23 CDT CPT-98589 Menactra Intramuscular Injectable 13:57:23 CDT CPT-46726 First Vx Component - Ix admin via ID IM or jet inj without physician counseling 16:42:17 P[employer]IC BLOCK [employer] RELINER CPT-89958 Fluzone preservative free (>=3 yrs.) 16:42:17 PLASTIC BLOCK [employer]ILER RELINER 06/03 CPT-43465 Venipuncture Draw Fee 16:29:01 CDT CPT-05393 Chest 2V Frontal and Lat 16:23:56 CDT CPT-39380 Administration single or combination vaccine inc oral 13 :39:17 PLASTIC BLOCK BOILER RELINER CPT-72279 Tdap 13:39:17 PLASTIC BLOCK BOILER RELINER
--- OUTSIDE RECORDS SUMMARY | 2017-12-24 18:37 | XMS REPORT | Clinical Summary ---
[...] 5 MG TABS 1 tab qd LISINOPRIL 44255668751 Active Hector Love MD Active KETOCONAZOLE 2 % CREA apply twice a day to rash KETOCONAZOLE 55758857305 No Longer Active Hector Love MD Active AUGMENTIN 875-125 MG TAB 1 tab by mouth twice daily with food AMOXICILLIN-POT CLAVULANATE 33323517961 No Longer Active Иван Mooney MD Active LOTRISONE 0.05-1 % CREAM Apply twice a day to affected area 07/19 CLOTRIMAZOLE-BETAMETHASONE 05410779777 No Longer Active Иван Mooney MD Active PROGRAF 1 MG CAPS 4 tabs po bid TACROLIMUS 58891138092 Active Hector Love MD Active FEXOFENADINE HCL 180 MG TABS 1 Daily FEXOFENADINE HCL 10199376087 No Longer Active Hector Love MD Active PROGRAF 0.5 MG CAPS Take one by mouth daily with 1 mg TACROLIMUS 28864997755 No Longer Active Hector Love MD Active AMOXICILLIN 500 MG CAPS 2 po BID x 10 days AMOXICILLIN 28907315401 No Longer Active Hector Love MD Active RAPAMUNE 1 MG TABS 3 tabs in the am SIROLIMUS 68421647294 No Longer Active Hector Love MD Active AMOXICILLIN 500 MG CAPS 2 po BID x 10 days AMOXICILLIN 84042672383 No Longer Active Hector Love MD Active LORTAB 5 5-500 MG TABS 1/2 to 1 tablet by mouth every 4 hours as needed for pain HYDROCODONE-ACETAMINOPHEN 48595900704 No Longer Active Hector Love MD Active FLUTICASONE PROPIONATE 50 MCG/ACT SUSP INSTILL 2 SPRAYS IN EACH NOSTRIL Q D FLUTICASONE PROPIONATE 48025876363 No Longer Active Hector Love MD Active PROGRAF 1 MG CAPS 1 po bid TACROLIMUS 94263889886 No Longer Active Hector Love MD Active AMOXICILLIN 875 MG TABS 1 tab by mouth twice daily AMOXICILLIN 75817754047 No Longer Active Hector Love MD Active AMOXICILLIN 500 MG CAPS 2 po BID x 10 days AMOXICILLIN 81876261990 No Longer Active Hector Love MD Active AUGMENTIN 875-125 MG TAB 1 tab by mouth twice daily with food AMOXICILLIN-POT CLAVULANATE 02290967170 No Longer Active Hector Love MD Active AZITHROMYCIN 250 MG TABS 2 po qd x 1 day, then 1 po qd x 4 days AZITHROMYCIN 68502475645 No Longer Active Hector Love MD Active CETIRIZINE HCL 10 MG TABS 1 PO Q D CETIRIZINE HCL 91446565452 No Longer Active [place] Active PROGRAF 1 MG CAPS 1 po bid PROGRAF 1 MG CAPS 543403 TACROLIMUS Inactive FLUTICASONE PROPIONATE 50 MCG/ACT SUSP INSTILL 2 SPRAYS IN EACH NOSTRIL Q D FLUTICASONE PROPIONATE 50 MCG/ACT SUSP 778321 FLUTICASONE PROPIONATE Inactive LORTAB 5 5-500 MG TABS 1/2 to 1 tablet by mouth every 4 hours as needed for pain LORTAB 5 5-500 MG TABS HYDROCODONE- ACETAMINOPHEN Inactive RAPAMUNE 1 MG TABS 3 tabs in the am RAPAMUNE 1 MG TABS SIROLIMUS Inactive PROGRAF 0.5 MG CAPS Take one by mouth daily with 1 mg PROGRAF 0.5 MG CAPS 589074 TACROLIMUS Inactive FEXOFENADINE HCL 180 MG TABS 1 Daily FEXOFENADINE HCL 180 MG TABS 272535 FEXOFENADINE HCL Inactive LOTRISONE 0.05-1 % CREAM Apply twice a day to affected area 07/19 LOTRISONE 0.05-1 % CREAM 994914 CLOTRIMAZOLE-BETAMETHASONE Inactive KETOCONAZOLE 2 % CREA apply twice a day to rash KETOCONAZOLE 2 % CREA 022529 KETOCONAZOLE Inactive AMOXICILLIN 500 MG CAPS 2 po BID x 10 days AMOXICILLIN 500 MG CAPS 169012 AMOXICILLIN Inactive AMOXICILLIN 875 MG TABS 1 tab by mouth twice daily AMOXICILLIN 875 MG TABS 893444 AMOXICILLIN Inactive AMOXICILLIN 500 MG CAPS 2 po BID x 10 days AMOXICILLIN 500 MG CAPS 667809 AMOXICILLIN Inactive AMOXICILLIN 500 MG CAPS 2 po BID x 10 days AMOXICILLIN 500 MG CAPS 679656 AMOXICILLIN Inactive AUGMENTIN 875-125 MG TAB 1 tab by mouth twice daily with food AUGMENTIN 875-125 MG TAB 914857 AMOXICILLIN-POT CLAVULANATE Inactive Advance Directives Directive Description Start Date PERMISSION TO SHARE Immunizations Vaccine Administration Date Value Standard Description Seasonal influenza vaccine, injectable, preservative free, for > 3 years old ( Afluria, FluLaval, Fluzone, Fluvirin, Fluarix, Agriflu(>=18 yo)) Fluzone preservative free (>=3 yrs.) [[id number]] Influenza, seasonal, injectable, preservative free Adacel (Tetanus, reduced Diphtheria, and acellular Pertussis Immunization) Adacel [[id number]] tetanus toxoid, reduced diphtheria toxoid, and acellular [...] ... - Chemistry sodium, serum 137 mmol/L 363-335 4502/08/22 potassium, serum 4.5 mmol/L 3.5-5.2 chloride, serum [...] dipstick Negative Negative sodium, serum 139 mmol/L 318-821 3245/07/18 potassium, serum 4.5 mmol/L 3.5-5.2 chloride, serum [...] Negative Encounters Code Encounter Date Provider Facility CPT-88687 Level 3 Est. Patient 09:32:55 CDT Hector Love MD [facility] CPT-47497 Level 3 Est. 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 Patient 15:46:05 CDT Hector Love MD [facility] CPT-24281 Level 3 Est. Patient 13:59:39 CDT Hector Love MD [facility] CPT-21392 Level 3 Est. 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 Patient 17:12:27 CDT Hector Love MD [facility] CPT-00191 Level 3 Est. Patient 15:30:32 CDT Hector Love MD [facility] CPT-16099 Level 3 Est. Patient 14:24:52 CDT Иван Mooney MD [facility] CPT-59535 Level 3 Est. 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
--- OUTSIDE RECORDS SUMMARY | 2017-12-24 18:38 | XMS REPORT | Clinical Summary ---
Author Author Admin, LAMBERT Organization [facility] Address Unknown Phone Unavailable Allergies, Adverse Reactions, [...] STREPTOCOCCUS PNEUMONIAE (PNEUMOCOCCUS) AND INFLUENZA V06.6 Active Mirian Collins Clare Need for prophylactic vaccination and inoculation against Streptococcus pneumoniae [pneumococcus] and influenza BRONCHITIS, ACUTE ICD-466.0 Inactive Hector Love MD [...] MD COUGH ICD-786.2 Inactive Hector Love MD Medication List Medication Instructions Start Date Stop Date Generic Name NDC Status Provider Patient Instruction FLONASE 50 MCG/ACT SUSP 2 puffs in each nostril daily FLUTICASONE PROPIONATE 29595745738 Active Hector Love MD Active AUGMENTIN 875-125 MG TAB 1 tab by mouth twice daily with food AMOXICILLIN-POT CLAVULANATE 91605902318 Active Hector Love MD Active LEVAQUIN 500 MG TABS 1 pill by mouth daily LEVOFLOXACIN 72673906242 No Longer Active Jen Crystal MD PhD Active LISINOPRIL 5 MG TABS 1.5 tab qd LISINOPRIL 26462773633 Active Jen Crystal MD PhD Active KETOCONAZOLE 2 % CREA apply twice a day to rash KETOCONAZOLE 43917651583 No Longer Active Hector Love MD Active AUGMENTIN 875-125 MG TAB 1 tab by mouth twice daily with food AMOXICILLIN-POT CLAVULANATE 94115888351 No Longer Active Иван Mooney MD Active LOTRISONE 0.05-1 % CREAM Apply twice a day to affected area 07/19 CLOTRIMAZOLE-BETAMETHASONE 90660473616 No Longer Active Иван Mooney MD Active PROGRAF 1 MG CAPS 4 tabs po bid TACROLIMUS 80975898344 Active Hector Love MD Active FEXOFENADINE HCL 180 MG TABS 1 Daily FEXOFENADINE HCL 30538691927 No Longer Active Hector Love MD Active PROGRAF 0.5 MG CAPS Take one by mouth daily with 1 mg TACROLIMUS 96470383014 No Longer Active Hector Love MD Active AMOXICILLIN 500 MG CAPS 2 po BID x 10 days AMOXICILLIN 00675840199 No Longer Active Hector Love MD Active RAPAMUNE 1 MG TABS 3 tabs in the am SIROLIMUS 22396894902 No Longer Active Hector Love MD Active AMOXICILLIN 500 MG CAPS 2 po BID x 10 days AMOXICILLIN 96342517731 No Longer Active Hector Love MD Active LORTAB 5 5-500 MG TABS 1/2 to 1 tablet by mouth every 4 hours as needed for pain HYDROCODONE-ACETAMINOPHEN 38656893038 No Longer Active Hector Love MD Active FLUTICASONE PROPIONATE 50 MCG/ACT SUSP INSTILL 2 SPRAYS IN EACH NOSTRIL Q D FLUTICASONE PROPIONATE 03822878984 No Longer Active Hector Love MD Active PROGRAF 1 MG CAPS 1 po bid TACROLIMUS 59649857980 No Longer Active Hector Love MD Active AMOXICILLIN 875 MG TABS 1 tab by mouth twice daily AMOXICILLIN 68519735059 No Longer Active Hector Love MD Active AMOXICILLIN 500 MG CAPS 2 po BID x 10 days AMOXICILLIN 72540114708 No Longer Active Hector Love MD Active AUGMENTIN 875-125 MG TAB 1 tab by mouth twice daily with food AMOXICILLIN-POT CLAVULANATE 73222497377 No Longer Active Hector Love MD Active AZITHROMYCIN 250 MG TABS 2 po qd x 1 day, then 1 po qd x 4 days AZITHROMYCIN 29383106739 No Longer Active Hector Love MD Active CETIRIZINE HCL 10 MG TABS 1 PO Q D CETIRIZINE HCL 61565532397 No Longer Active [place] Active PROGRAF 1 MG CAPS 1 po bid PROGRAF 1 MG CAPS 019078 TACROLIMUS Inactive FLUTICASONE PROPIONATE 50 MCG/ACT SUSP INSTILL 2 SPRAYS IN EACH NOSTRIL Q D FLUTICASONE PROPIONATE 50 MCG/ACT SUSP 730585 FLUTICASONE PROPIONATE Inactive LORTAB 5 5-500 MG TABS 1/2 to 1 tablet by mouth every 4 hours as needed for pain LORTAB 5 5-500 MG TABS HYDROCODONE- ACETAMINOPHEN Inactive RAPAMUNE 1 MG TABS 3 tabs in the am RAPAMUNE 1 MG TABS 800352 SIROLIMUS Inactive PROGRAF 0.5 MG CAPS Take one by mouth daily with 1 mg PROGRAF 0.5 MG CAPS 256224 TACROLIMUS Inactive FEXOFENADINE HCL 180 MG TABS 1 Daily FEXOFENADINE HCL 180 MG TABS 263586 FEXOFENADINE HCL Inactive LOTRISONE 0.05-1 % CREAM Apply twice a day to affected area 07/19 LOTRISONE 0.05-1 % CREAM 565948 CLOTRIMAZOLE-BETAMETHASONE Inactive KETOCONAZOLE 2 % CREA apply twice a day to rash KETOCONAZOLE 2 % CREA 693774 KETOCONAZOLE Inactive AMOXICILLIN 500 MG CAPS 2 po BID x 10 days AMOXICILLIN 500 MG CAPS 375716 AMOXICILLIN Inactive AMOXICILLIN 875 MG TABS 1 tab by mouth twice daily AMOXICILLIN 875 MG TABS 087526 AMOXICILLIN Inactive AMOXICILLIN 500 MG CAPS 2 po BID x 10 days AMOXICILLIN 500 MG CAPS 621252 AMOXICILLIN Inactive AMOXICILLIN 500 MG CAPS 2 po BID x 10 days AMOXICILLIN 500 MG CAPS 156852 AMOXICILLIN Inactive AUGMENTIN 875-125 MG TAB 1 tab by mouth twice daily with food AUGMENTIN 875-125 MG TAB 877802 AMOXICILLIN-POT CLAVULANATE Inactive LEVAQUIN 500 MG TABS 1 pill by mouth daily LEVAQUIN 500 MG TABS 106313 LEVOFLOXACIN Inactive Advance Directives Directive Description Start Date PERMISSION TO SHARE Immunizations Vaccine Administration Date Value Standard Description Seasonal influenza vaccine, injectable, preservative free, for > 3 years old ( Afluria, FluLaval, Fluzone, Fluvirin, Fluarix, Agriflu(>=18 yo)) Fluzone preservative free (>=3 yrs.) [[id number]] Influenza, seasonal, injectable, preservative free Adacel (Tetanus, reduced Diphtheria, and acellular Pertussis Immunization) Adacel [[id number]] tetanus toxoid, reduced diphtheria toxoid, and acellular [...] Negative mg/dL Negative sodium, serum 139 mmol/L 230-094 6449/07/18 potassium, serum 4.5 mmol/L 3.5-5.2 chloride, serum [...] Negative Encounters Code Encounter Date Provider Facility CPT-59225 Level 3 Est. Patient 14:50:45 CDT Hector Love MD [facility] CPT-16470 Level 3 Est. Patient 21:17:30 CDT Jen Crystal MD PhD [facility] CPT-27329 Level 3 Est. Patient 09:32:55 CDT Hector Love MD [facility] CPT-23593 Level 3 Est. 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 Patient 15:46:05 CDT Hector Love MD [facility] CPT-88556 Level 3 Est. Patient 13:59:39 CDT Hector Love MD [facility] CPT-18443 Level 3 Est. 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 Patient 17:12:27 CDT Hector Love MD [facility] CPT-37542 Level 3 Est. Patient 15:30:32 CDT Hector Love MD [facility] CPT-38667 Level 3 Est. Patient 14:24:52 CDT Иван Mooney MD [facility] CPT-48174 Level 3 Est. 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 Hector Love MD [facility] Procedures Code Procedure Name Date Entry Date Standard Description CPT-02871 Immunization Single Admin 16:11:28 [employer]MARKETING [employer] CPT-94695 Fluzone Quadrivalent Intramuscular Suspension 0.5 ML 16: 11:28 [employer]MARKETING [employer] CPT-74569 Administration single or combination vaccine inc oral 13 :57:23 CDT CPT-93165 Menactra Intramuscular Injectable 13:57:23 CDT CPT-53816 First Vx Component - Ix admin via ID IM or jet inj without physician counseling 16:42:17 TELEMARKETING [employer]DRA[employer]ER CPT-01887 Fluzone preservative free (>=3 yrs.) 16:42:17 TELEMARKETING FUNDRAISER 06/03 CPT-66261 Venipuncture Draw Fee 16:29:01 CDT CPT-22351 Chest 2V Frontal and Lat 16:23:56 CDT CPT-73237 Administration single or combination vaccine inc oral 13 :39:17 TELEMARKETING [employer]DR[employer] CPT-93679 Tdap 13:39:17 TELEMARKETING [employer]DRA[employer]ER
--- OUTSIDE RECORDS SUMMARY | 2017-12-24 18:38 | XMS REPORT | Clinical Summary ---
Author Author Admin, LAMBERT Organization [facility] Address Unknown Phone Unavailable Allergies, [...] puffs in each nostril daily FLUTICASONE PROPIONATE 81391229434 Active Hector Love MD Active AUGMENTIN 875-125 MG TAB 1 tab by mouth twice daily with food AMOXICILLIN-POT CLAVULANATE 73231854253 Active Hector Love MD Active LEVAQUIN 500 MG TABS 1 pill by mouth daily LEVOFLOXACIN 91442660015 No Longer Active Jen Crystal MD PhD Active LISINOPRIL 5 MG TABS 1.5 tab qd LISINOPRIL 14369406454 Active Jen rCystal MD PhD Active KETOCONAZOLE 2 % CREA apply twice a day to rash KETOCONAZOLE 16182541478 No Longer Active Hector Love MD Active AUGMENTIN 875-125 MG TAB 1 tab by mouth twice daily with food AMOXICILLIN-POT CLAVULANATE 50578551563 No Longer Active Иван Mooney MD Active LOTRISONE 0.05-1 % CREAM Apply twice a day to affected area 07/19 CLOTRIMAZOLE-BETAMETHASONE 26869573015 No Longer Active Иван Mooney MD Active PROGRAF 1 MG CAPS 4 tabs po bid TACROLIMUS 76725637962 Active Hector Love MD Active FEXOFENADINE HCL 180 MG TABS 1 Daily FEXOFENADINE HCL 83578313388 No Longer Active Hector Love MD Active PROGRAF 0.5 MG CAPS Take one by mouth daily with 1 mg TACROLIMUS 49786866189 No Longer Active Hector Love MD Active AMOXICILLIN 500 MG CAPS 2 po BID x 10 days AMOXICILLIN 89401951262 No Longer Active Hector Love MD Active RAPAMUNE 1 MG TABS 3 tabs in the am SIROLIMUS 36413385076 No Longer Active Hector Love MD Active AMOXICILLIN 500 MG CAPS 2 po BID x 10 days AMOXICILLIN 58055564271 No Longer Active Hector Love MD Active LORTAB 5 5-500 MG TABS 1/2 to 1 tablet by mouth every 4 hours as needed for pain HYDROCODONE-ACETAMINOPHEN 67848321825 No Longer Active Hector Love MD Active FLUTICASONE PROPIONATE 50 MCG/ACT SUSP INSTILL 2 SPRAYS IN EACH NOSTRIL Q D FLUTICASONE PROPIONATE 58841807071 No Longer Active Hector Love MD Active PROGRAF 1 MG CAPS 1 po bid TACROLIMUS 85740259845 No Longer Active Hector Love MD Active AMOXICILLIN 875 MG TABS 1 tab by mouth twice daily AMOXICILLIN 60240032635 No Longer Active Hector Love MD Active AMOXICILLIN 500 MG CAPS 2 po BID x 10 days AMOXICILLIN 10585350199 No Longer Active Hector Love MD Active AUGMENTIN 875-125 MG TAB 1 tab by mouth twice daily with food AMOXICILLIN-POT CLAVULANATE 38849042588 No Longer Active Hector Love MD Active AZITHROMYCIN 250 MG TABS 2 po qd x 1 day, then 1 po qd x 4 days AZITHROMYCIN 65951745400 No Longer Active Hector Love MD Active CETIRIZINE HCL 10 MG TABS 1 PO Q D CETIRIZINE HCL 39834059877 No Longer Active [place] Active PROGRAF 1 MG CAPS 1 po bid PROGRAF 1 MG CAPS 708412 TACROLIMUS Inactive FLUTICASONE PROPIONATE 50 MCG/ACT SUSP INSTILL 2 SPRAYS IN EACH NOSTRIL Q D FLUTICASONE PROPIONATE 50 MCG/ACT SUSP 293135 FLUTICASONE PROPIONATE Inactive LORTAB 5 5-500 MG TABS 1/2 to 1 tablet by mouth every 4 hours as needed for pain LORTAB 5 5-500 MG TABS HYDROCODONE- ACETAMINOPHEN Inactive RAPAMUNE 1 MG TABS 3 tabs in the am RAPAMUNE 1 MG TABS 540748 SIROLIMUS Inactive PROGRAF 0.5 MG CAPS Take one by mouth daily with 1 mg PROGRAF 0.5 MG CAPS 896722 TACROLIMUS Inactive FEXOFENADINE HCL 180 MG TABS 1 Daily FEXOFENADINE HCL 180 MG TABS 135910 FEXOFENADINE HCL Inactive LOTRISONE 0.05-1 % CREAM Apply twice a day to affected area 07/19 LOTRISONE 0.05-1 % CREAM 791481 CLOTRIMAZOLE-BETAMETHASONE Inactive KETOCONAZOLE 2 % CREA apply twice a day to rash KETOCONAZOLE 2 % CREA 898889 KETOCONAZOLE Inactive AMOXICILLIN 500 MG CAPS 2 po BID x 10 days AMOXICILLIN 500 MG CAPS 532001 AMOXICILLIN Inactive AMOXICILLIN 875 MG TABS 1 tab by mouth twice daily AMOXICILLIN 875 MG TABS 572318 AMOXICILLIN Inactive AMOXICILLIN 500 MG CAPS 2 po BID x 10 days AMOXICILLIN 500 MG CAPS 363140 AMOXICILLIN Inactive AMOXICILLIN 500 MG CAPS 2 po BID x 10 days AMOXICILLIN 500 MG CAPS 335159 AMOXICILLIN Inactive AUGMENTIN 875-125 MG TAB 1 tab by mouth twice daily with food AUGMENTIN 875-125 MG TAB 938740 AMOXICILLIN-POT CLAVULANATE Inactive LEVAQUIN 500 MG TABS 1 pill by mouth daily LEVAQUIN 500 MG TABS 238386 LEVOFLOXACIN Inactive Advance Directives Directive Description Start Date PERMISSION TO SHARE Immunizations Vaccine Administration Date Value Standard Description Seasonal influenza vaccine, injectable, preservative free, for > 3 years old ( Afluria, FluLaval, Fluzone, Fluvirin, Fluarix, Agriflu(>=18 yo)) Fluzone preservative free (>=3 yrs.) [[id number]] Influenza, seasonal, injectable, preservative free Adacel (Tetanus, reduced Diphtheria, and acellular Pertussis Immunization) Adacel [[id number]] tetanus toxoid, reduced diphtheria toxoid, and acellular [...] dipstick Negative Negative sodium, serum 139 mmol/L 770-305 5493/07/18 potassium, serum 4.5 mmol/L 3.5-5.2 chloride, serum [...] concentration, RBC 33.8 G/DL % 31.8- 35.4 erythrocyte (RBC) count 4.95 10^6/MM^3 10*6/mm3 4.69-6.13 lymphocytes as percent of blood leukocytes 40.5 % 20.5-51.1 monocytes as percent of blood leukocytes 9.6 % 1.7-9.3 neutrophils as percent of blood leukocytes 46.5 % 42.2-75.2 leukocyte count, blood 7.6 10^3/MM^3 10*3/mm3 4.6-10.2 mean corpuscular hemoglobin, RBC 30.1 pg 27.0-31.2 mean corpuscular volume, RBC 89 fL 80-97 hematocrit, blood 44.1 % 41.0-53.0 hemoglobin, blood 14.9 g/dL 13.5-17.5 red blood cell distribution width 15.0 % [...] % 11.6-14.8 platelet count 235 10^3/MM^3 10*3/mm3 627-002 2036/09/02 neutrophils as percent of blood leukocytes 66.3 [...] Negative Encounters Code Encounter Date Provider Facility CPT-99590 Level 3 Est. Patient 14:50:45 CDT Hector Love MD [facility] CPT-15828 Level 3 Est. Patient 21:17:30 CDT Jen Crystal MD PhD [facility] CPT-34832 Level 3 Est. Patient 09:32:55 CDT Hector Love MD [facility] CPT-02191 Level 3 Est. Patient 15:11:08 [employer]ODUCT TECH[employer]OLOGY SCIENTIST Иван Mooney MD [facility] CPT-07084 Level 3 Est. Patient 16:38:53 PRODUCT TECHNOLOGY SCIENTIST Hector Love MD [facility] CPT-88384 Level 3 Est. Patient 15:46:05 CDT Hector Love MD [facility] CPT-56163 Level 3 Est. Patient 13:59:39 CDT Hector Love MD [facility] CPT-88920 Level 3 Est. Patient 14:44:46 PRODUCT TECHNOLOGY SCIENTIST Hector Love MD [facility] CPT-30608 Level 3 Est. Patient 17:12:27 CDT Hector Love MD [facility] CPT-65088 Level 3 Est. Patient 15:30:32 CDT Hector Love MD [facility] CPT-33884 Level 3 Est. Patient 14:24:52 CDT Иван Mooney MD [facility] CPT-55694 Level 3 Est. Patient 14:08:38 PRODUCT TECHNOLOGY SCIENTIST Hector Love MD [facility] Procedures Code Procedure Name Date Entry Date Standard Description CPT-58723 Immunization Single Admin 16:11:28 PRODUCT TECHNOLOGY SCIENTIST CPT-16864 Fluzone Quadrivalent Intramuscular Suspension 0.5 ML 16: 11:28 PRODUCT TECHNOLOGY SCIENTIST CPT-08509 Administration single or combination vaccine inc oral 13 :57:23 CDT CPT-19076 Menactra Intramuscular Injectable 13:57:23 CDT CPT-81019 First Vx Component - Ix admin via ID IM or jet inj without physician counseling 16:42:17 PRODUCT TECHNOLOGY SCIENTIST CPT-06248 Fluzone preservative free (>=3 yrs.) 16:42:17 PRODUCT TECHNOLOGY SCIENTIST 06/03 CPT-04278 Venipuncture Draw Fee 16:29:01 CDT CPT-89685 Chest 2V Frontal and Lat 16:23:56 CDT CPT-92400 Administration single or combination vaccine inc oral 13 :39:17 PRODUCT TECHNOLOGY SCIENTIST CPT-34188 Tdap 13:39:17 PRODUCT TECHNOLOGY SCIENTIST
--- OUTSIDE RECORDS SUMMARY | 2017-12-24 18:39 | XMS REPORT | Clinical Summary ---
[...] 5 MG TABS 1 tab qd LISINOPRIL 44883213903 Active Hector Love MD Active KETOCONAZOLE 2 % CREA apply twice a day to rash KETOCONAZOLE 89419429121 No Longer Active Hector Love MD Active AUGMENTIN 875-125 MG TAB 1 tab by mouth twice daily with food AMOXICILLIN-POT CLAVULANATE 09952042397 No Longer Active Иван Mooney MD Active LOTRISONE 0.05-1 % CREAM Apply twice a day to affected area 07/19 CLOTRIMAZOLE-BETAMETHASONE 56549539806 No Longer Active Иван Mooney MD Active PROGRAF 1 MG CAPS 4 tabs po bid TACROLIMUS 06566425968 Active Hector Love MD Active FEXOFENADINE HCL 180 MG TABS 1 Daily FEXOFENADINE HCL 12248626320 No Longer Active Hector Love MD Active PROGRAF 0.5 MG CAPS Take one by mouth daily with 1 mg TACROLIMUS 67636741740 No Longer Active Hector Love MD Active AMOXICILLIN 500 MG CAPS 2 po BID x 10 days AMOXICILLIN 04199896878 No Longer Active Hector Love MD Active RAPAMUNE 1 MG TABS 3 tabs in the am SIROLIMUS 52115849591 No Longer Active Hector Love MD Active AMOXICILLIN 500 MG CAPS 2 po BID x 10 days AMOXICILLIN 46043390523 No Longer Active Hector Love MD Active LORTAB 5 5-500 MG TABS 1/2 to 1 tablet by mouth every 4 hours as needed for pain HYDROCODONE-ACETAMINOPHEN 90569258677 No Longer Active Hector Love MD Active FLUTICASONE PROPIONATE 50 MCG/ACT SUSP INSTILL 2 SPRAYS IN EACH NOSTRIL Q D FLUTICASONE PROPIONATE 78830455591 No Longer Active Hector Love MD Active PROGRAF 1 MG CAPS 1 po bid TACROLIMUS 43200118581 No Longer Active Hector Love MD Active AMOXICILLIN 875 MG TABS 1 tab by mouth twice daily AMOXICILLIN 45476769106 No Longer Active Hector Love MD Active AMOXICILLIN 500 MG CAPS 2 po BID x 10 days AMOXICILLIN 89959610452 No Longer Active Hector Love MD Active AUGMENTIN 875-125 MG TAB 1 tab by mouth twice daily with food AMOXICILLIN-POT CLAVULANATE 43131468493 No Longer Active Hector Love MD Active AZITHROMYCIN 250 MG TABS 2 po qd x 1 day, then 1 po qd x 4 days AZITHROMYCIN 80094563047 No Longer Active Hector Love MD Active CETIRIZINE HCL 10 MG TABS 1 PO Q D CETIRIZINE HCL 81869711647 No Longer Active [place] Active PROGRAF 1 MG CAPS 1 po bid PROGRAF 1 MG CAPS 404476 TACROLIMUS Inactive FLUTICASONE PROPIONATE 50 MCG/ACT SUSP INSTILL 2 SPRAYS IN EACH NOSTRIL Q D FLUTICASONE PROPIONATE 50 MCG/ACT SUSP 878896 FLUTICASONE PROPIONATE Inactive LORTAB 5 5-500 MG TABS 1/2 to 1 tablet by mouth every 4 hours as needed for pain LORTAB 5 5-500 MG TABS HYDROCODONE- ACETAMINOPHEN Inactive RAPAMUNE 1 MG TABS 3 tabs in the am RAPAMUNE 1 MG TABS SIROLIMUS Inactive PROGRAF 0.5 MG CAPS Take one by mouth daily with 1 mg PROGRAF 0.5 MG CAPS 631309 TACROLIMUS Inactive FEXOFENADINE HCL 180 MG TABS 1 Daily FEXOFENADINE HCL 180 MG TABS 907677 FEXOFENADINE HCL Inactive LOTRISONE 0.05-1 % CREAM Apply twice a day to affected area 07/19 LOTRISONE 0.05-1 % CREAM 335108 CLOTRIMAZOLE-BETAMETHASONE Inactive KETOCONAZOLE 2 % CREA apply twice a day to rash KETOCONAZOLE 2 % CREA 930669 KETOCONAZOLE Inactive AMOXICILLIN 500 MG CAPS 2 po BID x 10 days AMOXICILLIN 500 MG CAPS 196179 AMOXICILLIN Inactive AMOXICILLIN 875 MG TABS 1 tab by mouth twice daily AMOXICILLIN 875 MG TABS 455037 AMOXICILLIN Inactive AMOXICILLIN 500 MG CAPS 2 po BID x 10 days AMOXICILLIN 500 MG CAPS 678224 AMOXICILLIN Inactive AMOXICILLIN 500 MG CAPS 2 po BID x 10 days AMOXICILLIN 500 MG CAPS 457076 AMOXICILLIN Inactive AUGMENTIN 875-125 MG TAB 1 tab by mouth twice daily with food AUGMENTIN 875-125 MG TAB 742098 AMOXICILLIN-POT CLAVULANATE Inactive Advance Directives Directive Description Start Date PERMISSION TO SHARE Immunizations Vaccine Administration Date Value Standard Description Seasonal influenza vaccine, injectable, preservative free, for > 3 years old ( Afluria, FluLaval, Fluzone, Fluvirin, Fluarix, Agriflu(>=18 yo)) Fluzone preservative free (>=3 yrs.) [[id number]] Influenza, seasonal, injectable, preservative free Adacel (Tetanus, reduced Diphtheria, and acellular Pertussis Immunization) Adacel [[id number]] tetanus toxoid, reduced diphtheria toxoid, and acellular [...] ... - Chemistry sodium, serum 137 mmol/L 706-815 7361/08/22 potassium, serum 4.5 mmol/L 3.5-5.2 chloride, serum [...] dipstick Negative Negative sodium, serum 139 mmol/L 446-894 8004/07/18 potassium, serum 4.5 mmol/L 3.5-5.2 chloride, serum [...] Negative Encounters Code Encounter Date Provider Facility CPT-30275 Level 3 Est. Patient 09:32:55 CDT Hector Love MD [facility] CPT-66016 Level 3 Est. Patient 15:11:08 [employer] Иван Mooney MD [facility] CPT-85067 Level 3 Est. Patient 16:38:53 [employer] Hector Love MD [facility] CPT-68178 Level 3 Est. Patient 15:46:05 CDT Hector Love MD [facility] CPT-36910 Level 3 Est. Patient 13:59:39 CDT Hector Love MD [facility] CPT-96098 Level 3 Est. Patient 14:44:46 [employer] Hector Love MD [facility] CPT-23271 Level 3 Est. Patient 17:12:27 CDT Hectro Love MD [facility] CPT-83791 Level 3 Est. Patient 15:30:32 CDT Hector Love MD [facility] CPT-68006 Level 3 Est. Patient 14:24:52 CDT Иван Mooney MD [facility] CPT-36367 Level 3 Est. Patient 14:08:38 [employer] Hector Love MD [facility] Procedures Code Procedure Name Date Entry Date Standard Description CPT-71921 First Vx Component - Ix admin via ID IM or jet inj without physician counseling 16:42:17 [employer] CPT-86050 Fluzone preservative free (>=3 yrs.) 16:42:17 [employer] 06/03 CPT-35209 Venipuncture Draw Fee 16:29:01 CDT CPT-85835 Chest 2V Frontal and Lat 16:23:56 CDT CPT-17138 Administration single or combination vaccine inc oral 13 :39:17 [employer] CPT-86822 Tdap 13:39:17 [employer]
--- OUTSIDE RECORDS SUMMARY | 2017-12-24 18:40 | XMS REPORT | Clinical Summary ---
Author Author Admin, LAMBERT Organization [facility] Address Unknown Phone Unavailable Allergies, Adverse Reactions, [...] puffs in each nostril daily FLUTICASONE PROPIONATE 92519525890 Active Hector Love MD Active AUGMENTIN 875-125 MG TAB 1 tab by mouth twice daily with food AMOXICILLIN-POT CLAVULANATE 03967035436 Active Hector Love MD Active LEVAQUIN 500 MG TABS 1 pill by mouth daily LEVOFLOXACIN 55136407711 No Longer Active Jen Crystal MD PhD Active LISINOPRIL 5 MG TABS 1.5 tab qd LISINOPRIL 60514546815 Active Jen Crystal MD PhD Active KETOCONAZOLE 2 % CREA apply twice a day to rash KETOCONAZOLE 93305425142 No Longer Active Hector Love MD Active AUGMENTIN 875-125 MG TAB 1 tab by mouth twice daily with food AMOXICILLIN-POT CLAVULANATE 09127400172 No Longer Active Иван Mooney MD Active LOTRISONE 0.05-1 % CREAM Apply twice a day to affected area 07/19 CLOTRIMAZOLE-BETAMETHASONE 04391241676 No Longer Active Иван Mooney MD Active PROGRAF 1 MG CAPS 4 tabs po bid TACROLIMUS 88487763726 Active Hector Love MD Active FEXOFENADINE HCL 180 MG TABS 1 Daily FEXOFENADINE HCL 26417005717 No Longer Active Hector Love MD Active PROGRAF 0.5 MG CAPS Take one by mouth daily with 1 mg TACROLIMUS 83000735301 No Longer Active Hector Love MD Active AMOXICILLIN 500 MG CAPS 2 po BID x 10 days AMOXICILLIN 54425512814 No Longer Active Hector Love MD Active RAPAMUNE 1 MG TABS 3 tabs in the am SIROLIMUS 61852379909 No Longer Active Hector Love MD Active AMOXICILLIN 500 MG CAPS 2 po BID x 10 days AMOXICILLIN 43194338561 No Longer Active Hector Love MD Active LORTAB 5 5-500 MG TABS 1/2 to 1 tablet by mouth every 4 hours as needed for pain HYDROCODONE-ACETAMINOPHEN 91644212406 No Longer Active Hector Love MD Active FLUTICASONE PROPIONATE 50 MCG/ACT SUSP INSTILL 2 SPRAYS IN EACH NOSTRIL Q D FLUTICASONE PROPIONATE 43686577181 No Longer Active Hector Love MD Active PROGRAF 1 MG CAPS 1 po bid TACROLIMUS 07560413038 No Longer Active Hector Love MD Active AMOXICILLIN 875 MG TABS 1 tab by mouth twice daily AMOXICILLIN 72461808711 No Longer Active Hector Love MD Active AMOXICILLIN 500 MG CAPS 2 po BID x 10 days AMOXICILLIN 63539179469 No Longer Active Hector Love MD Active AUGMENTIN 875-125 MG TAB 1 tab by mouth twice daily with food AMOXICILLIN-POT CLAVULANATE 57899820815 No Longer Active Hector Love MD Active AZITHROMYCIN 250 MG TABS 2 po qd x 1 day, then 1 po qd x 4 days AZITHROMYCIN 09449199583 No Longer Active Hector Love MD Active CETIRIZINE HCL 10 MG TABS 1 PO Q D CETIRIZINE HCL 26428077830 No Longer Active [place] Active PROGRAF 1 MG CAPS 1 po bid PROGRAF 1 MG CAPS 817150 TACROLIMUS Inactive FLUTICASONE PROPIONATE 50 MCG/ACT SUSP INSTILL 2 SPRAYS IN EACH NOSTRIL Q D FLUTICASONE PROPIONATE 50 MCG/ACT SUSP 362205 FLUTICASONE PROPIONATE Inactive LORTAB 5 5-500 MG TABS 1/2 to 1 tablet by mouth every 4 hours as needed for pain LORTAB 5 5-500 MG TABS HYDROCODONE- ACETAMINOPHEN Inactive RAPAMUNE 1 MG TABS 3 tabs in the am RAPAMUNE 1 MG TABS SIROLIMUS Inactive PROGRAF 0.5 MG CAPS Take one by mouth daily with 1 mg PROGRAF 0.5 MG CAPS 665250 TACROLIMUS Inactive FEXOFENADINE HCL 180 MG TABS 1 Daily FEXOFENADINE HCL 180 MG TABS 887277 FEXOFENADINE HCL Inactive LOTRISONE 0.05-1 % CREAM Apply twice a day to affected area 07/19 LOTRISONE 0.05-1 % CREAM 168429 CLOTRIMAZOLE-BETAMETHASONE Inactive KETOCONAZOLE 2 % CREA apply twice a day to rash KETOCONAZOLE 2 % CREA 262324 KETOCONAZOLE Inactive AMOXICILLIN 500 MG CAPS 2 po BID x 10 days AMOXICILLIN 500 MG CAPS 656538 AMOXICILLIN Inactive AMOXICILLIN 875 MG TABS 1 tab by mouth twice daily AMOXICILLIN 875 MG TABS 579341 AMOXICILLIN Inactive AMOXICILLIN 500 MG CAPS 2 po BID x 10 days AMOXICILLIN 500 MG CAPS 476798 AMOXICILLIN Inactive AMOXICILLIN 500 MG CAPS 2 po BID x 10 days AMOXICILLIN 500 MG CAPS 747138 AMOXICILLIN Inactive AUGMENTIN 875-125 MG TAB 1 tab by mouth twice daily with food AUGMENTIN 875-125 MG TAB 859393 AMOXICILLIN-POT CLAVULANATE Inactive LEVAQUIN 500 MG TABS 1 pill by mouth daily LEVAQUIN 500 MG TABS 362064 LEVOFLOXACIN Inactive Advance Directives Directive Description Start Date PERMISSION TO SHARE Immunizations Vaccine Administration Date Value Standard Description Seasonal influenza vaccine, injectable, preservative free, for > 3 years old ( Afluria, FluLaval, Fluzone, Fluvirin, Fluarix, Agriflu(>=18 yo)) Fluzone preservative free (>=3 yrs.) [[id number]] Influenza, seasonal, injectable, preservative free Adacel (Tetanus, reduced Diphtheria, and acellular Pertussis Immunization) Adacel [AFI163] tetanus toxoid, reduced diphtheria toxoid, and acellular [...] dipstick Negative Negative sodium, serum 139 mmol/L 823-567 8940/07/18 potassium, serum 4.5 mmol/L 3.5-5.2 chloride, serum [...] % 11.6-14.8 platelet count 210 10^3/MM^3 10*3/mm3 529-186 8055/07/18 erythrocyte (RBC) count 4.95 10^6/MM^3 10*6/mm3 4.69-6.13 [...] Negative Encounters Code Encounter Date Provider Facility CPT-36537 Level 3 Est. Patient 14:50:45 CDT Hector Love MD [facility][note 3]-[id number] Level 3 Est. Patient 21:17:30 CDT Jen Crystal MD PhD [facility][note 3]-66705 Level 3 Est. Patient 09:32:55 CDT Hector Love MD [facility][note 3]-23221 Level 3 Est. Patient 15:11:08 [employer] Иван Mooney MD [facility][note 3]-73084 Level 3 Est. Patient 16:38:53 [employer] Hector Love MD [facility] CPT-86303 Level 3 Est. Patient 15:46:05 CDT Hector Love MD [facility][note 3]-[id number] Level 3 Est. Patient 13:59:39 CDT Hector Love MD [facility] CPT-76908 Level 3 Est. Patient 14:44:46 [employer] Hector Love MD [facility]-89959 Level 3 Est. Patient 17:12:27 CDT Hector Love MD [facility] CPT-97598 Level 3 Est. Patient 15:30:32 CDT Hector Love MD [facility][note 3]-06568 Level 3 Est. Patient 14:24:52 CDT Иван Mooney MD [facility][note 3]-[id number] Level 3 Est. Patient 14:08:38 [employer] Hector Love MD [facility] Procedures Code Procedure Name Date Entry Date Standard Description CPT-61956 Administration single or combination vaccine inc oral 13 :57:23 CDT CPT-74167 Menactra Intramuscular Injectable 13:57:23 CDT CPT-83112 First Vx Component - Ix admin via ID IM or jet inj without physician counseling 16:42:17 [employer] CPT-04217 Fluzone preservative free (>=3 yrs.) 16:42:17 [employer] 06/03 CPT-74213 Venipuncture Draw Fee 16:29:01 CDT CPT-00707 Chest 2V Frontal and Lat 16:23:56 CDT CPT-11808 Administration single or combination vaccine inc oral 13 :39:17 [employer] CPT-86513 Tdap 13:39:17 [employer]
--- OUTSIDE RECORDS SUMMARY | 2017-12-24 18:40 | XMS REPORT | Clinical Summary ---
Author Author Admin, LAMBERT Organization [facility] Address Unknown Phone Unavailable Allergies, [...] TABS 1 pill by mouth daily LEVOFLOXACIN [id number] Active Jen Crystal MD PhD Active LISINOPRIL 5 MG TABS 1.5 tab qd LISINOPRIL 84918980762 Active Jen Crystal MD PhD Active KETOCONAZOLE 2 % CREA apply twice a day to rash KETOCONAZOLE 11185412075 No Longer Active Hector Love MD Active AUGMENTIN 875-125 MG TAB 1 tab by mouth twice daily with food AMOXICILLIN-POT CLAVULANATE 14318491861 No Longer Active Иван Mooney MD Active LOTRISONE 0.05-1 % CREAM Apply twice a day to affected area 07/19 CLOTRIMAZOLE-BETAMETHASONE 25669740676 No Longer Active Иван Mooney MD Active PROGRAF 1 MG CAPS 4 tabs po bid TACROLIMUS 91868645380 Active Hector Love MD Active FEXOFENADINE HCL 180 MG TABS 1 Daily FEXOFENADINE HCL 67468152924 No Longer Active Hector Love MD Active PROGRAF 0.5 MG CAPS Take one by mouth daily with 1 mg TACROLIMUS 99537274537 No Longer Active Hector Love MD Active AMOXICILLIN 500 MG CAPS 2 po BID x 10 days AMOXICILLIN 83343474524 No Longer Active Hector Love MD Active RAPAMUNE 1 MG TABS 3 tabs in the am SIROLIMUS 68830011730 No Longer Active Hector Love MD Active AMOXICILLIN 500 MG CAPS 2 po BID x 10 days AMOXICILLIN 95296550429 No Longer Active Hector Love MD Active LORTAB 5 5-500 MG TABS 1/2 to 1 tablet by mouth every 4 hours as needed for pain HYDROCODONE-ACETAMINOPHEN 67385685202 No Longer Active Hector Love MD Active FLUTICASONE PROPIONATE 50 MCG/ACT SUSP INSTILL 2 SPRAYS IN EACH NOSTRIL Q D FLUTICASONE PROPIONATE 07342819168 No Longer Active Hector Love MD Active PROGRAF 1 MG CAPS 1 po bid TACROLIMUS 98347047423 No Longer Active Hector Love MD Active AMOXICILLIN 875 MG TABS 1 tab by mouth twice daily AMOXICILLIN 40739525387 No Longer Active Hector Love MD Active AMOXICILLIN 500 MG CAPS 2 po BID x 10 days AMOXICILLIN 50596229638 No Longer Active Hector Love MD Active AUGMENTIN 875-125 MG TAB 1 tab by mouth twice daily with food AMOXICILLIN-POT CLAVULANATE 47247089490 No Longer Active Hector Love MD Active AZITHROMYCIN 250 MG TABS 2 po qd x 1 day, then 1 po qd x 4 days AZITHROMYCIN 28754176096 No Longer Active Hector Love MD Active CETIRIZINE HCL 10 MG TABS 1 PO Q D CETIRIZINE HCL 36174711911 No Longer Active [place] Active PROGRAF 1 MG CAPS 1 po bid PROGRAF 1 MG CAPS 103009 TACROLIMUS Inactive FLUTICASONE PROPIONATE 50 MCG/ACT SUSP INSTILL 2 SPRAYS IN EACH NOSTRIL Q D FLUTICASONE PROPIONATE 50 MCG/ACT SUSP 756397 FLUTICASONE PROPIONATE Inactive LORTAB 5 5-500 MG TABS 1/2 to 1 tablet by mouth every 4 hours as needed for pain LORTAB 5 5-500 MG TABS HYDROCODONE- ACETAMINOPHEN Inactive RAPAMUNE 1 MG TABS 3 tabs in the am RAPAMUNE 1 MG TABS SIROLIMUS Inactive PROGRAF 0.5 MG CAPS Take one by mouth daily with 1 mg PROGRAF 0.5 MG CAPS 985849 TACROLIMUS Inactive FEXOFENADINE HCL 180 MG TABS 1 Daily FEXOFENADINE HCL 180 MG TABS 285215 FEXOFENADINE HCL Inactive LOTRISONE 0.05-1 % CREAM Apply twice a day to affected area 07/19 LOTRISONE 0.05-1 % CREAM 446354 CLOTRIMAZOLE-BETAMETHASONE Inactive KETOCONAZOLE 2 % CREA apply twice a day to rash KETOCONAZOLE 2 % CREA 855206 KETOCONAZOLE Inactive AMOXICILLIN 500 MG CAPS 2 po BID x 10 days AMOXICILLIN 500 MG CAPS 174888 AMOXICILLIN Inactive AMOXICILLIN 875 MG TABS 1 tab by mouth twice daily AMOXICILLIN 875 MG TABS 616400 AMOXICILLIN Inactive AMOXICILLIN 500 MG CAPS 2 po BID x 10 days AMOXICILLIN 500 MG CAPS 827431 AMOXICILLIN Inactive AMOXICILLIN 500 MG CAPS 2 po BID x 10 days AMOXICILLIN 500 MG CAPS 060178 AMOXICILLIN Inactive AUGMENTIN 875-125 MG TAB 1 tab by mouth twice daily with food AUGMENTIN 875-125 MG TAB 724491 AMOXICILLIN-POT CLAVULANATE Inactive Advance Directives Directive Description Start Date PERMISSION TO SHARE Immunizations Vaccine Administration Date Value Standard Description Seasonal influenza vaccine, injectable, preservative free, for > 3 years old ( Afluria, FluLaval, Fluzone, Fluvirin, Fluarix, Agriflu(>=18 yo)) Fluzone preservative free (>=3 yrs.) [[id number]] Influenza, seasonal, injectable, preservative free Adacel (Tetanus, reduced Diphtheria, and acellular Pertussis Immunization) Adacel [[id number]] tetanus toxoid, reduced diphtheria toxoid, and acellular [...] Negative mg/dL Negative sodium, serum 139 mmol/L 413-798 9726/07/18 potassium, serum 4.5 mmol/L 3.5-5.2 chloride, serum [...] Negative Encounters Code Encounter Date Provider Facility CPT-94518 Level 3 Est. Patient 09:32:55 CDT Hector Love MD [facility] CPT-01766 Level 3 Est. Patient 15:11:08 PLATEN PRESS OPERATOR Иван Mooney MD [facility] CPT-47759 Level 3 Est. Patient 16:38:53 PLATEN PRESS OPERATOR Hector Love MD [facility] CPT-58520 Level 3 Est. Patient 15:46:05 CDT Hector Love MD [facility] CPT-82856 Level 3 Est. Patient 13:59:39 CDT Hector Love MD [facility] CPT-57694 Level 3 Est. Patient 14:44:46 PLATEN PRESS OPERATOR Hector Love MD [facility] CPT-92928 Level 3 Est. Patient 17:12:27 CDT Hector Love MD [facility] CPT-05706 Level 3 Est. Patient 15:30:32 CDT Hector Love MD [facility] CPT-35655 Level 3 Est. Patient 14:24:52 CDT Иван Mooney MD [facility] CPT-01644 Level 3 Est. Patient 14:08:38 PLATEN PRESS OPERATOR Hector Love MD [facility] Procedures Code Procedure Name Date Entry Date Standard Description CPT-57179 Administration single or combination vaccine inc oral 13 :57:23 CDT CPT-23519 Menactra Intramuscular Injectable 13:57:23 CDT CPT-51230 First Vx Component - Ix admin via ID IM or jet inj without physician counseling 16:42:17 PLATEN PRESS OPERATOR CPT-69849 Fluzone preservative free (>=3 yrs.) 16:42:17 PLATEN PRESS OPERATOR 06/03 CPT-97524 Venipuncture Draw Fee 16:29:01 CDT CPT-05225 Chest 2V Frontal and Lat 16:23:56 CDT CPT-28626 Administration single or combination vaccine inc oral 13 :39:17 PLATEN PRESS OPERATOR CPT-47945 Tdap 13:39:17 PLATEN PRESS OPERATOR
--- OUTSIDE RECORDS SUMMARY | 2017-12-24 18:41 | XMS REPORT | Clinical Summary ---
[...] Acute frontal sinusitis FH DIABETES ICD-V18.0 Inactive Hecotr Love MD BRONCHITIS, ACUTE ICD-466.0 Inactive Hector [...] puffs in each nostril daily FLUTICASONE PROPIONATE 29394033031 Active Hector Love MD Active AUGMENTIN 875-125 MG TAB 1 tab by mouth twice daily with food AMOXICILLIN-POT CLAVULANATE 87402827053 Active Hector Love MD Active LEVAQUIN 500 MG TABS 1 pill by mouth daily LEVOFLOXACIN 89337189534 No Longer Active Jen Crystal MD PhD Active LISINOPRIL 5 MG TABS 1.5 tab qd LISINOPRIL 35572948005 Active Jen Crystal MD PhD Active KETOCONAZOLE 2 % CREA apply twice a day to rash KETOCONAZOLE 18498126887 No Longer Active Hector Love MD Active AUGMENTIN 875-125 MG TAB 1 tab by mouth twice daily with food AMOXICILLIN-POT CLAVULANATE 82859348758 No Longer Active Иван Mooney MD Active LOTRISONE 0.05-1 % CREAM Apply twice a day to affected area 07/19 CLOTRIMAZOLE-BETAMETHASONE 40974087238 No Longer Active Иван Mooney MD Active PROGRAF 1 MG CAPS 4 tabs po bid TACROLIMUS 93566912789 Active Hector Love MD Active FEXOFENADINE HCL 180 MG TABS 1 Daily FEXOFENADINE HCL 48677503613 No Longer Active Hector Love MD Active PROGRAF 0.5 MG CAPS Take one by mouth daily with 1 mg TACROLIMUS 19151571957 No Longer Active Hector Love MD Active AMOXICILLIN 500 MG CAPS 2 po BID x 10 days AMOXICILLIN 03895339960 No Longer Active Hector Love MD Active RAPAMUNE 1 MG TABS 3 tabs in the am SIROLIMUS 51036629463 No Longer Active Hector Love MD Active AMOXICILLIN 500 MG CAPS 2 po BID x 10 days AMOXICILLIN 55031573403 No Longer Active Hector Love MD Active LORTAB 5 5-500 MG TABS 1/2 to 1 tablet by mouth every 4 hours as needed for pain HYDROCODONE-ACETAMINOPHEN 84810552193 No Longer Active Hector Love MD Active FLUTICASONE PROPIONATE 50 MCG/ACT SUSP INSTILL 2 SPRAYS IN EACH NOSTRIL Q D FLUTICASONE PROPIONATE 43178782805 No Longer Active Hector Love MD Active PROGRAF 1 MG CAPS 1 po bid TACROLIMUS 07117382439 No Longer Active Hector Love MD Active AMOXICILLIN 875 MG TABS 1 tab by mouth twice daily AMOXICILLIN 77495407869 No Longer Active Hector Love MD Active AMOXICILLIN 500 MG CAPS 2 po BID x 10 days AMOXICILLIN 07680754321 No Longer Active Hector Love MD Active AUGMENTIN 875-125 MG TAB 1 tab by mouth twice daily with food AMOXICILLIN-POT CLAVULANATE 04748316248 No Longer Active Hector Love MD Active AZITHROMYCIN 250 MG TABS 2 po qd x 1 day, then 1 po qd x 4 days AZITHROMYCIN 84976702316 No Longer Active Hector Love MD Active CETIRIZINE HCL 10 MG TABS 1 PO Q D CETIRIZINE HCL 54958923203 No Longer Active [place] Active PROGRAF 1 MG CAPS 1 po bid PROGRAF 1 MG CAPS 319779 TACROLIMUS Inactive FLUTICASONE PROPIONATE 50 MCG/ACT SUSP INSTILL 2 SPRAYS IN EACH NOSTRIL Q D FLUTICASONE PROPIONATE 50 MCG/ACT SUSP 094002 FLUTICASONE PROPIONATE Inactive LORTAB 5 5-500 MG TABS 1/2 to 1 tablet by mouth every 4 hours as needed for pain LORTAB 5 5-500 MG TABS HYDROCODONE- ACETAMINOPHEN Inactive RAPAMUNE 1 MG TABS 3 tabs in the am RAPAMUNE 1 MG TABS SIROLIMUS Inactive PROGRAF 0.5 MG CAPS Take one by mouth daily with 1 mg PROGRAF 0.5 MG CAPS 405687 TACROLIMUS Inactive FEXOFENADINE HCL 180 MG TABS 1 Daily FEXOFENADINE HCL 180 MG TABS 515446 FEXOFENADINE HCL Inactive LOTRISONE 0.05-1 % CREAM Apply twice a day to affected area 07/19 LOTRISONE 0.05-1 % CREAM 483314 CLOTRIMAZOLE-BETAMETHASONE Inactive KETOCONAZOLE 2 % CREA apply twice a day to rash KETOCONAZOLE 2 % CREA 120842 KETOCONAZOLE Inactive AMOXICILLIN 500 MG CAPS 2 po BID x 10 days AMOXICILLIN 500 MG CAPS 490815 AMOXICILLIN Inactive AMOXICILLIN 875 MG TABS 1 tab by mouth twice daily AMOXICILLIN 875 MG TABS 220549 AMOXICILLIN Inactive AMOXICILLIN 500 MG CAPS 2 po BID x 10 days AMOXICILLIN 500 MG CAPS 226835 AMOXICILLIN Inactive AMOXICILLIN 500 MG CAPS 2 po BID x 10 days AMOXICILLIN 500 MG CAPS 467621 AMOXICILLIN Inactive AUGMENTIN 875-125 MG TAB 1 tab by mouth twice daily with food AUGMENTIN 875-125 MG TAB 498229 AMOXICILLIN-POT CLAVULANATE Inactive LEVAQUIN 500 MG TABS 1 pill by mouth daily LEVAQUIN 500 MG TABS 591214 LEVOFLOXACIN Inactive Advance Directives Directive Description Start Date PERMISSION TO SHARE Immunizations Vaccine Administration Date Value Standard Description Seasonal influenza vaccine, injectable, preservative free, for > 3 years old ( Afluria, FluLaval, Fluzone, Fluvirin, Fluarix, Agriflu(>=18 yo)) Fluzone preservative free (>=3 yrs.) [[id number]] Influenza, seasonal, injectable, preservative free Adacel immunization Adacel [[id number]] tetanus toxoid, reduced diphtheria toxoid, and acellular [...] Value Unit Range Description blood pressure, diastolic 90 mm[Hg] BP [place] blood pressure, systolic 140 mm[Hg] BP sys pulse rate E&M 76 /min Heart rate temperature E&M 97.4 [degF] Body temperature weight E&M 233.56 [lb_av] Weight Measured blood pressure, diastolic 74 mm[Hg] BP [place] blood pressure, systolic 114 mm[Hg] BP sys height E&M 70.5 [in_us] Bdy height pulse rate E&M 86 /min Heart rate temperature E&M 98.1 [degF] Body temperature weight E&M 234 [lb_av] Weight Measured blood pressure, diastolic 35 mm[Hg] BP [place] blood pressure, systolic 68 mm[Hg] BP sys height E&M 70.25 [in_us] Bdy height temperature E&M 97.8 [degF] Body temperature weight E&M 232.50 [lb_av] Weight Measured blood pressure, diastolic 77 [...] temperature weight E&M 212 [lb_av] Weight Measured Diagnostic Results Date Name Value Unit Range Description Lab Report: CBC W/ DIFF - Hematology leukocyte count, blood 8.5 10*3/mm3 hemoglobin, blood 15.9 g/dL platelet count 12.1 10*3/mm3 Lab Report: CBC W/DIFF, Comp. Metabolic Panel, Thyroid Stimulating Hormo ... - Chemistry protein, total urine random Negative mg/dL Negative sodium, serum 139 mmol/L 569-809 1872/07/18 potassium, serum 4.5 mmol/L 3.5-5.2 chloride, serum [...] w/Rflx EBV, Myco Pneumo, RapidStrep Rflx/Cx - Microbiology Microbial identification kit, rapid strep method Negative-Throat Culture to Follow Negative Encounters Code Encounter Date Provider Facility CPT-81727 Level 3 Est. Patient 14:50:45 CDT Hector Love MD [facility] CPT-55297 Level 3 Est. Patient 21:17:30 CDT Jen Crystal MD PhD [facility] CPT-08397 Level 3 Est. Patient 09:32:55 CDT Hector Love MD [facility] CPT-67379 Level 3 Est. Patient 15:11:08 BOTTOM WORKER Иван Mooney MD [facility] CPT-22691 Level 3 Est. Patient 16:38:53 BOTTOM WORKER Hector Love MD [facility] CPT-29584 Level 3 Est. Patient 15:46:05 CDT Hector Love MD [facility] CPT-20928 Level 3 Est. Patient 13:59:39 CDT Hector Love MD [facility] CPT-33339 Level 3 Est. Patient 14:44:46 BOTTOM WORKER Hector Love MD [facility] CPT-96097 Level 3 Est. Patient 17:12:27 CDT Hector Love MD [facility] CPT-16198 Level 3 Est. Patient 15:30:32 CDT Hector Love MD [facility] CPT-38889 Level 3 Est. Patient 14:24:52 CDT Иван Mooney MD [facility] CPT-10530 Level 3 Est. Patient 14:08:38 BOTTOM WORKER Hector Love MD [facility] Procedures Code Procedure Name Date Entry Date Standard Description CPT-21173 Administration single or combination vaccine inc oral 13 :57:23 CDT CPT-53453 Menactra Intramuscular Injectable 13:57:23 CDT CPT-32984 First Vx Component - Ix admin via ID IM or jet inj without physician counseling 16:42:17 BOTTOM WORKER CPT-85959 Fluzone preservative free (>=3 yrs.) 16:42:17 BOTTOM WORKER 06/03 CPT-27334 Venipuncture Draw Fee 16:29:01 CDT CPT-40538 Chest 2V Frontal and Lat 16:23:56 CDT CPT-02607 Administration single or combination vaccine inc oral 13 :39:17 BOTTOM WORKER CPT-61844 Tdap 13:39:17 BOTTOM WORKER
--- OUTSIDE RECORDS SUMMARY | 2017-12-24 18:42 | XMS REPORT | Clinical Summary ---
Author Author Admin, LAMBERT Organization [facility] Address Unknown Phone Unavailable Allergies, Adverse [...] puffs in each nostril daily FLUTICASONE PROPIONATE 04514010373 Active Hector Love MD Active AUGMENTIN 875-125 MG TAB 1 tab by mouth twice daily with food AMOXICILLIN-POT CLAVULANATE 43770918040 Active Hector Love MD Active LEVAQUIN 500 MG TABS 1 pill by mouth daily LEVOFLOXACIN 13124358855 No Longer Active Jen Crystal MD PhD Active LISINOPRIL 5 MG TABS 1.5 tab qd LISINOPRIL 64270229112 Active Jen Crystal MD PhD Active KETOCONAZOLE 2 % CREA apply twice a day to rash KETOCONAZOLE 71698858438 No Longer Active Hector Love MD Active AUGMENTIN 875-125 MG TAB 1 tab by mouth twice daily with food AMOXICILLIN-POT CLAVULANATE 32637764669 No Longer Active Иван Mooney MD Active LOTRISONE 0.05-1 % CREAM Apply twice a day to affected area 07/19 CLOTRIMAZOLE-BETAMETHASONE 65902393947 No Longer Active Иван Mooney MD Active PROGRAF 1 MG CAPS 4 tabs po bid TACROLIMUS 57202711508 Active Hector Love MD Active FEXOFENADINE HCL 180 MG TABS 1 Daily FEXOFENADINE HCL 51288121423 No Longer Active Hector Love MD Active PROGRAF 0.5 MG CAPS Take one by mouth daily with 1 mg TACROLIMUS 47017058908 No Longer Active Hector Love MD Active AMOXICILLIN 500 MG CAPS 2 po BID x 10 days AMOXICILLIN 15927734150 No Longer Active Hector Love MD Active RAPAMUNE 1 MG TABS 3 tabs in the am SIROLIMUS 16907404397 No Longer Active Hector Love MD Active AMOXICILLIN 500 MG CAPS 2 po BID x 10 days AMOXICILLIN 20841854484 No Longer Active Hector Love MD Active LORTAB 5 5-500 MG TABS 1/2 to 1 tablet by mouth every 4 hours as needed for pain HYDROCODONE-ACETAMINOPHEN 58353733602 No Longer Active Hector Love MD Active FLUTICASONE PROPIONATE 50 MCG/ACT SUSP INSTILL 2 SPRAYS IN EACH NOSTRIL Q D FLUTICASONE PROPIONATE 36074157971 No Longer Active Hector Love MD Active PROGRAF 1 MG CAPS 1 po bid TACROLIMUS 62771307108 No Longer Active Hector Love MD Active AMOXICILLIN 875 MG TABS 1 tab by mouth twice daily AMOXICILLIN 72427403813 No Longer Active Hector Love MD Active AMOXICILLIN 500 MG CAPS 2 po BID x 10 days AMOXICILLIN 26402726919 No Longer Active Hector Love MD Active AUGMENTIN 875-125 MG TAB 1 tab by mouth twice daily with food AMOXICILLIN-POT CLAVULANATE 07729688595 No Longer Active Hector Love MD Active AZITHROMYCIN 250 MG TABS 2 po qd x 1 day, then 1 po qd x 4 days AZITHROMYCIN 01710243785 No Longer Active Hector Love MD Active CETIRIZINE HCL 10 MG TABS 1 PO Q D CETIRIZINE HCL 21999671481 No Longer Active [place] Active PROGRAF 1 MG CAPS 1 po bid PROGRAF 1 MG CAPS 049433 TACROLIMUS Inactive FLUTICASONE PROPIONATE 50 MCG/ACT SUSP INSTILL 2 SPRAYS IN EACH NOSTRIL Q D FLUTICASONE PROPIONATE 50 MCG/ACT SUSP 574769 FLUTICASONE PROPIONATE Inactive LORTAB 5 5-500 MG TABS 1/2 to 1 tablet by mouth every 4 hours as needed for pain LORTAB 5 5-500 MG TABS HYDROCODONE- ACETAMINOPHEN Inactive RAPAMUNE 1 MG TABS 3 tabs in the am RAPAMUNE 1 MG TABS SIROLIMUS Inactive PROGRAF 0.5 MG CAPS Take one by mouth daily with 1 mg PROGRAF 0.5 MG CAPS 418276 TACROLIMUS Inactive FEXOFENADINE HCL 180 MG TABS 1 Daily FEXOFENADINE HCL 180 MG TABS 485332 FEXOFENADINE HCL Inactive LOTRISONE 0.05-1 % CREAM Apply twice a day to affected area 07/19 LOTRISONE 0.05-1 % CREAM 254565 CLOTRIMAZOLE-BETAMETHASONE Inactive KETOCONAZOLE 2 % CREA apply twice a day to rash KETOCONAZOLE 2 % CREA 749199 KETOCONAZOLE Inactive AMOXICILLIN 500 MG CAPS 2 po BID x 10 days AMOXICILLIN 500 MG CAPS 788129 AMOXICILLIN Inactive AMOXICILLIN 875 MG TABS 1 tab by mouth twice daily AMOXICILLIN 875 MG TABS 076964 AMOXICILLIN Inactive AMOXICILLIN 500 MG CAPS 2 po BID x 10 days AMOXICILLIN 500 MG CAPS 569682 AMOXICILLIN Inactive AMOXICILLIN 500 MG CAPS 2 po BID x 10 days AMOXICILLIN 500 MG CAPS 141034 AMOXICILLIN Inactive AUGMENTIN 875-125 MG TAB 1 tab by mouth twice daily with food AUGMENTIN 875-125 MG TAB 430981 AMOXICILLIN-POT CLAVULANATE Inactive LEVAQUIN 500 MG TABS 1 pill by mouth daily LEVAQUIN 500 MG TABS 046741 LEVOFLOXACIN Inactive Advance Directives Directive Description Start Date PERMISSION TO SHARE Immunizations Vaccine Administration Date Value Standard Description Seasonal influenza vaccine, injectable, preservative free, for > 3 years old ( Afluria, FluLaval, Fluzone, Fluvirin, Fluarix, Agriflu(>=18 yo)) Fluzone preservative free (>=3 yrs.) [[id number]] Influenza, seasonal, injectable, preservative free Adacel (Tetanus, reduced Diphtheria, and acellular Pertussis Immunization) Adacel [[id number]] tetanus toxoid, reduced diphtheria toxoid, and acellular [...] Negative mg/dL Negative sodium, serum 139 mmol/L 910-959 3642/07/18 potassium, serum 4.5 mmol/L 3.5-5.2 chloride, serum [...] Negative Encounters Code Encounter Date Provider Facility CPT-20112 Level 3 Est. Patient 14:50:45 CDT Hector Love MD [facility]-33183 Level 3 Est. Patient 21:17:30 CDT Jen Crystal MD PhD [facility]-46877 Level 3 Est. Patient 09:32:55 CDT Hector Love MD [facility]-77493 Level 3 Est. Patient 15:11:08 SENIOR SUPPLY CHAIN ANALYST Иван Mooney MD [facility]-54097 Level 3 Est. Patient 16:38:53 SENIOR SUPPLY CHAIN ANALYST Hector Love MD [facility] CPT-01536 Level 3 Est. Patient 15:46:05 CDT Hector Love MD [facility]-76552 Level 3 Est. Patient 13:59:39 CDT Hector Love MD [facility] CPT-73442 Level 3 Est. Patient 14:44:46 SENIOR SUPPLY CHAIN ANALYST Hector Love MD [facility]-50012 Level 3 Est. Patient 17:12:27 CDT Hector Love MD [facility] CPT-18143 Level 3 Est. Patient 15:30:32 CDT Hector Love MD [facility]-57564 Level 3 Est. Patient 14:24:52 CDT Иван Mooney MD [facility]-25442 Level 3 Est. Patient 14:08:38 SENIOR SUPPLY CHAIN ANALYST Hector Love MD [facility] Procedures Code Procedure Name Date Entry Date Standard Description CPT-96181 Administration single or combination vaccine inc oral 13 :57:23 CDT CPT-53950 Menactra Intramuscular Injectable 13:57:23 CDT CPT-52695 First Vx Component - Ix admin via ID IM or jet inj without physician counseling 16:42:17 SENIOR SUPPLY CHAIN ANALYST CPT-03880 Fluzone preservative free (>=3 yrs.) 16:42:17 SENIOR SUPPLY CHAIN ANALYST 06/03 CPT-90663 Venipuncture Draw Fee 16:29:01 CDT CPT-69394 Chest 2V Frontal and Lat 16:23:56 CDT CPT-92641 Administration single or combination vaccine inc oral 13 :39:17 SENIOR SUPPLY CHAIN ANALYST CPT-57798 Tdap 13:39:17 SENIOR SUPPLY CHAIN ANALYST
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
--- OUTSIDE RECORDS SUMMARY | 2017-12-24 18:43 | XMS REPORT | Clinical Summary ---
Author Author Admin, LAMBERT Organization [facility] Address Unknown Phone Unavailable Allergies, Adverse Reactions, [...] MD KNEE SPRAIN, LEFT ICD-844.9 Inactive Hector oLve MD U R I ICD-465.9 Inactive Hector [...] TABS 1 pill by mouth daily LEVOFLOXACIN 92316984713 Active Jen Crystal MD PhD Active LISINOPRIL 5 MG TABS 1.5 tab qd LISINOPRIL 51817593526 Active Jen Crystal MD PhD Active KETOCONAZOLE 2 % CREA apply twice a day to rash KETOCONAZOLE 09954861994 No Longer Active Hector Love MD Active AUGMENTIN 875-125 MG TAB 1 tab by mouth twice daily with food AMOXICILLIN-POT CLAVULANATE 93168042949 No Longer Active Ивна Mooney MD Active LOTRISONE 0.05-1 % CREAM Apply twice a day to affected area 07/19 CLOTRIMAZOLE-BETAMETHASONE 31596400525 No Longer Active Иван Mooney MD Active PROGRAF 1 MG CAPS 4 tabs po bid TACROLIMUS 79663076072 Active Hector Love MD Active FEXOFENADINE HCL 180 MG TABS 1 Daily FEXOFENADINE HCL 51233251711 No Longer Active Hector Love MD Active PROGRAF 0.5 MG CAPS Take one by mouth daily with 1 mg TACROLIMUS 64412520743 No Longer Active Hector Love MD Active AMOXICILLIN 500 MG CAPS 2 po BID x 10 days AMOXICILLIN 78097929328 No Longer Active Hector Love MD Active RAPAMUNE 1 MG TABS 3 tabs in the am SIROLIMUS 97337778250 No Longer Active Hector Love MD Active AMOXICILLIN 500 MG CAPS 2 po BID x 10 days AMOXICILLIN 81195734983 No Longer Active Hector Love MD Active LORTAB 5 5-500 MG TABS 1/2 to 1 tablet by mouth every 4 hours as needed for pain HYDROCODONE-ACETAMINOPHEN 59207612636 No Longer Active Hector Love MD Active FLUTICASONE PROPIONATE 50 MCG/ACT SUSP INSTILL 2 SPRAYS IN EACH NOSTRIL Q D FLUTICASONE PROPIONATE 01868868589 No Longer Active Hector Love MD Active PROGRAF 1 MG CAPS 1 po bid TACROLIMUS 75777617798 No Longer Active Hector Love MD Active AMOXICILLIN 875 MG TABS 1 tab by mouth twice daily AMOXICILLIN 10254601335 No Longer Active Hector Love MD Active AMOXICILLIN 500 MG CAPS 2 po BID x 10 days AMOXICILLIN 14759587094 No Longer Active Hector Love MD Active AUGMENTIN 875-125 MG TAB 1 tab by mouth twice daily with food AMOXICILLIN-POT CLAVULANATE 57556112480 No Longer Active Hector Love MD Active AZITHROMYCIN 250 MG TABS 2 po qd x 1 day, then 1 po qd x 4 days AZITHROMYCIN 06194357664 No Longer Active Hector Love MD Active CETIRIZINE HCL 10 MG TABS 1 PO Q D CETIRIZINE HCL 74778701124 No Longer Active [place] Chongarger Active PROGRAF 1 MG CAPS 1 po bid PROGRAF 1 MG CAPS 752351 TACROLIMUS Inactive FLUTICASONE PROPIONATE 50 MCG/ACT SUSP INSTILL 2 SPRAYS IN EACH NOSTRIL Q D FLUTICASONE PROPIONATE 50 MCG/ACT SUSP 675253 FLUTICASONE PROPIONATE Inactive LORTAB 5 5-500 MG TABS 1/2 to 1 tablet by mouth every 4 hours as needed for pain LORTAB 5 5-500 MG TABS HYDROCODONE- ACETAMINOPHEN Inactive RAPAMUNE 1 MG TABS 3 tabs in the am RAPAMUNE 1 MG TABS SIROLIMUS Inactive PROGRAF 0.5 MG CAPS Take one by mouth daily with 1 mg PROGRAF 0.5 MG CAPS 979869 TACROLIMUS Inactive FEXOFENADINE HCL 180 MG TABS 1 Daily FEXOFENADINE HCL 180 MG TABS 140094 FEXOFENADINE HCL Inactive LOTRISONE 0.05-1 % CREAM Apply twice a day to affected area 07/19 LOTRISONE 0.05-1 % CREAM 790989 CLOTRIMAZOLE-BETAMETHASONE Inactive KETOCONAZOLE 2 % CREA apply twice a day to rash KETOCONAZOLE 2 % CREA 824612 KETOCONAZOLE Inactive AMOXICILLIN 500 MG CAPS 2 po BID x 10 days AMOXICILLIN 500 MG CAPS 925738 AMOXICILLIN Inactive AMOXICILLIN 875 MG TABS 1 tab by mouth twice daily AMOXICILLIN 875 MG TABS 052830 AMOXICILLIN Inactive AMOXICILLIN 500 MG CAPS 2 po BID x 10 days AMOXICILLIN 500 MG CAPS 831040 AMOXICILLIN Inactive AMOXICILLIN 500 MG CAPS 2 po BID x 10 days AMOXICILLIN 500 MG CAPS 799737 AMOXICILLIN Inactive AUGMENTIN 875-125 MG TAB 1 tab by mouth twice daily with food AUGMENTIN 875-125 MG TAB 630207 AMOXICILLIN-POT CLAVULANATE Inactive Advance Directives Directive Description Start Date PERMISSION TO SHARE Immunizations Vaccine Administration Date Value Standard Description Seasonal influenza vaccine, injectable, preservative free, for > 3 years old ( Afluria, FluLaval, Fluzone, Fluvirin, Fluarix, Agriflu(>=18 yo)) Fluzone preservative free (>=3 yrs.) [[id number]] Influenza, seasonal, injectable, preservative free Adacel (Tetanus, reduced Diphtheria, and acellular Pertussis Immunization) Adacel [ZUW102] tetanus toxoid, reduced diphtheria toxoid, and acellular [...] ... - Chemistry sodium, serum 139 mmol/L 800-333 3469/07/18 potassium, serum 4.5 mmol/L 3.5-5.2 chloride, serum [...] Negative Encounters Code Encounter Date Provider Facility CPT-18735 Level 3 Est. Patient 09:32:55 CDT Hector Love MD [facility] CPT-38250 Level 3 Est. Patient 15:11:[address] Иван Mooney MD [facility] CPT-37650 Level 3 Est. Patient 16:38:[address] JUDGE Hector Love MD [facility] CPT-43061 Level 3 Est. Patient 15:46:05 CDT Hector Love MD [facility] CPT-64297 Level 3 Est. Patient 13:59:39 CDT Hector Love MD [facility] CPT-15731 Level 3 Est. Patient 14:44:[address] Hector Love MD [facility] CPT-14600 Level 3 Est. Patient 17:12:27 CDT Hector Love MD [facility] CPT-86273 Level 3 Est. Patient 15:30:32 CDT Hector Love MD [facility] CPT-32639 Level 3 Est. Patient 14:24:52 CDT Иван Mooney MD [facility] CPT-51180 Level 3 Est. Patient 14:08:[address] JUDGE Hector Love MD [facility] Procedures Code Procedure Name Date Entry Date Standard Description CPT-36210 Administration single or combination vaccine inc oral 13 :57:23 CDT CPT-25944 Menactra Intramuscular Injectable 13:57:23 CDT CPT-46562 First Vx Component - Ix admin via ID IM or jet inj without physician counseling 16:42:[address] JUDGE CPT-74092 Fluzone preservative free (>=3 yrs.) 16:42:[address] JUDGE 06/03 CPT-73273 Venipuncture Draw Fee 16:29:01 CDT CPT-16111 Chest 2V Frontal and Lat 16:23:56 CDT CPT-33544 Administration single or combination vaccine inc oral 13 :39:[address] JUDGE CPT-67692 Tdap 13:39:[address] JUDGE
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
--- OUTSIDE RECORDS SUMMARY | 2017-12-24 18:45 | XMS REPORT | Clinical Summary ---
Author Author Admin, LAMBERT Organization [facility] Address Unknown Phone Allergies, Adverse Reactions, Alerts [...] mouth twice daily with food AMOXICILLIN-POT CLAVULANATE [id number] No Longer Active Иван Mooney MD Active KETOCONAZOLE 2 % CREA apply twice a day to rash KETOCONAZOLE [id number] Active Иван Mooney MD Active LOTRISONE 0.05-1 % CREAM Apply twice a day to affected area 07/19 CLOTRIMAZOLE-BETAMETHASONE 58925724021 No Longer Active Иван Mooney MD Active PROGRAF 1 MG CAPS 4 tabs po bid TACROLIMUS 34834945978 Active Hector Love MD Active FEXOFENADINE HCL 180 MG TABS 1 Daily FEXOFENADINE HCL 91528076070 No Longer Active Hector Love MD Active PROGRAF 0.5 MG CAPS Take one by mouth daily with 1 mg TACROLIMUS 58700217228 No Longer Active Hector Love MD Active AMOXICILLIN 500 MG CAPS 2 po BID x 10 days AMOXICILLIN 98777523165 No Longer Active Hector Love MD Active RAPAMUNE 1 MG TABS 3 tabs in the am SIROLIMUS 36760613519 No Longer Active Hector Love MD Active AMOXICILLIN 500 MG CAPS 2 po BID x 10 days AMOXICILLIN 40406007424 No Longer Active Hector Love MD Active LORTAB 5 5-500 MG TABS 1/2 to 1 tablet by mouth every 4 hours as needed for pain HYDROCODONE-ACETAMINOPHEN 44429131947 No Longer Active Hector Love MD Active FLUTICASONE PROPIONATE 50 MCG/ACT SUSP INSTILL 2 SPRAYS IN EACH NOSTRIL Q D FLUTICASONE PROPIONATE 18632615807 No Longer Active Hector Love MD Active PROGRAF 1 MG CAPS 1 po bid TACROLIMUS 65164572494 No Longer Active Hector Love MD Active AMOXICILLIN 875 MG TABS 1 tab by mouth twice daily AMOXICILLIN 47230106155 No Longer Active Hector Love MD Active AMOXICILLIN 500 MG CAPS 2 po BID x 10 days AMOXICILLIN 73663735226 No Longer Active Hector Love MD Active AUGMENTIN 875-125 MG TAB 1 tab by mouth twice daily with food AMOXICILLIN-POT CLAVULANATE 70961068053 No Longer Active Hector Love MD Active AZITHROMYCIN 250 MG TABS 2 po qd x 1 day, then 1 po qd x 4 days AZITHROMYCIN 74763447892 No Longer Active Hector Love MD Active LISINOPRIL 5 MG TABS 1 1/2 tab qd LISINOPRIL 89558297437 Active Hector Love MD Active CETIRIZINE HCL 10 MG TABS 1 PO Q D CETIRIZINE HCL 67656108239 No Longer Active [place] Active PROGRAF 1 MG CAPS 1 po bid PROGRAF 1 MG CAPS 083900 TACROLIMUS Inactive FLUTICASONE PROPIONATE 50 MCG/ACT SUSP INSTILL 2 SPRAYS IN EACH NOSTRIL Q D FLUTICASONE PROPIONATE 50 MCG/ACT SUSP 512443 FLUTICASONE PROPIONATE Inactive LORTAB 5 5-500 MG TABS 1/2 to 1 tablet by mouth every 4 hours as needed for pain LORTAB 5 5-500 MG TABS HYDROCODONE- ACETAMINOPHEN Inactive RAPAMUNE 1 MG TABS 3 tabs in the am RAPAMUNE 1 MG TABS SIROLIMUS Inactive PROGRAF 0.5 MG CAPS Take one by mouth daily with 1 mg PROGRAF 0.5 MG CAPS 437318 TACROLIMUS Inactive FEXOFENADINE HCL 180 MG TABS 1 Daily FEXOFENADINE HCL 180 MG TABS 539786 FEXOFENADINE HCL Inactive LOTRISONE 0.05-1 % CREAM Apply twice a day to affected area 07/19 LOTRISONE 0.05-1 % CREAM 493301 CLOTRIMAZOLE-BETAMETHASONE Inactive AMOXICILLIN 500 MG CAPS 2 po BID x 10 days AMOXICILLIN 500 MG CAPS 444504 AMOXICILLIN Inactive AMOXICILLIN 875 MG TABS 1 tab by mouth twice daily AMOXICILLIN 875 MG TABS 139779 AMOXICILLIN Inactive AMOXICILLIN 500 MG CAPS 2 po BID x 10 days AMOXICILLIN 500 MG CAPS 262039 AMOXICILLIN Inactive AMOXICILLIN 500 MG CAPS 2 po BID x 10 days AMOXICILLIN 500 MG CAPS 305601 AMOXICILLIN Inactive AUGMENTIN 875-125 MG TAB 1 tab by mouth twice daily with food AUGMENTIN 875-125 MG TAB 548539 AMOXICILLIN-POT CLAVULANATE Inactive Advance Directives Directive Description Start Date PERMISSION TO SHARE Immunizations Vaccine Administration Date Value Standard Description Seasonal influenza vaccine, injectable, preservative free, for > 3 years old ( Afluria, FluLaval, Fluzone, Fluvirin, Fluarix, Agriflu(>=18 yo)) Fluzone preservative free (>=3 yrs.) [[id number]] Influenza, seasonal, injectable, preservative free Adacel immunization Adacel [[id number]] tetanus toxoid, reduced diphtheria toxoid, and acellular [...] red blood cell distribution width 12.2 % red blood cell distribution width 13.2 % mean corpuscular hemoglobin, RBC 30.6 pg mean corpuscular volume, RBC 85.2 fL hematocrit, blood 43.2 % hemoglobin, blood 15.5 g/dL Lab Report: CBC W/ DIFF - Hematology leukocyte count, blood 8.5 10*3/mm3 hemoglobin, blood 15.9 g/dL platelet count 12.1 10*3/mm3 Lab Report: CBC W/DIFF, Comp. Metabolic Panel, RapidStrep Rflx/Cx, UADIP ... - Chemistry sodium, serum 137 mmol/L 073-828 8076/08/22 potassium, serum 4.5 mmol/L 3.5-5.2 chloride, serum [...] Panel, RapidStrep Rflx/Cx, UADIP ... - Hematology neutrophils as percent of blood leukocytes 80.7 % 42.2-75.2 monocytes as percent of blood leukocytes 2.0 % 1.7-9.3 lymphocytes as percent of blood leukocytes 15.7 % 20.5-51.1 erythrocyte (RBC) count 5.13 10^6/MM^3 10*6/mm3 4.69-6.13 hemoglobin, blood 15.6 g/dL 13.5-17.5 leukocyte count, blood 6.9 10^3/MM^3 10*3/mm3 4.6-10.2 hematocrit, blood 46.4 % 41.0-53.0 mean corpuscular [...] Negative Encounters Code Encounter Date Provider Facility CPT-03668 Level 3 Est. Patient 15:11:08 LIFE AGENT [facility] CPT-35144 Level 3 Est. Patient 16:38:53 LIFE AGENT Hector Love MD [facility] CPT-62577 Level 3 Est. Patient 15:46:05 CDT Hector Love MD [facility] CPT-62912 Level 3 Est. Patient 13:59:39 CDT Hector Love MD [facility] CPT-10208 Level 3 Est. Patient 14:44:46 LIFE AGENT Hector Love MD [facility] CPT-61230 Level 3 Est. Patient 17:12:27 CDT Hector Love MD [facility] CPT-87863 Level 3 Est. Patient 15:30:32 CDT Hector Love MD [facility] CPT-52820 Level 3 Est. Patient 14:24:52 CDT Иван Mooney MD [facility] CPT-98620 Level 3 Est. Patient 14:08:38 LIFE AGENT Hector Love MD [facility] Procedures Code Procedure Name Date Entry Date Standard Description CPT-98567 First Vx Component - Ix admin via ID IM or jet inj without physician counseling 16:42:17 LIFE AGENT CPT-31587 Fluzone preservative free (>=3 yrs.) 16:42:17 LIFE AGENT 06/03 CPT-52500 Venipuncture Draw Fee 16:29:01 CDT CPT-36963 Chest 2V Frontal and Lat 16:23:56 CDT CPT-27280 Administration single or combination vaccine inc oral 13 :39:17 LIFE AGENT CPT-38533 Tdap 13:39:17 LIFE AGENT
--- OUTSIDE RECORDS SUMMARY | 2017-12-24 18:46 | XMS REPORT | Clinical Summary ---
Author Author Admin, LAMBERT Organization [facility] Address Unknown Phone Allergies, Adverse Reactions, Alerts [...] Hector Love MD SINUSITIS, ACUTE ICD-461.9 Inactive Hecotr Love MD FEVER UNSPECIFIED ICD-780.60 Inactive Hector Love MD Medication List Medication Instructions Start Date Stop Date Generic Name NDC Status Provider Patient Instruction AUGMENTIN 875-125 MG TAB 1 tab by mouth twice daily with food AMOXICILLIN-POT CLAVULANATE [id number] No Longer Active Иван Mooney MD Active KETOCONAZOLE 2 % CREA apply twice a day to rash KETOCONAZOLE 17502500105 Active Иван Mooney MD Active LOTRISONE 0.05-1 % CREAM Apply twice a day to affected area 07/19 CLOTRIMAZOLE-BETAMETHASONE 28350266280 No Longer Active Иван Mooney MD Active PROGRAF 1 MG CAPS 4 tabs po bid TACROLIMUS 76648872314 Active Hector Love MD Active FEXOFENADINE HCL 180 MG TABS 1 Daily FEXOFENADINE HCL 38056991188 No Longer Active Hector Love MD Active PROGRAF 0.5 MG CAPS Take one by mouth daily with 1 mg TACROLIMUS 89252925312 No Longer Active Hector Love MD Active AMOXICILLIN 500 MG CAPS 2 po BID x 10 days AMOXICILLIN 85954876191 No Longer Active Hector Love MD Active RAPAMUNE 1 MG TABS 3 tabs in the am SIROLIMUS 03175964749 No Longer Active Hector Love MD Active AMOXICILLIN 500 MG CAPS 2 po BID x 10 days AMOXICILLIN 52192807638 No Longer Active Hector Love MD Active LORTAB 5 5-500 MG TABS 1/2 to 1 tablet by mouth every 4 hours as needed for pain HYDROCODONE-ACETAMINOPHEN 87782606004 No Longer Active Hector Love MD Active FLUTICASONE PROPIONATE 50 MCG/ACT SUSP INSTILL 2 SPRAYS IN EACH NOSTRIL Q D FLUTICASONE PROPIONATE 01852932976 No Longer Active Hector Love MD Active PROGRAF 1 MG CAPS 1 po bid TACROLIMUS 88646557650 No Longer Active Hector Love MD Active AMOXICILLIN 875 MG TABS 1 tab by mouth twice daily AMOXICILLIN 27180903538 No Longer Active Hector Love MD Active AMOXICILLIN 500 MG CAPS 2 po BID x 10 days AMOXICILLIN 36004916571 No Longer Active Hector Love MD Active AUGMENTIN 875-125 MG TAB 1 tab by mouth twice daily with food AMOXICILLIN-POT CLAVULANATE 37612535335 No Longer Active Hector Love MD Active AZITHROMYCIN 250 MG TABS 2 po qd x 1 day, then 1 po qd x 4 days AZITHROMYCIN 63315646164 No Longer Active Hector Love MD Active LISINOPRIL 5 MG TABS 1 1/2 tab qd LISINOPRIL 94034096991 Active Hector Love MD Active CETIRIZINE HCL 10 MG TABS 1 PO Q D CETIRIZINE HCL 17681366992 No Longer Active [place] Active PROGRAF 1 MG CAPS 1 po bid PROGRAF 1 MG CAPS 940329 TACROLIMUS Inactive FLUTICASONE PROPIONATE 50 MCG/ACT SUSP INSTILL 2 SPRAYS IN EACH NOSTRIL Q D FLUTICASONE PROPIONATE 50 MCG/ACT SUSP 224440 FLUTICASONE PROPIONATE Inactive LORTAB 5 5-500 MG TABS 1/2 to 1 tablet by mouth every 4 hours as needed for pain LORTAB 5 5-500 MG TABS HYDROCODONE- ACETAMINOPHEN Inactive RAPAMUNE 1 MG TABS 3 tabs in the am RAPAMUNE 1 MG TABS SIROLIMUS Inactive PROGRAF 0.5 MG CAPS Take one by mouth daily with 1 mg PROGRAF 0.5 MG CAPS 546455 TACROLIMUS Inactive FEXOFENADINE HCL 180 MG TABS 1 Daily FEXOFENADINE HCL 180 MG TABS 397307 FEXOFENADINE HCL Inactive LOTRISONE 0.05-1 % CREAM Apply twice a day to affected area 07/19 LOTRISONE 0.05-1 % CREAM 048829 CLOTRIMAZOLE-BETAMETHASONE Inactive AMOXICILLIN 500 MG CAPS 2 po BID x 10 days AMOXICILLIN 500 MG CAPS 445718 AMOXICILLIN Inactive AMOXICILLIN 875 MG TABS 1 tab by mouth twice daily AMOXICILLIN 875 MG TABS 711002 AMOXICILLIN Inactive AMOXICILLIN 500 MG CAPS 2 po BID x 10 days AMOXICILLIN 500 MG CAPS 197418 AMOXICILLIN Inactive AMOXICILLIN 500 MG CAPS 2 po BID x 10 days AMOXICILLIN 500 MG CAPS 963112 AMOXICILLIN Inactive AUGMENTIN 875-125 MG TAB 1 tab by mouth twice daily with food AUGMENTIN 875-125 MG TAB 538429 AMOXICILLIN-POT CLAVULANATE Inactive Advance Directives Directive Description Start Date PERMISSION TO SHARE Immunizations Vaccine Administration Date Value Standard Description Seasonal influenza vaccine, injectable, preservative free, for > 3 years old ( Afluria, FluLaval, Fluzone, Fluvirin, Fluarix, Agriflu(>=18 yo)) Fluzone preservative free (>=3 yrs.) [[id number]] Influenza, seasonal, injectable, preservative free Adacel immunization Adacel [[id number]] tetanus toxoid, reduced diphtheria toxoid, and acellular [...] Negative mg/dL Negative sodium, serum 137 mmol/L 338-934 1742/08/22 potassium, serum 4.5 mmol/L 3.5-5.2 chloride, serum [...] Negative Encounters Code Encounter Date Provider Facility CPT-31391 Level 3 Est. Patient 15:11:08 PEDIATRIC RN Иван Mooney MD [facility] CPT-52120 Level 3 Est. Patient 16:38:53 PEDIATRIC RN Hector Love MD [facility] CPT-43344 Level 3 Est. Patient 15:46:05 CDT Hector Love MD [facility] CPT-23545 Level 3 Est. Patient 13:59:39 CDT Hector Love MD [facility] CPT-79797 Level 3 Est. Patient 14:44:46 PEDIATRIC RN Hector Love MD [facility] CPT-69542 Level 3 Est. Patient 17:12:27 CDT Hector Love MD [facility] CPT-61909 Level 3 Est. Patient 15:30:32 CDT Hector Love MD [facility] CPT-32287 Level 3 Est. Patient 14:24:52 CDT Иван Mooney MD [facility] CPT-01707 Level 3 Est. Patient 14:08:38 PEDIATRIC RN Hector Love MD [facility] Procedures Code Procedure Name Date Entry Date Standard Description CPT-76220 First Vx Component - Ix admin via ID IM or jet inj without physician counseling 16:42:17 PEDIATRIC RN CPT-48546 Fluzone preservative free (>=3 yrs.) 16:42:17 PEDIATRIC RN 06/03 CPT-56252 Venipuncture Draw Fee 16:29:01 CDT CPT-51921 Chest 2V Frontal and Lat 16:23:56 CDT CPT-85306 Administration single or combination vaccine inc oral 13 :39:17 PEDIATRIC RN CPT-19346 Tdap 13:39:17 PEDIATRIC RN
--- OUTSIDE RECORDS SUMMARY | 2017-12-24 18:46 | XMS REPORT | Clinical Summary ---
Author Author Admin, LAMBERT Organization [facility] Address Unknown Phone Allergies, Adverse Reactions, Alerts [...] mouth twice daily with food AMOXICILLIN-POT CLAVULANATE 66340295211 No Longer Active Иван Mooney MD Active KETOCONAZOLE 2 % CREA apply twice a day to rash KETOCONAZOLE 53018443265 Active Иван Mooney MD Active LOTRISONE 0.05-1 % CREAM Apply twice a day to affected area 07/19 CLOTRIMAZOLE-BETAMETHASONE 71168262695 No Longer Active Иван Mooney MD Active PROGRAF 1 MG CAPS 4 tabs po bid TACROLIMUS 38170862432 Active Hector Love MD Active FEXOFENADINE HCL 180 MG TABS 1 Daily FEXOFENADINE HCL 09300248961 No Longer Active Hector Love MD Active PROGRAF 0.5 MG CAPS Take one by mouth daily with 1 mg TACROLIMUS 62208592214 No Longer Active Hector Love MD Active AMOXICILLIN 500 MG CAPS 2 po BID x 10 days AMOXICILLIN 22967158053 No Longer Active Hector Love MD Active RAPAMUNE 1 MG TABS 3 tabs in the am SIROLIMUS 14713468555 No Longer Active Hector Love MD Active AMOXICILLIN 500 MG CAPS 2 po BID x 10 days AMOXICILLIN 22188325649 No Longer Active Hector Love MD Active LORTAB 5 5-500 MG TABS 1/2 to 1 tablet by mouth every 4 hours as needed for pain HYDROCODONE-ACETAMINOPHEN 55868860469 No Longer Active Hector Love MD Active FLUTICASONE PROPIONATE 50 MCG/ACT SUSP INSTILL 2 SPRAYS IN EACH NOSTRIL Q D FLUTICASONE PROPIONATE 29943233705 No Longer Active Hector Love MD Active PROGRAF 1 MG CAPS 1 po bid TACROLIMUS 05871308848 No Longer Active Hector Lvoe MD Active AMOXICILLIN 875 MG TABS 1 tab by mouth twice daily AMOXICILLIN 58385099576 No Longer Active Hector Love MD Active AMOXICILLIN 500 MG CAPS 2 po BID x 10 days AMOXICILLIN 65088442352 No Longer Active Hector Love MD Active AUGMENTIN 875-125 MG TAB 1 tab by mouth twice daily with food AMOXICILLIN-POT CLAVULANATE 55863970848 No Longer Active Hector Love MD Active AZITHROMYCIN 250 MG TABS 2 po qd x 1 day, then 1 po qd x 4 days AZITHROMYCIN 97386092559 No Longer Active Hector Love MD Active LISINOPRIL 5 MG TABS 1 1/2 tab qd LISINOPRIL 04077201932 Active Hector Love MD Active CETIRIZINE HCL 10 MG TABS 1 PO Q D CETIRIZINE HCL 54863051664 No Longer Active [place] Active PROGRAF 1 MG CAPS 1 po bid PROGRAF 1 MG CAPS 816026 TACROLIMUS Inactive FLUTICASONE PROPIONATE 50 MCG/ACT SUSP INSTILL 2 SPRAYS IN EACH NOSTRIL Q D FLUTICASONE PROPIONATE 50 MCG/ACT SUSP 547691 FLUTICASONE PROPIONATE Inactive LORTAB 5 5-500 MG TABS 1/2 to 1 tablet by mouth every 4 hours as needed for pain LORTAB 5 5-500 MG TABS HYDROCODONE- ACETAMINOPHEN Inactive RAPAMUNE 1 MG TABS 3 tabs in the am RAPAMUNE 1 MG TABS SIROLIMUS Inactive PROGRAF 0.5 MG CAPS Take one by mouth daily with 1 mg PROGRAF 0.5 MG CAPS 353971 TACROLIMUS Inactive FEXOFENADINE HCL 180 MG TABS 1 Daily FEXOFENADINE HCL 180 MG TABS 064449 FEXOFENADINE HCL Inactive LOTRISONE 0.05-1 % CREAM Apply twice a day to affected area 07/19 LOTRISONE 0.05-1 % CREAM 562742 CLOTRIMAZOLE-BETAMETHASONE Inactive AMOXICILLIN 500 MG CAPS 2 po BID x 10 days AMOXICILLIN 500 MG CAPS 879907 AMOXICILLIN Inactive AMOXICILLIN 875 MG TABS 1 tab by mouth twice daily AMOXICILLIN 875 MG TABS 426356 AMOXICILLIN Inactive AMOXICILLIN 500 MG CAPS 2 po BID x 10 days AMOXICILLIN 500 MG CAPS 332586 AMOXICILLIN Inactive AMOXICILLIN 500 MG CAPS 2 po BID x 10 days AMOXICILLIN 500 MG CAPS 929214 AMOXICILLIN Inactive AUGMENTIN 875-125 MG TAB 1 tab by mouth twice daily with food AUGMENTIN 875-125 MG TAB 147680 AMOXICILLIN-POT CLAVULANATE Inactive Advance Directives Directive Description Start Date PERMISSION TO SHARE Immunizations Vaccine Administration Date Value Standard Description Seasonal influenza vaccine, injectable, preservative free, for > 3 years old ( Afluria, FluLaval, Fluzone, Fluvirin, Fluarix, Agriflu(>=18 yo)) Fluzone preservative free (>=3 yrs.) [[id number]] Influenza, seasonal, injectable, preservative free Adacel immunization Adacel [[id number]] tetanus toxoid, reduced diphtheria toxoid, and acellular [...] Negative mg/dL Negative sodium, serum 137 mmol/L 168-061 7357/08/22 potassium, serum 4.5 mmol/L 3.5-5.2 chloride, serum [...] Negative Encounters Code Encounter Date Provider Facility CPT-78093 Level 3 Est. Patient 15:11:08 FIELD SERVICE ANALYST Иван Mooney MD [facility] CPT-39202 Level 3 Est. Patient 16:38:53 FIELD SERVICE ANALYST Hector Love MD [facility] CPT-01785 Level 3 Est. Patient 15:46:05 CDT Hector Love MD [facility] CPT-87491 Level 3 Est. Patient 13:59:39 CDT Hector Love MD [facility] CPT-33860 Level 3 Est. Patient 14:44:46 FIELD SERVICE ANALYST Hector Love MD [facility] CPT-22106 Level 3 Est. Patient 17:12:27 CDT Hector Love MD [facility] CPT-07656 Level 3 Est. Patient 15:30:32 CDT Hector Love MD [facility] CPT-46661 Level 3 Est. Patient 14:24:52 CDT Иван Mooney MD [facility] CPT-82537 Level 3 Est. Patient 14:08:38 FIELD SERVICE ANALYST Hector Love MD [facility] Procedures Code Procedure Name Date Entry Date Standard Description CPT-21666 First Vx Component - Ix admin via ID IM or jet inj without physician counseling 16:42:17 FIELD SERVICE ANALYST CPT-83517 Fluzone preservative free (>=3 yrs.) 16:42:17 FIELD SERVICE ANALYST 06/03 CPT-22777 Venipuncture Draw Fee 16:29:01 CDT CPT-43088 Chest 2V Frontal and Lat 16:23:56 CDT CPT-81738 Administration single or combination vaccine inc oral 13 :39:17 FIELD SERVICE ANALYST CPT-40776 Tdap 13:39:17 FIELD SERVICE ANALYST
--- OUTSIDE RECORDS SUMMARY | 2017-12-24 18:47 | XMS REPORT | Continuity of Care Document ---
Author Author [facility] Address Unknown Phone Unavailable Allergies Active Description [...] Yes Rocephin Drug N/A N/A Yes ceftriaxone [id number] Drug Allergy Unknown N/A 08/13/2012 Yes promethazine [id number] Drug Allergy Unknown N/A 08/13/2012 Yes ceftriaxone [id number] Drug Allergy Unknown N/A 11/06/2017 Yes ibuprofen [id number] Drug Allergy Unknown N/A 11/06/2017 Yes mycin mycin Unknown N/A 11/06/2017 Yes promethazine [id number] Drug Allergy Unknown N/A 11/06/2017 Yes tylenol and benadryl tylenol and benadryl Unknown N/A 11/06/2017 Medications There is no data. Problems Date [...] MD Z68.34 Body Mass Index 34.0-34.9 Adult 11/09/2017 DEON CANTRELL MD Ot L23.9 ALLERGIC CONTACT DERMATITIS, UNSPECIFIED 11/09/2017 DEON CANTRELL MD Ot R21 RASH AND OTHER NONSPECIFIC SKIN ERUPTION 11/09/2017 DEON CANTRELL MD Ot Z88.0 ALLERGY STATUS TO PENICILLIN 11/09/2017 DEON CANTRELL MD Ot Z88.6 ALLERGY STATUS TO ANALGESIC AGENT STATUS 11/09/2017 DEON CANTRELL MD Ot Z88.8 ALLERGY STATUS TO OTH DRUG/MEDS/BIOL SUB 11/09/2017 DEON CANTRELL MD Ot Z94.4 LIVER TRANSPLANT STATUS 11/09/2017 DEON CANTRELL MD Ot Z95.2 PRESENCE OF PROSTHETIC HEART VALVE Procedures Code [place] [id number] SPECIAL SUPPLIES JULIO GONZALES, SAUL R 09/16/2011 [id number] HETEROPHILE ANTIBODIES 01/17/2015 V2020 Vision sv[employer] frames purchases 06/05/2016 22801 CULTURE LUZ ANDERSON 12/29/2016 61777 EYE EXAM ESTABLISHED PAT 04/27/2017 02159 REFRACTION 04/27/2017 V2020 Vision sv[employer] frames purchases [...] RAPID - 03/12/15 00:00 INFLRAP N Negative Complete blood count (CBC) with automated white blood cell (WBC) differential - 11/06/17 02:25 Blood leukocytes automated count (number/volume) 11.7 10*3/uL 4.3-11.0 Blood erythrocytes automated count (number/volume) 4.74 10*6/uL 4.35-5.85 Venous blood hemoglobin measurement (mass/volume) 14.5 g/dL 13.3-17.7 Blood hematocrit (volume fraction) 40 % 40-54 Automated erythrocyte mean corpuscular volume 84 [foz_us] 80-99 Automated erythrocyte mean corpuscular hemoglobin (mass per erythrocyte) 31 pg 25-34 Automated erythrocyte mean corpuscular hemoglobin concentration measurement ( mass/volume) 36 g/dL 32-36 Automated erythrocyte distribution width ratio 13.0 % 10.0-14.5 Automated blood platelet count (count/volume) 227 10*3/uL 130-400 Automated blood platelet mean volume measurement 10.5 [foz_us] 7.4-10.4 Automated blood neutrophils/100 leukocytes 55 % 42-75 Automated blood lymphocytes/100 leukocytes 33 % 12-44 Blood monocytes/100 leukocytes 11 % 0-12 Automated blood eosinophils/100 leukocytes 2 % 0-10 Automated blood basophils/100 leukocytes 0 % 0-10 Blood neutrophils automated count (number/volume) 6.4 10*3 1.8-7.8 Blood lymphocytes automated count (number/volume) 3.8 10*3 1.0-4.0 Blood monocytes automated count (number/volume) 1.3 10*3 0.0-1.0 Automated eosinophil count 0.2 10*3/uL 0.0-0.3 Automated blood basophil count (count/volume) 0.0 10*3/uL 0.0-0.1 PT panel in platelet poor plasma by coagulation assay - 11/06/17 02:25 Prothrombin time (PT) in platelet poor plasma by coagulation assay 13.2 s 12.2-14.7 INR in platelet poor plasma or blood by coagulation assay 1.0 0.8-1.4 Activated partial thromboplastin time (aPTT) in platelet poor plasma bycoagulation assay - 11/06/17 02:25 Activated partial thromboplastin time (aPTT) in platelet poor plasma bycoagulation assay 26 s 24-35 Comprehensive metabolic panel - 11/06/17 02:25 Serum or plasma sodium measurement (moles/volume) 137 mmol/L 135-145 Serum or plasma potassium measurement (moles/volume) 4.1 mmol/L 3.6-5.0 Serum or plasma chloride measurement (moles/volume) 104 mmol/L 98-107 Carbon dioxide 21 mmol/L 21-32 Serum or plasma anion gap determination (moles/volume) 12 mmol/L 5-14 Serum or plasma urea nitrogen measurement (mass/volume) 13 mg/dL 7-18 Serum or plasma creatinine measurement (mass/volume) 0.78 mg/dL 0.60-1.30 Serum or plasma urea nitrogen/creatinine mass ratio 17 NRG Serum or plasma creatinine measurement with calculation of estimated glomerular filtration rate > NRG Serum or plasma glucose measurement (mass/volume) 117 mg/dL 70-105 Serum or plasma calcium measurement (mass/volume) 9.5 mg/dL 8.5-10.1 Serum or plasma total bilirubin measurement (mass/volume) 1.3 mg/dL 0.1-1.0 Serum or plasma alkaline phosphatase measurement (enzymatic activity/volume) 50 U/L 40-136 Serum or plasma aspartate aminotransferase measurement (enzymatic activity/ volume) 30 U/L 5-34 Serum or plasma alanine aminotransferase measurement (enzymatic activity/volume ) 54 U/L 0-55 Serum or plasma protein measurement (mass/volume) 7.4 g/dL 6.4-8.2 Serum or plasma albumin measurement (mass/volume) 4.4 g/dL 3.2-4.5 Magnesium - 11/06/17 02:25 Magnesium 2.2 mg/dL 1.8-2.4 Lipase - 11/06/17 02:25 Lipase 22 U/L 8-78 Streptococcus pyogenes antigen detection - 11/06/17 02:30 Streptococcus pyogenes antigen detection NEGATIVE NEGATIVE Bacterial throat culture - 11/06/17 02:30 Bacterial throat culture NBS NRG Complete urinalysis with reflex to culture - 11/06/17 03:08 Urine color determination YELLOW NRG Urine clarity determination CLEAR NRG Urine pH measurement by test strip 7 5-9 Specific gravity of urine by test strip 1.005 1.016- 1.022 Urine protein assay by test strip, semi-quantitative NEGATIVE NEGATIVE Urine glucose detection by automated test strip NEGATIVE NEGATIVE Erythrocytes detection in urine sediment by light microscopy NEGATIVE NEGATIVE Urine ketones detection by automated test strip NEGATIVE NEGATIVE Urine nitrite detection by test strip NEGATIVE NEGATIVE Urine total bilirubin detection by test strip NEGATIVE NEGATIVE Urine urobilinogen measurement by automated test strip (mass/volume) NORMAL NORMAL Urine leukocyte esterase detection by dipstick NEGATIVE NEGATIVE Automated urine sediment erythrocyte count by microscopy (number/high power field) NONE NRG Automated urine sediment leukocyte count by microscopy (number/high power field ) NONE NRG Bacteria detection in urine sediment by light microscopy NEGATIVE NRG Squamous epithelial cells detection in urine sediment by light microscopy RARE NRG Crystals detection in urine sediment by light microscopy PRESENT NRG Casts detection in urine sediment by light microscopy NONE NRG Mucus detection in urine sediment by light microscopy NEGATIVE NRG Complete urinalysis with reflex to culture NO NRG Amorphous sediment detection in urine sediment by light microscopy FEW DAWIT PHOSPHATE NRG Urine drug screening test - 11/06/17 03:08 Urine phencyclidine detection by screening method NEGATIVE NEGATIVE Urine benzodiazepines detection by screening method NEGATIVE NEGATIVE Urine cocaine detection NEGATIVE NEGATIVE Urine amphetamines detection by screening method NEGATIVE NEGATIVE Urine methamphetamine detection by screening method NEGATIVE NEGATIVE Urine cannabinoids detection by screening method NEGATIVE NEGATIVE Urine opiates detection by screening method NEGATIVE NEGATIVE Urine barbiturates detection NEGATIVE NEGATIVE Screening urine tricyclic antidepressants detection NEGATIVE NEGATIVE Urine methadone detection by screening method NEGATIVE NEGATIVE Urine oxycodone detection NEGATIVE NEGATIVE Urine propoxyphene detection NEGATIVE NEGATIVE Encounters ACCT No. Visit Date/Time Discharge Status Pt. Type Provider Facility Loc./Unit Complaint [id number] 12/29/2016 17:02:00 12/29/2016 17:02:00 DIS Outpatient ALYSSA THOMPSON [facility] LAB [id number] 09/16/2011 13:24:00 Document Registration [id number] 09/09/2017 09:27:01 ACT Unknown Ivan GONZALES, Hector KSWeRanulfo 09/09/2017 13:39:48 ACT Document Registration [id number] 07/24/2017 22:54:00 07/25/2017 00:28:00 DIS Emergency BBEETO SANTANA [facility] ED ED visit [id number] 01/14/2017 17:08:00 01/14/2017 18:30:00 DIS Emergency ALEJO HILL [facility] ED chest pain, tighness, fatigue [id number] 11/06/2017 00:54:00 11/06/2017 03:27:00 DIS Outpatient ÓSCAR GONZALES, DEON [facility] ER RASH BOTH LEGS,PT STS HAD LIVER TRANSPLANT IN 2001 [id number] 04/27/2017 09:30:00 Document Registration [id number] 04/27/2017 00:00:00 Document Registration [id number] 06/05/2016 00:00:00 Document Registration [id number] 06/20/2015 00:15:00 06/20/2015 02:00:00 DIS Emergency ATA KRISHNAN [facility] EMR [id number] 03/12/2015 22:08:00 03/13/2015 00:45:00 DIS Emergency ALEJO DOTSON [facility] EMR [id number] 01/17/2015 17:44:00 01/17/2015 17:44:00 DIS Outpatient DILYGHECTOR [facility]- [id number] 04/16/2014 00:00:00 Document Registration [id number] 04/16/2014 00:00:00 Document Registration [id number] 10/04/2016 02:00:00 10/04/2016 03:05:00 DIS Emergency SAUL HERNANDEZ [facility] ER POSSIBLE INSECT BITE [id number] 06/12/2016 21:25:00 06/12/2016 23:10:00 DIS Emergency ZARA [facility] ER N/V [id number] 06/11/2016 13:25:00 06/11/2016 14:35:00 DIS Emergency PERI FLYNN APRN [facility] ER SORE THROAT [id number] 07/06/2017 23:11:00 Document Registration [id number] 11/12/2015 10:06:00 Document Registration [id number] 08/27/2015 09:45:00 Document Registration [id number] 05/17/2015 11:34:00 Document Registration [id number] 02/21/2015 07:41:00 Document Registration [id number] 08/30/2014 09:13:00 Document Registration [id number] 06/05/2014 09:50:00 Document Registration [id number] 05/08/2014 11:22:00 Document Registration [id number] 01/17/2014 10:18:00 Document Registration [id number] 12/06/2013 13:31:00 Document Registration [id number] 10/27/2013 12:01:00 Document Registration [id number] 08/12/2013 07:43:00 Document Registration [id number] 07/20/2013 15:10:00 Document Registration [id number] 05/17/2013 10:35:00 Document Registration [id number] 02/21/2013 07:17:00 Document Registration [id number] 02/14/2013 07:16:00 Document Registration [id number] 02/01/2013 07:08:00 Document Registration [id number] 01/26/2013 15:25:00 Document Registration [id number] 01/26/2013 07:02:00 Document Registration [id number] 01/18/2013 07:13:00 Document Registration [id number] 01/10/2013 08:09:00 Document Registration [id number] 01/05/2013 06:35:00 Document Registration [id number] 11/29/2012 09:14:00 Document Registration [id number] 09/18/2012 10:45:00 Document Registration [id number] 06/18/2012 11:54:00 Document Registration [id number] 05/31/2012 08:27:00 Document Registration [id number] 04/28/2012 12:00:00 Document Registration [id number] 04/27/2012 12:15:00 Document Registration [id number] 04/13/2012 10:33:00 Document Registration [id number] 03/30/2012 10:55:00 Document Registration [id number] 03/09/2012 07:45:00 Document Registration [id number] 03/02/2012 08:00:00 Document Registration
[2017-12-24 18:48] LABS: BASOPHILS % (AUTO) 0 % (0-10); EOSINOPHILS # (AUTO) 0.4 10^3/uL (0.0-0.3); EOSINOPHILS % (AUTO) 4 % (0-10); HEMATOCRIT 44 % (40-54); HEMOGLOBIN 15.8 G/DL (13.3-17.7); LYMPHOCYTES % (AUTO) 27 % (12-44); MEAN CORPUSCULAR HEMOGLOBIN 30 PG (25-34); MEAN CORPUSCULAR HGB CONC 36 G/DL (32-36); MEAN CORPUSCULAR VOLUME 83 FL (80-99); MEAN PLATELET VOLUME 10.2 FL (7.4-10.4); MONOCYTES # (AUTO) 1.1 X 10^3 (0.0-1.0); MONOCYTES % (AUTO) 11 % (0-12); NEUTROPHILS # (AUTO) 6.3 X 10^3 (1.8-7.8); NEUTROPHILS % (AUTO) 58 % (42-75); PLATELET COUNT 264 10^3/uL (130-400); RED BLOOD COUNT 5.31 10^6/uL (4.35-5.85); RED CELL DISTRIBUTION WIDTH 13.1 % (10.0-14.5); WHITE BLOOD COUNT 10.9 10^3/uL (4.3-11.0)
[2017-12-24 19:02] LABS: ALANINE AMINOTRANSFERASE 47 U/L (0-55); ALKALINE PHOSPHATASE 56 U/L (40-136); BILIRUBIN,TOTAL 1.7 MG/DL (0.1-1.0); BUN/CREATININE RATIO 13; CALCIUM 9.6 MG/DL (8.5-10.1); CARBON DIOXIDE 23 MMOL/L (21-32); CHLORIDE 104 MMOL/L (98-107); CREATININE SERUM 0.79 MG/DL (0.60-1.30); GFR ESTIMATED > 60; GLUCOSE 105 MG/DL (70-105); POTASSIUM 3.9 MMOL/L (3.6-5.0); SODIUM 136 MMOL/L (135-145); TOTAL PROTEIN 8.7 GM/DL (6.4-8.2)
--- NOTE | 2017-12-24 19:36 | ED EENT ---
History of Present Illness General Chief Complaint: Oral/Throat Problems Stated Complaint: FATIGUE, MUSCLE WEAKNESS, FEVER Nursing Triage Note: TO ROOM C/O SORETHROAT AND FEVER SINCE THURSDAY. WITH MUSCLE PAIN. HAS HAD A LIVER TRANSPLANT IN 2001 History of Present Illness Date Seen by Provider: Dec 24, 2017 Time Seen by Provider: 17:47 Initial Comments Patient is a 22-year-old male who presents to emergency room with complaints sore throat, fever, generalized body aches that started on 12/21/17. He reports that he's also had nasal congestion and sinus drainage. He denies any nausea or vomiting. He states that he really needs a work note because he had to call in 2 days this week. Timing/Duration: gradual Severity: mild Prearrival Treatment: over the counter meds Associated Symptoms: No cough, No drooling, No ear drainage; fever, nasal congestion/drainage, sore throat; No voice change Allergies and Home Medications Allergies Coded Allergies: ceftriaxone (Verified Allergy, Unknown, 11/06/17) ibuprofen (Verified Allergy, Unknown, 11/06/17) promethazine (Verified Allergy, Unknown, 11/06/17) Uncoded Allergies: mycin (Allergy, Unknown, 11/06/17) tylenol and benadryl (Allergy, Unknown, 11/06/17) can take seperately but not together Home Medications Ondansetron 4 Mg Tab.rapdis, 4 MG PO Q6H PRN for NAUSEA/VOMITING Prescribed by: DEON CANTRELL on 11/06/17 0311 Patient Home Medication List Home Medication List Reviewed: Yes Review of Systems Constitutional: see HPI, chills, fever Throat: see HPI, pain; denies muffled, denies painful swallowing, denies difficulty with fluids All Other Systems Reviewed Negative Unless Noted: Yes Past Kjiivnc-Tnhkoc-Hlqilu Hx Past Med/Social Hx: Reviewed Nursing Past Med/Soc Hx Patient Social History Alcohol Use: Denies Use Recreational Drug Use: No Recent Foreign Travel: No Contact w/Someone Who Travel: No Recent Infectious Disease Expo: No Past Medical History Surgeries: Yes (liver transplant, valve replacement) Respiratory: No Cardiac: No Neurological: No Genitourinary: No Gastrointestinal: Yes (liver transplant) Endocrine: No HEENT: No Cancer: No Psychosocial: No Integumentary: No Blood Disorders: No Family Medical History Reviewed Nursing Family Hx Physical Exam Vital Signs Vital Signs - First Documented 12/24/17 17:30 Temp 98.4 Pulse 88 Resp 18 B/P (MAP) 130/89 (103) Pulse Ox 98 O2 Delivery Room Air Height, Weight, BMI Height: 5'11.00" Weight: 250lbs. oz. 113.895739he; BMI Method:Stated General Appearance: WD/WN, no apparent distress Eyes: bilateral eye normal inspection, bilateral eye PERRL, bilateral eye EOMI Ears: bilateral ear auricle normal, bilateral ear canal normal, bilateral ear TM normal Nose: normal inspection Mouth/Throat: normal mouth inspection, pharynx normal; No pharynx swelling, No tonsillar exudate, No tonsillar swelling Neck: non-tender, full range of motion, supple Cardiovascular: regular rate, rhythm, no edema, no gallop, no JVD, no murmur Respiratory: chest non-tender, lungs clear, normal breath sounds, no respiratory distress, no accessory muscle use Gastrointestinal: normal bowel sounds, non tender, soft, no organomegaly, no pulsatile mass Neurologic/Psychiatric: alert, normal mood/affect, oriented x 3 Skin: normal color, warm/dry Progress/Results/Core Measures Results/Orders Lab Results My Orders Vital Signs/I&O Blood Pressure Mean: 103 Progress Progress Note : Progress Note I have seen and evaluated the patient. I have informed him of normal laboratory findings. I informed him I could not give him a work note for his previous days missed at work. He agrees with plans for close follow up with his PCP and plan of care, return precautions were given. Departure Impression Primary Impression: Viral infection Disposition: 01 HOME, SELF-CARE Condition: Stable/Unchanged Departure-Patient Inst. Decision time for Depature: 19:34 Referrals: TRINI FRAIRE MD (PCP/Family) Primary Care Physician Patient Instructions: Viral Pharyngitis (DC) Add. Discharge Instructions: Continue to use ibuprofen as directed for pain and fever. Follow-up with the doctor within 1 week for recheck. Return back to the emergency room for worsening symptoms or any other concerns as needed. All discharge instructions reviewed with patient and/or family. Voiced understanding. Work/School Note: Work Release Form Date Seen in the Emergency Department: Dec 24, 2017 Return to Work: Dec 26, 2017 Restrictions: No Restrictions VICENTE PRADO Dec 24, 2017 19:36
[2017-12-24 19:41] VITALS: BP 126/79
== END 2017-12-24 19:41 | disposition home or self-care (01) ==
LOC: EDUNIT# 17:11 → ER 17:12
DX: B34.9 Viral infection, unspecified (principal); Z88.6 Allergy status to analgesic agent; Z88.1 Allergy status to other antibiotic agents; Z88.8 Allergy status to other drugs, medicaments and biological substances; Z94.4 Liver transplant status; Z95.2 Presence of prosthetic heart valve
CPT/HCPCS: 36415; 80053; 85025; 86308; 87430; 99283

== ENCOUNTER 2018-01-26 23:49 | Emergency (ER) | payer MEDICAID, OTHER ==
[~2018-01-26] VITALS: Ht 180.3 cm; Wt 111.1 kg
[~2018-01-26 23:49] MED LIST changes: +TACROLIMUS
[2018-01-27] MEDS ORDERED: RX-TRAMADOL 50 MG (ULTRAM) TAB PPK#4 PO STA (00:53)
[2018-01-27] MEDS ORDERED: TRAM-42 PO (01:11)
--- NOTE | 2018-01-27 01:11 | ED Lower Extremity ---
General Chief Complaint: Lower Extremity Stated Complaint: RT KNEE PAIN-WC Nursing Triage Note: Pt brought to rm 8 by pt's certified wellness program manager from [facility] where the pt works Pt states R knee was injured when stepping off a ladder at approximately 0430 Thursday morning. Pt states it felt as if knee hyperextended. Pt states he then continued working until 0700. Pain continued to worsen throughout the day. Nursing Sepsis Screen: No Definite Risk Source: patient Exam Limitations: no limitations History of Present Illness Date Seen by Provider: Jan 27, 2018 Time Seen by Provider: 00:05 Initial Comments PT ARRIVES VIA POV C/O RIGHT KNEE PAIN STATES HE HYPEREXTENDED HIS RIGHT KNEE WHILE STEPPING OFF A LADDER AT WORK AT [employer] AROUND 0430 YESTERDAY C/O SEVERE PAIN WITH EXTENSION OF RIGHT KNEE, HAS MODERATE PAIN WITH FLEXION OF KNEE STATES HE DID NOT REPORT THIS TO HIS EMPLOYER UNTIL TODAY STATES IT WAS MANAGEABLE YESTERDAY, BUT TONIGHT WHEN HE GOT TO WORK, "IT WAS IMMOBILIZING" AND HE COULD NOT WORK HAD TYLENOL 1 GRAM AT 1430 TODAY PT HAS HISTORY OF RIGHT KNEE PROBLEMS-SPRAINS/EFFUSION/HEMARTHROSIS--HAD FLUID DRAINED OFF IT BEFORE. NO PRIOR SURGERY ON KNEE. PCP: DR. FRAIRE, [facility] [place] Allergies and Home Medications Allergies Coded Allergies: ceftriaxone (Verified Allergy, Unknown, 11/06/17) ibuprofen (Verified Allergy, Unknown, 11/06/17) promethazine (Verified Allergy, Unknown, 11/06/17) Uncoded Allergies: mycin (Allergy, Unknown, 11/06/17) tylenol and benadryl (Allergy, Unknown, 11/06/17) can take seperately but not together Home Medications Ondansetron 4 Mg Tab.rapdis, 4 MG PO Q6H PRN for NAUSEA/VOMITING Prescribed by: DEON CANTRELL on 11/06/17 0311 Tramadol HCl 50 Mg Tablet, 50 MG PO Q4H Prescribed by: PERI ARDON on 01/27/18 0111 Patient Home Medication List Home Medication List Reviewed: Yes Review of Systems Constitutional: no symptoms reported Musculoskeletal: see HPI Skin: no symptoms reported Psychiatric/Neurological: No Symptoms Reported Past Nzmxfkl-Tbzvcn-Nfymnm Hx Patient Social History Alcohol Use: Denies Use Recreational Drug Use: No Smoking Status: Never a Smoker 2nd Hand Smoke Exposure: No Recent Foreign Travel: No Contact w/Someone Who Travel: No Recent Infectious Disease Expo: No Past Medical History Surgeries: Yes (MITRAL VALVE REPAIR; SURGERY FOR SUBAORTIC STENOSIS; LIVER TRANSPLANT 2001; KASAI PROCEDURE FOR BILIARY ATRESIA) Cardiac, Liver Transplant Respiratory: No Cardiac: Yes (MITRAL VALVE STENOSIS--S/P REPAIR; SUBAORTIC STENOSIS-S/P REPAIR) Congenital Heart Disease, Hypertension, Valvular Heart Disease Neurological: No Genitourinary: No Gastrointestinal: Yes (BILIARY ATRESIA; S/P KASAI PROCEDURE; S/P LIVER TRANSPLANT) Endocrine: No HEENT: No Cancer: No Psychosocial: No Integumentary: No Blood Disorders: No Physical Exam Vital Signs Vital Signs - First Documented 01/27/18 00:02 Temp 98.3 Pulse 100 Resp 15 B/P (MAP) 125/85 (98) Pulse Ox 98 O2 Delivery Room Air Capillary Refill : Less Than 3 Seconds Height, Weight, BMI Height: 5'11.00" Weight: 245lbs. oz. 111.883525gr; BMI Method:Stated General Appearance: WD/WN, no apparent distress Hips: right hip non-tender, right hip normal range of motion Legs: right leg non-tender, right leg normal inspection, right leg normal range of motion, right leg no evidence of injury Knees: left knee non-tender, left knee normal inspection, left knee normal range of motion, left knee no evidence of injury; right knee bone tenderness, right knee joint effusion, right knee pain, right knee soft tissue tenderness, right knee swelling, right knee other (LIMITED ROM ; UNABLE TO DETERMINE LIGAMENT LAXITY DUE TO PAIN AND SWELLING) Ankles: right ankle non-tender, right ankle normal inspection, right ankle normal range of motion, right ankle no evidence of injury Feet: right foot non-tender, right foot normal inspection, right foot normal range of motion, right foot no evidence of injury Neurologic/Tendon: normal sensation, normal motor functions, normal tendon functions, other (MOTOR/SENSORY/VASCULAR INTACT) Neurologic/Psychiatric: 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 organ 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 II-XII nml as tested, no motor/sensory deficits, alert, normal mood/affect, oriented x 3 Skin: normal color, warm/dry Procedures/Interventions Splinting and Joint Reduction : Chaitanya wrap: Yes Immobilizers: 19 inch Knee Ordered: Crutches Progress/Results/Core Measures Results/Orders My Orders Orders - PERI ARDON DO Knee, Right, 3 Views (01/27/18 00:12) Chaitanya Bandage (01/27/18 00:53) Crutches (01/27/18 00:53) Knee Immobilizer (01/27/18 00:53) Rx-Tramadol Hcl (Rx-Ultram) (01/27/18 00:53) Vital Signs/I&O 01/27/18 01/27/18 00:02 01:40 Temp 98.3 98.3 Pulse 100 100 Resp 15 15 B/P (MAP) 125/85 (98) 125/85 (98) Pulse Ox 98 98 O2 Delivery Room Air Room Air Blood Pressure Mean: 98 Diagnostic Imaging Comments XRAYS RIGHT KNEE--NO ACUTE BONY INJURY, SOFT TISSUE SWELLING--PENDING RADIOLOGIST REVIEW Departure Impression Primary Impression: Right knee sprain Disposition: 01 HOME, SELF-CARE Condition: Stable Departure-Patient Inst. Referrals: TRINI FRAIRE MD (PCP/Family) Primary Care Physician Patient Instructions: Going Up and Down Curbs or Stairs With a Walker or Crutches, How to Use Crutches, Knee Immobilizer (DC), Knee Sprain (DC) Add. Discharge Instructions: ICE TO AREA AT 20 MINUTE INTERVALS CHAITANYA WRAP, IMMOBILIZER AND CRUTCHES AT ALL TIMES FOLLOW UP WITH OCCUPATIONAL HEALTH TOMORROW FOR FURTHER CARE All discharge instructions reviewed with patient and/or family. Voiced understanding. Scripts Tramadol HCl (Ultram) 50 Mg Tablet 50 MG PO Q4H, #20 TAB Prov: PERI ARDON DO 01/27/18 PERI ARDON DO Jan 27, 2018 01:11
--- OUTSIDE RECORDS SUMMARY | 2018-01-27 01:28 | XMS REPORT | Continuity of Care Document ---
Author Author [facility] Address Unknown Phone Unavailable Allergies Active [...] Yes Rocephin Drug N/A N/A Yes ceftriaxone [id number] Drug Allergy Unknown N/A 08/13/2012 Yes promethazine [id number] Drug Allergy Unknown N/A 08/13/2012 Yes ceftriaxone [id number] Drug Allergy Unknown N/A 11/06/2017 Yes ibuprofen [id number] Drug Allergy Unknown N/A 11/06/2017 Yes mycin mycin Unknown N/A 11/06/2017 Yes promethazine [id number] Drug Allergy Unknown N/A 11/06/2017 Yes tylenol [...] MD Z20.828 Exposure to mononucleosis 12/29/2016 LUZ MONTEIL J02.9 Acute pharyngitis, unspecified 01/15/2017 Hector Love [...] MD Z68.34 Body Mass Index 34.0-34.9 Adult 11/06/2017 DEON CANTRELL MD Ot L23.9 ALLERGIC CONTACT DERMATITIS, UNSPECIFIED 11/06/2017 DEON CANTRELL MD Ot R21 RASH AND OTHER NONSPECIFIC SKIN ERUPTION 11/06/2017 DEON CANTRELL MD J Ot Z88.0 ALLERGY STATUS TO PENICILLIN 11/06/2017 DEON CANTRELL MD J Ot Z88.6 ALLERGY STATUS TO ANALGESIC AGENT STATUS 11/06/2017 DEON CANTRELL MD J Ot Z88.8 ALLERGY STATUS TO OTH DRUG/MEDS/BIOL SUB 11/06/2017 DEON CANTRELL MD J Ot Z94.4 LIVER TRANSPLANT STATUS 11/06/2017 DEON CANTRELL MD J Ot Z95.2 PRESENCE OF PROSTHETIC HEART VALVE 11/09/2017 DEON CANTRELL MD Ot L23.9 ALLERGIC CONTACT DERMATITIS, UNSPECIFIED 11/09/2017 DEON CANTRELL MD Ot R21 RASH AND OTHER NONSPECIFIC SKIN ERUPTION 11/09/2017 DEON CANTRELL MD J Ot Z88.0 ALLERGY STATUS TO PENICILLIN 11/09/2017 DEON CANTRELL MD J Ot Z88.6 ALLERGY STATUS TO ANALGESIC AGENT STATUS 11/09/2017 DEON CANTRELL MD J Ot Z88.8 ALLERGY STATUS TO OTH DRUG/MEDS/BIOL SUB 11/09/2017 JOSE CANTRELL MDUS J Ot Z94.4 LIVER TRANSPLANT STATUS 11/09/2017 JOSE CANTRELL MDUS J Ot Z95.2 PRESENCE OF PROSTHETIC HEART VALVE 12/24/2017 Ot B34.9 VIRAL INFECTION, UNSPECIFIED 12/24/2017 Ot J02.9 ACUTE PHARYNGITIS, UNSPECIFIED 12/24/2017 Ot Z88.1 ALLERGY STATUS TO OTHER ANTIBIOTIC AGENT 12/24/2017 Ot Z88.6 ALLERGY STATUS TO ANALGESIC AGENT STATUS 12/24/2017 Ot Z88.8 ALLERGY STATUS TO OTH DRUG/MEDS/BIOL SUB 12/24/2017 Ot Z94.4 LIVER TRANSPLANT STATUS 12/24/2017 Ot Z95.2 PRESENCE OF PROSTHETIC HEART VALVE Procedures Code Description [place] [address] SPECIAL SUPPLIES JULIO GONZALES, SAUL R 09/16/2011 23273 HETEROPHILE ANTIBODIES 01/17/2015 V2020 [employer] sv[employer] frames purchases 06/05/2016 35956 CULTURE OTHR FRANK THOMPSON, LUZ 12/29/2016 27618 EYE EXAM ESTABLISHED PAT 04/27/2017 50635 REFRACTION 04/27/2017 V2020 [employer] sv[employer] frames purchases [...] NEGATIVE NEGATIVE Urine propoxyphene detection NEGATIVE NEGATIVE Streptococcus pyogenes antigen detection - 12/24/17 18:10 Streptococcus pyogenes antigen detection NEGATIVE NEGATIVE Comprehensive metabolic panel - 12/24/17 18:30 Serum or plasma sodium measurement (moles/volume) 136 mmol/L 135-145 Serum or plasma potassium measurement (moles/volume) 3.9 mmol/L 3.6-5.0 Serum or plasma chloride measurement (moles/volume) 104 mmol/L 98-107 Carbon dioxide 23 mmol/L 21-32 Serum or plasma anion gap determination (moles/volume) 9 mmol/L 5-14 Serum or plasma urea nitrogen measurement (mass/volume) 10 mg/dL 7-18 Serum or plasma creatinine measurement (mass/volume) 0.79 mg/dL 0.60-1.30 Serum or plasma urea nitrogen/creatinine mass ratio 13 NRG Serum or plasma creatinine measurement with calculation of estimated glomerular filtration rate > NRG Serum or plasma glucose measurement (mass/volume) 105 mg/dL 70-105 Serum or plasma calcium measurement (mass/volume) 9.6 mg/dL 8.5-10.1 Serum or plasma total bilirubin measurement (mass/volume) 1.7 mg/dL 0.1-1.0 Serum or plasma alkaline phosphatase measurement (enzymatic activity/volume) 56 U/L 40-136 Serum or plasma aspartate aminotransferase measurement (enzymatic activity/ volume) 25 U/L 5-34 Serum or plasma alanine aminotransferase measurement (enzymatic activity/volume ) 47 U/L 0-55 Serum or plasma protein measurement (mass/volume) 8.7 g/dL 6.4-8.2 Serum or plasma albumin measurement (mass/volume) 5.0 g/dL 3.2-4.5 Complete blood count (CBC) with automated white blood cell (WBC) differential - 12/24/17 18:44 Blood leukocytes automated count (number/volume) 10.9 10*3/uL 4.3-11.0 Blood erythrocytes automated count (number/volume) 5.31 10*6/uL 4.35-5.85 Venous blood hemoglobin measurement (mass/volume) 15.8 g/dL 13.3-17.7 Blood hematocrit (volume fraction) 44 % 40-54 Automated erythrocyte mean corpuscular volume 83 [foz_us] 80-99 Automated erythrocyte mean corpuscular hemoglobin (mass per erythrocyte) 30 pg 25-34 Automated erythrocyte mean corpuscular hemoglobin concentration measurement ( mass/volume) 36 g/dL 32-36 Automated erythrocyte distribution width ratio 13.1 % 10.0-14.5 Automated blood platelet count (count/volume) 264 10*3/uL 130-400 Automated blood platelet mean volume measurement 10.2 [foz_us] 7.4-10.4 Automated blood neutrophils/100 leukocytes 58 % 42-75 Automated blood lymphocytes/100 leukocytes 27 % 12-44 Blood monocytes/100 leukocytes 11 % 0-12 Automated blood eosinophils/100 leukocytes 4 % 0-10 Automated blood basophils/100 leukocytes 0 % 0-10 Blood neutrophils automated count (number/volume) 6.3 10*3 1.8-7.8 Blood lymphocytes automated count (number/volume) 3.0 10*3 1.0-4.0 Blood monocytes automated count (number/volume) 1.1 10*3 0.0-1.0 Automated eosinophil count 0.4 10*3/uL 0.0-0.3 Automated blood basophil count (count/volume) 0.0 10*3/uL 0.0-0.1 Serum heterophile antibody titer - 12/24/17 18:44 Serum heterophile antibody titer NEGATIVE NEGATIVE Encounters ACCT No. Visit Date/Time Discharge Status Pt. Type Provider Facility Loc./Unit Complaint [id number] 12/29/2016 17:02:00 12/29/2016 17:02:00 [id number] 13:24:00 Document Registration [id number] 09/09/2017 09:27:01 ACT Unknown Ivan GONZALES, Hector SMITHWeRanulfo 09/09/2017 13:39:48 ACT Document Registration [id number] 07/24/2017 22:54:00 07/25/2017 00:28:00 DIS Emergency BEBETO SANTANA [facility] ED ED visit [id number] 01/14/2017 17:08:00 01/14/2017 18:30:00 DIS Emergency ALEJO HILL [facility] ED chest pain, tighness, fatigue [id number] 11/06/2017 00:54:00 11/06/2017 03:27:00 DIS Emergency ÓSCAR GONZALES, DEON J [facility] ER RASH BOTH LEGS,PT STS HAD LIVER TRANSPLANT IN 2001 [id number] 01/26/2018 23:52:00 ACT Emergency PERI ARDON DO [facility] ER RT KNEE PAIN-WC [id number] 12/24/2017 18:24:00 Document Registration [id number] 04/27/2017 09:30:00 Document Registration [id number] 04/27/2017 00:00:00 Document Registration [id number] 06/05/2016 00:00:00 Document Registration [id number] 06/20/2015 00:15:00 06/20/2015 02:00:00 DIS Emergency ATA KRISHNAN [facility] EMR [id number] 03/12/2015 22:08:00 03/13/2015 00:45:00 DIS Emergency ALEJO DOTSON [facility] EMR [id number] 01/17/2015 17:44:00 01/17/2015 17:44:00 DIS Outpatient HECTOR LOVE [facility]- [id number] 04/16/2014 00:00:00 Document Registration [id number] 04/16/2014 00:00:00 Document Registration [id number] 10/04/2016 02:00:00 10/04/2016 03:05:00 DIS Emergency MARY GONZALES, YRIS [facility] ER POSSIBLE INSECT BITE [id number] 06/12/2016 21:25:00 06/12/2016 23:10:00 DIS Emergency BELÉN ZUÑIGA [facility] ER N/V [id number] 06/11/2016 13:25:00 06/11/2016 14:35:00 DIS Emergency PERI FLYNN APRN [facility] ER SORE THROAT [id number] 07/06/2017 23:11:00 Document Registration [id number] 11/12/2015 10:06:00 Document Registration [id number] 08/27/2015 09:45:00 Document Registration [id number] 05/17/2015 11:34:00 Document Registration [id number] 02/21/2015 07:41:00 Document Registration [id number] 08/30/2014 09:13:00 Document Registration [id number] 06/05/2014 09:50:00 Document Registration [id number] 05/08/2014 11:22:00 Document Registration [id number] 01/17/2014 10:18:00 Document Registration [id number] 12/06/2013 13:31:00 Document Registration [id number] 10/27/2013 12:01:00 Document Registration [id number] 08/12/2013 07:43:00 Document Registration [id number] 07/20/2013 15:10:00 Document Registration [id number] 05/17/2013 10:35:00 Document Registration [id number] 02/21/2013 07:17:00 Document Registration [id number] 02/14/2013 07:16:00 Document Registration [id number] 02/01/2013 07:08:00 Document Registration [id number] 01/26/2013 15:25:00 Document Registration [id number] 01/26/2013 07:02:00 Document Registration [id number] 01/18/2013 07:13:00 Document Registration [id number] 01/10/2013 08:09:00 Document Registration [id number] 01/05/2013 06:35:00 Document Registration [id number] 11/29/2012 09:14:00 Document Registration [id number] 09/18/2012 10:45:00 Document Registration [id number] 06/18/2012 11:54:00 Document Registration [id number] 05/31/2012 08:27:00 Document Registration [id number] 04/28/2012 12:00:00 Document Registration [id number] 04/27/2012 12:15:00 Document Registration [id number] 04/13/2012 10:33:00 Document Registration [id number] 03/30/2012 10:55:00 Document Registration [id number] 03/09/2012 07:45:00 Document Registration [id number] 03/02/2012 08:00:00 Document Registration
[2018-01-27 01:40] VITALS: BP 125/85
--- NOTE | 2018-01-27 05:21 | Diagnostic Imaging Report ---
INDICATION: Pain status post injury COMPARISON: None. FINDINGS: 3 views of the right knee joint demonstrate no acute fracture or dislocation. No focal osseous lesions are seen. No significant joint effusion is seen. The surrounding soft tissue structures are unremarkable. There are no radiopaque foreign bodies. IMPRESSION: 1. No acute fractures or dislocations of the right knee joint. Dictated by: Dictated on workstation # [id number]
== END 2018-01-27 01:45 | disposition home or self-care (01) ==
LOC: EDUNIT# 23:49 → ER 23:52
DX: S83.91XA Sprain of unspecified site of right knee, initial encounter (principal); Z88.8 Allergy status to other drugs, medicaments and biological substances; Z88.6 Allergy status to analgesic agent; Z88.1 Allergy status to other antibiotic agents; Z94.4 Liver transplant status; Z95.2 Presence of prosthetic heart valve; X50.1XXA Overexertion from prolonged static or awkward postures, initial encounter; Y92.59 Other trade areas as the place of occurrence of the external cause; Y99.0 Civilian activity done for income or pay
CPT/HCPCS: 73562

== ENCOUNTER 2018-07-28 18:36 | Emergency (ER) | payer MEDICAID, OTHER ==
[~2018-07-28] VITALS: Ht 180.3 cm; Wt 111.1 kg
[~2018-07-28 18:36] MED LIST changes: +TRAM-42 PO
--- OUTSIDE RECORDS SUMMARY | 2018-07-28 18:51 | XMS REPORT | Clinical Summary ---
Author Author Admin, LAMBERT Organization 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 Body Mass Index 34.0-34.9, adult HYPERTENSION ICD-401.9 [...] Gastroenteritis, viral, acute ICD-008.8 Inactive Martha Montejo [employer] ENGINEERING TEACHER Bronchitis ICD-490 Inactive Hector Love MD 2014 [...] MG ORAL CAPSULE 2 po BID TACROLIMUS 23993113697 Active Hector Love MD Active CETIRIZINE HCL 10 MG ORAL TABLET 1 po qd PRN Allergies CETIRIZINE HCL 45109601164 Active Hector Love MD Active LISINOPRIL 5 MG ORAL TABLET 1.5 po qd LISINOPRIL 07670273137 Active Hector Love MD Active FLUTICASONE PROPIONATE 50 MCG/ACT NASAL SUSPENSION 2 sprays/nostril qd PRN Congestion/Allergies FLUTICASONE PROPIONATE 66603338040 Active Hector Love MD Active VITAMIN C 500 MG ORAL TABLET CHEWABLE ASCORBIC ACID 27451198855 No Longer Active Hector Love MD Active PREDNISONE 20 MG ORAL TABLET 1 tablet daily x 2 days PREDNISONE 44662589152 No Longer Active Manish Castrejon APRN Active AMOXICILLIN 500 MG ORAL TABLET Take two tablets by mouth every 12 hours for 10 days AMOXICILLIN 77031650324 No Longer Active Иван Mooney MD Active PREDNISONE 20 MG ORAL TABLET 2 po qd x 4 days PREDNISONE 20493098581 No Longer Active Hector Love MD Active HYDROCODONE-ACETAMINOPHEN 5-325 MG ORAL TABLET 1/2 to 1 po q 4 hours prn pain HYDROCODONE-ACETAMINOPHEN 04235878664 No Longer Active Hector Love MD Active AUGMENTIN 875-125 MG ORAL TABLET 1 po BID x 10 days AMOXICILLIN-POT CLAVULANATE 54269408316 No Longer Active Hector Love MD Active FLONASE ALLERGY RELIEF 50 MCG/ACT NASAL SUSPENSION 2 sprays each nostril daily PRN allergies FLUTICASONE PROPIONATE 73041936099 No Longer Active Hector Love MD Active AMOXICILLIN 500 MG ORAL CAPSULE 1 cap by mouth three times a day AMOXICILLIN 82430329770 No Longer Active Manish Castrejon APRN Active KEFLEX 500 MG ORAL CAPSULE 1 tab po tid CEPHALEXIN 21566216638 No Longer Active Jillina Fradebora GARCIA Active AMOXICILLIN 500 MG ORAL TABLET 2 tabs twice a day for 10 days AMOXICILLIN 65026756109 No Longer Active Elijahlldenise Fradebora GARCIA Active ZOFRAN 4 MG ORAL TABLET 1 po q6hr PRN Nausea ONDANSETRON HCL 46454502731 No Longer Active Ramona Diggs LPN Active AMOXICILLIN 500 MG ORAL CAPSULE 2 po BID x 10 days AMOXICILLIN 24737467514 No Longer Active Martha Montejo APRN Active AUGMENTIN 875-125 MG ORAL TABLET 1 tab by mouth twice daily with food AMOXICILLIN-POT CLAVULANATE 23843573897 No Longer Active Hector Love MD Active LEVAQUIN 500 MG ORAL TABLET 1 pill by mouth daily LEVOFLOXACIN 17842144900 No Longer Active Jen Crystal MD PhD Active KETOCONAZOLE 2 % EXTERNAL CREAM apply twice a day to rash KETOCONAZOLE 55988955129 No Longer Active Hector Love MD Active AUGMENTIN 875-125 MG ORAL TABLET 1 tab by mouth twice daily with food AMOXICILLIN-POT CLAVULANATE 41427338238 No Longer Active Иван Mooney MD Active LOTRISONE 1-0.05 % EXTERNAL CREAM Apply twice a day to affected area CLOTRIMAZOLE-BETAMETHASONE 91141995799 No Longer Active Иван Mooney MD Active FEXOFENADINE HCL 180 MG ORAL TABLET 1 Daily FEXOFENADINE HCL 84780917704 No Longer Active Hector Love MD Active PROGRAF 0.5 MG ORAL CAPSULE Take one by mouth daily with 1 mg TACROLIMUS 03861073568 No Longer Active Hector Love MD Active AMOXICILLIN 500 MG ORAL CAPSULE 2 po BID x 10 days AMOXICILLIN 88516407156 No Longer Active Hector Love MD Active RAPAMUNE 1 MG ORAL TABLET 3 tabs in the am SIROLIMUS 67068002263 No Longer Active Hector Love MD Active AMOXICILLIN 500 MG ORAL CAPSULE 2 po BID x 10 days AMOXICILLIN 79004489175 No Longer Active Hector Love MD Active LORTAB 5-500 MG ORAL TABLET 1/2 to 1 tablet by mouth every 4 hours as needed for pain HYDROCODONE-ACETAMINOPHEN 38988059733 No Longer Active Hector Love MD Active FLUTICASONE PROPIONATE 50 MCG/ACT NASAL SUSPENSION INSTILL 2 SPRAYS IN EACH NOSTRIL Q D FLUTICASONE PROPIONATE 63306802779 No Longer Active Hector Love MD Active PROGRAF 1 MG ORAL CAPSULE 1 po bid TACROLIMUS 58617575391 No Longer Active Hector Love MD Active AMOXICILLIN 875 MG ORAL TABLET 1 tab by mouth twice daily AMOXICILLIN 06489263354 No Longer Active Hector Love MD Active AMOXICILLIN 500 MG ORAL CAPSULE 2 po BID x 10 days AMOXICILLIN 22363443968 No Longer Active Hector Love MD Active AUGMENTIN 875-125 MG ORAL TABLET 1 tab by mouth twice daily with food AMOXICILLIN-POT CLAVULANATE 91443907207 No Longer Active Hector Love MD Active AZITHROMYCIN 250 MG ORAL TABLET 2 po qd x 1 day, then 1 po qd x 4 days 06/19 AZITHROMYCIN 10692422416 No Longer Active Hector Love MD Active CETIRIZINE HCL 10 MG ORAL TABLET 1 PO Q D CETIRIZINE HCL 96229775956 No Longer Active [place] Active PROGRAF 1 MG ORAL CAPSULE 1 po bid PROGRAF 1 MG ORAL CAPSULE 244835 TACROLIMUS Inactive FLUTICASONE PROPIONATE 50 MCG/ACT NASAL SUSPENSION INSTILL 2 SPRAYS IN EACH NOSTRIL Q D FLUTICASONE PROPIONATE 50 MCG/ACT NASAL SUSPENSION 6780075 FLUTICASONE PROPIONATE Inactive LORTAB 5-500 MG ORAL TABLET 1/2 to 1 tablet by mouth every 4 hours as needed for pain LORTAB 5-500 MG ORAL TABLET HYDROCODONE- ACETAMINOPHEN Inactive RAPAMUNE 1 MG ORAL TABLET 3 tabs in the am RAPAMUNE 1 MG ORAL TABLET 017696 SIROLIMUS Inactive PROGRAF 0.5 MG ORAL CAPSULE Take one by mouth daily with 1 mg PROGRAF 0.5 MG ORAL CAPSULE 298522 TACROLIMUS Inactive FEXOFENADINE HCL 180 MG ORAL TABLET 1 Daily FEXOFENADINE HCL 180 MG ORAL TABLET 964931 FEXOFENADINE HCL Inactive LOTRISONE 1-0.05 % EXTERNAL CREAM Apply twice a day to affected area LOTRISONE 1-0.05 % EXTERNAL CREAM 272759 CLOTRIMAZOLE- BETAMETHASONE Inactive KETOCONAZOLE 2 % EXTERNAL CREAM apply twice a day to rash KETOCONAZOLE 2 % EXTERNAL CREAM 544444 KETOCONAZOLE Inactive AUGMENTIN 875-125 MG ORAL TABLET 1 tab by mouth twice daily with food AUGMENTIN 875-125 MG ORAL TABLET 043265 AMOXICILLIN-POT CLAVULANATE Inactive ZOFRAN 4 MG ORAL TABLET 1 po q6hr PRN Nausea ZOFRAN 4 MG ORAL TABLET 821981 ONDANSETRON HCL Inactive AMOXICILLIN 500 MG ORAL TABLET 2 tabs twice a day for 10 days AMOXICILLIN 500 MG ORAL TABLET 011365 AMOXICILLIN Inactive FLONASE ALLERGY RELIEF 50 MCG/ACT NASAL SUSPENSION 2 sprays each nostril daily PRN allergies FLONASE ALLERGY RELIEF 50 MCG/ACT NASAL SUSPENSION 2166053 FLUTICASONE PROPIONATE Inactive HYDROCODONE-ACETAMINOPHEN 5-325 MG ORAL TABLET 1/2 to 1 po q 4 hours prn pain HYDROCODONE-ACETAMINOPHEN 5-325 MG ORAL TABLET 132826 HYDROCODONE-ACETAMINOPHEN Inactive PREDNISONE 20 MG ORAL TABLET 1 tablet daily x 2 days PREDNISONE 20 MG ORAL TABLET 979486 PREDNISONE Inactive VITAMIN C 500 MG ORAL TABLET CHEWABLE VITAMIN C 500 MG ORAL TABLET CHEWABLE ASCORBIC ACID Inactive AMOXICILLIN 500 MG ORAL CAPSULE 2 po BID x 10 days AMOXICILLIN 500 MG ORAL CAPSULE 469796 AMOXICILLIN Inactive AMOXICILLIN 875 MG ORAL TABLET 1 tab by mouth twice daily AMOXICILLIN 875 MG ORAL TABLET 281080 AMOXICILLIN Inactive AMOXICILLIN 500 MG ORAL CAPSULE 2 po BID x 10 days AMOXICILLIN 500 MG ORAL CAPSULE 490260 AMOXICILLIN Inactive AMOXICILLIN 500 MG ORAL CAPSULE 2 po BID x 10 days AMOXICILLIN 500 MG ORAL CAPSULE 681266 AMOXICILLIN Inactive AUGMENTIN 875-125 MG ORAL TABLET 1 tab by mouth twice daily with food AUGMENTIN 875-125 MG ORAL TABLET 580021 AMOXICILLIN-POT CLAVULANATE Inactive LEVAQUIN 500 MG ORAL TABLET 1 pill by mouth daily LEVAQUIN 500 MG ORAL TABLET 675680 LEVOFLOXACIN Inactive AMOXICILLIN 500 MG ORAL CAPSULE 2 po BID x 10 days AMOXICILLIN 500 MG ORAL CAPSULE 274337 AMOXICILLIN Inactive AMOXICILLIN 500 MG ORAL CAPSULE 1 cap by mouth three times a day AMOXICILLIN 500 MG ORAL CAPSULE 954532 AMOXICILLIN Inactive AUGMENTIN 875-125 MG ORAL TABLET 1 po BID x 10 days AUGMENTIN 875-125 MG ORAL TABLET 918004 AMOXICILLIN-POT CLAVULANATE Inactive PREDNISONE 20 MG ORAL TABLET 2 po qd x 4 days PREDNISONE 20 MG ORAL TABLET 680865 PREDNISONE Inactive AMOXICILLIN 500 MG ORAL TABLET Take two tablets by mouth every 12 hours for 10 days AMOXICILLIN 500 MG ORAL TABLET 699668 AMOXICILLIN Inactive Advance Directives Directive Description Start Date PERMISSION TO SHARE Immunizations Vaccine Administration Date Value Standard Description Seasonal influenza vaccine, injectable, preservative free, for > 3 years old ( Afluria, FluLaval, Fluzone, Fluvirin, Fluarix, Agriflu(>=18 yo)) Fluzone preservative free (>=3 yrs.) [[id number]] Influenza, seasonal, injectable, preservative free Adacel (Tetanus, reduced Diphtheria, and acellular Pertussis Immunization) Adacel [BKX525] tetanus toxoid, reduced diphtheria toxoid, and acellular [...] temperature weight E&M 250 [lb_av] Weight Measured Diagnostic Results Date Name Value Unit Range Description Lab Report: CBC W/DIFF, Comp. Metabolic Panel, Thyroid Stimulating Hormo ... - Chemistry sodium, serum 137 mmol/L 357-064 3645/04/23 carbon dioxide, venous blood 28.4 mmol/L 21.0-32.0 [...] pH, urine, semiquantitative 5.5 5.0-8.5 Lab Report: VITAMIN D, 25-HYDROXY/10821 - Chemistry vitamin D 25-hydroxy, serum 44 ng/mL 30-100 Encounters Code Encounter Date Provider Facility CPT-40665 Level 3 Est. Patient 10:49:01 CDT Manish Castrejon [facility] CPT-31390 Level 3 Est. Patient 11:35:07 CDT Manish Castrejon [facility] CPT-36130 Level 3 Est. Patient 17:22:36 CDT Tracy Frey [facility] CPT-03364 Level 3 Est. Patient 16:06:03 CDT Manish Castrejon [facility] CPT-89983 Level 3 Est. Patient 09:57:24 CDT Manish Castreojn [facility] CPT-14553 Level 3 Est. Patient 16:31:04 CDT Иван Mooney MD [facility] CPT-80729 Level 4 Est. Patient 12:02:18 CDT Hector Love MD [facility] CPT-60705 Level 3 Est. Patient 16:14:45 CDT Hector Love MD [facility] CPT-88044 Level 3 Est. Patient 16:53:35 CDT Иван Mooney MD [facility] CPT-24047 Level 3 Est. Patient 15:57:13 CDT Martha Montejo RADHA [facility] CPT-51869 Level 3 Est. Patient 14:30:47 GRADER TENDER Hector Love MD [facility] CPT-71018 Level 3 Est. Patient 14:50:45 CDT Hector Love MD [facility] CPT-67191 Level 3 Est. Patient 21:17:30 CDT Jen Crystal MD PhD [facility] CPT-86291 Level 3 Est. Patient 09:32:55 CDT Hector Love MD [facility] CPT-32109 Level 3 Est. Patient 15:11:08 GRADER TENDER Иван Mooney MD [facility] CPT-52049 Level 3 Est. Patient 16:38:53 GRADER TENDER Hector Love MD [facility] CPT-26275 Level 3 Est. Patient 15:46:05 CDT Hector Love MD [facility] CPT-24528 Level 3 Est. Patient 13:59:39 CDT Hector Love MD [facility] CPT-22366 Level 3 Est. Patient 14:44:46 GRADER TENDER Hector Love MD [facility] CPT-40884 Level 3 Est. Patient 17:12:27 CDT Hector Love MD [facility] CPT-70679 Level 3 Est. Patient 15:30:32 CDT Hector Love MD [facility] CPT-90690 Level 3 Est. Patient 14:24:52 CDT Иван Mooney MD [facility] CPT-74145 Level 3 Est. Patient 14:08:38 GRADER TENDER Hector Love MD [facility] Procedures Code Procedure Name Date Entry Date Standard Description CPT-17739 Chest, 2 views 11:04:30 CDT CPT-94322 Venipuncture Draw Fee 16:18:26 CDT CPT-61296 TB Skin Test 09:57:25 CDT CPT-000 Give Appropriate Flu Vaccine 16:22:23 GRADER TENDER CPT-39379 Free T4 - LAB USE ONLY 11:38:58 CDT CPT-53611 TSH - LAB USE ONLY 11:38:58 CDT CPT-19367 Venipuncture Draw Fee 11:38:58 CDT CPT-71984 Fluzone Quadrivalent Intramuscular Suspension 0.5 ML 16: 12:26 GRADER TENDER CPT-44112 Immunization Single Admin 16:12:26 GRADER TENDER CPT-J0561 Bicillin LA 1,200,000 u (PCN G Benzathine) 16:40:23 CDT CPT-22594 Abx/Therapy Injection 16:40:22 CDT CPT-J0561 Bicillin LA 1,200,000 u (PCN G Benzathine) 16:15:35 CDT CPT-15925 Immunization Single Admin 16:11:28 GRADER TENDER CPT-57131 Fluzone Quadrivalent Intramuscular Suspension 0.5 ML 16: 11:28 GRADER TENDER CPT-43570 Administration single or combination vaccine inc oral 13 :57:23 CDT CPT-54694 Menactra Intramuscular Injectable 13:57:23 CDT CPT-11946 First Vx Component - Ix admin via ID IM or jet inj without physician counseling 16:42:17 GRADER TENDER CPT-46654 Fluzone preservative free (>=3 yrs.) 16:42:17 GRADER TENDER 06/03 CPT-18775 Venipuncture Draw Fee 16:29:01 CDT CPT-42733 Chest 2V Frontal and Lat 16:23:56 CDT CPT-76521 Administration single or combination vaccine inc oral 13 :39:17 GRADER TENDER CPT-96088 Tdap 13:39:17 GRADER TENDER
--- OUTSIDE RECORDS SUMMARY | 2018-07-28 18:51 | XMS REPORT | Clinical Summary ---
Author Author Admin, QIE Organization [facility] Address Unknown Phone Unavailable Allergies, [...] care facility Fatigue 780.79 Active Manish Castrejon [employer] Other malaise and fatigue Body Mass Index 34.0-34.9 Adult Active Manish Castrejon [employer] Body Mass Index 34.0-34.9, adult HYPERTENSION ICD-401.9 [...] Gastroenteritis, viral, acute ICD-008.8 Inactive Martha Montejo [employer] CHIE[employer] Bronchitis ICD-490 Inactive Hector Love MD 2014 [...] MG ORAL CAPSULE 2 po BID TACROLIMUS 40159662947 Active Hector Love MD Active CETIRIZINE HCL 10 MG ORAL TABLET 1 po qd PRN Allergies CETIRIZINE HCL 48559275840 Active Hector Love MD Active LISINOPRIL 5 MG ORAL TABLET 1.5 po qd LISINOPRIL 52967558341 Vivek Love MD Active FLUTICASONE PROPIONATE 50 MCG/ACT NASAL SUSPENSION 2 sprays/nostril qd PRN Congestion/Allergies FLUTICASONE PROPIONATE 62659958846 Active Hector Love MD Active VITAMIN C 500 MG ORAL TABLET CHEWABLE ASCORBIC ACID 21796239589 No Longer Active Hector Love MD Active PREDNISONE 20 MG ORAL TABLET 1 tablet daily x 2 days PREDNISONE 16250596866 No Longer Active Manish Castrejon APRN Active AMOXICILLIN 500 MG ORAL TABLET Take two tablets by mouth every 12 hours for 10 days AMOXICILLIN 55075189792 No Longer Active Иван Mooney MD Active PREDNISONE 20 MG ORAL TABLET 2 po qd x 4 days PREDNISONE 94266543602 No Longer Active Hector Love MD Active HYDROCODONE-ACETAMINOPHEN 5-325 MG ORAL TABLET 1/2 to 1 po q 4 hours prn pain HYDROCODONE-ACETAMINOPHEN 61470448248 No Longer Active Hector Love MD Active AUGMENTIN 875-125 MG ORAL TABLET 1 po BID x 10 days AMOXICILLIN-POT CLAVULANATE 57409857277 No Longer Active Hector Love MD Active FLONASE ALLERGY RELIEF 50 MCG/ACT NASAL SUSPENSION 2 sprays each nostril daily PRN allergies FLUTICASONE PROPIONATE 03037653703 No Longer Active Hector Love MD Active AMOXICILLIN 500 MG ORAL CAPSULE 1 cap by mouth three times a day AMOXICILLIN 04639453660 No Longer Active Manish Castrejon APRN Active KEFLEX 500 MG ORAL CAPSULE 1 tab po tid CEPHALEXIN 50885226567 No Longer Active Jillina Fradebora GARCIA Active AMOXICILLIN 500 MG ORAL TABLET 2 tabs twice a day for 10 days AMOXICILLIN 57031522857 No Longer Active Jilldenise Fradebora GARCIA Active ZOFRAN 4 MG ORAL TABLET 1 po q6hr PRN Nausea ONDANSETRON HCL 18580166668 No Longer Active Ramona Diggs LPN Active AMOXICILLIN 500 MG ORAL CAPSULE 2 po BID x 10 days AMOXICILLIN 65044100682 No Longer Active Martha Montejo APRN Active AUGMENTIN 875-125 MG ORAL TABLET 1 tab by mouth twice daily with food AMOXICILLIN-POT CLAVULANATE 91326382896 No Longer Active Hector Love MD Active LEVAQUIN 500 MG ORAL TABLET 1 pill by mouth daily LEVOFLOXACIN 70196343064 No Longer Active Jen Crystal MD PhD Active KETOCONAZOLE 2 % EXTERNAL CREAM apply twice a day to rash KETOCONAZOLE 15983285033 No Longer Active Hector Love MD Active AUGMENTIN 875-125 MG ORAL TABLET 1 tab by mouth twice daily with food AMOXICILLIN-POT CLAVULANATE 06882404348 No Longer Active Иван Mooney MD Active LOTRISONE 1-0.05 % EXTERNAL CREAM Apply twice a day to affected area CLOTRIMAZOLE-BETAMETHASONE 78950698142 No Longer Active Иван Mooney MD Active FEXOFENADINE HCL 180 MG ORAL TABLET 1 Daily FEXOFENADINE HCL 02689652597 No Longer Active Hector Love MD Active PROGRAF 0.5 MG ORAL CAPSULE Take one by mouth daily with 1 mg TACROLIMUS 24850353193 No Longer Active Hector Love MD Active AMOXICILLIN 500 MG ORAL CAPSULE 2 po BID x 10 days AMOXICILLIN 87158883303 No Longer Active Hector Love MD Active RAPAMUNE 1 MG ORAL TABLET 3 tabs in the am SIROLIMUS 74801790501 No Longer Active Hector Love MD Active AMOXICILLIN 500 MG ORAL CAPSULE 2 po BID x 10 days AMOXICILLIN 16355511280 No Longer Active Hector Love MD Active LORTAB 5-500 MG ORAL TABLET 1/2 to 1 tablet by mouth every 4 hours as needed for pain HYDROCODONE-ACETAMINOPHEN 16468975438 No Longer Active Hector Love MD Active FLUTICASONE PROPIONATE 50 MCG/ACT NASAL SUSPENSION INSTILL 2 SPRAYS IN EACH NOSTRIL Q D FLUTICASONE PROPIONATE 68937398481 No Longer Active Hector Love MD Active PROGRAF 1 MG ORAL CAPSULE 1 po bid TACROLIMUS 00142553969 No Longer Active Hector Love MD Active AMOXICILLIN 875 MG ORAL TABLET 1 tab by mouth twice daily AMOXICILLIN 19845666414 No Longer Active Hector Love MD Active AMOXICILLIN 500 MG ORAL CAPSULE 2 po BID x 10 days AMOXICILLIN 83602564830 No Longer Active Hector Love MD Active AUGMENTIN 875-125 MG ORAL TABLET 1 tab by mouth twice daily with food AMOXICILLIN-POT CLAVULANATE 34215244259 No Longer Active Hector Love MD Active AZITHROMYCIN 250 MG ORAL TABLET 2 po qd x 1 day, then 1 po qd x 4 days 06/19 AZITHROMYCIN 25987814464 No Longer Active Hector Love MD Active CETIRIZINE HCL 10 MG ORAL TABLET 1 PO Q D CETIRIZINE HCL 06058217223 No Longer Active [place] Active PROGRAF 1 MG ORAL CAPSULE 1 po bid PROGRAF 1 MG ORAL CAPSULE 648896 TACROLIMUS Inactive FLUTICASONE PROPIONATE 50 MCG/ACT NASAL SUSPENSION INSTILL 2 SPRAYS IN EACH NOSTRIL Q D FLUTICASONE PROPIONATE 50 MCG/ACT NASAL SUSPENSION 6080718 FLUTICASONE PROPIONATE Inactive LORTAB 5-500 MG ORAL TABLET 1/2 to 1 tablet by mouth every 4 hours as needed for pain LORTAB 5-500 MG ORAL TABLET HYDROCODONE- ACETAMINOPHEN Inactive RAPAMUNE 1 MG ORAL TABLET 3 tabs in the am RAPAMUNE 1 MG ORAL TABLET 091078 SIROLIMUS Inactive PROGRAF 0.5 MG ORAL CAPSULE Take one by mouth daily with 1 mg PROGRAF 0.5 MG ORAL CAPSULE 339652 TACROLIMUS Inactive FEXOFENADINE HCL 180 MG ORAL TABLET 1 Daily FEXOFENADINE HCL 180 MG ORAL TABLET 818420 FEXOFENADINE HCL Inactive LOTRISONE 1-0.05 % EXTERNAL CREAM Apply twice a day to affected area LOTRISONE 1-0.05 % EXTERNAL CREAM 714982 CLOTRIMAZOLE- BETAMETHASONE Inactive KETOCONAZOLE 2 % EXTERNAL CREAM apply twice a day to rash KETOCONAZOLE 2 % EXTERNAL CREAM 888106 KETOCONAZOLE Inactive AUGMENTIN 875-125 MG ORAL TABLET 1 tab by mouth twice daily with food AUGMENTIN 875-125 MG ORAL TABLET 350357 AMOXICILLIN-POT CLAVULANATE Inactive ZOFRAN 4 MG ORAL TABLET 1 po q6hr PRN Nausea ZOFRAN 4 MG ORAL TABLET 156856 ONDANSETRON HCL Inactive AMOXICILLIN 500 MG ORAL TABLET 2 tabs twice a day for 10 days AMOXICILLIN 500 MG ORAL TABLET 731503 AMOXICILLIN Inactive FLONASE ALLERGY RELIEF 50 MCG/ACT NASAL SUSPENSION 2 sprays each nostril daily PRN allergies FLONASE ALLERGY RELIEF 50 MCG/ACT NASAL SUSPENSION 5592093 FLUTICASONE PROPIONATE Inactive HYDROCODONE-ACETAMINOPHEN 5-325 MG ORAL TABLET 1/2 to 1 po q 4 hours prn pain HYDROCODONE-ACETAMINOPHEN 5-325 MG ORAL TABLET 070991 HYDROCODONE-ACETAMINOPHEN Inactive PREDNISONE 20 MG ORAL TABLET 1 tablet daily x 2 days PREDNISONE 20 MG ORAL TABLET 017518 PREDNISONE Inactive VITAMIN C 500 MG ORAL TABLET CHEWABLE VITAMIN C 500 MG ORAL TABLET CHEWABLE ASCORBIC ACID Inactive AMOXICILLIN 500 MG ORAL CAPSULE 2 po BID x 10 days AMOXICILLIN 500 MG ORAL CAPSULE 183791 AMOXICILLIN Inactive AMOXICILLIN 875 MG ORAL TABLET 1 tab by mouth twice daily AMOXICILLIN 875 MG ORAL TABLET 557037 AMOXICILLIN Inactive AMOXICILLIN 500 MG ORAL CAPSULE 2 po BID x 10 days AMOXICILLIN 500 MG ORAL CAPSULE 558739 AMOXICILLIN Inactive AMOXICILLIN 500 MG ORAL CAPSULE 2 po BID x 10 days AMOXICILLIN 500 MG ORAL CAPSULE 867405 AMOXICILLIN Inactive AUGMENTIN 875-125 MG ORAL TABLET 1 tab by mouth twice daily with food AUGMENTIN 875-125 MG ORAL TABLET 035647 AMOXICILLIN-POT CLAVULANATE Inactive LEVAQUIN 500 MG ORAL TABLET 1 pill by mouth daily LEVAQUIN 500 MG ORAL TABLET 369140 LEVOFLOXACIN Inactive AMOXICILLIN 500 MG ORAL CAPSULE 2 po BID x 10 days AMOXICILLIN 500 MG ORAL CAPSULE 336771 AMOXICILLIN Inactive AMOXICILLIN 500 MG ORAL CAPSULE 1 cap by mouth three times a day AMOXICILLIN 500 MG ORAL CAPSULE 695661 AMOXICILLIN Inactive AUGMENTIN 875-125 MG ORAL TABLET 1 po BID x 10 days AUGMENTIN 875-125 MG ORAL TABLET 903379 AMOXICILLIN-POT CLAVULANATE Inactive PREDNISONE 20 MG ORAL TABLET 2 po qd x 4 days PREDNISONE 20 MG ORAL TABLET 858457 PREDNISONE Inactive AMOXICILLIN 500 MG ORAL TABLET Take two tablets by mouth every 12 hours for 10 days AMOXICILLIN 500 MG ORAL TABLET 336064 AMOXICILLIN Inactive Advance Directives Directive Description Start Date PERMISSION TO SHARE Immunizations Vaccine Administration Date Value Standard Description Seasonal influenza vaccine, injectable, preservative free, for > 3 years old ( Afluria, FluLaval, Fluzone, Fluvirin, Fluarix, Agriflu(>=18 yo)) Fluzone preservative free (>=3 yrs.) [HOQ962] Influenza, seasonal, injectable, preservative free Adacel (Tetanus, reduced Diphtheria, and acellular Pertussis Immunization) Adacel [CSU141] tetanus toxoid, reduced diphtheria toxoid, and acellular [...] ... - Chemistry sodium, serum 137 mmol/L 993-766 0761/04/23 carbon dioxide, venous blood 28.4 mmol/L 21.0-32.0 [...] semiquantitative 5.5 5.0-8.5 Lab Report: VITAMIN D, 25-HYDROXY/[id number] - Chemistry vitamin D 25-hydroxy, serum 44 ng/mL 30-100 Encounters Code Encounter Date Provider Facility CPT-68999 Level 3 Est. Patient 10:49:01 CDT Manish Castrejon [facility] CPT-96120 Level 3 Est. Patient 11:35:07 CDT Manish Castrejon [facility] CPT-66408 Level 3 Est. Patient 17:22:36 CDT Tracy Frey [facility] CPT-43352 Level 3 Est. Patient 16:06:03 CDT Manish Castrejon [facility] CPT-94181 Level 3 Est. Patient 09:57:24 CDT Manish Castrejon [facility] CPT-71484 Level 3 Est. Patient 16:31:04 CDT Иван Mooney MD [facility] CPT-27956 Level 4 Est. Patient 12:02:18 CDT Hector Love MD [facility] CPT-93186 Level 3 Est. Patient 16:14:45 CDT Hector Love MD [facility] CPT-82339 Level 3 Est. Patient 16:53:35 CDT Иван Mooney MD [facility] CPT-42710 Level 3 Est. Patient 15:57:13 CDT Martha Montejo RADHA [facility] CPT-49544 Level 3 Est. Patient 14:30:47 [employer] Hector Love MD [facility] CPT-22620 Level 3 Est. Patient 14:50:45 CDT Hector Love MD [facility] CPT-90037 Level 3 Est. Patient 21:17:30 CDT Jen Crystal MD PhD [facility] CPT-68356 Level 3 Est. Patient 09:32:55 CDT Hector Love MD [facility] CPT-80870 Level 3 Est. Patient 15:11:08 [employer] Иван Mooney MD [facility] CPT-10278 Level 3 Est. Patient 16:38:53 [employer] Hector Love MD [facility] CPT-25948 Level 3 Est. Patient 15:46:05 CDT Hector Love MD [facility] CPT-49978 Level 3 Est. Patient 13:59:39 CDT Hector Love MD [facility] CPT-08014 Level 3 Est. Patient 14:44:46 [employer] Hector Love MD [facility] CPT-89164 Level 3 Est. Patient 17:12:27 CDT Hector Love MD [facility] CPT-72606 Level 3 Est. Patient 15:30:32 CDT Hector Love MD [facility] CPT-40255 Level 3 Est. Patient 14:24:52 CDT Иван Mooney MD [facility] CPT-87292 Level 3 Est. Patient 14:08:38 [employer] Hector Love MD [facility] Procedures Code Procedure Name Date Entry Date Standard Description CPT-92502 Chest, 2 views 11:04:30 CDT CPT-99586 Venipuncture Draw Fee 16:18:26 CDT CPT-07211 TB Skin Test 09:57:25 CDT CPT-000 Give Appropriate Flu Vaccine 16:22:23 [employer] CPT-66089 Free T4 - LAB USE ONLY 11:38:58 CDT CPT-69086 TSH - LAB USE ONLY 11:38:58 CDT CPT-78251 Venipuncture Draw Fee 11:38:58 CDT CPT-92411 Fluzone Quadrivalent Intramuscular Suspension 0.5 ML 16: 12:26 [employer] CPT-65491 Immunization Single Admin 16:12:26 [employer] CPT-J0561 Bicillin LA 1,200,000 u (PCN G Benzathine) 16:40:23 CDT CPT-39241 Abx/Therapy Injection 16:40:22 CDT CPT-J0561 Bicillin LA 1,200,000 u (PCN G Benzathine) 16:15:35 CDT CPT-58047 Immunization Single Admin 16:11:28 [employer] CPT-03778 Fluzone Quadrivalent Intramuscular Suspension 0.5 ML 16: 11:28 [employer] CPT-15806 Administration single or combination vaccine inc oral 13 :57:23 CDT CPT-22536 Menactra Intramuscular Injectable 13:57:23 CDT CPT-47587 First Vx Component - Ix admin via ID IM or jet inj without physician counseling 16:42:17 [employer] CPT-73489 Fluzone preservative free (>=3 yrs.) 16:42:17 [employer] 06/03 CPT-85885 Venipuncture Draw Fee 16:29:01 CDT CPT-54024 Chest 2V Frontal and Lat 16:23:56 CDT CPT-99124 Administration single or combination vaccine inc oral 13 :39:17 [employer] CPT-78866 Tdap 13:39:17 [employer]
--- OUTSIDE RECORDS SUMMARY | 2018-07-28 18:52 | XMS REPORT | Clinical Summary ---
Author Author Admin, LAMBERT Organization [employer] Address Unknown Phone Unavailable Allergies, Adverse Reactions, [...] as acute or chronic Pharyngitis 462 Resolved Hcetor Love MD Acute pharyngitis Ingrown toenail 703.0 [...] care facility Fatigue 780.79 Active Manish Castrejon [facility] Other malaise and fatigue Body Mass Index 34.0-34.9 Adult Active Manish Castrejon [facility] Body Mass Index 34.0-34.9, adult HYPERTENSION ICD-401.9 [...] Gastroenteritis, viral, acute ICD-008.8 Inactive Martha Montejo [facility] Bronchitis ICD-490 Inactive Hector Love MD 2014 [...] MG ORAL CAPSULE 2 po BID TACROLIMUS 66941499240 Active Hector Love MD Active CETIRIZINE HCL 10 MG ORAL TABLET 1 po qd PRN Allergies CETIRIZINE HCL 00814253818 Active Hector Love MD Active LISINOPRIL 5 MG ORAL TABLET 1.5 po qd LISINOPRIL 40020078210 Active Hector Love MD Active FLUTICASONE PROPIONATE 50 MCG/ACT NASAL SUSPENSION 2 sprays/nostril qd PRN Congestion/Allergies FLUTICASONE PROPIONATE 30366241345 Active Hector Love MD Active VITAMIN C 500 MG ORAL TABLET CHEWABLE ASCORBIC ACID 07322478760 No Longer Active Hector Love MD Active PREDNISONE 20 MG ORAL TABLET 1 tablet daily x 2 days PREDNISONE 68252326956 No Longer Active Manish Castrejon APRN Active AMOXICILLIN 500 MG ORAL TABLET Take two tablets by mouth every 12 hours for 10 days AMOXICILLIN 70531501615 No Longer Active Иван Mooney MD Active PREDNISONE 20 MG ORAL TABLET 2 po qd x 4 days PREDNISONE 48648313970 No Longer Active Hector Love MD Active HYDROCODONE-ACETAMINOPHEN 5-325 MG ORAL TABLET 1/2 to 1 po q 4 hours prn pain HYDROCODONE-ACETAMINOPHEN 10071852715 No Longer Active Hector Love MD Active AUGMENTIN 875-125 MG ORAL TABLET 1 po BID x 10 days AMOXICILLIN-POT CLAVULANATE 56913844415 No Longer Active Hector Love MD Active FLONASE ALLERGY RELIEF 50 MCG/ACT NASAL SUSPENSION 2 sprays each nostril daily PRN allergies FLUTICASONE PROPIONATE 20080885683 No Longer Active Hector Love MD Active AMOXICILLIN 500 MG ORAL CAPSULE 1 cap by mouth three times a day AMOXICILLIN 67090272785 No Longer Active Manish Castrejon APRN Active KEFLEX 500 MG ORAL CAPSULE 1 tab po tid CEPHALEXIN 77374392480 No Longer Active Jillina Fradebora GARCIA Active AMOXICILLIN 500 MG ORAL TABLET 2 tabs twice a day for 10 days AMOXICILLIN 07239956439 No Longer Active Elijahlldenise Fradebora GARCIA Active ZOFRAN 4 MG ORAL TABLET 1 po q6hr PRN Nausea ONDANSETRON HCL 70598027289 No Longer Active Ramona Diggs LPN Active AMOXICILLIN 500 MG ORAL CAPSULE 2 po BID x 10 days AMOXICILLIN 68838749125 No Longer Active Martha Montejo APRN Active AUGMENTIN 875-125 MG ORAL TABLET 1 tab by mouth twice daily with food AMOXICILLIN-POT CLAVULANATE 72605668777 No Longer Active Hector Love MD Active LEVAQUIN 500 MG ORAL TABLET 1 pill by mouth daily LEVOFLOXACIN 12362954232 No Longer Active Jen Crystal MD PhD Active KETOCONAZOLE 2 % EXTERNAL CREAM apply twice a day to rash KETOCONAZOLE 24726495796 No Longer Active Hector Love MD Active AUGMENTIN 875-125 MG ORAL TABLET 1 tab by mouth twice daily with food AMOXICILLIN-POT CLAVULANATE 13945518551 No Longer Active Иван Mooney MD Active LOTRISONE 1-0.05 % EXTERNAL CREAM Apply twice a day to affected area CLOTRIMAZOLE-BETAMETHASONE 58558894524 No Longer Active Иван Mooney MD Active FEXOFENADINE HCL 180 MG ORAL TABLET 1 Daily FEXOFENADINE HCL 48984913558 No Longer Active Hector Love MD Active PROGRAF 0.5 MG ORAL CAPSULE Take one by mouth daily with 1 mg TACROLIMUS 68067361605 No Longer Active Hector Love MD Active AMOXICILLIN 500 MG ORAL CAPSULE 2 po BID x 10 days AMOXICILLIN 54511966809 No Longer Active Hector Love MD Active RAPAMUNE 1 MG ORAL TABLET 3 tabs in the am SIROLIMUS 59848850808 No Longer Active Hector Love MD Active AMOXICILLIN 500 MG ORAL CAPSULE 2 po BID x 10 days AMOXICILLIN 89285798123 No Longer Active Hector Love MD Active LORTAB 5-500 MG ORAL TABLET 1/2 to 1 tablet by mouth every 4 hours as needed for pain HYDROCODONE-ACETAMINOPHEN 17679995364 No Longer Active Hector Love MD Active FLUTICASONE PROPIONATE 50 MCG/ACT NASAL SUSPENSION INSTILL 2 SPRAYS IN EACH NOSTRIL Q D FLUTICASONE PROPIONATE 10406808555 No Longer Active Hector Love MD Active PROGRAF 1 MG ORAL CAPSULE 1 po bid TACROLIMUS 05290604579 No Longer Active Hector Love MD Active AMOXICILLIN 875 MG ORAL TABLET 1 tab by mouth twice daily AMOXICILLIN 29990915501 No Longer Active Hector Love MD Active AMOXICILLIN 500 MG ORAL CAPSULE 2 po BID x 10 days AMOXICILLIN 29205222233 No Longer Active Hector Love MD Active AUGMENTIN 875-125 MG ORAL TABLET 1 tab by mouth twice daily with food AMOXICILLIN-POT CLAVULANATE 00327907195 No Longer Active Hector Love MD Active AZITHROMYCIN 250 MG ORAL TABLET 2 po qd x 1 day, then 1 po qd x 4 days 06/19 AZITHROMYCIN 44957723590 No Longer Active Hector Love MD Active CETIRIZINE HCL 10 MG ORAL TABLET 1 PO Q D CETIRIZINE HCL 56635590600 No Longer Active [place] Active PROGRAF 1 MG ORAL CAPSULE 1 po bid PROGRAF 1 MG ORAL CAPSULE 506691 TACROLIMUS Inactive FLUTICASONE PROPIONATE 50 MCG/ACT NASAL SUSPENSION INSTILL 2 SPRAYS IN EACH NOSTRIL Q D FLUTICASONE PROPIONATE 50 MCG/ACT NASAL SUSPENSION 9395675 FLUTICASONE PROPIONATE Inactive LORTAB 5-500 MG ORAL TABLET 1/2 to 1 tablet by mouth every 4 hours as needed for pain LORTAB 5-500 MG ORAL TABLET HYDROCODONE- ACETAMINOPHEN Inactive RAPAMUNE 1 MG ORAL TABLET 3 tabs in the am RAPAMUNE 1 MG ORAL TABLET 648960 SIROLIMUS Inactive PROGRAF 0.5 MG ORAL CAPSULE Take one by mouth daily with 1 mg PROGRAF 0.5 MG ORAL CAPSULE 918100 TACROLIMUS Inactive FEXOFENADINE HCL 180 MG ORAL TABLET 1 Daily FEXOFENADINE HCL 180 MG ORAL TABLET 851747 FEXOFENADINE HCL Inactive LOTRISONE 1-0.05 % EXTERNAL CREAM Apply twice a day to affected area LOTRISONE 1-0.05 % EXTERNAL CREAM 579007 CLOTRIMAZOLE- BETAMETHASONE Inactive KETOCONAZOLE 2 % EXTERNAL CREAM apply twice a day to rash KETOCONAZOLE 2 % EXTERNAL CREAM 049597 KETOCONAZOLE Inactive AUGMENTIN 875-125 MG ORAL TABLET 1 tab by mouth twice daily with food AUGMENTIN 875-125 MG ORAL TABLET 085632 AMOXICILLIN-POT CLAVULANATE Inactive ZOFRAN 4 MG ORAL TABLET 1 po q6hr PRN Nausea ZOFRAN 4 MG ORAL TABLET 105782 ONDANSETRON HCL Inactive AMOXICILLIN 500 MG ORAL TABLET 2 tabs twice a day for 10 days AMOXICILLIN 500 MG ORAL TABLET 127165 AMOXICILLIN Inactive FLONASE ALLERGY RELIEF 50 MCG/ACT NASAL SUSPENSION 2 sprays each nostril daily PRN allergies FLONASE ALLERGY RELIEF 50 MCG/ACT NASAL SUSPENSION 8543801 FLUTICASONE PROPIONATE Inactive HYDROCODONE-ACETAMINOPHEN 5-325 MG ORAL TABLET 1/2 to 1 po q 4 hours prn pain HYDROCODONE-ACETAMINOPHEN 5-325 MG ORAL TABLET 473036 HYDROCODONE-ACETAMINOPHEN Inactive PREDNISONE 20 MG ORAL TABLET 1 tablet daily x 2 days PREDNISONE 20 MG ORAL TABLET 077900 PREDNISONE Inactive VITAMIN C 500 MG ORAL TABLET CHEWABLE VITAMIN C 500 MG ORAL TABLET CHEWABLE ASCORBIC ACID Inactive AMOXICILLIN 500 MG ORAL CAPSULE 2 po BID x 10 days AMOXICILLIN 500 MG ORAL CAPSULE 555811 AMOXICILLIN Inactive AMOXICILLIN 875 MG ORAL TABLET 1 tab by mouth twice daily AMOXICILLIN 875 MG ORAL TABLET 061057 AMOXICILLIN Inactive AMOXICILLIN 500 MG ORAL CAPSULE 2 po BID x 10 days AMOXICILLIN 500 MG ORAL CAPSULE 760729 AMOXICILLIN Inactive AMOXICILLIN 500 MG ORAL CAPSULE 2 po BID x 10 days AMOXICILLIN 500 MG ORAL CAPSULE 296425 AMOXICILLIN Inactive AUGMENTIN 875-125 MG ORAL TABLET 1 tab by mouth twice daily with food AUGMENTIN 875-125 MG ORAL TABLET 172103 AMOXICILLIN-POT CLAVULANATE Inactive LEVAQUIN 500 MG ORAL TABLET 1 pill by mouth daily LEVAQUIN 500 MG ORAL TABLET 136231 LEVOFLOXACIN Inactive AMOXICILLIN 500 MG ORAL CAPSULE 2 po BID x 10 days AMOXICILLIN 500 MG ORAL CAPSULE 159329 AMOXICILLIN Inactive AMOXICILLIN 500 MG ORAL CAPSULE 1 cap by mouth three times a day AMOXICILLIN 500 MG ORAL CAPSULE 461775 AMOXICILLIN Inactive AUGMENTIN 875-125 MG ORAL TABLET 1 po BID x 10 days AUGMENTIN 875-125 MG ORAL TABLET 020347 AMOXICILLIN-POT CLAVULANATE Inactive PREDNISONE 20 MG ORAL TABLET 2 po qd x 4 days PREDNISONE 20 MG ORAL TABLET 997263 PREDNISONE Inactive AMOXICILLIN 500 MG ORAL TABLET Take two tablets by mouth every 12 hours for 10 days AMOXICILLIN 500 MG ORAL TABLET 698539 AMOXICILLIN Inactive Advance Directives Directive Description Start Date PERMISSION TO SHARE Immunizations Vaccine Administration Date Value Standard Description Seasonal influenza vaccine, injectable, preservative free, for > 3 years old ( Afluria, FluLaval, Fluzone, Fluvirin, Fluarix, Agriflu(>=18 yo)) Fluzone preservative free (>=3 yrs.) [XVN109] Influenza, seasonal, injectable, preservative free Adacel (Tetanus, reduced Diphtheria, and acellular Pertussis Immunization) Adacel [ZEO193] tetanus toxoid, reduced diphtheria toxoid, and acellular [...] ... - Chemistry sodium, serum 137 mmol/L 633-205 7081/04/23 carbon dioxide, venous blood 28.4 mmol/L 21.0-32.0 [...] semiquantitative 5.5 5.0-8.5 Lab Report: VITAMIN D, 25-HYDROXY/43515 - Chemistry vitamin D 25-hydroxy, serum 44 ng/mL 30-100 Encounters Code Encounter Date Provider Facility CPT-49554 Level 3 Est. Patient 10:49:01 CDT Manish Castrejon [facility] CPT-91474 Level 3 Est. Patient 11:35:07 CDT Manish Castrejon [facility] CPT-40611 Level 3 Est. Patient 17:22:36 CDT Tracy Frey [facility] CPT-26739 Level 3 Est. Patient 16:06:03 CDT Manish Castrejon [facility] CPT-85572 Level 3 Est. Patient 09:57:24 CDT Manish Castrejon [facility] CPT-57378 Level 3 Est. Patient 16:31:04 CDT Иван Mooney MD [facility] CPT-09314 Level 4 Est. Patient 12:02:18 CDT Hector Love MD [facility] CPT-17201 Level 3 Est. Patient 16:14:45 CDT Hector Love MD [facility] CPT-50297 Level 3 Est. Patient 16:53:35 CDT Иван Mooney MD [facility] CPT-06289 Level 3 Est. Patient 15:57:13 CDT Martha Montejo RADHA [facility] CPT-94061 Level 3 Est. Patient 14:30:47 CRITICAL CARE NURSE SPECIALIST Hector Love MD [facility] CPT-63260 Level 3 Est. Patient 14:50:45 CDT Hector Love MD [facility] CPT-94237 Level 3 Est. Patient 21:17:30 CDT Jen Crystal MD PhD [facility] CPT-13024 Level 3 Est. Patient 09:32:55 CDT Hector Love MD [facility] CPT-11201 Level 3 Est. Patient 15:11:08 CRITICAL CARE NURSE SPECIALIST Иван Mooney MD [facility] CPT-82992 Level 3 Est. Patient 16:38:53 CRITICAL CARE NURSE SPECIALIST Hector Love MD [facility] CPT-42825 Level 3 Est. Patient 15:46:05 CDT Hector Love MD [facility] CPT-14909 Level 3 Est. Patient 13:59:39 CDT Hector Love MD [facility] CPT-90690 Level 3 Est. Patient 14:44:46 CRITICAL CARE NURSE SPECIALIST Hector Love MD [facility] CPT-78107 Level 3 Est. Patient 17:12:27 CDT Hector Love MD [facility] CPT-95940 Level 3 Est. Patient 15:30:32 CDT Hector Love MD [facility] CPT-79036 Level 3 Est. Patient 14:24:52 CDT Иван Mooney MD [facility] CPT-68949 Level 3 Est. Patient 14:08:38 CRITICAL CARE NURSE SPECIALIST Hector Love MD [facility] Procedures Code Procedure Name Date Entry Date Standard Description CPT-52074 Chest, 2 views 11:04:30 CDT CPT-95743 Venipuncture Draw Fee 16:18:26 CDT CPT-70195 TB Skin Test 09:57:25 CDT CPT-000 Give Appropriate Flu Vaccine 16:22:23 CRITICAL CARE NURSE SPECIALIST CPT-37962 Free T4 - LAB USE ONLY 11:38:58 CDT CPT-50350 TSH - LAB USE ONLY 11:38:58 CDT CPT-55881 Venipuncture Draw Fee 11:38:58 CDT CPT-68823 Fluzone Quadrivalent Intramuscular Suspension 0.5 ML 16: 12:26 CRITICAL CARE NURSE SPECIALIST CPT-91099 Immunization Single Admin 16:12:26 CRITICAL CARE NURSE SPECIALIST CPT-J0561 Bicillin LA 1,200,000 u (PCN G Benzathine) 16:40:23 CDT CPT-27629 Abx/Therapy Injection 16:40:22 CDT CPT-J0561 Bicillin LA 1,200,000 u (PCN G Benzathine) 16:15:35 CDT CPT-59517 Immunization Single Admin 16:11:28 CRITICAL CARE NURSE SPECIALIST CPT-27834 Fluzone Quadrivalent Intramuscular Suspension 0.5 ML 16: 11:28 CRITICAL CARE NURSE SPECIALIST CPT-76872 Administration single or combination vaccine inc oral 13 :57:23 CDT CPT-05173 Menactra Intramuscular Injectable 13:57:23 CDT CPT-96067 First Vx Component - Ix admin via ID IM or jet inj without physician counseling 16:42:17 CRITICAL CARE NURSE SPECIALIST CPT-79588 Fluzone preservative free (>=3 yrs.) 16:42:17 CRITICAL CARE NURSE SPECIALIST 06/03 CPT-15182 Venipuncture Draw Fee 16:29:01 CDT CPT-55615 Chest 2V Frontal and Lat 16:23:56 CDT CPT-60122 Administration single or combination vaccine inc oral 13 :39:17 CRITICAL CARE NURSE SPECIALIST CPT-68429 Tdap 13:39:17 CRITICAL CARE NURSE SPECIALIST
--- OUTSIDE RECORDS SUMMARY | 2018-07-28 18:53 | XMS REPORT | Clinical Summary ---
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 UNIT OPERATOR Other malaise and fatigue Body Mass Index 34.0-34.9 Adult Active Manish Castrejon NUCLEAR UNIT OPERATOR Body Mass Index 34.0-34.9, adult HYPERTENSION [...] MD COUGH ICD-786.2 Inactive Hector Love MD Memory loss ICD-780.93 Inactive Hector Love MD SINUSITIS, ACUTE ICD-461.9 Inactive Hector Love MD Sinusitis, frontal, acute ICD-461.1 Inactive Hector Love MD NEED FOR PROPHYLACTIC VACCINATION WITH STREPTOCOCCUS PNEUMONIAE (PNEUMOCOCCUS) AND INFLUENZA ICD-V06.6 Inactive Hector Love MD Bronchitis ICD-490 Inactive Hector Love MD 2014 Pharyngitis ICD-462 Inactive Hector Lvoe MD Ingrown toenail ICD-703.0 Inactive Hector Love [...] viral, acute ICD-008.8 Inactive Martha Montejo NUCLEAR UNIT OPERATOR Medication List Medication Instructions Start Date Stop Date Generic Name NDC Status Provider Patient Instruction PROGRAF 1 MG ORAL CAPSULE 2 po BID TACROLIMUS 88768089518 Active Hector Love MD Active CETIRIZINE HCL 10 MG ORAL TABLET 1 po qd PRN Allergies CETIRIZINE HCL 29292974543 Active Hector Love MD Active LISINOPRIL 5 MG ORAL TABLET 1.5 po qd LISINOPRIL 05068264708 Active Hector Love MD Active FLUTICASONE PROPIONATE 50 MCG/ACT NASAL SUSPENSION 2 sprays/nostril qd PRN Congestion/Allergies FLUTICASONE PROPIONATE 87783078678 Active Hector Love MD Active VITAMIN C 500 MG ORAL TABLET CHEWABLE ASCORBIC ACID 62794194020 No Longer Active Hector Love MD Active PREDNISONE 20 MG ORAL TABLET 1 tablet daily x 2 days PREDNISONE 54539978047 No Longer Active Manish Castrejon APRN Active AMOXICILLIN 500 MG ORAL TABLET Take two tablets by mouth every 12 hours for 10 days AMOXICILLIN 91385257253 No Longer Active Иван Mooney MD Active PREDNISONE 20 MG ORAL TABLET 2 po qd x 4 days PREDNISONE 01563074973 No Longer Active Hector Love MD Active HYDROCODONE-ACETAMINOPHEN 5-325 MG ORAL TABLET 1/2 to 1 po q 4 hours prn pain HYDROCODONE-ACETAMINOPHEN 98766855041 No Longer Active Hector Love MD Active AUGMENTIN 875-125 MG ORAL TABLET 1 po BID x 10 days AMOXICILLIN-POT CLAVULANATE 22397319111 No Longer Active Hector Love MD Active FLONASE ALLERGY RELIEF 50 MCG/ACT NASAL SUSPENSION 2 sprays each nostril daily PRN allergies FLUTICASONE PROPIONATE 98090264957 No Longer Active Hector Love MD Active AMOXICILLIN 500 MG ORAL CAPSULE 1 cap by mouth three times a day AMOXICILLIN 99602599699 No Longer Active Manish Castrejon APRN Active KEFLEX 500 MG ORAL CAPSULE 1 tab po tid CEPHALEXIN 58987186318 No Longer Active Jillina Fradebora GARCIA Active AMOXICILLIN 500 MG ORAL TABLET 2 tabs twice a day for 10 days AMOXICILLIN 55110374254 No Longer Active Elijahlldenise Fradebora GARCIA Active ZOFRAN 4 MG ORAL TABLET 1 po q6hr PRN Nausea ONDANSETRON HCL 91610025735 No Longer Active Ramona Diggs LPN Active AMOXICILLIN 500 MG ORAL CAPSULE 2 po BID x 10 days AMOXICILLIN 03956586366 No Longer Active Martha Montejo APRN Active AUGMENTIN 875-125 MG ORAL TABLET 1 tab by mouth twice daily with food AMOXICILLIN-POT CLAVULANATE 48097692455 No Longer Active Hector Love MD Active LEVAQUIN 500 MG ORAL TABLET 1 pill by mouth daily LEVOFLOXACIN 63993348491 No Longer Active Jen Crystal MD PhD Active KETOCONAZOLE 2 % EXTERNAL CREAM apply twice a day to rash KETOCONAZOLE 79935104701 No Longer Active Hector Love MD Active AUGMENTIN 875-125 MG ORAL TABLET 1 tab by mouth twice daily with food AMOXICILLIN-POT CLAVULANATE 67974560585 No Longer Active Иван Mooney MD Active LOTRISONE 1-0.05 % EXTERNAL CREAM Apply twice a day to affected area CLOTRIMAZOLE-BETAMETHASONE 73619329101 No Longer Active Иван Mooney MD Active FEXOFENADINE HCL 180 MG ORAL TABLET 1 Daily FEXOFENADINE HCL 05274645832 No Longer Active Hector Love MD Active PROGRAF 0.5 MG ORAL CAPSULE Take one by mouth daily with 1 mg TACROLIMUS 73887876793 No Longer Active Hector Love MD Active AMOXICILLIN 500 MG ORAL CAPSULE 2 po BID x 10 days AMOXICILLIN 00107248831 No Longer Active Hector Love MD Active RAPAMUNE 1 MG ORAL TABLET 3 tabs in the am SIROLIMUS 05224669342 No Longer Active Hector Love MD Active AMOXICILLIN 500 MG ORAL CAPSULE 2 po BID x 10 days AMOXICILLIN 21827049721 No Longer Active Hector Love MD Active LORTAB 5-500 MG ORAL TABLET 1/2 to 1 tablet by mouth every 4 hours as needed for pain HYDROCODONE-ACETAMINOPHEN 66808429586 No Longer Active Hector Love MD Active FLUTICASONE PROPIONATE 50 MCG/ACT NASAL SUSPENSION INSTILL 2 SPRAYS IN EACH NOSTRIL Q D FLUTICASONE PROPIONATE 99993405044 No Longer Active Hector Love MD Active PROGRAF 1 MG ORAL CAPSULE 1 po bid TACROLIMUS 64281404779 No Longer Active Hector Love MD Active AMOXICILLIN 875 MG ORAL TABLET 1 tab by mouth twice daily AMOXICILLIN 02960627167 No Longer Active Hector Love MD Active AMOXICILLIN 500 MG ORAL CAPSULE 2 po BID x 10 days AMOXICILLIN 17700718451 No Longer Active Hector Love MD Active AUGMENTIN 875-125 MG ORAL TABLET 1 tab by mouth twice daily with food AMOXICILLIN-POT CLAVULANATE 22063261587 No Longer Active Hector Love MD Active AZITHROMYCIN 250 MG ORAL TABLET 2 po qd x 1 day, then 1 po qd x 4 days 06/19 AZITHROMYCIN 61983637334 No Longer Active Hector Love MD Active CETIRIZINE HCL 10 MG ORAL TABLET 1 PO Q D CETIRIZINE HCL 58932704884 No Longer Active [place] Active PROGRAF 1 MG ORAL CAPSULE 1 po bid PROGRAF 1 MG ORAL CAPSULE 273040 TACROLIMUS Inactive FLUTICASONE PROPIONATE 50 MCG/ACT NASAL SUSPENSION INSTILL 2 SPRAYS IN EACH NOSTRIL Q D FLUTICASONE PROPIONATE 50 MCG/ACT NASAL SUSPENSION 0971019 FLUTICASONE PROPIONATE Inactive LORTAB 5-500 MG ORAL TABLET 1/2 to 1 tablet by mouth every 4 hours as needed for pain LORTAB 5-500 MG ORAL TABLET HYDROCODONE- ACETAMINOPHEN Inactive RAPAMUNE 1 MG ORAL TABLET 3 tabs in the am RAPAMUNE 1 MG ORAL TABLET 357775 SIROLIMUS Inactive PROGRAF 0.5 MG ORAL CAPSULE Take one by mouth daily with 1 mg PROGRAF 0.5 MG ORAL CAPSULE 989159 TACROLIMUS Inactive FEXOFENADINE HCL 180 MG ORAL TABLET 1 Daily FEXOFENADINE HCL 180 MG ORAL TABLET 064562 FEXOFENADINE HCL Inactive LOTRISONE 1-0.05 % EXTERNAL CREAM Apply twice a day to affected area LOTRISONE 1-0.05 % EXTERNAL CREAM 455088 CLOTRIMAZOLE- BETAMETHASONE Inactive KETOCONAZOLE 2 % EXTERNAL CREAM apply twice a day to rash KETOCONAZOLE 2 % EXTERNAL CREAM 941200 KETOCONAZOLE Inactive AUGMENTIN 875-125 MG ORAL TABLET 1 tab by mouth twice daily with food AUGMENTIN 875-125 MG ORAL TABLET 593024 AMOXICILLIN-POT CLAVULANATE Inactive ZOFRAN 4 MG ORAL TABLET 1 po q6hr PRN Nausea ZOFRAN 4 MG ORAL TABLET 770634 ONDANSETRON HCL Inactive AMOXICILLIN 500 MG ORAL TABLET 2 tabs twice a day for 10 days AMOXICILLIN 500 MG ORAL TABLET 711333 AMOXICILLIN Inactive FLONASE ALLERGY RELIEF 50 MCG/ACT NASAL SUSPENSION 2 sprays each nostril daily PRN allergies FLONASE ALLERGY RELIEF 50 MCG/ACT NASAL SUSPENSION 2348394 FLUTICASONE PROPIONATE Inactive HYDROCODONE-ACETAMINOPHEN 5-325 MG ORAL TABLET 1/2 to 1 po q 4 hours prn pain HYDROCODONE-ACETAMINOPHEN 5-325 MG ORAL TABLET 900270 HYDROCODONE-ACETAMINOPHEN Inactive PREDNISONE 20 MG ORAL TABLET 1 tablet daily x 2 days PREDNISONE 20 MG ORAL TABLET 410283 PREDNISONE Inactive VITAMIN C 500 MG ORAL TABLET CHEWABLE VITAMIN C 500 MG ORAL TABLET CHEWABLE ASCORBIC ACID Inactive AMOXICILLIN 500 MG ORAL CAPSULE 2 po BID x 10 days AMOXICILLIN 500 MG ORAL CAPSULE 926582 AMOXICILLIN Inactive AMOXICILLIN 875 MG ORAL TABLET 1 tab by mouth twice daily AMOXICILLIN 875 MG ORAL TABLET 533491 AMOXICILLIN Inactive AMOXICILLIN 500 MG ORAL CAPSULE 2 po BID x 10 days AMOXICILLIN 500 MG ORAL CAPSULE 782215 AMOXICILLIN Inactive AMOXICILLIN 500 MG ORAL CAPSULE 2 po BID x 10 days AMOXICILLIN 500 MG ORAL CAPSULE 740314 AMOXICILLIN Inactive AUGMENTIN 875-125 MG ORAL TABLET 1 tab by mouth twice daily with food AUGMENTIN 875-125 MG ORAL TABLET 911471 AMOXICILLIN-POT CLAVULANATE Inactive LEVAQUIN 500 MG ORAL TABLET 1 pill by mouth daily LEVAQUIN 500 MG ORAL TABLET 850332 LEVOFLOXACIN Inactive AMOXICILLIN 500 MG ORAL CAPSULE 2 po BID x 10 days AMOXICILLIN 500 MG ORAL CAPSULE 710357 AMOXICILLIN Inactive AMOXICILLIN 500 MG ORAL CAPSULE 1 cap by mouth three times a day AMOXICILLIN 500 MG ORAL CAPSULE 542911 AMOXICILLIN Inactive AUGMENTIN 875-125 MG ORAL TABLET 1 po BID x 10 days AUGMENTIN 875-125 MG ORAL TABLET 892723 AMOXICILLIN-POT CLAVULANATE Inactive PREDNISONE 20 MG ORAL TABLET 2 po qd x 4 days PREDNISONE 20 MG ORAL TABLET 045461 PREDNISONE Inactive AMOXICILLIN 500 MG ORAL TABLET Take two tablets by mouth every 12 hours for 10 days AMOXICILLIN 500 MG ORAL TABLET 869619 AMOXICILLIN Inactive Advance Directives Directive Description Start Date PERMISSION TO SHARE Immunizations Vaccine Administration Date Value Standard Description Seasonal influenza vaccine, injectable, preservative free, for > 3 years old ( Afluria, FluLaval, Fluzone, Fluvirin, Fluarix, Agriflu(>=18 yo)) Fluzone preservative free (>=3 yrs.) [HVH008] Influenza, seasonal, injectable, preservative free Adacel (Tetanus, reduced Diphtheria, and acellular Pertussis Immunization) Adacel [ORV516] tetanus toxoid, reduced diphtheria toxoid, and acellular [...] ... - Chemistry sodium, serum 137 mmol/L 692-997 3228/04/23 carbon dioxide, venous blood 28.4 mmol/L 21.0-32.0 [...] semiquantitative 5.5 5.0-8.5 Lab Report: VITAMIN D, 25-HYDROXY/27297 - Chemistry vitamin D 25-hydroxy, serum 44 ng/mL 30-100 Encounters Code Encounter Date Provider Facility CPT-84078 Level 3 Est. Patient 10:49:01 CDT Manish Castrejon [facility] CPT-82069 Level 3 Est. Patient 11:35:07 CDT Manish Castrejon [facility] CPT-46005 Level 3 Est. Patient 17:22:36 CDT Tracy Frey [facility] CPT-74325 Level 3 Est. Patient 16:06:03 CDT Manish Castrejon [facility] CPT-69133 Level 3 Est. Patient 09:57:24 CDT Manish Castrejon [facility] CPT-98209 Level 3 Est. Patient 16:31:04 CDT Ивна Mooney MD [facility] CPT-93737 Level 4 Est. Patient 12:02:18 CDT Hector Love MD [facility] CPT-23660 Level 3 Est. Patient 16:14:45 CDT Hector Love MD [facility] CPT-13658 Level 3 Est. Patient 16:53:35 CDT Иван Mooney MD [facility] CPT-08781 Level 3 Est. Patient 15:57:13 CDT Martha Montejo RADHA [facility] CPT-20321 Level 3 Est. Patient 14:30:47 DIETETIC AIDE Hector Love MD [facility] CPT-19309 Level 3 Est. Patient 14:50:45 CDT Hector Love MD [facility] CPT-78242 Level 3 Est. Patient 21:17:30 CDT Jen Crystal MD PhD [facility] CPT-00415 Level 3 Est. Patient 09:32:55 CDT Hector Love MD [facility] CPT-13164 Level 3 Est. Patient 15:11:08 DIETETIC AIDE Иван Mooney MD [facility] CPT-84621 Level 3 Est. Patient 16:38:53 DIETETIC AIDE Hector Love MD [facility] CPT-31246 Level 3 Est. Patient 15:46:05 CDT Hector Love MD [facility] CPT-42021 Level 3 Est. Patient 13:59:39 CDT Hector Love MD [facility] CPT-27816 Level 3 Est. Patient 14:44:46 DIETETIC AIDE Hector Love MD [facility] CPT-03510 Level 3 Est. Patient 17:12:27 CDT Hector Love MD [facility] CPT-75237 Level 3 Est. Patient 15:30:32 CDT Hector Love MD [facility] CPT-17276 Level 3 Est. Patient 14:24:52 CDT Иван Mooney MD [facility] CPT-30618 Level 3 Est. Patient 14:08:38 DIETETIC AIDE Hector Love MD [facility] Procedures Code Procedure Name Date Entry Date Standard Description CPT-00882 Chest, 2 views 11:04:30 CDT CPT-24606 Venipuncture Draw Fee 16:18:26 CDT CPT-10281 TB Skin Test 09:57:25 CDT CPT-000 Give Appropriate Flu Vaccine 16:22:23 DIETETIC AIDE CPT-03160 Free T4 - LAB USE ONLY 11:38:58 CDT CPT-01714 TSH - LAB USE ONLY 11:38:58 CDT CPT-94894 Venipuncture Draw Fee 11:38:58 CDT CPT-34907 Fluzone Quadrivalent Intramuscular Suspension 0.5 ML 16: 12:26 DIETETIC AIDE CPT-32888 Immunization Single Admin 16:12:26 DIETETIC AIDE CPT-J0561 Bicillin LA 1,200,000 u (PCN G Benzathine) 16:40:23 CDT CPT-48827 Abx/Therapy Injection 16:40:22 CDT CPT-J0561 Bicillin LA 1,200,000 u (PCN G Benzathine) 16:15:35 CDT CPT-58416 Immunization Single Admin 16:11:28 DIETETIC AIDE CPT-70327 Fluzone Quadrivalent Intramuscular Suspension 0.5 ML 16: 11:28 DIETETIC AIDE CPT-57030 Administration single or combination vaccine inc oral 13 :57:23 CDT CPT-76353 Menactra Intramuscular Injectable 13:57:23 CDT CPT-89300 First Vx Component - Ix admin via ID IM or jet inj without physician counseling 16:42:17 DIETETIC AIDE CPT-74258 Fluzone preservative free (>=3 yrs.) 16:42:17 DIETETIC AIDE 06/03 CPT-37686 Venipuncture Draw Fee 16:29:01 CDT CPT-99790 Chest 2V Frontal and Lat 16:23:56 CDT CPT-79522 Administration single or combination vaccine inc oral 13 :39:17 DIETETIC AIDE CPT-04120 Tdap 13:39:17 DIETETIC AIDE
--- OUTSIDE RECORDS SUMMARY | 2018-07-28 18:54 | XMS REPORT | Clinical Summary ---
Author Author Admin, QIE Organization [facility] Address Unknown Phone Unavailable Allergies, Adverse [...] care facility Fatigue 780.79 Active Manish Castrejon [employer]SEM[employer]ER Other malaise and fatigue Body Mass Index 34.0-34.9 Adult Active Manish Castrejon [employer] Body Mass Index 34.0-34.9, adult FH DIABETES ICD-V18.0 Inactive Hector Love MD BRONCHITIS, ACUTE ICD-466.0 Inactive Hector Love MD KNEE SPRAIN, LEFT ICD-844.9 Inactive Hector Love MD HYPERTENSION ICD-401.9 Inactive Hector Love MD U R I ICD-465.9 Inactive Hector Love MD COSTOCHRONDRITIS ICD-733.6 Inactive Hector Love MD COUGH ICD-786.2 Inactive Hector Love MD Tinea corporis ICD-110.5 Inactive Hector Love MD Sinusitis ICD-461.9 Inactive Hector Love MD Fever ICD-780.60 Inactive Hector Love MD SINUSITIS, ACUTE ICD-461.9 Inactive Hector Love MD Memory loss ICD-780.93 Inactive Hector Love MD FEVER UNSPECIFIED ICD-780.60 Inactive Hector Love MD Sinusitis, frontal, acute ICD-461.1 Inactive Hector Love MD NEED FOR PROPHYLACTIC VACCINATION WITH STREPTOCOCCUS PNEUMONIAE (PNEUMOCOCCUS) AND INFLUENZA ICD-V06.6 Inactive Hector Love MD Bronchitis ICD-490 Inactive Hector Love MD 2014 Gastroenteritis, viral, acute ICD-008.8 Inactive Martha Montejo [employer] Ingrown toenail ICD-703.0 Inactive Hector Love MD [...] MD Pharyngitis ICD-462 Inactive Hector Love MD Medication List Medication Instructions Start Date Stop Date Generic Name NDC Status Provider Patient Instruction PROGRAF 1 MG ORAL CAPSULE 2 po BID TACROLIMUS 19075984376 Active Hector Love MD Active CETIRIZINE HCL 10 MG ORAL TABLET 1 po qd PRN Allergies CETIRIZINE HCL 19353235408 Active Hector Love MD Active LISINOPRIL 5 MG ORAL TABLET 1.5 po qd LISINOPRIL 34735258698 Vivek Love MD Active FLUTICASONE PROPIONATE 50 MCG/ACT NASAL SUSPENSION 2 sprays/nostril qd PRN Congestion/Allergies FLUTICASONE PROPIONATE 53369076121 Active Hector Love MD Active VITAMIN C 500 MG ORAL TABLET CHEWABLE ASCORBIC ACID 77644096820 No Longer Active Hector Love MD Active PREDNISONE 20 MG ORAL TABLET 1 tablet daily x 2 days PREDNISONE 99548297740 No Longer Active Manish Castrejon APRN Active AMOXICILLIN 500 MG ORAL TABLET Take two tablets by mouth every 12 hours for 10 days AMOXICILLIN 56479188927 No Longer Active Иван Mooney MD Active PREDNISONE 20 MG ORAL TABLET 2 po qd x 4 days PREDNISONE 26705841926 No Longer Active Hector Love MD Active HYDROCODONE-ACETAMINOPHEN 5-325 MG ORAL TABLET 1/2 to 1 po q 4 hours prn pain HYDROCODONE-ACETAMINOPHEN 47338736224 No Longer Active Hector Love MD Active AUGMENTIN 875-125 MG ORAL TABLET 1 po BID x 10 days AMOXICILLIN-POT CLAVULANATE 26973800483 No Longer Active Hector Love MD Active FLONASE ALLERGY RELIEF 50 MCG/ACT NASAL SUSPENSION 2 sprays each nostril daily PRN allergies FLUTICASONE PROPIONATE 89602278457 No Longer Active Hector Love MD Active AMOXICILLIN 500 MG ORAL CAPSULE 1 cap by mouth three times a day AMOXICILLIN 17928025343 No Longer Active Manish Castrejon APRN Active KEFLEX 500 MG ORAL CAPSULE 1 tab po tid CEPHALEXIN 26914268841 No Longer Active Jillina Fradebora GARCIA Active AMOXICILLIN 500 MG ORAL TABLET 2 tabs twice a day for 10 days AMOXICILLIN 83199607477 No Longer Active Jilldenise Fradebora GARCIA Active ZOFRAN 4 MG ORAL TABLET 1 po q6hr PRN Nausea ONDANSETRON HCL 90928091520 No Longer Active Ramona Diggs LPN Active AMOXICILLIN 500 MG ORAL CAPSULE 2 po BID x 10 days AMOXICILLIN 94529298365 No Longer Active Martha Montejo APRN Active AUGMENTIN 875-125 MG ORAL TABLET 1 tab by mouth twice daily with food AMOXICILLIN-POT CLAVULANATE 48892552026 No Longer Active Hector Love MD Active LEVAQUIN 500 MG ORAL TABLET 1 pill by mouth daily LEVOFLOXACIN 06297361308 No Longer Active Jen Crystal MD PhD Active KETOCONAZOLE 2 % EXTERNAL CREAM apply twice a day to rash KETOCONAZOLE 60212698208 No Longer Active Hector Love MD Active AUGMENTIN 875-125 MG ORAL TABLET 1 tab by mouth twice daily with food AMOXICILLIN-POT CLAVULANATE 52793427802 No Longer Active Иван Mooney MD Active LOTRISONE 1-0.05 % EXTERNAL CREAM Apply twice a day to affected area CLOTRIMAZOLE-BETAMETHASONE 95048977880 No Longer Active Иван Mooney MD Active FEXOFENADINE HCL 180 MG ORAL TABLET 1 Daily FEXOFENADINE HCL 56401361897 No Longer Active Hector oLve MD Active PROGRAF 0.5 MG ORAL CAPSULE Take one by mouth daily with 1 mg TACROLIMUS 51320949519 No Longer Active Hector Love MD Active AMOXICILLIN 500 MG ORAL CAPSULE 2 po BID x 10 days AMOXICILLIN 28598529735 No Longer Active Hector Love MD Active RAPAMUNE 1 MG ORAL TABLET 3 tabs in the am SIROLIMUS 84832320789 No Longer Active Hector Love MD Active AMOXICILLIN 500 MG ORAL CAPSULE 2 po BID x 10 days AMOXICILLIN 82535396306 No Longer Active Hector Love MD Active LORTAB 5-500 MG ORAL TABLET 1/2 to 1 tablet by mouth every 4 hours as needed for pain HYDROCODONE-ACETAMINOPHEN 21146541493 No Longer Active Hector Love MD Active FLUTICASONE PROPIONATE 50 MCG/ACT NASAL SUSPENSION INSTILL 2 SPRAYS IN EACH NOSTRIL Q D FLUTICASONE PROPIONATE 47609726126 No Longer Active Hector Love MD Active PROGRAF 1 MG ORAL CAPSULE 1 po bid TACROLIMUS 13033095282 No Longer Active Hector Love MD Active AMOXICILLIN 875 MG ORAL TABLET 1 tab by mouth twice daily AMOXICILLIN 51237388512 No Longer Active Hector Love MD Active AMOXICILLIN 500 MG ORAL CAPSULE 2 po BID x 10 days AMOXICILLIN 15311909735 No Longer Active Hector Love MD Active AUGMENTIN 875-125 MG ORAL TABLET 1 tab by mouth twice daily with food AMOXICILLIN-POT CLAVULANATE 71287217187 No Longer Active Hector Love MD Active AZITHROMYCIN 250 MG ORAL TABLET 2 po qd x 1 day, then 1 po qd x 4 days 06/19 AZITHROMYCIN 78125360994 No Longer Active Hector Love MD Active CETIRIZINE HCL 10 MG ORAL TABLET 1 PO Q D CETIRIZINE HCL 17831332972 No Longer Active Waleska Leawood Active PROGRAF 1 MG ORAL CAPSULE 1 po bid PROGRAF 1 MG ORAL CAPSULE 263425 TACROLIMUS Inactive FLUTICASONE PROPIONATE 50 MCG/ACT NASAL SUSPENSION INSTILL 2 SPRAYS IN EACH NOSTRIL Q D FLUTICASONE PROPIONATE 50 MCG/ACT NASAL SUSPENSION 3012418 FLUTICASONE PROPIONATE Inactive LORTAB 5-500 MG ORAL TABLET 1/2 to 1 tablet by mouth every 4 hours as needed for pain LORTAB 5-500 MG ORAL TABLET HYDROCODONE- ACETAMINOPHEN Inactive RAPAMUNE 1 MG ORAL TABLET 3 tabs in the am RAPAMUNE 1 MG ORAL TABLET 858996 SIROLIMUS Inactive PROGRAF 0.5 MG ORAL CAPSULE Take one by mouth daily with 1 mg PROGRAF 0.5 MG ORAL CAPSULE 855963 TACROLIMUS Inactive FEXOFENADINE HCL 180 MG ORAL TABLET 1 Daily FEXOFENADINE HCL 180 MG ORAL TABLET 419485 FEXOFENADINE HCL Inactive LOTRISONE 1-0.05 % EXTERNAL CREAM Apply twice a day to affected area LOTRISONE 1-0.05 % EXTERNAL CREAM 250869 CLOTRIMAZOLE- BETAMETHASONE Inactive KETOCONAZOLE 2 % EXTERNAL CREAM apply twice a day to rash KETOCONAZOLE 2 % EXTERNAL CREAM 295952 KETOCONAZOLE Inactive AUGMENTIN 875-125 MG ORAL TABLET 1 tab by mouth twice daily with food AUGMENTIN 875-125 MG ORAL TABLET 492887 AMOXICILLIN-POT CLAVULANATE Inactive ZOFRAN 4 MG ORAL TABLET 1 po q6hr PRN Nausea ZOFRAN 4 MG ORAL TABLET 577230 ONDANSETRON HCL Inactive AMOXICILLIN 500 MG ORAL TABLET 2 tabs twice a day for 10 days AMOXICILLIN 500 MG ORAL TABLET 285623 AMOXICILLIN Inactive FLONASE ALLERGY RELIEF 50 MCG/ACT NASAL SUSPENSION 2 sprays each nostril daily PRN allergies FLONASE ALLERGY RELIEF 50 MCG/ACT NASAL SUSPENSION 3643492 FLUTICASONE PROPIONATE Inactive HYDROCODONE-ACETAMINOPHEN 5-325 MG ORAL TABLET 1/2 to 1 po q 4 hours prn pain HYDROCODONE-ACETAMINOPHEN 5-325 MG ORAL TABLET 794876 HYDROCODONE-ACETAMINOPHEN Inactive PREDNISONE 20 MG ORAL TABLET 1 tablet daily x 2 days PREDNISONE 20 MG ORAL TABLET 527644 PREDNISONE Inactive VITAMIN C 500 MG ORAL TABLET CHEWABLE VITAMIN C 500 MG ORAL TABLET CHEWABLE ASCORBIC ACID Inactive AMOXICILLIN 500 MG ORAL CAPSULE 2 po BID x 10 days AMOXICILLIN 500 MG ORAL CAPSULE 215964 AMOXICILLIN Inactive AMOXICILLIN 875 MG ORAL TABLET 1 tab by mouth twice daily AMOXICILLIN 875 MG ORAL TABLET 122817 AMOXICILLIN Inactive AMOXICILLIN 500 MG ORAL CAPSULE 2 po BID x 10 days AMOXICILLIN 500 MG ORAL CAPSULE 309813 AMOXICILLIN Inactive AMOXICILLIN 500 MG ORAL CAPSULE 2 po BID x 10 days AMOXICILLIN 500 MG ORAL CAPSULE 821292 AMOXICILLIN Inactive AUGMENTIN 875-125 MG ORAL TABLET 1 tab by mouth twice daily with food AUGMENTIN 875-125 MG ORAL TABLET 938067 AMOXICILLIN-POT CLAVULANATE Inactive LEVAQUIN 500 MG ORAL TABLET 1 pill by mouth daily LEVAQUIN 500 MG ORAL TABLET 658133 LEVOFLOXACIN Inactive AMOXICILLIN 500 MG ORAL CAPSULE 2 po BID x 10 days AMOXICILLIN 500 MG ORAL CAPSULE 551514 AMOXICILLIN Inactive AMOXICILLIN 500 MG ORAL CAPSULE 1 cap by mouth three times a day AMOXICILLIN 500 MG ORAL CAPSULE 261454 AMOXICILLIN Inactive AUGMENTIN 875-125 MG ORAL TABLET 1 po BID x 10 days AUGMENTIN 875-125 MG ORAL TABLET 527387 AMOXICILLIN-POT CLAVULANATE Inactive PREDNISONE 20 MG ORAL TABLET 2 po qd x 4 days PREDNISONE 20 MG ORAL TABLET 846370 PREDNISONE Inactive AMOXICILLIN 500 MG ORAL TABLET Take two tablets by mouth every 12 hours for 10 days AMOXICILLIN 500 MG ORAL TABLET 875477 AMOXICILLIN Inactive Advance Directives Directive Description Start Date PERMISSION TO SHARE Immunizations Vaccine Administration Date Value Standard Description Seasonal influenza vaccine, injectable, preservative free, for > 3 years old ( Afluria, FluLaval, Fluzone, Fluvirin, Fluarix, Agriflu(>=18 yo)) Fluzone preservative free (>=3 yrs.) [FIQ518] Influenza, seasonal, injectable, preservative free Adacel (Tetanus, reduced Diphtheria, and acellular Pertussis Immunization) Adacel [PHO398] tetanus toxoid, reduced diphtheria toxoid, and acellular [...] ... - Chemistry sodium, serum 137 mmol/L 025-455 5637/04/23 carbon dioxide, venous blood 28.4 mmol/L 21.0-32.0 [...] Hormo ... - Hematology erythrocyte (RBC) count 5.24 10^6/MM^3 10*6/mm3 4.50-6.50 lymphocytes as percent of blood leukocytes 30.8 % 20.5-51.1 monocytes as percent of blood leukocytes 8.3 % 1.7-9.3 neutrophils as percent of blood leukocytes 56.5 % 42.2-75.2 leukocyte count, blood 7.9 10^3/MM^3 10*3/mm3 4.6-10.2 hemoglobin, blood 15.8 g/dL 14.0-18.0 hematocrit, blood [...] semiquantitative 5.5 5.0-8.5 Lab Report: VITAMIN D, 25-HYDROXY/21071 - Chemistry vitamin D 25-hydroxy, serum 44 ng/mL 30-100 Encounters Code Encounter Date Provider Facility CPT-78785 Level 3 Est. Patient 10:49:01 CDT Manish Castrejon [facility] CPT-39175 Level 3 Est. Patient 11:35:07 CDT Manish Castrejon [facility] CPT-20910 Level 3 Est. Patient 17:22:36 CDT Tracy Frey [facility] CPT-01387 Level 3 Est. Patient 16:06:03 CDT Manish Castrejon [facility] CPT-05777 Level 3 Est. Patient 09:57:24 CDT Manish Castrejon [facility] CPT-08351 Level 3 Est. Patient 16:31:04 CDT Иван Mooney MD [facility] CPT-96551 Level 4 Est. Patient 12:02:18 CDT Hector Love MD [facility] CPT-69118 Level 3 Est. Patient 16:14:45 CDT Hector Love MD [facility] CPT-26702 Level 3 Est. Patient 16:53:35 CDT Иван Mooney MD [facility] CPT-84093 Level 3 Est. Patient 15:57:13 CDT Martha Montejo RADHA [facility] CPT-57903 Level 3 Est. Patient 14:30:47 CARGO WORKER Hector Love MD [facility] CPT-91357 Level 3 Est. Patient 14:50:45 CDT Hector Love MD [facility] CPT-85698 Level 3 Est. Patient 21:17:30 CDT Jen Crystal MD PhD [facility] CPT-91229 Level 3 Est. Patient 09:32:55 CDT Hector Love MD [facility] CPT-91982 Level 3 Est. Patient 15:11:08 CARGO WORKER Иван Mooney MD [facility] CPT-56799 Level 3 Est. Patient 16:38:53 CARGO WORKER Hector Love MD [facility] CPT-92391 Level 3 Est. Patient 15:46:05 CDT Hecotr Love MD [facility] CPT-18686 Level 3 Est. Patient 13:59:39 CDT Hector Love MD [facility] CPT-06537 Level 3 Est. Patient 14:44:46 CARGO WORKER Hector Love MD [facility] CPT-81800 Level 3 Est. Patient 17:12:27 CDT Hector Love MD [facility] CPT-41091 Level 3 Est. Patient 15:30:32 CDT Hector Love MD [facility] CPT-64676 Level 3 Est. Patient 14:24:52 CDT Иван Mooney MD [facility] CPT-96795 Level 3 Est. Patient 14:08:38 CARGO WORKER Hector Love MD [facility] Procedures Code Procedure Name Date Entry Date Standard Description CPT-29381 Chest, 2 views 11:04:30 CDT CPT-26563 Venipuncture Draw Fee 16:18:26 CDT CPT-69609 TB Skin Test 09:57:25 CDT CPT-000 Give Appropriate Flu Vaccine 16:22:23 CARGO WORKER CPT-05542 Free T4 - LAB USE ONLY 11:38:58 CDT CPT-50610 TSH - LAB USE ONLY 11:38:58 CDT CPT-34045 Venipuncture Draw Fee 11:38:58 CDT CPT-63732 Fluzone Quadrivalent Intramuscular Suspension 0.5 ML 16: 12:26 CARGO WORKER CPT-14734 Immunization Single Admin 16:12:26 CARGO WORKER CPT-J0561 Bicillin LA 1,200,000 u (PCN G Benzathine) 16:40:23 CDT CPT-88843 Abx/Therapy Injection 16:40:22 CDT CPT-J0561 Bicillin LA 1,200,000 u (PCN G Benzathine) 16:15:35 CDT CPT-20284 Immunization Single Admin 16:11:28 CARGO WORKER CPT-02179 Fluzone Quadrivalent Intramuscular Suspension 0.5 ML 16: 11:28 CARGO WORKER CPT-34726 Administration single or combination vaccine inc oral 13 :57:23 CDT CPT-45257 Menactra Intramuscular Injectable 13:57:23 CDT CPT-36477 First Vx Component - Ix admin via ID IM or jet inj without physician counseling 16:42:17 CARGO WORKER CPT-14102 Fluzone preservative free (>=3 yrs.) 16:42:17 CARGO WORKER 06/03 CPT-48204 Venipuncture Draw Fee 16:29:01 CDT CPT-64034 Chest 2V Frontal and Lat 16:23:56 CDT CPT-95950 Administration single or combination vaccine inc oral 13 :39:17 CARGO WORKER CPT-69429 Tdap 13:39:17 CARGO WORKER
--- OUTSIDE RECORDS SUMMARY | 2018-07-28 20:01 | XMS REPORT | Continuity of Care Document ---
Author Author [facility] Address Unknown Phone Unavailable Allergies Active Description [...] Yes Rocephin Drug N/A N/A Yes ceftriaxone [id number] Drug Allergy Unknown N/A 08/13/2012 Yes promethazine [id number] Drug Allergy Unknown N/A 08/13/2012 Yes mycin mycin Unknown N/A 11/06/2017 Yes tylenol and benadryl tylenol and benadryl Unknown N/A 11/06/2017 Yes ceftriaxone [id number] Drug Allergy Unknown N/A 07/28/2018 Yes ibuprofen [id number] Drug Allergy Unknown N/A 07/28/2018 Yes promethazine [id number] Drug Allergy Unknown N/A 07/28/2018 Medications There is no data. Problems Date [...] Ot Z95.2 PRESENCE OF PROSTHETIC HEART VALVE 01/27/2018 [facility] DO, PERI Interiano Ot S83.91XA SPRAIN OF UNSPECIFIED SITE OF RIGHT KNEE 01/27/2018 [facility], PERI K Ot S89.91XA UNSPECIFIED INJURY OF RIGHT LOWER LEG, I 01/27/2018 DECATUR DO, PERI K Ot X50.1XXA OVEREXERTION FROM PROLONGED STATIC OR AW 01/27/2018 [facility], PERI K Ot Y92.[address] 01/27/2018 [facility], PERI K Ot Y99.0 CIVILIAN ACTIVITY DONE FOR INCOME OR PAY 01/27/2018 [facility], PERI Jaydon Ot Z88.1 ALLERGY STATUS TO OTHER ANTIBIOTIC AGENT 01/27/2018 [facility], PERI K Ot Z88.6 ALLERGY STATUS TO ANALGESIC AGENT STATUS 01/27/2018 [facility], PERI K Ot Z88.8 ALLERGY STATUS TO OTH DRUG/MEDS/BIOL SUB 01/27/2018 [facility], PERI K Ot Z94.4 LIVER TRANSPLANT STATUS 01/27/2018 [facility], PERI K Ot Z95.2 PRESENCE OF PROSTHETIC HEART VALVE 02/01/2018 [facility], PERI K Ot S83.91XA SPRAIN OF UNSPECIFIED SITE OF RIGHT KNEE 02/01/2018 [facility], PERI K Ot S89.91XA UNSPECIFIED INJURY OF RIGHT LOWER LEG, I 02/01/2018 [facility], PERI K Ot X50.1XXA OVEREXERTION FROM PROLONGED STATIC OR AW 02/01/2018 [facility], PERI K Ot Y92.[address] 02/01/2018 [facility] PERI K Ot Y99.0 CIVILIAN ACTIVITY DONE FOR INCOME OR PAY 02/01/2018 [facility] PERI K Ot Z88.1 ALLERGY STATUS TO OTHER ANTIBIOTIC AGENT 02/01/2018 [facility] PERI K Ot Z88.6 ALLERGY STATUS TO ANALGESIC AGENT STATUS 02/01/2018 [facility], PERI K Ot Z88.8 ALLERGY STATUS TO OTH DRUG/MEDS/BIOL SUB 02/01/2018 [facility] PERI K Ot Z94.4 LIVER TRANSPLANT STATUS 02/01/2018 [facility], PERI K Ot Z95.2 PRESENCE OF PROSTHETIC HEART VALVE Procedures Code [place] [address] SPECIAL SUPPLIES JULIO GONZALES, SAUL R 09/16/2011 96364 HETEROPHILE ANTIBODIES 01/17/2015 V2020 [employer] frames purchases 06/05/2016 22033 CULTURE ROSELINE THOMPSON CARLOSUREKHA 12/29/2016 00156 EYE EXAM ESTABLISHED PAT 04/27/2017 45987 REFRACTION 04/27/2017 V2020 [employer] frames purchases [...] Status Pt. Type Provider Facility Loc./Unit Complaint [id number] 12/29/2016 17:02:00 12/29/2016 17:02:00 DIS Outpatient ALYSSA THOMPSON [facility] [id number] 09/16/2011 13:24:00 Document Registration [id number] 09/09/2017 09:27:01 ACT Unknown Hector Love MD 09/09/2017 13:39:48 ACT Document Registration [id number] 07/24/2017 22:54:00 07/25/2017 00:28:00 DIS Emergency BEBETO SANTANA [facility] ED ED visit [id number] 01/14/2017 17:08:00 01/14/2017 18:30:00 DIS Emergency ALEJO HILL [facility] ED chest pain, tighness, fatigue [id number] 01/26/2018 23:52:00 01/27/2018 01:45:00 DIS Emergency PERI ARDON DO [facility] ER RT KNEE PAIN-WC [id number] 11/06/2017 00:54:00 11/06/2017 03:27:00 DIS Emergency ÓSCAR GONZALES, DEON Cox [facility] ER RASH BOTH LEGS,PT STS HAD LIVER TRANSPLANT IN 2001 [id number] 07/28/2018 18:37:00 ACT Emergency DEON CANTRELL MD [facility] ER MASS ON UPPER ABDOMEN [id number] 12/24/2017 18:24:00 Document Registration [id number] 04/27/2017 09:30:00 Document Registration [id number] 04/27/2017 00:00:00 Document Registration [id number] 06/05/2016 00:00:00 Document Registration [id number] 06/20/2015 00:15:00 06/20/2015 02:00:00 DIS Emergency ATA KRISHNAN [facility] EMR [id number] 03/12/2015 22:08:00 03/13/2015 00:45:00 DIS Emergency ALEJO DOTSON [facility] EMR [id number] 01/17/2015 17:44:00 01/17/2015 17:44:00 DIS Outpatient HECTOR LOVE [facility]- [id number] 04/16/2014 00:00:00 Document Registration [id number] 04/16/2014 00:00:00 Document Registration [id number] 10/04/2016 02:00:00 10/04/2016 03:05:00 DIS Emergency YRIS HERNANDEZ MD [facility] ER POSSIBLE INSECT BITE [id number] 06/12/2016 21:25:00 06/12/2016 23:10:00 DIS Emergency BELÉN ZUÑIGA [facility] ER N/V [id number] 06/11/2016 13:25:00 06/11/2016 14:35:00 DIS Emergency PERI FLYNN APRN [facility] ER SORE THROAT [id number] 07/06/2017 23:11:00 Document Registration [id number] 11/12/2015 10:06:00 Document Registration [id number] 08/27/2015 09:45:00 Document Registration [id number] 05/17/2015 11:34:00 Document Registration [id number] 02/21/2015 07:41:00 Document Registration [id number] 08/30/2014 09:13:00 Document Registration [id number] 06/05/2014 09:50:00 Document Registration [id number] 05/08/2014 11:22:00 Document Registration [id number] 01/17/2014 10:18:00 Document Registration [id number] 12/06/2013 13:31:00 Document Registration [id number] 10/27/2013 12:01:00 Document Registration [id number] 08/12/2013 07:43:00 Document Registration [id number] 07/20/2013 15:10:00 Document Registration [id number] 05/17/2013 10:35:00 Document Registration [id number] 02/21/2013 07:17:00 Document Registration [id number] 02/14/2013 07:16:00 Document Registration [id number] 02/01/2013 07:08:00 Document Registration [id number] 01/26/2013 15:25:00 Document Registration [id number] 01/26/2013 07:02:00 Document Registration [id number] 01/18/2013 07:13:00 Document Registration [id number] 01/10/2013 08:09:00 Document Registration [id number] 01/05/2013 06:35:00 Document Registration [id number] 11/29/2012 09:14:00 Document Registration [id number] 09/18/2012 10:45:00 Document Registration [id number] 06/18/2012 11:54:00 Document Registration [id number] 05/31/2012 08:27:00 Document Registration [id number] 04/28/2012 12:00:00 Document Registration [id number] 04/27/2012 12:15:00 Document Registration [id number] 04/13/2012 10:33:00 Document Registration [id number] 03/30/2012 10:55:00 Document Registration [id number] 03/09/2012 07:45:00 Document Registration [id number] 03/02/2012 08:00:00 Document Registration
[2018-07-28] MEDS ORDERED: SULF1TAB35 PO (20:02)
--- NOTE | 2018-07-28 20:03 | ED Integumentary General ---
General Chief Complaint: Skin/Wound Problems Stated Complaint: MASS ON UPPER ABDOMEN Nursing Triage Note: PT REPORTS NOTICING A SMALL "MASS" STARTING AT THIS INCISION ON ABDOMEN ABOUD 4 DAYS AGO, STATED IT WAS SIZE OF PEA. PT REPORTS MASS IS NOW SIZE OF GOLF BALL AND PAINFUL WHEN PRESSURE IS APPLIED. Source: patient, family (dad) Exam Limitations: no limitations History of Present Illness Date Seen by Provider: Jul 28, 2018 Time Seen by Provider: 19:48 Initial Comments Patient presents to ER by private conveyance with his father and chief complaint that for the past day and half he's had a slowly developing redness, tender nodule over the base of the sternum along the scar line from his previous open heart surgery and hepatic transplant surgery. He's had no fever chills nausea vomiting diarrhea. No pointing or discharge from the area. He does not have a history of hidradenitis separative up. He's never had an abscess before. Allergies and Home Medications Allergies Coded Allergies: ceftriaxone (Verified Allergy, Unknown, 07/28/18) ibuprofen (Verified Allergy, Unknown, 07/28/18) promethazine (Verified Allergy, Unknown, 07/28/18) Uncoded Allergies: mycin (Allergy, Unknown, 11/06/17) tylenol and benadryl (Allergy, Unknown, 11/06/17) can take seperately but not together Home Medications Ondansetron 4 Mg Tab.rapdis, 4 MG PO Q6H PRN for NAUSEA/VOMITING Prescribed by: DEON CANTRELL on 11/06/17 0311 Tramadol HCl 50 Mg Tablet, 50 MG PO Q4H Prescribed by: PERI ARDON on 01/27/18 0111 Patient Home Medication List Home Medication List Reviewed: Yes Review of Systems Review of Systems Constitutional: No chills, No fever, No malaise EENTM: No ear discharge, No ear pain Respiratory: No cough, No short of breath Cardiovascular: No chest pain, No edema Gastrointestinal: No abdominal pain, No nausea, No vomiting Genitourinary: No discharge, No dysuria Musculoskeletal: No joint pain, No joint swelling Skin: see HPI; No pruritus, No rash Past Qgcvkps-Mcixkn-Zeched Hx Patient Social History Alcohol Use: Denies Use Recreational Drug Use: No Smoking Status: Never a Smoker 2nd Hand Smoke Exposure: No Recent Foreign Travel: No Contact w/Someone Who Travel: No Recent Infectious Disease Expo: No Recent Hopitalizations: No Seasonal Allergies Seasonal Allergies: No Past Medical History Surgeries: Yes Adenoidectomy, Cardiac, Liver Transplant, Open Heart Surgery, Tonsillectomy Respiratory: No Cardiac: Yes (MITRAL VALVE STENOSIS--S/P REPAIR; SUBAORTIC STENOSIS-S/P REPAIR) Congenital Heart Disease, Hypertension, Valvular Heart Disease Neurological: No Genitourinary: No Gastrointestinal: Yes (BILIARY ATRESIA; S/P KASAI PROCEDURE; S/P LIVER TRANSPLANT) Endocrine: No HEENT: No Cancer: No Psychosocial: No Integumentary: No Blood Disorders: No Physical Exam Vital Signs Vital Signs - First Documented 07/28/18 19:06 Temp 97.5 Pulse 96 Resp 12 B/P (MAP) 126/61 (82) Pulse Ox 97 Capillary Refill : Less Than 3 Seconds General Appearance: WD/WN, no apparent distress HEENT: PERRL/EOMI, pharynx normal Cardiovascular: normal peripheral pulses, regular rate, rhythm Respiratory: no respiratory distress, no accessory muscle use Gastrointestinal: non tender, soft Skin: other (Just overlying the xiphoid process is a small tender nodule or mass without pointing. It's erythematous, but there is no discharge.) Progress/Results/Core Measures Results/Orders Vital Signs/I&O 07/28/18 19:06 Temp 97.5 Pulse 96 Resp 12 B/P (MAP) 126/61 (82) Pulse Ox 97 Blood Pressure Mean: 82 Progress Progress Note : Time: 19:59 Progress Note The patient does not have a PCP because they recently moved here. We discussed the option of putting him on antibiotics to see if it improved versus doing a I& D. He would prefer not to do an I&D right now and trial of antibiotics and warm compresses. We've asked that he follow up with primary care or here if it's not getting better in 3-4 days. We'll put him on Bactrim DS 2 tablets twice a day for a week. Departure Impression Primary Impression: Abscess Disposition: 01 HOME, SELF-CARE Condition: Stable Departure-Patient Inst. Decision time for Depature: 20:00 Referrals: NO,LOCAL PHYSICIAN (PCP/Family) Primary Care Physician Patient Instructions: LOCAL PHYSICIAN LIST, Skin Abscess Add. Discharge Instructions: Keep the site of the skin clean with regular soap and water. Apply hot compresses as often as necessary to help with pain and to bring more blood flow to the area. Start the Bactrim DS 2 tablets twice a day with food. Tylenol 1000 mg every 8 hours in addition to ibuprofen 800 mg every 8 hours as necessary for pain. Return to the ER or primary care physician if not seeing some improvement in 3- 4 days or to begin to have systemic symptoms such as nausea vomiting, fevers etc. You can take probiotics one capsule [id number] twice a day with the antibiotics to help prevent diarrhea oftentimes associated with antibiotic use. All discharge instructions reviewed with patient and/or family. Voiced understanding. Scripts Sulfamethoxazole/Trimethoprim (Bactrim Ds Tablet) 1 Each Tablet 2 EACH PO BID for 7 Days, #28 TAB 0 Refills Prov: DEON CANTRELL 07/28/18 Work/School Note: Work Release Form Date Seen in the Emergency Department: Jul 28, 2018 Return to Work: Jul 29, 2018 Restrictions: No Restrictions DEON CANTRELL Jul 28, 2018 20:03
[2018-07-28 20:08] VITALS: BP 126/61
== END 2018-07-28 20:08 | disposition home or self-care (01) ==
LOC: EDUNIT# 18:36 → ER 18:37
DX: L02.211 Cutaneous abscess of abdominal wall (principal); I10 Essential (primary) hypertension; Z88.8 Allergy status to other drugs, medicaments and biological substances; Z88.6 Allergy status to analgesic agent; Z88.1 Allergy status to other antibiotic agents; Z90.89 Acquired absence of other organs; Z94.4 Liver transplant status; Z98.890 Other specified postprocedural states; Z86.79 Personal history of other diseases of the circulatory system
CPT/HCPCS: 99282

== ENCOUNTER 2018-08-02 09:34 | Outpatient (RCR) | payer MEDICAID ==
[~2018-08-02 09:34] MED LIST changes: +SULF1TAB35 PO
[2018-08-02 09:53] LABS: BASOPHILS % (AUTO) 0 % (0-10); EOSINOPHILS # (AUTO) 0.2 10^3/uL (0.0-0.3); EOSINOPHILS % (AUTO) 2 % (0-10); HEMATOCRIT 42 % (40-54); HEMOGLOBIN 15.2 G/DL (13.3-17.7); LYMPHOCYTES # (AUTO) 3.5 X 10^3 (1.0-4.0); LYMPHOCYTES % (AUTO) 31 % (12-44); MEAN CORPUSCULAR HEMOGLOBIN 30 PG (25-34); MEAN CORPUSCULAR HGB CONC 36 G/DL (32-36); MEAN CORPUSCULAR VOLUME 83 FL (80-99); MEAN PLATELET VOLUME 10.3 FL (7.4-10.4); MONOCYTES # (AUTO) 1.5 X 10^3 (0.0-1.0); MONOCYTES % (AUTO) 13 % (0-12); NEUTROPHILS # (AUTO) 6.1 X 10^3 (1.8-7.8); NEUTROPHILS % (AUTO) 54 % (42-75); PLATELET COUNT 261 10^3/uL (130-400); RED CELL DISTRIBUTION WIDTH 13.5 % (10.0-14.5); WHITE BLOOD COUNT 11.3 10^3/uL (4.3-11.0)
[2018-08-02 10:10] LABS: ALANINE AMINOTRANSFERASE 32 U/L (0-55); ALBUMIN 4.7 GM/DL (3.2-4.5); ALKALINE PHOSPHATASE 57 U/L (40-136); BUN/CREATININE RATIO 15; CALCIUM 9.9 MG/DL (8.5-10.1); CARBON DIOXIDE 23 MMOL/L (21-32); CHLORIDE 100 MMOL/L (98-107); CREATININE SERUM 0.98 MG/DL (0.60-1.30); GFR ESTIMATED > 60; GLUCOSE 118 MG/DL (70-105); POTASSIUM 3.7 MMOL/L (3.6-5.0); SODIUM 134 MMOL/L (135-145); TOTAL PROTEIN 8.1 GM/DL (6.4-8.2)
== END 2018-10-31 | disposition home or self-care (01) ==
LOC: LAB 09:34
PROVIDERS: ATTEND Internal Medicine
DX: Z94.4 Liver transplant status (principal); Z79.899 Other long term (current) drug therapy
CPT/HCPCS: 36415; 80053; 82977; 85025

== ENCOUNTER 2018-12-15 13:18 | Outpatient (RCR) | payer MEDICAID ==
[2018-12-15 13:40] LABS: BASOPHILS # (AUTO) 0.1 10^3/uL (0.0-0.1); BASOPHILS % (AUTO) 1 % (0-10); EOSINOPHILS # (AUTO) 0.3 10^3/uL (0.0-0.3); EOSINOPHILS % (AUTO) 3 % (0-10); HEMATOCRIT 48 % (40-54); HEMOGLOBIN 15.2 G/DL (13.3-17.7); LYMPHOCYTES # (AUTO) 3.2 X 10^3 (1.0-4.0); LYMPHOCYTES % (AUTO) 31 % (12-44); MEAN CORPUSCULAR HEMOGLOBIN 27 PG (25-34); MEAN CORPUSCULAR HGB CONC 32 G/DL (32-36); MEAN CORPUSCULAR VOLUME 86 FL (80-99); MEAN PLATELET VOLUME 10.7 FL (7.4-10.4); MONOCYTES % (AUTO) 9 % (0-12); NEUTROPHILS # (AUTO) 5.9 X 10^3 (1.8-7.8); NEUTROPHILS % (AUTO) 57 % (42-75); PLATELET COUNT 225 10^3/uL (130-400); RED CELL DISTRIBUTION WIDTH 13.5 % (10.0-14.5); WHITE BLOOD COUNT 10.4 10^3/uL (4.3-11.0)
[2018-12-15 14:04] LABS: ALANINE AMINOTRANSFERASE 63 U/L (0-55); ALBUMIN 4.7 GM/DL (3.2-4.5); ALKALINE PHOSPHATASE 62 U/L (40-136); BILIRUBIN,TOTAL 1.5 MG/DL (0.1-1.0); BUN/CREATININE RATIO 16; CALCIUM 10.2 MG/DL (8.5-10.1); CARBON DIOXIDE 25 MMOL/L (21-32); CHLORIDE 102 MMOL/L (98-107); CREATININE SERUM 0.91 MG/DL (0.60-1.30); GFR ESTIMATED > 60; GLUCOSE 145 MG/DL (70-105); SODIUM 139 MMOL/L (135-145); TOTAL PROTEIN 8.3 GM/DL (6.4-8.2)
[2018-12-30 16:15] LABS: BASOPHILS % (AUTO) 0 % (0-10); EOSINOPHILS # (AUTO) 0.2 10^3/uL (0.0-0.3); EOSINOPHILS % (AUTO) 3 % (0-10); HEMATOCRIT 45 % (40-54); HEMOGLOBIN 15.8 G/DL (13.3-17.7); LYMPHOCYTES # (AUTO) 2.8 X 10^3 (1.0-4.0); LYMPHOCYTES % (AUTO) 33 % (12-44); MEAN CORPUSCULAR HEMOGLOBIN 30 PG (25-34); MEAN CORPUSCULAR HGB CONC 35 G/DL (32-36); MEAN CORPUSCULAR VOLUME 84 FL (80-99); MEAN PLATELET VOLUME 10.4 FL (7.4-10.4); MONOCYTES # (AUTO) 0.9 X 10^3 (0.0-1.0); MONOCYTES % (AUTO) 10 % (0-12); NEUTROPHILS # (AUTO) 4.7 X 10^3 (1.8-7.8); NEUTROPHILS % (AUTO) 54 % (42-75); PLATELET COUNT 246 10^3/uL (130-400); RED CELL DISTRIBUTION WIDTH 13.4 % (10.0-14.5); WHITE BLOOD COUNT 8.6 10^3/uL (4.3-11.0)
[2018-12-30 16:30] LABS: ALANINE AMINOTRANSFERASE 44 U/L (0-55); ALBUMIN 4.7 GM/DL (3.2-4.5); ALKALINE PHOSPHATASE 61 U/L (40-136); BILIRUBIN,TOTAL 1.5 MG/DL (0.1-1.0); BUN/CREATININE RATIO 11; CALCIUM 9.6 MG/DL (8.5-10.1); CARBON DIOXIDE 22 MMOL/L (21-32); CHLORIDE 105 MMOL/L (98-107); GFR ESTIMATED > 60; GLUCOSE 113 MG/DL (70-105); SODIUM 137 MMOL/L (135-145); TOTAL PROTEIN 8.2 GM/DL (6.4-8.2)
== END 2019-03-15 | disposition home or self-care (01) ==
LOC: LAB 13:18
PROVIDERS: ATTEND Internal Medicine
DX: Z94.4 Liver transplant status (principal); Z79.899 Other long term (current) drug therapy
CPT/HCPCS: 36415; 80053; 80197; 82977; 85025

== ENCOUNTER 2019-12-28 15:26 | Outpatient (RCR) | payer MEDICAID ==
[2019-12-28 15:57] LABS: BASOPHILS % (AUTO) 0 % (0-10); EOSINOPHILS # (AUTO) 0.2 10^3/uL (0.0-0.3); EOSINOPHILS % (AUTO) 2 % (0-10); HEMATOCRIT 42 % (40-54); HEMOGLOBIN 14.7 G/DL (13.3-17.7); LYMPHOCYTES # (AUTO) 2.6 X 10^3 (1.0-4.0); LYMPHOCYTES % (AUTO) 30 % (12-44); MEAN CORPUSCULAR HEMOGLOBIN 30 PG (25-34); MEAN CORPUSCULAR HGB CONC 35 G/DL (32-36); MEAN CORPUSCULAR VOLUME 85 FL (80-99); MONOCYTES # (AUTO) 0.9 X 10^3 (0.0-1.0); MONOCYTES % (AUTO) 10 % (0-12); NEUTROPHILS # (AUTO) 4.9 X 10^3 (1.8-7.8); NEUTROPHILS % (AUTO) 57 % (42-75); PLATELET COUNT 251 10^3/uL (130-400); WHITE BLOOD COUNT 8.7 10^3/uL (4.3-11.0)
[2019-12-28 16:26] LABS: ALANINE AMINOTRANSFERASE 50 U/L (0-55); ALBUMIN 4.2 GM/DL (3.2-4.5); ALKALINE PHOSPHATASE 55 U/L (40-136); BUN/CREATININE RATIO 11; CALCIUM 9.1 MG/DL (8.5-10.1); CARBON DIOXIDE 24 MMOL/L (21-32); CHLORIDE 105 MMOL/L (98-107); CHOLESTEROL 144 MG/DL (< 200); CREATININE SERUM 0.84 MG/DL (0.60-1.30); GFR ESTIMATED > 60; GLUCOSE 138 MG/DL (70-105); HDL CHOLESTEROL 41 MG/DL (40-60); POTASSIUM 4.4 MMOL/L (3.6-5.0); SODIUM 137 MMOL/L (135-145); TOTAL PROTEIN 7.6 GM/DL (6.4-8.2); TRIGLYCERIDES 87 MG/DL (<150); VLDL CHOLESTEROL 17 MG/DL (5-40)
[2019-12-29 03:02] LABS: FK506 4.7 ng/mL
== END 2020-03-27 | disposition home or self-care (01) ==
LOC: LAB 15:26
PROVIDERS: ATTEND Internal Medicine
DX: Z13.220 Encounter for screening for lipoid disorders (principal); Z79.899 Other long term (current) drug therapy; Z86.39 Personal history of other endocrine, nutritional and metabolic disease
CPT/HCPCS: 36415; 80053; 80061; 80197; 82306; 85025

== ENCOUNTER 2020-06-06 10:01 | Outpatient (RCR) | payer MEDICAID ==
[~2020-06-06 10:01] MED LIST changes: -LISI-556; +LISI-729
[2020-06-06 10:58] LABS: BASOPHILS # (AUTO) 0.1 10^3/uL (0.0-0.1); BASOPHILS % (AUTO) 1 % (0-10); EOSINOPHILS # (AUTO) 0.2 10^3/uL (0.0-0.3); EOSINOPHILS % (AUTO) 3 % (0-10); HEMATOCRIT 42 % (40-54); HEMOGLOBIN 14.2 g/dL (13.3-17.7); LYMPHOCYTES # (AUTO) 2.7 10^3/uL (1.0-4.0); LYMPHOCYTES % (AUTO) 32 % (12-44); MEAN CORPUSCULAR HEMOGLOBIN 30 pg (25-34); MEAN CORPUSCULAR HGB CONC 34 g/dL (32-36); MEAN CORPUSCULAR VOLUME 87 fL (80-99); MEAN PLATELET VOLUME 10.6 fL (9.0-12.2); MONOCYTES % (AUTO) 12 % (0-12); NEUTROPHILS # (AUTO) 4.5 10^3/uL (1.8-7.8); NEUTROPHILS % (AUTO) 53 % (42-75); PLATELET COUNT 224 10^3/uL (130-400); WHITE BLOOD COUNT 8.4 10^3/uL (4.3-11.0)
[2020-06-06 11:09] LABS: CHLORIDE 106 MMOL/L (98-107)
[2020-06-06 11:10] LABS: ALBUMIN 4.4 GM/DL (3.2-4.5); POTASSIUM 3.8 MMOL/L (3.6-5.0); SODIUM 137 MMOL/L (135-145)
[2020-06-06 11:11] LABS: CALCIUM 9.1 MG/DL (8.5-10.1)
[2020-06-06 11:12] LABS: GLUCOSE 135 MG/DL (70-105); TOTAL PROTEIN 7.4 GM/DL (6.4-8.2); TRIGLYCERIDES 65 MG/DL (<150); VLDL CHOLESTEROL 13 MG/DL (5-40)
[2020-06-06 11:13] LABS: CARBON DIOXIDE 24 MMOL/L (21-32)
[2020-06-06 11:14] LABS: BILIRUBIN,TOTAL 1.6 MG/DL (0.1-1.0)
[2020-06-06 11:16] LABS: ALKALINE PHOSPHATASE 62 U/L (40-136); CREATININE SERUM 0.81 MG/DL (0.60-1.30); GFR ESTIMATED > 60
[2020-06-06 11:17] LABS: BUN/CREATININE RATIO 16; CHOLESTEROL 112 MG/DL (< 200)
[2020-06-06 11:18] LABS: HDL CHOLESTEROL 33 MG/DL (40-60)
[2020-06-06 11:19] LABS: ALANINE AMINOTRANSFERASE 59 U/L (0-55)
[2020-06-06 22:48] LABS: FK506 <2.0 ng/mL
== END 2020-09-04 | disposition home or self-care (01) ==
LOC: LAB 10:01
PROVIDERS: ATTEND Internal Medicine
DX: Z13.220 Encounter for screening for lipoid disorders (principal); Z79.899 Other long term (current) drug therapy; Z86.39 Personal history of other endocrine, nutritional and metabolic disease
CPT/HCPCS: 36415; 80053; 80061; 80197; 82306; 85025

== ENCOUNTER → 2020-06-06 | Outpatient (CLI) | payer MEDICAID ==
--- NOTE | 2020-06-06 13:31 | Diagnostic Imaging Report ---
PROCEDURE: US DOPPLER ABD/COMPLETE TECHNIQUE: Multiple real-time grayscale images were obtained over the kidneys in various projections. Limited Doppler evaluation of the liver was also performed. 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 No prior studies are available for comparison. The liver is upper limits of normal in size at 18.2 cm. Spleen measures 12.8 cm. Overall quality of the study is somewhat limited due to patient body habitus. There is some increased echogenicity of the liver which could be owing to hepatic steatosis. No discrete liver mass is identified. The right and left portal veins are patent and show normal direction of flow. Right, left and middle hepatic veins demonstrate normal pulsatility. IVC is patent. Splenic vein cannot be visualized. The main hepatic artery could not be visualized. No upper quadrant ascites is seen. IMPRESSION: Question of hepatic steatosis. Study is limited due to patient body habitus. Portal vein and hepatic veins are unremarkable. The hepatic artery could not be visualized. Dictated by: Dictated on workstation # [id number]
== END ==
LOC: RAD 09:58
PROVIDERS: ATTEND Internal Medicine
DX: Z94.4 Liver transplant status (principal); Z87.19 Personal history of other diseases of the digestive system
CPT/HCPCS: 93975

== ENCOUNTER → 2020-07-16 | Outpatient (CLI) | payer MEDICAID ==
[2020-07-16 07:57] LABS: BASOPHILS % (AUTO) 0 % (0-10); EOSINOPHILS # (AUTO) 0.1 10^3/uL (0.0-0.3); EOSINOPHILS % (AUTO) 1 % (0-10); HEMATOCRIT 42 % (40-54); HEMOGLOBIN 14.5 g/dL (13.3-17.7); LYMPHOCYTES # (AUTO) 4.1 10^3/uL (1.0-4.0); LYMPHOCYTES % (AUTO) 36 % (12-44); MEAN CORPUSCULAR HEMOGLOBIN 30 pg (25-34); MEAN CORPUSCULAR HGB CONC 34 g/dL (32-36); MEAN CORPUSCULAR VOLUME 86 fL (80-99); MEAN PLATELET VOLUME 10.6 fL (9.0-12.2); MONOCYTES % (AUTO) 9 % (0-12); NEUTROPHILS # (AUTO) 6.1 10^3/uL (1.8-7.8); NEUTROPHILS % (AUTO) 54 % (42-75); PLATELET COUNT 245 10^3/uL (130-400); WHITE BLOOD COUNT 11.5 10^3/uL (4.3-11.0)
[2020-07-16 08:08] LABS: ALBUMIN 4.5 GM/DL (3.2-4.5)
[2020-07-16 08:09] LABS: CHLORIDE 104 MMOL/L (98-107); POTASSIUM 3.9 MMOL/L (3.6-5.0); SODIUM 138 MMOL/L (135-145)
[2020-07-16 08:10] LABS: CALCIUM 9.1 MG/DL (8.5-10.1)
[2020-07-16 08:11] LABS: GLUCOSE 147 MG/DL (70-105); TOTAL PROTEIN 7.8 GM/DL (6.4-8.2)
[2020-07-16 08:12] LABS: CARBON DIOXIDE 25 MMOL/L (21-32)
[2020-07-16 08:13] LABS: BILIRUBIN,TOTAL 0.8 MG/DL (0.1-1.0)
[2020-07-16 08:14] LABS: ALKALINE PHOSPHATASE 62 U/L (40-136)
[2020-07-16 08:15] LABS: CREATININE SERUM 0.83 MG/DL (0.60-1.30); GFR ESTIMATED > 60
[2020-07-16 08:16] LABS: BUN/CREATININE RATIO 17
[2020-07-16 08:18] LABS: ALANINE AMINOTRANSFERASE 45 U/L (0-55)
== END ==
LOC: LAB 07:35
PROVIDERS: ATTEND Internal Medicine
DX: Z94.4 Liver transplant status (principal)
CPT/HCPCS: 36415; 80053; 80197; 85025

== ENCOUNTER 2020-12-16 02:23 | Emergency (ER) | payer MEDICAID ==
[~2020-12-16] VITALS: Ht 180 cm; Wt 120.2 kg
[~2020-12-16 02:23] MED LIST changes: -SULF1TAB35 PO; +SULF1TAB38 PO
[2020-12-16] MEDS ORDERED: NS IV 1000 ML 1,000 ML IV SCH (04:30)
--- NOTE | 2020-12-16 04:30 | ED General ---
General Chief Complaint: General Problems/Pain Stated Complaint: HIGH BLOOD SUGAR,FATIGUE,SORE THROAT,HEADACHE Nursing Triage Note: pt presents to the ed with concerns of possible covid infection, states he was at the [employer] [place] yesterday, states he noticed the skin of his arms and his baeza began to itch yesterday while at the event. pt states he felt like he had a headache and his head felt heavy so he tested his blood sugar at home- resulted 187 fasting and 217 post meal. ate sonic. pt denies sob, denies nvd, denies fever or chills or loss of taste and smell Allergies and Home Medications Allergies Coded Allergies: ceftriaxone (Verified Allergy, Unknown, 07/28/18) ibuprofen (Verified Allergy, Unknown, 07/28/18) promethazine (Verified Allergy, Unknown, 07/28/18) Uncoded Allergies: mycin (Allergy, Unknown, 11/06/17) tylenol and benadryl (Allergy, Unknown, 11/06/17) can take seperately but not together Home Medications Ondansetron 4 Mg Tab.rapdis, 4 MG PO Q6H PRN for NAUSEA/VOMITING Prescribed by: DEON CANTRELL on 11/06/17 0311 Sulfamethoxazole/Trimethoprim 1 Each Tablet, 2 EACH PO BID Prescribed by: DEON CANTRELL on 07/28/182001 Tramadol HCl 50 Mg Tablet, 50 MG PO Q4H Prescribed by: PERI ARDON on 01/27/18 0111 Past Kwzfewh-Xeopos-Dssgck Hx Patient Social History Tobacco Use?: No Substance use?: No Alcohol Use?: No Pt feels they are or have been: No Immunizations Up To Date Influenza Vaccine Up-to-Date: Yes; Up-to-Date Seasonal Allergies Seasonal Allergies: No Past Medical History Surgery/Hospitalization HX: PT STATES HE HAS HAD A LIVER TRANSPLANT AND IS ON IMMUNE SUPPRESSING MEDS Surgeries: Yes Adenoidectomy, Cardiac, Liver Transplant, Open Heart Surgery, Tonsillectomy Respiratory: No Cardiac: Yes (MITRAL VALVE STENOSIS--S/P REPAIR; SUBAORTIC STENOSIS-S/P REPAIR) Congenital Heart Disease, Hypertension, Valvular Heart Disease Neurological: No Genitourinary: No Gastrointestinal: Yes (BILIARY ATRESIA; S/P KASAI PROCEDURE; S/P LIVER TRANSPLANT) Endocrine: No HEENT: No Cancer: No Psychosocial: No Integumentary: No Blood Disorders: No Physical Exam Vital Signs Vital Signs - First Documented 12/16/20 04:03 Temp 36.3 Pulse 64 Resp 18 B/P (MAP) 140/89 (106) Pulse Ox 98 O2 Delivery Room Air Capillary Refill : Less Than 3 Seconds Height, Weight, BMI Height: 5'11.00" Weight: 245lbs. oz. [id number]; 37.00 BMI Method:Stated Focused Exam Lactate Level 12/16/20 04:38: Lactic Acid Level 0.91 Lactic Acid Level Laboratory Tests Test 12/16/20 04:38 Lactic Acid Level 0.91 MMOL/L (0.50-2.00) Progress/Results/Core Measures Suspected Sepsis SIRS Temperature: Pulse: 64 Respiratory Rate: 18 Laboratory Tests 12/16/20 04:25: White Blood Count 13.0H Blood Pressure 140 /89 Mean: 106 12/16/20 04:38: Lactic Acid Level 0.91 Laboratory Tests 12/16/20 04:25: Creatinine 0.99, INR Comment 1.0, Platelet Count 273, Total Bilirubin 1.3H Results/Orders Lab Results Laboratory Tests Test 12/16/20 02:45 12/16/20 04:15 12/16/20 04:20 12/16/20 04:25 Range/Units Influenza Type A (RT-PCR) Not Detected Not Detecte Influenza Type B (RT-PCR) Not Detected Not Detecte SARS-CoV-2 RNA (RT-PCR) Not Detected Not Detecte Glucometer 211 H 70-110 MG/DL Urine Color YELLOW Urine Clarity CLEAR Urine pH 6.0 5-9 Urine Specific [place]bree 1.025 H 1.016-1.022 Urine Protein NEGATIVE NEGATIVE Urine Glucose (UA) 3+ H NEGATIVE Urine Ketones NEGATIVE NEGATIVE Urine Nitrite NEGATIVE NEGATIVE Urine Bilirubin NEGATIVE NEGATIVE Urine Urobilinogen 0.2 < = 1.0 MG/DL Urine Leukocyte Esterase NEGATIVE NEGATIVE Urine RBC (Auto) NEGATIVE NEGATIVE Urine RBC NONE /HPF Urine WBC RARE /HPF Urine Squamous Epithelial Cells RARE /HPF Urine Crystals NONE /LPF Urine Bacteria NEGATIVE /HPF Urine Casts NONE /LPF Urine Mucus SMALL H /LPF Urine Culture Indicated NO Urine Opiates Screen NEGATIVE NEGATIVE Urine Oxycodone Screen NEGATIVE NEGATIVE Urine Methadone Screen NEGATIVE NEGATIVE Urine Propoxyphene Screen NEGATIVE NEGATIVE Urine Barbiturates Screen NEGATIVE NEGATIVE Ur Tricyclic Antidepressants Screen NEGATIVE NEGATIVE Urine Phencyclidine Screen NEGATIVE NEGATIVE Urine Amphetamines Screen NEGATIVE NEGATIVE Urine Methamphetamines Screen NEGATIVE NEGATIVE Urine Benzodiazepines Screen NEGATIVE NEGATIVE Urine Cocaine Screen NEGATIVE NEGATIVE Urine Cannabinoids Screen NEGATIVE NEGATIVE White Blood Count 13.0 H 4.3-11.0 10^3/uL Red Blood Count 5.05 4.30-5.52 10^6/uL Hemoglobin 14.9 13.3-17.7 g/dL Hematocrit 43 40-54 % Mean Corpuscular Volume 85 80-99 fL Mean Corpuscular Hemoglobin 30 25-34 pg Mean Corpuscular Hemoglobin Concent 35 32-36 g/dL Red Cell Distribution Width 12.7 10.0-14.5 % Platelet Count 273 130-400 10^3/uL Mean Platelet Volume 10.7 9.0-12.2 fL Immature Granulocyte % (Auto) 0 % Neutrophils (%) (Auto) 52 42-75 % Lymphocytes (%) (Auto) 36 12-44 % Monocytes (%) (Auto) 11 0-12 % Eosinophils (%) (Auto) 1 0-10 % Basophils (%) (Auto) 0 0-10 % Neutrophils # (Auto) 6.7 1.8-7.8 X 10^3 Lymphocytes # (Auto) 4.7 H 1.0-4.0 X 10^3 Monocytes # (Auto) 1.4 H 0.0-1.0 X 10^3 Eosinophils # (Auto) 0.2 0.0-0.3 10^3/uL Basophils # (Auto) 0.0 0.0-0.1 10^3/uL Immature Granulocyte # (Auto) 0.0 0.0-0.1 10^3/uL Prothrombin Time 13.3 12.2-14.7 SEC INR Comment 1.0 0.8-1.4 Activated Partial Thromboplast Time 30 24-35 SEC Sodium Level 136 135-145 MMOL/L Potassium Level 4.1 3.6-5.0 MMOL/L Chloride Level 102 98-107 MMOL/L Carbon Dioxide Level 25 21-32 MMOL/L Anion Gap 9 5-14 MMOL/L Blood Urea Nitrogen 14 7-18 MG/DL Creatinine 0.99 0.60-1.30 MG/DL Estimat Glomerular Filtration Rate 91 BUN/Creatinine Ratio 14 Glucose Level 213 H 70-105 MG/DL Calcium Level 9.3 8.5-10.1 MG/DL Corrected Calcium 8.9 8.5-10.1 MG/DL Magnesium Level 1.8 1.6-2.4 MG/DL Total Bilirubin 1.3 H 0.1-1.0 MG/DL Aspartate Amino Transf (AST/SGOT) 24 5-34 U/L Alanine Aminotransferase (ALT/SGPT) 51 0-55 U/L Alkaline Phosphatase 76 40-136 U/L Troponin I < 0.028 <0.028 NG/ML Total Protein 8.1 6.4-8.2 GM/DL Albumin 4.5 3.2-4.5 GM/DL Amylase Level 32 25-125 U/L Lipase 22 8-78 U/L Procalcitonin 0.04 <0.10 NG/ML Serum Alcohol < 10 <10 MG/DL Test 12/16/20 04:38 Range/Units Lactic Acid Level 0.91 0.50-2.00 MMOL/L My Orders Orders - PERI ARDON DO Covid 19 Inhouse Test (12/16/20 03:00) Influenza A And B By Pcr (12/16/20 03:00) Accucheck Stat ONCE (12/16/20 04:09) Ed Iv/Invasive Line Start (12/16/20 04:30) Ekg Tracing (12/16/20 04:30) Monitor-Rhythm Ecg Trace Only (12/16/20 04:30) Alcohol (12/16/20 04:30) Amylase (12/16/20 04:30) Cbc With Automated Diff (12/16/20 04:30) Comprehensive Metabolic Panel (12/16/20 04:30) Drug Screen Stat (Urine) (12/16/20 04:30) Lactic Acid Analyzer (12/16/20 04:30) Lipase (12/16/20 04:30) Magnesium (12/16/20 04:30) Procalcitonin (Pct) (12/16/20 04:30) Protime With Inr (12/16/20 04:30) Partial Thromboplastin Time (12/16/20 04:30) Ua Culture If Indicated (12/16/20 04:30) Troponin I (12/16/20 04:30) Ed Iv/Invasive Line Start (12/16/20 04:30) Ns Iv 1000 Ml (Sodium Chloride 0.9%) (12/16/20 04:30) Chest 1 View, Ap/Pa Only (12/16/20 04:30) Vital Signs/I&O 12/16/20 04:03 Temp 36.3 Pulse 64 Resp 18 B/P (MAP) 140/89 (106) Pulse Ox 98 O2 Delivery Room Air Capillary Refill : Less Than 3 Seconds Blood Pressure Mean: 106 Point of Care Testing Finger Stick Blood Glucose: 211 Blood Glucose Action Taken: provider notified Departure Impression Primary Impression: Hyperglycemia Additional Impressions: S/P liver transplant Person under investigation for COVID-19 Disposition: HOME, SELF-CARE Condition: Stable Departure-Patient Inst. Referrals: AMAN ZEPEDA MD (PCP/Family) Primary Care Physician Patient Instructions: COVID-19 (DC), Preventing the Spread of an Infectious Di sease, High Blood Sugar, Adult ED Add. Discharge Instructions: QUARANTINE FOR THE NEXT 2 WEEKS--YOURSELF AND ALL HOUSEHOLD AND CLOSE CONTACTS YOU NEED TO BE RE-TESTED FOR COVID IN 2-3 DAYS--YOU MAY GO TO [facility] FOR TESTING FOLLOW UP WITH YOUR DR FOR FURTHER CARE All discharge instructions reviewed with patient and/or family. Voiced understanding. PERI ARDON DO Dec 16, 2020 04:30
[2020-12-16 04:43] LABS: BASOPHILS % (AUTO) 0 % (0-10); EOSINOPHILS # (AUTO) 0.2 10^3/uL (0.0-0.3); EOSINOPHILS % (AUTO) 1 % (0-10); HEMATOCRIT 43 % (40-54); HEMOGLOBIN 14.9 g/dL (13.3-17.7); LYMPHOCYTES # (AUTO) 4.7 X 10^3 (1.0-4.0); LYMPHOCYTES % (AUTO) 36 % (12-44); MEAN CORPUSCULAR HEMOGLOBIN 30 pg (25-34); MEAN CORPUSCULAR HGB CONC 35 g/dL (32-36); MEAN CORPUSCULAR VOLUME 85 fL (80-99); MEAN PLATELET VOLUME 10.7 fL (9.0-12.2); MONOCYTES # (AUTO) 1.4 X 10^3 (0.0-1.0); MONOCYTES % (AUTO) 11 % (0-12); NEUTROPHILS # (AUTO) 6.7 X 10^3 (1.8-7.8); NEUTROPHILS % (AUTO) 52 % (42-75); PLATELET COUNT 273 10^3/uL (130-400)
[2020-12-16 05:11] LABS: BILIRUBIN,URINE NEGATIVE (NEGATIVE); CLARITY,URINE CLEAR; COLOR,URINE YELLOW; GLUCOSE, URINE (UA) 3+ (NEGATIVE); KETONES,URINE NEGATIVE (NEGATIVE); NITRITE,URINE NEGATIVE (NEGATIVE); PROTEIN,URINE NEGATIVE (NEGATIVE)
[2020-12-16 05:12] LABS: BACTERIA,URINE NEGATIVE /HPF; LEUKOCYTE ESTERASE ,URINE NEGATIVE (NEGATIVE); SQUAMOUS EPITHELIAL CELL,UR RARE /HPF; WBC,URINE RARE /HPF
[2020-12-16 05:21] LABS: AMPHETAMINE SCREEN, URINE NEGATIVE (NEGATIVE); BARBITURATE SCREEN URINE NEGATIVE (NEGATIVE); BENZODIAZEPINES SCREEN URINE NEGATIVE (NEGATIVE); CANNABINOID SCREEN, URINE NEGATIVE (NEGATIVE); COCAINE SCREEN URINE NEGATIVE (NEGATIVE); METHADONE STAT NEGATIVE (NEGATIVE); METHAMPHETAMINE SCREEN URINE S NEGATIVE (NEGATIVE); OPIATE SCREEN URINE NEGATIVE (NEGATIVE); OXYCODONE STAT NEGATIVE (NEGATIVE); PROPOXYPHENE STAT NEGATIVE (NEGATIVE); TRICYCLIC ANTIDEPRESSANTS SCRE NEGATIVE (NEGATIVE)
[2020-12-16 05:23] LABS: PROTHROMBIN TIME PATIENT 13.3 SEC (12.2-14.7)
[2020-12-16 05:39] LABS: POTASSIUM 4.1 MMOL/L (3.6-5.0); SODIUM 136 MMOL/L (135-145)
[2020-12-16 05:40] LABS: ALANINE AMINOTRANSFERASE 51 U/L (0-55); ALBUMIN 4.5 GM/DL (3.2-4.5); ALKALINE PHOSPHATASE 76 U/L (40-136); AMYLASE 32 U/L (25-125); BILIRUBIN,TOTAL 1.3 MG/DL (0.1-1.0); BUN/CREATININE RATIO 14; CALCIUM 9.3 MG/DL (8.5-10.1); CARBON DIOXIDE 25 MMOL/L (21-32); CHLORIDE 102 MMOL/L (98-107); CREATININE SERUM 0.99 MG/DL (0.60-1.30); GFR ESTIMATED 91; GLUCOSE 213 MG/DL (70-105); LIPASE 22 U/L (8-78); MAGNESIUM 1.8 MG/DL (1.6-2.4); TOTAL PROTEIN 8.1 GM/DL (6.4-8.2)
[2020-12-16 06:56] VITALS: BP 132/82
--- NOTE | 2020-12-16 07:38 | Diagnostic Imaging Report ---
EXAMINATION: Chest 1 view HISTORY: Possible COVID 19 COMPARISON: None available. FINDINGS: The lungs are clear without edema or pneumonia. No pleural effusion or pneumothorax. Heart size is normal. IMPRESSION: 1. Clear lungs. Dictated by: Dictated on workstation # [id number]
--- OUTSIDE RECORDS SUMMARY | 2020-12-19 17:40 | XMS REPORT | Encounter Summary ---
Author Author [facility] Organization [facility] Address Unknown Phone Unavailable Care Team Providers Care Beauty Parlor Cleaner Name Role Phone Grecia Felix MD Unavailable Lona Rothman Unavailable Unavailable David Galo MD PCP Reason for Visit * Reason Onset Date Comments Medication Update 12/17/2020 Encounter Details Care Team Description Date Type Department Radha Jasmine RN Medication Update 12/17/2020 Telephone Cardiology: [facility] [address], [address] [place] [address] Social History Date Tobacco Use Types Packs/Day Years Used Never Smoker Smokeless Tobacco: Never Used Drinks/Week oz/Week Comments Alcohol Use No Sex Assigned at Date Recorded Not on file documented as of this encounter Functional Status Date of Assessment Functional Status Response 07/17/2020 Does the patient have a hearing impairment: No 07/17/2020 Does the patient have a visual impairment: Yes 07/17/2020 Does the patient have impaired ambulation: No 07/17/2020 Does the patient have an activity of daily living No (ADL) impairment: 07/17/2020 Does the patient have an instrumental activity of No daily living (IADL) impairment: Date of Assessment Cognitive Status Response 07/17/2020 Does the patient have a cognitive impairment: No documented as of this encounter Miscellaneous Notes * Telephone Encounter - Radha Jasmine RN - 12/17/2020 11:23 AM CDT Nitin called today to report that he has been diagnosed Type 2 DM. He saw his I M physician, Dr.Julie French,in [place], [place] He was started on Metformin 500 mg qd for a HbA1C of 10.3. He wanted to make sure that it did not interact with the lisinopril. I did check Up to Date, and therapy should be closely monitored, as it may enhance the effe cts of Metformin for both hypoglycemia and lactic acidosis. Nitin does have a F/U appt in 4 weeks with . He,also, checked with , his continuous miner, to determine if OK for him to take with his h/o orthotopic liver transplant in 10/2001. Nitin is overdue for F/U appt. Will have scheduling call him for an appt. He wo uld prefer in person. Nitin understands that he is to call with any further concerns or questions. documented in this encounter Plan of Treatment Not on filedocumented as of this encounter Visit Diagnoses Not on filedocumented in this encounter Historical Medications * This list may reflect changes made after this encounter. Start Date End Date Medication Sig Dispensed Refills metFORMIN (GLUCOPHAGE) Take 500 mg 0 500 mg tablet by mouth daily with breakfast. added in this encounter Additional Health Concerns Assessment Noted Time A fall risk assessment has been completed for the pat ient 07/17/2020 8:51 AM PUMP SERVICE SUPERVISOR PHQ-2 Depression Total Score: 0 07/17/2020 8:51 AM PUMP SERVICE SUPERVISOR documented as of this encounter
--- OUTSIDE RECORDS SUMMARY | 2020-12-19 17:40 | XMS REPORT | Encounter Summary ---
Author Author [facility] Organization [facility] Address Unknown Phone Unavailable Care Team Providers Care Course Instructor Name Role Phone Grecia Felix MD Unavailable Lona Rothman Unavailable Unavailable David Galo MD PCP Reason for Visit * Reason Comments Medication Refill Encounter Details Care Team Description Date Type Department Grecia Felix MD [id number] [place] [address] 10/24/2020 Refill Hepatology: [facility] [address] [place] [address] Social History Date Tobacco Use [...] impairment: No documented as of this encounter Ordered Prescriptions Start Date End Date Prescription Sig Dispensed Refills 10/24/2020 tacrolimus (PROGRAF) 1 mg Take three 360 capsule 1 capsuleIndications: capsules by prevention of liver mouth twice transplant rejection daily. documented in this encounter Plan of Treatment Not on filedocumented as of this encounter Visit Diagnoses Not on filedocumented in this encounter Discontinued Medications Start Date End Date Medication Sig Discontinue Reason 06/26/2020 10/24/2020 tacrolimus (PROGRAF) 1 mg Take three Reorder capsuleIndications: capsules by prevention of liver mouth twice transplant rejection daily. documented as of this encounter Additional Health Concerns Assessment Noted Time A fall risk assessment has been completed for the pat ient 07/17/2020 8:51 AM EVIDENCE SPECIALIST PHQ-2 Depression Total Score: 0 07/17/2020 8:51 AM EVIDENCE SPECIALIST documented as of this encounter
--- OUTSIDE RECORDS SUMMARY | 2020-12-19 17:40 | XMS REPORT | Clinical Summary ---
Author Author [facility] Organization [facility] Address Unknown Phone Unavailable Care Team Providers Care Real Property Evaluator Name Role Phone Grecia Felix MD Unavailable Lona Rothman Unavailable Unavailable David Galo MD PCP Source Comments Some departments are not documenting in the electronic medical record. If you d o not see the information that you expected, contact Release of Information in [facility] Information Management department at [phone] for further assistan ce in locating additional records.[facility] Allergies Comments Active Allergy Reactions Severity Noted Date Adhesive Tape (Rosins) RASH Medium 016 Ceftriaxone UNKNOWN Low 06/25/2015 Promethazine UNKNOWN Low 06/25/2015 Vancomycin UNKNOWN Low 06/25/2015 Medications End Date Status Medication Sig Dispensed Refills Start Date Active cetirizine (ZYRTEC) 10 mg Take 10 mg by 0 tablet mouth daily. Active ergocalciferol (VITAMIN Take 1 36 capsule 0 D-2) 50,000 unit capsule capsule by 7 mouth three times weekly. Active lisinopriL (ZESTRIL) 20 TAKE 1 TABLET 90 tablet 1 mg tablet BY MOUTH 1 EVERY DAY Active pantoprazole DR Take 1 tablet 90 tablet 0 10/09/19 2 (PROTONIX) 40 mg tablet by mouth once 1 daily Active tacrolimus (PROGRAF) 1 mg Take three 360 capsule 1 capsuleIndications: capsules by 1 prevention of liver mouth twice transplant rejection daily. Active metFORMIN (GLUCOPHAGE) Take 500 mg 0 500 mg tablet by mouth daily with breakfast. Active Problems Problem Noted Date Ascending aorta dilation 06/02/2019 Nonrheumatic mitral valve regurgitation 06/02/2019 Subaortic membrane 06/22/2015 Overview: Formatting of this note might be differ ent from the original. Resection by Dr. 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 Transplant on 10/24/2001 Encounters Care Team Description Date Type Specialty Grecia Felix MD Labs Only 12/18/2020 Telephone Transplant Surgery Radha Jasmine RN Medication Update 12/17/2020 Telephone Cardiology Grecia Felix MD 10/24/2020 Refill Hepatology Grecia Felix MD 10/06/2020 Refill Transplant Surgery from Last 3 Months Surgical History Surgery Date Site/Laterality Comments DOPPLER ECHOCARDIOGRAPHY Medical History Medical History Date Comments Congenital heart disease Family History Medical History Relation Name Comments Coronary Artery Disease Maternal Grandfather Stroke Paternal Grandmother Asthma Sister Relation Name Status Comments Brother Father Alive Maternal Grandfather Alive Maternal Grandmother Alive Mother Alive Paternal Grandfather Alive Paternal Grandmother Alive Sister Alive Social History Date Tobacco Use Types Packs/Day Years Used Never Smoker Smokeless Tobacco: Never Used Tobacco Cessation: Counseling Given: No Drinks/Week oz/Week Comments Alcohol Use No Sex Assigned at Date Recorded Not on file Last Filed Vital Signs Reading Time Taken Comments Vital Sign 135/92 01/10/2020 9:19 AM CDT Blood Pressure 88 01/10/2020 9:19 AM CDT Pulse 36.5 C (97.7 F) 01/10/2020 9:19 AM CDT Temperature 16 01/29/2017 9:55 AM CDT Respiratory Rate 98% 06/02/2019 10:10 AM SOLAR INSTALLER PV Oxygen Saturation - - Inhaled Oxygen Concentration 122.5 kg (270 lb) 01/10/2020 9:19 AM CDT Weight 180.3 cm (5' 11") 01/10/2020 9:19 AM CDT Height 37.66 01/10/2020 9:19 AM CDT Body Mass Index Plan of Treatment Health Maintenance Due Date Last Done Comments HPV VACCINES (1 - Male 2005 2-dose series) HIV SCREENING 2009 DTAP/TDAP VACCINES (1 - 2012 Tdap) HEPATITIS C SCREENING 2012 PHYSICAL (COMPREHENSIVE) 2012 EXAM INFLUENZA VACCINE 02/15/2021 04/30/2015, 03/23/2009 Results Not on filefrom Last 3 Months Insurance Type Payer Benefit Subscriber ID Effective Phone Address Plan / Dates Group Medicaid [employer] [employer] [id number] 2010- STATE Present HEALTH [id number] Advance Directives Patient Health Technician Explanation Type Date Recorded Advance 09/14/2014 3:43 PM Directive/DPOA
--- OUTSIDE RECORDS SUMMARY | 2020-12-19 17:40 | XMS REPORT | Encounter Summary ---
Author Author [facility] Organization [facility] Address Unknown Phone Unavailable Care Team Providers Care Behavioral Scientist Name Role Phone Grecia Felix MD Unavailable Lona Rothman Unavailable Unavailable David Galo MD PCP Reason for Visit * Reason Onset Date Comments Labs Only 12/18/2020 Encounter Details Care Team Description Date Type Department Grecia Felix MD [address] [facility] [id number] [place], [place] [id number] Labs Only 12/18/2020 [facility] [address] [facility] [address], [address] [place] [address] Social History Date Tobacco Use [...] encounter Miscellaneous Notes * Telephone Encounter - Darby Erickson RN - 12/18/2020 5:00 PM CDT Spoke with pt about overdue labs that were due in August. Pt states that he compl eted abs yesterday. Pt states that Dr. French diagnosed him with Type 2 Diabete s and he started metformin. Confirmed appt details for Jan. Advised that I will notify him if any changes need to be made after we receive lab results. documented in this encounter Plan of Treatment Not on filedocumented as of this encounter Visit Diagnoses Not on filedocumented in this encounter Additional Health Concerns Assessment Noted Time A fall risk assessment has been completed for the pat ient 07/17/2020 8:51 AM AEROSPACE ENGINEER PHQ-2 Depression Total Score: 0 07/17/2020 8:51 AM AEROSPACE ENGINEER documented as of this encounter
--- OUTSIDE RECORDS SUMMARY | 2020-12-19 17:41 | XMS REPORT | Encounter Summary ---
Author Author [facility] Organization [facility] Address Unknown Phone Unavailable Care Team Providers Care Typing Secretary Name Role Phone Grecia Felix MD Unavailable Lona Rothman Unavailable Unavailable David Galo MD PCP Reason for Visit * Reason Onset Date Comments Labs Only 12/18/2020 Encounter Details Care Team Description Date Type Department Grecia Felix MD [address] [facility] [id number] [place], [place] [id number] Labs Only 12/18/2020 [facility] [address] [facility] [address] [place] [address] Social History Date Tobacco Use [...] for the pat ient 07/17/2020 8:51 AM TYPING TEACHER PHQ-2 Depression Total Score: 0 07/17/2020 8:51 AM TYPING TEACHER documented as of this encounter
--- OUTSIDE RECORDS SUMMARY | 2020-12-19 17:41 | XMS REPORT | Encounter Summary ---
Author Author [facility] Organization [facility] Address Unknown Phone Unavailable Care Team Providers Care [place] Former Machine Operator Name Role Phone Grecia Felix MD Unavailable Lona Rothman Unavailable Unavailable David Galo MD PCP Reason for Visit * Reason Onset Date Comments Medication Update 12/17/2020 Encounter Details Care Team Description Date Type Department Radha Jasmine RN Medication Update 12/17/2020 Telephone Cardiology: [facility] [address] [facility], [address] [place] [address] Social History Date Tobacco Use [...] saw his I M physician, Dr.Julie French,in [place], [place] He was started on Metformin 500 [...] with . He,also, checked with , his computational biologist, to determine if OK for him to [...] for the pat ient 07/17/2020 8:51 AM HOSTING ENGINEER PHQ-2 Depression Total Score: 0 07/17/2020 8:51 AM HOSTING ENGINEER documented as of this encounter
== END 2020-12-16 06:56 | disposition home or self-care (01) ==
LOC: EDUNIT# 02:23 → ER 02:26
DX: R73.9 Hyperglycemia, unspecified (principal); I10 Essential (primary) hypertension; Z94.4 Liver transplant status; Z20.822 Contact with and (suspected) exposure to COVID-19
CPT/HCPCS: 71045; 80053; 80306; 81000; 82150; 82947; 83605; 83690; 83735; 84145; 84484; 85025; 85610; 85730; 87636; 93005; 93041; 99284; G0480; 36415; 80320

== ENCOUNTER 2021-06-11 22:43 | Emergency (ER) | payer MEDICAID ==
[~2021-06-11] VITALS: Ht 182.9 cm; Wt 108.9 kg
[~2021-06-11 22:43] MED LIST changes: -LISI-729; +LISI5TAB20
[2021-06-12 00:30] VITALS: BP 126/76
[2021-06-12] MEDS ORDERED: ONDA4TAB11 PO (00:53)
--- NOTE | 2021-06-12 00:54 | ED Cough/URI ---
General Chief Complaint: COVID19 Suspect/Confirmed Stated Complaint: FATIGUE/WEAKNESS/SOA/HEADACHE/FEVER/CHILLS Source: patient Exam Limitations: no limitations History of Present Illness Date Seen by Provider: Jun 12, 2021 Time Seen by Provider: 00:39 Initial Comments The patient presents ER by private conveyance from home with chief complaint of 1 day of cough, body aches, malaise. He is not had any Tylenol today. 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 He is on tacrolimus and not having any fevers but he was exposed to somebody with Covid on Thursday. He is fully vaccinated he states. He has had a flu vaccine as well. He has not been tested today. Allergies and Home Medications Allergies Coded Allergies: ceftriaxone (Verified Allergy, Unknown, 07/28/18) ibuprofen (Verified Allergy, Unknown, 07/28/18) promethazine (Verified Allergy, Unknown, 07/28/18) Uncoded Allergies: mycin (Allergy, Unknown, 11/06/17) tylenol and benadryl (Allergy, Unknown, 11/06/17) can take seperately but not together Patient Home Medication List Home Medication List Reviewed: Yes Cetirizine HCl (Cetirizine HCl) 10 Mg Tablet, (Reported) Entered as Reported by: ROSANA LUCAS on 11/06/17103 Cholecalciferol (Vitamin D3) (Vitamin D) 1,000 Unit Tablet, 1,000 UNIT PO, (Reported) Entered as Reported by: ROSANA LUCAS on 11/06/17 011 Fluticasone Propionate (Fluticasone Propionate) 16 Gm [place].susp, (Reported) Entered as Reported by: ROSANA LUCAS on 11/06/17103 Lisinopril (Lisinopril) 5 Mg Tablet, (Reported) Entered as Reported by: ROSANA LUCAS on 11/06/17103 Ondansetron (Ondansetron Odt) 4 Mg Tab.rapdis, 4 MG PO Q6H PRN for NAUSEA/VOMITING Prescribed by: DEON CANTRELL on 11/06/17 0311 Ondansetron (Ondansetron Odt) 4 Mg Tab.rapdis, 4 MG PO Q6H PRN for NAUSEA/VOMITING Prescribed by: DEON CANTRELL on 06/12/21 0053 Sulfamethoxazole/Trimethoprim (Bactrim Ds Tablet) 1 Each Tablet, 2 EACH PO BID Prescribed by: DEON CANTRELL on 07/28/182001 Tacrolimus (Tacrolimus) 1 Mg Capsule, (Reported) Entered as Reported by: ROSANA LUCAS on 11/06/17 0104 Tramadol HCl (Ultram) 50 Mg Tablet, 50 MG PO Q4H Prescribed by: PERI ARDON on 01/27/18 0111 [Pprograf] , (Reported) Entered as Reported by: DEVAUGHN PEREZ on 12/24/17 175 Review of Systems Review of Systems Constitutional: No chills, No diaphoresis EENTM: No ear discharge, No ear pain Respiratory: No cough, No short of breath Cardiovascular: No chest pain, No palpitations Gastrointestinal: No abdominal pain, No nausea, No vomiting Genitourinary: No discharge, No dysuria Musculoskeletal: No back pain, No joint pain Skin: No pruritus, No rash All Other Systems Reviewed Negative Unless Noted: Yes Past Imxwwla-Trqtaz-Zplvhv Hx Patient Social History Tobacco Use?: No Use of E-Cig and/or Vaping dev: No Substance use?: No Seasonal Allergies Seasonal Allergies: No Past Medical History Surgery/Hospitalization HX: MITRAL VALVE STENOSIS AND SUBAORTIC STENOSIS--S/P REPAIRS PT STATES HE HAS HAD A LIVER TRANSPLANT AND IS ON IMMUNE SUPPRESSING MEDS Surgeries: Yes Adenoidectomy, Cardiac, Liver Transplant, Open Heart Surgery, Tonsillectomy Respiratory: No Cardiac: Yes (MITRAL VALVE STENOSIS--S/P REPAIR; SUBAORTIC STENOSIS-S/P REPAIR) Congenital Heart Disease, Hypertension, Valvular Heart Disease Neurological: No Genitourinary: No Gastrointestinal: Yes (BILIARY ATRESIA; S/P KASAI PROCEDURE; S/P LIVER TRANSPLANT) Liver Disease/Jaundice Endocrine: No HEENT: No Cancer: No Psychosocial: No Integumentary: No Blood Disorders: No Physical Exam Vital Signs - First Documented 06/12/21 00:30 Temp 36.7 Pulse 104 Resp 18 B/P (MAP) 126/76 (93) Pulse Ox 97 O2 Delivery Room Air Capillary Refill : Height: 5'11.00" Weight: 245lbs. oz. 111.977599tp; 37.00 BMI Method:Stated General Appearance: WD/WN, mild distress Eyes: Bilateral Eye Normal Inspection, Bilateral Eye PERRL, Bilateral Eye EOMI HEENT: PERRL/EOMI, normal ENT inspection, pharynx normal Neck: full range of motion, supple, normal inspection Respiratory: lungs clear, normal breath sounds, no respiratory distress, no accessory muscle use Cardiovascular: normal peripheral pulses, regular rate, rhythm, tachycardia (110) Gastrointestinal: normal bowel sounds, non tender, soft Neurologic/Psychiatric: alert, normal mood/affect, oriented x 3 Skin: normal color, warm/dry Progress/Results/Core Measures Suspected Sepsis SIRS Temperature: Pulse: Respiratory Rate: Blood Pressure / Mean: Results/Orders Lab Results Laboratory Tests Test 06/12/21 00:45 Range/Units Influenza Type A (RT-PCR) Not Detected Not Detecte Influenza Type B (RT-PCR) Not Detected Not Detecte SARS-CoV-2 RNA (RT-PCR) Not Detected Not Detecte My Orders Orders - DEON CANTRELL Ekg Tracing (06/12/21 00:46) Continuous Ekg Monitoring (06/12/21 00:46) Covid 19 Inhouse Test (06/12/21 00:46) Influenza A And B By Pcr (06/12/21 00:46) Isolation Central Supply Req (06/12/21 00:46) Acetaminophen Tablet (Tylenol Tablet) (06/12/21 01:00) Medications Given in ED Current Medications Medications Dose Ordered Sig/Kami Route Start Time Stop Time Status Last Admin Dose Admin Acetaminophen 1,000 mg ONCE ONCE PO 06/12/21 01:00 06/12/21 01:01 DC 06/12/21 01:00 1,000 MG Vital Signs/I&O 06/12/21 06/12/21 00:30 00:30 Temp 36.7 Pulse 104 Resp 18 B/P (MAP) 126/76 (93) Pulse Ox 97 O2 Delivery Room Air Room Air Capillary Refill : Progress Note : Time: 00:50 Progress Note Well-appearing, little tachycardic. Given some Tylenol swabbing for Covid and flu. If his Covid is positive again to get him set up for monoclonal antibodies. We did discuss that they are authorized under an emergency use authorization and the risks, benefits and alternatives to using them. He would be of high benefit to proceed and wants to get set up for them. Symptoms started today. Departure Impression Primary Impression: Person under investigation for COVID-19 Disposition: 01 HOME, SELF-CARE Condition: Stable Departure-Patient Inst. Decision time for Depature: 01:20 Referrals: AMAN ZEPEDA MD (PCP/Family) Primary Care Physician Patient Instructions: COVID-19 (DC), Sotrovimab FDA Fact Sheet, Viral Upper Respiratory Infection, Adult (DC) Add. Discharge Instructions: Drink lots of fluids. Tylenol and ibuprofen as necessary for body aches or fever. Go to [facility] during business hours this week for repeat COVID-19 test. If it is positive then I would recommend you pursue monoclonal antibodies. If not then you likely have some other viral syndrome and I would recommend you follow-up with your primary care doctor as necessary. Someone should call you to set up the monoclonal antibody infusion this week or early next week as drug becomes available. Touch bases with your transplant team as necessary. Return to the ER for oxygen saturations below 90% or intractable vomiting. Zofran 1 tablet every 6 hours under the tongue as necessary for nausea or vomiting. All discharge instructions reviewed with patient and/or family. Voiced understanding. Scripts Ondansetron (Ondansetron Odt) 4 Mg Tab.rapdis 4 MG PO Q6H PRN for NAUSEA/VOMITING, #12 TAB 0 Refills Prov: DEON CANTRELL 06/12/21 Work/School Note: Work Release Form Date Seen in the Emergency Department: Jun 12, 2021 Return to Work: Jun 17, 2021 Restrictions: Return-No Fever (24hrs) Other Restrictions Listed Below: Return on if fever free for 24 hours and mild symptoms. Restrictions: Wear mask for 5 days after returning to work. DEON CANTRELL Jun 12, 2021 00:54
[2021-06-12] MEDS ORDERED: ACETAMINOPHEN 500 MG TAB (TYLENOL) PO ONE (01:00)
== END 2021-06-12 01:37 | disposition home or self-care (01) ==
LOC: EDUNIT# 22:43 → ER 22:45
DX: Z20.822 Contact with and (suspected) exposure to COVID-19 (principal); R00.0 Tachycardia, unspecified; I10 Essential (primary) hypertension; Z79.82 Long term (current) use of aspirin
CPT/HCPCS: 87636; 93005

== ENCOUNTER 2021-07-29 20:53 | Emergency (ER) | payer MEDICAID ==
[~2021-07-29] VITALS: Ht 180 cm; Wt 112.9 kg
--- NOTE | 2021-07-29 21:20 | ED General ---
General Stated Complaint: HX LIVER TRANSPLANT/FEVER/FATIGUE Source of Information: Patient Exam Limitations: No Limitations History of Present Illness Date Seen by Provider: Jul 29, 2021 Time Seen by Provider: 21:15 Initial Comments To ER by private vehicle with reports of fevers, general malaise and muscle pain. This began 8 days ago. On 07/23/2021 he was seen at [facility] tested negative for Covid, negative for influenza diagnosed with an upper respiratory infection and given amoxicillin 10-day course. He is still on that. He denies any cough or shortness of breath. He denies sore throat or abdominal pain, no diarrhea and no dysuria. He does report some mild muscle aches as well as nasal congestion but he attributes the nasal congestion to allergies. Fever maximum of 102.8 mostly in the mornings though today has only reached a maximum of upper 99 degree range. He has a history of congenital biliary atresia status post liver transplant in 2001. He also had a subaortic membrane causing subaortic stenosis that was repaired surgically. Has NIDDM on Metformin. He follows with [facility]. On June 07 he had his Prograf reduced from 3 mg twice a day down to 2.5 mg twice a day. He had o ne episode of liver rejection in 2012 but no other episodes and has had normal liver labs all along since then. Timing/Duration: 1 Week Severity: Moderate Associated Systoms: Fever/Chills, Malaise Allergies and Home Medications Allergies Coded Allergies: ceftriaxone (Verified Allergy, Unknown, 07/28/18) ibuprofen (Verified Allergy, Unknown, 07/28/18) promethazine (Verified Allergy, Unknown, 07/28/18) Uncoded Allergies: mycin (Allergy, Unknown, 11/06/17) tylenol and benadryl (Allergy, Unknown, 11/06/17) can take seperately but not together Patient Home Medication List Home Medication List Reviewed: Yes Cetirizine HCl (Cetirizine HCl) 10 Mg Tablet, (Reported) Entered as Reported by: ROSANA LUCAS on 11/06/17 010 Cholecalciferol (Vitamin D3) (Vitamin D) 1,000 Unit Tablet, 1,000 UNIT PO, (Reported) Entered as Reported by: ROSANA LUCAS on 11/06/17 011 Fluticasone Propionate (Fluticasone Propionate) 16 Gm [place].susp, (Reported) Entered as Reported by: ROSANA LUCAS on 11/06/17103 Lisinopril (Lisinopril) 5 Mg Tablet, (Reported) Entered as Reported by: ROSANA LUCAS on 11/06/17103 Ondansetron (Ondansetron Odt) 4 Mg Tab.rapdis, 4 MG PO Q6H PRN for NAUSEA/VOMITI NG Prescribed by: DEON CANTRELL on 11/06/17310 Ondansetron (Ondansetron Odt) 4 Mg Tab.rapdis, 4 MG PO Q6H PRN for NAUSEA/VOMITING Prescribed by: DEON CANTRELL on 06/12/21 0053 Sulfamethoxazole/Trimethoprim (Bactrim Ds Tablet) 1 Each Tablet, 2 EACH PO BID Prescribed by: DEON CANTRELL on 07/28/182001 Tacrolimus (Tacrolimus) 1 Mg Capsule, (Reported) Entered as Reported by: ROSANA LUCAS on 11/06/17103 Tramadol HCl (Ultram) 50 Mg Tablet, 50 MG PO Q4H Prescribed by: PERI ARDON on 01/27/18 0111 [Pprograf] , (Reported) Entered as Reported by: DEVAUGHN PEREZ on 12/24/17 175 Review of Systems Review of Systems Constitutional: see HPI, chills, fever, malaise EENTM: see HPI Respiratory: no symptoms reported Cardiovascular: no symptoms reported Genitourinary: no symptoms reported Musculoskeletal: no symptoms reported Skin: no symptoms reported Psychiatric/Neurological: No Symptoms Reported Hematologic/Lymphatic: No Symptoms Reported Immunological/Allergic: no symptoms reported Past Sohdwqa-Rlcagj-Wwrgch Hx Seasonal Allergies Seasonal Allergies: No Past Medical History Surgery/Hospitalization HX: MITRAL VALVE STENOSIS AND SUBAORTIC STENOSIS--S/P REPAIRS PT STATES HE HAS HAD A LIVER TRANSPLANT AND IS ON IMMUNE SUPPRESSING MEDS Surgeries: Yes Adenoidectomy, Cardiac, Liver Transplant, Open Heart Surgery, Tonsillectomy Respiratory: No Cardiac: Yes (MITRAL VALVE STENOSIS--S/P REPAIR; SUBAORTIC STENOSIS-S/P REPAIR) Congenital Heart Disease, Hypertension, Valvular Heart Disease Neurological: No Genitourinary: No Gastrointestinal: Yes (BILIARY ATRESIA; S/P KASAI PROCEDURE; S/P LIVER TRANSPLANT) Liver Disease/Jaundice Endocrine: No HEENT: No Cancer: No Psychosocial: No Integumentary: No Blood Disorders: No Physical Exam Vital Signs Vital Signs - First Documented 07/29/21 20:59 Temp 36.7 Pulse 110 Resp 17 B/P (MAP) 106/77 (87) Pulse Ox 97 O2 Delivery Room Air Capillary Refill : Height, Weight, BMI Height: 5'11.00" Weight: 245lbs. oz. 111.255947sf; 32.00 BMI Method:Stated General Appearance: No Apparent Distress, WD/WN, Other (Alert and oriented, well-appearing. No distress.) Eyes: Bilateral Eye Normal Inspection, Bilateral Eye PERRL, Bilateral Eye EOMI HEENT: PERRL/EOMI; No Pharyngeal Erythema; TM Abnormal (L) (left tympanic membrane is slightly erythematous and bulging as compared to the right which has a completely normal appearance); No Tonsillar Exudate, No Tonsillar Enlargement Neck: Full Range of Motion, Normal Inspection; No Lymphadenopathy (L), No Lymphadenopathy (R) Respiratory: No Accessory Muscle Use, No Respiratory Distress Cardiovascular: Normal Peripheral Pulses, Tachycardia Gastrointestinal: Normal Bowel Sounds, Non Tender, Soft Extremity: Normal Capillary Refill, Normal Inspection Neurologic/Psychiatric: Alert, Oriented x3 Skin: Normal Color, Warm/Dry Progress/Results/Core Measures Suspected Sepsis SIRS Temperature: Pulse: Respiratory Rate: Laboratory Tests 07/29/21 21:20: White Blood Count 11.3H Blood Pressure / Mean: Laboratory Tests 07/29/21 21:20: Creatinine 1.21, Platelet Count 290, Total Bilirubin 1.2H 07/29/21 21:41: INR Comment 1.0 Results/Orders Lab Results Laboratory Tests Test 07/29/21 21:20 07/29/21 21:27 07/29/21 21:32 07/29/21 21:41 Range/Units White Blood Count 11.3 H 4.3-11.0 10^3/uL Red Blood Count 4.39 4.30-5.52 10^6/uL Hemoglobin 13.0 L 13.3-17.7 g/dL Hematocrit 38 L 40-54 % Mean Corpuscular Volume 86 80-99 fL Mean Corpuscular Hemoglobin 30 25-34 pg Mean Corpuscular Hemoglobin Concent 34 32-36 g/dL Red Cell Distribution Width 12.3 10.0-14.5 % Platelet Count 290 130-400 10^3/uL Mean Platelet Volume 10.9 9.0-12.2 fL Immature Granulocyte % (Auto) 1 % Neutrophils (%) (Auto) 60 42-75 % Lymphocytes (%) (Auto) 27 12-44 % Monocytes (%) (Auto) 9 0-12 % Eosinophils (%) (Auto) 3 0-10 % Basophils (%) (Auto) 1 0-10 % Neutrophils # (Auto) 6.7 1.8-7.8 10^3/uL Lymphocytes # (Auto) 3.1 1.0-4.0 10^3/uL Monocytes # (Auto) 1.0 0.0-1.0 10^3/uL Eosinophils # (Auto) 0.3 0.0-0.3 10^3/uL Basophils # (Auto) 0.1 0.0-0.1 10^3/uL Immature Granulocyte # (Auto) 0.1 0.0-0.1 10^3/uL Erythrocyte Sedimentation Rate 11 0-15 MM/HR Sodium Level 137 135-145 MMOL/L Potassium Level 4.5 3.6-5.0 MMOL/L Chloride Level 103 98-107 MMOL/L Carbon Dioxide Level 20 L 21-32 MMOL/L Anion Gap 14 5-14 MMOL/L Blood Urea Nitrogen 16 7-18 MG/DL Creatinine 1.21 0.60-1.30 MG/DL Estimat Glomerular Filtration Rate 85 BUN/Creatinine Ratio 13 Glucose Level 189 H 70-105 MG/DL Calcium Level 9.7 8.5-10.1 MG/DL Corrected Calcium 9.3 8.5-10.1 MG/DL Total Bilirubin 1.2 H 0.1-1.0 MG/DL Aspartate Amino Transf (AST/SGOT) 28 5-34 U/L Alanine Aminotransferase (ALT/SGPT) 44 0-55 U/L Alkaline Phosphatase 55 40-136 U/L Total Creatine Kinase 108 30-200 U/L C-Reactive Protein High Sensitivity 0.31 0.00-0.50 MG/DL Total Protein 8.0 6.4-8.2 GM/DL Albumin 4.5 3.2-4.5 GM/DL Procalcitonin 0.05 <0.10 NG/ML Monoscreen NEGATIVE NEGATIVE Influenza Type A (RT-PCR) Not Detected Not Detecte Influenza Type B (RT-PCR) Not Detected Not Detecte SARS-CoV-2 RNA (RT-PCR) Not Detected Not Detecte Urine Color YELLOW Urine Clarity CLEAR Urine pH 6.0 5-9 Urine Specific [place] >=1.030 1.016-1.022 Urine Protein NEGATIVE NEGATIVE Urine Glucose (UA) TRACE H NEGATIVE Urine Ketones NEGATIVE NEGATIVE Urine Nitrite NEGATIVE NEGATIVE Urine Bilirubin NEGATIVE NEGATIVE Urine Urobilinogen 0.2 < = 1.0 MG/DL Urine Leukocyte Esterase NEGATIVE NEGATIVE Urine RBC (Auto) NEGATIVE NEGATIVE Urine RBC NONE /HPF Urine WBC NONE /HPF Urine Crystals PRESENT H /LPF Urine Amorphous Sediment RARE DAWIT URATES H /LPF Urine Bacteria NEGATIVE /HPF Urine Casts NONE /LPF Urine Mucus NEGATIVE /LPF Urine Culture Indicated NO Prothrombin Time 13.4 12.2-14.7 SEC INR Comment 1.0 0.8-1.4 My Orders Orders - RAJAN BROWNING WEB EDITOR Protime With Inr (07/29/21 21:11) Cbc With Automated Diff (07/29/21 21:11) Comprehensive Metabolic Panel (07/29/21 21:11) Hs C Reactive Protein (07/29/21 21:11) Procalcitonin (Pct) (07/29/21 21:11) Ed Iv/Invasive Line Start (07/29/21 21:11) Erythrocyte Sedimentation Rate (07/29/21 21:11) Chest 1 View, Ap/Pa Only (07/29/21 21:11) Influenza A And B By Pcr (07/29/21 21:11) Covid 19 Inhouse Test (07/29/21 21:11) Ua Culture If Indicated (07/29/21 21:11) Blood Culture (07/29/21 21:11) Monotest (07/29/21 21:30) Creatine Kinase (07/29/21 22:05) Vital Signs/I&O 07/29/21 20:59 Temp 36.7 Pulse 110 Resp 17 B/P (MAP) 106/77 (87) Pulse Ox 97 O2 Delivery Room Air Capillary Refill : Departure Impression Primary Impression: Febrile illness Additional Impressions: Immunosuppression History of liver transplant Disposition: 01 HOME, SELF-CARE Condition: Stable Departure-Patient Inst. Decision time for Depature: 22:09 Referrals: AMAN ZEPEDA MD (PCP/Family) Primary Care Physician Patient Instructions: Fever, Adult (DC) Add. Discharge Instructions: 1. The cause of your fever is not entirely clear though it does not seem to be related to rejection. Liver enzymes are normal. Your labs are all normal for that matter. Your chest x-ray is clear. We did draw some blood culture. Your flu Covid and mono test were negative. Your urine was clean. Does not appear to be infected. Call Dr. Aamn Zepeda tomorrow to make an appointment to be seen RAJAN BROWNING APRN Jul 29, 2021 21:20
[2021-07-29 21:38] LABS: BASOPHILS # (AUTO) 0.1 10^3/uL (0.0-0.1); BASOPHILS % (AUTO) 1 % (0-10); EOSINOPHILS # (AUTO) 0.3 10^3/uL (0.0-0.3); EOSINOPHILS % (AUTO) 3 % (0-10); HEMATOCRIT 38 % (40-54); LYMPHOCYTES # (AUTO) 3.1 10^3/uL (1.0-4.0); LYMPHOCYTES % (AUTO) 27 % (12-44); MEAN CORPUSCULAR HEMOGLOBIN 30 pg (25-34); MEAN CORPUSCULAR HGB CONC 34 g/dL (32-36); MEAN CORPUSCULAR VOLUME 86 fL (80-99); MEAN PLATELET VOLUME 10.9 fL (9.0-12.2); MONOCYTES % (AUTO) 9 % (0-12); NEUTROPHILS # (AUTO) 6.7 10^3/uL (1.8-7.8); NEUTROPHILS % (AUTO) 60 % (42-75); PLATELET COUNT 290 10^3/uL (130-400); WHITE BLOOD COUNT 11.3 10^3/uL (4.3-11.0)
[2021-07-29 21:39] LABS: BILIRUBIN,URINE NEGATIVE (NEGATIVE); CLARITY,URINE CLEAR; COLOR,URINE YELLOW; GLUCOSE, URINE (UA) TRACE (NEGATIVE); KETONES,URINE NEGATIVE (NEGATIVE); LEUKOCYTE ESTERASE ,URINE NEGATIVE (NEGATIVE); NITRITE,URINE NEGATIVE (NEGATIVE); PROTEIN,URINE NEGATIVE (NEGATIVE)
[2021-07-29 21:56] LABS: AMORPHOUS SEDIMENT,UR RARE AMOR URATES /LPF; BACTERIA,URINE NEGATIVE /HPF
[2021-07-29 21:57] LABS: ALBUMIN 4.5 GM/DL (3.2-4.5); BILIRUBIN,TOTAL 1.2 MG/DL (0.1-1.0); CALCIUM 9.7 MG/DL (8.5-10.1); CREATININE SERUM 1.21 MG/DL (0.60-1.30); POTASSIUM 4.5 MMOL/L (3.6-5.0)
[2021-07-29 22:04] LABS: PROTHROMBIN TIME PATIENT 13.4 SEC (12.2-14.7)
--- NOTE | 2021-07-29 22:08 | Diagnostic Imaging Report ---
INDICATION: fever COMPARISON: 12/16/2020 FINDINGS: Single frontal view of the chest demonstrates normal heart size and pulmonary vascularity. The lungs are well aerated and clear. No large pleural effusion or pneumothorax is seen. The visualized osseous structures show no acute abnormalities. IMPRESSION: 1. No acute cardiopulmonary process. Dictated by: Dictated on workstation # [id number]
[2021-07-29 22:15] LABS: ERYTHROCYTE SEDIMENTATION RATE 11 MM/HR (0-15)
[2021-07-29] MEDS ORDERED: LACTATED RINGERS 1,000 ML IV SCH (22:45)
[2021-07-29 23:40] VITALS: BP 104/57
== END 2021-07-29 23:40 | disposition home or self-care (01) ==
LOC: EDUNIT# 20:53 → ER 20:55
DX: R50.9 Fever, unspecified (principal); D84.9 Immunodeficiency, unspecified; Z94.4 Liver transplant status; Z20.822 Contact with and (suspected) exposure to COVID-19
CPT/HCPCS: 36415; 71045; 80053; 81000; 82550; 84145; 85025; 85610; 85652; 86141; 86308; 87040; 87636

== ENCOUNTER → 2021-11-27 | Outpatient (CLI) | payer MEDICAID | END | disposition home or self-care (01) | LOC: PREOP 07:35 | PROVIDERS: ATTEND Surgery | DX: Z01.818 Encounter for other preprocedural examination (principal) ==

== ENCOUNTER 2021-12-30 08:13 | Day surgery (SDC) | payer MEDICAID ==
[~2021-12-30] VITALS: Ht 180 cm; Wt 113.8 kg
[~2021-12-30 08:13] MED LIST changes: +METF-397 PO; +PANT40TA52 PO; +TACR1CAP8 PO
[2021-12-30] MEDS ORDERED: LACTATED RINGERS 1,000 ML IV STA (08:15)
[2021-12-30 08:30] VITALS: BP 120/83
[2021-12-30] MEDS ORDERED: PROPOFOL INJECTION 50 ML IV ONE ×2 (09:01→09:16)
[2021-12-30 09:30] VITALS: BP 98/55
--- NOTE | 2021-12-30 09:31 | Progress Note-Post Operative ---
Post-Operative Progess Note Surgeon (s)/Shipping/Receiving Manager (s) Surgeon JOELLE MAYO DO Shipping/Receiving Manager: QUINTIN Iyer Pre-Operative Diagnosis Chronic diarrhea Post-Operative Diagnosis Internal hemorrhoids Procedure & Operative Findings Date of Procedure 12/30/21 Procedure Performed/Findings Colonoscopy PROCEDURE NOTE: After informed consent was obtained, the patient was brought to the endoscopy suite, placed in bed in left lateral decubitus position. He was administered IV sedation by the PUNCH BOX TENDER who then monitored his vitals the entire time, heart rate, blood pressure and pulse ox and the scope was inserted, pushed all the way to about 150 cm and pushed into the cecum, took a picture of appendiceal orifice and then got into the terminal ileum; which looked normal and picture take. Started to slowly withdraw the scope insufflating to look circumferentially at the gillis starting in the cecum, up the ascending colon to the hepatic flexure, then down the transverse colon, splenic flexure, into the descending colon down in the sigmoid and then into the rectal vault and retroflexed the scope. Took picture of the internal hemorrhoids. I also took pictures of the entire colon. I did not see any inflammation, ulcers or reason for his chronic diarrhea. Rectum was a little bit friable but still looked normal. The patient tolerated the procedure. He was recovered in endoscopy suite. Recommended for repeat colonoscopy in 10 years. Anesthesia Type IV sedation by PUNCH BOX TENDER Estimated Blood Loss Estimated blood loss (mL): scant Specimens/Packing Specimens Removed none JOELLE MAYO DO Dec 30, 2021 09:30
--- NOTE | 2021-12-30 09:31 | Endoscopy Discharge Instruct ---
Endo Procedure/Findings Findings 1.: Internal Hemorrhoids Discharge Instructions - Activity: You might feel a little sleepy until tomorrow. This is due to the me dicine you received to relax you. Until tomorrow, you should: NOT drive a car, operate machinery or power tools. NOT drink any alcoholic beverages. NOT make any important decisions or sign importortant papers. Do not return to work until tomorrow, unless otherwise instructed. Resume previous activities tomorrow. Diet: Start by taking liquids. If you tolerate liquids, advance to solid food. 1.: Colonscopy in 10 years Notify Physician - If you experience excessive bleeding, unusual abdominal pain, fever, or chest pain, contact your doctor immediately. JOELLE MAYO DO Dec 30, 2021 09:31
[2021-12-30 09:34] VITALS: BP 93/47
[2021-12-30 09:50] VITALS: BP 104/78
--- NOTE | 2021-12-30 11:14 | Anesthesia-General Post-Op ---
MAC Patient Condition Mental Status/LOC: Same as Preop Cardiovascular: Satisfactory Nausea/Vomiting: Absent Respiratory: Satisfactory Pain: Controlled Complications: Absent Post Op Complications Complications None Follow Up Care/Instructions Patient Instructions None needed. Anesthesiology Discharge Order Discharge Order Patient is doing well, no complaints, stable vital signs, no apparent adverse anesthesia problems. No complications reported per nursing. KP DE LA ROSA CRNA Dec 30, 2021 11:14
== END 2021-12-30 10:03 | disposition home or self-care (01) ==
LOC: ENDO 08:13
PROVIDERS: ATTEND Surgery
DX: K64.8 Other hemorrhoids (principal); K52.9 Noninfective gastroenteritis and colitis, unspecified; E66.9 Obesity, unspecified; Z68.35 Body mass index [BMI] 35.0-35.9, adult
CPT/HCPCS: 82947

== ENCOUNTER 2023-02-19 09:47 | Outpatient (RCR) | payer MEDICAID ==
[2023-02-19 10:10] LABS: BASOPHILS # (AUTO) 0.1 10^3/uL (0.0-0.1); BASOPHILS % (AUTO) 1 % (0-10); EOSINOPHILS # (AUTO) 0.2 10^3/uL (0.0-0.3); EOSINOPHILS % (AUTO) 2 % (0-10); HEMATOCRIT 44 % (40-54); HEMOGLOBIN 14.7 g/dL (13.3-17.7); LYMPHOCYTES # (AUTO) 3.6 10^3/uL (1.0-4.0); LYMPHOCYTES % (AUTO) 31 % (12-44); MEAN CORPUSCULAR HEMOGLOBIN 28 pg (25-34); MEAN CORPUSCULAR HGB CONC 33 g/dL (32-36); MEAN CORPUSCULAR VOLUME 85 fL (80-99); MEAN PLATELET VOLUME 10.4 fL (9.0-12.2); MONOCYTES # (AUTO) 1.1 10^3/uL (0.0-1.0); MONOCYTES % (AUTO) 9 % (0-12); NEUTROPHILS # (AUTO) 6.7 10^3/uL (1.8-7.8); NEUTROPHILS % (AUTO) 57 % (42-75); PLATELET COUNT 275 10^3/uL (130-400); WHITE BLOOD COUNT 11.7 10^3/uL (4.3-11.0)
[2023-02-19 10:25] LABS: ALANINE AMINOTRANSFERASE 34 U/L (0-55); ALBUMIN 4.7 GM/DL (3.2-4.5); ALKALINE PHOSPHATASE 67 U/L (40-136); BUN/CREATININE RATIO 16; CALCIUM 9.5 MG/DL (8.5-10.1); CARBON DIOXIDE 22 MMOL/L (21-32); CHLORIDE 103 MMOL/L (98-107); CREATININE SERUM 1.24 MG/DL (0.60-1.30); GFR ESTIMATED 81; GLUCOSE 215 MG/DL (70-105); POTASSIUM 4.4 MMOL/L (3.6-5.0); SODIUM 137 MMOL/L (135-145); TOTAL PROTEIN 8.4 GM/DL (6.4-8.2)
[2023-02-20 04:37] LABS: FK506 7.5 ng/mL
== END 2023-03-17 | disposition home or self-care (01) ==
LOC: EDSTATUS 09:47 → LAB 09:47
PROVIDERS: ATTEND Nurse Practitioner Adult Health
DX: Z94.4 Liver transplant status (principal); Z79.899 Other long term (current) drug therapy
CPT/HCPCS: 36415; 80053; 80197; 82306; 82977; 85025